=== PATIENT | female | born 1950 | race Caucasian/White ===

== ENCOUNTER 2017-10-19 04:32 | Inpatient (IN) | payer MEDICARE, BC, SELFPAY ==
[2017-10-19] VITALS (28 sets, daily range): BP systolic 83–177; BP diastolic 57–99; PULSE 58–709; RESP 11–24; TEMP 36.1–36.9; O2SAT 95–100; BMI 28.4; BMI 27.6; BMI 27.7
--- NOTE | 2017-10-19 04:47 | RAD_ITS ---
STUDY: X-RAY CHEST REASON FOR EXAM: Female, 67 years old. SOB TECHNIQUE: Single frontal view of the chest. COMPARISON: None. FINDINGS: The lungs are clear and expanded. There is no demonstrated pleural abnormality. Normal size heart. Normal mediastinum and dimitrios. Normal visualized pulmonary arteries. Normal visualized aortic arch and descending thoracic aorta. Normal visualized thoracic spine. Normal visualized ribs, clavicles, and shoulders. There is no demonstrated abnormality of the visualized soft tissue structures of the upper abdomen. RAD/Chest 1 View (Portable) IMPRESSION: Normal x-ray examination of the chest. Electronically Signed: Marecll Cordon MD at 5:18 EDT Tel , Service support ,
--- NOTE | 2017-10-19 04:47 | EKG12_ITS ---
Test Reason : CP Blood Pressure : / mmHG Vent. Rate : 129 BPM Atrial Rate : 312 BPM P-R Int : 000 ms QRS Dur : 098 ms QT Int : 286 ms P-R-T Axes : 000 067 -49 degrees QTc Int : 418 ms Atrial flutter with variable A-V block Nonspecific ST and T wave abnormality Abnormal ECG Confirmed by WANG KNIGHT, QUETA ([id number]), commercial production editor KIP GARCIA ([id number]) on 10/24/2017 3:16:19 PM Referred By: CARLOS Confirmed By:QUETA PIÑA MD
[2017-10-19] MEDS: dilTIAZem 25 MG/5 ML Vial 20 MG IV BOLUS ×3 (04:54→14:45)
[2017-10-19 05:08] LABS: Absolute Lymphocyte Count 2.34 X10^3/ul (0.83-4.51); Absolute Neutrophil Count 2.5 X10^3/uL (2.0-7.7); Basophil# 0.06 X10^3/uL; Basophil% 1.1 % (0-1); Eosinophil# 0.17 X10^3/uL; Hematocrit 43.1 % (37-47); Hemoglobin 14.5 g/dl (12.0-15.0); Lymphocyte # 2.34 X10^3/ul (4.0); Lymphocyte % 41.2 % (19-41); Mean Corp Hgb Conc 33.6 g/gl (32-36); Mean Corpuscular Hgb 31.9 pg (27.0-32.0); Mean Corpuscular Volume 94.7 fL (81-99); Mean Platelet Vol. 10.5 fl (6.2-12.0); Monocyte# 0.63 X10^3/uL; Monocyte% 11.1 % (0-10); Neutrophil # 2.47 X10^3/uL (2.7-7.7); Neutrophil % 43.4 % (47-70); POSITIVE COUNT NO; POSITIVE DIFFERENTIAL NO; POSITIVE MORPHOLOGY NO; Platelet Count 212 K/mm3 (150-450); RBC Distribution Width CV 13.4 % (11.6-14.6); RBC Distribution Width SD 44.5 fl (35.1-43.9); Red Blood Count 4.55 M/mm3 (4.2-5.4); White Blood Count 5.7 K/mm3 (4.4-11.0)
[2017-10-19] MEDS: Aspirin 81 MG TAB.CHEW 324 MG PO (05:11)
[2017-10-19 05:22] LABS: Anion Gap 9 (5-15); BUN 19 mg/dL (7-18); BUN/Creat Ratio 19.6 RATIO (10-20); Calcium,Total 9.1 mg/dL (8.5-10.1); Chloride 110 mmol/L (98-107); Creatinine, Serum 0.97 mg/dL (0.55-1.02); EST Glomerular Filtration Rate 61 mL/min (>60); Est Glom Filt Rate - Afr Amer 74 mL/min (>60); Estimated Creatinine Clearance 52.03 ml/min; Glucose 130 mg/dL (74-106); Potassium 3.9 mmol/L (3.5-5.1); Sodium Level 144 mmol/L (136-145)
--- NOTE | 2017-10-19 05:40 | ED.DCSUM_ITS ---
- ER Visit Summary Date of Service: 10/19/17 Chief Complaint: Chest pain History of Present Illness: The patient is a 67 F with a history of hypertension and palpitations who presents with chest pains and palpitations. She woke about an hour before presentation here with a sensation of palpitations and her heart racing. She did feel short of breath. She had a mild chest discomfort more of a tightness. She reports nausea without vomiting. No diaphoresis. He has had palpitations before for which she takes atenolol but no history of dysrhythmia atrial fibrillation atrial flutter. Physical Examination: Initial heart rate 140 Moist mucous membranes Heart irregularly irregular and tachycardic Lungs are clear without rales rhonchi or wheezes Abdomen soft 2+ radial pulses extremities nontender without edema Alert Test Results: EKG shows atrial flutter with variable conduction at a rate of 129. Repeat EKG shows atrial flutter with variable conduction at a rate of 106. Laboratory studies unremarkable with a negative troponin. Chest x-ray shows no acute process, normal. Emergency Department Course and Treatment: Patient was given aspirin. She was given IV Cardizem. On reevaluation her heart rate is 90-100. She was discussed with the hospitalist. She will be admitted for further workup and management. Treatment Plan: [] Disposition: Admit Impression: Atrial flutter with variable conduction and rapid ventricular rate This note was generated with [employer] dictation software. It may contain incorrect words, spelling, and punctuation that were not noted in review of the chart prior to signing ED Disposition - Plan for ED Patient: Chief Complaint: Chest Pain Referrals: Skye Caruso MD [Primary Care Provider] -
--- NOTE | 2017-10-19 05:51 | EKG12_ITS ---
Test Reason : REPEAT Blood Pressure : / mmHG Vent. Rate : 106 BPM Atrial Rate : 153 BPM P-R Int : 000 ms QRS Dur : 092 ms QT Int : 350 ms P-R-T Axes : 000 054 -15 degrees QTc Int : 464 ms Atrial fibrillation / flutter with premature ventricular or aberrantly conducted complexes Abnormal ECG Confirmed by WANG KNIGHT, QUETA ([id number]), editorial manager KIP GARCIA ([id number]) on 10/24/2017 3:23:33 PM Referred By: CARLOS Confirmed By:QUETA PIÑA MD
[2017-10-19] MEDS: Metoprolol Tartrate 5 MG/5 ML Vial IV ×3 (06:32→06:54)
[2017-10-19] MEDS: Rivaroxaban 20 MG Tablet PO (06:36)
--- NOTE | 2017-10-19 06:45 | PCM.HP.STD ---
Problem List (1) New-onset atrial fib with RVR Status: Acute History of Present Illness Date of Admission: 10/19/17 Chief Complaint: New-onset atrial fib with RVR The patient is a 67 year old F was seen in the emergency room at [facility] with a chief complaint of severe palpitations after waking at approximately 3 AM this morning. Patient said that she had a sharp discomfort in the middle of her chest, it did not radiate into her neck jaw or arm. Patient denied any shortness of breath. When the patient arrived in the emergency room, she was in atrial fibrillation with an uncontrolled ventricular response at 140, she was given 1 dose of Cardizem IV 20 mg with some slowing of her heart rate. EKG revealed atrial fibrillation without evidence of ischemic changes, chest x-ray showed no evidence of congestive heart failure. Labs were obtained, white blood cell count was normal, BUN was 19, glucose is 130, and troponin was 0.02. Cardiology was contacted, they advised administering IV Toprol 5 mg ?3 and placing the patient on a increased dose of atenolol when she is admitted to the floor. 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 Lives: Spouse/ Significant Other Smoking Status: Former smoker Tobacco Use: Non-smoker Alcohol: None Drugs: None - *Family History Maternal History Items: No pertinent history Paternal History Items: Cancer - prostate Review of Systems Constitutional: Denies: Anorexia, Chills, Fever, Night Sweats, Malaise, Weakness, Weight Change Eyes: Denies: Blurred vision, Cataracts, Conjunctivae Inflammation, Double vision, Drainage, Eyelid Inflammation, Redness HEENT: Denies: Difficulty Hearing, Difficulty Swallowing, Dysphasia, Ear Pain, Eye Pain, Hearing Changes, Nasal bleeding, Nasal Congestion, Post Nasal Drip Cardiovascular: Reports: Palpitations. Denies: Chest Pain, Claudication, Chest Pressure, Chest Tightness, Edema, Heaviness, Light Headedness, Orthopnea Respiratory: Denies: Cough, Hemoptysis, Pleuritic Pain, Shortness of Breath, Shortness of breath at rest, Shortness of breath upon exertion, Sputum production Gastrointestinal: Denies: Abdominal Pain, Constipation, Diarrhea, Hematemesis, Hematochezia, Nausea, Melena, Vomiting Genitourinary: Denies: Dysuria, Frequency, Hematuria, Hesitancy, Urgency Gynecological: Denies: Breast symptoms Musculoskeletal: Denies: Back Pain, Foot Pain, Hand Pain, Joint Pain, Joint stiffness, Joint swelling, Joint Tenderness, Leg Pain Skin: Denies: Dryness, Pruritis, Rash Neurological: Denies: Blurred vision, Double vision, Slurred speech, Difficulty swallowing, Focal weakness, Numbness, Tingling Psychiatric: Denies: Anxiety, Depression, Homicidal Ideations, Suicidal Ideations Endocrine: Denies: Change in Body Habitus, Heat/ Cold Intolerance, Polydipsia, Polyuria Hematologic/ Lymphatic: Denies: Adenopathy, Anemia, Easy Bruising, Easy Bleeding, Petechiae, Purpura VTE Information - Inpt Only VTE Present on Admission: No VTE Mechan Device Prophylaxis: None VTE Pharm Prophylaxis ordered?: No Reason prophylaxis not ordered:: Medical Contraindication - patient will be placed on Xarelto Patient Problems: Active and Suspected Problems New-onset atrial fib with RVR (Acute) - Physical Exam General: Alert, Oriented x3, Cooperative, No apparent distress, Well developed, Well nourished HEENT: Atraumatic, PERRLA, EOMI, Normocephalic Oral: Moist Mucosa Neck: Supple, No JVD, Negative Carotid Bruits, No Nuchal Rigidity, Trachea Midline, Thyroid Normal Size and Texture Lungs: Clear to auscultation, Normal air movement, No rhonchi, No wheeze, No rales Cardiovascular: No murmurs, PMI Normal, Irregular Rate, No rub noted Abdomen: Bowel Sounds Present, Soft, Non Tender, Non-Distended, No hernias noted Extremities: No clubbing, No cyanosis, No edema, Capillary Refill Less than 3 Seconds Skin: No rashes, No breakdown Musculoskeletal: No Tenderness to Palpation of Joints or Extremities, No Muscle Wasting Neurological: Cranial nerves II-XII grossly intact, Neuro grossly intact, Sensory exam intact to light touch and pain, Coordination normal Psych/Mental Status: Normal Affect, Appropriate, Alert and oriented to time, place, person, mood and affect Vital Signs Temp Pulse Resp BP Pulse Ox 98.5 F 128 H 12 159/98 H 99 10/19/17 06:11 10/19/17 06:11 10/19/17 06:11 10/19/17 06:11 10/19/17 06:11 Assessment/Plan Active and Suspected Problems New-onset atrial fib with RVR (Acute) #1 new onset atrial fibrillation with RVR-patient will be admitted to PCU, atenolol will be increased to 50 mg daily-patient took a dose of 37.5 mg of atenolol before she came in the ER early this morning-patient will be given IV metoprolol in the emergency room prior to admission to PCU, she will be placed on Xarelto 20 mg daily, she will be seen by cardiology, she will have an echocardiogram. #2 hypertension Code Visit Inpatient E&M: 17113 Init Hosp L3
--- NOTE | 2017-10-19 06:54 | HP.PCM_ITS ---
Problem List (1) New-onset atrial fib with RVR Status: Acute History of Present Illness Date of Admission: 10/19/17 Chief Complaint: New-onset atrial fib with RVR The patient is a 67 year old F was seen in the emergency room at [facility] with a chief complaint of severe palpitations after waking at approximately 3 AM this morning. Patient said that she had a sharp discomfort in the middle of her chest, it did not radiate into her neck jaw or arm. Patient denied any shortness of breath. When the patient arrived in the emergency room, she was in atrial fibrillation with an uncontrolled ventricular response at 140, she was given 1 dose of Cardizem IV 20 mg with some slowing of her heart rate. EKG revealed atrial fibrillation without evidence of ischemic changes, chest x-ray showed no evidence of congestive heart failure. Labs were obtained, white blood cell count was normal, BUN was 19, glucose is 130, and troponin was 0.02. Cardiology was contacted, they advised administering IV Toprol 5 mg ?3 and placing the patient on a increased dose of atenolol when she is admitted to the floor. 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 Lives: Spouse/ Significant Other Smoking Status: Former smoker Tobacco Use: Non-smoker Alcohol: None Drugs: None - *Family History Maternal History Items: No pertinent history Paternal History Items: Cancer - prostate Review of Systems Constitutional: Denies: Anorexia, Chills, Fever, Night Sweats, Malaise, Weakness , Weight Change Eyes: Denies: Blurred vision, Cataracts, Conjunctivae Inflammation, Double vision, Drainage, Eyelid Inflammation, Redness HEENT: Denies: Difficulty Hearing, Difficulty Swallowing, Dysphasia, Ear Pain, Eye Pain, Hearing Changes, Nasal bleeding, Nasal Congestion, Post Nasal Drip Cardiovascular: Reports: Palpitations. Denies: Chest Pain, Claudication, Chest Pressure, Chest Tightness, Edema, Heaviness, Light Headedness, Orthopnea Respiratory: Denies: Cough, Hemoptysis, Pleuritic Pain, Shortness of Breath, Shortness of breath at rest, Shortness of breath upon exertion, Sputum production Gastrointestinal: Denies: Abdominal Pain, Constipation, Diarrhea, Hematemesis, Hematochezia, Nausea, Melena, Vomiting Genitourinary: Denies: Dysuria, Frequency, Hematuria, Hesitancy, Urgency Gynecological: Denies: Breast symptoms Musculoskeletal: Denies: Back Pain, Foot Pain, Hand Pain, Joint Pain, Joint stiffness, Joint swelling, Joint Tenderness, Leg Pain Skin: Denies: Dryness, Pruritis, Rash Neurological: Denies: Blurred vision, Double vision, Slurred speech, Difficulty swallowing, Focal weakness, Numbness, Tingling Psychiatric: Denies: Anxiety, Depression, Homicidal Ideations, Suicidal Ideations Endocrine: Denies: Change in Body Habitus, Heat/ Cold Intolerance, Polydipsia, Polyuria Hematologic/ Lymphatic: Denies: Adenopathy, Anemia, Easy Bruising, Easy Bleeding , Petechiae, Purpura VTE Information - Inpt Only VTE Present on Admission: No VTE Mechan Device Prophylaxis: None VTE Pharm Prophylaxis ordered?: No Reason prophylaxis not ordered:: Medical Contraindication - patient will be placed on Xarelto Patient Problems: Active and Suspected Problems New-onset atrial fib with RVR (Acute) - Physical Exam General: Alert, Oriented x3, Cooperative, No apparent distress, Well developed, Well nourished HEENT: Atraumatic, PERRLA, EOMI, Normocephalic Oral: Moist Mucosa Neck: Supple, No JVD, Negative Carotid Bruits, No Nuchal Rigidity, Trachea Midline, Thyroid Normal Size and Texture Lungs: Clear to auscultation, Normal air movement, No rhonchi, No wheeze, No rales Cardiovascular: No murmurs, PMI Normal, Irregular Rate, No rub noted Abdomen: Bowel Sounds Present, Soft, Non Tender, Non-Distended, No hernias noted Extremities: No clubbing, No cyanosis, No edema, Capillary Refill Less than 3 Seconds Skin: No rashes, No breakdown Musculoskeletal: No Tenderness to Palpation of Joints or Extremities, No Muscle Wasting Neurological: Cranial nerves II-XII grossly intact, Neuro grossly intact, Sensory exam intact to light touch and pain, Coordination normal Psych/Mental Status: Normal Affect, Appropriate, Alert and oriented to time, place, person, mood and affect Vital Signs Temp Pulse Resp BP Pulse Ox 98.5 F 128 H 12 159/98 H 99 10/19/17 06:11 10/19/17 06:11 10/19/17 06:11 10/19/17 06:11 10/19/17 06:11 Assessment/Plan Active and Suspected Problems New-onset atrial fib with RVR (Acute) #1 new onset atrial fibrillation with RVR-patient will be admitted to PCU, atenolol will be increased to 50 mg daily-patient took a dose of 37.5 mg of atenolol before she came in the ER early this morning-patient will be given IV metoprolol in the emergency room prior to admission to PCU, she will be placed on Xarelto 20 mg daily, she will be seen by cardiology, she will have an echocardiogram. #2 hypertension Code Visit Inpatient E&M: 41588 Init Hosp L3
--- NOTE | 2017-10-19 07:28 | CON.PCM_ITS ---
Reason for Consult Date of Consultation: 10/19/17 Reason for Consultation: Rapid heart rate. History of Present Illness: The patient is a 67 year old F with no previous cardiac history other than possibly hypertension who presented to the emergency room today after she woke up with palpitations. She has been under tremendous amount of stress at home due to family issues. In the emergency room she was noted to be in atrial fibrillation with rapid ventricular response rate she was administered intravenous Cardizem and I was called for further input. She denied any chest heaviness suggestive of angina has not had any previous episodes of palpitations and no dizziness or diaphoresis. She recently saw her primary care physician who increased the dose of her atenolol. She has been otherwise doing well. She has had no neck arm or jaw discomfort suggest angina. At this time she does not really feel her palpitations as much. 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 Denies: Chest Discomfort, Shortness of Breath, Orthopnea, PND, Peripheral Edema, Lightheadedness, Dizziness, Near Syncope, Syncope Respiratory: Denies: Cough, Sputum Production, Hemoptysis Gastrointestinal: Denies: Hematemesis, Hematochezia, Melena Genitourinary: Denies: Dysuria, Hematuria Skin: Denies: Rash Subjectve: Pleasant lady in no apparent distress. Objective: Vital Signs Temp Pulse Resp BP Pulse Ox 98.5 F 127 H 14 149/90 H 99 10/19/17 06:11 10/19/17 06:54 10/19/17 06:54 10/19/17 06:54 10/19/17 06:54 Oxygen Flow Rate (L/min) 2 Oxygen Delivery Method Nasal Cannula General: Awake, Alert, Oriented x 3 HEENT: PERRL, EOMI, Sclera Non Icteric Neck: Supple, Good ROM, No Lymph Node Enlargement Lungs: Clear to auscultation Cardiovascular: Irregular Rhythm, Normal S1, Normal S2, No Murmurs, No Rubs, No Gallops Vascular: No Carotid Bruits, Normal Femoral Pulses, Normal Radial Pulses, Normal Dorsalis Pedal Pulse, Normal Posterior Tibial Pulses Abdomen: Bowel Sounds Present, Soft, Non Tender, No HSM, No Organomegaly Extremities: No Cyanosis, No Clubbing, No edema Neurological: No Focal Motor or Sensory Deficit Rhythm: EKG: Atrial fibrillation with rapid ventricular response rate. Assessment/Plan 1. Atrial fibrillation with rapid ventricular response rate-probably recent onset. She presents with palpitations and is noted to be in atrial for ablation with rapid ventricular response rate. My recommendation would be for us to slow her down with intravenous Cardizem or metoprolol and to resume her atenolol at a higher dose. An echocardiogram should be performed to assess her left ventricular function. Cardiac enzymes should also be obtained. Depending on her response to the above increase dose further recommendations will be made. She may be a candidate for early cardioversion via a MADELEINE guided approach. I have discussed the above with her and her and they understand and agreed to proceed. Thank you for allowing me to participate in the care of your patient. Please don't hesitate to call if any issues arise
[2017-10-19] MEDS: Atenolol 50 MG Tablet PO (08:44)
--- NOTE | 2017-10-19 09:23 | PN_ITS ---
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 She also complained of discomfort in the substernal area and there was no radiation of the pain and she denied any diaphoresis or shortness of breath. EKG in the emergency room showed atrial fibrillation with rapid ventricular response at 140 bpm. She was given a 20 mg bolus of Cardizem with some improvement in the rate. Vital signs at presentation to the emergency room were temperature 98.5, pulse rate 140, blood pressure 162/88, respiratory rate 14 and she was 98% saturated on room air. CBC was unremarkable. Potassium was 3.9 and the BUN was 19 with a creatinine of 0.97. Random blood sugar was 130. Troponin was less than 0.02. Chest x-ray showed pulmonary vascular congestion with cephalization but no pleural effusions and no infiltrates. She was admitted to a monitored bed and started and Atenolol was increased to 50 mg daily. She was started on Xarelto. Consult was ordered with Dr. Thapa. Dr. Thapa recommended we increase the atenolol as tolerated and use intravenous Cardizem and Lopressor to slow her down. Depending on her response she may be a candidate for early cardioversion if MADELEINE shows no clot in the left atrial appendage. Current heart rate is still in the 120s. Blood pressure is 138/89 and the respiratory rate is 11 with a pulse ox of 98% on room air. Has been taking Ambien at bedtime for 15-20 years. Admits to increased stress recently. Has never had AF in past but has irregular heart beat. Denies CP, SOB today. No lightheadedness. Has never been on an SSRI or other medication to treat anxiety or depression. Has never seen a SW, psychologist or psychiatrist. - Physical Exam General: Alert, Oriented x3, Cooperative, No apparent distress HEENT: Atraumatic, PERRLA, EOMI Oral: Moist Mucosa Neck: Supple, No JVD, Negative Carotid Bruits, No Nodes, Trachea Midline, - - Brisk carotid upstroke with good pulse volume Lungs: Clear to auscultation, Normal air movement Cardiovascular: Normal S1, Normal S2, No murmurs, Irregular Rate - Current heart rate is 130., No rub noted, No Gallop, Tachycardic Abdomen: Bowel Sounds Present, Soft, Non Tender, Non-Distended Extremities: No clubbing, No cyanosis, No edema, Capillary Refill Less than 3 Seconds, No Calf Tenderness, Peripheral Pulses Normal Skin: No rashes, No breakdown Neurological: Cranial nerves II-XII grossly intact, Neuro grossly intact Psych/Mental Status: Normal Affect, Appropriate Vital Signs Temp Pulse Resp BP Pulse Ox 96.9 F L 129 H 11 L 138/89 H 98 10/19/17 08:25 10/19/17 08:25 10/19/17 08:25 10/19/17 08:25 10/19/17 08:25 Oxygen Flow Rate (L/min) 2 Oxygen Delivery Method Room Air Weight: 166 lb 7.184 oz Body Mass Index (BMI) 27.6 Medical Necessity - Tobacco Use Smoking Status: Former smoker Tobacco Use: Non-smoker Assessment/Plan Active and Suspected Problems New-onset atrial fib with RVR (Acute) Impressions 1. new onset AF with RVR 2. HTN 3. anxiety 4. single kidney - donated to her HR remains uncontrolled Will give another 20 mg bolus of Cardizem and start Cardizem CD 120 mg daily. Check a mag and supplement the potassium to keep it at 4 or above. continue xarelto ECHO ordered. Code Visit Procedures: 59677 Prolonged InPt Service; first hour
[2017-10-19 10:19] LABS: AST(SGOT) 32 U/L (15-37); Alanine Aminotransfer ALT/SGPT 34 U/L (13-56); Albumin, Serum 3.8 g/dL (3.2-5.0); Alkaline Phosphatase 167 U/L (45-117); Bilirubin, Direct 0.13 mg/dL (0.00-0.30); Cholesterol 199 mg/dL (200); Globulin 3.6 g/dL (2.2-4.2); High Density Lipoprotein 61 mg/dL; Magnesium 1.9 mg/dL (1.6-2.6); Protein, Total 7.4 g/dL (6.4-8.2); Triglycerides 122 mg/dL; Very Low Density Lipoprotein 24 mg/dL (5-40)
[2017-10-19] MEDS: dilTIAZem CD 120 MG Capsule PO (10:55)
--- NOTE | 2017-10-19 10:55 | CASEMGMT ---
See DAE CM Assessment Link. DC Plan: Home. Pt is independent, is able to assist with driving if needed. -Has prescription coverage and uses [facility] pharmacy. Started on Xarelto- Pt has [facility] Part D prescription coverage . -Called to verify Xarelto coverage- spoke with ofelia [employer]ee rep. -Cost of medication is $417.77 but pt will have only $42.00 copay if uses preferred pharmacy ([facility] or [facility]) [facility] is not a [employer] preferred per rep. -Cost of Mail order 90 day supply is $116.00. -Xarelto savings card (first 30 days no cost) given to pt and explained along with above information. Pt states she has not used mail order service before, but will call [facility] on dc to begin process. No further questins. was in room and also has good understanding. Diane GARCIA RN ACM
[2017-10-19] MEDS: LORazepam 1 MG Tablet PO (11:53)
[2017-10-19] MEDS: 0.9% NaCl Peripheral Flush Adult/Peds IV (18:45)
[2017-10-19] MEDS: Zolpidem Tartrate 5 MG Tablet PO (22:41)
[2017-10-20] VITALS (12 sets, daily range): BP systolic 88–122; BP diastolic 43–71; PULSE 38–114; RESP 12–22; TEMP 36.7–37.1; O2SAT 95–99
[2017-10-20 05:18] LABS: Anion Gap 7 (5-15); BUN 22 mg/dL (7-18); BUN/Creat Ratio 22.3 RATIO (10-20); Chloride 110 mmol/L (98-107); Creatinine, Serum 0.99 mg/dL (0.55-1.02); EST Glomerular Filtration Rate 60 mL/min (>60); Est Glom Filt Rate - Afr Amer 72 mL/min (>60); Estimated Creatinine Clearance 50.98 ml/min; Glucose 99 mg/dL (74-106); Magnesium 2.2 mg/dL (1.6-2.6); Potassium 4.3 mmol/L (3.5-5.1); Sodium Level 142 mmol/L (136-145)
--- NOTE | 2017-10-20 05:55 | EKG12_ITS ---
Test Reason : PRE-OP Blood Pressure : / mmHG Vent. Rate : 051 BPM Atrial Rate : 051 BPM P-R Int : 152 ms QRS Dur : 086 ms QT Int : 426 ms P-R-T Axes : 055 051 034 degrees QTc Int : 392 ms Sinus bradycardia with sinus arrhythmia Otherwise normal ECG Confirmed by WANG KNIGHT, QUETA ([id number]), publishing editor KIP GARCIA ([id number] on 10/24/2017 3:48:33 PM Referred By: JOSE MIGUEL Confirmed By:QUETA PIÑA MD
--- NOTE | 2017-10-20 05:55 | ECHOD_ITS ---
Reason For Study: A. fib/flutter Procedure This was a 2D Doppler, Color Flow transthoracic echocardiogram. Exam performed portable in ICU/CCU. Left Ventricle Normal LV size. The estimated ejection fraction is 55 %. Normal diastology for age. No regional wall motion abnormalities noted. Right Ventricle Normal RV size. Normal systolic function. Atria The left atrium is mildly enlarged. Normal right atrium. Mitral Valve Mild diffuse mitral valve thickening. Mild (1+) eccentric mitral valve insufficiency. Tricuspid Valve Normal tricuspid valve. Mild (1+) tricuspid valve insufficiency. Aortic Valve Trisinus/trileaflet aortic valve. Pulmonic Valve Normal pulmonic valve. Great Vessels Normal aortic root. The pulmonary artery is normal size. Normal inferior vena cava. Pericardium/Pleural No pericardial effusion. MMode/2D Measurements & Calculations LVIDd: 4.5 cm IVSd: 0.85 cm Ao root diam: 2.5 cm LVIDs: 2.8 cm LVPWd: 0.88 cm LA dimension: 4.1 cm RVDd: 3.4 cm FS: 38.9 % LAV(MOD-bp): 65.0 ml EDV(MOD-sp4): 76.5 ml EDV(MOD-sp2): 67.9 ml LAV(MOD-bp) Indexed: 35.5 ml/m2 ESV(MOD-sp4): 27.6 ml EF(MOD-sp2): 54.4 % LAV(MOD-sp2): 54.1 ml EF(MOD-sp4): 64.0 % LAV(MOD-sp4): 71.8 ml SV(MOD-sp4): 48.9 ml SV(MOD-sp2): 37.0 ml LA A4 area: 23.2 cm2 RA A4 area: 19.0 cm2 Doppler Measurements & Calculations MV E max marcin: 57.3 cm/sec Lat Peak E' Marcin: 6.7 cm/sec Med Peak E' Maricn: 8.9 cm/sec MV A max marcin: 30.2 cm/sec E/E' lat: 8.6 E/E' med: 6.4 MV E/A: 1.9 Ao V2 max: 123.4 cm/sec LV V1 max: 94.3 cm/sec PA V2 max: 72.3 cm/sec Ao max P.1 mmHg LV V1 max P.6 mmHg TR max marcin: 251.0 cm/sec TR max P.5 mmHg Interpretation Summary Normal LV size. The estimated ejection fraction is 55 %. Normal diastology for age. Mild (1+) eccentric mitral valve insufficiency. Mild (1+) tricuspid valve insufficiency. Ordering Physician: Tanvir Rodriguez Referring Physician: Skye Caruso M.D. Performed By: Christina Sheth RDCS
--- NOTE | 2017-10-20 06:26 | PCM.PROGNOTE ---
Patient Problems: Active and Suspected Problems New-onset atrial fib with RVR (Acute) Subjective: Currently on atenolol 50 mg daily and a Cardizem infusion at 5 mg/h. Heart rate has been in the 40s the past few hours. It increases when she is awake. There is a high anxiety component here. She is on Xarelto for anticoagulation. The plan is for MADELEINE with cardioversion today. Blood pressure has ranged from 83/63 to 106/59 for the past 12 hours. Pulse ox is 95-97% on room air. Fluid balance is -242 since admission. All lab is personally reviewed. Electrolytes are within normal limits and the potassium is 4.3 today. BUN is 22 with a creatinine of 0.99. Serial troponins were negative. Lipid panel shows a total cholesterol of 199 with an LDL of 114 and HDL of 61. Triglycerides are 122. - Physical Exam Vital Signs Temp Pulse Resp BP Pulse Ox 98.2 F 47 L 14 106/59 L 95 10/20/17 04:13 10/20/17 06:00 10/20/17 06:00 10/20/17 06:00 10/20/17 06:00 Oxygen Flow Rate (L/min) 2 Oxygen Delivery Method Room Air Weight: 166 lb 7.184 oz Body Mass Index (BMI) 27.6 Intake and Output for Last 24 Hours 10/18/17 10/19/17 10/20/17 23:59 23:59 23:59 Intake Total 758.1 / 758.1 Output Total 1000 / 1000 Balance -241.9 / -241.9 Laboratory Tests Past 24 Hrs 10/19/17 10/19/17 10/19/17 09:50 09:50 13:40 Sodium Potassium Chloride Carbon Dioxide Anion Gap BUN Creatinine Estim Creat Clear Calc Est GFR (MDRD) Af Amer Est GFR (MDRD) Non-Af BUN/Creatinine Ratio Glucose Calcium Magnesium 1.9 Total Bilirubin 0.60 Direct Bilirubin 0.13 AST 32 ALT 34 Alkaline Phosphatase 167 H Troponin I < 0.02 < 0.02 Total Protein 7.4 Albumin 3.8 Globulin 3.6 Triglycerides 122 Cholesterol 199 LDL Cholesterol 114 VLDL Cholesterol 24 HDL Cholesterol 61 10/19/17 10/20/17 18:45 04:24 Sodium 142 Potassium 4.3 Chloride 110 H Carbon Dioxide 25.0 Anion Gap 7 BUN 22 H Creatinine 0.99 Estim Creat Clear Calc 50.98 Est GFR (MDRD) Af Amer 72 Est GFR (MDRD) Non-Af 60 BUN/Creatinine Ratio 22.3 H Glucose 99 Calcium 9.0 Magnesium 2.2 Total Bilirubin Direct Bilirubin AST ALT Alkaline Phosphatase Troponin I < 0.02 Total Protein Albumin Globulin Triglycerides Cholesterol LDL Cholesterol VLDL Cholesterol HDL Cholesterol Medical Necessity - Tobacco Use Smoking Status: Former smoker Tobacco Use: Non-smoker Assessment/Plan Active and Suspected Problems New-onset atrial fib with RVR (Acute)
--- NOTE | 2017-10-20 08:15 | NURSING ---
Echo in progress
--- NOTE | 2017-10-20 08:55 | PN.CARD_ITS ---
Subjectve: The patient was seen and evaluated. Appears to be doing well converted back to sinus rhythm with a postconversion pause. Objective: Vital Signs Temp Pulse Resp BP Pulse Ox 98.1 F 58 L 18 111/70 96 10/20/17 08:00 10/20/17 08:00 10/20/17 08:00 10/20/17 08:00 10/20/17 08:00 Oxygen Flow Rate (L/min) 2 Oxygen Delivery Method Room Air Weight: 166 lb 7.184 oz Body Mass Index (BMI) 27.6 Intake and Output for Last 24 Hours 10/18/17 10/19/17 10/20/17 23:59 23:59 23:59 Intake Total 758.1 / 758.1 Output Total 1000 / 1000 500 / 500 Balance -241.9 / -241.9 -500 / -500 General: Awake, Alert, Oriented x 3 HEENT: PERRL, EOMI, Sclera Non Icteric Neck: Supple, Good ROM, No Lymph Node Enlargement Lungs: Clear to auscultation Cardiovascular: Regular Rhythm, Normal S1, Normal S2, No Murmurs, No Rubs, No Gallops Vascular: No Carotid Bruits, Normal Femoral Pulses, Normal Radial Pulses, Normal Dorsalis Pedal Pulse, Normal Posterior Tibial Pulses Abdomen: Bowel Sounds Present, Soft, Non Tender, No HSM, No Organomegaly Extremities: No Cyanosis, No Clubbing, No edema Neurological: No Focal Motor or Sensory Deficit 10/19/17 09:50: Troponin I < 0.02 10/19/17 09:50: Magnesium 1.9, Total Bilirubin 0.60, Direct Bilirubin 0.13, Triglycerides 122, Cholesterol 199, LDL Cholesterol 114, VLDL Cholesterol 24, HDL Cholesterol 61 10/19/17 13:40: Troponin I < 0.02 10/19/17 18:45: Troponin I < 0.02 10/20/17 04:24: Sodium 142, Potassium 4.3, Chloride 110 H, Carbon Dioxide 25.0, Anion Gap 7, BUN 22 H, Creatinine 0.99, Est GFR (MDRD) Af Amer 72, Est GFR (MDRD ) Non-Af 60, BUN/Creatinine Ratio 22.3 H, Glucose 99, Calcium 9.0, Magnesium 2.2 Rhythm: EKG: ECHO: Stress Test: Cardiac Cath: PCI: CT Surgery: Holter monitor: EPS: PPM: CXR: Chest CT Scan: Medical Necessity - Tobacco Use Smoking Status: Former smoker Tobacco Use: Non-smoker Assessment/Plan 1. Atrial fibrillation with rapid ventricular response rate-probably recent onset. She did eventually convert to sinus rhythm last night. My recommendation at this time will be to continue anticoagulation for at least a month and also increase her atenolol to 50 mg a day. An echocardiogram should be performed to assess her left ventricular function. Depending on the findings further recommendations were made. An appointment will be scheduled for her to see me in the office in 2-4 weeks. Thank you for allowing me to participate in the care of your patient. Please don't hesitate to call if any issues arise
--- NOTE | 2017-10-20 09:15 | PCM.DC ---
- Discharge Diagnoses Current Active Problems: Current Active and Chronic Problems New-onset atrial fib with RVR (Acute) You will use the following diet at home:: No restrictions, Other - I would avoid caffeine.....it can increase the grequency of early beats and put you back into atrial fibrillation Your food should be the consistency of: Regular Your liquids should be the consistency of: Regular/Thin Discharge Activity: Return to Normal Activity Call your doctor if you observe: Fever of 101 or Higher, Shortness of breath, Dizziness, Fainting spells, Swelling in the ankles, Chest pain, - - nose bleeds, bleeding from the gums or anus, vomiting blood, large bruises Instructions: What Is Atrial Flutter/Atrial Fibrillation?, Your Body's Response to Anxiety, Treating Anxiety Disorders with Therapy, Understanding Anxiety Disorders Additional Instructions: All medications have side effects and the drug companies are required to list all side effects. Most people have minimal to no side effects with Sertraline or Xarelto. The number for the [facility] is [phone]. Simi Stanton is a good therapist and very empathetic.....I think you will like talking with her. Pending Tests on Discharge: none Allergies/Adverse Reactions: Allergies No Known Allergies Allergy (Verified 10/19/17 04:32) Medications to take at Discharge Zolpidem Tartrate [Ambien] 25 mg PO QHS PRN PRN 08/02/14 Acetaminophen [Tylenol] 500 - 1,000 mg PO Q6H PRN PRN 10/19/17 Bismuth Subsalicylate [Pepto-Bismol] 262 mg PO DAILY PRN 10/19/17 Fluticasone Propionate [Flonase Allergy Relief] 15.8 ml NS DAILY PRN 10/19/17 Atenolol [Tenormin (beta magnolia)] 50 mg PO DAILY #30 tab 10/20/17 Rivaroxaban [Xarelto] 20 mg PO DAILY #30 tab 10/20/17 Sertraline HCl [Zoloft] 50 mg PO DAILY #30 tab 10/20/17 The following prescriptions were given: Atenolol [Tenormin (beta magnolia)] 50 mg PO DAILY #30 tab Rivaroxaban [Xarelto] 20 mg PO DAILY #30 tab Sertraline HCl [Zoloft] 50 mg PO DAILY #30 tab Primary Care Physician: Skye Caruso MD [Primary Care Provider] - Please follow up with your Primary Care Physician in: 2-3 weeks Please Follow Up With: Sterling Thapa MD When: the office will call you to schedule and appt for 2-4 weeks Proposed Discharge Date: 10/20/17
[2017-10-20] MEDS: Rivaroxaban 20 MG Tablet PO (09:23)
[2017-10-20] MEDS: Atenolol 50 MG Tablet PO (09:25)
--- NOTE | 2017-10-20 09:27 | DCINST_ITS ---
- Discharge Diagnoses Current Active Problems: Current Active and Chronic Problems New-onset atrial fib with RVR (Acute) You will use the following diet at home:: No restrictions, Other - I would avoid caffeine.....it can increase the grequency of early beats and put you back into atrial fibrillation Your food should be the consistency of: Regular Your liquids should be the consistency of: Regular/Thin Discharge Activity: Return to Normal Activity Call your doctor if you observe: Fever of 101 or Higher, Shortness of breath, Dizziness, Fainting spells, Swelling in the ankles, Chest pain, - - nose bleeds , bleeding from the gums or anus, vomiting blood, large bruises Instructions: What Is Atrial Flutter/Atrial Fibrillation?, Your Body's Response to Anxiety, Treating Anxiety Disorders with Therapy, Understanding Anxiety Disorders Additional Instructions: All medications have side effects and the drug companies are required to list all side effects. Most people have minimal to no side effects with Sertraline or Xarelto. The number for the [facility] is [phone]. Simi Stanton is a good therapist and very empathetic.....I think you will like talking with her. Pending Tests on Discharge: none Allergies/Adverse Reactions: Allergies No Known Allergies Allergy (Verified 10/19/17 04:32) Medications to take at Discharge Zolpidem Tartrate [Ambien] 25 mg PO QHS PRN PRN 08/02/14 Acetaminophen [Tylenol] 500 - 1,000 mg PO Q6H PRN PRN 10/19/17 Bismuth Subsalicylate [Pepto-Bismol] 262 mg PO DAILY PRN 10/19/17 Fluticasone Propionate [Flonase Allergy Relief] 15.8 ml NS DAILY PRN 10/19/17 Atenolol [Tenormin (beta magnolia)] 50 mg PO DAILY #30 tab 10/20/17 Rivaroxaban [Xarelto] 20 mg PO DAILY #30 tab 10/20/17 Sertraline HCl [Zoloft] 50 mg PO DAILY #30 tab 10/20/17 The following prescriptions were given: Atenolol [Tenormin (beta magnolia)] 50 mg PO DAILY #30 tab Rivaroxaban [Xarelto] 20 mg PO DAILY #30 tab Sertraline HCl [Zoloft] 50 mg PO DAILY #30 tab Primary Care Physician: Skye Caruso MD [Primary Care Provider] - Please follow up with your Primary Care Physician in: 2-3 weeks Please Follow Up With: Sterling Thapa MD When: the office will call you to schedule and appt for 2-4 weeks Proposed Discharge Date: 10/20/17
--- NOTE | 2017-10-20 09:30 | PCM.DC.SUM ---
Discharge Date and Diagnosis Date of Admission: 10/19/17 Date of Discharge: 10/20/17 - Primary Discharge Diagnosis Active and Suspected Problems New-onset atrial fib with RVR (Acute) - Secondary Discharge Diagnosis Chronic Problems Single kidney (Chronic) Insomnia (Chronic) Anxiety (Chronic) Hospital Course and Treatment Imaging Results: 10/20/17 05:55 Echo Complete [ECHO] AM (NON MEDS) Clinical Impression(s) from Imaging Studies Chest X-Ray 10/19/17 04:47 IMPRESSION: Normal x-ray examination of the chest. Electronically Signed: Marcell Cordon MD at 5:18 EDT Tel , Service support , Laboratory Tests 10/19/17 10/19/17 10/19/17 04:40 04:40 09:50 WBC 5.7 RBC 4.55 Hgb 14.5 Hct 43.1 MCV 94.7 MCH 31.9 MCHC 33.6 RDW 13.4 RDW Differential 44.5 H Plt Count 212 MPV 10.5 Immature Gran % (Auto) 0.200 Neut % (Auto) 43.4 L Lymph % (Auto) 41.2 H Kidder % (Auto) 11.1 H Eos % (Auto) 3.0 Baso % (Auto) 1.1 H Absolute Neuts (auto) 2.5 Absolute Lymphs (auto) 2.34 Total Counted Not Reportable Sodium 144 Potassium 3.9 Chloride 110 H Carbon Dioxide 25.0 Anion Gap 9 BUN 19 H Creatinine 0.97 Estim Creat Clear Calc 52.03 Est GFR (MDRD) Af Amer 74 Est GFR (MDRD) Non-Af 61 BUN/Creatinine Ratio 19.6 Glucose 130 H Calcium 9.1 Magnesium Total Bilirubin Direct Bilirubin AST ALT Alkaline Phosphatase Troponin I < 0.02 < 0.02 Total Protein Albumin Globulin Triglycerides Cholesterol LDL Cholesterol VLDL Cholesterol HDL Cholesterol 10/19/17 10/19/17 10/19/17 09:50 13:40 18:45 WBC RBC Hgb Hct MCV MCH MCHC RDW RDW Differential Plt Count MPV Immature Gran % (Auto) Neut % (Auto) Lymph % (Auto) Kidder % (Auto) Eos % (Auto) Baso % (Auto) Absolute Neuts (auto) Absolute Lymphs (auto) Total Counted Sodium Potassium Chloride Carbon Dioxide Anion Gap BUN Creatinine Estim Creat Clear Calc Est GFR (MDRD) Af Amer Est GFR (MDRD) Non-Af BUN/Creatinine Ratio Glucose Calcium Magnesium 1.9 Total Bilirubin 0.60 Direct Bilirubin 0.13 AST 32 ALT 34 Alkaline Phosphatase 167 H Troponin I < 0.02 < 0.02 Total Protein 7.4 Albumin 3.8 Globulin 3.6 Triglycerides 122 Cholesterol 199 LDL Cholesterol 114 VLDL Cholesterol 24 HDL Cholesterol 61 10/20/17 04:24 WBC RBC Hgb Hct MCV MCH MCHC RDW RDW Differential Plt Count MPV Immature Gran % (Auto) Neut % (Auto) Lymph % (Auto) Kidder % (Auto) Eos % (Auto) Baso % (Auto) Absolute Neuts (auto) Absolute Lymphs (auto) Total Counted Sodium 142 Potassium 4.3 Chloride 110 H Carbon Dioxide 25.0 Anion Gap 7 BUN 22 H Creatinine 0.99 Estim Creat Clear Calc 50.98 Est GFR (MDRD) Af Amer 72 Est GFR (MDRD) Non-Af 60 BUN/Creatinine Ratio 22.3 H Glucose 99 Calcium 9.0 Magnesium 2.2 Total Bilirubin Direct Bilirubin AST ALT Alkaline Phosphatase Troponin I Total Protein Albumin Globulin Triglycerides Cholesterol LDL Cholesterol VLDL Cholesterol HDL Cholesterol Dr. 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 She also complained of discomfort in the substernal area and there was no radiation of the pain. She denied any diaphoresis or shortness of breath. EKG in the emergency room showed atrial fibrillation with rapid ventricular response at 140 bpm. She denied any hx of AF in the past. She was given a 20 mg bolus of Cardizem with some improvement in the rate. Vital signs at presentation to the emergency room were temperature 98.5, pulse rate 140, blood pressure 162/88, respiratory rate 14 and she was 98% saturated on room air. CBC was unremarkable. Potassium was 3.9 and the BUN was 19 with a creatinine of 0.97. Random blood sugar was 130. Troponin was less than 0.02. Chest x-ray showed pulmonary vascular congestion with cephalization but no pleural effusions and no infiltrates. She was admitted to a monitored bed and Atenolol was increased to 50 mg daily. She was started on Xarelto. Consult was ordered with Dr. Thapa. An continuous infusion of Cardizem was started. She also received Digoxin when the HR remained increased even on a 15 mg/hr infusion of Cardizem. Dr. Thapa planned on a MADELEINE the following day with cardioversion if indicated. She converted to NSR during the night and the MADELEINE was cancelled. She was discharged home on Atenolol 50 mg daily, Xarelto 20 mg daily and Sertraline 50 mg daily. She is very anxious and we discussed treating her anxiety with both medication and counselling. She was very open during her hospital stay. She was given the number of the [facility]. She will follow up with Dr. Thapa in 2-[address] Caruso in 2-3 weeks. She will need an ECHO as an OP and also some type of evaluation for CAD. Vital signs at the time of discharge were temperature 98.2, pulse 57, blood pressure 122/64, respiratory rate 16 and she was 99% saturated on room air. - Physical Exam General: Alert, Oriented x3, Cooperative, No apparent distress HEENT: Atraumatic, PERRLA, EOMI Oral: Moist Mucosa Neck: Supple, No JVD, Negative Carotid Bruits, No Nodes, Trachea Midline, - - Brisk carotid upstroke with good pulse volume Lungs: Clear to auscultation, Normal air movement Cardiovascular: Normal S1, Normal S2, No murmurs, NSR with a normal HR. No rub noted, No Gallop. Abdomen: Bowel Sounds Present, Soft, Non Tender, Non-Distended Extremities: No clubbing, No cyanosis, No edema, Capillary Refill Less than 3 Seconds, No Calf Tenderness, Peripheral Pulses Normal Skin: No rashes, No breakdown Neurological: Cranial nerves II-XII grossly intact, Neuro grossly intact Psych/Mental Status: Normal Affect, Appropriate This note was generated with [employer] software. It may contain incorrect words, spelling, and punctuation that were not noted in checking the note before signing. Discharge Activity: Return to Normal Activity Call your doctor if you observe: Fever of 101 or Higher, Shortness of breath, Dizziness, Fainting spells, Swelling in the ankles, Chest pain, - - nose bleeds, bleeding from the gums or anus, vomiting blood, large bruises Home Medications: Medications to take at Discharge Zolpidem Tartrate [Ambien] 25 mg PO QHS PRN PRN 08/02/14 Acetaminophen [Tylenol] 500 - 1,000 mg PO Q6H PRN PRN 10/19/17 Bismuth Subsalicylate [Pepto-Bismol] 262 mg PO DAILY PRN 10/19/17 Fluticasone Propionate [Flonase Allergy Relief] 15.8 ml NS DAILY PRN 10/19/17 Atenolol [Tenormin (beta magnolia)] 50 mg PO DAILY #30 tab 10/20/17 Rivaroxaban [Xarelto] 20 mg PO DAILY #30 tab 10/20/17 Sertraline HCl [Zoloft] 50 mg PO DAILY #30 tab 10/20/17 Following Prescrptions Were Given to Patient: Atenolol [Tenormin (beta magnolia)] 50 mg PO DAILY #30 tab Rivaroxaban [Xarelto] 20 mg PO DAILY #30 tab Sertraline HCl [Zoloft] 50 mg PO DAILY #30 tab Primary Care Physician: Skye Caruso MD [Primary Care Provider] - Please follow up with your Primary Care Physician in: 2-3 weeks Please Follow Up With: Sterling Thapa MD When: the office will call you to schedule and appt for 2-4 weeks Patient Instructions: What Is Atrial Flutter/Atrial Fibrillation?, Your Body's Response to Anxiety, Treating Anxiety Disorders with Therapy, Understanding Anxiety Disorders Disposition: Home Minutes spent on discharge:: 35 Patient Condition:: Good Medical Necessity - Tobacco Use Smoking Status: Former smoker Tobacco Use: Non-smoker Meaningful Use Info Meaningful Use Diagnoses (Choose all that apply): None applicable Code Visit Inpatient E&M: 87031 Disch Hosp
== END 2017-10-20 10:35 | disposition home or self-care (01) | DRG 310 ==
LOC: ED 06:34 → ICU 06:40
PROVIDERS: Admitting Provider Internal Medicine; Emergency Provider Emergency Medicine; Family Provider Internal Medicine; PCP Internal Medicine; Visit Provider Internal Medicine
DX: I48.91 Unspecified atrial fibrillation (principal); I10 Essential (primary) hypertension; Z79.899 Other long term (current) drug therapy; Z87.891 Personal history of nicotine dependence; F41.9 Anxiety disorder, unspecified; Z90.5 Acquired absence of kidney
CPT/HCPCS: 71045; 80048; 80061; 80076; 83735; 84484; 85025; 93005; 93306; 99285; J7030; A4216

== ENCOUNTER → 2020-01-27 | Outpatient (CLI) | payer MEDICARE, BC, SELFPAY ==
[2019-06-20 09:45] VITALS: BMI 27.9
--- NOTE | 2020-01-27 10:34 | STE_ITS ---
Stress Results Protocol: Jb Protocol Maximum Predicted HR: 153 bpm Target HR: 130 bpm % Maximum Predicted HR: 103 % DurationHeart Rate Stage (mm:ss) (bpm) BP Comment baseline 81 164/78no chest pain stage 1 3:00 151 160/78no chest pain, mild shortness of breath stage 2 1:00 157 / moderate shortness of breath, no chest pain recovery 88 160/80shortness of breath resolved, no chest pain Stress Duration: 4:00 mm:ss Maximum Stress HR: 157 bpm Baseline Echocardiogram Findings Stress Echo Wall motion Data Resting WM Intermediate WM Stress WM Interpretation Summary Exercise stress echo. 69-year-old lady with a history of trans-hypertension anxiety and cardiac arrhythmia. Stress protocol: Resting EKG demonstrates normal sinus rhythm with a rate of 83 bpm normal intervals are noted resting blood pressure is 164/78 mmHg. The patient exercised according to regular Jb protocol for a total duration of 4 minutes. The maximum heart rate attained was 162 bpm which was 105% of max impacted heart rate the maximum workload was 7 metabolic equivalents. At rest nonspecific ST-T wave changes were noted. At peak exercise upsloping ST changes were noted in the inferior leads in leads II, III and aVF. The above did not denote ischemia. T wave inversions were noted in lead V6 which did not meet the criteria for ischemia. The peak blood pressure was 170/80 mmHg. Stress echocardiogram. Resting and stress echocardiographic images demonstrated an ejection fraction of 60% with a peak of 65% with no wall motion abnormalities present. The left atrium was mildly dilated. Conclusion: Normal stress echocardiogram with no EKG changes for ischemia at a moderate workload. Normal resting and stress echocardiographic images. Mild functional aerobic impairment. Ordering Physician: Sterling Thapa Referring Physician: Sterling Thapa Performed By: Lillian Carr, RDCS, RVT
== END | disposition home or self-care (01) ==
LOC: CVS 10:34
PROVIDERS: PCP Internal Medicine; Referring Provider Internal Medicine Cardiovascular Disease; Visit Provider Internal Medicine Cardiovascular Disease
DX: R06.02 Shortness of breath (principal); I10 Essential (primary) hypertension; I48.91 Unspecified atrial fibrillation; I48.92 Unspecified atrial flutter
CPT/HCPCS: 93017; 93350

== ENCOUNTER 2020-09-11 11:07 | Outpatient (RCR) | payer MEDICARE, BC, SELFPAY ==
[2019-06-20 09:45] VITALS: BMI 27.9
[2020-09-11] MEDS: COVID-19 VACC, MRNA(PFIZER)/PF 30 MCG/0.3 ML SYRINGE IM (14:11)
[2020-10-02] MEDS: COVID-19 VACC, MRNA(PFIZER)/PF 30 MCG/0.3 ML SYRINGE IM (13:58)
== END 2020-12-08 23:59 ==
LOC: IMMUN 11:07
PROVIDERS: PCP Internal Medicine; Visit Provider Family Medicine
DX: Z23 Encounter for immunization (principal)
CPT/HCPCS: 0001A; 0002A; 91300

== ENCOUNTER 2020-11-11 10:25 | Day surgery (SDC) | payer MEDICARE, BC, SELFPAY ==
[2020-10-08 09:44] VITALS: BMI 28.8
--- NOTE | 2020-11-04 13:45 | RAD_ITS ---
STUDY: X-RAY CHEST REASON FOR EXAM: Female, 70 years old. dyspnea on exertion TECHNIQUE: PA and lateral views of the chest. COMPARISON: 10/19/2017 FINDINGS: The lungs are clear and expanded. There is no demonstrated pleural abnormality. Normal size heart. Normal mediastinum and dimitrios. Normal visualized pulmonary arteries. Normal visualized aortic arch and descending thoracic aorta. Normal visualized thoracic spine. Normal visualized ribs, clavicles, and shoulders. There is no demonstrated abnormality of the visualized soft tissue structures of the upper abdomen. RAD/Chest PA and Lateral IMPRESSION: Normal x-ray examination of the chest. Electronically Signed: Jake Brar MD at 8:14 EDT Tel , Service support ,
[2020-11-04 15:12] LABS: Anion Gap 4 (5-15); BUN 28 mg/dL (7-18); Calcium,Total 9.2 mg/dL (8.5-10.1); Chloride 108 mmol/L (98-107); Creatinine, Serum 1.12 mg/dL (0.55-1.02); EST Glomerular Filtration Rate 51 mL/min (>60); Est Glom Filt Rate - Afr Amer 62 mL/min (>60); Glucose 131 mg/dL (74-106); Potassium 4.8 mmol/L (3.5-5.1); Sodium Level 139 mmol/L (136-145)
[2020-11-10 08:21] VITALS: BMI 28.8
--- NOTE | 2020-11-11 07:00 | HP_ITS ---
HPI HPI History of Present Illness Details: WINSTON OHARA, is a 70 F who presents to the office today for a follow- up visit. She is a lady with a history of hypertension, paroxysmal atrial fibrillation, single kidney who returns for follow-up visit. In October 2017 she had presented to the hospital with palpitations were noted to be in atrial flutter and converted to sinus rhythm she was placed on oral anticoagulation as well as atenolol. She says that occasionally she does feel that she has some irregular heartbeat. She thinks that these irregular beats are more common now that she was on the hydrochlorothiazide. Her potassium has been borderline at 3.5. EKG today demonstrates sinus rhythm with a rate of 62 bpm and no acute changes. She has had no dizziness or diaphoresis no near syncope or syncope she has been compliant with her medications. Exam demonstrates clear lung mata regular rate and rhythm and no pedal edema. Intake Vital Signs 10/08/20 Height 5 ft 5 in 10/08/20 Weight: 173 lb 10/08/20 BMI 28.8 10/08/20 BP 157/77 H 10/08/20 Respiration 16 10/08/20 Pulse 62 10/08/20 Pulse Oximetry (%) 97 Intake Visit Reasons: 1 Y FU (we r/s from 06/23) Allergies No Known Allergies Allergy (Verified 06/19/18 16:02) Medications Zolpidem Tartrate [Ambien] 25 mg PO QHS PRN PRN 08/02/14 [History Confirmed 10/08/20] Fluticasone Propionate [Flonase Allergy Relief] 15.8 ml NS DAILY PRN 10/19/17 [History Confirmed 10/08/20] rivaroxaban 20 mg tablet 20 mg PO DAILY #90 tab 11/17/17 [Rx Confirmed 10/08/20] acetaminophen 500 mg tablet 500 - 1,000 mg PO BID tab 06/20/19 [History Confirmed 10/08/20] flecainide 100 mg tablet 100 mg PO Q12H #60 tablet 09/30/20 [Rx Confirmed 10/08/20] atenolol 100 mg tablet 100 mg PO DAILY tablet 10/08/20 [History Confirmed 10/08/20] bismuth subsalicylate 262 mg tablet 2 tablet PO Q30-60M PRN 10/08/20 [History Confirmed 10/08/20] lisinopril 10 mg tablet 10 mg PO DAILY #90 tablet 10/08/20 [Rx Confirmed 10/08/20] Ejection fraction %: 60 to 64 PFSH Medical History Paroxysmal atrial flutter (Chronic 10/2017) Paroxysmal atrial fibrillation (Chronic 10/2017) Essential (primary) hypertension (Chronic) Single kidney (Chronic) Anxiety (Chronic) Insomnia (Chronic) Atrial fibrillation with RVR (Inactive) Surgical History History of colon surgery (Resolved) History of nephrectomy (Resolved) Hx of appendectomy (Resolved) Family History Mother Hypertension Father Hypertension Prostate cancer Leukemia Sister vein problem DVT (deep venous thrombosis) Hypertension Social History (Updated 10/08/20 @ 10:[address] Sterling Thapa MD) Smoking Status: Former smoker alcohol intake: never substance use type: does not use caffeine: Yes Type: coffee Number of servings: 4 what type of physical activity do you participate in: walking frequency: daily ROS Const Const: Negative for fatigue, weakness, headache(s), frequent falls, difficulty sleeping or excessive sweating Eyes Eyes: Negative for loss of peripheral vision, transient loss of vision, blurry vision, double vision or tunnel vision ENT ENT: Negative for headache(s), dizziness, Nosebleed/epistaxis or balance problems Cardio Chest Pain: No Palpitations: Yes feels like its: fast, skipping, thumping Edema: None Muscle aches with walking: None Resp Respiratory: Negative for SOB with activity, SOB at rest, SOB orthopnea\SOB lying down, Cough or paroxysmal nocturnal dyspnea GI GI: Negative nausea, vomiting, heartburn or black,tarry stools : Negative for hematuria Musc Musc: Positive for joint pain (left knee); negative for muscle aches/ myalgia, muscle weakness or balance problems Skin Skin: Negative non-healing lesions, rash or unusual bruising Neuro Neuro: Negative for dizziness, lightheadedness, near syncope, syncope, orthostatic symptoms, frequent falls, headache(s), weakness, blurry vision, double vision or lack of coordination Jaycob Hematologic/Lymphatic: Negative for easy bleeding or easy bruising Endo Endo: Negative for fatigue, excessive sweating or increased thirst/drinking Psych Psych: Negative for anxiety or depression Allergy Allergy/Immunology: Negative for hives, Negative for rash Cardiology Exam Const Appearance: cooperative, healthy appearing, no acute distress, well developed and well groomed Nutritional Appearance: average body habitus and well nourished Orientation: alert, awake and oriented x3 Head Head: normal to inspection, normocephalic and atraumatic Ears: hearing grossly normal bilaterally and external ears normal Nose: external nose normal, nares normal, nasal mucous membranes and turbinates normal, septum normal, no nasal discharge Face and Sinus: face symmetric Mouth: oral mucosae normal, tongue normal, oropharynx normal and moist mucous membranes Teeth and gingiva: dentition normal Throat: posterior oropharynx normal, tonsils normal and uvula midline Eyes General: appearance normal, both eyes and all related structures Eyelids: eyelids normal Conjunctivae: conjunctivae normal Pupils: PERRL, normal by confrontation and accommodation normal EOM: EOM intact bilaterally Neck Neck: normal visual inspection, trachea midline and no JVD JVD: +5 Carotids: normal carotid upstroke and bounding pulses Chest Chest inspection: normal inspection of the chest, symmetric chest movement and normal respiratory effort Auscultation: Bilateral: Clear to Auscultation Cardio Palpation: normal PMI Rate: regular rate Rhythm: regular rhythm Heart sounds: S1 normal, S2 normal and normal, physiologic split S2; negative rub, gallop or murmur GI GI: normal to inspection, soft, no hepatosplenomegaly and bowel sounds present Neuro General: alert, awake, oriented x3, gait normal, moves all extremities and no focal sensory deficit Skin Skin: no rashes or lesions noted Extremities Pulses: Normal: Right Femoral Pulse, Left Femoral Pulse, Right Dorsalis Pedis Pulse, Left Dorsalis Pedis Pulse, Right Posterior Tibial Pulse, Left Posterior Tibial Pulse, Right Radial Pulse, Left Radial Pulse Lower Extremity Edema: None: Bilateral Musculoskel Musculoskeletal: No joint tenderness Psych Psychological: normal affect Assessment & Plan 1. Paroxysmal atrial fibrillation I48.0 Plan She does have paroxysmal atrial fibrillation. I suspect that what she is having is normal premature ventricular complexes. I would suggest that we continue her atenolol at the same dose, continue the flecainide, and continue the Xarelto. Her last echocardiogram had demonstrated preserved ejection fraction. Orders Orders: 12 Lead EKG performed by [facility] Today 2. Essential (primary) hypertension I10 Plan Her blood pressure is suboptimally controlled at this time I would recommend that we discontinue the hydrochlorothiazide and substitute lisinopril 10 mg a day together with the atenolol. She will continue to monitor her blood pressure carefully. Hopefully this would also prevent any tendency towards hypokalemia. Orders Orders: 12 Lead EKG performed by [facility] Today 3. Preop cardiovascular exam Z01.810 Plan She tells me that she may need left knee surgery. She did have a stress echocardiogram in January 2020 where she exercised to 7 metabolic equivalents without any evidence of angina. Her ejection fraction went from 60 to 65%. I do not see a contraindication to her undergoing surgery at this time. Thank you for allowing me to participate in the care of your patient. Please don't hesitate to call if any issues arise. Plan Detail Other Orders Orders: 12 Lead EKG performed by [facility] Today I48.92, Z90.5 Other Medications New: lisinopril 10 mg PO DAILY 90 tabs 3RF Discontinued: hydrochlorothiazide Discontinued Reason: Order Changed 12.5 mg PO DAILY Follow Up 6 Months (mmm) Coding Level of Care Code Off vis,est,level 4 Diagnoses Paroxysmal atrial fibrillation I48.0 Essential (primary) hypertension I10 Preop cardiovascular exam Z01.810 Coding Level of Care Code Off vis,est,level 4 Diagnoses Paroxysmal atrial fibrillation I48.0 Essential (primary) hypertension I10 Preop cardiovascular exam Z01.810 Supplemental Info Supplemental Information Labs LDL Cholesterol 114 mg/dL (0-130) 10/19/17 HDL Cholesterol 61 mg/dL (40-) 10/19/17 Triglycerides 122 mg/dL (-199) 10/19/17 VLDL Cholesterol 24 mg/dL (5-40) 10/19/17 Diagnostics Electrocardiogram 10/08/20 Echocardiogram 10/20/17 Stress Echocardiogram 01/27/20 Chest X-Ray 10/19/17
--- NOTE | 2020-11-11 12:26 | PCM.OP.BLANK ---
Problems Associated Problem List Diagnoses (1) Persistent atrial fibrillation: Operative Report Date of Procedure: 11/11/20 DC cardioversion. 70-year-old lady with a history of persistent atrial fibrillation. The patient was brought to the cardiac catheterization lab in the postabsorptive nonsedated state. Informed consent was obtained. The patient was seen by Dr. Beltre of the critical care division. Anterior-posterior pads were applied. The patient was then administered 40 mg of intravenous propofol. 200 J of DC cardioversion energy were applied with prompt reversal to sinus rhythm. Patient tolerated the procedure well. Conclusion: Successful DC cardioversion to sinus rhythm. Continue anticoagulation. Continue beta-magnolia.
--- NOTE | 2020-11-11 14:09 | PRO.PCM_ITS ---
Procedure Report Date of Procedure: 11/11/20 CONSCIOUS SEDATION REPORT BRIEF HISTORY OF PRESENT ILLNESS: The patient is a 70-year-old female who presented to [facility] for an elective outpatient cardioversion due to underlying atrial fibrillation. The patient reports no PO intake since midnight. The patient does not have a history of obstructive sleep apnea. The patient reports a history of smoking, but denies COPD. The patient denies any recent constitutional symptoms such as fevers, chills, nausea or vomiting. The patient denies previous anesthetic complications. Patient's last ejection fraction was 55%. Patient did take her Xarelto prior to the procedure. Patient has never had a cardio[facility]. PHYSICAL EXAMINATION: VITAL SIGNS: Reviewed and were acceptable. GENERAL: The patient is a female, in no apparent distress, speaking in full sentences. HEENT: Normocephalic, atraumatic. Mucous membranes are moist and pink. Good mouth opening noted. Trachea is midline. Good neck mobility. MP III CHEST: S1, S2 irregularly irregular. No murmurs, rubs or gallops were noted. LUNGS: Clear to auscultation bilaterally without appreciable wheezes, rales or rhonchi. ABDOMEN: Soft, nontender, nondistended. Positive bowel sounds. EXTREMITIES: There is no clubbing, cyanosis or edema. ASA Class: II DESCRIPTION OF PROCEDURE: After confirmation of informed consent, the patient's anesthesia plan was reviewed in detail. Propofol was chosen. Risks and benefits were reviewed and the patient agreed to proceed. At 12:13 PM, the patient was given 40 mg of propofol. The patient achieved an appropriate level of sedation and received attempt synchronized cardioversion, at [address] Thapa at the bedside. This was successful in achieving normal sinus rhythm. Patient did have significant bradycardia initially after cardioversion, but this improved with time. The patient was monitored until 12:30 PM, at which time the patient reached their baseline mental status and function. The patient tolerated the procedure well.1 COMPLICATIONS: None ESTIMATED BLOOD LOSS: None RECOMMENDATIONS: Okay to recover in usual fashion. Procedures Pulmonary 9xxxx: Other Procedure See Report ([id number] minutes of conscious sedation)
== END 2020-11-11 13:25 | disposition home or self-care (01) ==
LOC: CLSP 10:26
PROVIDERS: PCP Internal Medicine; Referring Provider Internal Medicine Cardiovascular Disease; Visit Provider Internal Medicine Cardiovascular Disease
DX: I48.0 Paroxysmal atrial fibrillation (principal); I10 Essential (primary) hypertension; Z79.02 Long term (current) use of antithrombotics/antiplatelets; Z79.899 Other long term (current) drug therapy; Z87.891 Personal history of nicotine dependence
CPT/HCPCS: 36415; 71046; 80048; 92960; 93005; J7040; A4216

== ENCOUNTER → 2020-11-18 11:59 | Outpatient (CLI) | payer MEDICARE, BC, SELFPAY ==
[2020-11-10 08:21] VITALS: BMI 28.8
[2020-11-18 13:13] LABS: Anion Gap 5 (5-15); BUN 17 mg/dL (7-18); Chloride 115 mmol/L (98-107); Creatinine, Serum 0.89 mg/dL (0.55-1.02); EST Glomerular Filtration Rate 67 mL/min (>60); Est Glom Filt Rate - Afr Amer 81 mL/min (>60); Glucose 93 mg/dL (74-106); Potassium 4.3 mmol/L (3.5-5.1); Sodium Level 144 mmol/L (136-145)
[2020-11-18 13:23] LABS: BNP,B-Type NATRIURETIC PEPTIDE 426.9 pg/mL (0-100)
== END ==
PROVIDERS: PCP Internal Medicine; Referring Provider Nurse Practitioner Family; Visit Provider Nurse Practitioner Family
DX: I48.92 Unspecified atrial flutter (principal); I10 Essential (primary) hypertension; R06.00 Dyspnea, unspecified; Z90.5 Acquired absence of kidney
CPT/HCPCS: 36415; 80048; 83880

== ENCOUNTER → 2020-11-24 13:19 | Outpatient (CLI) | payer MEDICARE, BC, SELFPAY ==
[2020-11-18 13:04] VITALS: BMI 28.8
[2020-11-24 14:00] LABS: Anion Gap 5 (5-15); BUN 13 mg/dL (7-18); BUN/Creat Ratio 14.2 RATIO (10-20); Chloride 108 mmol/L (98-107); Creatinine, Serum 0.91 mg/dL (0.55-1.02); EST Glomerular Filtration Rate 65 mL/min (>60); Est Glom Filt Rate - Afr Amer 79 mL/min (>60); Glucose 136 mg/dL (74-106); Sodium Level 140 mmol/L (136-145)
== END ==
PROVIDERS: PCP Internal Medicine; Referring Provider Nurse Practitioner Family; Visit Provider Nurse Practitioner Family
DX: I10 Essential (primary) hypertension (principal); Z90.5 Acquired absence of kidney
CPT/HCPCS: 36415; 80048

== ENCOUNTER → 2021-01-19 13:18 | Outpatient (CLI) | payer MEDICARE, BC, SELFPAY ==
[2020-11-18 13:04] VITALS: BMI 28.8
--- NOTE | 2021-01-19 13:20 | CT_ITS ---
STUDY: CT SCAN LOWER EXTREMITY LEFT.[facility] protocol REASON FOR EXAM: Female, 70 years old. VARUS DEFORMITY,NOTELSEWHERE CLASSIFIED,L KNEE RADIATION DOSAGE (If Supplied By Facility): CTDIvol = ( 18.76 ) mGy, DLP = ( 1240.86 ) mGycm. Individualized dose optimization techniques were used for this CT.? TECHNIQUE: Multiple axial tomographic images of the left lower extremity was obtained without intravenous contrast administration. Coronal and sagittal reconstruction was obtained as well. COMPARISON: None. FINDINGS: Imaging of the left hip was performed. No significant abnormality is seen. There is a marked degree of joint space narrowing with the degenerative spur formation along the distal right femoral condyle and medial tibial plateau. Small joint effusion. CT/Extremity Lower without Contra IMPRESSION: Marked degree of osteoarthritis involving the medial compartment of knee joint with a small left pleural effusion. Small subchondral cysts are seen in the distal femur and proximal tibia. Electronically Signed: Se Castellon MD at 22:08 EDT , Service support ,
== END ==
PROVIDERS: PCP Internal Medicine; Referring Provider Specialist; Visit Provider Specialist
DX: M21.162 Varus deformity, not elsewhere classified, left knee (principal)
CPT/HCPCS: 73700

== ENCOUNTER 2021-02-03 12:26 | Observation (INO) | payer MEDICARE, BC, SELFPAY ==
[2020-11-18 13:04] VITALS: BMI 28.8
--- NOTE | 2021-01-19 04:53 | HP.PCM_ITS ---
History and Physical History and Physical [facility] Patient Name: Sandra Aquino : 1950 From: DEANNA ORTA PA-C DATE OF SURGERY: 02/03/2021 SCHEDULED PROCEDURE: left total knee arthroplasty HISTORY OF PRESENT ILLNESS: Dictating on a 70-year-old female who has been having ongoing pain for over 5 years with her left knee. Patient's pain is been constant, dull, aching, sharp, stabbing, sore. Pain is increased with going up and down stairs and walking. Patient has difficulty with activities of daily living including shopping as well as leisure activities. She has tripped/stumbled due to the knee pain. Patient's pain is located over the medial aspect of the knee. Pain can reach as high as a 4/10. She does have start up pain. Patient has attempted previous Visco supplementation injection in April 2020 with no relief. She has had previous cortisone injections with minimal relief and adverse reaction. She has attempted bracing with no relief. She has been on oral medications including Tylenol. She is unable to take anti-inflammatories as she is currently on Rivaroxaban and only has 1 kidney. 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 Patient denies any recent chest pain, shortness of breath, fevers chills. She is followed by acoustical installer Dr. Thapa. Patient is able to stop the Rivaroxaban 5 days prior to surgery. Patient has had a cardioversion on November 11, 2020. After failing conservative measures and discussing treatment options with Dr. Francis Mercer, the patient does wish to proceed with a left total knee arthr oplasty. REVIEW OF SYSTEMS: ROS: Const: Denies change in appetite, fever,or weight change. CV: Reports irregular heartbeat, but denies chest pain and heart murmur. Resp: Denies cough, pneumonia, shortness of breath, tuberculosis and wheezing. GI: Denies constipation, diarrhea, heartburn, nausea, rectal itching, bloody stools and vomiting. : Denies incontinence. Musculo: Reports leg swelling, but denies pain, trouble walking and weakness. Skin: Denies Raynaud's, history of shingles and tattoo. Neuro: Denies ambulatory dysfunction, dizziness, numbness/tingling and tremor. Psych: Denies anxiety, insomnia and stress. Jaycob/Lymph: Reports past transfusion, but denies anemia and bleeding/bruising tendency. Reviewed, no changes. PAST MEDICAL HISTORY: Advance Care Plan: Other Directive, POA Effective Date: 03/08/2017 Other Directive, LIVING WILL Effective Date: 03/08/2017 PMH: Medical Problems: Only Has One Kidney, A-Fib, Insomnia Accidents: Fracture - ARM A CHILD Surgical Hx: Kidney Stones - (08/2008) Twisted Bowel Repair - (2000) Kidney Donor - (2012) RIGHT Tooth Pulled And Pin Inserted - (01/2020) cardioversion - 11-11-20 Anesthesia Complications: None Assistive Devices: Glasses Reviewed and updated. SOCIAL HISTORY: SH: Marital: .Occupation: Not Currently Working.Work Status: Not Working Currently.Hand Dominance: Right-handed. Personal Habits: Cigarette Use: Former.Smokeless Tobacco: Never Used Smokeless Tobacco.E-Cigarette Use: Never used.Alcohol: Denies use.Drug Use: Denies Use.Enjoy Exercising: Exercises 1-3 X/Week. Reviewed and updated. VITALS: Ht: 64 Wt: 170lb Wt k.112 BMI: 29.2 BP: 134/68 Pulse: 57 Resp: 16 T: 97.6 T: 36.4C Pain Level: 2 ALLERGIES: No Known Drug Allergy MEDICATIONS: Ambien 5 mg 1 by mouth every night at bedtime as needed sleep, Atenolol 50 mg 1 by mouth every day, Vitamin D 2000 Unit 1 cap PO daily, Xarelto 20 mg 1po qday, Lasix 40 mg 1po qday PRE-OP EXAM: General appearance:NORMAL Other: Eyes: Conjunctivae and lids: NORMAL Pupils: ERR Ears, Nose, Mouth, and Throat: NORMAL Other: Inspection of lips, teeth and gums: NORMAL Other: Neck: Examination of neck: no masses noted. Respiratory: Assessment of respiratory effort: NORMAL Other: Auscultation of lungs: clear to auscultation no wheezes, rhonchi or rales. Cardiovascular: Auscultation of heart: regular rate and rhythm, no murmurs, gallops or rubs. Exam of carotid arteries: NORMAL Other: Gastrointestinal: Exam of abdomen: soft, nontender, nondistended bowel sounds present. PHYSICAL EXAMINATION: Patient does walk with an antalgic gait. Left knee is cool to touch without erythema. She has moderate effusion. She has tenderness to palpation along the medial joint line. She has crepitus with range of motion. Range of motion 0 extension to 114 flexion. She has pitting edema in the left lower extremity. Stable to varus/valgus stress test. Partially correctable varus alignment. IMAGING STUDIES: Previous x-rays of the left knee reveal varus alignment with medial joint space narrowing, subchondral sclerosis, osteophyte formation consistent with stage IV severe osteoarthritis. IMPRESSION: 1. Severe left knee osteoarthritis with varus deformity 2. Atrial fibrillation currently on Rivaroxaban 3. Single kidney 4. Insomnia PLAN: Dr. Francis Mrecer did discuss and review with the patient all treatment options including surgical versus nonsurgical options. Patient does wish to proceed with the above-stated procedure. Potential risks, benefits, and complications of the procedure were discussed in detail including but not limited to , infection, nerve and blood vessel damage, persistent pain, numbness, tingling, paresthesias, blood clot, pulmonary embolism, and requirement for possible further surgery. The patient expressed full understanding and has no further questions for the doctor. Patient does agree to proceed with the above-stated procedure and has signed the surgery consent form. We discussed the current risks associated with COVID 19. This does include the risk of exposure while in the hospital. Patient was reassured local hospitals have low infection rates and are taking all necessary precautions to avoid exposure to patients. In addition, we discussed strategies that can be used to help limit exposure including those that limit the patient's time in the hospital. Also using strategies to limit the patient's need for continued inpatient services after being discharged from the hospital. Patient was notified that we will need to comply with any screening or testing the hospital wishes to perform or that surgery may be delayed for any positive results. This dictation was created using voice recognition software. Phonetic and/or grammatical errors may exist. ___ I have re-examined the patient. There are no clinical changes since date of exam. ___ See progress notes for changes. ___ Dictated on admission Date: Time: Signature:
[2021-01-19 14:48] LABS: Absolute Lymphocyte Count 1.22 X10^3/uL (0.83-4.51); Absolute Neutrophil Count 3.2 X10^3/uL (2.0-7.7); Basophil# 0.04 X10^3/uL; Basophil% 0.8 % (0-1); Eosinophil# 0.14 X10^3/uL; Eosinophils% 2.7 % (0-5); Hematocrit 39.1 % (37-47); Hemoglobin 12.6 g/dL (12.0-15.0); Lymphocyte # 1.22 X10^3/ul (0.83-4.51); Lymphocyte % 23.9 % (19-41); Mean Corp Hgb Conc 32.2 g/dL (32-36); Mean Corpuscular Hgb 30.5 pg (27.0-32.0); Mean Corpuscular Volume 94.7 fL (81-99); Mean Platelet Vol. 10.1 fl (6.2-12.0); Monocyte% 9.8 % (0-10); NRBC Flagged by Analyzer 0 % (0-5); Neutrophil # 3.18 X10^3/uL (2.7-7.7); Neutrophil % 62.4 % (47-70); Platelet Count 192 K/mm3 (150-450); RBC Distribution Width CV 12.4 % (11.6-14.6); RBC Distribution Width SD 43.1 fl (35.1-43.9); Red Blood Count 4.13 M/mm3 (4.2-5.4); White Blood Count 5.1 K/mm3 (4.4-11.0)
[2021-01-19 15:11] LABS: Anion Gap 4 (5-15); BUN 13 mg/dL (7-18); BUN/Creat Ratio 14.8 RATIO (10-20); Calcium,Total 9.1 mg/dL (8.5-10.1); Chloride 112 mmol/L (98-107); Creatinine, Serum 0.88 mg/dL (0.55-1.02); EST Glomerular Filtration Rate 68 mL/min (>60); Est Glom Filt Rate - Afr Amer 82 mL/min (>60); Glucose 106 mg/dL (74-106); Sodium Level 143 mmol/L (136-145)
[2021-01-20 11:26] LABS: Magnesium 2.2 mg/dL (1.6-2.6)
[2021-01-26 15:34] LABS: Albumin, Serum 3.7 g/dL (3.2-5.0)
[2021-02-03] VITALS (14 sets, daily range): BP systolic 110–151; BP diastolic 52–97; PULSE 50–82; RESP 16–18; TEMP 36.2–36.7; O2SAT 96–100; BMI 28.6
--- NOTE | 2021-02-03 07:11 | OP.PCM_ITS ---
Report of Operation Date of Procedure: 02/03/21 Pre-Operative Diagnosis: Left knee primary osteoarthritis Post-Operative Diagnosis: Left knee primary osteoarthritis Surgery/Procedure Performed:: Left knee minimally invasive robotic assisted total knee replacement Description of Surgical Findings:: Stable knee with good patella tracking Surgeon: Francis Mercer transplant nurse: Abdon Henriquez Type of Anesthesia: Spinal Special Medications: 2 g Ancef, 2 g TXA lavage, 10 mg Decadron, joint cocktail (5 mg Duramorph, 30 mL of 0.5% Ropivicaine, 1000 units of epinephrine, 30 mg of Toradol) Specimen's removed: Bony cuts Estimated Blood Loss (mL): 75 Fluids Replaced: 1600 mL Description of Procedure: Implants used: 1. [place] size 2 triathlon cruciate retaining distal femoral press-fit component 2. [place] size 2 press-fit tritanium tibial baseplate 3. [place] X3 11 mm CS polyethylene 4. [place] X3 29 mm asymmetric patella Brief history operative indications: 70-year-old F with history of left knee osteoarthritis with radiographic findings with loss of joint space, osteophyte formation and subchondral sclerosis. Failed conservative measures as mentioned in the H&P. Discussion of total knee arthroplasty as well as risk and benefits were discussed the patient including but not limited to blood loss, DVTs, PEs, neurovascular damage, general risk of anesthesia including loss of life, and stiffness or instability were discussed with patient. Patient demonstrated understanding and was able to sign informed consent. Procedure: On the date of procedure patient's left lower extremity was marked in the p reoperative area. The patient was then taken back to the operating room where the patient was placed on the table in the supine position. All bony prominences were identified a well-padded. Anesthesia assumed control of the C-spine and airway and remained controlled throughout the remainder of the procedure. A tourniquet was placed on the left upper thigh and the leg was prepped in a sterile fashion. The surgeon then scrubbed at this time .Upon reentering the room left lower extremity was draped in a standard orthopedic fashion. A timeout was then called and everyone agreed upon the side, the site, the procedure to be performed, patient's identity and antibiotics given. Esmarch bandage was used to exsanguinate the extremity and the tourniquet was placed up to 250 mmHg with the knee in flexion. A midline skin incision was made and sharp dissection was taken down through skin subcutaneous tissue and fat. The standard medial parapatellar incision was made and the patella was subluxed laterally. An Appropriate deep MCL release was done and the fat pad was resected. Our attention was then directed to the patella. The patella was everted and a flat resection was made. The knee was then flexed up in 2 femoral pins were placed inside the incision and 2 tibial pins were placed outside the incision in the medial tibia bicortically. Once this was completed the 2 checkpoints in the femur and tibia were placed. Knee was then flexed up and the bony landmarks were registered. Once this was completed knee was taken through range of motion and manually stressed allowing us to a plan for an appropriate tibial cut. The robotic arm was brought into the field sterilely and checkpoint and saw were registered. Based on the patient's deformity the tibial cut was made in 3 degrees varus. At this time the tensioner was then placed in the joint and ligament tension was checked at 90 degrees and full extension. Based on the patient's ligamentous tension appropriate adjustments were made to the operative plan and ligament releases were done. Once we were happy with our operative plan with balanced flexion and extension gaps our attention was directed to the femur. The robot was brought into the field sterilely and registered. Posterior condylar cuts, anterior chamfer cuts and anterior cuts were appropriately made for a size 2 femur. When these were completed the saws were switched out in the distal femoral and posterior chamfer cuts were made. Protecting the soft tissue throughout this time. A size 2 tibial base plate was selected. the knee was flexed to 90 degrees and the soft tissues and posterior osteophytes were removed from the joint. 40 cc of the periarticular injection was injected into the posterior medial corner of the joint. The appropriate trials were then placed on the femur and tibia. A trial polyethylene was trialed to ensure proper balancing and stability of the knee. The appropriate tibial internal rotation was then marked with a bovie. Our attention was then directed to the patella. The lug holes were drilled and the patella trial was placed. Patellar tracking was checked and deemed appropriate. Once we were happy lug holes were drilled for the femur and trial components were removed. the tibia was subluxed and pinned into place and the keel was punched and drilled appropriately. Final components were verified and opened, and cement was mixed in a vacuum. [facility] Simplex cement was used. The wound was copiously irrigated with normal saline. When the cement was ready the components were impacted into place starting with the tibia, femur and finally cementing the patella. The trial poly component was placed and the knee was placed in full extension. All excess cement was removed in the process. Once the cement had cured the tracking, alignment and balance were verified and a size 11 mm CS polyethylene component was placed. Once the final components were placed a 3-minute dilute Betadine lavage was performed followed by an Irrisept lavage was performed and the wound was copiously irrigated with normal saline solution and the periarticular injection was given. The wound was closed in a layer ford fashion using #1 vicryl interrupted sutures for the arthrotomy, 2-0 interrupted Vicryl suture for the subcuticular layer and jorje for final skin closure. A sterile compressive dressing was then placed. The patient was then awakened from anesthesia, transferred to the [place] and transferred to the PACU for recovery. Post op plan DVT ppx: Patient will resume her Xarelto 20 mg daily tomorrow due to atrial fibrillation, thigh high compression stockings Follow up: in office in 2 weeks for wound check PT: to start POD #0 at hospital, outpatient PT should be arranged. My physician religious assistant was a vital part of this case. He was important in appropriate retraction during the case, and protection of soft tissues during bony cuts. His intimate knowledge of the case and my steps aided in safe and expedient completion of the procedure as well as appropriate position of the leg during the case. He was also vital in assisting with closure under my direct supervision. Due to the complexity of this case robotic arm was used to assist in the surgery to improve accuracy and clinical outcomes. Complications No intraoperative complications Admit VTE Documentation VTE Present on Admission: No VTE Mechan Device Prophylaxis: SCD's and Thigh High ANDI Hose VTE Pharm Prophylaxis ordered?: Yes
[2021-02-03] MEDS: Lactated Ringers 1,000 ML 100 ML IV (08:30)
[2021-02-03] MEDS: Gabapentin 600 MG Tablet PO (09:00)
[2021-02-03] MEDS: Acetaminophen 500 MG Tablet 1000 MG PO ×3 (09:00→21:13)
[2021-02-03 09:22] LABS: Bedside Glucose 99 mg/dL (70-110)
[2021-02-03] MEDS: Cefazolin 2 GM in 0.9% Normal Saline 100 ML IV (10:10)
[2021-02-03] MEDS: Lactated Ringers 1,000 ML 999 ML IV (12:00)
--- NOTE | 2021-02-03 12:20 | RAD_ITS ---
STUDY: X-RAY - LEFT KNEE REASON FOR EXAM: Postoperative evaluation of left total knee arthroplasty. TECHNIQUE: 2 view(s) of the knee. COMPARISON: CT images 01/19/2021. FINDINGS: There is a left total knee arthroplasty without evidence of complication. There is postoperative gas in the soft tissues and overlying skin jorje. RAD/Knee 1 or 2 Views IMPRESSION: Uncomplicated left total knee arthroplasty. Electronically Signed: David Villagran MD at 12:59 EDT Tel , Service support ,
[2021-02-03] MEDS: Lactated Ringers 1,000 ML 125 ML IV (12:45)
--- NOTE | 2021-02-03 13:36 | PCM.PN.HOSP ---
Subjective Subjective 70-year-old female presents for an elective left total knee repair. No issues to her health prior to surgery and is doing well now. Objective Data Objective Data Vital Signs: Vital Signs Temp Pulse Resp BP Pulse Ox 98.1 F 75 16 129/68 H 100 02/03/21 13:30 02/03/21 13:30 02/03/21 13:30 02/03/21 13:30 02/03/21 13:30 Oxygen Flow Rate (L/min) 6 Oxygen Delivery Method Simple Mask Weight: 167 lb 1.766 oz Body Mass Index (BMI) 28.6 Intake & Output: Intake and Output for Last 24 Hours 02/02/21 02/03/21 02/04/21 03:59 03:59 03:59 Intake Total 2334.5 / 2334.5 Balance 2334.5 / 2334.5 Lab / Micro Data Result Diagrams: 01/19/21 14:03 01/19/21 14:03 Labs: Laboratory Results - last 24 hr 02/03/21 08:24: POC Glucose 99 Micro: Microbiology 01/19/21 14:03 Swab (Method) Nasal Screen MRSA/MSSA - Final Radiography Diagnostic Testing: Radiology Impression Knee X-Ray 02/03/21 12:20 IMPRESSION: Uncomplicated left total knee arthroplasty. Electronically Signed: David Villagran MD at 12:59 EDT Tel , Service support , Physical Exam Const alert, oriented x3 and no apparent distress General Appearance: cooperative HEENT normocephalic and moist oral mucous membranes Eyes PERRL, EOMs intact bilaterally and conjunctivae normal Neck supple and no JVD Resp normal respiratory effort, no retractions, no use of accessory muscles and clear to auscultation bilaterally Auscultation: Negative for crackles, rales, rhonchi or wheezes Cardio regular rate, regular rhythm, S1 normal heart sound, S2 normal heart sound and no murmurs GI soft to palpation, non-tender and non-distended; Negative for hepatosplenomegaly Extremity no clubbing, cyanosis or edema Skin no rashes or lesions noted Skin Narrative: Dressing is in place Neuro no focal motor deficits and no sensory deficits noted Psych affect normal Appearance: appropriate Assessment & Plan Assessment/Plan (1) Status post total left knee replacement: PLAN: 1. Status post left total knee 02/03/2021 -Pain management per primary -Continue with Xarelto both for knee prophylaxis as well as her A. fib a flutter -PT/OT 2. A. fib/HTN/HLD -Blood pressure stable, continue with her atenolol -Continue with lisinopril and Lasix, monitor kidney function in the morning, will continue with IV fluids the meantime -Continue with Xarelto DVT: Xarelto Charges/Coding Visit Charges OBSV E&M: 05142 Subsequent observation care L2
[2021-02-03] MEDS: Famotidine 20 MG Tablet PO (14:33)
[2021-02-03] MEDS: proMETHazine 25 MG/ML Syringe 12.5 MG IM (16:28)
[2021-02-03] MEDS: Cefazolin 1 GM/50 ML BAG IV (17:31)
[2021-02-03] MEDS: Senna/Docusate Sodium 1 Tablet 2 TABLET PO (21:13)
[2021-02-03] MEDS: Zolpidem Tartrate 5 MG Tablet PO (23:03)
[2021-02-04] MEDS: Cefazolin 1 GM/50 ML BAG IV (02:29)
[2021-02-04 02:38] VITALS: BP 113/54; PULSE 59; RESP 18; TEMP 36.4; O2SAT 100
[2021-02-04] MEDS: oxyCODONE 5 MG Tablet PO ×3 (04:02→12:38)
[2021-02-04] MEDS: Acetaminophen 500 MG Tablet 1000 MG PO (05:25)
[2021-02-04 06:33] LABS: Hematocrit 37.3 % (37-47); Hemoglobin 11.7 g/dL (12.0-15.0); Mean Corp Hgb Conc 31.4 g/dL (32-36); Mean Corpuscular Hgb 31.2 pg (27.0-32.0); Mean Corpuscular Volume 99.5 fL (81-99); Mean Platelet Vol. 10.6 fl (6.2-12.0); Platelet Count 160 K/mm3 (150-450); RBC Distribution Width CV 12.9 % (11.6-14.6); RBC Distribution Width SD 46.5 fl (35.1-43.9); Red Blood Count 3.75 M/mm3 (4.2-5.4); White Blood Count 7.8 K/mm3 (4.4-11.0)
[2021-02-04 07:06] LABS: Anion Gap 9 (5-15); BUN 13 mg/dL (7-18); BUN/Creat Ratio 19.6 RATIO (10-20); Calcium,Total 8.5 mg/dL (8.5-10.1); Chloride 107 mmol/L (98-107); Creatinine, Serum 0.66 mg/dL (0.55-1.02); EST Glomerular Filtration Rate 94 mL/min (>60); Est Glom Filt Rate - Afr Amer 114 mL/min (>60); Glucose 80 mg/dL (74-106); Potassium 4.8 mmol/L (3.5-5.1); Sodium Level 139 mmol/L (136-145)
[2021-02-04 07:20] VITALS: O2SAT 94
[2021-02-04 07:52] VITALS: BP 105/46; PULSE 52; RESP 16; TEMP 36.5; O2SAT 98
[2021-02-04] MEDS: Senna/Docusate Sodium 1 Tablet 2 TABLET PO (08:14)
[2021-02-04] MEDS: Rivaroxaban 20 MG Tablet PO (08:14)
[2021-02-04] MEDS: Famotidine 20 MG Tablet PO (08:14)
[2021-02-04] MEDS: Cholecalciferol (VIT D3) 25 MCG TABLET (1,000 UNITS) PO (08:14)
--- NOTE | 2021-02-04 10:46 | PN.ORTHO_ITS ---
Subjective Subjective The patient was sitting in bedside chair eating breakfast upon examination. Patient denies any chest pain, shortness of breath, dizziness, lightheadedness, nausea or vomiting, or calf pain. Pain is controlled on medications. No adverse overnight events. Patient has finished therapy. She did well. She does have soreness in the knee. Objective Data Objective Data Vital Signs: Vital Signs Temp Pulse Resp BP Pulse Ox 97.7 F L 52 L 16 105/46 L 98 02/04/21 07:52 02/04/21 07:52 02/04/21 07:52 02/04/21 07:52 02/04/21 07:52 Oxygen Flow Rate (L/min) 6 Oxygen Delivery Method Room Air Weight: 75.8 kg Body Mass Index (BMI) 28.6 Intake & Output: Intake and Output for Last 24 Hours 02/02/21 02/03/21 02/04/21 23:59 23:59 23:59 Intake Total 3300.34 / 3500.34 815.25 / 815.25 Output Total 100 / 100 Balance 3200.34 / 3400.34 815.25 / 815.25 Lab / Micro Data Result Diagrams: 02/04/21 05:44 02/04/21 05:44 Labs: Laboratory Results - last 24 hr 02/04/21 05:44: WBC 7.8, RBC 3.75 L, Hgb 11.7 L, Hct 37.3, MCV 99.5 H, MCH 31.2, MCHC 31.4 L, RDW Std Deviation 46.5 H, RDW Coeff of Priscilla 12.9, Plt Count 160, MPV 10.6 02/04/21 05:44: Sodium 139, Potassium 4.8, Chloride 107, Carbon Dioxide 23.0, Anion Gap 9, BUN 13, Creatinine 0.66, Estim Creat Clear Calc 46.50, Est GFR (MDRD) Af Amer 114, Est GFR (MDRD) Non-Af 94, BUN/Creatinine Ratio 19.6, Glucose 80, Calcium 8.5 Micro: Microbiology 01/19/21 14:03 Swab (Method) Nasal Screen MRSA/MSSA - Final Radiography Diagnostic Testing: Radiology Impression Knee X-Ray 02/03/21 12:20 IMPRESSION: Uncomplicated left total knee arthroplasty. Electronically Signed: David Villagran MD at 12:59 EDT Tel , Service support , Physical Exam Narrative Vital signs stable and afebrile. Patient is able to plantarflex and dorsiflex actively. Sensation is intact to light touch to saphenous, sural, superficial and deep peroneal, and tibial distribution. Minimal drainage with dressing is clean dry and intact. Negative Homans bilaterally, negative signs and symptoms of DVT. Const alert, oriented x3 and no apparent distress Assessment & Plan Assessment/Plan (1) Status post total left knee replacement: PLAN: 1. S/P left total knee arthroplasty POD #1 2. Continue Pain Medications: Tylenol and oxycodone 3. DVT Prophylaxis: Patient will resume her Xarelto as prescribed by outside provider. 4. PT/OT: Weightbearing as tolerated 5. H & H: 11.7/37.3, asymptomatic. Postoperative anemia secondary to acute blood loss from surgery without any intra operative complications. 6. Continue postoperative medical management per medicine 7. Encouraged Incentive Spirometry 8. Disposition: Plan will be for discharge home this afternoon as long as patient is medically stable, pain is well controlled, and tolerates therapy. Prescriptions will be E scribed to [facility] pharmacy. Patient will follow-up per postop instructions. She does have outpatient physical therapy established. I have reviewed the [place] Automated Rx Reporting System (OARRS) report for this patient for refill pattern and other prescriber involvement as part of the appropriate surveillance for the provision of acute and chronic controlled medications. The report was requested and reviewed on the date of this entry and was considered in the prescribing process.
--- NOTE | 2021-02-04 10:50 | DCINST_ITS ---
Discharge Instructions Diet Discharge Diet: No restrictions Activity Discharge Activity: May Not Drive (while taking narcotic pain medications.) May shower in (days): 1 (Please turn dressing away from water. Okay to get wet as long as dressing is intact to skin.) Ice area for (Minutes): 20 (Every 1-2 hours while awake. Please place barrier between the skin and ice pack.) Weight Bearing Status: Weight bearing as tolerated Keep extremity elevated above heart level: Operative Extremity Dressing / Incision Call your doctor if your incision/area has: Continuous Slow Oozing, Sudden Increased Bleeding, Increased Pain/ Swelling, Increased Redness and Foul Smelling Discharge Call your doctor if you observe: Fever of 101 or Higher, Coldness, Increased Pain, Numbness or Tingling, Change in Color, Shortness of breath, Chest pain, Calf discomfort and Uncontrolled pain Remove Dressing in: 4 days (Okay to remove dressing on February 08, 2021) Additional Dressing/Incision Instructions:: Follow [facility] Post-op Instructions. Once postoperative dressing has been removed only use gentle soap and water over the incision. Do not use any ointments, Neosporin, salves, alcohol pads over the incision for 6 weeks postoperatively. Do not submerge underwater for 6 weeks postoperatively. Continue with ANDI hose/elastic stockings for 2 weeks postoperatively. May remove at nighttime but needs to be placed back on the leg during the day. Do NOT use alcohol with narcotic pain medication. Do NOT make important decisions while taking narcotic medication. If you have problems with taking your medication (rash, itching, nausea, etc.) call the off ice at once. Follow Up Care Test Results: Test results from this visit will be discussed in further detail at your follow-up appointment, if applicable. Discharge Plan Admission Admit Date/Time: 02/03/21 12:26 Attending Provider: Francis Mercer Primary Care Provider: Skye Caruso Consulting Providers: Nathanael Izquierdo Discharge Orders/Prescriptions Prescriptions: New acetaminophen 500 mg Tablet 1,000 mg PO Q8 Qty: 0 RF: 0 oxycodone 5 mg Tablet 5 - 10 mg PO Q4H PRN PRN (Reason: Pain Score 4-10) 5 Days Qty: 60 RF: 0 sennosides-docusate sodium [Stool Softener-Stimulant Laxat] 8.6-50 mg Tablet 2 tab PO BID Qty: 14 RF: 0 Continued rivaroxaban 20 mg tablet 20 mg PO DAILY Qty: 90 RF: 3 Pepto-Bismol 262 mg tablet 2 tablet PO Q30-60M PRN (Reason: Diarrhea) RF: 0 zolpidem 5 MG tablet 5 mg PO QHS PRN PRN (Reason: Sleep) RF: 0 fluticasone propionate 9.9 ML spray,suspension 15.8 ml NS DAILY PRN (Reason: ALLERGIES) RF: 0 cholecalciferol (vitamin D3) [Vitamin D3] 25 mcg (1,000 unit) Tablet 25 mcg PO DAILY RF: 0 lisinopril 5 mg tablet 10 mg PO DAILY RF: 0 atenolol 100 mg tablet 50 mg PO DAILY RF: 0 furosemide [Lasix] 40 mg tablet 40 mg PO DAILY PRN (Reason: edema) Qty: 1 RF: 0 Discontinued acetaminophen 500 mg tablet 500 - 1,000 mg PO BID RF: 0 Referrals / Follow Up: Physical,Therapy [Other] - 02/08/21 1:30 pm Skye Caruso MD [Primary Care Provider] - Abdon Henriquez PA-C [PHYSICIAN POST TENSIONING IRONWORKER HELPER] - 02/18/21 2:45 pm Disposition Disposition (needs filled in before D/C Order can be placed): Home, Self Care
[2021-02-04 11:08] VITALS: BP 100/41; PULSE 59; RESP 16; TEMP 36.7; O2SAT 99
--- NOTE | 2021-02-04 11:40 | CASEMGMT ---
DAE ALICEA Face to Face with patient for initial transition planning/care coordination assessment. RN NIXON introduced self and role at [facility]. Patient sitting in chair, alert and oriented. Patient willing to participate in assessment and is able to answer all questions appropriately. Care providers, pharmacy, and demographics verified. Patient wishes to discharge home and is setup with [facility] for outpatient therapy. Patient states she has no further needs or concerns at this time. CM to follow for discharge planning needs that may arise. PCP: [facility] Special[facility]: frank Mercer; Alanis outdoor illuminating engineer Preferred Pharmacy: [facility] Insurance: Benita ANTON Prescription Benefit: yes Living Will/HPOA: yes, Georges Aquino LNOK: Living Arrangements: Patient lives with in a 2 story home with bed and bath on second floor. Patient states she normally is able to ambulate the stairs and has no concerns. Transportation: DME/C: Patient states she has shower chair, cane, and walker at home. Patient is scheduled for outpatient therapy at [facility] for Monday. Disposition Plan: Patient to discharge home with outpatient therapy, family support, and follow-up plans in place. Bri GARCIA, RN, CM
--- NOTE | 2021-02-04 12:45 | CASEMGMT ---
DAE CM in to complete ROBLES form with patient. DAE ALICEA explained ROBLES form, patient voiced understanding. Patient signed ROBLES form and filed in chart. Patient provided with copy of signed ROBLES form. Patient had no further questions or concerns at this time.
== END 2021-02-04 13:57 | disposition home or self-care (01) ==
LOC: SDC 12:27 → MS3 12:27
PROVIDERS: Anesthesiology; Admitting Provider Specialist; PCP Internal Medicine; Referring Provider Specialist; Visit Provider Specialist
PROC: 0SRD0JZ Replacement of Left Knee Joint with Synthetic Substitute, Open Approach (ICD-10-PCS; CPT 27447; principal; 2021-02-03 09:30)
DX: M17.12 Unilateral primary osteoarthritis, left knee (principal); I10 Essential (primary) hypertension; E78.5 Hyperlipidemia, unspecified; I48.92 Unspecified atrial flutter; I48.19 Other persistent atrial fibrillation; Z79.01 Long term (current) use of anticoagulants; Z52.4 Kidney donor; Z87.891 Personal history of nicotine dependence; Z90.5 Acquired absence of kidney; Z79.899 Other long term (current) drug therapy
CPT/HCPCS: 01402; 27447; 64447; S2900; 36415; 73560; 80048; 82040; 82962; 83735; 85025; 85027; 87081; 97110; 97116; 97162; 97166; 97535; 99251; C1776; J7120; G0463; J2405

== ENCOUNTER 2021-02-06 14:20 | Inpatient (IN) | payer MEDICARE, BC, SELFPAY ==
[2021-02-03 14:18] VITALS: BMI 28.6
[2021-02-06] VITALS (34 sets, daily range): BP systolic 89–162; BP diastolic 53–100; PULSE 86–152; RESP 13–31; TEMP 36.7–37.5; O2SAT 92–100; BMI 28.6; BMI 29.2
--- NOTE | 2021-02-06 14:54 | EDS_ITS ---
HPI History of Present Illness Chief Complaint: Palpitations Informant: patient and spouse/S.O. Onset/Context/Timing Onset: Today Activity at onset: sudden Timing: Continuous Worsened By: Nothing Relieved By: Nothing Narrative Prior Similar Symptoms: Yes Recent Illness/Hospitalization: Yes PE Risk Factors: Positive for Recent Immob[facility] Medical History Anxiety Arthritis Atrial fibrillation with RVR Cardiology follow-up encounter Essential (primary) hypertension Former smoker History of diverticulitis History of edema History of irregular heartbeat History of pain when walking Hx of thyroid cyst Hypertension Insomnia Normal stress echocardiogram Paroxysmal atrial fibrillation (10/2017) Paroxysmal atrial flutter (10/2017) Persistent atrial fibrillation (11/02/20) Post-menopausal Single kidney Wears glasses Home Medications zolpidem 5 mg PO QHS PRN PRN 08/02/14 [History Last Taken 02/02/21] fluticasone propionate 15.8 ml NS DAILY PRN 10/19/17 [History Last Taken 02/02/21] rivaroxaban 20 mg tablet 20 mg PO DAILY #90 tab 11/17/17 [Rx Last Taken 01/28/21] bismuth subsalicylate 262 mg tablet 2 tablet PO Q30-60M PRN 10/08/20 [History Last Taken 02/02/21] atenolol 100 mg tablet 50 mg PO DAILY tab 11/17/20 [History Last Taken 02/03/21 06:00] furosemide 40 mg tablet 40 mg PO DAILY PRN #1 tab 11/25/20 [Rx Last Taken 02/02/21] cholecalciferol (vitamin D3) [Vitamin D3] 50 mcg PO DAILY 01/20/21 [History Last Taken 02/02/21] lisinopril 10 mg PO DAILY 01/20/21 [History Last Taken 02/03/21 06:00] acetaminophen 1,000 mg PO Q8 #0 tab 02/04/21 [Rx Last Taken Unknown] oxycodone 5 - 10 mg PO Q4H PRN PRN 5 Days #60 tab 02/04/21 [Rx Last Taken Unknown] sennosides-docusate sodium [Stool Softener-Stimulant Laxat] 2 tab PO BID #14 tab 02/04/21 [Rx Last Taken Unknown] Allergy/AdvReac Type Severity Reaction Status Date / Time flecainide Allergy Left Verified 02/06/21 14:21 Bundle Branch Block/BUE tingling/leg weakness aspirin [ASA] AdvReac ONLY HAS Verified 02/06/21 14:21 ONE KIDNEY, TOLD TO AVOID cortisone AdvReac CHEST HOT Verified 02/06/21 14:21 & WEIRD NSAIDS (Non-Steroidal AdvReac ONLY HAS Verified 02/06/21 14:21 Anti-Inflamma ONE KIDNEY, TOLD TO AVOID Family History Mother Hypertension Father Hypertension Prostate cancer Leukemia Sister vein problem DVT (deep venous thrombosis) Hypertension Surgical History History of cardioversion (11/11/20) History of colon surgery History of nephrectomy Hx of appendectomy Hx of cystoscopy Social History Smoking Status: Former smoker alcohol intake: never substance use type: does not use caffeine: Yes Type: coffee Number of servings: 4 what type of physical activity do you participate in: walking frequency: daily ROS ROS ED ROS Narrative Denies recent denies recent illness. Review of Systems ROS Unobtainable: Denies due to encephalopathy Constitutional Constitutional ED: Denies chills or fever(s) Eyes Eyes: Denies none ENT ENT ED: Denies ear pain or sore throat Cardiovascular Cardiovascular: Reports palpitations and racing heartbeat; Denies as per HPI or chest pain Respiratory/Chest Respiratory/Chest: Denies cough or dyspnea Gastrointestinal Gastrointestinal: Denies abdominal pain, diarrhea, nausea or vomiting Genitourinary Genitourinary ED: Denies dysuria or hematuria Musculoskeletal Musculoskeletal: Denies myalgias Integumentary Denies rash Neurologic Neurologic: Denies headache(s) Psychiatric Psychiatric: Denies depression Endocrine Endocrinology: Denies polyuria Hematologic/Lymphatic Hematologic/Lymphatic: Denies easy bruising Allergic/Immunologic Allergic/Immunologic ED: Denies urticaria EXAM Physical Exam Narrative Exam Narrative: 12-year-old female vital signs stable she is in A. fib RVR with a rate of about 150. Lungs are clear. Abdomen soft nontender. Moving all 4 extremities. Status post left knee replacement surgery with swelling of her left lower extremity. Const Vital Signs: 02/06/21 14:21 02/06/21 14:32 02/06/21 15:12 Temperature 99.3 F H Temperature Source Temporal Pulse Rate 150 H 152 H Respiratory Rate 18 31 H Blood Pressure 117/75 162/100 H Blood Pressure Mean 89 120 Pulse Ox 98 97 97 Oxygen Delivery Method Room Air Room Air Room Air 02/06/21 15:19 02/06/21 15:21 02/06/21 15:22 Temperature Temperature Source Pulse Rate 139 H 123 H 101 H Respiratory Rate 16 Blood Pressure 127/69 H Blood Pressure Mean 88 Pulse Ox 98 Oxygen Delivery Method Room Air 02/06/21 15:23 02/06/21 15:24 02/06/21 15:47 Temperature Temperature Source Pulse Rate 86 111 H 136 H Respiratory Rate Blood Pressure Blood Pressure Mean Pulse Ox Oxygen Delivery Method 02/06/21 15:52 02/06/21 15:55 02/06/21 16:00 Temperature Temperature Source Pulse Rate 130 H 99 114 H Respiratory Rate 27 H Blood Pressure 110/68 Blood Pressure Mean 82 Pulse Ox 99 Oxygen Delivery Method Room Air 02/06/21 16:07 Temperature Temperature Source Pulse Rate 88 Respiratory Rate Blood Pressure Blood Pressure Mean Pulse Ox Oxygen Delivery Method Positive well nourished and well developed; Negative for unkempt General Appearance ED: well developed; Negative for unkempt HEENT Reports moist mucous membranes normocephalic and atraumatic; Negative for trauma or tenderness Eyes PERRL and EOMs intact bilaterally Neck no lymphadenopathy, supple and no JVD General: Negative for tenderness Chest Wall inspection of chest normal and palpation of chest normal Resp normal respiratory effort and clear to auscultation bilaterally Effort and Inspection: respiratory distress Cardio Rate: tachycardic Rhythm: abnormal rhythm GI normal to inspection, nondistended, normoactive bowel sounds, soft to palpation, non-tender, non-distended and no masses; Negative for hepatosplenomegaly Auscultation: Negative for hyperactive bowel sounds Extremity Extremity Narrative: Status post left knee surgery left lower extremities. Neuro oriented x3 and CN's II-XII intact bilaterally Sensorium / Orientation: awake, alert, oriented to person, oriented to place and oriented to time Motor Exam: strength 5/5 throughout Psych mental status grossly normal Appearance: Negative for unkempt Skin no rashes or lesions noted and no wounds MDM MDM MDM Narrative Medical decision making narrative: -year-old female history of A. fib cardioverted earlier this year. Had left knee replacement surgery done earlier this week. She held her Xarelto for 5 days preoperatively. Is been restarted. She denies any chest pain. No significant shortness of breath. Patient treated with Cardizem bolus her heart rate was still in the 130s and she remained in A. fib. She was given a second dose of 20 IV and we started on a Cardizem drip. I spoke to the hospitalist about admission. Otherwise on repeat exam the patient is doing well. Lab Data Attestation: I reviewed the patient's lab results. Lab results narrative: White count 8.9. Hemoglobin 11. INR 1.9. She is not on Coumadin. Anion gap 8. Creatinine 0.8. High-sensitivity troponin 63. Labs: Laboratory Results - last 24 hr 02/06/21 02/06/21 02/06/21 14:45 14:45 15:20 WBC 8.9 RBC 3.59 L Hgb 11.2 L Hct 34.2 L MCV 95.3 MCH 31.2 MCHC 32.7 RDW Std Deviation 44.5 H RDW Coeff of Priscilla 12.8 Plt Count 209 MPV 10.5 Immature Gran % (Auto) 0.300 Neut % (Auto) 78.7 H Lymph % (Auto) 12.0 L [place] % (Auto) 8.2 Eos % (Auto) 0.5 Baso % (Auto) 0.3 Absolute Neuts (auto) 7.0 Absolute Lymphs (auto) 1.07 Nucleated RBC % 0 PT 21.4 H INR 1.9 Sodium 140 Potassium 4.0 Chloride 106 Carbon Dioxide 26.0 Anion Gap 8 BUN 10 Creatinine 0.82 Estim Creat Clear Calc 56.70 Est GFR (MDRD) Af Amer 89 Est GFR (MDRD) Non-Af 74 BUN/Creatinine Ratio 12.2 Glucose 125 H Calcium 9.4 Troponin I High Sens 63.3 H* Radiography Chest X-Ray - ED: 1 View, Read by ED Physician, Heart, Lungs, Mediastinum, Bony Structures, No Acute Disease and Chronic Changes Diagnostic Testing: Radiology Impression Chest X-Ray 02/06/21 15:23 IMPRESSION: Nonacute portable x-ray examination of the chest. Electronically Signed: Cristopher Ahn MD ([place]oks) at 15:52 EDT , Service support , Single view portable chest x-ray interpreted by myself shows no acute abnormality. Normal cardiac silhouette mediastinum. No infiltrate. No pulmonary edema. Rhythm Strip Rhythm Strip: A-fib Rate: 155 Ectopy: None EKG Initial EKG: Attestation: I personally reviewed and interpreted this EKG as follows: Interpretation: Atrial Fibrillation Comments: Atrial fibrillation rate of 155. No acute signs of NC nor ischemia. Prior EKG tracings: not available for review Discharge Plan Triage Chief Complaint: Palpitations ED Provider: David Hartman Dx/Rx/DC Orders Clinical Impression: Paroxysmal atrial fibrillation Prescriptions: No Action rivaroxaban 20 mg tablet 20 mg PO DAILY Qty: 90 RF: 3 Pepto-Bismol 262 mg tablet 2 tablet PO Q30-60M PRN (Reason: Diarrhea) RF: 0 zolpidem 5 MG tablet 5 mg PO QHS PRN PRN (Reason: Sleep) RF: 0 fluticasone propionate 9.9 ML spray,suspension 15.8 ml NS DAILY PRN (Reason: ALLERGIES) RF: 0 cholecalciferol (vitamin D3) [Vitamin D3] 25 mcg (1,000 unit) Tablet 50 mcg PO DAILY RF: 0 lisinopril 5 mg tablet 10 mg PO DAILY RF: 0 acetaminophen 500 mg Tablet 1,000 mg PO Q8 Qty: 0 RF: 0 oxycodone 5 mg Tablet 5 - 10 mg PO Q4H PRN PRN (Reason: Pain Score 4-10) 5 Days Qty: 60 RF: 0 sennosides-docusate sodium [Stool Softener-Stimulant Laxat] 8.6-50 mg Tablet 2 tab PO BID Qty: 14 RF: 0 atenolol 100 mg tablet 50 mg PO DAILY RF: 0 furosemide [Lasix] 40 mg tablet 40 mg PO DAILY PRN (Reason: edema) Qty: 1 RF: 0 Primary Care Provider: Skye Caruso Referrals: Skye Caruso MD [Primary Care Provider] - Disposition Disposition: Acute Care Hospital [facility]
--- NOTE | 2021-02-06 14:58 | EKG12_ITS ---
Test Reason : PALPS Blood Pressure : / mmHG Vent. Rate : 155 BPM Atrial Rate : 159 BPM P-R Int : 000 ms QRS Dur : 076 ms QT Int : 278 ms P-R-T Axes : 000 060 -59 degrees QTc Int : 446 ms Atrial fibrillation Nonspecific ST and T wave abnormality Abnormal ECG Confirmed by WANG KNIGHT, QUETA ([id number]), magazine editor ARMEN VILLANUEVA ([id number]) on 02/10/2021 9:29:33 AM Referred By: NEHEMIAS/ROXANNE Confirmed By:QUETA PIÑA MD
[2021-02-06 15:12] LABS: Absolute Lymphocyte Count 1.07 X10^3/uL (0.83-4.51); Basophil# 0.03 X10^3/uL; Basophil% 0.3 % (0-1); Eosinophil# 0.04 X10^3/uL; Eosinophils% 0.5 % (0-5); Hematocrit 34.2 % (37-47); Hemoglobin 11.2 g/dL (12.0-15.0); Lymphocyte # 1.07 X10^3/ul (0.83-4.51); Mean Corp Hgb Conc 32.7 g/dL (32-36); Mean Corpuscular Hgb 31.2 pg (27.0-32.0); Mean Corpuscular Volume 95.3 fL (81-99); Mean Platelet Vol. 10.5 fl (6.2-12.0); Monocyte# 0.73 X10^3/uL; Monocyte% 8.2 % (0-10); NRBC Flagged by Analyzer 0 % (0-5); Neutrophil # 6.98 X10^3/uL (2.7-7.7); Neutrophil % 78.7 % (47-70); Platelet Count 209 K/mm3 (150-450); RBC Distribution Width CV 12.8 % (11.6-14.6); RBC Distribution Width SD 44.5 fl (35.1-43.9); Red Blood Count 3.59 M/mm3 (4.2-5.4); White Blood Count 8.9 K/mm3 (4.4-11.0)
[2021-02-06] MEDS: dilTIAZem 25 MG/5 ML Vial IV BOLUS (15:18)
--- NOTE | 2021-02-06 15:23 | RAD_ITS ---
STUDY: X-RAY CHEST REASON FOR EXAM: Female, 70 years old. chest pain TECHNIQUE: AP COMPARISON: 11/04/2020 FINDINGS: EKG leads project over the chest. The lungs are clear and expanded. There is no demonstrated pleural abnormality. Normal size heart. Normal mediastinum and dimitrios. Normal visualized pulmonary arteries. Normal visualized aortic arch and descending thoracic aorta. Normal visualized thoracic spine. Normal visualized ribs, clavicles, and shoulders. There is no demonstrated abnormality of the visualized soft tissue structures of the upper abdomen. RAD/Chest 1 View (Portable) IMPRESSION: Nonacute portable x-ray examination of the chest. Electronically Signed: Cristopher Ahn MD (Brooks) at 15:52 EDT , Service support ,
[2021-02-06 15:34] LABS: Anion Gap 8 (5-15); BUN 10 mg/dL (7-18); BUN/Creat Ratio 12.2 RATIO (10-20); Calcium,Total 9.4 mg/dL (8.5-10.1); Chloride 106 mmol/L (98-107); Creatinine, Serum 0.82 mg/dL (0.55-1.02); EST Glomerular Filtration Rate 74 mL/min (>60); Est Glom Filt Rate - Afr Amer 89 mL/min (>60); Glucose 125 mg/dL (74-106); Sodium Level 140 mmol/L (136-145); Troponin-I HS 63.3 pg/mL (3.0-53.7)
[2021-02-06 15:46] LABS: International Normalized Ratio 1.9; Prothrombin Time (Protime)PT. 21.4 SECONDS (11.7-14.9)
[2021-02-06] MEDS: dilTIAZem 25 MG/5 ML Vial 20 MG IV BOLUS (15:51)
--- NOTE | 2021-02-06 16:13 | NURSING ---
PCU OLEGHE AFIB RVR, ABNORMAL TROP
--- NOTE | 2021-02-06 17:16 | HP.PCM_ITS ---
[facility] - General General Date of Admission: 02/06/21 HPI Narrative WINSTON OHARA, is a 70 F with a history of paroxysmal atrial fibrillation who last week underwent left knee replacement. Presented to the emergency department with 1 day history of palpitations and found to be in atrial fibr illation with rapid ventricular response and with heart rates as high as 160 bpm. Patient did have some breathlessness but no chest pain, dizziness or syncope. Mildly elevated troponins noted on presentation. She denies any lower extremity swelling orthopnea or paroxysmal nocturnal dyspnea. [facility] Medical History Anxiety Arthritis Atrial fibrillation with RVR Cardiology follow-up encounter Essential (primary) hypertension Former smoker History of diverticulitis History of edema History of irregular heartbeat History of pain when walking Hx of thyroid cyst Hypertension Insomnia Normal stress echocardiogram Paroxysmal atrial fibrillation (10/2017) Paroxysmal atrial flutter (10/2017) Persistent atrial fibrillation (11/02/20) Post-menopausal Single kidney Wears glasses Home Medications zolpidem 5 mg PO QHS PRN PRN 08/02/14 [History Last Taken 02/02/21] fluticasone propionate 15.8 ml NS DAILY PRN 10/19/17 [History Last Taken 1] rivaroxaban 20 mg tablet 20 mg PO DAILY #90 tab 11/17/17 [Rx Last Taken 01/28/21] bismuth subsalicylate 262 mg tablet 2 tablet PO Q30-60M PRN 10/08/20 [History Last Taken 02/02/21] atenolol 100 mg tablet 50 mg PO DAILY tab 11/17/20 [History Last Taken 02/06/21 08:00] furosemide 40 mg tablet 40 mg PO DAILY PRN #1 tab 11/25/20 [Rx Last Taken 02/02/21] cholecalciferol (vitamin D3) [Vitamin D3] 50 mcg PO DAILY 01/20/21 [History Last Taken 02/05/21 17:00] lisinopril 10 mg PO DAILY 01/20/21 [History Last Taken 02/03/21 06:00] acetaminophen 1,000 mg PO Q8 #0 tab 02/04/21 [Rx Last Taken Unknown] oxycodone 5 - 10 mg PO Q4H PRN PRN 5 Days #60 tab 02/04/21 [Rx Last Taken Unknown] sennosides-docusate sodium [Stool Softener-Stimulant Laxat] 2 tab PO BID #14 tab 02/04/21 [Rx Last Taken Unknown] Allergy/AdvReac Type Severity Reaction Status Date / Time flecainide Allergy Left Verified 02/06/21 14:21 Bundle Branch Block/BUE tingling/leg weakness aspirin [ASA] AdvReac ONLY HAS Verified 02/06/21 14:21 ONE KIDNEY, TOLD TO AVOID cortisone AdvReac CHEST HOT Verified 02/06/21 14:21 & WEIRD NSAIDS (Non-Steroidal AdvReac ONLY HAS Verified 02/06/21 14:21 Anti-Inflamma ONE KIDNEY, TOLD TO AVOID Family History Mother Hypertension Father Hypertension Prostate cancer Leukemia Sister vein problem DVT (deep venous thrombosis) Hypertension Surgical History History of cardioversion (11/11/20) History of colon surgery History of nephrectomy Hx of appendectomy Hx of cystoscopy Social History Smoking Status: Former smoker alcohol intake: never substance use type: does not use caffeine: Yes Type: coffee Number of servings: 4 what type of physical activity do you participate in: walking frequency: daily ROS ROS Narrative She denies any abdominal pain nausea vomiting. All other systems reviewed and essentially negative. Vital Signs Vital Signs Vital Signs: 02/06/21 14:21 02/06/21 14:32 02/06/21 15:12 Temperature 37.4 C H Temperature Source Temporal Pulse Rate 150 H 152 H Respiratory Rate 18 31 H Blood Pressure 117/75 162/100 H Blood Pressure Mean 89 120 Pulse Ox 98 97 97 Oxygen Delivery Method Room Air Room Air Room Air 02/06/21 15:19 02/06/21 15:21 02/06/21 15:22 Temperature Temperature Source Pulse Rate 139 H 123 H 101 H Respiratory Rate 16 Blood Pressure 127/69 H Blood Pressure Mean 88 Pulse Ox 98 Oxygen Delivery Method Room Air 02/06/21 15:23 02/06/21 15:24 02/06/21 15:47 Temperature Temperature Source Pulse Rate 86 111 H 136 H Respiratory Rate Blood Pressure Blood Pressure Mean Pulse Ox Oxygen Delivery Method 02/06/21 15:52 02/06/21 15:55 02/06/21 16:00 Temperature Temperature Source Pulse Rate 130 H 99 114 H Respiratory Rate 27 H Blood Pressure 110/68 Blood Pressure Mean 82 Pulse Ox 99 Oxygen Delivery Method Room Air 02/06/21 16:07 02/06/21 16:21 02/06/21 16:26 Temperature 36.7 C Temperature Source Temporal Pulse Rate 88 106 H 114 H Respiratory Rate 20 H Blood Pressure 118/68 118/68 Blood Pressure Mean 84 84 Pulse Ox 96 Oxygen Delivery Method Room Air Weight Weight: 77.4 kg Body Mass Index (BMI) 29.2 Physical Exam Narrative General. Middle-aged woman, not in any obvious distress, not particularly ill looking and not dyspneic Skin. No bruising no ecchymosis. HEENT. Normocephalic, oral mucosa moist Neck. Neck is supple. No jugular venous distention. Heart. Heart sounds completely regular. Radial pulse irregularly irregular. Lungs. Clear to auscultation. Abdomen. Obese. Soft nontender no organomegaly and no palpable masses. Extremities. No lower extremity edema. [employer]. Conscious and alert oriented x3. Cranial 2-12 grossly intact. 5 out of 5 power in all extremities. Results Lab / Micro Data Result Diagrams: 02/06/21 14:45 02/06/21 14:45 Labs: Laboratory Results - last 24 hr 02/06/21 14:45: WBC 8.9, RBC 3.59 L, Hgb 11.2 L, Hct 34.2 L, MCV 95.3, MCH 31.2, MCHC 32.7, RDW Std Deviation 44.5 H, RDW Coeff of Priscilla 12.8, Plt Count 209, MPV 10.5, Immature Gran % (Auto) 0.300, Neut % (Auto) 78.7 H, Lymph % (Auto) 12.0 L, [place] % (Auto) 8.2, Eos % (Auto) 0.5, Baso % (Auto) 0.3, Absolute Neuts (auto) 7.0, Absolute Lymphs (auto) 1.07, Nucleated RBC % 0 02/06/21 14:45: Sodium 140, Potassium 4.0, Chloride 106, Carbon Dioxide 26.0, Anion Gap 8, BUN 10, Creatinine 0.82, Estim Creat Clear Calc 56.70, Est GFR (MDRD) Af Amer 89, Est GFR (MDRD) Non-Af 74, BUN/Creatinine Ratio 12.2, Glucose 125 H, Calcium 9.4, Troponin I High Sens 63.3 H* 02/06/21 14:45: Magnesium 2.0 02/06/21 15:20: PT 21.4 H, INR 1.9 Rhythm Strip Rhythm Strip: A-fib Rate: 155 Ectopy: None Radiology Impression Chest X-Ray 02/06/21 15:23 IMPRESSION: Nonacute portable x-ray examination of the chest. Electronically Signed: Cristopher Ahn MD ([place]) at 15:52 EDT , Service support , Assessment & Plan Assessment/Plan (1) Atrial fibrillation with rapid ventricular response: PLAN: Presented with heart rates in the 160s. Has been started on Cardizem drip after 2 boluses of IV Cardizem. Will consult cardiology. Maintain on telemetry. Titrate Cardizem drip to maintain heart rate between 90 and 100. Patient wondering about invasive EP procedures for definitive treatment of atrial fibrillation. Encouraged her to have that discussion with her heel seat fitter machine. (2) Hypertension: PLAN: Well-controlled. Continue antihypertensives. Charges/Coding Visit Charges Inpatient E&M: 38575 Init Hosp L3
[2021-02-06] MEDS: oxyCODONE 5 MG Tablet PO (18:39)
[2021-02-06] MEDS: Digoxin 250 MCG/ML Ampul IV ×2 (20:11→23:27)
[2021-02-06] MEDS: 0.9% Saline Lock 10 ML Syringe IV ×2 (20:13→23:26)
[2021-02-06] MEDS: Metoprolol Tartrate 25 MG Tablet PO (23:25)
[2021-02-06] MEDS: Acetaminophen 325 MG Tablet 650 MG PO (23:26)
[2021-02-07] VITALS (39 sets, daily range): BP systolic 85–122; BP diastolic 39–85; PULSE 64–130; RESP 11–22; TEMP 36.6–37.2; O2SAT 93–99
[2021-02-07] MEDS: Zolpidem Tartrate 5 MG Tablet PO ×2 (00:07→22:34)
[2021-02-07] MEDS: Amiodarone 360 MG in Dextrose 5% Viaflo Bag 192.8 ML 33.3 MG CONT INF (02:10)
[2021-02-07] MEDS: Metoprolol Tartrate 25 MG Tablet PO ×3 (05:03→21:15)
[2021-02-07] MEDS: Digoxin 250 MCG/ML Ampul IV (05:03)
[2021-02-07] MEDS: 0.9% Saline Lock 10 ML Syringe IV (05:03)
--- NOTE | 2021-02-07 05:40 | PCM.PN.BLA ---
Progress Note Participation with heart rate was persistently in the 140s. She was maxed out on Cardizem drip. She was prescribed metoprolol which was started in the morning. Started on metoprolol at this time. Heart rate persistently elevated despite Cardizem drip and metoprolol. Blood pressure 101 systolic. Amiodarone bolus and drip added We will continue to monitor. Consider cardiology consult in a.m. if her heart rate is still uncontrolled
[2021-02-07 05:46] LABS: Absolute Lymphocyte Count 1.42 X10^3/uL (0.83-4.51); Absolute Neutrophil Count 4.2 X10^3/uL (2.0-7.7); Basophil# 0.03 X10^3/uL; Basophil% 0.5 % (0-1); Eosinophil# 0.12 X10^3/uL; Eosinophils% 1.9 % (0-5); Hematocrit 31.5 % (37-47); Lymphocyte # 1.42 X10^3/ul (0.83-4.51); Lymphocyte % 22.1 % (19-41); Mean Corp Hgb Conc 31.7 g/dL (32-36); Mean Corpuscular Hgb 30.8 pg (27.0-32.0); Mean Corpuscular Volume 96.9 fL (81-99); Mean Platelet Vol. 9.9 fl (6.2-12.0); Monocyte# 0.65 X10^3/uL; Monocyte% 10.1 % (0-10); NRBC Flagged by Analyzer 0 % (0-5); Neutrophil # 4.17 X10^3/uL (2.7-7.7); Neutrophil % 64.9 % (47-70); Platelet Count 217 K/mm3 (150-450); RBC Distribution Width CV 12.7 % (11.6-14.6); RBC Distribution Width SD 45.5 fl (35.1-43.9); Red Blood Count 3.25 M/mm3 (4.2-5.4); White Blood Count 6.4 K/mm3 (4.4-11.0)
[2021-02-07 06:23] LABS: ALB/GLOB Ratio 0.7 RATIO (0.9-2.4); AST(SGOT) 40 U/L (15-37); Alanine Aminotransfer ALT/SGPT 30 U/L (13-56); Albumin, Serum 2.4 g/dL (3.2-5.0); Alkaline Phosphatase 141 U/L (45-117); Anion Gap 7 (5-15); BUN 12 mg/dL (7-18); BUN/Creat Ratio 18.7 RATIO (10-20); Calcium,Total 8.3 mg/dL (8.5-10.1); Chloride 107 mmol/L (98-107); Creatinine, Serum 0.64 mg/dL (0.55-1.02); EST Glomerular Filtration Rate 98 mL/min (>60); Est Glom Filt Rate - Afr Amer 118 mL/min (>60); Globulin 3.4 g/dL (2.2-4.2); Glucose 104 mg/dL (74-106); Potassium 3.6 mmol/L (3.5-5.1); Protein, Total 5.8 g/dL (6.4-8.2); Sodium Level 140 mmol/L (136-145); Troponin-I HS 67.2 pg/mL (3.0-53.7)
[2021-02-07] MEDS: Amiodarone 360 MG in Dextrose 5% Viaflo Bag 192.8 ML 16.7 MG CONT INF ×2 (08:33→20:49)
[2021-02-07] MEDS: Rivaroxaban 20 MG Tablet PO (09:00)
[2021-02-07] MEDS: Senna/Docusate Sodium 1 Tablet 2 TABLET PO (09:00)
--- NOTE | 2021-02-07 10:31 | PN.CARD_ITS ---
Subjective Subjective No symptoms noted today in particular no dizziness or lightheadedness no chest pain or palpitation Objective Data Vital Signs: Vital Signs Temp Pulse Resp BP Pulse Ox 98.5 F 88 16 98/48 L 98 02/07/21 09:00 02/07/21 09:00 02/07/21 09:00 02/07/21 09:00 02/07/21 09:00 Oxygen Delivery Method Room Air Weight: 170 lb 10.205 oz Body Mass Index (BMI) 29.2 Intake & Output: Intake and Output for Last 24 Hours 02/05/21 02/06/21 02/07/21 23:59 23:59 23:59 Intake Total 190.00 / 445.00 740.02 / 740.02 Balance 190.00 / 445.00 740.02 / 740.02 Lab / Micro Data Result Diagrams: 02/07/21 05:26 02/07/21 05:26 Labs: Laboratory Results - last 24 hr 02/06/21 14:45: WBC 8.9, RBC 3.59 L, Hgb 11.2 L, Hct 34.2 L, MCV 95.3, MCH 31.2, MCHC 32.7, RDW Std Deviation 44.5 H, RDW Coeff of Priscilla 12.8, Plt Count 209, MPV 10.5, Immature Gran % (Auto) 0.300, Neut % (Auto) 78.7 H, Lymph % (Auto) 12.0 L, [place] % (Auto) 8.2, Eos % (Auto) 0.5, Baso % (Auto) 0.3, Absolute Neuts (auto) 7.0, Absolute Lymphs (auto) 1.07, Nucleated RBC % 0 02/06/21 14:45: Sodium 140, Potassium 4.0, Chloride 106, Carbon Dioxide 26.0, Anion Gap 8, BUN 10, Creatinine 0.82, Estim Creat Clear Calc 56.70, Est GFR (MDRD) Af Amer 89, Est GFR (MDRD) Non-Af 74, BUN/Creatinine Ratio 12.2, Glucose 125 H, Calcium 9.4, Troponin I High Sens 63.3 H* 02/06/21 14:45: Magnesium 2.0 02/06/21 15:20: PT 21.4 H, INR 1.9 02/07/21 05:26: WBC 6.4, RBC 3.25 L, Hgb 10.0 L, Hct 31.5 L, MCV 96.9, MCH 30.8, MCHC 31.7 L, RDW Std Deviation 45.5 H, RDW Coeff of Priscilla 12.7, Plt Count 217, MPV 9.9, Immature Gran % (Auto) 0.500, Neut % (Auto) 64.9, Lymph % (Auto) 22.1, [place] % (Auto) 10.1 H, Eos % (Auto) 1.9, Baso % (Auto) 0.5, Absolute Neuts (auto) 4.2, Absolute Lymphs (auto) 1.42, Nucleated RBC % 0 02/07/21 05:26: Sodium 140, Potassium 3.6, Chloride 107, Carbon Dioxide 26.0, Anion Gap 7, BUN 12, Creatinine 0.64, Estim Creat Clear Calc 46.50, Est GFR (MDRD) Af Amer 118, Est GFR (MDRD) Non-Af 98, BUN/Creatinine Ratio 18.7, Glucose 104, Calcium 8.3 L, Total Bilirubin 1.10 H, AST 40 H, ALT 30, Alkaline Phosphatase 141 H, Troponin I High Sens 67.2 H*, Total Protein 5.8 L, Albumin 2.4 L, Globulin 3.4, Albumin/Globulin Ratio 0.7 L Rhythm Strip Rhythm Strip: A-fib Rate: 155 Ectopy: None Cardiology Labs/Tests 02/06/21 14:45: WBC 8.9, RBC 3.59 L, Hgb 11.2 L, Hct 34.2 L, MCV 95.3, MCH 31.2, MCHC 32.7, Plt Count 209, MPV 10.5, Immature Gran % (Auto) 0.300, Neut % (Auto) 78.7 H, Lymph % (Auto) 12.0 L, [place] % (Auto) 8.2, Eos % (Auto) 0.5, Baso % (Auto) 0.3, Absolute Neuts (auto) 7.0, Nucleated RBC % 0 02/06/21 14:45: Sodium 140, Potassium 4.0, Chloride 106, Carbon Dioxide 26.0, Anion Gap 8, BUN 10, Creatinine 0.82, Est GFR (MDRD) Af Amer 89, Est GFR (MDRD) Non-Af 74, BUN/Creatinine Ratio 12.2, Glucose 125 H, Calcium 9.4 02/06/21 14:45: Magnesium 2.0 02/06/21 15:20: PT 21.4 H, INR 1.9 02/07/21 05:26: WBC 6.4, RBC 3.25 L, Hgb 10.0 L, Hct 31.5 L, MCV 96.9, MCH 30.8, MCHC 31.7 L, Plt Count 217, MPV 9.9, Immature Gran % (Auto) 0.500, Neut % (Auto) 64.9, Lymph % (Auto) 22.1, [place] % (Auto) 10.1 H, Eos % (Auto) 1.9, Baso % (Auto) 0.5, Absolute Neuts (auto) 4.2, Nucleated RBC % 0 02/07/21 05:26: Sodium 140, Potassium 3.6, Chloride 107, Carbon Dioxide 26.0, Anion Gap 7, BUN 12, Creatinine 0.64, Est GFR (MDRD) Af Amer 118, Est GFR (MDRD) Non-Af 98, BUN/Creatinine Ratio 18.7, Glucose 104, Calcium 8.3 L, Total Bilirubin 1.10 H Rhythm: Atrial fibrillation with long pauses. EKG: Atrial fibrillation with rapid ventricular rate and nonspecific ST-T elida nges Radiography Diagnostic Testing: Radiology Impression Chest X-Ray 02/06/21 15:23 IMPRESSION: Nonacute portable x-ray examination of the chest. Electronically Signed: Cristopher Ahn MD ([place]) at 15:52 EDT , Service support , Physical Exam Narrative Seen and evaluated at bedside today along with the nursing staff Alert orientated x3 Review of the director cardiac showed underlying A. fib with slow ventricular rate and long pauses Cardiac exam S1-S2 is irregular there is no murmur no systolic or diastolic murmur Chest exam is clear to auscultation Examination abdomen soft Examination lower extremity no clubbing no cyanosis no lower extremity edema. Assessment & Plan Assessment/Plan (1) Atrial fibrillation with rapid ventricular response: PLAN: 70-year-old patient has recent left knee replacement Discharged home and readmitted with symptoms of palpitation racing heart and A. fib with rapid ventricular rate She is known to have history of persistent atrial fibrillation and had a prior cardioversion and was on anticoagulation and medical treatment for rate control. She could not tolerate flecainide in the past due to development of left bundle branch block. Today we discussed the cardiac care plan in detail with the patient and nursing staff Recommendation and plan 1. I reviewed the current medication will continue on anticoagulation Xarelto, amiodarone and beta-magnolia metoprolol as tolerated 2. Cardizem had been discontinued as well as the digoxin 3. I discussed plan of considering A. fib ablation versus placement of pacemaker and possible AV henny ablation which can be set up at the tertiary cardiac facility. 4. Patient primary supercalender operator is Dr. Thapa and to discuss further plan at an outpatient (2) Hypertension: (3) Status post total left knee replacement: (4) Persistent atrial fibrillation: (5) Single kidney:
--- NOTE | 2021-02-07 10:43 | PCM.PN.HOSP ---
Documented by User: Georges FLETCHER 02/07/21 10:54 Subjective Subjective Patient is a 62-year-old female comfortably resting in bed, alert and orient x3. Patient denies any change or progression of symptoms remission. Denies chest pain, shortness of breath, palpitations, hemoptysis, sputum production, fever, chills, N/V/D. Objective Data Objective Data Vital Signs: Vital Signs Temp Pulse Resp BP Pulse Ox 98.5 F 88 16 98/48 L 98 02/07/21 09:00 02/07/21 09:00 02/07/21 09:00 02/07/21 09:00 02/07/21 09:00 Oxygen Delivery Method Room Air Weight: 170 lb 10.205 oz Body Mass Index (BMI) 29.2 Intake & Output: Intake and Output for Last 24 Hours 02/05/21 02/06/21 02/07/21 23:59 23:59 23:59 Intake Total 190.00 / 445.00 740.02 / 740.02 Balance 190.00 / 445.00 740.02 / 740.02 Lab / Micro Data Result Diagrams: 02/07/21 05:26 02/07/21 05:26 Labs: Laboratory Results - last 24 hr 02/06/21 14:45: WBC 8.9, RBC 3.59 L, Hgb 11.2 L, Hct 34.2 L, MCV 95.3, MCH 31.2, MCHC 32.7, RDW Std Deviation 44.5 H, RDW Coeff of Priscilla 12.8, Plt Count 209, MPV 10.5, Immature Gran % (Auto) 0.300, Neut % (Auto) 78.7 H, Lymph % (Auto) 12.0 L, [place] % (Auto) 8.2, Eos % (Auto) 0.5, Baso % (Auto) 0.3, Absolute Neuts (auto) 7.0, Absolute Lymphs (auto) 1.07, Nucleated RBC % 0 02/06/21 14:45: Sodium 140, Potassium 4.0, Chloride 106, Carbon Dioxide 26.0, Anion Gap 8, BUN 10, Creatinine 0.82, Estim Creat Clear Calc 56.70, Est GFR (MDRD) Af Amer 89, Est GFR (MDRD) Non-Af 74, BUN/Creatinine Ratio 12.2, Glucose 125 H, Calcium 9.4, Troponin I High Sens 63.3 H* 02/06/21 14:45: Magnesium 2.0 02/06/21 15:20: PT 21.4 H, INR 1.9 02/07/21 05:26: WBC 6.4, RBC 3.25 L, Hgb 10.0 L, Hct 31.5 L, MCV 96.9, MCH 30.8, MCHC 31.7 L, RDW Std Deviation 45.5 H, RDW Coeff of Priscilla 12.7, Plt Count 217, MPV 9.9, Immature Gran % (Auto) 0.500, Neut % (Auto) 64.9, Lymph % (Auto) 22.1, [place] % (Auto) 10.1 H, Eos % (Auto) 1.9, Baso % (Auto) 0.5, Absolute Neuts (auto) 4.2, Absolute Lymphs (auto) 1.42, Nucleated RBC % 0 02/07/21 05:26: Sodium 140, Potassium 3.6, Chloride 107, Carbon Dioxide 26.0, Anion Gap 7, BUN 12, Creatinine 0.64, Estim Creat Clear Calc 46.50, Est GFR (MDRD) Af Amer 118, Est GFR (MDRD) Non-Af 98, BUN/Creatinine Ratio 18.7, Glucose 104, Calcium 8.3 L, Total Bilirubin 1.10 H, AST 40 H, ALT 30, Alkaline Phosphatase 141 H, Troponin I High Sens 67.2 H*, Total Protein 5.8 L, Albumin 2.4 L, Globulin 3.4, Albumin/Globulin Ratio 0.7 L Radiography Diagnostic Testing: Radiology Impression Chest X-Ray 02/06/21 15:23 IMPRESSION: Nonacute portable x-ray examination of the chest. Electronically Signed: Cristopher Ahn MD ([place]) at 15:52 EDT , Service support , Rhythm Strip Rhythm Strip: A-fib Rate: 155 Ectopy: None Physical Exam Const alert, oriented x3 and no apparent distress HEENT head/scalp atraumatic and moist oral mucous membranes Head and Scalp: normocephalic Eyes EOMs intact bilaterally and conjunctivae normal Neck no lymphadenopathy, supple and no JVD Resp normal respiratory effort, no retractions and no use of accessory muscles Cardio regular rate, regular rhythm, no murmurs and no JVD GI normal to inspection, nondistended, normoactive bowel sounds and soft to palpation Extremity normal to inspection, full ROM and no clubbing, cyanosis or edema Skin no rashes or lesions noted and no wounds Neuro CN's II-XII intact bilaterally Psych affect normal Assessment & Plan Assessment/Plan (1) Atrial fibrillation with rapid ventricular response: (2) Hypertension: PLAN: Day 2: See subjective. Discharge planning: Discharge home when medically ready, no additional therapy needs identified. 1) A. fib with RVR Rate is currently controlled. Patient is on atenolol 50 mg p.o. daily for rate control and Xarelto 20 mg p.o. daily for anticoagulation at home. Her rate controlling medications will likely need to be changed from atenolol to metoprolol, as well as the addition of amiodarone. Plan; remain admitted overnight, continue amiodarone infusion, initiate amiodarone 200 mg p.o. twice daily on the morning of 01/08, change rate control from atenolol to metoprolol as noted above, continue anticoagulation with Xarelto. 2) HTN Controlled, on the lower end of normal, currently 98/48. Plan; continue lisinopril and metoprolol, hold parameters in place. DVT prophylaxis - Xarelto Patient seen by Georges Ely PA-C, under the supervision of Dr. Nichole. Documented by User: Dr. George Nichole DO 02/07/21 14:18 Objective Data Lab / Micro Data Result Diagrams: 02/07/21 05:26 02/07/21 05:26 Charges/Coding Addendum Addendum: Patient seen and examined independently. Data and vitals reviewed. I agree with the above note by the physician wet process miller head assistant. Patient had A. fib with RVR but also had some pauses. Patient currently feels fine at this time. Cardiology discussed with the patient about possible being transferred to a tertiary facility. Patient at this time would wish to stay here and discuss with her primary merchandise presentation manager on the . Patient concerned about her knee as she is not really been all that mobile since her recent left knee replacement last week. States is not able to bend it much. No acute distress. Afebrile. Heart rate irregular. Lungs are clear to auscultation bilaterally. Extremities patient has left knee swelling. Assessment and plan 1. Atrial fibrillation with RVR: Currently improved. Cardiology following. Continue with amiodarone as well as metoprolol. Further discussion with cardiology on the determine additional therapy. 2. 2. Recent left knee replacements: Patient has been reticent to bend her knee because of pain. Patient encouraged to continue with range of motion activity even while in bed. Procedures Hospitalists Procedures: Other Procedure - See Report (Nonbillable rounding is patient was admitted after midnight.)
[2021-02-07] MEDS: Acetaminophen 325 MG Tablet 650 MG PO (12:53)
[2021-02-07] MEDS: oxyCODONE 5 MG Tablet PO (21:16)
[2021-02-08] VITALS (21 sets, daily range): BP systolic 97–130; BP diastolic 51–83; PULSE 98–128; RESP 12–18; TEMP 36.6–36.9; O2SAT 97–100
[2021-02-08 05:36] LABS: Absolute Lymphocyte Count 1.42 X10^3/uL (0.83-4.51); Absolute Neutrophil Count 3.6 X10^3/uL (2.0-7.7); Basophil# 0.04 X10^3/uL; Basophil% 0.7 % (0-1); Eosinophil# 0.15 X10^3/uL; Eosinophils% 2.6 % (0-5); Hematocrit 32.3 % (37-47); Hemoglobin 10.3 g/dL (12.0-15.0); Lymphocyte # 1.42 X10^3/ul (0.83-4.51); Lymphocyte % 24.8 % (19-41); Mean Corp Hgb Conc 31.9 g/dL (32-36); Mean Corpuscular Hgb 30.8 pg (27.0-32.0); Mean Corpuscular Volume 96.7 fL (81-99); Mean Platelet Vol. 9.6 fl (6.2-12.0); Monocyte# 0.51 X10^3/uL; Monocyte% 8.9 % (0-10); NRBC Flagged by Analyzer 0 % (0-5); Neutrophil # 3.58 X10^3/uL (2.7-7.7); Neutrophil % 62.7 % (47-70); Platelet Count 241 K/mm3 (150-450); RBC Distribution Width CV 12.7 % (11.6-14.6); RBC Distribution Width SD 44.9 fl (35.1-43.9); Red Blood Count 3.34 M/mm3 (4.2-5.4); White Blood Count 5.7 K/mm3 (4.4-11.0)
[2021-02-08 05:55] LABS: Anion Gap 7 (5-15); BUN 15 mg/dL (7-18); BUN/Creat Ratio 24.1 RATIO (10-20); Calcium,Total 8.6 mg/dL (8.5-10.1); Chloride 106 mmol/L (98-107); Creatinine, Serum 0.62 mg/dL (0.55-1.02); EST Glomerular Filtration Rate 101 mL/min (>60); Est Glom Filt Rate - Afr Amer 122 mL/min (>60); Glucose 94 mg/dL (74-106); Potassium 3.5 mmol/L (3.5-5.1); Sodium Level 139 mmol/L (136-145)
[2021-02-08] MEDS: Metoprolol Tartrate 25 MG Tablet PO (06:16)
[2021-02-08] MEDS: Amiodarone 360 MG in Dextrose 5% Viaflo Bag 192.8 ML 16.7 MG CONT INF (09:20)
--- NOTE | 2021-02-08 09:38 | ECHOD_ITS ---
Reason For Study: ATRIAL FIB-FLUTTER Procedure This was a 2D Doppler, Color Flow transthoracic echocardiogram. The exam was of adequate technical quality. Exam performed portable in patient room. Left Ventricle Normal LV size. Left ventricular systolic function is normal. The estimated ejection fraction is 60 %. Unable to assess diastolic dysfunction. No regional wall motion abnormalities noted. Right Ventricle Normal RV size. Normal systolic function. Atria The left atrium is severely enlarged. The right atrium is moderately enlarged. No doppler evidence for ASD. Mitral Valve There is no mitral annular calcification. Normal mitral valve. Mild (1+) mitral valve insufficiency. Tricuspid Valve Normal tricuspid valve. Mild tricuspid valve insufficiency. Right ventricular systolic pressure estimated to be 49 mmHg. Aortic Valve Trisinus/trileaflet aortic valve. Normal aortic valve. Pulmonic Valve The pulmonic valve is not well visualized. Mild (1+) pulmonic valve insufficiency. Great Vessels Normal sized aortic root. Pericardium/Pleural No pericardial effusion. MMode/2D Measurements & Calculations LVIDd: 4.4 cm IVSd: 0.83 cm Ao root diam: 2.8 cm LVIDs: 3.0 cm LVPWd: 0.83 cm RVDd: 3.1 cm FS: 31.4 % LAV(MOD-bp): 68.7 ml LVAd ap4: 22.6 cm2 SV(MOD-sp4): 42.1 ml LAV(MOD-bp) Indexed: 37.7 ml/m2 LVLd ap4: 6.5 cm LAV(MOD-sp2): 68.1 ml EDV(MOD-sp4): 66.8 ml LAV(MOD-sp4): 65.5 ml EDV(sp4-el): 66.8 ml LVAs ap4: 12.4 cm2 LVLs ap4: 5.5 cm ESV(MOD-sp4): 24.8 ml ESV(sp4-el): 23.8 ml EF(MOD-sp4): 62.9 % EF(sp4-el): 64.4 % SV(sp4-el): 43.0 ml LA A4 area: 22.3 cm2 LA dimension(2D): 4.1 cm RA A4 area: 20.5 cm2 Doppler Measurements & Calculations MV E max christiano: 83.8 cm/sec Ao V2 max: 137.8 cm/sec LV V1 max: 101.5 cm/sec Ao max P.7 mmHg LV V1 max P.2 mmHg PA V2 max: 106.1 cm/sec TR max christiano: 338.1 cm/sec TR max P.8 mmHg ECHO/Echo Complete Interpretation Summary Left ventricular systolic function is normal. The estimated ejection fraction is 60 %. The left atrium is severely enlarged. The right atrium is moderately enlarged. Mild (1+) mitral valve insufficiency. Mild tricuspid valve insufficiency. Mild (1+) pulmonic valve insufficiency. Right ventricular systolic pressure estimated to be 49 mmHg. Unable to assess diastolic dysfunction. Ordering Physician: Emanuel Alcala Referring Physician: LILIAM ALANIZ Performed By: Alexa Glass RDCS
--- NOTE | 2021-02-08 09:45 | PN.CARD_ITS ---
Subjective Subjective The patient is awake and alert. She has been undergoing evaluation care for her atrial fibrillation which she was able to sense and based upon her symptoms return to the hospital for further evaluation and care. Objective Data Vital Signs: Vital Signs Temp Pulse Resp BP Pulse Ox 98.4 F 123 H 16 125/61 H 98 02/08/21 03:00 02/08/21 09:17 02/08/21 09:17 02/08/21 09:17 02/08/21 09:17 Oxygen Delivery Method Room Air Weight: 170 lb 10.205 oz Body Mass Index (BMI) 29.2 Intake & Output: Intake and Output for Last 24 Hours 02/06/21 02/07/21 02/08/21 23:59 23:59 23:59 Intake Total 190.00 / 445.00 1901.46 / 1918.16 363.54 / 363.54 Balance 190.00 / 445.00 1901.46 / 1918.16 363.54 / 363.54 Lab / Micro Data Result Diagrams: 02/08/21 05:12 02/08/21 05:12 Labs: Laboratory Results - last 24 hr 02/08/21 05:12: WBC 5.7, RBC 3.34 L, Hgb 10.3 L, Hct 32.3 L, MCV 96.7, MCH 30.8, MCHC 31.9 L, RDW Std Deviation 44.9 H, RDW Coeff of Priscilla 12.7, Plt Count 241, MPV 9.6, Immature Gran % (Auto) 0.300, Neut % (Auto) 62.7, Lymph % (Auto) 24.8, [place] % (Auto) 8.9, Eos % (Auto) 2.6, Baso % (Auto) 0.7, Absolute Neuts (auto) 3.6, Absolute Lymphs (auto) 1.42, Nucleated RBC % 0 02/08/21 05:12: Sodium 139, Potassium 3.5, Chloride 106, Carbon Dioxide 26.0, Anion Gap 7, BUN 15, Creatinine 0.62, Estim Creat Clear Calc 46.50, Est GFR (MDRD) Af Amer 122, Est GFR (MDRD) Non-Af 101, BUN/Creatinine Ratio 24.1 H, Glucose 94, Calcium 8.6 Rhythm Strip Rhythm Strip: A-fib Rate: 155 Ectopy: None Cardiology Labs/Tests 02/08/21 05:12: WBC 5.7, RBC 3.34 L, Hgb 10.3 L, Hct 32.3 L, MCV 96.7, MCH 30.8, MCHC 31.9 L, Plt Count 241, MPV 9.6, Immature Gran % (Auto) 0.300, Neut % (Auto) 62.7, Lymph % (Auto) 24.8, [place] % (Auto) 8.9, Eos % (Auto) 2.6, Baso % (Auto) 0 .7, Absolute Neuts (auto) 3.6, Nucleated RBC % 0 02/08/21 05:12: Sodium 139, Potassium 3.5, Chloride 106, Carbon Dioxide 26.0, Anion Gap 7, BUN 15, Creatinine 0.62, Est GFR (MDRD) Af Amer 122, Est GFR (MDRD) Non-Af 101, BUN/Creatinine Ratio 24.1 H, Glucose 94, Calcium 8.6 Rhythm: Atrial fibrillation with variable ventricular response [id number]: Atrial fibrillation; nonspecific ST/T wave abnormality Physical Exam Const alert, oriented x3, no apparent distress and healthy appearing Orientation / Consciousness: awake HEENT normocephalic, head/scalp atraumatic and hearing grossly normal bilaterally Eyes PERRL and EOMs intact bilaterally Neck full ROM, supple and no JVD Resp clear to auscultation bilaterally Cardio Rhythm: abnormal rhythm irregularly irregular Heart Sounds: S1 normal and S2 normal GI normal to inspection, nondistended, normoactive bowel sounds Extremity Extremity Narrative: Status post left knee replacement surgery: Surgical bandage in place Psych mental status grossly normal Assessment & Plan Assessment/Plan (1) Atrial fibrillation with rapid ventricular response: PLAN: The patient is currently in atrial fibrillation with a variable jennifer tricular response. An attempt will be made to control this medically with rate control therapy and antiarrhythmic therapy. She was placed on IV amiodarone. Thus far she has remained in atrial fibri llation. She may need antiarrhythmic therapy. Apparently in the past she did not tolerate agents such as flecainide. She may be a candidate for other antiarrhythmics such as sotalol as she has had in the past overall preserved LV systolic function and as of approximately 1 year ago a negative exercise tolerance test/imaging study. Thus this may be a reasonable time, while she is hospitalized, to initiate therapy such as sotalol and follow her response. She will also need to continue her anticoagulant therapy. (2) Abnormal cardiac enzyme level: PLAN: She does have mildly elevated and nonchanging cardiac enzymes. This may be a type II supply demand mismatch event from her atrial dysrhythmia superimposed upon her recent noncardiac surgery. She will be asked to have an echocardiogram to reassess her left ventricular wall motion systolic function. She may also need reevaluation from a noninvasive standpoint such as a pharmacologic stress study to assess for any new changes concerning for underlying CAD or myocardial ischemia that would warrant further invasive evaluation or care. (3) Hypertension: PLAN: She will continue medical management as deemed appropriate (4) Status post total left knee replacement: PLAN: She does need to continue postoperative follow-up by internal medicine, orthopedic surgery, OT/PT, etc. as deemed appropriate. Addt'l Comments The patient denies symptoms considered classic for angina pectoris, CHF / pulmonary edema (with respect to orthopnea / PND), ongoing palpitations, or near syncope / syncope.
[2021-02-08] MEDS: Lisinopril 10 MG Tablet PO (11:08)
[2021-02-08] MEDS: Rivaroxaban 20 MG Tablet PO (11:08)
[2021-02-08] MEDS: Sotalol Hydrochloride 80 MG Tablet PO (11:08)
--- NOTE | 2021-02-08 11:30 | CASEMGMT ---
DAE ALICEA chart review: Patient here under observation following left total knee replacement. See DAE ALICEA assessment from 02/04/21. Patient discharged to home with outpatient therapy setup with [facility] that was to start 02/08/21. Patient returned 02/06/21 for palpitations and admitted for A fib with RVR. Patient has history of paroxysmal afib and on Xarelto at home. Patient follow with maintenance services dispatcher Dr. Thapa. Patient to have follow-up with Ortho on 02/18/21. Patient was to have outpatient therapy starting 02/08/21. Patient to discharge home with outpatient therapy and follow-up plans.
--- NOTE | 2021-02-08 12:35 | PN.HOSP_ITS ---
Documented by User: Georges FLETCHER 02/08/21 12:41 Subjective Subjective Patient is a 70-year-old female comfortably resting in bed, alert and orient x3. Patient reports feeling ongoing palpitations, however denies chest pain, shortness of breath, hemoptysis, sputum production, fever, chills, N/V/D. Objective Data Objective Data Vital Signs: Vital Signs Temp Pulse Resp BP Pulse Ox 97.9 F 115 H 15 125/70 H 97 02/08/21 11:28 02/08/21 11:28 02/08/21 11:28 02/08/21 11:28 02/08/21 11:28 Oxygen Delivery Method Room Air Weight: 170 lb 10.205 oz Body Mass Index (BMI) 29.2 Intake & Output: Intake and Output for Last 24 Hours 02/06/21 02/07/21 02/08/21 23:59 23:59 23:59 Intake Total 190.00 / 445.00 1901.46 / 1918.16 396.94 / 396.94 Balance 190.00 / 445.00 1901.46 / 1918.16 396.94 / 396.94 Medical Nutrition Assessment Dietitian: Nutrition Therapy Diagnosis Start: 02/07/21 12:53 Freq: Status: Active Protocol: Document 02/07/21 13:01 TOMMY (Rec: 02/07/21 13:01 TOMMY [id number]) Nutrition Malnutrition Evidence of Malnutrition Exists No Intake Problem Inadequate Oral Intake Etiology relate to recent surgery and food not tasting right to pt Signs/Symptoms as evidenced by poor po intake x 4 days Status Active Problem Recommendation Dietitian Recommendations/Changes Will continue diet and oral nutrition supplements as ordered Lab / Micro Data Result Diagrams: 02/08/21 05:12 02/08/21 05:12 Labs: Laboratory Results - last 24 hr 02/08/21 05:12: WBC 5.7, RBC 3.34 L, Hgb 10.3 L, Hct 32.3 L, MCV 96.7, MCH 30.8, MCHC 31.9 L, RDW Std Deviation 44.9 H, RDW Coeff of Priscilla 12.7, Plt Count 241, MPV 9.6, Immature Gran % (Auto) 0.300, Neut % (Auto) 62.7, Lymph % (Auto) 24.8, [place] % (Auto) 8.9, Eos % (Auto) 2.6, Baso % (Auto) 0.7, Absolute Neuts (auto) 3.6, Absolute Lymphs (auto) 1.42, Nucleated RBC % 0 02/08/21 05:12: Sodium 139, Potassium 3.5, Chloride 106, Carbon Dioxide 26.0, Anion Gap 7, BUN 15, Creatinine 0.62, Estim Creat Clear Calc 46.50, Est GFR (MDRD) Af Amer 122, Est GFR (MDRD) Non-Af 101, BUN/Creatinine Ratio 24.1 H, Glucose 94, Calcium 8.6 Rhythm Strip Rhythm Strip: A-fib Rate: 155 Ectopy: None Physical Exam Const alert, oriented x3 and no apparent distress HEENT head/scalp atraumatic and moist oral mucous membranes Head and Scalp: normocephalic Eyes EOMs intact bilaterally and conjunctivae normal Neck no lymphadenopathy, supple and no JVD Resp normal respiratory effort, no retractions, no use of accessory muscles and clear to auscultation bilaterally Cardio no murmurs and no JVD Rate: tachycardic Rhythm: abnormal rhythm GI normal to inspection, nondistended, normoactive bowel sounds, soft to palpation and non-tender Extremity normal to inspection, full ROM and no clubbing, cyanosis or edema Skin no rashes or lesions noted, no wounds and skin turgor normal Neuro CN's II-XII intact bilaterally Psych affect normal Assessment & Plan Assessment/Plan (1) Atrial fibrillation with rapid ventricular response: PLAN: Day 3: See subjective. Discharge planning: Discharge home when medically ready, no additional therapy needs identified. 1) A. fib with RVR Rate is NOT currently controlled, patient is still in A-Fib w/ RVR despite amiodarone. Cardiology recommends rate control with sotalol, amiodarone discontinued. Continue anticoagulation with Xarelto. Plan; remain admitted overnight for rate monitoring. 2) HTN Controlled, Plan; continue lisinopril, hold parameters in place. DVT prophylaxis - Xarelto Patient seen by Georegs Ely PA-C, under the supervision of Dr. France. Documented by User: Dr. Gokul France MD 02/08/21 13:21 Objective Data Lab / Micro Data Result Diagrams: 02/08/21 05:12 02/08/21 05:12 Assessment & Plan Addt'l Comments This patient was seen in conjunction with Georges Ely PA-C. I have independently interviewed and examined the patient and reviewed pertinent historical, laboratory, and other data. Please refer to Georges Ely PA-C's note for details of this patient's presentation, findings, and recommendations. I have reviewed Georges Ely PA-C's note and concur with documented findings. In brief, patient is a 70-year-old lady with history of paroxysmal A. fib who presented with A. fib with RVR Physical Examination: GENERAL: cooperative HEENT: Atraumatic; EYES; Anicteric, Normal Conjunctiva NECK; supple, normal thyroid, RESPIRATORY: Diminished to auscultation CARDIOVASCULAR: Irregularly irregular, tachycardic GI: soft, normoactive bowel sounds, : No Renal angle tenderness; EXTREMITIES: No edema, no clubbing, MUSCULOSKELETAL: no muscle waisting NEURO: Awake; no lateralizing signs. SKIN: No Rash PSYCH; Flat affect Assessment: 1. Paroxysmal A. fib with RVR 2. Recent left total knee arthroplasty 3. Essential hypertension 4. DVT prophylaxis Recommendations: 1. I have discussed the results of my overview and impressions with the patient 2. Options for management were reviewed Charges/Coding Visit Charges Inpatient E&M: 72279 [facility] Hosp L3
[2021-02-08] MEDS: Acetaminophen 325 MG Tablet 650 MG PO (12:53)
[2021-02-08] MEDS: Digoxin 250 MCG/ML Ampul 500 MCG IV (17:34)
[2021-02-08] MEDS: Loperamide 2 MG Capsule PO (21:42)
[2021-02-08] MEDS: Sotalol Hydrochloride 80 MG Tablet 120 MG PO (21:43)
[2021-02-08] MEDS: oxyCODONE 5 MG Tablet PO (21:47)
[2021-02-08] MEDS: Zolpidem Tartrate 5 MG Tablet PO (21:47)
[2021-02-09] VITALS (8 sets, daily range): BP systolic 105–138; BP diastolic 58–78; PULSE 84–118; RESP 16–18; TEMP 36.4–36.8; O2SAT 96–98
--- NOTE | 2021-02-09 05:55 | EKG12_ITS ---
Test Reason : AM EKG Blood Pressure : / mmHG Vent. Rate : 099 BPM Atrial Rate : 150 BPM P-R Int : 000 ms QRS Dur : 082 ms QT Int : 302 ms P-R-T Axes : 000 046 -49 degrees QTc Int : 387 ms Atrial fibrillation Nonspecific ST and T wave abnormality Abnormal ECG Confirmed by WANG KNIGHT, QUETA ([id number]), movie editor ARMEN VILLANUEVA ([id number]) on 02/10/2021 10:47:03 AM Referred By: Francis Mercer Confirmed By:QUETA PIÑA MD
[2021-02-09 06:11] LABS: Absolute Lymphocyte Count 1.44 X10^3/uL (0.83-4.51); Absolute Neutrophil Count 4.2 X10^3/uL (2.0-7.7); Basophil# 0.04 X10^3/uL; Basophil% 0.6 % (0-1); Eosinophil# 0.16 X10^3/uL; Eosinophils% 2.5 % (0-5); Hematocrit 33.5 % (37-47); Hemoglobin 10.8 g/dL (12.0-15.0); Lymphocyte # 1.44 X10^3/ul (0.83-4.51); Lymphocyte % 22.4 % (19-41); Mean Corp Hgb Conc 32.2 g/dL (32-36); Mean Corpuscular Hgb 30.9 pg (27.0-32.0); Mean Platelet Vol. 9.4 fl (6.2-12.0); Monocyte% 9.3 % (0-10); NRBC Flagged by Analyzer 0 % (0-5); Neutrophil # 4.16 X10^3/uL (2.7-7.7); Neutrophil % 64.7 % (47-70); Platelet Count 288 K/mm3 (150-450); RBC Distribution Width CV 12.8 % (11.6-14.6); RBC Distribution Width SD 44.6 fl (35.1-43.9); Red Blood Count 3.49 M/mm3 (4.2-5.4); White Blood Count 6.4 K/mm3 (4.4-11.0)
[2021-02-09 06:37] LABS: Anion Gap 7 (5-15); BUN 13 mg/dL (7-18); BUN/Creat Ratio 20.4 RATIO (10-20); Calcium,Total 8.8 mg/dL (8.5-10.1); Chloride 105 mmol/L (98-107); Creatinine, Serum 0.64 mg/dL (0.55-1.02); EST Glomerular Filtration Rate 98 mL/min (>60); Est Glom Filt Rate - Afr Amer 119 mL/min (>60); Glucose 93 mg/dL (74-106); Potassium 3.8 mmol/L (3.5-5.1); Sodium Level 138 mmol/L (136-145)
[2021-02-09] MEDS: Rivaroxaban 20 MG Tablet PO (09:29)
[2021-02-09] MEDS: Lisinopril 10 MG Tablet PO (09:30)
[2021-02-09] MEDS: Sotalol Hydrochloride 80 MG Tablet 120 MG PO ×2 (09:30→20:36)
[2021-02-09] MEDS: Ondansetron 4 MG/2 ML Vial IV (09:42)
[2021-02-09] MEDS: Acetaminophen 325 MG Tablet 650 MG PO ×2 (11:34→20:35)
--- NOTE | 2021-02-09 12:01 | PCM.PN.CARD ---
Subjective Subjective The patient is awake, alert. She denies any new acute chest discomfort or difficulty breathing. She denies any ongoing sensation of palpitations/rapid heart rate. Objective Data Vital Signs: Vital Signs Temp Pulse Resp BP Pulse Ox 97.5 F L 89 18 138/78 H 97 02/09/21 09:24 02/09/21 09:24 02/09/21 09:24 02/09/21 09:24 02/09/21 09:24 Oxygen Delivery Method Room Air Weight: 170 lb 10.205 oz Body Mass Index (BMI) 29.2 Intake & Output: Intake and Output for Last 24 Hours 02/07/21 02/08/21 02/09/21 23:59 23:59 23:59 Intake Total 1901.46 / 191.16 636.94 / 636.94 100 / 100 Balance 1901.46 / 1917.16 636.94 / 636.94 100 / 100 Lab / Micro Data Result Diagrams: 02/09/21 05:32 02/09/21 05:32 Labs: Laboratory Results - last 24 hr 02/09/21 05:32: WBC 6.4, RBC 3.49 L, Hgb 10.8 L, Hct 33.5 L, MCV 96.0, MCH 30.9, MCHC 32.2, RDW Std Deviation 44.6 H, RDW Coeff of Priscilla 12.8, Plt Count 288, MPV 9.4, Immature Gran % (Auto) 0.500, Neut % (Auto) 64.7, Lymph % (Auto) 22.4, [place] % (Auto) 9.3, Eos % (Auto) 2.5, Baso % (Auto) 0.6, Absolute Neuts (auto) 4.2, Absolute Lymphs (auto) 1.44, Nucleated RBC % 0 02/09/21 05:32: Sodium 138, Potassium 3.8, Chloride 105, Carbon Dioxide 26.0, Anion Gap 7, BUN 13, Creatinine 0.64, Estim Creat Clear Calc 46.50, Est GFR (MDRD) Af Amer 119, Est GFR (MDRD) Non-Af 98, BUN/Creatinine Ratio 20.4 H, Glucose 93, Calcium 8.8, Magnesium 2.0 Rhythm Strip Rhythm Strip: A-fib Rate: 155 Ectopy: None Cardiology Labs/Tests 02/09/21 05:32: WBC 6.4, RBC 3.49 L, Hgb 10.8 L, Hct 33.5 L, MCV 96.0, MCH 30.9, MCHC 32.2, Plt Count 288, MPV 9.4, Immature Gran % (Auto) 0.500, Neut % (Auto) 64.7, Lymph % (Auto) 22.4, [place] % (Auto) 9.3, Eos % (Auto) 2.5, Baso % (Auto) 0.6, Absolute Neuts (auto) 4.2, Nucleated RBC % 0 02/09/21 05:32: Sodium 138, Potassium 3.8, Chloride 105, Carbon Dioxide 26.0, Anion Gap 7, BUN 13, Creatinine 0.64, Est GFR (MDRD) Af Amer 119, Est GFR (MDRD) Non-Af 98, BUN/Creatinine Ratio 20.4 H, Glucose 93, Calcium 8.8, Magnesium 2.0 Rhythm: Atrial fibrillation EKG: Atrial fibrillation; nonspecific ST/T wave abnormality Radiography Diagnostic Testing: Radiology Impression Echocardiogram 02/08/21 09:38 Interpretation Summary Left ventricular systolic function is normal. The estimated ejection fraction is 60 %. The left atrium is severely enlarged. The right atrium is moderately enlarged. Mild (1+) mitral valve insufficiency. Mild tricuspid valve insufficiency. Mild (1+) pulmonic valve insufficiency. Right ventricular systolic pressure estimated to be 49 mmHg. Unable to assess diastolic dysfunction. Ordering Physician: Emanuel Alcala Referring Physician: LILIAM ALANIZ Performed By: Alexa Glass, RD Physical Exam Narrative Seen and evaluated at bedside today along with the nursing staff Alert orientated x3 Review of the groundwater monitoring technician showed underlying A. fib with slow ventricular rate and long pauses Cardiac exam S1-S2 is irregular there is no murmur no systolic or diastolic murmur Chest exam is clear to auscultation Examination abdomen soft Examination lower extremity no clubbing no cyanosis no lower extremity edema. Const alert, oriented x3, no apparent distress and healthy appearing Orientation / Consciousness: awake HEENT normocephalic, head/scalp atraumatic and hearing grossly normal bilaterally Eyes PERRL and EOMs intact bilaterally Neck full ROM, supple and no JVD Resp clear to auscultation bilaterally Cardio Rhythm: abnormal rhythm irregularly irregular Heart Sounds: S1 normal and S2 normal GI normal to inspection, nondistended, normoactive bowel sounds Extremity Extremity Narrative: Status post left knee replacement surgery: Surgical bandage in place Psych mental status grossly normal Assessment & Plan Assessment/Plan (1) Atrial fibrillation with rapid ventricular response: PLAN: The patient is currently in atrial fibrillation with a variable ventricular response. She will continue rate control therapy/antiarrhythmic therapy. She has been placed on medical management with sotalol/Betapace. She appears to be tolerating it thus far without any obvious adverse events. She will continue her anticoagulant therapy. (2) Abnormal cardiac enzyme level: PLAN: She does have mildly elevated and nonchanging cardiac enzymes. This may be a type II supply demand mismatch event from her atrial dysrhythmia superimposed upon her recent noncardiac surgery. Her echocardiogram was reviewed and is as noted. As noted before she did have a stress echocardiogram performed in January 2020 which was reported as negative. However, she may also need reevaluation from a noninvasive standpoint such as a pharmacologic stress study to assess for any new changes concerning for underlying CAD or myocardial ischemia that would warrant further invasive evaluation or care. She may or may not require further invasive evaluation and/or care. (3) Hypertension: QUALIFIERS: Hypertension type: unspecified Qualified Code(s): I10 - Essential (primary) hypertension PLAN: She will continue medical management as deemed appropriate (4) Status post total left knee replacement: PLAN: She does need to continue postoperative follow-up by internal medicine, orthopedic surgery, OT/PT, etc. as deemed appropriate. Addt'l Comments The patient's case has been previously discussed and reviewed with Dr. France. This note was generated using a voice recognition system and there may be incorrect words, spelling or punctuation that were not noted when reviewing the office note prior to saving.
--- NOTE | 2021-02-09 12:16 | PCM.PN.HOSP ---
Documented by User: Georges FLETCHER 02/09/21 12:28 Subjective Subjective Patient is a 70-year-old female comfortably resting in bed, alert and orient x3. Patient reports feeling ongoing palpitations, however denies chest pain, shortness of breath, hemoptysis, sputum production, fever, chills, N/V/D. Objective Data Objective Data Vital Signs: Vital Signs Temp Pulse Resp BP Pulse Ox 97.5 F L 89 18 138/78 H 97 02/09/21 09:24 02/09/21 09:24 02/09/21 09:24 02/09/21 09:24 02/09/21 09:24 Oxygen Delivery Method Room Air Weight: 170 lb 10.205 oz Body Mass Index (BMI) 29.2 Intake & Output: Intake and Output for Last 24 Hours 02/07/21 02/08/21 02/09/21 23:59 23:59 23:59 Intake Total 1901.46 / 1918.16 636.94 / 636.94 100 / 100 Balance 1900.46 / 1917.16 636.94 / 636.94 100 / 100 Medical Nutrition Assessment Dietitian: Nutrition Therapy Diagnosis Start: 02/07/21 12:53 Freq: Status: Active Protocol: Document 02/07/21 13:01 TOMMY (Rec: 02/07/21 13:01 TOMMY [id number]) Nutrition Malnutrition Evidence of Malnutrition Exists No Intake Problem Inadequate Oral Intake Etiology relate to recent surgery and food not tasting right to pt Signs/Symptoms as evidenced by poor po intake x 4 days Status Active Problem Recommendation Dietitian Recommendations/Changes Will continue diet and oral nutrition supplements as ordered Lab / Micro Data Result Diagrams: 02/09/21 05:32 02/09/21 05:32 Labs: Laboratory Results - last 24 hr 02/09/21 05:32: WBC 6.4, RBC 3.49 L, Hgb 10.8 L, Hct 33.5 L, MCV 96.0, MCH 30.9, MCHC 32.2, RDW Std Deviation 44.6 H, RDW Coeff of Priscilla 12.8, Plt Count 288, MPV 9.4, Immature Gran % (Auto) 0.500, Neut % (Auto) 64.7, Lymph % (Auto) 22.4, [place] % (Auto) 9.3, Eos % (Auto) 2.5, Baso % (Auto) 0.6, Absolute Neuts (auto) 4.2, Absolute Lymphs (auto) 1.44, Nucleated RBC % 0 02/09/21 05:32: Sodium 138, Potassium 3.8, Chloride 105, Carbon Dioxide 26.0, Anion Gap 7, BUN 13, Creatinine 0.64, Estim Creat Clear Calc 46.50, Est GFR (MDRD) Af Amer 119, Est GFR (MDRD) Non-Af 98, BUN/Creatinine Ratio 20.4 H, Glucose 93, Calcium 8.8, Magnesium 2.0 Radiography Diagnostic Testing: Radiology Impression Echocardiogram 02/08/21 09:38 Interpretation Summary Left ventricular systolic function is normal. The estimated ejection fraction is 60 %. The left atrium is severely enlarged. The right atrium is moderately enlarged. Mild (1+) mitral valve insufficiency. Mild tricuspid valve insufficiency. Mild (1+) pulmonic valve insufficiency. Right ventricular systolic pressure estimated to be 49 mmHg. Unable to assess diastolic dysfunction. Ordering Physician: Emanuel Alcala Referring Physician: LILIAM ALANIZ Performed By: Alexa Glass RDCS Rhythm Strip Rhythm Strip: A-fib Rate: 155 Ectopy: None Physical Exam Const alert, oriented x3 and no apparent distress HEENT head/scalp atraumatic and moist oral mucous membranes Head and Scalp: normocephalic Eyes EOMs intact bilaterally and conjunctivae normal Neck no lymphadenopathy, supple and no JVD Resp normal respiratory effort, no retractions, no use of accessory muscles and clear to auscultation bilaterally Cardio no murmurs and no JVD Rate: tachycardic Rhythm: abnormal rhythm GI normal to inspection, nondistended, normoactive bowel sounds, soft to palpation and non-tender Extremity normal to inspection, full ROM and no clubbing, cyanosis or edema Skin no rashes or lesions noted, no wounds, skin turgor normal and no jaundice Neuro CN's II-XII intact bilaterally Psych affect normal Assessment & Plan Assessment/Plan (1) Atrial fibrillation with rapid ventricular response: PLAN: Day 4: See subjective. Discharge planning: Discharge home when medically ready, no additional therapy needs identified. 1) A. fib with RVR Rate is NOT currently controlled, patient is still in A-Fib w/ RVR despite sotalol. Cardiology would like to continue efforts with sotalol and observe patient for improvement in heart rhythm. Continue anticoagulation with Xarelto. Plan; remain admitted overnight for rate monitoring. 2) Abrnormal cardiac enzymes Mildly elevated cardiac enzymes, possibly related to #1. Echocardiogram obtained 02/08 demonstrated normal LV systolic function, an estimated EF of 60% moderately enlarged right atrium, severely enlarged left atrium, RVSP of 49 mmHg and indeterminate diastolic dysfunction. Further evaluation/care pending cardiology. 3) HTN Controlled, Plan; continue lisinopril, hold parameters in place. DVT prophylaxis - Xarelto Patient seen by Georges Ely PA-C, under the supervision of Dr. France. Documented by User: Dr. Gokul France MD 02/09/21 12:54 Objective Data Lab / Micro Data Result Diagrams: 02/09/21 05:32 02/09/21 05:32 Charges/Coding Visit Charges Inpatient E&M: 84790 Subs Hosp L2
[2021-02-09] MEDS: oxyCODONE 5 MG Tablet PO (13:40)
[2021-02-09] MEDS: 0.9% Saline Lock 10 ML Syringe IV (20:42)
[2021-02-09] MEDS: Zolpidem Tartrate 5 MG Tablet PO (22:43)
[2021-02-10] VITALS (10 sets, daily range): BP systolic 102–124; BP diastolic 63–78; PULSE 60–109; RESP 16–18; TEMP 36.3–36.9; O2SAT 95–97
--- NOTE | 2021-02-10 05:55 | EKG12_ITS ---
Test Reason : AM EKG Blood Pressure : / mmHG Vent. Rate : 100 BPM Atrial Rate : 357 BPM P-R Int : 000 ms QRS Dur : 086 ms QT Int : 318 ms P-R-T Axes : 000 052 -11 degrees QTc Int : 410 ms Atrial fibrillation Nonspecific T wave abnormality Abnormal ECG Confirmed by WANG KNIGHT, QUETA ([id number]), editorial clerk ARMEN VILLANUEVA ([id number]) on 02/11/2021 10:44:42 AM Referred By: YANE Confirmed By:QUETA PIÑA MD
[2021-02-10 05:59] LABS: Absolute Lymphocyte Count 1.26 X10^3/uL (0.83-4.51); Absolute Neutrophil Count 3.6 X10^3/uL (2.0-7.7); Basophil# 0.04 X10^3/uL; Basophil% 0.7 % (0-1); Eosinophil# 0.18 X10^3/uL; Eosinophils% 3.1 % (0-5); Hemoglobin 10.6 g/dL (12.0-15.0); Lymphocyte # 1.26 X10^3/ul (0.83-4.51); Lymphocyte % 21.9 % (19-41); Mean Corp Hgb Conc 32.1 g/dL (32-36); Mean Corpuscular Hgb 30.7 pg (27.0-32.0); Mean Corpuscular Volume 95.7 fL (81-99); Mean Platelet Vol. 9.3 fl (6.2-12.0); Monocyte# 0.65 X10^3/uL; Monocyte% 11.3 % (0-10); NRBC Flagged by Analyzer 0 % (0-5); Neutrophil # 3.58 X10^3/uL (2.7-7.7); Neutrophil % 62.3 % (47-70); Platelet Count 288 K/mm3 (150-450); RBC Distribution Width CV 12.9 % (11.6-14.6); Red Blood Count 3.45 M/mm3 (4.2-5.4); White Blood Count 5.8 K/mm3 (4.4-11.0)
[2021-02-10] MEDS: Acetaminophen 325 MG Tablet 650 MG PO ×2 (06:01→16:52)
[2021-02-10] MEDS: Lisinopril 10 MG Tablet PO (06:02)
[2021-02-10 06:44] LABS: Anion Gap 7 (5-15); BUN 16 mg/dL (7-18); BUN/Creat Ratio 26.4 RATIO (10-20); Calcium,Total 8.8 mg/dL (8.5-10.1); Chloride 106 mmol/L (98-107); Creatinine, Serum 0.61 mg/dL (0.55-1.02); EST Glomerular Filtration Rate 104 mL/min (>60); Est Glom Filt Rate - Afr Amer 126 mL/min (>60); Glucose 90 mg/dL (74-106); Potassium 4.1 mmol/L (3.5-5.1); Sodium Level 140 mmol/L (136-145)
--- NOTE | 2021-02-10 10:08 | PN.CARD_ITS ---
Documented by User: CHANCE Guardado 02/10/21 11:24 Subjective Subjective The patient is awake, alert. She denies any new acute chest discomfort or difficulty breathing. She denies any ongoing sensation of palpitations/rapid heart rate. Objective Data Vital Signs: Vital Signs Temp Pulse Resp BP Pulse Ox 98 F 109 H 16 118/68 96 02/10/21 06:00 02/10/21 07:00 02/10/21 06:00 02/10/21 06:00 02/10/21 06:00 Oxygen Delivery Method Room Air Weight: 170 lb 10.205 oz Body Mass Index (BMI) 29.2 Intake & Output: Intake and Output for Last 24 Hours 02/08/21 02/09/21 02/10/21 23:59 23:59 23:59 Intake Total 636.94 / 636.94 580 / 580 Balance 636.94 / 636.94 580 / 580 Lab / Micro Data Result Diagrams: 02/10/21 05:29 02/10/21 05:29 Labs: Laboratory Results - last 24 hr 02/10/21 05:29: WBC 5.8, RBC 3.45 L, Hgb 10.6 L, Hct 33.0 L, MCV 95.7, MCH 30.7, MCHC 32.1, RDW Std Deviation 44.0 H, RDW Coeff of Priscilla 12.9, Plt Count 288, MPV 9.3, Immature Gran % (Auto) 0.700, Neut % (Auto) 62.3, Lymph % (Auto) 21.9, [place] % (Auto) 11.3 H, Eos % (Auto) 3.1, Baso % (Auto) 0.7, Absolute Neuts (auto) 3.6, Absolute Lymphs (auto) 1.26, Nucleated RBC % 0 02/10/21 05:29: Sodium 140, Potassium 4.1, Chloride 106, Carbon Dioxide 27.0, Anion Gap 7, BUN 16, Creatinine 0.61, Estim Creat Clear Calc 46.50, Est GFR (MDRD) Af Amer 126, Est GFR (MDRD) Non-Af 104, BUN/Creatinine Ratio 26.4 H, Glucose 90, Calcium 8.8 Rhythm Strip Rhythm Strip: A-fib Rate: 155 Ectopy: None Cardiology Labs/Tests 02/10/21 05:29: WBC 5.8, RBC 3.45 L, Hgb 10.6 L, Hct 33.0 L, MCV 95.7, MCH 30.7, MCHC 32.1, Plt Count 288, MPV 9.3, Immature Gran % (Auto) 0.700, Neut % (Auto) 62.3, Lymph % (Auto) 21.9, [place] % (Auto) 11.3 H, Eos % (Auto) 3.1, Baso % (Auto) 0.7, Absolute Neuts (auto) 3.6, Nucleated RBC % 0 02/10/21 05:29: Sodium 140, Potassium 4.1, Chloride 106, Carbon Dioxide 27.0, Anion Gap 7, BUN 16, Creatinine 0.61, Est GFR (MDRD) Af Amer 126, Est GFR (MDRD) Non-Af 104, BUN/Creatinine Ratio 26.4 H, Glucose 90, Calcium 8.8 Rhythm: EKG: ECHO: 01/2021: Left ventricular systolic function is normal. The estimated ejection fraction is 60 %. The left atrium is severely enlarged. The right atrium is moderately enlarged. Mild (1+) mitral valve insufficiency. Mild tricuspid valve insufficiency. Mild (1+) pulmonic valve insufficiency. Right ventricular systolic pressure estimated to be 49 mmHg. Unable to assess diastolic dysfunction. Stress Test: Cardiac Cath: PCI: CT Surgery: Holter monitor: EPS: PPM: CXR: Chest CT Scan: Physical Exam Const alert, oriented x3, no apparent distress and healthy appearing Orientation / Consciousness: awake HEENT normocephalic, head/scalp atraumatic and hearing grossly normal bilaterally Eyes PERRL and EOMs intact bilaterally Neck full ROM, supple and no JVD Resp clear to auscultation bilaterally Cardio Rhythm: abnormal rhythm irregularly irregular Heart Sounds: S1 normal and S2 normal GI normal to inspection, nondistended, normoactive bowel sounds Extremity Extremity Narrative: Status post left knee replacement surgery: Surgical bandage in place Psych mental status grossly normal Assessment & Plan Assessment/Plan (1) Atrial fibrillation with rapid ventricular response: PLAN: The patient is currently in atrial fibrillation with a variable ventricular response. She will continue rate control therapy/antiarrhythmic therapy. She has been placed on medical management with sotalol/Betapace. She appears to be tolerating without any obvious adverse events. She will continue her anticoagulant therapy. (2) Abnormal cardiac enzyme level: PLAN: She does have mildly elevated and nonchanging cardiac enzymes. This may be a type II supply demand mismatch event from her atrial dysrhythmia superimposed upon her recent noncardiac surgery. She is undergoing a pharmacologic stress test today. Her echocardiogram was reviewed and is as noted. As noted before she did have a stress echocardiogram performed in January 2020 which was reported as negative. (3) Hypertension: QUALIFIERS: Hypertension type: unspecified Qualified Code(s): I10 - Essential (primary) hypertension PLAN: She will continue medical management as deemed appropriate (4) Status post total left knee replacement: PLAN: She does need to continue postoperative follow-up by internal medicine, orthopedic surgery, OT/PT, etc. as deemed appropriate. Documented by User: Dr. Emaunel Alcala MD 02/10/21 18:23 Lab / Micro Data Result Diagrams: 02/10/21 05:29 02/10/21 05:29 Assessment & Plan Addt'l Comments Addendum: The patient was independently evaluated and examined: Please see separate cardiology progress note. The patient had no new acute cardiovascular complaints. The patient examination continues to demonstrate from a cardiovascular standpoint and irregular rhythm with a normal S1 and S2 and from a pulmonary standpoint the lungs to be clear to auscultation and percussion bilaterally. The patient underwent pharmacologic stress nuclear imaging study. This did not demonstrate any obvious ongoing myocardial ischemia. At the present time the patient does have atrial fibrillation which may be a trigger for a type II supply demand mismatch event contributing to her abnormal cardiac enzymes. It does not appear she requires additional evaluation with diagnostic cardiac catheterization. She will continue medical management with rate control and anticoagulant therapy and antiarrhythmic therapy as deemed appropriate for her atrial dysrhythmia. The patient's case was discussed and reviewed with CHANCE Celestin. This note was generated using a voice recognition system and there may be incorrect words, spelling or punctuation that were not noted when reviewing the office note prior to saving.
[2021-02-10] MEDS: Sotalol Hydrochloride 80 MG Tablet 120 MG PO ×2 (11:35→21:43)
[2021-02-10] MEDS: oxyCODONE 5 MG Tablet PO ×2 (11:38→18:34)
--- NOTE | 2021-02-10 12:42 | STRESSREP_ITS ---
Stress Test Report Date: 02-10-2021 Procedure: Pharmacologic stress nuclear imaging study Indications: Abnormal cardiac enzymes; atrial fibrillation Consent: Per the patient Procedure: The patient underwent pharmacologic (Regadenoson 0.4mg ) evaluation with a peak heart rate of 141 beats per minute (92%predicted maximal heart rate) and a peak blood pressure of 126/80 mmHg. The baseline ECG demonstrated atrial fibrillation; nonspecific ST/T wave abnormality. The peak pharmacologic ECG demonstrated no obvious ECG changes. There were no cardiac dysrhythmias pretest, during pharmacologic infusion, or recovery. There was no complaint of chest discomfort during pharmacologic infusion or recovery. The examination was discontinued secondary to completion of protocol. Impression: 1. Pharmacologic (Regadenoson) evaluation 2. Peak pharmacologic ECG with continued atrial fibrillation with nonspecific ST/T wave abnormality with no obvious ECG changes. 3. There were no cardiac dysrhythmias pretest, during pharmacologic infusion, or recovery. 4. Nuclear images pending Myocardial perfusion imaging study: Technique: The patient was injected with 12.0 millicuries of technetium 99m Cardiolite and subsequently rest SPECT Cardiolite nuclear imaging was obtained in the horizontal long, vertical long, and short axis views. The patient underwent pharmacologic (Regadenoson) evaluation with a peak heart rate of 141 beats per minute (92% percent predicted maximal heart rate) and a peak blood pressure of 126/80 mmHg. The patient was injected with 36.0 millicuries of technetium 99m Cardiolite and subsequently stress SPECT Cardiolite nuclear imaging was obtained in the horizontal long, vertical long, and short axis views. A gated Cardiolite study at peak stress was obtained. Interpretation: Rest and stress SPECT Cardiolite nuclear imaging status post realignment, normalization, and attenuation correction demonstrate relative uniform tracer uptake and myocardial perfusion appearing within normal limits. There is end systolic thickening and brightening. The gated Cardiolite study demonstrates myocardial thickening and inward wall motion. The reported LVEF is 81%. Impression: 1. Rest and stress SPECT Cardiolite nuclear imaging demonstrate relative uniform tracer uptake and myocardial perfusion appearing within normal limits. 2. The gated Cardiolite study reports an LVEF of 81%. This note was generated with [employer] software. It may contain incorrect words, spelling, and punctuation that were not noted in checking the note before signing.
[2021-02-10] MEDS: Rivaroxaban 20 MG Tablet PO (12:59)
--- NOTE | 2021-02-10 13:22 | PN.HOSP_ITS ---
Documented by User: Georges FLETCHER 02/10/21 13:30 Subjective Subjective Patient is a 70-year-old female comfortably resting in bed, alert and orient x3. Denies chest pain, shortness of breath, palpitations, hemoptysis, sputum production, fever, chills, N/V/D. Objective Data Objective Data Vital Signs: Vital Signs Temp Pulse Resp BP Pulse Ox 98.0 F 103 H 16 103/63 96 02/10/21 11:30 02/10/21 11:30 02/10/21 11:30 02/10/21 11:30 02/10/21 11:30 Oxygen Delivery Method Room Air Weight: 170 lb 10.205 oz Body Mass Index (BMI) 29.2 Intake & Output: Intake and Output for Last 24 Hours 02/08/21 02/09/21 02/10/21 23:59 23:59 23:59 Intake Total 636.94 / 636.94 580 / 580 240 / 240 Balance 636.94 / 636.94 580 / 580 240 / 240 Medical Nutrition Assessment Dietitian: Nutrition Therapy Diagnosis Start: 02/07/21 12:53 Freq: Status: Active Protocol: Document 02/07/21 13:01 TOMMY (Rec: 02/07/21 13:01 SLA [id number]) Nutrition Malnutrition Evidence of Malnutrition Exists No Intake Problem Inadequate Oral Intake Etiology relate to recent surgery and food not tasting right to pt Signs/Symptoms as evidenced by poor po intake x 4 days Status Active Problem Recommendation Dietitian Recommendations/Changes Will continue diet and oral nutrition supplements as ordered Lab / Micro Data Result Diagrams: 02/10/21 05:29 02/10/21 05:29 Labs: Laboratory Results - last 24 hr 02/10/21 05:29: WBC 5.8, RBC 3.45 L, Hgb 10.6 L, Hct 33.0 L, MCV 95.7, MCH 30.7, MCHC 32.1, RDW Std Deviation 44.0 H, RDW Coeff of Priscilla 12.9, Plt Count 288, MPV 9.3, Immature Gran % (Auto) 0.700, Neut % (Auto) 62.3, Lymph % (Auto) 21.9, [place] % (Auto) 11.3 H, Eos % (Auto) 3.1, Baso % (Auto) 0.7, Absolute Neuts (auto) 3.6, Absolute Lymphs (auto) 1.26, Nucleated RBC % 0 02/10/21 05:29: Sodium 140, Potassium 4.1, Chloride 106, Carbon Dioxide 27.0, Anion Gap 7, BUN 16, Creatinine 0.61, Estim Creat Clear Calc 46.50, Est GFR (MDRD) Af Amer 126, Est GFR (MDRD) Non-Af 104, BUN/Creatinine Ratio 26.4 H, Glucose 90, Calcium 8.8 Rhythm Strip Rhythm Strip: A-fib Rate: 155 Ectopy: None Physical Exam Const alert, oriented x3 and no apparent distress HEENT head/scalp atraumatic and moist oral mucous membranes Head and Scalp: normocephalic Eyes EOMs intact bilaterally and conjunctivae normal Neck no lymphadenopathy, supple and no JVD Resp normal respiratory effort, no retractions, no use of accessory muscles and clear to auscultation bilaterally Cardio regular rate, regular rhythm, no murmurs and no JVD GI normal to inspection, nondistended, normoactive bowel sounds, soft to palpation and non-tender Extremity normal to inspection, full ROM and no clubbing, cyanosis or edema Skin no rashes or lesions noted, no wounds, skin turgor normal and no jaundice Neuro CN's II-XII intact bilaterally Psych affect normal Assessment & Plan Assessment/Plan (1) Atrial fibrillation with rapid ventricular response: PLAN: Day 5: See subjective. Discharge planning: Anticipate discharge on 02/11 pending overnight HR control, no additional therapy needs identified. 1) A. fib with RVR Rate is NOT currently controlled, patient is still in A-Fib w/ RVR despite sotalol, although rate control has improved. Cardiology would like to continue efforts with sotalol and observe patient for improvement in heart rhythm. Continue anticoagulation with Xarelto. Plan; remain admitted overnight for rate monitoring. 2) Abrnormal cardiac enzymes Mildly elevated cardiac enzymes, possibly related to #1. Stress test on 02/10 demonstrated normal myocardial perfusion and an LVEF of 81%. Echocardiogram obtained 02/08 demonstrated normal LV systolic function, an estimated EF of 60% moderately enlarged right atrium, severely enlarged left atrium, RVSP of 49 mmHg and indeterminate diastolic dysfunction. 3) HTN Controlled, Plan; continue lisinopril, hold parameters in place. DVT prophylaxis - Xarelto Patient seen by Georges Ely PA-C, under the supervision of Dr. France. Documented by User: Dr. Gokul France MD 02/10/21 14:04 Objective Data Lab / Micro Data Result Diagrams: 02/10/21 05:29 02/10/21 05:29 Assessment & Plan Addt'l Comments This patient was seen in conjunction with Georges Ely PA-C. I have independently interviewed and examined the patient and reviewed pertinent historical, laboratory, and other data. Please refer to Georges Ely PA-C's note for details of this patient's presentation, findings, and recommendations. I have reviewed Georges Ely PA-C's note and concur with documented findings. In brief, patient is a 70-year-old lady with history of paroxysmal A. fib who presented with A. fib with RVR 02/09/2021; patient was started on sotalol 02/10/2021. Patient underwent a nuclear stress test as a result of elevated troponin. Stress test was negative for stress-induced ischemia Physical Examination: GENERAL: cooperative HEENT: Atraumatic; EYES; Anicteric, Normal Conjunctiva NECK; supple, normal thyroid, RESPIRATORY: Diminished to auscultation CARDIOVASCULAR: Irregularly irregular, tachycardic GI: soft, normoactive bowel sounds, : No Renal angle tenderness; EXTREMITIES: No edema, no clubbing, MUSCULOSKELETAL: no muscle waisting NEURO: Awake; no lateralizing signs. SKIN: No Rash PSYCH; Flat affect Assessment: 1. Paroxysmal A. fib with RVR 2. Recent left total knee arthroplasty 3. Essential hypertension 4. DVT prophylaxis 5. Elevated troponin Recommendations: 1. I have discussed the results of my overview and impressions with the patient 2. Options for management were reviewed Charges/Coding Visit Charges Inpatient E&M: 79684 Subs Hosp L2
--- NOTE | 2021-02-10 18:18 | PN.CARD_ITS ---
Subjective Subjective The patient is awake and alert. She denies any ongoing chest discomfort or difficulty breathing at this time. Objective Data Vital Signs: Vital Signs Temp Pulse Resp BP Pulse Ox 97.6 F L 94 18 124/69 H 97 02/10/21 16:50 02/10/21 16:50 02/10/21 16:50 02/10/21 16:50 02/10/21 16:50 Oxygen Delivery Method Room Air Weight: 170 lb 10.205 oz Body Mass Index (BMI) 29.2 Intake & Output: Intake and Output for Last 24 Hours 02/08/21 02/09/21 02/10/21 23:59 23:59 23:59 Intake Total 636.94 / 636.94 580 / 580 600 / 600 Balance 636.94 / 636.94 580 / 580 600 / 600 Lab / Micro Data Result Diagrams: 02/10/21 05:29 02/10/21 05:29 Labs: Laboratory Results - last 24 hr 02/10/21 05:29: WBC 5.8, RBC 3.45 L, Hgb 10.6 L, Hct 33.0 L, MCV 95.7, MCH 30.7, MCHC 32.1, RDW Std Deviation 44.0 H, RDW Coeff of Priscilla 12.9, Plt Count 288, MPV 9.3, Immature Gran % (Auto) 0.700, Neut % (Auto) 62.3, Lymph % (Auto) 21.9, [place] % (Auto) 11.3 H, Eos % (Auto) 3.1, Baso % (Auto) 0.7, Absolute Neuts (auto) 3.6, Absolute Lymphs (auto) 1.26, Nucleated RBC % 0 02/10/21 05:29: Sodium 140, Potassium 4.1, Chloride 106, Carbon Dioxide 27.0, Anion Gap 7, BUN 16, Creatinine 0.61, Estim Creat Clear Calc 46.50, Est GFR (MDRD) Af Amer 126, Est GFR (MDRD) Non-Af 104, BUN/Creatinine Ratio 26.4 H, Glucose 90, Calcium 8.8 Rhythm Strip Rhythm Strip: A-fib Rate: 155 Ectopy: None Cardiology Labs/Tests 02/10/21 05:29: WBC 5.8, RBC 3.45 L, Hgb 10.6 L, Hct 33.0 L, MCV 95.7, MCH 30.7, MCHC 32.1, Plt Count 288, MPV 9.3, Immature Gran % (Auto) 0.700, Neut % (Auto) 62.3, Lymph % (Auto) 21.9, [place] % (Auto) 11.3 H, Eos % (Auto) 3.1, Baso % (Auto) 0.7, Absolute Neuts (auto) 3.6, Nucleated RBC % 0 02/10/21 05:29: Sodium 140, Potassium 4.1, Chloride 106, Carbon Dioxide 27.0, Anion Gap 7, BUN 16, Creatinine 0.61, Est GFR (MDRD) Af Amer 126, Est GFR (MDRD) Non-Af 104, BUN/Creatinine Ratio 26.4 H, Glucose 90, Calcium 8.8 Rhythm: Atrial fibrillation EKG: Atrial fibrillation; nonspecific ST and T wave abnormality; no acute ECG changes Stress Test: Stress Test Report Date: 02-10-2021 Procedure: Pharmacologic stress nuclear imaging study Indications: Abnormal cardiac enzymes; atrial fibrillation Consent: Per the patient Procedure: The patient underwent pharmacologic (Regadenoson 0.4mg ) evaluation with a peak heart rate of 141 beats per minute (92%predicted maximal heart rate) and a peak blood pressure of 126/80 mmHg. The baseline ECG demonstrated atrial fibrillation; nonspecific ST/T wave abnormality. The peak pharmacologic ECG demonstrated no obvious ECG changes. There were no cardiac dysrhythmias pretest, during pharmacologic infusion, or recovery. There was no complaint of chest discomfort during pharmacologic infusion or recovery. The examination was discontinued secondary to completion of protocol. Impression: 1. Pharmacologic (Regadenoson) evaluation 2. Peak pharmacologic ECG with continued atrial fibrillation with nonspecific ST/T wave abnormality with no obvious ECG changes. 3. There were no cardiac dysrhythmias pretest, during pharmacologic infusion, or recovery. 4. Nuclear images pending Myocardial perfusion imaging study: Technique: The patient was injected with 12.0 millicuries of technetium 99m Cardiolite and subsequently rest SPECT Cardiolite nuclear imaging was obtained in the horizontal long, vertical long, and short axis views. The patient underwent ph armacologic (Regadenoson) evaluation with a peak heart rate of 141 beats per minute (92% percent predicted maximal heart rate) and a peak blood pressure of 126/80 mmHg. The patient was injected with 36.0 millicuries of technetium 99m Cardiolite and subsequently stress SPECT Cardiolite nuclear imaging was obtained in the horizontal long, vertical long, and short axis views. A gated Cardiolite study at peak stress was obtained. Interpretation: Rest and stress SPECT Cardiolite nuclear imaging status post realignment, normalization, and attenuation correction demonstrate relative uniform tracer uptake and myocardial perfusion appearing within normal limits. There is end systolic thickening and brightening. The gated Cardiolite study demonstrates myocardial thickening and inward wall motion. The reported LVEF is 81%. Impression: 1. Rest and stress SPECT Cardiolite nuclear imaging demonstrate relative uniform tracer uptake and myocardial perfusion appearing within normal limits. 2. The gated Cardiolite study reports an LVEF of 81%. Physical Exam Narrative Seen and evaluated at bedside today along with the nursing staff Alert orientated x3 Review of the cardiac rehabilitation program director showed underlying A. fib with slow ventricular rate and long pauses Cardiac exam S1-S2 is irregular there is no murmur no systolic or diastolic murmur Chest exam is clear to auscultation Examination abdomen soft Examination lower extremity no clubbing no cyanosis no lower extremity edema. Const alert, oriented x3, no apparent distress and healthy appearing Orientation / Consciousness: awake HEENT normocephalic, head/scalp atraumatic and hearing grossly normal bilaterally Eyes PERRL and EOMs intact bilaterally Neck full ROM, supple and no JVD Resp clear to auscultation bilaterally Cardio Rhythm: abnormal rhythm irregularly irregular Heart Sounds: S1 normal and S2 normal GI normal to inspection, nondistended, normoactive bowel sounds Extremity Extremity Narrative: Status post left knee replacement surgery: Surgical bandage in place Psych mental status grossly normal Assessment & Plan Assessment/Plan (1) Atrial fibrillation with rapid ventricular response: PLAN: The patient is currently in atrial fibrillation with a variable ventricular response. She will continue rate control therapy/antiarrhythmic therapy. She has been placed on medical management with sotalol/Betapace. She appears to be tolerating without any obvious adverse events. She will continue her anticoagulant therapy. (2) Abnormal cardiac enzyme level: PLAN: She does have mildly elevated and nonchanging cardiac enzymes. This may be a type II supply demand mismatch event from her atrial dysrhythmia superimposed upon her recent noncardiac surgery. Her echocardiogram was reviewed and is as noted. As noted before she did have a stress echocardiogram performed in January 2020 which was reported as negative. She underwent a pharmacologic stress nuclear imaging study today. It was considered negative for evidence of stress-induced myocardial ischemia. Thus her cardiac enzymes appear to be a type II event potentially brought out by her atrial fibrillation with RVR. (3) Hypertension: QUALIFIERS: Hypertension type: unspecified Qualified Code(s): I10 - Essential (primary) hypertension PLAN: She will continue medical management as deemed appropriate (4) Status post total left knee replacement: PLAN: She does need to continue postoperative follow-up by internal medicine, orthopedic surgery, OT/PT, etc. as deemed appropriate. Addt'l Comments This note was generated using a voice recognition system and there may be incorrect words, spelling or punctuation that were not noted when reviewing the office note prior to saving.
[2021-02-10] MEDS: Digoxin 250 MCG/ML Ampul 500 MCG IV (18:28)
[2021-02-10] MEDS: 0.9% Saline Lock 10 ML Syringe IV (18:34)
[2021-02-10] MEDS: Zolpidem Tartrate 5 MG Tablet PO (22:46)
[2021-02-11 02:20] VITALS: BP 126/88; PULSE 88; RESP 18; TEMP 36.6; O2SAT 97
[2021-02-11 03:00] VITALS: PULSE 72
[2021-02-11 05:33] LABS: Absolute Lymphocyte Count 1.26 X10^3/uL (0.83-4.51); Absolute Neutrophil Count 4.9 X10^3/uL (2.0-7.7); Basophil# 0.03 X10^3/uL; Basophil% 0.4 % (0-1); Eosinophil# 0.18 X10^3/uL; Eosinophils% 2.6 % (0-5); Hemoglobin 11.1 g/dL (12.0-15.0); Lymphocyte # 1.26 X10^3/ul (0.83-4.51); Lymphocyte % 18.1 % (19-41); Mean Corp Hgb Conc 31.7 g/dL (32-36); Mean Corpuscular Hgb 30.5 pg (27.0-32.0); Mean Corpuscular Volume 96.2 fL (81-99); Mean Platelet Vol. 9.2 fl (6.2-12.0); Monocyte# 0.61 X10^3/uL; Monocyte% 8.8 % (0-10); NRBC Flagged by Analyzer 0 % (0-5); Neutrophil # 4.85 X10^3/uL (2.7-7.7); Neutrophil % 69.5 % (47-70); Platelet Count 321 K/mm3 (150-450); RBC Distribution Width CV 12.9 % (11.6-14.6); RBC Distribution Width SD 44.3 fl (35.1-43.9); Red Blood Count 3.64 M/mm3 (4.2-5.4)
--- NOTE | 2021-02-11 06:00 | EKG12_ITS ---
Test Reason : AM EKG Blood Pressure : / mmHG Vent. Rate : 099 BPM Atrial Rate : 340 BPM P-R Int : 000 ms QRS Dur : 082 ms QT Int : 322 ms P-R-T Axes : 000 042 -26 degrees QTc Int : 413 ms Atrial fibrillation with premature ventricular or aberrantly conducted complexes Nonspecific ST and T wave abnormality Abnormal ECG When compared with ECG of 10-FEB-2021 05:20, MANUAL COMPARISON REQUIRED, DATA IS UNCONFIRMED Confirmed by KAREN KNIGHT, MAIA ([id number]), multimedia editor ARMEN VILLANUEVA ([id number]) on 02/12/2021 10:18:29 A M Referred By: JAMIA Confirmed By:MORGAN JONES MD
[2021-02-11 06:11] LABS: Anion Gap 7 (5-15); BUN 15 mg/dL (7-18); BUN/Creat Ratio 24.3 RATIO (10-20); Calcium,Total 8.8 mg/dL (8.5-10.1); Chloride 104 mmol/L (98-107); Creatinine, Serum 0.62 mg/dL (0.55-1.02); EST Glomerular Filtration Rate 102 mL/min (>60); Est Glom Filt Rate - Afr Amer 123 mL/min (>60); Glucose 93 mg/dL (74-106); Potassium 4.3 mmol/L (3.5-5.1); Sodium Level 138 mmol/L (136-145)
[2021-02-11 07:01] VITALS: PULSE 99
--- NOTE | 2021-02-11 07:45 | PCM.DC.SUM ---
Providers Date of Admission: 02/06/21 Primary Care Physician: Dr. Skye Caruso MD Consultations 02/06/21 16:41 Consult: Cardiology Routine Consulting Provider: Enrico Rendon Reason for Consult: afib with RVR EMERGENT Consult: No MD Notified: Yes Date Notified: 02/06/21 Time Notified: 16:55 Method of Notification: Text Reason For Visit: AFIB WITH RVR Diagnosis Discharge Diagnosis (1) Atrial fibrillation with rapid ventricular response: Status: Acute Code(s): I48.91 - Unspecified atrial fibrillation (2) Abnormal cardiac enzyme level: Status: Acute Code(s): R74.8 - Abnormal levels of other serum enzymes (3) Hypertension: Status: Chronic Code(s): I10 - Essential (primary) hypertension Qualifiers: Hypertension type: unspecified Qualified Code(s): I10 - Essential (primary) hypertension (4) Status post total left knee replacement: Status: Acute Code(s): Z96.652 - Presence of left artificial knee joint Medications at Discharge Home Medications zolpidem 5 mg PO QHS PRN PRN 08/02/14 fluticasone propionate 15.8 ml NS DAILY PRN 10/19/17 rivaroxaban 20 mg tablet 20 mg PO DAILY #90 tab 11/17/17 bismuth subsalicylate 262 mg tablet 2 tablet PO Q30-60M PRN 10/08/20 furosemide 40 mg tablet 40 mg PO DAILY PRN #1 tab 11/25/20 cholecalciferol (vitamin D3) [Vitamin D3] 50 mcg PO DAILY 01/20/21 lisinopril 10 mg PO DAILY 01/20/21 acetaminophen 1,000 mg PO Q8 #0 tab 02/04/21 oxycodone 5 - 10 mg PO Q4H PRN PRN 5 Days #60 tab 02/04/21 sennosides-docusate sodium [Stool Softener-Stimulant Laxat] 2 tab PO BID #14 tab 02/04/21 sotalol 120 mg PO BID #120 tab 02/11/21 Hospital Course Summary of Care Provided Minutes Spent on Discharge: 40 Hospital Course: patient is a 70-year-old lady with history of paroxysmal A. fib who presented with A. fib with RVR 02/09/2021; patient was started on sotalol 02/10/2021. Patient underwent a nuclear stress test as a result of elevated troponin. Stress test was negative for stress-induced ischemia Assessment: 1. Paroxysmal A. fib with RVR -Patient was admitted to a monitored bed. Had to be started on sotalol and monitor 3 days prior to achieving optimal rate control. Patient was on systemic anticoagulation with Xarelto continued 2. Elevated troponin secondary to non-STEMI type II ?Has a result of demand ischemia as a result of patient rapid heart rate. Was seen in consultation by cardiology underwent a nuclear stress test which was negative for stress-induced ischemia 3. Recent left total knee arthroplasty -Requested for PT OT eval and treatment 4. DVT prophylaxis ?On rivaroxaban Physical Exam Narrative GENERAL: cooperative HEENT: Atraumatic; EYES; Anicteric, Normal Conjunctiva NECK; supple, normal thyroid, RESPIRATORY: Diminished to auscultation CARDIOVASCULAR: Irregularly irregular, tachycardic GI: soft, normoactive bowel sounds, : No Renal angle tenderness; EXTREMITIES: No edema, no clubbing, MUSCULOSKELETAL: no muscle waisting NEURO: Awake; no lateralizing signs. SKIN: No Rash PSYCH; Flat affect Medical Records Data Medical Nutrition Assessment Dietitian: Nutrition Therapy Diagnosis Start: 02/07/21 12:53 Freq: Status: Active Protocol: Document 02/10/21 15:53 RMA (Rec: 02/10/21 15:53 RMA [id number]) Nutrition Malnutrition Evidence of Malnutrition Exists No Intake Problem Inadequate Oral Intake Etiology relate to recent surgery/ decreased appetite Signs/Symptoms as evidenced byPO~50% on average at meals Status Active Problem Recommendation Dietitian Recommendations/Changes Will d/c ensure enlive w/ medpass. Will change diet to Cardiac. ONS if PO at meals regresses. Weight / BMI Weight Weight: 77.4 kg Body Mass Index (BMI) 29.2 ABG / Lab / Microbiology Data Result Diagrams: 02/11/21 05:18 02/11/21 05:18 Laboratory: Laboratory Results - last 24 hr 02/11/21 05:18: WBC 7.0, RBC 3.64 L, Hgb 11.1 L, Hct 35.0 L, MCV 96.2, MCH 30.5, MCHC 31.7 L, RDW Std Deviation 44.3 H, RDW Coeff of Priscilla 12.9, Plt Count 321, MPV 9.2, Immature Gran % (Auto) 0.600, Neut % (Auto) 69.5, Lymph % (Auto) 18.1 L, [place] % (Auto) 8.8, Eos % (Auto) 2.6, Baso % (Auto) 0.4, Absolute Neuts (auto) 4.9, Absolute Lymphs (auto) 1.26, Nucleated RBC % 0 02/11/21 05:18: Sodium 138, Potassium 4.3, Chloride 104, Carbon Dioxide 27.0, Anion Gap 7, BUN 15, Creatinine 0.62, Estim Creat Clear Calc 46.50, Est GFR (MDRD) Af Amer 123, Est GFR (MDRD) Non-Af 102, BUN/Creatinine Ratio 24.3 H, Glucose 93, Calcium 8.8 D/C Instructions Discharge Diet: No restrictions Discharge Activity: Return to Normal Activity Call your doctor if you observe: Fever of 101 or Higher, Shortness of breath, Fainting spells and Chest pain Meaningful Use Info Meaningful Use Diagnoses (Choose all that apply): None applicable Discharge Plan Admission Admit Date/Time: 02/06/21 16:42 Primary Reason for Your Visit: Paroxysmal A. fib with RVR Attending Provider: Gokul France Primary Care Provider: Skye Caruso Consulting Providers: Enrico Rendon Discharge Orders/Prescriptions Prescriptions: New sotalol 80 mg Tablet 120 mg PO BID Qty: 120 RF: 0 Continued rivaroxaban 20 mg tablet 20 mg PO DAILY Qty: 90 RF: 3 Pepto-Bismol 262 mg tablet 2 tablet PO Q30-60M PRN (Reason: Diarrhea) RF: 0 zolpidem 5 MG tablet 5 mg PO QHS PRN PRN (Reason: Sleep) RF: 0 fluticasone propionate 9.9 ML spray,suspension 15.8 ml NS DAILY PRN (Reason: ALLERGIES) RF: 0 cholecalciferol (vitamin D3) [Vitamin D3] 25 mcg (1,000 unit) Tablet 50 mcg PO DAILY RF: 0 lisinopril 5 mg tablet 10 mg PO DAILY RF: 0 acetaminophen 500 mg Tablet 1,000 mg PO Q8 Qty: 0 RF: 0 oxycodone 5 mg Tablet 5 - 10 mg PO Q4H PRN PRN (Reason: Pain Score 4-10) 5 Days Qty: 60 RF: 0 sennosides-docusate sodium [Stool Softener-Stimulant Laxat] 8.6-50 mg Tablet 2 tab PO BID Qty: 14 RF: 0 furosemide [Lasix] 40 mg tablet 40 mg PO DAILY PRN (Reason: edema) Qty: 1 RF: 0 Discontinued atenolol 100 mg tablet 50 mg PO DAILY RF: 0 Referrals / Follow Up: Sterling Thapa MD [STAFF PHYSICIAN] - Within 1 Month Skye Caruso MD [Primary Care Provider] - Within 2 Weeks Disposition Disposition (needs filled in before D/C Order can be placed): Home, Self Care Charges/Coding Visit Charges Inpatient E&M: 83549 Disch Hosp
--- NOTE | 2021-02-11 07:52 | PN.CARD_ITS ---
Subjective Subjective The patient is a awake and alert. She denies any ongoing concerns of chest discomfort, difficulty breathing, or rapid heart rate sensations. She has been up in her room and participating with OT/PT without difficulty. Objective Data Vital Signs: Vital Signs Temp Pulse Resp BP Pulse Ox 97.9 F 72 18 126/88 H 97 02/11/21 02:20 02/11/21 03:00 02/11/21 02:20 02/11/21 02:20 02/11/21 02:20 Oxygen Delivery Method Room Air Weight: 170 lb 10.205 oz Body Mass Index (BMI) 29.2 Intake & Output: Intake and Output for Last 24 Hours 02/09/21 02/10/21 02/11/21 23:59 23:59 23:59 Intake Total 580 / 580 600 / 840 440 / 440 Balance 580 / 580 600 / 840 440 / 440 Lab / Micro Data Result Diagrams: 02/11/21 05:18 02/11/21 05:18 Labs: Laboratory Results - last 24 hr 02/11/21 05:18: WBC 7.0, RBC 3.64 L, Hgb 11.1 L, Hct 35.0 L, MCV 96.2, MCH 30.5, MCHC 31.7 L, RDW Std Deviation 44.3 H, RDW Coeff of Priscilla 12.9, Plt Count 321, MPV 9.2, Immature Gran % (Auto) 0.600, Neut % (Auto) 69.5, Lymph % (Auto) 18.1 L, [place] % (Auto) 8.8, Eos % (Auto) 2.6, Baso % (Auto) 0.4, Absolute Neuts (auto) 4.9, Absolute Lymphs (auto) 1.26, Nucleated RBC % 0 02/11/21 05:18: Sodium 138, Potassium 4.3, Chloride 104, Carbon Dioxide 27.0, Anion Gap 7, BUN 15, Creatinine 0.62, Estim Creat Clear Calc 46.50, Est GFR (MDRD) Af Amer 123, Est GFR (MDRD) Non-Af 102, BUN/Creatinine Ratio 24.3 H, Glucose 93, Calcium 8.8 Rhythm Strip Rhythm Strip: A-fib Rate: 155 Ectopy: None Cardiology Labs/Tests 02/11/21 05:18: WBC 7.0, RBC 3.64 L, Hgb 11.1 L, Hct 35.0 L, MCV 96.2, MCH 30.5, MCHC 31.7 L, Plt Count 321, MPV 9.2, Immature Gran % (Auto) 0.600, Neut % (Auto) 69.5, Lymph % (Auto) 18.1 L, [place] % (Auto) 8.8, Eos % (Auto) 2.6, Baso % (Auto) 0.4, Absolute Neuts (auto) 4.9, Nucleated RBC % 0 02/11/21 05:18: Sodium 138, Potassium 4.3, Chloride 104, Carbon Dioxide 27.0, Anion Gap 7, BUN 15, Creatinine 0.62, Est GFR (MDRD) Af Amer 123, Est GFR (MDRD) Non-Af 102, BUN/Creatinine Ratio 24.3 H, Glucose 93, Calcium 8.8 Rhythm: Atrial fibrillation EKG: Atrial fibrillation; nonspecific ST/T wave abnormality; no new acute changes Physical Exam Narrative Seen and evaluated at bedside today along with the nursing staff Alert orientated x3 Review of the alarm security or surveillance monitor showed underlying A. fib with slow ventricular rate and long pauses Cardiac exam S1-S2 is irregular there is no murmur no systolic or diastolic murmur Chest exam is clear to auscultation Examination abdomen soft Examination lower extremity no clubbing no cyanosis no lower extremity edema. Const alert, oriented x3, no apparent distress and healthy appearing Orientation / Consciousness: awake HEENT normocephalic, head/scalp atraumatic and hearing grossly normal bilaterally Eyes PERRL and EOMs intact bilaterally Neck full ROM, supple and no JVD Resp clear to auscultation bilaterally Cardio Rhythm: abnormal rhythm irregularly irregular Heart Sounds: S1 normal and S2 normal GI normal to inspection, nondistended, normoactive bowel sounds Extremity Extremity Narrative: Status post left knee replacement surgery: Surgical bandage in place Psych mental status grossly normal Assessment & Plan Assessment/Plan (1) Atrial fibrillation with rapid ventricular response: PLAN: The patient is currently in atrial fibrillation with a variable ventricular response. She will continue rate control therapy/antiarrhythmic therapy. She has been placed on medical management with sotalol/Betapace. She appears to be tolerating without any obvious adverse events. She will continue her anticoagulant therapy. She will be asked to have outpatient cardiovascular follow-up with ECGs. After an appropriate time being back on her anticoagulant therapy she will be considered for future repeat synchronized biphasic DC cardioversion to regain sinus rhythm-if it does not happen spontaneously in the interim. (2) Abnormal cardiac enzyme level: PLAN: She does have mildly elevated and nonchanging cardiac enzymes. This may be a type II supply demand mismatch event from her atrial dysrhythmia superimposed upon her recent noncardiac surgery. Her echocardiogram was reviewed and is as noted. As noted before she did have a stress echocardiogram performed in January 2020 which was reported as negative. She underwent a pharmacologic stress nuclear imaging study today. It was considered negative for evidence of stress-induced myocardial ischemia. Thus her cardiac enzymes appear to be a type II event potentially brought out by her atrial fibrillation with RVR. (3) Hypertension: QUALIFIERS: Hypertension type: unspecified Qualified Code(s): I10 - Essential (primary) hypertension PLAN: She will continue medical management as deemed appropriate (4) Status post total left knee replacement: PLAN: She does need to continue postoperative follow-up by internal medicine, orthopedic surgery, OT/PT, etc. as deemed appropriate. Addt'l Comments The above was discussed with the patient. The patient's case has also been discussed with Dr. France. This note was generated using a voice recognition system and there may be incorrect words, spelling or punctuation that were not noted when reviewing the office note prior to saving.
[2021-02-11 08:20] VITALS: BP 133/71; PULSE 80; RESP 18; TEMP 36.3; O2SAT 96
[2021-02-11] MEDS: Ondansetron 4 MG/2 ML Vial IV (08:46)
[2021-02-11] MEDS: Lisinopril 10 MG Tablet PO (08:48)
[2021-02-11] MEDS: Rivaroxaban 20 MG Tablet PO (08:48)
[2021-02-11] MEDS: Sotalol Hydrochloride 80 MG Tablet 120 MG PO (08:49)
[2021-02-11 11:03] VITALS: PULSE 91
--- NOTE | 2021-02-11 11:53 | CASEMGMT ---
This RN CM to room and pt is already set up with Cathy marie for OP therapy. Pt voices no further questions/concerns/needs. SStaten DAE CM
== END 2021-02-11 12:09 | disposition home or self-care (01) | DRG 981 ==
LOC: ED 16:10 → PCU 17:16
PROVIDERS: Physician Assistant; Admitting Provider Internal Medicine; Emergency Provider Emergency Medicine; PCP Internal Medicine; Visit Provider Internal Medicine
DX: I48.0 Paroxysmal atrial fibrillation (principal); I21.A1 Myocardial infarction type 2; Q60.0 Renal agenesis, unilateral; Z96.652 Presence of left artificial knee joint; Z87.891 Personal history of nicotine dependence; Z79.02 Long term (current) use of antithrombotics/antiplatelets; I10 Essential (primary) hypertension; M17.12 Unilateral primary osteoarthritis, left knee; E78.5 Hyperlipidemia, unspecified; I48.92 Unspecified atrial flutter; I48.19 Other persistent atrial fibrillation; Z79.01 Long term (current) use of anticoagulants; Z52.4 Kidney donor; Z90.5 Acquired absence of kidney; Z79.899 Other long term (current) drug therapy
CPT/HCPCS: 36415; 71045; 73560; 78452; 80048; 80053; 82962; 83735; 84484; 85025; 85027; 85610; 93005; 93017; 93306; 96365; 96366; 96372; 97110; 97116; 97162; 97166; 97530; 97535; 97802; 97803; 99218; 99251; 99285; A9500; C1776; J7120; A4216; G0378; G0463; J2405; J2785

== ENCOUNTER 2021-09-03 12:00 | Outpatient (CLI) | payer MEDICARE, BC, SELFPAY ==
--- NOTE | 2021-09-03 | BRBX_PTH ---
PATIENT: WINSTON OHARA LOC: [facility] U#:[id number] AGE/SX: 71/F ROOM: RE09/03/[address]: Dr. Jf Penn MD : 1950 BED: DIS: 09/03/2021 SPEC #: [id number] RECD: 09/03/21 14:06 STATUS: [place] REQ #: [id number] BRIAN: 09/03/21 00:[address]: Jf Penn DEPT: SURGICAL PATHOLOGY RECD BY: Rj Salas ENTERED: 09/03/21 14:06 SP TYPE: BREAST BX OTHR DR: Dr. 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 AM:abdelrahman 09/06/2021 MICROSCOPIC DESCRIPTION Slides are reviewed. GROSS DESCRIPTION Received in fixative is one container labeled with the patient's name and designated left breast. The specimen consists of multiple elongated fragments of diego-yellow fibroadipose tissue that in aggregate measure 7.5 x 3 x 0.6 cm. The entire specimen is submitted in six cassettes. / SJ:abdelrahman 09/03/2021 TC:5 CPT: 64533
--- NOTE | 2021-09-03 14:30 | PCM.HP.BLA ---
History and Physical Date of Admission: 09/03/21 HISTORY AND PHYSICAL ? Sandra Aquino 1950 ? REFERRING PHYSICIAN: Skye Caruso MD ? CHIEF COMPLAINT: Consult (abnormal mammogram) ? HPI: The patient is a 71 year old female referred for endoscopy. Sandra notes no history of colon complaints. ? The patient notes no history of upper GI complaints. ? Sandra has undergone prior endoscopy. SHe underwent colonoscopy on September 22, 2016. She was found to have a a polyp and 5 year follow up was recommended ? PAST MEDICAL HISTORY PAST MEDICAL HISTORY Diagnosis Date ? Benign neoplasm of colon 2005 ? Excised via colonoscopy ? Calculus of kidney ? ? Depressive disorder, not elsewhere classified ? ? Diarrhea ? ? Essential hypertension 01/17/2021 ? External hemorrhoids without mention of complication ? ? Ganglion Cyst, arch of left foot 01/20/2010 ? Generalized anxiety disorder ? ? Anxiety, Generalized ? 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 Insomnia, unspecified ? ? Internal hemorrhoids without mention of complication ? ? Irritable bowel syndrome ? ? Malignant neoplasm of breast (female), unspecified site ? ? family history breast cancer ? Nasal bone fracture ? ? 2014 ? Other acne 05/03/2005 ? Palpitations 10/05/2006 ? controlled with atenolol; does not have HTN ? Paroxysmal atrial fibrillation (HCC) 10/2017 ? Dr. Thapa ? Peptic ulcer, unspecified site, unspecified as acute or chronic, without mention of hemorrhage, perforation, or obstruction ? ? Personal history of colonic polyps ? ? Thyroid cyst 09/24/2014 ? ? PAST SURGICAL HISTORY PAST SURGICAL HISTORY Procedure Laterality Date ? APPENDECTOMY ? 12/2000 ? BIOPSY BREAST OPEN INCISIONAL ? ? ? Bx of breast, incisional ? COLONOSCOPY FLX DX W/COLLJ SPEC WHEN PFRMD ? 05/01/2006 ? Colonoscopy ? COLONOSCOPY FLX DX W/COLLJ SPEC WHEN PFRMD ? 09/22/2016 ? Colonoscopy ? COLONOSCOPY W/BIOPSY SINGLE/MULTIPLE ? 04/26/2010 ? ESWL ? 08/2009 ? FNA WITH IMAGING ? 09/24/2014 ? U/S FNA left thyroid cyst ? KNEE SURGERY HX Left 2020 ? PAST SURGICAL HISTORY OF ? 12/2000 ? right colectomy, right salpingoopherectomy ? PAST SURGICAL HISTORY OF ? 2012 ? right kidney donor ? ? ? CURRENT MEDICATIONS Current Outpatient Medications Medication Sig ? sotalol (BETAPACE) 80 mg tablet Take 80 mg by mouth twice daily. ? sertraline (ZOLOFT) 25 mg tablet Take 1 tablet by mouth once daily. (Patient taking differently: Take 12.5 mg by mouth once daily. ) ? zolpidem (AMBIEN) 5 mg tablet Take 1 tablet by mouth at bedtime as needed for sedation for up to 180 days. ? Cholecalciferol, Vitamin D3, 25 mcg (1,000 unit) cap Take 2 capsules by mouth once daily. ? lisinopril (ZESTRIL, PRINIVIL) 10 mg tablet Take 1 tablet by mouth once daily. ? XARELTO 20 mg tablet Take 1 tablet by mouth once daily. ? fluticasone (FLONASE) 50 mcg/actuation nasal spray Use 2 Sprays in each nostril once daily. (Patient taking differently: Use 2 Sprays in each nostril as needed. ) ? acetaminophen (TYLENOL) 500 mg tablet EVERY 6 HOURS NEEDED ? bismuth subsalicylate(PEPTO-BISMOL 262 MG TAB) Takes 2 pills daily as needed for IBS flare up ? polyethylene glycol 3350 (MIRALAX, GLYCOLAX) 17 gram/dose powder Use as directed for Miralax / Gatorade Bowel Prep Kit ? Gatorade Sports Drink Use as directed for Miralax / Gatorade Bowel Prep Kit ? Bisacodyl (DULCOLAX) 5 mg tab Use as directed for Miralax / Gatorade Bowel Prep Kit ? furosemide (LASIX) 40 mg tablet Take 1 tablet by mouth once daily as needed (For swelling). (Has not needed since cardioversion but has on hand) ? atenolol (TENORMIN) 50 mg tablet Take 1 tablet by mouth once daily. ? No current facility-administered medications for this visit. ? ? ALLERGIES: Flagyl [Metronidazole] and Flecainide ? PERSONAL HISTORY: SOCIAL HISTORY Social History ? Tobacco Use ? Smoking status: Former Smoker ? ? Packs/day: 1.00 ? ? Years: 15.00 ? ? Pack years: 15.00 ? ? Types: Cigarettes ? ? Quit date: 07/03/1986 ? ? Years since quittin.1 ? Smokeless tobacco: Never Used ? Tobacco comment: Quit 1986 Vaping Use ? Vaping Use: Never used Substance Use Topics ? Alcohol use: No ? Drug use: No ? FAMILY HISTORY: FAMILY HISTORY FAMILY HISTORY Problem Relation Age of Onset ? Prostate Cancer Father ? ? Hypertension Father ? ? Hypertension Mother ? ? other (IBS) Mother ? ? Hypertension Sister ? ? Breast Cancer Sister ? ? Thyroid Other ? ? Niece (sister's daughter) ? ? REVIEW OF SYMPTOMS: The review of systems data was entered by the nurse and reviewed by me ? Nursing Notes: Mariama AbernathyRICHMOND 08/19/2021 12:10 PM Signed REVIEW OF SYSTEMS: General: The patient denies fatigue, denies weight loss, denies weight gain, denies feeling hot, and denies feelings of cold. Eyes: The patient denies glaucoma, denies eye injury/surgery, wears glasses or contacts. Ear/Nose/Throat: The patient denies allergies, denies hayfever, denies ear infections, and denies bloody noses. Cardiovascular: The patient denies chest pain, denies heart disease, notes high blood pressure,denies cardiac stent, denies prior heart attack, notes irregular heart beat, denies high cholesterol, denies poor circulation, denies heart failure, other cardiac issues, denies claudication, denies cold feet, denies peripheral arterial stent. Respiratory: The patient denies tuberculosis, denies pneumonia, denies frequent cough, denies pulmonary embolism, denies shortness of breath, and denies coughing up blood. Gastrointestinal: The patient denies difficulty swallowing, denies acid reflux, denies ulcers, denies vomiting, denies jaundice/hepatitis, denies gallbladder problems, denies black or tarry stools, denies hemorrhoids, denies bleeding from rectum, notes diverticulitis, denies constipation, notes diarrhea, denies loss of stool control, and denies hernias. Kidney/Bladder: The patient notes kidney stones, denies urine infections, and denies bloody urine. Skin: The patient denies a history of skin cancer, denies bleeding/changing moles, and denies a history of skin rash. Neurologic: The patient denies a history of epilepsy/convulsions, denies headaches, denies head/spinal injuries, and denies stroke/TIA. Psychiatric: The patient notes psychiatric medications, notes depression, and denies voices, denies substance abuse. Endocrine: The patient denies thyroid disorders, denies diabetes, and denies hormonal problems. Hematologic: The patient denies a history of bruising, denies bleeding, and denies anemia, denies blood clots. Infections: The patient denies a history of measles and mumps, denies rheumatic fever, and denies sexually transmitted diseases. Musculoskeletal: The patient denies back pain/injury, denies back problems, denies sciatica, denies knee/foot trouble, denies arthritis, or denies gout. ? ? When was patient's last Mammogram screening? 2021 ? Last Colonoscopy: 2017 ? Mariama Abernathy LPN ? PHYSICAL EXAMINATION: ? General: The patient is 71 year old female, well nourished, well hydrated in no acute distress. The patient is oriented to time, place, and person. ? VITALS: Blood pressure 142/68, pulse 79, temperature 36.7 ?C (98.1 ?F), height 162.6 cm (5' 4), weight 69.4 kg (153 lb), last menstrual period 08/31/2009, SpO2 99 %. Body mass index is 26.26 kg/m?. ? HEENT: Normal cephalic, ataumatic, pupils are equally round, sclera are anicteric, mucous membranes are moist, oropharynx is clear. Neck has no masses, asymmetry or lymphadenopathy. Thyroid is unremarkable. ? Respiratory: Clear to auscultation and percussion. Normal respiratory excursion and pattern. ? Cardiac: Examination is regular rate and rhythm. ? Abdominal exam: Soft, nontender, with no palpable masses. No hepatosplenomegaly. No palpable hernias. ? Rectal exam: exam deferred ? Extremities: no clubbing, cyanosis or edema. No adenopathy. ? Other: ? LABORATORY VALUES: As Noted ? RADIOLOGIC STUDIES: As Noted ? Assessment IMPRESSION: personal history of colon polyps ? PLAN: I plan to perform lower endoscopy. We discussed the risks and benefits of the planned endoscopy. I have informed the patient that complications can occur including failure to complete the endoscopy and perforation. The patient had the opportunity to ask questions concerning the planned endoscopy. My staff has also explained the procedure to the patient in understandable terms and has given the patient printed material concerning the procedure. The patient freely consents to surgery. ? I plan to use Miralax bowel preperation for endoscopy ? ? Diagnoses: (Z86.010) Personal history of colonic polyps (primary encounter diagnosis) ? ? My findings have been communicated to Dr. Skye Caruso MD via shared medical record. This note will be forwarded to Dr. Skye Caruso MD. Return to Clinic: The patient is instructed to follow-up with me after the testing has been completed. ? Jake Boyle MD I have re-examined the patient. There are no clinical changes since date of exam.
--- NOTE | 2021-09-03 14:31 | PCM.OPRPT ---
Problems Associated Problem List Diagnoses (1) Mammographic microcalcification: Report of Operation Date of Procedure: 09/03/21 Pre-Operative Diagnosis: Mammographic microcalcifications left breast Post-Operative Diagnosis: Same Surgery/Procedure Performed:: Left stereotactic breast biopsy Surgeon: Jf Penn library assistant: None Type of Anesthesia: Local Description of Procedure: Patient was brought in the mammography unit. Placed in the supine position on the fissure table. Left breast was brought down through the opening. Medial to lateral view was obtained. Microcalcifications were identified. ?15 degree views were obtained. I targeted on the microcalcifications. Prepped the breast with Betadine. I injected 1% lidocaine plain. Skin ra was made. Needle was placed in the prefire position 2 more stereo views were obtained showing the microcalcifications to be adequately targeted. I fired the needle and took 360 degrees circumferential biopsies. I x-ray my specimen microcalcifications were present. I backed the needle off 7 mm placed a standard Gelfoam titanium clip. Standard mammogram was obtained showing the clip to be in good placement. Steri-Strips were applied sterile dressings were applied standard mammograms were obtained. Patient tolerated the procedure well. Admit VTE Documentation VTE Present on Admission: No VTE Mechan Device Prophylaxis: SCD's VTE Pharm Prophylaxis ordered?: No Reason prophylaxis not ordered:: Treatment Not Indicated
== END 2021-09-03 23:59 | disposition home or self-care (01) ==
LOC: BIRAD 12:02
PROVIDERS: PCP Internal Medicine; Visit Provider Surgery
DX: D24.2 Benign neoplasm of left breast (principal); I48.0 Paroxysmal atrial fibrillation; R92.8 Other abnormal and inconclusive findings on diagnostic imaging of breast; K58.9 Irritable bowel syndrome, unspecified; F41.1 Generalized anxiety disorder; I10 Essential (primary) hypertension; G47.00 Insomnia, unspecified; Z79.01 Long term (current) use of anticoagulants; Z79.899 Other long term (current) drug therapy; Z86.010 Personal history of colon polyps; Z87.891 Personal history of nicotine dependence
CPT/HCPCS: 19081; 88305; J7050; A4648

== ENCOUNTER 2022-01-26 22:26 | Emergency (ER) | payer MEDICARE, BC, SELFPAY ==
--- NOTE | 2022-01-26 21:21 | RAD_ITS ---
STUDY: X-RAY CHEST REASON FOR EXAM: Female, 71 years old. Redness of breath. Chest tightness beginning at 1830. Chest pain. History of A. fib. TECHNIQUE: PA and lateral views of the chest. COMPARISON: 02/06/2021 FINDINGS: The lungs are clear and expanded. There is no demonstrated pleural abnormality. Normal size heart. Normal mediastinum and dimitrios. Normal visualized pulmonary arteries. Normal visualized aortic arch and descending thoracic aorta. Mild degenerative changes of the thoracic spine. Normal visualized ribs, clavicles, and shoulders. There is no demonstrated abnormality of the visualized soft tissue structures of the upper abdomen. RAD/Chest PA and Lateral IMPRESSION: Degenerative changes, as described above. No demonstrated acute cardiopulmonary process. There is no major interval change. Electronically Signed: Lencho Yoo DO at 23:34 EDT ,
[2022-01-26 22:27] VITALS: BP 168/77; PULSE 59; RESP 18; TEMP 36.6; O2SAT 99; BMI 25.7
[2022-01-26 22:40] VITALS: O2SAT 100
--- NOTE | 2022-01-26 22:41 | EKG12_ITS ---
Test Reason : PALPITATIONS Blood Pressure : / mmHG Vent. Rate : 061 BPM Atrial Rate : 061 BPM P-R Int : 156 ms QRS Dur : 076 ms QT Int : 394 ms P-R-T Axes : 051 051 037 degrees QTc Int : 396 ms Normal sinus rhythm Nonspecific ST abnormality Abnormal ECG Confirmed by KAREN KNIGHT, MAIA ([id number]), editor news ARMEN VILLANUEVA ([id number]) on 01/31/2022 11:15:02 AM Referred By: MARIBEL BRODY Confirmed By:MORGAN JONES MD
[2022-01-26 23:32] LABS: Absolute Neutrophil Count 4.6 X10^3/uL (2.0-7.7); Basophil# 0.06 X10^3/uL; Basophil% 0.8 % (0-1); Eosinophil# 0.16 X10^3/uL; Eosinophils% 2.2 % (0-5); Hematocrit 43.2 % (37-47); Hemoglobin 14.3 g/dL (12.0-15.0); Lymphocyte % 23.7 % (19-41); Mean Corp Hgb Conc 33.1 g/dL (32-36); Mean Corpuscular Hgb 31.8 pg (27.0-32.0); Mean Corpuscular Volume 96.2 fL (81-99); Mean Platelet Vol. 10.3 fl (6.2-12.0); Monocyte# 0.63 X10^3/uL; Monocyte% 8.8 % (0-10); NRBC Flagged by Analyzer 0 % (0-5); Neutrophil # 4.56 X10^3/uL (2.7-7.7); Neutrophil % 63.8 % (47-70); Platelet Count 236 K/mm3 (150-450); RBC Distribution Width CV 13.1 % (11.6-14.6); RBC Distribution Width SD 46.5 fl (35.1-43.9); Red Blood Count 4.49 M/mm3 (4.2-5.4); White Blood Count 7.2 K/mm3 (4.4-11.0)
[2022-01-26 23:46] LABS: Anion Gap 5 (5-15); BUN 16 mg/dL (7-18); BUN/Creat Ratio 16.4 RATIO (10-20); Calcium,Total 9.4 mg/dL (8.5-10.1); Chloride 106 mmol/L (98-107); Creatinine, Serum 0.98 mg/dL (0.55-1.02); EST Glomerular Filtration Rate 60 mL/min (>60); Est Glom Filt Rate - Afr Amer 73 mL/min (>60); Estimated Creatinine Clearance 46.78 ml/min; Glucose 111 mg/dL (74-106); Magnesium 2.2 mg/dL (1.6-2.6); Potassium 4.6 mmol/L (3.5-5.1); Sodium Level 138 mmol/L (136-145); Thyroid Stim Hormone (TSH) 6.39 uIU/mL (0.358-3.74); Troponin-I HS 4 pg/mL (3.0-54.0)
--- NOTE | 2022-01-27 00:49 | EX.ED.DYSGE1 ---
HPI History of Present Illness Chief Complaint: Shortness of Breath Narrative Narrative: Patient is a 71-year-old female with past medical history of hypertension and paroxysmal atrial fibrillation. She states today around 6 PM she started getting intermittent bouts of hot flashes/flushing across her chest wall. She states that she would feel short of breath when this occurred. She states there is been no trauma and she denies any fevers or chills or cough. She also states that with her atrial fibrillation she can typically tell if she was in or out of this and has not felt palpitations. She does report she has been on Xarelto as previously directed and has not missed any doses. She states however as she does not have chest pain but this flushing sensation and mild shortness of breath she was concerned about a cardiac event and therefore comes in for evaluation [facility] Medical History Anxiety Arthritis Atrial fibrillation with RVR Cardiology follow-up encounter Essential (primary) hypertension Former smoker History of diverticulitis History of edema History of irregular heartbeat History of pain when walking Hx of thyroid cyst Hypertension Insomnia Normal stress echocardiogram Paroxysmal atrial fibrillation (10/2017) Paroxysmal atrial flutter (10/2017) Persistent atrial fibrillation (11/02/20) Post-menopausal Single kidney Wears glasses Home Medications fluticasone propionate 50 mcg/actuation nasal spray,suspension 15.8 ml NS DAILY PRN ALLERGIES 10/19/17 [History Last Taken 02/02/21] bismuth subsalicylate 262 mg tablet (Pepto-Bismol) 2 tablet PO Q30-60M PRN Diarrhea 10/08/20 [History Last Taken 02/02/21] cholecalciferol (vitamin D3) 25 mcg (1,000 unit) tablet (Vitamin D3) 50 mcg PO DAILY Supplement 01/20/21 [History Last Taken 02/05/21 17:00] lisinopril 5 mg tablet 10 mg PO DAILY BP 01/20/21 [History Last Taken 02/03/21 06:00] acetaminophen 500 mg tablet 1,000 mg PO Q8 #0 tabs 02/04/21 [Rx Last Taken Unknown] zolpidem 5 mg tablet 5 mg PO QHS PRN Sleep 03/09/21 [History Last Taken Unknown] sotalol 80 mg tablet 80 mg PO BID #180 tabs 02/08/22 [Rx Last Taken Unknown] rivaroxaban 20 mg tablet 20 mg PO DAILY #90 tabs 11/01/21 [Rx Last Taken Unknown] sertraline 25 mg tablet 0.5 tab PO DAILY 01/26/22 [History Last Taken Unknown] Allergy/AdvReac Type Severity Reaction Status Date / Time flecainide Allergy Left Verified 01/26/22 22:29 Bundle Branch Block/BUE tingling/leg weakness aspirin [ASA] AdvReac ONLY HAS Verified 01/26/22 22:29 ONE KIDNEY, TOLD TO AVOID cortisone AdvReac CHEST HOT Verified 01/26/22 22:29 & WEIRD NSAIDS (Non-Steroidal AdvReac ONLY HAS Verified 01/26/22 22:29 Anti-Inflamma ONE KIDNEY, TOLD TO AVOID Family History (Reviewed 06/08/21 @ 15:06 by Rea Campbell STEEL SHOT HEADER OPERATOR, STEEL SHOT HEADER OPERATOR-C) Mother Hypertension Father Hypertension Prostate cancer Leukemia Sister vein problem DVT (deep venous thrombosis) Hypertension Surgical History (Reviewed 06/08/21 @ 15:06 by Rea Campbell STEEL SHOT HEADER OPERATOR, STEEL SHOT HEADER OPERATOR-C) History of cardioversion (11/11/20) History of colon surgery History of nephrectomy Hx of appendectomy Hx of cystoscopy Social History (Reviewed 06/08/21 @ 15:06 by Rea Campbell STEEL SHOT HEADER OPERATOR, STEEL SHOT HEADER OPERATOR-C) Smoking Status: Former smoker alcohol intake: never substance use type: does not use caffeine: Yes Type: coffee Number of servings: 4 what type of physical activity do you participate in: walking frequency: daily ROS ROS ED Constitutional Constitutional ED: Denies chills or fever(s) ENT ENT ED: Denies sore throat Cardiovascular Cardiovascular: Denies chest pain, palpitations or racing heartbeat Respiratory/Chest Respiratory/Chest: Reports dyspnea; Denies cough Gastrointestinal Gastrointestinal: Denies abdominal pain, diarrhea, nausea or vomiting Genitourinary Genitourinary ED: Denies dysuria Musculoskeletal Musculoskeletal: Denies myalgias Integumentary Denies rash Neurologic Neurologic: Denies headache(s) Hematologic/Lymphatic Hematologic/Lymphatic: Denies easy bleeding or easy bruising EXAM Physical Exam Const Vital Signs: 01/26/22 22:27 01/26/22 22:40 01/27/22 00:59 Temperature 97.9 F Temperature Source Temporal Pulse Rate 59 L 82 Respiratory Rate 18 16 Respiratory Effort Normal Non-Labored Respiratory Depth Normal Respiratory Pattern Normal Blood Pressure 168/77 H 135/80 H Blood Pressure Mean 107 Pulse Ox 99 Oxygen Delivery Method Room Air Room Air Positive well nourished and well developed General Appearance ED: well developed HEENT Reports moist mucous membranes HEENT Narrative: No tongue or lip swelling. No oral lesions no airway edema or compromise Eyes PERRL and EOMs intact bilaterally Neck supple and no JVD Chest Wall palpation of chest normal Resp normal respiratory effort and clear to auscultation bilaterally Cardio regular rate and regular rhythm Rate: other Other Details: Radial pulses are +2-4 bilaterally are equal and symmetric GI normal to inspection, nondistended, normoactive bowel sounds, non-tender and non-distended GI Narrative: No voluntary guarding or rigidity no pulsatile mass Auscultation: normoactive bowel sounds Palpation: soft Extremity normal to inspection Extremity Narrative: No asymmetric edema no pitting edema negative Homans' sign bilaterally Neuro oriented x3 and CN's II-XII intact bilaterally Sensorium / Orientation: alert Psych mental status grossly normal Skin no rashes or lesions noted MDM MDM MDM Narrative Medical decision making narrative: Patient presented to the ER with stable vitals and a room air pulse ox of 99 to 100%. She reported a flushing sensation and not true chest pain but with her risk factors there is concern that she could be presenting atypically so cardiac work-up was ordered. The patient's heart rhythm is normal sinus and she is on Xarelto and has not missed doses therefore I do not feel there is concern for PE. The patient's work-up revealed no clinically significant findings and her vitals remained stable. Therefore at this time as her exam and work-up does not reveal obvious lung pathology or cardiac damage as the cause of her flushing and shortness of breath and her vitals are stable I do not feel there is need for further work-up and she can have this further evaluated on an outpatient basis Lab Data Attestation: I reviewed the patient's lab results. Labs: Laboratory Results - last 24 hr 01/26/22 01/26/22 22:39 22:39 WBC 7.2 RBC 4.49 Hgb 14.3 Hct 43.2 MCV 96.2 MCH 31.8 MCHC 33.1 RDW Std Deviation 46.5 H RDW Coeff of Priscilla 13.1 Plt Count 236 MPV 10.3 Immature Gran % (Auto) 0.700 Neut % (Auto) 63.8 Lymph % (Auto) 23.7 [place] % (Auto) 8.8 Eos % (Auto) 2.2 Baso % (Auto) 0.8 Absolute Neuts (auto) 4.6 Absolute Lymphs (auto) 1.70 Nucleated RBC % 0 Sodium 138 Potassium 4.6 Chloride 106 Carbon Dioxide 27.0 Anion Gap 5 BUN 16 Creatinine 0.98 Estim Creat Clear Calc 46.78 Est GFR (MDRD) Af Amer 73 Est GFR (MDRD) Non-Af 60 BUN/Creatinine Ratio 16.4 Glucose 111 H Calcium 9.4 Magnesium 2.2 Troponin I High Sens 4 TSH 6.39 H Radiography Diagnostic Testing: Clinical Impression(s) from Imaging Studies Chest X-Ray 01/26/22 21:21 IMPRESSION: Degenerative changes, as described above. No demonstrated acute cardiopulmonary process. There is no major interval change. Electronically Signed: Lencho Yoo DO at 23:34 EDT Reading Location ID and State: [address] [place] [address] Tel [phone], Service support , 2 view chest x-ray as interpreted by the emergency medicine physician reveals no acute infiltrate pneumothorax or pleural effusion Discharge Plan Triage Chief Complaint: Shortness of Breath ED Provider: Bryce Lewis Dx/Rx/DC Orders Clinical Impression: Dyspnea, Paroxysmal atrial fibrillation Instructions: ED Dyspnea Prescriptions: No Action Pepto-Bismol 262 mg tablet 2 tablet PO Q30-60M PRN (Reason: Diarrhea) Rx Instructions: do not exceed 16 tabs per 24 hrs zolpidem 5 mg tablet 5 mg PO QHS PRN (Reason: Sleep) fluticasone propionate 9.9 ML spray,suspension 15.8 ml NS DAILY PRN (Reason: ALLERGIES) cholecalciferol (vitamin D3) [Vitamin D3] 25 mcg (1,000 unit) Tablet 50 mcg PO DAILY lisinopril 5 mg tablet 10 mg PO DAILY acetaminophen 500 mg Tablet 1,000 mg PO Q8 Qty: 0 0RF Rx Instructions: Do not take more than 3000 mg Tylenol in a 24-hour period. sertraline 25 mg tablet 0.5 tab PO DAILY Label Comments: take 1 tablet by mouth once daily sotalol 80 mg tablet 80 mg PO BID Qty: 180 3RF rivaroxaban 20 mg tablet 20 mg PO DAILY Qty: 90 3RF Label Comments: LAST DOSE 01/28/21 Primary Care Provider: Skye Caruso Referrals: Skye Caruso MD [Primary Care Provider] - Disposition Disposition: Home, Self Care Discharge Date/Time: 01/27/22 01:00
[2022-01-27 00:59] VITALS: BP 135/80; PULSE 82; RESP 16
== END 2022-01-27 01:00 | disposition home or self-care (01) ==
PROVIDERS: Emergency Provider Emergency Medicine; PCP Internal Medicine; Visit Provider Emergency Medicine
DX: R06.02 Shortness of breath (principal); I48.0 Paroxysmal atrial fibrillation; I10 Essential (primary) hypertension; M19.90 Unspecified osteoarthritis, unspecified site; F41.9 Anxiety disorder, unspecified; Z87.891 Personal history of nicotine dependence; Z79.899 Other long term (current) drug therapy
CPT/HCPCS: 71046; 80048; 83735; 84443; 84484; 85025; 93005; 99283; A4216

== ENCOUNTER → 2023-03-07 | Outpatient (CLI) | payer MEDICARE, BC, SELFPAY | END | disposition home or self-care (01) | LOC: PSN 11:59 | PROVIDERS: PCP Internal Medicine; Referring Provider Nurse Practitioner Gerontology; Visit Provider Nurse Practitioner Gerontology | DX: R00.1 Bradycardia, unspecified (principal) | CPT/HCPCS: 93225; 93226 ==

== ENCOUNTER 2023-04-13 12:37 | Emergency (ER) | payer MEDICARE, BC, SELFPAY ==
[2023-04-13] VITALS (10 sets, daily range): BP systolic 113–178; BP diastolic 61–107; PULSE 56–122; RESP 13–20; TEMP 36.6; O2SAT 96–100; BMI 25.5
--- NOTE | 2023-04-13 13:06 | EKG12_ITS ---
Test Reason : PALP Blood Pressure : / mmHG Vent. Rate : 141 BPM Atrial Rate : 000 BPM P-R Int : 000 ms QRS Dur : 084 ms QT Int : 280 ms P-R-T Axes : 000 060 -58 degrees QTc Int : 428 ms Critical Test Result: High HR Atrial fibrillation with rapid ventricular response Nonspecific ST and T wave abnormality Abnormal ECG Confirmed by JOSE MIGUEL KNIGHT, MEDARDO ([id number]), acquisitions editor JOLENE FAJARDO ([id number]) on 04/17/2023 2:17:57 PM Referred By: KESHIA/SHAYY Confirmed By:MEDARDO GILLESPIE MD
--- NOTE | 2023-04-13 13:08 | EDS_ITS ---
HPI History of Present Illness Chief Complaint: Palpitations Informant: patient Narrative Narrative: 73-year-old female presenting to the emergency room with atrial fibrillation. Patient has a history of atrial fibrillation and is currently on sotalol 40 mg twice a day as well as Xarelto. She has not missed any doses of her medications. She states she last saw cardiology (Dr. Thapa) in January. She had a Holter monitor performed at that time that did not show any runs of A-fib. Patient states that she has had cardioversion in the past. She has been on flecainide in the past. In January she had her sotalol decreased from 80 mg twice a day to 40 mg twice a day due to bradycardia. She denies any chest pain. She had an echocardiogram that showed dilated left and right atrium. [facility] Medical History Anxiety Arthritis Atrial fibrillation with RVR Dyspnea Essential (primary) hypertension Former smoker History of diverticulitis History of edema History of pain when walking Hx of thyroid cyst Insomnia Normal stress echocardiogram Paroxysmal atrial fibrillation (10/2017) Paroxysmal atrial flutter (10/2017) Persistent atrial fibrillation (11/02/20) Post-menopausal Single kidney Wears glasses Home Medications fluticasone propionate 50 mcg/actuation nasal spray,suspension 15.8 ml NS DAILY PRN ALLERGIES 10/19/17 [History Last Taken 02/02/21] bismuth subsalicylate 262 mg tablet (Pepto-Bismol) 2 tablet PO Q30-60M PRN Diarrhea 10/08/20 [History Last Taken 02/02/21] cholecalciferol (vitamin D3) 25 mcg (1,000 unit) tablet (Vitamin D3) 50 mcg PO DAILY Supplement 01/20/21 [History Last Taken 02/05/21 17:00] acetaminophen 500 mg tablet 1,000 mg (2 x 500 mg) PO Q8 #0 tabs 02/04/21 [Rx Last Taken Unknown] zolpidem 5 mg tablet 5 mg PO QHS PRN Sleep 03/09/21 [History Last Taken Unknown] sertraline 25 mg tablet 25 mg PO DAILY 08/09/22 [History Last Taken Unknown] rivaroxaban 20 mg tablet 20 mg PO DAILY #90 tabs 10/31/22 [Rx Last Taken Unknown] lisinopril 30 mg tablet 30 mg PO DAILY #90 tabs 11/14/22 [Rx Last Taken Unknown] sotalol 80 mg tablet 40 mg (1/2 x 80 mg) PO BID #180 tabs 03/10/23 [Rx Last Taken Unknown] Allergy/AdvReac Type Severity Reaction Status Date / Time flecainide Allergy Left Verified 04/13/23 12:39 Bundle Branch Block/BUE tingling/leg weakness aspirin [ASA] AdvReac ONLY HAS Verified 04/13/23 12:39 ONE KIDNEY, TOLD TO AVOID cortisone AdvReac CHEST HOT Verified 04/13/23 12:39 & WEIRD NSAIDS (Non-Steroidal AdvReac ONLY HAS Verified 04/13/23 12:39 Anti-Inflamma ONE KIDNEY, TOLD TO AVOID Family History Mother Hypertension Father Hypertension Prostate cancer Leukemia Sister vein problem DVT (deep venous thrombosis) Hypertension Surgical History History of cardioversion (11/11/20) History of colon surgery History of left knee replacement History of nephrectomy Hx of appendectomy Hx of cystoscopy Social History Smoking Status: Former smoker alcohol intake: never substance use type: does not use caffeine: Yes Type: coffee Number of servings: 4 what type of physical activity do you participate in: walking frequency: daily ROS ROS ED Constitutional Constitutional ED: Denies chills or weight loss Eyes Eyes: Denies change in vision or diplopia ENT ENT ED: Denies ear pain, rhinorrhea or sore throat Cardiovascular Cardiovascular: Reports palpitations and racing heartbeat; Denies chest pain or orthopnea Respiratory/Chest Respiratory/Chest: Denies cough, dyspnea or orthopnea Gastrointestinal Gastrointestinal: Denies abdominal pain, diarrhea, nausea or vomiting Genitourinary Genitourinary ED: Denies dysuria, hematuria or urinary frequency Musculoskeletal Musculoskeletal: Denies arthralgias or myalgias Integumentary Denies abscess or rash Neurologic Neurologic: Denies headache(s) or weakness Psychiatric Psychiatric: Denies anxiety, depression, suicidal ideation or suicidal thoughts Endocrine Endocrinology: Denies polydipsia, polyphagia or polyuria Allergic/Immunologic Allergic/Immunologic ED: Denies mouth swelling, tongue swelling or urticaria EXAM Physical Exam Const Vital Signs: 04/13/23 12:38 04/13/23 14:11 04/13/23 14:43 Temperature 97.8 F Temperature Source Temporal Pulse Rate 95 118 H 122 H Pulse Rate [1 (Initial Baseline)] Pulse Rate [3] Pulse Rate [4] Respiratory Rate 18 13 Respiratory Rate [1 (Initial Baseline)] Respiratory Rate [3] Respiratory Rate [4] Blood Pressure 178/107 H 138/96 H Blood Pressure [1 (Initial Baseline)] Blood Pressure [4] Blood Pressure Mean 130 Pulse Ox 98 100 100 Oxygen Delivery Method Room Air Room Air Nasal Cannula Oxygen Delivery Method [1 (Initial Baseline)] Oxygen Delivery Method [3] Oxygen Delivery Method [4] Oxygen Flow Rate (L/min) 2 Oxygen Flow Rate (L/min) [1 (Initial Baseline)] Oxygen Flow Rate (L/min) [4] 04/13/23 14:54 04/13/23 15:03 04/13/23 15:08 Temperature Temperature Source Pulse Rate Pulse Rate [1 (Initial Baseline)] 121 H Pulse Rate [3] 119 H Pulse Rate [4] 61 Respiratory Rate Respiratory Rate [1 (Initial Baseline)] 16 Respiratory Rate [3] 20 H Respiratory Rate [4] 16 Blood Pressure Blood Pressure [1 (Initial Baseline)] 118/88 H Blood Pressure [4] 135/81 H Blood Pressure Mean Pulse Ox Oxygen Delivery Method Nasal Cannula Room Air Oxygen Delivery Method [1 (Initial Baseline)] Nasal Cannula Oxygen Delivery Method [3] Nasal Cannula Oxygen Delivery Method [4] Nasal Cannula Oxygen Flow Rate (L/min) 99 Oxygen Flow Rate (L/min) [1 (Initial Baseline)] 2 Oxygen Flow Rate (L/min) [4] 4 04/13/23 15:13 04/13/23 16:00 04/13/23 16:36 Temperature Temperature Source Pulse Rate 56 L 59 L Pulse Rate [1 (Initial Baseline)] Pulse Rate [3] Pulse Rate [4] Respiratory Rate 13 13 Respiratory Rate [1 (Initial Baseline)] Respiratory Rate [3] Respiratory Rate [4] Blood Pressure 134/71 H 150/78 H Blood Pressure [1 (Initial Baseline)] Blood Pressure [4] Blood Pressure Mean 92 102 Pulse Ox 97 97 Oxygen Delivery Method Room Air Room Air Room Air Oxygen Delivery Method [1 (Initial Baseline)] Oxygen Delivery Method [3] Oxygen Delivery Method [4] Oxygen Flow Rate (L/min) Oxygen Flow Rate (L/min) [1 (Initial Baseline)] Oxygen Flow Rate (L/min) [4] Positive well nourished and well developed General Appearance ED: well developed HEENT Reports normocephalic, head/scalp atraumatic and moist mucous membranes Eyes PERRL and EOMs intact bilaterally Neck no lymphadenopathy, supple and no JVD Resp normal respiratory effort and clear to auscultation bilaterally Cardio no murmurs Rate: tachycardic Rhythm: abnormal rhythm irregularly irregular GI normal to inspection, nondistended, normoactive bowel sounds and non-tender Palpation: soft Back/Spine no CVA tenderness and normal ROM Extremity normal to inspection General Extremety ED: Negative for edema General Extremity: Negative for edema Neuro oriented x3 and CN's II-XII intact bilaterally Sensorium / Orientation: alert Motor Exam: strength 5/5 throughout Psych mental status grossly normal Mood & Affect: Negative for depressed or tearful Skin no rashes or lesions noted and no wounds MDM MDM MDM Narrative Medical decision making narrative: EKG concerns atrial fibrillation with rapid ventricular response. White count 6.2 with a troponin of 7. Sodium potassium magnesium are within normal limits. My interpretation of the x-ray no acute status. I discussed the case with the patient's milk drier Dr. Thapa. We are both in agreement that it would be appropriate to cardiovert the patient and if successful be able to discharge her home. She has not missed any doses of her Xarelto has otherwise been a very compliant individual with successful cardioversion in the past. Patient provided written and oral informed consent for the use of fentanyl and propofol Versed procedural sedation for a cardioversion procedure. Patient received a total of 25 mcg of fentanyl followed by 0.5 mg bolus of propofol and then 0.25 mg/kg aliquots of propofol until adequate sedation was achieved. A total of 70 mg of propofol was needed to achieve sedation. A synchronized 200 J biphasic shock was delivered with return to sinus rhythm. Patient was allowed to recover. Total procedure time was 7 minutes. The patient will continue to be observed. She remains in normal sinus rhythm she will be discharged home with follow-up with cardiology. She did receive return instructions. History & Record Review Discussion w/independent historian: Patient and Significant other Additional record(s) reviewed:: Prior outpatient record, Prior ED visit and Prior labs Lab Data Attestation: I reviewed the patient's lab results. Labs: Laboratory Results - last 24 hr 04/13/23 12:45 WBC 6.2 RBC 5.05 Hgb 15.3 H Hct 47.6 H MCV 94.3 MCH 30.3 MCHC 32.1 RDW Std Deviation 43.5 RDW Coeff of Priscilla 12.5 Plt Count 230 MPV 10.1 Immature Gran % (Auto) 0.500 Neut % (Auto) 71.9 H Lymph % (Auto) 17.7 L [place] % (Auto) 6.8 Eos % (Auto) 2.3 Baso % (Auto) 0.8 Absolute Neuts (auto) 4.5 Absolute Lymphs (auto) 1.10 Nucleated RBC % 0 Sodium 137 Potassium 4.5 Chloride 107 Carbon Dioxide 24.0 Anion Gap 6 BUN 18 Creatinine 0.98 Estim Creat Clear Calc 45.47 Est GFR (MDRD) Af Amer 72 Est GFR (MDRD) Non-Af 60 BUN/Creatinine Ratio 18.4 Glucose 119 H Calcium 9.4 Magnesium 2.4 Troponin I High Sens 7 Radiography Diagnostic Testing: Clinical Impression(s) from Imaging Studies Chest X-Ray 04/13/23 13:14 IMPRESSION: Degenerative changes, as described above. No demonstrated acute cardiopulmonary process. Electronically Signed: Lyssa Coleman MD at 13:49 EDT Reading Location ID and State: [address] [place] [address] Tel , Service support , EKG Initial EKG: Attestation: I personally reviewed and interpreted this EKG as follows: Comments: Atrial fibrillation with rapid ventricular response of 141 bpm. Follow-up EKG: Attestation: I personally reviewed and interpreted this EKG as follows: Comments: Sinus bradycardia with ventricular rate of 56 bpm. No concerning features of ACS noted. Management Discussion w/another healthcare provider: Tender Coordinator (Cardiology (Dr. Thapa)) Procedures Procedural Sedation 1 (Initial Baseline): Consent Signed: Yes Any Problems With Anesthesia: No You/Your family experience fever (hyperthermia) w/anesthesia: No Sedation medication: Propofol Dose: 70 Route: IV Maliampati Score: Class II ASA Classification: II Discharge Plan Triage Chief Complaint: Palpitations ED Provider: Jf Gallegos Dx/Rx/DC Orders Clinical Impression: Anticoagulated, Paroxysmal atrial fibrillation Instructions: AFib Dc Prescriptions: No Action Pepto-Bismol 262 mg tablet 2 tablet PO Q30-60M PRN (Reason: Diarrhea) Rx Instructions: do not exceed 16 tabs per 24 hrs zolpidem 5 mg tablet 5 mg PO QHS PRN (Reason: Sleep) fluticasone propionate 9.9 ML spray,suspension 15.8 ml NS DAILY PRN (Reason: ALLERGIES) cholecalciferol (vitamin D3) [Vitamin D3] 25 mcg (1,000 unit) Tablet 50 mcg PO DAILY acetaminophen 500 mg Tablet 1,000 mg PO Q8 Qty: 0 0RF Rx Instructions: Do not take more than 3000 mg Tylenol in a 24-hour period. sertraline 25 mg tablet 25 mg PO DAILY Patient Comments: take 1 tablet by mouth once daily rivaroxaban 20 mg tablet 20 mg PO DAILY Qty: 90 3RF Patient Comments: LAST DOSE 01/28/21 lisinopril 30 mg tablet 30 mg PO DAILY Qty: 90 3RF sotalol 80 mg tablet 40 mg PO BID Qty: 180 3RF Primary Care Provider: Skye Caruso Referrals: Sterling Thapa MD [Med Staff - Active Staff] - As soon as possible (I would recommend calling to arrange early follow-up.) Skye Caruso MD [Primary Care Provider] - Disposition Disposition: Home, Self Care
--- NOTE | 2023-04-13 13:14 | RAD_ITS ---
STUDY: X-RAY CHEST REASON FOR EXAM: Female, 73 years old. Palpitations TECHNIQUE: Single AP portable view of the chest. COMPARISON: December 27, 2021 chest x-ray FINDINGS: The lungs are clear and expanded. There is no demonstrated pleural abnormality. Normal size heart. Normal mediastinum and dimitrios. Normal visualized pulmonary arteries. Normal visualized aortic arch and descending thoracic aorta. There are diffuse degenerative changes of the visualized thoracic spine. Normal visualized ribs, clavicles, and shoulders. There is no demonstrated abnormality of the visualized soft tissue structures of the upper abdomen. RAD/Chest 1 View (Portable) IMPRESSION: Degenerative changes, as described above. No demonstrated acute cardiopulmonary process. Electronically Signed: Lyssa Coleman MD at 13:49 EDT ,
[2023-04-13 13:30] LABS: Absolute Neutrophil Count 4.5 X10^3/uL (2.0-7.7); Basophil# 0.05 X10^3/uL; Basophil% 0.8 % (0-1); Eosinophil# 0.14 X10^3/uL; Eosinophils% 2.3 % (0-5); Hematocrit 47.6 % (37-47); Hemoglobin 15.3 g/dL (12.0-15.0); Lymphocyte % 17.7 % (19-41); Mean Corp Hgb Conc 32.1 g/dL (32-36); Mean Corpuscular Hgb 30.3 pg (27.0-32.0); Mean Corpuscular Volume 94.3 fL (81-99); Mean Platelet Vol. 10.1 fl (6.2-12.0); Monocyte# 0.42 X10^3/uL; Monocyte% 6.8 % (0-10); NRBC Flagged by Analyzer 0 % (0-5); Neutrophil # 4.46 X10^3/uL (2.7-7.7); Neutrophil % 71.9 % (47-70); Platelet Count 230 K/mm3 (150-450); RBC Distribution Width CV 12.5 % (11.6-14.6); RBC Distribution Width SD 43.5 fl (35.1-43.9); Red Blood Count 5.05 M/mm3 (4.2-5.4); White Blood Count 6.2 K/mm3 (4.4-11.0)
[2023-04-13 13:40] LABS: Anion Gap 6 (5-15); BUN 18 mg/dL (7-18); BUN/Creat Ratio 18.4 RATIO (10-20); Calcium,Total 9.4 mg/dL (8.5-10.1); Chloride 107 mmol/L (98-107); Creatinine, Serum 0.98 mg/dL (0.55-1.02); EST Glomerular Filtration Rate 60 mL/min (>60); Est Glom Filt Rate - Afr Amer 72 mL/min (>60); Estimated Creatinine Clearance 45.47 ml/min; Glucose 119 mg/dL (74-106); Magnesium 2.4 mg/dL (1.6-2.6); Potassium 4.5 mmol/L (3.5-5.1); Sodium Level 137 mmol/L (136-145); Troponin-I HS 7 pg/mL (3.0-54.0)
[2023-04-13] MEDS: Propofol 200 MG/20 ML Vial IV BOLUS (15:07)
[2023-04-13] MEDS: fentaNYL 100 MCG/2 ML Ampul 50 MCG IV (15:07)
--- NOTE | 2023-04-13 16:06 | EKG12_ITS ---
Test Reason : REPEAT Blood Pressure : / mmHG Vent. Rate : 056 BPM Atrial Rate : 056 BPM P-R Int : 146 ms QRS Dur : 076 ms QT Int : 410 ms P-R-T Axes : 067 045 019 degrees QTc Int : 395 ms Sinus bradycardia with sinus arrhythmia Otherwise normal ECG Confirmed by JOSE MIGUEL KNIGHT, MEDARDO ([id number]), film editor JOLENE FAJARDO ([id number]) on 04/17/2023 2:22:27 PM Referred By: Confirmed By:MEDARDO GILLESPIE MD
== END 2023-04-13 16:55 | disposition home or self-care (01) ==
PROVIDERS: Emergency Provider Emergency Medicine; PCP Internal Medicine; Visit Provider Emergency Medicine
DX: I48.0 Paroxysmal atrial fibrillation (principal); Z87.891 Personal history of nicotine dependence; I10 Essential (primary) hypertension; Z79.01 Long term (current) use of anticoagulants
CPT/HCPCS: 71045; 80048; 83735; 84484; 85025; 93005; 96374; 99283; J7030; A4216

== ENCOUNTER → 2023-10-19 | Outpatient (CLI) | payer MEDICARE, BC, SELFPAY ==
[2023-10-19 16:38] LABS: BNP,B-Type NATRIURETIC PEPTIDE 167.8 pg/mL (0-100)
== END | disposition home or self-care (01) ==
LOC: LAB 13:53
PROVIDERS: PCP Internal Medicine; Referring Provider Internal Medicine Cardiovascular Disease; Visit Provider Internal Medicine Cardiovascular Disease
DX: R06.02 Shortness of breath (principal); R60.9 Edema, unspecified
CPT/HCPCS: 36415; 83880

== ENCOUNTER → 2023-11-06 | Outpatient (CLI) | payer MEDICARE, BC, SELFPAY ==
[2023-11-06 14:33] LABS: Anion Gap 3 (5-15); BUN 20 mg/dL (7-18); BUN/Creat Ratio 21.3 RATIO (10-20); Calcium,Total 9.9 mg/dL (8.5-10.1); Chloride 105 mmol/L (98-107); Creatinine, Serum 0.94 mg/dL (0.55-1.02); EST Glomerular Filtration Rate 62 mL/min (>60); Est Glom Filt Rate - Afr Amer 76 mL/min (>60); Glucose 134 mg/dL (74-106); Potassium 4.7 mmol/L (3.5-5.1); Sodium Level 137 mmol/L (136-145)
== END | disposition home or self-care (01) ==
LOC: LAB 13:47
PROVIDERS: PCP Internal Medicine; Referring Provider Internal Medicine Cardiovascular Disease; Visit Provider Internal Medicine Cardiovascular Disease
DX: R06.02 Shortness of breath (principal); R60.9 Edema, unspecified
CPT/HCPCS: 36415; 80048

== ENCOUNTER → 2023-11-29 | Outpatient (CLI) | payer MEDICARE, BC, SELFPAY ==
--- NOTE | 2023-11-29 12:54 | ECHOD_ITS ---
Reason For Study: SHORTNESS OF BREATH Procedure This was a 2D Doppler, Color Flow transthoracic echocardiogram. Exam performed in department. Left Ventricle Normal left ventricle. Left ventricular systolic function is normal. The left ventricular ejection fraction is 60 %. No regional wall motion abnormalities noted. Right Ventricle Normal RV size. Normal systolic function. Atria Normal left atrium. Normal right atrium. Mitral Valve Normal mitral valve. Tricuspid Valve Normal tricuspid valve. Mild to moderate (1-2+) tricuspid valve insufficiency. Pulmonary artery systolic pressure is 50 mmHg. Mild pulmonary hypertension. Aortic Valve Trisinus/trileaflet aortic valve. Pulmonic Valve Normal pulmonic valve. Great Vessels Normal aortic root. The pulmonary artery is normal size. Normal inferior vena cava. Pericardium/Pleural No pericardial effusion. MMode/2D Measurements & Calculations LVIDd: 4.6 cm IVSd: 0.93 cm LVOT diam: 2.0 cm LVIDs: 2.5 cm LVPWd: 0.64 cm LVOT area: 3.0 cm2 RVDd: 3.3 cm FS: 45.1 % Ao root diam: 2.9 cm LAV(MOD-bp): 61.3 ml LVAd ap4: 19.9 cm2 LAV(MOD-bp) Indexed: 35.6 ml/m2 LVLd ap4: 6.1 cm LAV(MOD-sp2): 66.7 ml EDV(MOD-sp4): 52.5 ml LAV(MOD-sp4): 57.0 ml EDV(sp4-el): 55.2 ml LVAs ap4: 11.5 cm2 LVLs ap4: 5.3 cm ESV(MOD-sp4): 22.0 ml ESV(sp4-el): 21.2 ml EF(MOD-sp4): 58.1 % EF(sp4-el): 61.7 % LVAd ap2: 23.0 cm2 SV(MOD-sp4): 30.5 ml SV(MOD-sp2): 38.6 ml LVLd ap2: 6.9 cm EDV(MOD-sp2): 64.7 ml EDV(sp2-el): 65.5 ml LVAs ap2: 13.1 cm2 LVLs ap2: 5.6 cm ESV(MOD-sp2): 26.1 ml ESV(sp2-el): 25.9 ml EF(MOD-sp2): 59.6 % SV(sp4-el): 34.0 ml LA dimension(2D): 4.3 cm LA A4 area: 20.3 cm2 RA A4 area: 13.6 cm2 TAPSE: 2.4 cm Time Measurements MV dec time: 0.11 sec Doppler Measurements & Calculations MV E max marcin: 61.9 cm/sec Lat Peak E' Marcin: 11.2 cm/sec Med Peak E' Marcin: 9.6 cm/sec MV A max marcin: 36.4 cm/sec E/E' lat: 5.5 E/E' med: 6.4 MV E/A: 1.7 Ao V2 max: 126.8 cm/sec LV V1 max: 88.0 cm/sec MV dec slope: 558.0 cm/sec2 Ao max P.4 mmHg LV V1 max P.1 mmHg Ao V2 mean: 83.6 cm/sec LV V1 mean P.9 mmHg Ao mean P.2 mmHg LV V1 mean: 64.5 cm/sec Ao V2 VTI: 30.5 cm LV V1 VTI: 22.5 cm AV (velocity ratio): 0.74 BRUNO(I,D): 2.2 cm2 BRUNO(V,D): 2.1 cm2 SV(LVOT): 67.5 ml PA V2 max: 85.2 cm/sec TR max marcin: 340.9 cm/sec PA max PG (full): 0.18 mmHg TR max P.5 mmHg ECHO/Echo Complete Interpretation Summary Normal left ventricle. Left ventricular systolic function is normal. The left ventricular ejection fraction is 60 %. Mild to moderate (1-2+) tricuspid valve insufficiency. Pulmonary artery systolic pressure is 50 mmHg. Mild pulmonary hypertension. Ordering Physician: Sterling Thapa Referring Physician: Skye Caruso M.D. Performed By: Tova Encarnacion RDCS and Student
== END | disposition home or self-care (01) ==
LOC: CVS 12:53
PROVIDERS: PCP Internal Medicine; Referring Provider Internal Medicine Cardiovascular Disease; Visit Provider Internal Medicine Cardiovascular Disease
DX: R06.02 Shortness of breath (principal); R60.9 Edema, unspecified; R79.89 Other specified abnormal findings of blood chemistry
CPT/HCPCS: 93306

== ENCOUNTER 2024-09-16 13:50 | Emergency (ER) | payer MEDICARE, BC, SELFPAY ==
[2024-09-16] VITALS (9 sets, daily range): BP systolic 115–152; BP diastolic 69–102; PULSE 54–143; RESP 11–18; TEMP 36.3–37.1; O2SAT 95–99; BMI 25.7
--- NOTE | 2024-09-16 14:43 | EKG12_ITS ---
Test Reason : PALP Blood Pressure : */* mmHG Vent. Rate : 128 BPM Atrial Rate : 300 BPM P-R Int : * ms QRS Dur : 82 ms QT Int : 314 ms P-R-T Axes : * 64 -14 degrees QTcB Int : 458 ms Atrial flutter with variable A-V block ST & T wave abnormality, consider anterior ischemia Abnormal ECG Confirmed by JOSE MIGUEL KNIGHT, MEDARDO ([id number]), editorial clerk KAEL MENDEZ ([id number]) on 09/17/2024 8:17:10 AM Referred By: MANSOOR/GIAN Confirmed By: MEDARDO GILLESPIE MD
[2024-09-16 14:57] LABS: Absolute Lymphocyte Count 1.19 X10^3/uL (0.83-4.51); Absolute Neutrophil Count 7.2 X10^3/uL (2.0-7.7); Basophil# 0.06 X10^3/uL; Basophil% 0.6 % (0-1); Eosinophil# 0.15 X10^3/uL; Eosinophils% 1.6 % (0-5); Hematocrit 46.3 % (37-47); Hemoglobin 15.3 g/dL (12.0-15.0); Lymphocyte # 1.19 X10^3/ul (0.83-4.51); Lymphocyte % 12.8 % (19-41); Mean Corpuscular Hgb 30.2 pg (27.0-32.0); Mean Corpuscular Volume 91.3 fL (81-99); Mean Platelet Vol. 9.5 fl (6.2-12.0); Monocyte# 0.65 X10^3/uL; NRBC Flagged by Analyzer 0 % (0-5); Neutrophil % 77.6 % (47-70); Platelet Count 297 K/mm3 (150-450); RBC Distribution Width CV 12.9 % (11.6-14.6); RBC Distribution Width SD 42.9 fl (35.1-43.9); Red Blood Count 5.07 M/mm3 (4.2-5.4); White Blood Count 9.3 K/mm3 (4.4-11.0)
--- NOTE | 2024-09-16 15:10 | RAD_ITS ---
PROCEDURE: CHEST 1 VIEW (PORTABLE) 09/16/2024 REASON FOR EXAM: CHEST PAIN TECHNIQUE: Frontal view of the chest. COMPARISON: 06 February 2021 FINDINGS: The heart size is normal. The lungs are clear. Demineralization of the bones. Stable examination when compared to prior. RAD/Chest 1 View (Portable) IMPRESSION: No measurable change. Reading Location: [id number]
[2024-09-16 15:16] LABS: Anion Gap 12 (5-15); BUN 13 mg/dL (4-19); BUN/Creat Ratio 15.5 RATIO (10-20); Calcium,Total 10.5 mg/dL (7.6-11.0); Carbon Dioxide 26.3 mmol/L (21.0-32.0); Chloride 104 mmol/L (98-108); Creatinine, Serum 0.86 mg/dL (0.70-1.20); EST Glomerular Filtration Rate 72 (>60); Estimated Creatinine Clearance 56.04 ml/min (50-250); Glucose 106 mg/dL (70-99); Potassium 4.1 mmol/L (3.3-5.1); Sodium Level 142 mmol/L (133-145); Troponin T High Sensitivity 13 ng/L (<=14)
--- NOTE | 2024-09-16 15:16 | EDS_ITS ---
HPI History of Present Illness Chief Complaint: Palpitations Informant: patient and spouse/S.O. Narrative Narrative: Recurrent palpitations 11:30 PM. Lightheaded symptoms of dyspnea. No chest pains. History of atrial fibrillation since [address] Thapa. Ablation x 2 last time in 2022. Daily Xarelto and sotalol twice a day with no missed doses last dose this morning. Recovering from COVID symptoms 4 weeks ago currently mild productive cough left. No fevers. No vomiting or diarrhea. Since ablation she states she has a episode that she felt A-fib rhythm for 2 hours none since then. She was told to take a dose of Lasix this morning. She went to the office and was told to go to the ER for treatment. Last meal 11:30 AM nearly 4 hours ago. No allergies to sedation. No alcohol use history. Prior similar symptoms: Yes PFSH PFS Medical History Dyspnea Wears glasses Post-menopausal Arthritis History of diverticulitis Former smoker History of pain when walking History of edema Normal stress echocardiogram Hx of thyroid cyst Persistent atrial fibrillation (11/02/20) Paroxysmal atrial flutter (10/2017) Paroxysmal atrial fibrillation (10/2017) Essential (primary) hypertension Single kidney Insomnia Anxiety Atrial fibrillation with RVR Home Medications ?Medication ?Instructions ?Recorded ?Last Taken ?Type fluticasone propionate 50 15.8 ml NS DAILY PRN ALLERGI ES 10/19/17 02/02/21 History mcg/actuation nasal spray,suspension bismuth subsalicylate 262 mg 2 tablet PO Q30-60M PRN D iarrhea 10/08/20 02/02/21 History tablet (Pepto-Bismol) cholecalciferol (vitamin D3) 25 50 mcg PO DAILY Supple ment 01/20/21 02/05/21 17:00 History mcg (1,000 unit) tablet (Vitamin D3) sertraline 25 mg tablet 25 mg PO DAILY 08/09/22 Unkn own History acetaminophen 500 mg tablet 1,000 mg PO Q8 PRN 4 Unknown History biotin 1,000 mcg chewable tablet 1,000 mcg PO DAILY Unknown History losartan 100 mg tablet 100 mg PO DAILY #90 tabs Unknown Rx zolpidem 5 mg tablet 5 mg PO QHS Sleep 09/26/23 U nknown History rivaroxaban 20 mg tablet 20 mg PO DAILY #90 tabs 10/02 10/24 Unknown Rx furosemide 40 mg tablet 40 mg PO DAILY PRN edema #30 tabs 12/04/23 Unknown Rx sotalol 80 mg tablet 80 mg PO BID #180 tabs 07/15 Unknown Rx Allergy/AdvReac Type Severity Reaction Status Date / Time flecainide Allergy Left Verified 04/30/24 11:20 Bundle Branch Block/BUE tingling/leg weakness aspirin (ASA) AdvReac ONLY HAS Verified 04/30/24 11:20 ONE KIDNEY, TOLD TO AVOID cortisone AdvReac CHEST HOT Verified 04/30/24 11:20 & WEIRD NSAIDS (Non-Steroidal AdvReac ONLY HAS Verified 04/30/24 11:20 Anti-Inflamma ONE KIDNEY, TOLD TO AVOID Family History Mother Hypertension Father Hypertension Prostate cancer Leukemia Sister vein problem DVT (deep venous thrombosis) Hypertension Surgical History History of left knee replacement Hx of cystoscopy History of cardioversion (11/11/20) History of nephrectomy History of colon surgery Hx of appendectomy Social History Smoking Status: Former smoker alcohol intake: never substance use type: does not use caffeine: Yes Type: coffee Number of servings: 4 what type of physical activity do you participate in: walking frequency: daily ROS ROS ED Constitutional Constitutional ED: Denies chills, fever(s) or sweats ENT ENT ED: Denies sore throat Cardiovascular Cardiovascular: Reports palpitations; Denies chest pain, leg edema or racing heartbeat Respiratory/Chest Respiratory/Chest: Reports cough and dyspnea; Denies dyspnea on exertion Gastrointestinal Gastrointestinal: Denies abdominal pain, diarrhea, nausea or vomiting Genitourinary Genitourinary ED: Denies dysuria, hematuria or urinary frequency Musculoskeletal Musculoskeletal: Denies back pain, extremity pain or neck pain Integumentary Denies rash or wounds Neurologic Neurologic: Denies headache(s), paresthesias or weakness EXAM Physical Exam Const Vital Signs: 09/16/24 13:51 09/16/24 14:51 09/16/24 14:55 Temperature 97.4 F L Temperature Source Temporal Pulse Rate 136 H 131 H Pulse Rate [1 (Initial Baseline)] Pulse Rate [2] Respiratory Rate 16 13 Respiratory Rate [1 (Initial Baseline)] Respiratory Rate [2] Respiratory Effort Blood Pressure 152/100 H 147/102 H Blood Pressure [1 (Initial Baseline)] Blood Pressure [2] Blood Pressure Mean 117 117 Baseline BP Pulse Ox 99 98 Oxygen Delivery Method Room Air Room Air Room Air Oxygen Delivery Method [1 (Initial Baseline)] Oxygen Delivery Method [2] Oxygen Flow Rate (L/min) Oxygen Flow Rate (L/min) [2] EtCo2 (Normal 35-45 , high quality CPR 10-20 & ROSC>/=40mmHg EtCo2 (Normal 35-45 , high quality CPR 10-20 & ROSC>/=40mmHg [1 (Initial Baseline)] EtCo2 (Normal 35-45 , high quality CPR 10-20 & ROSC>/=40mmHg [2] 09/16/24 14:57 09/16/24 15:13 09/16/24 15:13 Temperature Temperature Source Pulse Rate 143 H Pulse Rate [1 (Initial Baseline)] Pulse Rate [2] Respiratory Rate 18 Respiratory Rate [1 (Initial Baseline)] Respiratory Rate [2] Respiratory Effort Normal Non-Labored Blood Pressure 144/90 H Blood Pressure [1 (Initial Baseline)] Blood Pressure [2] Blood Pressure Mean Baseline BP 144/90 Pulse Ox 98 Oxygen Delivery Method Room Air Oxygen Delivery Method [1 (Initial Baseline)] Oxygen Delivery Method [2] Oxygen Flow Rate (L/min) Oxygen Flow Rate (L/min) [2] EtCo2 (Normal 35-45 , high quality CPR 10-20 & ROSC>/=40mmHg 30 30 EtCo2 (Normal 35-45 , high quality CPR 10-20 & ROSC>/=40mmHg [1 (Initial Baseline)] EtCo2 (Normal 35-45 , high quality CPR 10-20 & ROSC>/=40mmHg [2] 09/16/24 15:13 09/16/24 15:36 09/16/24 15:55 Temperature Temperature Source Pulse Rate 141 H 65 Pulse Rate [1 (Initial Baseline)] 139 H Pulse Rate [2] 66 Respiratory Rate 11 L 16 Respiratory Rate [1 (Initial Baseline)] 16 Respiratory Rate [2] 16 Respiratory Effort Blood Pressure 148/98 H 117/91 H Blood Pressure [1 (Initial Baseline)] 144/90 H Blood Pressure [2] 117/91 H Blood Pressure Mean 114 Baseline BP Pulse Ox 98 98 Oxygen Delivery Method Nasal Cannula Oxygen Delivery Method [1 (Initial Baseline)] Room Air Oxygen Delivery Method [2] Nasal Cannula Oxygen Flow Rate (L/min) 2 Oxygen Flow Rate (L/min) [2] 2 EtCo2 (Normal 35-45 , high quality CPR 10-20 & ROSC>/=40mmHg 29 EtCo2 (Normal 35-45 , high quality CPR 10-20 & ROSC>/=40mmHg [1 (Initial Baseline)] 32 EtCo2 (Normal 35-45 , high quality CPR 10-20 & ROSC>/=40mmHg [2] 31 09/16/24 16:00 09/16/24 16:05 09/16/24 16:10 Temperature Temperature Source Pulse Rate 61 61 64 Pulse Rate [1 (Initial Baseline)] Pulse Rate [2] Respiratory Rate 18 16 16 Respiratory Rate [1 (Initial Baseline)] Respiratory Rate [2] Respiratory Effort Blood Pressure 115/69 116/86 H 135/73 H Blood Pressure [1 (Initial Baseline)] Blood Pressure [2] Blood Pressure Mean Baseline BP Pulse Ox 99 99 99 Oxygen Delivery Method Room Air Room Air Room Air Oxygen Delivery Method [1 (Initial Baseline)] Oxygen Delivery Method [2] Oxygen Flow Rate (L/min) Oxygen Flow Rate (L/min) [2] EtCo2 (Normal 35-45 , high quality CPR 10-20 & ROSC>/=40mmHg 27 30 28 EtCo2 (Normal 35-45 , high quality CPR 10-20 & ROSC>/=40mmHg [1 (Initial Baseline)] EtCo2 (Normal 35-45 , high quality CPR 10-20 & ROSC>/=40mmHg [2] 09/16/24 17:05 Temperature 98.7 F Temperature Source Pulse Rate 54 L Pulse Rate [1 (Initial Baseline)] Pulse Rate [2] Respiratory Rate 18 Respiratory Rate [1 (Initial Baseline)] Respiratory Rate [2] Respiratory Effort Blood Pressure 137/73 H Blood Pressure [1 (Initial Baseline)] Blood Pressure [2] Blood Pressure Mean 94 Baseline BP Pulse Ox 97 Oxygen Delivery Method Oxygen Delivery Method [1 (Initial Baseline)] Oxygen Delivery Method [2] Oxygen Flow Rate (L/min) Oxygen Flow Rate (L/min) [2] EtCo2 (Normal 35-45 , high quality CPR 10-20 & ROSC>/=40mmHg EtCo2 (Normal 35-45 , high quality CPR 10-20 & ROSC>/=40mmHg [1 (Initial Baseline)] EtCo2 (Normal 35-45 , high quality CPR 10-20 & ROSC>/=40mmHg [2] Positive well nourished and well developed General Appearance ED: well developed and NAD HEENT Reports moist mucous membranes normocephalic and atraumatic Eyes General Eye ED: Yes normal appearance of both eyes Neck full ROM Chest Wall Chest: Negative for tenderness Resp normal respiratory effort and normal air movement Effort and Inspection: symmetric chest movement; Negative for respiratory distress Cardio no murmurs Rate: tachycardic Rhythm: abnormal rhythm Peripheral Pulses: pulses 2+ throughout GI normal to inspection, nondistended, normoactive bowel sounds and non-tender Palpation: Negative for guarding or rebound tenderness present Extremity normal to inspection General Extremety ED: Negative for edema or tenderness General Extremity: Negative for edema Neuro oriented x3, CN's II-XII intact bilaterally and no sensory deficits noted Neuro Narrative: No focal deficits. Sensorium / Orientation: awake and alert Skin no rashes or lesions noted and no wounds MDM MDM MDM Narrative Medical decision making narrative: Interventions / MDM: Differential diagnosis: Recurrent atrial fibrillation, chronic anticoagulation, direct-current cardioversion, conscious sedation Diagnosis considered but do not suspect: Pneumonia however x-ray negative. My EKG interpretation: Atrial fibrillation rate of 128, no ST changes. EKG #2 at 1558: Sinus rhythm rate of 69, no ST changes. Imaging independently reviewed and interpreted by myself: 1 view chest x-ray: No acute process. External documents reviewed: N/A Test considered but not ordered:N/A ED course: Patient had A-fib with RVR heart rate 130s to 140s on the monitor blood pressure stable. Labs ordered per protocol from nursing. Chest x-ray ordered. She is on chronic anticoagulation last 40 was not near as I discussed the ER dose this morning. She sat down here from cardiology for potential cardioversion. I will speak with cardiology service to confirm. 1523: I spoke with her set and exhibit designer Dr. Thapa, gave okay to cardiovert in the ED. Her labs returned with normal electrolytes. Consent will be obtained from patient. 1 view chest x-ray by myself shows no acute process. 1552: Written consent obtained risk and benefits. Patient placed on a threat monitoring analyst, oxygenation, pulse ox, capnography, IV fluids KVO started. Timeout performed. Initial propofol of 40 mg was given with good sedation, first attempt with synchronize 125 J cardioversion with pads EP placed. There was no conversion. I added additional 20 mg of propofol, monitored good sedation obtained. Synchronized cardioversion at 150 J noted sinus rhythm rate in the 50s and 60s on the monitor. Patient tolerated well. Total sedation time 60 minutes. Post cardioversion EKG ordered. 1655: Reevaluated stable blood pressure stable. Should continue her home medications. Follow-up with cardiology. Return precautions. Re-evaluation: stable Disposition discussed with patient/family/significant other: Patient and spouse Case discussed with consulting clinician: N/A This note was generated with [employer] dictation software. It may contain incorrect words, spelling, and punctuation that were not noted in checking the note before signing. Lab Data Attestation: I reviewed the patient's lab results. Labs: Laboratory Results - last 24 hr 09/16/24 14:45 WBC 9.3 RBC 5.07 Hgb 15.3 H Hct 46.3 MCV 91.3 MCH 30.2 MCHC 33.0 RDW Std Deviation 42.9 RDW Coeff of Priscilla 12.9 Plt Count 297 MPV 9.5 Immature Gran % (Auto) 0.400 Neut % (Auto) 77.6 H Lymph % (Auto) 12.8 L Mckenzie % (Auto) 7.0 Eos % (Auto) 1.6 Baso % (Auto) 0.6 Absolute Neuts (auto) 7.2 Absolute Lymphs (auto) 1.19 Nucleated RBC % 0 PT 18.8 H INR 1.5 Sodium 142 Potassium 4.1 Chloride 104 Carbon Dioxide 26.3 Anion Gap 12 BUN 13 Creatinine 0.86 Estim Creat Clear Calc 56.04 Est GFR (MDRD) Non-Af 72 BUN/Creatinine Ratio 15.5 Glucose 106 H Calcium 10.5 Troponin T High Sens 13 Radiography Diagnostic Testing: Clinical Impression(s) from Imaging Studies Chest X-Ray 09/16/24 15:10 IMPRESSION: No measurable change. Reading Location: [facility] Discharge Plan Triage Chief Complaint: Palpitations ED Provider: Audie Loaiza Dx/Rx/DC Orders Clinical Impression: Atrial fibrillation, currently in sinus rhythm, Encounter for cardioversion procedure, History of conscious sedation, Chronic anticoagulation Instructions: Cardioversion Dc, ED AFIB, ED Procedural Sedation, (Adult) Prescriptions: No Action Pepto-Bismol 262 mg tablet 2 tablet PO Q30-60M PRN (Reason: Diarrhea) Rx Instructions: do not exceed 16 tabs per 24 hrs acetaminophen 500 mg tablet 1,000 mg PO Q8 PRN Rx Instructions: Do not take more than 3000 mg Tylenol in a 24-hour period. biotin 1,000 mcg tablet,chewable 1,000 mcg PO DAILY losartan 100 mg tablet 100 mg PO DAILY Qty: 90 3RF zolpidem 5 mg tablet 5 mg PO QHS fluticasone propionate 9.9 ML spray,suspension 15.8 ml NS DAILY PRN (Reason: ALLERGIES) cholecalciferol (vitamin D3) [Vitamin D3] 25 mcg (1,000 unit) Tablet 50 mcg PO DAILY sertraline 25 mg tablet 25 mg PO DAILY Patient Comments: take 1 tablet by mouth once daily rivaroxaban 20 mg tablet 20 mg PO DAILY Qty: 90 3RF Patient Comments: LAST DOSE 01/28/21 furosemide 40 mg tablet 40 mg PO DAILY PRN (Reason: edema) Qty: 30 11RF sotalol 80 mg tablet 80 mg PO BID Qty: 180 3RF Primary Care Provider: Skye Caruso Referrals: Sterling Thapa MD [Med Staff - Active Staff] - 1-2 Weeks Skye Caruso MD [Primary Care Provider] - Activity Restrictions/Additional Instructions: You cardioverted with synchronized 150 J. EKG back in sinus rhythm rate in the 50s. Continue home medications. Follow-up with Dr. Thapa. Print Language: Irish Disposition Disposition: Home, Self Care Discharge Date/Time: 09/16/24 17:17
[2024-09-16 15:34] LABS: International Normalized Ratio 1.5; Prothrombin Time (Protime)PT. 18.8 SECONDS (11.7-14.9)
--- NOTE | 2024-09-16 15:56 | EKG12_ITS ---
Test Reason : REPEAT Blood Pressure : */* mmHG Vent. Rate : 69 BPM Atrial Rate : 69 BPM P-R Int : 150 ms QRS Dur : 84 ms QT Int : 396 ms P-R-T Axes : 65 50 42 degrees QTcB Int : 424 ms Sinus rhythm with marked sinus arrhythmia Nonspecific ST abnormality Abnormal ECG Confirmed by MEDARDO GILLESPIE MD ([id number]), editor magazine KAEL MENDEZ ([id number]) on 09/17/2024 8:17:24 AM Referred By: Confirmed By: MEDARDO GILLESPIE MD
[2024-09-16] MEDS: Propofol 200 MG/20 ML Vial IV BOLUS (17:11)
== END 2024-09-16 17:17 | disposition home or self-care (01) ==
PROVIDERS: Emergency Provider Emergency Medicine; PCP Internal Medicine; Visit Provider Emergency Medicine
DX: I48.19 Other persistent atrial fibrillation (principal); I48.0 Paroxysmal atrial fibrillation; Z87.891 Personal history of nicotine dependence; I10 Essential (primary) hypertension; Z79.01 Long term (current) use of anticoagulants; R06.00 Dyspnea, unspecified
CPT/HCPCS: 71045; 80048; 84484; 85025; 85610; 92960; 93005; 99284; A4216

== ENCOUNTER 2025-01-13 10:24 | Day surgery (SDC) | payer MEDICARE, BC, SELFPAY ==
[2025-01-10 12:00] VITALS: BMI 26.4
[2025-01-13 11:09] LABS: Anion Gap 11 (5-15); BUN 29 mg/dL (4-19); BUN/Creat Ratio 26.9 RATIO (10-20); Calcium,Total 9.5 mg/dL (7.6-11.0); Carbon Dioxide 23.5 mmol/L (21.0-32.0); Chloride 104 mmol/L (98-108); Estimated Creatinine Clearance 44.75 ml/min (50-250); Glucose 120 mg/dL (70-99); Potassium 5.1 mmol/L (3.3-5.1)
--- NOTE | 2025-01-13 12:12 | PCM.OP.PRO2 ---
Problems Associated Problem List Diagnoses (1) Paroxysmal atrial flutter: Non-invasive Procedural Procedure Information Date of Procedure: 01/13/25 Pre-Procedure Diagnosis: Atrial flutter Post-Procedure Diagnosis: Same Procedure Performed:: DC cardioversion travel accommodation inspector: No Procedure Time Out: 12:01 Procedure Start Time: 12:04 Procedure Stop Time: 12:10 Special Medications: 40 mg of intravenous propofol Description of procedure: Patient was brought to cardiac catheterization lab in the postabsorptive nonsedated state. Informed consent was obtained. Patient was seen by Dr. Zuñiga of the critical care division. Anterior posterior pads were applied. The patient was administered 40 mg of intravenous propofol. 200 J of synchronized DC biphasic cardioversion energy were applied with prompt reversal to sinus rhythm. Patient was noted to have a period of bradycardia. She however maintained sinus rhythm. Procedure findings: Successful DC cardioversion from atrial flutter to sinus rhythm. Plan is to increase sotalol from 80 mg to 120 mg and obtain an EKG within 48 hours. Appointment made for the office.
--- NOTE | 2025-01-13 13:12 | PCM.OP.PRO2 ---
Procedures Pulmonary Pulmonary Procedures /Diagnostic Testin Con Sedation Non-invasive Procedural Procedure Information Date of Procedure: 01/13/25 Description of procedure: CONSCIOUS SEDATION REPORT DATE OF SERVICE: January 13, 2025 BRIEF HISTORY OF PRESENT ILLNESS: The patient is a 74-year-old female who presented to [facility] to undergo an elective outpatient cardioversion due to underlying atrial fibrillation. The patient did report that she had undergone prior cardioversions, but denied any prior anesthetic complications. The patient denied a history of obstructive sleep apnea. The patient is systemically anticoagulated on Xarelto with an ejection fraction last noted to be approximately 55%. PHYSICAL EXAMINATION: VITAL SIGNS: Reviewed and were acceptable. GENERAL: The patient is a female, in no apparent distress, speaking in full sentences. HEENT: Normocephalic, atraumatic. Mucous membranes are moist and pink. Good mouth opening noted. Trachea is midline. CHEST: S1, S2 irregularly irregular. No murmurs, rubs or gallops were noted. LUNGS: Clear to auscultation bilaterally without appreciable wheezes, rales or rhonchi. ABDOMEN: Soft, nontender, nondistended. Positive bowel sounds. EXTREMITIES: There is no clubbing, cyanosis or edema. ASA Class: II DESCRIPTION OF PROCEDURE: After confirmation of informed consent, the patient's anesthesia plan was reviewed in detail. Propofol was chosen. Risks and benefits were reviewed and the patient agreed to proceed. At 1203, the patient was given 40 mg of propofol. The patient achieved an appropriate level of sedation and was given a 200 joule synchronized cardioversion by Dr. Thapa at the bedside. This was successful in achieving normal sinus rhythm. The patient was monitored until 1219, at which time she reached her baseline mental status and function. The patient tolerated the procedure well. COMPLICATIONS: None ESTIMATED BLOOD LOSS: None RECOMMENDATIONS: Okay to recover in usual fashion.
== END 2025-01-13 13:15 | disposition home or self-care (01) ==
PROVIDERS: PCP Internal Medicine; Referring Provider Internal Medicine Cardiovascular Disease; Visit Provider Internal Medicine Cardiovascular Disease
DX: I48.92 Unspecified atrial flutter (principal); I48.0 Paroxysmal atrial fibrillation; I10 Essential (primary) hypertension; Z90.5 Acquired absence of kidney; Z96.652 Presence of left artificial knee joint; Z79.899 Other long term (current) drug therapy; Z87.891 Personal history of nicotine dependence
CPT/HCPCS: 36415; 80048; 92960; 93005

== ENCOUNTER 2025-02-07 14:13 | Inpatient (IN) | payer MEDICARE, BC, SELFPAY ==
[2025-02-07] VITALS (21 sets, daily range): BP systolic 95–140; BP diastolic 66–110; PULSE 93–140; RESP 10–21; TEMP 36.5–36.6; O2SAT 93–99; BMI 27.5; BMI 27.0
--- NOTE | 2025-02-07 14:38 | EKG12_ITS ---
Test Reason : post dccv Blood Pressure : */* mmHG Vent. Rate : 44 BPM Atrial Rate : 44 BPM P-R Int : 160 ms QRS Dur : 76 ms QT Int : 500 ms P-R-T Axes : 42 68 89 degrees QTcB Int : 427 ms Marked sinus bradycardia with marked sinus arrhythmia Nonspecific ST abnormality Abnormal ECG When compared with ECG of 07-Feb-2025 14:20, MANUAL COMPARISON REQUIRED DATA IS UNCONFIRMED Confirmed by JOSE MIGUEL KNIGHT, MEDARDO ([id number]), makeup editor KAEL MENDEZ ([id number]) on 02/11/2025 7:55:05 AM Referred By: Confirmed By: MEDARDO GILLESPIE MD
--- NOTE | 2025-02-07 14:38 | EKG12_ITS ---
Test Reason : post dccv Blood Pressure : */* mmHG Vent. Rate : 44 BPM Atrial Rate : 44 BPM P-R Int : 160 ms QRS Dur : 76 ms QT Int : 500 ms P-R-T Axes : 42 68 89 degrees QTcB Int : 427 ms Marked sinus bradycardia with marked sinus arrhythmia Nonspecific ST abnormality Abnormal ECG When compared with ECG of 07-Feb-2025 14:20, MANUAL COMPARISON REQUIRED DATA IS UNCONFIRMED Confirmed by JOSE MIGUEL KNIGHT, MEDARDO ([id number]), editor managing director KAEL MENDEZ ([id number]) on 02/11/2025 7:55:05 AM Referred By: Confirmed By: MEDARDO GILLESPIE MD
[2025-02-07 14:47] LABS: Hematocrit 39.4 % (37-47); Hemoglobin 13.1 g/dL (12.0-15.0); Immature Granulocytes Count 0.020 X10^3/uL (0.0-0.0); Mean Corp Hgb Conc 33.2 g/dL (32-36); Mean Corpuscular Volume 92.5 fL (81-99); Mean Platelet Vol. 10.8 fl (6.2-12.0); NRBC Flagged by Analyzer 0 % (0-5); Platelet Count 224 K/mm3 (150-450); RBC Distribution Width CV 14.0 % (11.6-14.6); RBC Distribution Width SD 46.4 fl (35.1-43.9); Red Blood Count 4.26 M/mm3 (4.2-5.4); White Blood Count 7.4 K/mm3 (4.4-11.0)
--- NOTE | 2025-02-07 14:50 | RAD_ITS ---
PROCEDURE: CHEST 1 VIEW (PORTABLE) 02/07/2025 REASON FOR EXAM: CHEST PAIN TECHNIQUE: Frontal view of the chest. COMPARISON: Prior study dated September 16, 2024. FINDINGS: Hardware: EKG electrodes are seen. Heart: Heart size upper limits of normal. Lungs: The lungs are clear. Bones: Degenerative changes are identified within the thoracic spine. Other: RAD/Chest 1 View (Portable) IMPRESSION: No Acute Findings. Reading Location: [id number]
--- NOTE | 2025-02-07 14:50 | RAD_ITS ---
PROCEDURE: CHEST 1 VIEW (PORTABLE) 02/07/2025 REASON FOR EXAM: CHEST PAIN TECHNIQUE: Frontal view of the chest. COMPARISON: Prior study dated September 16, 2024. FINDINGS: Hardware: EKG electrodes are seen. Heart: Heart size upper limits of normal. Lungs: The lungs are clear. Bones: Degenerative changes are identified within the thoracic spine. Other: RAD/Chest 1 View (Portable) IMPRESSION: No Acute Findings. Reading Location: [id number]
--- NOTE | 2025-02-07 14:52 | EX.ED.DYSGE1 ---
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 She had cardioversion in August 2024 that lasted 4 months then another cardioversion in December 2024 then only lasted 5 days. Cardiology has been adjusting her medications to try and treat it until she can see [facility] in March for an ablation. 1 week ago they stopped losartan, started metoprolol 50 mg once in the a.m., and she still on Xarelto and sotalol 80 mg twice a day and is compliant with all of these. She feels palpitations but denies chest pain. She has exertional dyspnea and over the last week has had bilateral ankle edema. She takes Lasix as needed and took it over last 3 days. [facility] <CHANCE English - Last Filed: 02/07/25 16:49> [facility] Medical History (Updated 02/07/25 @ 16:44 by CHANCE English) Dyspnea Wears glasses Post-menopausal Arthritis History of diverticulitis Former smoker History of pain when walking History of edema Normal stress echocardiogram Hx of thyroid cyst Persistent atrial fibrillation (11/02/20) Paroxysmal atrial flutter (10/2017) Paroxysmal atrial fibrillation (10/2017) Essential (primary) hypertension Single kidney Insomnia Anxiety Atrial fibrillation with RVR Home Medications ?Medication ?Instructions ?Recorded ?Last Taken ?Type fluticasone propionate 50 15.8 ml NS DAILY PRN ALLERGIES 10/19/17 02/02/21 History mcg/actuation nasal spray,suspension bismuth subsalicylate 262 mg 2 tablet PO Q30-60M PRN Diarrhea 10/08/20 02/02/21 History tablet (Pepto-Bismol) cholecalciferol (vitamin D3) 25 50 mcg PO DAILY Supplement 01/20/21 02/05/21 17:00 History mcg (1,000 unit) tablet (Vitamin D3) sertraline 25 mg tablet 25 mg PO DAILY 08/09/22 01/13/25 History acetaminophen 500 mg tablet 1,000 mg PO Q8 PRN pain 09/26/23 Unknown History zolpidem 5 mg tablet 5 mg PO QHS Sleep 09/26/23 Unknown History furosemide 40 mg tablet 40 mg PO DAILY PRN edema #30 tabs 12/04/23 Unknown Rx rivaroxaban 20 mg tablet 20 mg PO DAILY #90 tabs 10/04/24 01/13/25 Rx metoprolol succinate 50 mg 50 mg PO QDAY #90 tabs 01/31/25 Unknown Rx tablet,extended release 24 hr sotalol 80 mg tablet 80 mg PO BID #180 tabs 01/31/25 Unknown Rx Allergy/AdvReac Type Severity Reaction Status Date / Time flecainide Allergy Left Verified 01/10/25 09:27 Bundle Branch Block/BUE tingling/leg weakness aspirin (ASA) AdvReac ONLY HAS Verified 01/10/25 09:27 ONE KIDNEY, TOLD TO AVOID cortisone AdvReac CHEST HOT Verified 01/10/25 09:27 & WEIRD NSAIDS (Non-Steroidal AdvReac ONLY HAS Verified 01/10/25 09:27 Anti-Inflamma ONE KIDNEY, TOLD TO AVOID Family History Mother Hypertension Father Hypertension Prostate cancer Leukemia Sister vein problem DVT (deep venous thrombosis) Hypertension Surgical History History of left knee replacement Hx of cystoscopy History of cardioversion (11/11/20) History of nephrectomy History of colon surgery Hx of appendectomy Social History Smoking Status: Former smoker alcohol intake: never substance use type: does not use caffeine: Yes Type: coffee Number of servings: 4 what type of physical activity do you participate in: walking frequency: daily ROS <CHANCE English - Last Filed: 02/07/25 16:49> ROS ED ROS Narrative Constitutional: Negative for fever, chills, malaise. CVS: Positive for palpitations. No chest pain or syncope. Respiratory: Positive for exertional shortness of breath. GI: Negative for abdominal pain, nausea, vomiting. EXAM <CHANCE English - Last Filed: 02/07/25 16:49> Physical Exam Narrative Exam Narrative: CONST: Patient sitting in no acute distress. EYES: Normal inspection. NECK: Normal inspection. RESP: No respiratory distress, CTAB. CVS: Tachycardic irregularly irregular, no murmur, no gallop. ABD: Soft and nontender, no guarding or rebound, nondistended. SKIN: Color normal, no rash, warm, dry, intact. EXTREMITIES: Normal appearance, no pedal edema. NEURO: Alert and answering questions appropriately. PSYCH: Normal affect. Const Vital Signs: 02/07/25 14:13 02/07/25 14:14 02/07/25 14:17 Temperature 97.7 F L Temperature Source Oral Pulse Rate 133 H 140 H Respiratory Rate 15 Respiratory Effort Short of Breath Blood Pressure 140/103 H Blood Pressure Mean 115 Pulse Ox 99 Oxygen Delivery Method Room Air 02/07/25 14:38 02/07/25 15:13 02/07/25 16:00 Temperature Temperature Source Pulse Rate 138 H 93 Respiratory Rate 13 15 Respiratory Effort Blood Pressure 128/110 H 114/81 H Blood Pressure Mean 116 92 Pulse Ox 95 95 95 Oxygen Delivery Method Room Air Room Air Room Air 02/07/25 16:54 02/07/25 17:00 Temperature Temperature Source Pulse Rate 114 H 107 H Respiratory Rate 11 L 21 H Respiratory Effort Blood Pressure 95/68 95/68 Blood Pressure Mean 77 77 Pulse Ox 94 96 Oxygen Delivery Method Room Air <Dr. David Hartman MD - Last Filed: 02/07/25 17:02> Physical Exam Const Vital Signs: 02/07/25 14:13 02/07/25 14:14 02/07/25 14:17 Temperature 97.7 F L Temperature Source Oral Pulse Rate 133 H 140 H Respiratory Rate 15 Respiratory Effort Short of Breath Blood Pressure 140/103 H Blood Pressure Mean 115 Pulse Ox 99 Oxygen Delivery Method Room Air 02/07/25 14:38 02/07/25 15:13 02/07/25 16:00 Temperature Temperature Source Pulse Rate 138 H 93 Respiratory Rate 13 15 Respiratory Effort Blood Pressure 128/110 H 114/81 H Blood Pressure Mean 116 92 Pulse Ox 95 95 95 Oxygen Delivery Method Room Air Room Air Room Air 02/07/25 16:54 02/07/25 17:00 Temperature Temperature Source Pulse Rate 114 H 107 H Respiratory Rate 11 L 21 H Respiratory Effort Blood Pressure 95/68 95/68 Blood Pressure Mean 77 77 Pulse Ox 94 96 Oxygen Delivery Method Room Air [facility] <CHANCE English - Last Filed: 02/07/25 16:49> [facility] Narrative Medical decision making narrative: History gathered from: Patient and spouse Differential: A-fib, a flutter, electrolyte derangement 74-year-old female with history of A-fib/flutter currently managed on multiple medications including Xarelto, sotalol, and metoprolol was sent down from the cardiology office for atrial flutter with RVR. She has had 4 prior cardioversions, the last one and Shilpa only lasted a couple days. She is awake alert no distress. She is in atrial flutter about 130-140, BP 140/100, and otherwise stable vital signs. Lungs are clear to auscultation bilaterally. There is trace bilateral ankle edema. Overall labs look good including CBC, BMP, TSH and magnesium all unremarkable. Troponin is 12. CXR shows no acute process. She was given IV Cardizem 20 mg boluses x 2 and she still persistently in atrial flutter around 120 bpm so was ordered Cardizem drip. I will discuss the case with the hospitalist for admission. I have personally performed a face to face assessment of the patient and have reviewed the KANIAK Note. I performed a substantive portion of the visit including all aspects of the following. My deleon findings include: History is [74-year-old female known history of A-fib/flutter. Currently on the blood thinner Xarelto. Presents today with a flutter with rapid rate. Has had 4 prior cardioversions the last one only lasted several days. She is set up to have a cardioversion done at [facility] But that is not till at least March.] Exam is [72-year-old female sitting upright in bed she is in atrial flutter rate about 130 she is tolerating it well. at bedside. H EENT exam pupils are round react light. Moist mucous members. Neck nontender. Lungs clear to auscultation bilaterally. Heart A-fib flutter rate about 130. Chest wall nontender. Abdomen soft nontender. Moving all 4 extremities. Nontender no edema. Normal bell neck hammerer strength. Normal dorsi plantarflexion. Neurologically she is awake alert. Answering questions following commands.] Medical Decision Making [74-year-old known A-fib flutter and atrial flutter rate 130 will given IV Cardizem have a cardiac workup.] Other additions or changes: [None] Lab Data Attestation: I reviewed the patient's lab results. Labs: Laboratory Results - last 24 hr 02/07/25 02/07/25 14:13 16:15 WBC 7.4 RBC 4.26 Hgb 13.1 Hct 39.4 MCV 92.5 MCH 30.8 MCHC 33.2 RDW Std Deviation 46.4 H RDW Coeff of Priscilla 14.0 Plt Count 224 MPV 10.8 Immature Gran % (Auto) 0.300 Neut % (Auto) 73.7 H Lymph % (Auto) 15.7 L [place] % (Auto) 8.3 Eos % (Auto) 1.5 Baso % (Auto) 0.5 Absolute Neuts (auto) 5.4 Absolute Lymphs (auto) 1.16 Nucleated RBC % 0 Sodium 137 Potassium 3.9 Chloride 101 Carbon Dioxide 23.2 Anion Gap 13 BUN 28 H Creatinine 1.03 Estim Creat Clear Calc 48.28 L Est GFR (MDRD) Non-Af 58 L BUN/Creatinine Ratio 27.6 H Glucose 147 H Calcium 9.6 Magnesium 2.2 Troponin T High Sens 12 D Troponin T Hi Sens 2 Hr 8 TSH 2.870 Radiography Diagnostic Testing: Clinical Impression(s) from Imaging Studies Chest X-Ray 02/07/25 14:50 IMPRESSION: No Acute Findings. Reading Location: [facility] ED attending interpretation two-view chest x-ray shows normal heart size, no acute infiltrate or effusion, EKG Initial EKG: Attestation: I personally reviewed and interpreted this EKG as follows: Interpretation: Atrial Flutter Comments: Atrial flutter with RVR at 125 bpm <Dr. David Hartman MD - Last Filed: 02/07/25 17:02> [facility] Narrative Medical decision making narrative: I have personally performed a face to face assessment of the patient and have reviewed the KANIKA Note. I performed a substantive portion of the visit including all aspects of the following. My deleon findings include: History is [74-year-old female known history of A-fib/flutter. Currently on the blood thinner Xarelto. Presents today with a flutter with rapid rate. Has had 4 prior cardioversions the last one only lasted several days. She is set up to have a cardioversion done at [facility] But that is not till at least March.] Exam is [72-year-old female sitting upright in bed she is in atrial flutter rate about 130 she is tolerating it well. at bedside. H EENT exam pupils are round react light. Moist mucous members. Neck nontender. Lungs clear to auscultation bilaterally. Heart A-fib flutter rate about 130. Chest wall nontender. Abdomen soft nontender. Moving all 4 extremities. Nontender no edema. Normal bell neck hammerer strength. Normal dorsi plantarflexion. Neurologically she is awake alert. Answering questions following commands.] Medical Decision Making [74-year-old known A-fib flutter and atrial flutter rate 130 will given IV Cardizem have a cardiac workup.] Other additions or changes: [None] History & Record Review Discussion w/independent historian: Patient and Family Additional record(s) reviewed:: Prior inpatient record, Prior outpatient record, Prior ED visit and Prior labs Lab Data Lab results narrative: CBC shows a white count of 7. H&H 13-39. Platelets 224. Labs: Laboratory Results - last 24 hr 02/07/25 02/07/25 14:13 16:15 WBC 7.4 RBC 4.26 Hgb 13.1 Hct 39.4 MCV 92.5 MCH 30.8 MCHC 33.2 RDW Std Deviation 46.4 H RDW Coeff of Priscilla 14.0 Plt Count 224 MPV 10.8 Immature Gran % (Auto) 0.300 Neut % (Auto) 73.7 H Lymph % (Auto) 15.7 L [place] % (Auto) 8.3 Eos % (Auto) 1.5 Baso % (Auto) 0.5 Absolute Neuts (auto) 5.4 Absolute Lymphs (auto) 1.16 Nucleated RBC % 0 Sodium 137 Potassium 3.9 Chloride 101 Carbon Dioxide 23.2 Anion Gap 13 BUN 28 H Creatinine 1.03 Estim Creat Clear Calc 48.28 L Est GFR (MDRD) Non-Af 58 L BUN/Creatinine Ratio 27.6 H Glucose 147 H Calcium 9.6 Magnesium 2.2 Troponin T High Sens 12 D Troponin T Hi Sens 2 Hr 8 TSH 2.870 Radiography Diagnostic Testing: Clinical Impression(s) from Imaging Studies Chest X-Ray 02/07/25 14:50 IMPRESSION: No Acute Findings. Reading Location: [id number] <Dr. David Hartman MD - Last Filed: 02/07/25 17:02> Critical Care Time Critical Care Time: Yes Critical care time (excluding procedures): 30-74 minutes, Including time spent:, Discussing w/Patient &/or Family/Propeller Mechanic, Discussing w/Consultants, Arranging Admission or Transfer, Performing Direct Patient Care at Bedside and - (35 minutes.) Discharge Plan Triage Chief Complaint: Chest Other ED Midlevel Provider: Denisha Chapa ED Provider: David Hartman Dx/Rx/DC Orders Clinical Impression: Atrial flutter with rapid ventricular response Prescriptions: No Action Pepto-Bismol 262 mg tablet 2 tablet PO Q30-60M PRN (Reason: Diarrhea) Rx Instructions: do not exceed 16 tabs per 24 hrs acetaminophen 500 mg tablet 1,000 mg PO Q8 PRN (Reason: pain) Rx Instructions: Do not take more than 3000 mg Tylenol in a 24-hour period. rivaroxaban 20 mg tablet 20 mg PO DAILY Qty: 90 3RF Patient Comments: LAST DOSE 01/28/21 metoprolol succinate 50 mg tablet extended release 24 hr 50 mg PO QDAY Qty: 90 3RF sotalol 80 mg tablet 80 mg PO BID Qty: 180 3RF zolpidem 5 mg tablet 5 mg PO QHS fluticasone propionate 9.9 ML spray,suspension 15.8 ml NS DAILY PRN (Reason: ALLERGIES) cholecalciferol (vitamin D3) [Vitamin D3] 25 mcg (1,000 unit) Tablet 50 mcg PO DAILY sertraline 25 mg tablet 25 mg PO DAILY Patient Comments: take 1 tablet by mouth once daily furosemide 40 mg tablet 40 mg PO DAILY PRN (Reason: edema) Qty: 30 11RF Primary Care Provider: Skye Caruso Referrals: Skye Caruso MD [Primary Care Provider] - Print Language: Hungarian Disposition Disposition: Acute Care [facility]
--- NOTE | 2025-02-07 14:52 | EX.ED.DYSGE1 ---
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 She had cardioversion in August 2024 that lasted 4 months then another cardioversion in December 2024 then only lasted 5 days. Cardiology has been adjusting her medications to try and treat it until she can see [facility] in March for an ablation. 1 week ago they stopped losartan, started metoprolol 50 mg once in the a.m., and she still on Xarelto and sotalol 80 mg twice a day and is compliant with all of these. She feels palpitations but denies chest pain. She has exertional dyspnea and over the last week has had bilateral ankle edema. She takes Lasix as needed and took it over last 3 days. [facility] <CHANCE English - Last Filed: 02/07/25 16:49> [facility] Medical History (Updated 02/07/25 @ 16:44 by CHANCE English) Dyspnea Wears glasses Post-menopausal Arthritis History of diverticulitis Former smoker History of pain when walking History of edema Normal stress echocardiogram Hx of thyroid cyst Persistent atrial fibrillation (11/02/20) Paroxysmal atrial flutter (10/2017) Paroxysmal atrial fibrillation (10/2017) Essential (primary) hypertension Single kidney Insomnia Anxiety Atrial fibrillation with RVR Home Medications ?Medication ?Instructions ?Recorded ?Last Taken ?Type fluticasone propionate 50 15.8 ml NS DAILY PRN ALLERGIES 10/19/17 02/02/21 History mcg/actuation nasal spray,suspension bismuth subsalicylate 262 mg 2 tablet PO Q30-60M PRN Diarrhea 10/08/20 02/02/21 History tablet (Pepto-Bismol) cholecalciferol (vitamin D3) 25 50 mcg PO DAILY Supplement 01/20/21 02/05/21 17:00 History mcg (1,000 unit) tablet (Vitamin D3) sertraline 25 mg tablet 25 mg PO DAILY 08/09/22 01/13/25 History acetaminophen 500 mg tablet 1,000 mg PO Q8 PRN pain 09/26/23 Unknown History zolpidem 5 mg tablet 5 mg PO QHS Sleep 09/26/23 Unknown History furosemide 40 mg tablet 40 mg PO DAILY PRN edema #30 tabs 12/04/23 Unknown Rx rivaroxaban 20 mg tablet 20 mg PO DAILY #90 tabs 10/04/24 01/13/25 Rx metoprolol succinate 50 mg 50 mg PO QDAY #90 tabs 01/31/25 Unknown Rx tablet,extended release 24 hr sotalol 80 mg tablet 80 mg PO BID #180 tabs 01/31/25 Unknown Rx Allergy/AdvReac Type Severity Reaction Status Date / Time flecainide Allergy Left Verified 01/10/25 09:27 Bundle Branch Block/BUE tingling/leg weakness aspirin (ASA) AdvReac ONLY HAS Verified 01/10/25 09:27 ONE KIDNEY, TOLD TO AVOID cortisone AdvReac CHEST HOT Verified 01/10/25 09:27 & WEIRD NSAIDS (Non-Steroidal AdvReac ONLY HAS Verified 01/10/25 09:27 Anti-Inflamma ONE KIDNEY, TOLD TO AVOID Family History Mother Hypertension Father Hypertension Prostate cancer Leukemia Sister vein problem DVT (deep venous thrombosis) Hypertension Surgical History History of left knee replacement Hx of cystoscopy History of cardioversion (11/11/20) History of nephrectomy History of colon surgery Hx of appendectomy Social History Smoking Status: Former smoker alcohol intake: never substance use type: does not use caffeine: Yes Type: coffee Number of servings: 4 what type of physical activity do you participate in: walking frequency: daily ROS <CHANCE English - Last Filed: 02/07/25 16:49> ROS ED ROS Narrative Constitutional: Negative for fever, chills, malaise. CVS: Positive for palpitations. No chest pain or syncope. Respiratory: Positive for exertional shortness of breath. GI: Negative for abdominal pain, nausea, vomiting. EXAM <CHANCE English - Last Filed: 02/07/25 16:49> Physical Exam Narrative Exam Narrative: CONST: Patient sitting in no acute distress. EYES: Normal inspection. NECK: Normal inspection. RESP: No respiratory distress, CTAB. CVS: Tachycardic irregularly irregular, no murmur, no gallop. ABD: Soft and nontender, no guarding or rebound, nondistended. SKIN: Color normal, no rash, warm, dry, intact. EXTREMITIES: Normal appearance, no pedal edema. NEURO: Alert and answering questions appropriately. PSYCH: Normal affect. Const Vital Signs: 02/07/25 14:13 02/07/25 14:14 02/07/25 14:17 Temperature 97.7 F L Temperature Source Oral Pulse Rate 133 H 140 H Respiratory Rate 15 Respiratory Effort Short of Breath Blood Pressure 140/103 H Blood Pressure Mean 115 Pulse Ox 99 Oxygen Delivery Method Room Air 02/07/25 14:38 02/07/25 15:13 02/07/25 16:00 Temperature Temperature Source Pulse Rate 138 H 93 Respiratory Rate 13 15 Respiratory Effort Blood Pressure 128/110 H 114/81 H Blood Pressure Mean 116 92 Pulse Ox 95 95 95 Oxygen Delivery Method Room Air Room Air Room Air 02/07/25 16:54 02/07/25 17:00 Temperature Temperature Source Pulse Rate 114 H 107 H Respiratory Rate 11 L 21 H Respiratory Effort Blood Pressure 95/68 95/68 Blood Pressure Mean 77 77 Pulse Ox 94 96 Oxygen Delivery Method Room Air <Dr. David Hartman MD - Last Filed: 02/07/25 17:02> Physical Exam Const Vital Signs: 02/07/25 14:13 02/07/25 14:14 02/07/25 14:17 Temperature 97.7 F L Temperature Source Oral Pulse Rate 133 H 140 H Respiratory Rate 15 Respiratory Effort Short of Breath Blood Pressure 140/103 H Blood Pressure Mean 115 Pulse Ox 99 Oxygen Delivery Method Room Air 02/07/25 14:38 02/07/25 15:13 02/07/25 16:00 Temperature Temperature Source Pulse Rate 138 H 93 Respiratory Rate 13 15 Respiratory Effort Blood Pressure 128/110 H 114/81 H Blood Pressure Mean 116 92 Pulse Ox 95 95 95 Oxygen Delivery Method Room Air Room Air Room Air 02/07/25 16:54 02/07/25 17:00 Temperature Temperature Source Pulse Rate 114 H 107 H Respiratory Rate 11 L 21 H Respiratory Effort Blood Pressure 95/68 95/68 Blood Pressure Mean 77 77 Pulse Ox 94 96 Oxygen Delivery Method Room Air [facility] <CHANCE English - Last Filed: 02/07/25 16:49> [facility] Narrative Medical decision making narrative: History gathered from: Patient and spouse Differential: A-fib, a flutter, electrolyte derangement 74-year-old female with history of A-fib/flutter currently managed on multiple medications including Xarelto, sotalol, and metoprolol was sent down from the cardiology office for atrial flutter with RVR. She has had 4 prior cardioversions, the last one and Shilpa only lasted a couple days. She is awake alert no distress. She is in atrial flutter about 130-140, BP 140/100, and otherwise stable vital signs. Lungs are clear to auscultation bilaterally. There is trace bilateral ankle edema. Overall labs look good including CBC, BMP, TSH and magnesium all unremarkable. Troponin is 12. CXR shows no acute process. She was given IV Cardizem 20 mg boluses x 2 and she still persistently in atrial flutter around 120 bpm so was ordered Cardizem drip. I will discuss the case with the hospitalist for admission. I have personally performed a face to face assessment of the patient and have reviewed the KANIKA Note. I performed a substantive portion of the visit including all aspects of the following. My deleon findings include: History is [74-year-old female known history of A-fib/flutter. Currently on the blood thinner Xarelto. Presents today with a flutter with rapid rate. Has had 4 prior cardioversions the last one only lasted several days. She is set up to have a cardioversion done at [facility] But that is not till at least March.] Exam is [72-year-old female sitting upright in bed she is in atrial flutter rate about 130 she is tolerating it well. at bedside. H EENT exam pupils are round react light. Moist mucous members. Neck nontender. Lungs clear to auscultation bilaterally. Heart A-fib flutter rate about 130. Chest wall nontender. Abdomen soft nontender. Moving all 4 extremities. Nontender no edema. Normal interactive web developer strength. Normal dorsi plantarflexion. Neurologically she is awake alert. Answering questions following commands.] Medical Decision Making [74-year-old known A-fib flutter and atrial flutter rate 130 will given IV Cardizem have a cardiac workup.] Other additions or changes: [None] Lab Data Attestation: I reviewed the patient's lab results. Labs: Laboratory Results - last 24 hr 02/07/25 02/07/25 14:13 16:15 WBC 7.4 RBC 4.26 Hgb 13.1 Hct 39.4 MCV 92.5 MCH 30.8 MCHC 33.2 RDW Std Deviation 46.4 H RDW Coeff of Priscilla 14.0 Plt Count 224 MPV 10.8 Immature Gran % (Auto) 0.300 Neut % (Auto) 73.7 H Lymph % (Auto) 15.7 L Ida % (Auto) 8.3 Eos % (Auto) 1.5 Baso % (Auto) 0.5 Absolute Neuts (auto) 5.4 Absolute Lymphs (auto) 1.16 Nucleated RBC % 0 Sodium 137 Potassium 3.9 Chloride 101 Carbon Dioxide 23.2 Anion Gap 13 BUN 28 H Creatinine 1.03 Estim Creat Clear Calc 48.28 L Est GFR (MDRD) Non-Af 58 L BUN/Creatinine Ratio 27.6 H Glucose 147 H Calcium 9.6 Magnesium 2.2 Troponin T High Sens 12 D Troponin T Hi Sens 2 Hr 8 TSH 2.870 Radiography Diagnostic Testing: Clinical Impression(s) from Imaging Studies Chest X-Ray 02/07/25 14:50 IMPRESSION: No Acute Findings. Reading Location: [facility] ED attending interpretation two-view chest x-ray shows normal heart size, no acute infiltrate or effusion, EKG Initial EKG: Attestation: I personally reviewed and interpreted this EKG as follows: Interpretation: Atrial Flutter Comments: Atrial flutter with RVR at 125 bpm <Dr. David Hartman MD - Last Filed: 02/07/25 17:02> [facility] Narrative Medical decision making narrative: I have personally performed a face to face assessment of the patient and have reviewed the KANIKA Note. I performed a substantive portion of the visit including all aspects of the following. My deleon findings include: History is [74-year-old female known history of A-fib/flutter. Currently on the blood thinner Xarelto. Presents today with a flutter with rapid rate. Has had 4 prior cardioversions the last one only lasted several days. She is set up to have a cardioversion done at [facility] But that is not till at least March.] Exam is [72-year-old female sitting upright in bed she is in atrial flutter rate about 130 she is tolerating it well. at bedside. H EENT exam pupils are round react light. Moist mucous members. Neck nontender. Lungs clear to auscultation bilaterally. Heart A-fib flutter rate about 130. Chest wall nontender. Abdomen soft nontender. Moving all 4 extremities. Nontender no edema. Normal interactive web developer strength. Normal dorsi plantarflexion. Neurologically she is awake alert. Answering questions following commands.] Medical Decision Making [74-year-old known A-fib flutter and atrial flutter rate 130 will given IV Cardizem have a cardiac workup.] Other additions or changes: [None] History & Record Review Discussion w/independent historian: Patient and Family Additional record(s) reviewed:: Prior inpatient record, Prior outpatient record, Prior ED visit and Prior labs Lab Data Lab results narrative: CBC shows a white count of 7. H&H 13-39. Platelets 224. Labs: Laboratory Results - last 24 hr 02/07/25 02/07/25 14:13 16:15 WBC 7.4 RBC 4.26 Hgb 13.1 Hct 39.4 MCV 92.5 MCH 30.8 MCHC 33.2 RDW Std Deviation 46.4 H RDW Coeff of Priscilla 14.0 Plt Count 224 MPV 10.8 Immature Gran % (Auto) 0.300 Neut % (Auto) 73.7 H Lymph % (Auto) 15.7 L Ida % (Auto) 8.3 Eos % (Auto) 1.5 Baso % (Auto) 0.5 Absolute Neuts (auto) 5.4 Absolute Lymphs (auto) 1.16 Nucleated RBC % 0 Sodium 137 Potassium 3.9 Chloride 101 Carbon Dioxide 23.2 Anion Gap 13 BUN 28 H Creatinine 1.03 Estim Creat Clear Calc 48.28 L Est GFR (MDRD) Non-Af 58 L BUN/Creatinine Ratio 27.6 H Glucose 147 H Calcium 9.6 Magnesium 2.2 Troponin T High Sens 12 D Troponin T Hi Sens 2 Hr 8 TSH 2.870 Radiography Diagnostic Testing: Clinical Impression(s) from Imaging Studies Chest X-Ray 02/07/25 14:50 IMPRESSION: No Acute Findings. Reading Location: [id number] <Dr. David Hartman MD - Last Filed: 02/07/25 17:02> Critical Care Time Critical Care Time: Yes Critical care time (excluding procedures): 30-74 minutes, Including time spent:, Discussing w/Patient &/or Family/Tax Staff Accountant, Discussing w/Consultants, Arranging Admission or Transfer, Performing Direct Patient Care at Bedside and - (35 minutes.) Discharge Plan Triage Chief Complaint: Chest Other ED Midlevel Provider: Denisha Chapa ED Provider: David Hartman Dx/Rx/DC Orders Clinical Impression: Atrial flutter with rapid ventricular response Prescriptions: No Action Pepto-Bismol 262 mg tablet 2 tablet PO Q30-60M PRN (Reason: Diarrhea) Rx Instructions: do not exceed 16 tabs per 24 hrs acetaminophen 500 mg tablet 1,000 mg PO Q8 PRN (Reason: pain) Rx Instructions: Do not take more than 3000 mg Tylenol in a 24-hour period. rivaroxaban 20 mg tablet 20 mg PO DAILY Qty: 90 3RF Patient Comments: LAST DOSE 01/28/21 metoprolol succinate 50 mg tablet extended release 24 hr 50 mg PO QDAY Qty: 90 3RF sotalol 80 mg tablet 80 mg PO BID Qty: 180 3RF zolpidem 5 mg tablet 5 mg PO QHS fluticasone propionate 9.9 ML spray,suspension 15.8 ml NS DAILY PRN (Reason: ALLERGIES) cholecalciferol (vitamin D3) [Vitamin D3] 25 mcg (1,000 unit) Tablet 50 mcg PO DAILY sertraline 25 mg tablet 25 mg PO DAILY Patient Comments: take 1 tablet by mouth once daily furosemide 40 mg tablet 40 mg PO DAILY PRN (Reason: edema) Qty: 30 11RF Primary Care Provider: Skye Caruso Referrals: Skye Caruso MD [Primary Care Provider] - Print Language: Slovenian Disposition Disposition: Acute Care [facility]
[2025-02-07 15:33] LABS: Anion Gap 13 (5-15); BUN 28 mg/dL (4-19); BUN/Creat Ratio 27.6 RATIO (10-20); Calcium,Total 9.6 mg/dL (7.6-11.0); Carbon Dioxide 23.2 mmol/L (21.0-32.0); Chloride 101 mmol/L (98-108); Estimated Creatinine Clearance 48.28 ml/min (50-250); Glucose 147 mg/dL (70-99); Magnesium 2.2 mg/dL (1.5-2.2); Potassium 3.9 mmol/L (3.3-5.1); Troponin T High Sensitivity 12 ng/L (<=14)
[2025-02-07 16:54] LABS: Troponin T High Sens 2 HR 8 ng/L (<=14)
[2025-02-07] MEDS: Diltiazem 125 MG in Dextrose 5%-Water (100mL Bag) 100 ML IV (16:54)
--- NOTE | 2025-02-07 17:12 | HP.PCM.HOS_ITS ---
HPI - General General Date of Admission: 02/07/25 Date of Service: 02/07/25 Chief Complaint: Dizziness HPI Narrative WINSTON OHARA, is a 74 F who presents with dizziness. She was at her cardiology office today and was noted to have a heart rate of 133. Patient was started to go to the emergency room. In the emergency room, patient has a history of A-fib but was actually noted to be in atrial flutter. Patient received a total of 40 mg IV diltiazem bolus and then was placed on a diltiazem drip. Since initiation of the diltiazem drip it has not been infusing and her heart rate still been in the 120s to 130s. Patient's IV is currently small gauge IV in her lateral left wrist. Patient is experiencing some chest tightness and palpitations. This is consistent with her history of atrial fib with RVR. Patient was not tolerating sotalol 120 twice daily and so that was decreased to 80 twice daily and then was added on metoprolol succinate 50 daily. Patient underwent a cardioversion (her fourth) on January 13 and was in sinus rhythm but she stated that that lasted only for about 5 days before she was back into her A-fib. She states at home that her heart rate is typically in the 90s. [facility] Medical History Dyspnea Wears glasses Post-menopausal Arthritis History of diverticulitis Former smoker History of pain when walking History of edema Normal stress echocardiogram Hx of thyroid cyst Persistent atrial fibrillation (11/02/20) Paroxysmal atrial flutter (10/2017) Paroxysmal atrial fibrillation (10/2017) Essential (primary) hypertension Single kidney Insomnia Anxiety Atrial fibrillation with RVR Home Medications ?Medication ?Instructions ?Recorded ?Last Taken ?Type fluticasone propionate 50 15.8 ml NS DAILY PRN ALLERGI ES 10/19/17 02/02/21 History mcg/actuation nasal spray,suspension bismuth subsalicylate 262 mg 2 tablet PO Q30-60M PRN D iarrhea 10/08/20 02/02/21 History tablet (Pepto-Bismol) cholecalciferol (vitamin D3) 25 50 mcg PO DAILY Supple ment 01/20/21 02/05/21 17:00 History mcg (1,000 unit) tablet (Vitamin D3) sertraline 25 mg tablet 25 mg PO DAILY anxiety 08/0901/13/25 History acetaminophen 500 mg tablet 1,000 mg PO Q8 PRN pain Unknown History zolpidem 5 mg tablet 5 mg PO QHS Sleep 09/26/23 U nknown History furosemide 40 mg tablet 40 mg PO DAILY PRN edema #30 tabs 12/04/23 Unknown Rx rivaroxaban 20 mg tablet 20 mg PO DAILY afib #90 tabs 10/04/24 01/13/25 Rx metoprolol succinate 50 mg 50 mg PO QDAY afib #90 tabs 01/31/25 Unknown Rx tablet,extended release 24 hr sotalol 80 mg tablet 80 mg PO BID #180 tabs 01/31 Unknown Rx Allergy/AdvReac Type Severity Reaction Status Date / Time flecainide Allergy Left Verified 01/10/25 09:27 Bundle Branch Block/BUE tingling/leg weakness aspirin (ASA) AdvReac ONLY HAS Verified 01/10/25 09:27 ONE KIDNEY, TOLD TO AVOID cortisone AdvReac CHEST HOT Verified 01/10/25 09:27 & WEIRD NSAIDS (Non-Steroidal AdvReac ONLY HAS Verified 01/10/25 09:27 Anti-Inflamma ONE KIDNEY, TOLD TO AVOID Family History Mother Hypertension Father Hypertension Prostate cancer Leukemia Sister vein problem DVT (deep venous thrombosis) Hypertension Surgical History History of left knee replacement Hx of cystoscopy History of cardioversion (11/11/20) History of nephrectomy History of colon surgery Hx of appendectomy Social History Smoking Status: Former smoker alcohol intake: never substance use type: does not use caffeine: Yes Type: coffee Number of servings: 4 what type of physical activity do you participate in: walking frequency: daily ROS ROS Narrative All review of systems were negative except as mentioned above in the history of present illness and the other review of systems. Vital Signs Vital Signs Vital Signs: 02/07/25 14:13 02/07/25 14:14 02/07/25 14:17 Temperature 36.5 C L Temperature Source Oral Pulse Rate 133 H 140 H Respiratory Rate 15 Respiratory Effort Short of Breath Blood Pressure 140/103 H Blood Pressure Mean 115 Pulse Ox 99 Oxygen Delivery Method Room Air 02/07/25 14:38 02/07/25 15:13 02/07/25 16:00 Temperature Temperature Source Pulse Rate 138 H 93 Respiratory Rate 13 15 Respiratory Effort Blood Pressure 128/110 H 114/81 H Blood Pressure Mean 116 92 Pulse Ox 95 95 95 Oxygen Delivery Method Room Air Room Air Room Air 02/07/25 16:54 02/07/25 17:00 02/07/25 17:02 Temperature 36.5 C L Temperature Source Pulse Rate 114 H 107 H 107 H Respiratory Rate 11 L 21 H 21 H Respiratory Effort Blood Pressure 95/68 95/68 95/68 Blood Pressure Mean 77 77 77 Pulse Ox 94 96 96 Oxygen Delivery Method Room Air Weight Weight: 72.8 kg Body Mass Index (BMI) 27.5 Physical Exam Narrative - Physical Exam General: Alert, Oriented x3, Cooperative. Sitting up in bed. Nontoxic no respiratory distress. On room air. HEENT: Atraumatic, PERRLA, EOMI, Normocephalic Oral: Moist Mucosa, No Gingival or Mucosal Lesions/ Ulcerations Neck: Supple, No JVD, Negative Carotid Bruits Lungs: Clear to auscultation, Normal air movement Cardiovascular: Irregularly irregular. Abdomen: Bowel Sounds Present, Soft, Non Tender, Non-Distended, No Hepato- splenomegaly Extremities: No clubbing, No cyanosis, No edema, Capillary Refill Less than 3 Seconds Skin: No rashes, No breakdown Musculoskeletal: No Tenderness to Palpation of Joints or Extremities Neurological: Neuro grossly intact Psych/Mental Status: Normal Affect, Appropriate Results Lab / Micro Data Attestation: I reviewed the patient's lab results. 02/07/25 14:13 02/07/25 14:13 Labs: Laboratory Results - last 24 hr 02/07/25 14:13: WBC 7.4, RBC 4.26, Hgb 13.1, Hct 39.4, MCV 92.5, MCH 30.8, MCHC 33.2, RDW Std Deviation 46.4 H, RDW Coeff of Priscilla 14.0, Plt Count 224, MPV 10.8, Immature Gran % (Auto) 0.300, Neut % (Auto) 73.7 H, Lymph % (Auto) 15.7 L, Appling % (Auto) 8.3, Eos % (Auto) 1.5, Baso % (Auto) 0.5, Absolute Neuts (auto) 5.4, Absolute Lymphs (auto) 1.16, Nucleated RBC % 0, Sodium 137, Potassium 3.9, Chloride 101, Carbon Dioxide 23.2, Anion Gap 13, BUN 28 H, Creatinine 1.03, E stim Creat Clear Calc 48.28 L, Est GFR (MDRD) Non-Af 58 L, BUN/Creatinine Ratio 27.6 H, Glucose 147 H, Calcium 9.6, Magnesium 2.2, Troponin T High Sens 12 D, TSH 2.870 02/07/25 16:15: Troponin T Hi Sens 2 Hr 8 EKG Initial EKG: Attestation: I personally reviewed and interpreted this EKG as follows: Prior EKG tracings: available for review (Atrial flutter with RVR) Imaging Radiology Impression Chest X-Ray 02/07/25 14:50 IMPRESSION: No Acute Findings. Reading Location: [id number] Assessment & Plan Assessment/Plan (1) Atrial flutter with rapid ventricular response: PLAN: Breakthrough despite being on sotalol 80 mg twice daily and metoprolol succinate 50 daily. Received total of 40 mg IV of diltiazem and has been placed on diltiazem drip. Currently the diltiazem drip is actually not infusing as it is in a very small gauge IV in her left wrist. Nursing to evaluate. But if it is infusing and patient still having RVR then consideration would be to initiate amiodarone. I have called Dr. Rendon, cardiology but he is not been accessible after 2 attempts. Consult to cardiology will be placed. Continue with rivaroxaban Cannot rule out need for another cardioversion Check echocardiogram. Check troponin series PLAN: Plan Depression: Continue with sertraline VTE prophylaxis: Not indicated as patient is already anticoagulated CODE STATUS: Verified with the patient that she wishes to be full code. Charges/Coding Visit Charges Inpatient E&M: 21012 Init Hosp L3
--- OUTSIDE RECORDS SUMMARY | 2025-02-07 17:18 | XMS RPT_ITS | CCD ---
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 Liliam Alaniz Primary Care Provider Dr. Liliam Alaniz Referring Provider Adrian LEMA, LANIE Lucia Attending Provider Liliam Alaniz MD Primary Care Provider Liliam Alaniz MD Primary Care Provider Liliam Alaniz MD Primary Care Provider Dr. Liliam Alaniz Primary Care Provider Dr. Liliam Alaniz Referring Provider Adrian LEMA, LANIE Lucia Attending Provider Dr. Liliam Alaniz Primary Care Provider Dr. Liliam Alaniz Referring Provider Dr. Sterling Thapa Attending Provider Liliam Alaniz MD Primary Care Provider Stanton RELIEF SALESPERSON.RELIEF SALESPERSON, Katey Unavailable Jeremiah RELIEF SALESPERSON.PRECISION DEVICES INSPECTOR/TESTER, Barbra Unavailable Jeremiah RELIEF SALESPERSON.PRECISION DEVICES INSPECTOR/TESTER, Barbra Suzanne Unavailable Dr. Liliam Alaniz MD Primary Care Provider Dr. Liliam Alaniz MD Referring Provider Jozef Johnson Attending Provider Dr. Audie Nieves DO Emergency Provider Jeremiah RELIEF SALESPERSON.PRECISION DEVICES INSPECTOR/TESTER, Barbra Unavailable [place] RELIEF SALESPERSON.RELIEF SALESPERSON, Katey Unavailable [place] RELIEF SALESPERSON.RELIEF SALESPERSON, Katey Unavailable TALAMPAS, LILIAM D Referring Unavailable TALAMPAS, LILIAM D Attending Unavailable TALAMPAS, LILIAM D Primary Care Unavailable TALAMPAS, LILIAM D Referring Unavailable TALAMPAS, LILIAM D Primary Care Unavailable TALAMPAS, LILIAM D Referring Unavailable TALAMPAS, LILIAM D Primary Care Unavailable TALAMPAS, LILIAM D Primary Care Unavailable TALAMPAS, LILIAM D Attending Unavailable TALAMPAS, LILIAM D Primary Care Unavailable TALAMPAS, LILIAM D Referring Unavailable TALAMPAS, LILIAM D Primary Care Unavailable Dr. Audie Nieves DO Attending Provider Alanis KNIGHT, Dr. Katz Attending Provider [phone] Binta Mcdaniels Attending Provider Alanis KNIGHT, Dr. Katz Referring Provider Alanis KNIGHT, Dr. Katz Other Provider Dr. Gage Zuñiga DO Attending Provider Shady KNIGHT, Dr. Liliam Sevilla Primary Care Provider Shady KNIGHT, Dr. Liliam Sevilla Referring Provider Jozef Johnson Attending Provider Talampas, Liliam D Primary Care Unavailable Stelring Thapa Attending Unavailable Talampas, Liliam D Referring Unavailable Binta Mcdaniels Attending Unavail able Talampas, Liliam D Primary Care Unavailable Talampas, Liliam D Referring Unavailable Talampas, Liliam D Primary Care Unavailable Sterling Thapa Attending Unavailable Talampas, Liliam D Referring Unavailable Talampas, Liliam D Primary Care Unavailable Jozef Carr Attending Unavailable Talampas, Liliam D Referring Unavailable Binta Mcdaniels Attending Unavail able Talampas, Liliam D Primary Care Unavailable Talampas, Liliam D Referring Unavailable RoofJozef H Attending Unavailable Talampas, Liliam D Referring Unavailable Talampas, Liliam D Primary Care Unavailable Binta Mcdaniels Attending Unavail able Talampas, Liliam D Referring Unavailable Talampas, Liliam D Primary Care Unavailable Talampas, Liliam D Primary Care Unavailable Alanis, [place] Consulting Unavailable Yogesh Gage Attending Unavailable Alanis, Sterling Referring Unavailable Talampas, Liliam D Primary Care Unavailable Alanis, Sterling Attending Unavailable Alanis, Sterling Referring Unavailable Talampas, Liliam D Primary Care Unavailable Audie Nieves Attending Unavailable Talampas, Liliam D Primary Care Unavailable Alanis, Sterling Consulting Unavailable Alanis, [place] Attending Unavailable Alanis, Sterling Referring Unavailable Shady KNIGHT, Dr. Liliam Sevilla Primary Care Provider Dr. Liliam Alaniz MD Referring Provider Alanis KNIGHT, Dr. Katz Attending Provider [phone] Allergies Allergy Classification Reported Allergen(s) Allergy Type Date of Onset Reaction(s) Facility (13 sources) Aspirin Drug Allergy 1 ONLY HAS ONE KIDNEY, TOLD TO AVOID [facility] Comment on above: PT ONLY HAS 1 KIDNEY (13 sources) Cortisone Drug Allergy 1 CHEST HOT & WEIRD [facility] (20 sources) Flecainide; Translations: [FLECAINIDE] Drug Allergy 1 Other: See Comments [facility] (14 sources) NSAIDS (Non-Steroidal Anti-Inflamma; Translations: [NSAIDS (Non-Steroidal Anti-Inflamma] Propensity to adverse reactions 1 ONLY HAS ONE KIDNEY, TOLD TO AVOID [facility] Comment on above: PT ONLY HAS 1 KIDNEY (20 sources) metroNIDAZOLE; Translations: [METRONIDAZOLE] Drug Allergy 0 GI Upset [facility] Work Phone: (1 source) Aspirin Drug Allergy 5 [facility] Rep[facility] (1 source) Cortisone Drug Allergy 5 [facility] (1 source) Flecainide Drug Allergy 5 [facility] Rep[facility] Medications Current Medications Medication Drug Class(es) Dates Sig (Normalized) Sig (Original) acetaminophen 500 mg oral tablet (20 sources) Start: 02-04-2021 End: 09-26-2023 Acetaminophen 500 mg tablet Active 1000 mg PO EVERY 8 HOURS as needed for pain September 26, 2023 1:46pm Do not take more than 3000 mg Tylenol in a 24-hour period. Start: 02-04-2021 End: 09-26-2023 take 3000 mg by mouth every eight hours Acetaminophen Active 1000 MG PO EVERY 8 HOURS September 26, 2023 1:46pm Do not take more than 3000 mg Tylenol in a 24-hour period. Start: 06-20-2019 End: 02-04-2021 take 500-1000 mg by mouth twice daily Acetaminophen 500 mg tablet Discontinued 500 - 1000 mg PO TWICE A DAY June 20, 2019 10:46am February 04, 2021 10:51am knee pain Start: 10-19-2017 End: 06-20-2019 take 500-1000 mg by mouth every six hours as needed for pain Acetaminophen 500 MG tablet Discontinued 500 - 1000 mg PO EVERY 6 HOURS NEEDED as needed for knee pain October 19, 2017 12:00am June 20, 2019 10:48am Comment on above: EVERY 6 HOURS NEE DED atenolol 50 mg oral tablet (20 sources) beta-Adrenergic Alejandro Start: 12-15-2020 End: 02-07-2022 take 1 tablet by mouth once daily atenolol (TENORMIN) 50 mg tablet Take 1 tablet by mouth once daily. 90 tablet 3 12/15/2020 02/07/2022 Discontinued Start: 11-17-2020 End: 02-11-2021 Atenolol 100 mg tablet Disco ntinued 50 mg PO DAILY November 17, 2020 10:51am February 11, 2021 10:21am BP Start: 11-17-2020 End: 02-11-2021 take 50 mg by mouth once daily Atenolol Discontinued 5 0 MG PO DAILY November 17, 2020 10:51am February 11, 2021 10:21am Start: 11-11-2020 End: 11-17-2020 take 1 tablet by mouth once daily Atenolol 100 mg tablet Discontinued 100 mg PO DAILY November 11, 2020 1:25pm November 17, 2020 10:51am Start: 10-27-2020 End: 11-11-2020 take 1 tablet by mouth twice daily Atenolol 100 mg tablet Discontinued 100 mg PO TWICE A DAY October 27, 2020 12:52pm November 11, 2020 1:25pm Start: 10-08-2020 End: 10-27-2020 take 1 tablet by mouth once daily Atenolol 100 mg tablet Discontinued 100 mg PO DAILY October 08, 2020 12:00am October 27, 2020 12:52pm Start: 10-06-2020 End: 10-08-2020 take 2 tablets by mouth once daily Atenolol 50 mg tablet Discontinued 100 mg PO DAILY 90 October 06, 2020 1:46pm October 08, 2020 9:47am Start: 10-06-2020 End: 10-08-2020 take 100 mg by mouth once daily Atenolol Discontinued 100 MG PO DAILY October 06, 2020 1:46pm October 08, 2020 9:47am Start: 10-20-2017 End: 10-06-2020 take 1 tablet by mouth once daily Atenolol 50 mg tablet Discontinued 50 mg PO DAILY November 17, 2017 11:22am October 06, 2020 1:47pm Start: 08-02-2014 End: 10-20-2017 Atenolol 25 MG tablet Discon tinued 37.5 mg PO DAILY August 02, 2014 1:00am October 20, 2017 9:13am pain Start: 08-02-2014 End: 10-20-2017 take 37.5 mg by mouth once daily Atenolol Discontinued 37.5 MG PO DAILY August 02, 2014 1:00am October 20, 2017 9:13am Comment on above: Take 1 tablet by kamila once daily. bismuth subsalicylate 262 mg oral tablet (20 sources) Bismuth Start: 10-08-2020 Bismuth Subsalicylate (Pepto-Bismol) 262 mg tablet Active 2 {tbl} PO every 30 to 60 minutes as needed for Diarrhea October 08, 2020 12:00am do not exceed 16 tabs per 24 hrs Start: 10-08-2020 take 2 tablets by mo [facility] every twenty-four hours Bismuth Subsalicylate (Pepto-Bismol) 262 mg tablet Active 2 TABLET PO every 30 to 60 minutes October 08, 2020 12:00am do not exceed 16 tabs per 24 hrs Start: 10-19-2017 End: 10-08-2020 take 1 tablet by mouth once daily as needed for diarrhea Bismuth Subsalicylate 262 MG tablet,chewable Discontinued 262 mg PO DAILY as needed for Diarrhea October 19, 2017 12:00am October 08, 2020 9:48am Start: 07-25-2007 bismuth subsal icylate(PEPTO-BISMOL 262 MG TAB) Indications: Irritable bowel syndrome Takes 2 pills daily as needed for IBS flare up 0 07/25/2007 Active Comment on above: Takes 2 pills daily as needed for IBS flare up cholecalciferol 0.025 mg oral tablet (20 sources) Vitamin D Start: 01-21-20 take 1 tablet by mouth once daily Cholecalciferol (Vitamin D3) (Vitamin D3) 25 mcg (1,000 unit) Tablet Active 50 ug PO DAILY January 20, 2021 12:00am Supplement Start: 01-12-2021 End: 06-14-2024 take 2 capsules by mouth once daily Cholecalciferol, Vitamin D3, 25 mcg (1,000 unit) cap Take 2 capsules by mouth once daily. 01/12/2021 06/14/2024 Discontinued Comment on above: Take 2 capsules by m outh once daily. cholecalciferol, vitamin D3, 62.5 mcg (2,500 unit) chew (8 sources) Start: 06-14-20 take 2 capsules by mouth once daily after dinner cholecalciferol, vitamin D3, 62.5 mcg (2,500 unit) chew Indications: Vitamin D deficiency Take 2 capsules by mouth daily after dinner. (actually chewable tablets) 06/14/2024 Active fluticasone propionate 0.05 mg/actuat metered dose nasal spray (20 sources) Corticosteroid Start: 04-13-20 18 take 2 spray(s) nasal route once daily fluticasone (FLONASE) 50 mcg/actuation nasal spray Use 2 Sprays in each nostril once daily. 04/13/2018 Active Start: 10-19-2017 Fluticasone Pr opionate 9.9 ML spray,suspension Active 15.8 mL NS DAILY as needed for ALLERGIES October 19, 2017 12:00am Comment on above: Use 2 Sprays in each nostril once daily. 24 hr metoprolol succinate 50 mg extended release oral tablet (4 sources) beta-Adrenergic Alejandro Start: 01-31-2025 take 1 tablet by mouth once daily Metoprolol Succinate 50 mg tablet extended release 24 hr Active 50 mg PO daily 90 January 31, 2025 2:42pm Start: 01-31-2025 End: 01-31-2025 take 1 tablet by mouth once daily Metoprolol Succinate 25 mg tablet extended release 24 hr Discontinued 25 mg PO daily 90 January 31, 2025 12:00am January 31, 2025 2:44pm molnupiravir 200 mg capsule (2 sources) Start: 08-29-2024 End: 09-03-2024 take 4 capsules by mouth twice daily molnupiravir 200 mg capsule Indications: COVID Take 4 capsules by mouth two times a day for 5 days. 40 capsule 08/29/2024 09/03/2024 Active Start: 06-25-2022 End: 06-30-2022 take 4 capsules by mouth twice daily molnupiravir 200 mg capsule Take 4 capsules by mouth twice daily for 5 days. 40 capsule 0 06/25/2022 06/30/2022 Active Comment on above: Take 4 capsules by m outh twice daily for 5 days. sotalol hydrochloride 80 mg oral tablet (20 sources) Antiarrhythmic Start: take 1 tablet by mouth twice daily Sotalol 80 mg tablet Active 80 mg PO TWICE A DAY 180 January 31, 2025 2:43pm Start: 01-27-2025 End: 01-31-2025 take 1 tablet by mouth twice daily Sotalol 120 mg tablet Discontinued 120 mg PO TWICE A DAY 60 January 27, 2025 10:51am January 31, 2025 2:44pm Start: 03-10-2023 End: 04-14-2023 Sotalol 80 mg tablet Discont inued 40 mg PO TWICE A DAY 180 March 10, 2023 2:50pm April 14, 2023 1:51pm Start: 03-10-2023 End: 04-14-2023 take 40 mg by mouth twice daily Sotalol Discontinued 4 0 MG PO TWICE A DAY 180 March 10, 2023 2:50pm April 14, 2023 1:51pm Start: 03-15-2021 End: 01-27-2025 take 1 tablet by mouth twice daily Sotalol 80 mg tablet Discontinued 80 mg PO TWICE A DAY 180 3 July 15, 2024 11:14am January 27, 2025 10:52am Start: 02-11-2021 End: 03-15-2021 Sotalol 80 mg tablet Discont inued 120 mg PO TWICE A DAY 60 0 March 09, 2021 3:49pm March 15, 2021 8:46am Start: 02-11-2021 End: 03-15-2021 take 120 mg by mouth twice daily Sotalol Discontinued 120 MG PO TWICE A DAY 60 March 09, 2021 3:49pm March 15, 2021 8:46am Comment on above: Take 80 mg by mouth twice daily. Completed/Discontinued Medications Medication Drug Class(es) Dates Sig (Normalized) Sig (Original) amoxicillin 500 mg oral capsule (1 source) Penicillin-class Antibacterial Start: 11-02-2021 End: 11-02-2021 take 4 capsules by mouth once in the morning amoxicillin (POLYMOX, AMOXIL) 500 mg capsule Take 500 mg by mouth one time only. take 4 capsules in AM prior to colonoscopy 0 11/02/2021 11/02/2021 Comment on above: Take 500 mg by mouth one time only. take 4 capsules in AM prior to colonoscopy biotin 1 mg chewable tablet (12 sources) Start: 09-26-2023 End: 01-10-2025 take 1 tablet by mouth once daily Biotin 1,000 mcg tablet,chewable Discontinued 1000 ug PO DAILY September 26, 2023 12:00am January 10, 2025 9:28am bisacodyl 5 mg delayed release oral tablet (3 sources) Stimulant Laxative Start: 08-19-2021 End: 12-22-2021 Bisacodyl (DULCOLAX) 5 mg tab Use as directed for Miralax / Gatorade Bowel Prep Kit 4 tablet 0 08/19/2021 12/22/2021 Discontinued Comment on above: Use as directed for Miralax / Gatorade Bowel Prep Kit docusate sodium 50 mg / sennosides, longterm 8.6 mg oral tablet (13 sources) Start: 02-04-2021 End: 03-09-2021 Sennosides-Docusat e Sodium (Stool Softener-Stimulant Laxat) 8.6-50 mg Tablet Discontinued 2 {tbl} PO TWICE A DAY 14 0 February 04, 2021 12:00am March 09, 2021 3:10pm Take until first bowel movement, then as needed flecainide acetate 100 mg oral tablet (20 sources) Antiarrhythmic Start: 10-23-2020 End: 10-27-2020 Flecainide 100 mg tablet Discontinued 150 mg PO Q12H 60 3 October 23, 2020 12:26pm October 27, 2020 12:52pm Start: 10-23-2020 End: 10-27-2020 take 150 mg by mouth every twelve hours Flecainide Discontinued 150 MG PO Q12H 60 October 23, 2020 12:26pm October 27, 2020 12:52pm Start: 09-30-2020 End: 10-23-2020 take 1 tablet by mouth every twelve hours Flecainide 100 mg tablet Discontinued 100 mg PO Q12H 60 3 September 30, 2020 12:00am October 23, 2020 12:26pm furosemide 40 mg oral tablet (20 sources) Loop Diuretic Start: 11-16-2020 End: 12-26-2024 take 1 tablet by mouth once daily Furosemide 40 mg tablet Discontinued 40 mg PO DAILY 30 October 20, 2023 12:00am December 04, 2023 1:03pm Comment on above: Take 1 tablet by kamila th once daily as needed (For swelling). (Has not needed since cardioversion but has on hand) Gatorade Sports Drink (3 sources) Start: 08-19-2021 End: 12-22-2021 Gatorade Sports Drink Use as directed for Miralax / Gatorade Bowel Prep Kit 0 08/19/2021 12/22/2021 Discontinued Start: 08-19-2021 Gatorade Sport s Drink Use as directed for Miralax / Gatorade Bowel Prep Kit 0 08/19/2021 Active Comment on above: Use as directed for Miralax / Gatorade Bowel Prep Kit hydroCHLOROthiazide 12.5 mg oral tablet (13 sources) Thiazide Diuretic Start: 2020 End: 2020 take 1 tablet by mouth once daily Hydrochlorothiazide 12.5 mg tablet Discontinued 12.5 mg PO DAILY October 06, 2020 12:00am October 08, 2020 10:19am lisinopril 30 mg oral tablet (20 sources) Angiotensin Converting Enzyme Inhibitor Start: 2022 End: 2023 take 1 tablet by mouth once daily Lisinopril 30 mg tablet Discontinued 30 mg PO DAILY 90 3 September 13, 2023 10:43am September 26, 2023 2:08pm Start: 08-26-2022 End: 11-14-2022 take 3 tablets by mouth once daily Lisinopril 10 mg tablet Discontinued 30 mg PO DAILY August 26, 2022 1:54pm November 14, 2022 2:17pm Start: 08-26-2022 End: 11-14-2022 take 30 mg by mouth once daily Lisinopril Discontinued 30 MG PO DAILY August 26, 2022 1:54pm November 14, 2022 2:17pm Start: 08-09-2022 End: 08-26-2022 take 2 tablets by mouth once daily Lisinopril 10 mg tablet Discontinued 20 mg PO DAILY August 09, 2022 3:36pm August 26, 2022 1:54pm Start: 08-09-2022 End: 08-26-2022 take 20 mg by mouth once daily Lisinopril Discontinued 20 MG PO DAILY August 09, 2022 3:36pm August 26, 2022 1:54pm Start: 06-22-2022 End: 12-20-2023 take 1 tablet by mouth once daily lisinopril (ZESTRIL, PRINIVIL) 20 mg tablet Indications: Essential hypertension Take 1 tablet by mouth once daily. 90 tablet 3 06/22/2022 12/20/2023 Discontinued (Discontinued by another Health Care Provider) Start: 01-20-2021 End: 01-31-2022 take 2 tablets by mouth once daily Lisinopril 5 mg tablet Discontinued 10 mg PO DAILY January 20, 2021 10:52am January 31, 2022 2:02pm BP Start: 01-20-2021 End: 01-31-2022 take 10 mg by mouth once daily Lisinopril Discontinued 10 MG PO DAILY January 20, 2021 10:52am January 31, 2022 2:02pm Start: 12-15-2020 End: 08-09-2022 take 1 tablet by mouth once daily Lisinopril 10 mg tablet Discontinued 10 mg PO DAILY January 31, 2022 12:00am August 09, 2022 3:37pm Start: 11-10-2020 End: 01-20-2021 take 1 tablet by mouth once daily Lisinopril 5 mg tablet Discontinued 5 mg PO DAILY 1 November 10, 2020 1:40pm January 20, 2021 10:52am Start: 10-08-2020 End: 11-10-2020 take 1 tablet by mouth once daily Lisinopril 10 mg tablet Discontinued 10 mg PO DAILY 90 October 08, 2020 12:00am November 10, 2020 1:41pm Comment on above: Take 1 tablet by kamila th once daily. Take 1 tablet by kamila th every afternoon. losartan potassium 50 mg oral tablet (20 sources) Angiotensin 2 Receptor Alejandro Start: End: take 1 tablet by mouth once daily Losartan 50 mg tablet Discontinued 50 mg PO DAILY 90 January 27, 2025 10:55am January 31, 2025 2:38pm Start: 09-26-2023 End: 01-27-2025 take 1 tablet by mouth once daily Losartan 100 mg tablet Discontinued 100 mg PO DAILY 90 October 04, 2024 1:49pm January 27, 2025 10:55am mupirocin 0.02 mg/mg topical ointment (12 sources) RNA Synthetase Inhibitor Antibacterial Start: 12-23-2022 End: 12-26-2024 mupirocin (BACTROBAN) 2 % ointment Apply to affected area three times daily. Use for 5 to 10 days for skin infection 15 g 12/23/2022 12/26/2024 Discontinued Comment on above: Apply to affected ar ea three times daily. Use for 5 to 10 days for skin infection oxyCODONE hydrochloride 5 mg oral tablet (13 sources) Opioid Agonist Start: 02-04-2021 End: 06-08-2021 take 5-10 mg by mouth every four hours as needed for pain Oxycodone 5 mg Tablet Discontinued 5 - 10 mg PO EVERY 4 HOURS NEEDED as needed for Pain Score 4-10 60 5 0 February 04, 2021 June 08, 2021 3:55pm Status post total left knee replacement Presence of left artificial knee joint polyethylene glycol 3350 14143 mg powder for oral solution (3 sources) Osmotic Laxative Start: 08-19-2021 End: 12-22-2021 polyethylene glycol 3350 (MIRALAX, GLYCOLAX) 17 gram/dose powder Use as directed for Miralax / Gatorade Bowel Prep Kit 238 g 0 08/19/2021 12/22/2021 Discontinued Comment on above: Use as directed for Miralax / Gatorade Bowel Prep Kit rivaroxaban 20 mg oral tablet (20 sources) Factor Xa Inhibitor Start: 10-20-2017 End: 10-04-2024 take 1 tablet by mouth once daily Rivaroxaban 20 mg tablet Discontinued 20 mg PO DAILY 90 October 25, 2023 11:57am October 04, 2024 1:49pm Comment on above: Take 1 tablet by kamila th once daily. Take 1 tablet by kamila th once daily. (cardiology filling) sertraline 25 mg oral tablet (20 sources) Serotonin Reuptake Inhibitor Start: 01-26-2022 End: 08-09-2022 Sertraline 25 mg tablet Discontinued 0.5 {tbl} PO DAILY January 26, 2022 12:00am August 09, 2022 3:37pm Start: 06-21-2021 End: 12-26-2024 take 1 tablet by mouth once daily Sertraline 25 mg tablet Active 25 mg PO DAILY August 09, 2022 3:37pm Start: 10-20-2017 End: 06-20-2019 take 0.5 tablet by mouth once daily, then take 1 tablet by mouth once daily in the morning Sertraline 50 MG tablet Discontinued 50 mg PO DAILY 30 0 October 20, 2017 12:00am June 20, 2019 10:48am take 1/2 tab daily for 1 week and if you have no adverse side effects increase to 1 whole tab daily in the AM Comment on above: Take 1 tablet by kamila th once daily. zolpidem tartrate 5 mg oral tablet (20 sources) gamma-Aminobutyr ic Acid-ergic Agonist Start: End: take 1 tablet by mouth at bedtime as needed zolpidem (AMBIEN) 5 mg tablet Indications: Psychophysiological insomnia Take 1 tablet by mouth at bedtime as needed for sedation for up to 180 days. Patient should start on December 15, 2024. 90 tablet 1 12/15/2024 12/26/2024 Discontinued Start: 06-19-2024 End: 06-14-2024 take 1 tablet by mouth at bedtime as needed zolpidem (AMBIEN) 5 mg tablet Indications: Psychophysiological insomnia Take 1 tablet by mouth at bedtime as needed for sedation for up to 180 days. Patient should start on June 19, 2024. 30 tablet 5 06/19/2024 06/14/2024 Discontinued Start: 08-02-2014 End: 12-16-2024 take 1 tablet by mouth at bedtime as needed for sleep Zolpidem 5 mg tablet Discontinued 5 mg PO AT BEDTIME as needed for Sleep March 09, 2021 3:10pm September 26, 2023 1:47pm Start: 08-02-2014 End: 01-13-2023 take 1 tablet by mouth at bedtime as needed zolpidem (AMBIEN) 5 mg tablet Indications: Psychophysiological insomnia Take 1 tablet by mouth at bedtime as needed for sedation for up to 60 days. 30 tablet 1 11/14/2022 01/13/2023 Active Comment on above: Take 1 tablet by kamila th at bedtime as needed for sedation for up to 180 days. Take 1 tablet by kamila th at bedtime as needed for sedation for up to 60 days. Problems Active Problems Problem Classification Problem Date Documented Date Episodic/Chronic Anxiety disorders (20 sources) Generalized anxiety disorder; Translations: [Generalized anxiety disorder] 05-02-2005 Chronic Cardiac and circulatory congenital anomalies (20 sources) Patent foramen ovale; Translations: [Atrial septal defect] Onset: 3 11-28-2012 Chronic Cardiac dysrhythmias (20 sources) Paroxysmal atrial flutter; Translations: [Unspecified atrial flutter] Onset: 8 Chronic Cardiac dysrhythmias (20 sources) Palpitations; Translations: [Palpitations] Onset: 7 Resolved: 3 06-28-2021 Episodic Disorders of lipid metabolism (3 sources) Dyslipidemia; Translations: [Hyperlipidemia, unspecified] Onset: 5 12-13-2023 Chronic Essential hypertension (20 sources) Essential hypertension; Translations: [Essential (primary) hypertension] Onset: 1 Chronic Miscellaneous mental health disorders (9 sources) Psychophysiologic insomnia; Translations: [Psychophysiologic insomnia] Onset: 5 Chronic Nonmalignant breast conditions (15 sources) Mammographic microcalcification of breast; Translations: [Mammographic microcalcification found on diagnostic imaging of breast] Episodic Nonspecific chest pain (12 sources) Chest discomfort; Translations: [Other chest pain] Onset: 5 01-31-2022 Episodic Nutritional deficiencies (20 sources) Vitamin D deficiency; Translations: [Vitamin D deficiency, unspecified] Onset: 1 01-17-2021 Chronic Osteoarthritis (20 sources) Primary gonarthrosis, bilateral; Translations: [Bilateral primary osteoarthritis of knee] Onset: 9 10-08-2018 Chronic Other aftercare (6 sources) Patient encounter status; Translations: [Other detention (current) drug therapy] Episodic Other aftercare (10 sources) Drug therapy finding; Translations: [[facility] (current) use of anticoagulants] 04-13-2023 Episodic Other aftercare (7 sources) Long-term current use of anticoagulant; Translations: [watermaster (current) use of anticoagulants] 09-16-2024 Episodic Other circulatory disease (7 sources) H/O: atrial fibrillation; Translations: [Personal history of other diseases of the circulatory system] 09-16-2024 Episodic Other connective tissue disease (2 sources) History of total knee arthroplasty; Translations: [Presence of left artificial knee joint] Chronic Other gastrointestinal disorders (20 sources) Diarrhea; Translations: [Diarrhea, unspecified] Onset: 6 Resolved: 3 01-31-2022 Episodic Other liver diseases (13 sources) Cardiac enzymes abnormal; Translations: [Abnormal levels of other serum enzymes] 02-12-2021 Episodic Other lower respiratory disease (13 sources) Dyspnea on exertion; Translations: [Dyspnea, unspecified] 01-29-2022 Episodic Other lower respiratory disease (20 sources) Dyspnea; Translations: [Dyspnea, unspecified] 02-04-2022 Episodic Other lower respiratory disease (1 source) Shortness of breath; Translations: [Shortness of breath] Onset: 5 Episodic Other nervous system disorders (1 source) Other chronic pain; Translations: [Chronic pain of right knee] Onset: 5 Chronic Other non-traumatic joint disorders (1 source) Ankle edema; Translations: [Effusion, right ankle] 01-25-2024 Episodic Other non-traumatic joint disorders (2 sources) Pain in right knee; Translations: [Pain in joint, lower leg] Onset: 5 12-26-2024 Episodic Other screening for suspected conditions (not mental disorders or infectious disease) (19 sources) Raised TSH level; Translations: [Other specified abnormal findings of blood chemistry] Onset: Episodic Residual codes; unclassified (13 sources) Absent kidney; Translations: [Acquired absence of kidney] 06-19-2019 Episodic Residual codes; unclassified (20 sources) Family history of breast cancer; Translations: [Family history of malignant neoplasm of breast] 04-04-2017 Episodic Residual codes; unclassified (20 sources) Flushing; Translations: [Flushing] Episodic Residual codes; unclassified (9 sources) Edema; Translations: [Edema, unspecified] 10-19-2023 Episodic Residual codes; unclassified (7 sources) History of drug therapy; Translations: [Other specified postprocedural states] 09-16-2024 Episodic Thyroid disorders (20 sources) Cyst of thyroid; Translations: [Nontoxic single thyroid nodule] Onset: 5 09-24-2014 Chronic Unclassified (1 source) OPENED IN ERROR Unclassified (12 sources) I48.92 - Unspecified atrial flutter Varicose veins of lower extremity (2 sources) Venous varices; Translations: [Varicose veins of unspecified lower extremity with other complications] Episodic Viral infection (2 sources) Disease caused by 2019-nCoV; Translations: [COVID-19] Episodic Past or Other Problems Problem Classification Problem Date Documented Da te Episodic/Chronic Hemorrhoids (11 sources) External hemorrhoids; Translations: [Residual hemorrhoidal skin tags] Onset: 04-26-2010 Resolved: 08-08-2012 08-08-2012 Episodic Menopausal disorders (11 sources) Postmenopausal bleeding; Translations: [Postmenopausal bleeding] Onset: 09-30-2009 Resolved: 08-08-2012 08-08-2012 Chronic Mood disorders (11 sources) Depressive disorder; Translations: [Other specified depressive episodes] Resolved: 04-04-2017 04-04-2017 Chronic Other aftercare (1 source) Other detention (current) drug therapy; Translations: [Encounter for long-term current use of medication] Onset: 06-10-2024 Episodic Other and unspecified benign neoplasm (20 sources) History of polyp of colon; Translations: [Personal history of colonic polyps] Onset: 02-10-2010 Episodic Other and unspecified benign neoplasm (11 sources) Benign neoplasm of colon; Translations: [Benign neoplasm of colon, unspecified] Onset: 05-01-2006 Resolved: 08-08-2012 08-08-2012 Episodic Other connective tissue disease (11 sources) Ganglion cyst; Translations: [Ganglion, unspecified site] Onset: 01-20-2010 Resolved: 08-08-2012 08-08-2012 Episodic Other gastrointestinal disorders (11 sources) Irritable bowel syndrome; Translations: [Irritable bowel syndrome without diarrhea] Resolved: 08-08-2012 08-08-2012 Chronic Other inflammatory condition of skin (11 sources) Rosacea; Translations: [Rosacea, unspecified] Onset: 07-16-2008 Resolved: 08-08-2012 08-08-2012 Chronic Other skin disorders (20 sources) Eruption; Translations: [Rash and other nonspecific skin eruption] Onset: 04-13-2018 04-13-2018 Episodic Other skin disorders (11 sources) Acne; Translations: [Other acne] Onset: 05-03-2005 Resolved: 08-08-2012 08-08-2012 Episodic Residual codes; unclassified (20 sources) Kidney donor; Translations: [Kidney donors] Onset: 01-01-2013 01-01-2013 Episodic Residual codes; unclassified (11 sources) Insomnia; Translations: [Insomnia, unspecified] Resolved: 08-08-2012 08-08-2012 Episodic Residual codes; unclassified (3 sources) History of cardioversion; Translations: [Personal history of other medical treatment] Onset: 11-11-2020 01-20-2025 Episodic Screening and history of mental health and substance abuse codes (20 sources) Ex-smoker; Translations: [Personal history of nicotine dependence] Onset: 01-05-2015 06-28-2021 Episodic Results Test Name Value Interpretation Reference Range Facility Anion gap in Serum or Plasma Ordered By: Sterling Thapa on 01-13-2025 Anion gap [Moles/Vol] 11 mmol/L 5-15 [facility] BUN/creatinine ratioOrdered By: Sterling Thapa on 01-13-2025 Urea nitrogen/Creatinine [Mass ratio] 26.9 mg/mg High 10-20 [facility] Basic Metabolic Profile (BMP )on 01-13-2025 BUN/CRE 26.9 RATIO High -20 [facility] Comment on above: Performed By: #### L 500.2500 #### [facility] [address] [place], [address] Calcium [Mass/Vol] 9.5 mg/dL Normal 7.6-11.0 [facility] Comment on above: Performed By: #### L 500.2500 #### [facility] [address] [place], [address] Chloride [Moles/Vol] 104 mmol/L Normal 98-108 [facility] Comment on above: Performed By: #### L 500.2500 #### [facility] [address] [place], [address] CO2 [Moles/Vol] 23.5 mmol/L Normal 21.0-32.0 [facility] Comment on above: Performed By: #### L 500.2500 #### [facility] [address] [place], [address] Creatinine [Mass/Vol] 1.09 mg/dL Normal 0.70-1.20 [facility] Comment on above: Performed By: #### L 500.2500 #### [facility] [address] [place], [address] ECRCL 44.75 ml/min Low 50-250 [facility] Comment on above: Performed By: #### L 500.2500 #### [facility] [address] [place], [address] GAP 11 Normal 5-15 [facility] Comment on above: Performed By: #### L 500.2500 #### [facility] [address] [place], [address] GFR/1.73 sq M.predicted among non-blacks MDRD (S/P/Bld) [Vol rate/Area] 54 mL/min/{1.73_m2} Low >60 [facility] Comment on above: Result Comment: mL/m in/1.73m2 CKD-EPI Creatinine Equation (2020) Performed By: #### L 500.2500 #### [facility] [address] [place], [address] Glucose [Mass/Vol] 120 mg/dL High 70-99 [facility] Comment on above: Performed By: #### L 500.2500 #### [facility] [address] [place], [address] Potassium [Moles/Vol] 5.1 mmol/L Normal 3.3-5.1 [facility] Comment on above: Result Comment: Hemo lysis present, Results??could be affected. ?? Performed By: #### L 500.2500 #### [facility] [address] [place], [address] Sodium [Moles/Vol] 138 mmol/L Normal 133-145 [facility] Comment on above: Performed By: #### L 500.2500 #### [facility] [address] [place], [address] Urea nitrogen [Mass/Vol] 29 mg/dL High 4-19 [facility] Comment on above: Performed By: #### L 500.2500 #### [facility] [address] [place], [address] Carbon dioxide, total [Moles /volume] in Central venous bloodOrdered By: Sterling Alanis on 01-13-2025 CO2 [Moles/Vol] 23.5 mmol/L 21.0-32.0 [facility] Chloride assayOrdered By: Cy ril Alanis on 01-13-2025 Chloride [Moles/Vol] 104 mmol/L 98-108 [facility] Glomerular filtration rate ( GFR) estimation/1.73 sq m using serum, plasma, or whole bOrdered By: Sterling Thapa on 01-13-2025 GFR/1.73 sq M.predicted among non-blacks MDRD (S/P/Bld) [Vol rate/Area] 54 mL/min/{1.73_m2} Low >60 [facility] Comment on above: mL/min/1.73m2 CKD-EP I Creatinine Equation (2020) Potassium measurement (mass/ volume)Ordered By: Sterling Thapa on 01-13-2025 Potassium (Unsp spec) [Mass/Vol] 5.1 mmol/L 3.3-5.1 [facility] Comment on above: Hemolysis present, R esults could be affected. Procedure Reporton Procedure Report [facility] Medical Records Department [address] [place] [address] Procedure Report 01/13/25 1312 MR#: [id number] Acct: [id number] Name: WINSTON OHARA Rep #: [id number] : 1950 74 From: Gage Zuñiga DO PCP: Dr. Liliam Alaniz MD [place] [facility] [place] [facility] Procedures Pulmonary Pulmonary Procedures /Diagnostic Testin Con Sedation Non-invasive Procedural Procedure Information Date of Procedure: 01/13/25 Description of procedure: CONSCIOUS SEDATION REPORT DATE OF SERVICE: January 13, 2025 BRIEF HISTORY OF PRESENT ILLNESS: The patient is a 74-year-old female who presented to [facility] to undergo an elective outpatient cardioversion due to underlying atrial fibrillation. The patient did report that she had undergone prior cardioversions, but denied any prior anesthetic complications. The patient denied a history of obstructive sleep apnea. The patient is systemically anticoagulated on Xarelto with an ejection fraction last noted to be approximately 55%. PHYSICAL EXAMINATION: VITAL SIGNS: Reviewed and were acceptable. GENERAL: The patient is a female, in no apparent distress, speaking in full sentences. HEENT: Normocephalic, atraumatic. Mucous membranes are moist and pink. Good mouth opening noted. Trachea is midline. CHEST: S1, S2 irregularly irregular. No murmurs, rubs or gallops were noted. LUNGS: Clear to auscultation bilaterally without appreciable wheezes, rales or rhonchi. ABDOMEN: Soft, nontender, nondistended. Positive bowel sounds. EXTREMITIES: There is no clubbing, cyanosis or edema. ASA Class: II DESCRIPTION OF PROCEDURE: After confirmation of informed consent, the patient's anesthesia plan was reviewed in detail. Propofol was chosen. Risks and benefits were reviewed and the patient agreed to proceed. At 1203, the patient was given 40 mg of propofol. The patient achieved an appropriate level of sedation and was given a 200 joule synchronized cardioversion by Dr. Thapa at the bedside. This was successful in achieving normal sinus rhythm. The patient was monitored until 1219, at which time she reached her baseline mental status and function. The patient tolerated the procedure well. COMPLICATIONS: None ESTIMATED BLOOD LOSS: None RECOMMENDATIONS: Okay to recover in usual fashion. 01/13/25 1314 Cosigner Signature (if applicable): CC: Dr. Sterling Thapa MD; Dr. Gage Zuñiga DO; Dr. Liliam Alaniz MD Signed Normal [facility] Procedure Report [facility] Medical Records Department [address] [place] [address] Procedure Report 01/13/25 1212 MR#: [id number] Acct: [id number] Name: WINSTON OHARA Rep #: [id number] : 1950 74 From: Sterling Thapa MD PCP: Dr. Liliam Alaniz MD [place] [facility] [place] [facility] Problems Associated Problem List Diagnoses (1) Paroxysmal atrial flutter: Non-invasive Procedural Procedure Information Date of Procedure: 01/13/25 Pre-Procedure Diagnosis: Atrial flutter Post-Procedure Diagnosis: Same Procedure Performed:: DC cardioversion air press operator: No Procedure Time Out: 12:01 Procedure Start Time: 12:04 Procedure Stop Time: 12:10 Special Medications: 40 mg of intravenous propofol Description of procedure: Patient was brought to cardiac catheterization lab in the postabsorptive nonsedated state. Informed consent was obtained. Patient was seen by Dr. Zuñiga of the critical care division. Anterior posterior pads were applied. The patient was administered 40 mg of intravenous propofol. 200 J of synchronized DC biphasic cardioversion energy were applied with prompt reversal to sinus rhythm. Patient was noted to have a period of bradycardia. She however maintained sinus rhythm. Procedure findings: Successful DC cardioversion from atrial flutter to sinus rhythm. Plan is to increase sotalol from 80 mg to 120 mg and obtain an EKG within 48 hours. Appointment made for the office. 01/13/25 1214 Cosigner Signature (if applicable): CC: Dr. Sterling Thapa MD; Dr. Liliam Alaniz MD Signed Normal [facility] Serum creatinine measurement (mass/volume)Ordered By: Sterling Thapa on 01-13-2025 Creatinine [Mass/Vol] 1.09 mg/dL 0.70-1.20 [facility] Serum glucose measurement (m ass/volume)Ordered By: Sterling Thapa on 01-13-2025 Glucose [Mass/Vol] 120 mg/dL High 70-99 [facility] Serum or plasma calcium hay urement (mass/volume)Ordered By: Sterling Thapa on 01-13-2025 Calcium [Mass/Vol] 9.5 mg/dL 7.6-11.0 [facility] Serum or plasma urea nitroge n measurement (mass/volume)Ordered By: Sterling Thapa on 01-13-2025 Urea nitrogen [Mass/Vol] 29 mg/dL High 4-19 [facility] Sodium levelOrdered By: Delvin Thapa on 01-13-2025 Sodium [Moles/Vol] 138 mmol/L 133-145 [facility] Cardiology Visit Reporton Cardiology Visit Report [facility] [place] [address] OFFICE VISIT Date of Service: 01/10/25 MR#: [id number] Acct: [id number] Name: WINSTON OHARA Rep #: [id number] : 1950 Provider: CHANCE Peacock Age/Sex: 74/F [place] [facility] [place] Status: Signed HPI HPI History of Present Illness Details: WINSTON OHARA, is a 74 F who presents to the office today for a cardiovascular visit. She is a lady with a history of hypertension, paroxysmal atrial fibrillation, single kidney. Patient presented to the hospital for palpitations in February of 2024 for atrial fibrillation with RVR, following a left total knee replacement. She was started on sotalol. She underwent a nuclear stress test due to elevated troponin. Stress test was negative for stress-induced ischemia. She also had an echocardiogram in 11/2023 demonstrated Normal left ventricle. Left ventricular systolic function is normal. The left ventricular ejection fraction is 60 %. Mild to moderate (1-2+) tricuspid valve insufficiency. Pulmonary artery systolic pressure is 50 mmHg. Patient had a 24-hour Holter monitor in March 2023 which demonstrated periods of sinus arrhythmia. She did not have any atrial fibrillation. She was in the emergency room in August of 2024 with atrial fibrillation flutter for which she underwent DC cardioversion. Pt had returned to Atrial fib on 01/07/2025. Her HRs have been variable. Today her EKG demonstrates Atrial flutter with a HR of 133. She does feel her heart racing. She is not more SOB. She does not have any chest pain, lightheadedness/dizzine ss. Intake Vital Signs 10/04/24 13:41 01/10/25 09:26 Height 5 ft 4 in 5 ft 4 in Weight: 156 lb 153 lb BMI 26.7 26.2 BP 159/74 H 109/66 Blood Pressure Location Lt brachial Lt brachial Position Sitting Sitting Respiration 16 16 Pulse 54 L 123 H Pulse Source Monitor Monitor Intake Visit Reasons: a fib, see clinical notes Family Consumer Science Teacher Required: No Accompanied by: Self Is patient in pain?: No Allergies flecainide Allergy (Verified 01/10/25 09:27) Left Bundle Branch Block/BUE tingling/leg weakness aspirin (ASA) Adverse Reaction (Verified 01/10/25 09:27) ONLY HAS ONE KIDNEY, TOLD TO AVOID cortisone Adverse Reaction (Verified 01/10/25 09:27) CHEST HOT WEIRD NSAIDS (Non-Steroidal Anti-Inflamma Adverse Reaction (Verified 01/10/25 09:27) ONLY HAS ONE KIDNEY, TOLD TO AVOID Medications ???Medication ???Instructions ???Recorded ???Confirmed ???Type fluticasone propionate 50 15.8 ml NS DAILY PRN ALLERGIES 01/10/25 History mcg/actuation nasal spray,suspension bismuth subsalicylate 262 mg 2 tablet PO Q30-60M PRN Diarrhea 0 10/08/20 01/10/25 History tablet (Pepto-Bismol) cholecalciferol (vitamin D3) 25 50 mcg PO DAILY Supplement 1 01/10/25 History mcg (1,000 unit) tablet (Vitamin D3) sertraline 25 mg tablet 25 mg PO DAILY 08/09/22 01/10/25 H istory acetaminophen 500 mg tablet 1,000 mg PO Q8 PRN 09/26/23 History zolpidem 5 mg tablet 5 mg PO QHS Sleep 09/26/23 5 History furosemide 40 mg tablet 40 mg PO DAILY PRN edema #30 tabs 12/04/23 01/10/25 Rx sotalol 80 mg tablet 80 mg PO BID #180 tabs 07/15/24 Rx losartan 100 mg tablet 100 mg PO DAILY #90 tabs 10/04/24 01/10/25 Rx rivaroxaban 20 mg tablet 20 mg PO DAILY #90 tabs 10/04/24 0 01/10/25 Rx Have you fallen in the past year?: Yes (dog tripped her) PFSH Medical History Dyspnea Wears glasses Post-menopausal Arthritis History of diverticulitis Former smoker History of pain when walking History of edema Normal stress echocardiogram Hx of thyroid cyst Persistent atrial fibrillation (11/02/20) Paroxysmal atrial flutter (10/2017) Paroxysmal atrial fibrillation (10/2017) Essential (primary) hypertension Single kidney Insomnia Anxiety Atrial fibrillation with RVR Surgical History History of left knee replacement Hx of cystoscopy History of cardioversion (11/11/20) History of nephrectomy History of colon surgery Hx of appendectomy Family History Mother Hypertension Father Hypertension Prostate cancer Leukemia Sister vein problem DVT (deep venous thrombosis) Hypertension Social History Smoking Status: Former smoker alcohol intake: never substance use type: does not use caffeine: Yes Type: coffee Number of servings: 4 what type of physical activity do you participate in: walking frequency: daily ROS Const Const: Negative for fatigue or weakness Eyes Eyes: Negative for c (more content not included)... Normal [facility] CNOVon 12-26-2024 CNOV Office Visit (INTMWS ) WINSTON OHARA ([id number]) 1950 F NFR Date Time Provider Department 12/26/24 10:20 AM LILIAM ALANIZ INTMWS During your visit today, we recorded the following information about you: Pulse Respiration Blood pressure Weight 88/minute 14/minute 136/62 70.1 kg Liliam Alaniz MD 12/26/2024 11:24 AM Signed This note was created using [employer]. Subjective Winston Ohara is a 74 year old female. SUBJECTIVE: Winston Ohara is a 74-year-old female with a history of right knee osteoarthritis and atrial fibrillation, presenting for a 6-month follow-up. Winston reports worsening right knee pain, which she describes as bone on bone with associated clicking. She believes this is affecting her gait, leading to secondary back and hip pain. She has not had recent imaging for the right knee but mentions a previous x-ray that showed significant arthritis. She is considering knee replacement surgery and inquires about the impact of her knee condition on her overall alignment and pain. Winston also reports recurrent episodes of atrial fibrillation, with the most recent episode occurring in August, requiring cardioversion. She is currently on sotalol, taken once in the morning and once at night, and inquires about the possibility of adjusting the dosage during episodes of atrial fibrillation. She expresses uncertainty about undergoing an ablation procedure recommended by her upsetter helper, Dr. Ling, and seeks advice on whether to prioritize the ablation or knee surgery. She also mentions a history of COVID-19, which she believes may have triggered her atrial fibrillation episodes. She is currently taking sertraline for anxiety and depression, which she reports helps manage her emotions. She also takes losartan for blood pressure control and inquires about ways to further lower her blood pressure. She denies current swelling issues and has not been taking Lasix. She has a prescription for Ambien and requests a refill. 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 Thapa Peptic ulcer, unspecified site, unspecified as acute or chronic, without mention of hemorrhage, perforation, or obstruction Personal history of colonic polyps Thyroid cyst 09/24/2014 Current Outpatient Medications Medication Sig cholecalciferol, vitamin D3, 62.5 mcg (2,500 unit) chew Take 2 capsules by mouth daily after dinner. (actually chewable tablets) losartan (COZAAR) 100 mg tablet Take 100 mg by mouth once daily. XARELTO 20 mg tablet Take 1 tablet by mouth once daily. (cardiology filling) sotalol (BETAPACE) 80 mg tablet Take 80 mg by mouth twice daily. fluticasone (FLONASE) 50 mcg/actuation nasal spray Use 2 Sprays in each nostril once daily. acetaminophen (TYLENOL) 500 mg tablet EVERY 6 HOURS NEEDED bismuth subsalicylate(PEPTO-BIS MOL 262 MG TAB) Takes 2 pills daily as needed for IBS flare up sertraline (ZOLOFT) 25 mg tablet Take 1 tablet by mouth once daily. [START ON 01/11/2025] zolpidem (AMBIEN) 5 mg tablet Take 1 tablet by mouth at bedtime as needed for sedation for up to 180 days. Patient should start on January 11, 2025. No current facility-administered medications for this visit. Review of Systems Objective BP 136/62 (BP Site: Left Arm, BP Position: Sitting, BP Cuff Size: Large Adult) Pulse 88 Resp 14 Wt 70.1 kg (154 lb 8.7 oz) LMP 08/31/2009 SpO2 98% BMI 26.53 kg/m? Last 5 Encounter Wt Readings: Date: Wt: 12/26/2024 70.1 kg (154 lb 8.7 oz) 06/14/2024 69 kg (152 lb 1.9 oz) 12/20/2023 69.9 kg (154 lb) 06/05/2023 68 kg (150 lb) 12/23/2022 67.6 kg (149 lb) No waist measurement recorded Estimated body mass index is 26.53 kg/m? as calculated from the following: Height as of 06/14/24: 162.6 cm (5' 4). Weight as of this encounter: 70.1 kg (154 lb 8.7 oz). Last 5 Encounter BP Readings: Date: BP: 12/26/2024 136/62 08/29/2024 141/71 06/14/2024 134/68 12/20/2023 114/64 06/05/2023 138/74 Physical Exam Constitutional: Appearance: Normal appearance. HENT: Head: Normocephalic. Eyes: Conjunctiva/sclera: Conjunctivae normal. Cardiovascular: Rate and (more content not included)... Normal [facility] 25(OH)D3 [facility] 2024 25-hydroxyvitamin D3 [Mass/Vol] 36.6 ng/mL Normal 31.0-80.0 [facility] Comment on above: Order Comment: Reanna kaplan Type: BLOOD SPECIMEN Ordering Facility: [facility] Address: [address] [place] [address] Result Comment: Clas sification of 25 [place] Vitamin D status: Deficiency/Insufficiency: < or = 30 ng/ml. Sufficiency/Optimal Levels: 31-80 ng/mL Toxicity: > 100 ng/mL. Test performed by chemiluminescent immunoassay. Performed By: #### 1 [id number] #### [facility] CLIA [id number] [address] [place] [address] [place] [address] [place] CBC panel Auto (Bld)on 12-23 Erythrocyte distribution width (RBC) [Ratio] 13.0 % Normal 11.5-15.0 [facility] Comment on above: Order Comment: Reanna kaplan Type: BLOOD SPECIMEN Ordering Facility: [facility] Address: [address] [place] [address] Performed By: #### 5 [id number] #### [facility] CLIA [id number] [address] [place] [address] [place] Hematocrit (Bld) [Volume fraction] 40.6 % Normal 36.0-46.0 [facility] Comment on above: Order Comment: Speci men Type: BLOOD SPECIMEN Ordering Facility: [facility] Address: [address] [place] [address] Performed By: #### 5 8410-2 #### [facility] CLIA [id number] [address] [place] [address] [place] Hemoglobin (Bld) [Mass/Vol] 13.2 g/dL Normal 11.5-15.5 [facility] Comment on above: Order Comment: Speci men Type: BLOOD SPECIMEN Ordering Facility: [facility] Address: [address] [place] [address] Performed By: #### 5 8410-2 #### [facility] CLIA [id number] [address] [place] [address] [place] MCH (RBC) [Entitic mass] 30.5 pg Normal 26.0-34.0 [facility] Comment on above: Order Comment: Speci men Type: BLOOD SPECIMEN Ordering Facility: [facility] Address: [address] [place] [address] Performed By: #### 5 8410-2 #### [facility] CLIA [id number] [address] [place] [address] [place] MCHC (RBC) [Mass/Vol] 32.5 g/dL Normal 30.5-36.0 [facility] Comment on above: Order Comment: Speci men Type: BLOOD SPECIMEN Ordering Facility: [facility] Address: [address] [place] [address] Performed By: #### 5 8410-2 #### [facility] CLIA [id number] [address] [place] [address] [place] MCV (RBC) [Entitic vol] 93.8 fL Normal 80.0-100.[address] [facility] Comment on above: Order Comment: Speci men Type: BLOOD SPECIMEN Ordering Facility: [facility] Address: [address] [place] [address] Performed By: #### 5 8410-2 #### [facility] CLIA [id number] [address] [place] [address] [place] Nucleated RBC (Bld) [#/Vol] 10*3/uL Normal <0.01 [facility] Comment on above: Order Comment: Speci men Type: BLOOD SPECIMEN Ordering Facility: [facility] Address: [address] [place] [address] Performed By: #### 5 8410-2 #### [facility] CLIA [id number] [address] [place] [address] [place] Platelet mean volume (Bld) [Entitic vol] 10.2 fL Normal 9.0-12.7 [facility] Comment on above: Order Comment: Speci men Type: BLOOD SPECIMEN Ordering Facility: [facility] Address: [address] [place] [address] Performed By: #### 5 8410-2 #### [facility] CLIA [id number] [address] [place] [address] [place] Platelets (Bld) [#/Vol] 194 10*3/uL Normal 150-400 [facility] Comment on above: Order Comment: Speci men Type: BLOOD SPECIMEN Ordering Facility: [facility] Address: [address] [place] [address] Performed By: #### 5 8410-2 #### [facility] CLIA [id number] [address] [place] [address] [place] RBC (Bld) [#/Vol] 4.33 10*6/uL Normal 3.90-5.20 [facility] Comment on above: Order Comment: Speci men Type: BLOOD SPECIMEN Ordering Facility: [facility] Address: [address] [place] [address] Performed By: #### 5 8410-2 #### [facility] CLIA [id number] [address] [place] [address] [place] WBC (Bld) [#/Vol] 5.45 10*3/uL Normal 3.70-11.00 [facility] Comment on above: Order Comment: Speci men Type: BLOOD SPECIMEN Ordering Facility: [facility] Address: [address] [place] [address] Performed By: #### 5 8410-2 #### [facility] CLIA [id number] [address] [place] [address] [place] Comprehensive metabolic 2000 panelon 12-23-2024 Albumin [Mass/Vol] 4.2 g/dL Normal 3.9-4.9 [facility] Comment on above: Order Comment: Speci men Type: BLOOD SPECIMEN Ordering Facility: [facility] Address: [address] [place] [address] Performed By: #### 2 4331-1, 78007-0 #### [facility] CLIA [id number] [address] [place] [address] [place] ALP [Catalytic activity/Vol] 136 U/L High 34-123 [facility] Comment on above: Order Comment: Speci men Type: BLOOD SPECIMEN Ordering Facility: [facility] Address: [address] [place] [address] Performed By: #### 2 4331-1, 76425-2 #### [facility] CLIA [id number] [address] [place] [address] [place] ALT [Catalytic activity/Vol] 12 U/L Normal 7-38 [facility] Comment on above: Order Comment: Speci men Type: BLOOD SPECIMEN Ordering Facility: [facility] Address: [address] [place] [address] Performed By: #### 2 4331-1, 32693-8 #### [facility] CLIA [id number] [address] [place] [address] [place] Anion gap [Moles/Vol] 9 mmol/L Normal 8-15 [facility] Comment on above: Order Comment: Speci men Type: BLOOD SPECIMEN Ordering Facility: [facility] Address: [address] [place] [address] Performed By: #### 2 4331-1, 62424-4 #### [facility] CLIA [id number] [address] [place] [address] [place] AST [Catalytic activity/Vol] 24 U/L Normal 13-35 [facility] Comment on above: Order Comment: Speci men Type: BLOOD SPECIMEN Ordering Facility: [facility] Address: [address] [place] [address] Performed By: #### 2 4331-, 40283-2 #### [facility] CLIA [id number] [address] [place] [address] [place] Bilirubin [Mass/Vol] 0.7 mg/dL Normal 0.2-1.3 [facility] Comment on above: Order Comment: Speci men Type: BLOOD SPECIMEN Ordering Facility: [facility] Address: [address] [place] [address] Performed By: #### 2 4331-1, 48181-3 #### [facility] CLIA [id number] [address] [place] [address] [place] Calcium [Mass/Vol] 9.8 mg/dL Normal 8.5-10.2 [facility] Comment on above: Order Comment: Speci men Type: BLOOD SPECIMEN Ordering Facility: [facility] Address: [address] [place], [place] [address] Performed By: #### 2 4331-1, #### [facility] CLIA [id number] [address] [place], [place] [address] [place] Chloride [Moles/Vol] 107 mmol/L Normal 98-107 [facility] Comment on above: Order Comment: Speci men Type: BLOOD SPECIMEN Ordering Facility: [facility] Address: [address] [place] [address] Performed By: #### 2 4331-1, #### [facility] CLIA [id number] [address] [place] [address] [place] CO2 [Moles/Vol] 25 mmol/L Normal 22-30 [facility] Comment on above: Order Comment: Speci men Type: BLOOD SPECIMEN Ordering Facility: [facility] Address: [address] [place] [address] Performed By: #### 2 4331-, #### [facility] CLIA [id number] [address] [place] [address] [place] Creatinine [Mass/Vol] 0.83 mg/dL Normal 0.58-0.96 [facility] Comment on above: Order Comment: Speci men Type: BLOOD SPECIMEN Ordering Facility: [facility] Address: [address] [place] [address] Performed By: #### 2 4331-1, #### [facility] CLIA [id number] [address] [place] [address] [place] Creatinine and Glomerular filtration rate.predicted panel (S/P/Bld) 75 mL/min/1.73m??? Normal >=60 [facility] Comment on above: Order Comment: Speci men Type: BLOOD SPECIMEN Ordering Facility: [facility] Address: [address] [place] [address] Result Comment: Melissa mated Glomerular Filtration Rate (eGFR) is calculated using the 2020 CKD-EPI creatinine equation. This equation utilizes serum creatinine, sex, and age as parameters. The creatinine assay has traceable calibration to isotope dilution-mass spectrometry. Refer to KDIGO guidelines for clinical interpretation. In patients with unstable renal function, e.g. those with acute kidney injury, the eGFR may not accurately reflect actual GFR. Performed By: #### 2 433-, #### [facility] CLIA [id number] [address] [place] [address] [place] Glucose [Mass/Vol] 92 mg/dL Normal 74-99 [facility] Comment on above: Order Comment: Reanna kaplan Type: BLOOD SPECIMEN Ordering Facility: [facility] Address: [address] [place], [place] [id number] Result Comment: The [place] Diabetes Association (ADA) provides guidance for cutoff values for fasting glucose and random glucose. The ADA defines fasting as no caloric intake for at least 8 hours. Fasting plasma glucose results between 100 to 125 mg/dL indicate increased risk for diabetes (prediabetes). Fasting plasma glucose results greater than or equal to 126 mg/dL meet the criteria for diagnosis of diabetes. In the absence of unequivocal hyperglycemia, results should be confirmed by repeat testing. In a patient with classic symptoms of hyperglycemia or hyperglycemic crisis, random plasma glucose results greater than or equal to 200 mg/dL meet the criteria for diagnosis of diabetes. Reference: Standards of Medical Care in Diabetes 2016, [place] [employer] Association. Diabetes Care. 2016.39(Suppl 1). Performed By: #### 2 4331-, #### [facility] CLIA [id number] [address] [place] [address] [place] Potassium [Moles/Vol] 4.8 mmol/L Normal 3.7-5.1 [facility] Comment on above: Order Comment: Reanna kaplan Type: BLOOD SPECIMEN Ordering Facility: [facility] Address: [address] [place] [address] Performed By: #### 2 433-, #### [facility] CLIA [id number] [address] [place] [address] [place] Protein [Mass/Vol] 6.9 g/dL Normal 6.3-8.0 [facility] Comment on above: Order Comment: Speci men Type: BLOOD SPECIMEN Ordering Facility: [facility] Address: [address] [place], [place] [address] Performed By: #### 2 4331-1, 55949-7 #### [facility] CLIA [id number] [address] [place], [place] [address] [place] Sodium [Moles/Vol] 141 mmol/L Normal 136-144 [facility] Comment on above: Order Comment: Speci men Type: BLOOD SPECIMEN Ordering Facility: [facility] Address: [address] [place], [place] [address] Performed By: #### 2 4331-1, 73812-1 #### [facility] CLIA [id number] [address] [place], [place] [address] [place] Urea nitrogen [Mass/Vol] 18 mg/dL Normal 7-21 [facility] Comment on above: Order Comment: Speci men Type: BLOOD SPECIMEN Ordering Facility: [facility] Address: [address] [place], [place] [address] Performed By: #### 2 4331-1, 11197-0 #### [facility] CLIA [id number] [address] [place] [address] [place] Lipid 1996 panelon 5 Cholesterol [Mass/Vol] 210 mg/dL High <200 [facility] Comment on above: Order Comment: Speci men Type: BLOOD SPECIMEN Ordering Facility: [facility] Address: [address] [place] [address] Result Comment: <200 mg/dL, Desirable 200-239 mg/dL, Borderline high >239 mg/dL, High Performed By: #### 2 4331-1, 32533-9 #### [facility] CLIA [id number] [address] [place] [address] [place] Cholesterol in HDL [Mass/Vol] 58 mg/dL Normal >39 [facility] Comment on above: Order Comment: Speci men Type: BLOOD SPECIMEN Ordering Facility: [facility] Address: [address] [place] [address] Result Comment: 40-5 9 mg/dL, Acceptable >59 mg/dL, High: Negative risk factor for coronary heart disease <40 mg/dL, Low: Positive risk factor for coronary heart disease Performed By: #### 2 4331-1, 91717-3 #### [facility] CLIA [id number] [address] [place] [address] [place] Cholesterol in LDL [Mass/Vol] 129 mg/dL High <100 [facility] Comment on above: Order Comment: Germaniakecia kaplan Type: BLOOD SPECIMEN Ordering Facility: [facility] Address: [address] [place] [address] Result Comment: <100 mg/dL, Optimal 100-129 mg/dL, Near optimal/above optimal 130-159 mg/dL, Borderline high 160-189 mg/dL, High >189 mg/dL, Very high Secondary prevention optimal LDL Cholesterol levels are recommended to be <70 mg/dL LDL cholesterol is calculated using the Simpson-NIH equation. Performed By: #### 2 4331-1, 82344-1 #### [facility] CLIA [id number] [address] [place] [address] [place] Cholesterol in LDL/Cholesterol in HDL [Mass ratio] 2.22 {ratio} Normal <2.54 [facility] Comment on above: Order Comment: Reanna kaplan Type: BLOOD SPECIMEN Ordering Facility: [facility] Address: [address] [place] [address] Result Comment: Refe rence: 1. National Cholesterol Education Program ATP III Guideline At-A-Glance Quick Desk Reference: National Heart, Lung, and Blood [place]. National Institutes of Health. 2001: NIH Publication No. 01-3305. 2. An International Atherosclerosis Society position paper: global recommendations for the management of dyslipidemia: executive summary, Atherosclerosis. 2014: 232(2):410-413. Performed By: #### 2 4331-1, 57094-8 #### [facility] CLIA [id number] [address] [place] [address] [place] Cholesterol in VLDL [Mass/Vol] 23 mg/dL Normal <30 [facility] Comment on above: Order Comment: Speci men Type: BLOOD SPECIMEN Ordering Facility: [facility] Address: [address] [place], [place] [address] Performed By: #### 2 4331-1, 63941-8 #### [facility] CLIA [id number] [address] [place], [place] [address] [place] Cholesterol non HDL [Mass/Vol] 152 mg/dL High <130 [facility] Comment on above: Order Comment: Speci men Type: BLOOD SPECIMEN Ordering Facility: [facility] Address: [address] [place] [address] Result Comment: <130 mg/dL, Optimal 130-159 mg/dL, Near optimal/above optimal 160-189 mg/dL, Borderline high 190-219 mg/dL, High >219 mg/dL, Very high Secondary prevention optimal non HDL Cholesterol levels are recommended to be <100 mg/dL Performed By: #### 2 4331-1, #### [facility] CLIA [id number] [address] [place] [address] [place] Cholesterol.total/Galina sterol in HDL [Mass ratio] 3.62 {ratio} Normal <5.10 [facility] Comment on above: Order Comment: Speci men Type: BLOOD SPECIMEN Ordering Facility: [facility] Address: [address] [place] [address] Performed By: #### 2 4331-1, 51699-1 #### [facility] CLIA [id number] [address] [place], [place] [address] [place] FASTING TIME 12 hrs Normal [facility] Comment on above: Order Comment: Speci men Type: BLOOD SPECIMEN Ordering Facility: [facility] Address: [address] [place], [place] [address] Performed By: #### 2 4331-1, 83969-6 #### [facility] CLIA [id number] [address] [place] [address] [place] Triglyceride [Mass/Vol] 132 mg/dL Normal <[address] [facility] Comment on above: Order Comment: Speci men Type: BLOOD SPECIMEN Ordering Facility: [facility] Address: [address] [place] [address] Result Comment: <150 mg/dL, Normal 150-199 mg/dL, Borderline high 200-499 mg/dL, High >499 mg/dL, Very high Performed By: #### 2 4331-1, 48758-7 #### [facility] CLIA [id number] [address] [place] [address] [place] Cardiology Visit Reporton Cardiology Visit Report [facility] [address] [place] [address]. [address] [place] [address] OFFICE VISIT Date of Service: 10/04/24 MR#: [id number] Acct: [id number] Name: WINSTON OHARA Rep #: [id number] : 1950 Provider: Dr. Sterling Thapa MD Age/Sex: 74/F [place] [facility] [place] Status: Signed HPI HPI History of Present Illness Details: WINSTON OHARA, is a 74 F who presents to the office today for a cardiovascular visit. She is a lady with a history of hypertension, paroxysmal atrial fibrillation, single kidney. Patient presented to the hospital for palpitations in February of 2024 for atrial fibrillation with RVR, following a left total knee replacement. She was started on sotalol. She underwent a nuclear stress test due to elevated troponin. Stress test was negative for stress-induced ischemia. She also had an echocardiogram in 11/2023 demonstrated Normal left ventricle. Left ventricular systolic function is normal. The left ventricular ejection fraction is 60 %. Mild to moderate (1-2+) tricuspid valve insufficiency. Pulmonary artery systolic pressure is 50 mmHg. Patient had a 24-hour Holter monitor in March 2023 which demonstrated periods of sinus arrhythmia. She did not have any atrial fibrillation. She was in the emergency room a few days ago with atrial fibrillation flutter for which she underwent DC cardioversion. She has done well since the cardioversion. She denies any symptomatology. She is concerned about whether she will go back into atrial fibrillation again or not. 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 Accompanied by: Self Is patient in pain?: No Allergies flecainide Allergy (Verified 10/04/24 13:43) Left Bundle Branch Block/BUE tingling/leg weakness aspirin (ASA) Adverse Reaction (Verified 10/04/24 13:43) ONLY HAS ONE KIDNEY, TOLD TO AVOID cortisone Adverse Reaction (Verified 10/04/24 13:43) CHEST HOT WEIRD NSAIDS (Non-Steroidal Anti-Inflamma Adverse Reaction (Verified 10/04/24 13:43) ONLY HAS ONE KIDNEY, TOLD TO AVOID Medications ???Medication ???Instructions ???Recorded ???Confirmed ???Type fluticasone propionate 50 15.8 ml NS DAILY PRN ALLERGIES 10/04/24 History mcg/actuation nasal spray,suspension bismuth subsalicylate 262 mg 2 tablet PO Q30-60M PRN Diarrhea 0 10/08/20 10/04/24 History tablet (Pepto-Bismol) cholecalciferol (vitamin D3) 25 50 mcg PO DAILY Supplement 1 10/04/24 History mcg (1,000 unit) tablet (Vitamin D3) sertraline 25 mg tablet 25 mg PO DAILY 08/09/22 10/04/24 H istory acetaminophen 500 mg tablet 1,000 mg PO Q8 PRN 09/26/23 History biotin 1,000 mcg chewable tablet 1,000 mcg PO DAILY 09/26/23 History zolpidem 5 mg tablet 5 mg PO QHS Sleep 09/26/23 5 History furosemide 40 mg tablet 40 mg PO DAILY PRN edema #30 tabs 12/04/23 10/04/24 Rx sotalol 80 mg tablet 80 mg PO BID #180 tabs 07/15/24 Rx losartan 100 mg tablet 100 mg PO DAILY #90 tabs 10/04/24 10/04/24 Rx rivaroxaban 20 mg tablet 20 mg PO DAILY #90 tabs 10/04/24 0 10/04/24 Rx Have you fallen in the past year?: No PFSH Medical History Dyspnea Wears glasses Post-menopausal Arthritis History of diverticulitis Former smoker History of pain when walking History of edema Normal stress echocardiogram Hx of thyroid cyst Persistent atrial fibrillation (11/02/20) Paroxysmal atrial flutter (10/2017) Paroxysmal atrial fibrillation (10/2017) Essential (primary) hypertension Single kidney Insomnia Anxiety Atrial fibrillation with RVR Surgical History History of left knee replacement Hx of cystoscopy History of cardioversion (11/11/20) History of nephrectomy History of colon surgery Hx of appendectomy Family History Mother Hypertension Father Hypertension Prostate cancer Leukemia Sister vein problem DVT (deep venous thrombosis) Hypertension Social History Smoking Status: Former smoker alcohol intake: never substance use type: does not use caffeine: Yes Type: coffee Number of servings: 4 what type of physical activity do you participate in: walking frequency: daily ROS Const Const: Negative for fatigue, weakness, headache(s), daytime sleepiness or difficulty sleeping ENT ENT: Negative for headache(s), dizziness or Nos (more content not included)... Normal [facility] * * *Final Report* * * DATE OF EXAM: Sep 23 2024 1:31PM SHANNANW [id number] - [place] SCREENING W BRITTANEY / PROCEDURE REASON: Encounter for screening mammogram for breast cancer * * * * Physician Interpretation * * * * RESULT: [facility] [address] [place] [address] #[id number] - [place] SCRE[place]ING W BRITT[place]Y HISTORY: 74 year-old patient seen for screening. Patient is asymptomatic in both breasts. Patient states no personal history of breast cancer. The patient has a family history of breast cancer. COMPARISON STUDIES: The present examination has been compared to prior imaging studies dated 07/06/2021 (mammogram), 08/17/2021 (mammogram), 03/15/2022 (mammogram), 07/28/2022 (mammogram) and 08/28/2023 (mammogram). MAMMOGRAM TECHNIQUE: The study was acquired using full field digital technology and interpreted from soft copy. Digital Breast Tomosynthesis (DBT) images were obtained and used to assist in the interpretation of this examination. MAMMOGRAM FINDINGS: There are scattered areas of fibroglandular density. No suspicious masses, calcifications or other abnormalities are seen in either breast. There are no significant interval changes. IMPRESSION: There is no mammographic evidence of malignancy in either breast. Routine screening mammogram is recommended. Annual mammogram will be due in 1 year. BI-RADS Category 1: Negative RISK: Based on the Tyrer-Cuzick (TC) risk assessment model, this patient has a 8.3% lifetime risk of developing breast cancer, meaning they are at average risk for developing breast cancer. However, this is only an estimate based on available history provided on the patient's questionnaire. We encourage all patients to talk with their providers about these results, further recommendations for managing breast health, and appropriate supplemental screening options if the patient has dense breast tissue. Interpreting Radiologist: Aura Gu M.D. Electronically signed on: 09/24/2024 Road Cleaner: MARIA TERESA Transcribe Date/Time: Sep 23 2024 1:18P Dictated by: AURA GU MD This examination was interpreted and the report reviewed and electronically signed by: AURA GU MD on Sep 24 2024 8:52AM EST [id number] Normal [facility] 12 Lead EKGon 09-16-2024 12 Lead EKG [facility] [address] [place] [address] 12 Lead EKG 09/16/24 1558 MR#: [id number] Acct: [id number] Name: WINSTON OHARA Rep #: [id number] : 1950 74 From: Sterling Thapa MD Attending Dr: Status: DEP ER Ordering Dr: Audie Nieves DO Date: 09/16/24 Location: ED Sex: F C Admitted: Test Reason : REPEAT Blood Pressure : */* mmHG Vent. Rate : 69 BPM Atrial Rate : 69 BPM P-R Int : 150 ms QRS Dur : 84 ms QT Int : 396 ms P-R-T Axes : 65 50 42 degrees QTcB Int : 424 ms Sinus rhythm with marked sinus arrhythmia Nonspecific ST abnormality Abnormal ECG Confirmed by STERLING THAPA MD ([id number]), mapping editor KAEL MENDEZ ([id number]) on 09/17/2024 8:17:24 AM Referred By: Confirmed By: STERLING THAPA MD 09/17/24816 Date Sterling Thapa MD CC: Dr. Liliam Alaniz MD; Dr. Audie Nieves DO Signed Normal [facility] 12 Lead EKG [facility] [address] [place] [id number] 12 Lead EKG 09/16/24 1357 MR#: [id number] Acct: [id number] Name: WINSTON OHARAE Rep #: [id number] : 1950 74 From: Sterling Thapa MD Attending Dr: Status: DEP ER Ordering Dr: Audie Nieves DO Date: 09/16/24 Location: ED Sex: F C Admitted: Test Reason : PALP Blood Pressure : */* mmHG Vent. Rate : 128 BPM Atrial Rate : 300 BPM P-R Int : * ms QRS Dur : 82 ms QT Int : 314 ms P-R-T Axes : * 64 -14 degrees QTcB Int : 458 ms Atrial flutter with variable A-V block ST T wave abnormality, consider anterior ischemia Abnormal ECG Confirmed by STERLING THAPA MD ([id number]), mapping editor KAEL MENDEZ ([id number]) on 09/17/2024 8:17:10 AM Referred By: MANSOOR/CG Confirmed By: STERLING THAPA MD 09/17/24 0817 Date Sterling Thapa MD CC: Dr. Liliam Alaniz MD; Dr. Audie Nieves DO Signed Normal [facility] 12 Lead [place] [facility]-16-2024 12 Lead EKG performed by [facility] [address] [place] [address] 12 Lead EKG [place] [facility] 09/16/24 1315 MR#: [id number] Acct: [id number] Name: WINSTON OHARA Rep #: [id number] : 1950 74 From: Jozef Carr NP [employer]ACHINE WORKER-C Attending Dr: Jozef Carr [employer]ACHINE WORKER-C Status: DEP AMB Ordering Dr: Jozef Carr [employer] MACHINE WORKER [employer] MACHINE WORKER-C Date: 09/16/24 [place] [facility] [place]: F C Admitted: BMS/12 Lead EKG [place] [facility] ECG Report Interpretation ---Atrial flutter-fibrillation -ST depression + Nonspecific T-abnormality -Nondiagnostic -possible digitalis effect, -consider subendocardial injury/ischemia. ABNORMAL Electronically signed on 09/19/2024 at 07:35 by Sterling Thapa [employer] Version [id number] 09/19/24 0740 Date Jozef Carr NP [employer]ACH[employer] WORKER-C CC: Dr. Liliam Alaniz MD Date Dictated: 09/16/241314 Date Transcribed: 09/16/241314 Road Cleaner: CBR Signed Normal [facility] Absolute lymphocyte countOrd ered By: ED PROVIDER on 09-16-2024 Lymphocytes Auto (Unsp spec) [#/Vol] 1.19 10*3/uL 0.83-4.51 [facility] Absolute neutrophil countOrd ered By: ED PROVIDER on 09-16-2024 Neutrophils (Bld) [#/Vol] 7.2 10*3/uL 2.0-7.7 [facility] Anion gap in Serum or Plasma Ordered By: Audie Nieves on 09-16-2024 Anion gap [Moles/Vol] 12 mmol/L 5-15 [facility] Automated lymphocyte count a s percentage of total leukocytesOrdered By: ED PROVIDER on 09-16-2024 Lymphocytes/100 WBC Auto (Unsp spec) 12.8 % Low 19-41 [facility] BUN/creatinine ratioOrdered By: Audie Nieves on 09-16-2024 Urea nitrogen/Creatinine [Mass ratio] 15.5 mg/mg 10- [facility] Basic Metabolic Profile (BMP )on 09-16-2024 BUN/CRE 15.5 RATIO Normal - [facility] Comment on above: Performed By: #### L 100.0100, L500.2500, L501.4021, L300.3900 #### [facility] [address] [place], [address] Calcium [Mass/Vol] 10.5 mg/dL Normal 7.6-11.0 [facility] Comment on above: Performed By: #### L 100.0100, L500.2500, L501.4021, L300.3900 #### [facility] [address] [place], [address] Chloride [Moles/Vol] 104 mmol/L Normal 98-108 [facility] Comment on above: Performed By: #### L 100.0100, L500.2500, L501.4021, L300.3900 #### [facility] [address] [place], [address] CO2 [Moles/Vol] 26.3 mmol/L Normal 21.0-32.0 [facility] Comment on above: Performed By: #### L 100.0100, L500.2500, L501.4021, L300.3900 #### [facility] [address] [place], [address] Creatinine [Mass/Vol] 0.86 mg/dL Normal 0.70-1.20 [facility] Comment on above: Performed By: #### L 100.0100, L500.2500, L501.4021, L300.3900 #### [facility] [address] [place], [address] ECRCL 56.04 ml/min Normal 50-250 [facility] Comment on above: Performed By: #### L 100.0100, L500.2500, L501.4021, L300.3900 #### [facility] [address] [place], [address] GAP 12 Normal 5-15 [facility] Comment on above: Performed By: #### L 100.0100, L500.2500, L501.4021, L300.3900 #### [facility] [address] [place], [address] GFR/1.73 sq M.predicted among non-blacks MDRD (S/P/Bld) [Vol rate/Area] 72 mL/min/{1.73_m2} Normal >60 [facility] Comment on above: Result Comment: mL/m in/1.73m2 CKD-EPI Creatinine Equation (2020) Performed By: #### L 100.0100, L500.2500, L501.4021, L300.3900 #### [facility] [address] [place], [address] Glucose [Mass/Vol] 106 mg/dL High 70-99 [facility] Comment on above: Performed By: #### L 100.0100, L500.2500, L501.4021, L300.3900 #### [facility] [address] [place], [address] Potassium [Moles/Vol] 4.1 mmol/L Normal 3.3-5.1 [facility] Comment on above: Performed By: #### L 100.0100, L500.2500, L501.4021, L300.3900 #### [facility] [address] [place], [address] Sodium [Moles/Vol] 142 mmol/L Normal 133-145 [facility] Comment on above: Performed By: #### L 100.0100, L500.2500, L501.4021, L300.3900 #### [facility] [address] [place], [address] Urea nitrogen [Mass/Vol] 13 mg/dL Normal 4-19 [facility] Comment on above: Performed By: #### L 100.0100, L500.2500, L501.4021, L300.3900 #### [facility] [address] [place], [address] Basophil percentageOrdered B y: ED PROVIDER on 09-16-2024 Basophils/100 WBC (Bld) 0.6 % 0-1 [facility] CBC W/Diff, Automatedon 08-31 Absolute Lymph 1.19 X10 3/uL Normal 0.83-4.51 [facility] Comment on above: Performed By: #### L 100.0100, L500.2500, L501.4021, L300.3900 #### [facility] [address] [place], [address] Absolute Neut 7.2 X10 3/uL Normal 2.0-7.7 [facility] Comment on above: Performed By: #### L 100.0100, L500.2500, L501.4021, L300.3900 #### [facility] [address] [place], [address] Basophils/100 WBC (Bld) 0.6 % Normal 0-1 [facility] Comment on above: Performed By: #### L 100.0100, L500.2500, L501.4021, L300.3900 #### [facility] [address] [place], [address] Eosinophils/100 WBC (Bld) 1.6 % Normal 0-5 [facility] Comment on above: Performed By: #### L 100.0100, L500.2500, L501.4021, L300.3900 #### [facility] [address] [place], [address] Erythrocyte distribution width (RBC) [Ratio] 12.9 % Normal 11.6-14.6 [facility] Comment on above: Performed By: #### L 100.0100, L500.2500, L501.4021, L300.3900 #### [facility] [address] [place], [address] Hematocrit (Bld) [Volume fraction] 46.3 % Normal 37-47 [facility] Comment on above: Performed By: #### L 100.0100, L500.2500, L501.4021, L300.3900 #### [facility] [address] [place], [address] Hemoglobin (Bld) [Mass/Vol] 15.3 g/dL High 12.0-15.0 [facility] Comment on above: Performed By: #### L 100.0100, L500.2500, L501.4021, L300.3900 #### [facility] [address] [place], [address] IG% 0.400 Normal 0.0-0.9 [facility] Comment on above: Result Comment: IG% - Immature Granulocytes (promyelocytes, myelocytes and metamyelocytes) > 1% indicates that a LEFT SHIFT is Present. Performed By: #### L 100.0100, L500.2500, L501.4021, L300.3900 #### [facility] [address] [place], [address] Lymphocytes/100 WBC (Bld) 12.8 % Low 19-41 [facility] Comment on above: Performed By: #### L 100.0100, L500.2500, L501.4021, L300.3900 #### [facility] [address] [place], [address] MCH (RBC) [Entitic mass] 30.2 pg Normal 27.0-32.0 [facility] Comment on above: Performed By: #### L 100.0100, L500.2500, L501.4021, L300.3900 #### [facility] [address] [place], [address] MCHC (RBC) [Mass/Vol] 33.0 g/dL Normal 32-36 [facility] Comment on above: Performed By: #### L 100.0100, L500.2500, L501.4021, L300.3900 #### [facility] [address] [place], [address] MCV (RBC) [Entitic vol] 91.3 fL Normal 81-[address] [facility] Comment on above: Performed By: #### L 100.0100, L500.2500, L501.4021, L300.3900 #### [facility] [address] [place], [address] Monocytes/100 WBC (Bld) 7.0 % Normal 0-10 [facility] Comment on above: Performed By: #### L 100.0100, L500.2500, L501.4021, L300.3900 #### [facility] [address] [place], [address] Neutrophils/100 WBC (Bld) 77.6 % High 47-70 [facility] Comment on above: Performed By: #### L 100.0100, L500.2500, L501.4021, L300.3900 #### [facility] [address] [place], [address] Nucleated RBC (Bld) [#/Vol] 0 10*3/uL Normal 0-5 [facility] Comment on above: Performed By: #### L 100.0100, L500.2500, L501.4021, L300.3900 #### [facility] [address] [place], [address] Platelet mean volume (Bld) [Entitic vol] 9.5 fL Normal 6.2-12.0 [facility] Comment on above: Performed By: #### L 100.0100, L500.2500, L501.4021, L300.3900 #### [facility] [address] [place], [address] Platelets (Bld) [#/Vol] 297 10*3/uL Normal 150-450 [facility] Comment on above: Performed By: #### L 100.0100, L500.2500, L501.4021, L300.3900 #### [facility] [address] [place], [address] RBC (Bld) [#/Vol] 5.07 10*6/uL Normal 4.2-5.4 [facility] Comment on above: Performed By: #### L 100.0100, L500.2500, L501.4021, L300.3900 #### [facility] [address] [place], [address] RDW SD 42.9 fl Normal 35.1-43.9 [facility] Comment on above: Performed By: #### L 100.0100, L500.2500, L501.4021, L300.3900 #### [facility] [address] [place], [address] WBC (Bld) [#/Vol] 9.3 10*3/uL Normal 4.4-11.0 [facility] Comment on above: Performed By: #### L 100.0100, L500.2500, L501.4021, L300.3900 #### [facility] [address] [place], [address] Carbon dioxide, total [Moles /volume] in Central venous bloodOrdered By: Audie Nieves on 09-16-2024 CO2 [Moles/Vol] 26.3 mmol/L 21.0-32.0 [facility] Chest 1 View (Portable)on Chest 1 View (Portable) [facility] Imaging Services [address] [place] [address] Chest 1 View (Portable) MR#: [id number] Acct: [id number] Name: WINSTON OHARA Rep #: [id number] : 1950 F 74 From: Jozef Sevilla PCP: Dr. Liliam Alaniz MD Status: REG ER Study: Chest 1 View (Portable) Date of Exam: 09/16/24 Exam# [id number] Ordering Dr: Audie Nieves DO PROCEDURE: CHEST 1 VIEW (PORTABLE) 09/16/2024 REASON FOR EXAM: CHEST PAIN TECHNIQUE: Frontal view of the chest. COMPARISON: 06 February 2021 FINDINGS: The heart size is normal. The lungs are clear. Demineralization of the bones. Stable examination when compared to prior. RAD/Chest 1 View (Portable) IMPRESSION: No measurable change. Reading Location: [id number] CC: Dr. Liliam Alaniz MD; Dr. 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 Emergency Department Summary on 09-16-2024 Emergency Department Summary [facility] Medical Records Department [address] [place] [address] Emergency Department Summary 09/16/24 MR#: [id number] Acct: [id number] Name: WINSTON OHARA Rep #: [id number] : 1950 74 From: Audie Hoskins PCP: Dr. Liliam Alaniz MD Status:DEP ER Location: ED [facility] History of Present Illness Chief Complaint: Palpitations Informant: patient and spouse/S.O. Narrative Narrative: Recurrent palpitations 11:30 PM. Lightheaded symptoms of dyspnea. No chest pains. History of atrial fibrillation since [address] Thapa. Ablation x 2 last time in 2022. Daily Xarelto and sotalol twice a day with no missed doses last dose this morning. Recovering from COVID symptoms 4 weeks ago currently mild productive cough left. No fevers. No vomiting or diarrhea. Since ablation she states she has a episode that she felt A-fib rhythm for 2 hours none since then. She was told to take a dose of Lasix this morning. She went to the office and was told to go to the ER for treatment. Last meal 11:30 AM nearly 4 hours ago. No allergies to sedation. No alcohol use history. Prior similar symptoms: Yes PFSH PFSH Medical History Dyspnea Wears glasses Post-menopausal Arthritis History of diverticulitis Former smoker History of pain when walking History of edema Normal stress echocardiogram Hx of thyroid cyst Persistent atrial fibrillation (11/02/20) Paroxysmal atrial flutter (10/2017) Paroxysmal atrial fibrillation (10/2017) Essential (primary) hypertension Single kidney Insomnia Anxiety Atrial fibrillation with RVR Home Medications ???Medication ???Instructions ???Recorded ???Last Taken ???Type fluticasone propionate 50 15.8 ml NS DAILY PRN ALLERGIES 02/02/21 History mcg/actuation nasal spray,suspension bismuth subsalicylate 262 mg 2 tablet PO Q30-60M PRN Diarrhea 0 10/08/20 02/02/21 History tablet (Pepto-Bismol) cholecalciferol (vitamin D3) 25 50 mcg PO DAILY Supplement 1 02/05/21 17:00 History mcg (1,000 unit) tablet (Vitamin D3) sertraline 25 mg tablet 25 mg PO DAILY 08/09/22 Unknown Hi story acetaminophen 500 mg tablet 1,000 mg PO Q8 PRN 09/26/23 Unknow n History biotin 1,000 mcg chewable tablet 1,000 mcg PO DAILY 09/26/23 Unknow n History losartan 100 mg tablet 100 mg PO DAILY #90 tabs 09/26/23 Unknown Rx zolpidem 5 mg tablet 5 mg PO QHS Sleep 09/26/23 Unknown History rivaroxaban 20 mg tablet 20 mg PO DAILY #90 tabs 10/25/23 U nknown Rx furosemide 40 mg tablet 40 mg PO DAILY PRN edema #30 tabs 12/04/23 Unknown Rx sotalol 80 mg tablet 80 mg PO BID #180 tabs 07/15/24 Un known Rx Allergy/AdvReac Type Severity Reaction Status Date / Time flecainide Allergy Left Verified 04/30/24 11:20 Bundle Branch Block/BUE tingling/leg weakness aspirin (ASA) AdvReac ONLY HAS Verified 04/30/24 11:20 ONE KIDNEY, TOLD TO AVOID cortisone AdvReac CHEST HOT Verified 04/30/24 11:20 WEIRD NSAIDS (Non-Steroidal AdvReac ONLY HAS Verified 04/30/24 11:20 Anti-Inflamma ONE KIDNEY, TOLD TO AVOID Family History Mother Hypertension Father Hypertension Prostate cancer Leukemia Sister vein problem DVT (deep venous thrombosis) Hypertension Surgical History History of left knee replacement Hx of cystoscopy History of cardioversion (11/11/20) History of nephrectomy History of colon surgery Hx of appendectomy Social History Smoking Status: Former smoker alcohol intake: never substance use type: does not use caffeine: Yes Type: coffee Number of servings: 4 what type of physical activity do you participate in: walking frequency: daily ROS ROS ED Constitutional Constitutional ED: Denies chills, fever(s) or sweats ENT ENT ED: Denies sore throat Cardiovascular Cardiovascular: Reports palpitations; Denies chest pain, leg edema or racing heartbeat Respiratory/Chest Respiratory/Chest: Reports cough and dyspnea; Denies dyspnea on exertion Gastrointestinal Gastrointestinal: Denies abdominal pain, diarrhea, nausea or vomiting Genitourinary Genitourinary ED: Denies dysuria, hematuria or urinary frequency Musculoskeletal Musculoskeletal: Denies back pain, extremity pain or neck pain Integumentary Denies rash or wounds Neurologic Neurologic: Denies headache(s), paresthesias or weakness EXAM Physical Exam Const Vital Signs: 09/16/24 13:51 09/16/24 14:51 09/16/24 14:55 Temperature 97.4 F L Temperature Source Temporal Pulse Rate 136 H 131 H Pulse Rate [1 (Initial Baseline)] Pulse Rate [2] Res (more content not included)... Normal [facility] Eosinophil percentageOrdered By: ED PROVIDER on 09-16-2024 Eosinophils/100 WBC (Bld) 1.6 % 0-5 [facility] Erythrocyte distribution wid th ratioOrdered By: ED PROVIDER on 09-16-2024 Erythrocyte distribution width (RBC) [Ratio] 12.9 % 11.6-14.6 [facility] Erythrocyte distribution wid th standard deviationOrdered By: ED PROVIDER on 09-16-2024 Erythrocyte distribution width (RBC) [Entitic vol] 42.9 fL 35.1-43.9 [facility] Erythrocyte distribution width (RBC) [Ratio] 42.9 fl 35.1-43.9 [facility] Estimation of creatinine carter aranceOrdered By: Audie Nieves on 09-16-2024 Estimated Creatinine Clearance Calc 56.04 ml/min 50-250 [facility] GFR/1.73 sq M.predicted ahsan g non-blacks MDRD (S/P/Bld) [Vol rate/Area]Ordered By: Audie Nieves on 09-16-2024 Estimated GFR (MDRD) Non-Af Amer 72 >60 [facility] Comment on above: mL/min/1.73m2 CKD-EP I Creatinine Equation (2020) Glomerular filtration rate ( GFR) estimation/1.73 sq m using serum, plasma, or whole bOrdered By: Audie Nieves on 09-16-2024 GFR/1.73 sq M.predicted among non-blacks MDRD (S/P/Bld) [Vol rate/Area] 72 mL/min/{1.73_m2} >60 [facility] Comment on above: mL/min/1.73m2 CKD-EP I Creatinine Equation (2020) Hematocrit Auto (Bld) [Volum e fraction]Ordered By: ED PROVIDER on 09-16-2024 Hematocrit (Bld) [Volume fraction] 46.3 % 37-47 [facility] Hemoglobin measurementOrdere d By: ED PROVIDER on 09-16-2024 Hemoglobin (Bld) [Mass/Vol] 15.3 g/dL High 12.0-15.0 [facility] Immature granulocytes/100 WB C Auto (Bld)Ordered By: ED PROVIDER on 09-16-2024 Immature granulocytes/100 WBC (Bld) 0.400 % 0.0-0.9 [facility] Comment on above: IG% - Immature Granu locytes (promyelocytes, myelocytes and metamyelocytes) > 1% indicates that a LEFT SHIFT is Present. International normalized rat io (INR) calculationOrdered By: Audie Nieves on 09-16-2024 INR Coag (Bld) [Relative time] 1.5 {INR} [facility] L499.0042on 09-16-2024 Trop T High Sen Normal <=14 [facility] Comment on above: Result Comment: PT D EP FROM ED Performed By: #### L 499.0042 #### [facility] [address] [place], [address] L499.0043on 09-16-2024 Trop T High Sen Normal <=14 [facility] Comment on above: Result Comment: Canc elled via OM: Order cancelled - Patient discharged Performed By: #### L 499.0043 #### [facility] [address] [place], [address] L501.4021on 09-16-2024 Trop T High Sen 13 ng/L Normal <=14 [facility] Comment on above: Performed By: #### L 100.0100, L500.2500, L501.4021, L300.3900 #### [facility] [address] [place], [address] Lymphocytes Auto (Unsp spec) [#/Vol]Ordered By: ED PROVIDER on 09-16-2024 Lymphocytes (Bld) [#/Vol] 1.19 10*3/uL 0.83-4.51 [facility] Lymphocytes/100 WBC Auto (Un sp spec)Ordered By: ED PROVIDER on 09-16-2024 Lymphocytes/100 WBC (Bld) 12.8 % Low 19-41 [facility] MCV (mean corpuscular volume ) determinationOrdered By: ED PROVIDER on 09-16-2024 MCV (RBC) [Entitic vol] 91.3 fL 81-99 [facility] Mean corpuscular hemoglobin (MCH) determinationOrdered By: ED PROVIDER on 09-16-2024 MCH (RBC) [Entitic mass] 30.2 pg 27.0-32.0 [facility] Mean corpuscular hemoglobin concentration (MCHC) determinationOrdered By: ED PROVIDER on 09-16-2024 MCHC (RBC) [Mass/Vol] 33.0 g/dL 32-36 [facility] Mean platelet volume determi nationOrdered By: ED PROVIDER on 09-16-2024 Platelet mean volume (Bld) [Entitic vol] 9.5 fL 6.2-12.0 [facility] Monocyte percentageOrdered B y: ED PROVIDER on 09-16-2024 Monocytes/100 WBC (Bld) 7.0 % 0-10 [facility] Neutrophil percentageOrdered By: ED PROVIDER on 09-16-2024 Neutrophils/100 WBC (Bld) 77.6 % High 47-70 [facility] No Panel InformationOrdered By: Audie Nieves on 09-16-2024 Troponin T High Sensitivity 13 ng/L <14 [facility] Nucleated red blood cell per centageOrdered By: ED PROVIDER on 09-16-2024 Nucleated RBC/100 WBC (Bld) [Ratio] 0 % 0-5 [facility] Platelet countOrdered By: ED PROVIDER on 09-16-2024 Platelets (Bld) [#/Vol] 297 10*3/uL 150-450 [facility] Potassium (Unsp spec) [Mass/ Vol]Ordered By: Audie Nieves on 09-16-2024 Potassium [Moles/Vol] 4.1 mmol/L 3.3-5.1 [facility] Potassium measurement (mass/ volume)Ordered By: Audie Nieves on 09-16-2024 Potassium (Unsp spec) [Mass/Vol] 4.1 mmol/L 3.3-5.1 [facility] Prothrombin Time w/INRon INR Coag (PPP) [Relative time] 1.5 {INR} Normal [facility] Comment on above: Performed By: #### L 100.0100, L500.2500, L501.4021, L300.3900 #### [facility] [address] [place], [address] PT Coag (PPP) [Time] 18.8 s High 11.7-14.9 [facility] Comment on above: Performed By: #### L 100.0100, L500.2500, L501.4021, L300.3900 #### [facility] [address] [place], [address] Prothrombin timeOrdered By: Audie Nieves on 09-16-2024 PT Coag (PPP) [Time] 18.8 s High 11.7-14.9 [facility] RBC Auto (Bld) [#/Vol]Ordere d By: ED PROVIDER on 09-16-2024 RBC (Bld) [#/Vol] 5.07 10*6/uL 4.2-5.4 [facility] Serum creatinine measurement (mass/volume)Ordered By: Audie Nieves on 09-16-2024 Creatinine [Mass/Vol] 0.86 mg/dL 0.70-1.20 [facility] Serum glucose measurement (m ass/volume)Ordered By: Audie Nieves on 09-16-2024 Glucose [Mass/Vol] 106 mg/dL High 70-99 [facility] Serum or plasma calcium hay urement (mass/volume)Ordered By: Audie Nieves on 09-16-2024 Calcium [Mass/Vol] 10.5 mg/dL 7.6-11.0 [facility] Serum or plasma urea nitroge n measurement (mass/volume)Ordered By: Audie Nieves on 09-16-2024 Urea nitrogen [Mass/Vol] 13 mg/dL 4-19 [facility] Sodium levelOrdered By: Audie Nieves on 09-16-2024 Sodium [Moles/Vol] 142 mmol/L 133-145 [facility] White blood cell (WBC) count Ordered By: ED PROVIDER on 09-16-2024 WBC (Bld) [#/Vol] 9.3 10*3/uL 4.4-11.0 [facility] CNOVon 08-29-2024 CNOV Office Visit (UCWSTR ) WINSTON OHARA ([id number]) 1950 F NFR Date Time Provider Department 08/29/24 7:30 PM REJI THOMASON [facility] During your visit today, we recorded the following information about you: Temperature Pulse Respiration Blood pressure 101.6 degrees 63/minute 20/minute 141/71 Reji Thomason APRN.PRECISION DEVICES INSPECTOR/TESTER 08/29/2024 8:09 PM Signed Molnupiravir Eligibility and Patient Discussion [facility] Formulary Restriction Criteria: Adult outpatients 18 years and older with ALL of the following: [x] Patient has symptoms for 5 days or less [x] Not requiring hospitalization at any time for management of COVID-19 [x] Not requiring supplemental oxygen or a change in baseline supplemental oxygen [x] Not utilized for pre-exposure or post-exposure prophylaxis for prevention of COVID-19 [x] Patient is not or lactating [x] Meeting at least one of the criteria for high risk of progression to severe COVID-19: [x] Age over 65 years [] Cancer [] Chronic kidney disease [] Chronic liver disease [] Chronic lung diseases, including cystic fibrosis [] Dementia or other neurological conditions [] Diabetes (type 1 or type 2) [] Disabilities, including Down syndrome and neurodevelopmental disorders [] Heart conditions [] HIV infection [] Immunocompromised state [] Mental health conditions [] Medical related technological dependence (tracheostomy, gastrostomy, or positive pressure ventilation (not related to COVID) [] Overweight and obesity (BMI greater or equal to 25 for adults) [] Physical inactivity [] Sickle cell disease or thalassemia [] Smoking, current or former [] Solid organ or blood stem cell transplant [] Stroke or cerebrovascular disease [] Substance use disorders [] Tuberculosis [] People from racial and ethnic minority groups Criteria above are met: Yes Date of Symptom Onset: 08/28/24 / status reviewed: Females: [x] Patient is not currently and there is no possibility the patient could be (select one of the following): [] test does not need to be confirmed in patients who have undergone permanent sterilization, are currently using an intrauterine system or contraceptive implant, or in whom is not possible. [] Patients not meeting conditions above: assess whether the patient is based on the first day of the last menstrual period in individuals who have regular menstrual cycles, is using reliable method of contraception correctly and consistently or have had a negative test [] A test is recommended if the individual has irregular menstrual cycles, is unsure of the first day of the last menstrual period or is not using effective contraception correctly and consistently [x] Patient is not currently . is not recommended during treatment and for four days after final dose of molnupiravir. [x] Females have been advised to use a reliable method of contraception correctly and consistently for the duration of treatment and for four days after the last dose of molnupiravir Males: [] Sexually active male with partner(s) of childbearing potential has been advised to use a reliable method of contraception correctly and consistently for intercourse for the duration of treatment and for three months after the last dose of molnupiravir I have discussed the use of the investigational therapeutic, molnupiravir, for the treatment of mild to moderate COVID-19 and its use under Emergency Use Authorization with the patient. The patient was informed that molnupiravir is not an FDA approved drug and that it is authorized for use under this Emergency Use Authorization. The patient was also informed of the significant known benefits and potential risks of molnupiravir, and the extent to which such potential risks and benefits are unknown. The patient was informed that there is mandatory reporting of all medication errors and serious adverse events potentially related to molnupiravir treatment within 7 calendar days from the onset of the event and that events up to 28 days after completion of therapy need to be reported. The discussion included alternatives to receiving molnupiravir, including clinical trials, and potential the risks and benefits of those alternatives. The patient was provided electronically with the Fact Sheet for Patients, Parents and Caregivers. The patient was also instructed that in addition to the treatment with molnupiravir, he/she should continue to self-isolate and use infection control measures (e.g., wear mask, isolate, social distance, avoid sharing personal items, clean and disinfect high touch surfaces, and frequent handwashing) according to CDC guidelines. The patient stated understanding and gave verbal consent to proceeding (more content not included)... Normal [facility] CNPNon 08-29-2024 CNPN Telephone (INTMWS) WINSTON OHARA ([id number]) 1950 F NFR Date Time Provider Department 08/29/24 LILIAM ALANIZ INTMWS During your visit today, we recorded the following information about you: Juliano Jenkins, DAE 08/29/2024 11:55 AM Signed Pt reports she and her both tested positive on a home covid test yesterday. Pt's s/s started on : fever 100.2, cough, runny nose, diarrhea, stomach ache. Pt reports her is having the same symptoms, and his started on Monday. Reports they would like to speak with a provider to ask if they should take the antiviral- not the paxlovid, because they both only have 1 kidney, and had a kidney transplant. Reports in 2019 they both had covid and took the antiviral pill that was not paxlovid. Pt unable to do a VV appt with pcp office. Aware would need to start antiviral within 5 days of symptoms starting. Pt states they will go to for evaluation. States they are both able to wear masks and will wear them. Chica Sapp, DAE 08/29/2024 6:45 PM Signed Pt calling in as she states she was called regarding an appt with Dr. Miranda. Pt had been scheduled for a VV with Dr. Miranda at 620 pm. Pt states she was unaware of the appt as [facility] Also she states she cannot do VV. She and her will come in to be seen in [facility] this evening. Allergies As of Date: 08/29/2024 Noted Allergy Reaction FLAGYL (METRONIDAZOLE) 10/28/2019 8 - GI Upset FLECAINIDE 12/15/2020 14 - Other: See Comments Comments: Caused irregular EKG SOB Date Reviewed: 06/14/2024 Reviewed by: Soila Hill LPN - Fully Assessed Reason for Visit: Covid Positive [4049] Prescriptions as of 08/29/2024 - zolpidem (AMBIEN) 5 mg tablet Take 1 tablet by mouth at bedtime as needed for sedation for up to 180 days. Patient should start on June 19, 2024. - cholecalciferol, vitamin D3, 62.5 mcg (2,500 unit) chew Take 2 capsules by mouth daily after dinner. (actually chewable tablets) - sertraline (ZOLOFT) 25 mg tablet Take 1 tablet by mouth once daily. - losartan (COZAAR) 100 mg tablet Take 100 mg by mouth once daily. - furosemide (LASIX) 40 mg tablet Take 40 mg by mouth once daily as needed. Take prn FOR EDEMA - mupirocin (BACTROBAN) 2 % ointment Apply to affected area three times daily. Use for 5 to 10 days for skin infection - XARELTO 20 mg tablet Take 1 tablet by mouth once daily. (cardiology filling) - sotalol (BETAPACE) 80 mg tablet Take 80 mg by mouth twice daily. - fluticasone (FLONASE) 50 mcg/actuation nasal spray Use 2 Sprays in each nostril once daily. - acetaminophen (TYLENOL) 500 mg tablet EVERY 6 HOURS NEEDED - bismuth subsalicylate(PEPTO-BIS MOL 262 MG TAB) Takes 2 pills daily as needed for IBS flare up Meds Comments as of 08/01/2007: All medications have been reviewed today/August 01, 2007 Jessica Velásquez Lpn Problem List As Of Date 08/29/2024 Noted Resolved Family history of malignant neoplasm of breast * GENERALIZED ANXIETY DIS [F41.1] Irritable bowel syndrome [K58.9] 08/08/2012 Depressive disorder, not elsewhere classified [* 04/04/2017 Insomnia, unspecified [G47.00] 08/08/2012 Other acne [L70.8] 05/03/2005 08/08/2012 Diarrhea [R19.7] 05/01/2006 08/08/2012 Benign neoplasm of colon [D12.6] 05/01/2006 08/08/2012 Palpitations [R00.2] 10/05/2006 08/08/2012 Rosacea [L71.9] 07/16/2008 08/08/2012 Post-menopausal bleeding [N95.0] 09/30/2009 08/08/2012 Ganglion Cyst, arch of left foot [M67.40] 01/20/2010 08/08/2012 History of colonic polyps [Z86.0100] 02/10/2010 External hemorrhoids without mention of complic*04/26/2010 08/08/2012 PFO (patent foramen ovale) [Q21.12] 11/28/2012 Kidney donor [Z52.4] 01/01/2013 Thyroid cyst [E04.1] 09/24/2014 Ex-smoker [Z87.891] 01/05/2015 Palpitations [R00.2] 10/05/2006 History of kidney donation [Z90.5] 02/12/2016 Paroxysmal atrial fibrillation (HCC) [I48.0] Rash and nonspecific skin eruption [R21] 04/13/2018 Primary osteoarthritis of both knees [M17.0] 10/08/2018 Essential hypertension [I10] 01/17/2021 Vitamin D deficiency [E55.9] 01/17/2021 Encounter Status:Closed by CHICA SAPP on 08/29/24 [facility] 06-14-2024 CNOV Office Visit (INTMWS ) WINSTON OHARA ([id number]) 1950 F NFR Date Time Provider Department 06/14/24 2:20 PM LILIAM ALANIZ INTMWS During your visit today, we recorded the following information about you: Pulse Respiration Blood pressure Weight 64/minute 12/minute 134/68 69 kg Height 1.626 m Liliam Alaniz MD 06/14/2024 4:09 PM Signed This note was created using [employer]. Subjective Winston Ohara is a 74 year old female. HISTORY Winston Ohara is a 74 year old lady here for Medicare Annual Wellness Visit and yearly exam and follow up appointment. Winston Ohara is a 74-year-old female with a history of HTN and A-fib, presenting for a Medicare wellness visit and fall risk assessment. Winston reports concerns about her blood pressure readings at home, which have been consistently in the 140s. She brought her blood pressure monitor to the visit for comparison. In the office, her blood pressure was recorded at 130/70, while her monitor showed 146/79. She notes a discrepancy of about 10-15 points between her home readings and office readings, which have ranged from 110s to 130s. She reports no symptoms when her blood pressure is in the 140s but does mention feeling her heart beating and a jittery sensation in the evenings, which she is unsure if it is related to her blood pressure. She also reports an episode of A-fib about 3 weeks ago that woke her up at 0430. She describes her heart as beating weird but denies other symptoms. She took her sotalol early at 0630, and by 0830, she had reverted to normal rhythm. She is currently on 100 mg of losartan daily and sotalol. She also has Lasix prescribed as needed for swelling but reports she does not take it. She notes occasional leg swelling but not as severe as previously. She expresses concern that losartan may not be effectively managing her blood pressure. She reports a history of loose stools occurring approximately 40 minutes after taking sotalol, describing it as diarrhea but not watery. She manages this with Pepto or Imodium if she needs to go out in the morning. She denies constipation. She is also on sertraline 25 mg, which she reports is effective, and zolpidem, which she takes to help with sleep. She recently increased her vitamin D intake from 2,000 units to 5,000 units daily. She has discontinued biotin as she did not find it effective for hair thinning and does not take any general vitamins. She reports engaging in regular exercise, including using a rower for about 15 minutes a day and going up and down stairs multiple times a day in her two-story house. She denies alcohol consumption and follows safety precautions at home to prevent falls. She has advanced directives on file and follows up with cardiology, with her next appointment scheduled for August. She also follows up with an eye doctor, with her last visit in April. 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 Thapa Peptic ulcer, unspecified site, unspecified as acute or chronic, without mention of hemorrhage, perforation, or obstruction Personal history of colonic polyps Thyroid cyst 09/24/2014 Current Outpatient Medications Medication Sig [START ON 06/19/2024] zolpidem (AMBIEN) 5 mg tablet Take 1 tablet by mouth at bedtime as needed for sedation for up to 180 days. Patient should start on June 19, 2024. cholecalciferol, vitamin D3, 62.5 mcg (2,500 unit) chew Take 2 capsules by mouth daily after dinner. (actually chewable tablets) sertraline (ZOLOFT) 25 mg tablet Take 1 tablet by mouth once daily. losartan (COZAAR) 100 mg tablet Take 100 mg by mouth once daily. furosemide (LASIX) 40 mg tablet Take 40 mg by mouth once daily as needed. Take prn FOR EDEMA mupirocin (BACTROBAN) 2 % ointment Apply to affected area three times daily. Use for 5 to 10 days for skin infection XARELTO 20 mg tablet Take 1 tablet by mouth once daily. (cardiology filling) sotalol (BETAPACE) 80 mg tablet Take 80 mg by mouth twice daily. fluticasone (FLONASE) 50 mcg/actuation nasal spray Use 2 Sprays in each nostril once daily. (Patient taking differently: Use 2 Spra (more content not included)... Normal [facility] 25(OH)D3 [facility] 25-hydroxyvitamin D3 [Mass/Vol] 27.4 ng/mL Low 31.0-80.0 [facility] Comment on above: Order Comment: Speci eusebio Type: BLOOD SPECIMEN Ordering Facility: [facility] Address: [address] [place] [address] Result Comment: Clas sification of 25 [place] Vitamin D status: Deficiency/Insufficiency: < or = 30 ng/ml. Sufficiency/Optimal Levels: 31-80 ng/mL Toxicity: > 100 ng/mL. Test performed by chemiluminescent immunoassay. Performed By: #### 1 989-3 #### [facility] CLIA [id number] [address] [place] [address] [place] CBC panel Auto (Bld)on 06-10 Erythrocyte distribution width (RBC) [Ratio] 13.2 % Normal 11.5-15.0 [facility] Comment on above: Order Comment: Reanna kaplan Type: BLOOD SPECIMEN Ordering Facility: [facility] Address: [address] [place] [address] Performed By: #### 2 4331-1, 57884-2 #### [facility] CLIA [id number] [address] [place] [address] [place] Hematocrit (Bld) [Volume fraction] 42.8 % Normal 36.0-46.0 [facility] Comment on above: Order Comment: Reanna kaplan Type: BLOOD SPECIMEN Ordering Facility: [facility] Address: [address] [place] [address] Performed By: #### 2 4331-1, 21997-2 #### [facility] CLIA [id number] [address] [place], [place] [id number] [place] Hemoglobin (Bld) [Mass/Vol] 13.5 g/dL Normal 11.5-15.5 [facility] Comment on above: Order Comment: Speci men Type: BLOOD SPECIMEN Ordering Facility: [facility] Address: [address] [place] [address] Performed By: #### 2 4331-1, 24969-1 #### [facility] CLIA [id number] [address] [place] [address] [place] MCH (RBC) [Entitic mass] 30.3 pg Normal 26.0-34.0 [facility] Comment on above: Order Comment: Speci men Type: BLOOD SPECIMEN Ordering Facility: [facility] Address: [address] [place] [address] Performed By: #### 2 4331-1, 84690-0 #### [facility] CLIA [id number] [address] [place] [address] [place] MCHC (RBC) [Mass/Vol] 31.5 g/dL Normal 30.5-36.0 [facility] Comment on above: Order Comment: Speci men Type: BLOOD SPECIMEN Ordering Facility: [facility] Address: [address] [place] [address] Performed By: #### 2 4331-1, 64358-4 #### [facility] CLIA [id number] [address] [place] [address] [place] MCV (RBC) [Entitic vol] 96.0 fL Normal 80.0-100.[address] [facility] Comment on above: Order Comment: Speci men Type: BLOOD SPECIMEN Ordering Facility: [facility] Address: [address] [place] [address] Performed By: #### 2 4331-1, 11778-3 #### [facility] CLIA [id number] [address] [place] [address] [place] Nucleated RBC (Bld) [#/Vol] 10*3/uL Normal <0.01 [facility] Comment on above: Order Comment: Speci men Type: BLOOD SPECIMEN Ordering Facility: [facility] Address: [address] [place] [address] Performed By: #### 2 4331-1, 16149-1 #### [facility] CLIA [id number] [address] [place] [address] [place] Platelet mean volume (Bld) [Entitic vol] 10.2 fL Normal 9.0-12.7 [facility] Comment on above: Order Comment: Speci men Type: BLOOD SPECIMEN Ordering Facility: [facility] Address: [address] [place] [address] Performed By: #### 2 4331-1, 46799-1 #### [facility] CLIA [id number] [address] [place] [address] [place] Platelets (Bld) [#/Vol] 203 10*3/uL Normal 150-400 [facility] Comment on above: Order Comment: Speci men Type: BLOOD SPECIMEN Ordering Facility: [facility] Address: [address] [place] [address] Performed By: #### 2 4331-1, 24910-5 #### [facility] CLIA [id number] [address] [place] [address] [place] RBC (Bld) [#/Vol] 4.46 10*6/uL Normal 3.90-5.20 [facility] Comment on above: Order Comment: Speci men Type: BLOOD SPECIMEN Ordering Facility: [facility] Address: [address] [place] [address] Performed By: #### 2 4331-1, 12181-1 #### [facility] CLIA [id number] [address] [place] [address] [place] WBC (Bld) [#/Vol] 5.73 10*3/uL Normal 3.70-11.00 [facility] Comment on above: Order Comment: Speci men Type: BLOOD SPECIMEN Ordering Facility: [facility] Address: [address] [place] [address] Performed By: #### 2 4331-1, #### [facility] CLIA [id number] [address] [place] [address] [place] Comprehensive metabolic 2000 panelon 06-10-2024 Albumin [Mass/Vol] 4.3 g/dL Normal 3.9-4.9 [facility] Comment on above: Order Comment: Speci men Type: BLOOD SPECIMEN Ordering Facility: [facility] Address: [address] [place] [address] Performed By: #### 2 4331-1, #### [facility] CLIA [id number] [address] [place] [address] [place] ALP [Catalytic activity/Vol] 131 U/L High 34-123 [facility] Comment on above: Order Comment: Speci men Type: BLOOD SPECIMEN Ordering Facility: [facility] Address: [address] [place] [address] Performed By: #### 2 4331-1, #### [facility] CLIA [id number] [address] [place] [address] [place] ALT [Catalytic activity/Vol] 18 U/L Normal 7-38 [facility] Comment on above: Order Comment: Speci men Type: BLOOD SPECIMEN Ordering Facility: [facility] Address: [address] [place] [address] Performed By: #### 2 4331-1, #### [facility] CLIA [id number] [address] [place] [address] [place] Anion gap [Moles/Vol] 12 mmol/L Normal 8-15 [facility] Comment on above: Order Comment: Speci men Type: BLOOD SPECIMEN Ordering Facility: [facility] Address: [address] [place], [place] [id number] Performed By: #### 2 4331-1, 54823-0 #### [facility] CLIA [id number] [address] [place], [place] [id number] [place] AST [Catalytic activity/Vol] 29 U/L Normal 13-35 [facility] Comment on above: Order Comment: Speci men Type: BLOOD SPECIMEN Ordering Facility: [facility] Address: [address] [place] [address] Performed By: #### 2 4331-1, 45119-3 #### [facility] CLIA [id number] [address] [place] [address] [place] Bilirubin [Mass/Vol] 0.7 mg/dL Normal 0.2-1.3 [facility] Comment on above: Order Comment: Speci men Type: BLOOD SPECIMEN Ordering Facility: [facility] Address: [address] [place] [address] Performed By: #### 2 4331-1, 78918-8 #### [facility] CLIA [id number] [address] [place] [address] [place] Calcium [Mass/Vol] 9.8 mg/dL Normal 8.5-10.2 [facility] Comment on above: Order Comment: Speci men Type: BLOOD SPECIMEN Ordering Facility: [facility] Address: [address] [place], [place] [id number] Performed By: #### 2 4331-1, 54336-2 #### [facility] CLIA [id number] [address] [place], [place] [id number] [place] Chloride [Moles/Vol] 104 mmol/L Normal 98-107 [facility] Comment on above: Order Comment: Speci men Type: BLOOD SPECIMEN Ordering Facility: [facility] Address: [address] [place], [place] [id number] Performed By: #### 2 4331-1, 33005-2 #### [facility] CLIA [id number] [address] [place] [address] [place] CO2 [Moles/Vol] 24 mmol/L Normal 22-30 [facility] Comment on above: Order Comment: Speci men Type: BLOOD SPECIMEN Ordering Facility: [facility] Address: [address] [place] [address] Performed By: #### 2 4331-, 30516-7 #### [facility] CLIA [id number] [address] [place] [address] [place] Creatinine [Mass/Vol] 0.76 mg/dL Normal 0.58-0.96 [facility] Comment on above: Order Comment: Speci men Type: BLOOD SPECIMEN Ordering Facility: [facility] Address: [address] [place] [address] Performed By: #### 2 4331-, 99965-8 #### [facility] CLIA [id number] [address] [place] [address] [place] Creatinine and Glomerular filtration rate.predicted panel (S/P/Bld) 83 mL/min/1.73m??? Normal >=60 [facility] Comment on above: Order Comment: Speci men Type: BLOOD SPECIMEN Ordering Facility: [facility] Address: [address] [place] [address] Result Comment: Melissa mated Glomerular Filtration Rate (eGFR) is calculated using the 2020 CKD-EPI creatinine equation. This equation utilizes serum creatinine, sex, and age as parameters. The creatinine assay has traceable calibration to isotope dilution-mass spectrometry. Refer to KDIGO guidelines for clinical interpretation. In patients with unstable renal function, e.g. those with acute kidney injury, the eGFR may not accurately reflect actual GFR. Performed By: #### 2 4331-1, 45899-9 #### [facility] CLIA [id number] [address] [place], [place] [id number] [place] Glucose [Mass/Vol] 89 mg/dL Normal 74-99 [facility] Comment on above: Order Comment: Reanna kaplan Type: BLOOD SPECIMEN Ordering Facility: [facility] Address: [address] [place] [address] Result Comment: The [place] Diabetes Association (ADA) provides guidance for cutoff values for fasting glucose and random glucose. The ADA defines fasting as no caloric intake for at least 8 hours. Fasting plasma glucose results between 100 to 125 mg/dL indicate increased risk for diabetes (prediabetes). Fasting plasma glucose results greater than or equal to 126 mg/dL meet the criteria for diagnosis of diabetes. In the absence of unequivocal hyperglycemia, results should be confirmed by repeat testing. In a patient with classic symptoms of hyperglycemia or hyperglycemic crisis, random plasma glucose results greater than or equal to 200 mg/dL meet the criteria for diagnosis of diabetes. Reference: Standards of Medical Care in Diabetes 2016, [place] Diabetes Association. Diabetes Care. 2016.39(Suppl 1). Performed By: #### 2 4331-1, 80695-8 #### [facility] CLIA [id number] [address] [place] [address] [place] Potassium [Moles/Vol] 4.4 mmol/L Normal 3.7-5.1 [facility] Comment on above: Order Comment: Reanna kaplan Type: BLOOD SPECIMEN Ordering Facility: [facility] Address: [address] [place] [address] Performed By: #### 2 4331-1, 54780-0 #### [facility] CLIA [id number] [address] [place] [address] [place] Protein [Mass/Vol] 6.9 g/dL Normal 6.3-8.0 [facility] Comment on above: Order Comment: Reanna kaplan Type: BLOOD SPECIMEN Ordering Facility: [facility] Address: [address] [place] [address] Performed By: #### 2 4331-1, 16748-0 #### [facility] CLIA [id number] [address] [place] [address] [place] Sodium [Moles/Vol] 140 mmol/L Normal 136-144 [facility] Comment on above: Order Comment: Speci men Type: BLOOD SPECIMEN Ordering Facility: [facility] Address: [address] [place], [place] [id number] Performed By: #### 2 4331-1, 78065-8 #### [facility] CLIA [id number] [address] [place] [address] [place] Urea nitrogen [Mass/Vol] 17 mg/dL Normal 7-21 [facility] Comment on above: Order Comment: Speci men Type: BLOOD SPECIMEN Ordering Facility: [facility] Address: [address] [place] [address] Performed By: #### 2 4331-1, #### [facility] CLIA [id number] [address] [place], [place] [phone] [place] LIPID PANEL, NONFASTINGon Cholesterol [Mass/Vol] 221 mg/dL High <200 [facility] Comment on above: Order Comment: Speci men Type: BLOOD SPECIMEN Ordering Facility: [facility] Address: [address] [place], [place] [id number] Result Comment: <200 mg/dL, Desirable 200-239 mg/dL, Borderline high >239 mg/dL, High Performed By: #### 2 4331-1, #### [facility] CLIA [id number] [address] [place], [place] [address] [place] HDL CHOLESTEROL, NF 60 mg/dL Normal >39 [facility] Comment on above: Order Comment: Speci men Type: BLOOD SPECIMEN Ordering Facility: [facility] Address: [address] [place], [place] [id number] Result Comment: 40-5 9 mg/dL, Acceptable >59 mg/dL, High: Negative risk factor for coronary heart disease <40 mg/dL, Low: Positive risk factor for coronary heart disease Performed By: #### 2 4331-1, 54956-2 #### [facility] CLIA [id number] [address] [place] [address] [place] LDL CHOLESTEROL, NF 137 mg/dL High <100 [facility] Comment on above: Order Comment: Reanna kaplan Type: BLOOD SPECIMEN Ordering Facility: [facility] Address: [address] [place] [address] Result Comment: <100 mg/dL, Optimal 100-129 mg/dL, Near optimal/above optimal 130-159 mg/dL, Borderline high 160-189 mg/dL, High >189 mg/dL, Very high Secondary prevention optimal LDL Cholesterol levels are recommended to be < 70 mg/dL Performed By: #### 2 4331-1, 82989-1 #### [facility] CLIA [id number] [address] [place] [address] OF [facility] LDL/HDL RATIO, NF 2.28 mg/dL Normal <2.54 [facility] Comment on above: Order Comment: Reanna kaplan Type: BLOOD SPECIMEN Ordering Facility: [facility] Address: [address] [place] [address] Result Comment: Refe rence: 1. National Cholesterol Education Program ATP III Guideline At-A-Glance Quick Desk Reference: National Heart, Lung, and Blood [place]. National Institutes of Health. 2001: NIH Publication No. 01-3305. 2. An International Atherosclerosis Society position paper: global recommendations for the management of dyslipidemia: executive summary, Atherosclerosis. 2014: 232(2):410-413. Performed By: #### 2 4331-1, 24998-5 #### [facility] CLIA [id number] [address] [place] [address] [place] NON HDL CHOL, NF 161 mg/dL High <130 [facility] Comment on above: Order Comment: Reanna kaplan Type: BLOOD SPECIMEN Ordering Facility: [facility] Address: [address] [place] [address] Result Comment: <130 mg/dL, Optimal 130-159 mg/dL, Near optimal/above optimal 160-189 mg/dL, Borderline high 190-219 mg/dL, High >219 mg/dL, Very high Secondary prevention optimal non HDL Cholesterol levels are recommended to be <100 mg/dL Performed By: #### 2 4331-1, 81329-1 #### [facility] CLIA [id number] [address] [place] [address] [place] T CHOL/HDL RATIO NF 3.68 mg/dL Normal <5.10 [facility] Comment on above: Order Comment: Speci men Type: BLOOD SPECIMEN Ordering Facility: [facility] Address: [address] [place] [address] Performed By: #### 2 4331-1, 27426-1 #### [facility] CLIA [id number] [address] [place] [address] [place] TRIGLYCERIDES, NF 122 mg/dL Normal <150 [facility] Comment on above: Order Comment: Speci men Type: BLOOD SPECIMEN Ordering Facility: [facility] Address: [address] [place] [address] Result Comment: <150 mg/dL, Normal 150-199 mg/dL, Borderline high 200-499 mg/dL, High >499 mg/dL, Very high Performed By: #### 2 4331-1, 12760-6 #### [facility] CLIA [id number] [address] [place] [address] [place] VLDL CHOLESTEROL, NF 24 mg/dL Normal <30 [facility] Comment on above: Order Comment: Speci men Type: BLOOD SPECIMEN Ordering Facility: [facility] Address: [address] [place] [address] Performed By: #### 2 4331-1, 88339-8 #### [facility] CLIA [id number] [address] [place] [address] [place] 12 Lead EKG performed by [facility] [place] 04-30-2024 12 Lead EKG performed by [facility] [address] [address] 12 Lead EKG performed by [facility] 04/30/24 0746 MR#: [id number] Acct: [id number] Name: WINSTON OHARA Rep #: [id number] : 1950 74 From: Binta Martinez Attending Dr: CHANCE Anand Status: DEP AMB Ordering Dr: Binta Dobson Date: 04/03 03/26 [place] [facility] Sex: F C Admitted: [facility] Lead EKG performed by [facility] ECG Report Interpretation ---Sinus Rhythm WITHIN NORMAL LIMITSElectronically signed on 04/30/2024 at 14:32 by Sterling Thapa Software Version [id number] 04/30/24 1435 Date Binta FLETCHER CC: Dr. Liliam Alaniz MD Date Dictated: 04/30/24745 Date Transcribed: 04/30/24745 Road Cleaner: LOUISA Signed Normal [facility] Cardiology Visit Reporton Cardiology Visit Report [facility] [address] [place] [address] OFFICE VISIT Date of Service: 04/30/24 MR#: [id number] Acct: [id number] Name: WINSTON OHARA Rep #: [id number] : 1950 Provider: CHANCE Peacock Age/Sex: 74/F [place] [facility] Status: Signed HPI [facility] History of Present Illness Details: WINSTON OHARA, is a 74 F who presents to the office today for a cardiovascular visit. She is a lady with a history of hypertension, paroxysmal atrial fibrillation, single kidney. Patient presented to the hospital for palpitations in January of this year for atrial fibrillation with RVR, following a left total knee replacement. She was started on sotalol. She underwent a nuclear stress test due to elevated troponin. Stress test was negative for stress-induced ischemia. She also had an echocardiogram in 11/2023 demonstrated Normal left ventricle. Left ventricular systolic function is normal. The left ventricular ejection fraction is 60 %. Mild to moderate (1-2+) tricuspid valve insufficiency. Pulmonary artery systolic pressure is 50 mmHg. Patient had a 24-hour Holter monitor in March 2023 which demonstrated periods of sinus arrhythmia. She did not have any atrial fibrillation. Pt notes that she is having palpitations frequently more so at night. It is not constant and not any different. She does not have any lightheadedness/dizzine ss. She does not have any worsening SOB or CP. She does have some edema at night and this does go away in the AM. EKG today demonstrates SR with a HR of 66. 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 Is patient in pain?: No Allergies flecainide Allergy (Verified 04/30/24 11:20) Left Bundle Branch Block/BUE tingling/leg weakness aspirin (ASA) Adverse Reaction (Verified 04/30/24 11:20) ONLY HAS ONE KIDNEY, TOLD TO AVOID cortisone Adverse Reaction (Verified 04/30/24 11:20) CHEST HOT WEIRD NSAIDS (Non-Steroidal Anti-Inflamma Adverse Reaction (Verified 04/30/24 11:20) ONLY HAS ONE KIDNEY, TOLD TO AVOID Medications ???Medication ???Instructions ???Recorded ???Confirmed ???Type fluticasone propionate 50 15.8 ml NS DAILY PRN ALLERGIES 10/19/17 04/30/24 History mcg/actuation nasal spray,suspension bismuth subsalicylate 262 mg 2 tablet PO Q30-60M PRN Diarrhea 10/08/20 04/30/24 History tablet (Pepto-Bismol) cholecalciferol (vitamin D3) 25 50 mcg PO DAILY Supplement 01/20/21 04/30/24 History mcg (1,000 unit) tablet (Vitamin D3) sertraline 25 mg tablet 25 mg PO DAILY 08/09/22 04/30/24 History sotalol 80 mg tablet 80 mg PO BID #180 tabs 07/26/23 04/30/24 Rx acetaminophen 500 mg tablet 1,000 mg PO Q8 PRN 09/26/23 04/30/24 History biotin 1,000 mcg chewable tablet 1,000 mcg PO DAILY 09/26/23 04/30/24 History losartan 100 mg tablet 100 mg PO DAILY #90 tabs 09/26/23 04/30/24 Rx zolpidem 5 mg tablet 5 mg PO QHS Sleep 09/26/23 04/30/24 History rivaroxaban 20 mg tablet 20 mg PO DAILY #90 tabs 10/25/23 04/30/24 Rx furosemide 40 mg tablet 40 mg PO DAILY PRN edema #30 tabs 12/04/23 04/30/24 Rx Have you fallen in the past year?: No PFSH Medical History Dyspnea Wears glasses Post-menopausal Arthritis History of diverticulitis Former smoker History of pain when walking History of edema Normal stress echocardiogram Hx of thyroid cyst Persistent atrial fibrillation (11/02/20) Paroxysmal atrial flutter (10/2017) Paroxysmal atrial fibrillation (10/2017) Essential (primary) hypertension Single kidney Insomnia Anxiety Atrial fibrillation with RVR Surgical History History of left knee replacement Hx of cystoscopy History of cardioversion (11/11/20) History of nephrectomy History of colon surgery Hx of appendectomy Family History Mother Hypertension Father Hypertension Prostate cancer Leukemia Sister vein problem DVT (deep venous thrombosis) Hypertension Social History Smoking Status: Former smoker alcohol intake: never substance use type: does not use caffeine: Yes Type: coffee Number of servings: 4 what type of physical activity do you participate in: walking frequency: daily ROS Const Const: Negative for fatigue, weakness, headache(s), daytime sleepiness or difficulty sleeping ENT ENT: Negative for headache(s (more content not included)... Normal [facility] Basophil percentageOrdered B y: Sterling Alanis on 11-06-2023 Chloride [Moles/Vol] 105 mmol/L 98-107 [facility] Glucose [Mass/Vol] 134 mg/dL 74-106 [facility] Comment on above: Fasting Glucose resu lt greater than or equal to 126 mg/dL suggests DIABETES MELLITUS per A.D.A. criteria. Potassium [Moles/Vol] 4.7 mmol/L 3.5-5.1 [facility] Comment on above: Slight Hemolysis, Re sult may be falsely increased. Sodium [Moles/Vol] 137 mmol/L 136-145 [facility] - Chemistry and C hemistry - challengeOrdered By: Sterling Thapa on 11-06-2023 CO2 [Moles/Vol] 29.0 mmol/L 21.0-32.0 [facility] Urea nitrogen/Creatinine [Mass ratio] 21.3 mg/mg 10-20 [facility] No Panel InformationOrdered By: Sterling Thapa on 11-06-2023 Estimated GFR (MDRD) Amer 76 mL/min >60 [facility] Comment on above: GFR Calc Estimated GFR (MDRD) Non-Af Amer 62 mL/min >60 [facility] Comment on above: Non- GFR Calc Serum or plasma calcium hay urement (mass/volume)Ordered By: Sterling Thapa on 11-06-2023 Calcium [Mass/Vol] 9.9 mg/dL 8.5-10.1 [facility] Serum or plasma creatinine m easurement (mass/volume)Ordered By: Sterling Thapa on 11-06-2023 Creatinine [Mass/Vol] 0.94 mg/dL 0.55-1.02 [facility] Comment on above: The validity of the calculated GFR & GFRAA in patients over 70 years has not been determined. Clinical correlation is essential. Serum or plasma urea nitroge n measurement (mass/volume)Ordered By: Sterling Thapa on 11-06-2023 Urea nitrogen [Mass/Vol] 20 mg/dL 7-18 [facility] Thin prep Papanicolaou smear with manual screeningOrdered By: Sterling Thapa on 11-06-2023 Thin prep Papanicolaou smear with manual screening 3 5-15 [facility] Laboratory - Chemistry and C hemistry - challengeOrdered By: Sterling Thapa on 10-19-2023 Natriuretic peptide B (Bld) [Mass/Vol] 167.8 pg/mL 0-100 [facility] Absolute lymphocyte countOrd ered By: Jf Gallegos on 04-13-2023 Lymphocytes Auto (Unsp spec) [#/Vol] 1.10 10*3/uL 0.83-4.51 [facility] Basophil percentageOrdered B y: Jf Gallegos on 04-13-2023 Basophils/100 WBC (Bld) 0.8 % 0-1 [facility] Chloride [Moles/Vol] 107 mmol/L 98-107 [facility] Eosinophils/100 WBC (Bld) 2.3 % 0-5 [facility] Glucose [Mass/Vol] 119 mg/dL 74-106 [facility] Comment on above: Fasting Glucose resu lt from 100 to 125 mg/dL suggests IMPAIRED HOMEOSTASIS per A.D.A. criteria. Neutrophils (Bld) [#/Vol] 4.5 10*3/uL 2.0-7.7 [facility] Neutrophils/100 WBC (Bld) 71.9 % 47-70 [facility] Potassium [Moles/Vol] 4.5 mmol/L 3.5-5.1 [facility] Sodium [Moles/Vol] 137 mmol/L 136-145 [facility] WBC (Bld) [#/Vol] 6.2 10*3/uL 4.4-11.0 [facility] Blood erythrocytes count (nu mber/volume)Ordered By: Jf Gallegos on 04-13-2023 RBC (Bld) [#/Vol] 5.05 10*6/uL 4.2-5.4 [facility] Blood hemoglobin measurement (mass/volume)Ordered By: Jf Gallegos on 04-13-2023 Hemoglobin (Bld) [Mass/Vol] 15.3 g/dL 12.0-15.0 [facility] Blood lymphocytes/100 leukoc ytesOrdered By: Jf Gallegos on 04-13-2023 Lymphocytes/100 WBC (Bld) 17.7 % 19-41 [facility] Blood monocytes/100 leukocyt esOrdered By: Jf Gallegos on 04-13-2023 Monocytes/100 WBC (Bld) 6.8 % 0-10 [facility] Blood platelet mean volumeOr dered By: Jf Gallegos on 04-13-2023 Platelet mean volume (Bld) [Entitic vol] 10.1 fL 6.2-12.0 [facility] Determination of erythrocyte mean corpuscular volume (MCV)Ordered By: Jf Gallegos on 04-13-2023 MCV (RBC) [Entitic vol] 94.3 fL 81-99 [facility] Hematocrit Auto (Bld) [Volum e fraction]Ordered By: Jf Gallegos on 04-13-2023 Hematocrit (Bld) [Volume fraction] 47.6 % 37-47 [facility] - Chemistry and C hemistry - challengeOrdered By: Jf Gallegos on 04-13-2023 CO2 [Moles/Vol] 24.0 mmol/L 21.0-32.0 [facility] Magnesium [Mass/Vol] 2.4 mg/dL 1.6-2.6 [facility] Urea nitrogen/Creatinine [Mass ratio] 18.4 mg/mg 10-20 [facility] Laboratory - Hematology and Cell countsOrdered By: Jf Gallegos on 04-13-2023 Erythrocyte distribution width (RBC) [Entitic vol] 43.5 fL 35.1-43.9 [facility] Erythrocyte distribution width (RBC) [Ratio] 12.5 % 11.6-14.6 [facility] Immature granulocytes/100 WBC (Bld) 0.500 % 0.0-0.9 [facility] Comment on above: IG% - Immature Granu locytes (promyelocytes, myelocytes and metamyelocytes) > 1% indicates that a LEFT SHIFT is Present. MCH (RBC) [Entitic mass] 30.3 pg 27.0-32.0 [facility] Nucleated RBC/100 WBC (Bld) [Ratio] 0 % 0-5 [facility] MCHC Auto (RBC) [Mass/Vol]Or dered By: Jf Gallegos on 04-13-2023 MCHC (RBC) [Mass/Vol] 32.1 g/dL 32-36 [facility] No Panel InformationOrdered By: Jf Gallegos on 04-13-2023 Estimated Creatinine Clearance Calc 45.47 ml/min [facility] Estimated GFR (MDRD) Amer 72 mL/min >60 [facility] Comment on above: GFR Calc Estimated GFR (MDRD) Non-Af Amer 60 mL/min >60 [facility] Comment on above: Non- GFR Calc Troponin I High Sensitivity 7 pg/mL 3.0-54.0 [facility] Comment on above: Please Note: [place] t Units and Gender Specific Reference Ranges. For more information see Policy Stat Procedure [place] High Sensitivity Troponin (TNIH) and attachments. Platelets bldOrdered By: Ho Gallegos on 04-13-2023 Platelets (Bld) [#/Vol] 230 10*3/uL 150-450 [facility] Serum or plasma calcium hay urement (mass/volume)Ordered By: Jf Gallegos on 04-13-2023 Calcium [Mass/Vol] 9.4 mg/dL 8.5-10.1 [facility] Serum or plasma creatinine m easurement (mass/volume)Ordered By: Jf Gallegos on 04-13-2023 Creatinine [Mass/Vol] 0.98 mg/dL 0.55-1.02 [facility] Comment on above: The validity of the calculated GFR & GFRAA in patients over 70 years has not been determined. Clinical correlation is essential. Serum or plasma urea nitroge n measurement (mass/volume)Ordered By: Jf Gallegos on 04-13-2023 Urea nitrogen [Mass/Vol] 18 mg/dL 7-18 [facility] Thin prep Papanicolaou smear with manual screeningOrdered By: Jf Gallegos on 04-13-2023 Thin prep Papanicolaou smear with manual screening 6 5-15 [facility] LOUIS SCREENINGon 07-28-2022 [facility] L[place]IS DIAGNOSTIC LTon 03-15-20 [facility] Absolute lymphocyte counton 01-26-2022 Lymphocytes Auto (Unsp spec) [#/Vol] 1.70 10*3/uL 0.83-4.51 [facility] Work Phone: Basophil percentageon 2021 Basophils/100 WBC (Bld) 0.8 % 0-1 [facility] Work Phone: Chloride [Moles/Vol] 106 mmol/L 98-107 [facility] Work Phone: Eosinophils/100 WBC (Bld) 2.2 % 0-5 [facility] Work Phone: Glucose [Mass/Vol] 111 mg/dL 74-106 [facility] Work Phone: Comment on above: Fasting Glucose resu lt from 100 to 125 mg/dL suggests IMPAIRED HOMEOSTASIS per A.D.A. criteria. Neutrophils (Bld) [#/Vol] 4.6 10*3/uL 2.0-7.7 [facility] Work Phone: Neutrophils/100 WBC (Bld) 63.8 % 47-70 [facility] Work Phone: Potassium [Moles/Vol] 4.6 mmol/L 3.5-5.1 [facility] Work Phone: Sodium [Moles/Vol] 138 mmol/L 136-145 [facility] Work Phone: WBC (Bld) [#/Vol] 7.2 10*3/uL 4.4-11.0 [facility] Work Phone: Blood erythrocytes count (nu mber/volume)on 01-26-2022 RBC (Bld) [#/Vol] 4.49 10*6/uL 4.2-5.4 [facility] Work Phone: Blood hemoglobin measurement (mass/volume)on 01-26-2022 Hemoglobin (Bld) [Mass/Vol] 14.3 g/dL 12.0-15.0 [facility] Work Phone: Blood lymphocytes/100 leukoc yteson 01-26-2022 Lymphocytes/100 WBC (Bld) 23.7 % 19-41 [facility] Work Phone: Blood monocytes/100 leukocyt eson 01-26-2022 Monocytes/100 WBC (Bld) 8.8 % 0-10 [facility] Work Phone: [phone] Blood platelet mean volumeon 01-26-2022 Platelet mean volume (Bld) [Entitic vol] 10.3 fL 6.2-12.0 [facility] Work Phone: [phone] Determination of erythrocyte mean corpuscular volume (MCV)on 01-26-2022 MCV (RBC) [Entitic vol] 96.2 fL 81-99 [facility] Work Phone: [phone] Hematocrit Auto (Bld) [Volum e fraction]on 01-26-2022 Hematocrit (Bld) [Volume fraction] 43.2 % 37-47 [facility] Work Phone: [phone] Laboratory - Chemistry and C hemistry - challengeon 01-26-2022 CO2 [Moles/Vol] 27.0 mmol/L 21.0-32.0 [facility] Work Phone: [phone] Magnesium [Mass/Vol] 2.2 mg/dL 1.6-2.6 [facility] Work Phone: [phone] Urea nitrogen/Creatinine [Mass ratio] 16.4 mg/mg 10-20 [facility] Work Phone: [phone] Laboratory - Hematology and Cell countson 01-26-2022 Erythrocyte distribution width (RBC) [Entitic vol] 46.5 fL 35.1-43.9 [facility] Work Phone: [phone] Erythrocyte distribution width (RBC) [Ratio] 13.1 % 11.6-14.6 [facility] Work Phone: [phone] Immature granulocytes/100 WBC (Bld) 0.700 % 0.0-0.9 [facility] Work Phone: [phone] Comment on above: IG% - Immature Granu locytes (promyelocytes, myelocytes and metamyelocytes) > 1% indicates that a LEFT SHIFT is Present. MCH (RBC) [Entitic mass] 31.8 pg 27.0-32.0 [facility] Work Phone: Nucleated RBC/100 WBC (Bld) [Ratio] 0 % 0-5 [facility] Work Phone: MCHC Auto (RBC) [Mass/Vol]on 01-26-2022 MCHC (RBC) [Mass/Vol] 33.1 g/dL 32-36 [facility] Work Phone: [phone] No Panel Informationon 01-26 Estimated Creatinine Clearance Calc 46.78 ml/min [facility] Work Phone: [phone] Estimated GFR (MDRD) Amer 73 mL/min >60 [facility] Work Phone: [phone] Comment on above: GFR Calc Estimated GFR (MDRD) Non-Af Amer 60 mL/min >60 [facility] Work Phone: Comment on above: Non- GFR Calc Thyroid Stimulating Hormone (TSH) 6.39 uIU/mL 0.358-3.74 [facility] Work Phone: [phone] Troponin I High Sensitivity 4 pg/mL 3.0-54.0 [facility] Work Phone: Comment on above: Please Note: [place] t Units and Gender Specific Reference Ranges. For more information see Policy Stat Procedure [place] High Sensitivity Troponin (TNIH) and attachments. Platelets bldon 01-26-2022 Platelets (Bld) [#/Vol] 236 10*3/uL 150-450 [facility] Work Phone: [phone] Serum or plasma calcium hay urement (mass/volume)on 01-26-2022 Calcium [Mass/Vol] 9.4 mg/dL 8.5-10.1 [facility] Work Phone: [phone] Serum or plasma creatinine m easurement (mass/volume)on 01-26-2022 Creatinine [Mass/Vol] 0.98 mg/dL 0.55-1.02 [facility] Work Phone: Comment on above: The validity of the calculated GFR & GFRAA in patients over 70 years has not been determined. Clinical correlation is essential. Serum or plasma urea nitroge n measurement (mass/volume)on 01-26-2022 Urea nitrogen [Mass/Vol] 16 mg/dL 7-18 [facility] Work Phone: Thin prep Papanicolaou smear with manual screeningon 01-26-2022 Thin prep Papanicolaou smear with manual screening 5 5-15 [facility] Work Phone: COLONOSCOPY SCREENINGon 05-0 [facility] Vital Signs Date Time Vital Sign Value Performing Clinician Facility 01-31-2025 13:49-0400 Diastolic blood pressure 68 mm[Hg] Dr. Liliam Alaniz MD Work Phone: 9(763)250-783331 [place] [address] 01-31-2025 13:49-0400 Heart rate 130 /min Dr. Liliam Alaniz MD Work Phone: 4(395)840-875631 [place] [address] 01-31-2025 13:49-0400 Respiratory rate 18 /min Dr. Liliam Alaniz MD Work Phone: 3(677)565-586831 [place] [address] 01-31-2025 13:49-0400 Systolic blood pressure 98 mm[Hg] Dr. Liliam Alaniz MD Work Phone: 7(319)062-625131 [place] [address] 01-13-2025 11:13-0400 Body height 162.[address] Liliam Alaniz MD Work Phone: 3(942)736-407231 [place] [address] 01-13-2025 11:13-0400 Body weight 69.[address] Liliam Alaniz MD Work Phone: 3(996)130-020331 [place] [address] 01-10-2025 12:00-0400 Body mass index (BMI) [Ratio] 26.4 kg/m2 Dr. Liliam Alaniz MD Work Phone: 2(860)692-1301[address] [place] [address] 01-10-2025 09:26-0400 Body height 162.[address] Liliam Alaniz MD Work Phone: 1(182)062-399031 [place] [address] 01-10-2025 09:26-0400 Body mass index (BMI) [Ratio] 26.2 kg/m2 Dr. Liliam Alaniz MD Work Phone: 7(720)163-867631 [place] [address] 01-10-2025 09:26-0400 Body weight 69.[address] Liliam Alaniz MD Work Phone: [facility] 01-10-2025 09:26-0400 Diastolic blood pressure 66 mm[Hg] Dr. Liliam Alaniz MD Work Phone: [facility] 01-10-2025 09:26-0400 Heart rate 123 /min Dr. Liliam Alaniz MD Work Phone: [facility] 01-10-2025 09:26-0400 Respiratory rate 16 /min Dr. Liliam Alaniz MD Work Phone: [facility] 01-10-2025 09:26-0400 Systolic blood pressure 109 mm[Hg] Dr. Liliam Alaniz MD Work Phone: [facility] 12-26-2024 10:35-0400 Body mass index (BMI) [Ratio] 26.53 kg/m2 Liliam Alaniz MD Work Phone: [facility] 12-26-2024 10:35-0400 Body weight 70.1 kg Liliam Alaniz MD Work Phone: [facility] 12-26-2024 10:35-0400 Diastolic blood pressure 62 mm[Hg] Liliam Alaniz MD Work Phone: [facility] 12-26-2024 10:35-0400 Heart rate 88 /min Liliam Alaniz MD Work Phone: [facility] 12-26-2024 10:35-0400 Respiratory rate 14 /min Liliam Alaniz MD Work Phone: [facility] 12-26-2024 10:35-0400 SaO2% (BldA) [Mass fraction] 98 % Liliam Alaniz MD Work Phone: [facility] 12-26-2024 10:35-0400 Systolic blood pressure 136 mm[Hg] Liliam Alaniz MD Work Phone: [facility] 10-04-2024 13:41-0400 Body mass index (BMI) [Ratio] 26.7 kg/m2 Dr. Liliam Alaniz MD Work Phone: 5(551)349-033[address] [place] [address] 10-04-2024 13:41-0400 Body weight 70.[address] Liliam Alaniz MD Work Phone: 0(456)939-946031 [place] [address] 10-04-2024 13:41-0400 Diastolic blood pressure 74 mm[Hg] Dr. Liliam Alaniz MD Work Phone: 9(451)711-668531 [place] [address] 10-04-2024 13:41-0400 Heart rate 54 /min Dr. Liliam Alaniz MD Work Phone: 5(632)399-068531 [place] [address] 10-04-2024 13:41-0400 Respiratory rate 16 /min Dr. Liliam Alaniz MD Work Phone: 3(453)000-820831 [place] [address] 10-04-2024 13:41-0400 Systolic blood pressure 159 mm[Hg] Dr. Liliam Alaniz MD Work Phone: 0(261)962-207831 [place] [address] 09-16-2024 17:05-0400 Body temperature 98.7 [degF] Dr. Liliam Alanzi MD Work Phone: 1(804)623-146331 [place] [address] 09-16-2024 17:05-0400 Diastolic blood pressure 73 mm[Hg] Dr. Liliam Alaniz MD Work Phone: 4(639)676-846431 [place] [address] 09-16-2024 17:05-0400 Heart rate 54 /min Dr. Liliam Alaniz MD Work Phone: 0(164)939-047531 [place] [address] 09-16-2024 17:05-0400 Respiratory rate 18 /min Dr. Liliam Alaniz MD Work Phone: 3(951)132-796931 [place] [address] 09-16-2024 17:05-0400 SaO2% (BldA) [Mass fraction] 97 % Dr. Liliam Alaniz MD Work Phone: 3(689)999-083131 [place] [address] 09-16-2024 17:05-0400 Systolic blood pressure 137 mm[Hg] Dr. Liliam Alaniz MD Work Phone: 8(308)950-535431 [place] [address] 09-16-2024 15:55-0400 Inhaled oxygen flow rate 2 L/min Dr. Liliam Alaniz MD Work Phone: [facility] 09-16-2024 13:51-0400 Body height 162.[address] Liliam Alaniz MD Work Phone: [facility] 09-16-2024 13:51-0400 Body mass index (BMI) [Ratio] 25.7 kg/m2 Dr. Liliam Alaniz MD Work Phone: [facility] 09-16-2024 13:51-0400 Body weight 68.[address] Liliam Alaniz MD Work Phone: [facility] 08-29-2024 19:48-0500 Body temperature 101.61 [degF] Reji Thomason APRN.PRECISION DEVICES INSPECTOR/TESTER Work Phone: [facility] 08-29-2024 19:48-0500 Diastolic blood pressure 71 mm[Hg] Reji Thomason APRN.PRECISION DEVICES INSPECTOR/TESTER Work Phone: [facility] 08-29-2024 19:48-0500 Heart rate 63 /min Reji Thomason APRN.PRECISION DEVICES INSPECTOR/TESTER Work Phone: [facility] 08-29-2024 19:48-0500 Respiratory rate 20 /min Reji Thomason APRN.PRECISION DEVICES INSPECTOR/TESTER Work Phone: [facility] 08-29-2024 19:48-0500 SaO2% (BldA) [Mass fraction] 98 % Reji Thomason APRN.PRECISION DEVICES INSPECTOR/TESTER Work Phone: [facility] 08-29-2024 19:48-0500 Systolic blood pressure 141 mm[Hg] Reji Thomason APRN.PRECISION DEVICES INSPECTOR/TESTER Work Phone: [facility] 06-14-2024 16:02-0500 Diastolic blood pressure 68 mm[Hg] Liliam Alaniz MD Work Phone: [facility] 06-14-2024 16:02-0500 Systolic blood pressure 134 mm[Hg] Liliam Alaniz MD Work Phone: [facility] 06-14-2024 14:11-0500 Body height 162.6 cm Liliam Alaniz MD Work Phone: [facility] 06-14-2024 14:11-0500 Body mass index (BMI) [Ratio] 26.11 kg/m2 Liliam Alaniz MD Work Phone: [facility] 06-14-2024 14:11-0500 Body weight 69 kg Liliam Alaniz MD Work Phone: [facility] 06-14-2024 14:11-0500 Heart rate 64 /min Liliam Alaniz MD Work Phone: [facility] 06-14-2024 14:11-0500 Respiratory rate 12 /min Liliam Alaniz MD Work Phone: [facility] 06-14-2024 14:11-0500 SaO2% (BldA) [Mass fraction] 100 % Liliam Alaniz MD Work Phone: [facility] 12-20-2023 09:11-0400 Body mass index (BMI) [Ratio] 26.43 kg/m2 Liliam Alaniz MD Work Phone: [facility] 12-20-2023 09:11-0400 Body temperature 97.7 [degF] Liliam Alaniz MD Work Phone: [facility] 12-20-2023 09:11-0400 Body weight 69.85 kg Liliam Alaniz MD Work Phone: [facility] 12-20-2023 09:11-0400 Diastolic blood pressure 64 mm[Hg] Liliam Alaniz MD Work Phone: [facility] 12-20-2023 09:11-0400 Heart rate 61 /min Liliam Alaniz MD Work Phone: [facility] 12-20-2023 09:11-0400 Respiratory rate 18 /min Liliam Alaniz MD Work Phone: [facility] 12-20-2023 09:11-0400 SaO2% (BldA) [Mass fraction] 97 % Liliam Alaniz MD Work Phone: [facility] 12-20-2023 09:11-0400 Systolic blood pressure 114 mm[Hg] Liliam Alaniz MD Work Phone: [facility] 09-26-2023 13:43-0400 Body height 162.[address] Liliam Alaniz Work Phone: [facility] 09-26-2023 13:43-0400 Body mass index (BMI) [Ratio] 26.1 kg/m2 Dr. Liliam Alaniz Work Phone: [facility] 09-26-2023 13:43-0400 Body weight 68.[address] Liliam Alaniz Work Phone: [facility] 09-26-2023 13:43-0400 Diastolic blood pressure 66 mm[Hg] Dr. Liliam Alaniz Work Phone: 4(469)794-497470 [place] [address] 09-26-2023 13:43-0400 Heart rate 52 /min Dr. Liliam Alaniz Work Phone: 7(446)098-839370 [place] [address] 09-26-2023 13:43-0400 Respiratory rate 16 /min Dr. Liliam Alaniz Work Phone: [facility] 09-26-2023 13:43-0400 Systolic blood pressure 133 mm[Hg] Dr. Liliam Alaniz Work Phone: [facility] 04-13-2023 16:54-0400 Diastolic blood pressure 71 mm[Hg] Dr. Liliam Alaniz Work Phone: [facility] 04-13-2023 16:54-0400 Heart rate 56 /min Dr. Liilam Alaniz Work Phone: 0(877)246-212970 [place] [address] 04-13-2023 16:54-0400 Respiratory rate 14 /min Dr. Liliam Alaniz Work Phone: [facility] 04-13-2023 16:54-0400 SaO2% (BldA) [Mass fraction] 98 % Dr. Liliam Alaniz Work Phone: 1(106)137-035047 [address] 04-13-2023 16:54-0400 Systolic blood pressure 136 mm[Hg] Dr. Liliam Alaniz Work Phone: 2(086)768-936431 [place] [address] 04-13-2023 15:08-0400 Inhaled oxygen flow rate 99 L/min Dr. Liliam Alaniz Work Phone: 4(677)911-494431 [place] [address] 04-13-2023 12:38-0400 Body height 162.[address] Liliam Alaniz Work Phone: 7(393)853-171731 [place] [address] 04-13-2023 12:38-0400 Body mass index (BMI) [Ratio] 25.5 kg/m2 Dr. Liliam Alaniz Work Phone: 0(161)617-958931 [place] [address] 04-13-2023 12:38-0400 Body temperature 97.8 [degF] Dr. Liliam Alaniz Work Phone: 9(404)674-137831 [place] [address] 04-13-2023 12:38-0400 Body weight 67.[address] Liliam Alaniz Work Phone: 8(313)527-602131 [place] [address] 02-22-2023 11:37-0400 Body height 162.[address] Liliam Alaniz Work Phone: 6(685)233-613631 [place] [address] 02-22-2023 11:32-0400 Body mass index (BMI) [Ratio] 25.2 kg/m2 Dr. Liliam Alaniz Work Phone: 4(776)016-663331 [place] [address] 02-22-2023 11:32-0400 Body weight 66.[address] Liliam Alaniz Work Phone: 8(975)338-694831 [place] [address] 02-22-2023 11:32-0400 Diastolic blood pressure 80 mm[Hg] Dr. Liliam Alaniz Work Phone: 1(087)665-275331 [place] [address] 02-22-2023 11:32-0400 Heart rate 51 /min Dr. Liliam Alaniz Work Phone: 9(989)042-985731 [place] [address] 02-22-2023 11:32-0400 Respiratory rate 18 /min Dr. Liliam Alaniz Work Phone: [facility] 02-22-2023 11:32-0400 SaO2% (BldA) [Mass fraction] 98 % Dr. Liliam Alaniz Work Phone: [facility] 02-22-2023 11:32-0400 Systolic blood pressure 138 mm[Hg] Dr. Liliam Alaniz Work Phone: [facility] 12-14-2022 13:10-0400 Diastolic blood pressure 64 mm[Hg] Tuyet Golden DO Work Phone: [facility] 12-14-2022 13:10-0400 Heart rate 58 /min Tuyet Golden DO Work Phone: [facility] 12-14-2022 13:10-0400 SaO2% (BldA) [Mass fraction] 99 % Tuyet Golden DO Work Phone: [facility] 12-14-2022 13:10-0400 Systolic blood pressure 122 mm[Hg] Tuyet Golden DO Work Phone: [facility] 11-11-2022 11:01-0400 Diastolic blood pressure 68 mm[Hg] Tuyet Golden DO Work Phone: [facility] 11-11-2022 11:01-0400 Heart rate 62 /min Tuyet Golden DO Work Phone: [facility] 11-11-2022 11:01-0400 SaO2% (BldA) [Mass fraction] 99 % Tuyet Golden DO Work Phone: [facility] 11-11-2022 11:01-0400 Systolic blood pressure 132 mm[Hg] Tuyet Golden DO Work Phone: [facility] 09-06-2022 10:36-0500 Body temperature 97.39 [degF] Liliam Alaniz MD Work Phone: [facility] 09-06-2022 10:36-0500 Body weight 68.04 kg Liliam Alaniz MD Work Phone: [facility] 09-06-2022 10:36-0500 Diastolic blood pressure 72 mm[Hg] Liliam Alaniz MD Work Phone: [facility] 09-06-2022 10:36-0500 Heart rate 59 /min Liliam Alaniz MD Work Phone: [facility] 09-06-2022 10:36-0500 Respiratory rate 18 /min Liliam Alaniz MD Work Phone: [facility] 09-06-2022 10:36-0500 SaO2% (BldA) [Mass fraction] 99 % Liliam Alaniz MD Work Phone: [facility] 09-06-2022 10:36-0500 Systolic blood pressure 124 mm[Hg] Liliam Alaniz MD Work Phone: [facility] 06-22-2022 13:02-0500 Body height 162.6 cm Liliam Alaniz MD Work Phone: [facility] 06-22-2022 13:02-0500 Body weight 70.31 kg Liliam Alaniz MD Work Phone: [facility] 06-22-2022 13:02-0500 Diastolic blood pressure 84 mm[Hg] Liliam Alaniz MD Work Phone: [facility] 06-22-2022 13:02-0500 Heart rate 59 /min Liliam Alaniz MD Work Phone: [facility] 06-22-2022 13:02-0500 SaO2% (BldA) [Mass fraction] 100 % Liliam Alaniz MD Work Phone: [facility] 06-22-2022 13:02-0500 Systolic blood pressure 136 mm[Hg] Liliam Alaniz MD Work Phone: [facility] 02-22-2022 11:07-0400 Body weight 69.4 kg Liliam Alaniz MD Work Phone: [facility] 02-22-2022 11:07-0400 Diastolic blood pressure 84 mm[Hg] Liliam Alaniz MD Work Phone: [facility] 02-22-2022 11:07-0400 Heart rate 54 /min Liliam Alaniz MD Work Phone: [facility] 02-22-2022 11:07-0400 SaO2% (BldA) [Mass fraction] 98 % Liliam Alaniz MD Work Phone: [facility] 02-22-2022 11:07-0400 Systolic blood pressure 136 mm[Hg] Liliam Alaniz MD Work Phone: [facility] 02-07-2022 08:21-0400 Body weight 68.49 kg Katey Stanton RELIEF SALESPERSON.RELIEF SALESPERSON Work Phone: [facility] 02-07-2022 08:21-0400 Diastolic blood pressure 70 mm[Hg] Katey Stanton RELIEF SALESPERSON.RELIEF SALESPERSON Work Phone: [facility] 02-07-2022 08:21-0400 Heart rate 54 /min Katey Stanton RELIEF SALESPERSON.RELIEF SALESPERSON Work Phone: [facility] 02-07-2022 08:21-0400 Respiratory rate 14 /min Katey Stanton RELIEF SALESPERSON.RELIEF SALESPERSON Work Phone: [facility] 02-07-2022 08:21-0400 SaO2% (BldA) [Mass fraction] 97 % Katey Stanton RELIEF SALESPERSON.RELIEF SALESPERSON Work Phone: [facility] 02-07-2022 08:21-0400 Systolic blood pressure 124 mm[Hg] Katey Stanton RELIEF SALESPERSON.RELIEF SALESPERSON Work Phone: [facility] 01-27-2022 00:59-0400 Diastolic blood pressure 80 mm[Hg] [facility] Work Phone: 01-27-2022 00:59-0400 Heart rate 82 /min [facility] Work Phone: 01-27-2022 00:59-0400 Respiratory rate 16 /min [facility] Work Phone: 01-27-2022 00:59-0400 Systolic blood pressure 135 mm[Hg] [facility] Work Phone: 01-26-2022 22:27-0400 Body height 162.56 cm [facility] Work Phone: 01-26-2022 22:27-0400 Body mass index (BMI) [Ratio] 25.7 kg/m2 [facility] Work Phone: 01-26-2022 22:27-0400 Body temperature 97.9 [degF] [facility] Work Phone: 01-26-2022 22:27-0400 Body weight 68.03 kg [facility] Work Phone: 01-26-2022 22:27-0400 SaO2% (BldA) [Mass fraction] 99 % [facility] Work Phone: 11-02-2021 09:45-0400 Diastolic blood pressure 59 mm[Hg] Jake Boyle MD Work Phone: [facility] 11-02-2021 09:45-0400 Heart rate 52 /min Jake Boyle MD Work Phone: [facility] 11-02-2021 09:45-0400 SaO2% (BldA) [Mass fraction] 97 % Jake Boyle MD Work Phone: [facility] 11-02-2021 09:45-0400 Systolic blood pressure 128 mm[Hg] Jake Boyle MD Work Phone: [facility] 11-02-2021 09:25-0400 Respiratory rate 16 /min Jake Boyle MD Work Phone: [facility] 11-02-2021 08:08-0400 Body temperature 97 [degF] Jake Boyle MD Work Phone: [facility] 11-02-2021 08:08-0400 Body weight 68.6 kg Jake Boyle MD Work Phone: [facility] 06-08-2021 14:21-0500 Diastolic blood pressure 84 mm[Hg] Dr. Liliam Alaniz Work Phone: [facility] Work Phone: 06-08-2021 14:21-0500 Systolic blood pressure 137 mm[Hg] Dr. Liliam Alaniz Work Phone: [facility] Work Phone: 06-08-2021 13:51-0500 Body height 162.[address] Liliam Alaniz Work Phone: [facility] Work Phone: 06-08-2021 13:51-0500 Body mass index (BMI) [Ratio] 26.2 kg/m2 Dr. Liliam Alaniz Work Phone: [facility] Work Phone: 06-08-2021 13:51-0500 Body weight 69.[address] Liliam Alaniz Work Phone: [facility] Work Phone: 06-08-2021 13:51-0500 Heart rate 54 /min Dr. Liliam Alaniz Work Phone: [facility] Work Phone: 06-08-2021 13:51-0500 Respiratory rate 18 /min Dr. Liliam Alaniz Work Phone: [facility] Work Phone: 06-08-2021 13:51-0500 SaO2% (BldA) [Mass fraction] 98 % Dr. Liliam Alaniz Work Phone: [facility] Work Phone: Encounters Encounter Date Encounter Type Care Provider Facility Start: 02-07-2025 End: 02-07-[address] Liliam Alaniz MD Work Phone: -[facility] Start: 02-07-2025 End: 02-07-[address] 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 Liliam Alaniz MD Work Phone: -[facility] Start: 01-20-2025 End: 01-20-2025 Patient encounter procedure Binta Dobson PA -[facility] Work Phone: Start: 01-20-2025 End: 01-20-[address] Liliam Alaniz MD Work Phone: -[facility] Start: 01-15-2025 End: 01-15-[address] Liliam Alaniz MD Work Phone: -[facility] Start: 01-15-2025 End: 01-15-[address] Sterling Thapa MD -[facility] Work Phone: Start: 01-13-2025 ambulatory Liliam Pappas y:[facility] Start: 01-13-2025 Non-patient / Non-visit Dr. Gage kidd DO -[facility] Start: 01-13-2025 End: 01-13-2025 Admission to same day surgery center Dr. Sterling Thapa MD -[facility] Work Phone: Start: 01-13-2025 End: 01-13-[address] Liliam Alaniz MD Work Phone: -[facility] Start: 01-10-2025 End: 01-10-2025 Patient encounter procedure Binta Dobson PA -[facility] Work Phone: Start: 01-10-2025 End: 01-10-[address] Liliam Alaniz MD Work Phone: -[facility] Start: 12-26-2024 End: 12-26-2024 Office outpatient visit 25 minutes Liliam Alaniz MD Work Phone: [facility] [place] Comment on above: Psychophysiological insomnia (Primary Dx); Paroxysmal atrial fibrillation (HCC); Hypercholesterolemia; Chronic pain of right knee; Primary osteoarthritis of right knee; Essential hypertension; Vitamin D deficiency Start: 12-26-2024 End: 12-26-2024 [facility] Start: 12-23-2024 End: 12-23-2024 ambulatory [facility] Facility:[facility] Start: 12-09-2024 End: 12-10-2024 Refill Liliam Alaniz MD Work Phone: [facility] [place] Comment on above: Refill Request Start: 10-04-2024 End: 12-04-2024 Follow-up encounter Katey Stanton APRN.CNS Work Phone: Internal [facility] Start: 10-04-2024 End: 10-04-[address] Sterling Thapa MD [facility] Work Phone: Start: 10-04-2024 End: 10-04-2024 [facility] [place] [place] Start: 09-23-2024 End: 09-23-2024 [facility] Start: 09-23-2024 End: 09-23-2024 Subsequent hospital visit by physician Screen Mammo [facility] Comment on above: Encounter for screen ing mammogram for breast cancer [Z12.31] Start: 09-16-2024 Follow-up status Dr. Liliam pandey MD Work Phone: [facility] Start: 09-16-2024 End: 09-16-2024 Emergency department patient visit Dr. Liliam Alaniz MD Work Phone: -Emergency Department Work Phone: Start: 09-16-2024 End: 09-16-2024 Patient encounter procedure Jozef DELA CRUZ [facility] Work Phone: Start: 09-16-2024 End: 09-16-2024 ambulatory Liliam Albrechthenry [place] [place] Start: 08-29-2024 End: 08-29-2024 Patient encounter procedure Reji Thomason YESICA Work Phone: [facility] Comment on above: COVID (Primary Dx) Start: 08-29-2024 End: 08-29-2024 ambulatory Liliam Alaniz MD Work Phone: [facility] Comment on above: COVID Start: 08-29-2024 End: 08-29-2024 Telephone encounter Liliam Alaniz MD Work Phone: [facility] Comment on above: Covid Positive Start: 06-14-2024 End: 06-14-2024 ambulatory LILIAM ALANIZ Facility:[facility] Start: 06-14-2024 End: 06-14-2024 Patient encounter procedure Liliam Alaniz MD Work Phone: [facility] Comment on above: Medicare annual well ness visit, subsequent (Primary Dx); Essential hypertension; Vitamin D deficiency; Generalized anxiety disorder; Paroxysmal atrial fibrillation (HCC); Psychophysiological insomnia; Encounter for immunization; Screening for depression; Encounter for screening mammogram for breast cancer Start: 06-10-2024 End: 06-10-2024 ambulatory LILIAM ALANIZ Facility:[facility] Start: 05-28-2024 End: 05-29-2024 Refill Liliam Alaniz MD Work Phone: [facility] [place] Comment on above: Refill Request Start: 04-30-2024 End: 04-30-2024 ambulatory Binta FLETCHER [place] [place] Start: 12-20-2023 End: 12-20-2023 Office outpatient visit 25 minutes Liliam Alaniz MD Work Phone: [facility] [place] Comment on above: Essential hypertensi on (Primary Dx); Ankle edema, bilateral; Psychophysiological insomnia; Vitamin D deficiency; Encounter for immunization; Encounter for long-term current use of medication Start: 12-08-2023 ambulatory Liliam ingram MD Work Phone: [facility] [place] Comment on above: labs Start: 11-06-2023 End: 11-06-[address] Liliam Alaniz Work Phone: [facility] Work Phone: Start: 11-06-2023 End: 11-06-[address] [facility] Start: 10-19-2023 End: 10-19-[address] Liliam Alaniz Work Phone: [facility] Work Phone: Start: 10-19-2023 End: 10-19-[address] [facility] Start: 09-26-2023 End: 09-26-[address] Liliam Alaniz Work Phone: [facility] Work Phone: Start: 08-29-2023 Documentation procedure Mammog jessica Coordinator [facility] Start: 08-29-2023 Letter encounter Mammography Coordinator [facility] Department Start: 04-13-2023 End: 04-13-2023 Emergency department patient visit Dr. Liliam Alaniz Work Phone: [facility]-Emergency Department Work Phone: Start: 03-07-2023 End: 03-07-[address] Liliam Alaniz Work Phone: [facility] Work Phone: Start: 03-07-2023 End: 03-07-[address] Liliam Alaniz Work Phone: [facility]-Pulmonary Services/Neurology Work Phone: Start: 02-22-2023 End: 02-22-[address] Liliam Alaniz Work Phone: [facility] Work Phone: Start: 12-16-2022 ambulatory Liliam ingram MD Work Phone: [facility] Comment on above: BLOODWORK Start: 12-14-2022 End: 12-14-2022 Patient encounter procedure Tuyet Golden DO Work Phone: Vascular Surgery Comment on above: Symptomatic spider v aricose vein (Primary Dx) Start: 12-12-2022 Refill Liliam ingram MD Work Phone: [facility] [place] Comment on above: Refill Request Start: 11-14-2022 Refill Liliam ingram MD Work Phone: [facility] [place] Comment on above: Refill Request Start: 11-11-2022 End: 11-11-2022 Patient encounter procedure Tuyet Golden DO Work Phone: Vascular Surgery Comment on above: Symptomatic spider v aricose vein (Primary Dx) Start: 09-21-2022 ambulatory Tuyet nieves DO Work Phone: Vascular Surgery Comment on above: RECENT APPT. Start: 09-16-2022 Telephone encounter Tuyet Golden DO Work Phone: Vascular Surgery Comment on above: Patient Question Start: 09-06-2022 End: 09-06-2022 Office outpatient visit 15 minutes Liliam Alaniz MD Work Phone: [facility] Comment on above: Elevated TSH (Primar y Dx); Essential hypertension; Paroxysmal atrial fibrillation (HCC) Start: 08-22-2022 ambulatory Liliam ingram MD Work Phone: [facility] Comment on above: thyroid test results Start: 08-18-2022 ambulatory Liliam ingram MD Work Phone: [facility] [place] Comment on above: results from thyroid blood work Start: 07-28-2022 End: 07-28-2022 Subsequent hospital visit by physician Screen Mammo [facility] Comment on above: Encounter for screen ing mammogram for breast cancer [Z12.31] Start: 07-08-2022 Telephone encounter Liliam shelton MD Work Phone: [facility] [place] Comment on above: Patient Update Start: 06-25-2022 End: 06-25-2022 ambulatory Liliam Alaniz MD Work Phone: [facility] [place] Comment on above: COVID-19 virus infec tion (Primary Dx) Start: 06-25-2022 End: 06-25-2022 Telephone encounter Liliam Alaniz MD Work Phone: [facility] Start: 06-22-2022 End: 06-22-2022 Office outpatient visit 40 minutes Liliam Alaniz MD Work Phone: [facility] [place] Comment on above: Psychophysiological insomnia (Primary Dx); Essential hypertension; Elevated TSH; Paroxysmal atrial fibrillation (HCC); Vitamin D deficiency; Generalized anxiety disorder; Encounter for long-term current use of medication; Encounter for screening mammogram for breast cancer Start: 05-18-2022 Refill Liliam ingram MD Work Phone: [facility] Comment on above: Refill Request Start: 03-15-2022 End: 03-15-2022 Subsequent hospital visit by physician Diagnostic Mammo [facility] Comment on above: Mammographic microca lcification [R92.0] Start: 02-22-2022 End: 02-22-2022 Office outpatient visit 25 minutes Liliam Alaniz MD Work Phone: [facility] Comment on above: Elevated TSH (Primar y Dx); Paroxysmal atrial fibrillation (HCC); Hot flashes; Vitamin D deficiency; Essential hypertension; Encounter for long-term current use of medication Start: 02-07-2022 End: 02-07-2022 Patient encounter procedure Katey Stanton APRN.RELIEF SALESPERSON Work Phone: [facility] [place] Comment on above: Paroxysmal atrial fi brillation (HCC) (Primary Dx); Palpitations; Elevated TSH Start: 01-31-2022 Telephone encounter Liliam shelton MD Work Phone: [facility] [place] Comment on above: question regarding ronak hymarisol (ER follow up scheduled); Appointment Start: 01-26-2022 End: 01-27-2022 Emergency department patient visit [facility]-Emergency Department Start: 11-08-2021 Telephone encounter Jake Boyle MD Work Phone: General Surgery Comment on above: Results Results (colonoscopy ); Opened In Error Start: 11-02-2021 End: 11-02-2021 Subsequent hospital visit by physician Jake Boyle MD Work Phone: Ambulatory Surgery Comment on above: Personal history of colonic polyps [Z86.010] Start: 09-03-2021 End: 09-03-[address] Liliam Alaniz Work Phone: [facility]-Breast Imaging - Biopsy/Stero Start: 08-19-2021 Telephone encounter Jake Boyle MD Work Phone: General Surgery Comment on above: 11/02/2021 Colonosco py Start: 06-08-2021 End: 06-08-[address] Liliam Alaniz Work Phone: [facility] Procedures Date Procedure Procedure Detail Performing Clinician Start: 01-13-[address] Liliam Alaniz MD Work Phone: Start: 12-23-2024 Lipid 1996 panel - Serum or Plasma Liliam Alaniz MD Work Phone: Start: 09-16-2024 Plain chest X-ray Dr. Johann Alaniz MD Work Phone: Start: 09-16-[address] Liliam Alaniz MD Work Phone: Start: 09-16-2024 Evaluation of diagnostic study results Dr. Liliam Alaniz MD Work Phone: Start: 06-14-2024 Adult depression screening assessment Liliam Alaniz MD Work Phone: Start: 06-10-2024 Lipid 1996 panel - Serum or Plasma Liliam Alaniz MD Work Phone: Start: 12-18-2023 Lipid 1996 panel - Serum or Plasma Liliam Alaniz MD Work Phone: Start: 06-05-2023 Lipid 1996 panel - Serum or Plasma Mammography Coordinator Start: 04-13-2023 Plain chest X-ray Dr. Johann Alaniz Work Phone: Start: 07-28-2022 End: 07-28-2022 Mammography Liliam Alaniz MD Work Phone: Start: 06-10-2022 Lipid 1996 panel - Serum or Plasma Screen Wstr Start: 03-15-2022 Diagnostic mammograp hy computer-aided detcj uni Jf Penn MD Work Phone: Start: 01-26-2022 Plain chest X-ray Start: 12-22-2021 Adult depression screening assessment Jake Boyle MD Work Phone: Start: 11-02-2021 Colon ca scrn not hi rsk ind Jake oByle MD Work Phone: Start: 11-02-2021 Colonoscopy Jake martel MD Work Phone: Start: 09-03-[address] Becca Alaniz Work Phone: Start: 07-06-2021 Mammography Jake martel MD Work Phone: Start: 12-13-2020 Adult depression screening assessment Jake Boyle MD Work Phone: Start: 02-12-2016 H/O: kidney donation History o f kidney donation Jake Boyle MD Work Phone: History of operative procedure on knee History of left knee replacement Dr. Liliam Alaniz Work Phone: Comment on above: 02/03/2021 Plan of Treatment Date Care Activity Detail Author Start: 11-03-2031 Colonoscopy COLONOSCOPY [facility] Start: 11-03-2031 COLORECTAL CANCER SCREENING COLORECTAL CANCER SCREENING [facility] Start: 11-03-2031 Screening for malign ant neoplasm of colon [facility] Start: 12-23-2029 Lipid panel Lipid Screening [facility] Start: 06-10-2029 Lipid panel Lipid Screening [facility] Start: 12-17-2028 Lipid panel [facility] Start: 06-05-2028 Lipid panel Lipid Screening [facility] Start: 12-24-2027 Diabetes Screening Diabetes Screenin g [facility] Start: 06-10-2027 Diabetes Screening Diabetes Screenin g [facility] Start: 06-10-2027 Lipid 1996 panel - S jim or Plasma Lipid Screening [facility] Start: 06-10-2027 LIPID SCREEN LIPID SCREEN [facility] Start: 2027 RSV Vaccine (1 - 1-d ose 75+ series) RSV Vaccine (1 - 1-dose 75+ series) [facility] Start: 12-21-2026 LIPID SCREEN LIPID SCREEN [facility] Start: 12-17-2026 Diabetes Screening Diabetes Screenin g [facility] Start: 11-02-2026 Colonoscopy COLONOSCOPY [facility] Start: 11-02-2026 COLORECTAL CANCER SCREENING COLORECTAL CANCER SCREENING [facility] Start: 06-05-2026 Diabetes Screening Diabetes Screenin g [facility] Start: 06-01-2026 LIPID SCREEN LIPID SCREEN [facility] Start: 12-29-2025 End: 12-29-2025 Patient encounter procedure 12/29/2025 11:00 AM EDT Office Visit [facility] [place] [address] [place], [place] [id number] Liliam Alaniz MD [address] [place], [place] [id number] 6 niki f/up [facility] [place] Comment on above: 6 niki f/up Start: 12-26-2025 Annual PCP Team Design Tech richy Disease Visit Annual PCP Team Chronic Disease Visit [facility] Start: 12-26-2025 Shingrix Vaccine (1 of 2) Gay grix Vaccine (1 of 2) [facility] Comment on above: Postponed from 04/07 (Declined at this time) Start: 12-26-2025 Urine microalbumin profile DTa P,Tdap,Td Vaccine (3 - Td or Tdap) [facility] Comment on above: Postponed from 11/20 (Declined at this time) Start: 09-23-2025 Screening for malign ant neoplasm of breast Mammogram Screening [facility] Start: 06-18-2025 End: 06-18-2025 Patient encounter procedure 06/18/2025 10:40 AM EST Office Visit [facility] [address] [place] [address] Liliam Alaniz MD [address] [place] [address] medicare wellness [facility] [place] Comment on above: medicare wellness Start: 06-14-2025 Annual PCP Team Design Tech richy Disease Visit Annual PCP Team Chronic Disease Visit [facility] Start: 06-14-2025 Depression Screening Depression Scre ening [facility] Start: 06-14-2025 Medicare Annual Well ness Visit Medicare Annual Wellness Visit [facility] Start: 06-10-2025 DIABETES SCREEN DIABETES SCREEN [facility] Start: 06-10-2025 Diabetes Screening Diabetes Screenin g [facility] Start: 03-03-2025 Influenza vaccination Influenz a Vaccine (Season Ended) [facility] Start: 02-07-2025 Evaluation of diagno stic study results [facility] Start: 01-31-2025 Evaluation of diagno stic study results [facility] Start: 01-20-2025 Evaluation of diagno [facility] study results [facility] Start: 01-15-2025 Evaluation of diagno [facility] study results [facility] Start: 01-13-2025 Patient discharge [facility] Start: 01-10-2025 Evaluation of diagno stic study results [facility] Start: 12-30-2024 Influenza vaccination Influenza Vacc ine (#1) [facility] Comment on above: Postponed from 03/03 (Declined at this time) Start: 12-27-2024 End: 12-27-2024 Patient encounter procedure 12/27/2024 1:40 PM EDT Office Visit [facility] [address] [place] [address] Liliam Alaniz MD [address] [facility] [place] [address] 6 month follow up [facility] Comment on above: 6 month follow up Start: 12-21-2024 DIABETES SCREEN DIABETES SCREEN [facility] Start: 12-19-2024 Annual PCP Team Baylee richy Disease Visit Annual PCP Team Chronic Disease Visit [facility] Start: 12-19-2024 BP Controlled (<130/80) BP Controlle d (<130/80) [facility] Start: 09-18-2024 End: 09-18-2024 Patient encounter procedure 09/18/2024 12:50 PM EDT Appointment Mammogram [address] [place] [address] Mammogram Start: 09-16-2024 End: 09-16-2024 [facility] Start: 09-16-2024 End: 09-16-2024 [facility] Start: 09-16-2024 Evaluation of diagno stic study results 12 Lead EKG performed by [facility] Start: 09-02-2024 End: 09-02-2024 Patient encounter procedure 09/02/2024 1:30 PM EST Appointment Mammogram [address] [place] [address] Encounter for screening mammogram for breast cancer [Z12.31] Mammogram Comment on above: Encounter for screen ing mammogram for breast cancer [Z12.31] Start: 08-28-2024 Screening for malign ant neoplasm of breast Mammogram Screening [facility] Start: 07-03-2024 Advance Directive Discussion Advance Directive Discussion [facility] Start: 06-14-2024 End: 06-14-2024 Patient encounter procedure [facility] Comment on above: 6 month follow up Medicare Wellness Start: 06-05-2024 Annual PCP Team Baylee richy Disease Visit Annual PCP Team Chronic Disease Visit [facility] Start: 06-05-2024 RSV Vaccine (1 - 1-d ose 60+ series) RSV Vaccine (1 - 1-dose 60+ series) [facility] Comment on above: Postponed from 04/07 (Declined at this time) Start: 06-01-2024 DIABETES SCREEN DIABETES SCREEN [facility] Start: 03-03-2024 Influenza vaccination [facility] Start: 12-31-2023 Influenza vaccination Influenza Vacc ine (#1) [facility] Comment on above: Postponed from 03/03 (Declined at this time) Start: 12-24-2023 Annual PCP Team Design Tech richy Disease Visit Annual PCP Team Chronic Disease Visit [facility] Start: 12-24-2023 BP Controlled (<130/80) BP Controlle d (<130/80) [facility] Start: 12-24-2023 Urine microalbumin profile DTa P,Tdap,Td Vaccine (3 - Td or Tdap) [facility] Comment on above: Postponed from 11/20 (Declined at this time) Start: 12-20-2023 End: 12-20-2023 Patient encounter procedure 12/20/2023 9:00 AM EDT Office Visit [facility] [address] [place] [address] Liliam Alaniz MD [address] [place] [address] 6 month follow up [facility] Comment on above: 6 month follow up Start: 12-15-2023 BP CONTROLLED (<130/80) BP CONTROLLE D (<130/80) [facility] Start: 12-15-2023 End: 12-15-2023 ambulatory 12/15/2023 1:15 PM EDT Results Only [facility] [address] [place] [address] [facility] Start: 12-14-2023 End: 03-14-2024 25-hydroxyvitamin D3 [Mass/volume] in Serum or Plasma VITAMIN D 25 HYDROXY Lab Routine Vitamin D deficiency Expected: 12/14/2023, Expires: 03/14/2024 [facility] Comment on above: Expected: 12/14/2023 , Expires: 03/14/2024 Start: 12-14-2023 End: 03-14-2024 CBC W Auto Differential panel - Blood COMPLETE BLOOD COUNT AND DIFFERENTIAL Lab Routine Encounter for therapeutic drug monitoring Expected: 12/14/2023, Expires: 03/14/2024 [facility] Work Phone: Comment on above: Expected: 12/14/2023 , Expires: 03/14/2024 Start: 12-14-2023 End: 03-14-2024 Comprehensive metabolic 2000 panel - Serum or Plasma COMPREHENSIVE METABOLIC PANEL Lab Routine Encounter for therapeutic drug monitoring Expected: 12/14/2023, Expires: 03/14/2024 [facility] Comment on above: Expected: 12/14/2023 , Expires: 03/14/2024 Start: 12-14-2023 End: 03-14-2024 LIPID PANEL, NONFASTING LIPID PANEL, NONFASTING Lab Routine Dyslipidemia Expected: 12/14/2023, Expires: 03/14/2024 [facility] Comment on above: Expected: 12/14/2023 , Expires: 03/14/2024 Start: 09-14-2023 BP CONTROLLED (<130/80) BP CONTROLLE D (<130/80) [facility] Start: 09-07-2023 ANNUAL PCP TEAM TAXI DRIVER RICHY DISEASE VISIT ANNUAL PCP TEAM CHRONIC DISEASE VISIT [facility] Start: 09-07-2023 BP CONTROLLED (<130/80) BP CONTROLLE D (<130/80) [facility] Start: 07-28-2023 Mammography [facility] Start: 07-03-2023 Advance Directive Discussion Advance Directive Discussion [facility] Start: 07-03-2023 Behavioral Health Screening Behavioral Health Screening [facility] Start: 07-03-2023 Depression Assessment Depression Ass essment [facility] Start: 06-25-2023 ANNUAL PCP TEAM TAXI DRIVER RICHY DISEASE VISIT ANNUAL PCP TEAM CHRONIC DISEASE VISIT [facility] Start: 06-22-2023 SHINGRIX VACCINE (1 of 2) GAY GRIX VACCINE (1 of 2) [facility] Comment on above: Postponed from 04/07 (Declined at this time) Start: 04-13-[address] [facility] Start: 03-03-2023 Covid-19 Vaccine () Covid-19 Vaccine () [facility] Start: 03-03-2023 Influenza vaccination C [facility] Start: 02-22-2023 ANNUAL PCP TEAM TAXI DRIVER RICHY DISEASE VISIT ANNUAL PCP TEAM CHRONIC DISEASE VISIT [facility] Start: 02-07-2023 BP CONTROLLED (<130/80) BP CONTROLLE D (<130/80) [facility] Start: 12-30-2022 Influenza vaccination INFLUENZA (#1) [facility] Comment on above: Postponed from 03/03 (Declined at this time) Start: 12-22-2022 Adult depression scr eening assessment DEPRESSION SCREENING [facility] Start: 12-22-2022 ANNUAL PCP TEAM TAXI DRIVER RICHY DISEASE VISIT ANNUAL PCP TEAM CHRONIC DISEASE VISIT [facility] Start: 12-22-2022 BP CONTROLLED (<130/80) BP CONTROLLE D (<130/80) [facility] Start: 12-22-2022 COVID-19 VACCINE (3 - Booster for Pfizer series) COVID-19 VACCINE (3 - Booster for Pfizer series) [facility] Comment on above: Postponed from 03/04 (Declined at this time) Postponed from 11/27 (Declined at this time) Start: 12-22-2022 PNEUMOCOCCAL: 65+ (1 - PCV) PNEUMOCOCCAL: 65+ (1 - PCV) [facility] Comment on above: Postponed from 04/07 (Declined at this time) Start: 12-22-2022 Urine microalbumin profile DTA P,TDAP,TD (3 - Td or Tdap) [facility] Comment on above: Postponed from 11/20 (Declined at this time) Start: 07-06-2022 Mammography MAMMOGRAM [facility] Start: 07-03-2022 ADVANCE DIRECTIVE DISCUSSION ADVANCE DIRECTIVE DISCUSSION [facility] Start: 07-03-2022 DEPRESSION ASSESSMENT DEPRESSION ASS ESSMENT [facility] Start: 06-21-2022 ANNUAL PCP TEAM TAXI DRIVER RICHY DISEASE VISIT ANNUAL PCP TEAM CHRONIC DISEASE VISIT [facility] Start: 06-21-2022 SHINGRIX VACCINE (1 of 2) GAY GRIX VACCINE (1 of 2) [facility] Comment on above: Postponed from 04/07 (Declined at this time) Start: 05-25-2022 End: 07-25-2022 25-hydroxyvitamin D3 [Mass/volume] in Serum or Plasma VITAMIN D 25 HYDROXY Lab Routine Vitamin D deficiency Expected: 05/25/2022 (Approximate), Expires: 07/25/2022 [facility] Work Phone: Comment on above: Expected: 05/25/2022 (Approximate), Expires: 07/25/2022 Start: 05-25-2022 End: 07-25-2022 CBC panel - Blood by Automated count CBC Lab Routine Essential hypertension Encounter for long-term current use of medication Expected: 05/25/2022 (Approximate), Expires: 07/25/2022 [facility] Work Phone: Comment on above: Expected: 05/25/2022 (Approximate), Expires: 07/25/2022 Start: 05-25-2022 End: 07-25-2022 Comprehensive metabolic 2000 panel - Serum or Plasma COMP METABOLIC PANEL Lab Routine Essential hypertension Encounter for long-term current use of medication Expected: 05/25/2022 (Approximate), Expires: 07/25/2022 [facility] Work Phone: Comment on above: Expected: 05/25/2022 (Approximate), Expires: 07/25/2022 Start: 05-25-2022 End: 07-25-2022 Hemoglobin A1c in Blood HGB A1C Lab Routine Encounter for long-term current use of medication Expected: 05/25/2022 (Approximate), Expires: 07/25/2022 [facility] Work Phone: Comment on above: Expected: 05/25/2022 (Approximate), Expires: 07/25/2022 Start: 05-25-2022 End: 07-25-2022 Lipid 1996 panel - Serum or Plasma LIPID PANEL BASIC Lab Routine Essential hypertension Expected: 05/25/2022 (Approximate), Expires: 07/25/2022 [facility] Work Phone: Comment on above: Expected: 05/25/2022 (Approximate), Expires: 07/25/2022 Start: 05-25-2022 End: 07-25-2022 Thyrotropin [Units/volume] in Serum or Plasma TSH BLD Lab Routine Elevated TSH Paroxysmal atrial fibrillation (HCC) Expected: 05/25/2022 (Approximate), Expires: 07/25/2022 [facility] Work Phone: Comment on above: Expected: 05/25/2022 (Approximate), Expires: 07/25/2022 Start: 05-25-2022 End: 07-25-2022 Thyroxine (T4) free [Mass/volume] in Serum or Plasma T4 FREE/FREE THYROX Lab Routine Elevated TSH Paroxysmal atrial fibrillation (HCC) Expected: 05/25/2022 (Approximate), Expires: 07/25/2022 [facility] Work Phone: Comment on above: Expected: 05/25/2022 (Approximate), Expires: 07/25/2022 Start: 05-25-2022 End: 07-25-2022 Triiodothyronine (T3) Free [Mass/volume] in Serum or Plasma T3 FREE BLD Lab Routine Elevated TSH Paroxysmal atrial fibrillation (HCC) Expected: 05/25/2022 (Approximate), Expires: 07/25/2022 [facility] Work Phone: Comment on above: Expected: 05/25/2022 (Approximate), Expires: 07/25/2022 Start: 05-10-2022 End: 07-10-2022 Thyrotropin [Units/volume] in Serum or Plasma TSH BLD Lab Routine Palpitations Expected: 05/10/2022 (Approximate), Expires: 07/10/2022 [facility] Work Phone: Comment on above: Expected: 05/10/2022 (Approximate), Expires: 07/10/2022 Start: 03-03-2022 Influenza vaccination [facility] Start: 02-07-2022 End: 04-09-2022 THYROID PEROXIDASE ANTIBODY BLOOD THYROID PEROXIDASE ANTIBODY BLOOD Lab Routine Paroxysmal atrial fibrillation (HCC) Palpitations Elevated TSH Expected: 02/07/2022, Expires: 04/09/2022 [facility] Work Phone: Comment on above: Expected: 02/07/2022 , Expires: 04/09/2022 Start: 01-31-2022 End: 04-02-2022 Thyrotropin [Units/volume] in Serum or Plasma TSH BLD Lab Routine Thyroid cyst Expected: 01/31/2022, Expires: 04/02/2022 [facility] Work Phone: Comment on above: Expected: 01/31/2022 , Expires: 04/02/2022 Start: 01-31-2022 End: 04-02-2022 Thyroxine (T4) free [Mass/volume] in Serum or Plasma T4 FREE/FREE THYROX Lab Routine Thyroid cyst Expected: 01/31/2022, Expires: 04/02/2022 [facility] Work Phone: Comment on above: Expected: 01/31/2022 , Expires: 04/02/2022 Start: 12-13-2021 Adult depression scr eening assessment DEPRESSION SCREENING [facility] Start: 11-20-2021 Urine microalbumin profile [facility] Start: 09-03-2021 Bx breast w/device 1 st lesion stereotactic guid BX BREAST 1ST LESION STRTCTC [facility] Work Phone: Start: 07-03-2021 ADVANCE DIRECTIVE DISCUSSION ADVANCE DIRECTIVE DISCUSSION [facility] Start: 07-03-2021 DEPRESSION ASSESSMENT DEPRESSION ASS ESSMENT [facility] Start: 03-04-2021 COVID-19 VACCINE (3 - Booster for Pfizer series) COVID-19 VACCINE (3 - Booster for Pfizer series) [facility] Start: 2012 RSV Vaccine (1 - 1-d ose 60+ series) RSV Vaccine (1 - 1-dose 60+ series) [facility] Start: 2002 Shingrix Vaccine (1 of 2) Gay grix Vaccine (1 of 2) [facility] Start: 1997 COLOGUARD (FIT-DNA) COLOGUARD (FIT-D NA) [facility] Start: [address] COLONOGRAPHY [facility] Start: 1997 FECAL OCCULT BLOOD FECAL OCCULT BLOO D [facility] Start: 1997 Screening for malign ant neoplasm of colon [facility] Start: 1997 SIGMOIDOSCOPY SIGMOIDOSCOPY [facility] Start: 1970 BP CONTROLLED (<130/80) BP CONTROLLE D (<130/80) [facility] Start: 1970 Depression Screening Depression Scre ening [facility] End: 12-19-2024 25-hydroxyvitamin D3 [Mass/volume] in Serum or Plasma VITAMIN D 25 HYDROXY Lab Routine Vitamin D deficiency Every 6 months for 90 Occurrences starting 12/20/2023 until 12/19/2024 [facility] Comment on above: Every 6 months for 9 0 Occurrences starting 12/20/2023 until 12/19/2024 End: 12-19-2024 Basic metabolic 2000 panel - Serum or Plasma BASIC METABOLIC PANEL Lab Routine Essential hypertension Encounter for long-term current use of medication 60 Occurrences starting 12/20/2023 until 12/19/2024 [facility] Comment on above: 60 Occurrences start ing 12/20/2023 until 12/19/2024 End: 12-19-2024 CBC panel - Blood by Automated count COMPLETE BLOOD COUNT Lab Routine Essential hypertension Every 6 months for 90 Occurrences starting 12/20/2023 until 12/19/2024 [facility] Comment on above: Every 6 months for 9 0 Occurrences starting 12/20/2023 until 12/19/2024 End: 12-19-2024 Comprehensive metabolic 2000 panel - Serum or Plasma COMPREHENSIVE METABOLIC PANEL Lab Routine Essential hypertension Every 6 months for 90 Occurrences starting 12/20/2023 until 12/19/2024 [facility] Work Phone: Comment on above: Every 6 months for 9 0 Occurrences starting 12/20/2023 until 12/19/2024 End: 07-14-2025 DBT Breast - bilateral screening [facility] Routine Encounter for screening mammogram for breast cancer 1 Occurrences starting 06/14/2024 until 07/14/2025 [facility] Work Phone: Comment on above: 1 Occurrences starti ng 06/14/2024 until 07/14/2025 DBT Breast - bilater al screening [facility] Radiology Routine Encounter for screening mammogram for breast cancer 09/23/2024 1:32 PM EDT [facility] Work Phone: End: 12-19-2024 Lipid 1996 panel - Serum or Plasma LIPID PANEL BASIC Lab Routine Essential hypertension Every 6 months for 90 Occurrences starting 12/20/2023 until 12/19/2024 [facility] Comment on above: Every 6 months for 9 0 Occurrences starting 12/20/2023 until 12/19/2024 End: 12-19-2024 LIPID PANEL, NONFASTING LIPID PANEL, NONFASTING Lab Routine Essential hypertension Every 6 months for 90 Occurrences starting 12/20/2023 until 12/19/2024 [facility] Comment on above: Every 6 months for 9 0 Occurrences starting 12/20/2023 until 12/19/2024 End: 07-22-2023 [facility] Routine Encounter for screening mammogram for breast cancer 1 Occurrences starting 06/22/2022 until 07/22/2023 [facility] Work Phone: Comment on above: 1 Occurrences starti ng 06/22/2022 until 07/22/2023 Patient Education [facility] Work Phone: Patient referral [facility] Work Phone: SURGICAL PATHOLOGY [facility] Work Phone: Comment on above: Release Upon Orderin g for 1 Occurrences starting 11/02/2021, 1 completed Thyrotropin [Units/v olume] in Serum or Plasma TSH BLD Lab Routine Thyroid cyst 02/02/2022 12:57 PM EDT [facility] Work Phone: End: 06-22-2023 Thyrotropin [Units/volume] in Serum or Plasma TSH BLD Lab Routine Elevated TSH Paroxysmal atrial fibrillation (HCC) Essential hypertension Encounter for long-term current use of medication Generalized anxiety disorder Every 2 months for 6 Occurrences starting 06/22/2022 until 06/22/2023 [facility] Work Phone: Comment on above: Every 2 months for 6 Occurrences starting 06/22/2022 until 06/22/2023 Thyroxine (T4) free [Mass/volume] in Serum or Plasma T4 FREE/FREE THYROX Lab Routine Thyroid cyst 02/02/2022 12:57 PM EDT [facility] Work Phone: End: 06-22-2023 Thyroxine (T4) free [Mass/volume] in Serum or Plasma T4 FREE/FREE THYROX Lab Routine Elevated TSH Paroxysmal atrial fibrillation (HCC) Essential hypertension Encounter for long-term current use of medication Generalized anxiety disorder Every 2 months for 6 Occurrences starting 06/22/2022 until 06/22/2023 [facility] Work Phone: Comment on above: Every 2 months for 6 Occurrences starting 06/22/2022 until 06/22/2023 End: 06-22-2023 Triiodothyronine (T3) Free [Mass/volume] in Serum or Plasma T3 FREE BLD Lab Routine Elevated TSH Paroxysmal atrial fibrillation (HCC) Essential hypertension Encounter for long-term current use of medication Generalized anxiety disorder Every 2 months for 6 Occurrences starting 06/22/2022 until 06/22/2023 [facility] Work Phone: Comment on above: Every 2 months for 6 Occurrences starting 06/22/2022 until 06/22/2023 Troponin T.cardiac [Mass/volume] in Serum or Plasma by High sensitivity method [facility] End: 03-02-2023 Us soft tissue head & neck real time imge docm US THYROID/PARATHYROID Radiology Routine Thyroid cyst Elevated TSH 1 Occurrences starting 01/31/2022 until 03/02/2023 [facility] Work Phone: Comment on above: 1 Occurrences starti ng 01/31/2022 until 03/02/2023 [facility] Immunizations Immunization Date Immunization Notes Care Provider Fa cili 10-02-2020 Covid (Pfizer) Dr. Liliam pandey Work Phone: [facility] 09-11-2020 Covid (Pfizer) Dr. Liliam pandey Work Phone: [facility] 06-16-2020 influenza, high-dose , quadrivalent vaccine (FLUZONE HIGH DOSE QUADRIVALENT) Jake Boyle MD Work Phone: [facility] 06-16-2020 influenza virus vaccine, unspecified formulation Screen Wstr [facility] 11-21-2011 tetanus toxoid, redu krystina diphtheria toxoid, and acellular pertussis vaccine, adsorbed Jake Boyle MD Work Phone: [facility] Work Phone: 04-08-2009 influenza virus vaccine, unspecified formulation Jake Boyle MD Work Phone: [facility] Work Phone: 08-31-1996 diphtheria and tetan us toxoids, adsorbed for pediatric use Jake Boyle MD Work Phone: [facility] Work Phone: Payers Date Payer Category Payer Self-pay [id number] 2017 [facility] ANTHEM ME DICARE SUPPLEMENT [id number] 2017 Medicare MEDICARE MEDICAR E A AND B [id number] 2017-Present [phone] [address] [address] [place] [address] Medicare [id number] 2017 Medicare [id number] 2017 Unknown ANTHEM ANTHEM ME DICARE SUPPLEMENT [id number] 2017-Present [phone] [address] [place] [address] Indemnity [id number] 2017 Unknown ANTHEM ANTHEM ME DICARE SUPPLEMENT [id number] 2017-Present [phone] [address] [place] [address] Indemnity [id number] 2017 Medicare [id number] 2017 Unknown [id number] 2009 Unknown [id number] Unknown [id number] Unknown [id number] Unknown [id number] Unknown [id number] Unknown [id number] Unknown [id number] Unknown [id number] Unknown [id number] Unknown [id number] Unknown [id number] Unknown [id number] Social History Date Type Detail Facility Start: 06-08-2021 End: 09-26-2023 Tobacco smoking status KSIS Unknown if ever smoked [facility] Start: 10-19-2017 None [facility] Start: 10-19-2017 Spouse/ Significant Other [facility] Start: 11-11-2020 Non-smoker [facility] Start: 1950 Sex Assigned At Female [facility] Start: 02-07-2022 End: 01-13-2025 Tobacco smoking status NHIS Ex-smoker [facility] Start: 07-03-1971 End: 07-03-1986 History of tobacco use Current smoker [facility] Work Phone: Start: 07-03-1971 End: 07-03-1986 History of tobacco use Cigarette Smoker [facility] Work Phone: Start: 11-02-2021 End: 08-29-2024 Alcohol intake Current non-drinker of alcohol (finding) [facility] Start: 06-15-2021 History SDOH Alcohol Frequency 1 [facility] Start: 06-15-2021 History SDOH Alcohol Std Drinks 98 [facility] Start: 06-15-2021 History SDOH Social Connections Phone 4 [facility] Start: 06-15-2021 End: 06-18-2022 History SDOH Social Connections Membership 2 [facility] Start: 06-15-2021 End: 06-18-2022 History SDOH Social Connections Living 3 [facility] Start: 06-15-2021 History SDOH Physical Activity DPW 7 [facility] Start: 06-15-2021 History SDOH Financial 5 [facility] Start: 10-06-2019 Education 21 [facility] Start: 11-28-2012 End: 02-07-2022 Tobacco Comment Quit 1986 [facility] Start: 10-23-2021 End: 03-15-2022 Exposure to SARS-CoV-2 (event) Not sure [facility] Work Phone: Start: 02-07-2022 End: 11-11-2022 Cigarettes smoked current (pack per day) - Reported 1 [facility] Start: 02-07-2022 End: 06-14-2024 Tobacco use and exposure Smokeless tobacco non-user [facility] Work Phone: Start: 06-17-2022 End: 11-11-2022 Social connection and isolation panel [facility] In a typical week, h ow many times do you talk on the telephone with family, friends, or neighbors? Patient refused [facility] Are you now , , , , never or living with a partner? Refused [facility] Do you feel stress - tense, restless, nervous, or anxious, or unable to sleep at night because your mind is troubled all the time - these days [OSQ] Only a little [facility] (I/We) worried richelle er (my/our) food would run out before (I/we) got money to buy more. DK or Refused [facility] Start: 10-07-2019 Gender identity Identifies as female gender (finding) [facility] Start: 10-07-2019 Sexual orientation Heterosexual (finding) [facility] How often to you hav e a drink containing alcohol? Never [facility] Start: 09-16-2024 Sex Female (finding) [facility] Do you belong to any clubs or organizations such as confucianism groups, unions, [employer]Time [employer] or athletic groups, or school groups? No [facility] Are you now , , , , never or living with a partner? [facility] Do you feel stress - tense, restless, nervous, or anxious, or unable to sleep at night because your mind is troubled all the time - these days [OSQ] Not at all [facility] Medical Equipment Procedure Code Equipment Code Equipment Origin al Text Equipment Identifier Dates CEMENT,BONE SHLOMO H 1/2 BATCH FDA Start: 02-03-2021 TRIATH CRUC MERY INING FEMORAL FDA Start: 02-03-2021 ([id number]) Coated knee tibi a prosthesis [id number] FDA Start: 02-03-2021 ([id number]) Polyethylene pat juan m prosthesis [id number] FDA Start: 02-03-2021 ([id number]) Tibial insert [id number] FDA Start: 02-03-2021 CEMENT,BONE SHLOMO H 1/2 BATCH FDA Start: 02-03-2021 TRIATH CRUC MERY INING FEMORAL FDA Start: 02-03-2021 CEMENT,BONE SHLOMO H 1/2 BATCH FDA Start: 02-03-2021 TRIATH CRUC MERY INING FEMORAL FDA Start: 02-03-2021 CEMENT,BONE SHLOMO H 1/2 BATCH FDA Start: 02-03-2021 TRIATH CRUC MERY INING FEMORAL FDA Start: 02-03-2021 CEMENT,BONE SHLOMO H 1/2 BATCH FDA Start: 02-03-2021 TRIATH CRUC MERY INING FEMORAL FDA Start: 02-03-2021 CEMENT,BONE SHLOMO H 1/2 BATCH FDA Start: 02-03-2021 TRIATH CRUC MERY INING FEMORAL FDA Start: 02-03-2021 CEMENT,BONE SHLOMO H 1/2 BATCH FDA Start: 02-03-2021 TRIATH CRUC MERY INING FEMORAL FDA Start: 02-03-2021 CEMENT,BONE SHLOMO H 1/2 BATCH FDA Start: 02-03-2021 TRIATH CRUC MERY INING FEMORAL FDA Start: 02-03-2021 CEMENT,BONE SHLOMO H 1/2 BATCH FDA Start: 02-03-2021 TRIATH CRUC MERY INING FEMORAL FDA Start: 02-03-2021 CEMENT,BONE SHLOMO H 1/2 BATCH FDA Start: 02-03-2021 TRIATH CRUC MERY INING FEMORAL FDA Start: 02-03-2021 CEMENT,BONE SHLOMO H 1/2 BATCH FDA Start: 02-03-2021 TRIATH CRUC MERY INING FEMORAL FDA Start: 02-03-2021 CEMENT,BONE SHLOMO H 1/2 BATCH FDA Start: 02-03-2021 TRIATH CRUC MERY INING FEMORAL FDA Start: 02-03-2021 CEMENT,BONE SHLOMO H 1/2 BATCH FDA Start: 02-03-2021 TRIATH CRUC MERY INING FEMORAL FDA Start: 02-03-2021 Functional Status Date Assessment Result Facility 01-05-2015 Are you deaf, or do you have serious difficulty hearing No 01/05/2015 1:28 PM Jessica Waggoner LPN No [facility] 01-05-2015 Are you blind, or do you have serious difficulty seeing, even when wearing glasses No 01/05/2015 1:28 PM Jessiac Waggoner LPN No [facility] 01-05-2015 Do you have serious difficulty walking or climbing stairs No 01/05/2015 1:28 PM Jessica Waggoner LPN No [facility] 01-05-2015 Do you have difficul ty dressing or bathing No 01/05/2015 1:28 PM Jessica Waggoner LPN No [facility] 01-05-2015 Because of a physica l, mental, or emotional condition, do you have difficulty doing errands alone such as visiting a physician's office or shopping No 01/05/2015 1:28 PM EDT Jessica Benoit LPN No [facility] Mental Status Date Assessment Result Facility 09-16-2024 Cognitive function Awake;Alert;A ppropriate; Follows Commands [facility] Work Phone: 09-16-2024 Cognitive function Arousable To Voice/Nam e [facility] Work Phone: 04-13-2023 Cognitive function Awake;Alert;A ppropriate; Follows Commands [facility] Work Phone: 01-05-2015 Because of a physica l, mental, or emotional condition, do you have serious difficulty concentrating, remembering, or making decisions No 01/05/2015 1:28 PM EDT Jessica Benoit LPN No [facility] Clinical Notes 04-26-2010 to 01-13-2025 Patient InstructionsLiliam Alaniz MD - 12/26/2024 10:20 AM EDTTelephone Encounter - Liliam Alaniz MD - 12/09/2024 6:33 PM EDTTelephone Encounter - Liliam Alaniz MD - 12/09/2024 6:33 PM EDT Note Date & Type Note Facility 01-13-2025 Procedure note [facility] 01-13-2025 Procedure note [facility] 12-26-2024 Instructions Liliam Alaniz MD - 12/26/2024 11:24 AM EDT - Continue taking sertraline at your current dose; refill has been sent to [facility] and will auto-refill in May. - Fill your new zolpidem (Ambien) prescription--90 tablets with refills--at [facility]; you may medicinal plant picker a 30-day supply once your previous fill is 30 days old. - Stop taking Lasix; it has been removed from your active medications. - Discontinue Bactroban (mupirocin) cream; you no longer need this. - Continue sotalol twice daily as prescribed; do not adjust your dose without approval from your upsetter helper. - Keep taking your vitamin D supplement to maintain your improved levels. - Aim for a blood pressure of 110-120 mmHg by: Following a balanced diet, staying well hydrated, and getting adequate sleep Managing stress with deep-breathing exercises (inhale for 4 seconds, exhale for 8-12 seconds) - Exercise at least 20 minutes a day, six days a week. You can do chair exercises, gentle low-impact movements, walking as tolerated, or even floss dance moves while you watch TV. - Eat more [id number] foods--such as fatty fish, flaxseed, edamame, and walnuts--to support your good cholesterol levels. - Schedule a consultation with an door liner (EP) to discuss AFib ablation. Once you ve chosen a provider, let us know so we can send the referral and your records. - At your EP visit, ask about timing of ablation versus knee surgery and obtain formal cardiology clearance for your knee replacement. - Your six-month wellness check is scheduled for December 06. Standing lab orders will be in place--be sure to have your blood work done before that appointment. Your alkaline phosphatase will be rechecked as part of those labs. - When you re ready for right knee evaluation or replacement, schedule that with your orthopedic surgeon and confirm cardiology clearance before surgery. documented in this encounter [facility] 12-26-2024 History of Present illness Narrative This note was created using [employer]. Subjective Winston Ohara is a 74 year old female. SUBJECTIVE: Winston Ohara is a 74-year-old female with a history of right knee osteoarthritis and atrial fibrillation, presenting for a 6-month follow-up. Winston reports worsening right knee pain, which she describes as bone on bone with associated clicking. She believes this is affecting her gait, leading to secondary back and hip pain. She has not had recent imaging for the right knee but mentions a previous x-ray that showed significant arthritis. She is considering knee replacement surgery and inquires about the impact of her knee condition on her overall alignment and pain. Winston also reports recurrent episodes of atrial fibrillation, with the most recent episode occurring in August, requiring cardioversion. She is currently on sotalol, taken once in the morning and once at night, and inquires about the possibility of adjusting the dosage during episodes of atrial fibrillation. She expresses uncertainty about undergoing an ablation procedure recommended by her upsetter helper, Dr. Ling, and seeks advice on whether to prioritize the ablation or knee surgery. She also mentions a history of COVID-19, which she believes may have triggered her atrial fibrillation episodes. She is currently taking sertraline for anxiety and depression, which she reports helps manage her emotions. She also takes losartan for blood pressure control and inquires about ways to further lower her blood pressure. She denies current swelling issues and has not been taking Lasix. She has a prescription for Ambien and requests a refill. 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 Thapa Peptic ulcer, unspecified site, unspecified as acute or chronic, without mention of hemorrhage, perforation, or obstruction Personal history of colonic polyps Thyroid cyst 09/24/2014 Current Outpatient Medications Medication Sig cholecalciferol, vitamin D3, 62.5 mcg (2,500 unit) chew Take 2 capsules by mouth daily after dinner. (actually chewable tablets) losartan (COZAAR) 100 mg tablet Take 100 mg by mouth once daily. XARELTO 20 mg tablet Take 1 tablet by mouth once daily. (cardiology filling) sotalol (BETAPACE) 80 mg tablet Take 80 mg by mouth twice daily. fluticasone (FLONASE) 50 mcg/actuation nasal spray Use 2 Sprays in each nostril once daily. acetaminophen (TYLENOL) 500 mg tablet EVERY 6 HOURS NEEDED bismuth subsalicylate(PEPTO-BISMOL 262 MG TAB) Takes 2 pills daily as needed for IBS flare up sertraline (ZOLOFT) 25 mg tablet Take 1 tablet by mouth once daily. [START ON 01/11/2025] zolpidem (AMBIEN) 5 mg tablet Take 1 tablet by mouth at bedtime as needed for sedation for up to 180 days. Patient should start on January 11, 2025. No current facility-administered medications for this visit. Review of Systems Objective BP 136/62 (BP Site: Left Arm, BP Position: Sitting, BP Cuff Size: Large Adult) Pulse 88 Resp 14 Wt 70.1 kg (154 lb 8.7 oz) LMP 08/31/2009 SpO2 98% BMI 26.53 kg/m Last 5 Encounter Wt Readings: Date: Wt: 12/26/2024 70.1 kg (154 lb 8.7 oz) 06/14/2024 69 kg (152 lb 1.9 oz) 12/20/2023 69.9 kg (154 lb) 06/05/2023 68 kg (150 lb) 12/23/2022 67.6 kg (149 lb) No waist measurement recorded Estimated body mass index is 26.53 kg/m as calculated from the following: Height as of 06/14/24: 162.6 cm (5' 4). Weight as of this encounter: 70.1 kg (154 lb 8.7 oz). Last 5 Encounter BP Readings: Date: BP: 12/26/2024 136/62 08/29/2024 141/71 06/14/2024 134/68 12/20/2023 114/64 06/05/2023 138/74 Physical Exam Constitutional: Appearance: Normal appearance. HENT: Head: Normocephalic. Eyes: Conjunctiva/sclera: Conjunctivae normal. Cardiovascular: Rate and Rhythm: Normal rate and regular rhythm. Occasional Extrasystoles are present. Heart sounds: Normal heart sounds. Pulmonary: Effort: Pulmonary effort is normal. Breath sounds: Normal breath sounds. Musculoskeletal: Right lower leg: No edema. Left lower leg: No edema. Skin: General: Skin is warm and dry. Neurological: General: No focal deficit present. Mental Status: She is alert and oriented to person, place, and time. Psychiatric: Attention and Perception: Attention and perception normal. Mood and Affect: Mood and affect normal. Speech: Speech normal. Behavior: Behavior normal. Thought Content: Thought content normal. Judgment: Judgment normal. Latest Ref Rng 06/05/2023 12/18/2023 06/10/2024 12/23/2024 WBC 3.70 - 11.00 k/uL 6.97 5.13 5.73 5.45 RBC 3.90 - 5.20 m/uL 4.59 4.10 4.46 4.33 Hemoglobin 11.5 - 15.5 g/dL 14.2 12.5 13.5 13.2 Hematocrit 36.0 - 46.0 % 43.1 38.8 42.8 40.6 MCV 80.0 - 100.0 fL 93.9 94.6 96.0 93.8 MCH 26.0 - 34.0 pg 30.9 30.5 30.3 30.5 MCHC 30.5 - 36.0 g/dL 32.9 32.2 31.5 32.5 RDW-CV 11.5 - 15.0 % 13.0 13.0 13.2 13.0 Platelet Count 150 - 400 k/uL 222 192 203 194 MPV 9.0 - 12.7 fL 10.3 10.4 10.2 10.2 Neut% % 67.8 Abs Neut (ANC) 1.45 - 7.50 k/uL 3.48 Lymph% % 19.5 Abs Lymph 1.00 - 4.00 k/uL 1.00 Blanco% % 7.8 Abs Blanco <0.87 k/uL 0.40 Eosin% % 3.3 Abs Eosin <0.46 k/uL 0.17 Baso% % 1.2 Abs Baso <0.11 k/uL 0.06 Immature Gran % % 0.4 IMMATURE GRANS (ABS) <0.10 k/uL <0.03 NRBC /100 WBC 0.0 Absolute nRBC <0.01 k/uL <0.01 <0.01 <0.01 <0.01 DTYPE Auto Protein, Total 6.3 - 8.0 g/dL 7.1 6.6 6.9 6.9 Albumin 3.9 - 4.9 g/dL 4.2 4.0 4.3 4.2 Calcium 8.5 - 10.2 mg/dL 10.7 (H) 9.8 9.8 9.8 Bilirubin, Total 0.2 - 1.3 mg/dL 0.6 0.7 0.7 0.7 Alkaline Phosphatase 34 - 123 U/L 122 151 (H) 131 (H) 136 (H) AST 13 - 35 U/L 31 44 (H) 29 24 ALT 7 - 38 U/L 12 35 18 12 Glucose 74 - 99 mg/dL 84 93 89 92 BUN 7 - 21 mg/dL 18 15 17 18 Creatinine 0.58 - 0.96 mg/dL 0.81 0.89 0.76 0.83 Sodium 136 - 144 mmol/L 140 140 140 141 Potassium 3.7 - 5.1 mmol/L 5.5 (H) 4.1 4.4 4.8 Chloride 98 - 107 mmol/L 105 107 104 107 CO2 22 - 30 mmol/L 22 23 24 25 Anion Gap 8 - 15 mmol/L 13 10 12 9 eGFR >=60 mL/min/1.73m 78 69 83 75 Cholesterol, Total <200 mg/dL 210 (H) Triglyceride <150 mg/dL 132 HDL Cholesterol >39 mg/dL 58 LDL Cholesterol, Calculated <100 mg/dL 129 (H) Non HDL Cholesterol <130 mg/dL 152 (H) VLDL Cholesterol <30 mg/dL 23 TC:HDL Ratio <5.10 3.62 LDL:HDL Ratio <2.54 2.22 Fasting Time hrs 12 Total Cholesterol, Nonfasting <200 mg/dL 241 (H) 200 (H) 221 (H) Triglycerides, Nonfasting <150 mg/dL 161 (H) 120 122 HDL Cholesterol, Nonfasting >39 mg/dL 60 52 60 LDL Cholesterol Calculated, Nonfasting <100 mg/dL 149 (H) 124 (H) 137 (H) Non HDL Cholesterol, Nonfasting <130 mg/dL 181 (H) 148 (H) 161 (H) VLDL Cholesterol, Nonfasting <30 mg/dL 32 (H) 24 24 Total Chol/HDL Ratio, Nonfasting <5.10 mg/dL 4.02 3.85 3.68 LDL/HDL Ratio, Nonfasting <2.54 mg/dL 2.48 2.38 2.28 Vitamin D 25 Hydroxy 31.0 - 80.0 ng/mL 43.9 37.7 27.4 (L) 36.6 TSH 0.270 - 4.200 mIU/L 2.110 Free T4 0.9 - 1.7 ng/dL 1.4 Free T3 2.3 - 4.1 pg/mL 2.5 Legend: (H) High (L) Low Assessment and Plan ASSESSMENT AND PLAN # Psychophysiological insomnia (F51.04) - Managed with Zolpidem; reordered 90-day supply with refill to [facility]. - Continue current regimen. # Paroxysmal atrial fibrillation (HCC) (I48.0) - Recent episode post-COVID; currently in normal sinus rhythm with occasional ectopic beats. - Managed with Sotalol; advised against altering dosage without cardiology consultation. - Discussed potential benefits of ablation to maintain sinus rhythm and reduce medication dependency. - Consider referral to Dr. Gil, scientific specialist at [facility], or other [facility] provider, for evaluation and second opinion. - Advised to schedule an appointment with scientific specialist to discuss ablation and obtain surgical clearance for knee procedure. - Educated on stress management techniques, including breathing exercises, to prevent AFib episodes. # Hypercholesterolemia (E78.00) - LDL improved to 129 mg/dL; HDL remains >50 mg/dL; triglycerides <150 mg/dL. - Discussed dietary modifications to increase omega-3 intake, including marine fish, flaxseed, edamame, and walnuts. - Advised regular exercise to improve lipid profile and reduce ASCVD risk. - Continue monitoring lipid levels; no pharmacological intervention initiated at this time. # Chronic pain of right knee (M25.561) # Primary osteoarthritis of right knee (M17.11) - Confirmed diagnosis of osteoarthritis with bone on bone changes and crepitus. - Discussed impact of knee malalignment on gait and secondary pain in hip and back. - Advised to consult with orthopedist for evaluation and potential surgical intervention. - Recommended concurrent management of AFib and knee issues; obtain cardiology clearance for surgery. # Essential hypertension (I10) - Blood pressure readings improved; current medication regimen includes Losartan. - Discussed lifestyle modifications to maintain BP in the 110-120 mmHg range, including diet, exercise, hydration, and stress management. - Continue current antihypertensive therapy. # Vitamin D deficiency (E55.9) - Recent labs show improved vitamin D levels. - Continue current supplementation. Liliam Alaniz MD Recording using [employer] software for draft documentation of the visit was discussed with the patient/authorized indirect sales representative; all questions welcomed and answered. Patient/authorized indirect sales representative agreed to proceed documented in this encounter [facility] 12-26-2024 Note HNO ID: [id number] Author: LILIAM ALANIZ MD Service: ? Author Type: Physician Type: Progress Notes Filed: 12/26/2024 11:24 Note Text: This note was created using [employer]. Subjective Winston Ohara is a 74 year old female. SUBJECTIVE: Winston Ohara is a 74-year-old female with a history of right knee osteoarthritis and atrial fibrillation, presenting for a 6-month follow-up. Winston reports worsening right knee pain, which she describes as bone on bone with associated clicking. She believes this is affecting her gait, leading to secondary back and hip pain. She has not had recent imaging for the right knee but mentions a previous x-ray that showed significant arthritis. She is considering knee replacement surgery and inquires about the impact of her knee condition on her overall alignment and pain. Winston also reports recurrent episodes of atrial fibrillation, with the most recent episode occurring in August, requiring cardioversion. She is currently on sotalol, taken once in the morning and once at night, and inquires about the possibility of adjusting the dosage during episodes of atrial fibrillation. She expresses uncertainty about undergoing an ablation procedure recommended by her upsetter helper, Dr. Ling, and seeks advice on whether to prioritize the ablation or knee surgery. She also mentions a history of COVID-19, which she believes may have triggered her atrial fibrillation episodes. She is currently taking sertraline for anxiety and depression, which she reports helps manage her emotions. She also takes losartan for blood pressure control and inquires about ways to further lower her blood pressure. She denies current swelling issues and has not been taking Lasix. She has a prescription for Ambien and requests a refill. 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 Thapa Peptic ulcer, unspecified site, unspecified as acute or chronic, without mention of hemorrhage, perforation, or obstruction Personal history of colonic polyps Thyroid cyst 09/24/2014 Current Outpatient Medications Medication Sig cholecalciferol, vitamin D3, 62.5 mcg (2,500 unit) chew Take 2 capsules by mouth daily after dinner. (actually chewable tablets) losartan (COZAAR) 100 mg tablet Take 100 mg by mouth once daily. XARELTO 20 mg tablet Take 1 tablet by mouth once daily. (cardiology filling) sotalol (BETAPACE) 80 mg tablet Take 80 mg by mouth twice daily. fluticasone (FLONASE) 50 mcg/actuation nasal spray Use 2 Sprays in each nostril once daily. acetaminophen (TYLENOL) 500 mg tablet EVERY 6 HOURS NEEDED bismuth subsalicylate(PEPTO-BISMOL 262 MG TAB) Takes 2 pills daily as needed for IBS flare up sertraline (ZOLOFT) 25 mg tablet Take 1 tablet by mouth once daily. [START ON 01/11/2025] zolpidem (AMBIEN) 5 mg tablet Take 1 tablet by mouth at bedtime as needed for sedation for up to 180 days. Patient should start on January 11, 2025. No current facility-administered medications for this visit. Review of Systems Objective BP 136/62 (BP Site: Left Arm, BP Position: Sitting, BP Cuff Size: Large Adult) Pulse 88 Resp 14 Wt 70.1 kg (154 lb 8.7 oz) LMP 08/31/2009 SpO2 98% BMI 26.53 kg/m? Last 5 Encounter Wt Readings: Date: Wt: 12/26/2024 70.1 kg (154 lb 8.7 oz) 06/14/2024 69 kg (152 lb 1.9 oz) 12/20/2023 69.9 kg (154 lb) 06/05/2023 68 kg (150 lb) 12/23/2022 67.6 kg (149 lb) No waist measurement recorded Estimated body mass index is 26.53 kg/m? as calculated from the following: Height as of 06/14/24: 162.6 cm (5' 4). Weight as of this encounter: 70.1 kg (154 lb 8.7 oz). Last 5 Encounter BP Readings: Date: BP: 12/26/2024 136/62 08/29/2024 141/71 06/14/2024 134/68 12/20/2023 114/64 06/05/2023 138/74 Physical Exam Constitutional: Appearance: Normal appearance. HENT: Head: Normocephalic. Eyes: Conjunctiva/sclera: Conjunctivae normal. Cardiovascular: Rate and Rhythm: Normal rate and regular rhythm. Occasional Extrasystoles are present. Heart sounds: Normal heart sounds. Pulmonary: Effort: Pulmonary effort is normal. Breath sounds: Normal breath sounds. Musculoskeletal: Right lower leg: No edema. Left lower leg: No edema (more content not included)... [facility] 12-09-2024 Telephone encounter Note The following approved medication requests have been transmitted electronically. Requested Prescriptions Signed Prescriptions Disp Refills zolpidem (AMBIEN) 5 mg tablet 90 tablet 1 Sig: Take 1 tablet by mouth at bedtime as needed for sedation for up to 180 days. Patient should start on December 15, 2024. Authorizing Provider: LILIAM ALANIZ MD [facility] 12-09-2024 Miscellaneous Notes The following approved medication requests have been transmitted electronically. Requested Prescriptions Signed Prescriptions Disp Refills zolpidem (AMBIEN) 5 mg tablet 90 tablet 1 Sig: Take 1 tablet by mouth at bedtime as needed for sedation for up to 180 days. Patient should start on December 15, 2024. Authorizing Provider: LILIAM ALANIZ MD Prescription Refill Information The patient has been identified by name and date of : Yes Caregiver verified no other encounters exist for this prescription request: Yes Caregiver confirmed with patient/requestor that no other refills are due, in the near future, with this provider at this time: Yes The last office visit in the department: 06/14/24 Does the patient have a future office visit with this provider/department: Yes 12/27/24 Requested Prescriptions Pending Prescriptions Disp Refills zolpidem (AMBIEN) 5 mg tablet 90 tablet 1 Sig: Take 1 tablet by mouth at bedtime as needed for sedation for up to 180 days. Jessica Benoit LPN December 09, 2024 1:51 PM documented in this encounter [facility] 12-09-2024 Telephone encounter Note Prescription Refill Information The patient has been identified by name and date of : Yes Caregiver verified no other encounters exist for this prescription request: Yes Caregiver confirmed with patient/requestor that no other refills are due, in the near future, with this provider at this time: Yes The last office visit in the department: 06/14/24 Does the patient have a future office visit with this provider/department: Yes 12/27/24 Requested Prescriptions Pending Prescriptions Disp Refills zolpidem (AMBIEN) 5 mg tablet 90 tablet 1 Sig: Take 1 tablet by mouth at bedtime as needed for sedation for up to 180 days. Jessica eBnoit LPN December 09, 2024 1:51 PM [facility] 10-04-2024 Progress note Formatting of t his note might be different from the original. Benign findings, 1 year screening mammogram advised. [facility] 10-04-2024 Miscellaneous Notes Benign findings, 1 year screening mammogram advised. documented in this encounter [facility] 10-04-2024 Evaluation note Diagnosis Onset Date Resolution Essential (primary) hypertension chronic October 04, 2024 1:39pm Paroxysmal atrial fibrillation October, chronic October 04, 2024 1:39pm Paroxysmal atrial flutter October, chronic January 10, 2025 9:23am [facility] Work Phone: 1(927) 546-880504-04-2025 Evaluation note* Diagnosis Onset Date Resolution Status Admit Date Essential (primary) hypertension chronic October 04, 2024 1:39pm Paroxysmal atrial fibrillation October, 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 October 04, 2024 1:39pm Paroxysmal atrial flutter October, chronic January 10, 2025 9:23am Paroxysmal atrial flutter October, chronic January 13, 2025 10:24am [facility] Work Phone: [phone] History of Present illness Narrative* Dena Bravo Mammo Tech - 09/23/2024 1:30 PM EDT Radiology Service Progress Note PATIENT NAME: Winston Ohara DATE OF SERVICE: September 23, 2024 TIME: 1:44 PM PATIENT IDENTITY VERIFICATION COMPLETED USING TWO (2) IDENTIFIERS: Name and Date of confirmedby patient verbally. FALL SCREENING: Has the patient had 2 falls in the last year or 1 fall with injury or currently using an Ambulatory Assistive Device (Walker, Cane, Wheelchair, Crutches, etc.)? No PATIENT GENDER DATA: Assigned female at . status: : No status:NO. PATIENT RELEVANT IMPLANT DATA REVIEWED: Not Applicable PATIENT PRESENTS WITH AN IMPLANTABLE OR ATTACHED MAKING DEPARTMENT PREPARER: No RADIOLOGY DEPARTMENT: Mammography PERIPHERAL IV DATA: Not applicable SIGNED BY: Sean Gutierrez September 23, 2024 1:44 PM [facility] NoteHNO ID: [id number] Author: DENA BRAVO Mammo Tech Service: ? Author Type: Automotive Sales Associate Type: Progress Notes Filed: 09/23/2024 13:44 Note Text: Radiology Service Progress Note PATIENT NAME: iWnston Ohara DATE OF SERVICE: September 23, 2024 TIME: 1:44 PM PATIENT IDENTITY VERIFICATION COMPLETED USING TWO (2) IDENTIFIERS: Name and Date of confirmed by patient verbally. FALL SCREENING: Has the patient had 2 falls in the last year or 1 fall with injury or currently using an Ambulatory Assistive Device (Walker, Cane, Wheelchair, Crutches, etc.)? No PATIENT GENDER DATA: Assigned female at . status: : No status: NO. PATIENT RELEVANT IMPLANT DATA REVIEWED: Not Applicable PATIENT PRESENTS WITH AN IMPLANTABLE OR ATTACHED MAKING DEPARTMENT PREPARER: No RADIOLOGY DEPARTMENT: Mammography PERIPHERAL IV DATA: Not applicable SIGNED BY: Dena Bravo HAULo [employer] September 23, 2024 1:44 [facility]03-17-2025 Radiology Diagnostic study note [facility] [address] [place], [place] [address] Chest 1 View (Portable) MR#: [id number] Acct: [id number] Name: WINSTON OHARA Rep #: [id number] : 1950 F 74 From: Gerard Vaca MD PCP: Dr. Liliam Alaniz MD Status: RE G ER Study:Chest 1 View (Portable) Date of Exam: 09/16/24 Exam# [id number] Ordering Dr: Audie Nieves DO PROCEDURE: CHEST 1 VIEW (PORTABLE) 09/16/2024 REASON FOR EXAM: CHEST PAIN TECHNIQUE: Frontal view of the chest. COMPARISON: 06 February 2021 FINDINGS: The heart size is normal. The lungs are clear. Demineralization of the bones. Stable examination when compared to prior. RAD/Chest 1 View (Portable) IMPRESSION: No measurable change. Reading Location: [id number] CC: Dr. Lilima Alaniz MD; Dr. Audie Nieves DO ~ Road Cleaner: Signed [facility]02-27-2025 Instructions* Patient Instructions* Reji Thomason APRN.PRECISION DEVICES INSPECTOR/TESTER - 08/29/2024 7:56 PM EST Fact Sheet for Patients And Caregivers Emergency Use Authorization (EUA) Of LAGEVRIO (molnupiravir) capsules For Coronavirus Disease 2019 (COVID-19) What is the most important information I should know about LAGEVRIO? LAGEVRIO may cause serious side effects, including: LAGEVRIO may cause harm to your unborn baby. It is not known if LAGEVRIO will harm your baby if youtake LAGEVRIO during . LAGEVRIO is not recommended for use in . LAGEVRIO has not been studied in . LAGEVRIO was studied in animals only. When LAGEVRIO was given to animals, LAGEVRIO caused harm to their unborn babies. You and your healthcare provider may decide that you should take LAGEVRIO during if thereare no other COVID-19 treatment options approved or authorized by the FDA that are accessible or clinically appropriate for you. If you and your healthcare provider decide that you should take LAGEVRIO during , you and your healthcare provider should discuss the known and potential benefits and the potential risks of taking LAGEVRIO during . For individuals who are able to become : You should use a reliable method of control (contraception) consistently and correctly duringtreatment with LAGEVRIO and for 4 days after the last dose of LAGEVRIO. Talk to your healthcare provider about reliable control methods. Before starting treatment with LAGEVRIO your healthcare provider may do a test to see if you are before starting treatment with LAGEVRIO. Tell your healthcare provider right away if you become or think you may be duringtreatment with LAGEVRIO. Registry: There is a registry for individuals who take LAGEVRIO during . The purpose of this program is to collect information about the health of you and your baby. If you are or become during treatment with LAGEVRIO, you are encouraged to reportyour use of LAGEVRIO during to this registry at https://covid-pr.DSTLD.[employer] or . For individuals who are sexually active with partners who are able to become : It is not known if LAGEVRIO can affect sperm. While the risk is regarded as low, animal studies to fully assess the potential for LAGEVRIO to affect the babies of males treated with LAGEVRIO have notbeen completed. A reliable method of control (contraception) should be used consistently and correctly during treatment with LAGEVRIO and for at least 3 months after the last dose. The risk to sperm beyond 3 months is not known. Studies to understand the risk to sperm beyond 3 months are ongoing. Talk to your healthcare provider about reliable control methods. Talk to your healthcare provider if you have questions or concerns about how LAGEVRIO may affect sperm. You are being given this fact sheet because your healthcare provider believes it is necessary to provide you with LAGEVRIO for the treatment of adults with a current diagnosis of mild-tomoderate coronavirus disease 2019 (COVID-19) who are at high risk for progression to severe COVID-19, including hospitalization or , and for whom other COVID-19 treatment options approved or authorized by theFDA are not accessible or clinically appropriate. The U.S. Food and Drug Administration (FDA) has issued an Emergency Use Authorization (EUA) to makeLAGEVRIO available during the COVID-19 pandemic (for more details about an EUA please see What is an Emergency Use Authorization? at the end of this document). LAGEVRIO is not an FDA-approved medicine in the [place]. Read this Fact Sheet for information about LAGEVRIO. Talk to your healthcareprovider about your options if you have any questions. It is your choice to take LAGEVRIO. What is COVID-19? COVID-19 is caused by a virus called a coronavirus. You can get COVID-19 through close contact withanother person who has the virus. COVID-19 illnesses have ranged from very [id number]-byphem, including illness resulting in . While information so far suggests that most COVID-19 illness is mild, serious illness can happen and maycause some of your other medical conditions to become worse. Older people and people of all ages with severe, long lasting (chronic) medical conditions like heart disease, lung disease and diabetes, for example seem to be at higher risk of being hospitalized for COVID-19. What is LAGEVRIO? LAGEVRIO is an investigational medicine used to treat adults with a current diagnosis of mild to moderate COVID-19: who are at high risk for progression to severe COVID-19 including hospitalization or , and for whom other COVID-19 treatment options approved or authorized by the FDA are not accessible or clinically appropriate. The FDA has authorized the emergency use of LAGEVRIO for the treatment of mild- tomoderate COVID-19 in adults under an EUA. For more information on EUA, see the What is an Emergency Use Authorization (EUA)? section at the end of this Fact Sheet. LAGEVRIO is not authorized: for use in people less than 18 years of age. for prevention of COVID-19. for people needing hospitalization for COVID-19. for use for longer than 5 consecutive days. What should I tell my healthcare provider before I take LAGEVRIO? Tell your healthcare provider if you: have any allergies are or plan to breastfeed have any serious illnesses Take any medicines including prescription, zjtt-cru-dldrcyc medicines, vitamins, and herbal products. How do I take LAGEVRIO? Take LAGEVRIO exactly as your healthcare provider tells you to take it. Take 4 capsules of LAGEVRIO every 12 hours (for example, at 8 am and at 8 pm) Take LAGEVRIO for 5 days. It is important that you complete the full 5 days of treatment with LAGEVRIO. Do not stop taking LAGEVRIO before you complete the full 5 days of treatment, even if you feel better. Take LAGEVRIO with or without food. You should stay in isolation for as long as your healthcare provider tells you to. Talk to your healthcare provider if you are not sure about how to properly isolate while you have COVID-19. Swallow LAGEVRIO capsules whole. Do not open, break, or crush the capsules. If you cannot swallow capsules whole, tell your healthcare provider. If your healthcare provider prescribes LAGEVRIO and tells you to take or give a dose through a nasogastric (NG) or orogastric (OG) tube, follow the instructions below: How to take or give a dose of LAGEVRIO through a nasogastric (NG) or orogastric (OG) feeding tube. You must have an NG or OG that is size 12 Tongan (FR) or larger. If you miss a dose of LAGEVRIO: If it has been less than 10 hours since the missed dose, take it as soon as you remember. If it has been more than 10 hours since the missed dose, skip the missed dose and take your dose atthe next scheduled time. Do not double the dose of LAGEVRIO to make up for a missed dose. How to take or give a dose of LAGEVRIO through a nasogastric (NG) or orogastric (OG) feeding tube: Wash your hands well with soap and water. Gather the supplies you will need to take or give the prescribed dose of LAGEVRIO. 4 LAGEVRIO capsules 1 liquid measuring cup with mL markings to measure 40 mL of room temperature water 1 clean container with a lid 1 catheter tip syringe. Your healthcare provider should tell you what size catheter tip syringe youwill need to take or give a dose of LAGEVRIO. Place the needed supplies on a clean work surface. Follow your healthcare provider s instructions on how to flush the NG or OG feeding tube. Flush theNG or OG feeding tube with 5 mL of water before taking or giving a dose of LAGEVRIO. Carefully open 4 LAGEVRIO capsules, one at a time, and empty the contents into a clean container. Use the liquid measuring cup to measure 40 mL of room temperature water and add to the container containing the capsule contents. Place the lid on the container. Shake to mix the capsule contents and water well for 3 minutes. Thecapsule contents may not dissolve completely. Remove the lid from the container and draw up all the LAGEVRIO and water mixture into a catheter tip syringe. Give all of the mixture right away through the NG or OG feeding tube. Do not keep the mixture for future use. If any capsule contents are left in the container: Add 10 mL of water to the container, and mix to loosen any capsule contents that are left in the container. Use the catheter tip syringe to draw up all of the mixture in the container. Give the mixture through the NG or OG feeding tube. Repeat this process as needed until you no longer see any capsule contents left in the container orcatheter tip syringe. Use the same catheter tip syringe to flush the NG or OG feeding tube 2 times with 5 mL of water (10mL total). Rinse the container, lid and catheter tip syringe well with clean water after use. Place on a cleanpaper towel until next use. What are the important possible side effects of LAGEVRIO? See, What is the most important information I should know about LAGEVRIO? Allergic Reactions. Allergic reactions can happen in people taking LAGEVRIO, even after only 1 dose. Stop taking LAGEVRIO and call your healthcare provider right away if you get any of the following symptoms of an allergic reaction: hives rapid heartbeat trouble swallowing or breathing swelling of the mouth, lips, or face throat tightness hoarseness skin rash The most common side effects of LAGEVRIO are: diarrhea nausea dizziness These are not all the possible side effects of LAGEVRIO. Not many people have taken LAGEVRIO. Serious and unexpected side effects may happen. This medicine is still being studied, so it is possible that all of the risks are not known at this time. What other treatment choices are there? Veklury (remdesivir) is FDA-approved as an intravenous (IV) infusion for the treatment of mildto-moderate COVID-19 in certain adults and children. Talk with your doctor to see if Veklury is appropriate for you. Like LAGEVRIO, FDA may also allow for the emergency use of other medicines to treat people with COVID-19. Go to https://www.fda.gov/qosmxusfb-dsyyissalecq-fen-response/hfo-ujzpxbkiippshnr-esn- policy-framework/hcyvipesf-tbg-mnpfwiiuihxeh for more information. It is your choice to be treated or not to be treated with LAGEVRIO. Should you decide not to take it, it will not change your standard medical care. What if I am ? is not recommended during treatment with LAGEVRIO and for 4 days after the last dose of LAGEVRIO. If you are or plan to breastfeed, talk to your healthcare provider about your options and specific situation before taking LAGEVRIO. How do I report side effects with LAGEVRIO? Contact your healthcare provider if you have any side effects that bother you or do not go away. Report side effects to FDA MedWatch at www.fda.gov/medwatch or call 1-800-fda-1088 (1254.823.9857). How should I store LAGEVRIO? Store LAGEVRIO capsules at room temperature between 68 F to 77 F (20 C to 25 C). Keep LAGEVRIO and all medicines out of the reach of children. How can I learn more about COVID-19? Ask your healthcare provider. Visit www.cdc.gov/COVID19 Contact your local or state public health department. Call [employer] at (toll free in the [place] Visit www.[employer] What Is an Emergency Use Authorization (EUA)? The [place] FDA has made LAGEVRIO available under an emergency access mechanism called an Emergency Use Authorization (EUA) The EUA is supported by a Independent Consultant of Health and Human Service (HHS)declaration that circumstances exist to justify emergency use of drugs and biological products during the COVID-19 pandemic. LAGEVRIO for the treatment of adults with a current diagnosis of dvyh-xs-aiugfdxz COVID-19 who are at high risk for progression to severe COVID- 19, including hospitalization or , and for whom alternative COVID-19 treatment options approved or authorized by FDA are not accessible or clinically appropriate, has not undergone the same type of review as an FDAapproved product. In issuing an EUA under the COVID-19 public health emergency, the FDA has determined, among other things, that based on the total amount of scientific evidence available including data from adequate and well-controlledclinical trials, if available, it is reasonable to believe that the product may be effective for diagnosing, treating, or preventing COVID-19, or a serious or life-threatening disease or condition caused by COVID-19; that the known and potential benefits of the product, when used to diagnose, treat, or prevent such disease or condition, outweigh the known and potential risks of such product; and that there are no adequate, approved, and available alternatives. All of these criteria must be met to allow for the product to be used in the treatment of patients during the COVID-19 pandemic. The EUA for LAGEVRIO is in effect for the duration of the COVID-19 declaration justifying emergency use of LAGEVRIO, unless terminated or revoked (after which LAGEVRIO may no longer be used under the EUA). Mario. for: [employer] [address] For patent information: www.[employer]/research/patent Copyright [employer]., [facility] and its affiliates. All rights reserved. [id number] Revised: August 2022 documented in this encounterLouis [facility] NoteHNO ID: [id number] Author: REJI THOMASON APRN.MECHE Service: ? Author Type: Nurse Practitioner Type: Progress Notes Filed: 08/29/2024 20:09 Note Text: Molnupiravir Eligibility and Patient Discussion [facility] Formulary Restriction Criteria: Adult outpatients 18 years and older with ALL of the following: [x] Patient has symptoms for 5 days or less [x] Not requiring hospitalization at any time for management of COVID-19 [x] Not requiring supplemental oxygen or a change in baseline supplemental oxygen [x] Not utilized for pre-exposure or post-exposure prophylaxis for prevention of COVID-19 [x] Patient is not or lactating [x] Meeting at least one of the criteria for high risk of progression to severe COVID-19: [x] Age over 65 years [] Cancer [] Chronic kidney disease [] Chronic liver disease [] Chronic lung diseases, including cystic fibrosis [] Dementia or other neurological conditions [] Diabetes (type 1 or type 2) [] Disabilities, including Down syndrome and neurodevelopmental disorders [] Heart conditions [] HIV infection [] Immunocompromised state [] Mental health conditions [] Medical related technological dependence (tracheostomy, gastrostomy, or positive pressure ventilation (not related to COVID) [] Overweight and obesity (BMI greater or equal to 25 for adults) [] Physical inactivity [] Sickle cell disease or thalassemia [] Smoking, current or former [] Solid organ or blood stem cell transplant [] Stroke or cerebrovascular disease [] Substance use disorders [] Tuberculosis [] People from racial and ethnic minority groups Criteria above are met: Yes Date of Symptom Onset: 08/28/24 / status reviewed: Females: [x] Patient is not currently and there is no possibility the patient could be (select one of the following): [] test does not need to be confirmed in patients who have undergone permanent sterilization, are currently using an intrauterine system or contraceptive implant, or in whom is not possible. [] Patients not meeting conditions above: assess whether the patient is based on the first day of the last menstrual period in individuals who have regular menstrual cycles, is using reliable method of contraception correctly and consistently or have had a negative test [] A test is recommended if the individual has irregular menstrual cycles, is unsure of the first day of the last menstrual period or is not using effective contraception correctly and consistently [x] Patient is not currently . is not recommended during treatment and for four days after final dose of molnupiravir. [x] Females have been advised to use a reliable method of contraception correctly and consistently for the duration of treatment and for four days after the last dose of molnupiravir Males: [] Sexually active male with partner(s) of childbearing potential has been advised to use a reliable method of contraception correctly and consistently for intercourse for the duration of treatment and for three months after the last dose of molnupiravir I have discussed the use of the investigational therapeutic, molnupiravir, for the treatment of mild to moderate COVID-19 and its use under Emergency Use Authorization with the patient. The patient was informed that molnupiravir is not an FDA approved drug and that it is authorized for use under this Emergency Use Authorization. The patient was also informed of the significant known benefits and potential risks of molnupiravir, and the extent to which such potential risks and benefits are unknown. The patient was informed that there is mandatory reporting of all medication errors and serious adverse events potentially related to molnupiravir treatment within 7 calendar days from the onset of the event and that events up to 28 days after completion of therapy need to be reported. The discussion included alternatives to receiving molnupiravir, including clinical trials, and potential the risks and benefits of those alternatives. The patient was provided electronically with the Fact Sheet for Patients, Parents and Caregivers. The patient was also instructed that in addition to the treatment with molnupiravir, he/she should continue to self-isolate and use infection control measures (e.g., wear mask, isolate, social distance, avoid sharing personal items, clean and disinfect high touch surfaces, and frequent handwashing) according to CDC guidelines. The patient stated understanding and gave verbal consent to proceeding with molnupiravir treatment. Reji Thomason APRN.PRECISION DEVICES INSPECTOR/TESTER August 29, 2024 7:57 PM CC: Patient presents with: Covid Positive: Tested today + for Covid, after exposure on Sat, fever, achy, eyes watery, runny nose, slight cough, stomach ache, diarrhea, ear pain x yesterda (more content not included)...[facility]02-27-2025 History of Present illness Narrative* Reji Thomason APRN.PRECISION DEVICES INSPECTOR/TESTER - 08/29/2024 7:49 PM EST Molnupiravir Eligibility and Patient Discussion [facility] Formulary Restriction Criteria: Adult outpatients 18 years and older with ALL of the following: [x] Patient has symptoms for 5 days or less [x] Not requiring hospitalization at any time for management of COVID-19 [x] Not requiring supplemental oxygen or a change in baseline supplemental oxygen [x] Not utilized for pre-exposure or post-exposure prophylaxis for prevention of COVID-19 [x] Patient is not or lactating [x] Meeting at least one of the criteria for high risk of progression to severe COVID-19: [x] Age over 65 years [] Cancer [] Chronic kidney disease [] Chronic liver disease [] Chronic lung diseases, including cystic fibrosis [] Dementia or other neurological conditions [] Diabetes (type 1 or type 2) [] Disabilities, including Down syndrome and neurodevelopmental disorders [] Heart conditions [] HIV infection [] Immunocompromised state [] Mental health conditions [] Medical related technological dependence (tracheostomy, gastrostomy, or positive pressure ventilation (not related to COVID) [] Overweight and obesity (BMI greater or equal to 25 for adults) [] Physical inactivity [] Sickle cell disease or thalassemia [] Smoking, current or former [] Solid organ or blood stem cell transplant [] Stroke or cerebrovascular disease [] Substance use disorders [] Tuberculosis [] People from racial and ethnic minority groups Criteria above are met: Yes Date of Symptom Onset: 08/28/24 / status reviewed: Females: [x] Patient is not currently and there is no possibility the patient could be (select one of the following): [] test does not need to be confirmed in patients who have undergone permanent sterilization, are currently using an intrauterine system or contraceptive implant, or in whom is not possible. [] Patients not meeting conditions above: assess whether the patient is based on the firstday of the last menstrual period in individuals who have regular menstrual cycles, is using reliable method of contraception correctly and consistently or have had a negative test [] A test is recommended if the individual has irregular menstrual cycles, is unsure of the first day of the last menstrual period or is not using effective contraception correctly and consistently [x] Patient is not currently . is not recommended during treatment and for four days after final dose of molnupiravir. [x] Females have been advised to use a reliable method of contraception correctly and consistently for the duration of treatment and for four days after the last dose of molnupiravir Males: [] Sexually active male with partner(s) of childbearing potential has been advised to use a reliable method of contraception correctly and consistently for intercourse for the duration of treatment and for three months after the last dose of molnupiravir I have discussed the use of the investigational therapeutic, molnupiravir, for the treatment of mild to moderate COVID-19 and its use under Emergency Use Authorization with the patient. The patient was informed that molnupiravir is not an FDA approved drug and that it is authorized for use under this Emergency Use Authorization. The patient was also informed of the significant knownbenefits and potential risks of molnupiravir, and the extent to which such potential risks and benefits are unknown. The patient was informed that there is mandatory reporting of all medication errors and serious adverse events potentially related to molnupiravir treatment within 7 calendar days from the onset of the event and that events up to 28 days after completion of therapy need to be reported. The discussion included alternatives to receiving molnupiravir, including clinical trials, and potential the risks and benefits of those alternatives. The patient was provided electronically withthe Fact Sheet for Patients, Parents and Caregivers. The patient was also instructed that in addition to the treatment with molnupiravir, he/she should continue to self-isolate and use infection control measures (e.g., wear mask, isolate, social distance, avoid sharing personal items, clean and disinfect high touch surfaces, and frequent handwashing) according to CDC guidelines. The patient stated understanding and gave verbal consent to proceeding with molnupiravir treatment. Reji Thomason APRN.[facility] August 29, 2024 7:57 PM CC: Patient presents with: Covid Positive: Tested today + for Covid, after exposure on Sat, fever, achy, eyes watery, runny nose, slight cough, stomach ache, diarrhea, ear pain x yesterday HPI: Winston Ohara is a 74 year old female who presents to the office with complaint of head congestion and cough, nonproductive for the past day. Symptoms are improving Associated symptoms includes cough. Denies wheezing, dyspnea, nausea, vomiting , and diarrhea. Treatments tried include nothing so far. with no relief of symptoms. Sick contacts: unknown. History of asthma, frequent episodes of bronchitis, chronic bronchitis, bronchiectasis or COPD: No Smoker: No Seasonal/environmental allergies: No The ROS is otherwise negative. The patient's pmh, medications, allergies, and past visits are reviewed. PHYSICAL EXAM: BP 141/71 Pulse 63 Temp (!) 38.7 C (101.6 F) Resp 20 LMP 08/31/2009 SpO2 98% General appearance: alert, cooperative, pleasant, in no acute distress Head: Normocephalic Eyes: EOM's intact, conjunctiva pink and moist, no icterus, sclera white, non-injected Ears: Right ear: External ear/canal- Normal, TM - clear with good landmarks. Left ear: External ear/canal- Normal, TM - clear with good landmarks Oropharynx:moist without lesions, No erythema, exudates or tonsillar hypertrophy. Heart: Negative. RRR without obvious murmur, gallop, or rubs. No ectopy. Lungs: clear to auscultation, without rales or wheeze, good air exchange PAST MEDICAL HISTORY Diagnosis Date Arthritis Benign neoplasm of colon 2005 Excised via colonoscopy Calculus of kidney Depressive disorder, not elsewhere classified Diarrhea Essential hypertension 01/17/2021 External hemorrhoids without mention of complication Ganglion Cyst, arch of left foot 01/20/2010 Generalized anxiety disorder Anxiety, Generalized History of kidney donation 02/12/2016 Insomnia, unspecified Internal hemorrhoids without mention of complication Irritable bowel syndrome Malignant neoplasm of breast (female), unspecified site family history breast cancer Nasal bone fracture 2013 Other acne 05/03/2005 Palpitations 10/05/2006 controlled with atenolol; does not have HTN Paroxysmal atrial fibrillation (HCC) 10/2017 Dr. Thapa Peptic ulcer, unspecified site, unspecified as acute or chronic, without mention of hemorrhage, perforation, or obstruction Personal history of colonic polyps Thyroid cyst 09/24/2014 PAST SURGICAL HISTORY Procedure Laterality Date ABDOMINAL SURGERY HX APPENDECTOMY 12/2000 APPENDECTOMY HX BIOPSY BREAST OPEN INCISIONAL Bx of breast, incisional BX BREAST W/DEVICE 1ST LESION STEREOTACTIC GUID Left 09/03/2021 COLON SURGERY HX COLONOSCOPY 11/02/2021 repeat in 10 years COLONOSCOPY FLX DX W/COLLJ SPEC WHEN PFRMD 05/01/2006 Colonoscopy COLONOSCOPY FLX DX W/COLLJ SPEC WHEN PFRMD 09/22/2016 Colonoscopy COLONOSCOPY W/BIOPSY SINGLE/MULTIPLE 04/26/2010 ESWL 08/2009 FNA WITH IMAGING 09/24/2014 U/S FNA left thyroid cyst JOINT REPLACEMENT HX KNEE SURGERY HX Left 2020 PAST SURGICAL HISTORY OF 12/2000 right colectomy, right salpingoopherectomy PAST SURGICAL HISTORY OF 2012 right kidney donor ALLERGIES Flagyl [Metronidazole] and Flecainide MEDICATIONS zolpidem (AMBIEN) 5 mg tablet Take 1 tablet by mouth at bedtime as needed for sedation for up to 180 days. Patient should start on June 19, 2024. cholecalciferol, vitamin D3, 62.5 mcg (2,500 unit) chew Take 2 capsules by mouth daily after dinner. (actually chewable tablets) sertraline (ZOLOFT) 25 mg tablet Take 1 tablet by mouth once daily. losartan (COZAAR) 100 mg tablet Take 100 mg by mouth once daily. XARELTO 20 mg tablet Take 1 tablet by mouth once daily. (cardiology filling) sotalol (BETAPACE) 80 mg tablet Take 80 mg by mouth twice daily. fluticasone (FLONASE) 50 mcg/actuation nasal spray Use 2 Sprays in each nostril once daily. acetaminophen (TYLENOL) 500 mg tablet EVERY 6 HOURS NEEDED bismuth subsalicylate(PEPTO-BISMOL 262 MG TAB) Takes 2 pills daily as needed for IBS flare up molnupiravir 200 mg capsule Take 4 capsules by mouth two times a day for 5 days. furosemide (LASIX) 40 mg tablet Take 40 mg by mouth once daily as needed. Take prn FOR EDEMA (Patient not taking: Reported on 08/29/2024) mupirocin (BACTROBAN) 2 % ointment Apply to affected area three times daily. Use for 5 to 10 days for skin infection (Patient not taking: Reported on 08/29/2024) FAMILY HISTORY Problem Relation Age of Onset Hypertension Mother other (IBS) Mother Prostate Cancer Father Hypertension Father Hypertension Sister Breast Cancer Sister other (Thyroid Cancer) Other 30 Niece (sister's daughter) Social History Tobacco Use Smoking status: Former Current packs/day: 0.00 Average packs/day: 1 pack/day for 15.0 years (15.0 ttl pk-yrs) Types: Cigarettes Start date: 07/03/1971 Quit date: 07/03/1986 Years since quittin.1 Smokeless tobacco: Never Tobacco comments: Quit 1986 Vaping Use Vaping status: Never Used Substance Use Topics Alcohol use: No Drug use: No ASSESSMENT/PLAN: 1. COVID - ICD9: 079.89, ICD10: U07.1 - MOLNUPIRAVIR 200 MG CAPSULE (EUA) Has one kidney. Prescription instructions reviewed with patient as applicable. Potential red flag symptoms discussed with the patient. Reviewed appropriate action plan to take if red flag symptoms occur. Patient agreeable to treatment plan. Reji Thomason APRN.PRECISION DEVICES INSPECTOR/TESTER documented in this encounterLouis [facility] Telephone encounter Note * Telephone Encounter - Chica Sapp RN - 08/29/2024 6:46 PM EST Please see phone encounter from today. Pt did not read MyChart msg and states she is unable to do VV. Pt and her [facility]. [facility] Miscellaneous Notes* Telephone Encounter - Chica Sapp RN - 08/29/2024 6:46 PM EST Please see phone encounter from today. Pt did not read MyChart msg and states she is unable to do VV. Pt and her are going to [facility] evening. documented in this encounterLouis [facility] Telephone encounter Note * Telephone Encounter - Chica Sapp RN - 08/29/2024 6:44 PM EST Pt calling in as she states she was called regarding an appt with Dr. Miranda. Pt had been scheduled for a VV with Dr. Miranda at 620 pm. Pt states she was unaware of the appt as she did not see the MyChart msg. Also she states she cannot do VV. She and her will come in to be seen [facility] evening. [facility]02-[facility] Miscellaneous Notes* Telephone Encounter - Chica Sapp RN - 08/29/2024 6:44 PM EST Pt calling in as she states she was called regarding an appt with Dr. Miranda. Pt had been scheduled for a VV with Dr. Miranda at 620 pm. Pt states she was unaware of the appt as she did not see the MyChart msg. Also she states she cannot do VV. She and her will come in to be seen in [facility] this evening. * Telephone Encounter - Juliano Jenkins RN - 08/29/2024 11:46 AM EST Pt reports she and her both tested positive on a home covid test yesterday. Pt's s/s started on : fever 100.2, cough, runny nose, diarrhea, stomach ache. Pt reports her is having the same symptoms, and his started on Monday. Reports they would like to speak with a provider to ask if they should take the antiviral- not the paxlovid, because they both only have 1 kidney, and had a kidney transplant. Reports in 2019 they both had covid and took the antiviral pill that was not paxlovid. Pt unable to do a VV appt with pcp office. Aware would need to start antiviral within 5 days of symptoms starting. Pt states they will go to for evaluation. States they are both able to wear masksand will wear them. documented in this encounterLouis [facility] Telephone encounter Note * Telephone Encounter - Juliano Jenkins RN - 08/29/2024 11:46 AM EST Pt reports she and her both tested positive on a home covid test yesterday. Pt's s/s started on : fever 100.2, cough, runny nose, diarrhea, stomach ache. Pt reports her is having the same symptoms, and his started on Monday. Reports they would like to speak with a provider to ask if they should take the antiviral- not the paxlovid, because they both only have 1 kidney, and had a kidney transplant. Reports in 2019 they both had covid and took the antiviral pill that was not paxlovid. Pt unable to do a VV appt with pcp office. Aware would need to start antiviral within 5 days of symptoms starting. Pt states they will go to for evaluation. States they are both able to wear masksand will wear them. [facility]12-13-[facility] Instructions* Patient Instructions* Liliam Alaniz MD - 06/14/2024 3:11 PM EST - Continue taking Losartan 100 mg daily as prescribed. - Take Sotalol as prescribed; monitor for any episodes of atrial fibrillation (AFib) and report them to your upsetter helper. - Use Lasix as needed for swelling. - Take Zoloft 25 mg daily as prescribed. - Take Zolpidem as prescribed for sleep; a 90-day supply has been requested. - Use Flonase as needed for allergy symptoms. - Take Vitamin D 5,000 IU daily. - Practice breathing exercises: inhale for a count of 4, hold for 4, and exhale for a count of 8 tohelp manage blood pressure and anxiety. - Monitor your blood pressure regularly and record the readings. - Follow up with your upsetter helper in August. - Get a tetanus shot at your local pharmacy; it is covered by Medicare Part D. - Schedule a 3D mammogram in August next year. - Maintain a healthy diet and regular exercise routine; aim for at least 120 minutes of exercise per week. - Follow up with your eye doctor as needed. Screening schedule The following prevention plan is recommended: Depression Screening Never done BP Controlled (<130/80) Never done Shingrix Vaccine(1 of 2) Never done DTaP,Tdap,Td Vaccine(3 - Td or Tdap) due on 11/20/2021 Mammogram Screening due on 08/28/2024 WHAT YOU CAN DO TO PREVENT FALLS Many falls can be prevented. By making some changes, you can lower your chances of falling. Four things YOU can do to prevent falls for you* and your caregiver 1. Begin a regular exercise program Exercise is one of the most important ways to lower your chances of falling. It makes you stronger and helps you feel better. Exercises that improve balance and coordination (like Charles Chi) are the most helpful. Lack of exercise leads to weakness and increases your chances of falling. Ask your doctor or health care provider about the best type of exercise program for you. 2. Have your health care provider review your medicines Have your doctor or pharmacist review all the medicines you take, even [id number] medicines. As you get older, the way medicines work in your body can change. Some medicines, or combinations of medicines, can make you sleepy or dizzy andcan cause you to fall. 3. Have your vision checked Have your eyes checked by an eye doctor at least once a year. You may be wearing the wrong glasses or have a condition like glaucoma or cataracts that limits your vision. Poor vision can increase your chances of falling. 4. Make your home safer About half of all falls happen at home. To make your home safer: Remove things you can trip over (like papers, books, clothes, and shoes) from stairs and places where you walk. Remove small throw rugs or use double-sided tape to keep the rugs from slipping. Keep items you use often in cabinets you can reach easily without using a step stool. Have grab bars put in next to your toilet and in the tub or shower. Use non-slip mats in the bathtub and on shower floors. Improve the lighting in your home. As you get older, you need brighter lights to see well. Hang light-weight curtains or shades to reduce glare. Have handrails and lights put in on all staircases. Wear shoes both inside and outside the house. Avoid going barefoot or wearing slippers. For more information, contact: Centers for Disease Control and Prevention www.cdc.gov/injury * This information may not apply if you have certain medical conditions. documented in this encounterLouis [facility]12-13-[facility]24 NoteHNO ID: [id number] Author: LILIAM ALANIZ MD Service: ? Author Type: Physician Type: Progress Notes Filed: 06/14/2024 16:09 Note Text: This note was created using [employer]. Subjective Winston Ohara is a 74 year old female. HISTORY Winston Ohara is a 74 year old lady here for Medicare Annual Wellness Visit and yearly exam and follow up appointment. Winston Ohara is a 74-year-old female with a history of HTN and A-fib, presenting for a Medicare wellness visit and fall risk assessment. Winston reports concerns about her blood pressure readings at home, which have been consistently in the 140s. She brought her blood pressure monitor to the visit for comparison. In the office, her blood pressure was recorded at 130/70, while her monitor showed 146/79. She notes a discrepancy of about 10-15 points between her home readings and office readings, which have ranged from 110s to 130s. She reports no symptoms when her blood pressure is in the 140s but does mention feeling her heart beating and a jittery sensation in the evenings, which she is unsure if it is related to her blood pressure. She also reports an episode of A-fib about 3 weeks ago that woke her up at 0430. She describes her heart as beating weird but denies other symptoms. She took her sotalol early at 0630, and by 0830, she had reverted to normal rhythm. She is currently on 100 mg of losartan daily and sotalol. She also has Lasix prescribed as needed for swelling but reports she does not take it. She notes occasional leg swelling but not as severe as previously. She expresses concern that losartan may not be effectively managing her blood pressure. She reports a history of loose stools occurring approximately 40 minutes after taking sotalol, describing it as diarrhea but not watery. She manages this with Pepto or Imodium if she needs to go out in the morning. She denies constipation. She is also on sertraline 25 mg, which she reports is effective, and zolpidem, which she takes to help with sleep. She recently increased her vitamin D intake from 2,000 units to 5,000 units daily. She has discontinued biotin as she did not find it effective for hair thinning and does not take any general vitamins. She reports engaging in regular exercise, including using a rower for about 15 minutes a day and going up and down stairs multiple times a day in her two-story house. She denies alcohol consumption and follows safety precautions at home to prevent falls. She has advanced directives on file and follows up with cardiology, with her next appointment scheduled for August. She also follows up with an eye doctor, with her last visit in April. 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 Thapa Peptic ulcer, unspecified site, unspecified as acute or chronic, without mention of hemorrhage, perforation, or obstruction Personal history of colonic polyps Thyroid cyst 09/24/2014 Current Outpatient Medications Medication Sig [START ON 06/19/2024] zolpidem (AMBIEN) 5 mg tablet Take 1 tablet by mouth at bedtime as needed for sedation for up to 180 days. Patient should start on June 19, 2024. cholecalciferol, vitamin D3, 62.5 mcg (2,500 unit) chew Take 2 capsules by mouth daily after dinner. (actually chewable tablets) sertraline (ZOLOFT) 25 mg tablet Take 1 tablet by mouth once daily. losartan (COZAAR) 100 mg tablet Take 100 mg by mouth once daily. furosemide (LASIX) 40 mg tablet Take 40 mg by mouth once daily as needed. Take prn FOR EDEMA mupirocin (BACTROBAN) 2 % ointment Apply to affected area three times daily. Use for 5 to 10 days for skin infection XARELTO 20 mg tablet Take 1 tablet by mouth once daily. (cardiology filling) sotalol (BETAPACE) 80 mg tablet Take 80 mg by mouth twice daily. fluticasone (FLONASE) 50 mcg/actuation nasal spray Use 2 Sprays in each nostril once daily. (Patient taking differently: Use 2 Sprays in each nostril as needed.) acetaminophen (TYLENOL) 500 mg tablet EVERY 6 HOURS NEEDED bismuth subsalicylate(PEPTO-BISMOL 262 MG TAB) Takes 2 pills daily as needed for IBS flare up No current facility-administered medications for this visit. ALLERGIES Allergen Reactions Flagy (more content not included)...[facility]12-13-2024 History of Present illness Narrative* Liliam Alaniz MD - 06/14/2024 3:10 PM EST Images from the original note were not included. This note was created using [employer]. Subjective Winston Ohara is a 74 year old female. HISTORY Winston Ohara is a 74 year old lady here for Medicare Annual Wellness Visit and yearly exam and follow up appointment. Winston Ohara is a 74-year-old female with a history of HTN and A-fib, presenting for a Medicare wellness visit and fall risk assessment. Winston reports concerns about her blood pressure readings at home, which have been consistently in the 140s. She brought her blood pressure monitor to the visit for comparison. In the office, her blood pressure was recorded at 130/70, while her monitor showed 146/79. She notes a discrepancy of about 10-15 points between her home readings and office readings, which have ranged from 110s to 130s. She reports no symptoms when her blood pressure is in the 140s but does mention feeling her heart beating and a jittery sensation in the evenings, which she is unsure if it is related to her blood pressure. She also reports an episode of A-fib about 3 weeks ago that woke her up at 0430. She describes her heart as beating weird but denies other symptoms. She took her sotalol early at 0630, and by 0830,she had reverted to normal rhythm. She is currently on 100 mg of losartan daily and sotalol. She also has Lasix prescribed as needed for swelling but reports she does not take it. She notes occasional leg swelling but not as severe as previously. She expresses concern that losartan may not be effectively managing her blood pressure. She reports a history of loose stools occurring approximately 40 minutes after taking sotalol, describing it as diarrhea but not watery. She manages this with Pepto or Imodium if she needs to go out in the morning. She denies constipation. She is also on sertraline 25 mg, which she reports is effective, and zolpidem, which she takes to help with sleep. She recently increased her vitamin D intake from 2,000 units to 5,000 units daily. She has discontinued biotin as she did not find it effective for hair thinning and does not take any general vitamins. She reports engaging in regular exercise, including using a rower for about 15 minutes a day and going up and down stairs multiple times a day in her two-story house. She denies alcohol consumption and follows safety precautions at home to prevent falls. She has advanced directives on file and follows up with cardiology, with her next appointment scheduled for August. She also follows up with an eye doctor, with her last visit in April. 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 Thapa Peptic ulcer, unspecified site, unspecified as acute or chronic, without mention of hemorrhage, perforation, or obstruction Personal history of colonic polyps Thyroid cyst 09/24/2014 Current Outpatient Medications Medication Sig [START ON 06/19/2024] zolpidem (AMBIEN) 5 mg tablet Take 1 tablet by mouth at bedtime as needed forsedation for up to 180 days. Patient should start on June 19, 2024. cholecalciferol, vitamin D3, 62.5 mcg (2,500 unit) chew Take 2 capsules by mouth daily after dinner. (actually chewable tablets) sertraline (ZOLOFT) 25 mg tablet Take 1 tablet by mouth once daily. losartan (COZAAR) 100 mg tablet Take 100 mg by mouth once daily. furosemide (LASIX) 40 mg tablet Take 40 mg by mouth once daily as needed. Take prn FOR EDEMA mupirocin (BACTROBAN) 2 % ointment Apply to affected area three times daily. Use for 5 to 10 days for skin infection XARELTO 20 mg tablet Take 1 tablet by mouth once daily. (cardiology filling) sotalol (BETAPACE) 80 mg tablet Take 80 mg by mouth twice daily. fluticasone (FLONASE) 50 mcg/actuation nasal spray Use 2 Sprays in each nostril once daily. (Patient taking differently: Use 2 Sprays in each nostril as needed.) acetaminophen (TYLENOL) 500 mg tablet EVERY 6 HOURS NEEDED bismuth subsalicylate(PEPTO-BISMOL 262 MG TAB) Takes 2 pills daily as needed for IBS flare up No current facility-administered medications for this visit. ALLERGIES Allergen Reactions Flagyl [Metronidazo* GI Upset Flecainide Other: See Comments Caused irregular EKG SOB FAMILY HISTORY Problem Relation Age of Onset Hypertension Mother other (IBS) Mother Prostate Cancer Father Hypertension Father Hypertension Sister Breast Cancer Sister other (Thyroid Cancer) Other 30 Niece (sister's daughter) Social History Tobacco Use Smoking status: Former Current packs/day: 0.00 Average packs/day: 1 pack/day for 15.0 years (15.0 ttl pk-yrs) Types: Cigarettes Start date: 07/03/1971 Quit date: 07/03/1986 Years since quittin.9 Smokeless tobacco: Never Tobacco comments: Quit 1986 Vaping Use Vaping status: Never Used Substance Use Topics Alcohol use: No Drug use: No Review of Systems Objective BP 130/70 (BP Site: Left Arm, BP Position: Sitting, BP Cuff Size: Large Adult) Pulse 64 Resp 12 Ht 162.6 cm (5' 4) Wt 69 kg (152 lb 1.9 oz) LMP 08/31/2009 SpO2 100% BMI 26.11 kg/m Last 5 Encounter Wt Readings: Date: Wt: 06/14/2024 69 kg (152 lb 1.9 oz) 12/20/2023 69.9 kg (154 lb) 06/05/2023 68 kg (150 lb) 12/23/2022 67.6 kg (149 lb) 09/13/2022 67.1 kg (148 lb) No waist measurement recorded Estimated body mass index is 26.11 kg/m as calculated from the following: Height as of this encounter: 162.6 cm (5' 4). Weight as of this encounter: 69 kg (152 lb 1.9 oz). Last 5 Encounter BP Readings: Date: BP: 06/14/2024 130/70 12/20/2023 114/64 06/05/2023 138/74 12/23/2022 118/64 12/14/2022 122/64 06/14/24 1411 06/14/24 1602 BP: 130/70 134/68 BP Site: Left Arm BP Position: Sitting BP Cuff Size: Large Adult Pulse: 64 Resp: 12 SpO2: 100% Weight: 69 kg (152 lb 1.9 oz) Height: 162.6 cm (5' 4) Physical Exam Vitals reviewed. Constitutional: Appearance: Normal appearance. She is well-developed. HENT: Head: Normocephalic and atraumatic. Right Ear: Tympanic membrane, ear canal and external ear normal. Left Ear: Tympanic membrane, ear canal and external ear normal. Nose: Nose normal. Mouth/Throat: Mouth: Mucous membranes are moist. Eyes: Conjunctiva/sclera: Conjunctivae normal. Pupils: Pupils are equal, round, and reactive to light. Neck: Thyroid: No thyromegaly. Vascular: No carotid bruit. Cardiovascular: Rate and Rhythm: Normal rate and regular rhythm. Pulses: Normal pulses. Heart sounds: Normal heart sounds. No murmur heard. No friction rub. No gallop. Pulmonary: Effort: Pulmonary effort is normal. Breath sounds: Normal breath sounds. Abdominal: General: Bowel sounds are normal. There is no distension. Palpations: Abdomen is soft. There is no mass. Tenderness: There is no abdominal tenderness. Musculoskeletal: General: No deformity. Normal range of motion. Right lower leg: No edema. Left lower leg: No edema. Lymphadenopathy: Cervical: No cervical adenopathy. Skin: General: Skin is warm and dry. Coloration: Skin is not jaundiced or pale. Findings: No rash. Neurological: General: No focal deficit present. Mental Status: She is alert and oriented to person, place, and time. Cranial Nerves: No cranial nerve deficit. Sensory: No sensory deficit. Motor: No abnormal muscle tone. Coordination: Coordination normal. Deep Tendon Reflexes: Reflexes normal. Psychiatric: Attention and Perception: Attention and perception normal. Mood and Affect: Mood and affect normal. Speech: Speech normal. Behavior: Behavior normal. Thought Content: Thought content normal. Cognition and Memory: Cognition and memory normal. Judgment: Judgment normal. Latest Ref Rng 06/05/2023 12/18/2023 06/10/2024 WBC 3.70 - 11.00 k/uL 6.97 5.13 5.73 RBC 3.90 - 5.20 m/uL 4.59 4.10 4.46 Hemoglobin 11.5 - 15.5 g/dL 14.2 12.5 13.5 Hematocrit 36.0 - 46.0 % 43.1 38.8 42.8 MCV 80.0 - 100.0 fL 93.9 94.6 96.0 MCH 26.0 - 34.0 pg 30.9 30.5 30.3 MCHC 30.5 - 36.0 g/dL 32.9 32.2 31.5 RDW-CV 11.5 - 15.0 % 13.0 13.0 13.2 Platelet Count 150 - 400 k/uL 222 192 203 MPV 9.0 - 12.7 fL 10.3 10.4 10.2 Neut% % 67.8 Abs Neut (ANC) 1.45 - 7.50 k/uL 3.48 Lymph% % 19.5 Abs Lymph 1.00 - 4.00 k/uL 1.00 Blanco% % 7.8 Abs Blanco <0.87 k/uL 0.40 Eosin% % 3.3 Abs Eosin <0.46 k/uL 0.17 Baso% % 1.2 Abs Baso <0.11 k/uL 0.06 Immature Gran % % 0.4 IMMATURE GRANS (ABS) <0.10 k/uL <0.03 NRBC /100 WBC 0.0 Absolute nRBC <0.01 k/uL <0.01 <0.01 <0.01 DTYPE Auto Protein, Total 6.3 - 8.0 g/dL 7.1 6.6 6.9 Albumin 3.9 - 4.9 g/dL 4.2 4.0 4.3 Calcium 8.5 - 10.2 mg/dL 10.7 (H) 9.8 9.8 Bilirubin, Total 0.2 - 1.3 mg/dL 0.6 0.7 0.7 Alkaline Phosphatase 34 - 123 U/L 122 151 (H) 131 (H) AST 13 - 35 U/L 31 44 (H) 29 ALT 7 - 38 U/L 12 35 18 Glucose 74 - 99 mg/dL 84 93 89 BUN 7 - 21 mg/dL 18 15 17 Creatinine 0.58 - 0.96 mg/dL 0.81 0.89 0.76 Sodium 136 - 144 mmol/L 140 140 140 Potassium 3.7 - 5.1 mmol/L 5.5 (H) 4.1 4.4 Chloride 98 - 107 mmol/L 105 107 104 CO2 22 - 30 mmol/L 22 23 24 Anion Gap 8 - 15 mmol/L 13 10 12 eGFR >=60 mL/min/1.73m 78 69 83 Total Cholesterol, Nonfasting <200 mg/dL 241 (H) 200 (H) 221 (H) Triglycerides, Nonfasting <150 mg/dL 161 (H) 120 122 HDL Cholesterol, Nonfasting >39 mg/dL 60 52 60 LDL Cholesterol, Nonfasting <100 mg/dL 149 (H) 124 (H) 137 (H) Non HDL Cholesterol, Nonfasting <130 mg/dL 181 (H) 148 (H) 161 (H) VLDL Cholesterol, Nonfasting <30 mg/dL 32 (H) 24 24 Total Chol/HDL Ratio, Nonfasting <5.10 mg/dL 4.02 3.85 3.68 LDL/HDL Ratio, Nonfasting <2.54 mg/dL 2.48 2.38 2.28 Vitamin D 25 Hydroxy 31.0 - 80.0 ng/mL 43.9 37.7 27.4 (L) TSH 0.270 - 4.200 mIU/L 2.110 Free T4 0.9 - 1.7 ng/dL 1.4 Free T3 2.3 - 4.1 pg/mL 2.5 Legend: (H) High (L) Low The 10-year ASCVD risk score (Dinorah LUCAS, et al., 2019) is: 16.1% Values used to calculate the score: Age: 74 years Sex: Female Is Non- : No Diabetic: No Tobacco smoker: No Systolic Blood Pressure: 130 mmHg Is BP treated: Yes HDL Cholesterol: 60 mg/dL Total Cholesterol: 221 mg/dL Assessment and Plan Winston Ohara is a 74 year old female here for a Medicare wellness visit. Medicare Health Risk Assessment General Health Very good Exercise: Minutes/Day 20 min Exercise: Days/Week 5 days Alcohol: Daily Use Never Alcohol: Drinks/Day Patient does not drink Alcohol: 6 or more drinks Never Feel off balance No Concerns: Teeth/Dentures No Concerns: Sexual function No Troubled by feelings None of the above Frequency: Eating healthy diet Nearly every day ADLs requiring help None of the above Safety precautions in home/vehicle Yes Smoke, vape, chews tobacco No Difficulty hearing No Difficulty seeing No Current Providers Specialists: I have reviewed specialist-related care of the patient in the medical record. Outside specialists seen: Dr. Thapa ([facility]); Dr. Pond (fisher diving) Medical/Family history review Reviewed and updated problem list, medical/surgical/family/social history, medications, and allergies. Opioid use review Opioid Medications (last 90 days) No data to display Anxiety/Depression screening PHQ-9 Score: 0. BETH-7 Score: 0. Recommendation: continuing current treatment plan and medication management Cognitive screening Mini Cog Score: 5 Cognitive screening reviewed and No further action needed (score 3-5). Functional Observation Was the patient's Timed Up & Go test unsteady or >= 12 seconds? No Advance Care Planning Surrogate decision maker and/or advance care plan documented Measurements BP 130/70 (BP Site: Left Arm, BP Position: Sitting, BP Cuff Size: Large Adult) Pulse 64 Resp 12 Ht 162.6 cm (5' 4) Wt 69 kg (152 lb 1.9 oz) LMP 08/31/2009 SpO2 100% BMI 26.11 kg/m Vision Screening: Follows with optometry/ophthalmology Assessment/Plan Medicare annual wellness visit, subsequent () - Counseled on healthy diet and regular exercise - Fall avoidance information provided - Personalized prevention plan provided # Medicare annual wellness visit, subsequent (Z.) - Completed comprehensive Medicare annual wellness visit. - Reviewed and updated health maintenance records, including immunizations and screenings. - Discussed exercise and dietary habits; patient engages in moderate exercise, including rowing andstair climbing. - Reviewed advanced directives; confirmed on file. - Follow-up in one year for next annual wellness visit. # Essential hypertension (I10) - Blood pressure readings in office: 130/70 mmHg; home readings range from 110s to 140s mmHg. - Current medication: Losartan 100 mg daily. - Discussed potential variability in home BP readings; advised patient to ensure proper technique and consistent timing when measuring BP. - Educated on breathing exercises (in for 4 seconds, out for 8 seconds) to help manage occasional elevated BP readings. - Continue current medication regimen; monitor BP at home. # Vitamin D deficiency (E55.9) - Recent labs show vitamin D levels low. - Patient increased vitamin D supplementation to 5000 IU daily. - Continue current supplementation; recheck levels at next follow-up. # Generalized anxiety disorder (F41.1) - Managed with sertraline 25 mg daily; patient reports stability on current dose. - Discussed use of breathing exercises to manage anxiety symptoms. - Continue current medication regimen. # Paroxysmal atrial fibrillation (HCC) (I48.0) - Recent episode managed with early administration of sotalol; resolved without further intervention. - Follow-up with cardiology scheduled for August. - Continue sotalol as prescribed. # Psychophysiological insomnia (F51.04) - Managed with zolpidem; patient reports dependence on medication for sleep. - Discussed potential benefits of breathing exercises to aid in sleep. - Prescription for zolpidem adjusted to 90-day supply, pending insurance approval. # Encounter for immunization (Z23) - Tetanus vaccination due; recommended patient receive vaccination at pharmacy, covered by MedicarePart D. - Discussed benefits of flu vaccination; patient declined, stating no history of flu. # Screening for depression (Z13.31) - Depression screening completed; no new concerns identified. - Continue current management with sertraline. # Encounter for screening mammogram for breast cancer (Z12.31) - Ordered 3D mammogram to be completed in August. Liliam Alaniz MD documented in this encounterLouis [facility] Telephone encounter Note * Telephone Encounter - Liliam Alaniz MD - 05/28/2024 9:09 PM EST The following approved medication requests have been transmitted electronically. Requested Prescriptions Signed Prescriptions Disp Refills sertraline (ZOLOFT) 25 mg tablet 90 tablet 3 Sig: Take 1 tablet by mouth once daily. Authorizing Provider: LILIAM ALANIZ zolpidem (AMBIEN) 5 mg tablet 30 tablet 5 Sig: Take 1 tablet by mouth at bedtime as needed for sedation for up to 180 days. Patient should start on June 19, 2024. Authorizing Provider: LILIAM ALANIZ MD [facility]11-26-2024 Miscellaneous Notes* Telephone Encounter - Liliam Alaniz MD - 05/28/2024 9:09 PM EST The following approved medication requests have been transmitted electronically. Requested Prescriptions Signed Prescriptions Disp Refills sertraline (ZOLOFT) 25 mg tablet 90 tablet 3 Sig: Take 1 tablet by mouth once daily. Authorizing Provider: LILIAM ALANIZ zolpidem (AMBIEN) 5 mg tablet 30 tablet 5 Sig: Take 1 tablet by mouth at bedtime as needed for sedation for up to 180 days. Patient should start on June 19, 2024. Authorizing Provider: LILIAM ALANIZ MD * Telephone Encounter - Lidia Marinelli LPN - 05/28/2024 2:58 PM EST Patient has been identified by name and date of : Yes Patient phones for refill(s): Requested Prescriptions Pending Prescriptions Disp Refills sertraline (ZOLOFT) 25 mg tablet 90 tablet 3 Sig: Take 1 tablet by mouth once daily. zolpidem (AMBIEN) 5 mg tablet 30 tablet 5 Sig: Take 1 tablet by mouth at bedtime as needed for sedation for up to 180 days. Patient should start on June 20, 2024. Date of last office visit in primary care: 12/20/2023 Date of next office visit in primary care: 06/14/2024 Please advise. Thank you. Lidia Marinelli LPN. documented in this [facility] Telephone encounter Note * Telephone Encounter - Lidia Marinelli LPN - 05/28/2024 2:58 PM EST Patient has been identified by name and date of : Yes Patient phones for refill(s): Requested Prescriptions Pending Prescriptions Disp Refills sertraline (ZOLOFT) 25 mg tablet 90 tablet 3 Sig: Take 1 tablet by mouth once daily. zolpidem (AMBIEN) 5 mg tablet 30 tablet 5 Sig: Take 1 tablet by mouth at bedtime as needed for sedation for up to 180 days. Patient should start on June 20, 2024. Date of last office visit in primary care: 12/20/2023 Date of next office visit in primary care: 06/14/2024 Please advise. Thank you. Lidia Marinelli LPN. [facility]06-19-2024 Instructions* Patient Instructions* Liliam Alaniz MD - 12/20/2023 9:41 AM EDT Okay to take half pill losartan and see if swelling improves and if BP stays controlled. If swelling better but not resolving, options include taking half pill Lasix daily to help with BP control and control of swelling. If swelling is better but BP goes up, can add Lasix or another water pill or changing meds The other option is replacing the losartan. Consider valsartan (Diovan). documented in this encounterLouis [facility] History of Present illness Narrative* Liliam Alaniz MD - 12/20/2023 9:29 AM EDT This note was created using [employer]. Subjective Winston Ohara is a 73 year old female. Patient presents with: F/U 6 months: Labs prior SUBJECTIVE: Winston Ohara is a 73 year old year old lady here today for 6 month follow up appointment for review of medical conditions. 09/25--Saw Dr. Thapa. Lisinopril stopped due to dry cough. Losartan started. Developed ankle swelling. Labs done. BNP slightly elevated 167.8. Was started om Lasix. Echo was done. (Possible pulmonary hypertension) Wonders about switching off losartan since swelling started after this med was started. Would prefer not to have to be on Lasix--cannot go anywhere till afternoon. Swelling goes down by AM and gets worse by afternoon. Sometimes calves feel tighter Sotalol causes diarrhea. Does control a fib rate okay. 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 Thapa Peptic ulcer, unspecified site, unspecified as acute or chronic, without mention of hemorrhage, perforation, or obstruction Personal history of colonic polyps Thyroid cyst 09/24/2014 Current Outpatient Medications Medication Sig losartan (COZAAR) 100 mg tablet Take 100 mg by mouth once daily. furosemide (LASIX) 40 mg tablet Take 40 mg by mouth once daily as needed. Take prn FOR EDEMA zolpidem (AMBIEN) 5 mg tablet Take 1 tablet by mouth at bedtime as needed for sedation for up to 180 days. sertraline (ZOLOFT) 25 mg tablet Take 1 tablet by mouth once daily. mupirocin (BACTROBAN) 2 % ointment Apply to affected area three times daily. Use for 5 to 10 days for skin infection XARELTO 20 mg tablet Take 1 tablet by mouth once daily. (cardiology filling) sotalol (BETAPACE) 80 mg tablet Take 80 mg by mouth twice daily. Cholecalciferol, Vitamin D3, 25 mcg (1,000 unit) cap Take 2 capsules by mouth once daily. fluticasone (FLONASE) 50 mcg/actuation nasal spray Use 2 Sprays in each nostril once daily. (Patient taking differently: Use 2 Sprays in each nostril as needed.) acetaminophen (TYLENOL) 500 mg tablet EVERY 6 HOURS NEEDED bismuth subsalicylate(PEPTO-BISMOL 262 MG TAB) Takes 2 pills daily as needed for IBS flare up No current facility-administered medications for this visit. Review of Systems Objective BP 114/64 Pulse 61 Temp 36.5 C (97.7 F) Resp 18 Wt 69.9 kg (154 lb) LMP 08/31/2009 EkL400% BMI 26.43 kg/m Last 5 Encounter Wt Readings: Date: Wt: 12/20/2023 69.9 kg (154 lb) 06/05/2023 68 kg (150 lb) 12/23/2022 67.6 kg (149 lb) 09/13/2022 67.1 kg (148 lb) 09/06/2022 68 kg (150 lb) No waist measurement recorded Estimated body mass index is 26.43 kg/m as calculated from the following: Height as of 09/13/22: 162.6 cm (5' 4). Weight as of this encounter: 69.9 kg (154 lb). Last 5 Encounter BP Readings: Date: BP: 12/20/2023 114/64 06/05/2023 138/74 12/23/2022 118/64 12/14/2022 122/64 11/11/2022 132/68 Physical Exam Constitutional: Appearance: Normal appearance. HENT: Head: Normocephalic. Eyes: Conjunctiva/sclera: Conjunctivae normal. Cardiovascular: Rate and Rhythm: Normal rate and regular rhythm. Heart sounds: Normal heart sounds. Comments: Mild puffiness noted but not pitting in lower legs. Pulmonary: Effort: Pulmonary effort is normal. Breath sounds: Normal breath sounds. Musculoskeletal: Right lower leg: Edema present. Left lower leg: Edema present. Skin: General: Skin is warm and dry. Neurological: General: No focal deficit present. Mental Status: She is alert and oriented to person, place, and time. Psychiatric: Mood and Affect: Mood normal. Behavior: Behavior normal. Thought Content: Thought content normal. Judgment: Judgment normal. Latest Ref Rng 12/22/2022 06/05/2023 12/18/2023 WBC 3.70 - 11.00 k/uL 6.97 5.13 RBC 3.90 - 5.20 m/uL 4.59 4.10 Hemoglobin 11.5 - 15.5 g/dL 14.2 12.5 Hematocrit 36.0 - 46.0 % 43.1 38.8 MCV 80.0 - 100.0 fL 93.9 94.6 MCH 26.0 - 34.0 pg 30.9 30.5 MCHC 30.5 - 36.0 g/dL 32.9 32.2 RDW-CV 11.5 - 15.0 % 13.0 13.0 Platelet Count 150 - 400 k/uL 222 192 MPV 9.0 - 12.7 fL 10.3 10.4 Neut% % 67.8 Abs Neut (ANC) 1.45 - 7.50 k/uL 3.48 Lymph% % 19.5 Abs Lymph 1.00 - 4.00 k/uL 1.00 Blanco% % 7.8 Abs Blanco <0.87 k/uL 0.40 Eosin% % 3.3 Abs Eosin <0.46 k/uL 0.17 Baso% % 1.2 Abs Baso <0.11 k/uL 0.06 Immature Gran % % 0.4 IMMATURE GRANS (ABS) <0.10 k/uL <0.03 NRBC /100 WBC 0.0 Absolute nRBC <0.01 k/uL <0.01 <0.01 DTYPE Auto Protein, Total 6.3 - 8.0 g/dL 7.1 6.6 Albumin 3.9 - 4.9 g/dL 4.2 4.0 Calcium 8.5 - 10.2 mg/dL 10.7 (H) 9.8 Bilirubin, Total 0.2 - 1.3 mg/dL 0.6 0.7 Alkaline Phosphatase 34 - 123 U/L 122 151 (H) AST 13 - 35 U/L 31 44 (H) ALT 7 - 38 U/L 12 35 Glucose 74 - 99 mg/dL 84 93 BUN 7 - 21 mg/dL 18 15 Creatinine 0.58 - 0.96 mg/dL 0.81 0.89 Sodium 136 - 144 mmol/L 140 140 Potassium 3.7 - 5.1 mmol/L 5.5 (H) 4.1 Chloride 98 - 107 mmol/L 105 107 CO2 22 - 30 mmol/L 22 23 Anion Gap 8 - 15 mmol/L 13 10 eGFR >=60 mL/min/1.73m 78 69 Total Cholesterol, Nonfasting <200 mg/dL 241 (H) 200 (H) Triglycerides, Nonfasting <150 mg/dL 161 (H) 120 HDL Cholesterol, Nonfasting >39 mg/dL 60 52 LDL Cholesterol, Nonfasting <100 mg/dL 149 (H) 124 (H) Non HDL Cholesterol, Nonfasting <130 mg/dL 181 (H) 148 (H) VLDL Cholesterol, Nonfasting <30 mg/dL 32 (H) 24 Total Chol/HDL Ratio, Nonfasting <5.10 mg/dL 4.02 3.85 LDL/HDL Ratio, Nonfasting <2.54 mg/dL 2.48 2.38 TSH 0.270 - 4.200 mIU/L 2.070 2.110 Free T4 0.9 - 1.7 ng/dL 1.3 1.4 Free T3 2.3 - 4.1 pg/mL 2.8 2.5 Vitamin D 25 Hydroxy 31.0 - 80.0 ng/mL 43.9 37.7 Legend: (H) High Assessment and Plan Encounter Diagnosis ICD-10-CM 1. Essential hypertension I10 COMPREHENSIVE METABOLIC PANEL COMPLETE BLOOD COUNT LIPID PANEL BASIC LIPID PANEL, NONFASTING BASIC METABOLIC PANEL Adjusting meds as noted in Patient Instruction 2. Ankle edema, bilateral M25.471 M25.472 MIld. Conservative management as discussed. Further evaluation and treatment as needed 3. Psychophysiological insomnia F51.04 zolpidem (AMBIEN) 5 mg tablet Stable on Ambien; effective and needs to stay on to keep sleep regular to prevent exacerbation of anxiety from sleep deprivation 4. Vitamin D deficiency E55.9 VITAMIN D 25 HYDROXY Level has been fine. 5. Encounter for immunization Z23 [employer] INSTRUCTIONS 6. Encounter for long-term current use of medication Z79.899 BASIC METABOLIC PANEL Above issues addressed with patient. Patient involved in shared decision making for management of medical issues. History and medications reviewed. Epic updated as needed Refills and/or prescriptions taken care of and meds adjusted as indicated after reviewed history, exam and labs. Health Maintenance reviewed. Updated record and/or ordered tests as recorded. Encouraged on efforts at healthy diet and regular exercise and adequate sleep. Liliam Alaniz MD documented in this encounterLouis [facility] Miscellaneous Notes* Letter - Coordinator, Mammography - 08/29/2023 10:31 AM EST August 29, 2023 PID: [id number] Winston Ohara [address] [place] [address] Dear Ms. Ohara, We are pleased to inform you that the results of your recent breast imaging exam on 08/28/2023 are normal. Early detection of cancer is very important. We also understand recommendations regarding breast cancer screening are controversial. Please discuss with your primary care provider which strategy is best for you and whether a mammogram is right for you. Your imaging studies and report will be kept on file at [facility] as part of your permanent medical record and are available for your continuing care. Thank you for allowing us to help in meeting your health care needs. Sincerely, Dr. Mendenhall Interpreting Radiologist [facility] (Normal over 40) documented in this encounterLouis Stokes [facility]10-12-2023 Discharge summary Author Jf Gallegos [facility] April 13, 2023 4:44pm Note Date/Time April 13, 2023 1 :10pm [facility] Medical Records Department [address] [place] [address] Emergency Department Summary 04/13/23 MR#: [id number] Acct: [id number] Name: WINSTON OHARA Rep #:[id number] : 1950 73 From: Jf Sinclair PCP: Dr. Liliam Alaniz MD Status:RE G ER Location: ED HPI History of Present Illness Chief Complaint: Palpitations Informant: patient Narrative Narrative: 73-year-old female presenting to the emergency room with atrial fibrillation. Patient has a history of atrial fibrillation and is currently on sotalol 40 mg twice a day as well as Xarelto. She has not missed any doses of her medications. She states she last saw cardiology (Dr. Thapa) in January. She hada Holter monitor performed at that time that did not show any runs of A-fib. Patient states that she has had cardioversion in the past. She has been on flecainide in the past. In January she had her sotalol decreased from 80 mg twice a day to 40 mg twice a day due to bradycardia. She denies any chest pain. She had an echocardiogram that showed dilated left and right atrium. [facility] Medical History Anxiety Arthritis Atrial fibrillation with RVR Dyspnea Essential (primary) hypertension Former smoker History of diverticulitis History of edema History of pain when walking Hx of thyroid cyst Insomnia Normal stress echocardiogram Paroxysmal atrial fibrillation (10/2017) Paroxysmal atrial flutter (10/2017) Persistent atrial fibrillation (11/02/20) Post-menopausal Single kidney Wears glasses Home Medications fluticasone propionate 50 mcg/actuation nasal spray,suspension 15.8 ml NS DAILY PRN ALLERGIES 10/19/17 [History Last Taken 02/02/21] bismuth subsalicylate 262 mg tablet (Pepto-Bismol) 2 tablet PO Q30-60M PRN Diarrhea 10/08/20 [History Last Taken 02/02/21] cholecalciferol (vitamin D3) 25 mcg (1,000 unit) tablet (Vitamin D3) 50 mcg PO DAILY Supplement 01/20/21 [History Last Taken 02/05/21 17:00] acetaminophen 500 mg tablet 1,000 mg (2 x 500 mg) PO Q8 #0 tabs 02/04/21 [Rx Last Taken Unknown] zolpidem 5 mg tablet 5 mg PO QHS PRN Sleep 03/09/21 [History Last Taken Unknown] sertraline 25 mg tablet 25 mg PO DAILY 08/09/22 [History Last Taken Unknown] rivaroxaban 20 mg tablet 20 mg PO DAILY #90 tabs 10/31/22 [Rx Last Taken Unknown] lisinopril 30 mg tablet 30 mg PO DAILY #90 tabs 11/14/22 [Rx Last Taken Unknown] sotalol 80 mg tablet 40 mg (1/2 x 80 mg) PO BID #180 tabs 03/10/23 [Rx Last Taken Unknown] Allergy/AdvReac Type Severity Reaction Status Date / Time flecainide Allergy Left Verified 04/13/23 12:39 Bundle Branch Block/BUE tingling/leg weakness aspirin [ASA] AdvReac ONLY HAS Verified 04/13/23 12:39 ONE KIDNEY, TOLD TO AVOID cortisone AdvReac CHEST HOT Verified 04/13/23 12:39 & WEIRD NSAIDS (Non-Steroidal AdvReac ONLY HAS Verified 04/13/23 12:39 Anti-Inflamma ONE KIDNEY, TOLD TO AVOID Family History Mother Hypertension Father Hypertension Prostate cancer Leukemia Sister vein problem DVT (deep venous thrombosis) Hypertension Surgical History History of cardioversion (11/11/20) History of colon surgery History of left knee replacement History of nephrectomy Hx of appendectomy Hx of cystoscopy Social History Smoking Status: Former smoker alcohol intake: never substance use type: does not use caffeine: Yes Type: coffee Number of servings: 4 what type of physical activity do you participate in: walking frequency: daily ROS ROS ED Constitutional Constitutional ED: Denies chills or weight loss Eyes Eyes: Denies change in vision or diplopia ENT ENT ED: Denies ear pain, rhinorrhea or sore throat Cardiovascular Cardiovascular: Reports palpitations and racing heartbeat; Denies chest pain or orthopnea Respiratory/Chest Respiratory/Chest: Denies cough, dyspnea or orthopnea Gastrointestinal Gastrointestinal: Denies abdominal pain, diarrhea, nausea or vomiting Genitourinary Genitourinary ED: Denies dysuria, hematuria or urinary frequency Musculoskeletal Musculoskeletal: Denies arthralgias or myalgias Integumentary Denies abscess or rash Neurologic Neurologic: Denies headache(s) or weakness Psychiatric Psychiatric: Denies anxiety, depression, suicidal ideation or suicidal thoughts Endocrine Endocrinology: Denies polydipsia, polyphagia or polyuria Allergic/Immunologic Allergic/Immunologic ED: Denies mouth swelling, tongue swelling or urticaria EXAM Physical Exam Const Vital Signs: 04/13/23 12:38 04/13/23 14:11 04/13/23 14:43 Temperature 97.8 F Temperature Source Temporal Pulse Rate 95 118 H 122 H Pulse Rate [1 (Initial Baseline)] Pulse Rate [3] Pulse Rate [4] Respiratory Rate 18 13 Respiratory Rate [1 (Initial Baseline)] Respiratory Rate [3] Respiratory Rate [4] Blood Pressure 178/107 H 138/96 H Blood Pressure [1 (Initial Baseline)] Blood Pressure [4] Blood Pressure Mean 130 Pulse Ox 98 100 100 Oxygen Delivery Method Room Air Room Air Nasal Cannula Oxygen Delivery Method [1 (Initial Baseline)] Oxygen Delivery Method [3] Oxygen Delivery Method [4] Oxygen Flow Rate (L/min) 2 Oxygen Flow Rate (L/min) [1 (Initial Baseline)] Oxygen Flow Rate (L/min) [4] 10/12/23 14:54 04/13/23 15:03 04/13/23 15:08 Temperature Temperature Source Pulse Rate Pulse Rate [1 (Initial Baseline)] 121 H Pulse Rate [3] 119 H Pulse Rate [4] 61 Respiratory Rate Respiratory Rate [1 (Initial Baseline)] 16 Respiratory Rate [3] 20 H Respiratory Rate [4] 16 Blood Pressure Blood Pressure [1 (Initial Baseline)] 118/88 H Blood Pressure [4] 135/81 H Blood Pressure Mean Pulse Ox Oxygen Delivery Method Nasal Cannula Room Air Oxygen Delivery Method [1 (Initial Baseline)] Nasal Cannula Oxygen Delivery Method [3] Nasal Cannula Oxygen Delivery Method [4] Nasal Cannula Oxygen Flow Rate (L/min) 99 Oxygen Flow Rate (L/min) [1 (Initial Baseline)] 2 Oxygen Flow Rate (L/min) [4] 4 04/13/23 15:13 04/13/23 16:00 04/13/23 16:36 Temperature Temperature Source Pulse Rate 56 L 59 L Pulse Rate [1 (Initial Baseline)] Pulse Rate [3] Pulse Rate [4] Respiratory Rate 13 13 Respiratory Rate [1 (Initial Baseline)] Respiratory Rate [3] Respiratory Rate [4] Blood Pressure 134/71 H 150/78 H Blood Pressure [1 (Initial Baseline)] Blood Pressure [4] Blood Pressure Mean 92 102 Pulse Ox 97 97 Oxygen Delivery Method Room Air Room Air Room Air Oxygen Delivery Method [1 (Initial Baseline)] Oxygen Delivery Method [3] Oxygen Delivery Method [4] Oxygen Flow Rate (L/min) Oxygen Flow Rate (L/min) [1 (Initial Baseline)] Oxygen Flow Rate (L/min) [4] Positive well nourished and well developed General Appearance ED: well developed HEENT Reports normocephalic, head/scalp atraumatic and moist mucous membranes Eyes PERRL and EOMs intact bilaterally Neck no lymphadenopathy, supple and no JVD Resp normal respiratory effort and clear to auscultation bilaterally Cardio no murmurs Rate: tachycardic Rhythm: abnormal rhythm irregularly irregular GI normal to inspection, nondistended, normoactive bowel sounds and non-tender Palpation: soft Back/Spine no CVA tenderness and normal ROM Extremity normal to inspection General Extremety ED: Negative for edema General Extremity: Negative for edema Neuro oriented x3 and CN's II-XII intact bilaterally Sensorium / Orientation: alert Motor Exam: strength 5/5 throughout Psych mental status grossly normal Mood & Affect: Negative for depressed or tearful Skin no rashes or lesions noted and no wounds MDM MDM MDM Narrative Medical decision making narrative: EKG concerns atrial fibrillation with rapid ventricular response. White count 6.2 with a troponin of 7. Sodium potassium magnesium are within normal limits. My interpretation of the x-ray no acute status. I discussed the case with the patient's upsetter helper Dr. Thapa. We are both in agreement that it would be appropriate to cardiovert the patient and if successful be able to discharge her home. She has not missed any doses of her Xarelto has otherwise been a very compliant individual with successful cardioversion in the past. Patient provided written and oral informed consent for the use of fentanyl and propofol Versed procedural sedation for a cardioversion procedure. Patient received a total of 25 mcg of fentanyl followed by 0.5 mg bolus of propofol and then 0.25 mg/kg aliquots of propofol until adequate sedation was achieved. A total of 70 mg of propofol was needed to achieve sedation. A synchronized 200 J biphasic shock was delivered with return to sinus rhythm. Patient was allowed to recover. Total procedure time was 7 minutes. The patient will continue to be observed. She remains in normal sinus rhythm she will be discharged home with follow-up with cardiology. She did receive return instructions. History & Record Review Discussion w/independent historian: Patient and Significant other Additional record(s) reviewed:: Prior outpatient record, Prior ED visit and Prior labs Lab Data Attestation: I reviewed the patient's lab results. Labs: Laboratory Results - last 24 hr 04/13/23 12:45 WBC 6.2 RBC 5.05 Hgb 15.3 H Hct 47.6 H MCV 94.3 MCH 30.3 MCHC 32.1 RDW Std Deviation 43.5 RDW Coeff of Priscilla 12.5 Plt Count 230 MPV 10.1 Immature Gran % (Auto) 0.500 Neut % (Auto) 71.9 H Lymph % (Auto) 17.7 L Blanco % (Auto) 6.8 Eos % (Auto) 2.3 Baso % (Auto) 0.8 Absolute Neuts (auto) 4.5 Absolute Lymphs (auto) 1.10 Nucleated RBC % 0 Sodium 137 Potassium 4.5 Chloride 107 Carbon Dioxide 24.0 Anion Gap 6 BUN 18 Creatinine 0.98 Estim Creat Clear Calc 45.47 Est GFR (MDRD) Af Amer 72 Est GFR (MDRD) Non-Af 60 BUN/Creatinine Ratio 18.4 Glucose 119 H Calcium 9.4 Magnesium 2.4 Troponin I High Sens 7 Radiography Diagnostic Testing: Clinical Impression(s) from Imaging Studies Chest X-Ray 04/13/23 13:14 IMPRESSION: Degenerative changes, as described above. No demonstrated acute cardiopulmonary process. Electronically Signed: Lyssa Coleman MD at 13:49 EDT , EKG Initial EKG: Attestation: I personally reviewed and interpreted this EKG as follows: Comments: Atrial fibrillation with rapid ventricular response of 141 bpm. Follow-up EKG: Attestation: I personally reviewed and interpreted this EKG as follows: Comments: Sinus bradycardia with ventricular rate of 56 bpm. No concerning features of ACS noted. Management Discussion w/another healthcare provider: Internet Marketing Coordinator (Cardiology (Dr. Thapa)) Procedures Procedural Sedation 1 (Initial Baseline): Consent Signed: Yes Any Problems With Anesthesia: No You/Your family experience fever (hyperthermia) w/anesthesia: No Sedation medication: Propofol Dose: 70 Route: IV Maliampati Score: Class II ASA Classification: II Discharge Plan Triage Chief Complaint: Palpitations ED Provider: Jf Gallegos Dx/Rx/DC Orders Clinical Impression: Anticoagulated, Paroxysmal atrial fibrillation Instructions: AFib Dc Prescriptions: No Action Pepto-Bismol 262 mg tablet 2 tablet PO Q30-60M PRN (Reason: Diarrhea) Rx Instructions: do not exceed 16 tabs per 24 hrs zolpidem 5 mg tablet 5 mg PO QHS PRN (Reason: Sleep) fluticasone propionate 9.9 ML spray,suspension 15.8 ml NS DAILY PRN (Reason: ALLERGIES) cholecalciferol (vitamin D3) [Vitamin D3] 25 mcg (1,000 unit) Tablet 50 mcg PO DAILY acetaminophen 500 mg Tablet 1,000 mg PO Q8 Qty: 0 0RF Rx Instructions: Do not take more than 3000 mg Tylenol in a 24-hour period. sertraline 25 mg tablet 25 mg PO DAILY Patient Comments: take 1 tablet by mouth once daily rivaroxaban 20 mg tablet 20 mg PO DAILY Qty: 90 3RF Patient Comments: LAST DOSE 01/28/21 lisinopril 30 mg tablet 30 mg PO DAILY Qty: 90 3RF sotalol 80 mg tablet 40 mg PO BID Qty: 180 3RF Primary Care Provider: Liliam Alaniz Referrals: Sterling Thapa MD [Med Staff - Active Staff] - As soon as possible (I would recommend calling to arrange early follow-up.) Liliam Alaniz MD [Primary Care Provider] - Disposition Disposition: Home, Self Care What to do if you have Problems For any increased pain, shortness of breath, bleeding, nausea or vomiting, chestpain, or any unexpected problems, contact your Primary Care Provider. Call [facility] ([phone]) or report to the closest Emergency Room. Call 911 if necessary. 04/13/23 1644 <Electronically signed by Jf Gallegos DO> Cosigner Signature (if applicable): CC: Dr. Liliam Alaniz MD ~ Signed [facility] Work Phone: [phone] Instructions* Patient Instructions* Swetha Gupta - 12/14/2022 1:52 PM EDT Post Sclerotherapy Instructions If you have a bandage on your leg, leave it on for 24 hours or as instructed, then replace with compression stockings as ordered. You may take a shower when the bandage is removed or you are instructed to remove the compression stockings. Apply rubbing alcohol to the vein puncture site(s) after the shower. No baths, swimming pools or hot tubs for 72 hours After the first shower, you may wear your compression stockings, if ordered, during the day for 2 weeks. The more you wear your stockings, the better the results will be. Activity of normal daily living may be resumed when you return home. Elevate your leg above your heart whenever you are sitting or resting. Take it easy for 2 days. You are encouraged to walk at least 20 minutes every several hours during the day. Walking will help the leg's recovery process. Please also refrain from vigorous gym exercises or running for 7 days following your procedure. Reviewed signs and symptoms of infection, call office or go to ER if these occur. Avoid exposure to excessive sun during the 2 weeks following the procedure. If you notice discoloration over the vein treated, avoid excessive sun for one year. The staining may go away over time andmay take up to 1-2 years to completely disappear You should not require any pain medications. If you experience mild pain, take over the counter medications of your choice: Tylenol, Advil, etc. Icing the sites for 5 minutes twice a day for the first 2 days can help with the inflammation and discomfort Your treatment was performed with Polidocanol solution. This should damage the vessel wall and thuscause eliminations of the vein. Mild bruising may occur. You may notice hardening of the vein in the areas treated. You will gradually notice the veins fading. This can take 1-6 months or longer for you to notice the full effect. If any skin blistering is noticed, please call the office. documented in this encounterLouis [facility]06-14-2023 History of Present illness Narrative* Tuyet Golden DO - 12/14/2022 1:30 PM EDT S: Winston is here to follow up on symptomatic varicose veins. O: 12/14/22 1310 BP: 122/64 BP Site: Left Arm BP Position: Sitting BP Cuff Size: Regular Adult Pulse: (!) 58 SpO2: 99% The patient was placed in the supine position and the bilateral lower extremities were cleansed with isopropyl alcohol. Syringes containing 2 mL of 0.5% Asclera were prepared and veins in the anterior, medial, and lateral legs were injected using an angled 30-gauge needle. A total of 3 mL of solution injection. Cotton balls were used to apply pressure secured down with paper tape. Once all injections were completed the legs were cleansed with isopropyl alcohol and the patient put on compression. There were no complications and the patient tolerated the procedure well. A/P: Symptomatic varicose veins documented in this [facility]06-12-2023 Miscellaneous Notes* Telephone Encounter - Jessica Benoit LPN - 12/12/2022 4:40 PM EDT Last office visit: 09/06/22 Next appointment scheduled: 12/23/22 Patient phones requesting refills as follows: Requested Prescriptions Pending Prescriptions Disp Refills sertraline (ZOLOFT) 25 mg tablet 90 tablet 1 Sig: Take 1 tablet by mouth once daily. Jessica Benoit LPN documented in this encounterLouis Stokes [facility]05-15-2023 Miscellaneous Notes* Telephone Encounter - Liliam Alaniz MD - 11/14/2022 1:08 PM EDT RX written so may give 6 month RX at [facility] follow up appointment to last till the next 6 month follow up The following approved medication requests have been transmitted electronically. Requested Prescriptions Signed Prescriptions Disp Refills zolpidem (AMBIEN) 5 mg tablet 30 tablet 1 Sig: Take 1 tablet by mouth at bedtime as needed for sedation for up to 60 days. Authorizing Provider: LILIAM ALANIZ MD * Telephone Encounter - Lyssa Ortiz LPN - 11/14/2022 11:27 AM EDT Patient has been identified by name and date of : Yes, Provider Shady Date 11/14/22 Time 11:28am Patient phones for refill(s): Requested Prescriptions Pending Prescriptions Disp Refills zolpidem (AMBIEN) 5 mg tablet 30 tablet 5 Sig: Take 1 tablet by mouth at bedtime as needed for sedation for up to 180 days. Date of last office visit in primary care: 09/06/22 Last 2 Encounter Wt Readings: Date: Wt: 09/13/2022 67.1 kg (148 lb) 09/06/2022 68 kg (150 lb) Please advise. Thank you. Lyssa Ortiz LPN documented in this encounterLouis Stokes [facility]05-12-2023 History of Present illness Narrative* Tuyet Golden, DO - 11/11/2022 12:06 PM EDT Images from the original note were not included. [facility] [place] DEPARTMENT OF VASCULAR SURGERY OUTPATIENT VISIT DATE November 11, 2022 OUTPATIENT VISIT TYPE ESTABLISHED SERVICE DATE: 11/11/2022 SERVICE TIME: 2:31 PM PRIMARY CARE PHYSICIAN: Liliam Alaniz MD HISTORY OF PRESENT ILLNESS: Ms. Ohara is a 72 year old female who presents today for a vascular surgery follow-up visit on symptomatic spider varicose veins. Reviewed procedure and consent obtained. 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 Thapa Peptic ulcer, unspecified site, unspecified as acute or chronic, without mention of hemorrhage, perforation, or obstruction Personal history of colonic polyps Thyroid cyst 09/24/2014 PAST SURGICAL HISTORY Procedure Laterality Date ABDOMINAL SURGERY HX APPENDECTOMY 12/2000 APPENDECTOMY HX BIOPSY BREAST OPEN INCISIONAL Bx of breast, incisional BX BREAST W/DEVICE 1ST LESION STEREOTACTIC GUID Left 09/03/2021 COLON SURGERY HX COLONOSCOPY 11/02/2021 repeat in 10 years COLONOSCOPY FLX DX W/COLLJ SPEC WHEN PFRMD 05/01/2006 Colonoscopy COLONOSCOPY FLX DX W/COLLJ SPEC WHEN PFRMD 09/22/2016 Colonoscopy COLONOSCOPY W/BIOPSY SINGLE/MULTIPLE 04/26/2010 ESWL 08/2009 FNA WITH IMAGING 09/24/2014 U/S FNA left thyroid cyst JOINT REPLACEMENT HX KNEE SURGERY HX Left 2020 PAST SURGICAL HISTORY OF 12/2000 right colectomy, right salpingoopherectomy PAST SURGICAL HISTORY OF 2012 right kidney donor SOCIAL HISTORY Social History Tobacco Use Smoking status: Former Packs/day: 1.00 Years: 15.00 Pack years: 15.00 Types: Cigarettes Quit date: 07/03/1986 Years since quittin.3 Smokeless tobacco: Never Tobacco comments: Quit 1986 Vaping Use Vaping Use: Never used Substance Use Topics Alcohol use: No Drug use: No MEDICATIONS: lisinopril (ZESTRIL, PRINIVIL) 20 mg tablet Take 1 tablet by mouth once daily. (Patient taking differently: Take 30 mg by mouth once daily.) sertraline (ZOLOFT) 25 mg tablet Take 1 tablet by mouth once daily. (Patient taking differently: Take 25 mg by mouth once daily. 1 tablet PO daily) zolpidem (AMBIEN) 5 mg tablet Take 1 tablet by mouth at bedtime as needed for sedation for up to 180 days. XARELTO 20 mg tablet Take 1 tablet by mouth once daily. (cardiology filling) sotalol (BETAPACE) 80 mg tablet Take 80 mg by mouth twice daily. Cholecalciferol, Vitamin D3, 25 mcg (1,000 unit) cap Take 2 capsules by mouth once daily. fluticasone (FLONASE) 50 mcg/actuation nasal spray Use 2 Sprays in each nostril once daily. (Patient taking differently: Use 2 Sprays in each nostril as needed.) acetaminophen (TYLENOL) 500 mg tablet EVERY 6 HOURS NEEDED bismuth subsalicylate(PEPTO-BISMOL 262 MG TAB) Takes 2 pills daily as needed for IBS flare up ALLERGIES: ALLERGIES Allergen Reactions Flagyl [Metronidazo* GI Upset Flecainide Other: See Comments Caused irregular EKG SOB PHYSICAL EXAM: BP 132/68 (BP Site: Left Arm, BP Position: Sitting, BP Cuff Size: Regular Adult) Pulse 62 LMP 08/31/2009 SpO2 99% The patient was placed in the supine position and the bilateral lower extremities were cleansed with isopropyl alcohol. Syringes containing 2 mL of 0.5% Asclera were prepared and veins in the anterior, medial, posterior, and lateral legs were injected using an angled 30-gauge needle. A total of 7 mL of solution injection. Cotton balls were used to apply pressure secured down with paper tape. Onceall injections were completed the legs were cleansed with isopropyl alcohol and the patient put on coban compression wrap. There were no complications and the patient tolerated the procedure well. IMPRESSION: Ms. Ohara is a 72 year old female symptomatic varicose spider veins . PLAN and RECOMMENDATIONS: Reviewed home going instructions Follow up in one month SIGNATURE: Tuyet Golden DO PATIENT NAME: Wintson Ohraa DATE: November 11, 2022 TIME: 2:31 PM documented in this encounterLouis [facility]05-12-2023 Instructions* Patient Instructions* Swetha Gupta - 11/11/2022 11:30 AM EDT Post Sclerotherapy Instructions If you have a bandage on your leg, leave it on for 24 hours or as instructed, then replace with compression stockings as ordered. You may take a shower when the bandage is removed or you are instructed to remove the compression stockings. Apply rubbing alcohol to the vein puncture site(s) after the shower. No baths, swimming pools or hot tubs for 72 hours After the first shower, you may wear your compression stockings, if ordered, during the day for 2 weeks. The more you wear your stockings, the better the results will be. Activity of normal daily living may be resumed when you return home. Elevate your leg above your heart whenever you are sitting or resting. Take it easy for 2 days. You are encouraged to walk at least 20 minutes every several hours during the day. Walking will help the leg's recovery process. Please also refrain from vigorous gym exercises or running for 7 days following your procedure. Reviewed signs and symptoms of infection, call office or go to ER if these occur. Avoid exposure to excessive sun during the 2 weeks following the procedure. If you notice discoloration over the vein treated, avoid excessive sun for one year. The staining may go away over time andmay take up to 1-2 years to completely disappear You should not require any pain medications. If you experience mild pain, take over the counter medications of your choice: Tylenol, Advil, etc. Icing the sites for 5 minutes twice a day for the first 2 days can help with the inflammation and discomfort Your treatment was performed with Polidocanol solution. This should damage the vessel wall and thuscause eliminations of the vein. Mild bruising may occur. You may notice hardening of the vein in the areas treated. You will gradually notice the veins fading. This can take 1-6 months or longer for you to notice the full effect. If any skin blistering is noticed, please call the office. documented in this [facility]03-23-2023 Miscellaneous Notes* Telephone Encounter - Janessa Ashby - 09/22/2022 11:02 AM EDT Spoke to patient to schedule sclero with dr. Golden, encounter closed. * Telephone Encounter - Komal Mccall - 09/16/2022 1:56 PM EDT Patient calling in stating she was supposed to be called to get scheduled for a treatment for my spider veins and is asking for a call back. Please advise documented in this [place] [id number] Miscellaneous Notes* Telephone Encounter - Swetha Gupta - 09/22/2022 10:12 AM EDT [employer] message sent to the patient documented in this [facility]03-07-2023 Instructions* Patient Instructions* Liliam Alaniz MD - 09/06/2022 11:33 AM EST r Surgeon--Dr. Tuyet Golden documented in this [facility]03-07-2023 History of Present illness Narrative* Liliam Alaniz MD - 09/06/2022 11:08 AM EST This note was created using [employer]. Subjective Winston Ohara is a 72 year old female. Patient presents with: Discuss rcent labs SUBJECTIVE: Winston Ohara is a 72 year old year old lady here today for follow up appointment for review of medical conditions. Working with 's office for issues with BP. Dose lisinopril increased another 10 mg. BP at home all over the place. BP cuff was validated at their office. Was up to 130s to 140s prior to dose increased. Still same this past week. Might not be waiting 15 minutes each time before checking. Takes med in AM and usually waits at least an hour after taking her med. Depression Screening 12/13/2020 12/22/2021 06/22/2022 09/06/2022 PHQ-2 Score 0 0 0 0 Depression screening tool completed and reviewed. Based on score and interview, patient is not at risk for depression. Screening tool discussed with patient, and I recommended no further interventionat this time. 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 Thapa Peptic ulcer, unspecified site, unspecified as acute or chronic, without mention of hemorrhage, perforation, or obstruction Personal history of colonic polyps Thyroid cyst 09/24/2014 Current Outpatient Medications Medication Sig lisinopril (ZESTRIL, PRINIVIL) 20 mg tablet Take 1 tablet by mouth once daily. (Patient taking differently: Take 30 mg by mouth once daily.) sertraline (ZOLOFT) 25 mg tablet Take 1 tablet by mouth once daily. (Patient taking differently: Take 25 mg by mouth once daily. 1/2 tablet PO daily) zolpidem (AMBIEN) 5 mg tablet Take 1 tablet by mouth at bedtime as needed for sedation for up to 180 days. XARELTO 20 mg tablet Take 1 tablet by mouth once daily. (cardiology filling) sotalol (BETAPACE) 80 mg tablet Take 80 mg by mouth twice daily. Cholecalciferol, Vitamin D3, 25 mcg (1,000 unit) cap Take 2 capsules by mouth once daily. fluticasone (FLONASE) 50 mcg/actuation nasal spray Use 2 Sprays in each nostril once daily. (Patient taking differently: Use 2 Sprays in each nostril as needed.) acetaminophen (TYLENOL) 500 mg tablet EVERY 6 HOURS NEEDED bismuth subsalicylate(PEPTO-BISMOL 262 MG TAB) Takes 2 pills daily as needed for IBS flare up No current facility-administered medications for this visit. FAMILY HISTORY Problem Relation Age of Onset Hypertension Mother other (IBS) Mother Prostate Cancer Father Hypertension Father Hypertension Sister Breast Cancer Sister other (Thyroid Cancer) Other 30 Niece (sister's daughter) Review of Systems Objective BP 124/72 Pulse (!) 59 Temp 36.3 C (97.4 F) Resp 18 Wt 68 kg (150 lb) LMP 08/31/2009 SpO2 99% BMI 25.75 kg/m Last 5 Encounter Wt Readings: Date: Wt: 09/06/2022 68 kg (150 lb) 06/22/2022 70.3 kg (155 lb) 02/22/2022 69.4 kg (153 lb) 02/07/2022 68.5 kg (151 lb) 12/22/2021 67.6 kg (149 lb) No waist measurement recorded Estimated body mass index is 25.75 kg/m as calculated from the following: Height as of 06/22/22: 162.6 cm (5' 4). Weight as of this encounter: 68 kg (150 lb). Last 5 Encounter BP Readings: Date: BP: 09/06/2022 124/72 06/22/2022 136/84 02/22/2022 136/84 02/07/2022 124/70 12/22/2021 124/60 Physical Exam Constitutional: Appearance: Normal appearance. HENT: Head: Normocephalic. Eyes: Conjunctiva/sclera: Conjunctivae normal. Cardiovascular: Rate and Rhythm: Normal rate and regular rhythm. Heart sounds: Normal heart sounds. Pulmonary: Effort: Pulmonary effort is normal. Breath sounds: Normal breath sounds. Musculoskeletal: Right lower leg: No edema. Left lower leg: No edema. Skin: General: Skin is warm and dry. Neurological: General: No focal deficit present. Mental Status: She is alert and oriented to person, place, and time. Psychiatric: Mood and Affect: Mood normal. Behavior: Behavior normal. Thought Content: Thought content normal. Judgment: Judgment normal. Component Latest Ref Rng & Units 11/21/2012 08/27/2014 02/12/2016 03/23/2017 04/03/2018 04/12/2019 02/02/2022 02/22/2022 06/10/2022 08/17/2022 T4 5.0 - 11.0 ug/dL 8.0 T4 Uptake 0.70 - 1.20 0.98 FTI 6.0 - 11.0 ug/dL 8.2 TSH 0.270 - 4.200 mIU/L 4.790 2.480 4.380 4.340 4.780 2.250 2.870 4.260 (H) 2.790 Free T4 0.9 - 1.7 ng/dL 1.3 1.3 1.5 1.3 1.4 1.3 Microsomal Antibody <5.6 IU/mL 2.6 Free T3 2.3 - 4.1 pg/mL 3.1 2.6 Assessment and Plan Encounter Diagnosis ICD-10-CM 1. Elevated TSH R79.89 Resolved again with normal T3 and T4 2. Essential hypertension I10 3. Paroxysmal atrial fibrillation (HCC) I48.0 Above issues addressed with patient. Patient involved in shared decision making for management of medical issues. History and medications reviewed. Epic updated as needed Refills and/or prescriptions taken care of and meds adjusted as indicated after reviewed history, exam and labs. Health Maintenance reviewed. Updated record and/or ordered tests as recorded. Encouraged on efforts at healthy diet and regular exercise and adequate sleep. Reassurance that thyroid labs are fine--no signs of hyper pr hypothyroidism, no signs of cancer based on labs or history, .etc Monitor labs as needed. BP controlled. Continue present management. Stable from cardiac standpoint. Further evaluation and treatment as indicated. I spent a total of 25 minutes on the date of the service which included [id number] patient care, completing clinical documentation, obtaining and/or reviewing separately obtained history, performing a medically appropriate examination, and ordering medications, tests, or procedures. Liliam Alaniz MD documented in this encounterLouis [facility]03-02-2023 Miscellaneous Notes* Telephone Encounter - Kelin Maradiaga RN - 09/01/2022 2:32 PM EST Patient called to schedule appointment. She says she needs BP check also. Scheduled 09/06/22 with PCP. Kelin Maradiaga RN * Telephone Encounter - Gladys Juan LPN - 08/29/2022 1:41 PM EST Component Latest Ref Rng & Units 08/17/2022 TSH 0.270 - 4.200 mIU/L 2.790 Free T4 0.9 - 1.7 ng/dL 1.3 Free T3 2.3 - 4.1 pg/mL 2.6 Patient calling asking if she should be taking thyroid medication? Patient phone number is [phone]. Please advise documented in this encounterLouis Stokes [facility]02-20-2023 Miscellaneous Notes* Telephone Encounter - Jessica Benoit LPN - 08/22/2022 3:07 PM EST Being addressed in another My Chart encounter dated 08/18/22. documented in this encounterLouis Stokes [facility] Center01-26-2023 History of Present illness Narrative* Bita Gagnon, RT(R) - 07/28/2022 1:30 PM EST Radiology Service Progress Note PATIENT NAME: Winston Ohara DATE OF SERVICE: July 28, 2022 TIME: 1:31 PM PATIENT IDENTITY VERIFICATION COMPLETED USING TWO (2) IDENTIFIERS: Name and Date of confirmedby patient verbally. FALL SCREENING: Has the patient had 2 falls in the last year or 1 fall with injury or currently using an Ambulatory Assistive Device (Walker, Cane, Wheelchair, Crutches, etc.)? No PATIENT GENDER DATA: Female. status: : No status: NO. PATIENT RELEVANT IMPLANT DATA REVIEWED: Not Applicable RADIOLOGY DEPARTMENT: Mammography PERIPHERAL IV DATA: Not applicable SIGNED BY: RT Cheko(R) July 28, 2022 1:31 PM documented in this encounterLouis Stokes [facility] Center01-06-2023 Miscellaneous Notes* Telephone Encounter - Barbra Daniels APRN.CNP - 07/08/2022 3:59 PM EST See my chart message * Telephone Encounter - Terri Henley RN - 07/08/2022 10:19 AM EST Patient calls and states that she continues to have sinus congestion and drainage. Patient states that drainage that drainage is mostly clear with some yellow. Patient just calling to make sure that she does not have a sinus infection. Patient states that provider can send response through [employer]. Please review and advise, Terri Henley RN documented in this encounterLouis Stokes Cleveland [facility] Center12-24-2022 History of Present illness Narrative* Liliam Alaniz MD - 06/25/2022 12:30 PM EST Telemedicine Evaluation for COVID-19 Infection Audio only was used for evaluation of this patient. Location of patient: [facility] Winston Ohara is a 72 year old female who presents with 1 day of symptoms that are stable with fevers responding to tylenol. Symptoms include: Fever (?100.4F): Yes but measured 99.4 or Chills: Yes Cough: No more than usual but some chest congestion noted Shortness of breath: No or Difficulty breathing: No Fatigue: Yes Muscle aches: Yes Headache: Yes (mild) New loss of smell or taste: No Sore throat: Yes Nasal congestion: Yes or Rhinorrhea: Yes Nausea: Yes or Vomiting: No Diarrhea: No new diarrhea issues (has from sotalol) Noted that has COVID too. OTC meds/remedies that patient has tried: acetaminophen and Flonase. High risk category assessment Age > 60 years old Hypertension Exposures: Sick contacts? Yes Family or close contacts with confirmed/probable COVID-19 in last 14 days? Yes She reports that she quit smoking about 36 years ago. Her smoking use included cigarettes. She has a 15.00 pack-year smoking history. She has never used smokeless tobacco. OBJECTIVE VIDEO EXAM (if available) N/A Has not checked but has BP cuff. Does not have pulse ox ASSESSMENT/PLAN (U07.1) COVID-19 virus infection (primary encounter diagnosis) - Discussed symptom monitoring and supportive care - Red flag symptoms requiring follow up discussed Noted mild symptoms. Will decide if wants to start molnupiravir. Aware that cannot be on Paxlovid due to interaction with her med (Xarelto) and that molnupiravir is available at [facility] retail pharmacy ( needed to get from there due to his renal function). Closed today--not sure if will be open t omorrow or Monday, but has until Monday to start med wit be within 5 days of onset of illness. This patient encounter involved the screening or treatment of novel coronavirus infection (COVID-19). Molnupiravir Eligibility and Patient Discussion [facility] Formulary Restriction Criteria: Adult outpatients 18 years and older with ALL of the following: [x] Patient has positive SARS-COV-2 viral test (PCR or antigen test) during current illness [x] Patient has symptoms for 5 days or less [x] Not requiring hospitalization at any time for management of COVID-19 [x] Not requiring supplemental oxygen or a change in baseline supplemental oxygen [x] Not utilized for pre-exposure or post-exposure prophylaxis for prevention of COVID-19 [x] Patient is not or lactating [x] Meeting at least one of the criteria for high risk of progression to severe COVID-19: [x] Age over 65 years [] Cancer [] Chronic kidney disease [] Chronic liver disease [] Chronic lung diseases, including cystic fibrosis [] Dementia or other neurological conditions [] Diabetes (type 1 or type 2) [] Disabilities, including Down syndrome and neurodevelopmental disorders [] Heart conditions [] HIV infection [] Immunocompromised state [] Mental health conditions [] Medical related technological dependence (tracheostomy, gastrostomy, or positive pressure ventilation (not related to COVID) [] Overweight and obesity (BMI greater or equal to 25 for adults) [] Physical inactivity [] Sickle cell disease or thalassemia [] Smoking, current or former [] Solid organ or blood stem cell transplant [] Stroke or cerebrovascular disease [] Substance use disorders [] Tuberculosis [] People from racial and ethnic minority groups Criteria above are met: Yes Date of Positive Test:06/25/22 Date of Symptom Onset: 06/24/22 Patient received COVID vaccine: Yes / status reviewed: Females: [x] Patient is not currently and there is no possibility the patient could be (select one of the following): [] test does not need to be confirmed in patients who have undergone permanent sterilization, are currently using an intrauterine system or contraceptive implant, or in whom is not possible. [] Patients not meeting conditions above: assess whether the patient is based on the firstday of the last menstrual period in individuals who have regular menstrual cycles, is using reliable method of contraception correctly and consistently or have had a negative test [] A test is recommended if the individual has irregular menstrual cycles, is unsure of the first day of the last menstrual period or is not using effective contraception correctly and consistently [x] Patient is not currently . is not recommended during treatment and for four days after final dose of molnupiravir. [] Females have been advised to use a reliable method of contraception correctly and consistently for the duration of treatment and for four days after the last dose of molnupiravir N/A Males: [] Sexually active male with partner(s) of childbearing potential has been advised to use a reliable method of contraception correctly and consistently for intercourse for the duration of treatment and for three months after the last dose of molnupiravir I have discussed the use of the investigational therapeutic, molnupiravir, for the treatment of mild to moderate COVID-19 and its use under Emergency Use Authorization with the patient. The patient was informed that molnupiravir is not an FDA approved drug and that it is authorized for use under this Emergency Use Authorization. The patient was also informed of the significant knownbenefits and potential risks of molnupiravir, and the extent to which such potential risks and benefits are unknown. The patient was informed that there is mandatory reporting of all medication errors and serious adverse events potentially related to molnupiravir treatment within 7 calendar days from the onset of the event and that events up to 28 days after completion of therapy need to be reported. The discussion included alternatives to receiving molnupiravir, including clinical trials, and potential the risks and benefits of those alternatives. The patient was provided electronically withthe Fact Sheet for Patients, Parents and Caregivers. The patient was also instructed that in addition to the treatment with molnupiravir, he/she should continue to self-isolate and use infection control measures (e.g., wear mask, isolate, social distance, avoid sharing personal items, clean and disinfect high touch surfaces, and frequent handwashing) according to CDC guidelines. The patient stated understanding and gave verbal consent to proceeding with molnupiravir treatment. Liliam Alaniz MD June 25, 2022 1:13 PM I spent a total of at least 25 minutes on the date of the service which included preparing to see the patient, completing clinical documentation, counseling and educating the patient/family/caregiver, and ordering medications, tests, or procedures. [facility] Inst[facility]* Patient Instructions* Liliam Alaniz MD - 06/25/2022 12:30 PM EST Resources for Managing Anxiety During COVID Crisis https://www.virusanxiety.com https://www.cdc.gov/coronavirus/2019-ncov/prepare/muplyqmi-aoesvh-dxxbdca.html https://coronavirus.[place].gov/wps/portal/gov/covid-19/home/resources/resources-fo r-lxuzdw-dciuiq-pzdw-hnl-eoctm-19-pandemic www.[employer]/us/blog/mhr-xcfsr-ghrblneangrm//nrf-ascsrw-qligsbs irus-anxiety https://www.[employer]/us/blog/ovh-jlfvb-hbmtdoe//36-hoox-yohnqwl yi-bhdw-nspglxrqrw-now https://www.[employer]/us/blog/experimentations//0-fscuddmxvhh-ny evigqjjya-dsluweucge-kfneyszzv How to Protect Yourself & Others from COVID-19 Wash your hands often Wash your hands often with soap and water for at least 20 seconds especially after you have been lea public place, or after blowing your nose, coughing, or sneezing. If soap and water are not readily available, use a hand seed technician that contains at least 60% alcohol. Cover all surfaces of your hands and rub them together until they feel dry. Avoid touching your eyes, nose, and mouth with unwashed hands. Avoid close contact Inside your home: Avoid close contact with people who are sick. If possible, maintain 6 feet between the person who is sick and other household members. Outside your home: Put 6 feet of distance between yourself and people who don't live in your household. Cover your mouth and nose with a mask when around others Masks help prevent you from getting or spreading the virus. You could spread COVID-19 to others even if you do not feel sick. Everyone should wear a mask in public settings and when around people who don't live in your household, especially when other social distancing measures are difficult to maintain. Masks should not be placed on young children under age 2, anyone who has trouble breathing, or is unconscious, incapacitated or otherwise unable to remove the mask without assistance. Cover coughs and sneezes Always cover your mouth and nose with a tissue when you cough or sneeze or use the inside of your elbow and do not spit. Throw used tissues in the trash. Immediately wash your hands with soap and water for at least 20 seconds. Clean and disinfect Clean AND disinfect frequently touched surfaces daily. This includes tables, doorknobs, light switches, countertops, handles, desks, phones, keyboards, toilets, faucets, and sinks. Monitor Your Health Daily Be alert for symptoms. Watch for fever, cough, shortness of breath, or other symptoms of COVID-19. Especially important if you are running essential errands, going into the office or workplace, and in settings where it may be difficult to keep a physical distance of 6 feet. Take your temperature if symptoms develop. Don't take your temperature within 30 minutes of exercising or after taking medications that could lower your temperature, like acetaminophen. Travel Skip events that put you in contact with large groups of people (sporting events, concerts, theme marrufo, etc). Avoid unnecessary domestic and international travel, including travel through large international airports. If traveling, wipe down your airplane seat (and tray) with a disinfecting wipe. Office Visits If you have a fever, cough or shortness of breath, or are otherwise concerned you have COVID-19, weask that you do not come to any [facility] facility without calling your primary care physician or speaking to a provider using a virtual visit using [facility] Social[employer]im[employer]. You will be evaluated to determine if you require being seen in person or if you meet CDC guidelines for testing for COVID-19 based on symptoms, travel and exposures. If you meet criteria for testing, your [employer] provider or primary care physician will advise how to proceed with testing Immunosuppression There is no need to stop your immunosuppressive medications preemptively. If you become sick, please let your doctor know, and discuss with them prior to stopping any medications. At this point, we have no knowledge that patients on immunosuppressive medications are at higher risk of COVID-19 infection. People with weakened immune systems are at higher risk of getting severely sick from SARS-CoV-2, the virus that causes COVID-19. They may also remain infectious for a longer period of time than others with COVID-19, but we cannot confirm this until we learn more about this new virus. Steps You Can Take to Protect Your Health Continue your regular treatment plan. Don't stop any medications or treatments without talking to your doctor. Discuss any concerns about your treatment with your doctor. Keep your regularly scheduled medical appointments. Talk to your doctor about steps they are taking to reduce risk of exposure to COVID-19 in the office. Use telehealth services whenever possible if recommended by your doctor. Ensure that you are getting necessary tests prescribed by your doctor. Seek urgent medical care if you are feeling unwell. Talk to your doctor, insurer, and pharmacist about getting an emergency supply of prescription medications. Make sure you have at least 30 days of prescription medications, schz-vej-bbbteiq medicines, and supplies on hand in case you need or want to stay home for several weeks. Talk to your doctor or pharmacist about ways to receive your medications by mail. Take steps to care for your emotional health. Fear and anxiety about COVID-19 can be overwhelming and cause strong emotions. It is natural to feel concerned or stressed about COVID-19. - Learn more about stress and coping with anxiety here. Call your healthcare provider if stress gets in the way ofyour daily activities for several days in a row. If you are feeling overwhelmed with emotions like sadness, depression, or anxiety, or feel like youwant to harm yourself or others: Call 648 if you feel like you want to harm yourself or others Visit the Disaster Distress Helpline call , [place] [address] Visit the [employer] Domestic Violence Hotline or call and TTY Visit the National Suicide Prevention Lifeline or call and TTY or text Most importantly, don't panic. By following basic prevention measures such as hand hygiene and cover your cough, you are helping to keep yourself and others healthy. Additional information can be found on the CDC and [facility] web sites: https://www.cdc.gov/coronavirus/2019-nCoV/index.html https://[facility].org/coronavirus Beginning Home Isolation Isolation is used to separate people infected with SARS-CoV-2, the virus that causes COVID-19, frompeople who are not infected. People who are in isolation should stay home until it s safe for them to be around others. In the home, anyone sick or infected should separate themselves from others by staying in a specific sick room or area and using a separate bathroom (if available). Isolation or Quarantine: What's the difference? Quarantine keeps someone who might have been exposed to the virus away from others. Isolation keeps someone who is infected with the virus away from others, even in their home. Who needs to isolate People who have COVID-19 People who have symptoms of COVID-19 and are able to recover at home People who have no symptoms (are asymptomatic) but have tested positive for infection with SARS-CoV-2 Steps to take Stay home except to get medical care Monitor your symptoms. Stay in a separate room from other household members, if possible Use a separate bathroom, if possible Avoid contact with other members of the household and pets Don t share personal household items, like cups, towels, and utensils Wear a mask when around other people, if you are able to When to seek emergency medical attention Look for emergency warning signs* for COVID-19. If someone is showing any of these signs, seek emergency medical care immediately: Trouble breathing Persistent pain or pressure in the chest New confusion Inability to wake or stay awake Bluish lips or face *This list is not all possible symptoms. Please call your medical provider for any other symptoms that are severe or concerning to you. Call 911 or call ahead to your local emergency facility: Notify the starting sheet tank operator that you are seeking care for someone who has or may have COVID-19. Ending Home Isolation - When you can be around others after you had or likely had COVID-19 When you can be around others after you had or likely had COVID-19 If You Test Positive for COVID-19 (Isolation) Everyone, regardless of vaccination status: Stay home for 5 days. Note: Day 0 is your first day of symptoms or the date of collection of a positive viral test if no symptoms. Day 1 is the first full day after symptoms developed or test specimen was collected. If you have no symptoms or your symptoms are resolving after 5 days, you can leave your house. Continue to wear a mask around others for 5 additional days. If you have a fever, continue to stay home until your fever resolves, even if it is longer than 5 days. If You Were Exposed to Someone with COVID-19 (Quarantine) If you: 1. Have been boosted OR 2. Completed the primary series of Pfizer or Moderna vaccine within the last 6 months OR 3. Completed the primary series of J&J vaccine within the last 2 months THEN: 1. Wear a mask around others for 10 days. 2. Test on day 5, if possible. If you develop symptoms get a test and stay home. If You Were Exposed to Someone with COVID-19 (Quarantine) If you: 1. Completed the primary series of Pfizer or Moderna vaccine over 6 months ago and are not boosted OR 2. Completed the primary series of J&J over 2 months ago and are not boosted OR 3. Are unvaccinated THEN: 1. Stay home for 5 days. After that continue to wear a mask around others for 5 additional days. 2. If you can't quarantine you must wear a mask for 10 days. 3. Test on day 5 if possible. If you develop symptoms get a test and stay home. I had COVID-19 or I tested positive for COVID-19 and I have a weakened immune system If you have a weakened immune system (immunocompromised) due to a health condition or medication, you might need to stay home and isolate longer than 10 days. Talk to your healthcare provider for more information. Your doctor may work with an infectious disease expert at your local health department to determinewhen you can be around others. How to Manage Common Symptoms Associated with COVID for Adults Fever- Fever is a temperature over 100.4 F and can occur when the body is fighting an infection. Tohelp treat a fever: Drink plenty of fluids and stay well hydrated. Eat small amounts of easy to digest food. Rest. Your body needs rest to recover, but getting up and moving around the house frequently is a good idea. You should try to continue doing your normal daily activities (bathing, toileting, grooming, cooking), though you will probably feel tired, and need to rest often. Avoid any heavy activity or exercise, as this will increase your body temperature. Dress in light clothing and stay covered in a light sheet. Keep the room temperature cool. Take a slightly warm (not cold or cool) bath, or apply damp washcloths to the forehead and wrists. Cough- Cough is a common symptom associated with COVID and can be bothersome. To help treat a cough: Stay well hydrated. Try warm water or tea with lemon and/or honey to help soothe the cough. Use a humidifier to add moisture to the air. Try a product with menthol, like a cough drop or a rub for your chest such as Vicks, which can helpreduce cough. Try cough drops. Avoid smoking and other strong odors or perfumes. Try breathing exercises to keep your lungs open and clear. Take a big deep breath through your noseand hold for 5 seconds before slowly releasing. Repeat frequently, while you are awake. Congestion- Runny nose or nasal congestion can occur with COVID. Treatment can help relieve symptoms: Try OTC nasal saline spray, or nasal saline rinse to relieve mucus congestion. Nasal strips can help keep nasal passages open, to increase airflow. Elevating your head with an extra pillow in bed can help reduce congestion. Using a humidifier can increase moisture in the air, and make breathing easier. Sore Throat- Another common symptom with COVID, can be managed at home by: Stay well hydrated. Gargle with salt water - mix teaspoon salt with 1 cup of warm water and gargle. This helps to loosen mucus in the back of the throat and may reduce discomfort. Try ice chips, popsicles or lozenges to soothe the throat. Nausea/Vomiting/Diarrhea- These are common symptoms, and staying hydrated is most important. If you are nauseous or vomiting, start with small sips of water every 10-15 minutes and increase astolerated. You can try sucking an ice cube too. If tolerating, you can try pedialyte or Gatorade, or flat sprite or herson-alfredo. Start slowly and increase as you are able to. Instead of meals, try smaller, more frequent snacks. Try eating bland foods like crackers, toast, rice, and applesauce. Avoid spicy, greasy or fried foods and dairy containing foods. Even if you aren't feeling hungry due to lack of smell or taste, it is important to try to take in some food when you are able. After drinking and eating, rest in an upright position for up to two hours as needed to help decrease nauseous feelings. Try closing your eyes, avoid moving and watching TV. Avoid strong odors that can make you feel more nauseated. When to seek emergency medical attention Look for emergency warning signs for COVID-19. If having any of these symptoms, seek emergency medical care immediately: Trouble breathing Persistent pain or pressure in the chest New confusion Inability to wake or stay awake Bluish lips or face *This list is not all possible symptoms. Please call your medical provider for any other symptoms that are severe or concerning to you. Fact Sheet for Patients And Caregivers Emergency Use Authorization (EUA) Of Molnupiravir For Coronavirus Disease 2019 (COVID-19) What is the most important information I should know about molnupiravir? Molnupiravir may cause serious side effects, including: Molnupiravir may cause harm to your unborn baby. It is not known if molnupiravir will harm your baby if you take molnupiravir during . Molnupiravir is not recommended for use in . Molnupiravir has not been studied in . Molnupiravir was studied in animals only. When molnupiravir was given to animals, molnupiravir caused harm to their unborn babies. You and your healthcare provider may decide that you should take molnupiravir during if there are no other COVID-19 treatment options authorized by the FDA that are accessible or clinicallyappropriate for you. If you and your healthcare provider decide that you should take molnupiravir during , you and your healthcare provider should discuss the known and potential benefits and the potential risksof taking molnupiravir during . For individuals who are able to become : You should use a reliable method of control (contraception) consistently and correctly duringtreatment with molnupiravir and for 4 days after the last dose of molnupiravir. Talk to your healthcare provider about reliable control methods. Before starting treatment with molnupiravir your healthcare provider may do a test to seeif you are before starting treatment with molnupiravir. Tell your healthcare provider right away if you become or think you may be duringtreatment with molnupiravir. Surveillance Program: There is a surveillance program for individuals who take molnupiravir during . The purpose of this program is to collect information about the health of you and your baby. Talk to your healthcare provider about how to take part in this program. If you take molnupiravir during and you agree to participate in the surveillance program and allow your healthcare provider to share your information with [employer],then your healthcare provider will report your use of molnupiravir during to [employer] Juan. by calling or Pregnancyreporting.[employer]. For individuals who are sexually active with partners who are able to become : It is not known if molnupiravir can affect sperm. While the risk is regarded as low, animal studies to fully assess the potential for molnupiravir to affect the babies of males treated with molnupiravir have not been completed. A reliable method of control (contraception) should be used consistently and correctly during treatment with molnupiravir and for at least 3 months after thelast dose. The risk to sperm beyond 3 months is not known. Studies to understand the risk to sperm beyond 3 months are ongoing. Talk to your healthcare provider about reliable control methods. Talk to your healthcare provider if you have questions or concerns about how molnupiravir may affectsperm. You are being given this fact sheet because your healthcare provider believes it is necessary to provide you with molnupiravir for the treatment of adults with chzm-dq-mdojlfyz coronavirus disease 2019 (COVID-19) with positive results of direct SARS-CoV-2 viral testing, and who are at high risk forprogressing to severe COVID-19 including hospitalization or , and for whom other COVID-19 treatment options authorized by the FDA are not accessible or clinically appropriate. The [place]. Food and Drug Administration (FDA) has issued an Emergency Use Authorization (EUA) to makemolnupiravir available during the COVID-19 pandemic (for more details about an EUA please see What is an Emergency Use Authorization? at the end of this document). Molnupiravir is not an FDA-approved medicine in the [place]. Read this Fact Sheet for information about molnupiravir. Talk to your healthcare provider about your options if you have any questions. It is your choice to take molnupiravir. What is COVID-19? COVID-19 is caused by a virus called a coronavirus. You can get COVID-19 through close contact withanother person who has the virus. COVID-19 illnesses have ranged from very adzk-hb-egmofu, including illness resulting in . While information so far suggests that most COVID-19 illness is mild, serious illness can happen and maycause some of your other medical conditions to become worse. Older people and people of all ages with severe, long lasting (chronic) medical conditions like heart disease, lung disease and diabetes, for example seem to be at higher risk of being hospitalized for COVID-19. What is molnupiravir? Molnupiravir is an investigational medicine used to treat tera-do-dkctupiv COVID-19 in adults: with positive results of direct SARS-CoV-2 viral testing, and who are at high risk for progressing to severe COVID-19 including hospitalization or , and for whom other COVID-19 treatment optionsauthorized by the FDA are not accessible or clinically appropriate. The FDA has authorized the emergency use of molnupiravir for the treatment of mild-tomoderate COVID-19 in adults under an EUA. For more information on EUA, see the What is an Emergency Use Authorization (EUA)? section at the end of this Fact Sheet. Molnupiravir is not authorized: for use in people less than 18 years of age. for prevention of COVID-19. for people needing hospitalization for COVID-19. for use for longer than 5 consecutive days. What should I tell my healthcare provider before I take molnupiravir? Tell your healthcare provider if you: Have any allergies Are or plan to breastfeed Have any serious illnesses Are taking any medicines (prescription, itsn-kcw-rxdikfl, vitamins, or herbal products). How do I take molnupiravir? Take molnupiravir exactly as your healthcare provider tells you to take it. Take 4 capsules of molnupiravir every 12 hours (for example, at 8 am and at 8 pm) Take molnupiravir for 5 days. It is important that you complete the full 5 days of treatment with molnupiravir. Do not stop taking molnupiravir before you complete the full 5 days of treatment, even if you feel better. Take molnupiravir with or without food. You should stay in isolation for as long as your healthcare provider tells you to. Talk to your healthcare provider if you are not sure about how to properly isolate while you have COVID-19. Swallow molnupiravir capsules whole. Do not open, break, or crush the capsules. If you cannot swallow capsules whole, tell your healthcare provider. What to do if you miss a dose: If it has been less than 10 hours since the missed dose, take it as soon as you remember If it has been more than 10 hours since the missed dose, skip the missed dose and take your dose atthe next scheduled time. Do not double the dose of molnupiravir to make up for a missed dose. What are the important possible side effects of molnupiravir? Possible side effects of molnupiravir are: See, What is the most important information I should know about molnupiravir? diarrhea nausea dizziness These are not all the possible side effects of molnupiravir. Not many people have taken molnupiravir. Serious and unexpected side effects may happen. This medicine is still being studied,so it is possible that all of the risks are not known at this time. What other treatment choices are there? Like molnupiravir, FDA may allow for the emergency use of other medicines to treat people with COVID-19. Go to https://www.fda.gov/dzxtudzwr-bntriyssonhh-fyu-response/lrk-nrwvlpyrqnzhcab-tkg- policy-framework/azqwtnwvm-mte-wmvflsxoiwdzh for more information. It is your choice to be treated or not to be treated with molnupiravir. Should you decide not to take it, it will not change your standard medical care. What if I am ? is not recommended during treatment with molnupiravir and for 4 days after the last dose of molnupiravir. If you are or plan to breastfeed, talk to your healthcare provider about your options and specific situation before taking molnupiravir. How do I report side effects with molnupiravir? Contact your healthcare provider if you have any side effects that bother you or do not go away. Report side effects to FDA MedWatch at www.fda.gov/medwatch or call 3-092-PUA-9982 ( ). How should I store molnupiravir? Store molnupiravir capsules at room temperature between 68 F to 77 F (20 C to 25 C). Keep molnupiravir and all medicines out of the reach of children and pets. How can I learn more about COVID-19? Ask your healthcare provider. Visit www.cdc.gov/COVID19 Contact your local or state public health department. Call [employer] at (toll free in the [place] Visit www.adaffix What Is an Emergency Use Authorization (EUA)? The [place] FDA has made molnupiravir available under an emergency access mechanism called an Emergency Use Authorization (EUA) The EUA is supported by a Independent Consultant of Health and Human Service (HHS) declaration that circumstances exist to justify emergency use of drugs and biological products during the COVID-19 pandemic. Molnupiravir for the treatment of vucg-lj-zwubvudh COVID-19 in adults with positive results of direct SARS-CoV-2 viral testing, who are at high risk for progression to severe COVID-19, including hospitalization or , and for whom alternative COVID-19 treatment options authorized by FDA are not accessible or clinically appropriate, has not undergone the same type of review as an FDA- approved product. In issuing an EUA under the COVID-19 public health emergency, the FDA has determined, among other things, that based on the total amount of scientific evidence available including data from adequate and well-controlled clinical trials, if available, it is reasonable to believe that the product may be effective for diagnosing, treating, or preventing COVID-19, or a serious or life-threatening disease or condition caused by COVID19; that the known and potential benefits of the product, when used to diagnose, treat, or prevent such disease or condition, outweigh the known and potential risks of such product; and that there are no adequate, approved, and available alternatives. All of these criteria must be met to allow for the product to be used in the treatment of patients during the COVID-19 pandemic. The EUA for molnupiravir is in effect for the duration of the COVID-19declaration justifying emergency use of molnupiravir, unless terminated or revoked (after which molnupiravir may no longer be used under the EUA). For patent information: www.[employer]/research/patent Copyright 2020 [employer] [place], [facility] and its affiliates. All rights reserved. [id number] Issued: 06/24/2021 documented in this encounterLouis Stokes [facility]12-21-2022 History of Present illness Narrative* Liliam Alaniz MD - 06/22/2022 1:11 PM EST This note was created using NoteWriter. Subjective Winston Ohara is a 72 year old female. HISTORY Winston Ohara is a 72 year old lady here for yearly exam and follow up appointment. Does have some increased anxiety symptoms this time of the year. Really doing well overall. Ambien still helps for sleep. No adverse effects. Clinically euthyroid. Sotalol causes diarrhea within an hour taking. Imodium works. Was waiting to see how bad would be. 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 Thapa Peptic ulcer, unspecified site, unspecified as acute or chronic, without mention of hemorrhage, perforation, or obstruction Personal history of colonic polyps Thyroid cyst 09/24/2014 Current Outpatient Medications Medication Sig sertraline (ZOLOFT) 25 mg tablet Take 1 tablet by mouth once daily. (Patient taking differently: Take 25 mg by mouth once daily. 1/2 tablet PO daily) zolpidem (AMBIEN) 5 mg tablet Take 1 tablet by mouth at bedtime as needed for sedation for up to 180 days. lisinopril (ZESTRIL, PRINIVIL) 10 mg tablet Take 1 tablet by mouth once daily. XARELTO 20 mg tablet Take 1 tablet by mouth once daily. (cardiology filling) sotalol (BETAPACE) 80 mg tablet Take 80 mg by mouth twice daily. Cholecalciferol, Vitamin D3, 25 mcg (1,000 unit) cap Take 2 capsules by mouth once daily. fluticasone (FLONASE) 50 mcg/actuation nasal spray Use 2 Sprays in each nostril once daily. (Patient taking differently: Use 2 Sprays in each nostril as needed.) acetaminophen (TYLENOL) 500 mg tablet EVERY 6 HOURS NEEDED bismuth subsalicylate(PEPTO-BISMOL 262 MG TAB) Takes 2 pills daily as needed for IBS flare up No current facility-administered medications for this visit. ALLERGIES Allergen Reactions Flagyl [Metronidazo* GI Upset Flecainide Other: See Comments Caused irregular EKG SOB FAMILY HISTORY Problem Relation Age of Onset Prostate Cancer Father Hypertension Father Hypertension Mother other (IBS) Mother Hypertension Sister Breast Cancer Sister Thyroid Other Niece (sister's daughter) Social History Tobacco Use Smoking status: Former Packs/day: 1.00 Years: 15.00 Pack years: 15.00 Types: Cigarettes Quit date: 07/03/1986 Years since quittin.9 Smokeless tobacco: Never Tobacco comments: Quit 1986 Vaping Use Vaping Use: Never used Substance Use Topics Alcohol use: No Drug use: No Review of Systems Objective BP 136/84 Pulse (!) 59 Ht 162.6 cm (5' 4) Wt 70.3 kg (155 lb) LMP 08/31/2009 SpO2 100% BMI 26.61 kg/m BP 140/72 on recheck Last 5 Encounter Wt Readings: Date: Wt: 06/22/2022 70.3 kg (155 lb) 02/22/2022 69.4 kg (153 lb) 02/07/2022 68.5 kg (151 lb) 12/22/2021 67.6 kg (149 lb) 11/02/2021 68.6 kg (151 lb 3.8 oz) No waist measurement recorded Estimated body mass index is 26.61 kg/m as calculated from the following: Height as of this encounter: 162.6 cm (5' 4). Weight as of this encounter: 70.3 kg (155 lb). Last 5 Encounter BP Readings: Date: BP: 06/22/2022 136/84 02/22/2022 136/84 02/07/2022 124/70 12/22/2021 124/60 11/02/2021 128/59 Physical Exam Vitals reviewed. Constitutional: Appearance: Normal appearance. She is well-developed. HENT: Head: Normocephalic and atraumatic. Right Ear: External ear normal. Left Ear: External ear normal. Nose: Nose normal. Eyes: Conjunctiva/sclera: Conjunctivae normal. Neck: Thyroid: No thyromegaly. Vascular: No carotid bruit. Cardiovascular: Rate and Rhythm: Normal rate and regular rhythm. Pulses: Normal pulses. Heart sounds: Normal heart sounds. No murmur heard. No friction rub. No gallop. Pulmonary: Effort: Pulmonary effort is normal. Breath sounds: Normal breath sounds. Abdominal: General: Bowel sounds are normal. There is no distension. Palpations: Abdomen is soft. There is no mass. Tenderness: There is no abdominal tenderness. Musculoskeletal: General: No deformity. Normal range of motion. Lymphadenopathy: Cervical: No cervical adenopathy. Skin: General: Skin is warm and dry. Coloration: Skin is not jaundiced or pale. Findings: No rash. Neurological: General: No focal deficit present. Mental Status: She is alert and oriented to person, place, and time. Cranial Nerves: No cranial nerve deficit. Sensory: No sensory deficit. Motor: No abnormal muscle tone. Coordination: Coordination normal. Deep Tendon Reflexes: Reflexes normal. Psychiatric: Attention and Perception: Attention and perception normal. Mood and Affect: Mood and affect normal. Speech: Speech normal. Behavior: Behavior normal. Thought Content: Thought content normal. Cognition and Memory: Cognition and memory normal. Judgment: Judgment normal. Component Latest Ref Rng & Units 08/27/2014 02/12/2016 03/23/2017 04/03/2018 04/12/2019 06/01/2021 12/21/2021 02/02/2022 02/22/2022 06/10/2022 Protein, Total 6.3 - 8.0 g/dL 6.6 7.0 7.0 Albumin 3.9 - 4.9 g/dL 4.2 4.3 4.2 Calcium 8.5 - 10.2 mg/dL 9.7 9.9 9.6 Bilirubin, Total 0.2 - 1.3 mg/dL 0.5 0.5 0.6 Alkaline Phosphatase 34 - 123 U/L 110 133 (H) 118 AST 13 - 35 U/L 22 31 26 Glucose 74 - 99 mg/dL 91 90 94 BUN 7 - 21 mg/dL 18 12 16 Creatinine 0.58 - 0.96 mg/dL 0.82 0.80 0.88 Sodium 136 - 144 mmol/L 139 139 141 Potassium 3.7 - 5.1 mmol/L 4.1 5.0 4.5 Chloride 97 - 105 mmol/L 104 104 105 CO2 22 - 30 mmol/L 26 24 26 Anion Gap 9 - 18 mmol/L 9 11 10 ALT 7 - 38 U/L 9 19 13 eGFR- >60 eGFR-All Other Races . >60 eGFR >=60 mL/min/1.73m 80 71 WBC 3.70 - 11.00 k/uL 5.68 5.39 RBC 3.90 - 5.20 m/uL 4.45 4.42 Hemoglobin 11.5 - 15.5 g/dL 13.7 13.6 Hematocrit 36.0 - 46.0 % 42.3 42.1 MCV 80.0 - 100.0 fL 95.1 95.2 MCH 26.0 - 34.0 pg 30.8 30.8 MCHC 30.5 - 36.0 g/dL 32.4 32.3 RDW-CV 11.5 - 15.0 % 12.9 12.8 Platelet Count 150 - 400 k/uL 204 200 MPV 9.0 - 12.7 fL 10.4 10.5 Absolute nRBC <0.01 k/uL <0.01 <0.01 Cholesterol, Total <200 mg/dL 238 (H) 227 (H) 220 (H) Triglyceride <150 mg/dL 129 158 (H) 118 HDL Cholesterol >39 mg/dL 50 53 57 LDL Cholesterol <100 mg/dL 162 (H) 142 (H) 139 (H) Non HDL Cholesterol <130 mg/dL 188 (H) 174 (H) 163 (H) Fasting Time hrs 12 12 12 VLDL Cholesterol <30 mg/dL 26 32 (H) 24 TC:HDL Ratio <5.10 4.76 4.28 3.86 LDL:HDL Ratio <2.54 3.24 (H) 2.68 (H) 2.44 T4 5.0 - 11.0 ug/dL 8.0 T4 Uptake 0.70 - 1.20 0.98 FTI 6.0 - 11.0 ug/dL 8.2 Hemoglobin A1C 4.3 - 5.6 % 5.3 Estimated Average Glucose mg/dL 105 TSH 0.270 - 4.200 mIU/L 2.480 4.380 4.340 4.780 2.250 2.870 4.260 (H) T3 94 - 170 ng/dL 91 (L) Free T4 0.9 - 1.7 ng/dL 1.3 1.3 1.5 1.3 1.4 Vitamin D 25 Hydroxy 31.0 - 80.0 ng/mL 31.1 39.8 Microsomal Antibody <5.6 IU/mL 2.6 Free T3 2.3 - 4.1 pg/mL 3.1 The 10-year ASCVD risk score (Dinorah DK, et al., 2019) is: 14.4% Values used to calculate the score: Age: 72 years Sex: Female Is Non- : No Diabetic: No Tobacco smoker: No Systolic Blood Pressure: 136 mmHg Is BP treated: Yes HDL Cholesterol: 57 mg/dL Total Cholesterol: 220 mg/dL Assessment and Plan Encounter Diagnosis ICD-10-CM 1. Psychophysiological insomnia F51.04 Needs Ambien to sleep. Effective so able to function. No adverse effects. 2. Essential hypertension I10 TSH BLD T4 FREE/FREE THYROX T3 FREE BLD lisinopril (ZESTRIL, PRINIVIL) 20 mg tablet 3. Elevated TSH R79.89 TSH BLD T4 FREE/FREE THYROX T3 FREE BLD 4. Paroxysmal atrial fibrillation (HCC) I48.0 TSH BLD T4 FREE/FREE THYROX T3 FREE BLD 5. Vitamin D deficiency E55.9 6. Generalized anxiety disorder F41.1 TSH BLD T4 FREE/FREE THYROX T3 FREE BLD 7. Encounter for long-term current use of medication Z79.899 TSH BLD T4 FREE/FREE THYROX T3 FREE BLD 8. Encounter for screening mammogram for breast cancer Z12.31 [facility] SCREEN[facility] Patient here for yearly exam and follow up. Above issues addressed with patient. Patient involved in shared decision making for management of medical issues. History and medications reviewed. Epic updated as needed Refills taken care of and meds adjusted as indicated after reviewed history, exam and labs. Health Maintenance reviewed. Updated record and/or ordered tests as recorded. Encouraged on efforts at healthy diet and regular exercise and adequate sleep. Stable with control of insomnia. At this time benefits outweigh risks. Continue to monitor for adverse effects and indications for decreasing dose or tapering off. No signs of diversion or abuse of medication(s); no adverse effects. Continue present management. Liliam Alaniz MD documented in this encounterLouis [facility]11-17-2022 Miscellaneous Notes* Telephone Encounter - Liliam Alaniz MD - 05/19/2022 11:24 AM EST The following approved medication requests have been transmitted electronically. Requested Prescriptions Signed Prescriptions Disp Refills sertraline (ZOLOFT) 25 mg tablet 90 tablet 1 Sig: Take 1 tablet by mouth once daily. Authorizing Provider: LILIAM ALANIZ zolpidem (AMBIEN) 5 mg tablet 30 tablet 5 Sig: Take 1 tablet by mouth at bedtime as needed for sedation for up to 180 days. Authorizing Provider: LILIAM ALANIZ MD * Telephone Encounter - Sylvia Keith LPN - 05/19/2022 8:29 AM EST Patient has been identified by name and date of : Yes Patient phones for refill(s): Requested Prescriptions Pending Prescriptions Disp Refills sertraline (ZOLOFT) 25 mg tablet 90 tablet 1 Sig: Take 1 tablet by mouth once daily. zolpidem (AMBIEN) 5 mg tablet 30 tablet 5 Sig: Take 1 tablet by mouth at bedtime as needed for sedation for up to 180 days. Date of last office visit in primary care: 02/22/22 next apt 06/22/22 Last 2 Encounter Wt Readings: Date: Wt: 02/22/2022 69.4 kg (153 lb) 02/07/2022 68.5 kg (151 lb) Previous labs/tests for medication: Not applicable Thank you. Sylvia Keith LPN documented in this encounterLouis Stokes [facility]09-13-2022 History of Present illness Narrative* RT Ayah(R) - 03/15/2022 11:00 AM EDT Radiology Service Progress Note PATIENT NAME: Winston Ohara DATE OF SERVICE: March 15, 2022 TIME: 10:58 AM PATIENT IDENTITY VERIFICATION COMPLETED USING TWO (2) IDENTIFIERS: Name and Date of confirmedby patient verbally. FALL SCREENING: Has the patient had 2 falls in the last year or 1 fall with injury or currently using an Ambulatory Assistive Device (Walker, Cane, Wheelchair, Crutches, etc.)? No PATIENT GENDER DATA: Female. status: : No status: NO. PATIENT RELEVANT IMPLANT DATA REVIEWED: Not Applicable RADIOLOGY DEPARTMENT: Mammography PERIPHERAL IV DATA: Not applicable SIGNED BY: RT Ayah(R) March 15, 2022 10:58 AM documented in this encounterLouis Stokes [facility]08-23-2022 History of Present illness Narrative* Liliam Alaniz MD - 02/22/2022 11:33 AM EDT This note was created using [employer]ave Club[employer]. Subjective Winston Ohara is a 71 year old female. Patient presents with: Follow Up: Thyroid SUBJECTIVE:lady Winston Ohara is a 71 year old year old lady here today for follow up appointment for review of medical conditions. Back in December had hot feeling and shortness of breath. [place] unusually hot. [place] flushing sensation over upper chest to shoulders and some sweating after. Past two months has been really sweaty like bad hot flashes all day off and on. Recently not as severe as back in December. No SOB. More episodes of feeling anxious. Not severe but there. Can get palpitations but not racing. Knows when is in a fib. REeiewed that Dr. Thapa recommended against getting the COVID vaccine since had issue soon after the injection. 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 Thapa Peptic ulcer, unspecified site, unspecified as acute or chronic, without mention of hemorrhage, perforation, or obstruction Personal history of colonic polyps Thyroid cyst 09/24/2014 Current Outpatient Medications Medication Sig lisinopril (ZESTRIL, PRINIVIL) 10 mg tablet Take 1 tablet by mouth once daily. XARELTO 20 mg tablet Take 1 tablet by mouth once daily. (cardiology filling) zolpidem (AMBIEN) 5 mg tablet Take 1 tablet by mouth at bedtime as needed for sedation for up to 180 days. sotalol (BETAPACE) 80 mg tablet Take 80 mg by mouth twice daily. sertraline (ZOLOFT) 25 mg tablet Take 1 tablet by mouth once daily. (Patient taking differently: Take 12.5 mg by mouth once daily.) Cholecalciferol, Vitamin D3, 25 mcg (1,000 unit) cap Take 2 capsules by mouth once daily. fluticasone (FLONASE) 50 mcg/actuation nasal spray Use 2 Sprays in each nostril once daily. (Patient taking differently: Use 2 Sprays in each nostril as needed.) acetaminophen (TYLENOL) 500 mg tablet EVERY 6 HOURS NEEDED bismuth subsalicylate(PEPTO-BISMOL 262 MG TAB) Takes 2 pills daily as needed for IBS flare up No current facility-administered medications for this visit. Review of Systems Objective BP 136/84 Pulse (!) 54 Wt 69.4 kg (153 lb) LMP 08/31/2009 SpO2 98% BMI 26.26 kg/m Physical Exam Component Latest Ref Rng & Units 06/01/2021 12/21/2021 02/02/2022 Protein, Total 6.3 - 8.0 g/dL 6.6 7.0 Albumin 3.9 - 4.9 g/dL 4.2 4.3 Calcium 8.5 - 10.2 mg/dL 9.7 9.9 Bilirubin, Total 0.2 - 1.3 mg/dL 0.5 0.5 Alkaline Phosphatase 34 - 123 U/L 110 133 (H) AST 13 - 35 U/L 22 31 Glucose 74 - 99 mg/dL 91 90 BUN 7 - 21 mg/dL 18 12 Creatinine 0.58 - 0.96 mg/dL 0.82 0.80 Sodium 136 - 144 mmol/L 139 139 Potassium 3.7 - 5.1 mmol/L 4.1 5.0 Chloride 97 - 105 mmol/L 104 104 CO2 22 - 30 mmol/L 26 24 Anion Gap 9 - 18 mmol/L 9 11 ALT 7 - 38 U/L 9 19 eGFR- >60 eGFR-All Other Races . >60 eGFR >=60 mL/min/1.73m 80 WBC 3.70 - 11.00 k/uL 5.68 RBC 3.90 - 5.20 m/uL 4.45 Hemoglobin 11.5 - 15.5 g/dL 13.7 Hematocrit 36.0 - 46.0 % 42.3 MCV 80.0 - 100.0 fL 95.1 MCH 26.0 - 34.0 pg 30.8 MCHC 30.5 - 36.0 g/dL 32.4 RDW-CV 11.5 - 15.0 % 12.9 Platelet Count 150 - 400 k/uL 204 MPV 9.0 - 12.7 fL 10.4 Absolute nRBC <0.01 k/uL <0.01 Cholesterol, Total <200 mg/dL 238 (H) 227 (H) Triglyceride <150 mg/dL 129 158 (H) HDL Cholesterol >39 mg/dL 50 53 LDL Cholesterol <100 mg/dL 162 (H) 142 (H) Non HDL Cholesterol <130 mg/dL 188 (H) 174 (H) Fasting Time hrs 12 12 VLDL Cholesterol <30 mg/dL 26 32 (H) TC:HDL Ratio <5.10 4.76 4.28 LDL:HDL Ratio <2.54 3.24 (H) 2.68 (H) Vitamin D 25 Hydroxy 31.0 - 80.0 ng/mL 31.1 TSH 0.270 - 4.200 mIU/L 2.870 Free T4 0.9 - 1.7 ng/dL 1.3 Assessment and Plan ASSESSMENT/PLAN: 1. Elevated TSH - ICD9: 794.5, ICD10: R79.89 (primary diagnosis) Normal TSH this check; monitor for symptoms of thyroid dysfunction and follow up on labs. Further evaluation and treatment as indicated. - T4 FREE/FREE THYROX - T3 FREE BLD 2. Paroxysmal atrial fibrillation (HCC) - ICD9: 427.31, ICD10: I48.0 Monitor for increased symptoms. Continue present management. Further evaluation and treatment as indicated. - TSH BLD - T4 FREE/FREE THYROX - T3 FREE BLD 3. Hot flashes - ICD9: 782.62, ICD10: R23.2 Improved lately with no more associated SOB. Monitor for change in symptoms, especially for progressive SOB, LEMUS or development of CP with exertion. Further evaluation and treatment as indicated. 4. Vitamin D deficiency - ICD9: 268.9, ICD10: E55.9 Level just in normal range. Monitor. Would supplement to keep level up. - VITAMIN D 25 HYDROXY 5. Essential hypertension - ICD9: 401.9, ICD10: I10 - fair control - Continue current medication(s) - Recommended regular aerobic exercise. - Goal of BP <130/80 - LIPID PANEL BASIC - CBC - COMP METABOLIC PANEL 6. Encounter for long-term current use of medication - ICD9: V58.69, ICD10: Z79.899 - CBC - HGB A1C - COMP METABOLIC PANEL Liliam Alaniz MD documented in this encounterLouis Stokes [facility]08-08-2022 Instructions* Patient Instructions* Katey Stanton APRN.CNS - 02/07/2022 8:42 AM EDT Let us know if any problems be fore your next visit. Check thyroid labs in June before your visit documented in this encounterLouis Stokes [facility]08-08-2022 History of Present illness Narrative* Katey Stanton APRN.CNS - 02/07/2022 8:20 AM EDT SUBJECTIVE: There are no preventive care reminders to display for this patient. LEATHA Ohara is a 71 year old female. PMH significant for ACTIVE PROBLEM LIST Family history of malignant neoplasm of breast Generalized Anxiety Disorder History of Colonic Polyps Pfo (Patent Foramen Ovale) Kidney Donor Thyroid Cyst Ex-Smoker Palpitations History of Kidney Donation Paroxysmal Atrial Fibrillation (Hcc) Rash and Nonspecific Skin Eruption Primary Osteoarthritis of Both Knees Essential Hypertension Vitamin D Deficiency Presents today for ER follow up visit. OSH records reviewed. She was seen at [facility] emergency department on January 27, 2022 for shortness of breath, intermittent hot flashes and flushing. She went to the emergency department to check for cardiac source of symptoms. Her heart rhythm was noted to be normal sinus rhythm. Impression was low concern for pulmonary embolus. Chest x-ray with no concerning findings. Labs show elevated TSH otherwise in acceptable range. Subsequently seen at [facility] 01/31/2022. Noted to have atrial fibrillation with rapid ventricular response following knee replacement surgery. She has had a stress test which did not show ischemia and echocardiogram which showed preserved EF, enlarged LA, RA. She was started on sotalol, noted diarrhea with this. Seen in ER, noted to have elevated TSH. Today without report of recurrence. Notes no changes made to her treatment or additional testing recommended by cardiology. Notes she is under significant amount of social stress, wonders if anxiety may be contributing. Notes some periodic flushing. TSH Date Value 02/02/2022 2.870 mIU/L 04/12/2019 2.250 uU/mL 04/03/2018 4.780 uU/mL ) Review of Systems Constitutional: Negative. Psychiatric/Behavioral: The patient is nervous/anxious. Objective BP 124/70 Pulse (!) 54 Resp 14 Wt 68.5 kg (151 lb) LMP 08/31/2009 SpO2 97% BMI 25.92 kg/m Physical Exam Vitals and nursing note reviewed. Constitutional: Appearance: Normal appearance. HENT: Head: Normocephalic and atraumatic. Eyes: Conjunctiva/sclera: Conjunctivae normal. Neck: Thyroid: No thyromegaly. Vascular: Normal carotid pulses. No JVD. Cardiovascular: Rate and Rhythm: Normal rate and regular rhythm. Pulses: Carotid pulses are 2+ on the right side and 2+ on the left side. Radial pulses are 2+ on the right side and 2+ on the left side. Heart sounds: Normal heart sounds. Pulmonary: Effort: Pulmonary effort is normal. Breath sounds: Normal breath sounds. Musculoskeletal: Right lower leg: No edema. Left lower leg: No edema. Skin: General: Skin is warm and dry. Neurological: Mental Status: She is alert. ALLERGIES Allergen Reactions Flagyl [Metronidazo* GI Upset Flecainide Other: See Comments Caused irregular EKG SOB Medications lisinopril (ZESTRIL, PRINIVIL) 10 mg tablet Take 1 tablet by mouth once daily. XARELTO 20 mg tablet Take 1 tablet by mouth once daily. (cardiology filling) zolpidem (AMBIEN) 5 mg tablet Take 1 tablet by mouth at bedtime as needed for sedation for up to 180 days. sotalol (BETAPACE) 80 mg tablet Take 80 mg by mouth twice daily. sertraline (ZOLOFT) 25 mg tablet Take 1 tablet by mouth once daily. (Patient taking differently: Take 12.5 mg by mouth once daily. ) Cholecalciferol, Vitamin D3, 25 mcg (1,000 unit) cap Take 2 capsules by mouth once daily. atenolol (TENORMIN) 50 mg tablet Take 1 tablet by mouth once daily. fluticasone (FLONASE) 50 mcg/actuation nasal spray Use 2 Sprays in each nostril once daily. (Patient taking differently: Use 2 Sprays in each nostril as needed. ) acetaminophen (TYLENOL) 500 mg tablet EVERY 6 HOURS NEEDED bismuth subsalicylate(PEPTO-BISMOL 262 MG TAB) Takes 2 pills daily as needed for IBS flare up PAST MEDICAL HISTORY Diagnosis Date Arthritis Benign neoplasm of colon 2005 Excised via colonoscopy Calculus of kidney Depressive disorder, not elsewhere classified Diarrhea Essential hypertension 01/17/2021 External hemorrhoids without mention of complication Ganglion Cyst, arch of left foot 01/20/2010 Generalized anxiety disorder Anxiety, Generalized History of kidney donation 02/12/2016 Insomnia, unspecified Internal hemorrhoids without mention of complication Irritable bowel syndrome Malignant neoplasm of breast (female), unspecified site family history breast cancer Nasal bone fracture 2013 Other acne 05/03/2005 Palpitations 10/05/2006 controlled with atenolol; does not have HTN Paroxysmal atrial fibrillation (HCC) 10/2017 Dr. Thapa Peptic ulcer, unspecified site, unspecified as acute or chronic, without mention of hemorrhage, perforation, or obstruction Personal history of colonic polyps Thyroid cyst 09/24/2014 Social History Tobacco Use Smoking status: Former Packs/day: 1.00 Years: 15.00 Pack years: 15.00 Types: Cigarettes Quit date: 07/03/1986 Years since quittin.6 Smokeless tobacco: Never Tobacco comments: Quit 1986 Vaping Use Vaping Use: Never used Substance Use Topics Alcohol use: No Drug use: No Component Latest Ref Rng & Units 02/02/2022 TSH 0.270 - 4.200 mIU/L 2.870 Free T4 0.9 - 1.7 ng/dL 1.3 ASSESSMENT/PLAN: 1. Paroxysmal atrial fibrillation (HCC) - ICD9: 427.31, ICD10: I48.0 (primary diagnosis) - THYROID PEROXIDASE ANTIBODY BLOOD 2. Palpitations - ICD9: 785.1, ICD10: R00.2 - TSH BLD - THYROID PEROXIDASE ANTIBODY BLOOD 3. Elevated TSH - ICD9: 794.5, ICD10: R79.89 - THYROID PEROXIDASE ANTIBODY BLOOD Recommend continue current treatments unchanged for now. Let us know if any recurrence of flushing sensation, shortness of breath or palpitations. Echo and stress test completed, no recent heart monitor such as Zio patch has been completed. Notes severely enlarged LA on recent echocardiogram. Continue to monitor for heat intolerance, flushing sensation, palpitations and let us know if these occur. Check thyroid lab work before her next visit. Differential for symptoms to include thyroid abnormality, atrial fibrillation, anxiety. Katey Stanton APRN.CNS Medical Decision Making: Problems: Moderate: New problem with uncertain prognosis Data: Unique test(s) ordered: 2 Independent interpretation of test from other physician/QHCP Medical Decision Making Level: 4 - Moderate documented in this encounterLouis Stokes [facility]08-01-2022 Miscellaneous Notes* Telephone Encounter - Kelin Maradiaga RN - 01/31/2022 5:18 PM EDT Spoke with patient. Given message from provider's office. Patient verbalizes understanding. Kelin Maradiaga RN * Telephone Encounter - Bambi Knight RN - 01/31/2022 4:36 PM EDT Called and left a voicemail for the Patient to call back and ask for a nurse to receive the providers message. Bambi Knight RN * Telephone Encounter - Katey Stanton APRN.CNS - 01/31/2022 4:25 PM EDT Can complete additional thyroid labs, schedule US thyroid. Orders filed. * Telephone Encounter - Elda Gusman Ma - 01/31/2022 3:57 PM EDT Report printed from [employer] and at nurse desk for review * Telephone Encounter - Katey Stanton APRN.JONAH - 01/31/2022 3:41 PM EDT Obtain ER records please so can address the question posed * Telephone Encounter - Sylvia Keith LPN - 01/31/2022 3:11 PM EDT Pt called and states she was to [facility] ER on 01-26-22 with flushing in the chest and short of breath. Pt states she just saw her upsetter helper and he told her the lab work showed elevated thyroid at 6.39.Pt states she feel warm and tired also. Pt asking if there is something she should be doing regarding her thyroid. Pt scheduled for a ER follow up visit 02/07/22. Please advise pt. Sylvia Keith LPN documented in this encounterLouis Stokes [facility]05-09-2022 Miscellaneous Notes* Telephone Encounter - Jake Boyle MD - 11/08/2021 5:06 PM EDT Call patient results of polypectomy. It was a hyperplastic polyp. Her last 2 colonoscopies were hyperplastic polyps. She is noted on colonoscopy for 10 years as we discussed. I discussed the fact that since she will be 81 standard recommendations not from colonoscopy but my opinion is if you are [facility] and physiologically given at 72 colonoscopy for screening purposes is reasonable. documented in this encounterLouis Stokes Cleveland [facility] Center05-09-2022 Miscellaneous Notes* Telephone Encounter - Mariama Abernathy LPN - 11/08/2021 4:50 PM EDT This encounter was opened in error. @[email or web address]@ documented in this encounterLouis Stokes [facility]05-03-2022 Nurse Note* Aurea Gonzalez RN - 11/02/2021 9:47 AM EDT VITALS:Blood pressure 142/68 & pulse 79, from last office visit to compare for preanesthesia values before today. * Aurea Gonzalez RN - 11/02/2021 9:25 AM EDT Abdomen soft non-distended. Will continue to monitor. documented in this encounterLouis Stokes [facility] Center05-03-2022 History and physical note * Jake Boyle MD - 11/02/2021 8:52 AM EDT UPDATED PROCEDURAL SEDATION HISTORY AND PHYSICAL EXAMINATION SERVICE DATE: 11/02/2021 SERVICE TIME: 8:52 AM PHYSICAL EXAM MUST BE COMPLETED ON ADMISSION PROCEDURE: Procedure Indications: The History and Physical (completed in the past 30 days) has been reviewed and the patient has beenexamined. The contents accurately reflect the patient's condition with the following additions or revisions since the H&P was completed. ASA Class: ASA Class:: Patient with mild systemic disease Examination indicates no changes. AIRWAY: Airway Visualization of Uvula: Yes Mouth opening greater than 2 fingerbreadths: Yes Neck Full Range of Motion: Yes LUNGS: Lungs clear to auscultation CARDIAC: Regular rhythm,Regular rate Provisional Diagnosis/Treatment Plan: personal history of colon polyps SEDATION GOAL: Moderate This H&P can be found in the attached. SIGNATURE: Jake Boyle MD PATIENT NAME: Winston Ohara DATE: November 02, 2021 TIME: 8:52 AM * Jake Boyle MD - 11/02/2021 8:15 AM EDT Images from the original note were not included. HISTORY AND PHYSICAL Winston Ohara 1950 REFERRING PHYSICIAN: Liliam Alaniz MD CHIEF COMPLAINT: Consult (abnormal mammogram) HPI: The patient is a 71 year old female referred for endoscopy. Winston notes no history of colon complaints. The patient notes no history of upper GI complaints. Winston has undergone prior endoscopy. SHe underwent colonoscopy on September 22, 2016. She was found tohave a a polyp and 5 year follow up was recommended PAST MEDICAL HISTORY PAST MEDICAL HISTORY Diagnosis Date Benign neoplasm of colon 2005 Excised via colonoscopy Calculus of kidney Depressive disorder, not elsewhere classified Diarrhea Essential hypertension 01/17/2021 External hemorrhoids without mention of complication Ganglion Cyst, arch of left foot 01/20/2010 Generalized anxiety disorder Anxiety, Generalized History of kidney donation 02/12/2016 Insomnia, unspecified Internal hemorrhoids without mention of complication Irritable bowel syndrome Malignant neoplasm of breast (female), unspecified site family history breast cancer Nasal bone fracture 2013 Other acne 05/03/2005 Palpitations 10/05/2006 controlled with atenolol; does not have HTN Paroxysmal atrial fibrillation (HCC) 10/2017 Dr. Thapa Peptic ulcer, unspecified site, unspecified as acute or chronic, without mention of hemorrhage, perforation, or obstruction Personal history of colonic polyps Thyroid cyst 09/24/2014 PAST SURGICAL HISTORY PAST SURGICAL HISTORY Procedure Laterality Date APPENDECTOMY 12/2000 BIOPSY BREAST OPEN INCISIONAL Bx of breast, incisional COLONOSCOPY FLX DX W/COLLJ SPEC WHEN PFRMD 05/01/2006 Colonoscopy COLONOSCOPY FLX DX W/COLLJ SPEC WHEN PFRMD 09/22/2016 Colonoscopy COLONOSCOPY W/BIOPSY SINGLE/MULTIPLE 04/26/2010 ESWL 08/2009 FNA WITH IMAGING 09/24/2014 U/S FNA left thyroid cyst KNEE SURGERY HX Left 2020 PAST SURGICAL HISTORY OF 12/2000 right colectomy, right salpingoopherectomy PAST SURGICAL HISTORY OF 2012 right kidney donor CURRENT MEDICATIONS Current Outpatient Medications Medication Sig sotalol (BETAPACE) 80 mg tablet Take 80 mg by mouth twice daily. sertraline (ZOLOFT) 25 mg tablet Take 1 tablet by mouth once daily. (Patient taking differently: Take 12.5 mg by mouth once daily. ) zolpidem (AMBIEN) 5 mg tablet Take 1 tablet by mouth at bedtime as needed for sedation for up to 180 days. Cholecalciferol, Vitamin D3, 25 mcg (1,000 unit) cap Take 2 capsules by mouth once daily. lisinopril (ZESTRIL, PRINIVIL) 10 mg tablet Take 1 tablet by mouth once daily. XARELTO 20 mg tablet Take 1 tablet by mouth once daily. fluticasone (FLONASE) 50 mcg/actuation nasal spray Use 2 Sprays in each nostril once daily. (Patient taking differently: Use 2 Sprays in each nostril as needed. ) acetaminophen (TYLENOL) 500 mg tablet EVERY 6 HOURS NEEDED bismuth subsalicylate(PEPTO-BISMOL 262 MG TAB) Takes 2 pills daily as needed for IBS flare up polyethylene glycol 3350 (MIRALAX, GLYCOLAX) 17 gram/dose powder Use as directed for Miralax / Gatorade Bowel Prep Kit Gatorade Sports Drink Use as directed for Miralax / Gatorade Bowel Prep Kit Bisacodyl (DULCOLAX) 5 mg tab Use as directed for Miralax / Gatorade Bowel Prep Kit furosemide (LASIX) 40 mg tablet Take 1 tablet by mouth once daily as needed (For swelling). (Has not needed since cardioversion but has on hand) atenolol (TENORMIN) 50 mg tablet Take 1 tablet by mouth once daily. No current facility-administered medications for this visit. ALLERGIES: Flagyl [Metronidazole] and Flecainide PERSONAL HISTORY: SOCIAL HISTORY Social History Tobacco Use Smoking status: Former Smoker Packs/day: 1.00 Years: 15.00 Pack years: 15.00 Types: Cigarettes Quit date: 07/03/1986 Years since quittin.1 Smokeless tobacco: Never Used Tobacco comment: Quit 1986 Vaping Use Vaping Use: Never used Substance Use Topics Alcohol use: No Drug use: No FAMILY HISTORY: FAMILY HISTORY FAMILY HISTORY Problem Relation Age of Onset Prostate Cancer Father Hypertension Father Hypertension Mother other (IBS) Mother Hypertension Sister Breast Cancer Sister Thyroid Other Niece (sister's daughter) REVIEW OF SYMPTOMS: The review of systems data was entered by the nurse and reviewed by pa Nursing Notes: Mariama Abernathy LPN 08/19/2021 12:10 PM Signed REVIEW OF SYSTEMS: General: The patient denies fatigue, denies weight loss, denies weight gain, denies feeling hot, and denies feelings of cold. Eyes: The patient denies glaucoma, denies eye injury/surgery, wears glasses or contacts. Ear/Nose/Throat: The patient denies allergies, denies hayfever, denies ear infections, and denies bloody noses. Cardiovascular: The patient denies chest pain, denies heart disease, notes high blood pressure,denies cardiac stent, denies prior heart attack, notes irregular heart beat, denies high cholesterol, denies poor circulation, denies heart failure, other cardiac issues, denies claudication, denies cold feet, denies peripheral arterial stent. Respiratory: The patient denies tuberculosis, denies pneumonia, denies frequent cough, denies pulmonary embolism, denies shortness of breath, and denies coughing up blood. Gastrointestinal: The patient denies difficulty swallowing, denies acid reflux, denies ulcers, denies vomiting, denies jaundice/hepatitis, denies gallbladder problems, denies black or tarry stools, denies hemorrhoids, denies bleeding from rectum, notes diverticulitis, denies constipation, notes diarrhea, denies loss of stool control, and denies hernias. Kidney/Bladder: The patient notes kidney stones, denies urine infections, and denies bloody urine. Skin: The patient denies a history of skin cancer, denies bleeding/changing moles, and denies a history of skin rash. Neurologic: The patient denies a history of epilepsy/convulsions, denies headaches, denies head/spinal injuries, and denies stroke/TIA. Psychiatric: The patient notes psychiatric medications, notes depression, and denies voices, deniessubstance abuse. Endocrine: The patient denies thyroid disorders, denies diabetes, and denies hormonal problems. Hematologic: The patient denies a history of bruising, denies bleeding, and denies anemia, denies blood clots. Infections: The patient denies a history of measles and mumps, denies rheumatic fever, and denies sexually transmitted diseases. Musculoskeletal: The patient denies back pain/injury, denies back problems, denies sciatica, deniesknee/foot trouble, denies arthritis, or denies gout. When was patient's last Mammogram screening? 2021 Last Colonoscopy: 2016 Mariama Abernathy LPN PHYSICAL EXAMINATION: General: The patient is 71 year old female, well nourished, well hydrated in no acute distress. Thepatient is oriented to time, place, and person. VITALS: Blood pressure 142/68, pulse 79, temperature 36.7 C (98.1 F), height 162.6 cm (5' 4), weight 69.4 kg (153 lb), last menstrual period 08/31/2009, SpO2 99 %. Body mass index is 26.26 kg/m . HEENT: Normal cephalic, ataumatic, pupils are equally round, sclera are anicteric, mucous membranesare moist, oropharynx is clear. Neck has no masses, asymmetry or lymphadenopathy. Thyroid is unremarkable. Respiratory: Clear to auscultation and percussion. Normal respiratory excursion and pattern. Cardiac: Examination is regular rate and rhythm. Abdominal exam: Soft, nontender, with no palpable masses. No hepatosplenomegaly. No palpable hernias. Rectal exam: exam deferred Extremities: no clubbing, cyanosis or edema. No adenopathy. Other: LABORATORY VALUES: As Noted RADIOLOGIC STUDIES: As Noted Assessment IMPRESSION: personal history of colon polyps PLAN: I plan to perform lower endoscopy. We discussed the risks and benefits of the planned endoscopy. I have informed the patient that complications can occur including failure to complete the endoscopy and perforation. The patient had the opportunity to ask questions concerning the planned endoscopy. My staff has also explained the procedure to the patient in understandable terms and has given the patient printed material concerning the procedure. The patient freely consents to surgery. I plan to use Miralax bowel preperation for endoscopy Diagnoses: (Z86.010) Personal history of colonic polyps (primary encounter diagnosis) My findings have been communicated to Dr. Liliam Alaniz MD via shared medical record. This note will be forwarded to Dr. Liliam Alaniz MD. Return to Clinic: The patient is instructed to follow-up with me after the testing has been completed. Jake Boyle MD documented in this encounterLouis Stokes [facility]02-17-2022 Miscellaneous Notes* Telephone Encounter - Jaqui Mccray - 08/19/2021 1:54 PM EST 11/02/[address] Boyle with Miralax/dulcolax prep at [facility] Left side Stereotatic breast bx with Dr Penn 09-03-2021 arrival time 1230 documented in this encounterLouis Stokes [facility]04-01-2018 Evaluation note* Diagnosis Onset Date Resolution Status Essential (primary) hypertension chronic Paroxysmal atrial fibrillation October, chronic Mammographic microcalcification acute [facility] Work Phone: 1(641) 140-766404-01-2018 Evaluation note* Diagnosis Onset Date Resolution Status Sinus bradycardia acute Essential (primary) hypertension chronic Paroxysmal atrial fibrillation October, [facility] Work Phone: 1(868) 448-539104-01-2018 Evaluation note* Diagnosis Onset Date Resolution Status Admit Date Paroxysmal atrial flutter October, chronic January 10, 2025 9:23am Paroxysmal atrial flutter October, chronic January 13, 2025 10:24am Paroxysmal atrial fibrillation 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, 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 January 31, 2025 1:33pm Paroxysmal atrial flutter October, chronic January 31, 2025 1:33pm [facility] [employer] Work Phone: 1(389) 778-720910-25-2010 History of Past illness Narrative* Problem Noted Date Resolved Date External hemorrhoids without mention of complica tion 04/26/2010 08/08/2012 Ganglion Cyst, arch of left foot 01/20/2010 08/08/2012 Post-menopausal bleeding 09/30/2009 013 Rosacea 07/16/2008 08/08/2012 Palpitations 10/05/2006 08/08/2012 Diarrhea 05/01/2006 08/08/2012 Benign neoplasm of colon 05/01/2006 013 Other acne 05/03/2005 08/08/2012 Irritable bowel syndrome 013 Depressive disorder, not elsewhere classified 04/04/2017 Insomnia, unspecified 08/08/2012 documented as of this encounter (statuses as of 11/03/2021) [facility] of Past illness Narrative* Problem Noted Date Resolved Date External hemorrhoids without mention of complica tion 04/26/2010 08/08/2012 Ganglion Cyst, arch of left foot 01/20/2010 08/08/2012 Post-menopausal bleeding 09/30/2009 013 Rosacea 07/16/2008 08/08/2012 Palpitations 10/05/2006 08/08/2012 Diarrhea 05/01/2006 08/08/2012 Benign neoplasm of colon 05/01/2006 013 Other acne 05/03/2005 08/08/2012 Irritable bowel syndrome 013 Depressive disorder, not elsewhere classified 04/04/2017 Insomnia, unspecified 08/08/2012 documented as of this encounter (statuses as of 11/08/2021) [facility] of Past illness Narrative* Problem Noted Date Resolved Date External hemorrhoids without mention of complica tion 04/26/2010 08/08/2012 Ganglion Cyst, arch of left foot 01/20/2010 08/08/2012 Post-menopausal bleeding 09/30/2009 013 Rosacea 07/16/2008 08/08/2012 Palpitations 10/05/2006 08/08/2012 Diarrhea 05/01/2006 08/08/2012 Benign neoplasm of colon 05/01/2006 013 Other acne 05/03/2005 08/08/2012 Irritable bowel syndrome 013 Depressive disorder, not elsewhere classified 04/04/2017 Insomnia, unspecified 08/08/2012 documented as of this encounter (statuses as of 12/28/2021) [facility] of Past illness Narrative* Problem Noted Date Resolved Date External hemorrhoids without mention of complica tion 04/26/2010 08/08/2012 Ganglion Cyst, arch of left foot 01/20/2010 08/08/2012 Post-menopausal bleeding 09/30/2009 013 Rosacea 07/16/2008 08/08/2012 Palpitations 10/05/2006 08/08/2012 Diarrhea 05/01/2006 08/08/2012 Benign neoplasm of colon 05/01/2006 013 Other acne 05/03/2005 08/08/2012 Irritable bowel syndrome 013 Depressive disorder, not elsewhere classified 04/04/2017 Insomnia, unspecified 08/08/2012 documented as of this encounter (statuses as of 12/29/2021) [facility] of Past illness Narrative* Problem Noted Date Resolved Date External hemorrhoids without mention of complica tion 04/26/2010 08/08/2012 Ganglion Cyst, arch of left foot 01/20/2010 08/08/2012 Post-menopausal bleeding 09/30/2009 013 Rosacea 07/16/2008 08/08/2012 Palpitations 10/05/2006 08/08/2012 Diarrhea 05/01/2006 08/08/2012 Benign neoplasm of colon 05/01/2006 013 Other acne 05/03/2005 08/08/2012 Irritable bowel syndrome 013 Depressive disorder, not elsewhere classified 04/04/2017 Insomnia, unspecified 08/08/2012 documented as of this encounter (statuses as of 02/02/2022) [facility] of [facility] illness Narrative* Problem Noted Date Resolved Date External hemorrhoids without mention of complica tion 04/26/2010 08/08/2012 Ganglion Cyst, arch of left foot 01/20/2010 08/08/2012 Post-menopausal bleeding 09/30/2009 013 Rosacea 07/16/2008 08/08/2012 Palpitations 10/05/2006 08/08/2012 Diarrhea 05/01/2006 08/08/2012 Benign neoplasm of colon 05/01/2006 013 Other acne 05/03/2005 08/08/2012 Irritable bowel syndrome 013 Depressive disorder, not elsewhere classified 04/04/2017 Insomnia, unspecified 08/08/2012 documented as of this encounter (statuses as of 02/07/2022) [facility] of [facility] illness Narrative* Problem Noted Date Resolved Date External hemorrhoids without mention of complica tion 04/26/2010 08/08/2012 Ganglion Cyst, arch of left foot 01/20/2010 08/08/2012 Post-menopausal bleeding 09/30/2009 013 Rosacea 07/16/2008 08/08/2012 Palpitations 10/05/2006 08/08/2012 Diarrhea 05/01/2006 08/08/2012 Benign neoplasm of colon 05/01/2006 013 Other acne 05/03/2005 08/08/2012 Irritable bowel syndrome 013 Depressive disorder, not elsewhere classified 04/04/2017 Insomnia, unspecified 08/08/2012 documented as of this encounter (statuses as of 03/16/2022) [facility] of [facility] illness Narrative* Problem Noted Date Resolved Date External hemorrhoids without mention of complica tion 04/26/2010 08/08/2012 Ganglion Cyst, arch of left foot 01/20/2010 08/08/2012 Post-menopausal bleeding 09/30/2009 013 Rosacea 07/16/2008 08/08/2012 Palpitations 10/05/2006 08/08/2012 Diarrhea 05/01/2006 08/08/2012 Benign neoplasm of colon 05/01/2006 013 Other acne 05/03/2005 08/08/2012 Irritable bowel syndrome 013 Depressive disorder, not elsewhere classified 04/04/2017 Insomnia, unspecified 08/08/2012 documented as of this encounter (statuses as of 04/24/2022) [facility] of [facility] illness Narrative* Problem Noted Date Resolved Date External hemorrhoids without mention of complica tion 04/26/2010 08/08/2012 Ganglion Cyst, arch of left foot 01/20/2010 08/08/2012 Post-menopausal bleeding 09/30/2009 013 Rosacea 07/16/2008 08/08/2012 Palpitations 10/05/2006 08/08/2012 Diarrhea 05/01/2006 08/08/2012 Benign neoplasm of colon 05/01/2006 013 Other acne 05/03/2005 08/08/2012 Irritable bowel syndrome 013 Depressive disorder, not elsewhere classified 04/04/2017 Insomnia, unspecified 08/08/2012 documented as of this encounter (statuses as of 05/19/2022) [facility] of [facility] illness Narrative* Problem Noted Date Resolved Date External hemorrhoids without mention of complica tion 04/26/2010 08/08/2012 Ganglion Cyst, arch of left foot 01/20/2010 08/08/2012 Post-menopausal bleeding 09/30/2009 013 Rosacea 07/16/2008 08/08/2012 Palpitations 10/05/2006 08/08/2012 Diarrhea 05/01/2006 08/08/2012 Benign neoplasm of colon 05/01/2006 013 Other acne 05/03/2005 08/08/2012 Irritable bowel syndrome 013 Depressive disorder, not elsewhere classified 04/04/2017 Insomnia, unspecified 08/08/2012 documented as of this encounter (statuses as of 06/27/2022) [facility] of [facility] illness Narrative* Problem Noted Date Resolved Date External hemorrhoids without mention of complica tion 04/26/2010 08/08/2012 Ganglion Cyst, arch of left foot 01/20/2010 08/08/2012 Post-menopausal bleeding 09/30/2009 013 Rosacea 07/16/2008 08/08/2012 Palpitations 10/05/2006 08/08/2012 Diarrhea 05/01/2006 08/08/2012 Benign neoplasm of colon 05/01/2006 013 Other acne 05/03/2005 08/08/2012 Irritable bowel syndrome 013 Depressive disorder, not elsewhere classified 04/04/2017 Insomnia, unspecified 08/08/2012 documented as of this encounter (statuses as of 07/09/2022) [facility] of [facility] illness Narrative* Problem Noted Date Resolved Date External hemorrhoids without mention of complica tion 04/26/2010 08/08/2012 Ganglion Cyst, arch of left foot 01/20/2010 08/08/2012 Post-menopausal bleeding 09/30/2009 013 Rosacea 07/16/2008 08/08/2012 Palpitations 10/05/2006 08/08/2012 Diarrhea 05/01/2006 08/08/2012 Benign neoplasm of colon 05/01/2006 013 Other acne 05/03/2005 08/08/2012 Irritable bowel syndrome 013 Depressive disorder, not elsewhere classified 04/04/2017 Insomnia, unspecified 08/08/2012 documented as of this encounter (statuses as of 07/25/2022) [facility] of [facility] illness Narrative* Problem Noted Date Resolved Date External hemorrhoids without mention of complica tion 04/26/2010 08/08/2012 Ganglion Cyst, arch of left foot 01/20/2010 08/08/2012 Post-menopausal bleeding 09/30/2009 013 Rosacea 07/16/2008 08/08/2012 Palpitations 10/05/2006 08/08/2012 Diarrhea 05/01/2006 08/08/2012 Benign neoplasm of colon 05/01/2006 013 Other acne 05/03/2005 08/08/2012 Irritable bowel syndrome 013 Depressive disorder, not elsewhere classified 04/04/2017 Insomnia, unspecified 08/08/2012 documented as of this encounter (statuses as of 08/22/2022) [facility]10[facility] History of Past illness Narrative* Problem Noted Date Resolved Date External hemorrhoids without mention of complica tion 04/26/2010 08/08/2012 Ganglion Cyst, arch of left foot 01/20/2010 08/08/2012 Post-menopausal bleeding 09/30/2009 013 Rosacea 07/16/2008 08/08/2012 Palpitations 10/05/2006 08/08/2012 Diarrhea 05/01/2006 08/08/2012 Benign neoplasm of colon 05/01/2006 013 Other acne 05/03/2005 08/08/2012 Irritable bowel syndrome 013 Depressive disorder, not elsewhere classified 04/04/2017 Insomnia, unspecified 08/08/2012 documented as of this encounter (statuses as of 09/01/2022) [facility] History of Past illness Narrative* Problem Noted Date Resolved Date External hemorrhoids without mention of complica tion 04/26/2010 08/08/2012 Ganglion Cyst, arch of left foot 01/20/2010 08/08/2012 Post-menopausal bleeding 09/30/2009 013 Rosacea 07/16/2008 08/08/2012 Palpitations 10/05/2006 08/08/2012 Diarrhea 05/01/2006 08/08/2012 Benign neoplasm of colon 05/01/2006 013 Other acne 05/03/2005 08/08/2012 Irritable bowel syndrome 013 Depressive disorder, not elsewhere classified 04/04/2017 Insomnia, unspecified 08/08/2012 documented as of this encounter (statuses as of 09/07/2022) [facility] History of Past illness Narrative* Problem Noted Date Resolved Date External hemorrhoids without mention of complica tion 04/26/2010 08/08/2012 Ganglion Cyst, arch of left foot 01/20/2010 08/08/2012 Post-menopausal bleeding 09/30/2009 013 Rosacea 07/16/2008 08/08/2012 Palpitations 10/05/2006 08/08/2012 Diarrhea 05/01/2006 08/08/2012 Benign neoplasm of colon 05/01/2006 013 Other acne 05/03/2005 08/08/2012 Irritable bowel syndrome 013 Depressive disorder, not elsewhere classified 04/04/2017 Insomnia, unspecified 08/08/2012 documented as of this encounter (statuses as of 09/22/2022) [facility] History of Past illness Narrative* Problem Noted Date Resolved Date External hemorrhoids without mention of complica tion 04/26/2010 08/08/2012 Ganglion Cyst, arch of left foot 01/20/2010 08/08/2012 Post-menopausal bleeding 09/30/2009 013 Rosacea 07/16/2008 08/08/2012 Palpitations 10/05/2006 08/08/2012 Diarrhea 05/01/2006 08/08/2012 Benign neoplasm of colon 05/01/2006 013 Other acne 05/03/2005 08/08/2012 Irritable bowel syndrome 013 Depressive disorder, not elsewhere classified 04/04/2017 Insomnia, unspecified 08/08/2012 documented as of this encounter (statuses as of 09/22/2022) [facility] History of Past illness Narrative* Problem Noted Date Resolved Date External hemorrhoids without mention of complica tion 04/26/2010 08/08/2012 Ganglion Cyst, arch of left foot 01/20/2010 08/08/2012 Post-menopausal bleeding 09/30/2009 013 Rosacea 07/16/2008 08/08/2012 Palpitations 10/05/2006 08/08/2012 Diarrhea 05/01/2006 08/08/2012 Benign neoplasm of colon 05/01/2006 013 Other acne 05/03/2005 08/08/2012 Irritable bowel syndrome 013 Depressive disorder, not elsewhere classified 04/04/2017 Insomnia, unspecified 08/08/2012 documented as of this encounter (statuses as of 11/11/2022) [facility] History of Past illness Narrative* Problem Noted Date Resolved Date External hemorrhoids without mention of complica tion 04/26/2010 08/08/2012 Ganglion Cyst, arch of left foot 01/20/2010 08/08/2012 Post-menopausal bleeding 09/30/2009 013 Rosacea 07/16/2008 08/08/2012 Palpitations 10/05/2006 08/08/2012 Diarrhea 05/01/2006 08/08/2012 Benign neoplasm of colon 05/01/2006 013 Other acne 05/03/2005 08/08/2012 Irritable bowel syndrome 013 Depressive disorder, not elsewhere classified 04/04/2017 Insomnia, unspecified 08/08/2012 documented as of this encounter (statuses as of 11/15/2022) [facility] History of Past illness Narrative* Problem Noted Date Resolved Date External hemorrhoids without mention of complica tion 04/26/2010 08/08/2012 Ganglion Cyst, arch of left foot 01/20/2010 08/08/2012 Post-menopausal bleeding 09/30/2009 013 Rosacea 07/16/2008 08/08/2012 Palpitations 10/05/2006 08/08/2012 Diarrhea 05/01/2006 08/08/2012 Benign neoplasm of colon 05/01/2006 013 Other acne 05/03/2005 08/08/2012 Irritable bowel syndrome 013 Depressive disorder, not elsewhere classified 04/04/2017 Insomnia, unspecified 08/08/2012 documented as of this encounter (statuses as of 12/13/2022) [facility] History of Past illness Narrative* Problem Noted Date Resolved Date External hemorrhoids without mention of complica tion 04/26/2010 08/08/2012 Ganglion Cyst, arch of left foot 01/20/2010 08/08/2012 Post-menopausal bleeding 09/30/2009 013 Rosacea 07/16/2008 08/08/2012 Palpitations 10/05/2006 08/08/2012 Diarrhea 05/01/2006 08/08/2012 Benign neoplasm of colon 05/01/2006 013 Other acne 05/03/2005 08/08/2012 Irritable bowel syndrome 013 Depressive disorder, not elsewhere classified 04/04/2017 Insomnia, unspecified 08/08/2012 documented as of this encounter (statuses as of 12/21/2022) [facility] History of Past illness Narrative* Problem Noted Date Resolved Date External hemorrhoids without mention of complica tion 04/26/2010 08/08/2012 Ganglion Cyst, arch of left foot 01/20/2010 08/08/2012 Post-menopausal bleeding 09/30/2009 013 Rosacea 07/16/2008 08/08/2012 Palpitations 10/05/2006 08/08/2012 Diarrhea 05/01/2006 08/08/2012 Benign neoplasm of colon 05/01/2006 013 Other acne 05/03/2005 08/08/2012 Irritable bowel syndrome 013 Depressive disorder, not elsewhere classified 04/04/2017 Insomnia, unspecified 08/08/2012 documented as of this encounter (statuses as of 12/22/2022) [facility] History of Past illness Narrative* Problem Noted Date Diagnosed Date Resolved Date External hemorrhoids without mention of complication 04/26/2010 08/08/2012 Ganglion Cyst, arch of left foot 01/20/2010 08/08/2012 Post-menopausal bleeding 09/30/200912/2012 Rosacea 07/16/2008 08/08/2012 Palpitations 10/05/2006 08/08/2012 Diarrhea 05/01/2006 08/08/2012 Benign neoplasm of colon 05/01/200612/2012 Other acne 05/03/2005 08/08/2012 Irritable bowel syndrome 12/2012 Depressive disorder, not elsewhere classified 04/04/2017 Insomnia, unspecified 2012 documented as of this encounter (statuses as of 05/07/2023) [facility] History of Past illness Narrative* Problem Noted Date Diagnosed Date Resolved Date External hemorrhoids without mention of complication 04/26/2010 08/08/2012 Ganglion Cyst, arch of left foot 01/20/2010 08/08/2012 Post-menopausal bleeding 09/30/200912/2012 Rosacea 07/16/2008 08/08/2012 Palpitations 10/05/2006 08/08/2012 Diarrhea 05/01/2006 08/08/2012 Benign neoplasm of colon 05/01/200612/2012 Other acne 05/03/2005 08/08/2012 Irritable bowel syndrome 12/2012 Depressive disorder, not elsewhere classified 04/04/2017 Insomnia, unspecified 2012 documented as of this encounter (statuses as of 08/31/2023) [facility] note* Diagnosis Personal history of colonic polyps [facility]* Diagnosis OPENED IN ERROR- Primary To allow closing an encounter opened in error (used in SmartSet) documented in this [facility] noteNo assessment information availableWCommunity [facility] Work Phone: Evaluation note* Diagnosis Thyroid cyst- Primary Cyst of thyroid Elevated TSH Nonspecific abnormal results of thyroid function study documented [facility]* Diagnosis Paroxysmal atrial fibrillation (HCC)- Primary Atrial fibrillation Palpitations Elevated TSH Nonspecific abnormal results of thyroid function study documented [facility]* Diagnosis Mammographic microcalcification [facility] Diagnosis Elevated TSH- Primary Nonspecific abnormal results of thyroid function study Paroxysmal atrial fibrillation (HCC) Atrial fibrillation Hot flashes Symptomatic menopausal or female climacteric states Vitamin D deficiency Unspecified vitamin D deficiency Essential hypertension Unspecified essential hypertension Encounter for long-term current use of medication [facility] Diagnosis Psychophysiological insomnia Persistent disorder of initiating or maintaining sleep documented [facility]* Diagnosis COVID-19 virus infection- Primary [facility] Diagnosis Psychophysiological insomnia- Primary Persistent disorder of initiating or maintaining sleep Essential hypertension Unspecified essential hypertension Elevated TSH Nonspecific abnormal results of thyroid function study Paroxysmal atrial fibrillation (HCC) Atrial fibrillation Vitamin D deficiency Unspecified vitamin D deficiency Generalized anxiety disorder Encounter for long-term current use of medication Encounter for screening mammogram for breast cancer documented [facility]* Diagnosis Elevated TSH- Primary Nonspecific abnormal results of thyroid function study Essential hypertension Unspecified essential hypertension Paroxysmal atrial fibrillation (HCC) Atrial fibrillation [facility]* Diagnosis 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 note* Diagnosis Psychophysiological insomnia Persistent disorder of initiating or maintaining sleep documented in this encounter 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 note* Diagnosis Encounter for screening mammogram for breast cancer documented in this encounter [facility] note* Diagnosis Encounter for therapeutic drug monitoring- Primary Vitamin D deficiency Unspecified vitamin D deficiency Dyslipidemia Other and unspecified hyperlipidemia documented in this encounter [facility] note* Diagnosis Essential hypertension- Primary Unspecified essential hypertension Ankle edema, bilateral Psychophysiological insomnia Persistent disorder of initiating or maintaining sleep Vitamin D deficiency Unspecified vitamin D deficiency Encounter for immunization Need for other specified prophylactic vaccination against single bacterial disease Encounter for long-term current use of medication documented in this encounter [facility] note* Diagnosis Psychophysiological insomnia Persistent disorder of initiating or maintaining sleep documented in this encounter [facility] note* Diagnosis Medicare annual wellness visit, subsequent- Primary Routine general medical examination at a health care facility Essential hypertension Unspecified essential hypertension Vitamin D deficiency Unspecified vitamin D deficiency Generalized anxiety disorder Paroxysmal atrial fibrillation (HCC) Atrial fibrillation Psychophysiological insomnia Persistent disorder of initiating or maintaining sleep Encounter for immunization Need for other specified prophylactic vaccination against single bacterial disease Screening for depression Encounter for screening mammogram for breast cancer documented in this encounter [facility] note* Diagnosis COVID- Primary documented in this encounter [facility] note* Diagnosis Encounter for screening mammogram for breast cancer documented in this encounter [facility] note* Diagnosis Psychophysiological insomnia Persistent disorder of initiating or maintaining sleep documented in this encounter [facility] note* Diagnosis Psychophysiological insomnia- Primary Persistent disorder of initiating or maintaining sleep Paroxysmal atrial fibrillation (HCC) Atrial fibrillation Hypercholesterolemia Pure hypercholesterolemia Chronic pain of right knee Primary osteoarthritis of right knee Primary localized osteoarthrosis, lower leg Essential hypertension Unspecified essential hypertension Vitamin D deficiency Unspecified vitamin D deficiency documented in this encounter [facility] Discharge instructions Additional Instructions You cardioverted with synchronized 150 J. EKG back in sinus rhythm rate in the 50s. Continue home medications. Follow-up with Dr. Thapa.[facility] Work Phone: Hospital Discharge instructionsAmbulatory Orders* Electrophysiology Location: None Selected [facility] Work Phone: Reason for referral (narrative)* Outpatient Procedure (Routine) - Closed Specialty Diagnoses / Procedures Referred By Tino t Referred To Contact [facility] Diagnoses Personal history of colonic polyps Procedures COLONOSCOPY SCREENING COLONOSCOPY FLX DX W/COLLJ SPEC WHEN PFRMD Jake Boyle MD [address] [place] [address] [facility] [address] [place] [address] Referral ID Status Reason Start Date Expiration Date V isits Requested Visits Authorized [id number] Closed Auto-Generate d Referral 08/19/2021 08/19/2022 1 1 [facility] for referral (narrative)* Diagnostic Procedure Only (Routine) - Pending Review Specialty Diagnoses / Procedures Referred By Tino simons Referred To Contact [facility] Diagnoses Thyroid cyst Elevated TSH Procedures US THYROID/PARATHYROID US SOFT TISSUE HEAD & NECK REAL TIME IMGE Katey Ruiz APRN.CNS [address] [place] [address] [facility] Referral ID Status Reason Start Date Expiration Date Visits Requested Visits Authorized [id number] Pending Review Auto-Generat ed Referral 01/31/2022 03/02/2023 1 1 [facility] for referral (narrative)* Diagnostic Procedure Only (Routine) - Closed Specialty Diagnoses / Procedures Referred By Tino t Referred To Contact [facility] Diagnoses Mammographic microcalcification Procedures [facility] DIAGNOSTIC LT DIAGNOSTIC MAMMOGRAPHY COMPUTER-AIDED DETCJ Jf Sierra MD [address] [place] [address] [facility] [address] [place] [address] Referral ID Status Reason Start Date Expiration Date V isits Requested Visits Authorized [id number] Closed Auto-Generate d Referral 10/08/2021 10/27/2022 1 1 [facility] for referral (narrative)* Diagnostic Procedure Only (Routine) - Authorized Specialty Diagnoses / Procedures Referred By Tino simons Referred To Contact [facility] Diagnoses Encounter for screening mammogram for breast cancer Procedures [facility] SCREENING SCREENING MAMMOGRAPHY BI 2-VIEW BREAST INC Liliam Villavicencio MD [address] [place] [address] [facility] [address] [place] [address] Referral ID Status Reason Start Date Expiration Date Visits Requested Visits Authorized [id number] Authorized Auto-Generat ed Referral 07/22/2023 1 1 [facility] for referral (narrative)* Diagnostic Procedure Only (Routine) - Closed Specialty Diagnoses / Procedures Referred By Tino simons Referred To Contact [facility] Diagnoses Encounter for screening mammogram for breast cancer Procedures [facility] SCREENING SCREENING MAMMOGRAPHY BI 2-VIEW BREAST INC Liliam Villavicencio MD [facility] [place] [address] [facility] [address] [place] [address] Referral ID Status Reason Start Date Expiration Date V isits Requested Visits Authorized [id number] Closed Auto-Generate d Referral 06/22/2022 07/22/2023 1 1 [facility] for referral (narrative)* Diagnostic Procedure Only (Routine) - Authorized Specialty Diagnoses / Procedures Referred By Tino simons Referred To Contact [facility] Diagnoses Encounter for screening mammogram for breast cancer Procedures [facility] SCREENING W BRITTANEY SCREENING DIGITAL BREAST TOMOSYNTHESIS BI SCREENING MAMMOGRAPHY BI 2-VIEW BREAST INC Liliam Villavicencio MD [address] [place] [address] [facility] [address] [place] [address] Referral ID Status Reason Start Date Expiration Date Visits Requested Visits Authorized [id number] Authorized Auto-Generat ed Referral 07/14/2025 1 1 [facility] for referral (narrative)No reason for referral information availableWCommunity [facility] Medical Center Work Phone: Reason for visit Narrative* Outpatient Procedure (Routine) - Closed Specialty Diagnoses / Procedures Referred By Tino t Referred To Contact [facility] Diagnoses Personal history of colonic polyps Procedures COLONOSCOPY SCREENING COLONOSCOPY FLX DX W/COLLJ SPEC WHEN Jake Correa MD [address] [place] [address] [facility] [address] [place] [address] Referral ID Status Reason Start Date Expiration Date V isits Requested Visits Authorized [id number] Closed Auto-Generate d Referral 08/19/2021 08/19/2022 1 1 [facility] for visit Narrative* Diagnostic Procedure Only (Routine) - Closed Specialty Diagnoses / Procedures Referred By Tino t Referred To Contact [facility] Diagnoses Mammographic microcalcification Procedures [facility] DIAGNOSTIC LT DIAGNOSTIC MAMMOGRAPHY COMPUTER-AIDED DETCJ Jf Sierra MD [address] [place] [address] [facility] [address] [place] [id number] Referral ID Status Reason Start Date Expiration Date V isits Requested Visits Authorized [id number] Closed Auto-Generate d Referral 10/08/2021 10/27/2022 1 1 [facility] for visit Narrative* Diagnostic Procedure Only (Routine) - Closed Specialty Diagnoses / Procedures Referred By Tino t Referred To Contact [facility] Diagnoses Encounter for screening mammogram for breast cancer Procedures LOUIS SCREENING SCREENING MAMMOGRAPHY BI 2-VIEW BREAST INC CAD Liliam Alaniz MD [address] [place] [address] [facility] [address] [place] [address] Referral ID Status Reason Start Date Expiration Date V isits Requested Visits Authorized [id number] Closed Auto-Generate d Referral 06/22/2022 07/22/2023 1 1 [facility] Diagnostic Procedure Only (Routine) - Closed Specialty Diagnoses / Procedures Referred By Tino t Referred To Contact [facility] Diagnoses Encounter for screening mammogram for breast cancer Procedures LOUIS SCREENING W BRITTANEY SCREENING DIGITAL BREAST TOMOSYNTHESIS BI SCREENING MAMMOGRAPHY BI 2-VIEW BREAST INC Liliam Villavicencio MD [address] [place] [address] Phone: tel: fax: [facility] [address] [place] [address] Referral ID Status Reason Start Date Expiration Date V isits Requested Visits Authorized [id number] Closed Auto-Generate d Referral 06/14/2024 07/14/2025 1 1 [facility] Chief Complaint and Reason for Visit Chief Complaint 3 M FU ABD MAMM Reason for Visit Essential (primary) hypertension Paroxysmal atrial fibrillation Mammographic microcalcification Chief Complaint FLUTTERING IN CHEST Chief Complaint 6 M FU SINUS BRADYCARDIA Reason for Visit Sinus bradycardia Essential (primary) hypertension Paroxysmal atrial fibrillation Chief Complaint 6 M FU SINUS BRADYCARDIA AFIB Reason for Visit Sinus bradycardia Essential (primary) hypertension Paroxysmal atrial fibrillation Chief Complaint 1 Y FU E ORDER Reason for Visit Sinus bradycardia Essential (primary) hypertension Paroxysmal atrial fibrillation Chief Complaint 1 Y FU E ORDER E ORDER Reason for Visit Sinus bradycardia Essential (primary) hypertension Paroxysmal atrial fibrillation Chief Complaint Admit Date Atrial fibrillation September 16, 2024 1:0 9pm AFIB September 16, 2024 1:5 0pm Chief Complaint Admit Date Atrial fibrillation September 16, 2024 1:0 9pm AFIB September 16, 2024 1:5 0pm 6 M FU October 04, 2024 1:39 pm a fib, see clinical notes January 10 9:23am Reason for Visit Admit Date Essential (primary) hypertension October 042024 1:39pm Paroxysmal atrial fibrillation October 1:39pm Paroxysmal atrial flutter January 10 9:23am Chief Complaint Admit Date Atrial fibrillation September 16, 2024 1:0 9pm AFIB September 16, 2024 1:5 0pm 6 M FU October 04, 2024 1:39 pm a fib, see clinical notes January 10 9:23am AFIB January 13, 2025 10:2 4am Atrial fibrillation January 13, 2025 12:1 2pm Atrial fibrillation January 13, 2025 1:12 pm Reason for Visit Admit Date Essential (primary) hypertension October 042024 1:39pm Paroxysmal atrial fibrillation October 1:39pm Paroxysmal atrial flutter January 10 9:23am Paroxysmal atrial flutter January 13 10:24am Chief Complaint Admit Date 6 M FU October 04, 2024 1:39 pm a fib, see clinical notes January 10 9:23am AFIB January 13, 2025 10:2 4am Atrial fibrillation January 13, 2025 12:1 2pm Atrial fibrillation January 13, 2025 1:12 pm MOLD FINISHER TO SEE/PER SP January 15, 2025 10:0 9am Chief Complaint Admit Date 6 M FU October 04, 2024 1:39 pm a fib, see clinical notes January 10 9:23am AFIB January 13, 2025 10:2 4am Atrial fibrillation January 13, 2025 12:1 2pm Atrial fibrillation January 13, 2025 1:12 pm MOLD FINISHER TO SEE/PER SP January 15, 2025 10:0 9am 1 WK DCCV January 20, 2025 1:06 pm Chief Complaint Admit Date 6 M FU October 04, 2024 1:39 pm a fib, see clinical notes January 10 9:23am AFIB January 13, 2025 10:2 4am Atrial fibrillation January 13, 2025 12:1 2pm Atrial fibrillation January 13, 2025 1:12 pm MOLD FINISHER TO SEE/PER SP January 15, 2025 10:0 9am 1 WK DCCV January 20, 2025 1:06 pm Blood pressure check January 31, 2025 1: 33pm Chief Complaint Admit Date a fib, see clinical notes January 10 9:23am AFIB January 13, 2025 10:2 4am Atrial fibrillation January 13, 2025 12:1 2pm Atrial fibrillation January 13, 2025 1:12 pm MOLD FINISHER TO SEE/PER SP January 15, 2025 10:0 9am 1 WK DCCV January 20, 2025 1:06 pm Blood pressure check January 31, 2025 1: 33pm EKG February 07, 2025 1:3 9pm Reason for Visit Admit Date Paroxysmal atrial flutter January 10 9:23am Paroxysmal atrial flutter January 13 10:24am Paroxysmal atrial fibrillation January 1:33pm Paroxysmal atrial flutter January 31 1:33pm Family History Relationship Condition Age at Onset Recorded Date/T jade mother Hypertension Unknown father Hypertension Unknown Malignant neoplasm of prostate Unknown Leukemia Unknown sister Unknown Deep vein thrombosis (DVT) Unknown Hypertension Unknown Advance Directives Advance Directive Response Recorded Date/ Time Advance Directives Yes November 11 10:42am Living Will Yes February 06, 2021 5:12pm Power of Single Stroke Preformer Yes February 06 5:12pm Documents on File Type Date Recorded Patient 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 [employer]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 Expl 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 Advance Directive(s) 11/02/2021 7:31 AM Advance Directive(s) 09/22/2016 10:45 AM Advance Directive(s) 09/14/2016 3:12 PM Advance Directive(s) 04/10/2013 2:33 PM Advance Directive(s) 04/10/2013 2:34 PM Advance Directive(s) 05/10/2010 9:21 PM Documents on File Type Date Recorded Patient 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 [employer]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 Expl anation Advance Directive(s) 11/02/2021 7:31 AM Advance Directive(s) 09/22/2016 10:45 AM Advance Directive(s) 09/14/2016 3:12 PM Advance Directive(s) 04/10/2013 2:33 PM Advance Directive(s) 04/10/2013 2:34 PM Advance Directive(s) 05/10/2010 9:21 PM Advance Directive Response Recorded Date/ Time Advance Directives Yes November 11 10:42am Living Will Yes January 26, 2022 10:40pm Power of Single Stroke Preformer Yes January 26 10:40pm Name of Medical Power of Single Stroke Preformer January 26, 2022 10:40pm Documents on File Type Date Recorded Patient Certified Adapt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 Expl anation Advance Directive(s) 04/10/2013 2:33 PM Advance Directive(s) 04/10/2013 2:34 PM Advance Directive(s) 05/10/2010 9:21 PM Documents on File Type Date Recorded Patient Certified Adapt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 Expl anation Advance Directive(s) 04/10/2013 2:33 PM Advance Directive(s) 04/10/2013 2:34 PM Advance Directive(s) 05/10/2010 9:21 PM Advance Directive Response Recorded Date/ Time Advance Directives Yes November 11 10:42am Living Will Yes January 26, 2022 10:40pm Power of Single Stroke Preformer Yes January 26 10:40pm Advance Directive Response Recorded Date/ Time Name of Medical Power of Single Stroke Preformer JOZEF OHARA April 13, 2023 12:53pm Advance Directives Yes November 11 10:42am Living Will Yes April 13 12:53pm Power of Single Stroke Preformer Yes April 13, 2023 12:53pm Documents on File Type Date Recorded Patient Certified Adapt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 Expl anation Advance Directive(s) 04/10/2013 2:34 PM Advance Directive(s) 04/10/2013 2:33 PM Advance Directive(s) 05/10/2010 9:21 PM Documents on File Type Date Recorded Patient Certified Adapt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 Expl anation Advance Directive(s) 04/10/2013 2:34 PM Advance Directive(s) 04/10/2013 2:33 PM Advance Directive(s) 05/10/2010 9:21 PM Advance Directive Response Recorded Date/ Time Advance Directives Yes November 11 10:42am Living Will Yes April 13 12:53pm Power of Single Stroke Preformer Yes April 13, 2023 12:53pm Advance Directive Response Recorded Date/ Time Living Will Yes September 16, 2024 2:56pm Power of Single Stroke Preformer Yes September 16 2:56pm Name of Medical Power of Single Stroke Preformer Jozef chadwick September 16, 2024 2:56pm Advance Directives Yes November 11 10:42am Advance Directive Response Recorded Date/ Time Living Will Yes April 13 12:53pm Do you have a Healthcare Pow er of Single Stroke Preformer? Yes April 13, 2023 12:53pm Living Will Yes September 16, 2024 2:56pm Do you have a Healthcare Pow er of Single Stroke Preformer? Yes September 16, 2024 2:56pm Name of Medical Power of Single Stroke Preformer Jozef chadwick September 16, 2024 2:56pm Advance Directives Yes November 11 10:42am Advance Directive Response Recorded Date/ Time Living Will Yes April 13 12:53pm Do you have a Healthcare Pow er of Single Stroke Preformer? Yes April 13, 2023 12:53pm Living Will Yes September 16, 2024 2:56pm Do you have a Healthcare Pow er of Single Stroke Preformer? Yes September 16, 2024 2:56pm Name of Medical Power of Single Stroke Preformer Jozef chadwick September 16, 2024 2:56pm Advance Directives on File Yes January 13, 2025 11:13am Living Will Yes January 13, 2025 11:13am Do you have a Healthcare Pow er of Single Stroke Preformer? Yes January 13, 2025 11:13am Name of Medical Power of Single Stroke Preformer osvaldo anaya n January 13, 2025 11:13am Advance Directives Yes January 13 11:13am Advance Directive Response Recorded Date/ Time Living Will Yes April 13 12:53pm Do you have a Healthcare Pow er of Single Stroke Preformer? Yes April 13, 2023 12:53pm Advance Directives on File Yes January 13, 2025 11:13am Living Will Yes January 13, 2025 11:13am Do you have a Healthcare Pow er of Single Stroke Preformer? Yes January 13, 2025 11:13am Name of Medical Power of Single Stroke Preformer osvaldo anaya n January 13, 2025 11:13am Advance Directives Yes January 13 11:13am Advance Directive Response Recorded Date/ Time Advance Directives on File Yes January 13, 2025 11:13am Living Will Yes January 13, 2025 11:13am Do you have a Healthcare Power of Single Stroke Preformer? Yes January 13, 2025 11:13am Name of Medical Power of Single Stroke Preformer osvaldo anaya n January 13, 2025 11:13am Advance Directives Yes January 13 11:13am Medications Administered Section Inactive Administered Medications - up to 3 most recent administrations Medication Order MAR Action Action Date Dose Rate Site fentaNYL 50 mcg/mL 25-100 mcg injection (SUBLIMAZE) 25-100 mcg, INTRAVENOUS, DIRECTED, Starting on Mon11/02/21 at 0930, Until Mon11/02/21 at 1329, DOSING DIRECTED BY PHYSICIAN FOR PROCEDURAL SEDATION ONLY, Intraprocedure Given 11/02/2021 9:00 AM EDT 25 mcg Given 11/02/2021 8:58 AM EDT 50 mcg lactated ringers iv infusion 30 mL/hr, INTRAVENOUS, CONTINUOUS, Starting on Mon11/02/21 at 0800, Until Mon11/02/21 at 0927, Preprocedure New Bag/Syringe/Raquel le 11/02/2021 8:00 AM EDT 30 mL/hr 30 mL/hr Wrist, Right midazolam (PF) 1-5 mg injection (VERSED) 1-5 mg, INTRAVENOUS, DIRECTED, Starting on Mon11/02/21 at 0930, Until Mon11/02/21 at 1329, DOSING DIRECTED BY PHYSICIAN FOR PROCEDURAL SEDATION ONLY, Intraprocedure Given 11/02/2021 9:00 AM EDT 1 mg Given 11/02/2021 8:58 AM EDT 3 mg Summary Purpose Additional Source Comments Goals (unrecognized section and content) Goals may be documented in a n alternate sectionGoals may be documented in an alternate sectionGoals may be documented in an alternate sectionGoals may be documented in an alternate sectionGoals may be documented in an alternate sectionGoals may be documented in an alternate sectionGoals may be documented in an alternate sectionGoals may be documented in an alternate sectionGoals may be documented in an alternate sectionGoals may be documented in an alternate sectionGoals may be documented in an alternate sectionGoals may be documented in an alternate sectionGoals may be documented in an alternate section Source Comments (unrecognize d section and content) In the event this informatio n is protected by the Federal Confidentiality of Alcohol and Drug Abuse Patient Records regulations: The Federal rules restrict any use of the information to criminally investigate or prosecute any alcohol or drug abuse patient.[facility] Center[facility] the event this information is protected by the Federal Confidentiality of Alcohol and Drug Abuse Patient Records regulations: The Federal rules restrict any use of the information to criminally investigate or prosecute any alcohol or drug abuse patient.[facility] CenterIn the event this information is protected by the Federal Confidentiality of Alcohol and Drug Abuse Patient Records regulations: The Federal rules restrict any use of the information to criminally investigate or prosecute any alcohol or drug abuse patient.[facility] CenterIn the event this information is protected by the Federal Confidentiality of Alcohol and Drug Abuse Patient Records regulations: The Federal rules restrict any use of the information to criminally investigate or prosecute any alcohol or drug abuse patient.[facility] CenterIn the event this information is protected by the Federal Confidentiality of Alcohol and Drug Abuse Patient Records regulations: The Federal rules restrict any use of the information to criminally investigate or prosecute any alcohol or drug abuse patient.[facility] CenterIn the event this information is protected by the Federal Confidentiality of Alcohol and Drug Abuse Patient Records regulations: The Federal rules restrict any use of the information to criminally investigate or prosecute any alcohol or drug abuse patient.[facility] CenterIn the event this information is protected by the Federal Confidentiality of Alcohol and Drug Abuse Patient Records regulations: The Federal rules restrict any use of the information to criminally investigate or prosecute any alcohol or drug abuse patient.[facility] CenterIn the event this information is protected by the Federal Confidentiality of Alcohol and Drug Abuse Patient Records regulations: The Federal rules restrict any use of the information to criminally investigate or prosecute any alcohol or drug abuse patient.[facility] CenterIn the event this information is protected by the Federal Confidentiality of Alcohol and Drug Abuse Patient Records regulations: The Federal rules restrict any use of the information to criminally investigate or prosecute any alcohol or drug abuse patient.[facility] CenterIn the event this information is protected by the Federal Confidentiality of Alcohol and Drug Abuse Patient Records regulations: The Federal rules restrict any use of the information to criminally investigate or prosecute any alcohol or drug abuse patient.[facility] CenterIn the event this information is protected by the Federal Confidentiality of Alcohol and Drug Abuse Patient Records regulations: The Federal rules restrict any use of the information to criminally investigate or prosecute any alcohol or drug abuse patient.[facility] CenterIn the event this information is protected by the Federal Confidentiality of Alcohol and Drug Abuse Patient Records regulations: The Federal rules restrict any use of the information to criminally investigate or prosecute any alcohol or drug abuse patient.[facility] CenterIn the event this information is protected by the Federal Confidentiality of Alcohol and Drug Abuse Patient Records regulations: The Federal rules restrict any use of the information to criminally investigate or prosecute any alcohol or drug abuse patient.[facility] CenterIn the event this information is protected by the Federal Confidentiality of Alcohol and Drug Abuse Patient Records regulations: The Federal rules restrict any use of the information to criminally investigate or prosecute any alcohol or drug abuse patient.[facility] CenterIn the event this information is protected by the Federal Confidentiality of Alcohol and Drug Abuse Patient Records regulations: The Federal rules restrict any use of the information to criminally investigate or prosecute any alcohol or drug abuse patient.[facility] CenterIn the event this information is protected by the Federal Confidentiality of Alcohol and Drug Abuse Patient Records regulations: The Federal rules restrict any use of the information to criminally investigate or prosecute any alcohol or drug abuse patient.[facility] CenterIn the event this information is protected by the Federal Confidentiality of Alcohol and Drug Abuse Patient Records regulations: The Federal rules restrict any use of the information to criminally investigate or prosecute any alcohol or drug abuse patient.[facility] CenterIn the event this information is protected by the Federal Confidentiality of Alcohol and Drug Abuse Patient Records regulations: The Federal rules restrict any use of the information to criminally investigate or prosecute any alcohol or drug abuse patient.[facility] CenterIn the event this information is protected by the Federal Confidentiality of Alcohol and Drug Abuse Patient Records regulations: The Federal rules restrict any use of the information to criminally investigate or prosecute any alcohol or drug abuse patient.[facility] CenterIn the event this information is protected by the Federal Confidentiality of Alcohol and Drug Abuse Patient Records regulations: The Federal rules restrict any use of the information to criminally investigate or prosecute any alcohol or drug abuse patient.[facility] CenterIn the event this information is protected by the Federal Confidentiality of Alcohol and Drug Abuse Patient Records regulations: The Federal rules restrict any use of the information to criminally investigate or prosecute any alcohol or drug abuse patient.[facility] CenterIn the event this information is protected by the Federal Confidentiality of Alcohol and Drug Abuse Patient Records regulations: The Federal rules restrict any use of the information to criminally investigate or prosecute any alcohol or drug abuse patient.[facility] CenterIn the event this information is protected by the Federal Confidentiality of Alcohol and Drug Abuse Patient Records regulations: The Federal rules restrict any use of the information to criminally investigate or prosecute any alcohol or drug abuse patient.[facility] CenterIn the event this information is protected by the Federal Confidentiality of Alcohol and Drug Abuse Patient Records regulations: The Federal rules restrict any use of the information to criminally investigate or prosecute any alcohol or drug abuse patient.[facility] CenterIn the event this information is protected by the Federal Confidentiality of Alcohol and Drug Abuse Patient Records regulations: The Federal rules restrict any use of the information to criminally investigate or prosecute any alcohol or drug abuse patient.[facility] CenterIn the event this information is protected by the Federal Confidentiality of Alcohol and Drug Abuse Patient Records regulations: The Federal rules restrict any use of the information to criminally investigate or prosecute any alcohol or drug abuse patient.[facility] CenterIn the event this information is protected by the Federal Confidentiality of Alcohol and Drug Abuse Patient Records regulations: The Federal rules restrict any use of the information to criminally investigate or prosecute any alcohol or drug abuse patient.[facility] CenterIn the event this information is protected by the Federal Confidentiality of Alcohol and Drug Abuse Patient Records regulations: The Federal rules restrict any use of the information to criminally investigate or prosecute any alcohol or drug abuse patient.[facility] CenterIn the event this information is protected by the Federal Confidentiality of Alcohol and Drug Abuse Patient Records regulations: The Federal rules restrict any use of the information to criminally investigate or prosecute any alcohol or drug abuse patient.[facility] CenterIn the event this information is protected by the Federal Confidentiality of Alcohol and Drug Abuse Patient Records regulations: The Federal rules restrict any use of the information to criminally investigate or prosecute any alcohol or drug abuse patient.[facility] CenterIn the event this information is protected by the Federal Confidentiality of Alcohol and Drug Abuse Patient Records regulations: The Federal rules restrict any use of the information to criminally investigate or prosecute any alcohol or drug abuse patient.[facility] CenterIn the event this information is protected by the Federal Confidentiality of Alcohol and Drug Abuse Patient Records regulations: The Federal rules restrict any use of the information to criminally investigate or prosecute any alcohol or drug abuse patient.[facility] CenterIn the event this information is protected by the Federal Confidentiality of Alcohol and Drug Abuse Patient Records regulations: The Federal rules restrict any use of the information to criminally investigate or prosecute any alcohol or drug abuse patient.[facility] CenterIn the event this information is protected by the Federal Confidentiality of Alcohol and Drug Abuse Patient Records regulations: The Federal rules restrict any use of the information to criminally investigate or prosecute any alcohol or drug abuse patient.[facility] CenterIn the event this information is protected by the Federal Confidentiality of Alcohol and Drug Abuse Patient Records regulations: The Federal rules restrict any use of the information to criminally investigate or prosecute any alcohol or drug abuse patient.[facility] Care Teams (unrecognized sec tion and content) Cocoa Bean Roaster Helper Relationship Specialty Start Date End Date Liliam Alaniz MD [address] [place] [address] PCP - General 11/08/02 Cocoa Bean Roaster Helper Relationship Specialty Start Date End Date Liliam Alaniz MD [address] [place] [address] PCP - General 11/08/02 Cocoa Bean Roaster Helper Relationship Specialty Start Date End Date Liliam Alaniz MD [facility] [place] [address] PCP - General 11/08/02 Cocoa Bean Roaster Helper Relationship Specialty Start Date End Date Liliam Alaniz MD [address] [place] [address], [place] [address] PCP - General 11/08/02 Cocoa Bean Roaster Helper Relationship Specialty Start Date End Date iLliam Alaniz MD [address] [place] [address], [place] [address] PCP - General 11/08/02 Cocoa Bean Roaster Helper Relationship Specialty Start Date End Date Liliam Alaniz MD [address] [place] [address], [place] [address] PCP - General 11/08/02 Cocoa Bean Roaster Helper Relationship Specialty Start Date End Date Liliam Alaniz MD [address] [place] [address], [place] [address] PCP - General 11/08/02 Cocoa Bean Roaster Helper Relationship Specialty Start Date End Date Liliam Alaniz MD [address] [place] [address], [place] [address] PCP - General 11/08/02 Cocoa Bean Roaster Helper Relationship Specialty Start Date End Date Liliam Alaniz MD [address] [place] [address], [place] [address] PCP - General 11/08/02 Cocoa Bean Roaster Helper Relationship Specialty Start Date End Date Liliam Alaniz MD [address] [place] [address], [place] [address] PCP - General 11/08/02 Cocoa Bean Roaster Helper Relationship Specialty Start Date End Date Liliam Alaniz MD [address] [place] [address], [place] [address] PCP - General 11/08/02 Cocoa Bean Roaster Helper Relationship Specialty Start Date End Date Liliam Alaniz MD [address] [place] [address] PCP - General 11/08/02 Team Status: Active Member Role Status Dates Dr. Liliam Alaniz MD Family Provider Active Dr. Liliam Alaniz MD Primary Care Provider Active Team Status: Inactive Member Role Status Dates Dr. Liliam Alaniz MD Primary Care Provider, Referr ing Provider Active Rea Campbell MARSHMALLOW MACHINE WORKER, MARSHMALLOW MACHINE WORKER-C Attending Provider Active Team Status: Inactive Member Role Status Dates Dr. Liliam Alaniz MD Primary Care Provider Active Rea Campbell MARSHMALLOW MACHINE WORKER, MARSHMALLOW MACHINE WORKER-C Attending Provider, Referring P geovanna Active Team Status: Inactive Member Role Status Dates Dr. Liliam Alaniz MD Primary Care Provider Active Dr. Jf Gallegos DO Emergency Provider Active Cocoa Bean Roaster Helper Relationship Specialty Start Date End Date Liliam Alaniz MD [address] [place] [address] PCP - General 11/08/02 Cocoa Bean Roaster Helper Relationship Specialty Start Date End Date Liliam Alaniz MD [address] [place] [address] PCP - General 11/08/02 Team Status: Inactive Member Role Status Dates Dr. Liliam Alaniz MD Primary Care Provider, Referr ing Provider Active Dr. Sterling Thapa MD Attending Provider Active Team Status: Inactive Member Role Status Dates Dr. Liliam Alaniz MD Primary Care Provider Active Dr. Sterling Thapa MD Attending Provider, Referring Pro vider Active Cocoa Bean Roaster Helper Relationship Specialty Start Date End Date Liliam Alaniz MD [address] [place] [address] PCP - General 11/08/02 Cocoa Bean Roaster Helper Relationship Specialty Start Date End Date Liliam Alaniz MD [address] [place] [address] PCP - General 11/08/02 Cocoa Bean Roaster Helper Relationship Specialty Start Date End Date Liliam Alaniz MD [address] [place] [address] PCP - General 11/08/02 Cocoa Bean Roaster Helper Relationship Specialty Start Date End Date Liliam Alaniz MD [address] [place] [address] PCP - General 11/08/02 Katey Stanton, RELIEF SALESPERSON.RELIEF SALESPERSON [address] [place] [address] Vocational Education Teacher Internal Medicine 06/10/24 Barbra Daniels RELIEF SALESPERSON.PRECISION DEVICES INSPECTOR/TESTER [address] [place] [address] Vocational Education Teacher Internal Medicine 06/10/24 Cocoa Bean Roaster Helper Relationship Specialty Start Date End Date Liliam Alaniz MD [address] [place] [address] PCP - General 11/08/02 Katey Stanton, RELIEF SALESPERSON.RELIEF SALESPERSON [address] [place] [address] Vocational Education Teacher Internal Medicine 06/10/24 Barbra Daniels RELIEF SALESPERSON.PRECISION DEVICES INSPECTOR/TESTER [address] [place] [address] Vocational Education Teacher Internal Medicine 06/10/24 Cocoa Bean Roaster Helper Relationship Specialty Start Date End Date Liliam Alaniz MD [address] [facility] [place] [address] PCP - General 11/08/02 Katey Stanton, RELIEF SALESPERSON.RELIEF SALESPERSON [address] [facility] [place] [address] Vocational Education Teacher Internal Medicine 06/10/24 Barbra Daniels RELIEF SALESPERSON.PRECISION DEVICES INSPECTOR/TESTER [address] [facility] [place] [address] Vocational Education Teacher Internal Medicine 06/10/24 Cocoa Bean Roaster Helper Relationship Specialty Start Date End Date Liliam Alaniz MD [address] [facility] [place] [address] PCP - General 11/08/02 Katey Stanton, RELIEF SALESPERSON.RELIEF SALESPERSON [address] [facility] [place] [address] Vocational Education Teacher Internal Medicine 06/10/24 Barbra Daniels RELIEF SALESPERSON.PRECISION DEVICES INSPECTOR/TESTER [address] [facility] [place] [address] Vocational Education Teacher Internal Medicine 06/10/24 Cocoa Bean Roaster Helper Relationship Specialty Start Date End Date Liliam Alaniz MD [address] [place] [address] PCP - General 11/08/02 Katey Stanton, RELIEF SALESPERSON.RELIEF SALESPERSON [address] [facility] [place] [address] Vocational Education Teacher Internal Medicine 06/10/24 Team Status: Active Member Role Status Dates Dr. Liliam Alaniz MD Primary Care Provider Active Team Status: Inactive Member Role Status Dates Dr. Liliam Alaniz MD Primary Care Provider Active Start: September 16, 2024 End: September 16, 2024 Dr. Liliam Alaniz MD Referring Provider Active Start: September 16, 2024 End: September 16, 2024 Jozef Carr MARSHMALLOW MACHINE WORKER, MARSHMALLOW MACHINE WORKER-C Attending Provider Active S tart: September 16, 2024 End: September 16, 2024 Team Status: Inactive Member Role Status Dates Dr. Liliam Alaniz MD Primary Care Provider Active Start: September 16, 2024 End: September 16, 2024 Dr. Audie Nieves DO Emergency Provider Active Start : September 16, 2024 End: September 16, 2024 Cocoa Bean Roaster Helper Relationship Specialty Start Date End Date Liliam Alaniz MD [address] [facility] [place] [address] PCP - General 11/08/02 Barbra Daniels RELIEF SALESPERSON.PRECISION DEVICES INSPECTOR/TESTER [address] [facility] [place] [address] Vocational Education Teacher Internal Medicine 09/24/24 Katey Stanton, RELIEF SALESPERSON.RELIEF SALESPERSON [address] [facility] [place] [address] Vocational Education Teacher Internal Medicine 11/20/24 Cocoa Bean Roaster Helper Relationship Specialty Start Date End Date Liliam Alaniz MD [address] [facility] [place] [address] PCP - General 11/08/02 Katey Stanton, RELIEF SALESPERSON.RELIEF SALESPERSON [address] [facility] [place] [address] Vocational Education Teacher Internal Medicine 06/10/24 11/19/24 Barbra Daniels RELIEF SALESPERSON.PRECISION DEVICES INSPECTOR/TESTER [address] [facility] [place] [address] [facility] Internal Medicine 09/24/24 Katey Stanton, RELIEF SALESPERSON.RELIEF SALESPERSON [address] [place], [place] [id number] [facility] Internal Medicine 11/20/24 Cocoa Bean Roaster Helper Relationship Specialty Start Date End Date Liliam Alaniz MD [address] [place], [place] [address] PCP - General 11/08/02 Barbra Daniels, RELIEF SALESPERSON.PRECISION DEVICES INSPECTOR/TESTER [address] [place], [place] [address] [facility] Internal Medicine 09/24/24 Katey Stanton, RELIEF SALESPERSON.RELIEF SALESPERSON [address] [place], [place] [id number] [facility] Internal Medicine 11/20/24 Team Status: Active Member Role/Relationship Status Dates Dr. Liliam Alaniz MD Primary Care Provider Active Team Status: Inactive Member Role/Relationship Status Dates Dr. Liliam Alaniz MD Primary Care Provider Active Start: September 16, 2024 End: September 16, 2024 Dr. Liliam Alaniz MD Referring Provider Active Start: September 16, 2024 End: September 16, 2024 Jozef Carr [employer], [employer] WORKER-C Attending Provider Active S tart: September 16, 2024 End: September 16, 2024 Team Status: Inactive Member Role/Relationship Status Dates Dr. Liliam Alaniz MD Primary Care Provider Active Start: September 16, 2024 End: September 16, 2024 Dr. Audie Nieves DO Attending Provider Active Start : September 16, 2024 End: September 16, 2024 Dr. Audie Nieves DO Emergency Provider Active Start : September 16, 2024 End: September 16, 2024 Team Status: Inactive Member Role/Relationship Status Dates Dr. Liliam Alaniz MD Primary Care Provider Active Start: October 04, 2024 End: October 04, 2024 Dr. Liliam Alaniz MD Referring Provider Active Start: October 04, 2024 End: October 04, 2024 Dr. Sterling Thapa MD Attending Provider Active S tart: October 04, 2024 End: October 04, 2024 Team Status: Inactive Member Role/Relationship Status Dates Dr. Liliam Alaniz MD Primary Care Provider Active Start: January 10, 2025 End: January 10, 2025 Dr. Liliam Alaniz MD Referring Provider Active Start: January 10, 2025 End: January 10, 2025 Binta Dobson PA, PA Attending Provider Active Start: January 10, 2025 End: January 10, 2025 Team Status: Inactive Member Role/Relationship Status Dates Dr. Liliam Alaniz MD Primary Care Provider Active Start: January 13, 2025 End: January 13, 2025 Dr. Sterling Thapa MD Attending Provider Active S tart: January 13, 2025 End: January 13, 2025 Dr. Sterling Thapa MD Referring Provider Active S tart: January 13, 2025 End: January 13, 2025 Team Status: Active Member Role/Relationship Status Dates Dr. Liliam Alaniz MD Primary Care Provider Active Start: January 13, 2025 Dr. Sterling Thapa MD Attending Provider Active S tart: January 13, 2025 Dr. Sterling Thapa MD Referring Provider Active S tart: January 13, 2025 Dr. Sterling Thapa MD Other Provider Active Start : January 13, 2025 Team Status: Active Member Role/Relationship Status Dates Dr. Liliam Alaniz MD Primary Care Provider Active Start: January 13, 2025 Dr. Sterling Thapa MD Referring Provider Active S tart: January 13, 2025 Dr. Sterling Thapa MD Other Provider Active Start : January 13, 2025 Dr. Gage Zuñiga DO Attending Provider Active S tart: January 13, 2025 Team Status: Inactive Member Role/Relationship Status Dates Dr. Liliam Alaniz MD Primary Care Provider Active Start: October 04, 2024 End: October 04, 2024 Dr. Liliam Alaniz MD Referring Provider Active Start: October 04, 2024 End: October 04, 2024 Dr. Sterling Thapa MD Attending Provider Active S tart: October 04, 2024 End: October 04, 2024 Team Status: Inactive Member Role/Relationship Status Dates Dr. Liliam Alaniz MD Primary Care Provider Active Start: January 10, 2025 End: January 10, 2025 Dr. Liliam Alaniz MD Referring Provider Active Start: January 10, 2025 End: January 10, 2025 Binta Dobson PA, PA Attending Provider Active Start: January 10, 2025 End: January 10, 2025 Team Status: Inactive Member Role/Relationship Status Dates Dr. Liliam Alaniz MD Primary Care Provider Active Start: January 13, 2025 End: January 13, 2025 Dr. Sterling Thapa MD Attending Provider Active S tart: January 13, 2025 End: January 13, 2025 Dr. Sterling Thapa MD Referring Provider Active S tart: January 13, 2025 End: January 13, 2025 Team Status: Active Member Role/Relationship Status Dates Dr. Liliam Alaniz MD Primary Care Provider Active Start: January 13, 2025 Dr. Sterling Thapa MD Attending Provider Active S tart: January 13, 2025 Dr. Sterling Thapa MD Referring Provider Active S tart: January 13, 2025 Dr. Sterling Thapa MD Other Provider Active Start : January 13, 2025 Team Status: Active Member Role/Relationship Status Dates Dr. Liliam Alaniz MD Primary Care Provider Active Start: January 13, 2025 Dr. Sterling Thapa MD Referring Provider Active S tart: January 13, 2025 Dr. Sterling Thapa MD Other Provider Active Start : January 13, 2025 Dr. Gage Zuñiga DO Attending Provider Active S tart: January 13, 2025 Team Status: Inactive Member Role/Relationship Status Dates Dr. Liliam Alaniz MD Primary Care Provider Active Start: January 15, 2025 End: January 15, 2025 Dr. Liliam Alaniz MD Referring Provider Active Start: January 15, 2025 End: January 15, 2025 Dr. Sterling Thapa MD Attending Provider Active S tart: January 15, 2025 End: January 15, 2025 Team Status: Inactive Member Role/Relationship Status Dates Dr. Liliam Alaniz MD Primary Care Provider Active Start: January 20, 2025 End: January 20, 2025 Dr. Liliam Alaniz MD Referring Provider Active Start: January 20, 2025 End: January 20, 2025 Binta FLETCHER PA Attending Provider Active Start: January 20, 2025 End: January 20, 2025 Team Status: Inactive Member Role/Relationship Status Dates Dr. Liliam Alaniz MD Primary Care Provider Active Start: January 31, 2025 End: January 31, 2025 Dr. Liliam Alaniz MD Referring Provider Active Start: January 31, 2025 End: January 31, 2025 Jozef Carr [employer] WORKER, [employer] WORKER-C Attending Provider Active S tart: January 31, 2025 End: January 31, 2025 Team Status: Inactive Member Role/Relationship Status Dates Dr. Liliam Alaniz MD Primary Care Provider Active Start: January 10, 2025 End: January 10, 2025 Dr. Liliam Alaniz MD Referring Provider Active Start: January 10, 2025 End: January 10, 2025 Binta FLETCHER PA Attending Provider Active Start: January 10, 2025 End: January 10, 2025 Team Status: Inactive Member Role/Relationship Status Dates Dr. Liliam Alaniz MD Primary Care Provider Active Start: January 13, 2025 End: January 13, 2025 Dr. Sterling Thapa MD Attending Provider Active S tart: January 13, 2025 End: January 13, 2025 Dr. Sterling Thapa MD Referring Provider Active S tart: January 13, 2025 End: January 13, 2025 Team Status: Active Member Role/Relationship Status Dates Dr. Liliam Alaniz MD Primary Care Provider Active Start: January 13, 2025 Dr. Sterling Thapa MD Attending Provider Active S tart: January 13, 2025 Dr. Sterling Thapa MD Referring Provider Active S tart: January 13, 2025 Dr. Sterling Thapa MD Other Provider Active Start : January 13, 2025 Team Status: Active Member Role/Relationship Status Dates Dr. Liliam Alaniz MD Primary Care Provider Active Start: January 13, 2025 Dr. Sterling Thapa MD Referring Provider Active S tart: January 13, 2025 Dr. Sterling Thapa MD Other Provider Active Start : January 13, 2025 Dr. Gage Zuñiga DO Attending Provider Active S tart: January 13, 2025 Team Status: Inactive Member Role/Relationship Status Dates Dr. Liliam Alaniz MD Primary Care Provider Active Start: January 15, 2025 End: January 15, 2025 Dr. Liliam Alaniz MD Referring Provider Active Start: January 15, 2025 End: January 15, 2025 Dr. Sterling Thapa MD Attending Provider Active S tart: January 15, 2025 End: January 15, 2025 Team Status: Inactive Member Role/Relationship Status Dates Dr. Liliam Alaniz MD Primary Care Provider Active Start: January 20, 2025 End: January 20, 2025 Dr. Liliam Alaniz MD Referring Provider Active Start: January 20, 2025 End: January 20, 2025 Binta Dobson PA, PA Attending Provider Active Start: January 20, 2025 End: January 20, 2025 Team Status: Inactive Member Role/Relationship Status Dates Dr. Liliam Alaniz MD Primary Care Provider Active Start: January 31, 2025 End: January 31, 2025 Dr. Liliam Alaniz MD Referring Provider Active Start: January 31, 2025 End: January 31, 2025 Jozef Carr [employer] WORKER, [employer] M[employer]INE WORKER-C Attending Provider Active S tart: January 31, 2025 End: January 31, 2025 Team Status: Inactive Member Role/Relationship Status Dates Dr. Liliam Alaniz MD Primary Care Provider Active Start: February 07, 2025 End: February 07, 2025 Dr. Liliam Alaniz MD Referring Provider Active Start: February 07, 2025 End: February 07, 2025 Dr. Sterling Thapa MD Attending Provider Active S tart: February 07, 2025 End: February 07, 2025 Reason for Visit (unrecogniz ed section and content) Reason Comments Results Reason Onset Date Comments Results colonoscopy Opened In Error 11/08/2021 Reason Comments 11/02/2021 Colonoscopy Reason Comments question regarding thyroid ER follow up scheduled Appointment Reason Comments Hospital F/U Reason Comments Follow Up Thyroid Reason Onset Date Comments Refill Request 05/18/2022 Reason Comments COVID infection Reason Comments Patient Update Reason Comments Yearly Exam Reason Comments Discuss rcent labs Reason Comments Patient Question Reason Comments Sclerotherapy Tx Specialty Diagnoses / Procedures Referred By Contac t Referred To Contact Peripheral Vascular / VASCULAR SURGERY Diagnoses Varicose veins of bilateral lower extremities with pain SCLERO Procedures INJECTION SCLEROSANT MULTIPLE INCMPTNT VEINS SCLEROTHERAPY Tuyet Golden, DO [address] [facility] [address] [place] [address] Tuyet Golden, DO [address] [place] [address] Referral ID Status Reason Start Date Expiration Date Visits Re quested Visits Authorized [id number] Closed 11/11/2022 02/09/2023 1 1 Reason Onset Date Comments Refill Request 11/14/2022 Reason Onset Date Comments Refill Request 12/12/2022 Reason Comments F/U 6 months Labs prior Reason Onset Date Comments Refill Request 05/28/2024 Reason Comments Medicare Wellness Exam Reason Comments Covid Positive Reason Comments Covid Positive Tested today + for C ovid, after exposure on Sat, fever, achy, eyes watery, runny nose, slight cough, stomach ache, diarrhea, ear pain x yesterday Reason Onset Date Comments Refill Request 12/09/2024 Reason Comments 6 month f/up INFORMATION SOURCE (unrecogn ized section and content) DATE CREATED AUTHOR 12/27/2024 [facility] DATE CREATED AUTHOR AUTHOR'S ORGANIZ ATION 02/05/2025 [facility] FOR RECORDS PERTAINING TO PATIENTS WHO ARE OR HAVE BEEN ENROLLED IN A CHEMICAL DEPENDENCY/SUBSTANCEABUSE PROGRAM, SOME INFORMATION MAY BE OMITTED. This clinical summary was aggregated from multiple sources. Caution should be exercised in using it in the provision of clinical care. This summary normalizes information from multiple sources, and as a consequence, information in this document may materially change the coding, format and clinical context of patient data. In addition, data may be omitted in some cases. CLINICAL DECISIONS SHOULD BE BASED ON THE PRIMARY CLINICAL RECORDS. [employer] provides no warranty or guarantee of the accuracy or completeness of information in this document.
--- OUTSIDE RECORDS SUMMARY | 2025-02-07 17:18 | XMS RPT_ITS | CCD ---
Author Organization [facility] Care Team Providers Care Engine Installer Name Role Phone Dr. Liliam Alaniz Primary [...] Liliam Alaniz MD Primary Care Provider Stanton READING EFFICIENCY COURSE DIRECTOR.SUPERVISOR BURLING AND JOINING, Katey Unavailable Jeremiah READING EFFICIENCY COURSE DIRECTOR.LINE MANAGER, Barbra Unavailable Jeremiah READING EFFICIENCY COURSE DIRECTOR.LINE MANAGER, Barbra Suzanne Unavailable Dr. Liliam Alaniz MD Primary Care Provider Dr. Liliam Alaniz MD Referring Provider Jozef Johnson Attending Provider Dr. Audie Nieves DO Emergency Provider Jeremiah READING EFFICIENCY COURSE DIRECTOR.LINE MANAGER, Barbra Unavailable Hunt READING EFFICIENCY COURSE DIRECTOR.SUPERVISOR BURLING AND JOINING, Katey Unavailable Hunt READING EFFICIENCY COURSE DIRECTOR.SUPERVISOR BURLING AND JOINING, Katey Unavailable TALAMPAS, LILIAM D Referring Unavailable [...] Provider Dr. Gage Zuñiga DO Attending Provider [phone] Shady KNIGHT, Dr. Liliam Sevilla Primary Care Provider [phone] Shady KNIGHT, Dr. Liliam Sevilla Referring Provider Jozef Johnson Attending Provider Talampas, Liliam D Primary Care Unavailable Sterling [...] Talampas, Liliam D Primary Care Unavailable Alanis, Livingston Consulting Unavailable Yogesh Gage Attending Unavailable Alanis, Sterling Referring Unavailable Talampas, Liliam D Primary Care Unavailable Alanis, Sterling Attending Unavailable Alanis, Sterling Referring Unavailable Talampas, Liliam D Primary Care Unavailable Audie Nieves Attending Unavailable Talampas, Liliam D Primary Care Unavailable Alanis, Sterling Consulting Unavailable Alanis, Livingston Attending Unavailable Alanis, Sterling Referring Unavailable Shady KNIGHT, Dr. Liliam Sevilla Primary Care Provider Dr. Liliam Alaniz MD Referring Provider [phone] Alanis KNIGHT, Dr. Katz Attending Provider [phone] Allergies Allergy Classification Reported Allergen(s) Allergy Type Date of Onset Reaction(s) Facility (13 sources) Aspirin Drug Allergy 1 ONLY HAS ONE KIDNEY, TOLD TO AVOID [facility] Comment on above: PT ONLY HAS 1 KIDNEY (13 sources) Cortisone Drug Allergy 1 CHEST HOT & WEIRD [facility] (20 sources) Flecainide; Translations: [FLECAINIDE] Drug Allergy 1 Other: See Comments [facility] (14 sources) NSAIDS (Non-Steroidal Anti-Inflamma; Translations: [NSAIDS (Non-Steroidal Anti-Inflamma] Propensity to adverse reactions 1 ONLY HAS ONE KIDNEY, TOLD TO AVOID [facility] Comment on above: PT ONLY HAS 1 KIDNEY (20 sources) metroNIDAZOLE; Translations: [METRONIDAZOLE] Drug Allergy 0 GI Upset [facility] Work Phone: (1 source) Aspirin Drug Allergy 5 [facility] Repository (1 source) Cortisone Drug Allergy 5 [facility] (1 source) Flecainide Drug Allergy 5 [facility] Medications Current Medications Medication Drug [...] Start: 10-08-2020 take 2 tablets by mo [facility] every twenty-four hours Bismuth Subsalicylate (Pepto-Bismol) [...] Kit docusate sodium 50 mg / sennosides, prison 8.6 mg oral tablet (13 sources) Start: [...] left artificial knee joint polyethylene glycol 3350 44459 mg powder for oral solution (3 sources) [...] (6 sources) Patient encounter status; Translations: [Other alf (current) drug therapy] Episodic Other aftercare (10 sources) Drug therapy finding; Translations: [nursing home (current) use of anticoagulants] 04-13-2023 Episodic Other aftercare (7 sources) Long-term current use of anticoagulant; Translations: [motor vehicle or caravan salesperson (current) use of anticoagulants] 09-16-2024 Episodic Other [...] 04-04-2017 Chronic Other aftercare (1 source) Other alf (current) drug therapy; Translations: [Encounter for long-term [...] 01-13-2025 Anion gap [Moles/Vol] 11 mmol/L 5-15 [facility] BUN/creatinine ratioOrdered By: Sterling Thapa on 01-13-2025 Urea nitrogen/Creatinine [Mass ratio] 26.9 mg/mg High 10-20 [facility] Basic Metabolic Profile (BMP )on 01-13-2025 BUN/CRE 26.9 RATIO High -20 [facility] Comment on above: Performed By: #### L 500.2500 #### [facility] [address] [place], [address] Calcium [Mass/Vol] 9.5 mg/dL Normal 7.6-11.0 [facility] Comment on above: Performed By: #### L 500.2500 #### [facility] [address] [place], [address] Chloride [Moles/Vol] 104 mmol/L Normal 98-108 [facility] Comment on above: Performed By: #### L 500.2500 #### [facility] [address] [place], [address] CO2 [Moles/Vol] 23.5 mmol/L Normal 21.0-32.0 [facility] Comment on above: Performed By: #### L 500.2500 #### [facility] [address] [place], [address] Creatinine [Mass/Vol] 1.09 mg/dL Normal 0.70-1.20 [facility] Comment on above: Performed By: #### L 500.2500 #### [facility] [address] [place], [address] ECRCL 44.75 ml/min Low 50-250 [facility] Comment on above: Performed By: #### L 500.2500 #### [facility] [address] [place], [address] GAP 11 Normal 5-15 [facility] Comment on above: Performed By: #### L 500.2500 #### [facility] [address] [place], [address] GFR/1.73 sq M.predicted among non-blacks MDRD (S/P/Bld) [Vol rate/Area] 54 mL/min/{1.73_m2} Low >60 [facility] Comment on above: Result Comment: mL/m in/1.73m2 CKD-EPI Creatinine Equation (2020) Performed By: #### L 500.2500 #### [facility] [address] [place], [address] Glucose [Mass/Vol] 120 mg/dL High 70-99 [facility] Comment on above: Performed By: #### L 500.2500 #### [facility] [address] [place], [address] Potassium [Moles/Vol] 5.1 mmol/L Normal 3.3-5.1 [facility] Comment on above: Result Comment: Hemo lysis present, Results??could be affected. ?? Performed By: #### L 500.2500 #### [facility] [address] [place], [address] Sodium [Moles/Vol] 138 mmol/L Normal 133-145 [facility] Comment on above: Performed By: #### L 500.2500 #### [facility] [address] [place], [address] Urea nitrogen [Mass/Vol] 29 mg/dL High 4-19 [facility] Comment on above: Performed By: #### L 500.2500 #### [facility] [address] [place], [address] Carbon dioxide, total [Moles /volume] in Central venous bloodOrdered By: Sterling Alanis on 01-13-2025 CO2 [Moles/Vol] 23.5 mmol/L 21.0-32.0 [facility] Chloride assayOrdered By: Cy ril Alanis on 01-13-2025 Chloride [Moles/Vol] 104 mmol/L 98-108 [facility] Glomerular filtration rate ( GFR) estimation/1.73 sq m using serum, plasma, or whole bOrdered By: Sterling Thapa on 01-13-2025 GFR/1.73 sq M.predicted among non-blacks MDRD (S/P/Bld) [Vol rate/Area] 54 mL/min/{1.73_m2} Low >60 [facility] Comment on above: mL/min/1.73m2 CKD-EP I Creatinine Equation (2020) Potassium measurement (mass/ volume)Ordered By: Sterling Thapa on 01-13-2025 Potassium (Unsp spec) [Mass/Vol] 5.1 mmol/L 3.3-5.1 [facility] Comment on above: Hemolysis present, R esults could be affected. Procedure Reporton Procedure Report [facility] Medical Records Department [address] [place] [address] Procedure Report 01/13/25 1312 MR#: [id number] Acct: [id number] Name: WINSTON OHARA Rep #: [id number] : 1950 74 From: Gage Zuñiga DO PCP: Dr. Liliam Alaniz MD Status:REG [facility] Location: [facility] Procedures Pulmonary Pulmonary Procedures /Diagnostic Testin Con Sedation Non-invasive Procedural Procedure Information Date of Procedure: 01/13/25 Description of procedure: CONSCIOUS SEDATION REPORT DATE OF SERVICE: January 13, 2025 BRIEF HISTORY OF PRESENT ILLNESS: The patient is a 74-year-old female who presented to [facility] to undergo an elective outpatient cardioversion [...] DO; Dr. Liliam Alaniz MD Signed Normal [facility] Procedure Report [facility] Medical Records Department [address] [place] [address] Procedure Report 01/13/25 1212 MR#: [id number] Acct: [id number] Name: WINSTON OHARA Rep #: [id number] : 1950 74 From: Sterling Thapa MD PCP: Dr. Liliam Alaniz MD Status:REG [facility] [place] Location: [facility] Problems Associated Problem List Diagnoses (1) Paroxysmal atrial flutter: Non-invasive Procedural Procedure Information Date of Procedure: 01/13/25 Pre-Procedure Diagnosis: Atrial flutter Post-Procedure Diagnosis: Same Procedure Performed:: DC cardioversion rater associate: No Procedure Time Out: 12:01 Procedure Start [...] MD; Dr. Liliam Alaniz MD Signed Normal [facility] Serum creatinine measurement (mass/volume)Ordered By: Sterling Thapa on 01-13-2025 Creatinine [Mass/Vol] 1.09 mg/dL 0.70-1.20 [facility] Serum glucose measurement (m ass/volume)Ordered By: Sterling Thapa on 01-13-2025 Glucose [Mass/Vol] 120 mg/dL High 70-99 [facility] Serum or plasma calcium hay urement (mass/volume)Ordered By: Sterling Thapa on 01-13-2025 Calcium [Mass/Vol] 9.5 mg/dL 7.6-11.0 [facility] Serum or plasma urea nitroge n measurement (mass/volume)Ordered By: Sterling Thapa on 01-13-2025 Urea nitrogen [Mass/Vol] 29 mg/dL High 4-19 [facility] Sodium levelOrdered By: Delvin Thapa on 01-13-2025 Sodium [Moles/Vol] 138 mmol/L 133-145 [facility] Cardiology Visit Reporton Cardiology Visit Report [facility] [place] [address] OFFICE VISIT Date of Service: 01/10/25 MR#: [id number] Acct: [id number] Name: WINSTON OHARA Rep #: [id number] : 1950 Provider: CHANCE Peacock Age/Sex: 74/F Location: [facility] Status: Signed HPI HPI History of Present [...] Visit Reasons: a fib, see clinical notes Heading Matcher And Assembler Required: No Accompanied by: Self Is patient [...] for c (more content not included)... Normal [facility] CNOVon 12-26-2024 CNOV Office Visit (INTMWS ) WINSTON OHARA ([id number]) 1950 F NFR Date Time Provider Department 12/26/24 10:20 AM LILIAM ALANIZ INTMWS During your visit today, we recorded the following information about you: Pulse Respiration Blood pressure Weight 88/minute 14/minute 136/62 70.1 kg Liliam Alaniz MD 12/26/2024 11:24 AM Signed This note was created using BuzzTableriter. Subjective Winston Ohara is a 74 year [...] undergoing an ablation procedure recommended by her grant manager, Dr. Ling, and seeks advice on whether [...] Rate and (more content not included)... Normal [facility] 25(OH)D3 [facility] 2024 25-hydroxyvitamin D3 [Mass/Vol] 36.6 ng/mL Normal 31.0-80.0 [facility] Comment on above: Order Comment: Reanna kaplan Type: BLOOD SPECIMEN Ordering Facility: [facility] Address: [address] [place] [address] Result Comment: Clas sification of 25 [place] Vitamin D status: Deficiency/Insufficiency: < or = 30 ng/ml. Sufficiency/Optimal Levels: 31-80 ng/mL Toxicity: > 100 ng/mL. Test performed by chemiluminescent immunoassay. Performed By: #### 1 989-3 #### [facility] CLIA [id number] [address] [place] [address] [place] [address] [place] CBC panel Auto (Bld)on 12-23 Erythrocyte distribution width (RBC) [Ratio] 13.0 % Normal 11.5-15.0 [facility] Comment on above: Order Comment: Reanna kaplan Type: BLOOD SPECIMEN Ordering Facility: [facility] Address: [address] [place] [address] Performed By: #### 5 8410-2 #### [facility] CLIA [id number] [address] [place] [address] [place] Hematocrit (Bld) [Volume fraction] 40.6 % Normal 36.0-46.0 [facility] Comment on above: Order Comment: Speci men Type: BLOOD SPECIMEN Ordering Facility: [facility] Address: [address] [place] [address] Performed By: #### 5 8410-2 #### [facility] CLIA [id number] [address] [place] [address] [place] Hemoglobin (Bld) [Mass/Vol] 13.2 g/dL Normal 11.5-15.5 [facility] Comment on above: Order Comment: Speci men Type: BLOOD SPECIMEN Ordering Facility: [facility] Address: [address] [place] [address] Performed By: #### 5 8410-2 #### [facility] CLIA [id number] [address] [place] [address] [place] MCH (RBC) [Entitic mass] 30.5 pg Normal 26.0-34.0 [facility] Comment on above: Order Comment: Speci men Type: BLOOD SPECIMEN Ordering Facility: [facility] Address: [address] [place] [address] Performed By: #### 5 8410-2 #### [facility] CLIA [id number] [address] [place] [address] [place] MCHC (RBC) [Mass/Vol] 32.5 g/dL Normal 30.5-36.0 [facility] Comment on above: Order Comment: Speci men Type: BLOOD SPECIMEN Ordering Facility: [facility] Address: [address] [place] [address] Performed By: #### 5 8410-2 #### [facility] CLIA [id number] [address] [place] [address] [place] MCV (RBC) [Entitic vol] 93.8 fL Normal 80.0-100.0 [facility] Comment on above: Order Comment: Speci men Type: BLOOD SPECIMEN Ordering Facility: [facility] Address: [address] [place] [address] Performed By: #### 5 8410-2 #### [facility] CLIA [id number] [address] [place] [address] [place] Nucleated RBC (Bld) [#/Vol] 10*3/uL Normal <0.01 [facility] Comment on above: Order Comment: Speci men Type: BLOOD SPECIMEN Ordering Facility: [facility] Address: [address] [place] [address] Performed By: #### 5 8410-2 #### [facility] CLIA [id number] [address] [place] [address] [place] Platelet mean volume (Bld) [Entitic vol] 10.2 fL Normal 9.0-12.7 [facility] Comment on above: Order Comment: Speci men Type: BLOOD SPECIMEN Ordering Facility: [facility] Address: [address] [place] [address] Performed By: #### 5 8410-2 #### [facility] CLIA [id number] [address] [place] [address] [place] Platelets (Bld) [#/Vol] 194 10*3/uL Normal 150-400 [facility] Comment on above: Order Comment: Speci men Type: BLOOD SPECIMEN Ordering Facility: [facility] Address: [address] [place] [address] Performed By: #### 5 8410-2 #### [facility] CLIA [id number] [address] [place] [address] [place] RBC (Bld) [#/Vol] 4.33 10*6/uL Normal 3.90-5.20 [facility] Comment on above: Order Comment: Speci men Type: BLOOD SPECIMEN Ordering Facility: [facility] Address: [address] [place] [address] Performed By: #### 5 8410-2 #### [facility] CLIA [id number] [address] [place] [address] [place] WBC (Bld) [#/Vol] 5.45 10*3/uL Normal 3.70-11.00 [facility] Comment on above: Order Comment: Speci men Type: BLOOD SPECIMEN Ordering Facility: [facility] Address: [address] [place] [address] Performed By: #### 5 8410-2 #### [facility] CLIA [id number] [address] [place] [address] [place] Comprehensive metabolic 2000 panelon 12-23-2024 Albumin [Mass/Vol] 4.2 g/dL Normal 3.9-4.9 [facility] Comment on above: Order Comment: Speci men Type: BLOOD SPECIMEN Ordering Facility: [facility] Address: [address] [place] [address] Performed By: #### 2 4331-1, 63372-4 #### [facility] CLIA [id number] [address] [place] [address] [place] ALP [Catalytic activity/Vol] 136 U/L High 34-123 [facility] Comment on above: Order Comment: Speci men Type: BLOOD SPECIMEN Ordering Facility: [facility] Address: [address] [place] [address] Performed By: #### 2 4331-1, 56509-7 #### [facility] CLIA [id number] [address] [place] [address] [place] ALT [Catalytic activity/Vol] 12 U/L Normal 7-38 [facility] Comment on above: Order Comment: Speci men Type: BLOOD SPECIMEN Ordering Facility: [facility] Address: [address] [place] [address] Performed By: #### 2 4331-1, 20984-3 #### [facility] CLIA [id number] [address] [place] [address] [place] Anion gap [Moles/Vol] 9 mmol/L Normal 8-15 [facility] Comment on above: Order Comment: Speci men Type: BLOOD SPECIMEN Ordering Facility: [facility] Address: [address] [place] [address] Performed By: #### 2 4331-1, 74354-8 #### [facility] CLIA [id number] [address] [place] [address] [place] AST [Catalytic activity/Vol] 24 U/L Normal 13-35 [facility] Comment on above: Order Comment: Speci men Type: BLOOD SPECIMEN Ordering Facility: [facility] Address: [address] [place] [address] Performed By: #### 2 4331-, 40397-2 #### [facility] CLIA [id number] [address] [place] [address] [place] Bilirubin [Mass/Vol] 0.7 mg/dL Normal 0.2-1.3 [facility] Comment on above: Order Comment: Speci men Type: BLOOD SPECIMEN Ordering Facility: [facility] Address: [address] [place] [address] Performed By: #### 2 4331-1, 68207-6 #### [facility] CLIA [id number] [address] [place] [address] [place] Calcium [Mass/Vol] 9.8 mg/dL Normal 8.5-10.2 [facility] Comment on above: Order Comment: Speci men Type: BLOOD SPECIMEN Ordering Facility: [facility] Address: [address] [place], [place] [address] Performed By: #### 2 4331-1, #### [facility] CLIA [id number] [address] [place], [place] [address] [place] Chloride [Moles/Vol] 107 mmol/L Normal 98-107 [facility] Comment on above: Order Comment: Speci men Type: BLOOD SPECIMEN Ordering Facility: [facility] Address: [address] [place] [address] Performed By: #### 2 4331-1, #### [facility] CLIA [id number] [address] [place] [address] [place] CO2 [Moles/Vol] 25 mmol/L Normal 22-30 [facility] Comment on above: Order Comment: Speci men Type: BLOOD SPECIMEN Ordering Facility: [facility] Address: [address] [place] [address] Performed By: #### 2 4331-, #### [facility] CLIA [id number] [address] [place] [address] [place] Creatinine [Mass/Vol] 0.83 mg/dL Normal 0.58-0.96 [facility] Comment on above: Order Comment: Speci men Type: BLOOD SPECIMEN Ordering Facility: [facility] Address: [address] [place] [address] Performed By: #### 2 4331-1, #### [facility] CLIA [id number] [address] [place] [address] [place] Creatinine and Glomerular filtration rate.predicted panel (S/P/Bld) 75 mL/min/1.73m??? Normal >=60 [facility] Comment on above: Order Comment: Speci men Type: BLOOD SPECIMEN Ordering Facility: [facility] Address: [address] [place] [address] Result Comment: Melissa mated Glomerular Filtration Rate [...] GFR. Performed By: #### 2 433-, #### [facility] CLIA [id number] [address] [place] [address] [place] Glucose [Mass/Vol] 92 mg/dL Normal 74-99 [facility] Comment on above: Order Comment: Reanna kaplan Type: BLOOD SPECIMEN Ordering Facility: [facility] Address: [address] [place], [place] [address] Result Comment: The [place] [employer] Association (ADA) provides guidance for cutoff [...] Standards of Medical Care in Diabetes 2016, [place] [employer]. Diabetes Care. 2016.39(Suppl 1). Performed By: #### 2 4331-, #### [facility] CLIA [id number] [address] [place] [address] [place] Potassium [Moles/Vol] 4.8 mmol/L Normal 3.7-5.1 [facility] Comment on above: Order Comment: Reanna kaplan Type: BLOOD SPECIMEN Ordering Facility: [facility] Address: [address] [place] [address] Performed By: #### 2 433-, #### [facility] CLIA [id number] [address] [place] [address] [place] Protein [Mass/Vol] 6.9 g/dL Normal 6.3-8.0 [facility] Comment on above: Order Comment: Speci men Type: BLOOD SPECIMEN Ordering Facility: [facility] Address: [address] [place], [place] [address] Performed By: #### 2 4331-1, 30714-3 #### [facility] CLIA [id number] [address] [place], [place] [address] [place] Sodium [Moles/Vol] 141 mmol/L Normal 136-144 [facility] Comment on above: Order Comment: Speci men Type: BLOOD SPECIMEN Ordering Facility: [facility] Address: [address] [place], [place] [address] Performed By: #### 2 4331-1, 36672-3 #### [facility] CLIA [id number] [address] [place], [place] [address] [place] Urea nitrogen [Mass/Vol] 18 mg/dL Normal 7-21 [facility] Comment on above: Order Comment: Speci men Type: BLOOD SPECIMEN Ordering Facility: [facility] Address: [address] [place], [place] [address] Performed By: #### 2 4331-1, 90916-8 #### [facility] CLIA [id number] [address] [place] [address] [place] Lipid 1996 panelon 5 Cholesterol [Mass/Vol] 210 mg/dL High <200 [facility] Comment on above: Order Comment: Speci men Type: BLOOD SPECIMEN Ordering Facility: [facility] Address: [address] [place] [address] Result Comment: <200 mg/dL, Desirable 200-239 mg/dL, Borderline high >239 mg/dL, High Performed By: #### 2 4331-1, 93348-4 #### [facility] CLIA [id number] [address] [place] [address] [place] Cholesterol in HDL [Mass/Vol] 58 mg/dL Normal >39 [facility] Comment on above: Order Comment: Speci men Type: BLOOD SPECIMEN Ordering Facility: [facility] Address: [address] [place] [address] Result Comment: 40-5 9 mg/dL, Acceptable >59 mg/dL, High: Negative risk factor for coronary heart disease <40 mg/dL, Low: Positive risk factor for coronary heart disease Performed By: #### 2 4331-1, 79036-1 #### [facility] CLIA [id number] [address] [place] [address] [place] Cholesterol in LDL [Mass/Vol] 129 mg/dL High <100 [facility] Comment on above: Order Comment: Germaniakecia kaplan Type: BLOOD SPECIMEN Ordering Facility: [facility] Address: [address] [place] [address] Result Comment: <100 mg/dL, Optimal 100-129 mg/dL, Near optimal/above optimal 130-159 mg/dL, Borderline high 160-189 mg/dL, High >189 mg/dL, Very high Secondary prevention optimal LDL Cholesterol levels are recommended to be <70 mg/dL LDL cholesterol is calculated using the Simpson-NIH equation. Performed By: #### 2 4331-1, 85135-3 #### [facility] CLIA [id number] [address] [place] [address] [place] Cholesterol in LDL/Cholesterol in HDL [Mass ratio] 2.22 {ratio} Normal <2.54 [facility] Comment on above: Order Comment: Reanna kaplan Type: BLOOD SPECIMEN Ordering Facility: [facility] Address: [address] [place] [address] Result Comment: Refe rence: 1. National Cholesterol Education Program ATP III Guideline At-A-Glance Quick Desk Reference: National Heart, Lung, and Blood [place]. National Institutes of Health. 2001: NIH Publication No. 01-3305. 2. An International Atherosclerosis Society position paper: global recommendations for the management of dyslipidemia: executive summary, Atherosclerosis. 2014: 232(2):410-413. Performed By: #### 2 4331-1, 13987-4 #### [facility] CLIA [id number] [address] [place] [address] [place] Cholesterol in VLDL [Mass/Vol] 23 mg/dL Normal <30 [facility] Comment on above: Order Comment: Speci men Type: BLOOD SPECIMEN Ordering Facility: [facility] Address: [address] [place], [place] [address] Performed By: #### 2 4331-1, 75359-0 #### [facility] CLIA [id number] [address] [place], [place] [id number] [place] Cholesterol non HDL [Mass/Vol] 152 mg/dL High <130 [facility] Comment on above: Order Comment: Speci men Type: BLOOD SPECIMEN Ordering Facility: [facility] Address: [address] [place] [address] Result Comment: <130 mg/dL, Optimal 130-159 mg/dL, Near optimal/above optimal 160-189 mg/dL, Borderline high 190-219 mg/dL, High >219 mg/dL, Very high Secondary prevention optimal non HDL Cholesterol levels are recommended to be <100 mg/dL Performed By: #### 2 4331-1, #### [facility] CLIA [id number] [address] [place] [address] [place] Cholesterol.total/Galina sterol in HDL [Mass ratio] 3.62 {ratio} Normal <5.10 [facility] Comment on above: Order Comment: Speci men Type: BLOOD SPECIMEN Ordering Facility: [facility] Address: [address] [place] [address] Performed By: #### 2 4331-1, 81258-2 #### [facility] CLIA [id number] [address] [place], [place] [address] [place] FASTING TIME 12 hrs Normal [facility] Comment on above: Order Comment: Speci men Type: BLOOD SPECIMEN Ordering Facility: [facility] Address: [address] [place], [place] [address] Performed By: #### 2 4331-1, 35637-4 #### [facility] CLIA [id number] [address] [place] [address] [place] Triglyceride [Mass/Vol] 132 mg/dL Normal <150 [facility] Comment on above: Order Comment: Speci men Type: BLOOD SPECIMEN Ordering Facility: [facility] Address: [address] [place] [address] Result Comment: <150 mg/dL, Normal 150-199 mg/dL, Borderline high 200-499 mg/dL, High >499 mg/dL, Very high Performed By: #### 2 4331-1, 74635-0 #### [facility] CLIA [id number] [address] [place] [address] [place] Cardiology Visit Reporton Cardiology Visit Report [facility] [address] [place] [address]. [address] [place] [address] OFFICE VISIT Date of Service: 10/04/24 MR#: [id number] Acct: [id number] Name: WINSTON OHARA Rep #: [id number] : 1950 Provider: Dr. Sterling Thapa MD Age/Sex: 74/F Location: [facility] Status: Signed HPI HPI History of Present [...] Monitor Intake Visit Reasons: 6 M FU Heading Matcher And Assembler Required: No Accompanied by: Self Is patient [...] or Nos (more content not included)... Normal [facility] [place] [place] * * *Final Report* * * DATE OF EXAM: Sep 23 2024 1:31PM SHANNANW 0582 - [place] SCREENING W BRITTANEY / PROCEDURE REASON: Encounter for screening mammogram for breast cancer * * * * Physician Interpretation * * * * RESULT: [facility] [address] [place] [address] #[id number] - [place] SCREENING W BRITTANEY HISTORY: 74 [...] Aura Gu M.D. Electronically signed on: 09/24/2024 Kennel Aide: MARIA TERESA Transcribe Date/Time: Sep 23 2024 1:18P Dictated by: AURA GU MD This examination was interpreted and the report reviewed and electronically signed by: AURA UG MD on Sep 24 2024 8:52AM EST [id number] Normal [facility] 12 Lead EKGon 09-16-2024 12 Lead EKG [facility] Cardi[facility] Services [address] [place] [address] 12 Lead EKG 09/16/24 1558 MR#: [id number] Acct: [id number] Name: WINSTON OHARA Rep #: [id number] : 1950 74 From: Sterling Thapa MD [...] Abnormal ECG Confirmed by STERLING THAPA MD ([id number]), copy editor KAEL MENDEZ ([id number]) on 09/17/2024 8:17:24 AM Referred By: Confirmed By: STERLING THAPA MD 09/17/24816 Date Sterling Thapa MD CC: Dr. Liliam Alaniz MD; Dr. Audie Nieves DO Signed Normal [facility] 12 Lead EKG [facility] Cardi[facility] Services [address] [place] [address] 12 Lead EKG 09/16/24 1357 MR#: [id number] Acct: [id number] Name: WINSTON OHARAE Rep #: [id number] : 1950 74 From: Sterling Thapa MD [...] Abnormal ECG Confirmed by STERLING THAPA MD ([id number]), copy editor KAEL MENDEZ ([id number]) on 09/17/2024 8:17:10 AM Referred By: MANSOOR/CG Confirmed By: STERLING THAPA MD 09/17/24 0817 Date Sterling Thapa MD CC: Dr. Liliam Alaniz MD; Dr. Audie Nieves DO Signed Normal [facility] 12 Lead EKG performed by [facility] on 09-16-2024 12 Lead EKG performed by [facility] [address] [place] [address] 12 Lead EKG performed by [facility] 09/16/24 1315 MR#: [id number] Acct: [id number] Name: WINSTON OHARA Rep #: [id number] : 1950 74 From: Jozef Carr NP CARRIER OPERATOR-C Attending Dr: Jozef Carr CARRIER OPERATOR-C Status: DEP AMB Ordering Dr: Jozef Carr CARRIER OPERATOR CARRIER OPERATOR-C Date: 09/16/24 Location: [facility] Sex: F C Admitted: BMS/12 Lead EKG performed by [facility] ECG Report Interpretation ---Atrial flutter-fibrillation -ST depression + Nonspecific T-abnormality -Nondiagnostic -possible digitalis effect, -consider subendocardial injury/ischemia. ABNORMAL Electronically signed on 09/19/2024 at 07:35 by Sterling Thapa [employer] Version [id number] 09/19/24 0740 Date Jozef Carr NP CARRIER OPERATOR-C CC: Dr. Liliam Alaniz MD Date Dictated: 09/16/241314 Date Transcribed: 09/16/241314 Kennel Aide: CBR Signed Normal [facility] Absolute lymphocyte countOrd ered By: ED PROVIDER on 09-16-2024 Lymphocytes Auto (Unsp spec) [#/Vol] 1.19 10*3/uL 0.83-4.51 [facility] Absolute neutrophil countOrd ered By: ED PROVIDER on 09-16-2024 Neutrophils (Bld) [#/Vol] 7.2 10*3/uL 2.0-7.7 [facility] Anion gap in Serum or Plasma Ordered By: Audie Nieves on 09-16-2024 Anion gap [Moles/Vol] 12 mmol/L 5-15 [facility] Automated lymphocyte count a s percentage of total leukocytesOrdered By: ED PROVIDER on 09-16-2024 Lymphocytes/100 WBC Auto (Unsp spec) 12.8 % Low 19-41 [facility] BUN/creatinine ratioOrdered By: Audie Nieves on 09-16-2024 Urea nitrogen/Creatinine [Mass ratio] 15.5 mg/mg 10- [facility] Basic Metabolic Profile (BMP )on 09-16-2024 BUN/CRE 15.5 RATIO Normal - [facility] Comment on above: Performed By: #### L 100.0100, L500.2500, L501.4021, L300.3900 #### [facility] [address] [place], [address] Calcium [Mass/Vol] 10.5 mg/dL Normal 7.6-11.0 [facility] Comment on above: Performed By: #### L 100.0100, L500.2500, L501.4021, L300.3900 #### [facility] [address] [place], [address] Chloride [Moles/Vol] 104 mmol/L Normal 98-108 [facility] Comment on above: Performed By: #### L 100.0100, L500.2500, L501.4021, L300.3900 #### [facility] [address] [place], [address] CO2 [Moles/Vol] 26.3 mmol/L Normal 21.0-32.0 [facility] Comment on above: Performed By: #### L 100.0100, L500.2500, L501.4021, L300.3900 #### [facility] [address] [place], [address] Creatinine [Mass/Vol] 0.86 mg/dL Normal 0.70-1.20 [facility] Comment on above: Performed By: #### L 100.0100, L500.2500, L501.4021, L300.3900 #### [facility] [address] [place], [address] ECRCL 56.04 ml/min Normal 50-250 [facility] Comment on above: Performed By: #### L 100.0100, L500.2500, L501.4021, L300.3900 #### [facility] [address] [place], [address] GAP 12 Normal 5-15 [facility] Comment on above: Performed By: #### L 100.0100, L500.2500, L501.4021, L300.3900 #### [facility] [address] [place], [address] GFR/1.73 sq M.predicted among non-blacks MDRD (S/P/Bld) [Vol rate/Area] 72 mL/min/{1.73_m2} Normal >60 [facility] Comment on above: Result Comment: mL/m in/1.73m2 CKD-EPI Creatinine Equation (2020) Performed By: #### L 100.0100, L500.2500, L501.4021, L300.3900 #### [facility] [address] [place], [address] Glucose [Mass/Vol] 106 mg/dL High 70-99 [facility] Comment on above: Performed By: #### L 100.0100, L500.2500, L501.4021, L300.3900 #### [facility] [address] [place], [address] Potassium [Moles/Vol] 4.1 mmol/L Normal 3.3-5.1 [facility] Comment on above: Performed By: #### L 100.0100, L500.2500, L501.4021, L300.3900 #### [facility] [address] [place], [address] Sodium [Moles/Vol] 142 mmol/L Normal 133-145 [facility] Comment on above: Performed By: #### L 100.0100, L500.2500, L501.4021, L300.3900 #### [facility] [address] [place], [address] Urea nitrogen [Mass/Vol] 13 mg/dL Normal 4-19 [facility] Comment on above: Performed By: #### L 100.0100, L500.2500, L501.4021, L300.3900 #### [facility] [address] [place], [address] Basophil percentageOrdered B y: ED PROVIDER on 09-16-2024 Basophils/100 WBC (Bld) 0.6 % 0-1 [facility] CBC W/Diff, Automatedon 08-31 Absolute Lymph 1.19 X10 3/uL Normal 0.83-4.51 [facility] Comment on above: Performed By: #### L 100.0100, L500.2500, L501.4021, L300.3900 #### [facility] [address] [place], [address] Absolute Neut 7.2 X10 3/uL Normal 2.0-7.7 [facility] Comment on above: Performed By: #### L 100.0100, L500.2500, L501.4021, L300.3900 #### [facility] [address] [place], [address] Basophils/100 WBC (Bld) 0.6 % Normal 0-1 [facility] Comment on above: Performed By: #### L 100.0100, L500.2500, L501.4021, L300.3900 #### [facility] [address] [place], [address] Eosinophils/100 WBC (Bld) 1.6 % Normal 0-5 [facility] Comment on above: Performed By: #### L 100.0100, L500.2500, L501.4021, L300.3900 #### [facility] [address] [place], [address] Erythrocyte distribution width (RBC) [Ratio] 12.9 % Normal 11.6-14.6 [facility] Comment on above: Performed By: #### L 100.0100, L500.2500, L501.4021, L300.3900 #### [facility] [address] [place], [address] Hematocrit (Bld) [Volume fraction] 46.3 % Normal 37-47 [facility] Comment on above: Performed By: #### L 100.0100, L500.2500, L501.4021, L300.3900 #### [facility] [address] [place], [address] Hemoglobin (Bld) [Mass/Vol] 15.3 g/dL High 12.0-15.0 [facility] Comment on above: Performed By: #### L 100.0100, L500.2500, L501.4021, L300.3900 #### [facility] [address] [place], [address] IG% 0.400 Normal 0.0-0.9 [facility] Comment on above: Result Comment: IG% - Immature Granulocytes (promyelocytes, myelocytes and metamyelocytes) > 1% indicates that a LEFT SHIFT is Present. Performed By: #### L 100.0100, L500.2500, L501.4021, L300.3900 #### [facility] [address] [place], [address] Lymphocytes/100 WBC (Bld) 12.8 % Low 19-41 [facility] Comment on above: Performed By: #### L 100.0100, L500.2500, L501.4021, L300.3900 #### [facility] [address] [place], [address] MCH (RBC) [Entitic mass] 30.2 pg Normal 27.0-32.0 [facility] Comment on above: Performed By: #### L 100.0100, L500.2500, L501.4021, L300.3900 #### [facility] [address] [place], [address] MCHC (RBC) [Mass/Vol] 33.0 g/dL Normal 32-36 [facility] Comment on above: Performed By: #### L 100.0100, L500.2500, L501.4021, L300.3900 #### [facility] [address] [place], [address] MCV (RBC) [Entitic vol] 91.3 fL Normal 81-99 [facility] Comment on above: Performed By: #### L 100.0100, L500.2500, L501.4021, L300.3900 #### [facility] [address] [place], [address] Monocytes/100 WBC (Bld) 7.0 % Normal 0-10 [facility] Comment on above: Performed By: #### L 100.0100, L500.2500, L501.4021, L300.3900 #### [facility] [address] [place], [address] Neutrophils/100 WBC (Bld) 77.6 % High 47-70 [facility] Comment on above: Performed By: #### L 100.0100, L500.2500, L501.4021, L300.3900 #### [facility] [address] [place], [address] Nucleated RBC (Bld) [#/Vol] 0 10*3/uL Normal 0-5 [facility] Comment on above: Performed By: #### L 100.0100, L500.2500, L501.4021, L300.3900 #### [facility] [address] [place], [address] Platelet mean volume (Bld) [Entitic vol] 9.5 fL Normal 6.2-12.0 [facility] Comment on above: Performed By: #### L 100.0100, L500.2500, L501.4021, L300.3900 #### [facility] [address] [place], [address] Platelets (Bld) [#/Vol] 297 10*3/uL Normal 150-450 [facility] Comment on above: Performed By: #### L 100.0100, L500.2500, L501.4021, L300.3900 #### [facility] [address] [place], [address] RBC (Bld) [#/Vol] 5.07 10*6/uL Normal 4.2-5.4 [facility] Comment on above: Performed By: #### L 100.0100, L500.2500, L501.4021, L300.3900 #### [facility] [address] [place], [address] RDW SD 42.9 fl Normal 35.1-43.9 [facility] Comment on above: Performed By: #### L 100.0100, L500.2500, L501.4021, L300.3900 #### [facility] [address] [place], [address] WBC (Bld) [#/Vol] 9.3 10*3/uL Normal 4.4-11.0 [facility] Comment on above: Performed By: #### L 100.0100, L500.2500, L501.4021, L300.3900 #### [facility] [address] [place], [address] Carbon dioxide, total [Moles /volume] in Central venous bloodOrdered By: Audie Nieves on 09-16-2024 CO2 [Moles/Vol] 26.3 mmol/L 21.0-32.0 [facility] Chest 1 View (Portable)on Chest 1 View (Portable) [facility] Imaging Services [address] [place] [address] Chest 1 View (Portable) MR#: [id number] Acct: [id number] Name: WINSTON OHARA Rep #: [id number] : 1950 F 74 From: Jozef Sevilla PCP: Dr. Liliam Alaniz MD Status: REG ER Study: Chest 1 View (Portable) Date of Exam: 09/16/24 Exam# [id number] Ordering Dr: Audie Nieves DO PROCEDURE: CHEST 1 VIEW (PORTABLE) 09/16/2024 REASON FOR EXAM: CHEST PAIN TECHNIQUE: Frontal view of the chest. COMPARISON: 06 February 2021 FINDINGS: The heart size is normal. The lungs are clear. Demineralization of the bones. Stable examination when compared to prior. RAD/Chest 1 View (Portable) IMPRESSION: No measurable change. Reading Location: [id number] CC: Dr. Liliam Alaniz MD; Dr. Audie Nieves DO Kennel Aide: Signed Normal [facility] Chloride assayOrdered By: Nick Nieves on 09-16-2024 Chloride [Moles/Vol] 104 mmol/L 98-108 [facility] Emergency Department Summary on 09-16-2024 Emergency Department Summary [facility] Medical Records Department [address] [place] [address] Emergency Department Summary 09/16/24 MR#: [id number] Acct: [id number] Name: WINSTON OHARA Rep #: [id number] : 1950 74 From: Audie Hoskins PCP: Dr. Liliam Alaniz MD Status:DEP ER Location: ED [facility] History of Present Illness Chief Complaint: Palpitations [...] [2] Res (more content not included)... Normal [facility] Eosinophil percentageOrdered By: ED PROVIDER on 09-16-2024 Eosinophils/100 WBC (Bld) 1.6 % 0-5 [facility] Erythrocyte distribution wid th ratioOrdered By: ED PROVIDER on 09-16-2024 Erythrocyte distribution width (RBC) [Ratio] 12.9 % 11.6-14.6 [facility] Erythrocyte distribution wid th standard deviationOrdered By: ED PROVIDER on 09-16-2024 Erythrocyte distribution width (RBC) [Entitic vol] 42.9 fL 35.1-43.9 [facility] Erythrocyte distribution width (RBC) [Ratio] 42.9 fl 35.1-43.9 [facility] Estimation of creatinine carter aranceOrdered By: Audie Nieves on 09-16-2024 Estimated Creatinine Clearance Calc 56.04 ml/min 50-250 [facility] GFR/1.73 sq M.predicted ahsan g non-blacks MDRD (S/P/Bld) [Vol rate/Area]Ordered By: Audie Nieves on 09-16-2024 Estimated GFR (MDRD) Non-Af Amer 72 >60 [facility] Comment on above: mL/min/1.73m2 CKD-EP I Creatinine Equation (2020) Glomerular filtration rate ( GFR) estimation/1.73 sq m using serum, plasma, or whole bOrdered By: Audie Nieves on 09-16-2024 GFR/1.73 sq M.predicted among non-blacks MDRD (S/P/Bld) [Vol rate/Area] 72 mL/min/{1.73_m2} >60 [facility] Comment on above: mL/min/1.73m2 CKD-EP I Creatinine Equation (2020) Hematocrit Auto (Bld) [Volum e fraction]Ordered By: ED PROVIDER on 09-16-2024 Hematocrit (Bld) [Volume fraction] 46.3 % 37-47 [facility] Hemoglobin measurementOrdere d By: ED PROVIDER on 09-16-2024 Hemoglobin (Bld) [Mass/Vol] 15.3 g/dL High 12.0-15.0 [facility] Immature granulocytes/100 WB C Auto (Bld)Ordered By: ED PROVIDER on 09-16-2024 Immature granulocytes/100 WBC (Bld) 0.400 % 0.0-0.9 [facility] Comment on above: IG% - Immature Granu locytes (promyelocytes, myelocytes and metamyelocytes) > 1% indicates that a LEFT SHIFT is Present. International normalized rat io (INR) calculationOrdered By: Audie Nieves on 09-16-2024 INR Coag (Bld) [Relative time] 1.5 {INR} [facility] L499.0042on 09-16-2024 Trop T High Sen Normal <=14 [facility] Comment on above: Result Comment: PT D EP FROM ED Performed By: #### L 499.0042 #### [facility] [address] [place], [address] L499.0043on 09-16-2024 Trop T High Sen Normal <=14 [facility] Comment on above: Result Comment: Canc elled via OM: Order cancelled - Patient discharged Performed By: #### L 499.0043 #### [facility] [address] [place], [address] L501.4021on 09-16-2024 Trop T High Sen 13 ng/L Normal <=14 [facility] Comment on above: Performed By: #### L 100.0100, L500.2500, L501.4021, L300.3900 #### [facility] [address] [place], [address] Lymphocytes Auto (Unsp spec) [#/Vol]Ordered By: ED PROVIDER on 09-16-2024 Lymphocytes (Bld) [#/Vol] 1.19 10*3/uL 0.83-4.51 [facility] Lymphocytes/100 WBC Auto (Un sp spec)Ordered By: ED PROVIDER on 09-16-2024 Lymphocytes/100 WBC (Bld) 12.8 % Low 19-41 [facility] MCV (mean corpuscular volume ) determinationOrdered By: ED PROVIDER on 09-16-2024 MCV (RBC) [Entitic vol] 91.3 fL 81-99 [facility] Mean corpuscular hemoglobin (MCH) determinationOrdered By: ED PROVIDER on 09-16-2024 MCH (RBC) [Entitic mass] 30.2 pg 27.0-32.0 [facility] Mean corpuscular hemoglobin concentration (MCHC) determinationOrdered By: ED PROVIDER on 09-16-2024 MCHC (RBC) [Mass/Vol] 33.0 g/dL 32-36 [facility] Mean platelet volume determi nationOrdered By: ED PROVIDER on 09-16-2024 Platelet mean volume (Bld) [Entitic vol] 9.5 fL 6.2-12.0 [facility] Monocyte percentageOrdered B y: ED PROVIDER on 09-16-2024 Monocytes/100 WBC (Bld) 7.0 % 0-10 [facility] Neutrophil percentageOrdered By: ED PROVIDER on 09-16-2024 Neutrophils/100 WBC (Bld) 77.6 % High 47-70 [facility] No Panel InformationOrdered By: Audie Nieves on 09-16-2024 Troponin T High Sensitivity 13 ng/L <14 [facility] Nucleated red blood cell per centageOrdered By: ED PROVIDER on 09-16-2024 Nucleated RBC/100 WBC (Bld) [Ratio] 0 % 0-5 [facility] Platelet countOrdered By: ED PROVIDER on 09-16-2024 Platelets (Bld) [#/Vol] 297 10*3/uL 150-450 [facility] Potassium (Unsp spec) [Mass/ Vol]Ordered By: Audie Nieves on 09-16-2024 Potassium [Moles/Vol] 4.1 mmol/L 3.3-5.1 [facility] Potassium measurement (mass/ volume)Ordered By: Audie Nieves on 09-16-2024 Potassium (Unsp spec) [Mass/Vol] 4.1 mmol/L 3.3-5.1 [facility] Prothrombin Time w/INRon INR Coag (PPP) [Relative time] 1.5 {INR} Normal [facility] Comment on above: Performed By: #### L 100.0100, L500.2500, L501.4021, L300.3900 #### [facility] [address] [place], [address] PT Coag (PPP) [Time] 18.8 s High 11.7-14.9 [facility] Comment on above: Performed By: #### L 100.0100, L500.2500, L501.4021, L300.3900 #### [facility] [address] [place], [address] Prothrombin timeOrdered By: Audie Nieves on 09-16-2024 PT Coag (PPP) [Time] 18.8 s High 11.7-14.9 [facility] RBC Auto (Bld) [#/Vol]Ordere d By: ED PROVIDER on 09-16-2024 RBC (Bld) [#/Vol] 5.07 10*6/uL 4.2-5.4 [facility] Serum creatinine measurement (mass/volume)Ordered By: Audie Nieves on 09-16-2024 Creatinine [Mass/Vol] 0.86 mg/dL 0.70-1.20 [facility] Serum glucose measurement (m ass/volume)Ordered By: Audie Nieves on 09-16-2024 Glucose [Mass/Vol] 106 mg/dL High 70-99 [facility] Serum or plasma calcium hay urement (mass/volume)Ordered By: Audie Nieves on 09-16-2024 Calcium [Mass/Vol] 10.5 mg/dL 7.6-11.0 [facility] Serum or plasma urea nitroge n measurement (mass/volume)Ordered By: Audie Nieves on 09-16-2024 Urea nitrogen [Mass/Vol] 13 mg/dL 4-19 [facility] Sodium levelOrdered By: Audie Nieves on 09-16-2024 Sodium [Moles/Vol] 142 mmol/L 133-145 [facility] White blood cell (WBC) count Ordered By: ED PROVIDER on 09-16-2024 WBC (Bld) [#/Vol] 9.3 10*3/uL 4.4-11.0 [facility] CNOVon 08-29-2024 CNOV Office Visit (UCWSTR ) WINSTON OHARA ([id number]) 1950 F NFR Date Time Provider Department 08/29/24 7:30 PM REJI THOMASON [facility] During your visit today, we recorded the following information about you: Temperature Pulse Respiration Blood pressure 101.6 degrees 63/minute 20/minute 141/71 Reji Thomason APRN.LINE MANAGER 08/29/2024 8:09 PM Signed Molnupiravir Eligibility and Patient Discussion [facility] Formulary Restriction Criteria: Adult outpatients 18 years [...] to proceeding (more content not included)... Normal [facility] CNPNon 08-29-2024 CNPN Telephone (INTMWS) WINSTON OHARA ([id number]) 1950 F NFR Date Time Provider Department [...] appt as she did not see the [facility]. Also she states she cannot do VV. She and her will come in to be seen in [facility] this evening. Allergies As [...] Encounter Status:Closed by CHICA SAPP on 08/29/24 [facility] 06-14-2024 CNOV Office Visit (INTMWS ) WINSTON OHARA ([id number]) 1950 F NFR Date Time Provider Department 06/14/24 2:20 PM LILIAM ALANIZ INTMWS During your visit today, we recorded the following information about you: Pulse Respiration Blood pressure Weight 64/minute 12/minute 134/68 69 kg Height 1.626 m Liliam Alaniz MD 06/14/2024 4:09 PM Signed This note was created using BuzzTableriter. Subjective Winston Ohara is a 74 year [...] 2 Spra (more content not included)... Normal [facility] 25(OH)D3 [facility] 25-hydroxyvitamin D3 [Mass/Vol] 27.4 ng/mL Low 31.0-80.0 [facility] Comment on above: Order Comment: Speci eusebio Type: BLOOD SPECIMEN Ordering Facility: [facility] Address: [address] [place] [address] Result Comment: Clas sification of 25 [place] Vitamin D status: Deficiency/Insufficiency: < or = 30 ng/ml. Sufficiency/Optimal Levels: 31-80 ng/mL Toxicity: > 100 ng/mL. Test performed by chemiluminescent immunoassay. Performed By: #### 1 989-3 #### [facility] CLIA [id number] [address] [place] [address] [place] CBC panel Auto (Bld)on 06-10 Erythrocyte distribution width (RBC) [Ratio] 13.2 % Normal 11.5-15.0 [facility] Comment on above: Order Comment: Reanna kaplan Type: BLOOD SPECIMEN Ordering Facility: [facility] Address: [address] [place] [address] Performed By: #### 2 4331-1, 12386-9 #### [facility] CLIA [id number] [address] [place] [address] [place] Hematocrit (Bld) [Volume fraction] 42.8 % Normal 36.0-46.0 [facility] Comment on above: Order Comment: Reanna kaplan Type: BLOOD SPECIMEN Ordering Facility: [facility] Address: [address] [place] [address] Performed By: #### 2 4331-1, 94334-6 #### [facility] CLIA [id number] [address] [place], [place] [address] [place] Hemoglobin (Bld) [Mass/Vol] 13.5 g/dL Normal 11.5-15.5 [facility] Comment on above: Order Comment: Speci men Type: BLOOD SPECIMEN Ordering Facility: [facility] Address: [address] [place] [address] Performed By: #### 2 4331-1, 12205-7 #### [facility] CLIA [id number] [address] [place] [address] [place] MCH (RBC) [Entitic mass] 30.3 pg Normal 26.0-34.0 [facility] Comment on above: Order Comment: Speci men Type: BLOOD SPECIMEN Ordering Facility: [facility] Address: [address] [place] [address] Performed By: #### 2 4331-1, 74833-1 #### [facility] CLIA [id number] [address] [place] [address] [place] MCHC (RBC) [Mass/Vol] 31.5 g/dL Normal 30.5-36.0 [facility] Comment on above: Order Comment: Speci men Type: BLOOD SPECIMEN Ordering Facility: [facility] Address: [address] [place] [address] Performed By: #### 2 4331-1, 86162-2 #### [facility] CLIA [id number] [address] [place] [address] [place] MCV (RBC) [Entitic vol] 96.0 fL Normal 80.0-100.0 [facility] Comment on above: Order Comment: Speci men Type: BLOOD SPECIMEN Ordering Facility: [facility] Address: [address] [place] [address] Performed By: #### 2 4331-1, 62455-9 #### [facility] CLIA [id number] [address] [place] [address] [place] Nucleated RBC (Bld) [#/Vol] 10*3/uL Normal <0.01 [facility] Comment on above: Order Comment: Speci men Type: BLOOD SPECIMEN Ordering Facility: [facility] Address: [address] [place] [address] Performed By: #### 2 4331-1, 97985-3 #### [facility] CLIA [id number] [address] [place] [address] [place] Platelet mean volume (Bld) [Entitic vol] 10.2 fL Normal 9.0-12.7 [facility] Comment on above: Order Comment: Speci men Type: BLOOD SPECIMEN Ordering Facility: [facility] Address: [address] [place] [address] Performed By: #### 2 4331-1, 88358-4 #### [facility] CLIA [id number] [address] [place] [address] [place] Platelets (Bld) [#/Vol] 203 10*3/uL Normal 150-400 [facility] Comment on above: Order Comment: Speci men Type: BLOOD SPECIMEN Ordering Facility: [facility] Address: [address] [place] [address] Performed By: #### 2 4331-1, 66508-2 #### [facility] CLIA [id number] [address] [place] [address] [place] RBC (Bld) [#/Vol] 4.46 10*6/uL Normal 3.90-5.20 [facility] Comment on above: Order Comment: Speci men Type: BLOOD SPECIMEN Ordering Facility: [facility] Address: [address] [place] [address] Performed By: #### 2 4331-1, 29844-2 #### [facility] CLIA [id number] [address] [place] [address] [place] WBC (Bld) [#/Vol] 5.73 10*3/uL Normal 3.70-11.00 [facility] Comment on above: Order Comment: Speci men Type: BLOOD SPECIMEN Ordering Facility: [facility] Address: [address] [place] [address] Performed By: #### 2 4331-1, #### [facility] CLIA [id number] [address] [place] [address] [place] Comprehensive metabolic 2000 panelon 06-10-2024 Albumin [Mass/Vol] 4.3 g/dL Normal 3.9-4.9 [facility] Comment on above: Order Comment: Speci men Type: BLOOD SPECIMEN Ordering Facility: [facility] Address: [address] [place] [address] Performed By: #### 2 4331-1, #### [facility] CLIA [id number] [address] [place] [address] [place] ALP [Catalytic activity/Vol] 131 U/L High 34-123 [facility] Comment on above: Order Comment: Speci men Type: BLOOD SPECIMEN Ordering Facility: [facility] Address: [address] [place] [address] Performed By: #### 2 4331-1, #### [facility] CLIA [id number] [address] [place] [address] [place] ALT [Catalytic activity/Vol] 18 U/L Normal 7-38 [facility] Comment on above: Order Comment: Speci men Type: BLOOD SPECIMEN Ordering Facility: [facility] Address: [address] [place] [address] Performed By: #### 2 4331-1, #### [facility] CLIA [id number] [address] [place] [address] [place] Anion gap [Moles/Vol] 12 mmol/L Normal 8-15 [facility] Comment on above: Order Comment: Speci men Type: BLOOD SPECIMEN Ordering Facility: [facility] Address: [address] [place], [place] [address] Performed By: #### 2 4331-1, 74516-6 #### [facility] CLIA [id number] [address] [place], [place] [address] [place] AST [Catalytic activity/Vol] 29 U/L Normal 13-35 [facility] Comment on above: Order Comment: Speci men Type: BLOOD SPECIMEN Ordering Facility: [facility] Address: [address] [place] [address] Performed By: #### 2 4331-1, 08085-4 #### [facility] CLIA [id number] [address] [place] [address] [place] Bilirubin [Mass/Vol] 0.7 mg/dL Normal 0.2-1.3 [facility] Comment on above: Order Comment: Speci men Type: BLOOD SPECIMEN Ordering Facility: [facility] Address: [address] [place] [address] Performed By: #### 2 4331-1, 48161-9 #### [facility] CLIA [id number] [address] [place] [address] [place] Calcium [Mass/Vol] 9.8 mg/dL Normal 8.5-10.2 [facility] Comment on above: Order Comment: Speci men Type: BLOOD SPECIMEN Ordering Facility: [facility] Address: [address] [place], [place] [address] Performed By: #### 2 4331-1, 73357-7 #### [facility] CLIA [id number] [address] [place], [place] [address] [place] Chloride [Moles/Vol] 104 mmol/L Normal 98-107 [facility] Comment on above: Order Comment: Speci men Type: BLOOD SPECIMEN Ordering Facility: [facility] Address: [address] [place], [place] [address] Performed By: #### 2 4331-1, 95132-1 #### [facility] CLIA [id number] [address] [place] [address] [place] CO2 [Moles/Vol] 24 mmol/L Normal 22-30 [facility] Comment on above: Order Comment: Speci men Type: BLOOD SPECIMEN Ordering Facility: [facility] Address: [address] [place] [address] Performed By: #### 2 4331-, 15293-6 #### [facility] CLIA [id number] [address] [place] [address] [place] Creatinine [Mass/Vol] 0.76 mg/dL Normal 0.58-0.96 [facility] Comment on above: Order Comment: Speci men Type: BLOOD SPECIMEN Ordering Facility: [facility] Address: [address] [place] [address] Performed By: #### 2 4331-, 21224-3 #### [facility] CLIA [id number] [address] [place] [address] [place] Creatinine and Glomerular filtration rate.predicted panel (S/P/Bld) 83 mL/min/1.73m??? Normal >=60 [facility] Comment on above: Order Comment: Speci men Type: BLOOD SPECIMEN Ordering Facility: [facility] Address: [address] [place] [address] Result Comment: Melissa mated Glomerular Filtration Rate [...] actual GFR. Performed By: #### 2 4331-1, 95347-1 #### [facility] CLIA [id number] [address] [place], [place] [address] [place] Glucose [Mass/Vol] 89 mg/dL Normal 74-99 [facility] Comment on above: Order Comment: Reanna kaplan Type: BLOOD SPECIMEN Ordering Facility: [facility] Address: [address] [place] [address] Result Comment: The [place] Diabetes Association (ADA) provides guidance for cutoff [...] Standards of Medical Care in Diabetes 2016, [place] Diabetes Association. Diabetes Care. 2016.39(Suppl 1). Performed By: #### 2 4331-1, 74494-7 #### [facility] CLIA [id number] [address] [place] [address] [place] Potassium [Moles/Vol] 4.4 mmol/L Normal 3.7-5.1 [facility] Comment on above: Order Comment: Reanna kaplan Type: BLOOD SPECIMEN Ordering Facility: [facility] Address: [address] [place] [address] Performed By: #### 2 4331-1, 84705-4 #### [facility] CLIA [id number] [address] [place] [address] [place] Protein [Mass/Vol] 6.9 g/dL Normal 6.3-8.0 [facility] Comment on above: Order Comment: Reanna kaplan Type: BLOOD SPECIMEN Ordering Facility: [facility] Address: [address] [place] [address] Performed By: #### 2 4331-1, 10228-5 #### [facility] CLIA [id number] [address] [place] [address] [place] Sodium [Moles/Vol] 140 mmol/L Normal 136-144 [facility] Comment on above: Order Comment: Speci men Type: BLOOD SPECIMEN Ordering Facility: [facility] Address: [address] [place], [place] [address] Performed By: #### 2 4331-1, 88131-1 #### [facility] CLIA [id number] [address] [place] [address] [place] Urea nitrogen [Mass/Vol] 17 mg/dL Normal 7-21 [facility] Comment on above: Order Comment: Speci men Type: BLOOD SPECIMEN Ordering Facility: [facility] Address: [address] [place] [address] Performed By: #### 2 4331-1, #### [facility] CLIA [id number] [address] [place], [place] [address] [place] LIPID PANEL, NONFASTINGon Cholesterol [Mass/Vol] 221 mg/dL High <200 [facility] Comment on above: Order Comment: Speci men Type: BLOOD SPECIMEN Ordering Facility: [facility] Address: [address] [place], [place] [address] Result Comment: <200 mg/dL, Desirable 200-239 mg/dL, Borderline high >239 mg/dL, High Performed By: #### 2 4331-1, #### [facility] CLIA [id number] [address] [place], [place] [address] [place] HDL CHOLESTEROL, NF 60 mg/dL Normal >39 [facility] Comment on above: Order Comment: Speci men Type: BLOOD SPECIMEN Ordering Facility: [facility] Address: [address] [place], [place] [address] Result Comment: 40-5 9 mg/dL, Acceptable >59 mg/dL, High: Negative risk factor for coronary heart disease <40 mg/dL, Low: Positive risk factor for coronary heart disease Performed By: #### 2 4331-1, 39233-2 #### [facility] CLIA [id number] [address] [place] [address] [place] LDL CHOLESTEROL, NF 137 mg/dL High <100 [facility] Comment on above: Order Comment: Reanna kaplan Type: BLOOD SPECIMEN Ordering Facility: [facility] Address: [address] [place] [address] Result Comment: <100 mg/dL, Optimal 100-129 mg/dL, Near optimal/above optimal 130-159 mg/dL, Borderline high 160-189 mg/dL, High >189 mg/dL, Very high Secondary prevention optimal LDL Cholesterol levels are recommended to be < 70 mg/dL Performed By: #### 2 4331-1, 64903-2 #### [facility] CLIA [id number] [address] [place] [address] OF [facility] LDL/HDL RATIO, NF 2.28 mg/dL Normal <2.54 [facility] Comment on above: Order Comment: Reanna kaplan Type: BLOOD SPECIMEN Ordering Facility: [facility] Address: [address] [place] [address] Result Comment: Refe rence: 1. National Cholesterol Education Program ATP III Guideline At-A-Glance Quick Desk Reference: National Heart, Lung, and Blood [place]. National Institutes of Health. 2001: NIH Publication No. 01-3305. 2. An International Atherosclerosis Society position paper: global recommendations for the management of dyslipidemia: executive summary, Atherosclerosis. 2014: 232(2):410-413. Performed By: #### 2 4331-1, 79313-8 #### [facility] CLIA [id number] [address] [place] [address] [place] NON HDL CHOL, NF 161 mg/dL High <130 [facility] Comment on above: Order Comment: Reanna kaplan Type: BLOOD SPECIMEN Ordering Facility: [facility] Address: [address] [place] [address] Result Comment: <130 mg/dL, Optimal 130-159 mg/dL, Near optimal/above optimal 160-189 mg/dL, Borderline high 190-219 mg/dL, High >219 mg/dL, Very high Secondary prevention optimal non HDL Cholesterol levels are recommended to be <100 mg/dL Performed By: #### 2 4331-1, 98510-2 #### [facility] CLIA [id number] [address] [place] [address] [place] T CHOL/HDL RATIO NF 3.68 mg/dL Normal <5.10 [facility] Comment on above: Order Comment: Speci men Type: BLOOD SPECIMEN Ordering Facility: [facility] Address: [address] [place] [address] Performed By: #### 2 4331-1, 11497-2 #### [facility] CLIA [id number] [address] [place] [address] [place] TRIGLYCERIDES, NF 122 mg/dL Normal <150 [facility] Comment on above: Order Comment: Speci men Type: BLOOD SPECIMEN Ordering Facility: [facility] Address: [address] [place] [address] Result Comment: <150 mg/dL, Normal 150-199 mg/dL, Borderline high 200-499 mg/dL, High >499 mg/dL, Very high Performed By: #### 2 4331-1, 33702-3 #### [facility] CLIA [id number] [address] [place] [address] [place] VLDL CHOLESTEROL, NF 24 mg/dL Normal <30 [facility] Comment on above: Order Comment: Speci men Type: BLOOD SPECIMEN Ordering Facility: [facility] Address: [address] [place] [address] Performed By: #### 2 4331-1, 20622-9 #### [facility] CLIA [id number] [address] [place] [address] [place] 12 Lead EKG performed by [facility] on 04-30-2024 12 Lead EKG performed by [facility] [address] [place] [address] 12 Lead EKG performed by [facility] 04/30/24 0746 MR#: [id number] Acct: [id number] Name: WINSTON OHARA Rep #: [id number] : 1950 74 From: Binta Martinez Attending Dr: CHANCE Anand Status: DEP AMB Ordering Dr: Binta Dobson Date: 04/03 03/26 Location: [facility] Sex: F C Admitted: [facility]/12 Lead EKG performed by [facility] ECG Report Interpretation ---Sinus Rhythm WITHIN NORMAL LIMITSElectronically signed on 04/30/2024 at 14:32 by Sterling Thapa Software Version [id number] 04/30/24 1435 Date Binta FLETCHER CC: Dr. Liliam Alaniz MD Date Dictated: 04/30/24745 Date Transcribed: 04/30/24745 Kennel Aide: LOUISA Signed Normal [facility] Cardiology Visit Reporton Cardiology Visit Report [facility] 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 criteria. Potassium [Moles/Vol] 4.7 mmol/L 3.5-5.1 [facility] Comment on above: Slight Hemolysis, Re sult may be falsely increased. Sodium [Moles/Vol] 137 mmol/L 136-145 [facility] - Chemistry and C hemistry - challengeOrdered By: Sterling Thapa on 11-06-2023 CO2 [Moles/Vol] 29.0 mmol/L 21.0-32.0 [facility] Urea nitrogen/Creatinine [Mass ratio] 21.3 mg/mg 10-20 [facility] No Panel InformationOrdered By: Sterling Thapa on 11-06-2023 Estimated GFR (MDRD) Amer 76 mL/min >60 [facility] Comment on above: GFR Calc Estimated GFR (MDRD) Non-Af Amer 62 mL/min >60 [facility] Comment on above: Non- GFR Calc Serum or plasma calcium hay urement (mass/volume)Ordered By: Sterling Thapa on 11-06-2023 Calcium [Mass/Vol] 9.9 mg/dL 8.5-10.1 [facility] Serum or plasma creatinine m easurement (mass/volume)Ordered By: Sterling Thapa on 11-06-2023 Creatinine [Mass/Vol] 0.94 mg/dL 0.55-1.02 [facility] Comment on above: The validity of the calculated GFR & GFRAA in patients over 70 years has not been determined. Clinical correlation is essential. Serum or plasma urea nitroge n measurement (mass/volume)Ordered By: Sterling Thapa on 11-06-2023 Urea nitrogen [Mass/Vol] 20 mg/dL 7-18 [facility] Thin prep Papanicolaou smear with manual screeningOrdered By: Sterling Thapa on 11-06-2023 Thin prep Papanicolaou smear with manual screening 3 5-15 [facility] - Chemistry and C hemistry - challengeOrdered By: Sterling Thapa on 10-19-2023 Natriuretic peptide B (Bld) [Mass/Vol] 167.8 pg/mL 0-100 [facility] Absolute lymphocyte countOrd ered By: Jf Gallegos on 04-13-2023 Lymphocytes Auto (Unsp spec) [#/Vol] 1.10 10*3/uL 0.83-4.51 [facility] Basophil percentageOrdered B y: Jf Gallegos on 04-13-2023 Basophils/100 WBC (Bld) 0.8 % 0-1 [facility] Chloride [Moles/Vol] 107 mmol/L 98-107 [facility] Eosin[facility]/100 WBC (Bld) 2.3 % 0-5 [facility] Glucose [Mass/Vol] 119 mg/dL 74-106 [facility] Comment on above: Fasting Glucose resu lt from 100 to 125 mg/dL suggests IMPAIRED HOMEOSTASIS per A.D.A. criteria. Neutrophils (Bld) [#/Vol] 4.5 10*3/uL 2.0-7.7 [facility] Neutrophils/100 WBC (Bld) 71.9 % 47-70 [facility] Potassium [Moles/Vol] 4.5 mmol/L 3.5-5.1 [facility] Sodium [Moles/Vol] 137 mmol/L 136-145 [facility] WBC (Bld) [#/Vol] 6.2 10*3/uL 4.4-11.0 [facility] Blood erythrocytes count (nu mber/volume)Ordered By: Jf Gallegos on 04-13-2023 RBC (Bld) [#/Vol] 5.05 10*6/uL 4.2-5.4 [facility] Blood hemoglobin measurement (mass/volume)Ordered By: Jf Gallegos on 04-13-2023 Hemoglobin (Bld) [Mass/Vol] 15.3 g/dL 12.0-15.0 [facility] Blood lymphocytes/100 leukoc ytesOrdered By: Jf Gallegos on 04-13-2023 Lymphocytes/100 WBC (Bld) 17.7 % 19-41 [facility] Blood monocytes/100 leukocyt esOrdered By: Jf Gallegos on 04-13-2023 Monocytes/100 WBC (Bld) 6.8 % 0-10 [facility] Blood platelet mean volumeOr dered By: Jf Gallegos on 04-13-2023 Platelet mean volume (Bld) [Entitic vol] 10.1 fL 6.2-12.0 [facility] Determination of erythrocyte mean corpuscular volume (MCV)Ordered By: Jf Gallegos on 04-13-2023 MCV (RBC) [Entitic vol] 94.3 fL 81-99 [facility] Hematocrit Auto (Bld) [Volum e fraction]Ordered By: Jf Gallegos on 04-13-2023 Hematocrit (Bld) [Volume fraction] 47.6 % 37-47 [facility] - Chemistry and C hemistry - challengeOrdered By: Jf Gallegos on 04-13-2023 CO2 [Moles/Vol] 24.0 mmol/L 21.0-32.0 [facility] Magnesium [Mass/Vol] 2.4 mg/dL 1.6-2.6 [facility] Urea nitrogen/Creatinine [Mass ratio] 18.4 mg/mg 10-20 [facility] - Hematology and Cell countsOrdered By: Jf Gallegos on 04-13-2023 Erythrocyte distribution width (RBC) [Entitic vol] 43.5 fL 35.1-43.9 [facility] Erythrocyte distribution width (RBC) [Ratio] 12.5 % 11.6-14.6 [facility] Immature granulocytes/100 WBC (Bld) 0.500 % 0.0-0.9 [facility] Comment on above: IG% - Immature Granu locytes (promyelocytes, myelocytes and metamyelocytes) > 1% indicates that a LEFT SHIFT is Present. MCH (RBC) [Entitic mass] 30.3 pg 27.0-32.0 [facility] Nucleated RBC/100 WBC (Bld) [Ratio] 0 % 0-5 [facility] MCHC Auto (RBC) [Mass/Vol]Or dered By: Jf Gallegos on 04-13-2023 MCHC (RBC) [Mass/Vol] 32.1 g/dL 32-36 [facility] No Panel InformationOrdered By: Jf Gallegos on 04-13-2023 Estimated Creatinine Clearance Calc 45.47 ml/min [facility] Estimated GFR (MDRD) Amer 72 mL/min >60 [facility] Comment on above: GFR Calc Estimated GFR (MDRD) Non-Af Amer 60 mL/min >60 [facility] Comment on above: Non- GFR Calc Troponin I High Sensitivity 7 pg/mL 3.0-54.0 [facility] Comment on above: Please Note: [place] t Units and Gender Specific Reference Ranges. For more information see Policy Stat Procedure [place] High Sensitivity Troponin (TNIH) and attachments. Platelets bldOrdered By: Ho Gallegos on 04-13-2023 Platelets (Bld) [#/Vol] 230 10*3/uL 150-450 [facility] Serum or plasma calcium hay urement (mass/volume)Ordered By: Jf Gallegos on 04-13-2023 Calcium [Mass/Vol] 9.4 mg/dL 8.5-10.1 [facility] Serum or plasma creatinine m easurement (mass/volume)Ordered By: Jf Gallegos on 04-13-2023 Creatinine [Mass/Vol] 0.98 mg/dL 0.55-1.02 [facility] Comment on above: The validity of the calculated GFR & GFRAA in patients over 70 years has not been determined. Clinical correlation is essential. Serum or plasma urea nitroge n measurement (mass/volume)Ordered By: Jf Gallegos on 04-13-2023 Urea nitrogen [Mass/Vol] 18 mg/dL 7-18 [facility] Thin prep Papanicolaou smear with manual screeningOrdered By: Jf Gallegos on 04-13-2023 Thin prep Papanicolaou smear with manual screening 6 5-15 [facility] [place] SCREENINGon 07-28-[address] [facility] [place] DIAGNOSTIC LTon 03-15-[address] [facility] Absolute lymphocyte counton 01-26-2022 Lymphocytes Auto (Unsp spec) [#/Vol] 1.70 10*3/uL 0.83-4.51 [facility] Work Phone: Basophil percentageon 2021 Basophils/100 WBC (Bld) 0.8 % 0-1 [facility] Work Phone: Chloride [Moles/Vol] 106 mmol/L 98-107 [facility] Work Phone: Eosinophils/100 WBC (Bld) 2.2 % 0-5 [facility] Work Phone: Glucose [Mass/Vol] 111 mg/dL 74-106 [facility] Work Phone: Comment on above: Fasting Glucose resu lt from 100 to 125 mg/dL suggests IMPAIRED HOMEOSTASIS per A.D.A. criteria. Neutrophils (Bld) [#/Vol] 4.6 10*3/uL 2.0-7.7 [facility] Work Phone: Neutrophils/100 WBC (Bld) 63.8 % 47-70 [facility] Work Phone: Potassium [Moles/Vol] 4.6 mmol/L 3.5-5.1 [facility] Work Phone: Sodium [Moles/Vol] 138 mmol/L 136-145 [facility] Work Phone: WBC (Bld) [#/Vol] 7.2 10*3/uL 4.4-11.0 [facility] Work Phone: Blood erythrocytes count (nu mber/volume)on 01-26-2022 RBC (Bld) [#/Vol] 4.49 10*6/uL 4.2-5.4 [facility] Work Phone: Blood hemoglobin measurement (mass/volume)on 01-26-2022 Hemoglobin (Bld) [Mass/Vol] 14.3 g/dL 12.0-15.0 [facility] Work Phone: Blood lymphocytes/100 leukoc yteson 01-26-2022 Lymphocytes/100 WBC (Bld) 23.7 % 19-41 [facility] Work Phone: Blood monocytes/100 leukocyt eson 01-26-2022 Monocytes/100 WBC (Bld) 8.8 % 0-10 [facility] Work Phone: [phone] Blood platelet mean volumeon 01-26-2022 Platelet mean volume (Bld) [Entitic vol] 10.3 fL 6.2-12.0 [facility] Work Phone: [phone] Determination of erythrocyte mean corpuscular volume (MCV)on 01-26-2022 MCV (RBC) [Entitic vol] 96.2 fL 81-99 [facility] Work Phone: [phone] Hematocrit Auto (Bld) [Volum e fraction]on 01-26-2022 Hematocrit (Bld) [Volume fraction] 43.2 % 37-47 [facility] Work Phone: [phone] Laboratory - Chemistry and C hemistry - challengeon 01-26-2022 CO2 [Moles/Vol] 27.0 mmol/L 21.0-32.0 [facility] Work Phone: [phone] Magnesium [Mass/Vol] 2.2 mg/dL 1.6-2.6 [facility] Work Phone: [phone] Urea nitrogen/Creatinine [Mass ratio] 16.4 mg/mg 10-20 [facility] Work Phone: [phone] Laboratory - Hematology and Cell countson 01-26-2022 Erythrocyte distribution width (RBC) [Entitic vol] 46.5 fL 35.1-43.9 [facility] Work Phone: [phone] Erythrocyte distribution width (RBC) [Ratio] 13.1 % 11.6-14.6 [facility] Work Phone: [phone] Immature granulocytes/100 WBC (Bld) 0.700 % 0.0-0.9 [facility] Work Phone: [phone] Comment on above: IG% - Immature Granu locytes (promyelocytes, myelocytes and metamyelocytes) > 1% indicates that a LEFT SHIFT is Present. MCH (RBC) [Entitic mass] 31.8 pg 27.0-32.0 [facility] Work Phone: Nucleated RBC/100 WBC (Bld) [Ratio] 0 % 0-5 [facility] Work Phone: MCHC Auto (RBC) [Mass/Vol]on 01-26-2022 MCHC (RBC) [Mass/Vol] 33.1 g/dL 32-36 [facility] Work Phone: [phone] No Panel Informationon 01-26 Estimated Creatinine Clearance Calc 46.78 ml/min [facility] Work Phone: [phone] Estimated GFR (MDRD) Amer 73 mL/min >60 [facility] Work Phone: [phone] Comment on above: GFR Calc Estimated GFR (MDRD) Non-Af Amer 60 mL/min >60 [facility] Work Phone: Comment on above: Non- GFR Calc Thyroid Stimulating Hormone (TSH) 6.39 uIU/mL 0.358-3.74 [facility] Work Phone: [phone] Troponin I High Sensitivity 4 pg/mL 3.0-54.0 [facility] Work Phone: Comment on above: Please Note: [place] t Units and Gender Specific Reference Ranges. For more information see Policy Stat Procedure [place] High Sensitivity Troponin (TNIH) and attachments. Platelets bldon 01-26-2022 Platelets (Bld) [#/Vol] 236 10*3/uL 150-450 [facility] Work Phone: [phone] Serum or plasma calcium hay urement (mass/volume)on 01-26-2022 Calcium [Mass/Vol] 9.4 mg/dL 8.5-10.1 [facility] Work Phone: [phone] Serum or plasma creatinine m easurement (mass/volume)on 01-26-2022 Creatinine [Mass/Vol] 0.98 mg/dL 0.55-1.02 [facility] Work Phone: Comment on above: The validity of the calculated GFR & GFRAA in patients over 70 years has not been determined. Clinical correlation is essential. Serum or plasma urea nitroge n measurement (mass/volume)on 01-26-2022 Urea nitrogen [Mass/Vol] 16 mg/dL 7-18 [facility] Work Phone: Thin prep Papanicolaou smear with manual screeningon 01-26-2022 Thin prep Papanicolaou smear with manual screening 5 5-15 [facility] Work Phone: COLONOSCOPY SCREENINGon 05-[address] [facility] Vital Signs Date Time Vital Sign Value Performing Clinician Facility 01-31-2025 13:49-0400 Diastolic blood pressure 68 mm[Hg] Dr. Liliam Alaniz MD Work Phone: 5(699)624-094776 [place] [address] 01-31-2025 13:49-0400 Heart rate 130 /min Dr. Liliam Alaniz MD Work Phone: 4(754)308-074076 [place] [address] 01-31-2025 13:49-0400 Respiratory rate 18 /min Dr. Liliam Alaniz MD Work Phone: 2(211)239-374976 [place] [address] 01-31-2025 13:49-0400 Systolic blood pressure 98 mm[Hg] Dr. Liliam Alaniz MD Work Phone: 2(050)066-040576 [place] [address] 01-13-2025 11:13-0400 Body height 162.[address] Liliam Alaniz MD Work Phone: 6(260)348-026876 [place] [address] 01-13-2025 11:13-0400 Body weight 69.[address] Liliam Alaniz MD Work Phone: 8(682)671-019576 [place] [address] 01-10-2025 12:00-0400 Body mass index (BMI) [Ratio] 26.4 kg/m2 Dr. Liliam Alaniz MD Work Phone: 1(451)211-709169 [place] [address] 01-10-2025 09:26-0400 Body height 162.[address] Liliam Alaniz MD Work Phone: 1(978)438-514076 [place] [address] 01-10-2025 09:26-0400 Body mass index (BMI) [Ratio] 26.2 kg/m2 Dr. Liliam Alaniz MD Work Phone: 0(009)773-675876 [place] [address] 01-10-2025 09:26-0400 Body weight 69.[address] Liliam Alaniz MD Work Phone: [facility] 01-10-2025 09:26-0400 Diastolic blood pressure 66 mm[Hg] Dr. Liliam Alaniz MD Work Phone: [facility] 01-10-2025 09:26-0400 Heart rate 123 /min Dr. Liliam Alaniz MD Work Phone: [facility] 01-10-2025 09:26-0400 Respiratory rate 16 /min Dr. Liliam Alaniz MD Work Phone: [facility] 01-10-2025 09:26-0400 Systolic blood pressure 109 mm[Hg] Dr. Liliam Alaniz MD Work Phone: [facility] 12-26-2024 10:35-0400 Body mass index (BMI) [Ratio] 26.53 kg/m2 Liliam Alaniz MD Work Phone: [facility] 12-26-2024 10:35-0400 Body weight 70.1 kg Liliam Alaniz MD Work Phone: [facility] 12-26-2024 10:35-0400 Diastolic blood pressure 62 mm[Hg] Liliam Alaniz MD Work Phone: [facility] 12-26-2024 10:35-0400 Heart rate 88 /min Liliam Alaniz MD Work Phone: [facility] 12-26-2024 10:35-0400 Respiratory rate 14 /min Liliam Alaniz MD Work Phone: [facility] 12-26-2024 10:35-0400 SaO2% (BldA) [Mass fraction] 98 % Liliam Alaniz MD Work Phone: [facility] 12-26-2024 10:35-0400 Systolic blood pressure 136 mm[Hg] Liliam Alaniz MD Work Phone: [facility] 10-04-2024 13:41-0400 Body mass index (BMI) [Ratio] 26.7 kg/m2 Dr. Liliam Alaniz MD Work Phone: 8(382)815-833669 [place] [address] 10-04-2024 13:41-0400 Body weight 70.[address] Liliam Alaniz MD Work Phone: 1(570)307-087076 [place] [address] 10-04-2024 13:41-0400 Diastolic blood pressure 74 mm[Hg] Dr. Liliam Alaniz MD Work Phone: 0(778)413-209976 [place] [address] 10-04-2024 13:41-0400 Heart rate 54 /min Dr. Liliam Alaniz MD Work Phone: 2(485)352-001376 [place] [address] 10-04-2024 13:41-0400 Respiratory rate 16 /min Dr. Liliam Alaniz MD Work Phone: 1(138)370-634876 [place] [address] 10-04-2024 13:41-0400 Systolic blood pressure 159 mm[Hg] Dr. Liliam Alaniz MD Work Phone: 9(759)086-439676 [place] [address] 09-16-2024 17:05-0400 Body temperature 98.7 [degF] Dr. Liliam Alaniz MD Work Phone: 1(900)452-342176 [place] [address] 09-16-2024 17:05-0400 Diastolic blood pressure 73 mm[Hg] Dr. Liliam Alaniz MD Work Phone: 1(953)421-444076 [place] [address] 09-16-2024 17:05-0400 Heart rate 54 /min Dr. Liliam Alaniz MD Work Phone: 1(312)807-573676 [place] [address] 09-16-2024 17:05-0400 Respiratory rate 18 /min Dr. Liliam Alaniz MD Work Phone: 7(214)739-055676 [place] [address] 09-16-2024 17:05-0400 SaO2% (BldA) [Mass fraction] 97 % Dr. Liliam Alaniz MD Work Phone: 7(205)196-583376 [place] [address] 09-16-2024 17:05-0400 Systolic blood pressure 137 mm[Hg] Dr. Liliam Alaniz MD Work Phone: 3(410)712-287676 [place] [address] 09-16-2024 15:55-0400 Inhaled oxygen flow rate 2 L/min Dr. Liliam Alaniz MD Work Phone: [facility] 09-16-2024 13:51-0400 Body height 162.[address] Liliam Alaniz MD Work Phone: [facility] 09-16-2024 13:51-0400 Body mass index (BMI) [Ratio] 25.7 kg/m2 Dr. Liliam Alaniz MD Work Phone: [facility] 09-16-2024 13:51-0400 Body weight 68.[address] Liliam Alaniz MD Work Phone: [facility] 08-29-2024 19:48-0500 Body temperature 101.61 [degF] Reji Thomason APRN.LINE MANAGER Work Phone: [facility] 08-29-2024 19:48-0500 Diastolic blood pressure 71 mm[Hg] Reji Thomason APRN.LINE MANAGER Work Phone: [facility] 08-29-2024 19:48-0500 Heart rate 63 /min Reji Thomason APRN.LINE MANAGER Work Phone: [facility] 08-29-2024 19:48-0500 Respiratory rate 20 /min Reji Thomason APRN.LINE MANAGER Work Phone: [facility] 08-29-2024 19:48-0500 SaO2% (BldA) [Mass fraction] 98 % Reji Thomason APRN.LINE MANAGER Work Phone: [facility] 08-29-2024 19:48-0500 Systolic blood pressure 141 mm[Hg] Reji Thomason APRN.LINE MANAGER Work Phone: [facility] 06-14-2024 16:02-0500 Diastolic blood pressure 68 mm[Hg] Liliam Alaniz MD Work Phone: [facility] 06-14-2024 16:02-0500 Systolic blood pressure 134 mm[Hg] Liliam Alaniz MD Work Phone: [facility] 06-14-2024 14:11-0500 Body height 162.6 cm Liliam Alaniz MD Work Phone: [facility] 06-14-2024 14:11-0500 Body mass index (BMI) [Ratio] 26.11 kg/m2 Liliam Alaniz MD Work Phone: [facility] 06-14-2024 14:11-0500 Body weight 69 kg Liliam Alaniz MD Work Phone: [facility] 06-14-2024 14:11-0500 Heart rate 64 /min Liliam Alaniz MD Work Phone: [facility] 06-14-2024 14:11-0500 Respiratory rate 12 /min Liliam Alaniz MD Work Phone: [facility] 06-14-2024 14:11-0500 SaO2% (BldA) [Mass fraction] 100 % Liliam Alaniz MD Work Phone: [facility] 12-20-2023 09:11-0400 Body mass index (BMI) [Ratio] 26.43 kg/m2 Lliiam Alaniz MD Work Phone: [facility] 12-20-2023 09:11-0400 Body temperature 97.7 [degF] Liliam Alaniz MD Work Phone: [facility] 12-20-2023 09:11-0400 Body weight 69.85 kg Liliam Alaniz MD Work Phone: [facility] 12-20-2023 09:11-0400 Diastolic blood pressure 64 mm[Hg] Liliam Alaniz MD Work Phone: [facility] 12-20-2023 09:11-0400 Heart rate 61 /min Liliam Alaniz MD Work Phone: [facility] 12-20-2023 09:11-0400 Respiratory rate 18 /min Liliam Alaniz MD Work Phone: [facility] 12-20-2023 09:11-0400 SaO2% (BldA) [Mass fraction] 97 % Liliam Alaniz MD Work Phone: [facility] 12-20-2023 09:11-0400 Systolic blood pressure 114 mm[Hg] Liliam Alaniz MD Work Phone: [facility] 09-26-2023 13:43-0400 Body height 162.[address] Liliam Alaniz Work Phone: [facility] 09-26-2023 13:43-0400 Body mass index (BMI) [Ratio] 26.1 kg/m2 Dr. Liliam Alaniz Work Phone: [facility] 09-26-2023 13:43-0400 Body weight 68.[address] Liliam Alaniz Work Phone: [facility] 09-26-2023 13:43-0400 Diastolic blood pressure 66 mm[Hg] Dr. Liliam Alaniz Work Phone: 4(358)500-248969 [place] [address] 09-26-2023 13:43-0400 Heart rate 52 /min Dr. Liliam Alaniz Work Phone: 2(870)763-984969 [place] [address] 09-26-2023 13:43-0400 Respiratory rate 16 /min Dr. Liliam Alaniz Work Phone: [facility] 09-26-2023 13:43-0400 Systolic blood pressure 133 mm[Hg] Dr. Liliam Alaniz Work Phone: [facility] 04-13-2023 16:54-0400 Diastolic blood pressure 71 mm[Hg] Dr. Liliam Alaniz Work Phone: [facility] 04-13-2023 16:54-0400 Heart rate 56 /min Dr. Liliam Alaniz Work Phone: 7(307)796-410269 [place] [address] 04-13-2023 16:54-0400 Respiratory rate 14 /min Dr. Liliam Alaniz Work Phone: [facility] 04-13-2023 16:54-0400 SaO2% (BldA) [Mass fraction] 98 % Dr. Liliam Alaniz Work Phone: 8(648)422-436808 [address] 04-13-2023 16:54-0400 Systolic blood pressure 136 mm[Hg] Dr. Liliam Alaniz Work Phone: 4(014)025-285176 [place] [address] 04-13-2023 15:08-0400 Inhaled oxygen flow rate 99 L/min Dr. Liliam Alaniz Work Phone: 7(513)808-295276 [place] [address] 04-13-2023 12:38-0400 Body height 162.[address] Liliam Alaniz Work Phone: 1(515)999-753876 [place] [address] 04-13-2023 12:38-0400 Body mass index (BMI) [Ratio] 25.5 kg/m2 Dr. Liliam Alaniz Work Phone: 4(275)129-401476 [place] [address] 04-13-2023 12:38-0400 Body temperature 97.8 [degF] Dr. Liliam Alaniz Work Phone: 3(903)487-762076 [place] [address] 04-13-2023 12:38-0400 Body weight 67.[address] Liliam Alaniz Work Phone: 7(535)010-618576 [place] [address] 02-22-2023 11:37-0400 Body height 162.[address] Liliam Alaniz Work Phone: 5(862)572-372776 [place] [address] 02-22-2023 11:32-0400 Body mass index (BMI) [Ratio] 25.2 kg/m2 Dr. Liliam Alaniz Work Phone: 8(891)123-885576 [place] [address] 02-22-2023 11:32-0400 Body weight 66.[address] Liliam Alaniz Work Phone: 6(303)048-825376 [place] [address] 02-22-2023 11:32-0400 Diastolic blood pressure 80 mm[Hg] Dr. Liliam Alaniz Work Phone: 0(927)596-949376 [place] [address] 02-22-2023 11:32-0400 Heart rate 51 /min Dr. Liliam Alaniz Work Phone: 3(929)561-563776 [place] [address] 02-22-2023 11:32-0400 Respiratory rate 18 /min Dr. Liliam Alaniz Work Phone: [facility] 02-22-2023 11:32-0400 SaO2% (BldA) [Mass fraction] 98 % Dr. Liliam Alaniz Work Phone: [facility] 02-22-2023 11:32-0400 Systolic blood pressure 138 mm[Hg] Dr. Liliam Alaniz Work Phone: [facility] 12-14-2022 13:10-0400 Diastolic blood pressure 64 mm[Hg] Tuyet Golden DO Work Phone: [facility] 12-14-2022 13:10-0400 Heart rate 58 /min Tuyet Golden DO Work Phone: [facility] 12-14-2022 13:10-0400 SaO2% (BldA) [Mass fraction] 99 % Tuyet Golden DO Work Phone: [facility] 12-14-2022 13:10-0400 Systolic blood pressure 122 mm[Hg] Tuyet Golden DO Work Phone: [facility] 11-11-2022 11:01-0400 Diastolic blood pressure 68 mm[Hg] Tuyet Golden DO Work Phone: [facility] 11-11-2022 11:01-0400 Heart rate 62 /min Tuyet Golden DO Work Phone: [facility] 11-11-2022 11:01-0400 SaO2% (BldA) [Mass fraction] 99 % Tuyet Golden DO Work Phone: [facility] 11-11-2022 11:01-0400 Systolic blood pressure 132 mm[Hg] Tuyet Golden DO Work Phone: [facility] 09-06-2022 10:36-0500 Body temperature 97.39 [degF] Liliam Alaniz MD Work Phone: [facility] 09-06-2022 10:36-0500 Body weight 68.04 kg Liliam Alaniz MD Work Phone: [facility] 09-06-2022 10:36-0500 Diastolic blood pressure 72 mm[Hg] Liliam Alaniz MD Work Phone: [facility] 09-06-2022 10:36-0500 Heart rate 59 /min Liliam Alaniz MD Work Phone: [facility] 09-06-2022 10:36-0500 Respiratory rate 18 /min Liliam Alaniz MD Work Phone: [facility] 09-06-2022 10:36-0500 SaO2% (BldA) [Mass fraction] 99 % Liliam Alaniz MD Work Phone: [facility] 09-06-2022 10:36-0500 Systolic blood pressure 124 mm[Hg] Liliam Alaniz MD Work Phone: [facility] 06-22-2022 13:02-0500 Body height 162.6 cm Liliam Alaniz MD Work Phone: [facility] 06-22-2022 13:02-0500 Body weight 70.31 kg Liliam Alaniz MD Work Phone: [facility] 06-22-2022 13:02-0500 Diastolic blood pressure 84 mm[Hg] Liliam Alaniz MD Work Phone: [facility] 06-22-2022 13:02-0500 Heart rate 59 /min Liliam Alaniz MD Work Phone: [facility] 06-22-2022 13:02-0500 SaO2% (BldA) [Mass fraction] 100 % Liliam Alaniz MD Work Phone: [facility] 06-22-2022 13:02-0500 Systolic blood pressure 136 mm[Hg] Liliam Alaniz MD Work Phone: [facility] 02-22-2022 11:07-0400 Body weight 69.4 kg Liliam Alaniz MD Work Phone: [facility] 02-22-2022 11:07-0400 Diastolic blood pressure 84 mm[Hg] Liliam Alaniz MD Work Phone: [facility] 02-22-2022 11:07-0400 Heart rate 54 /min Liliam Alaniz MD Work Phone: [facility] 02-22-2022 11:07-0400 SaO2% (BldA) [Mass fraction] 98 % Liliam Alaniz MD Work Phone: [facility] 02-22-2022 11:07-0400 Systolic blood pressure 136 mm[Hg] Liliam Alaniz MD Work Phone: [facility] 02-07-2022 08:21-0400 Body weight 68.49 kg Katey Stanton READING EFFICIENCY COURSE DIRECTOR.SUPER[employer]OR [employer] Work Phone: [facility] 02-07-2022 08:21-0400 Diastolic blood pressure 70 mm[Hg] Katey Stanton READING EFFICIENCY COURSE DIRECTOR.SUPERVISOR [employer] Work Phone: [facility] 02-07-2022 08:21-0400 Heart rate 54 /min Katey Stanton READING EFFICIENCY COURSE DIRECTOR.SUPERVISOR [employer] Work Phone: [facility] 02-07-2022 08:21-0400 Respiratory rate 14 /min Katey Stanton READING EFFICIENCY COURSE DIRECTOR.SUPERVISOR [employer] Work Phone: [facility] 02-07-2022 08:21-0400 SaO2% (BldA) [Mass fraction] 97 % Katey Stanton READING EFFICIENCY COURSE DIRECTOR.SUPERVISOR [employer] Work Phone: [facility] 02-07-2022 08:21-0400 Systolic blood pressure 124 mm[Hg] Katey Stanton READING EFFICIENCY COURSE DIRECTOR.SUPERVISOR [employer] Work Phone: [facility] 01-27-2022 00:59-0400 Diastolic blood pressure 80 mm[Hg] [facility] Work Phone: 01-27-2022 00:59-0400 Heart rate 82 /min [facility] Work Phone: 01-27-2022 00:59-0400 Respiratory rate 16 /min [facility] Work Phone: 01-27-2022 00:59-0400 Systolic blood pressure 135 mm[Hg] [facility] Work Phone: 01-26-2022 22:27-0400 Body height 162.56 cm [facility] Work Phone: 01-26-2022 22:27-0400 Body mass index (BMI) [Ratio] 25.7 kg/m2 [facility] Work Phone: 01-26-2022 22:27-0400 Body temperature 97.9 [degF] [facility] Work Phone: 01-26-2022 22:27-0400 Body weight 68.03 kg [facility] Work Phone: 01-26-2022 22:27-0400 SaO2% (BldA) [Mass fraction] 99 % [facility] Work Phone: 11-02-2021 09:45-0400 Diastolic blood pressure 59 mm[Hg] Jake Boyle MD Work Phone: [facility] 11-02-2021 09:45-0400 Heart rate 52 /min Jake Boyle MD Work Phone: [facility] 11-02-2021 09:45-0400 SaO2% (BldA) [Mass fraction] 97 % Jake Boyle MD Work Phone: [facility] 11-02-2021 09:45-0400 Systolic blood pressure 128 mm[Hg] Jake Boyle MD Work Phone: [facility] 11-02-2021 09:25-0400 Respiratory rate 16 /min Jake Boyle MD Work Phone: [facility] 11-02-2021 08:08-0400 Body temperature 97 [degF] Jake Boyle MD Work Phone: [facility] 11-02-2021 08:08-0400 Body weight 68.6 kg Jake Boyle MD Work Phone: [facility] 06-08-2021 14:21-0500 Diastolic blood pressure 84 mm[Hg] Dr. Liliam Alaniz Work Phone: [facility] Work Phone: 06-08-2021 14:21-0500 Systolic blood pressure 137 mm[Hg] Dr. Liliam Alaniz Work Phone: [facility] Work Phone: 06-08-2021 13:51-0500 Body height 162.[address] Liliam Alaniz Work Phone: [facility] Work Phone: 06-08-2021 13:51-0500 Body mass index (BMI) [Ratio] 26.2 kg/m2 Dr. Liliam Alaniz Work Phone: [facility] Work Phone: 06-08-2021 13:51-0500 Body weight 69.[address] Liliam Alaniz Work Phone: [facility] Work Phone: 06-08-2021 13:51-0500 Heart rate 54 /min Dr. Liliam Alaniz Work Phone: [facility] Work Phone: 06-08-2021 13:51-0500 Respiratory rate 18 /min Dr. Liliam Alaniz Work Phone: [facility] Work Phone: 06-08-2021 13:51-0500 SaO2% (BldA) [Mass fraction] 98 % Dr. Liliam Alaniz Work Phone: [facility] Work Phone: Encounters Encounter Date Encounter Type Care Provider Facility Start: 02-07-2025 End: 02-07-[address] Liliam Alaniz MD Work Phone: -[facility] Start: 02-07-2025 End: 02-07-[address] Sterling Thapa MD -[facility] Work Phone: Start: 01-31-2025 End: 01-31-2025 Patient encounter procedure Jozef Gonzales Lilly CARRIER OPERATOR-C -[facility] Work Phone: Start: 01-31-2025 End: 01-31-[address] Liliam Alaniz MD Work Phone: -[facility] Start: 01-20-2025 End: 01-20-2025 Patient encounter procedure Binta Dobson PA -[facility] Work Phone: Start: 01-20-2025 End: 01-20-[address] Liliam Alaniz MD Work Phone: -[facility] Start: 01-15-2025 End: 01-15-[address] Liliam Alaniz MD Work Phone: -[facility] Start: 01-15-2025 End: 01-15-[address] Sterling Thapa MD -[facility] Work Phone: Start: 01-13-2025 ambulatory Liliam Pappas y:[facility] Start: 01-13-2025 Non-patient / Non-visit Dr. Gage kidd DO -[facility] Start: 01-13-2025 End: 01-13-2025 Admission to same day surgery center Dr. Sterling Thapa MD -Gynaecological Oncologist/Special Procedures Work Phone: Start: 01-13-2025 End: 01-13-[address] Liliam Alaniz MD Work Phone: -Gynaecological Oncologist/Special Procedures Start: 01-10-2025 End: 01-10-2025 Patient encounter procedure Binta Dobson PA -[facility] Work Phone: Start: 01-10-2025 End: 01-10-[address] Liliam Alaniz MD Work Phone: -[facility] Start: 12-26-2024 End: 12-26-2024 Office outpatient visit 25 minutes Liliam Alaniz MD Work Phone: [facility] [place] Comment on above: Psychophysiological insomnia (Primary Dx); Paroxysmal atrial fibrillation (HCC); Hypercholesterolemia; Chronic pain of right knee; Primary osteoarthritis of right knee; Essential hypertension; Vitamin D deficiency Start: 12-26-2024 End: 12-26-2024 ambulatory LILIAM Di MENJIVARTHOMAS JEFFERSON [facility] Start: 12-23-2024 End: 12-23-2024 ambulatory [facility] Facility:[facility] Start: 12-09-2024 End: 12-10-2024 Refill Liliam Alaniz MD Work Phone: Internal Medicine [place] Comment on above: Refill Request Start: 10-04-2024 End: 12-04-2024 Follow-up encounter Katey Stanton APRN.CNS Work Phone: Internal [facility] Start: 10-04-2024 End: 10-04-[address] Sterling Thapa MD -[facility] Work Phone: Start: 10-04-2024 End: 10-04-2024 [facility] Facility[facility] Start: 09-23-2024 End: 09-23-2024 [facility] Start: 09-23-2024 End: 09-23-2024 Subsequent hospital visit by physician Screen Mammo [facility] Mammogram Comment on above: Encounter for screen ing mammogram for breast cancer [Z12.31] Start: 09-16-2024 Follow-up status Dr. Liliam pandey MD Work Phone: [facility] Start: 09-16-2024 End: 09-16-2024 Emergency department patient visit Dr. Liliam Alaniz MD Work Phone: -Emergency Department Work Phone: Start: 09-16-2024 End: 09-16-2024 Patient encounter procedure Jozef DELA CRUZ -[facility] Work Phone: Start: 09-16-2024 End: 09-16-2024 ambulatory Liliam Albrechthenry Facility:[facility] Start: 08-29-2024 End: 08-29-2024 Patient encounter procedure [...] Start: 06-14-2024 End: 06-14-2024 ambulatory LILIAM ALANIZ Facility:[facility] Start: 06-14-2024 End: 06-14-2024 Patient encounter procedure Liliam Alaniz MD Work Phone: [facility] [place] Comment on above: Medicare annual well ness visit, subsequent (Primary Dx); Essential hypertension; Vitamin D deficiency; Generalized anxiety disorder; Paroxysmal atrial fibrillation (HCC); Psychophysiological insomnia; Encounter for immunization; Screening for depression; Encounter for screening mammogram for breast cancer Start: 06-10-2024 End: 06-10-2024 ambulatory LILIAM ALANIZ Facility:[facility] Start: 05-28-2024 End: 05-29-2024 Refill Liliam Alaniz MD Work Phone: Internal Medicine [place] Comment on above: Refill Request Start: 04-30-2024 End: 04-30-2024 ambulatory Binta FLETCHER Facility:[facility] Start: 12-20-2023 End: 12-20-2023 Office outpatient visit 25 minutes Liliam Alaniz MD Work Phone: Internal Medicine [place] Comment on above: Essential hypertensi on (Primary Dx); Ankle edema, bilateral; Psychophysiological insomnia; Vitamin D deficiency; Encounter for immunization; Encounter for long-term current use of medication Start: 12-08-2023 ambulatory Liliam ingram MD Work Phone: Internal Medicine [place] Comment on above: labs Start: 11-06-2023 End: 11-06-[address] Liliam Alaniz Work Phone: [facility] Work Phone: Start: 11-06-2023 End: 11-06-[address] Liliam Alaniz Work Phone: [facility] Work Phone: Start: 10-19-2023 End: 10-19-[address] Liliam Alaniz Work Phone: [facility] Work Phone: Start: 10-19-2023 End: 10-19-[address] Liliam Alaniz Work Phone: [facility] Work Phone: Start: 09-26-2023 End: 09-26-[address] Liliam Alaniz Work Phone: [facility] [facility] Work Phone: Start: 08-29-2023 Documentation procedure Mammog jessica Coordinator [facility] Start: 08-29-2023 Letter encounter Mammography Coordinator [facility] Department Start: 04-13-2023 End: 04-13-2023 Emergency department patient visit Dr. Liliam Alaniz Work Phone: [facility]-Emergency Department Work Phone: Start: 03-07-2023 End: 03-07-[address] Liliam Alaniz Work Phone: [facility] Work Phone: Start: 03-07-2023 End: 03-07-[address] Liliam Alaniz Work Phone: [facility]-Pulmonary Services/Neurology Work Phone: Start: 02-22-2023 End: 02-22-[address] Liliam Alaniz Work Phone: [facility] Work Phone: Start: 12-16-2022 ambulatory Lliiam ingram MD Work Phone: [facility] [place] Comment on above: BLOODWORK Start: 12-14-2022 End: 12-14-2022 Patient encounter procedure Tuyet Golden DO Work Phone: Vascular Surgery Comment on above: Symptomatic spider v aricose vein (Primary Dx) Start: 12-12-2022 Refill Liliam ingram MD Work Phone: Internal Medicine [place] Comment on above: Refill Request Start: 11-14-2022 Refill Liliam ingram MD Work Phone: Internal Medicine [place] Comment on above: Refill Request Start: 11-11-2022 [...] Liliam ingram MD Work Phone: Internal Medicine [place] Comment on above: results from thyroid blood work Start: 07-28-2022 End: 07-28-2022 Subsequent hospital visit by physician Screen Mammo [facility] Mamm[facility] Comment on above: Encounter for screen ing mammogram for breast cancer [Z12.31] Start: 07-08-2022 Telephone encounter Liliam shelton MD Work Phone: Internal Medicine [place] Comment on above: Patient Update Start: 06-25-2022 End: 06-25-2022 ambulatory Liliam Alaniz MD Work Phone: Internal Medicine [place] Comment on above: COVID-19 virus infec tion (Primary Dx) Start: 06-25-2022 End: 06-25-2022 Telephone encounter Liliam Alaniz MD Work Phone: [facility] [place] Start: 06-22-2022 End: 06-22-2022 Office outpatient visit 40 minutes Liliam Alaniz MD Work Phone: Internal Medicine [place] Comment on above: Psychophysiological insomnia (Primary Dx); Essential hypertension; Elevated TSH; Paroxysmal atrial fibrillation (HCC); Vitamin D deficiency; Generalized anxiety disorder; Encounter for long-term current use of medication; Encounter for screening mammogram for breast cancer Start: 05-18-2022 Refill Liliam ingram MD Work Phone: [facility] [place] Comment on above: Refill Request Start: 03-15-2022 End: 03-15-2022 Subsequent hospital visit by physician Diagnostic Mammo [facility] Mamm[facility] Comment on above: Mammographic microca lcification [R92.0] Start: 02-22-2022 End: 02-22-2022 Office outpatient visit 25 minutes Liliam Alaniz MD Work Phone: [facility] [place] Comment on above: Elevated TSH (Primar y Dx); Paroxysmal atrial fibrillation (HCC); Hot flashes; Vitamin D deficiency; Essential hypertension; Encounter for long-term current use of medication Start: 02-07-2022 End: 02-07-2022 Patient encounter procedure Katey Stanton APRN.[employer] Work Phone: Internal Medicine [place] Comment on above: Paroxysmal atrial fi brillation (HCC) (Primary Dx); Palpitations; Elevated TSH Start: 01-31-2022 Telephone encounter Liliam shelton MD Work Phone: Internal Medicine [place] Comment on above: question regarding ronak hymarisol (ER follow up scheduled); Appointment Start: 01-26-2022 End: 01-27-2022 Emergency department patient visit [facility]Emergency Department Start: 11-08-2021 Telephone encounter Jake Boyle MD Work Phone: General Surgery Comment on above: Results Results (colonoscopy ); Opened In Error Start: 11-02-2021 End: 11-02-2021 Subsequent hospital visit by physician Jake Boyle MD Work Phone: Ambulatory Surgery Comment on above: Personal history of colonic polyps [Z86.010] Start: 09-03-2021 End: 09-03-[address] Liliam Alaniz Work Phone: [facility]-Breast Imaging - Biopsy/[facility]ter[facility] Start: 08-19-2021 Telephone encounter Jake Boyle MD Work Phone: General Surgery Comment on above: 11/02/2021 Colonosco py Start: 06-08-2021 End: 06-08-[address] Liliam Alaniz Work Phone: [facility] Procedures Date Procedure Procedure Detail [...] Start: 06-14-2024 Adult depression screening assessment Liliam Alainz MD Work Phone: Start: 06-10-2024 Lipid 1996 [...] ca scrn not hi rsk ind Jake Boyle MD Work Phone: Start: 11-02-2021 Colonoscopy Jake [...] Activity Detail Author Start: 11-03-2031 Colonoscopy [address] [facility] Start: 11-03-2031 COLORECTAL CANCER SCREENING COLORECTAL CANCER SCREENING [facility] Start: 11-03-2031 Screening for malign ant neoplasm of colon [facility] Start: 12-23-2029 Lipid panel Lipid Screening [facility] Start: 06-10-2029 Lipid panel Lipid Screening [facility] Start: 12-17-2028 [facility] Start: 06-05-2028 Lipid panel Lipid Screening [facility] Start: 12-24-2027 Diabetes Screening Diabetes Screenin g [facility] Start: 06-10-2027 Diabetes Screening Diabetes Screenin g [facility] Start: 06-10-2027 Lipid 1996 panel - S jim or Plasma Lipid Screening [facility] Start: 06-10-2027 LIPID SCREEN LIPID SCREEN [facility] Start: 2027 RSV Vaccine (1 - 1-d ose 75+ series) RSV Vaccine (1 - 1-dose 75+ series) [facility] Start: 12-21-2026 LIPID SCREEN LIPID SCREEN [facility] Start: 12-17-2026 Diabetes Screening Diabetes Screenin g [facility] Start: 11-02-2026 Colonoscopy COLONOSCOPY [facility] Start: 11-02-2026 COLORECTAL CANCER SCREENING COLORECTAL CANCER SCREENING [facility] Start: 06-05-2026 Diabetes Screening Diabetes Screenin g [facility] Start: 06-01-2026 LIPID SCREEN LIPID SCREEN [facility] Start: 12-29-2025 End: 12-29-2025 Patient encounter procedure 12/29/2025 11:00 AM EDT Office Visit [facility] [place] [address] [place], [place] [id number] Liliam Alaniz MD [address] [place], [place] [id number] 6 niki f/up [facility] [place] Comment on above: 6 niki f/up Start: 12-26-2025 Annual PCP Team Enrober Tender richy Disease Visit Annual PCP Team Chronic Disease Visit [facility] Start: 12-26-2025 Shingrix Vaccine (1 of 2) Gay grix Vaccine (1 of 2) [facility] Comment on above: Postponed from 04/07 (Declined at this time) Start: 12-26-2025 Urine microalbumin profile DTa P,Tdap,Td Vaccine (3 - Td or Tdap) [facility] Comment on above: Postponed from 11/20 (Declined at this time) Start: 09-23-2025 Screening for malign ant neoplasm of breast Mammogram Screening [facility] Start: 06-18-2025 End: 06-18-2025 Patient encounter procedure 06/18/2025 10:40 AM EST Office Visit [facility] [place] [address] [place] [address] Liliam Alaniz MD [address] [place] [address] medicare wellness [facility] [place] Comment on above: medicare wellness Start: 06-14-2025 Annual PCP Team Enrober Tender richy Disease Visit Annual PCP Team Chronic Disease Visit [facility] Start: 06-14-2025 Depression Screening Depression Scre ening [facility] Start: 06-14-2025 Medicare Annual Well ness Visit Medicare Annual Wellness Visit [facility] Start: 06-10-2025 DIABETES SCREEN DIABETES SCREEN [facility] Start: 06-10-2025 Diabetes Screening Diabetes Screenin g [facility] Start: 03-03-2025 Influenza vaccination Influenz a Vaccine (Season Ended) [facility] Start: 02-07-2025 Evaluation of diagno stic study results [facility] Start: 01-31-2025 Evaluation of diagno stic study results [facility] Start: 01-20-2025 Evaluation of diagno [facility] study results [facility] Start: 01-15-2025 Evaluation of diagno [facility] study results [facility] Start: 01-13-2025 Patient discharge [facility] Start: 01-10-2025 Evaluation of diagno stic study results [facility] Start: 12-30-2024 Influenza vaccination Influenza Vacc ine (#1) [facility] Comment on above: Postponed from 03/03 (Declined at this time) Start: 12-27-2024 End: 12-27-2024 Patient encounter procedure 12/27/2024 1:40 PM EDT Office Visit [facility] [place] [address] [place] [address] Liliam Alaniz MD [address] [facility] [place] [address] 6 month follow up [facility] [place] Comment on above: 6 month follow up Start: 12-21-2024 DIABETES SCREEN DIABETES SCREEN [facility] Start: 12-19-2024 Annual PCP Team Baylee richy Disease Visit Annual PCP Team Chronic Disease Visit [facility] Start: 12-19-2024 BP Controlled (<130/80) BP Controlle d (<130/80) [facility] Start: 09-18-2024 End: 09-18-2024 Patient encounter procedure 09/18/2024 12:50 PM EDT Appointment Mammogram [address] [place] [address] Mammogram Start: 09-16-2024 End: 09-16-2024 [facility] Start: 09-16-2024 End: 09-16-2024 [facility] Start: 09-16-2024 Evaluation of diagno stic study results 12 Lead EKG performed by [facility] Start: 09-02-2024 End: 09-02-2024 Patient encounter procedure 09/02/2024 1:30 PM EST Appointment Mammogram [address] [place] [address] Encounter for screening mammogram for breast cancer [Z12.31] Mammogram Comment on above: Encounter for screen ing mammogram for breast cancer [Z12.31] Start: 08-28-2024 Screening for malign ant neoplasm of breast Mammogram Screening [facility] Start: 07-03-2024 Advance Directive Discussion Advance Directive Discussion [facility] Start: 06-14-2024 End: 06-14-2024 Patient encounter procedure [facility] Comment on above: 6 month follow up Medicare Wellness Start: 06-05-2024 Annual PCP Team Baylee richy Disease Visit Annual PCP Team Chronic Disease Visit [facility] Start: 06-05-2024 RSV Vaccine (1 - 1-d ose 60+ series) RSV Vaccine (1 - 1-dose 60+ series) [facility] Comment on above: Postponed from 04/07 (Declined at this time) Start: 06-01-2024 DIABETES SCREEN DIABETES SCREEN [facility] Start: 03-03-2024 Influenza vaccination [facility] Start: 12-31-2023 Influenza vaccination Influenza Vacc ine (#1) [facility] Comment on above: Postponed from 03/03 (Declined at this time) Start: 12-24-2023 Annual PCP Team Enrober Tender richy Disease Visit Annual PCP Team Chronic Disease Visit [facility] Start: 12-24-2023 BP Controlled (<130/80) BP Controlle d (<130/80) [facility] Start: 12-24-2023 Urine microalbumin profile DTa P,Tdap,Td Vaccine (3 - Td or Tdap) [facility] Comment on above: Postponed from 11/20 (Declined at this time) Start: 12-20-2023 End: 12-20-2023 Patient encounter procedure 12/20/2023 9:00 AM EDT Office Visit [facility] [place] [address] [place] [address] Liliam Alaniz MD [address] [place] [address] 6 month follow up [facility] [place] Comment on above: 6 month follow up Start: 12-15-2023 BP CONTROLLED (<130/80) BP CONTROLLE D (<130/80) [facility] Start: 12-15-2023 End: 12-15-2023 ambulatory 12/15/2023 1:15 PM EDT Results Only [facility] [address] [place] [address] [facility] Start: 12-14-2023 End: 03-14-2024 25-hydroxyvitamin D3 [Mass/volume] in Serum or Plasma VITAMIN D 25 HYDROXY Lab Routine Vitamin D deficiency Expected: 12/14/2023, Expires: 03/14/[address] [facility] Comment on above: Expected: 12/14/2023 , Expires: 03/14/2024 Start: 12-14-2023 End: 03-14-2024 CBC W Auto Differential panel - Blood COMPLETE BLOOD COUNT AND DIFFERENTIAL Lab Routine Encounter for therapeutic drug monitoring Expected: 12/14/2023, Expires: 03/14/2024 [facility] Work Phone: Comment on above: Expected: 12/14/2023 , Expires: 03/14/2024 Start: 12-14-2023 End: 03-14-2024 Comprehensive metabolic 2000 panel - Serum or Plasma COMPREHENSIVE METABOLIC PANEL Lab Routine Encounter for therapeutic drug monitoring Expected: 12/14/2023, Expires: 03/14/[address] [facility] Comment on above: Expected: 12/14/2023 , Expires: 03/14/2024 Start: 12-14-2023 End: 03-14-2024 LIPID PANEL, NONFASTING LIPID PANEL, NONFASTING Lab Routine Dyslipidemia Expected: 12/14/2023, Expires: 03/14/[address] [facility] Comment on above: Expected: 12/14/2023 , Expires: 03/14/2024 Start: 09-14-2023 BP CONTROLLED (<130/80) BP CONTROLLE D (<130/80) [facility] Start: 09-07-2023 ANNUAL PCP TEAM ADMINISTRATIVE OFFICE CLERK RICHY DISEASE VISIT ANNUAL PCP TEAM CHRONIC DISEASE VISIT [facility] Start: 09-07-2023 BP CONTROLLED (<130/80) BP CONTROLLE D (<130/80) [facility] Start: 07-28-[address] [facility] Start: 07-03-2023 Advance Directive Discussion Advance Directive Discussion [facility] Start: 07-03-2023 Behavioral Health Screening Behavioral Health Screening [facility] Start: 07-03-2023 Depression Assessment Depression Ass essment [facility] Start: 06-25-2023 ANNUAL PCP TEAM ADMINISTRATIVE OFFICE CLERK RICHY DISEASE VISIT ANNUAL PCP TEAM CHRONIC DISEASE VISIT [facility] Start: 06-22-2023 SHINGRIX VACCINE (1 of 2) GAY GRIX VACCINE (1 of 2) [facility] Comment on above: Postponed from 04/07 (Declined at this time) Start: 04-13-2023 [facility] Start: 03-03-2023 Covid-19 Vaccine () Covid-19 Vaccine () [facility] Start: 03-03-2023 Influenza vaccination C [facility] Start: 02-22-2023 ANNUAL PCP TEAM ADMINISTRATIVE OFFICE CLERK RICHY DISEASE VISIT ANNUAL PCP TEAM CHRONIC DISEASE VISIT [facility] Start: 02-07-2023 BP CONTROLLED (<130/80) BP CONTROLLE D (<130/80) [facility] Start: 12-30-2022 Influenza vaccination INFLUENZA (#1) [facility] Comment on above: Postponed from 03/03 (Declined at this time) Start: 12-22-2022 Adult depression scr eening assessment DEPRESSION SCREENING [facility] Start: 12-22-2022 ANNUAL PCP TEAM ADMINISTRATIVE OFFICE CLERK RICHY DISEASE VISIT ANNUAL PCP TEAM CHRONIC DISEASE VISIT [facility] Start: 12-22-2022 BP CONTROLLED (<130/80) BP CONTROLLE D (<130/80) [facility] Start: 12-22-2022 COVID-19 VACCINE (3 - Booster for Pfizer series) COVID-19 VACCINE (3 - Booster for Pfizer series) [facility] Comment on above: Postponed from 03/04 (Declined at this time) Postponed from 11/27 (Declined at this time) Start: 12-22-2022 PNEUMOCOCCAL: 65+ (1 - PCV) PNEUMOCOCCAL: 65+ (1 - PCV) [facility] Comment on above: Postponed from 04/07 (Declined at this time) Start: 12-22-2022 Urine microalbumin profile DTA P,TDAP,TD (3 - Td or Tdap) [facility] Comment on above: Postponed from 11/20 (Declined at this time) Start: 07-06-2022 Mammography MAMMOGRAM [facility] Start: 07-03-2022 ADVANCE DIRECTIVE DISCUSSION ADVANCE DIRECTIVE DISCUSSION [facility] Start: 07-03-2022 DEPRESSION ASSESSMENT DEPRESSION ASS ESSMENT [facility] Start: 06-21-2022 ANNUAL PCP TEAM ADMINISTRATIVE OFFICE CLERK RICHY DISEASE VISIT ANNUAL PCP TEAM CHRONIC DISEASE VISIT [facility] Start: 06-21-2022 SHINGRIX VACCINE (1 of 2) GAY GRIX VACCINE (1 of 2) [facility] Comment on above: Postponed from 04/07 (Declined at this time) Start: 05-25-2022 End: 07-25-2022 25-hydroxyvitamin D3 [Mass/volume] in Serum or Plasma VITAMIN D 25 HYDROXY Lab Routine Vitamin D deficiency Expected: 05/25/2022 (Approximate), Expires: 07/25/2022 [facility] Work Phone: Comment on above: Expected: 05/25/2022 (Approximate), Expires: 07/25/2022 Start: 05-25-2022 End: 07-25-2022 CBC panel - Blood by Automated count CBC Lab Routine Essential hypertension Encounter for long-term current use of medication Expected: 05/25/2022 (Approximate), Expires: 07/25/2022 [facility] Work Phone: Comment on above: Expected: 05/25/2022 (Approximate), Expires: 07/25/2022 Start: 05-25-2022 End: 07-25-2022 Comprehensive metabolic 2000 panel - Serum or Plasma COMP METABOLIC PANEL Lab Routine Essential hypertension Encounter for long-term current use of medication Expected: 05/25/2022 (Approximate), Expires: 07/25/2022 [facility] Work Phone: Comment on above: Expected: 05/25/2022 (Approximate), Expires: 07/25/2022 Start: 05-25-2022 End: 07-25-2022 Hemoglobin A1c in Blood HGB A1C Lab Routine Encounter for long-term current use of medication Expected: 05/25/2022 (Approximate), Expires: 07/25/2022 [facility] Work Phone: Comment on above: Expected: 05/25/2022 (Approximate), Expires: 07/25/2022 Start: 05-25-2022 End: 07-25-2022 Lipid 1996 panel - Serum or Plasma LIPID PANEL BASIC Lab Routine Essential hypertension Expected: 05/25/2022 (Approximate), Expires: 07/25/2022 [facility] Work Phone: Comment on above: Expected: 05/25/2022 (Approximate), Expires: 07/25/2022 Start: 05-25-2022 End: 07-25-2022 Thyrotropin [Units/volume] in Serum or Plasma TSH BLD Lab Routine Elevated TSH Paroxysmal atrial fibrillation (HCC) Expected: 05/25/2022 (Approximate), Expires: 07/25/2022 [facility] Work Phone: Comment on above: Expected: 05/25/2022 (Approximate), Expires: 07/25/2022 Start: 05-25-2022 End: 07-25-2022 Thyroxine (T4) free [Mass/volume] in Serum or Plasma T4 FREE/FREE THYROX Lab Routine Elevated TSH Paroxysmal atrial fibrillation (HCC) Expected: 05/25/2022 (Approximate), Expires: 07/25/2022 [facility] Work Phone: Comment on above: Expected: 05/25/2022 (Approximate), Expires: 07/25/2022 Start: 05-25-2022 End: 07-25-2022 Triiodothyronine (T3) Free [Mass/volume] in Serum or Plasma T3 FREE BLD Lab Routine Elevated TSH Paroxysmal atrial fibrillation (HCC) Expected: 05/25/2022 (Approximate), Expires: 07/25/2022 [facility] Work Phone: Comment on above: Expected: 05/25/2022 (Approximate), Expires: 07/25/2022 Start: 05-10-2022 End: 07-10-2022 Thyrotropin [Units/volume] in Serum or Plasma TSH BLD Lab Routine Palpitations Expected: 05/10/2022 (Approximate), Expires: 07/10/2022 [facility] Work Phone: Comment on above: Expected: 05/10/2022 (Approximate), Expires: 07/10/2022 Start: 03-03-2022 Influenza vaccination [facility] Start: 02-07-2022 End: 04-09-2022 THYROID PEROXIDASE ANTIBODY BLOOD THYROID PEROXIDASE ANTIBODY BLOOD Lab Routine Paroxysmal atrial fibrillation (HCC) Palpitations Elevated TSH Expected: 02/07/2022, Expires: 04/09/2022 [facility] Work Phone: Comment on above: Expected: 02/07/2022 , Expires: 04/09/2022 Start: 01-31-2022 End: 04-02-2022 Thyrotropin [Units/volume] in Serum or Plasma TSH BLD Lab Routine Thyroid cyst Expected: 01/31/2022, Expires: 04/02/2022 [facility] Work Phone: Comment on above: Expected: 01/31/2022 , Expires: 04/02/2022 Start: 01-31-2022 End: 04-02-2022 Thyroxine (T4) free [Mass/volume] in Serum or Plasma T4 FREE/FREE THYROX Lab Routine Thyroid cyst Expected: 01/31/2022, Expires: 04/02/2022 [facility] Work Phone: Comment on above: Expected: 01/31/2022 , Expires: 04/02/2022 Start: 12-13-2021 Adult depression scr eening assessment DEPRESSION SCREENING [facility] Start: 11-20-2021 Urine microalbumin profile [facility] Start: 09-03-2021 Bx breast w/device 1 st lesion stereotactic guid BX BREAST 1ST LESION STRTCTC [facility] Work Phone: Start: 07-03-2021 ADVANCE DIRECTIVE DISCUSSION ADVANCE DIRECTIVE DISCUSSION [facility] Start: 07-03-2021 DEPRESSION ASSESSMENT DEPRESSION ASS ESSMENT [facility] [facility] Start: 03-04-2021 COVID-19 VACCINE (3 - Booster for Pfizer series) COVID-19 VACCINE (3 - Booster for Pfizer series) [facility] Start: 2012 RSV Vaccine (1 - 1-d ose 60+ series) RSV Vaccine (1 - 1-dose 60+ series) [facility] Start: 2002 Shingrix Vaccine (1 of 2) Agy grix Vaccine (1 of 2) [facility] Start: 1997 COLOGUARD (FIT-DNA) COLOGUARD (FIT-D NA) [facility] Start: [address] COLONOGRAPHY [facility] Start: 1997 FECAL OCCULT BLOOD FECAL OCCULT BLOO D [facility] Start: 1997 Screening for malign ant neoplasm of colon [facility] Start: 1997 SIGMOIDOSCOPY SIGMOIDOSCOPY [facility] [place] Start: 1970 BP CONTROLLED (<130/80) BP CONTROLLE D (<130/80) [facility] Start: 1970 Depression Screening Depression Scre ening [facility] End: 12-19-2024 25-hydroxyvitamin D3 [Mass/volume] in Serum or Plasma VITAMIN D 25 HYDROXY Lab Routine Vitamin D deficiency Every 6 months for 90 Occurrences starting 12/20/2023 until 12/19/[address] [facility] Comment on above: Every 6 months for 9 0 Occurrences starting 12/20/2023 until 12/19/2024 End: 12-19-2024 Basic metabolic 2000 panel - Serum or Plasma BASIC METABOLIC PANEL Lab Routine Essential hypertension Encounter for long-term current use of medication 60 Occurrences starting 12/20/2023 until 12/19/[address] [facility] Comment on above: 60 Occurrences start ing 12/20/2023 until 12/19/2024 End: 12-19-2024 CBC panel - Blood by Automated count COMPLETE BLOOD COUNT Lab Routine Essential hypertension Every 6 months for 90 Occurrences starting 12/20/2023 until 12/19/[address] [facility] Comment on above: Every 6 months for 9 0 Occurrences starting 12/20/2023 until 12/19/2024 End: 12-19-2024 Comprehensive metabolic 2000 panel - Serum or Plasma COMPREHENSIVE METABOLIC PANEL Lab Routine Essential hypertension Every 6 months for 90 Occurrences starting 12/20/2023 until 12/19/2024 [facility] Work Phone: Comment on above: Every 6 months for 9 0 Occurrences starting 12/20/2023 until 12/19/2024 End: 07-14-2025 DBT Breast - bilateral screening [facility] Radiology Routine Encounter for screening mammogram for breast cancer 1 Occurrences starting 06/14/2024 until 07/14/2025 [facility] Work Phone: Comment on above: 1 Occurrences starti ng 06/14/2024 until 07/14/2025 DBT Breast - bilater al screening [facility] Radiology Routine Encounter for screening mammogram for breast cancer 09/23/2024 1:32 PM EDT [facility] Work Phone: End: 12-19-2024 Lipid 1996 panel - Serum or Plasma LIPID PANEL BASIC Lab Routine Essential hypertension Every 6 months for 90 Occurrences starting 12/20/2023 until 12/19/[address] [facility] Comment on above: Every 6 months for 9 0 Occurrences starting 12/20/2023 until 12/19/2024 End: 12-19-2024 LIPID PANEL, NONFASTING LIPID PANEL, NONFASTING Lab Routine Essential hypertension Every 6 months for 90 Occurrences starting 12/20/2023 until 12/19/[address] [facility] Comment on above: Every 6 months for 9 0 Occurrences starting 12/20/2023 until 12/19/2024 End: 07-22-2023 [facility]CRE[facility] Radiology Routine Encounter for screening mammogram for breast cancer 1 Occurrences starting 06/22/2022 until 07/22/2023 [facility] Work Phone: Comment on above: 1 Occurrences starti ng 06/22/2022 until 07/22/2023 Patient Education [facility] Work Phone: Patient referral [facility] Work Phone: SURGICAL PATHOLOGY [facility] Work Phone: Comment on above: Release Upon Orderin g for 1 Occurrences starting 11/02/2021, 1 completed Thyrotropin [Units/v olume] in Serum or Plasma TSH BLD Lab Routine Thyroid cyst 02/02/2022 12:57 PM EDT [facility] Work Phone: End: 06-22-2023 Thyrotropin [Units/volume] in Serum or Plasma TSH BLD Lab Routine Elevated TSH Paroxysmal atrial fibrillation (HCC) Essential hypertension Encounter for long-term current use of medication Generalized anxiety disorder Every 2 months for 6 Occurrences starting 06/22/2022 until 06/22/2023 [facility] Work Phone: Comment on above: Every 2 months for 6 Occurrences starting 06/22/2022 until 06/22/2023 Thyroxine (T4) free [Mass/volume] in Serum or Plasma T4 FREE/FREE THYROX Lab Routine Thyroid cyst 02/02/2022 12:57 PM EDT [facility] Work Phone: End: 06-22-2023 Thyroxine (T4) free [Mass/volume] in Serum or Plasma T4 FREE/FREE THYROX Lab Routine Elevated TSH Paroxysmal atrial fibrillation (HCC) Essential hypertension Encounter for long-term current use of medication Generalized anxiety disorder Every 2 months for 6 Occurrences starting 06/22/2022 until 06/22/2023 [facility] Work Phone: Comment on above: Every 2 months for 6 Occurrences starting 06/22/2022 until 06/22/2023 End: 06-22-2023 Triiodothyronine (T3) Free [Mass/volume] in Serum or Plasma T3 FREE BLD Lab Routine Elevated TSH Paroxysmal atrial fibrillation (HCC) Essential hypertension Encounter for long-term current use of medication Generalized anxiety disorder Every 2 months for 6 Occurrences starting 06/22/2022 until 06/22/2023 [facility] Work Phone: Comment on above: Every 2 months for 6 Occurrences starting 06/22/2022 until 06/22/2023 Troponin T.cardiac [Mass/volume] in Serum or Plasma by High sensitivity method [facility] End: 03-02-2023 Us soft tissue head & neck real time imge docm US THYROID/PARATHYROID Radiology Routine Thyroid cyst Elevated TSH 1 Occurrences starting 01/31/2022 until 03/02/2023 [facility] Work Phone: Comment on above: 1 Occurrences starti ng 01/31/2022 until 03/02/2023 [facility] Immunizations Immunization Date Immunization Notes Care Provider Fa cili 10-02-2020 Covid (Pfizer) Dr. Liliam pandey Work Phone: [facility] 09-11-2020 Covid (Pfizer) Dr. Liliam pandey Work Phone: [facility] 06-16-2020 influenza, high-dose , quadrivalent vaccine (FLUZONE HIGH DOSE QUADRIVALENT) Jake Boyle MD Work Phone: [facility] 06-16-2020 influenza virus vaccine, unspecified formulation Screen Wstr [facility] 11-21-2011 tetanus toxoid, redu krystina diphtheria toxoid, and acellular pertussis vaccine, adsorbed Jake Boyle MD Work Phone: [facility] Work Phone: 04-08-2009 influenza virus vaccine, unspecified formulation Jake Boyle MD Work Phone: [facility] Work Phone: 08-31-1996 diphtheria and tetan us toxoids, adsorbed for pediatric use Jake Boyle MD Work Phone: [facility] Work Phone: Payers Date Payer Category Payer Self-pay [id number] 2017 [facility] ANTHEM ME DICARE SUPPLEMENT [id number] 2017 Medicare MEDICARE MEDICAR E A AND B [id number] 2017-Present [phone] [address] [address] [place] [address] Medicare [id number] 2017 Medicare [id number] 2017 Unknown ANTHEM ANTHEM ME DICARE SUPPLEMENT [id number] 2017-Present [phone] [address] [place] [address] Indemnity [id number] 2017 Unknown ANTHEM ANTHEM ME DICARE SUPPLEMENT [id number] 2017-Present [phone] [address] [place] [address] Indemnity [id number] 2017 Medicare [id number] 2017 Unknown [id number] 2009 Unknown [id number] Unknown [id number] Unknown [id number] Unknown [id number] Unknown [id number] Unknown [id number] Unknown [id number] Unknown [id number] [id number] Unknown [id number] [id number] Unknown [id number] [id number] Unknown [id number] Unknown [id number] Social History Date Type Detail Facility Start: 06-08-2021 End: 09-26-2023 Tobacco smoking status NCIS Unknown if ever smoked [facility] Start: 10-19-2017 None [facility] Start: 10-19-2017 Spouse/ Significant Other [facility] Start: 11-11-2020 Non-smoker [facility] Start: 1950 Sex Assigned At Female [facility] Start: 02-07-2022 End: 01-13-2025 Tobacco smoking status NHIS Ex-smoker [facility] Start: 07-03-1971 End: 07-03-1986 History of tobacco use Current smoker [facility] Work Phone: Start: 07-03-1971 End: 07-03-1986 History of tobacco use Cigarette Smoker [facility] Work Phone: Start: 11-02-2021 End: 08-29-2024 Alcohol intake Current non-drinker of alcohol (finding) [facility] Start: 06-15-2021 History SDOH Alcohol Frequency [address] [facility] Start: 06-15-2021 History SDOH Alcohol Std Drinks [address] [facility] Start: 06-15-2021 History SDOH Social Connections Phone [address] [facility] Start: 06-15-2021 End: 06-18-2022 History SDOH Social Connections Membership [address] [facility] Start: 06-15-2021 End: 06-18-2022 History SDOH Social Connections Living [address] [facility] Start: 06-15-2021 History SDOH Physical Activity DPW [address] [facility] Start: 06-15-2021 History SDOH Financial [address] [facility] Start: 10-06-2019 Education [address] [facility] Start: 11-28-2012 End: 02-07-2022 Tobacco Comment Quit [address] [facility] Start: 10-23-2021 End: 03-15-2022 Exposure to SARS-CoV-2 (event) Not sure [facility] Work Phone: Start: 02-07-2022 End: 11-11-2022 Cigarettes smoked current (pack per day) - Reported [address] [facility] Start: 02-07-2022 End: 06-14-2024 Tobacco use and exposure Smokeless tobacco non-user [facility] Work Phone: Start: 06-17-2022 End: 11-11-2022 Social connection and isolation panel [facility] In a typical week, h ow many times do you talk on the telephone with family, friends, or neighbors? Patient refused [facility] Are you now , , , , never or living with a partner? Refused [facility] Do you feel stress - tense, restless, nervous, or anxious, or unable to sleep at night because your mind is troubled all the time - these days [OSQ] Only a little [facility] (I/We) worried richelle er (my/our) food would run out before (I/we) got money to buy more. DK or Refused [facility] Start: 10-07-2019 Gender identity Identifies as female gender (finding) [facility] Start: 10-07-2019 Sexual orientation Heterosexual (finding) [facility] How often to you hav e a drink containing alcohol? Never [facility] Start: 09-16-2024 Sex Female (finding) [facility] Do you belong to any clubs or organizations such as christian groups, unions, [employer] or athletic groups, or school groups? No [facility] Are you now , , , , never or living with a partner? [facility] Do you feel stress - tense, restless, nervous, or anxious, or unable to sleep at night because your mind is troubled all the time - these days [OSQ] Not at all [facility] Medical Equipment Procedure Code Equipment Code Equipment Origin al Text Equipment Identifier Dates CEMENT,BONE SHLOMO H 1/2 BATCH FDA Start: 02-03-2021 TRIATH CRUC MERY INING FEMORAL FDA Start: 02-03-2021 ([id number]) Coated knee tibi a prosthesis [id number] FDA Start: 02-03-2021 ([id number]) Polyethylene pat juan m prosthesis [id number] FDA Start: 02-03-2021 ([id number]) Tibial insert [id number] FDA Start: 02-03-2021 CEMENT,BONE SHLOMO H 1/2 [...] MERY INING FEMORAL FDA Start: 02-03-2021 CEMENT,BONE HSLOMO H 1/2 BATCH FDA Start: 02-03-2021 TRIATH CRUC MERY INING FEMORAL FDA Start: 02-03-2021 Functional Status Date Assessment Result Facility 01-05-2015 Are you deaf, or do you have serious difficulty hearing No 01/05/2015 1:28 PM Jessica Waggoner LPN No [facility] 01-05-2015 Are you blind, or do you have serious difficulty seeing, even when wearing glasses No 01/05/2015 1:28 PM Jessica Waggoner LPN No [facility] 01-05-2015 Do you have serious difficulty walking or climbing stairs No 01/05/2015 1:28 PM Jessica Waggoner LPN No [facility] 01-05-2015 Do you have difficul ty dressing or bathing No 01/05/2015 1:28 PM Jessica Waggoner LPN No [facility] 01-05-2015 Because of a physica l, mental, or emotional condition, do you have difficulty doing errands alone such as visiting a physician's office or shopping No 01/05/2015 1:28 PM EDT Jessica Benoit LPN No [facility] Mental Status Date Assessment Result Facility 09-16-2024 Cognitive function Awake;Alert;A ppropriate; Follows Commands [facility] Work Phone: 09-16-2024 Cognitive function Arousable To Voice/Nam e [facility] Work Phone: 04-13-2023 Cognitive function Awake;Alert;A ppropriate; Follows Commands [facility] Work Phone: 01-05-2015 Because of a physica l, mental, or emotional condition, do you have serious difficulty concentrating, remembering, or making decisions No 01/05/2015 1:28 PM EDT Jessica Benoit LPN No [facility] Clinical Notes 04-26-2010 to 01-13-2025 Patient InstructionsLiliam Alaniz MD - 12/26/2024 10:20 AM EDTTelephone Encounter - Liliam Alaniz MD - 12/09/2024 6:33 PM EDTTelephone Encounter - Liliam Alaniz MD - 12/09/2024 6:33 PM EDT Note Date & Type Note Facility 01-13-2025 Procedure note [facility] 01-13-2025 Procedure note [facility] 12-26-2024 Instructions Liliam Alaniz MD - 12/26/2024 11:24 AM EDT - Continue taking sertraline at your current dose; refill has been sent to [facility] and will auto-refill in May. 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 - Stop taking Lasix; it has been removed from your active medications. - Discontinue Bactroban (mupirocin) cream; you no longer need this. - Continue sotalol twice daily as prescribed; do not adjust your dose without approval from your grant manager. - Keep taking your vitamin D supplement [...] while you watch TV. - Eat more moxtl-8-aiyt foods--such as fatty fish, flaxseed, edamame, and walnuts--to support your good cholesterol levels. - Schedule a consultation with an scales inspector (EP) to discuss AFib ablation. Once you [...] clearance before surgery. documented in this encounter [facility] 12-26-2024 History of Present illness Narrative This note was created using [employer] Mediater. Subjective Winston Ohara is a 74 year [...] undergoing an ablation procedure recommended by her grant manager, Dr. Ling, and seeks advice on whether [...] Abs Lymph 1.00 - 4.00 k/uL 1.00 Stewart% % 7.8 Abs Stewart <0.87 k/uL 0.40 Eosin% % 3.3 Abs [...] Zolpidem; reordered 90-day supply with refill to [facility]. - Continue current regimen. # Paroxysmal atrial fibrillation (HCC) (I48.0) - Recent episode post-COVID; currently in normal sinus rhythm with occasional ectopic beats. - Managed with Sotalol; advised against altering dosage without cardiology consultation. - Discussed potential benefits of ablation to maintain sinus rhythm and reduce medication dependency. - Consider referral to Dr. Gil, electronic publishing specialist at [facility], or other [facility] provider, for evaluation and second opinion. - Advised to schedule an appointment with electronic publishing specialist to discuss ablation and obtain surgical [...] current supplementation. Liliam Alaniz MD Recording using [employer] software for draft documentation of the visit was discussed with the patient/authorized transportation services representative; all questions welcomed and answered. Patient/authorized transportation services representative agreed to proceed documented in this encounter [facility] 12-26-2024 Note HNO ID: [id number] Author: LILIAM ALANIZ MD Service: ? Author Type: Physician Type: Progress Notes Filed: 12/26/2024 11:24 Note Text: This note was created using BuzzTabl[employer]. Subjective Winston Ohara is a 74 year [...] undergoing an ablation procedure recommended by her grant manager, Dr. Ling, and seeks advice on whether [...] leg: No edema (more content not included)... [facility] 12-09-2024 Telephone encounter Note The following approved medication requests have been transmitted electronically. Requested Prescriptions Signed Prescriptions Disp Refills zolpidem (AMBIEN) 5 mg tablet 90 tablet 1 Sig: Take 1 tablet by mouth at bedtime as needed for sedation for up to 180 days. Patient should start on December 15, 2024. Authorizing Provider: LILIAM ALANIZ MD [facility] 12-09-2024 Miscellaneous Notes The following approved medication [...] 2024 1:51 PM documented in this encounter [facility] 12-09-2024 Telephone encounter Note Prescription Refill Information [...] Benoit LPN December 09, 2024 1:[address] [facility] 10-04-2024 Progress note Formatting of t his note might be different from the original. Benign findings, 1 year screening mammogram advised. [facility] 10-04-2024 Miscellaneous Notes Benign findings, 1 year screening mammogram advised. documented in this encounter [facility] 10-04-2024 Evaluation note Diagnosis Onset Date Resolution Essential (primary) hypertension chronic October 04, 2024 1:39pm Paroxysmal atrial fibrillation October, chronic October 04, 2024 1:39pm Paroxysmal atrial flutter October, chronic January 10, 2025 9:23am [facility] Work Phone: 1(671) 299-626504-04-2025 Evaluation note* Diagnosis Onset Date Resolution Status Admit Date Essential (primary) hypertension chronic October 04, 2024 1:39pm Paroxysmal atrial fibrillation October, legal department manager richy October 04, 2024 1:39pm Paroxysmal atrial flutter October, chronic January 10, 2025 9:23am Paroxysmal atrial flutter October, chronic January 13, 2025 10:24am [facility] Work Phone: [phone] History of Present illness Narrative* Dena Bravo [...] PATIENT PRESENTS WITH AN IMPLANTABLE OR ATTACHED STENCIL PRINTER: No RADIOLOGY DEPARTMENT: Mammography PERIPHERAL IV DATA: Not applicable SIGNED BY: Sean Gutierrez September 23, 2024 1:44 PM documented in [facility]25 NoteHNO ID: [id number] Author: DENA BRAVO Mammo Tech Service: ? Author Type: Product Safety Officer Type: Progress Notes Filed: 09/23/2024 13:44 Note Text: Radiology Service Progress Note PATIENT NAME: Winston [...] PATIENT PRESENTS WITH AN IMPLANTABLE OR ATTACHED STENCIL PRINTER: No RADIOLOGY DEPARTMENT: Mammography PERIPHERAL IV DATA: Not applicable SIGNED BY: Dena Bravo [employer] Complete September 23, 2024 1:44 [facility]03-17-2025 Radiology Diagnostic study note [facility] Imaging Services [address] [place], [place] [address] Chest 1 View (Portable) MR#: [id number] Acct: [id number] Name: WINSTON OHARA Rep #: [id number] : 1950 F 74 From: Gerard Vaca MD PCP: Dr. Liliam Alaniz MD Status: RE G ER Study:Chest 1 View (Portable) Date of Exam: 09/16/24 Exam# [id number] Ordering Dr: Audie Nieves DO PROCEDURE: CHEST 1 VIEW (PORTABLE) 09/16/2024 REASON FOR EXAM: CHEST PAIN TECHNIQUE: Frontal view of the chest. COMPARISON: 06 February 2021 FINDINGS: The heart size is normal. The lungs are clear. Demineralization of the bones. Stable examination when compared to prior. RAD/Chest 1 View (Portable) IMPRESSION: No measurable change. Reading Location: [id number] CC: Dr. Liliam Alaniz MD; Dr. Audie Nieves DO ~ Kennel Aide: Signed [facility]02-27-2025 Instructions* Patient Instructions* Reji Thomason APRN.LINE MANAGER - 08/29/2024 7:56 PM EST Fact Sheet [...] of LAGEVRIO during to this registry at [email or web address]://covid-pr.[email or web address] [place] [facility] or . For individuals who are sexually [...] virus. COVID-19 illnesses have ranged from very otqd-dg-yqujhm, including illness resulting in . While information [...] serious illnesses Take any medicines including prescription, ovad-iwl-nfhpaim medicines, vitamins, and herbal products. How do [...] NG or OG that is size 12 Prydeinig (FR) or larger. If you miss a [...] to treat people with COVID-19. Go to https://www.fda.gov/culbvfblc-jhdylflxlirq-oaw-response/fbo-woqcygegcnwgbxi-bon- policy-framework/acmhlyakv-ikk-trsjzxpqatkyo for more information. It is your choice [...] FDA MedWatch at www.fda.gov/medwatch or call 1-800-fda-1088 (1651.971.1890). How should I store LAGEVRIO? Store LAGEVRIO capsules at room temperature between 68 F to 77 F (20 C to 25 C). Keep LAGEVRIO and all medicines out of the reach of children. How can I learn more about COVID-19? Ask your healthcare provider. Visit www.cdc.gov/COVID19 Contact your local or state public health department. Call [employer] at (toll free in the [place] Visit www.[employer].[facility] [facility] What Is an Emergency Use Authorization (EUA)? The [place] FDA has made LAGEVRIO available under an emergency access mechanism called an Emergency Use Authorization (EUA) The EUA is supported by a Opener of Health and Human Service (HHS)declaration that circumstances exist to justify emergency use of drugs and biological products during the COVID-19 pandemic. LAGEVRIO for the treatment of adults with a current diagnosis of mxtl-gx-imauoyir COVID-19 who are at high risk for [...] be used under the EUA). Mario. for: [employer] [address] For patent information: www.[employer]me[employer]/research/patent Copyright Mer[employer] & [employer] Inc., [employer] and its affiliates. All rights reserved. [id number] Revised: August 2022 documented [facility] [address] [facility] NoteHNO ID: [id number] Author: REJI THOMASON APRN.MECHE Service: ? Author Type: Nurse Practitioner Type: Progress Notes Filed: 08/29/2024 20:09 Note Text: Molnupiravir Eligibility and Patient Discussion [facility] Formulary Restriction Criteria: Adult outpatients 18 years [...] to proceeding with molnupiravir treatment. Reji Thomason APRN.LINE MANAGER August 29, 2024 7:57 PM CC: Patient presents with: Covid Positive: Tested today + for Covid, after exposure on Sat, fever, achy, eyes watery, runny nose, slight cough, stomach ache, diarrhea, ear pain x yesterda (more content not included)...[facility]02-27-2025 History of Present illness Narrative* Reji Thomason APRN.LINE MANAGER - 08/29/2024 7:49 PM EST Molnupiravir Eligibility and Patient Discussion [facility] Formulary Restriction Criteria: Adult outpatients 18 years [...] to proceeding with molnupiravir treatment. Reji Thomason APRN.[facility] August 29, 2024 7:57 PM CC: Patient [...] Patient agreeable to treatment plan. Reji Thomason APRN.LINE MANAGER documented in this [facility] Telephone encounter Note * Telephone Encounter - Chica Sapp RN - 08/29/2024 6:46 PM EST Please see phone encounter from today. Pt did not read MyChart msg and states she is unable to do VV. Pt and her [facility]. [facility]02-27-2025 Miscellaneous Notes* Telephone Encounter - Chica Sapp RN - 08/29/2024 6:46 PM EST Please see phone encounter from today. Pt did not read MyChart msg and states she is unable to do VV. Pt and her are going [facility]. documented [facility] Telephone encounter Note * Telephone Encounter - Chica aSpp RN - 08/29/2024 6:44 PM EST Pt [...] be seen in [facility]. [facility]02-27-2025 Miscellaneous Notes* Telephone Encounter - Chica Sapp [...] will come in to be seen in [facility] this evening. * Telephone [...] masksand will wear them. documented in this encounterMer[facility]02[facility]27[facility]25 Telephone encounter Note * Telephone Encounter - [...] able to wear masksand will wear them. [facility]12-13-2024 Instructions* Patient Instructions* Liliam Alaniz MD - 06/14/2024 3:11 PM EST - Continue taking Losartan 100 mg daily as prescribed. - Take Sotalol as prescribed; monitor for any episodes of atrial fibrillation (AFib) and report them to your grant manager. - Use Lasix as needed for swelling. [...] the readings. - Follow up with your grant manager in August. - Get a tetanus shot [...] review all the medicines you take, even uaex-sdh-yvyehct medicines. As you get older, the way [...] have certain medical conditions. documented in this encounterMer[facility]12[facility]2024 NoteHNO ID: [id number] Author: LILIAM ALANIZ MD Service: ? Author Type: Physician Type: Progress Notes Filed: 06/14/2024 16:09 Note Text: This note was created using BuzzTableriter. Subjective Winston Ohara is a 74 year [...] ALLERGIES Allergen Reactions Flagy (more content not included)...[facility]12-13-2024 History of Present illness Narrative* Liliam Alaniz MD - 06/14/2024 3:10 PM EST Images from the original note were not included. This note was created using DDx Mediater. Subjective Winston Ohara is a 74 year [...] Abs Lymph 1.00 - 4.00 k/uL 1.00 Stewart% % 7.8 Abs Stewart <0.87 k/uL 0.40 Eosin% % 3.3 Abs [...] medical record. Outside specialists seen: Dr. Thapa ([facility]); Dr. Pond (seismograph recorder) Medical/Family history review Reviewed and updated problem [...] August. Liliam Alaniz MD documented in this [facility]11[facility]24 Telephone encounter Note * Telephone Encounter - [...] 19, 2024. Authorizing Provider: LILIAM ALANIZ MD [facility]11-26-2024 Miscellaneous Notes* Telephone Encounter - Liliam Alaniz [...] you. Lidia Marinelli LPN. documented in this encounterMer[facility]11-26-2024 Telephone encounter Note * Telephone Encounter - [...] Please advise. Thank you. Lidia Marinelli LPN. [facility]06-19-2024 Instructions* Patient Instructions* Liliam Alaniz MD - [...] losartan. Consider valsartan (Diovan). documented in this encounterMer[facility]06-19-2024 History of Present illness Narrative* Liliam Alaniz MD - 12/20/2023 9:29 AM EDT This note was created using BuzzTableriter. Subjective Winston Ohara is a 73 year [...] Wt 69.9 kg (154 lb) LMP 08/31/2009 WnU838% BMI 26.43 kg/m Last 5 Encounter Wt [...] Abs Lymph 1.00 - 4.00 k/uL 1.00 Stewart% % 7.8 Abs Stewart <0.87 k/uL 0.40 Eosin% % 3.3 Abs [...] sleep. Liliam Alaniz MD documented in this encounterMer[facility]02-27-2024 Miscellaneous Notes* Letter - Coordinator, Mammography - 08/29/2023 10:31 AM EST August 29, 2023 PID: [id number] Winston Ohara [address] [place] [address] Dear Ms. Ohara, We are pleased to [...] report will be kept on file at [facility] as part of your permanent medical record and are available for your continuing care. Thank you for allowing us to help in meeting your health care needs. Sincerely, Dr. Mendenhall Interpreting Radiologist [facility] (Normal over 40) documented in this encounterMer[facility]. [facility]10-12-2023 Discharge summary Author Jf Gallegos [facility] April 13, 2023 4:44pm Note Date/Time April 13, 2023 1 :10pm [facility] Medical Records Department [address] [place] [address] Emergency Department Summary 04/13/23 MR#: [id number] Acct: [id number] Name: WINSTON OHARA Rep #:[id number] : 1950 73 From: Jf Sinclair PCP: [...] that showed dilated left and right atrium. [facility] Medical History Anxiety Arthritis Atrial fibrillation with [...] I discussed the case with the patient's grant manager Dr. Thapa. We are both in agreement [...] 71.9 H Lymph % (Auto) 17.7 L Stewart % (Auto) 6.8 Eos % (Auto) 2.3 [...] ACS noted. Management Discussion w/another healthcare provider: Dry Molder (Cardiology (Dr. Thapa)) Procedures Procedural Sedation 1 [...] your Primary Care Provider. Call [facility] ([phone]) or report to the closest Emergency Room. Call 911 if necessary. 04/13/23 1644 <Electronically signed by Jf Gallegos DO> Cosigner Signature (if applicable): CC: Dr. Liliam Alaniz MD ~ Signed [facility] Work Phone: 1(966) 582-556506-14-2023 Instructions* Patient Instructions* Swetha Gupta - 12/14/2022 [...] please call the office. documented in this encounterMer[facility]06-14-2023 History of Present illness Narrative* Tuyet Golden [...] A/P: Symptomatic varicose veins documented in this [facility]06-12-2023 Miscellaneous Notes* Telephone Encounter - Jessica Benoit LPN - 12/12/2022 4:40 PM EDT Last office visit: 09/06/22 Next appointment scheduled: 12/23/22 Patient phones requesting refills as follows: Requested Prescriptions Pending Prescriptions Disp Refills sertraline (ZOLOFT) 25 mg tablet 90 tablet 1 Sig: Take 1 tablet by mouth once daily. Jessica Benoit LPN documented in this encounterMer[facility]05-15-2023 Miscellaneous Notes* Telephone Encounter - Liliam Alaniz [...] you. Lyssa Ortiz LPN documented in this encounterMer[facility]05-12-2023 History of Present illness Narrative* Tuyet Golden, DO - 11/11/2022 12:06 PM EDT Images from the original note were not included. [facility] [place] DEPARTMENT OF VASCULAR SURGERY OUTPATIENT VISIT DATE [...] month SIGNATURE: Tuyet Golden DO PATIENT NAME: Winston Ohara DATE: November 11, 2022 TIME: 2:31 PM documented in this encounterMer[facility]05-12-2023 Instructions* Patient Instructions* Swetha Gupta - 11/11/2022 [...] please call the office. documented in this [facility]03-23-2023 Miscellaneous Notes* Telephone Encounter - Janessa Ashby [...] call back. Please advise documented in this [place] [address]-23-2023 Miscellaneous Notes* Telephone Encounter - Swetha Gupta - 09/22/2022 10:12 AM EDT [employer] message sent to the patient documented in this [facility]03-07-2023 Instructions* Patient Instructions* Liilam Alaniz MD - 09/06/2022 11:33 AM EST r Surgeon--Dr. Tuyet Golden documented in this [facility]03-07-2023 History of Present illness Narrative* Liliam Alaniz MD - 09/06/2022 11:08 AM EST This note was created using BuzzTableriter. Subjective Winston Ohara is a 72 year [...] the date of the service which included ysnt-rx-iavv patient care, completing clinical documentation, obtaining and/or reviewing separately obtained history, performing a medically appropriate examination, and ordering medications, tests, or procedures. Liliam Alaniz MD documented in this encounterMer[facility]03-02-2023 Miscellaneous Notes* Telephone Encounter - Kelin Maradiaga [...] taking thyroid medication? Patient phone number is [phone]. Please advise documented in this encounterMer[facility]02-20-2023 Miscellaneous Notes* Telephone Encounter - Jessica Benoit LPN - 08/22/2022 3:07 PM EST Being addressed in another My Chart encounter dated 08/18/22. documented in this encounterMer[facility]01-26-2023 History of Present illness Narrative* Bita Gagnon, [...] 28, 2022 1:31 PM documented in this encounterMer[facility]. [facility]01-06-2023 Miscellaneous Notes* Telephone Encounter - Barbra Daniels [...] states that provider can send response through [employer]. Please review and advise, Terri Henley RN documented in this encounterMer[facility]. [facility]12-24-2022 History of Present illness Narrative* Liliam Alaniz MD - 06/25/2022 12:30 PM EST Telemedicine Evaluation for COVID-19 Infection Audio only was used for evaluation of this patient. Location of patient: [facility] Winston Ohara is a 72 year [...] (Xarelto) and that molnupiravir is available at [facility] retail pharmacy ( needed to get from there due to his renal function). Closed today--not sure if will be open t omorrow or Monday, but has until Monday to start med wit be within 5 days of onset of illness. This patient encounter involved the screening or treatment of novel coronavirus infection (COVID-19). Molnupiravir Eligibility and Patient Discussion [facility] Formulary Restriction Criteria: Adult outpatients 18 years [...] medications, tests, or procedures. documented in this encounterMercy Health St. [facility]12-24-2022 Instructions* Patient Instructions* Liliam Alaniz MD - 06/25/2022 12:30 PM EST Resources for Managing Anxiety During COVID Crisis https://www.virusanxiety.com https://www.cdc.gov/coronavirus/2019-ncov/prepare/pmbunlsu-fujtny-yixxagg.html https://coronavirus.[place].gov/wps/portal/gov/covid-19/home/resources/resources-fo y-rkasgd-axymax-odbs-uwh-ywqql-19-pandemic www.HeyLets.[place] [facility]/us/blog/tjg-aixup-ieyadrdkrusw//nmd-hqxydb-neevqon irus-anxiety https://www.HeyLets.[place] [facility]/us/blog/gop-soncf-nkzlxbg//51-otlx-ucaogog oo-ksbk-bwmwzxuneg-now https://www.HeyLets.[place] [facility]/us/blog/experimentations//4-wqrjozfjaxk-vl wabhodedm-neniqahuaz-pufuyhjdz How to Protect Yourself & Others from COVID-19 Wash your hands often Wash your hands often with soap and water for at least 20 seconds especially after you have been lea public place, or after blowing your nose, coughing, or sneezing. If soap and water are not readily available, use a hand commercial attorney that contains at least 60% alcohol. Cover [...] that you do not come to any [facility] facility without calling your primary care physician or speaking to a provider using a virtual visit using [facility] [employer]. You will be evaluated to determine if you require being seen in person or if you meet CDC guidelines for testing for COVID-19 based on symptoms, travel and exposures. If you meet criteria for testing, your [employer] provider or primary care physician will [...] at least 30 days of prescription medications, kxvj-nxv-caidiko medicines, and supplies on hand in case [...] youwant to harm yourself or others: Call 542 if you feel like you want to harm yourself or others Visit the Disaster Distress Helpline [place] , [place] [address] Visit the [employer] Domestic Violence Hotline or call and TTY Visit the National Suicide Prevention Lifeline or call and TTY or text Most importantly, don't panic. By following basic prevention measures such as hand hygiene and cover your cough, you are helping to keep yourself and others healthy. Additional information can be found on the CDC and [facility] web sites: https://www.cdc.gov/coronavirus/2019-nCoV/index.html https://[facility].org/coronavirus Beginning Home Isolation Isolation is used to [...] to your local emergency facility: Notify the weaving machine operator that you are seeking care for [...] healthcare provider to share your information with [employer],then your healthcare provider will report your use of molnupiravir during to [employer] Juan. by calling or Pregnancyreporting.[employer]. For individuals who are sexually active with [...] molnupiravir for the treatment of adults with kahc-aj-zboyapsc coronavirus disease 2019 (COVID-19) with positive results [...] virus. COVID-19 illnesses have ranged from very gxru-rq-qdmdic, including illness resulting in . While information [...] is an investigational medicine used to treat ttpe-pr-pmqdwhsv COVID-19 in adults: with positive results of [...] serious illnesses Are taking any medicines (prescription, qnat-vfv-twzoowb, vitamins, or herbal products). How do I [...] to treat people with COVID-19. Go to https://www.fda.gov/zpkusjjzg-wbgpasktanvg-lze-response/hfu-ykbmfirwnutwdyl-vch- policy-framework/oedoqayxi-hug-qmbqvoxvpjnbf for more information. It is your choice [...] to FDA MedWatch at www.fda.gov/medwatch or call 9-096-NEF-9759 ( ). How should I store molnupiravir? Store molnupiravir capsules at room temperature between 68 F to 77 F (20 C to 25 C). Keep molnupiravir and all medicines out of the reach of children and pets. How can I learn more about COVID-19? Ask your healthcare provider. Visit www.cdc.gov/COVID19 Contact your local or state public health department. Call [employer] at (toll free in the [place] Visit www.[employer] What Is an Emergency Use Authorization (EUA)? The [place] FDA has made molnupiravir available under an emergency access mechanism called an Emergency Use Authorization (EUA) The EUA is supported by a Opener of Health and Human Service (HHS) declaration that circumstances exist to justify emergency use of drugs and biological products during the COVID-19 pandemic. Molnupiravir for the treatment of rayn-ty-nqlcbykk COVID-19 in adults with positive results of [...] used under the EUA). For patent information: www.[employer]/research/patent Copyright 2020 [employer] [place], [facility] and its affiliates. All rights reserved. [id number] Issued: 06/24/2021 documented in [address] encounterMer[facility]12-21-2022 History of Present illness Narrative* Liliam Alaniz [...] for screening mammogram for breast cancer Z12.31 [facility] SCREENING Patient here for yearly exam and [...] management. Liliam Alaniz MD documented in this encounterMer[facility]11-17-2022 Miscellaneous Notes* Telephone Encounter - Liliam Alaniz [...] you. Sylvia Keith LPN documented in this encounterMer[facility]. [facility]09-13-2022 History of Present illness Narrative* RT Ayah(R) [...] 15, 2022 10:58 AM documented in this encounterMer[facility]. [facility]08-23-2022 History of Present illness Narrative* Liliam Alaniz MD - 02/22/2022 11:33 AM EDT This note was created using BuzzTableriter. Subjective Winston Ohara is a 71 year old female. Patient presents with: Follow Up: Thyroid SUBJECTIVE:lady Winston Ohara is a 71 year old year old lady here today for follow up appointment for review of medical conditions. Back in December had hot feeling and shortness of breath. Patton unusually hot. [place]ton flushing sensation over upper chest to shoulders [...] PANEL Liliam Alaniz MD documented in this encounterMer[facility]08-08-2022 Instructions* Patient Instructions* Katey Stanton APRN.CNS - 02/07/2022 8:42 AM EDT Let us know if any problems be fore your next visit. Check thyroid labs in June before your visit documented in this encounterMer[facility]. [facility]08-08-2022 History of Present illness Narrative* Katey Stanton [...] OSH records reviewed. She was seen at [facility] emergency department on January 27, 2022 for shortness of breath, intermittent hot flashes and flushing. She went to the emergency department to check for cardiac source of symptoms. Her heart rhythm was noted to be normal sinus rhythm. Impression was low concern for pulmonary embolus. Chest x-ray with no concerning findings. Labs show elevated TSH otherwise in acceptable range. Subsequently seen at [facility] 01/31/2022. Noted to have atrial [...] Level: 4 - Moderate documented in this encounterMer[facility]08-01-2022 Miscellaneous Notes* Telephone Encounter - Kelin Maradiaga [...] 01/31/2022 3:57 PM EDT Report printed from [employer] and at nurse desk for review * Telephone Encounter - Katey Stanton APRN.JONAH - 01/31/2022 3:41 PM EDT Obtain ER records please so can address the question posed * Telephone Encounter - Sylvia Keith LPN - 01/31/2022 3:11 PM EDT Pt called and states she was to [facility] ER on 01-26-22 with flushing in the chest and short of breath. Pt states she just saw her grant manager and he told her the lab work showed elevated thyroid at 6.39.Pt states she feel warm and tired also. Pt asking if there is something she should be doing regarding her thyroid. Pt scheduled for a ER follow up visit 02/07/22. Please advise pt. Sylvia Keith LPN documented in this encounterMer[facility]05-09-2022 Miscellaneous Notes* Telephone Encounter - Jake Boyle MD - 11/08/2021 5:06 PM EDT Call patient results of polypectomy. It was a hyperplastic polyp. Her last 2 colonoscopies were hyperplastic polyps. She is noted on colonoscopy for 10 years as we discussed. I discussed the fact that since she will be 81 standard recommendations not from colonoscopy but my opinion is if you are [facility] and physiologically given at 72 colonoscopy for screening purposes is reasonable. documented in this encounterMer[facility]05-09-2022 Miscellaneous Notes* Telephone Encounter - Mariama Abernathy LPN - 11/08/2021 4:50 PM EDT This encounter was opened in error. @CCFPPLOCNSCANCEL@ documented in this encounterMercy Health St. [facility]05-03-2022 Nurse Note* Aurea Gonzalez RN - 11/02/2021 9:47 AM EDT VITALS:Blood pressure 142/68 & pulse 79, from last office visit to compare for preanesthesia values before today. * Aurea Gonzalez RN - 11/02/2021 9:25 AM EDT Abdomen soft non-distended. Will continue to monitor. documented in this encounterMer[facility]05-03-2022 History and physical note * Jake Boyle [...] entered by the nurse and reviewed by al Nursing Notes: Mariama Abernathy LPN 08/19/2021 12:10 [...] completed. Jake Boyle MD documented in this encounterMer[facility]02-17-2022 Miscellaneous Notes* Telephone Encounter - Jaqui Mccray - 08/19/2021 1:54 PM EST 11/02/[address] Boyle with Miralax/dulcolax prep at the [facility] Left side Stereotatic breast bx with Dr Penn 09-03-2021 arrival time 1230 documented in this encounterMer[facility]. [facility]04-01-2018 Evaluation note* Diagnosis Onset Date Resolution Status Essential (primary) hypertension chronic Paroxysmal atrial fibrillation October, chronic Mammographic microcalcification acute [facility] Work Phone: 1(114) 731-600304-01-2018 Evaluation note* Diagnosis Onset Date Resolution Status Sinus bradycardia acute Essential (primary) hypertension chronic Paroxysmal atrial fibrillation October, [facility] Work Phone: 1(735) 824-922204-01-2018 Evaluation note* Diagnosis Onset Date Resolution Status Admit Date Paroxysmal atrial flutter October, chronic January 10, 2025 9:23am Paroxysmal atrial flutter October, chronic January 13, 2025 10:24am Paroxysmal atrial fibrillation October, legal department manager richy January 31, 2025 1:33pm Paroxysmal atrial flutter October, chronic January 31, 2025 1:33pm [facility] [employer] Work Phone: 1(451) 582-829910-25-2010 History of Past illness Narrative* Problem Noted [...] of this encounter (statuses as of 11/03/2021) [facility] History of Past illness Narrative* Problem Noted [...] of this encounter (statuses as of 11/08/2021) [facility] History of Past illness Narrative* Problem Noted [...] of this encounter (statuses as of 12/28/2021) [facility] History of Past illness Narrative* Problem Noted [...] of this encounter (statuses as of 12/29/2021) [facility] History of Past illness Narrative* Problem Noted [...] of this encounter (statuses as of 02/02/2022) [facility] of Past illness Narrative* Problem Noted [...] of this encounter (statuses as of 02/07/2022) [facility] of Past illness Narrative* Problem Noted [...] of this encounter (statuses as of 03/16/2022) [facility] of Past illness Narrative* Problem Noted [...] of this encounter (statuses as of 04/24/2022) [facility] of Past illness Narrative* Problem Noted [...] of this encounter (statuses as of 05/19/2022) [facility] of Past illness Narrative* Problem Noted [...] of this encounter (statuses as of 06/27/2022) [facility] of Past illness Narrative* Problem Noted [...] of this encounter (statuses as of 07/09/2022) [facility] of Past illness Narrative* Problem Noted [...] of this encounter (statuses as of 07/25/2022) [facility] of Past illness Narrative* Problem Noted [...] of this encounter (statuses as of 08/22/2022) [facility] of [facility] Narrative* Problem Noted [...] of this encounter (statuses as of 09/01/2022) [facility] of [facility] illness Narrative* Problem Noted [...] of this encounter (statuses as of 09/07/2022) [facility] of Past illness Narrative* Problem Noted [...] of this encounter (statuses as of 09/22/2022) [facility] of [facility] illness Narrative* Problem Noted [...] of this encounter (statuses as of 09/22/2022) [facility] of Past illness Narrative* Problem Noted [...] of this encounter (statuses as of 11/11/2022) [facility] illness Narrative* Problem Noted [...] of this encounter (statuses as of 11/15/2022) [facility] illness Narrative* Problem Noted [...] of this encounter (statuses as of 12/13/2022) [facility] Narrative* Problem Noted [...] of this encounter (statuses as of 12/21/2022) [facility] illness Narrative* Problem Noted [...] of this encounter (statuses as of 12/22/2022) [facility] Narrative* Problem Noted [...] of this encounter (statuses as of 05/07/2023) [facility] of Past illness Narrative* Problem Noted [...] of this encounter (statuses as of 08/31/2023) [facility] note* Diagnosis Personal history of colonic polyps [facility]* Diagnosis OPENED IN ERROR- Primary To allow closing an encounter opened in error (used in SmartSet) documented in this [facility] noteNo assessment information availableWAvita Health [facility] Work Phone: Evaluation note* Diagnosis Thyroid cyst- Primary Cyst of thyroid Elevated TSH Nonspecific abnormal results of thyroid function study documented [facility]* Diagnosis Paroxysmal atrial fibrillation (HCC)- Primary Atrial fibrillation Palpitations Elevated TSH Nonspecific abnormal results of thyroid function study documented [facility]* Diagnosis Mammographic microcalcification documented in this encounter [facility]* Diagnosis Elevated TSH- Primary Nonspecific abnormal results of thyroid function study Paroxysmal atrial fibrillation (HCC) Atrial fibrillation Hot flashes Symptomatic menopausal or female climacteric states Vitamin D deficiency Unspecified vitamin D deficiency Essential hypertension Unspecified essential hypertension Encounter for long-term current use of medication [facility] Diagnosis Psychophysiological insomnia Persistent disorder of initiating or maintaining sleep [facility] Diagnosis COVID-19 virus infection- Primary [facility] Diagnosis Psychophysiological insomnia- Primary Persistent disorder of initiating or maintaining sleep Essential hypertension Unspecified essential hypertension Elevated TSH Nonspecific abnormal results of thyroid function study Paroxysmal atrial fibrillation (HCC) Atrial fibrillation Vitamin D deficiency Unspecified vitamin D deficiency Generalized anxiety disorder Encounter for long-term current use of medication Encounter for screening mammogram for breast cancer [facility] Diagnosis Elevated TSH- Primary Nonspecific abnormal results of thyroid function study Essential hypertension Unspecified essential hypertension Paroxysmal atrial fibrillation (HCC) Atrial fibrillation [facility] Diagnosis 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 documented in this encounter [facility] note* Diagnosis Psychophysiological insomnia Persistent disorder of initiating or maintaining sleep documented in this encounter [facility] note* Diagnosis 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 documented in this encounter [facility] note* Diagnosis Encounter for screening mammogram for breast cancer documented in this encounter [facility] note* Diagnosis Encounter for therapeutic drug monitoring- Primary Vitamin D deficiency Unspecified vitamin D deficiency Dyslipidemia Other and unspecified hyperlipidemia documented in this encounter [facility] note* Diagnosis Essential hypertension- Primary Unspecified essential hypertension Ankle edema, bilateral Psychophysiological insomnia Persistent disorder of initiating or maintaining sleep Vitamin D deficiency Unspecified vitamin D deficiency Encounter for immunization Need for other specified prophylactic vaccination against single bacterial disease Encounter for long-term current use of medication documented in this encounter [facility] note* Diagnosis Psychophysiological insomnia Persistent disorder of initiating or maintaining sleep documented in this encounter [facility] note* Diagnosis Medicare annual wellness visit, [...] for breast cancer documented in this encounter [facility] note* Diagnosis COVID- Primary documented in this encounter [facility] note* Diagnosis Encounter for screening mammogram for breast cancer documented in this encounter [facility] note* Diagnosis Psychophysiological insomnia Persistent disorder of initiating or maintaining sleep documented in this encounter [facility] note* Diagnosis Psychophysiological insomnia- Primary Persistent disorder of initiating or maintaining sleep Paroxysmal atrial fibrillation (HCC) Atrial fibrillation Hypercholesterolemia Pure hypercholesterolemia Chronic pain of right knee Primary osteoarthritis of right knee Primary localized osteoarthrosis, lower leg Essential hypertension Unspecified essential hypertension Vitamin D deficiency Unspecified vitamin D deficiency documented in this encounter [facility] Discharge instructions Additional Instructions You cardioverted with synchronized 150 J. EKG back in sinus rhythm rate in the 50s. Continue home medications. Follow-up with Dr. Thapa.[facility] Work Phone: Hospital Discharge instructionsAmbulatory Orders* Electrophysiology Location: None Selected [facility] Work Phone: Reason for referral (narrative)* Outpatient Procedure (Routine) - Closed Specialty Diagnoses / Procedures Referred By Tino t Referred To Contact [facility] Diagnoses Personal history of colonic polyps Procedures COLONOSCOPY SCREENING COLONOSCOPY FLX DX W/COLLJ SPEC WHEN PFRMD Jake Boyle MD [address] [place] [address] [facility] [address] [place] [address] Referral ID Status Reason Start Date Expiration Date V isits Requested Visits Authorized [id number] Closed Auto-Generate d Referral 08/19/2021 08/19/2022 1 1 [facility] for referral (narrative)* Diagnostic Procedure Only (Routine) - Pending Review Specialty Diagnoses / Procedures Referred By Tino simons Referred To Contact [facility] Diagnoses Thyroid cyst Elevated TSH Procedures US THYROID/PARATHYROID US SOFT TISSUE HEAD & NECK REAL TIME IMGE Katey Ruiz APRN.CNS [address] [place] [address] [facility] Referral ID Status Reason Start Date Expiration Date Visits Requested Visits Authorized [id number] Pending Review Auto-Generat ed Referral 01/31/2022 03/02/2023 1 1 [facility] for referral (narrative)* Diagnostic Procedure Only (Routine) - Closed Specialty Diagnoses / Procedures Referred By Tino t Referred To Contact [facility] Diagnoses Mammographic microcalcification Procedures [facility] DIAGNOSTIC LT DIAGNOSTIC MAMMOGRAPHY COMPUTER-AIDED DETCJ Jf Sierra MD [address] [place] [address] [facility] [address] [place] [address] Referral ID Status Reason Start Date Expiration Date V isits Requested Visits Authorized [id number] Closed Auto-Generate d Referral 10/08/2021 10/27/2022 1 1 [facility] for referral (narrative)* Diagnostic Procedure Only (Routine) - Authorized Specialty Diagnoses / Procedures Referred By Tino simons Referred To Contact [facility] Diagnoses Encounter for screening mammogram for breast cancer Procedures LOUIS SCREENING SCREENING MAMMOGRAPHY BI 2-VIEW BREAST INC Liliam Villavicencio MD [address] [place] [address] [facility] [address] [place] [address] Referral ID Status Reason Start Date Expiration Date Visits Requested Visits Authorized [id number] Authorized Auto-Generat ed Referral 07/22/2023 1 1 [facility] for referral (narrative)* Diagnostic Procedure Only (Routine) - Closed Specialty Diagnoses / Procedures Referred By Tino simons Referred To Contact [facility] Diagnoses Encounter for screening mammogram for breast cancer Procedures [facility]OUIS SCREENING SCREENING MAMMOGRAPHY BI 2-VIEW BREAST INC Liliam Villavicencio MD [facility] [place] [address] [facility] [address] [place] [address] Referral ID Status Reason Start Date Expiration Date V isits Requested Visits Authorized [id number] Closed Auto-Generate d Referral 06/22/2022 07/22/2023 1 1 [facility] for referral (narrative)* Diagnostic Procedure Only (Routine) - Authorized Specialty Diagnoses / Procedures Referred By Tino simons Referred To Contact [facility] Diagnoses Encounter for screening mammogram for breast cancer Procedures LOUIS SCREENING W BRITTANEY SCREENING DIGITAL BREAST TOMOSYNTHESIS BI SCREENING MAMMOGRAPHY BI 2-VIEW BREAST INC Liliam Villavicencio MD [address] [place] [address] [facility] [address] [place] [address] Referral ID Status Reason Start Date Expiration Date Visits Requested Visits Authorized [id number] Authorized Auto-Generat ed Referral 07/14/2025 1 1 [facility] for referral (narrative)No reason for referral information [facility]WA[facility] Work Phone: Reason for visit Narrative* Outpatient Procedure (Routine) - Closed Specialty Diagnoses / Procedures Referred By Tino t Referred To Contact [facility] Diagnoses Personal history of colonic polyps Procedures COLONOSCOPY SCREENING COLONOSCOPY FLX DX W/COLLJ SPEC WHEN Jake Correa MD [address] [place] [address] [facility] [address] [place] [id number] Referral ID Status Reason Start Date Expiration Date V isits Requested Visits Authorized [id number] Closed Auto-Generate d Referral 08/19/2021 08/19/2022 1 1 [facility] for visit Narrative* Diagnostic Procedure Only (Routine) - Closed Specialty Diagnoses / Procedures Referred By Tino t Referred To Contact [facility] Diagnoses Mammographic microcalcification Procedures [facility] DIAGNOSTIC LT DIAGNOSTIC MAMMOGRAPHY COMPUTER-AIDED DETCJ Jf Sierra MD [address] [place] [address] [facility] [address] [place] [id number] Referral ID Status Reason Start Date Expiration Date V isits Requested Visits Authorized [id number] Closed Auto-Generate d Referral 10/08/2021 10/27/2022 1 1 [facility] for visit Narrative* Diagnostic Procedure Only (Routine) - Closed Specialty Diagnoses / Procedures Referred By Tino t Referred To Contact [facility] Diagnoses Encounter for screening mammogram for breast cancer Procedures LOUIS SCREENING SCREENING MAMMOGRAPHY BI 2-VIEW BREAST INC CAD Liliam Alaniz MD [address] [place] [address] [facility] [address] [place] [address] Referral ID Status Reason Start Date Expiration Date V isits Requested Visits Authorized [id number] Closed Auto-Generate d Referral 06/22/2022 07/22/2023 [address] [facility] Diagnostic Procedure Only (Routine) - Closed Specialty Diagnoses / Procedures Referred By Tino t Referred To Contact [facility] Diagnoses Encounter for screening mammogram for breast cancer Procedures LOUIS SCREENING W BRITTANEY SCREENING DIGITAL BREAST TOMOSYNTHESIS BI SCREENING MAMMOGRAPHY BI 2-VIEW BREAST INC Liliam Villavicencio MD [address] [place] [address] Phone: tel: fax: [facility] [address] [place] [address] Referral ID Status Reason Start Date Expiration Date V isits Requested Visits Authorized [id number] Closed Auto-Generate d Referral 06/14/2024 07/14/2025 [address] [facility] Chief Complaint and Reason for Visit Chief [...] Atrial fibrillation January 13, 2025 1:12 pm RFID SPECIALIST TO SEE/PER SP January 15, 2025 10:0 9am Chief Complaint Admit Date 6 M FU October 04, 2024 1:39 pm a fib, see clinical notes January 10 9:23am AFIB January 13, 2025 10:2 4am Atrial fibrillation January 13, 2025 12:1 2pm Atrial fibrillation January 13, 2025 1:12 pm RFID SPECIALIST TO SEE/PER SP January 15, 2025 10:0 9am 1 WK DCCV January 20, 2025 1:06 pm Chief Complaint Admit Date 6 M FU October 04, 2024 1:39 pm a fib, see clinical notes January 10 9:23am AFIB January 13, 2025 10:2 4am Atrial fibrillation January 13, 2025 12:1 2pm Atrial fibrillation January 13, 2025 1:12 pm RFID SPECIALIST TO SEE/PER SP January 15, 2025 10:0 9am 1 WK DCCV January 20, 2025 1:06 pm Blood pressure check January 31, 2025 1: 33pm Chief Complaint Admit Date a fib, see clinical notes January 10 9:23am AFIB January 13, 2025 10:2 4am Atrial fibrillation January 13, 2025 12:1 2pm Atrial fibrillation January 13, 2025 1:12 pm RFID SPECIALIST TO SEE/PER SP January 15, 2025 10:0 [...] Yes February 06, 2021 5:12pm Power of Beck Tender Yes February 06 5:12pm Documents on File Type Date Recorded Patient Contract Clerk Expl 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 Advance Directive(s) 11/02/2021 7:31 AM Advance Directive(s) 09/22/2016 10:45 AM Advance Directive(s) 09/14/2016 3:12 PM Advance Directive(s) 04/10/2013 2:33 PM Advance Directive(s) 04/10/2013 2:34 PM Advance Directive(s) 05/10/2010 9:21 PM Documents on File Type Date Recorded Patient Contract Clerk Expl anation Advance Directive(s) 11/02/2021 7:31 AM Advance Directive(s) 09/22/2016 10:45 AM Advance Directive(s) 09/14/2016 3:12 PM Advance Directive(s) 04/10/2013 2:33 PM Advance Directive(s) 04/10/2013 2:34 PM Advance Directive(s) 05/10/2010 9:21 PM Advance Directive Response Recorded Date/ Time Advance Directives Yes November 11 10:42am Living Will Yes January 26, 2022 10:40pm Power of Beck Tender Yes January 26 10:40pm Name of Medical Power of Beck Tender January 26, 2022 10:40pm Documents on File Type Date Recorded Patient Contract Clerk Expl anation Advance Directive(s) 04/10/2013 2:33 PM Advance Directive(s) 04/10/2013 2:34 PM Advance Directive(s) 05/10/2010 9:21 PM Documents on File Type Date Recorded Patient Contract Clerk Expl anation Advance Directive(s) 04/10/2013 2:33 PM Advance Directive(s) 04/10/2013 2:34 PM Advance Directive(s) 05/10/2010 9:21 PM Advance Directive Response Recorded Date/ Time Advance Directives Yes November 11 10:42am Living Will Yes January 26, 2022 10:40pm Power of Beck Tender Yes January 26 10:40pm Advance Directive Response Recorded Date/ Time Name of Medical Power of Beck Tender JOZEF OHARA April 13, 2023 12:53pm Advance Directives Yes November 11 10:42am Living Will Yes April 13 12:53pm Power of Beck Tender Yes April 13, 2023 12:53pm Documents on File Type Date Recorded Patient Contract Clerk Expl anation Advance Directive(s) 04/10/2013 2:34 PM Advance Directive(s) 04/10/2013 2:33 PM Advance Directive(s) 05/10/2010 9:21 PM Documents on File Type Date Recorded Patient Contract Clerk Expl anation Advance Directive(s) 04/10/2013 2:34 PM Advance Directive(s) 04/10/2013 2:33 PM Advance Directive(s) 05/10/2010 9:21 PM Advance Directive Response Recorded Date/ Time Advance Directives Yes November 11 10:42am Living Will Yes April 13 12:53pm Power of Beck Tender Yes April 13, 2023 12:53pm Advance Directive Response Recorded Date/ Time Living Will Yes September 16, 2024 2:56pm Power of Beck Tender Yes September 16 2:56pm Name of Medical Power of Beck Tender Jozef chadwick September 16, 2024 2:56pm Advance Directives Yes November 11 10:42am Advance Directive Response Recorded Date/ Time Living Will Yes April 13 12:53pm Do you have a Healthcare Pow er of Beck Tender? Yes April 13, 2023 12:53pm Living Will Yes September 16, 2024 2:56pm Do you have a Healthcare Pow er of Beck Tender? Yes September 16, 2024 2:56pm Name of Medical Power of Beck Tender Jozef chadwick September 16, 2024 2:56pm Advance Directives Yes November 11 10:42am Advance Directive Response Recorded Date/ Time Living Will Yes April 13 12:53pm Do you have a Healthcare Pow er of Beck Tender? Yes April 13, 2023 12:53pm Living Will Yes September 16, 2024 2:56pm Do you have a Healthcare Pow er of Beck Tender? Yes September 16, 2024 2:56pm Name of Medical Power of Beck Tender Jozef chadwick September 16, 2024 2:56pm Advance Directives on File Yes January 13, 2025 11:13am Living Will Yes January 13, 2025 11:13am Do you have a Healthcare Pow er of Beck Tender? Yes January 13, 2025 11:13am Name of Medical Power of Beck Tender osvaldo anaya n January 13, 2025 11:13am Advance Directives Yes January 13 11:13am Advance Directive Response Recorded Date/ Time Living Will Yes April 13 12:53pm Do you have a Healthcare Pow er of Beck Tender? Yes April 13, 2023 12:53pm Advance Directives on File Yes January 13, 2025 11:13am Living Will Yes January 13, 2025 11:13am Do you have a Healthcare Pow er of Beck Tender? Yes January 13, 2025 11:13am Name of Medical Power of Beck Tender osvaldo anaya n January 13, 2025 11:13am Advance Directives Yes January 13 11:13am Advance Directive Response Recorded Date/ Time Advance Directives on File Yes January 13, 2025 11:13am Living Will Yes January 13, 2025 11:13am Do you have a Healthcare Power of Beck Tender? Yes January 13, 2025 11:13am Name of Medical Power of Beck Tender osvaldo anaya n January 13, 2025 11:13am [...] or prosecute any alcohol or drug abuse patient.[facility] the event this information is protected by the Federal Confidentiality of Alcohol and Drug Abuse Patient Records regulations: The Federal rules restrict any use of the information to criminally investigate or prosecute any alcohol or drug abuse patient.[facility] the event this information is protected by the Federal Confidentiality of Alcohol and Drug Abuse Patient Records regulations: The Federal rules restrict any use of the information to criminally investigate or prosecute any alcohol or drug abuse patient.[facility] the event this information is protected by the Federal Confidentiality of Alcohol and Drug Abuse Patient Records regulations: The Federal rules restrict any use of the information to criminally investigate or prosecute any alcohol or drug abuse patient.[facility] the event this information is protected by the Federal Confidentiality of Alcohol and Drug Abuse Patient Records regulations: The Federal rules restrict any use of the information to criminally investigate or prosecute any alcohol or drug abuse patient.[facility] the event this information is protected by the Federal Confidentiality of Alcohol and Drug Abuse Patient Records regulations: The Federal rules restrict any use of the information to criminally investigate or prosecute any alcohol or drug abuse patient.[facility] the event this information is protected by the Federal Confidentiality of Alcohol and Drug Abuse Patient Records regulations: The Federal rules restrict any use of the information to criminally investigate or prosecute any alcohol or drug abuse patient.[facility] the event this information is protected by the Federal Confidentiality of Alcohol and Drug Abuse Patient Records regulations: The Federal rules restrict any use of the information to criminally investigate or prosecute any alcohol or drug abuse patient.[facility] the event this information is protected by the Federal Confidentiality of Alcohol and Drug Abuse Patient Records regulations: The Federal rules restrict any use of the information to criminally investigate or prosecute any alcohol or drug abuse patient.[facility] the event this information is protected by the Federal Confidentiality of Alcohol and Drug Abuse Patient Records regulations: The Federal rules restrict any use of the information to criminally investigate or prosecute any alcohol or drug abuse patient.[facility] the event this information is protected by the Federal Confidentiality of Alcohol and Drug Abuse Patient Records regulations: The Federal rules restrict any use of the information to criminally investigate or prosecute any alcohol or drug abuse patient.[facility] the event this information is protected by the Federal Confidentiality of Alcohol and Drug Abuse Patient Records regulations: The Federal rules restrict any use of the information to criminally investigate or prosecute any alcohol or drug abuse patient.[facility] the event this information is protected by the Federal Confidentiality of Alcohol and Drug Abuse Patient Records regulations: The Federal rules restrict any use of the information to criminally investigate or prosecute any alcohol or drug abuse patient.[facility] the event this information is protected by the Federal Confidentiality of Alcohol and Drug Abuse Patient Records regulations: The Federal rules restrict any use of the information to criminally investigate or prosecute any alcohol or drug abuse patient.[facility] the event this information is protected by the Federal Confidentiality of Alcohol and Drug Abuse Patient Records regulations: The Federal rules restrict any use of the information to criminally investigate or prosecute any alcohol or drug abuse patient.[facility] the event this information is protected by the Federal Confidentiality of Alcohol and Drug Abuse Patient Records regulations: The Federal rules restrict any use of the information to criminally investigate or prosecute any alcohol or drug abuse patient.[facility] the event this information is protected by the Federal Confidentiality of Alcohol and Drug Abuse Patient Records regulations: The Federal rules restrict any use of the information to criminally investigate or prosecute any alcohol or drug abuse patient.[facility] the event this information is protected by the Federal Confidentiality of Alcohol and Drug Abuse Patient Records regulations: The Federal rules restrict any use of the information to criminally investigate or prosecute any alcohol or drug abuse patient.[facility] the event this information is protected by the Federal Confidentiality of Alcohol and Drug Abuse Patient Records regulations: The Federal rules restrict any use of the information to criminally investigate or prosecute any alcohol or drug abuse patient.[facility] the event this information is protected by the Federal Confidentiality of Alcohol and Drug Abuse Patient Records regulations: The Federal rules restrict any use of the information to criminally investigate or prosecute any alcohol or drug abuse patient.[facility] the event this information is protected by the Federal Confidentiality of Alcohol and Drug Abuse Patient Records regulations: The Federal rules restrict any use of the information to criminally investigate or prosecute any alcohol or drug abuse patient.[facility] the event this information is protected by the Federal Confidentiality of Alcohol and Drug Abuse Patient Records regulations: The Federal rules restrict any use of the information to criminally investigate or prosecute any alcohol or drug abuse patient.[facility] the event this information is protected by the Federal Confidentiality of Alcohol and Drug Abuse Patient Records regulations: The Federal rules restrict any use of the information to criminally investigate or prosecute any alcohol or drug abuse patient.[facility] the event this information is protected by the Federal Confidentiality of Alcohol and Drug Abuse Patient Records regulations: The Federal rules restrict any use of the information to criminally investigate or prosecute any alcohol or drug abuse patient.[facility] the event this information is protected by the Federal Confidentiality of Alcohol and Drug Abuse Patient Records regulations: The Federal rules restrict any use of the information to criminally investigate or prosecute any alcohol or drug abuse patient.[facility] the event this information is protected by the Federal Confidentiality of Alcohol and Drug Abuse Patient Records regulations: The Federal rules restrict any use of the information to criminally investigate or prosecute any alcohol or drug abuse patient.[facility] the event this information is protected by the Federal Confidentiality of Alcohol and Drug Abuse Patient Records regulations: The Federal rules restrict any use of the information to criminally investigate or prosecute any alcohol or drug abuse patient.[facility] the event this information is protected by the Federal Confidentiality of Alcohol and Drug Abuse Patient Records regulations: The Federal rules restrict any use of the information to criminally investigate or prosecute any alcohol or drug abuse patient.[facility] the event this information is protected by the Federal Confidentiality of Alcohol and Drug Abuse Patient Records regulations: The Federal rules restrict any use of the information to criminally investigate or prosecute any alcohol or drug abuse patient.[facility]In the event this information is protected by the Federal Confidentiality of Alcohol and Drug Abuse Patient Records regulations: The Federal rules restrict any use of the information to criminally investigate or prosecute any alcohol or drug abuse patient.[facility] HospitalIn the event this information is protected by the Federal Confidentiality of Alcohol and Drug Abuse Patient Records regulations: The Federal rules restrict any use of the information to criminally investigate or prosecute any alcohol or drug abuse patient.[facility] HospitalIn the event this information is protected by the Federal Confidentiality of Alcohol and Drug Abuse Patient Records regulations: The Federal rules restrict any use of the information to criminally investigate or prosecute any alcohol or drug abuse patient.[facility] HospitalIn the event this information is protected by the Federal Confidentiality of Alcohol and Drug Abuse Patient Records regulations: The Federal rules restrict any use of the information to criminally investigate or prosecute any alcohol or drug abuse patient.[facility] HospitalIn the event this information is protected by the Federal Confidentiality of Alcohol and Drug Abuse Patient Records regulations: The Federal rules restrict any use of the information to criminally investigate or prosecute any alcohol or drug abuse patient.[facility] HospitalIn the event this information is protected by the Federal Confidentiality of Alcohol and Drug Abuse Patient Records regulations: The Federal rules restrict any use of the information to criminally investigate or prosecute any alcohol or drug abuse patient.[facility] Care Teams (unrecognized sec tion and content) Engine Installer Relationship Specialty Start Date End Date Liliam Alaniz MD [address] [place] [address] PCP - General 11/08/02 Engine Installer Relationship Specialty Start Date End Date Liliam Alaniz MD [address] [place] [address] PCP - General 11/08/02 Engine Installer Relationship Specialty Start Date End Date Liliam Alaniz MD [facility] [place] [address] PCP - General 11/08/02 Engine Installer Relationship Specialty Start Date End Date Liliam Alaniz MD [address] [place] [address], [place] [address] PCP - General 11/08/02 Engine Installer Relationship Specialty Start Date End Date Liliam Alaniz MD [address] [place] [address], [place] [address] PCP - General 11/08/02 Engine Installer Relationship Specialty Start Date End Date Liliam Alaniz MD [address] [place] [address], [place] [address] PCP - General 11/08/02 Engine Installer Relationship Specialty Start Date End Date Liliam Alaniz MD [address] [place] [address], [place] [address] PCP - General 11/08/02 Engine Installer Relationship Specialty Start Date End Date Liliam Alaniz MD [address] [place] [address], [place] [address] PCP - General 11/08/02 Engine Installer Relationship Specialty Start Date End Date Liliam Alaniz MD [address] [place] [address], [place] [address] PCP - General 11/08/02 Engine Installer Relationship Specialty Start Date End Date Liliam Alaniz MD [address] [place] [address], [place] [address] PCP - General 11/08/02 Engine Installer Relationship Specialty Start Date End Date Liliam Alaniz MD [address] [place] [address], [place] [address] PCP - General 11/08/02 Engine Installer Relationship Specialty Start Date End Date Liliam Alaniz MD [address] [place] [address] PCP - General 11/08/02 Team Status: Active Member Role Status Dates Dr. Liliam Alaniz MD Family Provider Active Dr. Liliam Alaniz MD Primary Care Provider Active Team Status: Inactive Member Role Status Dates Dr. Liliam Alaniz MD Primary Care Provider, Referr ing Provider Active Rea Campbell CARRIER OPERATOR, CARRIER OPERATOR-C Attending Provider Active Team Status: Inactive Member Role Status Dates Dr. Liliam Alaniz MD Primary Care Provider Active Rea Campbell CARRIER OPERATOR, CARRIER OPERATOR-C Attending Provider, Referring P geovanna Active Team Status: Inactive Member Role Status Dates Dr. Liliam Alaniz MD Primary Care Provider Active Dr. Jf Gallegos DO Emergency Provider Active Engine Installer Relationship Specialty Start Date End Date Liliam Alaniz MD [address] [place] [address] PCP - General 11/08/02 Engine Installer Relationship Specialty Start Date End Date Liliam Alaniz MD [address] [place] [address] PCP - General 11/08/02 Team Status: Inactive Member Role Status Dates Dr. Liliam Alaniz MD Primary Care Provider, Referr ing Provider Active Dr. Sterling Thapa MD Attending Provider Active Team Status: Inactive Member Role Status Dates Dr. Liliam Alaniz MD Primary Care Provider Active Dr. Sterling Thapa MD Attending Provider, Referring Pro vider Active Engine Installer Relationship Specialty Start Date End Date Liliam Alaniz MD [address] [place] [address] PCP - General 11/08/02 Engine Installer Relationship Specialty Start Date End Date Liliam Alaniz MD [address] [place] [address] PCP - General 11/08/02 Engine Installer Relationship Specialty Start Date End Date Liliam Alaniz MD [address] [place] [address] PCP - General 11/08/02 Engine Installer Relationship Specialty Start Date End Date Liliam Alaniz MD [address] [place] [address] PCP - General 11/08/02 Katey Stanton, READING EFFICIENCY COURSE DIRECTOR.SUPERVISOR [employer]URLING [employer] JOINING [address] [place] [address] Area Director Internal Medicine 06/10/24 Barbra Daniels READING EFFICIENCY COURSE DIRECTOR.LINE MANAGER [address] [place] [address] Area Director Internal Medicine 06/10/24 Engine Installer Relationship Specialty Start Date End Date Liliam Alaniz MD [address] [place] [address] PCP - General 11/08/02 Katey Stanton, READING EFFICIENCY COURSE DIRECTOR.SUPERVISOR [employer]ING [address] [place] [address] Area Director Internal Medicine 06/10/24 Barbra Daniels READING EFFICIENCY COURSE DIRECTOR.LINE MANAGER [address] [place] [address] Area Director Internal Medicine 06/10/24 Engine Installer Relationship Specialty Start Date End Date Liliam Alaniz MD [address] [facility] [place] [address] PCP - General 11/08/02 Katey Stanton, READING EFFICIENCY COURSE DIRECTOR.SUPERVISOR [employer]ING [employer] JOINING [address] [facility] [place] [address] Area Director Internal Medicine 06/10/24 Barbra Daniels READING EFFICIENCY COURSE DIRECTOR.LINE MANAGER [address] [facility] [place] [address] Area Director Internal Medicine 06/10/24 Engine Installer Relationship Specialty Start Date End Date Liliam Alaniz MD [address] [place] [address] PCP - General 11/08/02 Katey Stanton, READING EFFICIENCY COURSE DIRECTOR.SUPERVISOR [employer]ING [employer] JOINING [address] [facility] [place] [address] Area Director Internal Medicine 06/10/24 Barbra Daniels READING EFFICIENCY COURSE DIRECTOR.LINE MANAGER [address] [facility] [place] [address] Area Director Internal Medicine 06/10/24 Engine Installer Relationship Specialty Start Date End Date Liliam Alaniz MD [address] [facility] [place] [address] PCP - General 11/08/02 Katey Stanton, READING EFFICIENCY COURSE DIRECTOR.SUPERVISOR [employer]ING [employer] JOINING [address] [facility] [place] [address] Area Director Internal Medicine 06/10/24 Team Status: Active Member Role Status Dates Dr. Liliam Alaniz MD Primary Care Provider Active Team Status: Inactive Member Role Status Dates Dr. Liliam Alaniz MD Primary Care Provider Active Start: September 16, 2024 End: September 16, 2024 Dr. Liliam Alaniz MD Referring Provider Active Start: September 16, 2024 End: September 16, 2024 Jozef Carr CARRIER OPERATOR, CARRIER OPERATOR-C Attending Provider Active S tart: September 16, 2024 End: September 16, 2024 Team Status: Inactive Member Role Status Dates Dr. Liliam Alaniz MD Primary Care Provider Active Start: September 16, 2024 End: September 16, 2024 Dr. Audie Nieves DO Emergency Provider Active Start : September 16, 2024 End: September 16, 2024 Engine Installer Relationship Specialty Start Date End Date Liliam Alaniz MD [address] [place] [address] PCP - General 11/08/02 Barbra Daniels READING EFFICIENCY COURSE DIRECTOR.LINE MANAGER [address] [place] [address] Area Director Internal Medicine 09/24/24 Katey Stanton, READING EFFICIENCY COURSE DIRECTOR.SUPERVISOR [employer]URLING [employer] JOINING [address] [place] [address] Area Director Internal Medicine 11/20/24 Engine Installer Relationship Specialty Start Date End Date Liliam Alaniz MD [address] [place] [address] PCP - General 11/08/02 Katey Stanton, READING EFFICIENCY COURSE DIRECTOR.SUPERVISOR [employer]URLING [employer] JOINING [address] [place] [address] Area Director Internal Medicine 06/10/24 11/19/24 Barbra Daniels READING EFFICIENCY COURSE DIRECTOR.LINE MANAGER [address] [place] [address] [facility] Internal Medicine 09/24/24 Katey Stanton, READING EFFICIENCY COURSE DIRECTOR.SUPERVISOR [employer]URLING [employer] JOINING [address] [place], [place] [address] [facility] Internal Medicine 11/20/24 Engine Installer Relationship Specialty Start Date End Date Liliam Alaniz MD [address] [place], [place] [address] PCP - General 11/08/02 Barbra Daniels, READING EFFICIENCY COURSE DIRECTOR.LINE MANAGER [address] [place], [place] [address] [facility] Internal Medicine 09/24/24 Katye Stanton, READING EFFICIENCY COURSE DIRECTOR.SUPERVISOR [employer]URLING [employer] JOINING [address] [place], [place] [address] [facility] Internal Medicine 11/20/24 Team Status: Active Member Role/Relationship Status Dates Dr. Liliam Alaniz MD Primary Care Provider Active Team Status: Inactive Member Role/Relationship Status Dates Dr. Liliam Alaniz MD Primary Care Provider Active Start: September 16, 2024 End: September 16, 2024 Dr. Liliam Alaniz MD Referring Provider Active Start: September 16, 2024 End: September 16, 2024 Jozef Carr CARRIER OPERATOR, CARRIER OPERATOR-C Attending Provider Active S tart: September 16, [...] 13, 2025 End: January 13, 2025 Dr. Streling Thapa MD Attending Provider Active S tart: [...] 2025 End: January 31, 2025 Jozef Carr CARRIER OPERATOR, CARRIER OPERATOR-C Attending Provider Active S tart: January 31, [...] 2025 End: January 31, 2025 Jozef Carr CARRIER OPERATOR, CARRIER OPERATOR-C Attending Provider Active S tart: January 31, [...] [facility] Tuyet Golden, DO [address] [facility] [address] [place] [address] Tuyet Golden, DO [address] [place] [address] Referral ID Status Reason Start Date Expiration Date Visits Re quested Visits Authorized [id number] Closed 11/11/2022 02/09/2023 1 1 Reason Onset [...] section and content) DATE CREATED AUTHOR 12/27/2024 [facility] DATE CREATED AUTHOR AUTHOR'S ORGANIZ ATION 02/05/2025 [facility] FOR RECORDS PERTAINING TO PATIENTS WHO ARE [...]
--- NOTE | 2025-02-07 18:08 | CM.ED ---
Care Management Face to Face with patient for initial transition planning/care coordination assessment in the ED.? This curriculum writer introduced self and role at [facility]. Patient alert and oriented. Patient willing to participate in assessment and is able to answer all questions appropriately.? Care providers, pharmacy, and demographics verified. Admitting Diagnosis: atrial flutter Other diagnosis history: ?arthritis, hypertension, afib PCP: ?[facility] Specialists: ?deborah Preferred Pharmacy: [facility] in [place] Insurance: ?Medicare Prescription Benefit: ?yes Living Will/HPOA: ?both completed LNOK: Living Arrangements: ?patient lives with in a two story home, independent with ADLs and IADLs Transportation: ?patient drives DME: ?blood pressure cuff, wheelchair, cane HHC: ?has used outpatient in the past SNF/Rehab: ?none Community Resources: ?none Behavioral Health History: anxiety Patient goals: Patient wishes to discharge home, denies need for home health care at this time. Patient denies any further needs or concerns at this time. Disposition Plan: admission to acute; RN CM/SW to follow for discharge planning needs that may arise. Sally Velazquez, EVENT SALES MANAGER, MANAGER AREA
--- NOTE | 2025-02-07 18:08 | CM.ED ---
Care Management Face to Face with patient for initial transition planning/care coordination assessment in the ED.? This typewriter ribbon winder introduced self and role at [facility]. Patient alert and oriented. Patient willing to participate in assessment and is able to answer all questions appropriately.? Care providers, pharmacy, and demographics verified. Admitting Diagnosis: atrial flutter Other diagnosis history: ?arthritis, hypertension, afib PCP: ?[facility] Specialists: ?deborah Preferred Pharmacy: [facility] in [place] Insurance: ?Medicare Prescription Benefit: ?yes Living Will/HPOA: ?both completed LNOK: Living Arrangements: ?patient lives with in a two story home, independent with ADLs and IADLs Transportation: ?patient drives DME: ?blood pressure cuff, wheelchair, cane HHC: ?has used outpatient in the past SNF/Rehab: ?none Community Resources: ?none Behavioral Health History: anxiety Patient goals: Patient wishes to discharge home, denies need for home health care at this time. Patient denies any further needs or concerns at this time. Disposition Plan: admission to acute; RN CM/SW to follow for discharge planning needs that may arise. Sally Velazquez, STATION REPAIRER, PATIENT SCHEDULER
--- NOTE | 2025-02-07 18:27 | ECHOD_ITS ---
Reason For Study Reason For Study: AFLUTTER Procedure This was a 2D Doppler, Color Flow transthoracic echocardiogram. Exam performed portable in patient room. Left Ventricle Mildly dilated left ventricle. The 3D full volume ejection fraction is 35-40 %. Right Ventricle Normal right ventricle. Normal systolic function. Atria The left atrium is moderately enlarged. The right atrium is moderately enlarged. Mitral Valve The mitral valve is structurally normal. No prolapse or stenosis seen. Mild (1+) mitral valve insufficiency. Tricuspid Valve Normal tricuspid valve. Moderate (2+) tricuspid valve insufficiency. Aortic Valve Trisinus/trileaflet aortic valve. Pulmonic Valve The pulmonic valve is not well visualized. Great Vessels The aortic root is not well visualized. Pericardium/Pleural No pericardial effusion. MMode/2D Measurements & Calculations LVIDd: 4.4 cm IVSd: 0.86 cm LVOT diam: 2.0 cm LVIDs: 3.3 cm LVPWd: 0.88 cm LVOT area: 3.1 cm2 FS: 24.7 % LAV(MOD-bp): 93.2 ml LVAd ap4: 21.6 cm2 SV(MOD-sp4): 19.9 ml LAV(MOD-bp) Indexed: 52.8 ml/m2 LVLd ap4: 6.3 cm SI(MOD-sp4): 11.3 ml/m2 LAV(MOD-sp2): 89.5 ml EDV(MOD-sp4): 62.2 ml LAV(MOD-sp4): 84.2 ml EDV(sp4-el): 62.3 ml LVAs ap4: 16.7 cm2 LVLs ap4: 5.8 cm ESV(MOD-sp4): 42.3 ml ESV(sp4-el): 40.8 ml EF(MOD-sp4): 32.0 % EF(sp4-el): 34.4 % SV(sp4-el): 21.5 ml LA A4 area: 27.1 cm2 LA dimension(2D): 4.0 cm RA A4 area: 20.6 cm2 Doppler Measurements & Calculations MV E max christiano: 70.6 cm/sec Ao V2 max: 74.8 cm/sec LV V1 max: 66.5 cm/sec Ao max P.2 mmHg LV V1 max P.8 mmHg Ao V2 mean: 59.7 cm/sec LV V1 mean P.2 mmHg Ao mean P.5 mmHg LV V1 mean: 53.7 cm/sec Ao V2 VTI: 10.8 cm LV V1 VTI: 9.7 cm AV (velocity ratio): 0.89 BRUNO(I,D): 2.8 cm2 BRUNO(V,D): 2.7 cm2 SV(LVOT): 29.8 ml PA V2 max: 94.4 cm/sec TR max christiano: 327.9 cm/sec PA V2 mean: 66.4 cm/sec TR max P.0 mmHg ECHO/Echo Complete Interpretation Summary The 3D full volume ejection fraction is 35-40 %. Ordering Physician: George Nichole Referring Physician: SHOAIB PIZANO Performed By: Cindy Simon RCS
--- NOTE | 2025-02-07 18:54 | PCM.CONS.C ---
Assessment & Plan Assessment/Plan (1) Paroxysmal atrial fibrillation: (2) Essential (primary) hypertension: (3) Shortness of breath: (4) History of cardioversion: (5) Atrial flutter with rapid ventricular response: PLAN: 74-year-old patient who was seen and evaluated at the cardiology clinic today and was sent over to the ED at [facility] with atrial flutter with variable ventricular rate She had symptoms of dizziness. And noted her rate was 130s 3. And she was started in the ED on treatment with Cardizem. IV iron was sent over to the progressive care unit where patient continued to have atrial flutter with variable ventricular rate. Patient has multiple previous synchronized cardioversions for atrial flutter/A-fib Currently she been on treatment with sotalol/metoprolol in addition to anticoagulation with Xarelto. Other medical problem include history of hypertension History of depression. Cardiac care plan; Discussed the cardiac care plan with the medical team will start on amiodarone and will continue on anticoagulation. On review of the history patient is scheduled to see instructor wastewater treatment plant at [facility] In March to discuss plan of ablation. Will review her echocardiogram and we will follow-up clinically. HPI Consult Data Date of Consult: 02/07/25 HPI Narrative Reason for Consultation: Atrial flutter with variable ventricular rate HPI Narrative: WINSTON OHARA, is a [address] [facility] Medical History Dyspnea Wears glasses Post-menopausal Arthritis History of diverticulitis Former smoker History of pain when walking History of edema Normal stress echocardiogram Hx of thyroid cyst Persistent atrial fibrillation (11/02/20) Paroxysmal atrial flutter (10/2017) Paroxysmal atrial fibrillation (10/2017) Essential (primary) hypertension Single kidney Insomnia Anxiety Atrial fibrillation with RVR Home Medications ?Medication ?Instructions ?Recorded ?Last Taken ?Type fluticasone propionate 50 15.8 ml NS DAILY PRN ALLERGIES 10/19/17 02/02/21 History mcg/actuation nasal spray,suspension bismuth subsalicylate 262 mg 2 tablet PO Q30-60M PRN Diarrhea 10/08/20 02/02/21 History tablet (Pepto-Bismol) cholecalciferol (vitamin D3) 25 50 mcg PO DAILY Supplement 01/20/21 02/05/21 17:00 History mcg (1,000 unit) tablet (Vitamin D3) sertraline 25 mg tablet 25 mg PO DAILY anxiety 08/09/22 01/13/25 History acetaminophen 500 mg tablet 1,000 mg PO Q8 PRN pain 09/26/23 Unknown History zolpidem 5 mg tablet 5 mg PO QHS Sleep 09/26/23 Unknown History furosemide 40 mg tablet 40 mg PO DAILY PRN edema #30 tabs 12/04/23 Unknown Rx rivaroxaban 20 mg tablet 20 mg PO DAILY afib #90 tabs 10/04/24 01/13/25 Rx metoprolol succinate 50 mg 50 mg PO QDAY afib #90 tabs 01/31/25 Unknown Rx tablet,extended release 24 hr sotalol 80 mg tablet 80 mg PO BID heart #180 tabs 01/31/25 Unknown Rx Allergy/AdvReac Type Severity Reaction Status Date / Time flecainide Allergy Left Verified 01/10/25 09:27 Bundle Branch Block/BUE tingling/leg weakness aspirin (ASA) AdvReac ONLY HAS Verified 01/10/25 09:27 ONE KIDNEY, TOLD TO AVOID cortisone AdvReac CHEST HOT Verified 01/10/25 09:27 & WEIRD NSAIDS (Non-Steroidal AdvReac ONLY HAS Verified 01/10/25 09:27 Anti-Inflamma ONE KIDNEY, TOLD TO AVOID Family History Mother Hypertension Father Hypertension Prostate cancer Leukemia Sister vein problem DVT (deep venous thrombosis) Hypertension Surgical History History of left knee replacement Hx of cystoscopy History of cardioversion (11/11/20) History of nephrectomy History of colon surgery Hx of appendectomy Social History Smoking Status: Former smoker alcohol intake: never substance use type: does not use caffeine: Yes Type: coffee Number of servings: 4 what type of physical activity do you participate in: walking frequency: daily Physical Exam Cardio Cardio Narrative: Patient seen evaluated at bedside Still complaining of shortness of breath with palpitation satellite project site monitor showed atrial flutter with variable ventricular rate Cardiac exam S1-S2 is irregular Chest exam clear to auscultation bilaterally Examination lower extremity no lower extremity edema. Risk Stratification Risk Stratification Applicable: No Objective Data Vital Signs: Vital Signs Temp Pulse Resp BP Pulse Ox O2 Del Method 97.7 F L 105 H 14 111/66 97 Room Air 02/07/25 17:02 02/07/25 18:00 02/07/25 18:00 02/07/25 18:00 02/07/25 18:00 02/07/25 18:00 Oxygen Delivery Method Room Air Weight: 157 lb 6.561 oz Body Mass Index (BMI) 27.0 Intake & Output: Intake and Output for Last 24 Hours 02/05/25 02/06/25 02/07/25 23:59 23:59 23:59 Intake Total 4.25 / 4.25 Balance 4.25 / 4.25 Lab / Micro Data 02/07/25 14:13 02/07/25 14:13 Labs: Laboratory Results - last 24 hr 02/07/25 14:13: WBC 7.4, RBC 4.26, Hgb 13.1, Hct 39.4, MCV 92.5, MCH 30.8, MCHC 33.2, RDW Std Deviation 46.4 H, RDW Coeff of Priscilla 14.0, Plt Count 224, MPV 10.8, Immature Gran % (Auto) 0.300, Neut % (Auto) 73.7 H, Lymph % (Auto) 15.7 L, [place] % (Auto) 8.3, Eos % (Auto) 1.5, Baso % (Auto) 0.5, Absolute Neuts (auto) 5.4, Absolute Lymphs (auto) 1.16, Nucleated RBC % 0, Sodium 137, Potassium 3.9, Chloride 101, Carbon Dioxide 23.2, Anion Gap 13, BUN 28 H, Creatinine 1.03, Estim Creat Clear Calc 48.28 L, Est GFR (MDRD) Non-Af 58 L, BUN/Creatinine Ratio 27.6 H, Glucose 147 H, Calcium 9.6, Magnesium 2.2, Troponin T High Sens 12 D, TSH 2.870 02/07/25 16:15: Troponin T Hi Sens 2 Hr 8 Cardiology Labs/Tests 02/07/25 14:13: WBC 7.4, RBC 4.26, Hgb 13.1, Hct 39.4, MCV 92.5, MCH 30.8, MCHC 33.2, Plt Count 224, MPV 10.8, Immature Gran % (Auto) 0.300, Neut % (Auto) 73.7 H, Lymph % (Auto) 15.7 L, [place] % (Auto) 8.3, Eos % (Auto) 1.5, Baso % (Auto) 0.5, Absolute Neuts (auto) 5.4, Nucleated RBC % 0, Sodium 137, Potassium 3.9, Chloride 101, Carbon Dioxide 23.2, Anion Gap 13, BUN 28 H, Creatinine 1.03, Est GFR (MDRD) Non-Af 58 L, BUN/Creatinine Ratio 27.6 H, Glucose 147 H, Calcium 9.6, Magnesium 2.2 Rhythm: EKG: ECHO: Stress Test: Cardiac Cath: PCI: CT Surgery: Holter monitor: EPS: PPM: CXR: Chest CT Scan: Radiography Diagnostic Testing: Radiology Impression Chest X-Ray 02/07/25 14:50 IMPRESSION: No Acute Findings. Reading Location: [id number]
[2025-02-07] MEDS: Amiodarone 150 MG in Dextrose 5%-Water (100mL Bag) 100 ML 600 MG IV BOLUS (19:35)
[2025-02-07] MEDS: Amiodarone 360 MG in Dextrose 5% Viaflo Bag 192.8 ML 33.3 MG CONT INF (19:51)
[2025-02-07 21:20] LABS: Troponin T High Sens 4 HR 7 ng/L (<=14)
[2025-02-08] VITALS (25 sets, daily range): BP systolic 106–133; BP diastolic 69–107; PULSE 104–125; RESP 13–20; TEMP 36.8; O2SAT 89–98
[2025-02-08] MEDS: Amiodarone 360 MG in Dextrose 5% Viaflo Bag 192.8 ML 16.7 MG CONT INF ×2 (01:52→13:14)
[2025-02-08 06:35] LABS: Hematocrit 35.8 % (37-47); Hemoglobin 11.7 g/dL (12.0-15.0); Immature Granulocytes Count 0.020 X10^3/uL (0.0-0.0); Mean Corp Hgb Conc 32.7 g/dL (32-36); Mean Corpuscular Volume 93.0 fL (81-99); Mean Platelet Vol. 10.1 fl (6.2-12.0); NRBC Flagged by Analyzer 0 % (0-5); Platelet Count 183 K/mm3 (150-450); RBC Distribution Width CV 14.1 % (11.6-14.6); RBC Distribution Width SD 47.1 fl (35.1-43.9); Red Blood Count 3.85 M/mm3 (4.2-5.4); White Blood Count 7.5 K/mm3 (4.4-11.0)
[2025-02-08 07:12] LABS: Anion Gap 11 (5-15); BUN 22 mg/dL (4-19); BUN/Creat Ratio 23.8 RATIO (10-20); Calcium,Total 9.2 mg/dL (7.6-11.0); Carbon Dioxide 24.8 mmol/L (21.0-32.0); Chloride 102 mmol/L (98-108); Estimated Creatinine Clearance 52.42 ml/min (50-250); Glucose 116 mg/dL (70-99); Potassium 3.9 mmol/L (3.3-5.1)
[2025-02-08] MEDS: 0.9% Saline Lock 10 ML Syringe IV ×2 (08:18→22:57)
--- NOTE | 2025-02-08 12:19 | PCM.PROGNOTE ---
Subjective Subjective Patient seen and examined. She was admitted with a complaint of A-fib with RVR. 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 I saw her with her meds by her bedside. She still remains tachycardic. She is on amiodarone drip. She denies any chest pain, shortness of breath, dizziness or lightheadedness. Review of systems is otherwise negative. She still remains tachycardic. Objective Data Objective Data Vital Signs: Vital Signs Temp Pulse Resp BP Pulse Ox O2 Del Method 97.8 F 118 H 18 213/78 H 98 Room Air 02/07/25 20:30 02/08/25 11:33 02/08/25 11:33 02/08/25 11:33 02/08/25 11:33 02/08/25 11:33 Oxygen Delivery Method Room Air Weight: 157 lb 6.561 oz Body Mass Index (BMI) 27.0 Intake & Output: Intake and Output for Last 24 Hours 02/06/25 02/07/25 02/08/25 23:59 23:59 23:59 Intake Total 230.49 / 383.79 476.81 / 476.81 Balance 230.49 / 383.79 476.81 / 476.81 Lab / Micro Data 02/08/25 05:20 02/08/25 05:20 Labs: Laboratory Results - last 24 hr 02/07/25 14:13: WBC 7.4, RBC 4.26, Hgb 13.1, Hct 39.4, MCV 92.5, MCH 30.8, MCHC 33.2, RDW Std Deviation 46.4 H, RDW Coeff of Priscilla 14.0, Plt Count 224, MPV 10.8, Immature Gran % (Auto) 0.300, Neut % (Auto) 73.7 H, Lymph % (Auto) 15.7 L, [place] % (Auto) 8.3, Eos % (Auto) 1.5, Baso % (Auto) 0.5, Absolute Neuts (auto) 5.4, Absolute Lymphs (auto) 1.16, Nucleated RBC % 0, Sodium 137, Potassium 3.9, Chloride 101, Carbon Dioxide 23.2, Anion Gap 13, BUN 28 H, Creatinine 1.03, Estim Creat Clear Calc 48.28 L, Est GFR (MDRD) Non-Af 58 L, BUN/Creatinine Ratio 27.6 H, Glucose 147 H, Calcium 9.6, Magnesium 2.2, Troponin T High Sens 12 D, TSH 2.870 02/07/25 16:15: Troponin T Hi Sens 2 Hr 8 02/07/25 20:36: Troponin T Hi Sens 4Hr 7 02/08/25 05:20: WBC 7.5, RBC 3.85 L, Hgb 11.7 L, Hct 35.8 L, MCV 93.0, MCH 30.4, MCHC 32.7, RDW Std Deviation 47.1 H, RDW Coeff of Priscilla 14.1, Plt Count 183, MPV 10.1, Immature Gran % (Auto) 0.300, Neut % (Auto) 79.5 H, Lymph % (Auto) 12.5 L, [place] % (Auto) 6.2, Eos % (Auto) 1.2, Baso % (Auto) 0.3, Absolute Neuts (auto) 6.0, Absolute Lymphs (auto) 0.94, Nucleated RBC % 0, Sodium 138, Potassium 3.9, Chloride 102, Carbon Dioxide 24.8, Anion Gap 11, BUN 22 H, Creatinine 0.94, Estim Creat Clear Calc 52.42, Est GFR (MDRD) Non-Af 64, BUN/Creatinine Ratio 23.8 H, Glucose 116 H, Calcium 9.2 Radiography Diagnostic Testing: Radiology Impression Chest X-Ray 02/07/25 14:50 IMPRESSION: No Acute Findings. Reading Location: [facility] Physical Exam Const alert, oriented x3 and no apparent distress General Appearance: cooperative HEENT head/scalp atraumatic, moist oral mucous membranes and oropharynx normal Neck no lymphadenopathy and supple Lymph Lymphatic: no lymphadenopathy noted Resp normal respiratory effort, normal air movement and clear to auscultation bilaterally Cardio S1 normal heart sound, S2 normal heart sound and no murmurs Cardio Narrative: afib with RVR. HR is up at 110. GI normal to inspection, nondistended, normoactive bowel sounds, soft to palpation and non-tender Extremity normal capillary refill, no clubbing, cyanosis or edema and no calf tenderness General Extremity: no tenderness to palpation of joints or extremities Skin General Skin Exam: no breakdown Neuro CN's II-XII intact bilaterally and no focal motor deficits Motor Exam: general weakness Psych thought process normal and cooperative Appearance: appropriate Assessment & Plan Assessment/Plan (1) Atrial flutter with rapid ventricular response: PLAN: Plan #Atrial flutter with RVR still tachyardic, with HR in the 110s-120s on amiodarone drip. Cardiology on board management as per cardiology. on xarelto has had multiple cardioversions which have all failed. Metoprolol and sotalol on hold DVT prophylaxis: not indicated as is already on xarelto. COde status: full code # Charges/Coding Visit Charges Inpatient E&M: 91900 Subs Hosp L2
--- NOTE | 2025-02-08 15:15 | PCM.PN.CARD ---
Subjective Subjective No symptoms reported patient still in A-fib with RVR Objective Data Vital Signs: Vital Signs Temp Pulse Resp BP Pulse Ox O2 Del Method 97.8 F 116 H 18 118/87 H 94 Room Air 02/07/25 20:30 02/08/25 13:00 02/08/25 13:00 02/08/25 13:00 02/08/25 13:00 02/08/25 13:00 Oxygen Delivery Method Room Air Weight: 157 lb 6.561 oz Body Mass Index (BMI) 27.0 Intake & Output: Intake and Output for Last 24 Hours 02/06/25 02/07/25 02/08/25 23:59 23:59 23:59 Intake Total 230.49 / 383.79 504.92 / 504.92 Balance 230.49 / 383.79 504.92 / 504.92 Lab / Micro Data 02/08/25 05:20 02/08/25 05:20 Labs: Laboratory Results - last 24 hr 02/07/25 14:13: Sodium 137, Potassium 3.9, Chloride 101, Carbon Dioxide 23.2, Anion Gap 13, BUN 28 H, Creatinine 1.03, Estim Creat Clear Calc 48.28 L, Est GFR (MDRD) Non-Af 58 L, BUN/Creatinine Ratio 27.6 H, Glucose 147 H, Calcium 9.6, Magnesium 2.2, Troponin T High Sens 12 D, TSH 2.870 02/07/25 16:15: Troponin T Hi Sens 2 Hr 8 02/07/25 20:36: Troponin T Hi Sens 4Hr 7 02/08/25 05:20: WBC 7.5, RBC 3.85 L, Hgb 11.7 L, Hct 35.8 L, MCV 93.0, MCH 30.4, MCHC 32.7, RDW Std Deviation 47.1 H, RDW Coeff of Priscilla 14.1, Plt Count 183, MPV 10.1, Immature Gran % (Auto) 0.300, Neut % (Auto) 79.5 H, Lymph % (Auto) 12.5 L, [place] % (Auto) 6.2, Eos % (Auto) 1.2, Baso % (Auto) 0.3, Absolute Neuts (auto) 6.0, Absolute Lymphs (auto) 0.94, Nucleated RBC % 0, Sodium 138, Potassium 3.9, Chloride 102, Carbon Dioxide 24.8, Anion Gap 11, BUN 22 H, Creatinine 0.94, Estim Creat Clear Calc 52.42, Est GFR (MDRD) Non-Af 64, BUN/Creatinine Ratio 23.8 H, Glucose 116 H, Calcium 9.2 Cardiology Labs/Tests 02/07/25 14:13: Sodium 137, Potassium 3.9, Chloride 101, Carbon Dioxide 23.2, Anion Gap 13, BUN 28 H, Creatinine 1.03, Est GFR (MDRD) Non-Af 58 L, BUN/Creatinine Ratio 27.6 H, Glucose 147 H, Calcium 9.6, Magnesium 2.2 02/08/25 05:20: WBC 7.5, RBC 3.85 L, Hgb 11.7 L, Hct 35.8 L, MCV 93.0, MCH 30.4, MCHC 32.7, Plt Count 183, MPV 10.1, Immature Gran % (Auto) 0.300, Neut % (Auto) 79.5 H, Lymph % (Auto) 12.5 L, [place] % (Auto) 6.2, Eos % (Auto) 1.2, Baso % (Auto) 0.3, Absolute Neuts (auto) 6.0, Nucleated RBC % 0, Sodium 138, Potassium 3.9, Chloride 102, Carbon Dioxide 24.8, Anion Gap 11, BUN 22 H, Creatinine 0.94, Est GFR (MDRD) Non-Af 64, BUN/Creatinine Ratio 23.8 H, Glucose 116 H, Calcium 9.2 Rhythm: EKG: ECHO: Stress Test: Cardiac Cath: PCI: CT Surgery: Holter monitor: EPS: PPM: CXR: Chest CT Scan: Radiography Diagnostic Testing: Radiology Impression Echocardiogram 02/07/25 18:27 Interpretation Summary The 3D full volume ejection fraction is 35-40 %. Ordering Physician: George Nichole Referring Physician: SHOAIB PIZANO Performed By: Cindy Simon RCS Physical Exam Cardio Cardio Narrative: Cardiac exam S1-S2 with regular Cardiac rhythm showed A-fib with RVR Chest exam mildly diminished air entry bilateral. Assessment & Plan Assessment/Plan (1) Elevated brain natriuretic peptide (BNP) level: (2) History of cardioversion: (3) Atrial flutter with rapid ventricular response: (4) Single kidney: PLAN: Cardiac care plan recommendations; 74-year-old patient admitted with symptoms of palpitation Has atrial flutter with RVR while visiting the cardiology as an outpatient Admitted through the ED and started on amiodarone and continued on beta-magnolia He still had A-fib with RVR Echocardiographic evaluation showed moderate LV systolic dysfunction Ejection fraction in the range of 35-40% significant change from previous echocardiogram where the EF was normal She had a history of mild pulmonary hypertension with mild to moderate TR on previous echo. I discussed cardiac care plan with the nursing staff Will continue amiodarone increase the dose of beta-blockers to metoprolol 25 mg twice daily. Patient already on anticoagulation with Xarelto. To discuss guideline-directed medical therapy Added Aldactone 25 g to the current treatment To monitor electrolytes and renal function patient had a single kidney. And to discuss long-term treatment which can be set up as an outpatient including Entresto/Jardiance or Farxiga. And she is scheduled to see her EP physician at [facility] in March To discuss plan of atrial flutter/A-fib ablation Enrico Rendon MD,[facility] triage registered nurse
[2025-02-09] VITALS (29 sets, daily range): BP systolic 104–134; BP diastolic 79–99; PULSE 105–131; RESP 15–26; TEMP 36.1–36.8; O2SAT 90–97
[2025-02-09] MEDS: Amiodarone 360 MG in Dextrose 5% Viaflo Bag 192.8 ML 16.7 MG CONT INF ×2 (01:13→14:07)
[2025-02-09 06:47] LABS: Hematocrit 39.1 % (37-47); Hemoglobin 12.8 g/dL (12.0-15.0); Immature Granulocytes Count 0.040 X10^3/uL (0.0-0.0); Mean Corp Hgb Conc 32.7 g/dL (32-36); Mean Corpuscular Volume 93.5 fL (81-99); Mean Platelet Vol. 10.6 fl (6.2-12.0); NRBC Flagged by Analyzer 0 % (0-5); Platelet Count 202 K/mm3 (150-450); RBC Distribution Width CV 14.1 % (11.6-14.6); RBC Distribution Width SD 47.4 fl (35.1-43.9); Red Blood Count 4.18 M/mm3 (4.2-5.4); White Blood Count 9.3 K/mm3 (4.4-11.0)
[2025-02-09 07:03] LABS: Anion Gap 13 (5-15); BUN 20 mg/dL (4-19); BUN/Creat Ratio 21.6 RATIO (10-20); Calcium,Total 9.4 mg/dL (7.6-11.0); Carbon Dioxide 21.9 mmol/L (21.0-32.0); Chloride 102 mmol/L (98-108); Estimated Creatinine Clearance 53.56 ml/min (50-250); Glucose 120 mg/dL (70-99); Potassium 3.9 mmol/L (3.3-5.1)
--- NOTE | 2025-02-09 10:42 | PN_ITS ---
Subjective Subjective Patient seen and examined. She complained of not feeling well. Her heart rate still remains poorly controlled and is in the 120s systolic today. Review of systems is otherwise negative. Objective Data Objective Data Vital Signs: Vital Signs Temp Pulse Resp BP Pulse Ox O2 Del Method O2 Flow Rate 98.2 F 127 H 19 H 104/83 H 95 Nasal Cannula 2 02/09/25 04:00 02/09/25 10:00 02/09/25 10:00 02/09/25 10:00 02/09/25 10:00 02/09/25 10:00 02/09/25 10:00 Oxygen Flow Rate (L/min) 2 Oxygen Delivery Method Nasal Cannula Weight: 157 lb 6.561 oz Body Mass Index (BMI) 27.0 Intake & Output: Intake and Output for Last 24 Hours 02/07/25 02/08/25 02/09/25 23:59 23:59 23:59 Intake Total 230.49 / 383.79 668.02 / 884.72 383.58 / 383.58 Balance 230.49 / 383.79 668.02 / 884.72 383.58 / 383.58 Lab / Micro Data 02/09/25 05:05 02/09/25 05:05 Labs: Laboratory Results - last 24 hr 02/09/25 05:05: WBC 9.3, RBC 4.18 L, Hgb 12.8, Hct 39.1, MCV 93.5, MCH 30.6, MCHC 32.7, RDW Std Deviation 47.4 H, RDW Coeff of Priscilla 14.1, Plt Count 202, MPV 10.6, Immature Gran % (Auto) 0.400, Neut % (Auto) 82.9 H, Lymph % (Auto) 9.6 L, [place] % (Auto) 6.5, Eos % (Auto) 0.4, Baso % (Auto) 0.2, Absolute Neuts (auto) 7.7, Absolute Lymphs (auto) 0.89, Nucleated RBC % 0, Sodium 138, Potassium 3.9, Chloride 102, Carbon Dioxide 21.9, Anion Gap 13, BUN 20 H, Creatinine 0.92, Estim Creat Clear Calc 53.56, Est GFR (MDRD) Non-Af 67, BUN/Creatinine Ratio 21.6 H, Glucose 120 H, Calcium 9.4 Radiography Diagnostic Testing: Radiology Impression Echocardiogram 02/07/25 18:27 Interpretation Summary The 3D full volume ejection fraction is 35-40 %. Ordering Physician: George Nichole Referring Physician: SHOAIB PIZANO Performed By: Cindy Simon RCS Physical Exam Const alert, oriented x3 and no apparent distress General Appearance: cooperative HEENT head/scalp atraumatic, moist oral mucous membranes and oropharynx normal Eyes PERRL Neck no lymphadenopathy and supple Lymph Lymphatic: no lymphadenopathy noted Resp normal respiratory effort, normal air movement and clear to auscultation bilaterally Cardio S1 normal heart sound, S2 normal heart sound and no murmurs Cardio Narrative: afib with RVR. HR still poorly controlled. GI normal to inspection, nondistended, normoactive bowel sounds, soft to palpation and non-tender Extremity normal capillary refill, no clubbing, cyanosis or edema and no calf tenderness General Extremity: no tenderness to palpation of joints or extremities Skin General Skin Exam: no breakdown Neuro CN's II-XII intact bilaterally and no focal motor deficits Motor Exam: general weakness Psych thought process normal and cooperative Appearance: appropriate Assessment & Plan Assessment/Plan (1) Atrial flutter with rapid ventricular response: PLAN: Plan #Atrial flutter with RVR * still tachyardic, with HR in the 110s-120s * on amiodarone drip. Cardiology on board * management as per cardiology. Discussed with cardiology this morning and her line palletizer gave her 0.25mg of digoxin IV x 1 today. Cardiology will review her and determine what further adjustments to make. * on xarelto * has had multiple cardioversions which have all failed. Metoprolol and sotalol on hold * DVT prophylaxis: not indicated as is already on xarelto. COde status: full code # Charges/Coding Visit Charges Inpatient E&M: 24368 Subs Hosp L2
[2025-02-09] MEDS: Digoxin 250 MCG/ML Ampul IV (11:26)
[2025-02-09] MEDS: 0.9% Saline Lock 10 ML Syringe IV (11:27)
--- NOTE | 2025-02-09 12:30 | PN.CARD_ITS ---
Subjective Subjective Patient seen and evaluated today at bedside Comfortable no symptoms of chest pain Mild symptoms of shortness of breath. Objective Data Vital Signs: Vital Signs Temp Pulse Resp BP Pulse Ox O2 Del Method O2 Flow Rate 98.2 F 131 H 19 H 104/83 H 95 Nasal Cannula 2 02/09/25 04:00 02/09/25 11:26 02/09/25 10:00 02/09/25 10:00 02/09/25 10:00 02/09/25 10:00 02/09/25 10:00 Oxygen Flow Rate (L/min) 2 Oxygen Delivery Method Nasal Cannula Weight: 157 lb 6.561 oz Body Mass Index (BMI) 27.0 Intake & Output: Intake and Output for Last 24 Hours 02/07/25 02/08/25 02/09/25 23:59 23:59 23:59 Intake Total 230.49 / 383.79 668.02 / 884.72 383.58 / 383.58 Balance 230.49 / 383.79 668.02 / 884.72 383.58 / 383.58 Lab / Micro Data 02/09/25 05:05 02/09/25 05:05 Labs: Laboratory Results - last 24 hr 02/09/25 05:05: WBC 9.3, RBC 4.18 L, Hgb 12.8, Hct 39.1, MCV 93.5, MCH 30.6, MCHC 32.7, RDW Std Deviation 47.4 H, RDW Coeff of Priscilla 14.1, Plt Count 202, MPV 10.6, Immature Gran % (Auto) 0.400, Neut % (Auto) 82.9 H, Lymph % (Auto) 9.6 L, [place] % (Auto) 6.5, Eos % (Auto) 0.4, Baso % (Auto) 0.2, Absolute Neuts (auto) 7.7, Absolute Lymphs (auto) 0.89, Nucleated RBC % 0, Sodium 138, Potassium 3.9, Chloride 102, Carbon Dioxide 21.9, Anion Gap 13, BUN 20 H, Creatinine 0.92, Estim Creat Clear Calc 53.56, Est GFR (MDRD) Non-Af 67, BUN/Creatinine Ratio 21.6 H, Glucose 120 H, Calcium 9.4 Cardiology Labs/Tests 02/09/25 05:05: WBC 9.3, RBC 4.18 L, Hgb 12.8, Hct 39.1, MCV 93.5, MCH 30.6, MCHC 32.7, Plt Count 202, MPV 10.6, Immature Gran % (Auto) 0.400, Neut % (Auto) 82.9 H, Lymph % (Auto) 9.6 L, [place] % (Auto) 6.5, Eos % (Auto) 0.4, Baso % (Auto) 0.2, Absolute Neuts (auto) 7.7, Nucleated RBC % 0, Sodium 138, Potassium 3.9, Chloride 102, Carbon Dioxide 21.9, Anion Gap 13, BUN 20 H, Creatinine 0.92, Est GFR (MDRD) Non-Af 67, BUN/Creatinine Ratio 21.6 H, Glucose 120 H, Calcium 9.4 Rhythm: EKG: ECHO: Stress Test: Cardiac Cath: PCI: CT Surgery: Holter monitor: EPS: PPM: CXR: Chest CT Scan: Radiography Diagnostic Testing: Radiology Impression Echocardiogram 02/07/25 18:27 Interpretation Summary The 3D full volume ejection fraction is 35-40 %. Ordering Physician: George Nichole Referring Physician: SHOAIB PIZANO Performed By: Cindy Simon RCS Physical Exam Cardio Cardio Narrative: Patient seen and evaluated today at bedside Comfortable in bed Still had A-fib with better ventricular rate control Cardiac exam S1-S2 is regular Chest exam clear to auscultation bilateral Examination lower extremity no lower extremity edema. Assessment & Plan Assessment/Plan (1) Atrial flutter with rapid ventricular response: (2) History of cardioversion: (3) Elevated brain natriuretic peptide (BNP) level: (4) Shortness of breath: (5) Essential (primary) hypertension: (6) Single kidney: PLAN: Cardiac care plan recommendation; 75-year-old patient, with history of atrial flutter/A-fib for the last 7 years. Has multiple previous synchronized cardioversions x 4 And she been seen and followed by the cardiology team here at [facility] She is scheduled to see palliative care nurse to discuss possible atrial flutter ablation an appointment was given for March 29. On this admission she came with the palpitation shortness of breath evidently she was in the office and was evaluated by EKG in the office and was sent over to the ED where she was admitted for rate control. She will need to be on anticoagulation with Xarelto. And she could not respond very well to beta-magnolia sotalol/metoprolol Will start the patient on amiodarone. And will continue on the low-dose beta-magnolia metoprolol tartrate 25 twice daily and we added digoxin IV today. For better rate control Repeat echocardiogram showed reduced LV systolic function ejection fraction in the range of 35-40% With moderate LV systolic dysfunction. From cardiac standpoint we will continue rate control with the current medication and consider to DC the amiodarone IV tomorrow and start on amiodarone p.o. With the plan of follow-up with the EP for atrial flutter/A-fib ablation Enrico Rendon MD,FACC,[facility]. third rail installer
[2025-02-10] VITALS (18 sets, daily range): BP systolic 99–127; BP diastolic 59–96; PULSE 49–136; RESP 14–22; TEMP 35.6–36.8; O2SAT 90–100
[2025-02-10] MEDS: Amiodarone 360 MG in Dextrose 5% Viaflo Bag 192.8 ML 16.7 MG CONT INF (02:04)
[2025-02-10 06:05] LABS: Hematocrit 37.4 % (37-47); Hemoglobin 12.2 g/dL (12.0-15.0); Immature Granulocytes Count 0.040 X10^3/uL (0.0-0.0); Mean Corp Hgb Conc 32.6 g/dL (32-36); Mean Corpuscular Volume 93.5 fL (81-99); Mean Platelet Vol. 10.0 fl (6.2-12.0); NRBC Flagged by Analyzer 0 % (0-5); Platelet Count 181 K/mm3 (150-450); RBC Distribution Width CV 14.4 % (11.6-14.6); RBC Distribution Width SD 48.6 fl (35.1-43.9); Red Blood Count 4.00 M/mm3 (4.2-5.4); White Blood Count 8.9 K/mm3 (4.4-11.0)
[2025-02-10 06:36] LABS: Anion Gap 11 (5-15); BUN 17 mg/dL (4-19); BUN/Creat Ratio 18.1 RATIO (10-20); Calcium,Total 9.2 mg/dL (7.6-11.0); Carbon Dioxide 24.9 mmol/L (21.0-32.0); Chloride 103 mmol/L (98-108); Estimated Creatinine Clearance 52.42 ml/min (50-250); Glucose 96 mg/dL (70-99); Potassium 3.8 mmol/L (3.3-5.1)
[2025-02-10] MEDS: 0.9% Saline Lock 10 ML Syringe IV (07:36)
--- NOTE | 2025-02-10 10:30 | PCM.OP.PRO2 ---
Non-invasive Procedural Procedure Information Date of Procedure: 02/10/25 Pre-Procedure Diagnosis: Atrial fibrillation Post-Procedure Diagnosis: Same Procedure Performed:: DC cardioversion film sound coordinator: No Procedure Time Out: :14 Procedure Start Time: :16 Procedure Stop Time: :30 Special Medications: Intravenous etomidate 6 mg Description of procedure: Patient was brought to the cardiac catheterization lab in the postabsorptive nonsedated state. Patient was seen by Dr. Zuñiga of the critical care division. Anterior-posterior pads were applied. Patient was administered 6 mg of intravenous etomidate. 200 J of synchronized DC cardioversion biphasic energy were applied with prompt reversal to sinus rhythm. Premature atrial complexes were noted. Procedure findings: Successful DC cardioversion from atrial fibrillation to sinus rhythm. Plan to be to continue intravenous amiodarone temporarily Consider switching over to oral amiodarone and metoprolol.
--- NOTE | 2025-02-10 10:30 | PCM.OP.PRO2 ---
Non-invasive Procedural Procedure Information Date of Procedure: 02/10/25 Pre-Procedure Diagnosis: Atrial fibrillation Post-Procedure Diagnosis: Same Procedure Performed:: DC cardioversion end user support specialist: No Procedure Time Out: :14 Procedure Start Time: :16 Procedure Stop Time: :30 Special Medications: Intravenous etomidate 6 mg Description of procedure: Patient was brought to the cardiac catheterization lab in the postabsorptive nonsedated state. Patient was seen by Dr. Zuñiga of the critical care division. Anterior-posterior pads were applied. Patient was administered 6 mg of intravenous etomidate. 200 J of synchronized DC cardioversion biphasic energy were applied with prompt reversal to sinus rhythm. Premature atrial complexes were noted. Procedure findings: Successful DC cardioversion from atrial fibrillation to sinus rhythm. Plan to be to continue intravenous amiodarone temporarily Consider switching over to oral amiodarone and metoprolol.
--- NOTE | 2025-02-10 10:37 | PN.CARD_ITS ---
Subjective Subjective Patient seen and evaluated Objective Data Vital Signs: Vital Signs Temp Pulse Resp BP Pulse Ox O2 Del Method O2 Flow Rate 96.1 F L 113 H 14 99/79 94 Room Air 2 02/10/25 09:00 02/10/25 09:00 02/10/25 09:00 02/10/25 09:00 02/10/25 09:00 02/10/25 09:00 02/10/25 07:00 Oxygen Flow Rate (L/min) 2 Oxygen Delivery Method Room Air Weight: 157 lb 6.561 oz Body Mass Index (BMI) 27.0 Intake & Output: Intake and Output for Last 24 Hours 02/08/25 02/09/25 02/10/25 23:59 23:59 23:59 Intake Total 668.02 / 884.72 1405.25 / 1421.95 167.00 / 167.00 Output Total 3 / 3 Balance 668.02 / 884.72 1402.25 / 1418.95 167.00 / 167.00 Lab / Micro Data 02/10/25 05:17 02/10/25 05:17 Labs: Laboratory Results - last 24 hr 02/10/25 05:17: WBC 8.9, RBC 4.00 L, Hgb 12.2, Hct 37.4, MCV 93.5, MCH 30.5, MCHC 32.6, RDW Std Deviation 48.6 H, RDW Coeff of Priscilla 14.4, Plt Count 181, MPV 10.0, Immature Gran % (Auto) 0.400, Neut % (Auto) 73.4 H, Lymph % (Auto) 15.7 L, [place] % (Auto) 9.0, Eos % (Auto) 0.9, Baso % (Auto) 0.6, Absolute Neuts (auto) 6.5, Absolute Lymphs (auto) 1.40, Nucleated RBC % 0, Sodium 139, Potassium 3.8, Chloride 103, Carbon Dioxide 24.9, Anion Gap 11, BUN 17, Creatinine 0.94, Estim Creat Clear Calc 52.42, Est GFR (MDRD) Non-Af 64, BUN/Creatinine Ratio 18.1, Glucose 96, Calcium 9.2 Cardiology Labs/Tests 02/10/25 05:17: WBC 8.9, RBC 4.00 L, Hgb 12.2, Hct 37.4, MCV 93.5, MCH 30.5, MCHC 32.6, Plt Count 181, MPV 10.0, Immature Gran % (Auto) 0.400, Neut % (Auto) 73.4 H, Lymph % (Auto) 15.7 L, [place] % (Auto) 9.0, Eos % (Auto) 0.9, Baso % (Auto) 0.6, Absolute Neuts (auto) 6.5, Nucleated RBC % 0, Sodium 139, Potassium 3.8, Chloride 103, Carbon Dioxide 24.9, Anion Gap 11, BUN 17, Creatinine 0.94, Est GFR (MDRD) Non-Af 64, BUN/Creatinine Ratio 18.1, Glucose 96, Calcium 9.2 Rhythm: EKG: ECHO: Stress Test: Cardiac Cath: PCI: CT Surgery: Holter monitor: EPS: PPM: CXR: Chest CT Scan: Physical Exam Const alert, oriented x3 and no apparent distress General Appearance: cooperative HEENT hearing grossly normal bilaterally Head and Scalp: atraumatic Eyes EOMs intact bilaterally Neck General: normal visual inspection Chest inspection of chest normal and palpation of chest normal Resp normal respiratory effort Auscultation: clear to auscultation bilaterally Cardio S1 normal heart sound and S2 normal heart sound Jugular Venous Distention: JVD Rhythm: abnormal rhythm irregularly irregular GI normal to inspection, nondistended, normoactive bowel sounds Extremity normal capillary refill and no pedal edema Peripheral Pulses: Yes pulses 2+ throughout and femoral pulses present Skin no rashes or lesions noted Neuro oriented x3 and CN's II-XII intact bilaterally Psych Appearance: grossly normal and appropriate Assessment & Plan Assessment/Plan (1) Atrial flutter with rapid ventricular response: PLAN: Atrial flutter with a rapid ventricular response rate. The patient was started on intravenous amiodarone and we did attempt to DC cardioversion today and patient converted to sinus rhythm. The plan will be to try and see whether she would continue on IV amiodarone, switch over to p.o. amiodarone together with metoprolol. Eventually she will need to see supervisory training specialist was scheduled for March 25. * She will continue anticoagulation. (2) Essential (primary) hypertension: PLAN: Blood pressure appears to be under good control at this time will switch over to p.o. metoprolol 50 mg twice a day.
--- NOTE | 2025-02-10 11:03 | PCM.OP.PRO2 ---
Procedures Pulmonary Pulmonary Procedures /Diagnostic Testin Con Sedation Non-invasive Procedural Procedure Information Date of Procedure: 02/10/25 Description of procedure: CONSCIOUS SEDATION REPORT DATE OF SERVICE: February 10, 2025 BRIEF HISTORY OF PRESENT ILLNESS: The patient is a 74-year-old female currently admitted to the hospital with atrial fibrillation with RVR. The patient did undergo a prior cardioversion in December 2024, during which time, propofol was utilized to achieve an appropriate level of sedation. The patient denied any prior anesthetic complications. She is systemically anticoagulated on Xarelto. Her last surface echocardiogram demonstrated an ejection fraction of 35%. PHYSICAL EXAMINATION: VITAL SIGNS: Reviewed and were acceptable. GENERAL: The patient is a female, in no apparent distress, speaking in full sentences. HEENT: Normocephalic, atraumatic. Mucous membranes are moist and pink. Good mouth opening noted. Trachea is midline. Good neck mobility. CHEST: S1, S2 irregularly irregular. No murmurs, rubs or gallops were noted. LUNGS: Clear to auscultation bilaterally without appreciable wheezes, rales or rhonchi. ABDOMEN: Soft, nontender, nondistended. Positive bowel sounds. EXTREMITIES: There is no clubbing, cyanosis or edema. ASA Class: II DESCRIPTION OF PROCEDURE: After confirmation of informed consent, the patient's anesthesia plan was reviewed in detail. Etomidate was chosen. Risks and benefits were reviewed and the patient agreed to proceed. At 1025, the patient was given 6 mg of etomidate. The patient achieved an appropriate level of sedation and was given a 200 joule synchronized cardioversion by Dr. Thapa at the bedside. This was successful in achieving normal sinus rhythm. The patient was monitored until 1038, at which time she reached her baseline mental status and function. The patient tolerated the procedure well. COMPLICATIONS: None ESTIMATED BLOOD LOSS: None RECOMMENDATIONS: Okay to recover in usual fashion.
--- NOTE | 2025-02-10 14:35 | PCM.PROGNOTE ---
Subjective Subjective Patient seen and examined. She is due for cardioversion today. I saw her with her nurse by her bedside. She had no active complaints and review of systems otherwise negative. Heart rate was still not well-controlled. Objective Data Objective Data Vital Signs: Vital Signs Temp Pulse Resp BP Pulse Ox O2 Del Method O2 Flow Rate 96.9 F L 49 L 22 H 118/64 93 Room Air 2 02/10/25 11:59 02/10/25 14:00 02/10/25 14:00 02/10/25 14:00 02/10/25 14:00 02/10/25 14:00 02/10/25 07:00 Oxygen Flow Rate (L/min) 2 Oxygen Delivery Method Room Air Weight: 157 lb 6.561 oz Body Mass Index (BMI) 27.0 Intake & Output: Intake and Output for Last 24 Hours 02/08/25 02/09/25 02/10/25 23:59 23:59 23:59 Intake Total 668.02 / 884.72 1405.25 / 1421.95 212.93 / 212.93 Output Total 3 / 3 Balance 668.02 / 884.72 1402.25 / 1418.95 212.93 / 212.93 Lab / Micro Data 02/10/25 05:17 02/10/25 05:17 Labs: Laboratory Results - last 24 hr 02/10/25 05:17: WBC 8.9, RBC 4.00 L, Hgb 12.2, Hct 37.4, MCV 93.5, MCH 30.5, MCHC 32.6, RDW Std Deviation 48.6 H, RDW Coeff of Priscilla 14.4, Plt Count 181, MPV 10.0, Immature Gran % (Auto) 0.400, Neut % (Auto) 73.4 H, Lymph % (Auto) 15.7 L, [place] % (Auto) 9.0, Eos % (Auto) 0.9, Baso % (Auto) 0.6, Absolute Neuts (auto) 6.5, Absolute Lymphs (auto) 1.40, Nucleated RBC % 0, Sodium 139, Potassium 3.8, Chloride 103, Carbon Dioxide 24.9, Anion Gap 11, BUN 17, Creatinine 0.94, Estim Creat Clear Calc 52.42, Est GFR (MDRD) Non-Af 64, BUN/Creatinine Ratio 18.1, Glucose 96, Calcium 9.2 Physical Exam Const alert, oriented x3 and no apparent distress General Appearance: cooperative HEENT head/scalp atraumatic, moist oral mucous membranes and oropharynx normal Eyes PERRL Neck no lymphadenopathy and supple Lymph Lymphatic: no lymphadenopathy noted Resp normal respiratory effort, normal air movement and clear to auscultation bilaterally Cardio S1 normal heart sound, S2 normal heart sound and no murmurs Cardio Narrative: afib with RVR. HR still poorly controlled. GI normal to inspection, nondistended, normoactive bowel sounds, soft to palpation and non-tender Extremity normal capillary refill, no clubbing, cyanosis or edema and no calf tenderness General Extremity: no tenderness to palpation of joints or extremities Skin General Skin Exam: no breakdown Neuro CN's II-XII intact bilaterally and no focal motor deficits Motor Exam: general weakness Psych thought process normal and cooperative Appearance: appropriate Assessment & Plan Assessment/Plan (1) Atrial flutter with rapid ventricular response: PLAN: Plan #Atrial flutter with RVR still tachyardic, with HR in the 110s-120s on amiodarone drip. Cardiology on board Received digoxin yesterday. For cardioversion today by cardiology. Metoprolol increased to 100 mg per cardiology. Continue Xarelto. has had multiple cardioversions in the past DVT prophylaxis: not indicated as is already on xarelto. Code status: full code # Charges/Coding Visit Charges Inpatient E&M: 65818 Subs Hosp L2
--- NOTE | 2025-02-10 15:00 | PCM.DC.SUM ---
Providers Date of Admission: 02/07/25 Date of Discharge: 02/10/25 Primary Care Physician: Dr. Skye Caruso MD Consultations 02/07/25 18:27 Consult: Cardiology Routine Consulting Provider: Enrico Rendon Reason for Consult: aflutter w RVR EMERGENT Consult: No MD Notified: Yes Date Notified: 02/07/25 Time Notified: 16:57 Method of Notification: Verbal Reason For Visit: AFIB Diagnosis Discharge Diagnosis (1) Atrial flutter with rapid ventricular response: Status: Acute Code(s): I48.92 - Unspecified atrial flutter Plan #Atrial flutter with RVR still tachyardic, with HR in the 110s-120s on amiodarone drip. Cardiology on board Received digoxin yesterday. For cardioversion today by cardiology. Metoprolol increased to 100 mg per cardiology. Continue Xarelto. has had multiple cardioversions in the past DVT prophylaxis: not indicated as is already on xarelto. Code status: full code # Medications at Discharge Home Medications fluticasone propionate 50 mcg/actuation nasal spray,suspension 15.8 ml NS DAILY PRN ALLERGIES 10/19/17 bismuth subsalicylate 262 mg tablet (Pepto-Bismol) 2 tablet PO Q30-60M PRN Diarrhea 10/08/20 cholecalciferol (vitamin D3) 25 mcg (1,000 unit) tablet (Vitamin D3) 50 mcg PO DAILY Supplement 01/20/21 sertraline 25 mg tablet 25 mg PO DAILY anxiety 08/09/22 acetaminophen 500 mg tablet 1,000 mg PO Q8 PRN pain 09/26/23 zolpidem 5 mg tablet 5 mg PO QHS Sleep 09/26/23 furosemide 40 mg tablet 40 mg PO DAILY PRN edema #30 tabs 12/04/23 rivaroxaban 20 mg tablet 20 mg PO DAILY afib #90 tabs 10/04/24 amiodarone 200 mg tablet 200 mg PO DAILY #30 tabs 02/10/25 metoprolol tartrate 50 mg tablet 50 mg PO BID #60 tabs 02/10/25 Hospital Course Operations None Procedures 2-D Echocardiogram and Cardioversion Summary of Care Provided Minutes Spent on Discharge: 48 Hospital Course: Patient is a 74 y/o F with a PMH as outlined who was admitted via the ED On 02/10/2025 with a complaitn of dizziness. 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 She was told to go to the emergency room. She did have a history of A-fib has been poorly controlled and she had had multiple cardioversions in the past. In the ED she was noted to be in atrial flutter with RVR. She was given a bolus of Cardizem and started on Cardizem drip. She had not been tolerating sotalol 120 mg twice daily on outpatient basis so this had been decreased to 80 mg twice daily and metoprolol succinate 50 mg daily added on. She had cardioversion on January 14, 2024 but lasted only about 5 days before she went back into A-fib. On admission EKG showed atrial flutter with RVR and chest x-ray showed no acute cardiopulmonary pathology. She was admitted to be managed for atrial flutter and A-fib with RVR. She was placed on amiodarone drip and cardiology was consulted. Her heart rate still remained poorly controlled. She therefore had DC cardioversion done on 02/10/2025 by cardiology. During the admission she did receive a dose of digoxin also due to the poorly controlled blood pressure. Her metoprolol was initially increased to 100 mg daily but at time of discharge it was decreased to metoprolol tartrate 50 mg twice daily. She also was discharged on p.o. amiodarone 200 mg daily and her sotalol was discontinued. Per cardiology she is to follow-up with the EP as scheduled for evaluation for ablation. Patient seen and examined prior to discharge. She had no active complaints. Review of systems otherwise negative. Labs and vitals reviewed. Home medication reviewed and reconciled. Physical Exam Const alert, oriented x3 and no apparent distress General Appearance: cooperative and comfortable HEENT normocephalic, head/scalp atraumatic, hearing grossly normal bilaterally, moist oral mucous membranes and oropharynx normal Mouth: oral and palatal mucosa normal Eyes PERRL Neck no lymphadenopathy and supple Lymph Lymphatic: no lymphadenopathy noted Resp normal respiratory effort, normal air movement and clear to auscultation bilaterally Cardio regular rhythm, S1 normal heart sound, S2 normal heart sound and no murmurs Cardio Narrative: mild bradycardia GI normal to inspection, nondistended, normoactive bowel sounds, soft to palpation, non-tender and non-distended Extremity normal to inspection, full ROM, normal capillary refill, no clubbing, cyanosis or edema and no calf tenderness General Extremity: no tenderness to palpation of joints or extremities Skin no rashes or lesions noted General Skin Exam: no breakdown Neuro oriented x3, CN's II-XII intact bilaterally, moves all extremities and no focal motor deficits Sensorium / Orientation: awake and alert Motor Exam: strength 5/5 throughout and general weakness Psych thought process normal and cooperative Appearance: appropriate Weight / BMI Weight Weight: 157 lb 6.561 oz Body Mass Index (BMI) 27.0 ABG / Lab / Microbiology Data 02/10/25 05:17 02/10/25 05:17 Laboratory: Laboratory Results - last 24 hr 02/10/25 05:17: WBC 8.9, RBC 4.00 L, Hgb 12.2, Hct 37.4, MCV 93.5, MCH 30.5, MCHC 32.6, RDW Std Deviation 48.6 H, RDW Coeff of Priscilla 14.4, Plt Count 181, MPV 10.0, Immature Gran % (Auto) 0.400, Neut % (Auto) 73.4 H, Lymph % (Auto) 15.7 L, [place] % (Auto) 9.0, Eos % (Auto) 0.9, Baso % (Auto) 0.6, Absolute Neuts (auto) 6.5, Absolute Lymphs (auto) 1.40, Nucleated RBC % 0, Sodium 139, Potassium 3.8, Chloride 103, Carbon Dioxide 24.9, Anion Gap 11, BUN 17, Creatinine 0.94, Estim Creat Clear Calc 52.42, Est GFR (MDRD) Non-Af 64, BUN/Creatinine Ratio 18.1, Glucose 96, Calcium 9.2 D/C Instructions Discharge Activity: Return to Normal Activity Weight Bearing Status: Weight bearing as tolerated Call your doctor if you observe: Fever of 101 or Higher, Shortness of breath, Dizziness, Swelling in the ankles and Chest pain DC O2, CPAP, BIPAP Needs Home O2 Discharge instructions: No DC home with Oxygen: No Meaningful Use Info Meaningful Use Meaningful Use Diagnoses (Choose all that apply): None applicable Discharge Plan Admission Admit Date/Time: 02/07/25 16:47 Primary Reason for Your Visit: afib with RVR Attending Provider: Roxana Valerio Primary Care Provider: Skye Caruso Consulting Providers: Enrico Rendon; George Nichole Instructions Patient Instructions: AFib Dc, Cardioversion Dc Discharge Orders/Prescriptions Prescriptions: New metoprolol tartrate 50 mg tablet 50 mg PO BID Qty: 60 2RF amiodarone 200 mg tablet 200 mg PO DAILY Qty: 30 2RF Continued Pepto-Bismol 262 mg tablet 2 tablet PO Q30-60M PRN (Reason: Diarrhea) Rx Instructions: do not exceed 16 tabs per 24 hrs acetaminophen 500 mg tablet 1,000 mg PO Q8 PRN (Reason: pain) Rx Instructions: Do not take more than 3000 mg Tylenol in a 24-hour period. rivaroxaban 20 mg tablet 20 mg PO DAILY Qty: 90 3RF Patient Comments: LAST DOSE 01/28/21 zolpidem 5 mg tablet 5 mg PO QHS fluticasone propionate 9.9 ML spray,suspension 15.8 ml NS DAILY PRN (Reason: ALLERGIES) cholecalciferol (vitamin D3) [Vitamin D3] 25 mcg (1,000 unit) Tablet 50 mcg PO DAILY sertraline 25 mg tablet 25 mg PO DAILY Patient Comments: take 1 tablet by mouth once daily furosemide 40 mg tablet 40 mg PO DAILY PRN (Reason: edema) Qty: 30 11RF Discontinued metoprolol succinate 50 mg tablet extended release 24 hr 50 mg PO QDAY Qty: 90 3RF sotalol 80 mg tablet 80 mg PO BID Qty: 180 3RF Referrals / Follow Up: Sterling Thapa MD [Med Staff - Active Staff] - Within 2 Weeks Skye Caruso MD [Primary Care Provider] - Within 1 Week Disposition Disposition (needs filled in before D/C Order can be placed): Home, Self Care Charges/Coding Visit Charges Inpatient E&M: 67633 Disch Hosp >30min
--- NOTE | 2025-02-10 15:11 | CASEMGMT ---
Patient has order for discharge. RN CM in to discuss needs at discharge. Patient denies needs or help at discharge. Patient had no further questions or concerns.
--- NOTE | 2025-02-10 16:58 | PHA.DC_ITS ---
Pharmacy [facility] Counseling Pharmacy Service has performed discharge medication reconciliation and counseling for this patient. 1. AMIODARONE 200MG PO DAILY 2. METOPROLOL SUCCINATE 50MG DAILY CHANGED TO METOPROLOL TARTRATE 50MG PO BID 3. STOP SOTALOL The patient's discharge medication list was reviewed for discrepancies and discrepancies were resolved. The patient was counseled on the following discharge medications and changes in medications for homegoing were reviewed. The Reason for Use, instructions for use, and potential side effects were review ed for all new medications. The patient's questions regarding all of their medications were answered. The patient was able to verbally demonstrate an understanding of their discharge medications. Medications at Discharge Home Medications fluticasone propionate 50 mcg/actuation nasal spray,suspension 15.8 ml NS DAILY PRN ALLERGIES 10/19/17 bismuth subsalicylate 262 mg tablet (Pepto-Bismol) 2 tablet PO Q30-60M PRN Diarrhea 10/08/20 cholecalciferol (vitamin D3) 25 mcg (1,000 unit) tablet (Vitamin D3) 50 mcg PO DAILY Supplement 01/20/21 sertraline 25 mg tablet 25 mg PO DAILY anxiety 08/09/22 acetaminophen 500 mg tablet 1,000 mg PO Q8 PRN pain 09/26/23 zolpidem 5 mg tablet 5 mg PO QHS Sleep 09/26/23 furosemide 40 mg tablet 40 mg PO DAILY PRN edema #30 tabs 12/04/23 rivaroxaban 20 mg tablet 20 mg PO DAILY afib #90 tabs 10/04/24 amiodarone 200 mg tablet 200 mg PO DAILY #30 tabs 02/10/25 metoprolol tartrate 50 mg tablet 50 mg PO BID #60 tabs 02/10/25
== END 2025-02-10 16:08 | disposition home or self-care (01) | DRG 310 ==
LOC: ED 17:02 → PCU 17:02
PROVIDERS: Physician Assistant; Emergency Provider Emergency Medicine; PCP Internal Medicine; Visit Provider Student in an Organized Health Care Education/Training Program
DX: I48.92 Unspecified atrial flutter (principal); F41.9 Anxiety disorder, unspecified; I10 Essential (primary) hypertension; I48.0 Paroxysmal atrial fibrillation; G47.10 Hypersomnia, unspecified; Z90.5 Acquired absence of kidney; Z79.01 Long term (current) use of anticoagulants; Z87.19 Personal history of other diseases of the digestive system; Z87.891 Personal history of nicotine dependence; Z79.899 Other long term (current) drug therapy
CPT/HCPCS: 36415; 71045; 80048; 83735; 84443; 84484; 85025; 92960; 93005; 93306; 99285; Q9957; A4216

== ENCOUNTER → 2025-03-11 | Outpatient (CLI) | payer MEDICARE, BC, SELFPAY ==
[2025-03-11 13:56] LABS: Anion Gap 12 (5-15); BUN 15 mg/dL (4-19); BUN/Creat Ratio 14.4 RATIO (10-20); Calcium,Total 9.4 mg/dL (7.6-11.0); Carbon Dioxide 22.9 mmol/L (21.0-32.0); Chloride 106 mmol/L (98-108); Glucose 132 mg/dL (70-99); Potassium 4.9 mmol/L (3.3-5.1)
== END | disposition home or self-care (01) ==
LOC: LAB 12:47
PROVIDERS: PCP Internal Medicine; Referring Provider Physician Assistant Medical; Visit Provider Physician Assistant Medical
DX: I51.9 Heart disease, unspecified (principal)
CPT/HCPCS: 36415; 80048

== ENCOUNTER → 2025-03-31 | Outpatient (CLI) | payer MEDICARE, BC, SELFPAY ==
--- OUTSIDE RECORDS SUMMARY | 2025-03-24 13:19 | XMS RPT_ITS ---
Author Name Auto Generated Organization [facility] Care Team Providers Care Grinder Tender Name Role Phone TALAMPAS, LILIAM D Primary Care Unavailable TALAMPAS, LILIAM D Attending Unavailable TALAMPAS, LILIAM D Referring Unavailable TALAMPAS, [...] Unavailable TALAMPAS, LILIAM D Primary Care Unavailable HATTIE GARCIA Attending Unavailable TALAMPAS, LILIAM D Primary Care Unavailable MIKAELA HUYNH Attending Unavailable TEOFILO ROSALES Referring Unavai lable PROBLEMS DATE TYPE CONDITION / CODE ATTENDING STATUS [facility] 03/23/2025 Active Atrial flutter, unspecified type (HCC) / I48.92(ICD-10) MIKAELA HUYNH Active [facility] 03/23/2025 Active Anticoagulant lo ng-term use / Z79.01(ICD-10) MIKAELA HUYNH Active [facility] 03/23/2025 Active At risk for stro ke / Z91.89(ICD-10) MIKAELA HUYNH Active [facility] 03/23/2025 Active custodial curren t use of amiodarone / Z79.899(ICD-10) MIKAELA HUYNH Active [facility] 03/23/2025 Active 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 / Z79.899(ICD-10) MIKAELA HUYNH Active [facility] 03/23/2025 Active Persistent atria l fibrillation (HCC) / I48.19(ICD-10) MIKAELA HUYNH Active [facility] 01/17/2021 Active Essential hypert ension / I10(ICD-10) LILIAM CARUSO Active [facility] 04/13/2018 Active Paroxysmal atria l fibrillation (HCC) / I48.0(ICD-10) LILIAM CARUSO Active [facility] 02/17/2025 Active Swelling of both ankles / M25.471(ICD-10) LILIAM CARUSO Active [facility] 02/17/2025 Active Swelling of both ankles / M25.472(ICD-10) LILIAM CARUSO Active [facility] 02/17/2025 Active IV site infectio n, sequela / T82.7XXS(ICD-10) LILIAM CARUSO Active [facility] 02/11/2025 Active Cellulitis of ot her specified site / L03.818(ICD-10) HATTIE GARCIA Active [facility] 12/26/2024 Active Psychophysiologi lobo insomnia / F51.04(ICD-10) LILIAM CARUSO Active [facility] 12/26/2024 Active Hypercholesterol emia / E78.00(ICD-10) LILIAM CARUSO Active [facility] 12/26/2024 Active Chronic pain of right knee / M25.561(ICD-10) LILIAM CARUSO Active [facility] 12/26/2024 Active Chronic pain of right knee / G89.29(ICD-10) LILIAM CARUSO Active [facility] 12/26/2024 Active Primary osteoart hritis of right knee / M17.11(ICD-10) LILIAM CARUSO Active [facility] 09/23/2024 Active Encounter for nv reening mammogram for breast cancer / Z12.31(ICD-10) NA Active [facility] 01/17/2021 Active Vitamin D defici ency / E55.9(ICD-10) NA Active [facility] 06/10/2024 Active Encounter for lo ng-term current use of medication / Z79.899(ICD-10) NA Active [facility] PROCEDURES No Procedure Records Found RESULTS PROGRESS Observed: 03/24/2025 2:20 PM Status: COMPLETED Source: [facility] HNO ID: [id number] Author: MIKAELA HUYNH MD Service: ? Author Type: Physician Type: Progress Notes Filed: 03/24/2025 18:36 Note Text: PRIMARY CARE PHYSICIAN: Liliam Caruso [address] [place] [address] REFERRING PHYSICIAN: Teofilo Rosales ([facility]) [address] [facility] [address] Patient Care Team: Liliam Caruso MD as PCP - Katey Kahn APRN.CNS as Chorus Master (Internal Medicine) Teofilo Rosales PA-C as Physician Kiln Furniture Saw Tender (Cardiology) Sterling Thapa MD as Specialty Big Data Engineer (Cardiology) Recording using [employer] software for draft documentation of the visit was discussed with the patient/authorized merchandiser retail representative; all questions welcomed and answered. Patient/authorized merchandiser retail representative agreed to proceed CHIEF COMPLAINT: Evaluation of arrhythmia HISTORY OF PRESENT ILLNESS: Mrs. Ohara is a 74 year old female who presents today for evaluation of atrial arrhythmia, referred by [facility]. Ms. Ohara was first diagnosed with atrial fibrillation or atrial flutter in 2018. This has generally been persistent form, she has undergone 5 cardioversions, with the first occurring on 11/11/2020. She was previously on sotalol 80 mg BID, which was discontinued in January 2023 due to bradycardia. She reports experiencing diarrhea while on sotalol. The sotalol was discontinued and she was started on amiodarone 200 mg daily in January 2025 when she was hospitalized for atrial fibrillation/flutter with rapid ventricular response rates. In February 2024, she experienced palpitations and was found to be in atrial fibrillation following a left knee replacement. She was treated with sotalol at that time. In early October 2024, she had atrial flutter and underwent a cardioversion. She had another cardioversion on 01/13/2025, which only maintained normal rhythm for about a week. In January 2025, she was hospitalized for atrial flutter with a heart rate in the 130s and was treated with IV diltiazem. She underwent another cardioversion on 02/10/2025 and was at that time was started on amiodarone. She reports that her heart rates have been in the 80s, occasionally reaching the low 100s. She denies prolonged periods of heart rates above 120 bpm. She notes that she feels the arrhythmia more when sitting or lying down. She reports feeling better when in normal rhythm, with improved energy levels and less shortness of breath. She denies dizziness but reports occasional dyspnea when the arrhythmia is severe. She has a history of hypertension, with home blood pressure readings typically in the low 100s. She denies any bleeding issues while on Xarelto 20 mg daily. She reports snoring but denies a diagnosis of sleep apnea. 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 She denies any issues with her remaining kidney. Family history is significant for hypertension in both parents. Her father had prostate cancer and smoked when he was younger. Her paternal grandfather reportedly had a myocardial infarction at age 50. She has three sisters and two brothers, both of whom are ; one committed suicide at age 17, and the other in a motor vehicle accident at age 27. She is currently taking Xarelto 20 mg daily, metoprolol tartrate 50 mg BID, and amiodarone 200 mg daily. Labs: Tests: (Today) EKG: Atrial fibrillation with heart rate of 90 (02/26/2025) EKG: Sinus rhythm Imaging: (January 2025) Echocardiogram: Ejection fraction 35-40% (11/29/2023) Echocardiogram: Ejection fraction 60%, normal left atrium I have confirmed and edited as necessary, the PFSH and ROS obtained by others. 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 Thapa Peptic ulcer, unspecified site, unspecified as acute or chronic, without mention of hemorrhage, perforation, or obstruction Persistent atrial fibrillation (HCC) 03/23/2025 Personal history of colonic polyps SOB (shortness of breath) Thyroid cyst 09/24/2014 Unspecified atrial flutter (HCC) PAST SURGICAL HISTORY Procedure Laterality Date ABDOMINAL [...] OF 2012 right kidney donor SOCIAL HISTORY SOCIAL HISTORY[1] FAMILY HISTORY Problem Relation Age of Onset Hypertension Mother other (IBS) Mother Prostate Cancer Father Hypertension Father Hypertension Sister Breast Cancer Sister Suicide / Suicidal Behaviors Brother 17 Accidental Brother 27 MVA Heart disease Paternal Grandfather Heart Attack Paternal Grandfather 50 other (Thyroid Cancer) Other 30 Niece (sister's daughter) ALLERGIES: ALLERGIES Allergen Reactions Cortisone Other: See Comments Flagyl [Metronidazo* GI Upset Flecainide Other: See Comments Caused irregular EKG SOB MEDICATIONS: lisinopril (ZESTRIL) 5 mg tablet Take 1 tablet by mouth once daily. metoprolol tartrate, short acting, (LOPRESSOR) 50 mg tablet two times a day. amiodarone (PACERONE) 200 mg tablet Take 1 tablet by mouth once daily. furosemide (LASIX) 40 mg tablet Take 40 mg by mouth as needed. sertraline (ZOLOFT) 25 mg tablet Take 1 tablet by mouth once daily. zolpidem (AMBIEN) 5 mg tablet Take 1 tablet by mouth at bedtime as needed for sedation for up to 180 days. Patient should start on January 11, 2025. cholecalciferol, vitamin D3, 62.5 mcg (2,500 unit) chew Take 2 capsules by mouth daily after dinner. (actually chewable tablets) XARELTO 20 mg tablet Take 1 tablet by mouth once daily. (cardiology filling) fluticasone (FLONASE) 50 mcg/actuation nasal spray Use 2 Sprays in each nostril once daily. acetaminophen (TYLENOL) 500 mg tablet EVERY 6 HOURS NEEDED bismuth subsalicylate(PEPTO-BISMOL 262 MG TAB) Takes 2 pills daily as needed for IBS flare up REVIEW OF SYSTEMS: Review of Systems Constitutional: Positive for malaise/fatigue. Negative for chills and fever. Respiratory: Negative for cough, hemoptysis, sputum production and shortness of breath. Cardiovascular: Positive for palpitations. Negative for chest pain, orthopnea, claudication, leg swelling and PND. Gastrointestinal: Negative for abdominal pain, blood in stool, melena, nausea and vomiting. Genitourinary: Negative for hematuria. Musculoskeletal: Negative for falls. Skin: Negative for rash. Neurological: Negative for focal weakness, seizures and loss of consciousness. PHYSICAL EXAMINATION: BP 141/86 Pulse 91 Ht 5' 5" (1.65m) Wt 148 lb (67.1kg) SpO2 98% LMP 08/31/2009 BMI 24.63 kg/(m2). Physical Exam Vitals reviewed. Constitutional: General: She is not in acute distress. Appearance: Normal appearance. HENT: Head: Normocephalic and atraumatic. Cardiovascular: Rate and Rhythm: Normal rate. Rhythm irregularly irregular. Heart sounds: Normal heart sounds, S1 normal and S2 normal. No murmur heard. No friction rub. Pulmonary: Effort: Pulmonary effort is normal. No respiratory distress. Breath sounds: Normal breath sounds. No wheezing, rhonchi or rales. Musculoskeletal: Cervical back: Neck supple. Skin: General: Skin is warm and dry. Neurological: General: No focal deficit present. Mental Status: She is alert and oriented to person, place, and time. Psychiatric: Mood and Affect: Mood normal. Behavior: Behavior normal. Thought Content: Thought content normal. CARDIOVASCULAR MEDICINE TESTING: Electrocardiogram: Atrial fibrillation more likely that atypical atrial flutter in spite of appearance in V1 and V2; controlled ventricular response rate, average 90 bpm; normal QRS duration 90 ms; QTc 403 ms; nonspecific T wave abnormality; conduction intervals and QTc appropriate on amiodarone I have personally reviewed the Electrocardiogram. 1. Persistent atrial fibrillation (HCC) - ICD9: 427.31, ICD10: I48.19 (primary diagnosis) 2. Atrial flutter, unspecified type (HCC) - ICD9: 427.32, ICD10: I48.92 3. custodial current use of antiarrhythmic drug - ICD9: V58.69, ICD10: Z79.899 4. 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 At risk for stroke - ICD9: V15.89, ICD10: Z91.89 6. Anticoagulant long-term use - ICD9: V58.61, ICD10: Z79.01 7. Heart failure with mildly reduced ejection fraction (HCC) - ICD9: 428.22, ICD10: I50.22 CHADS2-Vasc Score Breakdown 3 Total Score 1 Female 1 Age 65-74 years old 1 History of hypertension IMPRESSION: 1. Persistent atrial fibrillation (HCC) (I48.19) 2. Atrial flutter, unspecified type (HCC) (I48.92) 3. 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 custodial current use of amiodarone (Z79.899) Chronic atrial fibrillation and atrial flutter with recurrent episodes since 2018; multiple prior cardioversions and antiarrhythmic therapy trials. Currently on amiodarone 200 mg daily and metoprolol tartrate 50 mg BID; sotalol discontinued due to bradycardia and diarrhea. Heart rate is well-controlled (generally <100 bpm), but patient remains in persistent AFib with ongoing palpitations and reduced energy. Patient has been on amiodarone for at least one month; maximum effect expected at 2-3 months. So there is rationale to perform repeat electrical cardioversion in the next month or two, as sinus rhythm might now be maintained. This could be short term strategy while awaiting the ablation procedure (which patient prefers at this point) or a prison strategy instead of catheter ablation (patient unlikely to want that approach terminal gauger) - Continue current amiodarone regimen. Discussed that amiodarone may take several months to reach peak effect; explained that antiarrhythmic drugs are more effective at maintaining sinus rhythm after cardioversion. - Discussed risks and benefits of amiodarone, including potential liver, thyroid, and rare ocular toxicity; advised regular monitoring of liver enzymes and TSH every 6-12 months. - Discussed that rhythm control strategies (antiarrhythmic drugs, ablation) are primarily for symptom improvement and do not reduce stroke risk or improve survival; anticoagulation remains necessary regardless of rhythm status. - Discussed option of repeat cardioversion in the next 1-2 months to restore sinus rhythm, with amiodarone to maintain rhythm. - Discussed potential for long-term amiodarone use if effective, with need for thyroid and liver function testing every 6-12 months. - Discussed that ablation procedure, if effective, may allow discontinuation of amiodarone. Discussed catheter ablation as a low-risk option with 70-80% efficacy; explained procedure, risks (stroke, ), and rationale for continued anticoagulation. - Discussed that pursuing normal rhythm is aimed at improving quality of life and symptom control, not reducing stroke risk or improving survival. 5. At risk for stroke (Z91.89) 6. Anticoagulant long-term use (Z79.01) Patient is on Xarelto for stroke prevention. - Continue Xarelto for stroke prevention. - Discussed importance of ongoing anticoagulation based on risk profile, even if normal rhythm is achieved. 7. Heart failure with mildly reduced ejection fraction (HCC) (I50.22) Recent echocardiogram showed mild reduction in systolic function with ejection fraction 35-40%, possibly related to rapid rates in January. - Obtain copy of echocardiogram from January hospitalization at [facility] to review left atrial dimensions and assess potential challenges in maintaining normal rhythm. - Undergo pharmacological stress test on Monday to evaluate for other causes of reduced ejection fraction. - Educated patient that the stress test is safe, does not stop the heart, and driving is permitted afterward. 8. Nonrheumatic mitral valve regurgitation (I34.0) Chronic, stable nonrheumatic mitral regurgitation. - Continue current management. PLAN AND RECOMMENDATIONS: Ms. Ohara would like to pursue atrial fibrillation/flutter catheter ablation as the long-term treatment strategy. In the meantime she is willing to consider repeat electrical cardioversion now that she has been on amiodarone for a couple of months. She would like to do this at [facility] with Dr. Thapa, which is very reasonable. This might provide her with a "bridge" therapy while she awaits scheduling of the catheter ablation procedure. We would like to expedite the catheter ablation procedure given that she had some degree of cardiomyopathy that might be related to the atrial fibrillation, potentially to the rapid ventricular response rates perhaps. We will ask the [facility] to repeat an echocardiogram in the next month or two, particularly after electrical cardioversion has restored sinus rhythm. We can see what LV systolic function looks like with the nuclear stress test that Ms. Ohara told me she is scheduled to undergo early next week. I had a detailed discussion with Ms. Ohara and her regarding my evaluation and recommendations. After our discussion, Ms. Ohara and her expressed understanding and I answered all questions to their apparent satisfaction. INFORMED CONSENT The risks, benefits and anticipated outcomes of the procedure, the risks and benefits of the alternatives to the procedure and the roles and tasks of the personnel to be involved were discussed with the patient. Consent for the procedure and agreement to proceed has been obtained. I verify that I personally obtained the consent. Return for office will call to schedule procedure. Mikaela Huynh MD 03/24/2025 Medical Decision Making: Problems: Moderate: New problem with uncertain prognosis Data: Unique source(s) for external note(s) reviewed: 3+ Unique test result(s) reviewed: 3+ Unique test(s) ordered: 1 Risk: Moderate: Moderate risk from testing/treatment, Drug management and Decision on minor surgery w/ risk factors Medical Decision Making Level: 4 - Moderate [1] Social History Tobacco Use Smoking status: Former Current packs/day: 0.00 Average packs/day: 1 pack/day for 15.0 years (15.0 ttl pk-yrs) Types: Cigarettes Start date: 07/03/1971 Quit date: 07/03/1986 Years since quittin.7 Smokeless tobacco: Never Tobacco comments: Quit 1986 Vaping Use Vaping status: Never Used Substance Use Topics Alcohol use: No Drug use: No CNOV Observed: 03/24/2025 2:20 PM Status: COMPLETED Source: [facility] Office Visit (AGCARDPOB) WINSTON OHARA ([id number]) 1950 F NFR Date Time Provider Department 03/24/25 2:20 PM MIKAELA HUYNH AGCARDPOLivan During your visit today, we recorded the following information about you: Pulse Blood pressure Weight Height 91/minute 141/86 67.1 kg 1.651 m Mikaela Huynh MD 03/24/2025 6:36 PM Signed PRIMARY CARE PHYSICIAN: Liliam Caruso [address] [place] [address] REFERRING PHYSICIAN: Teofilo Rosales ([facility]) [address] [facility] [address] Patient Care Team: Liliam Caruso MD as PCP - Katey Khan APRN.CNS as Chorus Master (Internal Medicine) Teofilo Rosales PA-C as Physician Kiln Furniture Saw Tender (Cardiology) Sterling Thapa MD as Specialty Big Data Engineer (Cardiology) Recording using [employer] software for draft documentation of the visit was discussed with the patient/authorized merchandiser retail representative; all questions welcomed and answered. Patient/authorized merchandiser retail representative agreed to proceed CHIEF COMPLAINT: Evaluation of arrhythmia HISTORY OF PRESENT ILLNESS: Mrs. Ohara is a 74 year old female who presents today for evaluation of atrial arrhythmia, referred by [facility]. Ms. Ohara was first diagnosed with atrial fibrillation or atrial flutter in 2018. This has generally been persistent form, she has undergone 5 cardioversions, with the first occurring on 11/11/2020. She was previously on sotalol 80 mg BID, which was discontinued in January 2023 due to bradycardia. She reports experiencing diarrhea while on sotalol. The sotalol was discontinued and she was started on amiodarone 200 mg daily in January 2025 when she was hospitalized for atrial fibrillation/flutter with rapid ventricular response rates. In February 2024, she experienced palpitations and was found to be in atrial fibrillation following a left knee replacement. She was treated with sotalol at that time. In early October 2024, she had atrial flutter and underwent a cardioversion. She had another cardioversion on 01/13/2025, which only maintained normal rhythm for about a week. In January 2025, she was hospitalized for atrial flutter with a heart rate in the 130s and was treated with IV diltiazem. She underwent another cardioversion on 02/10/2025 and was at that time was started on amiodarone. She reports that her heart rates have been in the 80s, occasionally reaching the low 100s. She denies prolonged periods of heart rates above 120 bpm. She notes that she feels the arrhythmia more when sitting or lying down. She reports feeling better when in normal rhythm, with improved energy levels and less shortness of breath. She denies dizziness but reports occasional dyspnea when the arrhythmia is severe. She has a history of hypertension, with home blood pressure readings typically in the low 100s. She denies any bleeding issues while on Xarelto 20 mg daily. She reports snoring but denies a diagnosis of sleep apnea. 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 She denies any issues with her remaining kidney. Family history is significant for hypertension in both parents. Her father had prostate cancer and smoked when he was younger. Her paternal grandfather reportedly had a myocardial infarction at age 50. She has three sisters and two brothers, both of whom are ; one committed suicide at age 17, and the other in a motor vehicle accident at age 27. She is currently taking Xarelto 20 mg daily, metoprolol tartrate 50 mg BID, and amiodarone 200 mg daily. Labs: Tests: (Today) EKG: Atrial fibrillation with heart rate of 90 (02/26/2025) EKG: Sinus rhythm Imaging: (January 2025) Echocardiogram: Ejection fraction 35-40% (11/29/2023) Echocardiogram: Ejection fraction 60%, normal left atrium I have confirmed and edited as necessary, the PFSH and ROS obtained by others. 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 Thapa Peptic ulcer, unspecified site, unspecified as acute or chronic, without mention of hemorrhage, perforation, or obstruction Persistent atrial fibrillation (HCC) 03/23/2025 Personal history of colonic polyps SOB (shortness of breath) Thyroid cyst 09/24/2014 Unspecified atrial flutter (HCC) PAST SURGICAL HISTORY Procedure Laterality Date ABDOMINAL [...] colectomy, right salpingoopherectomy PAST SURGICAL HISTORY OF 2013 right kidney donor SOCIAL HISTORY SOCIAL HISTORY[1] FAMILY HISTORY Problem Relation Age of Onset Hypertension Mother other (IBS) Mother Prostate Cancer Father Hypertension Father Hypertension Sister Breast Cancer Sister Suicide / Suicidal Behaviors Brother 17 Accidental Brother 27 MVA Heart disease Paternal Grandfather Heart Attack Paternal Grandfather 50 other (Thyroid Cancer) Other 30 Niece (sister's daughter) ALLERGIES: ALLERGIES Allergen Reactions Cortisone Other: See Comments Flagyl [Metronidazo* GI Upset Flecainide Other: See Comments Caused irregular EKG SOB MEDICATIONS: lisinopril (ZESTRIL) 5 mg tablet Take 1 tablet by mouth once daily. metoprolol tartrate, short acting, (LOPRESSOR) 50 mg tablet two times a day. amiodarone (PACERONE) 200 mg tablet Take 1 tablet by mouth once daily. furosemide (LASIX) 40 mg tablet Take 40 mg by mouth as needed. sertraline (ZOLOFT) 25 mg tablet Take 1 tablet by mouth once daily. zolpidem (AMBIEN) 5 mg tablet Take 1 tablet by mouth at bedtime as needed for sedation for up to 180 days. Patient should start on January 11, 2025. cholecalciferol, vitamin D3, 62.5 mcg (2,500 unit) chew Take 2 capsules by mouth daily after dinner. (actually chewable tablets) XARELTO 20 mg tablet Take 1 tablet by mouth once daily. (cardiology filling) fluticasone (FLONASE) 50 mcg/actuation nasal spray Use 2 Sprays in each nostril once daily. acetaminophen (TYLENOL) 500 mg tablet EVERY 6 HOURS NEEDED bismuth subsalicylate(PEPTO-BISMOL 262 MG TAB) Takes 2 pills daily as needed for IBS flare up REVIEW OF SYSTEMS: Review of Systems Constitutional: Positive for malaise/fatigue. Negative for chills and fever. Respiratory: Negative for cough, hemoptysis, sputum production and shortness of breath. Cardiovascular: Positive for palpitations. Negative for chest pain, orthopnea, claudication, leg swelling and PND. Gastrointestinal: Negative for abdominal pain, blood in stool, melena, nausea and vomiting. Genitourinary: Negative for hematuria. Musculoskeletal: Negative for falls. Skin: Negative for rash. Neurological: Negative for focal weakness, seizures and loss of consciousness. PHYSICAL EXAMINATION: BP 141/86 Pulse 91 Ht 5' 5" (1.65m) Wt 148 lb (67.1kg) SpO2 98% LMP 08/31/2009 BMI 24.63 kg/(m2). Physical Exam Vitals reviewed. Constitutional: General: She is not in acute distress. Appearance: Normal appearance. HENT: Head: Normocephalic and atraumatic. Cardiovascular: Rate and Rhythm: Normal rate. Rhythm irregularly irregular. Heart sounds: Normal heart sounds, S1 normal and S2 normal. No murmur heard. No friction rub. Pulmonary: Effort: Pulmonary effort is normal. No respiratory distress. Breath sounds: Normal breath sounds. No wheezing, rhonchi or rales. Musculoskeletal: Cervical back: Neck supple. Skin: General: Skin is warm and dry. Neurological: General: No focal deficit present. Mental Status: She is alert and oriented to person, place, and time. Psychiatric: Mood and Affect: Mood normal. Behavior: Behavior normal. Thought Content: Thought content normal. CARDIOVASCULAR MEDICINE TESTING: Electrocardiogram: Atrial fibrillation more likely that atypical atrial flutter in spite of appearance in V1 and V2; controlled ventricular response rate, average 90 bpm; normal QRS duration 90 ms; QTc 403 ms; nonspecific T wave abnormality; conduction intervals and QTc appropriate on amiodarone I have personally reviewed the Electrocardiogram. 1. Persistent atrial fibrillation (HCC) - ICD9: 427.31, ICD10: I48.19 (primary diagnosis) 2. Atrial flutter, unspecified type (HCC) - ICD9: 427.32, ICD10: I48.92 3. custodial current use of antiarrhythmic drug - ICD9: V58.69, ICD10: Z79.899 4. custodial current use of amiodarone - ICD9: V58.69, ICD10: Z79.899 5. At risk for stroke - ICD9: V15.89, ICD10: Z91.89 6. Anticoagulant long-term use - ICD9: V58.61, ICD10: Z79.01 7. Heart failure with mildly reduced ejection fraction (HCC) - ICD9: 428.22, ICD10: I50.22 CHADS2-Vasc Score Breakdown 3 Total Score 1 Female 1 Age 65-74 years old 1 History of hypertension IMPRESSION: 1. Persistent atrial fibrillation (HCC) (I48.19) 2. Atrial flutter, unspecified type (HCC) (I48.92) 3. 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 Currently on amiodarone 200 mg daily and metoprolol tartrate 50 mg BID; sotalol discontinued due to bradycardia and diarrhea. Heart rate is well-controlled (generally <100 bpm), but patient remains in persistent AFib with ongoing palpitations and reduced energy. Patient has been on amiodarone for at least one month; maximum effect expected at 2-3 months. So there is rationale to perform repeat electrical cardioversion in the next month or two, as sinus rhythm might now be maintained. This could be short term strategy while awaiting the ablation procedure (which patient prefers at this point) or a prison strategy instead of catheter ablation (patient unlikely to want that approach terminal gauger) - Continue current amiodarone regimen. Discussed that amiodarone may take several months to reach peak effect; explained that antiarrhythmic drugs are more effective at maintaining sinus rhythm after cardioversion. - Discussed risks and benefits of amiodarone, including potential liver, thyroid, and rare ocular toxicity; advised regular monitoring of liver enzymes and TSH every 6-12 months. - Discussed that rhythm control strategies (antiarrhythmic drugs, ablation) are primarily for symptom improvement and do not reduce stroke risk or improve survival; anticoagulation remains necessary regardless of rhythm status. - Discussed option of repeat cardioversion in the next 1-2 months to restore sinus rhythm, with amiodarone to maintain rhythm. - Discussed potential for long-term amiodarone use if effective, with need for thyroid and liver function testing every 6-12 months. - Discussed that ablation procedure, if effective, may allow discontinuation of amiodarone. Discussed catheter ablation as a low-risk option with 70-80% efficacy; explained procedure, risks (stroke, ), and rationale for continued anticoagulation. - Discussed that pursuing normal rhythm is aimed at improving quality of life and symptom control, not reducing stroke risk or improving survival. 5. At risk for stroke (Z91.89) 6. Anticoagulant long-term use (Z79.01) Patient is on Xarelto for stroke prevention. - Continue Xarelto for stroke prevention. - Discussed importance of ongoing anticoagulation based on risk profile, even if normal rhythm is achieved. 7. Heart failure with mildly reduced ejection fraction (HCC) (I50.22) Recent echocardiogram showed mild reduction in systolic function with ejection fraction 35-40%, possibly related to rapid rates in January. - Obtain copy of echocardiogram from January hospitalization at [facility] to review left atrial dimensions and assess potential challenges in maintaining normal rhythm. - Undergo pharmacological stress test on Monday to evaluate for other causes of reduced ejection fraction. - Educated patient that the stress test is safe, does not stop the heart, and driving is permitted afterward. 8. Nonrheumatic mitral valve regurgitation (I34.0) Chronic, stable nonrheumatic mitral regurgitation. - Continue current management. PLAN AND RECOMMENDATIONS: Ms. Ohara would like to pursue atrial fibrillation/flutter catheter ablation as the long-term treatment strategy. In the meantime she is willing to consider repeat electrical cardioversion now that she has been on amiodarone for a couple of months. She would like to do this at [facility] with Dr. Thapa, which is very reasonable. This might provide her with a "bridge" therapy while she awaits scheduling of the catheter ablation procedure. We would like to expedite the catheter ablation procedure given that she had some degree of cardiomyopathy that might be related to the atrial fibrillation, potentially to the rapid ventricular response rates perhaps. We will ask the [facility] to repeat an echocardiogram in the next month or two, particularly after electrical cardioversion has restored sinus rhythm. We can see what LV systolic function looks like with the nuclear stress test that Ms. Ohara told me she is scheduled to undergo early next week. I had a detailed discussion with Ms. Ohara and her regarding my evaluation and recommendations. After our discussion, Ms. Ohara and her expressed understanding and I answered all questions to their apparent satisfaction. INFORMED CONSENT The risks, benefits and anticipated outcomes of the procedure, the risks and benefits of the alternatives to the procedure and the roles and tasks of the personnel to be involved were discussed with the patient. Consent for the procedure and agreement to proceed has been obtained. I verify that I personally obtained the consent. Return for office will call to schedule procedure. Mikaela Huynh MD 03/24/2025 Medical Decision Making: Problems: Moderate: New problem with uncertain prognosis Data: Unique source(s) for external note(s) reviewed: 3+ Unique test result(s) reviewed: 3+ Unique test(s) ordered: 1 Risk: Moderate: Moderate risk from testing/treatment, Drug management and Decision on minor surgery w/ risk factors Medical Decision Making Level: 4 - Moderate [1] Social History Tobacco Use Smoking status: Former Current packs/day: 0.00 Average packs/day: 1 pack/day for 15.0 years (15.0 ttl pk-yrs) Types: Cigarettes Start date: 07/03/1971 Quit date: 07/03/1986 Years since quittin.7 Smokeless tobacco: Never Tobacco comments: Quit 1986 Vaping Use Vaping status: Never Used Substance Use Topics Alcohol use: No Drug use: No Mikaela Huynh MD 03/24/2025 3:42 PM Signed We discussed your atrial fibrillation (AFib) and atrial flutter: - You are currently on amiodarone 200 mg daily and Xarelto 20 mg daily. Continue taking these medications as prescribed. - Your heart rate is under control, with recent readings in the 80s to 90s, which is acceptable. - You are scheduled for a chemical stress test on Monday to evaluate your heart function and rule out any underlying heart disease. Please attend this appointment as planned. - I will request the echocardiogram report from your January 2025 hospitalization to assess your heart's structure and function, particularly the size of your left atrium. - We discussed the option of scheduling another cardioversion in the next 1-2 months. This would allow the amiodarone to reach its peak effect and potentially help maintain normal rhythm. - Catheter ablation is another option to consider for long-term rhythm control. This procedure has a 70-80% success rate and is a low-risk option for you. If you decide to proceed, it may take a few months to schedule. - You expressed interest in pursuing ablation to improve your quality of life and allow for travel and other activities. I will proceed with the necessary steps to plan for this procedure. We discussed lifestyle and risk factor management for AFib: - Weight loss and treatment of sleep apnea can help reduce AFib episodes. You mentioned that you snore, which may indicate sleep apnea. If this becomes a concern, we can explore further evaluation. - Avoid known triggers such as excessive caffeine, alcohol, or stress, though stress does not appear to be a significant factor for you. Next steps: - Attend your chemical stress test on Monday. - I will follow up with the echocardiogram report from January 2025 and review the findings. - We will plan for a cardioversion in the next 1-2 months to assess how well amiodarone helps maintain normal rhythm. - If you decide to proceed with catheter ablation, we will begin the scheduling process. Please continue monitoring your heart rate and symptoms. If you experience dizziness, chest pain, or prolonged rapid heart rates above 120 beats per minute, seek medical attention immediately. Referring Provider: TEOFILO ROSALES [[id number]] Allergies As of Date: 03/24/2025 Noted Allergy Reaction CORTISONE 02/06/2021 14 - Other: See Comments FLAGYL (METRONIDAZOLE) 10/28/2019 8 - GI Upset FLECAINIDE 12/15/2020 14 - Other: See Comments Comments: Caused irregular EKG SOB Date Reviewed: 03/24/2025 Reviewed by: Mikaela Huynh MD - Fully Assessed Reason for Visit: CARD New Patient Consult [1228] Cmt: Referral per [facility] for a-flutter, discuss catheter ablation Primary Visit Diagnosis:Persistent atrial fibrillation (HCC) [I48.19] Other Visit Diagnoses:Atrial flutter, unspecified type (HCC) [I48.92] custodial current use of antiarrhythmic drug [Z79.899] 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 - metoprolol tartrate, short acting, (LOPRESSOR) 50 mg tablet two times a day. - amiodarone (PACERONE) 200 mg tablet Take 1 tablet by mouth once daily. - furosemide (LASIX) 40 mg tablet Take 40 mg by mouth as needed. - sertraline (ZOLOFT) 25 mg tablet Take 1 tablet by mouth once daily. - zolpidem (AMBIEN) 5 mg tablet Take 1 tablet by mouth at bedtime as needed for sedation for up to 180 days. Patient should start on January 11, 2025. - cholecalciferol, vitamin D3, 62.5 mcg (2,500 unit) chew Take 2 capsules by mouth daily after dinner. (actually chewable tablets) - XARELTO 20 mg tablet Take 1 tablet by mouth once daily. (cardiology filling) - fluticasone (FLONASE) 50 mcg/actuation nasal spray Use 2 Sprays in each nostril once daily. - acetaminophen (TYLENOL) 500 mg tablet EVERY 6 HOURS NEEDED - bismuth subsalicylate(PEPTO-BISMOL 262 MG TAB) Takes 2 pills daily as needed for IBS flare up Meds Comments as of 08/01/2007: All medications have been reviewed today/August 01, 2007 Jessica Velásquez [employer]acker Problem List As Of Date 03/24/2025 Noted Resolved Family history of malignant neoplasm [...] [Z90.5] 02/12/2016 Paroxysmal atrial fibrillation (HCC) [I48.0] 03/23/2025 Rash and nonspecific skin eruption [R21] 04/13/2018 Primary osteoarthritis of both knees [M17.0] 10/08/2018 Essential hypertension [I10] 01/17/2021 Vitamin D deficiency [E55.9] 01/17/2021 Persistent atrial fibrillation (HCC) [I48.19] 03/23/2025 custodial current use of antiarrhythmic drug [Z*03/23/2025 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] 03/23/2025 At risk for stroke [Z91.89] 03/23/2025 Anticoagulant long-term use [Z79.01] 03/23/2025 Atrial flutter (HCC) [I48.92] 03/23/2025 Absence of kidney [Z90.5] 03/23/2025 Anxiety [F41.9] 03/23/2025 Dyspnea on exertion [R06.09] 03/23/2025 Shortness of breath [R06.02] 03/23/2025 Sinus bradycardia [R00.1] 04/21/2023 History of total knee replacement [Z96.659] 03/23/2025 Status post total left knee replacement [Z96.65*03/23/2025 History of cardioversion [Z92.89] 11/11/2020 Other instructions from your clinician: We discussed your atrial fibrillation (AFib) and atrial flutter: - You are currently on amiodarone 200 mg daily and Xarelto 20 mg daily. Continue taking these medications as prescribed. - Your heart rate is under control, with recent readings in the 80s to 90s, which is acceptable. - You are scheduled for a chemical stress test on Monday to evaluate your heart function and rule out any underlying heart disease. Please attend this appointment as planned. - I will request the echocardiogram report from your January 2025 hospitalization to assess your heart's structure and function, particularly the size of your left atrium. - We discussed the option of scheduling another cardioversion in the next 1-2 months. This would allow the amiodarone to reach its peak effect and potentially help maintain normal rhythm. - Catheter ablation is another option to consider for long-term rhythm control. This procedure has a 70-80% success rate and is a low-risk option for you. If you decide to proceed, it may take a few months to schedule. - You expressed interest in pursuing ablation to improve your quality of life and allow for travel and other activities. I will proceed with the necessary steps to plan for this procedure. We discussed lifestyle and risk factor management for AFib: - Weight loss and treatment of sleep apnea can help reduce AFib episodes. You mentioned that you snore, which may indicate sleep apnea. If this becomes a concern, we can explore further evaluation. - Avoid known triggers such as excessive caffeine, alcohol, or stress, though stress does not appear to be a significant factor for you. Next steps: - Attend your chemical stress test on Monday. - I will follow up with the echocardiogram report from January 2025 and review the findings. - We will plan for a cardioversion in the next 1-2 months to assess how well amiodarone helps maintain normal rhythm. - If you decide to proceed with catheter ablation, we will begin the scheduling process. Please continue monitoring your heart rate and symptoms. If you experience dizziness, chest pain, or prolonged rapid heart rates above 120 beats per minute, seek medical attention immediately. Level of Service: OFFICE/OUTPATIENT NEW MODERATE MDM 45 MINUTES [24092] Additional E/M codes: VISIT CPLX INHERENT EANDM ASSOC WITH MED * Disposition: Return for office will call to schedule procedure. Follow-up and Disposition History for Encounter Date Provider Department Center 03/24/2025 6105-MIKAELA HUYNH [facility] Text Encounter Status:Closed by MIKAELA HUYNH on 03/24/25 PROGRESS Observed: 02/17/2025 2:39 PM Status: COMPLETED Source: [facility] HNO ID: [id number] Author: LILIAM CARUSO MD Service: ? Author Type: Physician Type: Progress Notes Filed: 02/17/2025 15:10 Note Text: Subjective Winston Ohara is a 74 year old female. HPI SUBJECTIVE: Winston Ohara is a 74-year-old female with a history of atrial fibrillation, presenting for follow-up after recent hospitalization and cardioversion. Winston was recently hospitalized and underwent her sixth cardioversion on the due to recurrent atrial fibrillation. She reports that her current medication regimen, which includes rivaroxaban, amiodarone, and metoprolol tartrate 50 mg BID, has been more effective in controlling her symptoms compared to previous medications. She notes that her heart rate has been stable in the 50s, and she feels "normal for once," without episodes of tachycardia. However, she expresses anxiety about the potential recurrence of atrial fibrillation. Yesterday morning, she experienced a brief episode of anxiety and recorded a blood pressure reading in the 150s/80s, which improved after taking her scheduled metoprolol dose. She notes that her blood pressure is not consistently elevated and was in the 130s this morning. She is taking her metoprolol approximately 12 hours apart. Winston has an upcoming appointment with Dr. Huynh on March 24 to discuss the possibility of an ablation. She inquires about the feasibility of advancing this appointment. She reports peripheral edema, particularly around her ankles and occasionally her knees, for which she is taking furosemide as needed. The edema is more pronounced in the evenings after prolonged sitting or standing. She also reports a recent episode of cellulitis at an IV site on her left forearm, for which she was treated with Augmentin 500 mg TID. 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 PAST MEDICAL HISTORY Diagnosis Date Arthritis Atrial fibrillation with RVR (HCC) Benign neoplasm of colon 2005 Excised via colonoscopy Calculus of kidney Depressive disorder, not elsewhere classified Diarrhea Essential hypertension 01/17/2021 External hemorrhoids without mention of complication Ganglion Cyst, arch of left foot 01/20/2010 Generalized anxiety disorder Anxiety, Generalized Generalized anxiety disorder History of kidney donation 02/12/2016 Insomnia, unspecified [...] or obstruction Personal history of colonic polyps SOB (shortness of breath) Thyroid cyst 09/24/2014 Unspecified atrial flutter (HCC) Current Outpatient Medications Medication Sig metoprolol tartrate, short acting, (LOPRESSOR) 50 mg tablet two times a day. amiodarone (PACERONE) 200 mg tablet Take 1 tablet by mouth once daily. amoxicillin-clavulanate potassium (AUGMENTIN) 875-125 mg per tablet Take 1 tablet by mouth two times a day for 7 days. furosemide (LASIX) 40 mg tablet Take 40 mg by mouth as needed. sertraline (ZOLOFT) 25 mg tablet Take 1 tablet by mouth once daily. zolpidem (AMBIEN) 5 mg tablet Take 1 tablet by mouth at bedtime as needed for sedation for up to 180 days. Patient should start on January 11, 2025. (Patient taking differently: Take 1 tablet by mouth at bedtime as needed for sedation for up to 180 days. Patient should start on January 11, 2025.) cholecalciferol, vitamin D3, 62.5 mcg (2,500 unit) chew Take 2 capsules by mouth daily after dinner. (actually chewable tablets) XARELTO 20 mg tablet Take 1 tablet by mouth once daily. (cardiology filling) fluticasone (FLONASE) 50 mcg/actuation nasal spray Use 2 Sprays in each nostril once daily. acetaminophen (TYLENOL) 500 mg tablet EVERY 6 HOURS NEEDED bismuth subsalicylate(PEPTO-BISMOL 262 MG TAB) Takes 2 pills daily as needed for IBS flare up No current facility-administered medications for this visit. Review of Systems Objective BP 128/72 Pulse (!) 52 Resp 16 Wt 68.8 kg (151 lb 10.8 oz) LMP 08/31/2009 SpO2 98% BMI 26.04 kg/m? Last 5 Encounter Wt Readings: Date: Wt: 02/17/2025 68.8 kg (151 lb 10.8 oz) 02/11/2025 71.1 kg (156 lb 12 oz) 12/26/2024 70.1 kg (154 lb 8.7 oz) 06/14/2024 69 kg (152 lb 1.9 oz) 12/20/2023 69.9 kg (154 lb) No waist measurement recorded Estimated body mass index is 26.04 kg/m? as calculated from the following: Height as of 06/14/24: 162.6 cm (5' 4"). Weight as of this encounter: 68.8 kg (151 lb 10.8 oz). Last 5 Encounter BP Readings: Date: BP: 02/17/2025 128/72 02/11/2025 130/70 12/26/2024 136/62 08/29/2024 141/71 06/14/2024 134/68 Physical Exam Constitutional: Appearance: Normal appearance. HENT: Head: Normocephalic. Eyes: Conjunctiva/sclera: Conjunctivae normal. Cardiovascular: Rate and Rhythm: Normal rate and regular rhythm. Heart sounds: Normal heart sounds. Comments: No pitting edema but feel like jimenez some fluid retention in legs/ankels Pulmonary: Effort: Pulmonary effort is normal. Breath sounds: Normal breath sounds. Skin: General: Skin is warm and dry. Neurological: General: No focal deficit present. Mental Status: She is alert and oriented to person, place, and time. Psychiatric: Mood and Affect: Mood normal. Behavior: Behavior normal. Thought Content: Thought content normal. Judgment: Judgment normal. # Paroxysmal atrial fibrillation (HCC) (I48.0) - Recent hospitalization for atrial fibrillation with cardioversion on the ; currently in normal sinus rhythm with heart rate in the 50s and regular rhythm on exam. - Reviewed discharge summary from the ; sotalol discontinued, started on amiodarone, metoprolol tartrate 50 mg BID, and rivaroxaban. - Discussed role of amiodarone and metoprolol in rhythm and rate control; explained that occasional skipped beats are common and that beta magnolia helps prevent recurrence. - Referred to Dr. Huynh (EP) for ablation evaluation; appointment scheduled for March 24; sent note to EP to request earlier appointment if possible. - Continue current medications as prescribed. - Follow-up with EP as scheduled. # Essential hypertension (I10) - Blood pressure variable, with occasional morning elevations to 150s systolic; currently 120s/70s. - Previously on losartan, discontinued due to low BP; currently on metoprolol tartrate 50 mg BID. - Advised patient to notify cardiology about morning BP elevations; discussed possibility of adjusting metoprolol or reintroducing losartan at a lower dose. - Continue home BP monitoring; follow-up with cardiology for medication adjustments as needed. # Swelling of both ankles (M25.471) - Mild, non-pitting edema of bilateral ankles, worse on some days; currently managed with furosemide PRN. - Lungs clear on exam; no significant pitting edema noted. - Continue furosemide as needed; monitor for changes in swelling. # IV site infection, sequela (T82.7XXS) - Recent IV site infection on left forearm, treated with Augmentin 500 mg TID; area still mildly tender but improving. - Continue to monitor for signs of infection; no further intervention needed at this time. Liliam Caruso MD Recording using [employer] software for draft documentation of the visit was discussed with the patient/authorized merchandiser retail representative; all questions welcomed and answered. Patient/authorized merchandiser retail representative agreed to proceed CNOV Observed: 02/17/2025 2:00 PM Status: COMPLETED Source: [facility] Office Visit (INTMWS) WINSTON OHARA ([id number]) 1950 F NFR Date Time Provider Department 02/17/25 2:00 PM LILIAM CARUSO INTMWS During your visit today, we recorded the following information about you: Pulse Respiration Blood pressure Weight 52/minute 16/minute 128/72 68.8 kg Liliam Caruso MD 02/17/2025 3:10 PM Signed Subjective Winston Ohara is a 74 year old female. HPI SUBJECTIVE: Winston Ohara is a 74-year-old female with a history of atrial fibrillation, presenting for follow-up after recent hospitalization and cardioversion. Winston was recently hospitalized and underwent her sixth cardioversion on the due to recurrent atrial fibrillation. She reports that her current medication regimen, which includes rivaroxaban, amiodarone, and metoprolol tartrate 50 mg BID, has been more effective in controlling her symptoms compared to previous medications. She notes that her heart rate has been stable in the 50s, and she feels "normal for once," without episodes of tachycardia. However, she expresses anxiety about the potential recurrence of atrial fibrillation. Yesterday morning, she experienced a brief episode of anxiety and recorded a blood pressure reading in the 150s/80s, which improved after taking her scheduled metoprolol dose. She notes that her blood pressure is not consistently elevated and was in the 130s this morning. She is taking her metoprolol approximately 12 hours apart. Winston has an upcoming appointment with Dr. Huynh on March 24 to discuss the possibility of an ablation. She inquires about the feasibility of advancing this appointment. She reports peripheral edema, particularly around her ankles and occasionally her knees, for which she is taking furosemide as needed. The edema is more pronounced in the evenings after prolonged sitting or standing. She also reports a recent episode of cellulitis at an IV site on her left forearm, for which she was treated with Augmentin 500 mg TID. 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 PAST MEDICAL HISTORY Diagnosis Date Arthritis Atrial fibrillation with RVR (HCC) Benign neoplasm of colon 2005 Excised via colonoscopy Calculus of kidney Depressive disorder, not elsewhere classified Diarrhea Essential hypertension 01/17/2021 External hemorrhoids without mention of complication Ganglion Cyst, arch of left foot 01/20/2010 Generalized anxiety disorder Anxiety, Generalized Generalized anxiety disorder History of kidney donation 02/12/2016 Insomnia, unspecified [...] or obstruction Personal history of colonic polyps SOB (shortness of breath) Thyroid cyst 09/24/2014 Unspecified atrial flutter (HCC) Current Outpatient Medications Medication Sig metoprolol tartrate, short acting, (LOPRESSOR) 50 mg tablet two times a day. amiodarone (PACERONE) 200 mg tablet Take 1 tablet by mouth once daily. amoxicillin-clavulanate potassium (AUGMENTIN) 875-125 mg per tablet Take 1 tablet by mouth two times a day for 7 days. furosemide (LASIX) 40 mg tablet Take 40 mg by mouth as needed. sertraline (ZOLOFT) 25 mg tablet Take 1 tablet by mouth once daily. zolpidem (AMBIEN) 5 mg tablet Take 1 tablet by mouth at bedtime as needed for sedation for up to 180 days. Patient should start on January 11, 2025. (Patient taking differently: Take 1 tablet by mouth at bedtime as needed for sedation for up to 180 days. Patient should start on January 11, 2025.) cholecalciferol, vitamin D3, 62.5 mcg (2,500 unit) chew Take 2 capsules by mouth daily after dinner. (actually chewable tablets) XARELTO 20 mg tablet Take 1 tablet by mouth once daily. (cardiology filling) fluticasone (FLONASE) 50 mcg/actuation nasal spray Use 2 Sprays in each nostril once daily. acetaminophen (TYLENOL) 500 mg tablet EVERY 6 HOURS NEEDED bismuth subsalicylate(PEPTO-BISMOL 262 MG TAB) Takes 2 pills daily as needed for IBS flare up No current facility-administered medications for this visit. Review of Systems Objective BP 128/72 Pulse (!) 52 Resp 16 Wt 68.8 kg (151 lb 10.8 oz) LMP 08/31/2009 SpO2 98% BMI 26.04 kg/m? Last 5 Encounter Wt Readings: Date: Wt: 02/17/2025 68.8 kg (151 lb 10.8 oz) 02/11/2025 71.1 kg (156 lb 12 oz) 12/26/2024 70.1 kg (154 lb 8.7 oz) 06/14/2024 69 kg (152 lb 1.9 oz) 12/20/2023 69.9 kg (154 lb) No waist measurement recorded Estimated body mass index is 26.04 kg/m? as calculated from the following: Height as of 06/14/24: 162.6 cm (5' 4"). Weight as of this encounter: 68.8 kg (151 lb 10.8 oz). Last 5 Encounter BP Readings: Date: BP: 02/17/2025 128/72 02/11/2025 130/70 12/26/2024 136/62 08/29/2024 141/71 06/14/2024 134/68 Physical Exam Constitutional: Appearance: Normal appearance. HENT: Head: Normocephalic. Eyes: Conjunctiva/sclera: Conjunctivae normal. Cardiovascular: Rate and Rhythm: Normal rate and regular rhythm. Heart sounds: Normal heart sounds. Comments: No pitting edema but feel like jimenez some fluid retention in legs/ankels Pulmonary: Effort: Pulmonary effort is normal. Breath sounds: Normal breath sounds. Skin: General: Skin is warm and dry. Neurological: General: No focal deficit present. Mental Status: She is alert and oriented to person, place, and time. Psychiatric: Mood and Affect: Mood normal. Behavior: Behavior normal. Thought Content: Thought content normal. Judgment: Judgment normal. # Paroxysmal atrial fibrillation (HCC) (I48.0) - Recent hospitalization for atrial fibrillation with cardioversion on the ; currently in normal sinus rhythm with heart rate in the 50s and regular rhythm on exam. - Reviewed discharge summary from the ; sotalol discontinued, started on amiodarone, metoprolol tartrate 50 mg BID, and rivaroxaban. - Discussed role of amiodarone and metoprolol in rhythm and rate control; explained that occasional skipped beats are common and that beta magnolia helps prevent recurrence. - Referred to Dr. Huynh (EP) for ablation evaluation; appointment scheduled for March 24; sent note to EP to request earlier appointment if possible. - Continue current medications as prescribed. - Follow-up with EP as scheduled. # Essential hypertension (I10) - Blood pressure variable, with occasional morning elevations to 150s systolic; currently 120s/70s. - Previously on losartan, discontinued due to low BP; currently on metoprolol tartrate 50 mg BID. - Advised patient to notify cardiology about morning BP elevations; discussed possibility of adjusting metoprolol or reintroducing losartan at a lower dose. - Continue home BP monitoring; follow-up with cardiology for medication adjustments as needed. # Swelling of both ankles (M25.471) - Mild, non-pitting edema of bilateral ankles, worse on some days; currently managed with furosemide PRN. - Lungs clear on exam; no significant pitting edema noted. - Continue furosemide as needed; monitor for changes in swelling. # IV site infection, sequela (T82.7XXS) - Recent IV site infection on left forearm, treated with Augmentin 500 mg TID; area still mildly tender but improving. - Continue to monitor for signs of infection; no further intervention needed at this time. Liliam Caruso MD Recording using [employer] software for draft documentation of the visit was discussed with the patient/authorized merchandiser retail representative; all questions welcomed and answered. Patient/authorized merchandiser retail representative agreed to proceed Allergies As of Date: 02/17/2025 Noted Allergy Reaction FLAGYL (METRONIDAZOLE) 10/28/2019 8 - GI Upset FLECAINIDE 12/15/2020 14 - Other: See Comments Comments: Caused irregular EKG SOB Date Reviewed: 02/17/2025 Reviewed by: Lyssa Roche LPN - Fully Assessed Reason for Visit: Hospital Follow Up [177] Primary Visit Diagnosis:Paroxysmal atrial fibrillation (HCC) [I48.0] Other Visit Diagnoses:Essential hypertension [I10] Swelling of both ankles [M25.471, M25.472] IV site infection, sequela [T82.7XXS] Prescriptions as of 02/17/2025 - metoprolol tartrate, short acting, (LOPRESSOR) 50 mg tablet two times a day. - amiodarone (PACERONE) 200 mg tablet Take 1 tablet by mouth once daily. - amoxicillin-clavulanate potassium (AUGMENTIN) 875-125 mg per tablet Take 1 tablet by mouth two times a day for 7 days. - furosemide (LASIX) 40 mg tablet Take 40 mg by mouth as needed. - sertraline (ZOLOFT) 25 mg tablet Take 1 tablet by mouth once daily. - zolpidem (AMBIEN) 5 mg tablet Take 1 tablet by mouth at bedtime as needed for sedation for up to 180 days. Patient should start on January 11, 2025. - cholecalciferol, vitamin D3, 62.5 mcg (2,500 unit) chew Take 2 capsules by mouth daily after dinner. (actually chewable tablets) - XARELTO 20 mg tablet Take 1 tablet by mouth once daily. (cardiology filling) - fluticasone (FLONASE) 50 mcg/actuation nasal spray Use 2 Sprays in each nostril once daily. - acetaminophen (TYLENOL) 500 mg tablet EVERY 6 HOURS NEEDED - bismuth subsalicylate(PEPTO-BISMOL 262 MG TAB) Takes 2 pills daily as needed for IBS flare up Meds Comments as of 08/01/2007: All medications have been reviewed todayAugust 01, 2007 Jessica Velásquez [employer] Problem List As Of Date 02/17/2025 Noted Resolved Family history of malignant neoplasm [...] [I10] 01/17/2021 Vitamin D deficiency [E55.9] 01/17/2021 Medications Discontinued During This Encounter Prescriptions - sotalol (BETAPACE) 80 mg tablet (Discontinued) Take 80 mg by mouth twice daily. - losartan (COZAAR) 100 mg tablet (Discontinued) Take 100 mg by mouth once daily. - metoprolol succinate ER (TOPROL XL) 50 mg 24 hr tablet (Discontinued) Reported on 02/17/2025 Level of Service: OFFICE/OUTPATIENT ESTABLISHED MOD [facility] 30 MIN [53231] Additional E/M codes: VISIT CPLX INHERENT EANDM ASSOC WITH MED * Encounter Status:Closed by LILIAM CARUSO on 02/17/25 PROGRESS Observed: 02/11/2025 5:15 PM Status: COMPLETED Source: [facility] HNO ID: [id number] Author: HATTIE GARCIA APRN.MECHE Service: ? Author Type: Nurse Practitioner Type: Progress Notes Filed: 02/11/2025 17:21 Note Text: [facility] Keven Ohara is a 74 year old female. Patient presents with: IV site pain: Left forearm x 2 days with fever HPI Right Arm Pain and Swelling: - Severe pain and swelling in the right arm, particularly around the prior IV site, following recent hospitalization. - Difficulty bending fingers due to pain. - Noticed slight improvement compared to last night. - Reports multiple IV site changes during hospitalization. Fever: - Experienced fever this morning and believes she had one last night as well. Atrial Fibrillation: - Hospitalized over the weekend for atrial fibrillation; discharged yesterday around 1500. - Currently taking metoprolol and Xarelto. - Has an appointment for ablation on March 22. - Denies current chest pain or dyspnea. - No nausea today; experienced nausea last week. Review of Systems Constitutional: Positive for fever. Negative for chills and fatigue. Respiratory: Negative for cough, shortness of breath and wheezing. Cardiovascular: Positive for palpitations (intermittent with known Atrial Fibrillation). Negative for chest pain and leg swelling. Gastrointestinal: Negative for diarrhea, nausea and vomiting. Musculoskeletal: Negative for myalgias. Skin: Wound: Left arm swelling, redness and warmth post IV site and removal yesterday. Hematological: Negative for adenopathy. Constitutional: (+) fever, (+) chills Cardiovascular: (-) chest pain, (-) palpitations Respiratory: (-) shortness of breath Gastrointestinal: (-) nausea Musculoskeletal: (+) arm tenderness, (+) finger stiffness, (+) arm pain Skin: (+) arm redness, (+) hand swelling Objective BP 130/70 Pulse 60 Temp 37.8 ?C (100 ?F) (Tympanic) Resp 18 Wt 71.1 kg (156 lb 12 oz) LMP 08/31/2009 SpO2 97% BMI 26.91 kg/m? Physical Exam Vitals reviewed. Constitutional: General: She is not in acute distress. Appearance: Normal appearance. She is not ill-appearing or toxic-appearing. Cardiovascular: Rate and Rhythm: Normal rate and regular rhythm. Pulses: Normal pulses. Heart sounds: Normal heart sounds. Pulmonary: Effort: Pulmonary effort is normal. Breath sounds: Normal breath sounds. Abdominal: General: Bowel sounds are normal. Palpations: Abdomen is soft. Skin: General: Skin is warm and dry. Capillary Refill: Capillary refill takes less than 2 seconds. Comments: Left forearm post IV sites x 2 with swelling, ecchymosis, tenderness and warmth from left wrist, up toward antecubital space approximately 11cm in length and extends approximately 7.5 cm wide Neurological: Mental Status: She is alert and oriented to person, place, and time. General: No acute distress. CV: Irregular rhythm. MSK/Ext: Right hand and arm swelling, erythema and tenderness at IV site, limited finger flexion. ASSESSMENT/PLAN: 1. Cellulitis of other specified site - ICD9: 682.8, ICD10: L03.818 - Begin treatment with Augmentin 500 mg Q8hrs - AMOXICILLIN 875 MG-POTASSIUM CLAVULANATE 125 MG TABLET Cleansed skin, applied bacitracin and soft sleeve then wrapped with IVON lightly to compress. Education given with marking of wound, if any extension beyond the border marked occurs, she is to call PCP or GO TO ED. Winston Verbalized understanding and agreement with plan of care. Will seek further treatment if any worsening of symptoms occurs. Recording using [employer] software for draft documentation of the visit was discussed with the patient/authorized merchandiser retail representative; all questions welcomed and answered. Patient/authorized merchandiser retail representative agreed to proceed Patient given educational materials - see patient instructions. Discussed use, benefit, and side effects of prescribed medications. All patient questions answered. Pt voiced understanding and agrees with treatment plan. Patient advised to follow up with PCP within one week, or sooner if symptoms worsen or persist. If symptoms become severe- GO TO ED. Patient agreeable with treatment plan. Hattie Garcia APRN.[employer] UP OPERATOR [employer]OL History and Record Review Clinical information obtained from an independent historian. History obtained from or confirmed by: family member. External record(s) reviewed: prior inpatient record. Findings from review of inpatient records: Recent admission for A Fib Differential Diagnoses - Cellulitis/Phlebitis is more likely for the following reason(s): Recent IV sites and hospitalization, suggested by HANDP Disposition The patient was discharged. CNOV Observed: 02/11/2025 4:30 PM Status: COMPLETED Source: [facility] Office Visit (WOUCA) WINSTON OHARA ([id number]) 1950 F NFR Date Time Provider Department 02/11/25 4:30 PM HATTIE GARCIA During your visit today, we recorded the following information about you: Temperature Pulse Respiration Blood pressure 100 degrees 60/minute 18/minute 130/70 Weight 71.1 kg Hattie Garcia, NATALIE.[employer] UP OPERATOR TOOL 02/11/2025 5:05 PM Signed R.I.C.E. The general care of your injury includes the following: Resting, Icing, Compressing and Elevating the injured area. Remember this as "RICE." REST: Limit the use of the injured body part. ICE: By applying ice to the affected area, swelling and pain can be reduced. Place some ice cubes in a re-sealable (Ziploc) bag and add some water. Put a thin washcloth between the bag and your skin. Apply the ice bag to the area for at least 20 minutes. Do this at least 4 times per day. Using the ice for longer times and more frequently is OK. NEVER APPLY ICE DIRECTLY TO THE SKIN. COMPRESS: Compression means to apply pressure around the injured area such as with a splint, cast or an ivon bandage. Compression decreases swelling and improves comfort. Compression should be tight enough to relieve swelling but not so tight as to decrease circulation. Increasing pain, numbness, tingling, or change in skin color, are all signs of decreased circulation. ELEVATE: Elevate the injured part. For example, elevate your foot by placing it on a chair while sitting, or propping it up on pillows when lying down. Hattie Garcia APRN.MECHE 02/11/2025 5:21 PM Signed [facility] Subjective Winston Ohara is a 74 year old female. Patient presents with: IV site pain: Left forearm x 2 days with fever HPI Right Arm Pain and Swelling: - Severe pain and swelling in the right arm, particularly around the prior IV site, following recent hospitalization. - Difficulty bending fingers due to pain. - Noticed slight improvement compared to last night. - Reports multiple IV site changes during hospitalization. Fever: - Experienced fever this morning and believes she had one last night as well. Atrial Fibrillation: - Hospitalized over the weekend for atrial fibrillation; discharged yesterday around 1500. - Currently taking metoprolol and Xarelto. - Has an appointment for ablation on March 22. - Denies current chest pain or dyspnea. - No nausea today; experienced nausea last week. Review of Systems Constitutional: Positive for fever. Negative for chills and fatigue. Respiratory: Negative for cough, shortness of breath and wheezing. Cardiovascular: Positive for palpitations (intermittent with known Atrial Fibrillation). Negative for chest pain and leg swelling. Gastrointestinal: Negative for diarrhea, nausea and vomiting. Musculoskeletal: Negative for myalgias. Skin: Wound: Left arm swelling, redness and warmth post IV site and removal yesterday. Hematological: Negative for adenopathy. Constitutional: (+) fever, (+) chills Cardiovascular: (-) chest pain, (-) palpitations Respiratory: (-) shortness of breath Gastrointestinal: (-) nausea Musculoskeletal: (+) arm tenderness, (+) finger stiffness, (+) arm pain Skin: (+) arm redness, (+) hand swelling Objective BP 130/70 Pulse 60 Temp 37.8 ?C (100 ?F) (Tympanic) Resp 18 Wt 71.1 kg (156 lb 12 oz) LMP 08/31/2009 SpO2 97% BMI 26.91 kg/m? Physical Exam Vitals reviewed. Constitutional: General: She is not in acute distress. Appearance: Normal appearance. She is not ill-appearing or toxic-appearing. Cardiovascular: Rate and Rhythm: Normal rate and regular rhythm. Pulses: Normal pulses. Heart sounds: Normal heart sounds. Pulmonary: Effort: Pulmonary effort is normal. Breath sounds: Normal breath sounds. Abdominal: General: Bowel sounds are normal. Palpations: Abdomen is soft. Skin: General: Skin is warm and dry. Capillary Refill: Capillary refill takes less than 2 seconds. Comments: Left forearm post IV sites x 2 with swelling, ecchymosis, tenderness and warmth from left wrist, up toward antecubital space approximately 11cm in length and extends approximately 7.5 cm wide Neurological: Mental Status: She is alert and oriented to person, place, and time. General: No acute distress. CV: Irregular rhythm. MSK/Ext: Right hand and arm swelling, erythema and tenderness at IV site, limited finger flexion. ASSESSMENT/PLAN: 1. Cellulitis of other specified site - ICD9: 682.8, ICD10: L03.818 - Begin treatment with Augmentin 500 mg Q8hrs - AMOXICILLIN 875 MG-POTASSIUM CLAVULANATE 125 MG TABLET Cleansed skin, applied bacitracin and soft sleeve then wrapped with IVON lightly to compress. Education given with marking of wound, if any extension beyond the border marked occurs, she is to call PCP or GO TO ED. Winston Verbalized understanding and agreement with plan of care. Will seek further treatment if any worsening of symptoms occurs. Recording using [employer] software for draft documentation of the visit was discussed with the patient/authorized merchandiser retail representative; all questions welcomed and answered. Patient/authorized merchandiser retail representative agreed to proceed Patient given educational materials - see patient instructions. Discussed use, benefit, and side effects of prescribed medications. All patient questions answered. Pt voiced understanding and agrees with treatment plan. Patient advised to follow up with PCP within one week, or sooner if symptoms worsen or persist. If symptoms become severe- GO TO ED. Patient agreeable with treatment plan. Hattie Garcia APRN.[employer] History and Record Review Clinical information obtained from an independent historian. History obtained from or confirmed by: family member. External record(s) reviewed: prior inpatient record. Findings from review of inpatient records: Recent admission for A Fib Differential Diagnoses - Cellulitis/Phlebitis is more likely for the following reason(s): Recent IV sites and hospitalization, suggested by HANDP Disposition The patient was discharged. Allergies As of Date: 02/11/2025 Noted Allergy Reaction FLAGYL (METRONIDAZOLE) 10/28/2019 8 - GI Upset FLECAINIDE 12/15/2020 14 - Other: See Comments Comments: Caused irregular EKG SOB Date Reviewed: 02/11/2025 Reviewed by: Hattie Garcia APRN.[employer] SET UP OPERATOR TOOL - Fully Assessed Reason for Visit: IV site pain [Other] Cmt: Left forearm x 2 days with fever Primary Visit Diagnosis:Cellulitis of other specified site [L03.818] Order(s):amoxicillin-clavulanate potassium (AUGMENTIN) 875-125 mg per tabletTake 1 tablet by mouth two times a day for 7 days.Disp: 14 tabletRfl: 0 Prescriptions as of 02/11/2025 - amiodarone (PACERONE) 200 mg tablet Take 1 tablet by mouth once daily. - metoprolol succinate ER (TOPROL XL) 50 mg 24 hr tablet once daily. - amoxicillin-clavulanate potassium (AUGMENTIN) 875-125 mg per tablet Take 1 tablet by mouth two times a day for 7 days. - furosemide (LASIX) 40 mg tablet Take 40 mg by mouth as needed. - sertraline (ZOLOFT) 25 mg tablet Take 1 tablet by mouth once daily. - zolpidem (AMBIEN) 5 mg tablet Take 1 tablet by mouth at bedtime as needed for sedation for up to 180 days. Patient should start on January 11, 2025. - cholecalciferol, vitamin D3, 62.5 mcg (2,500 unit) chew Take 2 capsules by mouth daily after dinner. (actually chewable tablets) - losartan (COZAAR) 100 mg tablet Take 100 mg by mouth once daily. - XARELTO 20 mg tablet Take 1 tablet by mouth once daily. (cardiology filling) - sotalol (BETAPACE) 80 mg tablet Take 80 mg by mouth twice daily. - fluticasone (FLONASE) 50 mcg/actuation nasal spray Use 2 Sprays in each nostril once daily. - acetaminophen (TYLENOL) 500 mg tablet EVERY 6 HOURS NEEDED - bismuth subsalicylate(PEPTO-BISMOL 262 MG TAB) Takes 2 pills daily as needed for IBS flare up Meds Comments as of 08/01/2007: All medications have been reviewed today/August 01, 2007 Jessica Velásquez [employer] Problem List As Of Date 02/11/2025 Noted Resolved Family history of malignant neoplasm [...] [I10] 01/17/2021 Vitamin D deficiency [E55.9] 01/17/2021 Other instructions from your clinician: R.I.C.E. The general care of your injury includes the following: Resting, Icing, Compressing and Elevating the injured area. Remember this as "RICE." REST: Limit the use of the injured body part. ICE: By applying ice to the affected area, swelling and pain can be reduced. Place some ice cubes in a re-sealable (Ziploc) bag and add some water. Put a thin washcloth between the bag and your skin. Apply the ice bag to the area for at least 20 minutes. Do this at least 4 times per day. Using the ice for longer times and more frequently is OK. NEVER APPLY ICE DIRECTLY TO THE SKIN. COMPRESS: Compression means to apply pressure around the injured area such as with a splint, cast or an ivon bandage. Compression decreases swelling and improves comfort. Compression should be tight enough to relieve swelling but not so tight as to decrease circulation. Increasing pain, numbness, tingling, or change in skin color, are all signs of decreased circulation. ELEVATE: Elevate the injured part. For example, elevate your foot by placing it on a chair while sitting, or propping it up on pillows when lying down. Prescriptions ordered this encounter Disp Refills Start End AMOXICILLIN 875 MG-POTASSIUM CLAVULA* 14 t* 0 02/11/2025 02/18/2025 Route: PO Sig: Take 1 tablet by mouth two times a day for 7 days. Level of Service: OFFICE/OUTPATIENT ESTABLISHED LOW [facility] 20 MIN [[id number]] Encounter Status:Closed by HATTIE GARCIA on 02/11/25 PROGRESS Observed: 12/26/2024 10:20 AM Status: COMPLETED Source: [facility] ID: [id number] Author: LILIAM CARUSO MD Service: ? Author Type: Physician Type: Progress Notes Filed: 12/26/2024 11:24 Note Text: This note was created using [employer]ikly[employer]. Subjective Winston Ohara is a 74 year old female. SUBJECTIVE: Winston Ohara is a 74-year-old female with a history of right knee osteoarthritis and atrial fibrillation, presenting for a 6-month follow-up. Winston reports worsening right knee pain, which she describes as "bone on bone" with associated clicking. She believes this is [...] undergoing an ablation procedure recommended by her mutual fund manager, Dr. Ling, and seeks advice on [...] Height as of 06/14/24: 162.6 cm (5' 4"). Weight as of this encounter: 70.1 kg [...] Abs Lymph 1.00 - 4.00 k/uL 1.00 Villalba% % 7.8 Abs Villalba <0.87 k/uL 0.40 Eosin% % 3.3 Abs [...] mmol/L 13 10 12 9 eGFR >=60 mL/min/1.73m? 78 69 83 75 Cholesterol, Total <200 [...] Zolpidem; reordered 90-day supply with refill to [facility]. - Continue current regimen. # Paroxysmal atrial fibrillation (HCC) (I48.0) - Recent episode post-COVID; currently in normal sinus rhythm with occasional ectopic beats. - Managed with Sotalol; advised against altering dosage without cardiology consultation. - Discussed potential benefits of ablation to maintain sinus rhythm and reduce medication dependency. - Consider referral to Dr. Gil, network desktop support specialist at [facility], or other [facility] provider, for evaluation and second opinion. - Advised to schedule an appointment with network desktop support specialist to discuss ablation and obtain surgical [...] (M17.11) - Confirmed diagnosis of osteoarthritis with "bone on bone" changes and crepitus. - Discussed impact of [...] D levels. - Continue current supplementation. Liliam Caruso MD Recording using [employer] software for draft documentation of the visit was discussed with the patient/authorized merchandiser retail representative; all questions welcomed and answered. Patient/authorized merchandiser retail representative agreed to proceed CNOV Observed: 12/26/2024 10:20 AM Status: COMPLETED Source: [facility] Office Visit (INTMWS) WINSTON OHARA ([id number]) 1950 F NFR Date Time Provider Department 12/26/24 10:20 AM LILIAM CARUSO INTMWS During your visit today, we recorded the following information about you: Pulse Respiration Blood pressure Weight 88/minute 14/minute 136/62 70.1 kg Liliam Caruso MD 12/26/2024 11:24 AM Signed This note was created using [employer]. Subjective Winston Ohara is a 74 year old female. SUBJECTIVE: Wniston Ohara is a 74-year-old female with a history of right knee osteoarthritis and atrial fibrillation, presenting for a 6-month follow-up. Winston reports worsening right knee pain, which she describes as "bone on bone" with associated clicking. She believes this is [...] undergoing an ablation procedure recommended by her mutual fund manager, Dr. Ling, and seeks advice on [...] Height as of 06/14/24: 162.6 cm (5' 4"). Weight as of this encounter: 70.1 kg [...] Abs Lymph 1.00 - 4.00 k/uL 1.00 Villalba% % 7.8 Abs Villalba <0.87 k/uL 0.40 Eosin% % 3.3 Abs [...] mmol/L 13 10 12 9 eGFR >=60 mL/min/1.73m? 78 69 83 75 Cholesterol, Total <200 [...] Zolpidem; reordered 90-day supply with refill to [facility]. - Continue current regimen. # Paroxysmal atrial fibrillation (HCC) (I48.0) - Recent episode post-COVID; currently in normal sinus rhythm with occasional ectopic beats. - Managed with Sotalol; advised against altering dosage without cardiology consultation. - Discussed potential benefits of ablation to maintain sinus rhythm and reduce medication dependency. - Consider referral to Dr. Gil, network desktop support specialist at [facility], or other [facility] provider, for evaluation and second opinion. - Advised to schedule an appointment with network desktop support specialist to discuss ablation and obtain surgical [...] (M17.11) - Confirmed diagnosis of osteoarthritis with "bone on bone" changes and crepitus. - Discussed impact of [...] D levels. - Continue current supplementation. Liliam Caruso MD Recording using [employer] software for draft documentation of the visit was discussed with the patient/authorized merchandiser retail representative; all questions welcomed and answered. Patient/authorized merchandiser retail representative agreed to proceed Liliam Caruso MD 12/26/2024 11:24 AM Signed - Continue taking sertraline at your current dose; refill has been sent to [facility] and will auto-refill in May. - Fill your new zolpidem (Ambien) prescription--90 tablets with refills--at [facility]; you may parts picker a 30-day supply once your previous fill is 30 days old. - Stop taking Lasix; it has been removed from your active medications. - Discontinue Bactroban (mupirocin) cream; you no longer need this. - Continue sotalol twice daily as prescribed; do not adjust your dose without approval from your mutual fund manager. - Keep taking your vitamin D [...] low-impact movements, walking as tolerated, or even ?floss dance? moves while you watch TV. - Eat more daxux-5-uilv foods--such as fatty fish, flaxseed, edamame, and walnuts--to support your good cholesterol levels. - Schedule a consultation with an inspector handbag frames (EP) to discuss AFib ablation. Once you?ve chosen a provider, let us know so [...] as part of those labs. - When you?re ready for right knee evaluation or replacement, schedule that with your orthopedic surgeon and confirm cardiology clearance before surgery. Referring Provider: LILIAM CARUSO [[id number]] Allergies As of Date: 12/26/2024 Noted Allergy Reaction FLAGYL (METRONIDAZOLE) 10/28/2019 8 - GI Upset FLECAINIDE 12/15/2020 14 - Other: See Comments Comments: Caused irregular EKG SOB Date Reviewed: 12/26/2024 Reviewed by: Janessa Petty LPN - Fully Assessed Reason for Visit: 6 month f/up [Other] Primary Visit Diagnosis:Psychophysiological insomnia [F51.04] Comment:Stable on Ambien; effective and needs to stay on to keep sleep regular to prevent exacerbation of anxiety from sleep deprivation Other Visit Diagnoses:Paroxysmal atrial fibrillation (HCC) [I48.0] Hypercholesterolemia [E78.00] Chronic pain of right knee [M25.561, G89.29] Primary osteoarthritis of right knee [M17.11] Essential hypertension [I10] Vitamin D deficiency [E55.9] Order(s):sertraline (ZOLOFT) 25 mg tabletTake 1 tablet by mouth once daily.Disp: 90 tabletRfl: 3 [START ON 01/11/2025] zolpidem (AMBIEN) 5 mg tabletTake 1 tablet by mouth at bedtime as needed for sedation for up to 180 days. Patient should start on January 11, 2025.Disp: 90 tabletRfl: 1 Prescriptions as of 12/26/2024 - sertraline (ZOLOFT) 25 mg tablet Take 1 tablet by mouth once daily. - zolpidem (AMBIEN) 5 mg tablet Take 1 tablet by mouth at bedtime as needed for sedation for up to 180 days. Patient should start on January 11, 2025. - cholecalciferol, vitamin D3, 62.5 mcg (2,500 unit) chew Take 2 capsules by mouth daily after dinner. (actually chewable tablets) - losartan (COZAAR) 100 mg tablet Take 100 mg by mouth once daily. - XARELTO 20 mg tablet Take 1 tablet by mouth once daily. (cardiology filling) - sotalol (BETAPACE) 80 mg tablet Take 80 mg by mouth twice daily. - fluticasone (FLONASE) 50 mcg/actuation nasal spray Use 2 Sprays in each nostril once daily. - acetaminophen (TYLENOL) 500 mg tablet EVERY 6 HOURS NEEDED - bismuth subsalicylate(PEPTO-BISMOL 262 MG TAB) Takes 2 pills daily as needed for IBS flare up Meds Comments as of 08/01/2007: All medications have been reviewed today/August 01, 2007 Jessica Velásquez Bread Racker Problem List As Of Date 12/26/2024 Noted Resolved Family history of malignant neoplasm [...] [I10] 01/17/2021 Vitamin D deficiency [E55.9] 01/17/2021 Other instructions from your clinician: - Continue taking sertraline at your current dose; refill has been sent to [facility] and will auto-refill in May. - Fill your new zolpidem (Ambien) prescription--90 tablets with refills--at [facility]; you may parts picker a 30-day supply once your previous fill is 30 days old. - Stop taking Lasix; it has been removed from your active medications. - Discontinue Bactroban (mupirocin) cream; you no longer need this. - Continue sotalol twice daily as prescribed; do not adjust your dose without approval from your mutual fund manager. - Keep taking your vitamin D [...] low-impact movements, walking as tolerated, or even ?floss dance? moves while you watch TV. - Eat more jgzrl-9-ifby foods--such as fatty fish, flaxseed, edamame, and walnuts--to support your good cholesterol levels. - Schedule a consultation with an inspector handbag frames (EP) to discuss AFib ablation. Once you?ve chosen a provider, let us know so [...] as part of those labs. - When you?re ready for right knee evaluation or replacement, schedule that with your orthopedic surgeon and confirm cardiology clearance before surgery. Prescriptions ordered this encounter Disp Refills Start End SERTRALINE 25 MG TABLET 90 t* 3 12/26/2024 Cmt: Fill this RX when due; cancel refills on prior RX Route: PO Sig: Take 1 tablet by mouth once daily. ZOLPIDEM 5 MG TABLET 90 t* 1 01/11/2025 07/10/2025 Route: PO Sig: Take 1 tablet by mouth at bedtime as needed for sedation for up to 180 days. Patient should start on January 11, 2025. Medications Discontinued During This Encounter Prescriptions - furosemide (LASIX) 40 mg tablet (Discontinued) Reported on 08/29/2024 - mupirocin (BACTROBAN) 2 % ointment (Discontinued) Reported on 08/29/2024 - sertraline (ZOLOFT) 25 mg tablet (Discontinued) Take 1 tablet by mouth once daily. - zolpidem (AMBIEN) 5 mg tablet (Discontinued) Take 1 tablet by mouth at bedtime as needed for sedation for up to 180 days. Patient should start on December 15, 2024. Level of Service: OFFICE/OUTPATIENT ESTABLISHED MOD MDM 30 MIN [99690] Additional E/M codes: VISIT CPLX INHERENT EANDM ASSOC WITH MED * Disposition: Return in about 6 months (around 06/27/2025) for 6 months follow up, add next 1 in 2025. Follow-up and Disposition History for Encounter Date Provider Department Center 12/26/2024 [id number] CARUSO [facility] Encounter Status:Closed by LILIAM CARUSO on 12/26/24 25(OH)D3 SERPL-MCNC Collected: 12/24/19 25 10:23 AM Status: F Source: [facility] Order Comment: Specimen Type : BLOOD SPECIMEN Ordering Facility: [facility] Address: [address] [place] [address] TYPE CODE TESTS RESULT OUT OF RANGE REFERENCE UNITS LAB 1988-([facility]) 25(OH)D3 SerPl-mCnc 36.6 31.0-80.0 ng/mL Result Comment: Classificati on of 25 OH Vitamin D status: Deficiency/Insufficiency: < or = 30 ng/ml. Sufficiency/Optimal Levels: 31-80 ng/mL Toxicity: > 100 ng/mL. Test performed by chemiluminescent immunoassay. Performed By: #### 1988-08 ## ## [facility] CLIA [id number] [address] [place] [address] [place] CBC PNL BLD AUTO Collected: 10:23 AM Status: F Source: [facility] Order Comment: Specimen Type : BLOOD SPECIMEN Ordering Facility: [facility] Address: [address] [place] [address] TYPE CODE TESTS RESULT OUT OF RANGE REFERENCE UNITS LAB 6690-2(LOINC) WBC # Bld Auto 5.45 3.70-11.00 k/uL LAB 789-8(LOINC) RBC # Bld Auto 4.33 3.90-5.20 m/uL LAB 718-7(LOINC) Hgb Bld-mCnc 13.2 11.5-15.5 g/dL LAB 4544-3(LOINC) Hct VFr Bld Auto 40.6 36.0-46.0 % LAB 787-2(LOINC) MCV RBC Auto 93.8 80.0-100.0 fL LAB 785-6(LOINC) MCH RBC Qn Auto 30.5 26.0-34.0 pg LAB 786-4(LOINC) MCHC RBC Auto-mCnc 32.5 30.5-36.0 g/dL LAB 27608-3(LOINC) RDW RBC-Rto 13.0 11.5-15.0 % LAB 777-3(LOINC) Platelet # Bld Auto 194 150-400 k/uL LAB 01781-9(LOINC) PMV Bld Auto 10.2 9.0-12.7 fL LAB 771-6(LOINC) nRBC # Bld Auto <0.01 <0.01 k/uL Performed By: #### 63977-5 # ### [facility] CLIA [id number] [address] [place] [address] [place] [address] [place] COMP METAB 2000 PNL SERPL Collected: 10:23 AM Status: F Source: [facility] Order Comment: Specimen Type : BLOOD SPECIMEN Ordering Facility: [facility] Address: [address] [place] [address] TYPE CODE TESTS RESULT OUT OF RANGE REFERENCE UNITS LAB 2885-2(LOINC) Prot SerPl-mCnc 6.9 6.3-8.0 g/dL LAB 1751-7(LOINC) Albumin SerPl-mCnc 4.2 3.9-4.9 g/dL LAB 91650-9(LOINC) Calcium SerPl-mCnc 9.8 8.5-10.2 mg/dL LAB 1975-2(LOINC) Bilirub SerPl-mCnc 0.7 0.2-1.3 mg/dL LAB 6768-6(LOINC) ALP SerPl-cCnc 136 High 34-123 U/L LAB 1920-8(LOINC) AST SerPl-cCnc 24 13-35 U/L LAB 1742-6(LOINC) ALT SerPl-cCnc 12 7-38 U/L LAB 2345-7(LOINC) Glucose SerPl-mCnc 92 74-99 mg/dL Result Comment: The [place] Diabetes Association (ADA) provides guidance for cutoff [...] Standards of Medical Care in Diabetes 2016, [place] Diabetes Association. Diabetes Care. 2016.39(Suppl 1). LAB 3094-0(LOINC) BUN SerPl-mCnc 18 7-21 mg/ dL LAB 2160-0(LOINC) Creat SerPl-mCnc 0.83 0.58-0.96 mg/dL LAB 2951-2(LOINC) Sodium SerPl-sCnc 141 136-144 mmol/L LAB 2823-3(LOINC) Potassium SerPl-sCnc 4.8 3.7-5.1 mmol/L LAB 2075-0(LOINC) Chloride SerPl-sCnc 107 98-107 mmol/L LAB 2028-9(LOINC) CO2 SerPl-sCnc 25 22-30 mmo l/L LAB 61042-1(LOINC) Anion Gap SerPl-sCnc 9 8-15 mmol/L LAB 70541-2(LOINC) Creatinine + eGFR Pnl SerPlBld 75 >=60 mL/min/1 .73m??? Result Comment: Estimated Gl omerular Filtration Rate (eGFR) is calculated using the 2020 CKD-EPI creatinine equation. This equation utilizes serum creatinine, sex, and age as parameters. The creatinine assay has traceable calibration to isotope dilution-mass spectrometry. Refer to KDIGO guidelines for clinical interpretation. In patients with unstable renal function, e.g. those with acute kidney injury, the eGFR may not accurately reflect actual GFR. Performed By: #### 16534-1, 47591-9 #### [facility] CLIA [id number] [address] [place] [address] [place] LIPID 1996 PNL SERPL Collected: 025 10:23 AM Status: F Source: [facility] Order Comment: Specimen Type : BLOOD SPECIMEN Ordering Facility: [facility] Address: [address] [place] [address] TYPE CODE TESTS RESULT OUT OF RANGE REFERENCE UNITS LAB 2093-3(LOINC) Cholest SerPl-mCnc 210 High <200 mg/dL Result Comment: <200 mg/dL, Desirable 200-239 mg/dL, Borderline high >239 mg/dL, High LAB 2571-8(LOINC) Trigl SerPl-mCnc 132 <150 mg/dL Result Comment: <150 mg/dL, Normal 150-199 mg/dL, Borderline high 200-499 mg/dL, High >499 mg/dL, Very high LAB 2084-9(LOINC) HDLc SerPl-mCnc 58 >39 mg/dL Result Comment: 40-59 mg/dL, Acceptable >59 mg/dL, High: Negative risk factor for coronary heart disease <40 mg/dL, Low: Positive risk factor for coronary heart disease LAB 9-1(LOINC) LDLc SerPl-mCnc 129 High <100 mg/dL Result Comment: <100 mg/dL, Optimal 100-129 mg/dL, Near optimal/above optimal 130-159 mg/dL, Borderline high 160-189 mg/dL, High >189 mg/dL, Very high Secondary prevention optimal LDL Cholesterol levels are recommended to be <70 mg/dL LDL cholesterol is calculated using the Simpson-NIH equation. LAB 03487-5(LOINC) NonHDLc SerPl-mCnc 152 High <130 mg/dL Result Comment: <130 mg/dL, Optimal 130-159 mg/dL, Near optimal/above optimal 160-189 mg/dL, Borderline high 190-219 mg/dL, High >219 mg/dL, Very high Secondary prevention optimal non HDL Cholesterol levels are recommended to be <100 mg/dL LAB 62824-0(LOINC) VLDLc SerPl Calc-mCnc 23 <30 mg/dL LAB 9830-1(LOINC) Cholest/HDLc SerPl 3.62 <5.10 LAB 91755-9(LOINC) LDLc/HDLc SerPl 2.22 <2.54 Result Comment: Reference: 1. National Cholesterol Education Program ATP III Guideline At-A-Glance Quick Desk Reference: National Heart, Lung, and Blood [place]. National Institutes of Health. 2001: NIH Publication No. 01-3305. 2. An International Atherosclerosis Society position paper: global recommendations for the management of dyslipidemia: executive summary, Atherosclerosis. 2014: 232(2):410-413. LAB FT FASTING TIME 12 hrs Performed By: #### 43636-4, 79806-4 #### [facility] CLIA [id number] [address] [place] [address] [place] SCREENING W BRITTANEY Observed: 5 1:31 PM Status: F Source: [facility] * * *Final Report* * * DATE OF EXAM: Sep 23 2024 1:31PM [facility] 0582 - [facility] SCREENING W BRITTANEY / PROCEDURE REASON: Encounter for screening mammogram for breast cancer * * * * Physician Interpretation * * * * RESULT: [facility] [address] [id number] #[id number] - [facility] SCREENING W BRITTANEY HISTORY: 74 year-old patient [...] Aura Gu M.D. Electronically signed on: 09/24/2024 Senior Sous Chef: MARIA TERESA Transcribe Date/Time: Sep 23 2024 1:18P Dictated by: AURA GU MD This examination was interpreted and the report reviewed and electronically signed by: AURA GU MD on Sep 24 2024 8:52AM EST [id number] PROGRESS Observed: 09/23/2024 1:30 PM Status: COMPLETED Source: [facility] HNO ID: [id number] Author: DENA BRAVO Mammo Tech Service: ? Author Type: Associate Application Developer Type: Progress Notes Filed: 09/23/2024 13:44 Note [...] PATIENT PRESENTS WITH AN IMPLANTABLE OR ATTACHED OUTSOLE LEVELER: No RADIOLOGY DEPARTMENT: Mammography PERIPHERAL IV DATA: Not applicable SIGNED BY: Sean Gutierrez September 23, 2024 1:44 PM PROGRESS Observed: 08/29/2024 7:49 PM Status: COMPLETED Source: [facility] HNO ID: [id number] Author: ANU THOMASON APRN.ENGINE LATHE SET UP OPERATOR TOOL Service: ? Author Type: Nurse Practitioner Type: Progress Notes Filed: 08/29/2024 20:09 Note Text: Molnupiravir Eligibility and Patient Discussion [facility] Formulary Restriction Criteria: Adult outpatients [...] The patient was provided electronically with the "Fact Sheet for Patients, Parents and Caregivers". The patient was also instructed that in addition to the treatment with molnupiravir, he/she should continue to self-isolate and use infection control measures (e.g., wear mask, isolate, social distance, avoid sharing personal items, clean and disinfect "high touch" surfaces, and frequent handwashing) according to CDC guidelines. The patient stated understanding and gave verbal consent to proceeding with molnupiravir treatment. Anu Thomason APRN.[facility] 2024 7:57 PM CC: Patient presents with: [...] BP 141/71 Pulse 63 Temp (!) 38.7 ?C (101.6 ?F) Resp 20 LMP 08/31/2009 SpO2 98% General [...] symptoms occur. Patient agreeable to treatment plan. Anu Thomason APRN.ENGINE LATHE SET UP OPERATOR TOOL CNOV Observed: 08/29/2024 7:30 PM Status: COMPLETED Source: [facility] Office Visit (WSTR) WINSTON OHARA ([id number]) 1950 F NFR Date Time Provider Department 08/29/24 7:30 PM [facility] During your visit today, we recorded the following information about you: Temperature Pulse Respiration Blood pressure 101.6 degrees 63/minute 20/minute 141/71 Anu Thomason APRN.ENGINE LATHE SET UP OPERATOR TOOL 08/29/2024 8:09 PM Signed Molnupiravir Eligibility and Patient Discussion [facility] Formulary Restriction Criteria: Adult outpatients [...] The patient was provided electronically with the "Fact Sheet for Patients, Parents and Caregivers". The patient was also instructed that in addition to the treatment with molnupiravir, he/she should continue to self-isolate and use infection control measures (e.g., wear mask, isolate, social distance, avoid sharing personal items, clean and disinfect "high touch" surfaces, and frequent handwashing) according to CDC guidelines. The patient stated understanding and gave verbal consent to proceeding with molnupiravir treatment. Anu Thomason APRN.ENGINE LATHE SET UP OPERATOR TOOL August 29, 2024 7:57 PM CC: Patient [...] BP 141/71 Pulse 63 Temp (!) 38.7 ?C (101.6 ?F) Resp 20 LMP 08/31/2009 SpO2 98% General [...] symptoms occur. Patient agreeable to treatment plan. Anu Thomason APRN.Anu Cheatham APRN.CNP 08/29/2024 7:56 PM Signed Fact Sheet for Patients And Caregivers Emergency Use Authorization (EUA) Of LAGEVRIO? (molnupiravir) capsules For Coronavirus Disease 2019 (COVID-19) What is the most important information I should know about LAGEVRIO? LAGEVRIO may cause serious side effects, including: LAGEVRIO may cause harm to your unborn baby. It is not known if LAGEVRIO will harm your baby if you take LAGEVRIO during . LAGEVRIO is not recommended for use in . LAGEVRIO has not been studied in . LAGEVRIO was studied in animals only. When LAGEVRIO was given to animals, LAGEVRIO caused harm to their unborn babies. You and your healthcare provider may decide that you should take LAGEVRIO during if there are no other COVID-19 treatment options approved or [...] method of control (contraception) consistently and correctly during treatment with LAGEVRIO and for 4 days after the last dose of LAGEVRIO. Talk to your healthcare provider about reliable control methods. Before starting treatment with LAGEVRIO your healthcare provider may do a test to see if you are before starting treatment with LAGEVRIO. Tell your healthcare provider right away if you become or think you may be during treatment with LAGEVRIO. Registry: There is a registry for individuals who take LAGEVRIO during . The purpose of this program is to collect information about the health of you and your baby. If you are or become during treatment with LAGEVRIO, you are encouraged to report your use of LAGEVRIO during to this registry at https://covid-pr.[employer] or . For individuals who are sexually active with partners who are able to become : It is not known if LAGEVRIO can affect sperm. While the risk is regarded as low, animal studies to fully assess the potential for LAGEVRIO to affect the babies of males treated with LAGEVRIO have not been completed. A reliable method [...] issued an Emergency Use Authorization (EUA) to make LAGEVRIO available during the COVID-19 pandemic (for more details about an EUA please see ?What is an Emergency Use Authorization?? at the end of this document). LAGEVRIO is not an FDA-approved medicine in the [place]. Read this Fact Sheet for information about LAGEVRIO. Talk to your healthcare provider about your options if you have any questions. It is your choice to take LAGEVRIO. What is COVID-19? COVID-19 is caused by a virus called a coronavirus. You can get COVID-19 through close contact with another person who has the virus. COVID-19 illnesses have ranged from very dhpx-fm-oxlriq, including illness resulting in . While information so far suggests that most COVID-19 illness is mild, serious illness can happen and may cause some of your other medical conditions to [...] use of LAGEVRIO for the treatment of mild-tomoderate COVID-19 in adults under an EUA. For more information on EUA, see the ?What is an Emergency Use Authorization (EUA)?? section at the end of this Fact [...] serious illnesses Take any medicines including prescription, xdxt-fbs-ineqidu medicines, vitamins, and herbal products. How do [...] orogastric (OG) tube, follow the instructions below: ?How to take or give a dose of LAGEVRIO through a nasogastric (NG) or orogastric (OG) feeding tube.? You must have an NG or OG that is size 12 [place] (FR) or larger. If you miss a dose of LAGEVRIO: If it has been less than 10 hours since the missed dose, take it as soon as you remember. If it has been more than 10 hours since the missed dose, skip the missed dose and take your dose at the next scheduled time. Do not double the [...] tell you what size catheter tip syringe you will need to take or give a dose of LAGEVRIO. Place the needed supplies on a clean work surface. Follow your healthcare provider?s instructions on how to flush the NG or OG feeding tube. Flush the NG or OG feeding tube with 5 mL [...] contents and water well for 3 minutes. The capsule contents may not dissolve completely. Remove the [...] any capsule contents left in the container or catheter tip syringe. Use the same catheter tip syringe to flush the NG or OG feeding tube 2 times with 5 mL of water (10mL total). Rinse the container, lid and catheter tip syringe well with clean water after use. Place on a clean paper towel until next use. What are the important possible side effects of LAGEVRIO? See, ?What is the most important information I should know about LAGEVRIO?? Allergic Reactions. Allergic reactions can happen in [...] to treat people with COVID-19. Go to https://www.fda.gov/oifcuqjbt-wkjpsliigixb-ewn-response/ufj-lvoppimmzrppcpx-cro- -policy-framework/mrvpfuqto-oof-rwcxfpbzsimca for more information. It is your choice [...] to FDA MedWatch at www.fda.gov/medwatch or call 2-365-XQK-1668 (1575.882.6435). How should I store LAGEVRIO? Store LAGEVRIO capsules at room temperature between 68?F to 77?F (20?C to 25?C). Keep LAGEVRIO and all medicines out of the reach of children. How can I learn more about COVID-19? Ask your healthcare provider. Visit www.cdc.gov/COVID19 Contact your local or state public health department. Call Vahna Sharp AND [employer] at (toll free in the [place] Visit www.[employer] What Is an Emergency Use Authorization (EUA)? The [place] FDA has made LAGEVRIO available under an emergency access mechanism called an Emergency Use Authorization (EUA) The EUA is supported by a [place] of Health and Human Service (HHS) declaration that circumstances exist to justify emergency use of drugs and biological products during the COVID-19 pandemic. LAGEVRIO for the treatment of adults with a current diagnosis of cmxi-cx-lqhjaqam COVID-19 who are at high risk for [...] be used under the EUA). Mario. for: [employer] AND [employer] [address] For patent information: www.MedArkive/research/patent Copyright ? 5044-5137 Vahna AND [employer] [place], [place], [place] and its affiliates. All rights reserved. [id number] Revised: August 2022 Allergies As of Date: 08/29/2024 Noted Allergy Reaction FLAGYL (METRONIDAZOLE) 10/28/2019 8 - GI Upset FLECAINIDE 12/15/2020 14 - Other: See Comments Comments: Caused irregular EKG SOB Date Reviewed: 08/29/2024 Reviewed by: Kamila Arredondo LPN - Fully Assessed Reason for Visit: Covid Positive [4049] Cmt: Tested today + for Covid, after exposure on Sat, fever, achy, eyes watery, runny nose, slight cough, stomach ache, diarrhea, ear pain x yesterday Primary Visit Diagnosis:COVID [U07.1] Order(s):molnupiravir 200 mg capsuleTake 4 capsules by mouth two times a day for 5 days.Disp: 40 capsuleRfl: 0 Prescriptions as of 08/29/2024 - molnupiravir 200 mg capsule Take 4 capsules by mouth two times a day for 5 days. 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 (molnupiravir) capsules For Coronavirus Disease 2019 (COVID-19) What is the most important information I should know about LAGEVRIO? LAGEVRIO may cause serious side effects, including: LAGEVRIO may cause harm to your unborn baby. It is not known if LAGEVRIO will harm your baby if you take LAGEVRIO during . LAGEVRIO is not recommended for use in . LAGEVRIO has not been studied in . LAGEVRIO was studied in animals only. When LAGEVRIO was given to animals, LAGEVRIO caused harm to their unborn babies. You and your healthcare provider may decide that you should take LAGEVRIO during if there are no other COVID-19 treatment options approved or [...] method of control (contraception) consistently and correctly during treatment with LAGEVRIO and for 4 days after the last dose of LAGEVRIO. Talk to your healthcare provider about reliable control methods. Before starting treatment with LAGEVRIO your healthcare provider may do a test to see if you are before starting treatment with LAGEVRIO. Tell your healthcare provider right away if you become or think you may be during treatment with LAGEVRIO. Registry: There is a registry for individuals who take LAGEVRIO during . The purpose of this program is to collect information about the health of you and your baby. If you are or become during treatment with LAGEVRIO, you are encouraged to report your use of LAGEVRIO during to this registry at https://covid-pr.[employer].iDreamBooks or . For individuals who are sexually active with partners who are able to become : It is not known if LAGEVRIO can affect sperm. While the risk is regarded as low, animal studies to fully assess the potential for LAGEVRIO to affect the babies of males treated with LAGEVRIO have not been completed. A reliable method [...] issued an Emergency Use Authorization (EUA) to make LAGEVRIO available during the COVID-19 pandemic (for more details about an EUA please see ?What is an Emergency Use Authorization?? at the end of this document). LAGEVRIO is not an FDA-approved medicine in the [place]. Read this Fact Sheet for information about LAGEVRIO. Talk to your healthcare provider about your options if you have any questions. It is your choice to take LAGEVRIO. What is COVID-19? COVID-19 is caused by a virus called a coronavirus. You can get COVID-19 through close contact with another person who has the virus. COVID-19 illnesses have ranged from very avxc-nd-gngezm, including illness resulting in . While information so far suggests that most COVID-19 illness is mild, serious illness can happen and may cause some of your other medical conditions to [...] use of LAGEVRIO for the treatment of mild-tomoderate COVID-19 in adults under an EUA. For more information on EUA, see the ?What is an Emergency Use Authorization (EUA)?? section at the end of this Fact [...] serious illnesses Take any medicines including prescription, kycc-cyq-imgtmms medicines, vitamins, and herbal products. How do [...] orogastric (OG) tube, follow the instructions below: ?How to take or give a dose of LAGEVRIO through a nasogastric (NG) or orogastric (OG) feeding tube.? You must have an NG or OG that is size 12 Zambian (FR) or larger. If you miss a dose of LAGEVRIO: If it has been less than 10 hours since the missed dose, take it as soon as you remember. If it has been more than 10 hours since the missed dose, skip the missed dose and take your dose at the next scheduled time. Do not double the [...] tell you what size catheter tip syringe you will need to take or give a dose of LAGEVRIO. Place the needed supplies on a clean work surface. Follow your healthcare provider?s instructions on how to flush the NG or OG feeding tube. Flush the NG or OG feeding tube with 5 mL [...] contents and water well for 3 minutes. The capsule contents may not dissolve completely. Remove the [...] any capsule contents left in the container or catheter tip syringe. Use the same catheter tip syringe to flush the NG or OG feeding tube 2 times with 5 mL of water (10mL total). Rinse the container, lid and catheter tip syringe well with clean water after use. Place on a clean paper towel until next use. What are the important possible side effects of LAGEVRIO? See, ?What is the most important information I should know about LAGEVRIO?? Allergic Reactions. Allergic reactions can happen in [...] to treat people with COVID-19. Go to https://www.fda.gov/cjvlfshrl-eudoypiazsdh-usg-response/mcm-legalregulatory -tvb-mjlmyy-rnxhvfmfd/cqqynfdus-wtd-tdsbbnlmxfbyb for more information. It is your choice [...] go away. Report side effects to FDA MedAfrimarkettch at www.fda.gov/medwatch or call 1-154-GJS-6754 ([phone]). How should I store LAGEVRIO? Store LAGEVRIO capsules at room temperature between 68?F to 77?F (20?C to 25?C). Keep LAGEVRIO and all medicines out of the reach of children. How can I learn more about COVID-19? Ask your healthcare provider. Visit www.cdc.gov/COVID19 Contact your local or state public health department. Call Vahna Sharp AND [employer] at (toll free in the [place] Visit www.[employer] What Is an Emergency Use Authorization (EUA)? The [place] FDA has made LAGEVRIO available under an emergency access mechanism called an Emergency Use Authorization (EUA) The EUA is supported by a Book Sewing Machine Operator of Health and Human Service ([facility]) declaration that circumstances exist to justify emergency use of drugs and biological products during the COVID-19 pandemic. LAGEVRIO for the treatment of adults with a current diagnosis of fohi-go-czrwoiht COVID-19 who are at high risk for [...] may no longer be used under the EUA)Yari Martin. for: Vahna Sharp AND [employer] [address] For patent information: www.Loginza.iDreamBooks/research/patent Copyright ? [employer] [place], [place], [place] and its affiliates. All rights reserved. [id number] Revised: August 2022 Prescriptions ordered this encounter Disp Refills Start End MOLNUPIRAVIR 200 MG CAPSULE (EUA) 40 c* 0 08/29/2024 09/03/2024 Route: ORAL Sig: Take 4 capsules by mouth two times a day for 5 days. Encounter Status:Closed by ANU THOMASON on 08/29/24 RUSTAM Observed: 08/29/2024 12:00 AM Status: COMPLETED Source: [facility] Telephone (INTMWS) WINSTON OHARA ([id number]) 1950 F NFR Date Time Provider Department 08/29/24 LILIAM CARUSO INTMWS During your visit today, we recorded the following information about you: Juliano Jenkins RN 08/29/2024 11:55 AM Signed Pt reports she [...] wear masks and will wear them. Chica Meyer, RN 08/29/2024 6:45 PM Signed Pt calling in [...] will come in to be seen in [facility] this evening. 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 ID: [id number] Author: LILIAM CARUSO MD Service: ? Author Type: Physician Type: Progress Notes Filed: 06/14/2024 16:09 Note Text: This note was created using NoteWriter. Subjective Winston Ohara is a 74 year [...] mention feeling her heart beating and a "jittery" sensation in the evenings, which she is unsure if it is related to her blood pressure. She also reports an episode of A-fib about 3 weeks ago that woke her up at 0430. She describes her heart as "beating weird" but denies other symptoms. She took her [...] 64 Resp 12 Ht 162.6 cm (5' 4") Wt 69 kg (152 lb 1.9 oz) LMP 08/31/2009 SpO2 100% BMI 26.11 kg/m? Last 5 Encounter Wt Readings: Date: Wt: 06/14/2024 69 kg (152 lb 1.9 oz) 12/20/2023 69.9 kg (154 lb) 06/05/2023 68 kg (150 lb) 12/23/2022 67.6 kg (149 lb) 09/13/2022 67.1 kg (148 lb) No waist measurement recorded Estimated body mass index is 26.11 kg/m? as calculated from the following: Height as of this encounter: 162.6 cm (5' 4"). Weight as of this encounter: 69 kg [...] lb 1.9 oz) Height: 162.6 cm (5' 4") Physical Exam Vitals reviewed. Constitutional: Appearance: Normal [...] Abs Lymph 1.00 - 4.00 k/uL 1.00 Villalba% % 7.8 Abs Villalba <0.87 k/uL 0.40 Eosin% % 3.3 Abs [...] 15 mmol/L 13 10 12 eGFR >=60 mL/min/1.73m? 78 69 83 Total Cholesterol, Nonfasting <200 [...] medical record. Outside specialists seen: Dr. Thapa ([facility]); Dr. Pond ([facility]) Medical/Family history review Reviewed and updated problem [...] Functional Observation Was the patient's Timed Up AND Go test unsteady or >= 12 seconds? No Advance Care Planning Surrogate decision maker and/or advance care plan documented Measurements BP 130/70 (BP Site: Left Arm, BP Position: Sitting, BP Cuff Size: Large Adult) Pulse 64 Resp 12 Ht 162.6 cm (5' 4") Wt 69 kg (152 lb 1.9 oz) LMP 08/31/2009 SpO2 100% BMI 26.11 kg/m? Vision Screening: Follows with optometry/ophthalmology Assessment/Plan Medicare annual wellness visit, subsequent (Z) - Counseled on healthy diet and regular exercise - Fall avoidance information provided - Personalized prevention plan provided # Medicare annual wellness visit, subsequent (Z) - Completed comprehensive Medicare annual wellness visit. - Reviewed and updated health maintenance records, including immunizations and screenings. - Discussed exercise and dietary habits; patient engages in moderate exercise, including rowing and stair climbing. - Reviewed advanced directives; confirmed on [...] patient receive vaccination at pharmacy, covered by Medicare Part D. - Discussed benefits of flu vaccination; patient declined, stating no history of flu. # Screening for depression (Z13.31) - Depression screening completed; no new concerns identified. - Continue current management with sertraline. # Encounter for screening mammogram for breast cancer (Z12.31) - Ordered 3D mammogram to be completed in August. Liliam Caruso MD CNOV Observed: 06/14/2024 2:20 PM Status: COMPLETED Source: [facility] Office Visit (INTMWS) WINSTON OHARA ([id number]) 1950 F NFR Date Time Provider Department 06/14/24 2:20 PM LILIAM CARUSO INTMWS During your visit today, we recorded the following information about you: Pulse Respiration Blood pressure Weight 64/minute 12/minute 134/68 69 kg Height 1.626 m Liliam Caruso MD 06/14/2024 4:09 PM Signed This note was created using SQLstreamriter. Subjective Winston Ohara is a 74 year [...] mention feeling her heart beating and a "jittery" sensation in the evenings, which she is unsure if it is related to her blood pressure. She also reports an episode of A-fib about 3 weeks ago that woke her up at 0430. She describes her heart as "beating weird" but denies other symptoms. She took her [...] 64 Resp 12 Ht 162.6 cm (5' 4") Wt 69 kg (152 lb 1.9 oz) LMP 08/31/2009 SpO2 100% BMI 26.11 kg/m? Last 5 Encounter Wt Readings: Date: Wt: 06/14/2024 69 kg (152 lb 1.9 oz) 12/20/2023 69.9 kg (154 lb) 06/05/2023 68 kg (150 lb) 12/23/2022 67.6 kg (149 lb) 09/13/2022 67.1 kg (148 lb) No waist measurement recorded Estimated body mass index is 26.11 kg/m? as calculated from the following: Height as of this encounter: 162.6 cm (5' 4"). Weight as of this encounter: 69 kg [...] lb 1.9 oz) Height: 162.6 cm (5' 4") Physical Exam Vitals reviewed. Constitutional: Appearance: Normal [...] Abs Lymph 1.00 - 4.00 k/uL 1.00 Villalba% % 7.8 Abs Villalba <0.87 k/uL 0.40 Eosin% % 3.3 Abs [...] 15 mmol/L 13 10 12 eGFR >=60 mL/min/1.73m? 78 69 83 Total Cholesterol, Nonfasting <200 [...] medical record. Outside specialists seen: Dr. Thapa ([facility]); Dr. Pond ([facility]) Medical/Family history review Reviewed and updated problem [...] Functional Observation Was the patient's Timed Up AND Go test unsteady or >= 12 seconds? No Advance Care Planning Surrogate decision maker and/or advance care plan documented Measurements BP 130/70 (BP Site: Left Arm, BP Position: Sitting, BP Cuff Size: Large Adult) Pulse 64 Resp 12 Ht 162.6 cm (5' 4") Wt 69 kg (152 lb 1.9 oz) LMP 08/31/2009 SpO2 100% BMI 26.11 kg/m? Vision Screening: Follows with optometry/ophthalmology Assessment/Plan Medicare annual wellness visit, subsequent () - Counseled on healthy diet and regular exercise - Fall avoidance information provided - Personalized prevention plan provided # Medicare annual wellness visit, subsequent () - Completed comprehensive Medicare annual wellness visit. - Reviewed and updated health maintenance records, including immunizations and screenings. - Discussed exercise and dietary habits; patient engages in moderate exercise, including rowing and stair climbing. - Reviewed advanced directives; confirmed on [...] patient receive vaccination at pharmacy, covered by Medicare Part D. - Discussed benefits of flu vaccination; patient declined, stating no history of flu. # Screening for depression (Z13.31) - Depression screening completed; no new concerns identified. - Continue current management with sertraline. # Encounter for screening mammogram for breast cancer (Z12.31) - Ordered 3D mammogram to be completed in August. MD Shady Duarte Liza D, MD 06/14/2024 3:55 PM Addendum - Continue taking Losartan 100 mg daily as prescribed. - Take Sotalol as prescribed; monitor for any episodes of atrial fibrillation (AFib) and report them to your mutual fund manager. - Use Lasix as needed for [...] and exhale for a count of 8 to help manage blood pressure and anxiety. - Monitor your blood pressure regularly and record the readings. - Follow up with your mutual fund manager in August. - Get a tetanus [...] review all the medicines you take, even uknj-aec-ikpcemu medicines. As you get older, the way medicines work in your body can change. Some medicines, or combinations of medicines, can make you sleepy or dizzy and can cause you to fall. 3. Have your [...] apply if you have certain medical conditions. Allergies As of Date: 06/14/2024 Noted Allergy Reaction FLAGYL (METRONIDAZOLE) 10/28/2019 8 - GI Upset FLECAINIDE 12/15/2020 14 - Other: See Comments Comments: Caused irregular EKG SOB Date Reviewed: 06/14/2024 Reviewed by: Soila Hill LPN - Fully Assessed Reason for Visit: Medicare Wellness Exam [4060] Primary Visit Diagnosis:Medicare annual wellness visit, subsequent [Z00.00] Other Visit Diagnoses:Essential hypertension [I10] Vitamin D deficiency [E55.9] Generalized anxiety disorder [F41.1] Paroxysmal atrial fibrillation (HCC) [I48.0] Psychophysiological insomnia [F51.04] Comment:Stable on Ambien; effective and needs to stay on to keep sleep regular to prevent exacerbation of anxiety from sleep deprivation Encounter for immunization [Z23] Screening for depression [Z13.31] Encounter for screening mammogram for breast cancer [Z12.31] Order(s):[START ON 06/19/2024] zolpidem (AMBIEN) 5 mg tabletTake 1 tablet by mouth at bedtime as needed for sedation for up to 180 days. Patient should start on June 19, 2024.Disp: 90 tabletRfl: 1 cholecalciferol, vitamin D3, 62.5 mcg (2,500 unit) chewTake 2 capsules by mouth daily after dinner. 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 - Take Sotalol as prescribed; monitor for any episodes of atrial fibrillation (AFib) and report them to your mutual fund manager. - Use Lasix as needed for [...] and exhale for a count of 8 to help manage blood pressure and anxiety. - Monitor your blood pressure regularly and record the readings. - Follow up with your mutual fund manager in August. - Get a tetanus [...] review all the medicines you take, even kkmc-cif-vuhnfpz medicines. As you get older, the way medicines work in your body can change. Some medicines, or combinations of medicines, can make you sleepy or dizzy and can cause you to fall. 3. Have your [...] apply if you have certain medical conditions. Prescriptions ordered this encounter Disp Refills Start End ZOLPIDEM 5 MG TABLET 90 t* 1 06/19/2024 12/16/2024 Cmt: Fill for 90 day supply if insurance will cover; switch back to 30 day supply if not Route: ORAL Sig: Take 1 tablet by mouth at bedtime as needed for sedation for up to 180 days. Patient should start on June 19, 2024. CHOLECALCIFEROL (VITAMIN D3) 62.5 MC* 06/14/2024 Class: OTC Route: ORAL Sig: Take 2 capsules by mouth daily after dinner. (actually chewable tablets) Medications Discontinued During This Encounter Prescriptions - zolpidem (AMBIEN) 5 mg tablet (Discontinued) Take 1 tablet by mouth at bedtime as needed for sedation for up to 180 days. Patient should start on June 19, 2024. - biotin 1,000 mcg chew (Discontinued) Take 1 tablet by mouth once daily. - Cholecalciferol, Vitamin D3, 25 mcg (1,000 unit) cap (Discontinued) Take 2 capsules by mouth once daily. Level of Service: PPPS, SUBSEQ VISIT [G0439] Additional E/M codes: OFFICE/OUTPATIENT ESTABLISHED LOW MDM 2* Follow-up and Disposition History for Encounter Date Provider Department Center 06/14/2024 [id number] CARUSO INTMWS [facility] Encounter Status:Closed by LILIAM CARUSO on 06/14/24 25(OH)D3 SERPL-MCNC Collected: 06/10/20 1:00 PM Status: F Source: [facility] Order Comment: Specimen Type : BLOOD SPECIMEN Ordering Facility: [facility] Address: [address] [place] [address] TYPE CODE TESTS RESULT OUT OF RANGE REFERENCE UNITS LAB 1988-(INC) 25(OH)D3 SerPl-mCnc 27.4 Low 31.0-80.0 ng/mL Result Comment: Classificati on of 25 OH Vitamin D status: Deficiency/Insufficiency: < or = 30 ng/ml. Sufficiency/Optimal Levels: 31-80 ng/mL Toxicity: > 100 ng/mL. Test performed by chemiluminescent immunoassay. Performed By: #### 1988-08 ## ## [facility] CLIA [id number] [address] [place] [address] [place] COMP METAB 2000 PNL SERPL Collected: 1:00 PM Status: F Source: [facility] Order Comment: Specimen Type : BLOOD SPECIMEN Ordering Facility: [facility] Address: [address] [place] [address] TYPE CODE TESTS RESULT OUT OF RANGE REFERENCE UNITS LAB 2885-2(LOINC) Prot SerPl-mCnc 6.9 6.3-8.0 g/dL LAB 1751-7(LOINC) Albumin SerPl-mCnc 4.3 3.9-4.9 g/dL LAB 51236-4(LOINC) Calcium SerPl-mCnc 9.8 8.5-10.2 mg/dL LAB 1975-2(LOINC) Bilirub SerPl-mCnc 0.7 0.2-1.3 mg/dL LAB 6768-6(LOINC) ALP SerPl-cCnc 131 High 34-123 U/L LAB 1920-8(LOINC) AST SerPl-cCnc 29 13-35 U/L LAB 1742-6(LOINC) ALT SerPl-cCnc 18 7-38 U/L LAB 2345-7(LOINC) Glucose SerPl-mCnc 89 74-99 mg/dL Result Comment: The [place] Diabetes Association (ADA) provides guidance for cutoff [...] Standards of Medical Care in Diabetes 2016, [place] Diabetes Association. Diabetes Care. 2016.39(Suppl 1). LAB 3094-0(LOINC) BUN SerPl-mCnc 17 7-21 mg/ dL LAB 2160-0(LOINC) Creat SerPl-mCnc 0.76 0.58-0.96 mg/dL LAB 2951-2(LOINC) Sodium SerPl-sCnc 140 136-144 mmol/L LAB 2823-3(LOINC) Potassium SerPl-sCnc 4.4 3.7-5.1 mmol/L LAB 2075-0(LOINC) Chloride SerPl-sCnc 104 98-107 mmol/L LAB 2028-9(LOINC) CO2 SerPl-sCnc 24 22-30 mmo l/L LAB 16975-8(LOINC) Anion Gap SerPl-sCnc 12 8-15 mmol/L LAB 73281-8(LOINC) Creatinine + eGFR Pnl SerPlBld 83 >=60 mL/min/1 .73m??? Result Comment: Estimated Gl omerular Filtration Rate (eGFR) is calculated using the 202 CKD-EPI creatinine equation. This equation utilizes serum creatinine, sex, and age as parameters. The creatinine assay has traceable calibration to isotope dilution-mass spectrometry. Refer to KDIGO guidelines for clinical interpretation. In patients with unstable renal function, e.g. those with acute kidney injury, the eGFR may not accurately reflect actual GFR. Performed By: #### LIPNF, 24 323-8 #### [facility] [facility] CLIA [id number] [address] [place], [place] [address] [address] [place] LIPID PANEL, NONFASTING Collected: 06/10/2024 1:00 PM Status: F Source: [facility] Order Comment: Specimen Type : BLOOD SPECIMEN Ordering Facility: [facility] Address: [address] [place] [address] TYPE CODE TESTS RESULT OUT OF RANGE REFERENCE UNITS LAB CHOLNF TOTAL CHOLESTEROL NF 221 High <200 mg/dL Result Comment: <200 mg/dL, Desirable 200-239 mg/dL, Borderline high >239 mg/dL, High LAB TRIGNF TRIGLYCERIDES, NF 122 <150 mg/dL Result Comment: <150 mg/dL, Normal 150-199 mg/dL, Borderline high 200-499 mg/dL, High >499 mg/dL, Very high LAB HDLNF HDL CHOLESTEROL, NF 60 >39 mg/dL Result Comment: 40-59 mg/dL, Acceptable >59 mg/dL, High: Negative risk factor for coronary heart disease <40 mg/dL, Low: Positive risk factor for coronary heart disease LAB LDLNF LDL CHOLESTEROL, NF 137 High <100 mg/dL Result Comment: <100 mg/dL, Optimal 100-129 mg/dL, Near optimal/above optimal 130-159 mg/dL, Borderline high 160-189 mg/dL, High >189 mg/dL, Very high Secondary prevention optimal LDL Cholesterol levels are recommended to be < 70 mg/dL LAB NOHDLN NON HDL CHOL, NF 161 High <130 mg/dL Result Comment: <130 mg/dL, Optimal 130-159 mg/dL, Near optimal/above optimal 160-189 mg/dL, Borderline high 190-219 mg/dL, High >219 mg/dL, Very high Secondary prevention optimal non HDL Cholesterol levels are recommended to be <100 mg/dL LAB VLDLNF VLDL CHOLESTEROL, NF 24 <30 mg/dL LAB TCHDLN T CHOL/HDL RATIO NF 3.68 <5.10 mg/dL LAB LDLHDN LDL/HDL RATIO, NF 2.28 <2.54 mg/dL Result Comment: Reference: 1. National Cholesterol Education Program ATP III Guideline At-A-Glance Quick Desk Reference: National Heart, Lung, and Blood [place]. National Institutes of Health. 2001: NIH Publication No. 01-3305. 2. An International Atherosclerosis Society position paper: global recommendations for the management of dyslipidemia: executive summary, Atherosclerosis. 2014: 232(2):410-413. Performed By: #### LIPNF, 24 323-8 #### [facility] CLIA [id number] [address] [place] [address] [place] CBC PNL BLD AUTO Collected: 4 1:00 PM Status: F Source: [facility] Order Comment: Specimen Type : BLOOD SPECIMEN Ordering Facility: [facility] Address: [address] [place] [address] TYPE CODE TESTS RESULT OUT OF RANGE REFERENCE UNITS LAB 6690-2(LOINC) WBC # Bld Auto 5.73 3.70-11.00 k/uL LAB 789-8(LOINC) RBC # Bld Auto 4.46 3.90-5.20 m/uL LAB 718-7(LOINC) Hgb Bld-mCnc 13.5 11.5-15.5 g/dL LAB 4544-3(LOINC) Hct VFr Bld Auto 42.8 36.0-46.0 % LAB 787-2(LOINC) MCV RBC Auto 96.0 80.0-100.0 fL LAB 785-6(LOINC) MCH RBC Qn Auto 30.3 26.0-34.0 pg LAB 786-4(LOINC) MCHC RBC Auto-mCnc 31.5 30.5-36.0 g/dL LAB 93939-2(LOINC) RDW RBC-Rto 13.2 11.5-15.0 % LAB 777-3(LOINC) Platelet # Bld Auto 203 150-400 k/uL LAB 10184-6(LOINC) PMV Bld Auto 10.2 9.0-12.7 fL LAB 771-6(LOINC) nRBC # Bld Auto <0.01 <0.01 k/uL Performed By: #### 79896-6 # ### [facility] CLIA [id number] [address] [place] [address] [place] ALLERGIES DATE TYPE / CODE NAME / CODE REACTION SEVERITY SOURCE 02/06/2021 DRUG INGREDI/595511809 (SNOMED CT) CORTISONE OTHER: SEE C [facility] 12/15/2020 DRUG INGREDI/[id number] (SNOMED CT) FLECAINIDE OTHER: SEE C [facility] 10/28/2019 DRUG INGREDI/809114933 (SNOMED CT) METRONIDAZOLE GI UPSET [facility] ENCOUNTERS ADMIT/DISCHARGE ACCOUNT NUMBER ADMITTING ENCOUNTER CLASS LOC ATION SOURCE 03/24/2025/ [id number] [facility] 02/17/2025/ 5 [id number] Amb[address] [facility] Hospital[facility]:WORG [facility] 02/11/2025/ 5 [id number] [address] [facility] HospitalBuild ing:WOUCA [facility] 12/26/2024/ 5 [id number] [address] [facility] HospitalBuild ing:WORG [facility] 12/23/2024/ 5 [id number] [address] [facility] HospitalBuild ing:WOLLivan [facility] 09/23/2024/ 5 [id number] [address] [facility] HospitalBuild ing:WODM [facility] 08/29/2024/ 5 [id number] [address] [facility] HospitalBuild ing:WOUC [facility] 06/14/2024/ 4 [id number] [address] [facility] HospitalBuild ing:WOIA [facility] 06/10/2024/ 4 [id number] [facility] HospitalBuild ing:LISA [facility] PAYERS ENCOUNTER GUARANTOR PAYER SUBSCRIBER SOURCE 03/24/2025 Primary Insuranc e:MEDICARE A AND BPolicy Number: [id number] Date:7026-41-93Yxrd Name:Sara JAMES: [id number] [place] [address] [facility] 03/24/2025 Secondary Insura nce:ANTHEM MEDICARE SUPPLEMENTPolicy Number: [id number] Date:0673-12-01Nlwm Name:Britney WINSTON Sourav SAUCEDAB: [id number] [place] [address] [facility] 02/17/2025 Primary Insuranc e:MEDICARE A AND BPolicy Number: [id number] Date:8105-96-75Bexg Name:Sara WINSTON JAMES: [id number] [place] [address] [facility] 02/17/2025 Secondary Insura nce:[place] MEDICARE SUPPLEMENTPolicy Number: [id number] Date:1485-94-81Gbjl Name:Britney JAMES: [id number] [place] [address] [facility] 02/11/2025 Primary Insuranc e:MEDICARE A AND BPolicy Number: [id number] Date:4652-74-78Ldco Name:Sara WINSTON Sourav JAMES: [id number] [place] [address] [facility] 02/11/2025 Secondary Insura nce:[place] MEDICARE SUPPLEMENTPolicy Number: [id number] Date:0789-83-35Cszx Name:Britney JAMES: [id number] [place] [address] [facility] 12/26/2024 Primary Insuranc e:MEDICARE A AND BPolicy Number: [id number] Date:5118-82-20Hhdn Name:Sara JAMES: [id number] [place] [address] [facility] 12/26/2024 Secondary Insura nce:ANTHEM MEDICARE SUPPLEMENTPolicy Number: [id number] Date:8945-71-16Fzag Name:Britney Hernandez JACOB: [id number] [place] [address] [facility] 12/23/2024 Primary Insuranc e:MEDICARE A AND BPolicy Number: [id number] Date:6641-45-34Qshf Name:Sara Hernandez JACOB: [id number] [place] [address] [facility] 12/23/2024 Secondary Insura nce:[place] MEDICARE SUPPLEMENTPolicy Number: [id number] Date:1411-05-95Gosp Name:Britney Hernandez JACOB: [id number] [place] [address] [facility] 09/23/2024 Primary Insuranc e:MEDICARE A AND BPolicy Number: [id number] Date:4249-10-29Hjkr Name:Sara MONTERO Sourav JAMES: [id number] [place] [address] [facility] 09/23/2024 Secondary Insura nce:[place] MEDICARE SUPPLEMENTPolicy Number: [id number] Date:6727-56-16Sapp Name:Britney MONTERO Sourav JAMES: [id number] [place] [address] [facility] 08/29/2024 Primary Insuranc e:MEDICARE A AND BPolicy Number: [id number] Date:3491-81-08Tshk Name:Sara Hernandez JACOB: [id number] [place] [address] [facility] 08/29/2024 Secondary Insura nce:ANTHEM MEDICARE SUPPLEMENTPolicy Number: [id number] Date:0675-53-57Idtz Name:Britney WINSTON Sourav JAMES: [id number] [place] [address] [facility] 06/14/2024 Primary Insuranc e:MEDICARE A AND BPolicy Number: [id number] Date:6816-86-27Jolf Name:Sara Hernandez JACOB: [id number] [place] [address] [facility] 06/14/2024 Secondary Insura nce:ANTHEM MEDICARE SUPPLEMENTPolicy Number: [id number] Date:4660-71-00Ltch Name:Britney WINSTON JAMES: [id number] [place] [address] [facility] 06/10/2024 Primary Insuranc e:MEDICARE A AND BPolicy Number: [id number] Date:0407-74-73Zwxk Name:Sara WINSTON E JACOB: [id number] [place] [address] [facility] 06/10/2024 Secondary Insura nce:ANTHEM MEDICARE SUPPLEMENTPolicy Number: [id number] Date:1837-19-63Ycya Name:Britney JAMES: [id number] [place] [address] [facility]
--- NOTE | 2025-03-31 15:10 | STRESSREP ---
Stress Test Report Pharmacologic myocardial perfusion stress test. 74-year-old lady with a history of atrial fibrillation. Resting EKG demonstrates atrial fibrillation with a rate of 120 bpm. Resting blood pressure is 148/82 mmHg. 0.4 mg of regadenoson was infused per usual protocol followed by rapid intravenous saline flush injection. Continuous EKG monitoring was performed. The maximum heart rate was 133 bpm which was 89% of max impacted heart rate the maximum workload was 1 metabolic equivalent. At rest there were no ST or T wave changes noted to suggest ischemia and at peak infusion nonspecific ST changes were noted which did not meet the criteria for ischemia. No clinical angina is noted. The final blood pressure was 142/84mmHg. Myocardial perfusion protocol. 12 mCi of technetium 99m sestamibi was injected at rest. 0.4 mg of regadenoson was infused per usual protocol. At peak infusion 35 mCi of technetium 99m sestamibi was injected stress images were obtained stress and rest images were reconstructed and compared in the short axis vertical long and horizontal long axis. Gated images were also obtained. Perfusion SPECT analysis: Review of the stress images demonstrate normal uptake of tracer noted in all areas of the myocardium except for the basal to mid anterior wall. The resting images similar demonstrated normal uptake of tracer noted in all areas of the myocardium. Anterior reversibility is noted suggesting basal to mid anterior ischemia present. Gated SPECT analysis: The gated ejection fraction is 54%. Conclusion: Abnormal pharmacologic myocardial perfusion stress test. Preserved ejection fraction. Basal to mid anterior ischemia present.
== END | disposition home or self-care (01) ==
LOC: CVS 07:00
PROVIDERS: PCP Internal Medicine; Referring Provider Physician Assistant Medical; Visit Provider Physician Assistant Medical
DX: R94.31 Abnormal electrocardiogram [ECG] [EKG] (principal); I48.92 Unspecified atrial flutter; R00.1 Bradycardia, unspecified
CPT/HCPCS: 78452; 93017; A9500; A4216; J2785

== ENCOUNTER 2025-04-17 06:59 | Day surgery (SDC) | payer MEDICARE, BC, SELFPAY ==
[2025-04-08 15:27] LABS: Hematocrit 45.2 % (37-47); Hemoglobin 14.3 g/dL (12.0-15.0); Immature Granulocytes Count 0.040 X10^3/uL (0.0-0.0); Mean Corp Hgb Conc 31.6 g/dL (32-36); Mean Corpuscular Volume 95.0 fL (81-99); Mean Platelet Vol. 10.4 fl (6.2-12.0); NRBC Flagged by Analyzer 0 % (0-5); Platelet Count 215 K/mm3 (150-450); RBC Distribution Width CV 13.6 % (11.6-14.6); RBC Distribution Width SD 47.4 fl (35.1-43.9); Red Blood Count 4.76 M/mm3 (4.2-5.4); White Blood Count 7.0 K/mm3 (4.4-11.0)
[2025-04-08 15:41] LABS: Prothrombin Time (Protime)PT. 22.8 SECONDS (11.7-14.9)
[2025-04-08 15:42] LABS: Partial Thromboplast Time 36.2 Seconds (24.1-36.2)
[2025-04-08 16:04] LABS: Anion Gap 11 (5-15); BUN 17 mg/dL (4-19); BUN/Creat Ratio 18.5 RATIO (10-20); Calcium,Total 10.0 mg/dL (7.6-11.0); Carbon Dioxide 25.2 mmol/L (21.0-32.0); Chloride 105 mmol/L (98-108); Glucose 112 mg/dL (70-99); Potassium 4.6 mmol/L (3.3-5.1)
[2025-04-16 09:22] VITALS: BMI 26.1
--- OUTSIDE RECORDS SUMMARY | 2025-04-17 07:04 | XMS RPT_ITS | CCD ---
Author Organization [facility] Care Team Providers Care Nursing Home Assistant Administrator Name Role Phone Dr. Liliam Alaniz Primary Care Provider Dr. Liliam Alaniz Referring Provider Adrian LEMA, METAL CONTAINER MAKER-C Rea Attending Provider Liliam Alaniz MD Primary Care Provider Liliam Alaniz MD Primary Care Provider Liliam Alaniz MD Primary Care Provider Dr. Liliam Alaniz Primary Care Provider Dr. Liliam Alaniz Referring Provider Adrian LEMA, METAL CONTAINER MAKER-C Rea Attending Provider Dr. Liliam Alaniz Primary Care Provider Dr. Liliam Alaniz Referring Provider Dr. Sterling Thapa Attending Provider Liliam Alaniz MD Primary Care Provider Stanton POSSUM TRAPPER.LAWN MOWER OPERATOR, Katey Unavailable Jeremiah POSSUM TRAPPER.SOLE INKER Barbra Unavailable Jeremiah POSSUM TRAPPER.SOLE INKER Barbra Suzanne Unavailable Dr. Liliam Alaniz MD Primary Care Provider Dr. Liliam Alaniz MD Referring Provider Lilly LEMA-Jozef Romano Attending Provider Dr. Audie Nieves DO Emergency Provider Jeremiah POSSUM TRAPPER.SOLE INKER, Barbra Unavailable Stanton POSSUM TRAPPER.LAWN MOWER OPERATOR, Katey Unavailable Stanton POSSUM TRAPPER.LAWN MOWER OPERATOR, Katey Unavailable Dr. Audie Nieves DO Attending Provider Alanis KNIGHT, Dr. Katz Attending Provider Olya FLETCHER, Teofilo Henao Attending Provider Alanis KNIGHT, Dr. Katz Referring Provider Alanis KNIGHT, Dr. Katz Other Provider Dr. Gage Zuñiga DO Attending Provider Shady KNIGHT, Dr. Liliam Sevilla Primary Care Provider Shady KNIGHT, Dr. Liliam Sevilla Referring Provider [facility] METAL CONTAINER MAKER-Jozef Romano Attending Provider Shady KNIGHT, Dr. Liliam Sevilla Primary Care Provider [phone] Shady KNIGHT, Dr. Liliam Sevilla Referring Provider Alanis KNIGHT, Dr. Katz Attending Provider Dr. David Hartman MD Emergency Provider Dionisio JOHNSON, Dr. Vazquez Admit Provider Dr. George Nichole DO Attending Provider Dr. George Nichole DO Other Provider Dr. George Nichole DO Other Provider Dr. Enrico Rendon MD Other Provider Iman KNIGHT, Dr. Roxana Aleman Attending Provider Dr. George Nichole DO Attending Provider Julieta KNIGHT, Dr. Weston Attending Provider Iman KNIGHT, Dr. Roxana Aleman Other Provider LILIAM ALANIZ Referring Unavailable TALAMPAS, LILIAM D Primary Care Unavailable TALAMPAS, LILIAM D Primary Care Unavailable TALAMPAS, LILIAM D Attending Unavailable TALAMPAS, LILIAM D Primary Care Unavailable TALAMPAS, LILIAM D Primary Care Unavailable TALAMPAS, LILIAM D Referring Unavailable TALAMPAS, LILIAM D Attending Unavailable TALAMPAS, LILIAM D Primary Care Unavailable JOSECHALOHATTIE Attending Unavailable TALAMPAS, LILIAM D Primary Care Unavailable TALAMPAS, LILIAM D Primary Care Unavailable TALAMPAS, LILIAM D Referring Unavailable TALAMPAS, LILIAM D Attending Unavailable TALAMPAS, LILIAM D Primary Care Unavailable TALAMPAS, LILIAM D Referring Unavailable Talampas , Dr. Liliam Sevilla Primary Care Physician Teofilo Mcdaniels Attending Physician Alanis KNIGHT, Dr. Katz Attending Physician Dr. Sterling Thapa MD Nurse Practitioner Dr. Gage Zuñiga DO Attending Physician Lilly LEMA-Jozef Romano Attending Physician Dr. David Hartman MD Emergency Department Physici an Dr. George Nichole DO Admitting Physician Dr. George Nichole DO Nurse Practitioner Dr. Enrico Rendon MD Nurse Practitioner Dr. Roxana Valerio MD Attending Physician Dr. George Nichole DO Attending Physician Dr. Enrico Rendon MD Attending Physician Iman KNIGHT, Dr. Roxana Aleman Nurse Practitioner Tefoilo Mcdaniels Referring Provider Teofilo Mcdaniels Nurse Practitioner Talampas, Liliam D Referring Unavailable Talampas, Liliam D Primary Care Unavailable Jozef Carr Attending Unavailable Talampas, Liliam D Primary Care Unavailable Teofilo Mcdaniels Attending Unavail able Talampas, Liliam D Referring Unavailable Teofilo Mcdaniels Attending Unavail able Talampas, Liliam D Primary Care Unavailable Talampas, Liliam D Referring Unavailable Teofilo Mcdaniels Attending Unavail able Talampas, Liliam D Primary Care Unavailable Talampas, Liliam D Referring Unavailable Belal, Farouk Consulting Unavailable Koram, Roxana Love Attending Unavailable Jopperi, George Admitting Unavailable Talampas, Liliam D Primary Care Unavailable Jopperi, George Consulting Unavailable Alanis, Sterling Referring Unavailable Alanis, Sterling Attending Unavailable Talampas, Liliam D Primary Care Unavailable Talampas, Liliam D Primary Care Unavailable Alanis, Sterling Consulting Unavailable Alanis, [place] Referring Unavailable Alanis, Sterling Attending Unavailable Belal, Farouk Consulting Unavailable Koram, Roxana Love Attending Unavailable Jopperi, George Admitting Unavailable Talampas, Liliam D Primary Care Unavailable Jopperi, George Consulting Unavailable Koram, Roxana Love Consulting Unavailable Alanis, [place] Attending Unavailable Talampas, Liliam D Primary Care Unavailable Talampas, Liliam D Referring Unavailable Teofilo Mcdaniels Attending Unavail able Talampas, Liliam D Referring Unavailable Talampas, Liliam D Primary Care Unavailable Talampas, Liliam D Primary Care Unavailable Alanis, [place] Attending Unavailable Talampas, Liliam D Referring Unavailable Alanis, Sterling Attending Unavailable Talampas, Liliam D Primary Care Unavailable Talampas, Liliam D Referring Unavailable Belal, Farouk Attending Unavailable Jopperi, George Attending Unavailable Alanis, [place] Attending Unavailable Belal, Farouk Attending Unavailable Talampas, Liliam D Primary Care Unavailable Teofilo Mcdaniels Referring Unavail able Teofilo Mcdaniels Attending Unavail able Talampas, Liliam D Primary Care Unavailable Teofilo Mcdaniels Attending Unavail able Teofilo Mcdaniels Referring Unavail able Talampas, Liliam D Primary Care Unavailable Alanis, [place] Referring Unavailable Alanis, Sterling Attending Unavailable Talampas, Liliam D Primary Care Unavailable Audie Nieves Attending Unavailable Talampas, Liliam D Primary Care Unavailable Gage Zuñiga Attending Unavailable Alanis, Sterling Referring Unavailable Jozef Carr Attending Unavailable Talampas, Liliam D Primary Care Unavailable Talampas, Liliam D Referring Unavailable Teofilo Mcdaniels Attending Unavail able Talampas, Liliam D Primary Care Unavailable Talampas, Liliam D Referring Unavailable Teofilo Mcdaniels Referring Unavail able Teofilo Mcdaniels Consulting Unavail able Alanis, Sterling Attending Unavailable Talampas, Liliam D Primary Care Unavailable Talampas, Liliam D Primary Care Unavailable Alanis, Sterling Consulting Unavailable Alanis, Sterling Referring Unavailable Gage Zuñiga Attending Unavailable MIKAELA MCDONALD Attending Unavailable TEOFILO DOBSON Referring Cody labezequiel TALAMPAS, LILIAM D Primary Care Unavailable Allergies Allergy Classification Reported Allergen(s) Allergy Type Date of Onset Reaction(s) Facility (19 sources) Aspirin Drug Allergy 1 ONLY HAS ONE KIDNEY, TOLD TO AVOID [facility] Comment on above: PT ONLY HAS 1 KIDNEY (20 sources) Cortisone; Translations: [CORTISONE] Drug Allergy 1 CHEST HOT & WEIRD [facility] (20 sources) Flecainide; Translations: [FLECAINIDE] Drug Allergy 1 Other: See Comments [facility] (20 sources) NSAIDS (Non-Steroidal Anti-Inflamma; Translations: [NSAIDS (Non-Steroidal Anti-Inflamma] Propensity to adverse reactions 1 ONLY HAS ONE KIDNEY, TOLD TO AVOID [facility] Comment on above: PT ONLY HAS 1 KIDNEY (20 sources) metroNIDAZOLE; Translations: [METRONIDAZOLE] Drug Allergy 0 GI Upset [facility] Work Phone: (1 source) Aspirin Drug Allergy 5 [facility] Repository (1 source) Cortisone Drug Allergy 5 [facility] Repository (1 source) Flecainide Drug Allergy 5 [facility] Repository Medications Current Medications Medication Drug Class(es) Dates Sig (Normalized) Sig (Original) acetaminophen 500 mg oral tablet (20 sources) Start: 02-04-2021 End: 09-26-2023 Acetaminophen 500 mg tablet Active 1000 mg PO EVERY 8 HOURS as needed for pain September 26, 2023 1:46pm Do not take more than 3000 mg Tylenol in a 24-hour period. Complies with drug therapy Start: 02-04-2021 End: 09-26-2023 take 3000 mg [...] on above: EVERY 6 HOURS NEE DED amiodarone hydrochloride 200 mg oral tablet (11 sources) Antiarrhythmic Start: 02-11-20 End: 02-27-20 take 1 tablet by mouth once daily Amiodarone 200 mg tablet Active 200 mg PO DAILY 90 3 February 26, 2025 1:46pm Complies with drug therapy amoxicillin 875 mg / clavulanate 125 mg oral tablet (2 sources) Penicillin-class Antibacterial Start: 02-12-20 End: 02-19-20 take 1 tablet by mouth twice daily amoxicillin-clavulan ate potassium (AUGMENTIN) 875-125 mg per tablet Indications: Cellulitis of other specified site Take 1 tablet by mouth two times a day for 7 days. 14 tablet 02/11/2025 02/18/2025 Active atenolol 50 mg oral tablet (20 sources) beta-Adrenergic Magnolia Start: 12-16-19 End: 02-08-20 take 1 tablet by mouth once daily [...] tablet Discontinued 100 mg PO DAILY October 06, 2020 1:46pm October [...] not exceed 16 tabs per 24 hrs Complies with drug therapy Start: 10-08-2020 take 2 tablets by mo uth every twenty-four hours Bismuth Subsalicylate (Pepto-Bismol) 262 [...] PO DAILY January 20, 2021 12:00am Supplement Complies with drug therapy Start: 01-12-2021 End: 06-14-2024 take 2 capsules by mouth once daily Cholecalciferol, Vitamin D3, 25 mcg (1,000 unit) cap Take 2 capsules by mouth once daily. 01/12/2021 06/14/2024 Discontinued Comment on above: Take 2 capsules by m outh once daily. cholecalciferol, vitamin D3, 62.5 mcg (2,500 unit) chew (10 sources) Start: 06-14-20 take 2 capsules by mouth once daily after dinner cholecalciferol, vitamin D3, 62.5 mcg (2,500 unit) chew Indications: Vitamin D deficiency Take 2 capsules by mouth daily after dinner. (actually chewable tablets) 06/14/2024 Active fluticasone propionate 0.05 mg/actuat metered dose nasal spray (20 sources) Corticosteroid Start: 04-13-20 take 2 spray(s) nasal route once daily fluticasone (FLONASE) 50 mcg/actuation nasal spray Use 2 Sprays in each nostril once daily. 04/13/2018 Active Start: 10-19-2017 Fluticasone Pr opionate 9.9 ML spray,suspension Active 15.8 mL NS DAILY as needed for ALLERGIES October 19, 2017 12:00am Complies with drug therapy Comment on above: Use 2 Sprays in each nostril once daily. lisinopril 5 mg oral tablet (20 sources) Angiotensin Converting Enzyme Inhibitor Start: 02-26-2025 take 1 tablet by mouth once daily Lisinopril 5 mg tablet Active 5 mg PO daily 30 February 26, 2025 12:00am Complies with drug therapy Start: 11-14-2022 End: 12-20-2023 take 1 tablet by mouth once daily Lisinopril 30 mg tablet Discontinued 30 mg PO DAILY September 13, 2023 10:43am September 26, 2023 [...] 1 tablet by kamila th every afternoon. metoprolol tartrate 50 mg oral tablet (20 sources) beta-Adrenergic Magnolia Start: 02-10-2025 End: 02-26-2025 take 1 tablet by mouth twice daily Metoprolol Tartrate 50 mg tablet Active 50 mg PO TWICE A DAY 180 February 26, 2025 1:46pm Complies with drug therapy Start: 01-31-2025 End: 02-17-2025 take 1 tablet by mouth once daily Metoprolol Succinate 50 mg tablet extended release 24 hr Discontinued 50 mg PO daily 90 January 31, 2025 2:42pm February 10, 2025 2:54pm afib Start: 01-31-2025 End: 01-31-2025 take 1 tablet by mouth once daily Metoprolol Succinate 25 mg tablet extended release 24 hr Discontinued 25 mg PO daily 90 3 January 31, 2025 12:00am January 31, 2025 [...] m outh twice daily for 5 days. zolpidem tartrate 5 mg oral tablet (20 sources) gamma-Aminobutyri c Acid-ergic Agonist Start: End: take 1 tablet by mouth at bedtime as needed zolpidem (AMBIEN) 5 mg tablet Indications: Psychophysiological insomnia Take 1 tablet by mouth at bedtime as needed for sedation for up to 180 days. Patient should start on January 11, 2025. 90 tablet 1 01/11/2025 07/10/2025 Active Start: 06-19-2024 End: 06-14-2024 take 1 tablet [...] for sedation for up to 60 days. Completed/Discontinued Medications Medication Drug Class(es) Dates Sig [...] to colonoscopy biotin 1 mg chewable tablet (18 sources) Start: 09-26-2023 End: 01-10-2025 take 1 [...] Kit docusate sodium 50 mg / sennosides, nursing home 8.6 mg oral tablet (19 sources) Start: 02-04-2021 End: 03-09-2021 Sennosides-Docusat e [...] tablet Discontinued 100 mg PO Q12H 60 September 30, 2020 12:00am October 23, 2020 [...] Prep Kit hydroCHLOROthiazide 12.5 mg oral tablet (19 sources) Thiazide Diuretic Start: 2020 End: 2020 take 1 tablet by mouth once daily Hydrochlorothiazide 12.5 mg tablet Discontinued 12.5 mg PO DAILY October 06, 2020 12:00am October 08, 2020 10:19am losartan potassium 50 mg oral tablet (20 sources) Angiotensin 2 Receptor Magnolia Start: 2024 End: 2024 take 1 tablet by mouth once daily Losartan 50 mg tablet Discontinued 50 mg PO DAILY 90 January 27, 2025 10:55am January 31, 2025 2:38pm Start: 09-26-2023 End: 02-17-2025 take 1 tablet by mouth once daily Losartan 100 mg tablet Discontinued 100 mg PO DAILY 90 3 October 04, 2024 1:49pm January 27, 2025 [...] infection oxyCODONE hydrochloride 5 mg oral tablet (19 sources) Opioid Agonist Start: 02-04-2021 End: 06-08-2021 [...] left artificial knee joint polyethylene glycol 3350 [id number] mg powder for oral solution (3 sources) [...] mg PO DAILY August 09, 2022 3:37pm anxiety Complies with drug therapy Start: 10-20-2017 End: 06-20-2019 take 0.5 tablet [...] 1 tablet by kamila th once daily. sotalol hydrochloride 80 mg oral tablet (20 sources) Antiarrhythmic Start: 01-28-20 End: 02-01-20 take 1 tablet by mouth twice daily [...] April 14, 2023 1:51pm Start: 03-15-2021 End: 02-17-2025 take 1 tablet by mouth twice daily Sotalol 80 mg tablet Discontinued 80 mg PO TWICE A DAY 180 July 15, 2024 11:14am January 27, 2025 [...] Take 80 mg by mouth twice daily. Problems Active Problems Problem Classification Problem Date [...] [Palpitations] Onset: 7 Resolved: 3 06-28-2021 Episodic Complication of device; implant or graft (2 sources) Infection of intravenous catheter; Translations: [Infection and inflammatory reaction due to other cardiac and vascular devices, implants and grafts, sequela] Onset: 5 02-17-2025 Episodic Disorders of lipid metabolism (3 sources) Dyslipidemia; Translations: [Hyperlipidemia, unspecified] Onset: 5 12-13-2023 Chronic Essential hypertension (20 sources) Essential hypertension; Translations: [Essential (primary) hypertension] Onset: 1 Chronic Miscellaneous mental health disorders (9 sources) Psychophysiologic insomnia; Translations: [Psychophysiologic insomnia] Onset: 5 Chronic Nonmalignant breast conditions (20 sources) Mammographic microcalcification of breast; Translations: [Mammographic microcalcification found on diagnostic imaging of breast] Episodic Nonspecific chest pain (18 sources) Chest discomfort; Translations: [Other chest pain] Onset: 5 01-31-2022 Episodic Nutritional deficiencies (20 sources) Vitamin D deficiency; Translations: [Vitamin D deficiency, unspecified] Onset: 1 01-17-2021 Chronic Osteoarthritis (20 sources) Primary gonarthrosis, bilateral; Translations: [Bilateral primary osteoarthritis of knee] Onset: 9 10-08-2018 Chronic Other aftercare (6 sources) Patient encounter status; Translations: [Other skilled nursing (current) drug therapy] Episodic Other aftercare (16 sources) Drug therapy finding; Translations: [[facility] (current) use of anticoagulants] 04-13-2023 Episodic Other aftercare (13 sources) Long-term current use of anticoagulant; Translations: [terminal makeup operator (current) use of anticoagulants] 09-16-2024 Episodic Other aftercare (3 sources) Other computer terminal operator (current) drug therapy; Translations: [Encounter for long-term current use of medication] Onset: 4 Episodic Other aftercare (2 sources) [facility] (current) use of anticoagulants; Translations: [terminal makeup operator (current) use of anticoagulants] Onset: 5 Episodic Other and ill-defined heart disease (9 sources) Depression of left ventricular systolic function; Translations: [Heart disease, unspecified] 02-26-2025 Chronic Other and ill-defined heart disease (2 sources) Heart disease, unspecified; Translations: [Heart disease, unspecified] Onset: 5 Chronic Other circulatory disease (13 sources) H/O: atrial fibrillation; Translations: [Personal history of other diseases of the circulatory system] 09-16-2024 Episodic Other connective tissue disease (2 sources) History of total knee arthroplasty; Translations: [Presence of left artificial knee joint] Chronic Other gastrointestinal disorders (20 sources) Diarrhea; Translations: [Diarrhea, unspecified] Onset: 6 Resolved: 3 01-31-2022 Episodic Other liver diseases (19 sources) Cardiac enzymes abnormal; Translations: [Abnormal levels of other serum enzymes] 02-12-2021 Episodic Other lower respiratory disease (19 sources) Dyspnea on exertion; Translations: [Dyspnea, unspecified] 01-29-2022 Episodic Other lower respiratory disease (20 sources) Dyspnea; Translations: [Dyspnea, unspecified] 02-04-2022 Episodic Other lower respiratory disease (2 sources) Shortness of breath; Translations: [Shortness of breath] Onset: 5 Episodic Other nervous system disorders (1 source) Other chronic pain; Translations: [Chronic pain of right knee] Onset: 5 Chronic Other non-traumatic joint disorders (1 source) Ankle edema; Translations: [Effusion, right ankle] 01-25-2024 Episodic Other non-traumatic joint disorders (2 sources) Pain in right knee; Translations: [Pain in joint, lower leg] Onset: 5 12-26-2024 Episodic Other non-traumatic joint disorders (1 source) Swollen ankle region; Translations: [Effusion, right ankle] 02-17-2025 Episodic Other non-traumatic joint disorders (1 source) Effusion, right ankle; Translations: [Swelling of both ankles] Onset: 5 Episodic Other non-traumatic joint disorders (1 source) Effusion, left ankle; Translations: [Swelling of both ankles] Onset: 5 Episodic Other screening for suspected conditions (not mental disorders or infectious disease) (20 sources) Raised TSH level; Translations: [Other specified abnormal findings of blood chemistry] Onset: 5 Episodic Residual codes; unclassified (20 sources) Absent kidney; Translations: [Acquired absence of kidney] 06-19-2019 Episodic Residual codes; unclassified (20 sources) Family history of breast cancer; Translations: [Family history of malignant neoplasm of breast] 04-04-2017 Episodic Residual codes; unclassified (20 sources) Flushing; Translations: [Flushing] Episodic Residual codes; unclassified (15 sources) Edema; Translations: [Edema, unspecified] 10-19-2023 Episodic Residual codes; unclassified (13 sources) History of drug therapy; Translations: [Other specified postprocedural states] 09-16-2024 Episodic Residual codes; unclassified (1 source) Other specified postprocedural states; Translations: [Other specified postprocedural states] Onset: 5 Episodic Residual codes; unclassified (1 source) Acquired absence of kidney; Translations: [Acquired absence of kidney] Onset: 5 Episodic Residual codes; unclassified (1 source) Other specified personal risk factors, not elsewhere classified; Translations: [At risk for stroke] Onset: 5 Episodic Skin and subcutaneous tissue infections (2 sources) Cellulitis; Translations: [Cellulitis of other sites] Onset: 5 02-11-2025 Episodic Thyroid disorders (20 sources) Cyst of thyroid; Translations: [Nontoxic single thyroid nodule] Onset: 5 09-24-2014 Chronic Unclassified (1 source) OPENED IN ERROR Unclassified (20 sources) I48.92 - Unspecified atrial flutter Unclassified (1 source) Other persistent atrial fibrillation; Translations: [Persistent atrial fibrillation (HCC)] Onset: 5 Varicose veins of lower extremity (2 sources) Venous varices; Translations: [Varicose veins of unspecified lower extremity with other complications] Episodic Viral infection (2 sources) Disease caused by 2019-nCoV; Translations: [COVID-19] Episodic Past or Other Problems Problem Classification Problem Date Documented Da te Episodic/Chronic Hemorrhoids (13 sources) External hemorrhoids; Translations: [Residual hemorrhoidal skin tags] Onset: 04-26-2010 Resolved: 08-08-2012 08-08-2012 Episodic Menopausal disorders (13 sources) Postmenopausal bleeding; Translations: [Postmenopausal bleeding] Onset: 09-30-2009 Resolved: 08-08-2012 08-08-2012 Chronic Mood disorders (13 sources) Depressive disorder; Translations: [Other specified depressive episodes] Resolved: 04-04-2017 04-04-2017 Chronic Other and unspecified benign neoplasm (20 sources) History of polyp of colon; Translations: [Personal history of colonic polyps] Onset: 02-10-2010 Episodic Other and unspecified benign neoplasm (13 sources) Benign neoplasm of colon; Translations: [Benign neoplasm of colon, unspecified] Onset: 05-01-2006 Resolved: 08-08-2012 08-08-2012 Episodic Other connective tissue disease (13 sources) Ganglion cyst; Translations: [Ganglion, unspecified site] Onset: 01-20-2010 Resolved: 08-08-2012 08-08-2012 Episodic Other gastrointestinal disorders (13 sources) Irritable bowel syndrome; Translations: [Irritable bowel syndrome without diarrhea] Resolved: 08-08-2012 08-08-2012 Chronic Other inflammatory condition of skin (13 sources) Rosacea; Translations: [Rosacea, unspecified] Onset: 07-16-2008 Resolved: 08-08-2012 08-08-2012 Chronic Other skin disorders (20 sources) Eruption; Translations: [Rash and other nonspecific skin eruption] Onset: 04-13-2018 04-13-2018 Episodic Other skin disorders (13 sources) Acne; Translations: [Other acne] Onset: 05-03-2005 Resolved: 08-08-2012 08-08-2012 Episodic Residual codes; unclassified (20 sources) Kidney donor; Translations: [Kidney donors] Onset: 01-01-2013 01-01-2013 Episodic Residual codes; unclassified (13 sources) Insomnia; Translations: [Insomnia, unspecified] Resolved: 08-08-2012 08-08-2012 Episodic Residual codes; unclassified (14 sources) History of cardioversion; Translations: [Personal history of other medical treatment] Onset: 11-11-2020 01-20-2025 Episodic Screening and history of mental health and substance abuse codes (20 sources) Ex-smoker; Translations: [Personal history of nicotine dependence] Onset: 01-05-2015 06-28-2021 Episodic Results Test Name Value Interpretation Reference Range Facility Basic Metabolic Profile (BMP )on 04-08-2025 BUN/CRE 18.5 RATIO Normal - [facility] Comment on above: Performed By: #### L 500.2500, L300.4310, L300.3900, L100.0100 ####[facility] [id number] [place], [address] Calcium [Mass/Vol] 10.0 mg/dL Normal 7.6-11.0 [facility] Comment on above: Performed By: #### L 500.2500, L300.4310, L300.3900, L100.0100 ####[facility] [id number] [place], [address] Chloride [Moles/Vol] 105 mmol/L Normal 98-108 [facility] Comment on above: Performed By: #### L 500.2500, L300.4310, L300.3900, L100.0100 ####[facility] [id number] [place], [address] CO2 [Moles/Vol] 25.2 mmol/L Normal 21.0-32.0 [facility] Comment on above: Performed By: #### L 500.2500, [id number], L300.3900, L100.0100 ####[facility] [id number] [place], [address] Creatinine [Mass/Vol] 0.94 mg/dL Normal 0.70-1.20 [facility] Comment on above: Performed By: #### L 500.2500, [id number], L300.3900, L100.0100 ####[facility] [id number] [place], [address] GAP 11 Normal 5-15 [facility] Comment on above: Performed By: #### L 500.2500, [id number], L300.3900, L100.0100 ####[facility] [id number] [place], [address] GFR/1.73 sq M.predicted among non-blacks MDRD (S/P/Bld) [Vol rate/Area] 64 mL/min/{1.73_m2} Normal >60 [facility] Comment on above: Result Comment: mL/m in/1.73m2 CKD-EPI Creatinine Equation (2020) Performed By: #### L 500.2500, L300.4310, L300.3900, L100.0100 ####[facility] [address] [place], [address] Glucose [Mass/Vol] 112 mg/dL High 70-99 [facility] Comment on above: Performed By: #### L 500.2500, L300.4310, L300.3900, L100.0100 ####[facility] [address] [place], [address] Potassium [Moles/Vol] 4.6 mmol/L Normal 3.3-5.1 [facility] Comment on above: Performed By: #### L 500.2500, L300.4310, L300.3900, L100.0100 ####[facility] [address] [place], [address] Sodium [Moles/Vol] 141 mmol/L Normal 133-145 [facility] Comment on above: Performed By: #### L 500.2500, L300.4310, L300.3900, L100.0100 ####[facility] [address] [place], [address] Urea nitrogen [Mass/Vol] 17 mg/dL Normal 4-19 [facility] Comment on above: Performed By: #### L 500.2500, L300.4310, L300.3900, L100.0100 ####[facility] [address] [place], [address] CBC W/Diff, Automatedon 10-0 7-2024 Absolute Lymph 1.15 X10 3/uL Normal 0.83-4.51 [facility] Comment on above: Performed By: #### L 500.2500, L300.4310, L300.3900, L100.0100 ####[facility] [address] [place], [address] Absolute Neut 5.2 X10 3/uL Normal 2.0-7.7 [facility] Comment on above: Performed By: #### L 500.2500, L300.4310, L300.3900, L100.0100 ####[facility] [address] [place], [address] Basophils/100 WBC (Bld) 0.7 % Normal 0-1 [facility] Comment on above: Performed By: #### L 500.2500, L300.4310, L300.3900, L100.0100 ####[facility] [address] [place], [address] Eosinophils/100 WBC (Bld) 2.3 % Normal 0-5 [facility] Comment on above: Performed By: #### L 500.2500, L300.4310, L300.3900, L100.0100 ####[facility] [address] [place], [address] Erythrocyte distribution width (RBC) [Ratio] 13.6 % Normal 11.6-14.6 [facility] Comment on above: Performed By: #### L 500.2500, L300.4310, L300.3900, L100.0100 ####[facility] [address] [place], [address] Hematocrit (Bld) [Volume fraction] 45.2 % Normal 37-47 [facility] Comment on above: Performed By: #### L 500.2500, L300.4310, L300.3900, L100.0100 ####[facility] [address] [place], [address] Hemoglobin (Bld) [Mass/Vol] 14.3 g/dL Normal 12.0-15.0 [facility] Comment on above: Performed By: #### L 500.2500, L300.4310, L300.3900, L100.0100 ####[facility] [address] [place], [address] IG% 0.600 Normal 0.0-0.9 [facility] Comment on above: Result Comment: IG% - Immature Granulocytes (promyelocytes, myelocytes and metamyelocytes) > 1% indicates that a LEFT SHIFT is Present. Performed By: #### L 500.2500, L300.4310, L300.3900, L100.0100 ####[facility] [address] [place], [address] Lymphocytes/100 WBC (Bld) 16.3 % Low 19-41 [facility] Comment on above: Performed By: #### L 500.2500, L300.4310, L300.3900, L100.0100 ####[facility] [address] [place], [address] MCH (RBC) [Entitic mass] 30.0 pg Normal 27.0-32.0 [facility] Comment on above: Performed By: #### L 500.2500, L300.4310, L300.3900, L100.0100 ####[facility] [address] [place], [address] MCHC (RBC) [Mass/Vol] 31.6 g/dL Low 32-36 [facility] Comment on above: Performed By: #### L 500.2500, L300.4310, L300.3900, L100.0100 ####[facility] [address] [place], [address] MCV (RBC) [Entitic vol] 95.0 fL Normal 81-99 [facility] Comment on above: Performed By: #### L 500.2500, L300.4310, L300.3900, L100.0100 ####[facility] [address] [place], [address] Monocytes/100 WBC (Bld) 6.7 % Normal 0-10 [facility] Comment on above: Performed By: #### L 500.2500, L300.4310, L300.3900, L100.0100 ####[facility] [address] [place], [address] Neutrophils/100 WBC (Bld) 73.4 % High 47-70 [facility] Comment on above: Performed By: #### L 500.2500, L300.4310, L300.3900, L100.0100 ####[facility] [address] [place], [address] Nucleated RBC (Bld) [#/Vol] 0 10*3/uL Normal 0-5 [facility] Comment on above: Performed By: #### L 500.2500, L300.4310, L300.3900, L100.0100 ####[facility] [address] [place], [address] Platelet mean volume (Bld) [Entitic vol] 10.4 fL Normal 6.2-12.0 [facility] Comment on above: Performed By: #### L 500.2500, L300.4310, L300.3900, L100.0100 ####[facility] [address] [place], [address] Platelets (Bld) [#/Vol] 215 10*3/uL Normal 150-450 [facility] Comment on above: Performed By: #### L 500.2500, L300.4310, L300.3900, L100.0100 ####[facility] [address] [place], [address] RBC (Bld) [#/Vol] 4.76 10*6/uL Normal 4.2-5.4 [facility] Comment on above: Performed By: #### L 500.2500, L300.4310, L300.3900, L100.0100 ####[facility] [address] [place], [address] RDW SD 47.4 fl High 35.1-43.9 [facility] Comment on above: Performed By: #### L 500.2500, L300.4310, L300.3900, L100.0100 ####[facility] [address] [place], [address] WBC (Bld) [#/Vol] 7.0 10*3/uL Normal 4.4-11.0 [facility] Comment on above: Performed By: #### L 500.2500, L300.4310, L300.3900, L100.0100 ####[facility] [address] [place], [address] Cardiology Visit Reporton Cardiology Visit Report [facility] [address] [place] [address] OFFICE VISIT Date of Service: 04/08/25 MR#: [id number] Acct: [id number] Name: WINSTON OHARA Rep #: [id number] : 1950 Provider: CHANCE Peacock Age/Sex: 75/F Location: [facility] Status: Signed HPI HPI History of Present Illness Details: The patient is a 75-year-old female with HTN, persistent atrial fibrillation, and a single kidney following transplant donor, presenting for evaluation of abnormal stress test results and ongoing arrhythmia management. Her atrial fibrillation began in 2017. In 02/2024, she presented with Afib with RVR following a knee replacement. At that time, a stress test was negative for ischemia, and echocardiogram showed EF 60% with mild to moderate tricuspid insufficiency and RVSP 50 mmHg. She was started on sotalol. In 08/2024, she presented to the ED with atrial fibrillation with RVR and underwent cardioversion. She reverted to atrial fibrillation in 12/2024, with symptoms of palpitations and rapid heart rate. In 01/2025, she was again admitted for atrial fibrillation with RVR, started on an amiodarone drip, and underwent another cardioversion due to poor rate control. She was discharged on amiodarone 200 mg daily and metoprolol 50 mg BID; sotalol was discontinued. Repeat echocardiogram at that time showed a decrease in EF to 30???40%. At follow-up, she was noted to be bradycardic. A subsequent stress test was abnormal (03/2025), showing anterior reversibility suggestive of basal to mid-anterior ischemia. She was referred to electrophysiology for consideration of ablation, but did not maintain sinus rhythm after cardioversion on amiodarone. She is currently taking Xarelto for anticoagulation. She denies any tobacco use and reports maintaining a healthy diet. 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 Accompanied by: Is patient in pain?: No Allergies flecainide Allergy (Verified 04/08/25 13:07) Left Bundle Branch Block/BUE tingling/leg weakness aspirin (ASA) Adverse Reaction (Verified 04/08/25 13:07) ONLY HAS ONE KIDNEY, TOLD TO AVOID cortisone Adverse Reaction (Verified 04/08/25 13:07) CHEST HOT WEIRD NSAIDS (Non-Steroidal Anti-Inflamma Adverse Reaction (Verified 04/08/25 13:07) ONLY HAS ONE KIDNEY, TOLD TO AVOID Medications ???Medication ???Instructions ???Recorded ???Confirmed ???Type fluticasone propionate 50 15.8 ml NS DAILY PRN ALLERGIES 04/08/25 History mcg/actuation nasal spray,suspension bismuth subsalicylate 262 mg 2 tablet PO Q30-60M PRN Diarrhea 0 10/08/20 04/08/25 History tablet (Pepto-Bismol) cholecalciferol (vitamin D3) 25 50 mcg PO DAILY Supplement 1 04/08/25 History mcg (1,000 unit) tablet (Vitamin D3) sertraline 25 mg tablet 25 mg PO DAILY anxiety 08/09/22 History acetaminophen 500 mg tablet 1,000 mg PO Q8 PRN pain 09/26/23 1 History zolpidem 5 mg tablet 5 mg PO QHS Sleep 09/26/23 5 History furosemide 40 mg tablet 40 mg PO DAILY PRN edema #30 tabs 12/04/23 04/08/25 Rx rivaroxaban 20 mg tablet 20 mg PO DAILY afib #90 tabs 10/0404/08/25 Rx amiodarone 200 mg tablet 200 mg PO DAILY #90 tabs 02/26/25 04/08/25 Rx lisinopril 5 mg tablet 5 mg PO QDAY #30 tabs 02/26/2501/24 Rx metoprolol tartrate 50 mg tablet 50 mg PO BID #180 tabs 02/26/25 Rx Ejection fraction %: 35 Have you fallen in the past year?: No PFSH Medical History (Updated 04/08/25 @ 13:36 by Teofilo FLETCHER, PA) Atrial flutter with rapid ventricular response Decreased left ventricular systolic function Elevated brain natriuretic peptide (BNP) level Shortness of breath Dyspnea Wears glasses Post-menopausal Arthritis History of [...] appendectomy Family History Mother Hypertension Father Hypertension (more content not included)... Normal [facility] Partial Thromboplast Timeon 04-08-2025 aPTT Coag (Bld) [Time] 36.2 s Normal 24.1-36.[address] [facility] Comment on above: Performed By: #### L 500.2500, L300.4310, L300.3900, L100.0100 ####[facility] [address], [address] Prothrombin Time w/INRon INR Coag (PPP) [Relative time] 2.0 {INR} Normal [facility] Comment on above: Performed By: #### L 500.2500, L300.4310, L300.3900, L100.0100 ####[facility] [address] [place], [address] PT Coag (PPP) [Time] 22.8 s High 11.7-14.9 [facility] Comment on above: Performed By: #### L 500.2500, L300.4310, L300.3900, L100.0100 ####[facility] [address] [place], [address] Cardiovascular stress test r eportOrdered By: Sterling Thapa on 03-31-2025 Study report [facility] [address] [place] [address] MR#: [id number] Acct: [id number] Name: LEVWINSTONBRIANNE GALLAGHER Rep #: [id number] : 1950 74 From: Sterling Thapa MD Primary Care: Dr. Liliam Alaniz MD Sta tus: REG CLI Referring Dr: Teofilo Dobson Sex : F C Stress Test Report Pharmacologic myocardial perfusion stress test. 74-year-old lady with a history of atrial fibrillation. Resting EKG demonstrates atrial fibrillation with a rate of 120 bpm. Resting blood pressure is 148/82 mmHg. 0.4 mg of regadenoson was infused per usual protocol followed by rapid intravenous saline flush injection. Continuous EKG monitoring was performed. The maximum heart rate was 133 bpm which was 89% of max impacted heart rate the maximum workload was 1 metabolic equivalent. At restthere were no ST or T wave changes noted to suggest ischemia and at peak infusion nonspecific ST changes were noted which did not meet the criteria for ischemia. No clinical angina is noted. The final blood pressure was 142/84mmHg. Myocardial perfusion protocol. 12 mCi of technetium 99m sestamibi was injected at rest. 0.4 mg of regadenoson was infused per usual protocol. At peak infusion 35 mCi of technetium 99m sestamibi was injected stress images were obtained stress and rest images were reconstructed and compared in the short axis vertical long and horizontal long axis. Gated images were also obtained. Perfusion SPECT analysis: Review of the stress images demonstrate normal uptake of tracer noted in all areas of the myocardium except for the basal to mid anterior wall. The resting images similar demonstrated normal uptake of tracer noted in all areas of the myocardium. Anterior reversibility is noted suggesting basal to mid anterior ischemia present. Gated SPECT analysis: The gated ejection fraction is 54%. Conclusion: Abnormal pharmacologic myocardial perfusion stress test. Preserved ejection fraction. Basal to mid anterior ischemia present. 03/31/25 1526 Date _ Sterling Thapa MD CC: Dr. Liliam Alaniz MD; CHANCE Anand ~ Date Dictated: 03/31/251509 Date Transcribed: 03/31/251509 Manager Multimedia: CO Signed [facility] Work Phone: Stress Reporton 03-31-2025 Stress Report [facility] [address] [id number] MR#: [id number] Acct: [id number] Name: WINSTON OHARA Rep #: [id number] : 1950 74 From: Stelring Thapa MD Primary Care: Dr. Liliam Alaniz MD Status: REG CLI Referring Dr: Teofilo Dobson Sex: F C Stress Test Report Pharmacologic myocardial perfusion stress test. 74-year-old lady with a history of atrial fibrillation. Resting EKG demonstrates atrial fibrillation with a rate of 120 bpm. Resting blood pressure is 148/82 mmHg. 0.4 mg of regadenoson was infused per usual protocol followed by rapid intravenous saline flush injection. Continuous EKG monitoring was performed. The maximum heart rate was 133 bpm which was 89% of max impacted heart rate the maximum workload was 1 metabolic equivalent. At rest there were no ST or T wave changes noted to suggest ischemia and at peak infusion nonspecific ST changes were noted which did not meet the criteria for ischemia. No clinical angina is noted. The final blood pressure was 142/84mmHg. Myocardial perfusion protocol. 12 mCi of technetium 99m sestamibi was injected at rest. 0.4 mg of regadenoson was infused per usual protocol. At peak infusion 35 mCi of technetium 99m sestamibi was injected stress images were obtained stress and rest images were reconstructed and compared in the short axis vertical long and horizontal long axis. Gated images were also obtained. Perfusion SPECT analysis: Review of the stress images demonstrate normal uptake of tracer noted in all areas of the myocardium except for the basal to mid anterior wall. The resting images similar demonstrated normal uptake of tracer noted in all areas of the myocardium. Anterior reversibility is noted suggesting basal to mid anterior ischemia present. Gated SPECT analysis: The gated ejection fraction is 54%. Conclusion: Abnormal pharmacologic myocardial perfusion stress test. Preserved ejection fraction. Basal to mid anterior ischemia present. 03/31/25 1526 Date Sterling Thapa MD CC: Dr. Liliam Alaniz MD; CHANCE Anand Date Dictated: 03/31/251509 Date Transcribed: 03/31/251509 Manager Multimedia: CO Signed Normal [facility] Danyell 03-25-2025 RUSTAM Telephone (AGCARDPOB ) LEVWINSTON David ([id number]) 1950 F NFR Date Time Provider Department 03/25/25 MKIAELA MCODNALD AGCNINO During your visit today, we recorded the following information about you: Princess Pizano LPN 03/25/2025 4:29 PM Signed Received records from [facility]. Scanned under [facility] clinical documents for review. RICHMOND Dugan Jennifer, LPN 04/08/2025 2:54 PM Signed Received office visit note from [facility]. Scanned in for review. 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 [3602] Prescriptions as of 04/08/2025 - lisinopril (ZESTRIL) 5 mg tablet Take [...] been reviewed today/August 01, 2007 Jessica Velásquez Manager Of Health Problem List As Of Date 03/25/2025 Noted Resolved Family history of malignant neoplasm [...] 01/17/2021 Persistent atrial fibrillation (HCC) [I48.19] 03/23/2025 [facility] current use of antiarrhythmic drug [Z*03/23/2025 [facility] current use of amiodarone [Z79.899] 03/23/2025 At risk for stroke [Z91.89] 03/23/2025 Anticoagulant long-term use [Z79.01] 03/23/2025 Atrial flutter (HCC) [I48.92] 03/23/2025 Absence of kidney [Z90.5] 03/23/2025 Anxiety [F41.9] 03/23/2025 Dyspnea on exertion [R06.09] 03/23/2025 Shortness of breath [R06.02] 03/23/2025 Sinus bradycardia [R00.1] 04/21/2023 History of total knee replacement [Z96.659] 03/23/2025 Status post total left knee replacement [Z96.65*03/23/2025 History of cardioversion [Z92.89] 11/11/2020 Encounter Status:Closed by PRINCESS PIZANO on 04/02/25 [facility] Solange 03-24-2025 CNOV Office Visit (AGCARDPOB) WINSTON OHARA ([id number]) 1950 F NFR Date Time Provider Department 03/24/25 2:20 PM MIKAELA MCDONALD During your visit today, we recorded the following information about you: Pulse Blood pressure Weight Height 91/minute 141/86 67.1 kg 1.651 m Mikaela Mcdonald MD 03/24/2025 6:36 PM Signed PRIMARY CARE PHYSICIAN: Liliam Alaniz [address] [place] [address] REFERRING PHYSICIAN: eTofilo Dobson ([facility]) [address] [facility] [address] Patient Care Team: Liliam Alaniz MD as PCP - General Katey Stanton APRN.LAWN MOWER OPERATOR as Server Systems Administrator (Internal Medicine) Teofilo Dobson PA-C as Physician Archivist Military History (Cardiology) Sterling Thapa MD as Specialty Hand Trimmer (Cardiology) Recording using Quotefish software for draft documentation of the visit was discussed with the patient/authorized car sales representative; all questions welcomed and answered. Patient/authorized car sales representative agreed to proceed CHIEF COMPLAINT: Evaluation of arrhythmia HISTORY OF PRESENT ILLNESS: Mrs. Ohara is a 74 year old female who presents today for evaluation of atrial arrhythmia, referred by [facility]. Ms. Ohara was first diagnosed with atrial fibrillation or atrial flutter in 2017. 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 Normal [facility] Anion gap in Serum or Plasma Ordered By: Teofilo Dobson on 03-11-2025 Anion gap [Moles/Vol] 12 mmol/L 11-14 [facility] BUN/creatinine ratioOrdered By: Teofilo Dobson on 03-11-2025 Urea nitrogen/Creatinine [Mass ratio] 14.4 mg/mg 04-21 [facility] Basic Metabolic Profile (BMP )on 03-11-2025 BUN/CRE 14.4 RATIO Normal 04-21 [facility] Comment on above: Performed By: #### L 500.2500 #### [facility] [address] [place], [address] Calcium [Mass/Vol] 9.4 mg/dL Normal 7.6-11.0 [facility] Comment on above: Performed By: #### L 500.2500 #### [facility] [address] [place], [address] Chloride [Moles/Vol] 106 mmol/L Normal 98-108 [facility] Comment on above: Performed By: #### L 500.2500 #### [facility] [address] [place], [address] CO2 [Moles/Vol] 22.9 mmol/L Normal 21.0-32.0 [facility] Comment on above: Performed By: #### L 500.2500 #### [facility] [address] [place], [address] Creatinine [Mass/Vol] 1.05 mg/dL Normal 0.70-1.20 [facility] Comment on above: Performed By: #### L 500.2500 #### [facility] [address] [place], [address] GAP 12 Normal 11-14 [facility] Comment on above: Performed By: #### L 500.2500 #### [facility] [address] [place], [address] GFR/1.73 sq M.predicted among non-blacks MDRD (S/P/Bld) [Vol rate/Area] 56 mL/min/{1.73_m2} Low >60 [facility] Comment on above: Result Comment: mL/m in/1.73m2 CKD-EPI Creatinine Equation (2020) Performed By: #### L 500.2500 #### [facility] [address] [place], [address] Glucose [Mass/Vol] 132 mg/dL High 70-99 [facility] Comment on above: Performed By: #### L 500.2500 #### [facility] [address] [place], [address] Potassium [Moles/Vol] 4.9 mmol/L Normal 3.3-5.1 [facility] Comment on above: Performed By: #### L 500.2500 #### [facility] [address] [place], [address] Sodium [Moles/Vol] 140 mmol/L Normal 133-145 [facility] Comment on above: Performed By: #### L 500.2500 #### [facility] [address] [place], [address] Urea nitrogen [Mass/Vol] 15 mg/dL Normal 4-19 [facility] Comment on above: Performed By: #### L 500.2500 #### [facility] [address] [place], [address] Carbon dioxide, total [Moles /volume] in Central venous bloodOrdered By: Teofilo Dobson on 03-11-2025 CO2 [Moles/Vol] 22.9 mmol/L 21.0-32.0 [facility] Chloride assayOrdered By: Xiao Dobson on 03-11-2025 Chloride [Moles/Vol] 106 mmol/L 98-108 [facility] Glomerular filtration rate ( GFR) estimation/1.73 sq m using serum, plasma, or whole bOrdered By: Teofilo Dobson on 03-11-2025 GFR/1.73 sq M.predicted among non-blacks MDRD (S/P/Bld) [Vol rate/Area] 56 mL/min/{1.73_m2} Low >60 [facility] Comment on above: mL/min/1.73m2 CKD-EP I Creatinine Equation (2020) Potassium measurement (mass/ volume)Ordered By: Teofilo Dobson on 03-11-2025 Potassium (Unsp spec) [Mass/Vol] 4.9 mmol/L 3.3-5.1 [facility] Serum creatinine measurement (mass/volume)Ordered By: Teofilo Dobson on 03-11-2025 Creatinine [Mass/Vol] 1.05 mg/dL 0.70-1.20 [facility] Serum glucose measurement (m ass/volume)Ordered By: Teofilo Dobson on 03-11-2025 Glucose [Mass/Vol] 132 mg/dL High 70-99 [facility] Serum or plasma calcium hay urement (mass/volume)Ordered By: Teofilo Dobson on 03-11-2025 Calcium [Mass/Vol] 9.4 mg/dL 7.6-11.0 [facility] Serum or plasma urea nitroge n measurement (mass/volume)Ordered By: Teofilo Dobson on 03-11-2025 Urea nitrogen [Mass/Vol] 15 mg/dL 4-19 [facility] Sodium levelOrdered By: Michael Dobson on 03-11-2025 Sodium [Moles/Vol] 140 mmol/L 133-145 [facility] Cardiology Visit Reporton Cardiology Visit Report [facility] [address] [place] [address]. [address] [place] [address] OFFICE VISIT Date of Service: 02/26/25 MR#: [id number] Acct: [id number] Name: WINSTON OHARA Rep #: [id number] : 1950 Provider: CHANCE Peacock Age/Sex: 74/F Location: [facility] Status: Signed HPI HPI History of Present [...] not have any chest pain, lightheadedness/dizzine ss. Patient was admitted to [facility] on April 12, 2025 with complaints of dizziness. She was noted to be in atrial fibrillation with RVR. She was started on an amiodarone drip. Cardiology was consulted. Her heart rate remained poorly consulted. She did undergo a cardioversion on February 10, 2025. She also did receive a dose of digoxin. She was discharged home on amiodarone 200 mg daily, metoprolol 50 mg twice a day and her sotalol was discontinued. Unfortunately her echocardiogram did demonstrate a decreased ejection fraction of 35 to 40%. Pt notes that she is feeling much better with these medication changes. She does not have any SOB or CP. She has not had any palpitations. Her weight is back down. EKG today demonstrates Marked sinus bradycardia with a HR of 43. Intake Vital Signs 02/10/25 13:51 02/26/25 12:56 Height 5 ft 4 in 5 ft 4 in Weight: 157 lb 6.561 oz 151 lb BMI 25.9 BP 135/73 H Blood Pressure Location Lt brachial Position Sitting Respiration 16 Pulse 42 L Pulse Source Monitor Intake Visit Reasons: S/P [facility] 02/10 [employer] Required: No Accompanied by: Self Is patient in pain?: No Allergies flecainide Allergy (Verified 02/26/25 13:10) Left Bundle Branch Block/BUE tingling/leg weakness aspirin (ASA) Adverse Reaction (Verified 02/26/25 13:10) ONLY HAS ONE KIDNEY, TOLD TO AVOID cortisone Adverse Reaction (Verified 02/26/25 13:10) CHEST HOT WEIRD NSAIDS (Non-Steroidal Anti-Inflamma Adverse Reaction (Verified 02/26/25 13:10) ONLY HAS ONE KIDNEY, TOLD TO AVOID Medications ???Medication ???Instructions ???Recorded ???Confirmed ???Type fluticasone propionate 50 15.8 ml NS DAILY PRN ALLERGIES 02/26/25 History mcg/actuation nasal spray,suspension bismuth subsalicylate 262 mg 2 tablet PO Q30-60M PRN Diarrhea 0 10/08/20 02/26/25 History tablet (Pepto-Bismol) cholecalciferol (vitamin D3) 25 50 mcg PO DAILY Supplement 1 02/26/25 History mcg (1,000 unit) tablet (Vitamin D3) sertraline 25 mg tablet 25 mg PO DAILY anxiety 08/09/22 History acetaminophen 500 mg tablet 1,000 mg PO Q8 PRN pain 09/26/23 0 02/26/25 History zolpidem 5 mg tablet 5 mg PO QHS Sleep 09/26/23 5 History furosemide 40 mg tablet 40 mg PO DAILY PRN edema #30 tabs 12/04/23 02/26/25 Rx rivaroxaban 20 mg tablet 20 mg PO DAILY afib #90 tabs 10/0402/26/25 Rx amiodarone 200 mg tablet 200 mg PO DAILY #90 tabs 02/26/25 02/26/25 Rx lisinopril 5 mg tablet 5 mg PO QDAY #30 tabs 02/26/25 Rx metoprolol tartrate 50 mg tablet 50 mg PO BID #180 tabs 02/26/25 Rx Ejection fraction %: 35 Have you fallen in the past year?: No PFSH Medical History (Updated 02/27/25 @ 13:35 by Sharon Orozco) Decreased left ventricular systolic function Atrial flutter with rapid ventricular response Elevated brain natriuretic peptide (BNP) level Shortness of breath Dyspnea Wears glasses Post-menopausal Arthritis History of diverticulitis Former smoker History of pain when walking History of edema Normal stress echocardiogram Hx of thyroid cyst Persistent atrial fibrillation ( (more content not included)... Normal [facility] CNOVon 02-17-2025 CNOV Office Visit (INTMWS ) WINSTON OHARA ([id number]) 1950 F NFR Date Time Provider Department 02/17/25 2:00 PM LILIAM ALANIZ INTMWS During your visit today, we recorded the following information about you: Pulse Respiration Blood pressure Weight 52/minute 16/minute 128/72 68.8 kg Liliam Alaniz MD 02/17/2025 3:10 PM Signed Subjective Winston [...] stable in the 50s, and she feels normal for once, without episodes of tachycardia. However, she expresses [...] Winston has an upcoming appointment with Dr. Mcdonald on March 24 to discuss the possibility [...] TID. She notes that the area is coke still cleaner but is improving. PAST MEDICAL HISTORY Diagnosis [...] lb) No waist measurement recorded Estimated body (more content not included)... Normal [facility] Basic Metabolic Profile (BMP )on 02-16-2025 BUN Normal -19 [facility] Comment on above: Result Comment: Canc elled via OM: Order cancelled - Patient discharged Performed By: #### L 500.2500, L100.0100 #### [facility] [address] [place], [address] BUN/CRE Normal 10-20 [facility] Comment on above: Result Comment: Canc elled via OM: Order cancelled - Patient discharged Performed By: #### L 500.2500, L100.0100 #### [facility] [address] [place], [address] Calcium Normal 7.6-11.0 [facility] Comment on above: Result Comment: Canc elled via OM: Order cancelled - Patient discharged Performed By: #### L 500.2500, L100.0100 #### [facility] [address] [place], [address] CL Normal 98-108 [facility] Comment on above: Result Comment: Canc elled via OM: Order cancelled - Patient discharged Performed By: #### L 500.2500, L100.0100 #### [facility] [address] [place], [address] CO2 Normal 21.0-32.0 [facility] Comment on above: Result Comment: Canc elled via OM: Order cancelled - Patient discharged Performed By: #### L 500.2500, L100.0100 #### [facility] [address] [place], [address] CREAT,SERUM Normal 0.70-1.20 [facility] Comment on above: Result Comment: Canc elled via OM: Order cancelled - Patient discharged Performed By: #### L 500.2500, L100.0100 #### [facility] [address] [place], [address] eGFR Normal >60 [facility] Comment on above: Result Comment: Canc elled via OM: Order cancelled - Patient discharged Performed By: #### L 500.2500, L100.0100 #### [facility] [address] [place], [address] GAP Normal 5-15 [facility] Comment on above: Result Comment: Canc elled via OM: Order cancelled - Patient discharged Performed By: #### L 500.2500, L100.0100 #### [facility] [address] [place], [address] GLU Normal 70-99 [facility] Comment on above: Result Comment: Canc elled via OM: Order cancelled - Patient discharged Performed By: #### L 500.2500, L100.0100 #### [facility] [address] [place], [address] Potassium Normal 3.3-5.1 [facility] Comment on above: Result Comment: Canc elled via OM: Order cancelled - Patient discharged Performed By: #### L 500.2500, L100.0100 #### [facility] [address] [place], [address] Basic Metabolic Profile (BMP) Normal 133-145 [facility] Comment on above: Result Comment: Canc elled via OM: Order cancelled - Patient discharged Performed By: #### L 500.2500, L100.0100 #### [facility] [address] [place], [address] CBC W/Diff, Automatedon 08- Absolute Neut Normal 2.0-7.7 [facility] Comment on above: Result Comment: Canc elled via OM: Order cancelled - Patient discharged Performed By: #### L 500.2500, L100.0100 #### [facility] [address] [place], [address] HCT Normal 37-47 [facility] Comment on above: Result Comment: Canc elled via OM: Order cancelled - Patient discharged Performed By: #### L 500.2500, L100.0100 #### [facility] [address] [place], [address] HGB Normal 12.0-15.0 [facility] Comment on above: Result Comment: Canc elled via OM: Order cancelled - Patient discharged Performed By: #### L 500.2500, L100.0100 #### [facility] [address] [place], [address] MCH Normal 27.0-32.0 [facility] Comment on above: Result Comment: Canc elled via OM: Order cancelled - Patient discharged Performed By: #### L 500.2500, L100.0100 #### [facility] [address] [place], [address] MCHC Normal 32-36 [facility] Comment on above: Result Comment: Canc elled via OM: Order cancelled - Patient discharged Performed By: #### L 500.2500, L100.0100 #### [facility] [address] [place], [address] MCV Normal 81-99 [facility] Comment on above: Result Comment: Canc elled via OM: Order cancelled - Patient discharged Performed By: #### L 500.2500, L100.0100 #### [facility] [address] [place], [address] NEUT% Normal 47-70 [facility] Comment on above: Result Comment: Canc elled via OM: Order cancelled - Patient discharged Performed By: #### L 500.2500, L100.0100 #### [facility] [address] [place], [address] PLT Normal 150-450 [facility] Comment on above: Result Comment: Canc elled via OM: Order cancelled - Patient discharged Performed By: #### L 500.2500, L100.0100 #### [facility] [address] [place], [address] RBC Normal 4.2-5.4 [facility] Comment on above: Result Comment: Canc elled via OM: Order cancelled - Patient discharged Performed By: #### L 500.2500, L100.0100 #### [facility] [address] [place], [address] RDW CV Normal 11.6-14.6 [facility] Comment on above: Result Comment: Canc elled via OM: Order cancelled - Patient discharged Performed By: #### L 500.2500, L100.0100 #### [facility] [address] [place], [address] RDW SD Normal 35.1-43.9 [facility] Comment on above: Result Comment: Canc elled via OM: Order cancelled - Patient discharged Performed By: #### L 500.2500, L100.0100 #### [facility] [address] [place], [address] WBC Normal 4.4-11.0 [facility] Comment on above: Result Comment: Canc elled via OM: Order cancelled - Patient discharged Performed By: #### L 500.2500, L100.0100 #### [facility] [address] [place], [address] Basic Metabolic Profile (BMP )on 02-15-2025 BUN Normal 4-19 [facility] Comment on above: Result Comment: Canc elled via OM: Order cancelled - Patient discharged Performed By: #### L 500.2500, L100.0100 ####[facility] [address] [place], [address] BUN/CRE Normal 10-20 [facility] Comment on above: Result Comment: Canc elled via OM: Order cancelled - Patient discharged Performed By: #### L 500.2500, L100.0100 ####[facility] [address] [place], [address] Calcium Normal 7.6-11.0 [facility] Comment on above: Result Comment: Canc elled via OM: Order cancelled - Patient discharged Performed By: #### L 500.2500, L100.0100 ####[facility] [address] [place], [address] CL Normal 98-108 [facility] Comment on above: Result Comment: Canc elled via OM: Order cancelled - Patient discharged Performed By: #### L 500.2500, L100.0100 ####[facility] [address] [place], [address] CO2 Normal 21.0-32.0 [facility] Comment on above: Result Comment: Canc elled via OM: Order cancelled - Patient discharged Performed By: #### L 500.2500, L100.0100 ####[facility] [address] [place], [address] CREAT,SERUM Normal 0.70-1.20 [facility] Comment on above: Result Comment: Canc elled via OM: Order cancelled - Patient discharged Performed By: #### L 500.2500, L100.0100 ####[facility] [address] [place], [address] eGFR Normal >60 [facility] Comment on above: Result Comment: Canc elled via OM: Order cancelled - Patient discharged Performed By: #### L 500.2500, L100.0100 ####[facility] [address] [place], [address] GAP Normal 5-15 [facility] Comment on above: Result Comment: Canc elled via OM: Order cancelled - Patient discharged Performed By: #### L 500.2500, L100.0100 ####[facility] [address] [place], [address] GLU Normal 70-99 [facility] Comment on above: Result Comment: Canc elled via OM: Order cancelled - Patient discharged Performed By: #### L 500.2500, L100.0100 ####[facility] [address] [place], [address] Potassium Normal 3.3-5.1 [facility] Comment on above: Result Comment: Canc elled via OM: Order cancelled - Patient discharged Performed By: #### L 500.2500, L100.0100 ####[facility] [address] [place], [address] Basic Metabolic Profile (BMP) Normal 133-145 [facility] Comment on above: Result Comment: Canc elled via OM: Order cancelled - Patient discharged Performed By: #### L 500.2500, L100.0100 ####[facility] [address] [place], [address] CBC W/Diff, Automatedon 08- Absolute Neut Normal 2.0-7.7 [facility] Comment on above: Result Comment: Canc elled via OM: Order cancelled - Patient discharged Performed By: #### L 500.2500, L100.0100 ####[facility] [address] [place], [address] HCT Normal 37-47 [facility] Comment on above: Result Comment: Canc elled via OM: Order cancelled - Patient discharged Performed By: #### L 500.2500, L100.0100 ####[facility] [address] [place], [address] HGB Normal 12.0-15.0 [facility] Comment on above: Result Comment: Canc elled via OM: Order cancelled - Patient discharged Performed By: #### L 500.2500, L100.0100 ####[facility] [address] [place], [address] MCH Normal 27.0-32.0 [facility] Comment on above: Result Comment: Canc elled via OM: Order cancelled - Patient discharged Performed By: #### L 500.2500, L100.0100 ####[facility] [address] [place], [address] MCHC Normal 32-36 [facility] Comment on above: Result Comment: Canc elled via OM: Order cancelled - Patient discharged Performed By: #### L 500.2500, L100.0100 ####[facility] [address] [place], [address] MCV Normal 81-99 [facility] Comment on above: Result Comment: Canc elled via OM: Order cancelled - Patient discharged Performed By: #### L 500.2500, L100.0100 ####[facility] [address] [place], [address] NEUT% Normal 47-70 [facility] Comment on above: Result Comment: Canc elled via OM: Order cancelled - Patient discharged Performed By: #### L 500.2500, L100.0100 ####[facility] [address] [place], [address] PLT Normal 150-450 [facility] Comment on above: Result Comment: Canc elled via OM: Order cancelled - Patient discharged Performed By: #### L 500.2500, L100.0100 ####[facility] [address] [place], [address] RBC Normal 4.2-5.4 [facility] Comment on above: Result Comment: Canc elled via OM: Order cancelled - Patient discharged Performed By: #### L 500.2500, L100.0100 ####[facility] [address] [place], [address] RDW CV Normal 11.6-14.6 [facility] Comment on above: Result Comment: Canc elled via OM: Order cancelled - Patient discharged Performed By: #### L 500.2500, L100.0100 ####[facility] [address] [place], [address] RDW SD Normal 35.1-43.9 [facility] Comment on above: Result Comment: Canc elled via OM: Order cancelled - Patient discharged Performed By: #### L 500.2500, L100.0100 ####[facility] [address] [place], [address] WBC Normal 4.4-11.0 [facility] Comment on above: Result Comment: Canc elled via OM: Order cancelled - Patient discharged Performed By: #### L 500.2500, L100.0100 ####[facility] [address] [place], [address] Basic Metabolic Profile (BMP )on 02-14-2025 BUN Normal 4-19 [facility] Comment on above: Result Comment: Canc elled via OM: Order cancelled - Patient discharged Performed By: #### L 500.2500, L100.0100 #### [facility] [address] [place], [address] BUN/CRE Normal 10-20 [facility] Comment on above: Result Comment: Canc elled via OM: Order cancelled - Patient discharged Performed By: #### L 500.2500, L100.0100 #### [facility] [address] [place], [address] Calcium Normal 7.6-11.0 [facility] Comment on above: Result Comment: Canc elled via OM: Order cancelled - Patient discharged Performed By: #### L 500.2500, L100.0100 #### [facility] [address] [place], [address] CL Normal 98-108 [facility] Comment on above: Result Comment: Canc elled via OM: Order cancelled - Patient discharged Performed By: #### L 500.2500, L100.0100 #### [facility] [address] [place], [address] CO2 Normal 21.0-32.0 [facility] Comment on above: Result Comment: Canc elled via OM: Order cancelled - Patient discharged Performed By: #### L 500.2500, L100.0100 #### [facility] [address] [place], [address] CREAT,SERUM Normal 0.70-1.20 [facility] Comment on above: Result Comment: Canc elled via OM: Order cancelled - Patient discharged Performed By: #### L 500.2500, L100.0100 #### [facility] [address] [place], [address] eGFR Normal >60 [facility] Comment on above: Result Comment: Canc elled via OM: Order cancelled - Patient discharged Performed By: #### L 500.2500, L100.0100 #### [facility] [address] [place], [address] GAP Normal 5-15 [facility] Comment on above: Result Comment: Canc elled via OM: Order cancelled - Patient discharged Performed By: #### L 500.2500, L100.0100 #### [facility] [address] [place], [address] GLU Normal 70-99 [facility] Comment on above: Result Comment: Canc elled via OM: Order cancelled - Patient discharged Performed By: #### L 500.2500, L100.0100 #### [facility] [address] [place], [address] Potassium Normal 3.3-5.1 [facility] Comment on above: Result Comment: Canc elled via OM: Order cancelled - Patient discharged Performed By: #### L 500.2500, L100.0100 #### [facility] [address] [place], [address] Basic Metabolic Profile (BMP) Normal 133-145 [facility] Comment on above: Result Comment: Canc elled via OM: Order cancelled - Patient discharged Performed By: #### L 500.2500, L100.0100 #### [facility] [address] [place], [address] CBC W/Diff, Automatedon 08-1 Absolute Neut Normal 2.0-7.7 [facility] Comment on above: Result Comment: Canc elled via OM: Order cancelled - Patient discharged Performed By: #### L 500.2500, L100.0100 #### [facility] [address] [place], [address] HCT Normal 37-47 [facility] Comment on above: Result Comment: Canc elled via OM: Order cancelled - Patient discharged Performed By: #### L 500.2500, L100.0100 #### [facility] [address] [place], [address] HGB Normal 12.0-15.0 [facility] Comment on above: Result Comment: Canc elled via OM: Order cancelled - Patient discharged Performed By: #### L 500.2500, L100.0100 #### [facility] [address] [place], [address] MCH Normal 27.0-32.0 [facility] Comment on above: Result Comment: Canc elled via OM: Order cancelled - Patient discharged Performed By: #### L 500.2500, L100.0100 #### [facility] [address] [place], [address] MCHC Normal 32-36 [facility] Comment on above: Result Comment: Canc elled via OM: Order cancelled - Patient discharged Performed By: #### L 500.2500, L100.0100 #### [facility] [address] [place], [address] MCV Normal 81-99 [facility] Comment on above: Result Comment: Canc elled via OM: Order cancelled - Patient discharged Performed By: #### L 500.2500, L100.0100 #### [facility] [address] [place], [address] NEUT% Normal 47-70 [facility] Comment on above: Result Comment: Canc elled via OM: Order cancelled - Patient discharged Performed By: #### L 500.2500, L100.0100 #### [facility] [address] [place], [address] PLT Normal 150-450 [facility] Comment on above: Result Comment: Canc elled via OM: Order cancelled - Patient discharged Performed By: #### L 500.2500, L100.0100 #### [facility] [address] [place], [address] RBC Normal 4.2-5.4 [facility] Comment on above: Result Comment: Canc elled via OM: Order cancelled - Patient discharged Performed By: #### L 500.2500, L100.0100 #### [facility] [address] [place], [address] RDW CV Normal 11.6-14.6 [facility] Comment on above: Result Comment: Canc elled via OM: Order cancelled - Patient discharged Performed By: #### L 500.2500, L100.0100 #### [facility] [address] [place], [address] RDW SD Normal 35.1-43.9 [facility] Comment on above: Result Comment: Canc elled via OM: Order cancelled - Patient discharged Performed By: #### L 500.2500, L100.0100 #### [facility] [address] [place], [address] WBC Normal 4.4-11.0 [facility] Comment on above: Result Comment: Canc elled via OM: Order cancelled - Patient discharged Performed By: #### L 500.2500, L100.0100 #### [facility] [address] [place], [address] Basic Metabolic Profile (BMP )on 02-13-2025 BUN Normal 4-19 [facility] Comment on above: Result Comment: Canc elled via OM: Order cancelled - Patient discharged Performed By: #### L 500.2500 #### [facility] [address] [place], [address] BUN/CRE Normal 10-20 [facility] Comment on above: Result Comment: Canc elled via OM: Order cancelled - Patient discharged Performed By: #### L 500.2500 #### [facility] [address] [place], [address] Calcium Normal 7.6-11.0 [facility] Comment on above: Result Comment: Canc elled via OM: Order cancelled - Patient discharged Performed By: #### L 500.2500 #### [facility] [address] [place], [address] CL Normal 98-108 [facility] Comment on above: Result Comment: Canc elled via OM: Order cancelled - Patient discharged Performed By: #### L 500.2500 #### [facility] [address] [place], [address] CO2 Normal 21.0-32.0 [facility] Comment on above: Result Comment: Canc elled via OM: Order cancelled - Patient discharged Performed By: #### L 500.2500 #### [facility] [address] [place], [address] CREAT,SERUM Normal 0.70-1.20 [facility] Comment on above: Result Comment: Canc elled via OM: Order cancelled - Patient discharged Performed By: #### L 500.2500 #### [facility] [address] [place], [address] eGFR Normal >60 [facility] Comment on above: Result Comment: Canc elled via OM: Order cancelled - Patient discharged Performed By: #### L 500.2500 #### [facility] [address] [place], [address] GAP Normal 5-15 [facility] Comment on above: Result Comment: Canc elled via OM: Order cancelled - Patient discharged Performed By: #### L 500.2500 #### [facility] [address] [place], [address] GLU Normal 70-99 [facility] Comment on above: Result Comment: Canc elled via OM: Order cancelled - Patient discharged Performed By: #### L 500.2500 #### [facility] [address] [place], [address] Potassium Normal 3.3-5.1 [facility] Comment on above: Result Comment: Canc elled via OM: Order cancelled - Patient discharged Performed By: #### L 500.2500 #### [facility] [address] [place], [address] Basic Metabolic Profile (BMP) Normal 133-145 [facility] Comment on above: Result Comment: Canc elled via OM: Order cancelled - Patient discharged Performed By: #### L 500.2500 #### [facility] [address] [place], [address] CBC W/Diff, Automatedon 08-1 Absolute Neut Normal 2.0-7.7 [facility] Comment on above: Result Comment: Canc elled via OM: Order cancelled - Patient discharged Performed By: #### L 500.2500 #### [facility] [address] [place], [address] HCT Normal 37-47 [facility] Comment on above: Result Comment: Canc elled via OM: Order cancelled - Patient discharged Performed By: #### L 500.2500 #### [facility] [address] [place], [address] HGB Normal 12.0-15.0 [facility] Comment on above: Result Comment: Canc elled via OM: Order cancelled - Patient discharged Performed By: #### L 500.2500 #### [facility] [address] [place], [address] MCH Normal 27.0-32.0 [facility] Comment on above: Result Comment: Canc elled via OM: Order cancelled - Patient discharged Performed By: #### L 500.2500 #### [facility] [address] [place], [address] MCHC Normal 32-36 [facility] Comment on above: Result Comment: Canc elled via OM: Order cancelled - Patient discharged Performed By: #### L 500.2500 #### [facility] [address] [place], [address] MCV Normal 81-99 [facility] Comment on above: Result Comment: Canc elled via OM: Order cancelled - Patient discharged Performed By: #### L 500.2500 #### [facility] [address] [place], [address] NEUT% Normal 47-70 [facility] Comment on above: Result Comment: Canc elled via OM: Order cancelled - Patient discharged Performed By: #### L 500.2500 #### [facility] [address] [place], [address] PLT Normal 150-450 [facility] Comment on above: Result Comment: Canc elled via OM: Order cancelled - Patient discharged Performed By: #### L 500.2500 #### [facility] [address] [place], [address] RBC Normal 4.2-5.4 [facility] Comment on above: Result Comment: Canc elled via OM: Order cancelled - Patient discharged Performed By: #### L 500.2500 #### [facility] [address] [place], [address] RDW CV Normal 11.6-14.6 [facility] Comment on above: Result Comment: Canc elled via OM: Order cancelled - Patient discharged Performed By: #### L 500.2500 #### [facility] [address] [place], [address] RDW SD Normal 35.1-43.9 [facility] Comment on above: Result Comment: Canc elled via OM: Order cancelled - Patient discharged Performed By: #### L 500.2500 #### [facility] [address] [place], [address] WBC Normal 4.4-11.0 [facility] Comment on above: Result Comment: Canc elled via OM: Order cancelled - Patient discharged Performed By: #### L 500.2500 #### [facility] [address] [place], [address] Basic Metabolic Profile (BMP )on 02-12-2025 BUN Normal 4-19 [facility] Comment on above: Result Comment: Canc elled via OM: Order cancelled - Patient discharged Performed By: #### L 500.2500, L100.0100 #### [facility] [address] [place], [address] BUN/CRE Normal 10-20 [facility] Comment on above: Result Comment: Canc elled via OM: Order cancelled - Patient discharged Performed By: #### L 500.2500, L100.0100 #### [facility] [address] [place], [address] Calcium Normal 7.6-11.0 [facility] Comment on above: Result Comment: Canc elled via OM: Order cancelled - Patient discharged Performed By: #### L 500.2500, L100.0100 #### [facility] [address] [place], [address] CL Normal 98-108 [facility] Comment on above: Result Comment: Canc elled via OM: Order cancelled - Patient discharged Performed By: #### L 500.2500, L100.0100 #### [facility] [address] [place], [address] CO2 Normal 21.0-32.0 [facility] Comment on above: Result Comment: Canc elled via OM: Order cancelled - Patient discharged Performed By: #### L 500.2500, L100.0100 #### [facility] [address] [place], [address] CREAT,SERUM Normal 0.70-1.20 [facility] Comment on above: Result Comment: Canc elled via OM: Order cancelled - Patient discharged Performed By: #### L 500.2500, L100.0100 #### [facility] [address] [place], [address] eGFR Normal >60 [facility] Comment on above: Result Comment: Canc elled via OM: Order cancelled - Patient discharged Performed By: #### L 500.2500, L100.0100 #### [facility] [address] [place], [address] GAP Normal 5-15 [facility] Comment on above: Result Comment: Canc elled via OM: Order cancelled - Patient discharged Performed By: #### L 500.2500, L100.0100 #### [facility] [address] [place], [address] GLU Normal 70-99 [facility] Comment on above: Result Comment: Canc elled via OM: Order cancelled - Patient discharged Performed By: #### L 500.2500, L100.0100 #### [facility] [address] [place], [address] Potassium Normal 3.3-5.1 [facility] Comment on above: Result Comment: Canc elled via OM: Order cancelled - Patient discharged Performed By: #### L 500.2500, L100.0100 #### [facility] [address] [place], [address] Basic Metabolic Profile (BMP) Normal 133-145 [facility] Comment on above: Result Comment: Canc elled via OM: Order cancelled - Patient discharged Performed By: #### L 500.2500, L100.0100 #### [facility] [address] [place], [address] CBC W/Diff, Automatedon 08 Absolute Neut Normal 2.0-7.7 [facility] Comment on above: Result Comment: Canc elled via OM: Order cancelled - Patient discharged Performed By: #### L 500.2500, L100.0100 #### [facility] [address] [place], [address] HCT Normal 37-47 [facility] Comment on above: Result Comment: Canc elled via OM: Order cancelled - Patient discharged Performed By: #### L 500.2500, L100.0100 #### [facility] [address] [place], [address] HGB Normal 12.0-15.0 [facility] Comment on above: Result Comment: Canc elled via OM: Order cancelled - Patient discharged Performed By: #### L 500.2500, L100.0100 #### [facility] [address] [place], [address] MCH Normal 27.0-32.0 [facility] Comment on above: Result Comment: Canc elled via OM: Order cancelled - Patient discharged Performed By: #### L 500.2500, L100.0100 #### [facility] [address] [place], [address] MCHC Normal 32-36 [facility] Comment on above: Result Comment: Canc elled via OM: Order cancelled - Patient discharged Performed By: #### L 500.2500, L100.0100 #### [facility] [address] [place], [address] MCV Normal 81-99 [facility] Comment on above: Result Comment: Canc elled via OM: Order cancelled - Patient discharged Performed By: #### L 500.2500, L100.0100 #### [facility] [address] [place], [address] NEUT% Normal 47-70 [facility] Comment on above: Result Comment: Canc elled via OM: Order cancelled - Patient discharged Performed By: #### L 500.2500, L100.0100 #### [facility] [address] [place], [address] PLT Normal 150-450 [facility] Comment on above: Result Comment: Canc elled via OM: Order cancelled - Patient discharged Performed By: #### L 500.2500, L100.0100 #### [facility] [address] [place], [address] RBC Normal 4.2-5.4 [facility] Comment on above: Result Comment: Canc elled via OM: Order cancelled - Patient discharged Performed By: #### L 500.2500, L100.0100 #### [facility] [address] [place], [address] RDW CV Normal 11.6-14.6 [facility] Comment on above: Result Comment: Canc elled via OM: Order cancelled - Patient discharged Performed By: #### L 500.2500, L100.0100 #### [facility] [address] [place], [address] RDW SD Normal 35.1-43.9 [facility] Comment on above: Result Comment: Canc elled via OM: Order cancelled - Patient discharged Performed By: #### L 500.2500, L100.0100 #### [facility] [address] [place], [address] WBC Normal 4.4-11.0 [facility] Comment on above: Result Comment: Canc elled via OM: Order cancelled - Patient discharged Performed By: #### L 500.2500, L100.0100 #### [facility] [address] [place], [address] Basic Metabolic Profile (BMP )on 02-11-2025 BUN Normal 4-19 [facility] Comment on above: Result Comment: Canc elled via OM: Order cancelled - Patient discharged Performed By: #### L 500.2500, L100.0100 #### [facility] [address] [place], [address] BUN/CRE Normal 10-20 [facility] Comment on above: Result Comment: Canc elled via OM: Order cancelled - Patient discharged Performed By: #### L 500.2500, L100.0100 #### [facility] [address] [place], [address] Calcium Normal 7.6-11.0 [facility] Comment on above: Result Comment: Canc elled via OM: Order cancelled - Patient discharged Performed By: #### L 500.2500, L100.0100 #### [facility] [address] [place], [address] CL Normal 98-108 [facility] Comment on above: Result Comment: Canc elled via OM: Order cancelled - Patient discharged Performed By: #### L 500.2500, L100.0100 #### [facility] [address] [place], [address] CO2 Normal 21.0-32.0 [facility] Comment on above: Result Comment: Canc elled via OM: Order cancelled - Patient discharged Performed By: #### L 500.2500, L100.0100 #### [facility] [address] [place], [address] CREAT,SERUM Normal 0.70-1.20 [facility] Comment on above: Result Comment: Canc elled via OM: Order cancelled - Patient discharged Performed By: #### L 500.2500, L100.0100 #### [facility] [address] [place], [address] eGFR Normal >60 [facility] Comment on above: Result Comment: Canc elled via OM: Order cancelled - Patient discharged Performed By: #### L 500.2500, L100.0100 #### [facility] [address] [place], [address] GAP Normal 5-15 [facility] Comment on above: Result Comment: Canc elled via OM: Order cancelled - Patient discharged Performed By: #### L 500.2500, L100.0100 #### [facility] [address] [place], [address] GLU Normal 70-99 [facility] Comment on above: Result Comment: Canc elled via OM: Order cancelled - Patient discharged Performed By: #### L 500.2500, L100.0100 #### [facility] [address] [place], [address] Potassium Normal 3.3-5.1 [facility] Comment on above: Result Comment: Canc elled via OM: Order cancelled - Patient discharged Performed By: #### L 500.2500, L100.0100 #### [facility] [address] [place], [address] Basic Metabolic Profile (BMP) Normal 133-145 [facility] Comment on above: Result Comment: Canc elled via OM: Order cancelled - Patient discharged Performed By: #### L 500.2500, L100.0100 #### [facility] [address] [place], [address] CBC W/Diff, Automatedon 08- Absolute Neut Normal 2.0-7.7 [facility] Comment on above: Result Comment: Canc elled via OM: Order cancelled - Patient discharged Performed By: #### L 500.2500, L100.0100 #### [facility] [address] [place], [address] HCT Normal 37-47 [facility] Comment on above: Result Comment: Canc elled via OM: Order cancelled - Patient discharged Performed By: #### L 500.2500, L100.0100 #### [facility] [address] [place], [address] HGB Normal 12.0-15.0 [facility] Comment on above: Result Comment: Canc elled via OM: Order cancelled - Patient discharged Performed By: #### L 500.2500, L100.0100 #### [facility] [address] [place], [address] MCH Normal 27.0-32.0 [facility] Comment on above: Result Comment: Canc elled via OM: Order cancelled - Patient discharged Performed By: #### L 500.2500, L100.0100 #### [facility] [address] [place], [address] MCHC Normal 32-36 [facility] Comment on above: Result Comment: Canc elled via OM: Order cancelled - Patient discharged Performed By: #### L 500.2500, L100.0100 #### [facility] [address] [place], [address] MCV Normal 81-99 [facility] Comment on above: Result Comment: Canc elled via OM: Order cancelled - Patient discharged Performed By: #### L 500.2500, L100.0100 #### [facility] [address] [place], [address] NEUT% Normal 47-70 [facility] Comment on above: Result Comment: Canc elled via OM: Order cancelled - Patient discharged Performed By: #### L 500.2500, L100.0100 #### [facility] [address] [place], [address] PLT Normal 150-450 [facility] Comment on above: Result Comment: Canc elled via OM: Order cancelled - Patient discharged Performed By: #### L 500.2500, L100.0100 #### [facility] [address] [place], [address] RBC Normal 4.2-5.4 [facility] Comment on above: Result Comment: Canc elled via OM: Order cancelled - Patient discharged Performed By: #### L 500.2500, L100.0100 #### [facility] [address] [place], [address] RDW CV Normal 11.6-14.6 [facility] Comment on above: Result Comment: Canc elled via OM: Order cancelled - Patient discharged Performed By: #### L 500.2500, L100.0100 #### [facility] [address] [place], [address] RDW SD Normal 35.1-43.9 [facility] Comment on above: Result Comment: Canc elled via OM: Order cancelled - Patient discharged Performed By: #### L 500.2500, L100.0100 #### [facility] [address] [place], [address] WBC Normal 4.4-11.0 [facility] Comment on above: Result Comment: Canc elled via OM: Order cancelled - Patient discharged Performed By: #### L 500.2500, L100.0100 #### [facility] [address] [place], [address] CNOVon 02-11-2025 CNOV Office Visit (WOTIMMY) WINSTON OHARA ([id number]) 1950 F NFR Date Time Provider Department 02/11/25 4:30 PM HATTIE GARCIA During your visit today, we recorded the following information about you: Temperature Pulse Respiration Blood pressure 100 degrees 60/minute 18/minute 130/70 Weight 71.1 kg Hattie Garcia APRN.[employer] 02/11/2025 5:05 PM Signed R.I.C.E. The general care of your injury includes the following: Resting, Icing, Compressing and Elevating the injured area. Remember this as RICE. REST: Limit the use of the injured [...] as with a splint, cast or an kim bandage. Compression decreases swelling and improves comfort. [...] on pillows when lying down. Hattie Garcia APRN.CNP 02/11/2025 5:21 PM Signed [facility] [...] bacitracin and soft sleeve then wrapped with KIM lightly to compress. Education given with marking of wound, if any extension beyond the border marked occurs, she is to call PCP or GO TO ED. Winston Verbalized understanding and agreement with plan of care (more content not included)... Normal [facility] Absolute lymphocyte countOrd ered By: Roxana Valerio on 02-10-2025 Lymphocytes Auto (Unsp spec) [#/Vol] 1.40 10*3/uL 0.83-4.51 [facility] Absolute neutrophil countOrd ered By: Roxana Moremary on 02-10-2025 Neutrophils (Bld) [#/Vol] 6.5 10*3/uL 2.0-7.7 [facility] Anion gap in Serum or Plasma Ordered By: Roxanaingrid Valerio on 02-10-2025 Anion gap [Moles/Vol] 11 mmol/L 5-15 [facility] Automated lymphocyte count a s percentage of total leukocytesOrdered By: Roxana Moremary on 02-10-2025 Lymphocytes/100 WBC Auto (Unsp spec) 15.7 % Low 19-41 [facility] BUN/creatinine ratioOrdered By: Roxanaingrid Valerio on 02-10-2025 Urea nitrogen/Creatinine [Mass ratio] 18.1 mg/mg 10- [facility] Basic Metabolic Profile (BMP )on 02-10-2025 BUN/CRE 18.1 RATIO Normal 10- [facility] Comment on above: Performed By: #### L 500.2500 #### [facility] [address] [facility] [address] Calcium [Mass/Vol] 9.2 mg/dL Normal 7.6-11.0 [facility] Comment on above: Performed By: #### L 500.2500 #### [facility] [address] [place], [address] Chloride [Moles/Vol] 103 mmol/L Normal 98-108 [facility] Comment on above: Performed By: #### L 500.2500 #### [facility] [address] [facility] [address] CO2 [Moles/Vol] 24.9 mmol/L Normal 21.0-32.0 [facility] Comment on above: Performed By: #### L 500.2500 #### [facility] [address] [place], [address] Creatinine [Mass/Vol] 0.94 mg/dL Normal 0.70-1.20 [facility] Comment on above: Performed By: #### L 500.2500 #### [facility] [address] [place], [address] ECRCL 52.42 ml/min Normal 50-250 [facility] Comment on above: Performed By: #### L 500.2500 #### [facility] [address] [place], [address] GAP 11 Normal 5-15 [facility] Comment on above: Performed By: #### L 500.2500 #### [facility] [address] [place], [address] GFR/1.73 sq M.predicted among non-blacks MDRD (S/P/Bld) [Vol rate/Area] 64 mL/min/{1.73_m2} Normal >60 [facility] Comment on above: Result Comment: mL/m in/1.73m2 CKD-EPI Creatinine Equation (2020) Performed By: #### L 500.2500 #### [facility] [address] [place], [address] Glucose [Mass/Vol] 96 mg/dL Normal 70-99 [facility] Comment on above: Performed By: #### L 500.2500 #### [facility] [address] [place], [address] Potassium [Moles/Vol] 3.8 mmol/L Normal 3.3-5.1 [facility] Comment on above: Performed By: #### L 500.2500 #### [facility] [address] [place], [address] Sodium [Moles/Vol] 139 mmol/L Normal 133-145 [facility] Comment on above: Performed By: #### L 500.2500 #### [facility] [address] [place], [address] Urea nitrogen [Mass/Vol] 17 mg/dL Normal 4-19 [facility] Comment on above: Performed By: #### L 500.2500 #### [facility] [address] [place], [address] Basophil percentageOrdered B y: Roxana Valerio on 02-10-2025 Basophils/100 WBC (Bld) 0.6 % 0-1 [facility] CBC W/Diff, Automatedon 01-31 Absolute Lymph 1.40 X10 3/uL Normal 0.83-4.51 [facility] Comment on above: Performed By: #### L 500.2500 #### [facility] [address] [place], [address] Absolute Neut 6.5 X10 3/uL Normal 2.0-7.7 [facility] Comment on above: Performed By: #### L 500.2500 #### [facility] [address] [place], [address] Basophils/100 WBC (Bld) 0.6 % Normal 0-1 [facility] Comment on above: Performed By: #### L 500.2500 #### [facility] [address] [place], [address] Eosinophils/100 WBC (Bld) 0.9 % Normal 0-5 [facility] Comment on above: Performed By: #### L 500.2500 #### [facility] [address] [place], [address] Erythrocyte distribution width (RBC) [Ratio] 14.4 % Normal 11.6-14.6 [facility] Comment on above: Performed By: #### L 500.2500 #### [facility] [address] [place], [address] Hematocrit (Bld) [Volume fraction] 37.4 % Normal 37-47 [facility] Comment on above: Performed By: #### L 500.2500 #### [facility] [address] [place], [address] Hemoglobin (Bld) [Mass/Vol] 12.2 g/dL Normal 12.0-15.0 [facility] Comment on above: Performed By: #### L 500.2500 #### [facility] [address] [place], [address] IG% 0.400 Normal 0.0-0.9 [facility] Comment on above: Result Comment: IG% - Immature Granulocytes (promyelocytes, myelocytes and metamyelocytes) > 1% indicates that a LEFT SHIFT is Present. Performed By: #### L 500.2500 #### [facility] [address] [place], [address] Lymphocytes/100 WBC (Bld) 15.7 % Low 19-41 [facility] Comment on above: Performed By: #### L 500.2500 #### [facility] [address] [place], [address] MCH (RBC) [Entitic mass] 30.5 pg Normal 27.0-32.0 [facility] Comment on above: Performed By: #### L 500.2500 #### [facility] [address] [place], [address] MCHC (RBC) [Mass/Vol] 32.6 g/dL Normal 32-36 [facility] Comment on above: Performed By: #### L 500.2500 #### [facility] [address] [place], [address] MCV (RBC) [Entitic vol] 93.5 fL Normal 81-99 [facility] Comment on above: Performed By: #### L 500.2500 #### [facility] [address] [place], [address] Monocytes/100 WBC (Bld) 9.0 % Normal 0-10 [facility] Comment on above: Performed By: #### L 500.2500 #### [facility] [facility] [address] [place], [address] Neutrophils/100 WBC (Bld) 73.4 % High 47-70 [facility] Comment on above: Performed By: #### L 500.2500 #### [facility] [address] [place], [address] Nucleated RBC (Bld) [#/Vol] 0 10*3/uL Normal 0-5 [facility] Comment on above: Performed By: #### L 500.2500 #### [facility] [address] [place], [address] Platelet mean volume (Bld) [Entitic vol] 10.0 fL Normal 6.2-12.0 [facility] Comment on above: Performed By: #### L 500.2500 #### [facility] [address] [place], [address] Platelets (Bld) [#/Vol] 181 10*3/uL Normal 150-450 [facility] Comment on above: Performed By: #### L 500.2500 #### [facility] [address] [place], [address] RBC (Bld) [#/Vol] 4.00 10*6/uL Low 4.2-5.4 [facility] Comment on above: Performed By: #### L 500.2500 #### [facility] [address] [place], [address] RDW SD 48.6 fl High 35.1-43.9 [facility] Comment on above: Performed By: #### L 500.2500 #### [facility] [address] [place], [address] WBC (Bld) [#/Vol] 8.9 10*3/uL Normal 4.4-11.0 [facility] Comment on above: Performed By: #### L 500.2500 #### [facility] [address] [place], [address] Carbon dioxide, total [Moles /volume] in Central venous bloodOrdered By: Roxana Valerio on 02-10-2025 CO2 [Moles/Vol] 24.9 mmol/L 21.0-32.0 [facility] Chloride assayOrdered By: Paola Valerio on 02-10-2025 Chloride [Moles/Vol] 103 mmol/L 98-108 [facility] Discharge Instructionon 01-31 Discharge Instruction [facility] Medical Records Department [address] [place] [address] Instructions for Home/Discharge Instructions 02/10/25 1500 MR#: [id number] Acct: [id number] Name: WINSTON OHARA Rep #: [id number] : 1950 74 From: Roxana Valerio MD PCP: Dr. Liliam Alaniz MD Status:ADM IN Discharge Instructions DC O2, CPAP, BIPAP needs Home O2 Discharge instructions: No Dressing / Incision Discharge Activity: Return to Normal Activity Weight Bearing Status: Weight bearing as tolerated Dressing / Incision Call your doctor if you observe: Fever of 101 or Higher, Shortness of breath, Dizziness, Swelling in the ankles and Chest pain Follow Up Care Test Results: Test results from this visit will be discussed in further detail at your follow-up appointment, if applicable. Discharge Plan Admission Admit Date/Time: 02/07/25 16:47 Primary Reason for Your Visit: afib with RVR Attending Provider: Roxana Valerio Primary Care Provider: Liliam Alaniz Consulting Providers: Enrico Rendon; George Nichole Instructions Patient Instructions: AFib Dc, Cardioversion Dc Discharge Orders/Prescriptions Prescriptions: New metoprolol tartrate 50 mg tablet 50 mg PO BID Qty: 60 2RF amiodarone 200 mg tablet 200 mg PO DAILY Qty: 30 2RF Continued Pepto-Bismol 262 mg tablet 2 tablet PO Q30-60M PRN (Reason: Diarrhea) Rx Instructions: do not exceed 16 tabs per 24 hrs acetaminophen 500 mg tablet 1,000 mg PO Q8 PRN (Reason: pain) Rx Instructions: Do not take more than 3000 mg Tylenol in a 24-hour period. rivaroxaban 20 mg tablet 20 mg PO DAILY Qty: 90 3RF Patient Comments: LAST DOSE 01/28/21 zolpidem 5 mg tablet 5 mg PO QHS fluticasone propionate 9.9 ML spray,suspension 15.8 ml NS DAILY PRN (Reason: ALLERGIES) cholecalciferol (vitamin D3) [Vitamin D3] 25 mcg (1,000 unit) Tablet 50 mcg PO DAILY sertraline 25 mg tablet 25 mg PO DAILY Patient Comments: take 1 tablet by mouth once daily furosemide 40 mg tablet 40 mg PO DAILY PRN (Reason: edema) Qty: 30 11RF Discontinued metoprolol succinate 50 mg tablet extended release 24 hr 50 mg PO QDAY Qty: 90 3RF sotalol 80 mg tablet 80 mg PO BID Qty: 180 3RF Referrals / Follow Up: Sterling Thapa MD [Med Staff - Active Staff] - Within 2 Weeks Liliam Alaniz MD [Primary Care Provider] - Within 1 Week Disposition Disposition (needs filled in before D/C Order can be placed): Home, Self Care 02/10/25 1500 Roxana Valerio MD CC: Dr. George Nichole DO; Dr. Enrico Rendon MD; Dr. Liliam Alaniz MD Signed Normal [facility] Eosinophil percentageOrdered By: Roxana Valerio on 02-10-2025 Eosinophils/100 WBC (Bld) 0.9 % 0-5 [facility] Erythrocyte distribution wid th ratioOrdered By: Roxana Valerio on 02-10-2025 Erythrocyte distribution width (RBC) [Ratio] 14.4 % 11.6-14.6 [facility] Erythrocyte distribution wid th standard deviationOrdered By: Roxana Valerio on 02-10-2025 Erythrocyte distribution width (RBC) [Ratio] 48.6 fl High 35.1-43.9 [facility] Glomerular filtration rate ( GFR) estimation/1.73 sq m using serum, plasma, or whole bOrdered By: Roxana Valerio on 02-10-2025 GFR/1.73 sq M.predicted among non-blacks MDRD (S/P/Bld) [Vol rate/Area] 64 mL/min/{1.73_m2} >60 [facility] Comment on above: mL/min/1.73m2 CKD-EP I Creatinine Equation (2020) Hematocrit Auto (Bld) [Volum e fraction]Ordered By: Roxana Valerio on 02-10-2025 Hematocrit (Bld) [Volume fraction] 37.4 % 37-47 [facility] Hemoglobin measurementOrdere d By: Roxana Valerio on 02-10-2025 Hemoglobin (Bld) [Mass/Vol] 12.2 g/dL 12.0-15.0 [facility] Immature granulocytes/100 WB C Auto (Bld)Ordered By: Roxana Valerio on 02-10-2025 Immature granulocytes/100 WBC (Bld) 0.400 % 0.0-0.9 [facility] Comment on above: IG% - Immature Granu locytes (promyelocytes, myelocytes and metamyelocytes) > 1% indicates that a LEFT SHIFT is Present. MCV (mean corpuscular volume ) determinationOrdered By: Roxana Valerio on 02-10-2025 MCV (RBC) [Entitic vol] 93.5 fL 81-99 [facility] Mean corpuscular hemoglobin (MCH) determinationOrdered By: Roxana Valerio on 02-10-2025 MCH (RBC) [Entitic mass] 30.5 pg 27.0-32.0 [facility] Mean corpuscular hemoglobin concentration (MCHC) determinationOrdered By: Roxana Valerio 02-10-2025 MCHC (RBC) [Mass/Vol] 32.6 g/dL 32-36 [facility] Mean platelet volume determi nationOrdered By: Roxana Valerio on 02-10-2025 Platelet mean volume (Bld) [Entitic vol] 10.0 fL 6.2-12.0 [facility] Monocyte percentageOrdered B y: Roxana Valerio on 02-10-2025 Monocytes/100 WBC (Bld) 9.0 % 0-10 [facility] Neutrophil percentageOrdered By: Roxana Valerio on 02-10-2025 Neutrophils/100 WBC (Bld) 73.4 % High 47-70 [facility] [facility] Nucleated red blood cell per centageOrdered By: Roxana Valerio on 02-10-2025 Nucleated RBC/100 WBC (Bld) [Ratio] 0 % 0-5 [facility] Platelet countOrdered By: Paola Valerio on 02-10-2025 Platelets (Bld) [#/Vol] 181 10*3/uL 150-450 [facility] Potassium measurement (mass/ volume)Ordered By: Roxana Valerio on 02-10-2025 Potassium (Unsp spec) [Mass/Vol] 3.8 mmol/L 3.3-5.1 [facility] Procedure Reporton 5 Procedure Report [facility] Medical Records Department [address] [place] [address] Procedure Report 02/10/25 1103 MR#: [id number] Acct: [id number] Name: WINSTON OHARA Rep #: [id number] : 1950 74 From: Gage Zuñiga DO PCP: Dr. Liliam Alaniz MD Status:ADM IN Location: [facility] [id number] Procedures Pulmonary Pulmonary Procedures /Diagnostic Testin Con Sedation Non-invasive Procedural Procedure Information Date of Procedure: 02/10/25 Description of procedure: CONSCIOUS SEDATION REPORT DATE OF SERVICE: February 10, 2025 BRIEF HISTORY OF PRESENT ILLNESS: The patient is a 74-year-old female currently admitted to the hospital with atrial fibrillation with RVR. The patient did undergo a prior cardioversion in December 2024, during which time, propofol was utilized to achieve an appropriate level of sedation. The patient denied any prior anesthetic complications. She is systemically anticoagulated on Xarelto. Her last surface echocardiogram demonstrated an ejection fraction of 35%. PHYSICAL EXAMINATION: VITAL SIGNS: Reviewed and were acceptable. GENERAL: The patient is a female, in no apparent distress, speaking in full sentences. HEENT: Normocephalic, atraumatic. Mucous membranes are moist and pink. Good mouth opening noted. Trachea is midline. Good neck mobility. CHEST: S1, S2 irregularly irregular. No murmurs, rubs or gallops were noted. LUNGS: Clear to auscultation bilaterally without appreciable wheezes, rales or rhonchi. ABDOMEN: Soft, nontender, nondistended. Positive bowel sounds. EXTREMITIES: There is no clubbing, cyanosis or edema. ASA Class: II DESCRIPTION OF PROCEDURE: After confirmation of informed consent, the patient's anesthesia plan was reviewed in detail. Etomidate was chosen. Risks and benefits were reviewed and the patient agreed to proceed. At 1025, the patient was given 6 mg of etomidate. The patient achieved an appropriate level of sedation and was given a 200 joule synchronized cardioversion by Dr. Thapa at the bedside. This was successful in achieving normal sinus rhythm. The patient was monitored until 1038, at which time she reached her baseline mental status and function. The patient tolerated the procedure well. COMPLICATIONS: None ESTIMATED BLOOD LOSS: None RECOMMENDATIONS: Okay to recover in usual fashion. 02/10/25 1105 Cosigner Signature (if applicable): CC: Dr. Gage Zuñiga DO; Dr. Liliam Alaniz MD Signed Normal [facility] Procedure Report [facility] Medical Records Department [address] [place] [address] Procedure Report 02/10/25 1030 MR#: [id number] Acct: [id number] Name: WINSTON OHARA Rep #: [id number] : 1950 74 From: Sterling Thapa MD PCP: Dr. Liliam Alaniz MD Status:ADM IN Location: [place] [id number] Non-invasive Procedural Procedure Information Date of Procedure: 02/10/25 Pre-Procedure Diagnosis: Atrial fibrillation Post-Procedure Diagnosis: Same Procedure Performed:: DC cardioversion inseam leveler: No Procedure Time Out: 10:14 Procedure Start Time: 10:16 Procedure Stop Time: 10:30 Special Medications: Intravenous etomidate 6 mg Description of procedure: Patient was brought to the cardiac catheterization lab in the postabsorptive nonsedated state. Patient was seen by Dr. Zuñiga of the critical care division. Anterior-posterior pads were applied. Patient was administered 6 mg of intravenous etomidate. 200 J of synchronized DC cardioversion biphasic energy were applied with prompt reversal to sinus rhythm. Premature atrial complexes were noted. Procedure findings: Successful DC cardioversion from atrial fibrillation to sinus rhythm. Plan to be to continue intravenous amiodarone temporarily Consider switching over to oral amiodarone and metoprolol. 02/10/25 1036 Cosigner Signature (if applicable): CC: Dr. Sterling Thapa MD; Dr. Liliam Alaniz MD Signed Normal [facility] RBC Auto (Bld) [#/Vol]Ordere d By: Roxana Iman on 02-10-2025 RBC (Bld) [#/Vol] 4.00 10*6/uL Low 4.2-5.4 [facility] Serum creatinine measurement (mass/volume)Ordered By: Roxana Valerio on 02-10-2025 Creatinine [Mass/Vol] 0.94 mg/dL 0.70-1.20 [facility] Serum glucose measurement (m ass/volume)Ordered By: Roxana Valerio on 02-10-2025 Glucose [Mass/Vol] 96 mg/dL 70-99 [facility] Serum or plasma calcium hay urement (mass/volume)Ordered By: Roxana Valerio on 02-10-2025 Calcium [Mass/Vol] 9.2 mg/dL 7.6-11.0 [facility] Serum or plasma urea nitroge n measurement (mass/volume)Ordered By: Roxana Valerio on 02-10-2025 Urea nitrogen [Mass/Vol] 17 mg/dL 4-19 [facility] Sodium levelOrdered By: Roxana Valerio on 02-10-2025 Sodium [Moles/Vol] 139 mmol/L 133-145 [facility] White blood cell (WBC) count Ordered By: Roxana Valerio on 02-10-2025 WBC (Bld) [#/Vol] 8.9 10*3/uL 4.4-11.0 [facility] Basic Metabolic Profile (BMP )on 02-09-2025 BUN/CRE 21.6 RATIO High 10-20 [facility] Comment on above: Performed By: #### L 500.2500 #### [facility] [address] [place], [address] Calcium [Mass/Vol] 9.4 mg/dL Normal 7.6-11.0 [facility] Comment on above: Performed By: #### L 500.2500 #### [facility] [address] [place], [address] Chloride [Moles/Vol] 102 mmol/L Normal 98-108 [facility] Comment on above: Performed By: #### L 500.2500 #### [facility] [address] [place], [address] CO2 [Moles/Vol] 21.9 mmol/L Normal 21.0-32.0 [facility] Comment on above: Performed By: #### L 500.2500 #### [facility] [address] [place], [address] Creatinine [Mass/Vol] 0.92 mg/dL Normal 0.70-1.20 [facility] Comment on above: Performed By: #### L 500.2500 #### [facility] [address] [place], [address] ECRCL 53.56 ml/min Normal 50-250 [facility] Comment on above: Performed By: #### L 500.2500 #### [facility] [address] [place], [address] GAP 13 Normal 5-15 [facility] Comment on above: Performed By: #### L 500.2500 #### [facility] [address] [place], [address] GFR/1.73 sq M.predicted among non-blacks MDRD (S/P/Bld) [Vol rate/Area] 67 mL/min/{1.73_m2} Normal >60 [facility] Comment on above: Result Comment: mL/m in/1.73m2 CKD-EPI Creatinine Equation (2020) Performed By: #### L 500.2500 #### [facility] [address] [place], [address] Glucose [Mass/Vol] 120 mg/dL High 70-99 [facility] Comment on above: Performed By: #### L 500.2500 #### [facility] [address] [place], [address] Potassium [Moles/Vol] 3.9 mmol/L Normal 3.3-5.1 [facility] Comment on above: Performed By: #### L 500.2500 #### [facility] [address] [place], [address] Sodium [Moles/Vol] 138 mmol/L Normal 133-145 [facility] Comment on above: Performed By: #### L 500.2500 #### [facility] [address] [place], [address] Urea nitrogen [Mass/Vol] 20 mg/dL High 4-19 [facility] Comment on above: Performed By: #### L 500.2500 #### [facility] [address] [place], [address] CBC W/Diff, Automatedon 08- 0-2024 Absolute Lymph 0.89 X10 3/uL Normal 0.83-4.51 [facility] Comment on above: Performed By: #### L 500.2500 #### [facility] [address] [place], [address] Absolute Neut 7.7 X10 3/uL Normal 2.0-7.7 [facility] Comment on above: Performed By: #### L 500.2500 #### [facility] [address] [place], [address] Basophils/100 WBC (Bld) 0.2 % Normal 0-1 [facility] Comment on above: Performed By: #### L 500.2500 #### [facility] [address] [place], [address] Eosinophils/100 WBC (Bld) 0.4 % Normal 0-5 [facility] Comment on above: Performed By: #### L 500.2500 #### [facility] [address] [place], [address] Erythrocyte distribution width (RBC) [Ratio] 14.1 % Normal 11.6-14.6 [facility] Comment on above: Performed By: #### L 500.2500 #### [facility] [address] [place], [address] Hematocrit (Bld) [Volume fraction] 39.1 % Normal 37-47 [facility] Comment on above: Performed By: #### L 500.2500 #### [facility] [address] [place], [address] Hemoglobin (Bld) [Mass/Vol] 12.8 g/dL Normal 12.0-15.0 [facility] Comment on above: Performed By: #### L 500.2500 #### [facility] [address] [place], [address] IG% 0.400 Normal 0.0-0.9 [facility] Comment on above: Result Comment: IG% - Immature Granulocytes (promyelocytes, myelocytes and metamyelocytes) > 1% indicates that a LEFT SHIFT is Present. Performed By: #### L 500.2500 #### [facility] [address] [place], [address] Lymphocytes/100 WBC (Bld) 9.6 % Low 19-41 [facility] Comment on above: Performed By: #### L 500.2500 #### [facility] [address] [place], [address] MCH (RBC) [Entitic mass] 30.6 pg Normal 27.0-32.0 [facility] Comment on above: Performed By: #### L 500.2500 #### [facility] [address] [place], [address] MCHC (RBC) [Mass/Vol] 32.7 g/dL Normal 32-36 [facility] Comment on above: Performed By: #### L 500.2500 #### [facility] [address] [place], [address] MCV (RBC) [Entitic vol] 93.5 fL Normal 81-99 [facility] Comment on above: Performed By: #### L 500.2500 #### [facility] [address] [place], [address] Monocytes/100 WBC (Bld) 6.5 % Normal 0-10 [facility] Comment on above: Performed By: #### L 500.2500 #### [facility] [address] [place], [address] Neutrophils/100 WBC (Bld) 82.9 % High 47-70 [facility] Comment on above: Performed By: #### L 500.2500 #### [facility] [address] [place], [address] Nucleated RBC (Bld) [#/Vol] 0 10*3/uL Normal 0-5 [facility] Comment on above: Performed By: #### L 500.2500 #### [facility] [address] [place], [address] Platelet mean volume (Bld) [Entitic vol] 10.6 fL Normal 6.2-12.0 [facility] Comment on above: Performed By: #### L 500.2500 #### [facility] [address] [place], [address] Platelets (Bld) [#/Vol] 202 10*3/uL Normal 150-450 [facility] Comment on above: Performed By: #### L 500.2500 #### [facility] [address] [place], [address] RBC (Bld) [#/Vol] 4.18 10*6/uL Low 4.2-5.4 [facility] Comment on above: Performed By: #### L 500.2500 #### [facility] [address] [place], [address] RDW SD 47.4 fl High 35.1-43.9 [facility] Comment on above: Performed By: #### L 500.2500 #### [facility] [address] [place], [address] WBC (Bld) [#/Vol] 9.3 10*3/uL Normal 4.4-11.0 [facility] Comment on above: Performed By: #### L 500.2500 #### [facility] [address] [place], [address] Basic Metabolic Profile (BMP )on 02-08-2025 BUN/CRE 23.8 RATIO High 10-20 [facility] Comment on above: Performed By: #### L 100.0100, L500.2500 ####[facility] [address] [place], [address] Calcium [Mass/Vol] 9.2 mg/dL Normal 7.6-11.0 [facility] Comment on above: Performed By: #### L 100.0100, L500.2500 ####[facility] [address] [place], [address] Chloride [Moles/Vol] 102 mmol/L Normal 98-108 [facility] Comment on above: Performed By: #### L 100.0100, L500.2500 ####[facility] [address] [place], [address] CO2 [Moles/Vol] 24.8 mmol/L Normal 21.0-32.0 [facility] Comment on above: Performed By: #### L 100.0100, L500.2500 ####[facility] [address] [place], [address] Creatinine [Mass/Vol] 0.94 mg/dL Normal 0.70-1.20 [facility] Comment on above: Performed By: #### L 100.0100, L500.2500 ####[facility] [address] [place], [address] ECRCL 52.42 ml/min Normal 50-250 [facility] Comment on above: Performed By: #### L 100.0100, L500.2500 ####[facility] [address] [place], [address] GAP 11 Normal 5-15 [facility] Comment on above: Performed By: #### L 100.0100, L500.2500 ####[facility] [address] [place], [address] GFR/1.73 sq M.predicted among non-blacks MDRD (S/P/Bld) [Vol rate/Area] 64 mL/min/{1.73_m2} Normal >60 [facility] Comment on above: Result Comment: mL/m in/1.73m2 CKD-EPI Creatinine Equation (2020) Performed By: #### L 100.0100, L500.2500 ####[facility] [address] [place], [address] Glucose [Mass/Vol] 116 mg/dL High 70-99 [facility] Comment on above: Performed By: #### L 100.0100, L500.2500 ####[facility] [address] [place], [address] Potassium [Moles/Vol] 3.9 mmol/L Normal 3.3-5.1 [facility] Comment on above: Performed By: #### L 100.0100, L500.2500 ####[facility] [address] [place], [address] Sodium [Moles/Vol] 138 mmol/L Normal 133-145 [facility] Comment on above: Performed By: #### L 100.0100, L500.2500 ####[facility] [address] [place], [address] Urea nitrogen [Mass/Vol] 22 mg/dL High 4-19 [facility] Comment on above: Performed By: #### L 100.0100, L500.2500 ####[facility] [address] [place], [address] CBC W/Diff, Automatedon 08-0 9-2025 Absolute Lymph 0.94 X10 3/uL Normal 0.83-4.51 [facility] Comment on above: Performed By: #### L 100.0100, L500.2500 #### [facility] [address] [place], [address] Absolute Neut 6.0 X10 3/uL Normal 2.0-7.7 [facility] Comment on above: Performed By: #### L 100.0100, L500.2500 #### [facility] [address] [place], [address] Basophils/100 WBC (Bld) 0.3 % Normal 0-1 [facility] Comment on above: Performed By: #### L 100.0100, L500.2500 #### [facility] [address] [place], [address] Eosinophils/100 WBC (Bld) 1.2 % Normal 0-5 [facility] Comment on above: Performed By: #### L 100.0100, L500.2500 #### [facility] [address] [place], [address] Erythrocyte distribution width (RBC) [Ratio] 14.1 % Normal 11.6-14.6 [facility] Comment on above: Performed By: #### L 100.0100, L500.2500 #### [facility] [address] [place], [address] Hematocrit (Bld) [Volume fraction] 35.8 % Low 37-47 [facility] Comment on above: Performed By: #### L 100.0100, L500.2500 #### [facility] [address] [place], [address] Hemoglobin (Bld) [Mass/Vol] 11.7 g/dL Low 12.0-15.0 [facility] Comment on above: Performed By: #### L 100.0100, L500.2500 #### [facility] [address] [place], [address] IG% 0.300 Normal 0.0-0.9 [facility] Comment on above: Result Comment: IG% - Immature Granulocytes (promyelocytes, myelocytes and metamyelocytes) > 1% indicates that a LEFT SHIFT is Present. Performed By: #### L 100.0100, L500.2500 #### [facility] [address] [place], [address] Lymphocytes/100 WBC (Bld) 12.5 % Low 19-41 [facility] Comment on above: Performed By: #### L 100.0100, L500.2500 #### [facility] [address] [place], [address] MCH (RBC) [Entitic mass] 30.4 pg Normal 27.0-32.0 [facility] Comment on above: Performed By: #### L 100.0100, L500.2500 #### [facility] [facility] [address] [place], [address] MCHC (RBC) [Mass/Vol] 32.7 g/dL Normal 32-36 [facility] Comment on above: Performed By: #### L 100.0100, L500.2500 #### [facility] [address] [place], [address] MCV (RBC) [Entitic vol] 93.0 fL Normal 81-99 [facility] Comment on above: Performed By: #### L 100.0100, L500.2500 #### [facility] [address] [place], [address] Monocytes/100 WBC (Bld) 6.2 % Normal 0-10 [facility] Comment on above: Performed By: #### L 100.0100, L500.2500 #### [facility] [address] [place], [address] Neutrophils/100 WBC (Bld) 79.5 % High 47-70 [facility] Comment on above: Performed By: #### L 100.0100, L500.2500 #### [facility] [address] [place], [address] Nucleated RBC (Bld) [#/Vol] 0 10*3/uL Normal 0-5 [facility] Comment on above: Performed By: #### L 100.0100, L500.2500 #### [facility] [address] [place], [address] Platelet mean volume (Bld) [Entitic vol] 10.1 fL Normal 6.2-12.0 [facility] Comment on above: Performed By: #### L 100.0100, L500.2500 #### [facility] [address] [place], [address] Platelets (Bld) [#/Vol] 183 10*3/uL Normal 150-450 [facility] Comment on above: Performed By: #### L 100.0100, L500.2500 #### [facility] [address] [place], [address] RBC (Bld) [#/Vol] 3.85 10*6/uL Low 4.2-5.4 [facility] Comment on above: Performed By: #### L 100.0100, L500.2500 #### [facility] [address] [place], [address] RDW SD 47.1 fl High 35.1-43.9 [facility] Comment on above: Performed By: #### L 100.0100, L500.2500 #### [facility] [address] [place], [address] WBC (Bld) [#/Vol] 7.5 10*3/uL Normal 4.4-11.0 [facility] Comment on above: Performed By: #### L 100.0100, L500.2500 #### [facility] [address] [place], [address] Echocardiogram study reportO rdered By: Enrico Rendon on 02-08-2025 Study report [facility] [address] [place] [address] Echo Complete 02/08/25 0944 MR#: [id number] Acct: [id number] Name: WINSTON OHARA Rep #:[id number] : 1950 74 From: Enrico Rendon MD Attending Dr: Dr. Roxana Valerio MD Status: ADM IN Ordering Dr: George Nichole DO Date: Location: [facility] Sex: F C Admitted: 02/07/25 Reason For Study Reason For Study: AFLUTTER Procedure This was a 2D Doppler, Color Flow transthoracic echocardiogram. Exam performed portable in patient room. Left Ventricle Mildly dilated left ventricle. The 3D full volume ejection fraction is 35-40 %. Right Ventricle Normal right ventricle. Normal systolic function. Atria The left atrium is moderately enlarged. The right atrium is moderately enlarged. Mitral Valve The mitral valve is structurally normal. No prolapse or stenosis seen. Mild (1+)mitral valve insufficiency. Tricuspid Valve Normal tricuspid valve. Moderate (2+) tricuspid valve insufficiency. Aortic Valve Trisinus/trileaflet aortic valve. Pulmonic Valve The pulmonic valve is not well visualized. Great Vessels The aortic root is not well visualized. Pericardium/Pleural No pericardial effusion. MMode/2D Measurements & Calculations LVIDd: 4.4 cm IVSd: 0.86 cm LVOT diam: 2.0 cm LVIDs: 3.3 cm LVPWd: 0.88 cm LVOT area: 3.1 cm2 FS: 24.7 % LAV(MOD-bp): 93.2 ml LVAd ap4: 21.6 cm2 SV(MOD-sp4): 19.9 ml LAV(MOD-bp) Indexed: 52.8 ml/m2 LVLd ap4: 6.3 cm SI(MOD-sp4): 11.3 ml/m2 LAV(MOD-sp2): 89.5 ml EDV(MOD-sp4): 62.2 ml LAV(MOD-sp4): 84.2 ml EDV(sp4-el): 62.3 ml LVAs ap4: 16.7 cm2 LVLs ap4: 5.8 cm ESV(MOD-sp4): 42.3 ml ESV(sp4-el): 40.8 ml EF(MOD-sp4): 32.0 % EF(sp4-el): 34.4 % SV(sp4-el): 21.5 ml LA A4 area: 27.1 cm2 LA dimension(2D): 4.0 cm RA A4 area: 20.6 cm2 Doppler Measurements & Calculations MV E max christiano: 70.6 cm/sec Ao V2 max: 74.8 cm/sec LV V1 max: 66.5 cm/sec Ao max P.2 mmHg LV V1 max P.8 mmHg Ao V2 mean: 59.7 cm/sec LV V1 mean P.2 mmHg Ao mean P.5 mmHg LV V1 mean: 53.7 cm/sec Ao V2 VTI: 10.8 cm LV V1 VTI: 9.7 cm AV (velocity ratio): 0.89 BRUNO(I,D): 2.8 cm2 BRUNO(V,D): 2.7 cm2 SV(LVOT): 29.8 ml PA V2 max: 94.4 cm/sec TR max christiano: 327.9 cm/sec PA V2 mean: 66.4 cm/sec TR max P.0 mmHg ECHO/Echo Complete Interpretation Summary The 3D full volume ejection fraction is 35-40 %. Ordering Physician: George Nichole Referring Physician: SHOAIB PIZANO Performed By: Cindy Simon RCS 02/08/25 5339 Date _ Enrico Rendon MD CC: Dr. George Nichole DO; Dr. Liliam Alaniz MD; Dr. Roxana Valerio MD ~ Date Dictated: 02/08/25 0944 Date Transcribed: 02/08/25 1349 Manager Multimedia: Signed [facility] Work Phone: 12 Lead EKGon 02-07-2025 12 Lead EKG [facility] Cardiovascular Services [address] [place] [address] 12 Lead EKG 02/10/25 1043 MR#: [id number] Acct: [id number] Name: WINSTON OHARA Rep #: [id number] : 1950 74 From: Sterling Thapa MD Attending Dr: Dr. Roxana Valerio MD Status: DI S IN Ordering Dr: Denisha Chapa Date: 02/07/25 Location: U Sex: F C Admitted: 02/07/25 Test Reason : post dccv Blood Pressure : */* mmHG Vent. Rate : 44 BPM Atrial Rate : 44 BPM P-R Int : 160 ms QRS Dur : 76 ms QT Int : 500 ms P-R-T Axes : 42 68 89 degrees QTcB Int : 427 ms Marked sinus bradycardia with marked sinus arrhythmia Nonspecific ST abnormality Abnormal ECG When compared with ECG of 07-Feb-2025 14:20, MANUAL COMPARISON REQUIRED DATA IS UNCONFIRMED Confirmed by ALANIS KNIGHT, STERLING ([id number]), newspaper or periodical editor KAEL MENDEZ ([id number]) on 02/11/2025 7:55:05 AM Referred By: Confirmed By: STERLING THAPA MD 02/11/25 0755 Date Sterling Thapa MD CC: Dr. Liliam Alaniz MD; Dr. Roxana Valerio MD; CHANCE English Signed Normal [facility] Absolute lymphocyte countOrd ered By: Denisha Chapa on 02-07-2025 Lymphocytes Auto (Unsp spec) [#/Vol] 1.16 10*3/uL 0.83-4.51 [facility] Absolute neutrophil countOrd ered By: Denisha Chapa on 02-07-2025 Neutrophils (Bld) [#/Vol] 5.4 10*3/uL 2.0-7.7 [facility] Anion gap in Serum or Plasma Ordered By: Denisha hCapa on 02-07-2025 Anion gap [Moles/Vol] 13 mmol/L 5-15 [facility] Automated lymphocyte count a s percentage of total leukocytesOrdered By: Denisha Chapa on 02-07-2025 Lymphocytes/100 WBC Auto (Unsp spec) 15.7 % Low 19-41 [facility] BUN/creatinine ratioOrdered By: Denisha Chapa on 02-07-2025 Urea nitrogen/Creatinine [Mass ratio] 27.6 mg/mg High 10-20 [facility] Basic Metabolic Profile (BMP )on 02-07-2025 BUN/CRE 27.6 RATIO High 10-20 [facility] Comment on above: Performed By: #### L 100.0100, L501.5200, L501.4021, L501.9520, L500.2500 ####[facility] [address] [place], [address] Calcium [Mass/Vol] 9.6 mg/dL Normal 7.6-11.0 [facility] Comment on above: Performed By: #### L 100.0100, L501.5200, L501.4021, L501.9520, L500.2500 ####[facility] [address] [place], [address] Chloride [Moles/Vol] 101 mmol/L Normal 98-108 [facility] Comment on above: Performed By: #### L 100.0100, L501.5200, L501.4021, L501.9520, L500.2500 ####[facility] [address] [place], [address] CO2 [Moles/Vol] 23.2 mmol/L Normal 21.0-32.0 [facility] Comment on above: Performed By: #### L 100.0100, L501.5200, L501.4021, L501.9520, L500.2500 ####[facility] [address] [place], [address] Creatinine [Mass/Vol] 1.03 mg/dL Normal 0.70-1.20 [facility] Comment on above: Performed By: #### L 100.0100, L501.5200, L501.4021, L501.9520, L500.2500 ####[facility] [address] [place], [address] ECRCL 48.28 ml/min Low 50-250 [facility] Comment on above: Performed By: #### L 100.0100, L501.5200, L501.4021, L501.9520, L500.2500 ####[facility] [address] [place], [address] GAP 13 Normal 5-15 [facility] Comment on above: Performed By: #### L 100.0100, L501.5200, L501.4021, L501.9520, L500.2500 ####[facility] [address] [place], [address] GFR/1.73 sq M.predicted among non-blacks MDRD (S/P/Bld) [Vol rate/Area] 58 mL/min/{1.73_m2} Low >60 [facility] Comment on above: Result Comment: mL/m in/1.73m2 CKD-EPI Creatinine Equation (2020) Performed By: #### L 100.0100, L501.5200, L501.4021, L501.9520, L500.2500 ####[facility] [address] [place], [address] Glucose [Mass/Vol] 147 mg/dL High 70-99 [facility] Comment on above: Performed By: #### L 100.0100, L501.5200, L501.4021, L501.9520, L500.2500 ####[facility] [address] [place], [address] Potassium [Moles/Vol] 3.9 mmol/L Normal 3.3-5.1 [facility] Comment on above: Performed By: #### L 100.0100, L501.5200, L501.4021, L501.9520, L500.2500 ####[facility] [address] [place], [address] Sodium [Moles/Vol] 137 mmol/L Normal 133-145 [facility] Comment on above: Performed By: #### L 100.0100, L501.5200, L501.4021, L501.9520, L500.2500 ####[facility] [address] [place], [address] Urea nitrogen [Mass/Vol] 28 mg/dL High 4-19 [facility] Comment on above: Performed By: #### L 100.0100, L501.5200, L501.4021, L501.9520, L500.2500 ####[facility] [address] [place], [address] Basophil percentageOrdered B y: Denisha Chapa on 02-07-2025 Basophils/100 WBC (Bld) 0.5 % 0-1 [facility] CBC W/Diff, Automatedon Absolute Lymph 1.16 X10 3/uL Normal 0.83-4.51 [facility] Comment on above: Performed By: #### L 100.0100, L501.5200, L501.4021, L501.9520, L500.2500 ####[facility] [address] [place], [address] Absolute Neut 5.4 X10 3/uL Normal 2.0-7.7 [facility] Comment on above: Performed By: #### L 100.0100, L501.5200, L501.4021, L501.9520, L500.2500 ####[facility] [address] [place], [address] Basophils/100 WBC (Bld) 0.5 % Normal 0-1 [facility] Comment on above: Performed By: #### L 100.0100, L501.5200, L501.4021, L501.9520, L500.2500 ####[facility] [address] [place], [address] Eosinophils/100 WBC (Bld) 1.5 % Normal 0-5 [facility] Comment on above: Performed By: #### L 100.0100, L501.5200, L501.4021, L501.9520, L500.2500 ####[facility] [address] [place], [address] Erythrocyte distribution width (RBC) [Ratio] 14.0 % Normal 11.6-14.6 [facility] Comment on above: Performed By: #### L 100.0100, L501.5200, L501.4021, L501.9520, L500.2500 ####[facility] [address] [place], [address] Hematocrit (Bld) [Volume fraction] 39.4 % Normal 37-47 [facility] Comment on above: Performed By: #### L 100.0100, L501.5200, L501.4021, L501.9520, L500.2500 ####[facility] [address] [place], [address] Hemoglobin (Bld) [Mass/Vol] 13.1 g/dL Normal 12.0-15.0 [facility] Comment on above: Performed By: #### L 100.0100, L501.5200, L501.4021, L501.9520, L500.2500 ####[facility] [address] [place], [address] IG% 0.300 Normal 0.0-0.9 [facility] Comment on above: Result Comment: IG% - Immature Granulocytes (promyelocytes, myelocytes and metamyelocytes) > 1% indicates that a LEFT SHIFT is Present. Performed By: #### L 100.0100, L501.5200, L501.4021, L501.9520, L500.2500 ####[facility] [address] [place], [address] Lymphocytes/100 WBC (Bld) 15.7 % Low 19-41 [facility] Comment on above: Performed By: #### L 100.0100, L501.5200, L501.4021, L501.9520, L500.2500 ####[facility] [address] [place], [address] MCH (RBC) [Entitic mass] 30.8 pg Normal 27.0-32.0 [facility] Comment on above: Performed By: #### L 100.0100, L501.5200, L501.4021, L501.9520, L500.2500 ####[facility] [address] [place], [address] MCHC (RBC) [Mass/Vol] 33.2 g/dL Normal 32-36 [facility] Comment on above: Performed By: #### L 100.0100, L501.5200, L501.4021, L501.9520, L500.2500 ####[facility] [address] [place], [address] MCV (RBC) [Entitic vol] 92.5 fL Normal 81-99 [facility] Comment on above: Performed By: #### L 100.0100, L501.5200, L501.4021, L501.9520, L500.2500 ####[facility] [address] [place], [address] Monocytes/100 WBC (Bld) 8.3 % Normal 0-10 [facility] Comment on above: Performed By: #### L 100.0100, L501.5200, L501.4021, L501.9520, L500.2500 ####[facility] [address] [place], [address] Neutrophils/100 WBC (Bld) 73.7 % High 47-70 [facility] Comment on above: Performed By: #### L 100.0100, L501.5200, L501.4021, L501.9520, L500.2500 ####[facility] [address] [place], [address] Nucleated RBC (Bld) [#/Vol] 0 10*3/uL Normal 0-5 [facility] Comment on above: Performed By: #### L 100.0100, L501.5200, L501.4021, L501.9520, L500.2500 ####[facility] [address] [place], [address] Platelet mean volume (Bld) [Entitic vol] 10.8 fL Normal 6.2-12.0 [facility] Comment on above: Performed By: #### L 100.0100, L501.5200, L501.4021, L501.9520, L500.2500 ####[facility] [address] [place], [address] Platelets (Bld) [#/Vol] 224 10*3/uL Normal 150-450 [facility] Comment on above: Performed By: #### L 100.0100, L501.5200, L501.4021, L501.9520, L500.2500 ####[facility] [address] [place], [address] RBC (Bld) [#/Vol] 4.26 10*6/uL Normal 4.2-5.4 [facility] Comment on above: Performed By: #### L 100.0100, L501.5200, L501.4021, L501.9520, L500.2500 ####[facility] [address] [place], [address] RDW SD 46.4 fl High 35.1-43.9 [facility] Comment on above: Performed By: #### L 100.0100, L501.5200, L501.4021, L501.9520, L500.2500 ####[facility] [address] [place], [address] WBC (Bld) [#/Vol] 7.4 10*3/uL Normal 4.4-11.0 [facility] Comment on above: Performed By: #### L 100.0100, L501.5200, L501.4021, L501.9520, L500.2500 ####[facility] [address] [place], [address] Carbon dioxide, total [Moles /volume] in Central venous bloodOrdered By: Denisha Chapa on 02-07-2025 CO2 [Moles/Vol] 23.2 mmol/L 21.0-32.0 [facility] Chest 1 View (Portable)on Chest 1 View (Portable) [facility] Imaging Services [address] [place] [address] Chest 1 View (Portable) MR#: [id number] Acct: [id number] Name: WINSTON OHARA Rep #: [id number] : 1950 F 74 From: Se vidal MD PCP: Dr. Liliam Alaniz MD Status: [facility] ER Study: Chest 1 View (Portable) Date of Exam: 02/07/25 Exam# [id number] Ordering Dr: Glauthier,Denisha PA PROCEDURE: CHEST 1 VIEW (PORTABLE) 02/07/2025 REASON FOR EXAM: CHEST PAIN TECHNIQUE: Frontal view of the chest. COMPARISON: Prior study dated September 16, 2024. FINDINGS: Hardware: EKG electrodes are seen. Heart: Heart size upper limits of normal. Lungs: The lungs are clear. Bones: Degenerative changes are identified within the thoracic spine. Other: RAD/Chest 1 View (Portable) IMPRESSION: No Acute Findings. Reading Location: [facility]-JUDUOBRMU-L CC: Dr. Liliam Alaniz MD; CHANCE English Manager Multimedia: Signed Normal [facility] Chloride assayOrdered By: Becca Chapa on 02-07-2025 Chloride [Moles/Vol] 101 mmol/L 98-108 [facility] Consultation - Cardiologyon 02-07-2025 Consultation - Cardiology [facility] Medical Records Department [address] [place] [address] Consultation - Cardiology 02/07/25 1854 MR#: [id number] Acct: [id number] Name: WINSTON OHARA Rep #: [id number] : 1950 74 From: Enrico Rendon MD PCP: Dr. Liliam Alaniz MD Status:ADM IN [facility] Assessment Plan Assessment/Plan (1) Paroxysmal atrial fibrillation: (2) Essential (primary) hypertension: (3) Shortness of breath: (4) History of cardioversion: (5) Atrial flutter with rapid ventricular response: PLAN: 74-year-old patient who was seen and evaluated at the cardiology clinic today and was sent over to the ED at [facility] with atrial flutter with variable ventricular rate She had symptoms of dizziness. And noted her rate was 130s 3. And she was started in the ED on treatment with Cardizem. IV iron was sent over to the progressive care unit where patient continued to have atrial flutter with variable ventricular rate. Patient has multiple previous synchronized cardioversions for atrial flutter/A-fib Currently she been on treatment with sotalol/metoprolol in addition to anticoagulation with Xarelto. Other medical problem include history of hypertension History of depression. Cardiac care plan; Discussed the cardiac care plan with the medical team will start on amiodarone and will continue on anticoagulation. 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 Will review her echocardiogram and we will follow-up clinically. HPI Consult Data Date of Consult: 02/07/25 HPI Narrative Reason for Consultation: Atrial flutter with variable ventricular rate HPI Narrative: WINSTON OHARA, is a 74 F who presents [facility] Medical History Dyspnea Wears glasses Post-menopausal Arthritis [...] 25 mg tablet 25 mg PO DAILY anxiety 08/09/22 History acetaminophen 500 mg tablet 1,000 mg PO Q8 PRN pain 09/26/23 U nknown History zolpidem 5 mg tablet 5 mg PO QHS Sleep 09/26/23 Unknown History furosemide 40 mg tablet 40 mg PO DAILY PRN edema #30 tabs 12/04/23 Unknown Rx rivaroxaban 20 mg tablet 20 mg PO DAILY afib #90 tabs 10/0401/13/25 Rx metoprolol succinate 50 mg 50 mg PO QDAY afib #90 tabs Unknown Rx tablet,extended release 24 hr sotalol 80 mg tablet 80 mg PO BID heart #180 tabs 01/31 Unknown Rx Allergy/AdvReac Type Severity Reaction Status Date / Time flecainide Allergy Left Verified 01/10/25 09:27 Bundle Branch Block/BUE tingling/leg weakness aspirin (ASA) AdvReac ONLY HAS Verified 01/10/25 09:27 ONE KIDNEY, TOLD TO AVOID cortisone AdvReac CHEST HOT Verified 01/10/25 09:27 WEIRD NSAIDS (Non-Steroidal AdvReac ONLY HAS Verified 01/10/25 09:27 Anti-Inflamma ONE KIDNEY, TOLD TO AVOID Family [...] do you participate in: walking frequency: daily Physical Exam Cardio Cardio Narrative: Patient seen evaluated at bedside Still complaining of shortness of breath with palpitation child monitor showed atrial flutter with variable ventricular rate Cardiac exam S1-S2 is irregular Chest exam clear to auscultation bilaterally E (more content not included)... Normal [facility] Echo Completeon 02-07-2025 Echo Complete [facility] Cardiovascular Services [address] [place] [address] Echo Complete 02/08/25 0944 MR#: [id number] Acct: [id number] Name: WINSTON OHARA Rep #: [id number] : 1950 74 From: Enrico Rendon MD Attending Dr: Dr. Roxana Valerio MD Status: AD M IN Ordering Dr: George Nichole DO Date: 02/07/25 Location: [facility] Sex: F C Admitted: 02/07/25 Reason For Study Reason For Study: AFLUTTER Procedure This was a 2D Doppler, Color Flow transthoracic echocardiogram. Exam performed portable in patient room. Left Ventricle Mildly dilated left ventricle. The 3D full volume ejection fraction is 35-40 %. Right Ventricle Normal right ventricle. Normal systolic function. Atria The left atrium is moderately enlarged. The right atrium is moderately enlarged. Mitral Valve The mitral valve is structurally normal. No prolapse or stenosis seen. Mild (1+) mitral valve insufficiency. Tricuspid Valve Normal tricuspid valve. Moderate (2+) tricuspid valve insufficiency. Aortic Valve Trisinus/trileaflet aortic valve. Pulmonic Valve The pulmonic valve is not well visualized. Great Vessels The aortic root is not well visualized. Pericardium/Pleural No pericardial effusion. MMode/2D Measurements Calculations LVIDd: 4.4 cm IVSd: 0.86 cm LVOT diam: 2.0 cm LVIDs: 3.3 cm LVPWd: 0.88 cm LVOT area: 3.1 cm2 FS: 24.7 % LAV(MOD-bp): 93.2 ml LVAd ap4: 21.6 cm2 SV(MOD-sp4): 19.9 ml LAV(MOD-bp) Indexed: 52.8 ml/m2 LVLd ap4: 6.3 cm SI(MOD-sp4): 11.3 ml/m2 LAV(MOD-sp2): 89.5 ml EDV(MOD-sp4): 62.2 ml LAV(MOD-sp4): 84.2 ml EDV(sp4-el): 62.3 ml LVAs ap4: 16.7 cm2 LVLs ap4: 5.8 cm ESV(MOD-sp4): 42.3 ml ESV(sp4-el): 40.8 ml EF(MOD-sp4): 32.0 % EF(sp4-el): 34.4 % SV(sp4-el): 21.5 ml LA A4 area: 27.1 cm2 LA dimension(2D): 4.0 cm RA A4 area: 20.6 cm2 Doppler Measurements Calculations MV E max christiano: 70.6 cm/sec Ao V2 max: 74.8 cm/sec LV V1 max: 66.5 cm/sec Ao max P.2 mmHg LV V1 max P.8 mmHg Ao V2 mean: 59.7 cm/sec LV V1 mean P.2 mmHg Ao mean P.5 mmHg LV V1 mean: 53.7 cm/sec Ao V2 VTI: 10.8 cm LV V1 VTI: 9.7 cm AV (velocity ratio): 0.89 BRUNO(I,D): 2.8 cm2 BRUNO(V,D): 2.7 cm2 SV(LVOT): 29.8 ml PA V2 max: 94.4 cm/sec TR max christiano: 327.9 cm/sec PA V2 mean: 66.4 cm/sec TR max P.0 mmHg ECHO/Echo Complete Interpretation Summary The 3D full volume ejection fraction is 35-40 %. Ordering Physician: George Nichole Referring Physician: SHOAIB PIZANO Performed By: Cindy Simon RCS 02/08/25 1349 Date Enrico Rendon MD CC: Dr. George Nichole DO; Dr. Liliam Alaniz MD; Dr. Roxana Valerio MD Date Dictated: 02/08/2544 Date Transcribed: 02/08/25 134 Manager Multimedia: Signed Normal [facility] Emergency Department Summary on 02-07-2025 Emergency Department Summary [facility] Medical Records Department [address] [place] [address] Emergency Department Summary 02/07/25 MR#: [id number] Acct: [id number] Name: WINSTON OHARA Rep #: [id number] : 1950 74 From: Denisha FLETCHER PCP: Dr. 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 She had cardioversion in August 2024 that lasted 4 months then another cardioversion in December 2024 then only lasted 5 days. Cardiology has been adjusting her medications to try and treat it until she can see [facility] in March for an ablation. 1 week ago they stopped losartan, started metoprolol 50 mg once in the a.m., and she still on Xarelto and sotalol 80 mg twice a day and is compliant with all of these. She feels palpitations but denies chest pain. She has exertional dyspnea and over the last week has had bilateral ankle edema. She takes Lasix as needed and took it over last 3 days. [facility] Medical History (Updated 02/07/25 @ 16:44 by CHANCE English) Dyspnea Wears glasses Post-menopausal Arthritis History of [...] mg tablet 25 mg PO DAILY 08/09/22 01/13/25 H istory acetaminophen 500 mg tablet 1,000 mg PO Q8 PRN pain 09/26/23 U nknown History zolpidem 5 mg tablet 5 mg PO QHS Sleep 09/26/23 Unknown History furosemide 40 mg tablet 40 mg PO DAILY PRN edema #30 tabs 12/04/23 Unknown Rx rivaroxaban 20 mg tablet 20 mg PO DAILY #90 tabs 10/04/24 0 01/13/25 Rx metoprolol succinate 50 mg 50 mg PO QDAY #90 tabs 01/31/25 Un known Rx tablet,extended release 24 hr sotalol 80 mg tablet 80 mg PO BID #180 tabs 01/31/25 Un known Rx Allergy/AdvReac Type Severity Reaction Status Date / Time flecainide Allergy Left Verified 01/10/25 09:27 Bundle Branch Block/BUE tingling/leg weakness aspirin (ASA) AdvReac ONLY HAS Verified 01/10/25 09:27 ONE KIDNEY, TOLD TO AVOID cortisone AdvReac CHEST HOT Verified 01/10/25 09:27 WEIRD NSAIDS (Non-Steroidal AdvReac ONLY HAS Verified 01/10/25 09:27 Anti-Inflamma ONE KIDNEY, TOLD TO AVOID Family [...] in: walking frequency: daily ROS ROS ED ROS Narrative Constitutional: Negative for fever, chills, malaise. CVS: Positive for palpitations. No chest pain or syncope. Respiratory: Positive for exertional shortness of breath. GI: Negative for abdominal pain, nausea, vomiting. EXAM Physical Exam Narrative Exam Narrative: CONST: Patient sitting in no acute distress. EYES: Normal inspection. NECK: Normal inspection. RESP: No respiratory distress, CTAB. CVS: Tachycardic irregularly irregular, no murmur, no gallop. ABD: Soft and nontender, no guarding or rebound, nondistended. SKIN: Color normal, no rash, warm, dry, intact. EXTREMITIES: Normal appearance, no pedal edema. NEURO: Alert and answering questions appropriately. PSYCH: Normal affect. Const Vital Signs: 02/07/25 14:13 02/07/25 14:14 02/07/25 14:17 Temperature 97.7 F L Tem (more content not included)... Normal [facility] Eosinophil percentageOrdered By: Denisha Chapa on 02-07-2025 Eosinophils/100 WBC (Bld) 1.5 % 0-5 [facility] Erythrocyte distribution wid th ratioOrdered By: Denisha Chapa on 02-07-2025 Erythrocyte distribution width (RBC) [Ratio] 14.0 % 11.6-14.6 [facility] Erythrocyte distribution wid th standard deviationOrdered By: Denisha Chapa on 02-07-2025 Erythrocyte distribution width (RBC) [Ratio] 46.4 fl High 35.1-43.9 [facility] Glomerular filtration rate ( GFR) estimation/1.73 sq m using serum, plasma, or whole bOrdered By: Denisha Chapa on 02-07-2025 GFR/1.73 sq M.predicted among non-blacks MDRD (S/P/Bld) [Vol rate/Area] 58 mL/min/{1.73_m2} Low >60 [facility] Comment on above: mL/min/1.73m2 CKD-EP I Creatinine Equation (2020) H AND P Exam - [facility] 02-07-2025 H&P Exam - Hospitalist [facility] Medical Records Department [address] [place] [address] H P Exam - Hospitalist 02/07/25 1712 MR#: [id number] Acct: [id number] Name: WINSTON OHARA Rep #: [id number] : 1950 74 From: George Nichole DO PCP: Dr. Liliam Alaniz MD Status:ADM IN Location: [facility] [id number] HPI - General General Date of Admission: 02/07/25 Date of Service: 02/07/25 Chief Complaint: Dizziness HPI Narrative WINSTON OHARA, is a 74 F who presents with dizziness. She was at her cardiology office today and was noted to have a heart rate of 133. Patient was started to go to the emergency room. In the emergency room, patient has a history of A-fib but was actually noted to be in atrial flutter. Patient received a total of 40 mg IV diltiazem bolus and then was placed on a diltiazem drip. Since initiation of the diltiazem drip it has not been infusing and her heart rate still been in the 120s to 130s. Patient's IV is currently small gauge IV in her lateral left wrist. Patient is experiencing some chest tightness and palpitations. This is consistent with her history of atrial fib with RVR. Patient was not tolerating sotalol 120 twice daily and so that was decreased to 80 twice daily and then was added on metoprolol succinate 50 daily. Patient underwent a cardioversion (her fourth) on January 13 and was in sinus rhythm but she stated that that lasted only for about 5 days before she was back into her A-fib. She states at home that her heart rate is typically in the 90s. [facility] Medical History Dyspnea Wears glasses Post-menopausal Arthritis [...] 25 mg tablet 25 mg PO DAILY anxiety 08/09/22 History acetaminophen 500 mg tablet 1,000 mg PO Q8 PRN pain 09/26/23 U nknown History zolpidem 5 mg tablet 5 mg PO QHS Sleep 09/26/23 Unknown History furosemide 40 mg tablet 40 mg PO DAILY PRN edema #30 tabs 12/04/23 Unknown Rx rivaroxaban 20 mg tablet 20 mg PO DAILY afib #90 tabs 10/0401/13/25 Rx metoprolol succinate 50 mg 50 mg PO QDAY afib #90 tabs Unknown Rx tablet,extended release 24 hr sotalol 80 mg tablet 80 mg PO BID #180 tabs 01/31/25 Un known Rx Allergy/AdvReac Type Severity Reaction Status Date / Time flecainide Allergy Left Verified 01/10/25 09:27 Bundle Branch Block/BUE tingling/leg weakness aspirin (ASA) AdvReac ONLY HAS Verified 01/10/25 09:27 ONE KIDNEY, TOLD TO AVOID cortisone AdvReac CHEST HOT Verified 01/10/25 09:27 WEIRD NSAIDS (Non-Steroidal AdvReac ONLY HAS Verified 01/10/25 09:27 Anti-Inflamma ONE KIDNEY, TOLD TO AVOID Family [...] participate in: walking frequency: daily ROS ROS Narrative All review of systems were negative except as mentioned above in the history of present illness and the other review of systems. Vital Signs Vital Signs Vital Signs: 02/07/25 14:13 02/07/25 14:14 02/07/25 14:17 Temperature 36.5 C L Temperature Source Oral Pulse Rate 133 H 140 H Respiratory Rate 15 Respiratory Effort Short of Breath Blood Pressure 140/103 H Blood Pressure Mean 115 Pulse Ox 99 Oxygen Delivery Method Room Air 02/07/25 14:38 02/07/25 15:13 02/07/25 16:00 (more content not included)... Normal [facility] Hematocrit Auto (Bld) [Volum e fraction]Ordered By: Denisha Chapa on 02-07-2025 Hematocrit (Bld) [Volume fraction] 39.4 % 37-47 [facility] Hemoglobin measurementOrdere d By: Denisha Chapa on 02-07-2025 Hemoglobin (Bld) [Mass/Vol] 13.1 g/dL 12.0-15.0 [facility] Immature granulocytes/100 WB C Auto (Bld)Ordered By: Denisha Chapa on 02-07-2025 Immature granulocytes/100 WBC (Bld) 0.300 % 0.0-0.9 [facility] Comment on above: IG% - Immature Granu locytes (promyelocytes, myelocytes and metamyelocytes) > 1% indicates that a LEFT SHIFT is Present. L501.4021on 02-07-2025 Trop T High Sen 12 ng/L Normal <=14 [facility] Comment on above: Performed By: #### L 100.0100, L501.5200, L501.4021, L501.9520, L500.2500 ####[facility] [address] [place], [place], [id number] MCV (mean corpuscular volume ) determinationOrdered By: Denisha Chapa on 02-07-2025 MCV (RBC) [Entitic vol] 92.5 fL 81-99 [facility] Magnesiumon 02-07-2025 Magnesium [Mass/Vol] 2.2 mg/dL Normal 1.5-2.2 [facility] Comment on above: Performed By: #### L 100.0100, L501.5200, L501.4021, L501.9520, L500.2500 ####[facility] [address] [place], [place], [id number] Magnesium measurement (mass/ volume)Ordered By: Denisha Chapa on 02-07-2025 Magnesium (Unsp spec) [Mass/Vol] 2.2 mg/dL 1.5-2.2 [facility] Mean corpuscular hemoglobin (MCH) determinationOrdered By: Denisha Chapa on 02-07-2025 MCH (RBC) [Entitic mass] 30.8 pg 27.0-32.0 [facility] Mean corpuscular hemoglobin concentration (MCHC) determinationOrdered By: Denisha Chapa on 02-07-2025 MCHC (RBC) [Mass/Vol] 33.2 g/dL 32-36 [facility] Mean platelet volume determi nationOrdered By: Denisha Eduard on 02-07-2025 Platelet mean volume (Bld) [Entitic vol] 10.8 fL 6.2-12.0 [facility] Monocyte percentageOrdered B y: Denisha Eduard on 02-07-2025 Monocytes/100 WBC (Bld) 8.3 % 0-10 [facility] Neutrophil percentageOrdered By: Denisha Hamlinkamron on 02-07-2025 Neutrophils/100 WBC (Bld) 73.7 % High 47-70 [facility] Nucleated red blood cell per centageOrdered By: Denisha Eduard on 02-07-2025 Nucleated RBC/100 WBC (Bld) [Ratio] 0 % 0-5 [facility] Office Visit Reporton 2024 Office Visit Report [facility] [address] [place] [address] OFFICE VISIT Date of Service: 02/07/25 MR#: [id number] Acct: [id number] Patient: WINSTON OHARA Rep #: [id number] : 1950 Provider: Dr. Sterling Thapa MD Age/Sex: 74/F Location: [facility] Status: Signed Intake Vital Signs 01/13/25 11:13 Height 5 ft 4 in Intake Visit Reasons: EKG Chief Complaint: A-Fib Allergies flecainide Allergy (Verified 01/10/25 09:27) Left Bundle Branch Block/BUE tingling/leg weakness aspirin (ASA) Adverse Reaction (Verified 01/10/25 09:27) ONLY HAS ONE KIDNEY, TOLD TO AVOID cortisone Adverse Reaction (Verified 01/10/25 09:27) CHEST HOT WEIRD NSAIDS (Non-Steroidal Anti-Inflamma Adverse Reaction (Verified 01/10/25 09:27) ONLY HAS ONE KIDNEY, TOLD TO AVOID Have you fallen in the past year?: No Nursing Note EKG performed with patient c/o dizziness. Stated that cardioversion failed and that she started on metoprolol 1 week ago. States that was why this EKG was being performed, to see if medication working. HR noted at 133. Results of EKG reviewed per CHANCE Brown and Rea Campbell NP. Instructed would recommend patient go to ER due to HR being elevated. Patient left stating they were going to go to ER. Assessment and Plan Assessment and Plan Orders: Orders 12 Lead EKG performed by RUBEN 02/07/25 R00.1 - Bradycardia, unspecified, R07.89 - Other chest pain Patient Instructions: Go to ER Clinical Quality Measures Falls Risk Screening/Assistive Devices Have you fallen in the past year?: No 02/10/25 191 Date Sterling Weathers Signature: Date (if applicable) CC: Normal [facility] Platelet countOrdered By: Becca Chapa on 02-07-2025 Platelets (Bld) [#/Vol] 224 10*3/uL 150-450 [facility] Potassium measurement (mass/ volume)Ordered By: Denisha Chapa on 02-07-2025 Potassium (Unsp spec) [Mass/Vol] 3.9 mmol/L 3.3-5.1 [facility] RBC Auto (Bld) [#/Vol]Ordere d By: Denisha Chapa on 02-07-2025 RBC (Bld) [#/Vol] 4.26 10*6/uL 4.2-5.4 [facility] Serum creatinine measurement (mass/volume)Ordered By: Denisha Chapa on 02-07-2025 Creatinine [Mass/Vol] 1.03 mg/dL 0.70-1.20 [facility] Serum glucose measurement (m ass/volume)Ordered By: Denisha Chapa on 02-07-2025 Glucose [Mass/Vol] 147 mg/dL High 70-99 [facility] Serum or plasma calcium hay urement (mass/volume)Ordered By: Denisha Chapa on 02-07-2025 Calcium [Mass/Vol] 9.6 mg/dL 7.6-11.0 [facility] Serum or plasma urea nitroge n measurement (mass/volume)Ordered By: Denisha Chapa on 02-07-2025 Urea nitrogen [Mass/Vol] 28 mg/dL High 4-19 [facility] Sodium levelOrdered By: Denisha Chapa on 02-07-2025 Sodium [Moles/Vol] 137 mmol/L 133-145 [facility] TSH DL <= 0.005 mIU/L QnOrde red By: Denisha Chapa on 02-07-2025 TSH Qn 2.870 uIU/mL 0.300-4.200 [facility] Thyroid Stim Hormone (TSH)on 02-07-2025 TSH 2.870 uIU/mL Normal 0.300-4.200 [facility] Comment on above: Performed By: #### L 100.0100, L501.5200, L501.4021, L501.9520, L500.2500 ####[facility] [address] [place], [address] Troponin T HS 2 HRon 025 Trop T High Sen 8 ng/L Normal <=14 [facility] Comment on above: Performed By: #### L 500.2500 #### [facility] [address] [place], [address] Troponin T HS 4 HRon 025 Trop T High Sen 7 ng/L Normal <=14 [facility] Comment on above: Performed By: #### L 499.0043 ####[facility] [address] [place], [address] Troponin T.cardiac [Mass/vol ume] in Serum or Plasma by High sensitivity methodOrdered By: George Nichole on 02-07-2025 Troponin T.cardiac High sensitivity method [Mass/Vol] 7 ng/L <14 [facility] Troponin T.cardiac [Mass/vol ume] in Serum or Plasma by High sensitivity methodOrdered By: Denisha Chapa on 02-07-2025 Troponin T.cardiac High sensitivity method [Mass/Vol] 8 ng/L <14 [facility] Troponin T.cardiac High sensitivity method [Mass/Vol] 12 ng/L Invalid Interpretation Code <14 [facility] Comment on above: Delta: 13 on 5-1445 White blood cell (WBC) count Ordered By: Denisha Hamlinkamron on 02-07-2025 WBC (Bld) [#/Vol] 7.4 10*3/uL 4.4-11.0 [facility] Office Visit Reporton 2024 Office Visit Report [facility] [address] [place] [address] OFFICE VISIT Date of Service: 01/31/25 MR#: [id number] Acct: [id number] Patient: WINSTON OHARA Rep #: [id number] : 1950 Provider: LANIE lyons Age/Sex: 74/F Location: [facility] Status: Signed Intake Vital Signs 01/13/25 11:13 01/31/25 13:49 Height 5 ft 4 in Weight: 154 lb BP 98/68 Blood Pressure Location Lt brachial Position Sitting Respiration 18 Pulse 130 H Pulse Source Monitor Intake Visit Reasons: Blood pressure check Allergies flecainide Allergy (Verified 01/10/25 09:27) Left Bundle Branch Block/BUE tingling/leg weakness aspirin (ASA) Adverse Reaction (Verified 01/10/25 09:27) ONLY HAS ONE KIDNEY, TOLD TO AVOID cortisone Adverse Reaction (Verified 01/10/25 09:27) CHEST HOT WEIRD NSAIDS (Non-Steroidal Anti-Inflamma Adverse Reaction (Verified 01/10/25 09:27) ONLY HAS ONE KIDNEY, TOLD TO AVOID Have you fallen in the past year?: No Nursing Note Patient in office for BP check and EKG. States she has not been feeling well since increasing sotalol to 120mg twice daily. She states she is having diarrhea and feels breathless. BP 98/68, P 130, R 18, O2 96%. Home BP machine: BP 96/72, P 153. EKG and vitals reviewed with MMM. She will speak with patient regarding results and current symptoms. Assessment and Plan Assessment and Plan (1) Paroxysmal atrial flutter: Status: Chronic (2) Paroxysmal atrial fibrillation: Status: Chronic Orders: Orders 12 Lead EKG performed by RUBEN 01/31/25 Jozef Carr NP, METAL CONTAINER [employer]KER-C I48.0 - Paroxysmal atrial fibrillation, I48.92 - Unspecified atrial flutter Medications: New metoprolol succinate ER 25 mg PO QDAY 90 tabs 3RF Teofilo FLETCHER PA metoprolol succinate ER 50 mg PO QDAY 90 tabs 3RF Teofilo FLETCHER PA Changed From sotalol 120 mg PO BID 60 tabs 11RF To sotalol 80 mg PO BID 180 tabs 3RF CHANCE Guardado Discontinued losartan Discontinued Reason: Order Completed 50 mg PO DAILY 90 tabs 3RF Plan Keep your appt with EP is march. Stop your losartan Start metoprolol XL 25 mg daily Continue your sotalol at 120 mg twice day Come back next week for an EKG. This was reviewed with Dr. Thapa Clinical Quality Measures Falls Risk Screening/Assistive Devices Have you fallen in the past year?: No 02/06/25 1707 A> Date Teofilo Matosignguillermo Signature: Date (if applicable) CC: Normal [facility] Anion gap in Serum or Plasma Ordered By: Sterling Thapa on 01-13-2025 Anion gap [Moles/Vol] 11 mmol/L 11-14 [facility] BUN/creatinine ratioOrdered By: Sterling Thapa on 01-13-2025 Urea nitrogen/Creatinine [Mass ratio] 26.9 mg/mg High 04-21 [facility] Basic Metabolic Profile (BMP )on 01-13-2025 BUN/CRE 26.9 RATIO High 04-21 [facility] Comment on above: Performed By: #### L 500.2500 #### [facility] [address] [place], [address] Calcium [Mass/Vol] 9.5 mg/dL Normal 7.6-11.0 [facility] Comment on above: Performed By: #### L 500.2500 #### [facility] [address] [place], [address] Chloride [Moles/Vol] 104 mmol/L Normal 98-108 [facility] Comment on above: Performed By: #### L 500.2500 #### [facility] [address] [place], [address] CO2 [Moles/Vol] 23.5 mmol/L Normal 21.0-32.0 [facility] Comment on above: Performed By: #### L 500.2500 #### [facility] [address] [place], [address] Creatinine [Mass/Vol] 1.09 mg/dL Normal 0.70-1.20 [facility] Comment on above: Performed By: #### L 500.2500 #### [facility] [address] [place], [address] ECRCL 44.75 ml/min Low 50-250 [facility] Comment on above: Performed By: #### L 500.2500 #### [facility] [address] [place], [address] GAP 11 Normal 5-15 [facility] Comment on above: Performed By: #### L 500.2500 #### [facility] [address] [place], [address] GFR/1.73 sq M.predicted among non-blacks MDRD (S/P/Bld) [Vol rate/Area] 54 mL/min/{1.73_m2} Low >60 [facility] Comment on above: Result Comment: mL/m in/1.73m2 CKD-EPI Creatinine Equation (2020) Performed By: #### L 500.2500 #### [facility] [address] [place], [address] Glucose [Mass/Vol] 120 mg/dL High 70-99 [facility] Comment on above: Performed By: #### L 500.2500 #### [facility] [address] [place], [address] Potassium [Moles/Vol] 5.1 mmol/L Normal 3.3-5.1 [facility] Comment on above: Result Comment: Hemo lysis present, Results??could be affected. ?? Performed By: #### L 500.2500 #### [facility] [address] [place], [address] Sodium [Moles/Vol] 138 mmol/L Normal 133-145 [facility] Comment on above: Performed By: #### L 500.2500 #### [facility] [address] [place], [address] Urea nitrogen [Mass/Vol] 29 mg/dL High 4-19 [facility] Comment on above: Performed By: #### L 500.2500 #### [facility] [address] [place], [address] Carbon dioxide, total [Moles /volume] in Central venous bloodOrdered By: [place] Alanis on 01-13-2025 CO2 [Moles/Vol] 23.5 mmol/L 21.0-32.0 [facility] Chloride assayOrdered By: Cy ril Alanis on 01-13-2025 Chloride [Moles/Vol] 104 mmol/L 98-108 [facility] Glomerular filtration rate ( GFR) estimation/1.73 sq m using serum, plasma, or whole bOrdered By: Sterling Alanis on 01-13-2025 GFR/1.73 sq M.predicted among non-blacks MDRD (S/P/Bld) [Vol rate/Area] 54 mL/min/{1.73_m2} Low >60 [facility] Comment on above: mL/min/1.73m2 CKD-EP I Creatinine Equation (2020) Potassium measurement (mass/ volume)Ordered By: Sterling Thapa on 01-13-2025 Potassium (Unsp spec) [Mass/Vol] 5.1 mmol/L 3.3-5.1 [facility] Comment on above: Hemolysis present, R esults could be affected. Procedure Reporton Procedure Report [facility] Medical Records Department [address] [place] [address] Procedure Report 01/13/25 1312 MR#: [id number] Acct: [id number] Name: WINSTON OHARA Rep #: [id number] : 1950 74 From: Gage Zuñiga DO PCP: Dr. Liliam Alaniz MD Status:REG [facility] Location: [facility] Procedures Pulmonary Pulmonary Procedures /Diagnostic Testin Con Sedation Non-invasive Procedural Procedure Information Date of Procedure: 01/13/25 Description of procedure: CONSCIOUS SEDATION REPORT DATE OF SERVICE: January 13, 2025 BRIEF HISTORY OF PRESENT ILLNESS: The patient is a 74-year-old female who presented to [facility] to undergo an elective outpatient cardioversion due [...] DO; Dr. Liliam Alaniz MD Signed Normal [facility] Procedure Report [facility] Medical Records Department [address] [place] [address] Procedure Report 01/13/25 1212 MR#: [id number] Acct: [id number] Name: WINSTON OHARA Rep #: [id number] : 1950 74 From: Sterling Thapa MD PCP: Dr. Liliam Alaniz MD Status:REG [facility] Location: [facility] Problems Associated Problem List Diagnoses (1) Paroxysmal atrial flutter: Non-invasive Procedural Procedure Information Date of Procedure: 01/13/25 Pre-Procedure Diagnosis: Atrial flutter Post-Procedure Diagnosis: Same Procedure Performed:: DC cardioversion inseam leveler: No Procedure Time Out: 12:01 Procedure Start [...] MD; Dr. Liliam Alaniz MD Signed Normal [facility] Serum creatinine measurement (mass/volume)Ordered By: Sterling Thapa on 01-13-2025 Creatinine [Mass/Vol] 1.09 mg/dL 0.70-1.20 [facility] Serum glucose measurement (m ass/volume)Ordered By: Sterling Thapa on 01-13-2025 Glucose [Mass/Vol] 120 mg/dL High 70-99 [facility] Serum or plasma calcium hay urement (mass/volume)Ordered By: Sterling Tamezori on 01-13-2025 Calcium [Mass/Vol] 9.5 mg/dL 7.6-11.0 [facility] Serum or plasma urea nitroge n measurement (mass/volume)Ordered By: Sterling Thapa on 01-13-2025 Urea nitrogen [Mass/Vol] 29 mg/dL High 4-19 [facility] Sodium levelOrdered By: Delvin Thapa on 01-13-2025 Sodium [Moles/Vol] 138 mmol/L 133-145 [facility] Cardiology Visit Reporton Cardiology Visit Report [facility] [address] [place] [address] OFFICE VISIT Date of Service: 01/10/25 MR#: [id number] Acct: [id number] Name: WINSTON OHARA Rep #: [id number] : 1950 Provider: CHANCE Peacock Age/Sex: 74/F Location: [facility] Status: Signed HPI HPI History of Present [...] Visit Reasons: a fib, see clinical notes [employer] Recruiter Required: No Accompanied by: Self Is patient [...] the past year?: Yes (dog tripped her) [facility] Medical History Dyspnea Wears glasses Post-menopausal Arthritis [...] Negative for c (more content not included)... [facility] (INTMWS ) WINSTON OHARA ([id number]) 1950 F NFR Date Time Provider Department 12/26/24 10:20 AM LILIAM ALANIZ INTMWS During your visit today, we recorded the following information about you: Pulse Respiration Blood pressure Weight 88/minute 14/minute 136/62 70.1 kg Liliam Alaniz MD 12/26/2024 11:24 AM Signed This note was created using [employer]. Subjective Winston Ohara is a 74 year [...] undergoing an ablation procedure recommended by her flower grader, Dr. Ling, and seeks advice on whether [...] Rate and (more content not included)... Normal [facility] 25(OH)D3 [facility] 25-hydroxyvitamin D3 [Mass/Vol] 36.6 ng/mL Normal 31.0-80.0 [facility] Comment on above: Order Comment: Speckecia kaplan Type: BLOOD SPECIMENOrdering Facility: [facility] Address: [address] [place] [address] Result Comment: Clas sification of 25 [place] Vitamin D status: Deficiency/Insufficiency: < or = 30 ng/ml. Sufficiency/Optimal Levels: 31-80 ng/mL Toxicity: > 100 ng/mL. Test performed by chemiluminescent immunoassay. Performed By: #### 1 989-3 ####[facility] [id number] [place] [address] [place] CBC panel Auto (Bld)on 12-23 Erythrocyte distribution width (RBC) [Ratio] 13.0 % Normal 11.5-15.0 [facility] Comment on above: Order Comment: Reanna kaplan Type: BLOOD SPECIMENOrdering Facility: [facility] Address: [address] [place] [address] Performed By: #### 5 8410-2 ####[facility] [id number] [place] [address] [place] Hematocrit (Bld) [Volume fraction] 40.6 % Normal 36.0-46.0 [facility] Comment on above: Order Comment: Speci men Type: BLOOD SPECIMENOrdering Facility: [facility] Address: [address] [place] [address] Performed By: #### 5 8410-2 ####[facility] LABIA [id number] [place] [address] [place] Hemoglobin (Bld) [Mass/Vol] 13.2 g/dL Normal 11.5-15.5 [facility] Comment on above: Order Comment: Speci men Type: BLOOD SPECIMENOrdering Facility: [facility] Address: [address] [place] [address] Performed By: #### 5 8410-2 ####[facility] LABIA [id number] [place] [address] [place] MCH (RBC) [Entitic mass] 30.5 pg Normal 26.0-34.0 [facility] Comment on above: Order Comment: Speci men Type: BLOOD SPECIMENOrdering Facility: [facility] Address: [address] [place] [address] Performed By: #### 5 8410-2 ####[facility] LABIA [id number] [place] [address] [place] MCHC (RBC) [Mass/Vol] 32.5 g/dL Normal 30.5-36.0 [facility] Comment on above: Order Comment: Speci men Type: BLOOD SPECIMENOrdering Facility: [facility] Address: [address] [place] [address] Performed By: #### 5 8410-2 ####[facility] LABIA [id number] [place] [address] [place] MCV (RBC) [Entitic vol] 93.8 fL Normal 80.0-100.0 C [facility] Comment on above: Order Comment: Speci men Type: BLOOD SPECIMENOrdering Facility: [facility] Address: [address] [place] [address] Performed By: #### 5 8410-2 ####[facility] LABCLIA [id number] [place] [address] [place] Nucleated RBC (Bld) [#/Vol] 10*3/uL Normal <0.01 [facility] Comment on above: Order Comment: Speci men Type: BLOOD SPECIMENOrdering Facility: [facility] Address: [address] [place] [address] Performed By: #### 5 8410-2 ####[facility] LABCLIA [id number] [place] [address] [place] Platelet mean volume (Bld) [Entitic vol] 10.2 fL Normal 9.0-12.7 [facility] Comment on above: Order Comment: Speci men Type: BLOOD SPECIMENOrdering Facility: [facility] Address: [address] [place] [address] Performed By: #### 5 8410-2 ####[facility] LABCLIA [id number] [place] [address] [place] Platelets (Bld) [#/Vol] 194 10*3/uL Normal 150-400 [facility] Comment on above: Order Comment: Speci men Type: BLOOD SPECIMENOrdering Facility: [facility] Address: [address] [place] [address] Performed By: #### 5 8410-2 ####[facility] LABCLIA [id number] [place] [id number] [place] RBC (Bld) [#/Vol] 4.33 10*6/uL Normal 3.90-5.20 [facility] Comment on above: Order Comment: Speci men Type: BLOOD SPECIMENOrdering Facility: [facility] Address: [address] [place] [address] Performed By: #### 5 8410-2 ####[facility] LABCLIA [id number] [address] [place] [address] [place] WBC (Bld) [#/Vol] 5.45 10*3/uL Normal 3.70-11.00 [facility] Comment on above: Order Comment: Speci men Type: BLOOD SPECIMENOrdering Facility: [facility] Address: [address] [place] [address] Performed By: #### 5 8410-2 ####[facility] LABCLIA [id number] [address] [place] [address] [place] [facility] Comprehensive metabolic 2000 panelon 12-23-2024 Albumin [Mass/Vol] 4.2 g/dL Normal 3.9-4.9 [facility] Comment on above: Order Comment: Speci men Type: BLOOD SPECIMENOrdering Facility: [facility] Address: [address] [place] [address] Performed By: #### 2 4331-1, 81453-1 ####[facility] LABCLIA [id number] [address] [place] [address] [place] ALP [Catalytic activity/Vol] 136 U/L High 34-123 [facility] Comment on above: Order Comment: Speci men Type: BLOOD SPECIMENOrdering Facility: [facility] Address: [address] [place] [address] Performed By: #### 2 4331-1, 15005-2 ####[facility] LABCLIA [id number] [address] [place] [address] [place] ALT [Catalytic activity/Vol] 12 U/L Normal 7-38 [facility] Comment on above: Order Comment: Speci men Type: BLOOD SPECIMENOrdering Facility: [facility] Address: [address] [place] [address] Performed By: #### 2 4331-1, 67142-0 ####[facility] LABCLIA [id number] [address] [place] [address] [place] Anion gap [Moles/Vol] 9 mmol/L Normal 8-15 [facility] Comment on above: Order Comment: Speci men Type: BLOOD SPECIMENOrdering Facility: [facility] Address: [address] [place] [address] Performed By: #### 2 4331-1, ####[facility] LABCLIA [id number] [place] [id number] [place] AST [Catalytic activity/Vol] 24 U/L Normal 13-35 [facility] Comment on above: Order Comment: Speci men Type: BLOOD SPECIMENOrdering Facility: [facility] Address: [address] [place] [address] Performed By: #### 2 4331-1, ####[facility] LABCLIA [id number] [place] [address] [place] Bilirubin [Mass/Vol] 0.7 mg/dL Normal 0.2-1.3 [facility] Comment on above: Order Comment: Speci men Type: BLOOD SPECIMENOrdering Facility: [facility] Address: [address] [place] [address] Performed By: #### 2 4331-1, ####[facility] LABCLIA [id number] [place] [id number] [place] Calcium [Mass/Vol] 9.8 mg/dL Normal 8.5-10.2 [facility] Comment on above: Order Comment: Speci men Type: BLOOD SPECIMENOrdering Facility: [facility] Address: [address] [place] [address] Performed By: #### 2 4331-1, ####[facility] LABCLIA [id number] [place] [id number] [place] Chloride [Moles/Vol] 107 mmol/L Normal 98-107 [facility] Comment on above: Order Comment: Speci men Type: BLOOD SPECIMENOrdering Facility: [facility] Address: [address] [place] [address] Performed By: #### 2 4331-1, 68429-3 ####[facility] LABCLIA [id number] [place] [id number] [place] CO2 [Moles/Vol] 25 mmol/L Normal 22-30 [facility] Comment on above: Order Comment: Speci men Type: BLOOD SPECIMENOrdering Facility: [facility] Address: [address] [place] [address] Performed By: #### 2 4331-1, 42421-8 ####[facility] LABIA [id number] [place] [address] [place] Creatinine [Mass/Vol] 0.83 mg/dL Normal 0.58-0.96 [facility] Comment on above: Order Comment: Speci men Type: BLOOD SPECIMENOrdering Facility: [facility] Address: [address] [place] [address] Performed By: #### 2 4331-1, 63582-3 ####[facility] LABCLIA [id number] [address] OF [facility] Creatinine and Glomerular filtration rate.predicted panel (S/P/Bld) 75 mL/min/1.73m??? Normal >=60 [facility] Comment on above: Order Comment: Speci men Type: BLOOD SPECIMENOrdering Facility: [facility] Address: [address] [place] [address] Result Comment: Melissa mated Glomerular Filtration Rate [...] actual GFR. Performed By: #### 2 4331-1, 62225-9 ####[facility] LABCLIA [id number] [address] [address] [place] Glucose [Mass/Vol] 92 mg/dL Normal 74-99 [facility] Comment on above: Order Comment: Speci men Type: BLOOD SPECIMENOrdering Facility: [facility] Address: [address] [place] [address] Result Comment: The English Diabetes Association (ADA) provides guidance for cutoff [...] Standards of Medical Care in Diabetes 2016, English Diabetes Association. Diabetes Care. 2016.39(Suppl 1). Performed By: #### 2 4331-1, 19432-5 ####[facility] LABCLIA [id number] [place] [address] [place] Potassium [Moles/Vol] 4.8 mmol/L Normal 3.7-5.1 [facility] Comment on above: Order Comment: Speci men Type: BLOOD SPECIMENOrdering Facility: [facility] Address: [address] [place] [address] Performed By: #### 2 4331-1, 30221-6 ####[facility] LABCLIA [id number] [place] [id number] [place] Protein [Mass/Vol] 6.9 g/dL Normal 6.3-8.0 [facility] Comment on above: Order Comment: Speci men Type: BLOOD SPECIMENOrdering Facility: [facility] Address: [address] [place] [address] Performed By: #### 2 4331-, 84666-5 ####[facility] LABCLIA [id number] [address] [address] [place] Sodium [Moles/Vol] 141 mmol/L Normal 136-144 [facility] Comment on above: Order Comment: Speci men Type: BLOOD SPECIMENOrdering Facility: [facility] Address: [address] [place] [address] Performed By: #### 2 4331-1, 07552-8 ####[facility] LABCLIA [id number] [place] [address] [place] Urea nitrogen [Mass/Vol] 18 mg/dL Normal 7-21 [facility] Comment on above: Order Comment: Speci men Type: BLOOD SPECIMENOrdering Facility: [facility] Address: [address] [place] [address] Performed By: #### 2 4331-1, 45836-6 ####[facility] LABIA [id number] [place] [address] [place] Lipid 1996 panelon 5 Cholesterol [Mass/Vol] 210 mg/dL High <200 [facility] Comment on above: Order Comment: Speci men Type: BLOOD SPECIMENOrdering Facility: [facility] Address: [address] [place] [address] Result Comment: <200 mg/dL, Desirable 200-239 mg/dL, Borderline high >239 mg/dL, High Performed By: #### 2 4331-1, 26363-6 ####[facility] LABIA [id number] [place] [id number] [place] Cholesterol in HDL [Mass/Vol] 58 mg/dL Normal >39 [facility] Comment on above: Order Comment: Speci men Type: BLOOD SPECIMENOrdering Facility: [facility] Address: [address] [place] [address] Result Comment: 40-5 9 mg/dL, Acceptable >59 mg/dL, High: Negative risk factor for coronary heart disease <40 mg/dL, Low: Positive risk factor for coronary heart disease Performed By: #### 2 4331-1, ####[facility] LABCLIA [id number] [address] [address] [place] Cholesterol in LDL [Mass/Vol] 129 mg/dL High <100 [facility] Comment on above: Order Comment: Speci men Type: BLOOD SPECIMENOrdering Facility: [facility] Address: [address] [place] [address] Result Comment: <100 mg/dL, Optimal 100-129 mg/dL, Near optimal/above optimal 130-159 mg/dL, Borderline high 160-189 mg/dL, High >189 mg/dL, Very high Secondary prevention optimal LDL Cholesterol levels are recommended to be <70 mg/dL LDL cholesterol is calculated using the Simpson-NIH equation. Performed By: #### 2 4331-1, ####[facility] LABIA [id number] [address] [place] Cholesterol in LDL/Cholesterol in HDL [Mass ratio] 2.22 {ratio} Normal <2.54 [facility] Comment on above: Order Comment: Speci men Type: BLOOD SPECIMENOrdering Facility: [facility] Address: [address] [place] [address] Result Comment: Cruz rodriguez: 1. National Cholesterol Education Program ATP III Guideline At-A-Glance Quick Desk Reference: National Heart, Lung, and Blood [employer]. National Institutes of Health. 2001: NIH Publication No. 01-3305. 2. An International Atherosclerosis Society position paper: global recommendations for the management of dyslipidemia: executive summary, Atherosclerosis. 2014: 232(2):410-413. Performed By: #### 2 4331-1, ####[facility] LABIA [id number] [address] [address] [place] Cholesterol in VLDL [Mass/Vol] 23 mg/dL Normal <30 [facility] Comment on above: Order Comment: Speci men Type: BLOOD SPECIMENOrdering Facility: [facility] Address: [address] [place] [address] Performed By: #### 2 4331-1, ####[facility] LABCLIA [id number] [address] [address] [place] Cholesterol non HDL [Mass/Vol] 152 mg/dL High <130 [facility] Comment on above: Order Comment: Speci men Type: BLOOD SPECIMENOrdering Facility: [facility] Address: [address] [place] [address] Result Comment: <130 mg/dL, Optimal 130-159 mg/dL, Near optimal/above optimal 160-189 mg/dL, Borderline high 190-219 mg/dL, High >219 mg/dL, Very high Secondary prevention optimal non HDL Cholesterol levels are recommended to be <100 mg/dL Performed By: #### 2 4331-1, ####[facility] LABCLIA [id number] [place] [address] [place] Cholesterol.total/Galina sterol in HDL [Mass ratio] 3.62 {ratio} Normal <5.10 [facility] Comment on above: Order Comment: Speci men Type: BLOOD SPECIMENOrdering Facility: [facility] Address: [address] [place] [address] Performed By: #### 2 4331-, ####[facility] LABCLIA [id number] [address] [address] [place] FASTING TIME 12 hrs Normal [facility] Comment on above: Order Comment: Speci men Type: BLOOD SPECIMENOrdering Facility: [facility] Address: [address] [place] [id number] Performed By: #### 2 4331-1, ####[facility] LABCLIA [id number] [place] [id number] [place] Triglyceride [Mass/Vol] 132 mg/dL Normal <150 [facility] Comment on above: Order Comment: Speci men Type: BLOOD SPECIMENOrdering Facility: [facility] Address: [address] [place] [address] Result Comment: <150 mg/dL, Normal 150-199 mg/dL, Borderline high 200-499 mg/dL, High >499 mg/dL, Very high Performed By: #### 2 4331-1, 28727-8 ####[facility] LABCLIA [id number] [facility] TH[facility] [id number] [place] [address] [place] Cardiology Visit Reporton Cardiology Visit Report [facility] [address] [place] [address] OFFICE VISIT Date of Service: 10/04/24 MR#: [id number] Acct: [id number] Name: WINSTON OHARA Rep #: [id number] : 1950 Provider: Dr. Sterling Thapa MD Age/Sex: 74/F Location: [facility] Status: Signed HPI HPI History of Present [...] Monitor Intake Visit Reasons: 6 M FU [employer] Recruiter Required: No Accompanied by: Self Is patient [...] or Nos (more content not included)... Normal [facility] S[facility] 09-23 [place] S[facility] W BR[place] * * *Final Report* * * DATE OF EXAM: Sep 23 2024 1:31PM [facility] 0582 - [facility] SCREENING W BRITTANEY / PROCEDURE REASON: Encounter for screening mammogram for breast cancer * * * * Physician Interpretation * * * * RESULT: [facility] [address] [place] [address] #[id number] - [facility] SCREENING W BRITTANEY HISTORY: 74 year-old patient [...] Aura Gu M.D. Electronically signed on: 09/24/2024 Manager Multimedia: MARIA TERESA Transcripan Date/Time: Sep 23 2024 1:18P Dictated by: AURA GU MD This examination was interpreted and the report reviewed and electronically signed by: AURA GU MD on Sep 24 2024 8:52AM EST [id number] Normal [facility] 12 Lead EKGon 09-16-2024 12 Lead EKG [facility] [address] [place] [address] 12 Lead EKG 09/16/24 1558 MR#: [id number] Acct: [id number] Name: WINSTON OHARA Rep #: [id number] : 1950 74 From: Sterling Thapa MD [...] Abnormal ECG Confirmed by STERLING THAPA MD ([id number]), newspaper or periodical editor KAEL MENDEZ ([id number]) on 09/17/2024 8:17:24 AM Referred By: Confirmed By: STERLING THAPA MD 09/17/24816 Date Sterling Thapa MD CC: Dr. Liliam Alaniz MD; Dr. Audie Nieves DO Signed Normal [facility] 12 Lead EKG [facility] [address] [place] [address] 12 Lead EKG 09/16/24 1357 MR#: [id number] Acct: [id number] Name: WINSTON OHARA Rep #: [id number] : 1950 74 From: Sterling Thapa MD [...] Abnormal ECG Confirmed by STERLING THAPA MD ([id number]), newspaper or periodical editor KAEL MENDEZ ([id number]) on 09/17/2024 8:17:10 AM Referred By: TA/GIAN Confirmed By: STERLING THAPA MD 09/17/24816 Date Sterling Thapa MD CC: Dr. Liliam Alaniz MD; Dr. Audie Nieves DO Signed Normal [facility] 12 Lead EKG performed by [facility] on 09-16-2024 12 Lead EKG performed by [facility] [address] [place] [address] 12 Lead EKG performed by [facility] 09/16/24 1315 MR#: [id number] Acct: [id number] Name: WINSTON OHARA Rep #: [id number] : 1950 74 From: Jozef Carr METAL CONTAINER MAKER METAL CONTAINER MAKER-C Attending Dr: Jozef Carr, METAL CONTAINER MAKER-C Status: DEP AMB Ordering Dr: Jozef Carr METAL CONTAINER MAKER METAL CONTAINER MAKER-C Date: 09/16/24 Location: [facility] Sex: F C Admitted: BMS/12 Lead EKG performed by BMS ECG Report Interpretation ---Atrial flutter-fibrillation -ST depression + Nonspecific T-abnormality -Nondiagnostic -possible digitalis effect, -consider subendocardial injury/ischemia. ABNORMAL Electronically signed on 09/19/2024 at 07:35 by Sterling Thapa Software Version [id number] 09/19/24 0740 Date Jozef Carr METAL CONTAINER MAKER METAL CONTAINER MAKER-C CC: Dr. Liliam Alaniz MD Date Dictated: 09/16/241314 Date Transcribed: 09/16/241314 Manager Multimedia: BELL Signed Normal [facility] Absolute lymphocyte countOrd ered By: ED PROVIDER on 09-16-2024 Lymphocytes Auto (Unsp spec) [#/Vol] 1.19 10*3/uL 0.83-4.51 [facility] Absolute neutrophil countOrd ered By: ED PROVIDER on 09-16-2024 Neutrophils (Bld) [#/Vol] 7.2 10*3/uL 2.0-7.7 [facility] Anion gap in Serum or Plasma Ordered By: Audie Nieves on 09-16-2024 Anion gap [Moles/Vol] 12 mmol/L 5-15 [facility] Automated lymphocyte count a s percentage of total leukocytesOrdered By: ED PROVIDER on 09-16-2024 Lymphocytes/100 WBC Auto (Unsp spec) 12.8 % Low 19-41 [facility] BUN/creatinine ratioOrdered By: Audie Nieves on 09-16-2024 Urea nitrogen/Creatinine [Mass ratio] 15.5 mg/mg 10- [facility] Basic Metabolic Profile (BMP )on 09-16-2024 BUN/CRE 15.5 RATIO Normal - [facility] Comment on above: Performed By: #### L 500.2500, L100.0100 #### [facility] [address] [place], [address] Calcium [Mass/Vol] 10.5 mg/dL Normal 7.6-11.0 [facility] Comment on above: Performed By: #### L 500.2500, L100.0100 #### [facility] [address] [place], [address] Chloride [Moles/Vol] 104 mmol/L Normal 98-108 [facility] Comment on above: Performed By: #### L 500.2500, L100.0100 #### [facility] [address] [place], [address] CO2 [Moles/Vol] 26.3 mmol/L Normal 21.0-32.0 [facility] Comment on above: Performed By: #### L 500.2500, L100.0100 #### [facility] [address] [place], [address] Creatinine [Mass/Vol] 0.86 mg/dL Normal 0.70-1.20 [facility] Comment on above: Performed By: #### L 500.2500, L100.0100 #### [facility] [address] [place], [address] ECRCL 56.04 ml/min Normal 50-250 [facility] Comment on above: Performed By: #### L 500.2500, L100.0100 #### [facility] [address] [place], [address] GAP 12 Normal 5-15 [facility] Comment on above: Performed By: #### L 500.2500, L100.0100 #### [facility] [address] [place], [address] GFR/1.73 sq M.predicted among non-blacks MDRD (S/P/Bld) [Vol rate/Area] 72 mL/min/{1.73_m2} Normal >60 [facility] Comment on above: Result Comment: mL/m in/1.73m2 CKD-EPI Creatinine Equation (2020) Performed By: #### L 500.2500, L100.0100 #### [facility] [address] [place], [address] Glucose [Mass/Vol] 106 mg/dL High 70-99 [facility] Comment on above: Performed By: #### L 500.2500, L100.0100 #### [facility] [address] [place], [address] Potassium [Moles/Vol] 4.1 mmol/L Normal 3.3-5.1 [facility] Comment on above: Performed By: #### L 500.2500, L100.0100 #### [facility] [address] [place], [address] Sodium [Moles/Vol] 142 mmol/L Normal 133-145 [facility] Comment on above: Performed By: #### L 500.2500, L100.0100 #### [facility] [address] [place], [address] Urea nitrogen [Mass/Vol] 13 mg/dL Normal 4-19 [facility] Comment on above: Performed By: #### L 500.2500, L100.0100 #### [facility] [address] [place], [address] Basophil percentageOrdered B y: ED PROVIDER on 09-16-2024 Basophils/100 WBC (Bld) 0.6 % 0-1 [facility] CBC W/Diff, Automatedon 08-31 Absolute Lymph 1.19 X10 3/uL Normal 0.83-4.51 [facility] Comment on above: Performed By: #### L 500.2500, L100.0100 #### [facility] [address] [place], [address] Absolute Neut 7.2 X10 3/uL Normal 2.0-7.7 [facility] Comment on above: Performed By: #### L 500.2500, L100.0100 #### [facility] [address] [place], [address] Basophils/100 WBC (Bld) 0.6 % Normal 0-1 [facility] Comment on above: Performed By: #### L 500.2500, L100.0100 #### [facility] [address] [place], [address] Eosinophils/100 WBC (Bld) 1.6 % Normal 0-5 [facility] Comment on above: Performed By: #### L 500.2500, L100.0100 #### [facility] [address] [place], [address] Erythrocyte distribution width (RBC) [Ratio] 12.9 % Normal 11.6-14.6 [facility] Comment on above: Performed By: #### L 500.2500, L100.0100 #### [facility] [address] [place], [address] Hematocrit (Bld) [Volume fraction] 46.3 % Normal 37-47 [facility] Comment on above: Performed By: #### L 500.2500, L100.0100 #### [facility] [address] [place], [address] Hemoglobin (Bld) [Mass/Vol] 15.3 g/dL High 12.0-15.0 [facility] Comment on above: Performed By: #### L 500.2500, L100.0100 #### [facility] [address] [place], [address] IG% 0.400 Normal 0.0-0.9 [facility] Comment on above: Result Comment: IG% - Immature Granulocytes (promyelocytes, myelocytes and metamyelocytes) > 1% indicates that a LEFT SHIFT is Present. Performed By: #### L 500.2500, L100.0100 #### [facility] [address] [place], [address] Lymphocytes/100 WBC (Bld) 12.8 % Low 19-41 [facility] Comment on above: Performed By: #### L 500.2500, L100.0100 #### [facility] [address] [place], [address] MCH (RBC) [Entitic mass] 30.2 pg Normal 27.0-32.0 [facility] Comment on above: Performed By: #### L 500.2500, L100.0100 #### [facility] [address] [place], [address] MCHC (RBC) [Mass/Vol] 33.0 g/dL Normal 32-36 [facility] Comment on above: Performed By: #### L 500.2500, L100.0100 #### [facility] [address] [place], [address] MCV (RBC) [Entitic vol] 91.3 fL Normal 81-99 [facility] Comment on above: Performed By: #### L 500.2500, L100.0100 #### [facility] [address] [place], [address] Monocytes/100 WBC (Bld) 7.0 % Normal 0-10 [facility] Comment on above: Performed By: #### L 500.2500, L100.0100 #### [facility] [address] [place], [address] Neutrophils/100 WBC (Bld) 77.6 % High 47-70 [facility] Comment on above: Performed By: #### L 500.2500, L100.0100 #### [facility] [address] [place], [address] Nucleated RBC (Bld) [#/Vol] 0 10*3/uL Normal 0-5 [facility] Comment on above: Performed By: #### L 500.2500, L100.0100 #### [facility] [address] [place], [address] Platelet mean volume (Bld) [Entitic vol] 9.5 fL Normal 6.2-12.0 [facility] Comment on above: Performed By: #### L 500.2500, L100.0100 #### [facility] [address] [place], [address] Platelets (Bld) [#/Vol] 297 10*3/uL Normal 150-450 [facility] Comment on above: Performed By: #### L 500.2500, L100.0100 #### [facility] [address] [place], [address] RBC (Bld) [#/Vol] 5.07 10*6/uL Normal 4.2-5.4 [facility] Comment on above: Performed By: #### L 500.2500, L100.0100 #### [facility] [address] [place], [address] RDW SD 42.9 fl Normal 35.1-43.9 [facility] Comment on above: Performed By: #### L 500.2500, L100.0100 #### [facility] [address] [place], [address] WBC (Bld) [#/Vol] 9.3 10*3/uL Normal 4.4-11.0 [facility] Comment on above: Performed By: #### L 500.2500, L100.0100 #### [facility] [address] [facility] [place], [address] Carbon dioxide, total [Moles /volume] in Central venous bloodOrdered By: Audie Nieves on 09-16-2024 CO2 [Moles/Vol] 26.3 mmol/L 21.0-32.0 [facility] Chest 1 View (Portable)on Chest 1 View (Portable) [facility] Imaging Services [address] [place] [address] Chest 1 View (Portable) MR#: [id number] Acct: [id number] Name: WINSTON OHARA Rep #: [id number] : 1950 F 74 From: Jozef Sevilla PCP: Dr. Liliam Alaniz MD Status: REG ER Study: Chest 1 View (Portable) Date of Exam: 09/16/24 Exam# [id number] Ordering Dr: Audie Nieves DO PROCEDURE: CHEST 1 VIEW (PORTABLE) 09/16/2024 REASON FOR EXAM: CHEST PAIN TECHNIQUE: Frontal view of the chest. COMPARISON: 06 February 2021 FINDINGS: The heart size is normal. The lungs are clear. Demineralization of the bones. Stable examination when compared to prior. RAD/Chest 1 View (Portable) IMPRESSION: No measurable change. Reading Location: [id number] CC: Dr. Liliam Alaniz MD; Dr. Audie Nieves DO Manager Multimedia: Signed Normal [facility] Chloride assayOrdered By: Nick Nieves on 09-16-2024 Chloride [Moles/Vol] 104 mmol/L 98-108 [facility] Emergency Department Summary on 09-16-2024 Emergency Department Summary [facility] Medical Records Department [address] [place] [address] Emergency Department Summary 09/16/24 MR#: [id number] Acct: [id number] Name: WINSTON OHARA Rep #: [id number] : 1950 74 From: Audie Hoskins PCP: Dr. Liliam Alaniz MD Status:DEP ER Location: ED HPI History of Present [...] [2] Res (more content not included)... Normal [facility] Eosinophil percentageOrdered By: ED PROVIDER on 09-16-2024 Eosinophils/100 WBC (Bld) 1.6 % 0-5 [facility] Erythrocyte distribution wid th ratioOrdered By: ED PROVIDER on 09-16-2024 Erythrocyte distribution width (RBC) [Ratio] 12.9 % 11.6-14.6 [facility] Erythrocyte distribution wid th standard deviationOrdered By: ED PROVIDER on 09-16-2024 Erythrocyte distribution width (RBC) [Entitic vol] 42.9 fL 35.1-43.9 [facility] Erythrocyte distribution width (RBC) [Ratio] 42.9 fl 35.1-43.9 [facility] Estimation of creatinine carter aranceOrdered By: Audie Nieves on 09-16-2024 Estimated Creatinine Clearance Calc 56.04 ml/min 50-250 [facility] GFR/1.73 sq M.predicted ahsan g non-blacks MDRD (S/P/Bld) [Vol rate/Area]Ordered By: Audie Nieves on 09-16-2024 Estimated GFR (MDRD) Non-Af Amer 72 >60 [facility] Comment on above: mL/min/1.73m2 CKD-EP I Creatinine Equation (2020) Glomerular filtration rate ( GFR) estimation/1.73 sq m using serum, plasma, or whole bOrdered By: Audie Nieves on 09-16-2024 GFR/1.73 sq M.predicted among non-blacks MDRD (S/P/Bld) [Vol rate/Area] 72 mL/min/{1.73_m2} >60 [facility] Comment on above: mL/min/1.73m2 CKD-EP I Creatinine Equation (2020) Hematocrit Auto (Bld) [Volum e fraction]Ordered By: ED PROVIDER on 09-16-2024 Hematocrit (Bld) [Volume fraction] 46.3 % 37-47 [facility] Hemoglobin measurementOrdere d By: ED PROVIDER on 09-16-2024 Hemoglobin (Bld) [Mass/Vol] 15.3 g/dL High 12.0-15.0 [facility] Immature granulocytes/100 WB C Auto (Bld)Ordered By: ED PROVIDER on 09-16-2024 Immature granulocytes/100 WBC (Bld) 0.400 % 0.0-0.9 [facility] Comment on above: IG% - Immature Granu locytes (promyelocytes, myelocytes and metamyelocytes) > 1% indicates that a LEFT SHIFT is Present. International normalized rat io (INR) calculationOrdered By: Audie Nieves on 09-16-2024 INR Coag (Bld) [Relative time] 1.5 {INR} [facility] L499.0042on 09-16-2024 Trop T High Sen Normal <=14 [facility] Comment on above: Result Comment: PT D EP FROM ED Performed By: #### L 500.2500, L100.0100 #### [facility] [address] [place], [address] L499.0043on 09-16-2024 Trop T High Sen Normal <=14 [facility] Comment on above: Result Comment: Canc elled via OM: Order cancelled - Patient discharged Performed By: #### L 499.0043 #### [facility] [address] [place], [address] L501.4021on 09-16-2024 Trop T High Sen 13 ng/L Normal <=14 [facility] Comment on above: Performed By: #### L 500.2500, L100.0100 #### [facility] [address] [place], [address] Lymphocytes Auto (Unsp spec) [#/Vol]Ordered By: ED PROVIDER on 09-16-2024 Lymphocytes (Bld) [#/Vol] 1.19 10*3/uL 0.83-4.51 [facility] Lymphocytes/100 WBC Auto (Un sp spec)Ordered By: ED PROVIDER on 09-16-2024 Lymphocytes/100 WBC (Bld) 12.8 % Low 19-41 [facility] MCV (mean corpuscular volume ) determinationOrdered By: ED PROVIDER on 09-16-2024 MCV (RBC) [Entitic vol] 91.3 fL 81-99 [facility] Mean corpuscular hemoglobin (MCH) determinationOrdered By: ED PROVIDER on 09-16-2024 MCH (RBC) [Entitic mass] 30.2 pg 27.0-32.0 [facility] Mean corpuscular hemoglobin concentration (MCHC) determinationOrdered By: ED PROVIDER on 09-16-2024 MCHC (RBC) [Mass/Vol] 33.0 g/dL 32-36 [facility] Mean platelet volume determi nationOrdered By: ED PROVIDER on 09-16-2024 Platelet mean volume (Bld) [Entitic vol] 9.5 fL 6.2-12.0 [facility] Monocyte percentageOrdered B y: ED PROVIDER on 09-16-2024 Monocytes/100 WBC (Bld) 7.0 % 0-10 [facility] Neutrophil percentageOrdered By: ED PROVIDER on 09-16-2024 Neutrophils/100 WBC (Bld) 77.6 % High 47-70 [facility] No Panel InformationOrdered By: Audie Nieves on 09-16-2024 Troponin T High Sensitivity 13 ng/L <14 [facility] Nucleated red blood cell per centageOrdered By: ED PROVIDER on 09-16-2024 Nucleated RBC/100 WBC (Bld) [Ratio] 0 % 0-5 [facility] Platelet countOrdered By: ED PROVIDER on 09-16-2024 Platelets (Bld) [#/Vol] 297 10*3/uL 150-450 [facility] Potassium (Unsp spec) [Mass/ Vol]Ordered By: Audie Nieves on 09-16-2024 Potassium [Moles/Vol] 4.1 mmol/L 3.3-5.1 [facility] Potassium measurement (mass/ volume)Ordered By: Audie Nieves on 09-16-2024 Potassium (Unsp spec) [Mass/Vol] 4.1 mmol/L 3.3-5.1 [facility] Prothrombin Time w/INRon INR Coag (PPP) [Relative time] 1.5 {INR} Normal [facility] Comment on above: Performed By: #### L 500.2500, L100.0100 #### [facility] [address] [place], [address] PT Coag (PPP) [Time] 18.8 s High 11.7-14.9 [facility] Comment on above: Performed By: #### L 500.2500, L100.0100 #### [facility] [address] [place], [address] Prothrombin timeOrdered By: Audie Nieves on 09-16-2024 PT Coag (PPP) [Time] 18.8 s High 11.7-14.9 [facility] RBC Auto (Bld) [#/Vol]Ordere d By: ED PROVIDER on 09-16-2024 RBC (Bld) [#/Vol] 5.07 10*6/uL 4.2-5.4 [facility] Serum creatinine measurement (mass/volume)Ordered By: Audie Nieves on 09-16-2024 Creatinine [Mass/Vol] 0.86 mg/dL 0.70-1.20 [facility] Serum glucose measurement (m ass/volume)Ordered By: Audie Nieves on 09-16-2024 Glucose [Mass/Vol] 106 mg/dL High 70-99 [facility] Serum or plasma calcium hay urement (mass/volume)Ordered By: Audie Nieves on 09-16-2024 Calcium [Mass/Vol] 10.5 mg/dL 7.6-11.0 [facility] Serum or plasma urea nitroge n measurement (mass/volume)Ordered By: Audie Nieves on 09-16-2024 Urea nitrogen [Mass/Vol] 13 mg/dL 4-19 [facility] Sodium levelOrdered By: Audie Nieves on 09-16-2024 Sodium [Moles/Vol] 142 mmol/L 133-145 [facility] White blood cell (WBC) count Ordered By: ED PROVIDER on 09-16-2024 WBC (Bld) [#/Vol] 9.3 10*3/uL 4.4-11.0 [facility] CNOVon 08-29-2024 CNOV Office Visit (UCWSTR ) WINSTON OHARA ([id number]) 1950 F NFR Date Time Provider Department 08/29/24 7:30 PM REJI [facility]OM[facility] During your visit today, we recorded the following information about you: Temperature Pulse Respiration Blood pressure 101.6 degrees 63/minute 20/minute 141/71 Reji Thomason APRN.[employer]ER 08/29/2024 8:09 PM Signed Molnupiravir Eligibility and Patient Discussion [facility] Formulary Restriction Criteria: Adult outpatients 18 [...] to proceeding (more content not included)... Normal [facility] CNPNon 08-29-2024 CNPN Telephone (INTMWS) WINSTON OHARA ([id number]) 1950 F NFR Date Time Provider Department [...] [facility]. Also she states she cannot do VV. She and her will come in to be seen in [facility] this evening. Allergies As of [...] Encounter Status:Closed by CHICA SAPP on 08/29/24 [facility] 06-14-2024 CNOV Office Visit (INTMWS ) WINSTON OHARA ([id number]) 1950 F NFR Date Time Provider Department 06/14/24 2:20 PM LILIAM ALANIZ INTMWS During your visit today, we recorded the following information about you: Pulse Respiration Blood pressure Weight 64/minute 12/minute 134/68 69 kg Height 1.626 m Liliam Alaniz MD 06/14/2024 4:09 PM Signed This note was created using [facility]. Subjective Winston Ohara is a 74 year [...] 2 Spra (more content not included)... Normal [facility] 25(OH)D[facility] 25-hydroxyvitamin D3 [Mass/Vol] 27.4 ng/mL Low 31.0-80.0 [facility] Comment on above: Order Comment: Speci eusebio Type: BLOOD SPECIMENOrdering Facility: [facility] Address: [address] [place] [address] Result Comment: Clas sification of 25 [place] Vitamin D status: Deficiency/Insufficiency: < or = 30 ng/ml. Sufficiency/Optimal Levels: 31-80 ng/mL Toxicity: > 100 ng/mL. Test performed by chemiluminescent immunoassay. Performed By: #### 1 989-3 ####[facility] LABCL[facility] [id number] [place] [address] [place] CBC panel Auto (Bld)on 06-10 Erythrocyte distribution width (RBC) [Ratio] 13.2 % Normal 11.5-15.0 [facility] Comment on above: Order Comment: Reanna kaplan Type: BLOOD SPECIMENOrdering Facility: [facility] Address: [address] [place] [address] Performed By: #### 5 8410-2 ####[facility]CL[facility] [id number] [place] [address] [place] Hematocrit (Bld) [Volume fraction] 42.8 % Normal 36.0-46.0 [facility] Comment on above: Order Comment: Reanna kaplan Type: BLOOD SPECIMENOrdering Facility: [facility] Address: [address] [place] [address] Performed By: #### 5 8410-2 ####[facility] LABCLIA [id number] [place] [address] [place] Hemoglobin (Bld) [Mass/Vol] 13.5 g/dL Normal 11.5-15.5 [facility] Comment on above: Order Comment: Speci men Type: BLOOD SPECIMENOrdering Facility: [facility] Address: [address] [place] [address] Performed By: #### 5 8410-2 ####[facility] LABIA [id number] [place] [address] [place] MCH (RBC) [Entitic mass] 30.3 pg Normal 26.0-34.0 [facility] Comment on above: Order Comment: Speci men Type: BLOOD SPECIMENOrdering Facility: [facility] Address: [address] [place] [address] Performed By: #### 5 8410-2 ####[facility] [id number] [place] [address] [place] MCHC (RBC) [Mass/Vol] 31.5 g/dL Normal 30.5-36.0 [facility] Comment on above: Order Comment: Speci men Type: BLOOD SPECIMENOrdering Facility: [facility] Address: [address] [place] [address] Performed By: #### 5 8410-2 ####[facility] [id number] [place] [address] [place] MCV (RBC) [Entitic vol] 96.0 fL Normal 80.0-100.0 C [facility] Comment on above: Order Comment: Speci men Type: BLOOD SPECIMENOrdering Facility: [facility] Address: [address] [place] [address] Performed By: #### 5 8410-2 ####[facility] [id number] [place] [address] [place] Nucleated RBC (Bld) [#/Vol] 10*3/uL Normal <0.01 [facility] Comment on above: Order Comment: Speci men Type: BLOOD SPECIMENOrdering Facility: [facility] Address: [address] [place] [address] Performed By: #### 5 8410-2 ####[facility] LABCLIA [id number] [place] [address] [place] Platelet mean volume (Bld) [Entitic vol] 10.2 fL Normal 9.0-12.7 [facility] Comment on above: Order Comment: Speci men Type: BLOOD SPECIMENOrdering Facility: [facility] Address: [address] [place] [address] Performed By: #### 5 8410-2 ####[facility] LABCLIA [id number] [place] [address] [place] Platelets (Bld) [#/Vol] 203 10*3/uL Normal 150-400 [facility] Comment on above: Order Comment: Speci men Type: BLOOD SPECIMENOrdering Facility: [facility] Address: [address] [place] [address] Performed By: #### 5 8410-2 ####[facility] LABCLIA [id number] [place] [address] [place] RBC (Bld) [#/Vol] 4.46 10*6/uL Normal 3.90-5.20 [facility] Comment on above: Order Comment: Speci men Type: BLOOD SPECIMENOrdering Facility: [facility] Address: [address] [place] [address] Performed By: #### 5 8410-2 ####[facility] LABCLIA [id number] [place] [address] [place] WBC (Bld) [#/Vol] 5.73 10*3/uL Normal 3.70-11.00 [facility] Comment on above: Order Comment: Speci men Type: BLOOD SPECIMENOrdering Facility: [facility] Address: [address] [place] [address] Performed By: #### 5 8410-2 ####[facility] LABCLIA [id number] [place] [address] [place] Comprehensive metabolic 2000 panelon 06-10-2024 Albumin [Mass/Vol] 4.3 g/dL Normal 3.9-4.9 [facility] Comment on above: Order Comment: Speci men Type: BLOOD SPECIMENOrdering Facility: [facility] Address: [address] [place] [address] Performed By: #### L IPNF, 52089-1 ####[facility] LABCLIA [id number] [place] [address] [place] ALP [Catalytic activity/Vol] 131 U/L High 34-123 [facility] Comment on above: Order Comment: Speci men Type: BLOOD SPECIMENOrdering Facility: [facility] Address: [address] [place] [address] Performed By: #### L IPNF, 47209-1 ####[facility] LABCLIA [id number] [place] [address] [place] ALT [Catalytic activity/Vol] 18 U/L Normal 7-38 [facility] Comment on above: Order Comment: Speci men Type: BLOOD SPECIMENOrdering Facility: [facility] Address: [address] [place] [address] Performed By: #### L IPNF, 66830-8 ####[facility] LABCLIA [id number] [place] [address] [place] Anion gap [Moles/Vol] 12 mmol/L Normal 8-15 [facility] Comment on above: Order Comment: Speci men Type: BLOOD SPECIMENOrdering Facility: [facility] Address: [address] [place] [address] Performed By: #### L IPNF, 87950-0 ####[facility] LABCLIA [id number] [place] [address] [place] AST [Catalytic activity/Vol] 29 U/L Normal 13-35 [facility] Comment on above: Order Comment: Speci men Type: BLOOD SPECIMENOrdering Facility: [facility] Address: [address] [place] [address] Performed By: #### L IPNF, 66839-8 ####[facility] LABCLIA [id number] [place] [address] [place] Bilirubin [Mass/Vol] 0.7 mg/dL Normal 0.2-1.3 [facility] Comment on above: Order Comment: Speci men Type: BLOOD SPECIMENOrdering Facility: [facility] Address: [address] [place] [address] Performed By: #### L IPNF, 19851-0 ####[facility] LABCLIA [id number] [place] [address] [place] Calcium [Mass/Vol] 9.8 mg/dL Normal 8.5-10.2 [facility] Comment on above: Order Comment: Speci men Type: BLOOD SPECIMENOrdering Facility: [facility] Address: [address] [place] [address] Performed By: #### L IPNF, 48149-1 ####[facility] LABCLIA [id number] [place] [address] [place] Chloride [Moles/Vol] 104 mmol/L Normal 98-107 [facility] Comment on above: Order Comment: Speci men Type: BLOOD SPECIMENOrdering Facility: [facility] Address: [address] [place] [address] Performed By: #### L IPNF, 40272-9 ####[facility] LABCLIA [id number] [place] [id number] [place] CO2 [Moles/Vol] 24 mmol/L Normal 22-30 [facility] Comment on above: Order Comment: Speci men Type: BLOOD SPECIMENOrdering Facility: [facility] Address: [address] [place] [address] Performed By: #### L IPNF, 30106-4 ####[facility] LABCLIA [id number] [place] [address] [place] Creatinine [Mass/Vol] 0.76 mg/dL Normal 0.58-0.96 [facility] Comment on above: Order Comment: Speci men Type: BLOOD SPECIMENOrdering Facility: [facility] Address: [address] [place] [address] Performed By: #### L IPNF, 55965-4 ####[facility] LABIA [id number] [place] [address] [place] Creatinine and Glomerular filtration rate.predicted panel (S/P/Bld) 83 mL/min/1.73m??? Normal >=60 [facility] Comment on above: Order Comment: Speci men Type: BLOOD SPECIMENOrdering Facility: [facility] Address: [address] [place] [address] Result Comment: Melissa mated Glomerular Filtration Rate [...] accurately reflect actual GFR. Performed By: #### L IPNF, 62424-4 ####[facility] LABIA [id number] [place] [address] [place] Glucose [Mass/Vol] 89 mg/dL Normal 74-99 [facility] Comment on above: Order Comment: Speci men Type: BLOOD SPECIMENOrdering Facility: [facility] Address: [address] [place] [address] Result Comment: The [place] Diabetes Association (ADA) provides guidance for cutoff [...] Standards of Medical Care in Diabetes 2016, [employer]. Diabetes Care. 2016.39(Suppl 1). Performed By: #### L IPNF, 99567-4 ####[facility] LABCLIA [id number] [place] [address] [place] Potassium [Moles/Vol] 4.4 mmol/L Normal 3.7-5.1 [facility] Comment on above: Order Comment: Speci men Type: BLOOD SPECIMENOrdering Facility: [facility] Address: [address] [place] [address] Performed By: #### L IPNF, 28272-9 ####[facility] LABCLIA [id number] [place] [address] [place] Protein [Mass/Vol] 6.9 g/dL Normal 6.3-8.0 [facility] Comment on above: Order Comment: Speci men Type: BLOOD SPECIMENOrdering Facility: [facility] Address: [address] [place] [address] Performed By: #### L IPNF, 05097-5 ####[facility] LABCLIA [id number] [place] [address] [place] Sodium [Moles/Vol] 140 mmol/L Normal 136-144 [facility] Comment on above: Order Comment: Speci men Type: BLOOD SPECIMENOrdering Facility: [facility] Address: [address] [place] [address] Performed By: #### L IPNF, 39904-5 ####[facility] LABCLIA [id number] [place] [address] [place] Urea nitrogen [Mass/Vol] 17 mg/dL Normal 7-21 [facility] [facility] Comment on above: Order Comment: Speci men Type: BLOOD SPECIMENOrdering Facility: [facility] Address: [address] [place] [address] Performed By: #### L IPNF, 58868-2 ####[facility] LABCLIA [id number] [place] [address] [place] LIPID PANEL, NONFASTINGon Cholesterol [Mass/Vol] 221 mg/dL High <200 [facility] Comment on above: Order Comment: Speci men Type: BLOOD SPECIMENOrdering Facility: [facility] Address: [address] [place] [address] Result Comment: <200 mg/dL, Desirable 200-239 mg/dL, Borderline high >239 mg/dL, High Performed By: #### L IPNF, 61407-6 ####[facility] LABCLIA [id number] [place] [address] [place] HDL CHOLESTEROL, NF 60 mg/dL Normal >39 [facility] Comment on above: Order Comment: Speci men Type: BLOOD SPECIMENOrdering Facility: [facility] Address: [address] [place] [address] Result Comment: 40-5 9 mg/dL, Acceptable >59 mg/dL, High: Negative risk factor for coronary heart disease <40 mg/dL, Low: Positive risk factor for coronary heart disease Performed By: #### L IPNF, 95664-3 ####[facility] LABCLIA [id number] [place] [address] [place] LDL CHOLESTEROL, NF 137 mg/dL High <100 [facility] Comment on above: Order Comment: Speci men Type: BLOOD SPECIMENOrdering Facility: [facility] Address: [address] [place] [address] Result Comment: <100 mg/dL, Optimal 100-129 mg/dL, Near optimal/above optimal 130-159 mg/dL, Borderline high 160-189 mg/dL, High >189 mg/dL, Very high Secondary prevention optimal LDL Cholesterol levels are recommended to be < 70 mg/dL Performed By: #### L FIGUEROA, ####[facility] LABCLIA [id number] [place] [address] [place] LDL/HDL RATIO, NF 2.28 mg/dL Normal <2.54 [facility] Comment on above: Order Comment: Reanna kaplan Type: BLOOD SPECIMENOrdering Facility: [facility] Address: [address] [place] [address] Result Comment: Refdavid novace: 1. National Cholesterol Education Program ATP III Guideline At-A-Glance Quick Desk Reference: National Heart, Lung, and Blood [employer]. National Institutes of Health. 2001: NIH Publication No. 01-3305. 2. An International Atherosclerosis Society position paper: global recommendations for the management of dyslipidemia: executive summary, Atherosclerosis. 2014: 232(2):410-413. Performed By: #### L FIGUEROA, ####[facility] LABIA [id number] [place] [address] [place] NON HDL CHOL, NF 161 mg/dL High <130 [facility] Comment on above: Order Comment: Reanna kaplan Type: BLOOD SPECIMENOrdering Facility: [facility] Address: [address] [place] [address] Result Comment: <130 mg/dL, Optimal 130-159 mg/dL, Near optimal/above optimal 160-189 mg/dL, Borderline high 190-219 mg/dL, High >219 mg/dL, Very high Secondary prevention optimal non HDL Cholesterol levels are recommended to be <100 mg/dL Performed By: #### L FIGUEROA, ####[facility] LABCLIA [id number] [place] [address] [place] T CHOL/HDL RATIO NF 3.68 mg/dL Normal <5.10 [facility] Comment on above: Order Comment: Speci men Type: BLOOD SPECIMENOrdering Facility: [facility] Address: [address] [place] [address] Performed By: #### L IPNF, 74090-2 ####[facility] LABCLIA [id number] [place] [address] [place] TRIGLYCERIDES, NF 122 mg/dL Normal <150 [facility] Comment on above: Order Comment: Speci men Type: BLOOD SPECIMENOrdering Facility: [facility] Address: [address] [place] [address] Result Comment: <150 mg/dL, Normal 150-199 mg/dL, Borderline high 200-499 mg/dL, High >499 mg/dL, Very high Performed By: #### L IPNF, 14035-7 ####[facility] LABCLIA [id number] [place] [address] [place] VLDL CHOLESTEROL, NF 24 mg/dL Normal <30 [facility] Comment on above: Order Comment: Speci men Type: BLOOD SPECIMENOrdering Facility: [facility] Address: [address] [place] [address] Performed By: #### L IPNF, 30577-2 ####[facility] LABCLIA [id number] [place] [address] [place] 12 Lead EKG performed by [facility] on 04-30-2024 12 Lead EKG performed by [facility] [address] [place] [address] 12 Lead EKG performed by [facility] 04/30/24 0746 MR#: [id number] Acct: [id number] Name: W[place]ON OHARA Rep #: [id number] : 1950 74 From: Teofilo Martinez Attending Dr: CHANCE Anand Status: DEP AMB Ordering Dr: Teofilo Dobson Date: 04/03 03/26 Location: [facility] Sex: F C Admitted: [facility]/12 Lead EKG performed by [facility] ECG Report Interpretation ---Sinus Rhythm WITHIN NORMAL LIMITSElectronically signed on 04/30/2024 at 14:32 by Sterling [employer] Software Version [id number] 04/30/24 1435 Date Teofilo FLETCHER CC: Dr. Liliam Alaniz MD Date Dictated: 04/30/24745 Date Transcribed: 04/30/24745 Manager Multimedia: LOUISA Signed Normal [facility] Cardiology Visit Reporton Cardiology Visit Report [facility] [address] [place] [address] OFFICE VISIT Date of Service: 04/30/24 MR#: [id number] Acct: [id number] Name: WINSTON OHARA Rep #: [id number] : 1950 Provider: CHANCE Peacock Age/Sex: 74/F Location: [facility] Status: Signed HPI [facility] History of Present Illness Details: W[place]ON [...] (%) 98 Intake Visit Reasons: 7 m fu [employer] Recruiter Required: No Is patient in pain?: No [...] for headache(s (more content not included)... Normal [facility] Basophil percentageOrdered B y: [place] Alanis on 11-06-2023 Chloride [Moles/Vol] 105 mmol/L 98-107 [facility] Glucose [Mass/Vol] 134 mg/dL 74-106 [facility] Comment on above: Fasting Glucose resu lt greater than or equal to 126 mg/dL suggests DIABETES MELLITUS per A.D.A. criteria. Potassium [Moles/Vol] 4.7 mmol/L 3.5-5.1 [facility] Comment on above: Slight Hemolysis, Re sult may be falsely increased. Sodium [Moles/Vol] 137 mmol/L 136-145 [facility] Laboratory - Chemistry and C hemistry - challengeOrdered By: Sterling Thapa on 11-06-2023 CO2 [Moles/Vol] 29.0 mmol/L 21.0-32.0 [facility] Urea nitrogen/Creatinine [Mass ratio] 21.3 mg/mg 10-20 [facility] No Panel InformationOrdered By: Sterling Thapa on 11-06-2023 Estimated GFR (MDRD) Amer 76 mL/min >60 [facility] Comment on above: GFR Calc Estimated GFR (MDRD) Non-Af Amer 62 mL/min >60 [facility] Comment on above: Non- GFR Calc Serum or plasma calcium hay urement (mass/volume)Ordered By: Sterling Thapa on 11-06-2023 Calcium [Mass/Vol] 9.9 mg/dL 8.5-10.1 [facility] Serum or plasma creatinine m easurement (mass/volume)Ordered By: Sterling Thapa on 11-06-2023 Creatinine [Mass/Vol] 0.94 mg/dL 0.55-1.02 [facility] Comment on above: The validity of the calculated GFR & GFRAA in patients over 70 years has not been determined. Clinical correlation is essential. Serum or plasma urea nitroge n measurement (mass/volume)Ordered By: Sterling Thapa on 11-06-2023 Urea nitrogen [Mass/Vol] 20 mg/dL 01-17 [facility] Thin prep Papanicolaou smear with manual screeningOrdered By: Sterling Thapa on 11-06-2023 Thin prep Papanicolaou smear with manual screening 3 5-15 [facility] Laboratory - Chemistry and C hemistry - challengeOrdered By: Sterling Thapa on 10-19-2023 Natriuretic peptide B (Bld) [Mass/Vol] 167.8 pg/mL 0-100 [facility] Absolute lymphocyte countOrd ered By: Jf Gallegos on 04-13-2023 Lymphocytes Auto (Unsp spec) [#/Vol] 1.10 10*3/uL 0.83-4.51 [facility] Basophil percentageOrdered B y: Jf Gallegos on 04-13-2023 Basophils/100 WBC (Bld) 0.8 % 0-1 [facility] Chloride [Moles/Vol] 107 mmol/L 98-107 [facility] Eosinophils/100 WBC (Bld) 2.3 % 0-5 [facility] Glucose [Mass/Vol] 119 mg/dL 74-106 [facility] Comment on above: Fasting Glucose resu lt from 100 to 125 mg/dL suggests IMPAIRED HOMEOSTASIS per A.D.A. criteria. Neutrophils (Bld) [#/Vol] 4.5 10*3/uL 2.0-7.7 [facility] Neutrophils/100 WBC (Bld) 71.9 % 47-70 [facility] Potassium [Moles/Vol] 4.5 mmol/L 3.5-5.1 [facility] Sodium [Moles/Vol] 137 mmol/L 136-145 [facility] WBC (Bld) [#/Vol] 6.2 10*3/uL 4.4-11.0 [facility] Blood erythrocytes count (nu mber/volume)Ordered By: Jf Gallegos on 04-13-2023 RBC (Bld) [#/Vol] 5.05 10*6/uL 4.2-5.4 [facility] Blood hemoglobin measurement (mass/volume)Ordered By: Jf Gallegos on 04-13-2023 Hemoglobin (Bld) [Mass/Vol] 15.3 g/dL 12.0-15.0 [facility] Blood lymphocytes/100 leukoc ytesOrdered By: Jf Gallegos on 04-13-2023 Lymphocytes/100 WBC (Bld) 17.7 % 19-41 [facility] Blood monocytes/100 leukocyt esOrdered By: Jf Gallegos on 04-13-2023 Monocytes/100 WBC (Bld) 6.8 % 0-10 [facility] Blood platelet mean volumeOr dered By: Jf Gallegos on 04-13-2023 Platelet mean volume (Bld) [Entitic vol] 10.1 fL 6.2-12.0 [facility] Determination of erythrocyte mean corpuscular volume (MCV)Ordered By: Jf Gallegos on 04-13-2023 MCV (RBC) [Entitic vol] 94.3 fL 81-99 [facility] Hematocrit Auto (Bld) [Volum e fraction]Ordered By: Jf Gallegos on 04-13-2023 Hematocrit (Bld) [Volume fraction] 47.6 % 37-47 [facility] Laboratory - Chemistry and C hemistry - challengeOrdered By: Jf Gallegos on 04-13-2023 CO2 [Moles/Vol] 24.0 mmol/L 21.0-32.0 [facility] Magnesium [Mass/Vol] 2.4 mg/dL 1.6-2.6 [facility] Urea nitrogen/Creatinine [Mass ratio] 18.4 mg/mg 10-20 [facility] Laboratory - Hematology and Cell countsOrdered By: Jf Gallegos on 04-13-2023 Erythrocyte distribution width (RBC) [Entitic vol] 43.5 fL 35.1-43.9 [facility] Erythrocyte distribution width (RBC) [Ratio] 12.5 % 11.6-14.6 [facility] Immature granulocytes/100 WBC (Bld) 0.500 % 0.0-0.9 [facility] Comment on above: IG% - Immature Granu locytes (promyelocytes, myelocytes and metamyelocytes) > 1% indicates that a LEFT SHIFT is Present. MCH (RBC) [Entitic mass] 30.3 pg 27.0-32.0 [facility] Nucleated RBC/100 WBC (Bld) [Ratio] 0 % 0-5 [facility] MCHC Auto (RBC) [Mass/Vol]Or dered By: Jf Gallegos on 04-13-2023 MCHC (RBC) [Mass/Vol] 32.1 g/dL 32-36 [facility] No Panel InformationOrdered By: Jf Gallegos on 04-13-2023 Estimated Creatinine Clearance Calc 45.47 ml/min [facility] Estimated GFR (MDRD) Amer 72 mL/min >60 [facility] Comment on above: GFR Calc Estimated GFR (MDRD) Non-Af Amer 60 mL/min >60 [facility] Comment on above: Non- GFR Calc Troponin I High Sensitivity 7 pg/mL 3.0-54.0 [facility] Comment on above: Please Note: [place] t Units and Gender Specific Reference Ranges. For more information see Policy Stat Procedure [place] High Sensitivity Troponin (TNIH) and attachments. Platelets bldOrdered By: Ho Gallegos on 04-13-2023 Platelets (Bld) [#/Vol] 230 10*3/uL 150-450 [facility] Serum or plasma calcium hay urement (mass/volume)Ordered By: Jf Gallegos on 04-13-2023 Calcium [Mass/Vol] 9.4 mg/dL 8.5-10.1 [facility] Serum or plasma creatinine m easurement (mass/volume)Ordered By: Jf Gallegos on 04-13-2023 Creatinine [Mass/Vol] 0.98 mg/dL 0.55-1.02 [facility] Comment on above: The validity of the calculated GFR & GFRAA in patients over 70 years has not been determined. Clinical correlation is essential. Serum or plasma urea nitroge n measurement (mass/volume)Ordered By: Jf Gallegos on 04-13-2023 Urea nitrogen [Mass/Vol] 18 mg/dL 7-18 [facility] Thin prep Papanicolaou smear with manual screeningOrdered By: Jf Gallegos on 04-13-2023 Thin prep Papanicolaou smear with manual screening 6 5-15 [facility] LOUIS SCREENINGon 07-28-2022 [facility] LOUIS DIAGNOSTIC LTon 03-15-20 [facility] Absolute lymphocyte counton 01-26-2022 Lymphocytes Auto (Unsp spec) [#/Vol] 1.70 10*3/uL 0.83-4.51 [facility] Work Phone: Basophil percentageon 2021 Basophils/100 WBC (Bld) 0.8 % 0-1 [facility] Work Phone: Chloride [Moles/Vol] 106 mmol/L 98-107 [facility] Work Phone: Eosinophils/100 WBC (Bld) 2.2 % 0-5 [facility] Work Phone: Glucose [Mass/Vol] 111 mg/dL 74-106 [facility] Work Phone: Comment on above: Fasting Glucose resu lt from 100 to 125 mg/dL suggests IMPAIRED HOMEOSTASIS per A.D.A. criteria. Neutrophils (Bld) [#/Vol] 4.6 10*3/uL 2.0-7.7 [facility] Work Phone: [phone] Neutrophils/100 WBC (Bld) 63.8 % 47-70 [facility] Work Phone: [phone] Potassium [Moles/Vol] 4.6 mmol/L 3.5-5.1 [facility] Work Phone: Sodium [Moles/Vol] 138 mmol/L 136-145 [facility] Work Phone: WBC (Bld) [#/Vol] 7.2 10*3/uL 4.4-11.0 [facility] Work Phone: Blood erythrocytes count (nu mber/volume)on 01-26-2022 RBC (Bld) [#/Vol] 4.49 10*6/uL 4.2-5.4 [facility] Work Phone: Blood hemoglobin measurement (mass/volume)on 01-26-2022 Hemoglobin (Bld) [Mass/Vol] 14.3 g/dL 12.0-15.0 [facility] Work Phone: Blood lymphocytes/100 leukoc yteson 01-26-2022 Lymphocytes/100 WBC (Bld) 23.7 % 19-41 [facility] Work Phone: [phone] Blood monocytes/100 leukocyt eson 01-26-2022 Monocytes/100 WBC (Bld) 8.8 % 0-10 [facility] Work Phone: Blood platelet mean volumeon 01-26-2022 Platelet mean volume (Bld) [Entitic vol] 10.3 fL 6.2-12.0 [facility] Work Phone: Determination of erythrocyte mean corpuscular volume (MCV)on 01-26-2022 MCV (RBC) [Entitic vol] 96.2 fL 81-99 [facility] Work Phone: Hematocrit Auto (Bld) [Volum e fraction]on 01-26-2022 Hematocrit (Bld) [Volume fraction] 43.2 % 37-47 [facility] Work Phone: Laboratory - Chemistry and C hemistry - challengeon 01-26-2022 CO2 [Moles/Vol] 27.0 mmol/L 21.0-32.0 [facility] Work Phone: Magnesium [Mass/Vol] 2.2 mg/dL 1.6-2.6 [facility] Work Phone: Urea nitrogen/Creatinine [Mass ratio] 16.4 mg/mg 10-20 [facility] Work Phone: Laboratory - Hematology and Cell countson 01-26-2022 Erythrocyte distribution width (RBC) [Entitic vol] 46.5 fL 35.1-43.9 [facility] Work Phone: Erythrocyte distribution width (RBC) [Ratio] 13.1 % 11.6-14.6 [facility] Work Phone: Immature granulocytes/100 WBC (Bld) 0.700 % 0.0-0.9 [facility] Work Phone: Comment on above: IG% - Immature Granu locytes (promyelocytes, myelocytes and metamyelocytes) > 1% indicates that a LEFT SHIFT is Present. MCH (RBC) [Entitic mass] 31.8 pg 27.0-32.0 [facility] Work Phone: Nucleated RBC/100 WBC (Bld) [Ratio] 0 % 0-5 [facility] Work Phone: MCHC Auto (RBC) [Mass/Vol]on 01-26-2022 MCHC (RBC) [Mass/Vol] 33.1 g/dL 32-36 [facility] Work Phone: No Panel Informationon 01-26 Estimated Creatinine Clearance Calc 46.78 ml/min [facility] Work Phone: Estimated GFR (MDRD) Amer 73 mL/min >60 [facility] Work Phone: Comment on above: GFR Calc Estimated GFR (MDRD) Non-Af Amer 60 mL/min >60 [facility] Work Phone: Comment on above: Non- GFR Calc Thyroid Stimulating Hormone (TSH) 6.39 uIU/mL 0.358-3.74 [facility] Work Phone: Troponin I High Sensitivity 4 pg/mL 3.0-54.0 [facility] Work Phone: Comment on above: Please Note: [place] t Units and Gender Specific Reference Ranges. For more information see Policy Stat Procedure [place] High Sensitivity Troponin (TNIH) and attachments. Platelets bldon 01-26-2022 Platelets (Bld) [#/Vol] 236 10*3/uL 150-450 [facility] Work Phone: Serum or plasma calcium hay urement (mass/volume)on 01-26-2022 Calcium [Mass/Vol] 9.4 mg/dL 8.5-10.1 [facility] Work Phone: Serum or plasma creatinine m easurement (mass/volume)on 01-26-2022 Creatinine [Mass/Vol] 0.98 mg/dL 0.55-1.02 [facility] Work Phone: Comment on above: The validity of the calculated GFR & GFRAA in patients over 70 years has not been determined. Clinical correlation is essential. Serum or plasma urea nitroge n measurement (mass/volume)on 01-26-2022 Urea nitrogen [Mass/Vol] 16 mg/dL 7-18 [facility] Work Phone: Thin prep Papanicolaou smear with manual screeningon 01-26-2022 Thin prep Papanicolaou smear with manual screening 5 5-15 [facility] Work Phone: COLONOSCOPY SCREENINGon 05-0 [facility] Vital Signs Date Time Vital Sign Value Performing Clinician Facility 04-08-2025 13:03-0400 Body height 162.[address] Liliam Alaniz MD Work Phone: [phone])335-288214 [place] [address] 04-08-2025 13:03-0400 Body mass index (BMI) [Ratio] 26.1 kg/m2 Dr. Liliam Alaniz MD Work Phone: 4(657)458-110314 [place] [address] 04-08-2025 13:03-0400 Body weight 68.[address] Liliam Alaniz MD Work Phone: 1(930)010-825314 [place] [address] 04-08-2025 13:03-0400 Diastolic blood pressure 76 mm[Hg] Dr. Liliam Alaniz MD Work Phone: 9(219)218-713514 [place] [address] 04-08-2025 13:03-0400 Heart rate 92 /min Dr. Liliam Alaniz MD Work Phone: 2(667)446-032914 [place] [address] 04-08-2025 13:03-0400 Respiratory rate 16 /min Dr. Liliam Alaniz MD Work Phone: 5(567)661-151614 [place] [address] 04-08-2025 13:03-0400 Systolic blood pressure 126 mm[Hg] Dr. Liliam Alaniz MD Work Phone: 3(951)818-275314 [place] [address] 02-26-2025 12:56-0400 Body height 162.[address] Liliam Alaniz MD Work Phone: 6(628)393-947914 [place] [address] 02-26-2025 12:56-0400 Body mass index (BMI) [Ratio] 25.9 kg/m2 Dr. Liliam Alaniz MD Work Phone: 2(723)247-828414 [place] [address] 02-26-2025 12:56-0400 Body weight 68.[address] Liliam Alaniz MD Work Phone: 6(228)997-261614 [place] [address] 02-26-2025 12:56-0400 Diastolic blood pressure 73 mm[Hg] Dr. Liliam Alaniz MD Work Phone: 2(887)992-529714 [place] [address] 02-26-2025 12:56-0400 Heart rate 42 /min Dr. Liliam Alaniz MD Work Phone: [phone])181-012314 [place] [address] 02-26-2025 12:56-0400 Respiratory rate 16 /min Dr. Liliam Alaniz MD Work Phone: [facility] 02-26-2025 12:56-0400 Systolic blood pressure 135 mm[Hg] Dr. Liliam Alaniz MD Work Phone: [facility] 02-17-2025 14:17-0400 Body mass index (BMI) [Ratio] 26.04 kg/m2 Liliam Alaniz MD Work Phone: [facility] 02-17-2025 14:17-0400 Body weight 68.8 kg Liliam Alaniz MD Work Phone: [facility] 02-17-2025 14:17-0400 Diastolic blood pressure 72 mm[Hg] Liliam Alaniz MD Work Phone: [facility] 02-17-2025 14:17-0400 Heart rate 52 /min Liliam Alaniz MD Work Phone: [facility] 02-17-2025 14:17-0400 Respiratory rate 16 /min Liliam Alaniz MD Work Phone: [facility] 02-17-2025 14:17-0400 SaO2% (BldA) [Mass fraction] 98 % Liliam Alaniz MD Work Phone: [facility] 02-17-2025 14:17-0400 Systolic blood pressure 128 mm[Hg] Liliam Alaniz MD Work Phone: [facility] 02-11-2025 16:42-0400 Body mass index (BMI) [Ratio] 26.91 kg/m2 Hattie Garcia APRN.SOLE INKER Work Phone: [facility] 02-11-2025 16:42-0400 Body temperature 100 [degF] Hattie Garcia APRN.SOLE INKER Work Phone: [facility] 02-11-2025 16:42-0400 Body weight 71.1 kg Hattie Garcia APRN.[employer]LE [employer]KER Work Phone: [facility] 02-11-2025 16:42-0400 Diastolic blood pressure 70 mm[Hg] Hattie Garcia POSSUM TRAPPER.[employer]KER Work Phone: [facility] 02-11-2025 16:42-0400 Heart rate 60 /min Hattie Garcia POSSUM TRAPPER.SOLE INKER Work Phone: [facility] 02-11-2025 16:42-0400 Respiratory rate 18 /min Hattie Garcia POSSUM TRAPPER.[employer]KER Work Phone: [facility] 02-11-2025 16:42-0400 SaO2% (BldA) [Mass fraction] 97 % Hattie Garcia POSSUM TRAPPER.SOLE INKER Work Phone: [facility] 02-11-2025 16:42-0400 Systolic blood pressure 130 mm[Hg] Hattie Garcia POSSUM TRAPPER.SOLE INKER Work Phone: [facility] 02-10-2025 14:00-0400 Diastolic blood pressure 64 mm[Hg] Dr. Liliam Alaniz MD Work Phone: [facility] 02-10-2025 14:00-0400 Heart rate 49 /min Dr. Liliam Alaniz MD Work Phone: [facility] 02-10-2025 14:00-0400 Respiratory rate 22 /min Dr. Liliam Alaniz MD Work Phone: [facility] 02-10-2025 14:00-0400 SaO2% (BldA) [Mass fraction] 93 % Dr. Liliam Alaniz MD Work Phone: [facility] 02-10-2025 14:00-0400 Systolic blood pressure 118 mm[Hg] Dr. Liliam Alaniz MD Work Phone: [facility] 02-10-2025 13:51-0400 Body height 162.[address] Liliam Alaniz MD Work Phone: [facility] 02-10-2025 13:51-0400 Body weight 71.[address] Liliam Alaniz MD Work Phone: [facility] 02-10-2025 11:59-0400 Body temperature 96.9 [degF] Dr. Liliam Alaniz MD Work Phone: 2([phone])070-832014 [place] [address] 02-10-2025 07:00-0400 Inhaled oxygen flow rate 2 L/min Dr. Liliam Alaniz MD Work Phone: 5(765)290-916414 [place] [address] 02-07-2025 18:30-0400 Body mass index (BMI) [Ratio] 27 kg/m2 Dr. Liliam Alaniz MD Work Phone: 6(385)512-550414 [place] [address] 02-07-2025 18:00-0400 Diastolic blood pressure 66 mm[Hg] Dr. Liliam Alaniz MD Work Phone: 1(271)001-064914 [place] [address] 02-07-2025 18:00-0400 Heart rate 105 /min Dr. Liliam Alaniz MD Work Phone: 9(654)230-020214 [place] [address] 02-07-2025 18:00-0400 Respiratory rate 14 /min Dr. Liliam Alaniz MD Work Phone: 4(618)159-871714 [place] [address] 02-07-2025 18:00-0400 SaO2% (BldA) [Mass fraction] 97 % Dr. Liliam Alaniz MD Work Phone: 8(646)209-179614 [place] [address] 02-07-2025 18:00-0400 Systolic blood pressure 111 mm[Hg] Dr. Liliam Alaniz MD Work Phone: 1(780)096-802314 [place] [address] 02-07-2025 17:02-0400 Body temperature 97.7 [degF] Dr. Liliam Alaniz MD Work Phone: 9(783)525-347914 [place] [address] 02-07-2025 14:14-0400 Body height 162.[address] Liliam Alaniz MD Work Phone: 1(108)422-949314 [place] [address] 02-07-2025 14:14-0400 Body mass index (BMI) [Ratio] 27.5 kg/m2 Dr. Liliam Alaniz MD Work Phone: 7(894)801-618214 [place] [address] 02-07-2025 14:14-0400 Body weight 72.[address] Liliam Alaniz MD Work Phone: 7(536)894-996914 [place] [address] 01-31-2025 13:49-0400 Diastolic blood pressure 68 mm[Hg] Dr. Liliam Alaniz MD Work Phone: 5(256)561-191914 [place] [address] 01-31-2025 13:49-0400 Heart rate 130 /min Dr. Liliam Alaniz MD Work Phone: 1(856)753-702514 [place] [address] 01-31-2025 13:49-0400 Respiratory rate 18 /min Dr. Liliam Alaniz MD Work Phone: 9(244)066-218514 [place] [address] 01-31-2025 13:49-0400 Systolic blood pressure 98 mm[Hg] Dr. Liliam Alaniz MD Work Phone: 2(626)770-330214 [place] [address] 01-13-2025 11:13-0400 Body height 162.[address] Liliam Alaniz MD Work Phone: 2(665)784-001314 [place] [address] 01-13-2025 11:13-0400 Body weight 69.[address] Liliam Alaniz MD Work Phone: 2(722)705-698314 [place] [address] 01-10-2025 12:00-0400 Body mass index (BMI) [Ratio] 26.4 kg/m2 Dr. Liliam Alaniz MD Work Phone: 9(720)989-692014 [place] [address] 01-10-2025 09:26-0400 Body height 162.[address] Liliam Alaniz MD Work Phone: 9(591)435-354514 [place] [address] 01-10-2025 09:26-0400 Body mass index (BMI) [Ratio] 26.2 kg/m2 Dr. Liliam Alaniz MD Work Phone: 9(120)771-132814 [place] [address] 01-10-2025 09:26-0400 Body weight 69.[address] Liliam Alaniz MD Work Phone: 4(253)106-081614 [place] [address] 01-10-2025 09:26-0400 Diastolic blood pressure 66 mm[Hg] Dr. Liliam Alaniz MD Work Phone: 6(036)167-074914 [place] [address] 01-10-2025 09:26-0400 Heart rate 123 /min Dr. Liliam Alaniz MD Work Phone: [facility] 01-10-2025 09:26-0400 Respiratory rate 16 /min Dr. Liliam Alaniz MD Work Phone: [facility] 01-10-2025 09:26-0400 Systolic blood pressure 109 mm[Hg] Dr. Liliam Alaniz MD Work Phone: [facility] 12-26-2024 10:35-0400 Body mass index (BMI) [Ratio] 26.53 kg/m2 Liliam Alaniz MD Work Phone: [facility] 12-26-2024 10:35-0400 Body weight 70.1 kg Liliam Alaniz MD Work Phone: [facility] 12-26-2024 10:35-0400 Diastolic blood pressure 62 mm[Hg] Liliam Alaniz MD Work Phone: [facility] 12-26-2024 10:35-0400 Heart rate 88 /min Liliam Alaniz MD Work Phone: [facility] 12-26-2024 10:35-0400 Respiratory rate 14 /min Liliam Alaniz MD Work Phone: [facility] 12-26-2024 10:35-0400 SaO2% (BldA) [Mass fraction] 98 % Liliam Alaniz MD Work Phone: [facility] 12-26-2024 10:35-0400 Systolic blood pressure 136 mm[Hg] Liliam Alaniz MD Work Phone: [facility] 10-04-2024 13:41-0400 Body mass index (BMI) [Ratio] 26.7 kg/m2 Dr. Liliam Alaniz MD Work Phone: [facility] 10-04-2024 13:41-0400 Body weight 70.[address] Liliam Alaniz MD Work Phone: [facility] 10-04-2024 13:41-0400 Diastolic blood pressure 74 mm[Hg] Dr. Liliam Alaniz MD Work Phone: 8(263)725-082414 [place] [address] 10-04-2024 13:41-0400 Heart rate 54 /min Dr. Liliam Alaniz MD Work Phone: 1(958)706-948614 [place] [address] 10-04-2024 13:41-0400 Respiratory rate 16 /min Dr. Liliam Alaniz MD Work Phone: 6(775)653-015214 [place] [address] 10-04-2024 13:41-0400 Systolic blood pressure 159 mm[Hg] Dr. Liliam Alaniz MD Work Phone: 5(595)816-071314 [place] [address] 09-16-2024 17:05-0400 Body temperature 98.7 [degF] Dr. Liliam Alaniz MD Work Phone: 4(282)826-428314 [place] [address] 09-16-2024 17:05-0400 Diastolic blood pressure 73 mm[Hg] Dr. Liliam Alaniz MD Work Phone: 5(159)020-745414 [place] [address] 09-16-2024 17:05-0400 Heart rate 54 /min Dr. Liliam Alaniz MD Work Phone: 7(040)898-497514 [place] [address] 09-16-2024 17:05-0400 Respiratory rate 18 /min Dr. Liliam Alaniz MD Work Phone: 5(273)247-129014 [place] [address] 09-16-2024 17:05-0400 SaO2% (BldA) [Mass fraction] 97 % Dr. Liliam Alaniz MD Work Phone: 1(841)751-667714 [place] [address] 09-16-2024 17:05-0400 Systolic blood pressure 137 mm[Hg] Dr. Liliam Alaniz MD Work Phone: 8(444)289-607914 [place] [address] 09-16-2024 15:55-0400 Inhaled oxygen flow rate 2 L/min Dr. Liliam Alaniz MD Work Phone: 3(333)646-144314 [place] [address] 09-16-2024 13:51-0400 Body height 162.[address] Liliam Alaniz MD Work Phone: 8(553)546-334114 [place] [address] 09-16-2024 13:51-0400 Body mass index (BMI) [Ratio] 25.7 kg/m2 Dr. Liliam Alaniz MD Work Phone: [facility] 09-16-2024 13:51-0400 Body weight 68.[address] Liliam Alaniz MD Work Phone: [facility] 08-29-2024 19:48-0500 Body temperature 101.61 [degF] Reji Thomason APRN.SOLE INKER Work Phone: [facility] 08-29-2024 19:48-0500 Diastolic blood pressure 71 mm[Hg] Reji Thomason APRN.SOLE INKER Work Phone: [facility] 08-29-2024 19:48-0500 Heart rate 63 /min Reji Thomason APRN.SOLE INKER Work Phone: [facility] 08-29-2024 19:48-0500 Respiratory rate 20 /min Reji Thomason APRN.SOLE INKER Work Phone: [facility] 08-29-2024 19:48-0500 SaO2% (BldA) [Mass fraction] 98 % Reji Thomason APRN.SOLE INKER Work Phone: [facility] 08-29-2024 19:48-0500 Systolic blood pressure 141 mm[Hg] Reji Thomason APRN.SOLE INKER Work Phone: [facility] 06-14-2024 16:02-0500 Diastolic blood pressure 68 mm[Hg] Liliam Alaniz MD Work Phone: [facility] 06-14-2024 16:02-0500 Systolic blood pressure 134 mm[Hg] Liliam Alaniz MD Work Phone: [facility] 06-14-2024 14:11-0500 Body height 162.6 cm Liliam Alaniz MD Work Phone: [facility] 06-14-2024 14:11-0500 Body mass index (BMI) [Ratio] 26.11 kg/m2 Liliam Alaniz MD Work Phone: [facility] 06-14-2024 14:11-0500 Body weight 69 kg Liliam Alaniz MD Work Phone: [facility] 06-14-2024 14:11-0500 Heart rate 64 /min Liliam Alaniz MD Work Phone: [facility] 06-14-2024 14:11-0500 Respiratory rate 12 /min Liliam Alaniz MD Work Phone: [facility] 06-14-2024 14:11-0500 SaO2% (BldA) [Mass fraction] 100 % Liliam Alaniz MD Work Phone: [facility] 12-20-2023 09:11-0400 Body mass index (BMI) [Ratio] 26.43 kg/m2 Liliam Alaniz MD Work Phone: [facility] 12-20-2023 09:11-0400 Body temperature 97.7 [degF] Liliam Alaniz MD Work Phone: [facility] 12-20-2023 09:11-0400 Body weight 69.85 kg Liliam Alaniz MD Work Phone: [facility] 12-20-2023 09:11-0400 Diastolic blood pressure 64 mm[Hg] Liliam Alaniz MD Work Phone: [facility] 12-20-2023 09:11-0400 Heart rate 61 /min Liliam Alaniz MD Work Phone: [facility] 12-20-2023 09:11-0400 Respiratory rate 18 /min Liliam Alaniz MD Work Phone: [facility] 12-20-2023 09:11-0400 SaO2% (BldA) [Mass fraction] 97 % Liliam Alaniz MD Work Phone: [facility] 12-20-2023 09:11-0400 Systolic blood pressure 114 mm[Hg] Liliam Alaniz MD Work Phone: [facility] 09-26-2023 13:43-0400 Body height 162.[address] Liliam Alaniz Work Phone: 0(523)259-744514 [place] [address] 09-26-2023 13:43-0400 Body mass index (BMI) [Ratio] 26.1 kg/m2 Dr. Liliam Alaniz Work Phone: 3(313)945-240114 [place] [address] 09-26-2023 13:43-0400 Body weight 68.[address] Liliam Alaniz Work Phone: 6(111)512-855014 [place] [address] 09-26-2023 13:43-0400 Diastolic blood pressure 66 mm[Hg] Dr. Liliam Alaniz Work Phone: 8(311)224-056114 [place] [address] 09-26-2023 13:43-0400 Heart rate 52 /min Dr. Liliam Alaniz Work Phone: 1(948)629-498614 [place] [address] 09-26-2023 13:43-0400 Respiratory rate 16 /min Dr. Liliam Alaniz Work Phone: 3(352)155-806114 [place] [address] 09-26-2023 13:43-0400 Systolic blood pressure 133 mm[Hg] Dr. Liliam Alaniz Work Phone: 2(890)249-122714 [place] [address] 04-13-2023 16:54-0400 Diastolic blood pressure 71 mm[Hg] Dr. Liliam Alaniz Work Phone: 3(490)509-777814 [place] [address] 04-13-2023 16:54-0400 Heart rate 56 /min Dr. Liliam Alaniz Work Phone: 3(057)556-647914 [place] [address] 04-13-2023 16:54-0400 Respiratory rate 14 /min Dr. Liliam Alaniz Work Phone: 5(350)400-000914 [place] [address] 04-13-2023 16:54-0400 SaO2% (BldA) [Mass fraction] 98 % Dr. Liliam Alaniz Work Phone: 9(965)771-591714 [place] [address] 04-13-2023 16:54-0400 Systolic blood pressure 136 mm[Hg] Dr. Liliam Alaniz Work Phone: 1(770)038-075114 [place] [address] 10-12-2023 15:08-0400 Inhaled oxygen flow rate 99 L/min Dr. Liliam Alaniz Work Phone: 0(673)263-549314 [place] [address] 04-13-2023 12:38-0400 Body height 162.[address] Liliam Alaniz Work Phone: 1(920)094-492514 [place] [address] 04-13-2023 12:38-0400 Body mass index (BMI) [Ratio] 25.5 kg/m2 Dr. Liliam Alaniz Work Phone: 5(132)599-086314 [place] [address] 04-13-2023 12:38-0400 Body temperature 97.8 [degF] Dr. Liliam Alaniz Work Phone: 3(730)991-442614 [place] [address] 04-13-2023 12:38-0400 Body weight 67.[address] Liliam Alaniz Work Phone: 3(296)946-253314 [place] [address] 02-22-2023 11:37-0400 Body height 162.[address] Liliam Alaniz Work Phone: 0(205)277-730414 [place] [address] 02-22-2023 11:32-0400 Body mass index (BMI) [Ratio] 25.2 kg/m2 Dr. Liliam Alaniz Work Phone: 6(194)460-887014 [place] [address] 02-22-2023 11:32-0400 Body weight 66.[address] Liliam Alaniz Work Phone: 6(215)673-181814 [place] [address] 02-22-2023 11:32-0400 Diastolic blood pressure 80 mm[Hg] Dr. Liliam Alaniz Work Phone: 0(098)842-079614 [place] [address] 02-22-2023 11:32-0400 Heart rate 51 /min Dr. Liliam Alaniz Work Phone: 7(604)956-981714 [place] [address] 02-22-2023 11:32-0400 Respiratory rate 18 /min Dr. Liliam Alaniz Work Phone: 5(385)656-286514 [place] [address] 02-22-2023 11:32-0400 SaO2% (BldA) [Mass fraction] 98 % Dr. Liliam Alaniz Work Phone: 0(914)509-754314 [place] [address] 02-22-2023 11:32-0400 Systolic blood pressure 138 mm[Hg] Dr. Liliam Alaniz Work Phone: [facility] 12-14-2022 13:10-0400 Diastolic blood pressure 64 mm[Hg] Tuyet Golden DO Work Phone: [facility] 12-14-2022 13:10-0400 Heart rate 58 /min Tuyet Golden DO Work Phone: [facility] 12-14-2022 13:10-0400 SaO2% (BldA) [Mass fraction] 99 % Tuyet Golden DO Work Phone: [facility] 12-14-2022 13:10-0400 Systolic blood pressure 122 mm[Hg] Tuyet Golden DO Work Phone: [facility] 11-11-2022 11:01-0400 Diastolic blood pressure 68 mm[Hg] Tuyet Golden DO Work Phone: [facility] 11-11-2022 11:01-0400 Heart rate 62 /min Tuyet Golden DO Work Phone: [facility] 11-11-2022 11:01-0400 SaO2% (BldA) [Mass fraction] 99 % Tuyet Golden DO Work Phone: [facility] 11-11-2022 11:01-0400 Systolic blood pressure 132 mm[Hg] Tuyet Golden DO Work Phone: [facility] 09-06-2022 10:36-0500 Body temperature 97.39 [degF] Liliam Alaniz MD Work Phone: [facility] 09-06-2022 10:36-0500 Body weight 68.04 kg Liliam Alaniz MD Work Phone: [facility] 09-06-2022 10:36-0500 Diastolic blood pressure 72 mm[Hg] Liliam Alaniz MD Work Phone: [facility] 09-06-2022 10:36-0500 Heart rate 59 /min Liliam Alaniz MD Work Phone: [facility] 09-06-2022 10:36-0500 Respiratory rate 18 /min Liliam Alaniz MD Work Phone: [facility] 09-06-2022 10:36-0500 SaO2% (BldA) [Mass fraction] 99 % Liliam Alaniz MD Work Phone: [facility] 09-06-2022 10:36-0500 Systolic blood pressure 124 mm[Hg] Liliam Alaniz MD Work Phone: [facility] 06-22-2022 13:02-0500 Body height 162.6 cm Liliam Alaniz MD Work Phone: [facility] 06-22-2022 13:02-0500 Body weight 70.31 kg Liliam Alaniz MD Work Phone: [facility] 06-22-2022 13:02-0500 Diastolic blood pressure 84 mm[Hg] Liliam Alaniz MD Work Phone: [facility] 06-22-2022 13:02-0500 Heart rate 59 /min Liliam Alaniz MD Work Phone: [facility] 06-22-2022 13:02-0500 SaO2% (BldA) [Mass fraction] 100 % Liliam Alaniz MD Work Phone: [facility] 06-22-2022 13:02-0500 Systolic blood pressure 136 mm[Hg] Liliam Alaniz MD Work Phone: [facility] 02-22-2022 11:07-0400 Body weight 69.4 kg Liliam Alaniz MD Work Phone: [facility] 02-22-2022 11:07-0400 Diastolic blood pressure 84 mm[Hg] Liliam Alaniz MD Work Phone: [facility] 02-22-2022 11:07-0400 Heart rate 54 /min Liliam Alaniz MD Work Phone: [facility] 02-22-2022 11:07-0400 SaO2% (BldA) [Mass fraction] 98 % Liliam Alaniz MD Work Phone: [facility] 02-22-2022 11:07-0400 Systolic blood pressure 136 mm[Hg] Liliam Alaniz MD Work Phone: [facility] 02-07-2022 08:21-0400 Body weight 68.49 kg Katey Stanton POSSUM TRAPPER.LAWN MOWER OPERATOR Work Phone: [facility] 02-07-2022 08:21-0400 Diastolic blood pressure 70 mm[Hg] Katey Stanton POSSUM TRAPPER.LAWN MOWER OPERATOR Work Phone: [facility] 02-07-2022 08:21-0400 Heart rate 54 /min Katey Stanton POSSUM TRAPPER.LAWN MOWER OPERATOR Work Phone: [facility] 02-07-2022 08:21-0400 Respiratory rate 14 /min Katey Stanton POSSUM TRAPPER.LAWN MOWER OPERATOR Work Phone: [facility] 02-07-2022 08:21-0400 SaO2% (BldA) [Mass fraction] 97 % Katey Stanton POSSUM TRAPPER.LAWN MOWER OPERATOR Work Phone: [facility] 02-07-2022 08:21-0400 Systolic blood pressure 124 mm[Hg] Katey Stanton POSSUM TRAPPER.LAWN MOWER OPERATOR Work Phone: [facility] 01-27-2022 00:59-0400 Diastolic blood pressure 80 mm[Hg] [facility] Work Phone: 01-27-2022 00:59-0400 Heart rate 82 /min [facility] Work Phone: 01-27-2022 00:59-0400 Respiratory rate 16 /min [facility] Work Phone: 01-27-2022 00:59-0400 Systolic blood pressure 135 mm[Hg] [facility] Work Phone: 01-26-2022 22:27-0400 Body height 162.56 cm [facility] Work Phone: 01-26-2022 22:27-0400 Body mass index (BMI) [Ratio] 25.7 kg/m2 [facility] Work Phone: 01-26-2022 22:27-0400 Body temperature 97.9 [degF] [facility] Work Phone: 01-26-2022 22:27-0400 Body weight 68.03 kg [facility] Work Phone: 01-26-2022 22:27-0400 SaO2% (BldA) [Mass fraction] 99 % [facility] Work Phone: 11-02-2021 09:45-0400 Diastolic blood pressure 59 mm[Hg] Jake Boyle MD Work Phone: [facility] 11-02-2021 09:45-0400 Heart rate 52 /min Jake Boyle MD Work Phone: [facility] 11-02-2021 09:45-0400 SaO2% (BldA) [Mass fraction] 97 % Jake Boyle MD Work Phone: [facility] 11-02-2021 09:45-0400 Systolic blood pressure 128 mm[Hg] Jake Boyle MD Work Phone: [facility] 11-02-2021 09:25-0400 Respiratory rate 16 /min Jake Boyle MD Work Phone: [facility] 11-02-2021 08:08-0400 Body temperature 97 [degF] Jake Boyle MD Work Phone: [facility] 11-02-2021 08:08-0400 Body weight 68.6 kg Jake Boyle MD Work Phone: [facility] 06-08-2021 14:21-0500 Diastolic blood pressure 84 mm[Hg] Dr. Liliam Alaniz Work Phone: [facility] Work Phone: 06-08-2021 14:21-0500 Systolic blood pressure 137 mm[Hg] Dr. Liliam Alaniz Work Phone: [facility] Work Phone: 06-08-2021 13:51-0500 Body height 162.[address] Liliam Alaniz Work Phone: [facility] Work Phone: 06-08-2021 13:51-0500 Body mass index (BMI) [Ratio] 26.2 kg/m2 Dr. Liliam Alaniz Work Phone: [facility] Work Phone: 06-08-2021 13:51-0500 Body weight 69.[address] Liliam Alaniz Work Phone: [facility] Work Phone: 06-08-2021 13:51-0500 Heart rate 54 /min Dr. Liliam Alaniz Work Phone: [facility] Work Phone: 06-08-2021 13:51-0500 Respiratory rate 18 /min Dr. Liliam Alaniz Work Phone: [facility] Work Phone: 06-08-2021 13:51-0500 SaO2% (BldA) [Mass fraction] 98 % Dr. Liliam Alaniz Work Phone: [facility] Work Phone: Encounters Encounter Date Encounter Type Care Provider Facility Start: 04-08-2025 End: 04-08-2025 Patient encounter procedure Teofilo Dobson PA -[facility] Work Phone: Start: 04-08-2025 End: 04-08-2025 ambulatory Teofilo FLETCHER Facility:[facility] Start: 03-31-2025 ambulatory Teofilo FLETCHER Facility:[facility] Start: 03-31-2025 Non-patient / Non-visit [facility] Start: 03-31-2025 End: 03-31-[address] Liliam Alaniz MD Work Phone: -Cardiovascular Services Start: 03-31-2025 End: 03-31-2025 Patient encounter procedure Teofilo FLETCHER -[facility] Work Phone: Start: 03-31-2025 End: 03-31-2025 ambulatory Teofilo FLETCHER Facility:[facility] Start: 03-24-2025 End: 03-24-2025 ambulatory MIKAELA MCDONALD Facility:[facility] Start: 03-11-2025 End: 03-11-[address] Liliam Alaniz MD Work Phone: -Laboratory Start: 03-11-2025 End: 03-11-2025 Patient encounter procedure Teofilo FLETCHER -Laboratory Work Phone: Start: 03-11-2025 End: 03-11-2025 ambulatory Teofilo FLETCHER Facility:[facility] Start: 02-26-2025 End: 02-26-2025 Patient encounter procedure Teofilo FLETCHER -[facility] Work Phone: Start: 02-26-2025 End: 02-26-[address] Liliam Alaniz MD Work Phone: -[facility] Start: 02-17-2025 End: 02-17-2025 Office outpatient visit 25 minutes Liliam Alaniz MD Work Phone: [facility] Comment on above: Paroxysmal atrial fi brillation (HCC) (Primary Dx); Essential hypertension; Swelling of both ankles; IV site infection, sequela Start: 02-17-2025 End: 02-17-2025 ambulatory LILIAM ALANIZ Facility:[facility] Start: 02-11-2025 End: 02-11-2025 Office outpatient visit 15 minutes Hattie Garcia APRN.CNP Work Phone: [facility] Comment on above: Cellulitis of other specified site (Primary Dx) Start: 02-11-2025 End: 02-11-2025 ambulatory HATTIE GARCIA Facility:[facility] Start: 02-10-2025 Non-patient / Non-visit Dr. Gage kidd DO [facility] Start: 02-09-2025 Non-patient / Non-visit Dr. Enrico polo MD [facility] Start: 02-09-2025 Non-patient / Non-visit Dr. Paola Valreio MD [facility] Work Phone: Start: 02-08-2025 Non-patient / Non-visit Dr. Paola Valerio MD [facility] Work Phone: Start: 02-08-2025 ambulatory [facility] Start: 02-08-2025 Non-patient / Non-visit Dr. Enrico polo MD [facility] Start: 02-07-2025 Non-patient / Non-visit Dr. Enrico polo MD [facility] Start: 02-07-2025 Non-patient / Non-visit Dr. George gandara [facility] Work Phone: Start: 02-07-2025 ambulatory [facility] Facility:[facility] Start: 02-07-2025 End: 02-10-2025 Evaluation and management of inpatient Dr. George Nichole [facility] Work Phone: Start: 02-07-2025 End: 02-07-[address] Sterling Thapa MD -[facility][Note 3] [facility] Work Phone: Start: 02-07-2025 End: 02-07-[address] Liliam Alaniz MD Work Phone: -[facility] Start: 01-31-2025 End: 01-31-2025 Patient encounter procedure Jozef DELA CRUZ [facility] Work Phone: Start: 01-31-2025 End: 01-31-[address] Liliam Alaniz MD Work Phone: -[facility] Start: 01-20-2025 End: 01-20-2025 Patient encounter procedure Teofilo Dobson [place] -[facility] Work Phone: Start: 01-20-2025 End: 01-20-[address] Liliam Alaniz MD Work Phone: -[facility] Start: 01-15-2025 End: 01-15-[address] Liliam Alaniz MD Work Phone: -[facility] Start: 01-15-2025 End: 01-15-[address] Sterling [facility] Work Phone: Start: 01-13-2025 ambulatory Liliam Alaniz Facilit y:[facility] Start: 01-13-2025 Non-patient / Non-visit Dr. Gage kidd DO -[facility] Start: 01-13-2025 End: 01-13-2025 Admission to same day surgery center Dr. Sterling Thapa MD -[facility]/Special Procedures Work Phone: Start: 01-13-2025 End: 01-13-[address] Liliam Alaniz MD Work Phone: -[facility]/Special Procedures Start: 01-10-2025 End: 01-10-2025 Patient encounter procedure Teofilo Dobson [place] [facility] Work Phone: Start: 01-10-2025 End: 01-10-[address] Liliam Alaniz MD Work Phone: -[facility] Start: 12-26-2024 End: 12-26-2024 Office outpatient visit 25 minutes Liliam Alaniz MD Work Phone: [facility] Comment on above: Psychophysiological insomnia (Primary Dx); Paroxysmal atrial fibrillation (HCC); Hypercholesterolemia; Chronic pain of right knee; Primary osteoarthritis of right knee; Essential hypertension; Vitamin D deficiency Start: 12-26-2024 End: 12-26-2024 ambulatory LILIAM ALANIZ Facility:[facility] Start: 12-23-2024 End: 12-23-2024 ambulatory LILIAM ALANIZ Facility:[facility] Start: 12-09-2024 End: 12-10-2024 Refill Liliam Alaniz MD Work Phone: [facility] Comment on above: Refill Request Start: 10-04-2024 End: 12-04-2024 Follow-up encounter Katey Stanton APRN.LAWN MOWER OPERATOR Work Phone: [facility] Start: 10-04-2024 End: 10-04-[address] Sterling Thapa MD [facility] Work Phone: Start: 10-04-2024 End: 10-04-2024 ambulatory Sterling Tahpa Facility:[facility] Start: 09-23-2024 End: 09-23-2024 ambulatory LILIAM ALANIZ Facility:[facility] Start: 09-23-2024 End: 09-23-2024 Subsequent hospital visit by physician Screen Mammo [facility] Comment on above: Encounter for screen ing mammogram for breast cancer [Z12.31] Start: 09-16-2024 Follow-up status Dr. Liliam pandey MD Work Phone: [facility] Start: 09-16-2024 End: 09-16-2024 Emergency department patient visit Dr. Liliam Alaniz MD Work Phone: -Emergency Department Work Phone: Start: 09-16-2024 End: 09-16-2024 Patient encounter procedure Jozef Carr METAL CONTAINER MAKER-C [facility] Work Phone: Start: 09-16-2024 End: 09-16-2024 ambulatory Jozef Carr Facility:[facility] Start: 08-29-2024 End: 08-29-2024 Patient encounter procedure Reji Thomason APRN.SOLE INKER Work Phone: [facility] Comment on above: COVID (Primary Dx) Start: 08-29-2024 End: 08-29-2024 ambulatory Liliam Alaniz MD Work Phone: [facility] Comment on above: COVID Start: 08-29-2024 End: 08-29-2024 Telephone encounter Liliam Alaniz MD Work Phone: [facility] Comment on above: Covid Positive Start: 06-14-2024 End: 06-14-2024 ambulatory LILIAM ALANIZ Facility:[facility] Start: 06-14-2024 End: 06-14-2024 Patient encounter procedure Liliam Alaniz MD Work Phone: [facility] Comment on above: Medicare annual well ness visit, subsequent (Primary Dx); Essential hypertension; Vitamin D deficiency; Generalized anxiety disorder; Paroxysmal atrial fibrillation (HCC); Psychophysiological insomnia; Encounter for immunization; Screening for depression; Encounter for screening mammogram for breast cancer Start: 06-10-2024 End: 06-10-2024 ambulatory LILIAM ALANIZ Facility:[facility] Start: 05-28-2024 End: 05-29-2024 Refill Liliam Alaniz MD Work Phone: Internal Medicine [place] Comment on above: Refill Request Start: 04-30-2024 End: 04-30-2024 ambulatory Teofilo FLETCHER Facility:[facility] Start: 12-20-2023 End: 12-20-2023 Office outpatient visit 25 minutes Liliam Alaniz MD Work Phone: [facility] [place] Comment on above: Essential hypertensi on (Primary Dx); Ankle edema, bilateral; Psychophysiological insomnia; Vitamin D deficiency; Encounter for immunization; Encounter for long-term current use of medication Start: 12-08-2023 ambulatory Liliam ingram MD Work Phone: Internal Medicine [place] Comment on above: labs Start: 11-06-2023 End: 11-06-[address] Liliam Alaniz Work Phone: [facility] Work Phone: Start: 11-06-2023 End: 11-06-[address] [facility]: Start: 10-19-2023 End: 10-19-[address] Liliam Alaniz Work Phone: [facility] Work Phone: Start: 10-19-2023 End: 10-19-[address] [facility]: Start: 09-26-2023 End: 09-26-[address] Liliam Alaniz Work Phone: [facility] Work Phone: Start: 08-29-2023 Documentation procedure Mammog jessica Coordinator [facility] Start: 08-29-2023 Letter encounter Mammography Coordinator [facility] Department Start: 04-13-2023 End: 04-13-2023 Emergency department patient visit Dr. Liliam Alaniz Work Phone: [facility]-Emergency Department Work Phone: Start: 03-07-2023 End: 03-07-[address] Liliam Alaniz Work Phone: [facility] Work Phone: Start: 03-07-2023 End: 03-07-[address] Liliam Alaniz Work Phone: [facility]-Pulmonary Services/Neurology Work Phone: Start: 02-22-2023 End: 02-22-[address] Liliam Alaniz Work Phone: [facility] Work Phone: Start: 12-16-2022 ambulatory Liliam ingram MD Work Phone: Internal Medicine [place] Comment on above: BLOODWORK Start: 12-14-2022 End: 12-14-2022 Patient encounter procedure Tuyet Golden DO Work Phone: Vascular Surgery Comment on above: Symptomatic spider v aricose vein (Primary Dx) Start: 12-12-2022 Refill Liliam ingram MD Work Phone: [facility] [place] Comment on above: Refill Request Start: 11-14-2022 Refill Liliam ingram MD Work Phone: [facility] [place] Comment on above: Refill Request Start: 11-11-2022 End: 11-11-2022 Patient encounter procedure Tuyte Golden DO Work Phone: Vascular Surgery Comment on above: Symptomatic spider v aricose vein (Primary Dx) Start: 09-21-2022 ambulatory Tuyet nieves DO Work Phone: Vascular Surgery Comment on above: RECENT APPT. Start: 09-16-2022 Telephone encounter Tuyet Golden DO Work Phone: Vascular Surgery Comment on above: Patient Question Start: 09-06-2022 End: 09-06-2022 Office outpatient visit 15 minutes Liliam Alaniz MD Work Phone: [facility] [place] Comment on above: Elevated TSH (Primar y Dx); Essential hypertension; Paroxysmal atrial fibrillation (HCC) Start: 08-22-2022 ambulatory Liliam ingram MD Work Phone: [facility] [place] Comment on above: thyroid test results Start: 08-18-2022 ambulatory Liliam ingram MD Work Phone: [facility] [place] Comment on above: results from thyroid blood work Start: 07-28-2022 End: 07-28-2022 Subsequent hospital visit by physician Screen Mammo [facility] Mammogram Comment on above: Encounter for screen ing mammogram for breast cancer [Z12.31] Start: 07-08-2022 Telephone encounter Liliam shelton MD Work Phone: [facility] Medicine [place] Comment on above: Patient Update Start: 06-25-2022 End: 06-25-2022 ambulatory Liliam Alaniz MD Work Phone: [facility] Medicine [place] Comment on above: COVID-19 virus infec tion (Primary Dx) Start: 06-25-2022 End: 06-25-2022 Telephone encounter Liliam Alaniz MD Work Phone: [facility] Start: 06-22-2022 End: 06-22-2022 Office outpatient visit 40 minutes Liliam Alaniz MD Work Phone: [facility] [place] Comment on above: Psychophysiological insomnia (Primary Dx); Essential hypertension; Elevated TSH; Paroxysmal atrial fibrillation (HCC); Vitamin D deficiency; Generalized anxiety disorder; Encounter for long-term current use of medication; Encounter for screening mammogram for breast cancer Start: 05-18-2022 Refill Liliam ingram MD Work Phone: [facility] [place] Comment on above: Refill Request Start: 03-15-2022 End: 03-15-2022 Subsequent hospital visit by physician Diagnostic Mammo [facility] Mammogram Comment on above: Mammographic microca lcification [R92.0] Start: 02-22-2022 End: 02-22-2022 Office outpatient visit 25 minutes Liliam Alaniz MD Work Phone: [facility] Medicine [place] Comment on above: Elevated TSH (Primar y Dx); Paroxysmal atrial fibrillation (HCC); Hot flashes; Vitamin D deficiency; Essential hypertension; Encounter for long-term current use of medication Start: 02-07-2022 End: 02-07-2022 Patient encounter procedure Katey Stanton APRN.LAWN MOWER OPERATOR Work Phone: Internal Medicine [place] Comment on above: Paroxysmal atrial fi brillation (HCC) (Primary Dx); Palpitations; Elevated TSH Start: 01-31-2022 Telephone encounter Liliam shelton MD Work Phone: Internal Medicine [place] Comment on above: question regarding t hyroid (ER follow up scheduled); Appointment Start: 01-26-2022 End: 01-27-2022 Emergency department patient visit [facility]-Emergency Department Start: 11-08-2021 Telephone encounter Jake Boyle MD Work Phone: General Surgery Comment on above: Results Results (colonoscopy ); Opened In Error Start: 11-02-2021 End: 11-02-2021 Subsequent hospital visit by physician Jake Boyle MD Work Phone: Ambulatory Surgery Comment on above: Personal history of colonic polyps [Z86.010] Start: 09-03-2021 End: 09-03-[address] Liliam Alaniz Work Phone: [facility]-Breast Imaging - Biopsy/Stero Start: 08-19-2021 Telephone encounter Jake Boyle MD Work Phone: General Surgery Comment on above: 11/02/2021 Colonosco py Start: 06-08-2021 End: 06-08-[address] Liliam Alaniz Work Phone: [facility] Procedures Date Procedure Procedure Detail Performing Clinician Start: 03-31-2025 Cardiovascular stres s test using pharmacologic stress agent Dr. Liliam Alaniz MD Work Phone: Start: 02-10-[address] Liliam Alaniz MD Work Phone: Start: 02-07-2025 Plain chest X-ray Dr. Johann Alaniz MD Work Phone: Start: 02-07-[address] Liliam Alaniz MD Work Phone: Start: 01-13-[address] Liliam Alaniz MD Work Phone: Start: 12-23-2024 Lipid 1996 panel - S jim or Plasma Liliam Alaniz MD Work Phone: Start: 09-16-2024 Plain chest X-ray Dr. Johann Alaniz MD Work Phone: Start: 09-16-[address] Liliam Alaniz MD Work Phone: Start: 09-16-2024 Evaluation of diagno stic study results Dr. Liliam Alaniz MD Work Phone: Start: 06-14-2024 Adult depression screening assessment Liliam Alaniz MD Work Phone: Start: 06-10-2024 Lipid 1996 panel - S jim or Plasma Liliam Alaniz MD Work Phone: Start: 12-18-2023 Lipid 1996 panel - S jim or Plasma Liliam Alaniz MD Work Phone: Start: 06-05-2023 Lipid 1996 panel - S jim or Plasma Mammography Coordinator Start: 04-13-2023 Plain chest X-ray Dr. Johann Alaniz Work Phone: Start: 07-28-2022 End: 07-28-2022 Mammography Liliam Alaniz MD Work Phone: Start: 06-10-2022 Lipid 1996 panel - S jim or Plasma Screen Wstr Start: 03-15-2022 Diagnostic [...] Activity Detail Author Start: 11-03-2031 Colonoscopy COLONOSCOPY [facility] Start: 11-03-2031 COLORECTAL CANCER SCREENING COLORECTAL CANCER SCREENING [facility] Start: 11-03-2031 Screening for malign ant neoplasm of colon [facility] Start: 12-23-2029 Lipid panel Lipid Screening [facility] Start: 06-10-2029 Lipid panel Lipid Screening [facility] Start: 12-17-2028 Lipid panel Lipid Screening [facility] Start: 06-05-2028 Lipid panel Lipid Screening [facility] Start: 12-24-2027 Diabetes Screening Diabetes Screenin g [facility] Start: 06-10-2027 Diabetes Screening Diabetes Screenin g [facility] Start: 06-10-2027 Lipid 1996 panel - S jim or Plasma Lipid Screening [facility] Start: 06-10-2027 LIPID SCREEN LIPID SCREEN [facility] Start: 2027 RSV Vaccine (1 - 1-d ose 75+ series) RSV Vaccine (1 - 1-dose 75+ series) [facility] Start: 12-21-2026 LIPID SCREEN LIPID SCREEN [facility] Start: 12-17-2026 Diabetes Screening Diabetes Screenin g [facility] Start: 11-02-2026 Colonoscopy COLONOSCOPY [facility] Start: 11-02-2026 COLORECTAL CANCER SCREENING COLORECTAL CANCER SCREENING [facility] Start: 06-05-2026 Diabetes Screening Diabetes Screenin g [facility] Start: 06-01-2026 LIPID SCREEN LIPID SCREEN [facility] Start: 02-17-2026 Annual PCP Team Gandy Dancer richy Disease Visit Annual PCP Team Chronic Disease Visit [facility] Start: 12-29-2025 End: 12-29-2025 Patient encounter procedure 12/29/2025 11:00 AM EDT Office Visit [facility] [address] [place] [address] Liliam Alaniz MD [address] [place], [place] [id number] 6 niki f/up [facility] Comment on above: 6 niki f/up Start: 12-26-2025 Annual PCP Team Gandy Dancer richy Disease Visit Annual PCP Team Chronic Disease Visit [facility] Start: 12-26-2025 Shingrix Vaccine (1 of 2) Gay grix Vaccine (1 of 2) [facility] Comment on above: Postponed from 04/07 (Declined at this time) Start: 12-26-2025 Urine microalbumin profile DTa P,Tdap,Td Vaccine (3 - Td or Tdap) [facility] Comment on above: Postponed from 11/20 (Declined at this time) Start: 09-23-2025 Screening for malign ant neoplasm of breast Mammogram Screening [facility] Start: 06-18-2025 End: 06-18-2025 Patient encounter procedure 06/18/2025 10:40 AM EST Office Visit [facility] [address] [place] [address] Liliam Alaniz MD [address] [place], [place] [address] medicare wellness [facility] Comment on above: medicare wellness Start: 06-14-2025 Annual PCP Team Gandy Dancer richy Disease Visit Annual PCP Team Chronic Disease Visit [facility] Start: 06-14-2025 Depression Screening Depression Scre ening [facility] Start: 06-14-2025 Medicare Annual Well ness Visit Medicare Annual Wellness Visit [facility] Start: 06-10-2025 DIABETES SCREEN DIABETES SCREEN [facility] Start: 06-10-2025 Diabetes Screening Diabetes Screenin g [facility] Start: 04-17-2025 ambulatory Ambulatory Facility:[facility] Start: 04-08-2025 Catheterization of l eft heart [facility] Start: 04-08-2025 Partial thromboplast in time, activated [facility] Start: 04-08-2025 Prothrombin time [facility] Start: 04-08-2025 End: 04-08-2025 Evaluation of diagnostic study results [facility] Start: 03-24-2025 End: 03-24-2025 Patient encounter procedure 03/24/2025 2:20 PM EDT Office Visit [facility] [address] [place] [address] Mikaela Mcdonald MD [address] [place] [id number] Referral per [facility] for a-flutter, discuss catheter ablation EKG dlm [facility] Comment on above: Referral per [facility] for a-flutter, discuss catheter ablation EKG dlm Start: 03-03-2025 Influenza vaccination [facility] Start: 02-10-2025 Care planning and pr oblem solving actions [facility] Start: 02-10-2025 Patient discharge [facility] Start: 02-10-2025 [facility] Start: 02-09-2025 [facility] Start: 02-07-2025 Following clinical p athway protocol [facility] Start: 02-07-2025 Assessment of risk o f venous thromboembolism [facility] Start: 02-07-2025 Insertion of cathete r into peripheral vein [facility] Start: 02-07-2025 Measuring intake and output [facility] Start: 02-07-2025 Notification of physician [facility] Start: 02-07-2025 Providing care accor ding to standard [facility] Start: 02-07-2025 Provision of activit y privileges [facility] Start: 02-07-2025 Referral to flower grader [facility] Start: 02-07-2025 [facility] Start: 02-07-2025 Care planning and pr oblem solving actions [facility] Start: 02-07-2025 Verification routine [facility] Start: 02-07-2025 Hospital admission, emergency, from emergency room, medical nature [facility] Start: 02-07-2025 Admission procedure [facility] Start: 02-07-2025 End: 02-08-2025 [facility] Start: 02-07-2025 End: 02-07-2025 Evaluation of diagnostic study results [facility] Start: 02-07-2025 [facility] Start: 01-31-2025 End: 01-31-2025 Evaluation of diagnostic study results [facility] Start: 01-20-2025 End: 01-20-2025 Evaluation of diagnostic study results [facility] Start: 01-15-2025 End: 01-15-2025 Evaluation of diagnostic study results [facility] Start: 01-13-2025 Patient discharge [facility] Start: 01-10-2025 End: 01-10-2025 Evaluation of diagnostic study results [facility] Start: 12-30-2024 Influenza vaccination Influenza Vacc ine (#1) [facility] Comment on above: Postponed from 03/03 (Declined at this time) Start: 12-27-2024 End: 12-27-2024 Patient encounter procedure 12/27/2024 1:40 PM EDT Office Visit [facility] [address] [place] [address] Liliam Alaniz MD [address] [place] [address] 6 month follow up [facility] Comment on above: 6 month follow up Start: 12-21-2024 DIABETES SCREEN DIABETES SCREEN [facility] Start: 12-19-2024 Annual PCP Team Gandy Dancer richy Disease Visit Annual PCP Team Chronic Disease Visit [facility] Start: 12-19-2024 BP Controlled (<130/80) BP Controlle d (<130/80) [facility] Start: 09-18-2024 End: 09-18-2024 Patient encounter procedure 09/18/2024 12:50 PM EDT Appointment Mammogram [address] [place] [address] Mammogram Start: 09-16-2024 End: 09-16-2024 [facility] Start: 09-16-2024 End: 09-16-2024 [facility] Start: 09-16-2024 Evaluation of diagno stic study results 12 Lead EKG performed by [facility] Start: 09-02-2024 End: 09-02-2024 Patient encounter procedure 09/02/2024 1:30 PM EST Appointment Mammogram [address] [place] [address] Encounter for screening mammogram for breast cancer [Z12.31] Mammogram Comment on above: Encounter for screen ing mammogram for breast cancer [Z12.31] Start: 08-28-2024 Screening for malign ant neoplasm of breast Mammogram Screening [facility] Start: 07-03-2024 Advance Directive Discussion Advance Directive Discussion [facility] Start: 06-14-2024 End: 06-14-2024 Patient encounter procedure [facility] Comment on above: 6 month follow up Medicare Wellness Start: 06-05-2024 Annual PCP Team Gandy Dancer richy Disease Visit Annual PCP Team Chronic Disease Visit [facility] Start: 06-05-2024 RSV Vaccine (1 - 1-d ose 60+ series) RSV Vaccine (1 - 1-dose 60+ series) [facility] Comment on above: Postponed from 04/07 (Declined at this time) Start: 06-01-2024 DIABETES SCREEN DIABETES SCREEN [facility] Start: 03-03-2024 Influenza vaccination C [facility] Start: 12-31-2023 Influenza vaccination Influenza Vacc ine (#1) [facility] Comment on above: Postponed from 03/03 (Declined at this time) Start: 12-24-2023 Annual PCP Team Gandy Dancer richy Disease Visit Annual PCP Team Chronic Disease Visit [facility] Start: 12-24-2023 BP Controlled (<130/80) BP Controlle d (<130/80) [facility] Start: 12-24-2023 Urine microalbumin profile DTa P,Tdap,Td Vaccine (3 - Td or Tdap) [facility] Comment on above: Postponed from 11/20 (Declined at this time) Start: 12-20-2023 End: 12-20-2023 Patient encounter procedure 12/20/2023 9:00 AM EDT Office Visit [facility] [address] [place] [address] Liliam Alaniz MD [address] [place] [address] 6 month follow up [facility] Comment on above: 6 month follow up Start: 12-15-2023 BP CONTROLLED (<130/80) BP CONTROLLE D (<130/80) [facility] Start: 12-15-2023 End: 12-15-2023 ambulatory 12/15/2023 1:15 PM EDT Results Only [facility] Draw Station [address] [place] [address] [facility] Station Start: 12-14-2023 End: 03-14-2024 25-hydroxyvitamin D3 [Mass/volume] in Serum or Plasma VITAMIN D 25 HYDROXY Lab Routine Vitamin D deficiency Expected: 12/14/2023, Expires: 03/14/2024 [facility] Comment on above: Expected: 12/14/2023 , Expires: 03/14/2024 Start: 12-14-2023 End: 03-14-2024 CBC W Auto Differential panel - Blood COMPLETE BLOOD COUNT AND DIFFERENTIAL Lab Routine Encounter for therapeutic drug monitoring Expected: 12/14/2023, Expires: 03/14/2024 [facility] Work Phone: Comment on above: Expected: 12/14/2023 , Expires: 03/14/2024 Start: 12-14-2023 End: 03-14-2024 Comprehensive metabolic 2000 panel - Serum or Plasma COMPREHENSIVE METABOLIC PANEL Lab Routine Encounter for therapeutic drug monitoring Expected: 12/14/2023, Expires: 03/14/2024 [facility] Comment on above: Expected: 12/14/2023 , Expires: 03/14/2024 Start: 12-14-2023 End: 03-14-2024 LIPID PANEL, NONFASTING LIPID PANEL, NONFASTING Lab Routine Dyslipidemia Expected: 12/14/2023, Expires: 03/14/2024 [facility] Comment on above: Expected: 12/14/2023 , Expires: 03/14/2024 Start: 09-14-2023 BP CONTROLLED (<130/80) BP CONTROLLE D (<130/80) [facility] Start: 09-07-2023 ANNUAL PCP TEAM SUBSCRIPTION CREW LEADER RICHY DISEASE VISIT ANNUAL PCP TEAM CHRONIC DISEASE VISIT [facility] Start: 09-07-2023 BP CONTROLLED (<130/80) BP CONTROLLE D (<130/80) [facility] Start: 07-28-2023 Mammography [facility] Start: 07-03-2023 Advance Directive Discussion Advance Directive Discussion [facility] Start: 07-03-2023 Behavioral Health Screening Behavioral Health Screening [facility] Start: 07-03-2023 Depression Assessment Depression Ass essment [facility] Start: 06-25-2023 ANNUAL PCP TEAM SUBSCRIPTION CREW LEADER RICHY DISEASE VISIT ANNUAL PCP TEAM CHRONIC DISEASE VISIT [facility] Start: 06-22-2023 SHINGRIX VACCINE (1 of 2) GAY GRIX VACCINE (1 of 2) [facility] Comment on above: Postponed from 04/07 (Declined at this time) Start: 04-13-2023 [facility] Start: 03-03-2023 Covid-19 Vaccine ( season) Covid-19 Vaccine ( season) [facility] Start: 03-03-2023 Influenza vaccination C [facility] Start: 02-22-2023 ANNUAL PCP TEAM SUBSCRIPTION CREW LEADER RICHY DISEASE VISIT ANNUAL PCP TEAM CHRONIC DISEASE VISIT [facility] Start: 02-07-2023 BP CONTROLLED (<130/80) BP CONTROLLE D (<130/80) [facility] Start: 12-30-2022 Influenza vaccination INFLUENZA (#1) [facility] Comment on above: Postponed from 03/03 (Declined at this time) Start: 12-22-2022 Adult depression scr eening assessment DEPRESSION SCREENING [facility] Start: 12-22-2022 ANNUAL PCP TEAM SUBSCRIPTION CREW LEADER RICHY DISEASE VISIT ANNUAL PCP TEAM CHRONIC DISEASE VISIT [facility] Start: 12-22-2022 BP CONTROLLED (<130/80) BP CONTROLLE D (<130/80) [facility] Start: 12-22-2022 COVID-19 VACCINE (3 - Booster for Pfizer series) COVID-19 VACCINE (3 - Booster for Pfizer series) [facility] Comment on above: Postponed from 03/04 (Declined at this time) Postponed from 11/27 (Declined at this time) Start: 12-22-2022 PNEUMOCOCCAL: 65+ (1 - PCV) PNEUMOCOCCAL: 65+ (1 - PCV) [facility] Comment on above: Postponed from 04/07 (Declined at this time) Start: 12-22-2022 Urine microalbumin profile DTA P,TDAP,TD (3 - Td or Tdap) [facility] Comment on above: Postponed from 11/20 (Declined at this time) Start: 07-06-2022 Mammography MAMMOGRAM [facility] Start: 07-03-2022 ADVANCE DIRECTIVE DISCUSSION ADVANCE DIRECTIVE DISCUSSION [facility] Start: 07-03-2022 DEPRESSION ASSESSMENT DEPRESSION ASS ESSMENT [facility] Start: 06-21-2022 ANNUAL PCP TEAM SUBSCRIPTION CREW LEADER RICHY DISEASE VISIT ANNUAL PCP TEAM CHRONIC DISEASE VISIT [facility] Start: 06-21-2022 SHINGRIX VACCINE (1 of 2) GAY GRIX VACCINE (1 of 2) [facility] Comment on above: Postponed from 04/07 (Declined at this time) Start: 05-25-2022 End: 07-25-2022 25-hydroxyvitamin D3 [Mass/volume] in Serum or Plasma VITAMIN D 25 HYDROXY Lab Routine Vitamin D deficiency Expected: 05/25/2022 (Approximate), Expires: 07/25/2022 [facility] Work Phone: Comment on above: Expected: 05/25/2022 (Approximate), Expires: 07/25/2022 Start: 05-25-2022 End: 07-25-2022 CBC panel - Blood by Automated count CBC Lab Routine Essential hypertension Encounter for long-term current use of medication Expected: 05/25/2022 (Approximate), Expires: 07/25/2022 [facility] Work Phone: Comment on above: Expected: 05/25/2022 (Approximate), Expires: 07/25/2022 Start: 05-25-2022 End: 07-25-2022 Comprehensive metabolic 2000 panel - Serum or Plasma COMP METABOLIC PANEL Lab Routine Essential hypertension Encounter for long-term current use of medication Expected: 05/25/2022 (Approximate), Expires: 07/25/2022 [facility] Work Phone: Comment on above: Expected: 05/25/2022 (Approximate), Expires: 07/25/2022 Start: 05-25-2022 End: 07-25-2022 Hemoglobin A1c in Blood HGB A1C Lab Routine Encounter for long-term current use of medication Expected: 05/25/2022 (Approximate), Expires: 07/25/2022 [facility] Work Phone: Comment on above: Expected: 05/25/2022 (Approximate), Expires: 07/25/2022 Start: 05-25-2022 End: 07-25-2022 Lipid 1996 panel - Serum or Plasma LIPID PANEL BASIC Lab Routine Essential hypertension Expected: 05/25/2022 (Approximate), Expires: 07/25/2022 [facility] Work Phone: Comment on above: Expected: 05/25/2022 (Approximate), Expires: 07/25/2022 Start: 05-25-2022 End: 07-25-2022 Thyrotropin [Units/volume] in Serum or Plasma TSH BLD Lab Routine Elevated TSH Paroxysmal atrial fibrillation (HCC) Expected: 05/25/2022 (Approximate), Expires: 07/25/2022 [facility] Work Phone: Comment on above: Expected: 05/25/2022 (Approximate), Expires: 07/25/2022 Start: 05-25-2022 End: 07-25-2022 Thyroxine (T4) free [Mass/volume] in Serum or Plasma T4 FREE/FREE THYROX Lab Routine Elevated TSH Paroxysmal atrial fibrillation (HCC) Expected: 05/25/2022 (Approximate), Expires: 07/25/2022 [facility] Work Phone: Comment on above: Expected: 05/25/2022 (Approximate), Expires: 07/25/2022 Start: 05-25-2022 End: 07-25-2022 Triiodothyronine (T3) Free [Mass/volume] in Serum or Plasma T3 FREE BLD Lab Routine Elevated TSH Paroxysmal atrial fibrillation (HCC) Expected: 05/25/2022 (Approximate), Expires: 07/25/2022 [facility] Work Phone: Comment on above: Expected: 05/25/2022 (Approximate), Expires: 07/25/2022 Start: 05-10-2022 End: 07-10-2022 Thyrotropin [Units/volume] in Serum or Plasma TSH BLD Lab Routine Palpitations Expected: 05/10/2022 (Approximate), Expires: 07/10/2022 [facility] Work Phone: Comment on above: Expected: 05/10/2022 (Approximate), Expires: 07/10/2022 Start: 03-03-2022 Influenza vaccination C [facility] Start: 02-07-2022 End: 04-09-2022 THYROID PEROXIDASE ANTIBODY BLOOD THYROID PEROXIDASE ANTIBODY BLOOD Lab Routine Paroxysmal atrial fibrillation (HCC) Palpitations Elevated TSH Expected: 02/07/2022, Expires: 04/09/2022 [facility] Work Phone: Comment on above: Expected: 02/07/2022 , Expires: 04/09/2022 Start: 01-31-2022 End: 04-02-2022 Thyrotropin [Units/volume] in Serum or Plasma TSH BLD Lab Routine Thyroid cyst Expected: 01/31/2022, Expires: 04/02/2022 [facility] Work Phone: Comment on above: Expected: 01/31/2022 , Expires: 04/02/2022 Start: 01-31-2022 End: 04-02-2022 Thyroxine (T4) free [Mass/volume] in Serum or Plasma T4 FREE/FREE THYROX Lab Routine Thyroid cyst Expected: 01/31/2022, Expires: 04/02/2022 [facility] Work Phone: Comment on above: Expected: 01/31/2022 , Expires: 04/02/2022 Start: 12-13-2021 Adult depression scr eening assessment DEPRESSION SCREENING [facility] Start: 11-20-2021 Urine microalbumin profile [facility] Start: 09-03-2021 Bx breast w/device 1 st lesion stereotactic guid BX BREAST 1ST LESION STRTCTC [facility] Work Phone: Start: 07-03-2021 ADVANCE DIRECTIVE DISCUSSION ADVANCE DIRECTIVE DISCUSSION [facility] Start: 07-03-2021 DEPRESSION ASSESSMENT DEPRESSION ASS ESSMENT [facility] Start: 03-04-2021 COVID-19 VACCINE (3 - Booster for Pfizer series) COVID-19 VACCINE (3 - Booster for Pfizer series) [facility] Start: 2012 RSV Vaccine (1 - 1-d ose 60+ series) RSV Vaccine (1 - 1-dose 60+ series) [facility] Start: 2002 Shingrix Vaccine (1 of 2) Gay grix Vaccine (1 of 2) [facility] Start: 1997 COLOGUARD (FIT-DNA) COLOGUARD (FIT-D NA) [facility] Start: [address] COLONOGRAPHY [facility] Start: 1997 FECAL OCCULT BLOOD FECAL OCCULT BLOO D [facility] Start: 1997 Screening for malign ant neoplasm of colon [facility] Start: 1997 SIGMOIDOSCOPY SIGMOIDOSCOPY [facility] Start: 1970 BP CONTROLLED (<130/80) BP CONTROLLE D (<130/80) [facility] Start: 1970 Depression Screening Depression Scre ening [facility] End: 12-19-2024 25-hydroxyvitamin D3 [Mass/volume] in Serum or Plasma VITAMIN D 25 HYDROXY Lab Routine Vitamin D deficiency Every 6 months for 90 Occurrences starting 12/20/2023 until 12/19/2024 [facility] Comment on above: Every 6 months for 9 0 Occurrences starting 12/20/2023 until 12/19/2024 End: 12-19-2024 Basic metabolic 2000 panel - Serum or Plasma BASIC METABOLIC PANEL Lab Routine Essential hypertension Encounter for long-term current use of medication 60 Occurrences starting 12/20/2023 until 12/19/2024 [facility] Comment on above: 60 Occurrences start ing 12/20/2023 until 12/19/2024 Basic metabolic 2008 panel with ionized calcium - Serum or Plasma [facility] Basic metabolic 2008 panel with ionized calcium - Serum or Plasma [facility] End: 12-19-2024 CBC panel - Blood by Automated count COMPLETE BLOOD COUNT Lab Routine Essential hypertension Every 6 months for 90 Occurrences starting 12/20/2023 until 12/19/2024 [facility] Comment on above: Every 6 months for 9 0 Occurrences starting 12/20/2023 until 12/19/2024 CBC W Auto Different ial panel - Blood [facility] End: 12-19-2024 Comprehensive metabolic 2000 panel - Serum or Plasma COMPREHENSIVE METABOLIC PANEL Lab Routine Essential hypertension Every 6 months for 90 Occurrences starting 12/20/2023 until 12/19/2024 [facility] Work Phone: Comment on above: Every 6 months for 9 0 Occurrences starting 12/20/2023 until 12/19/2024 End: 07-14-2025 DBT Breast - bilateral screening [facility] Routine Encounter for screening mammogram for breast cancer 1 Occurrences starting 06/14/2024 until 07/14/2025 [facility] Work Phone: Comment on above: 1 Occurrences starti ng 06/14/2024 until 07/14/2025 DBT Breast - bilater al screening [facility] Radiology Routine Encounter for screening mammogram for breast cancer 09/23/2024 1:32 PM EDT [facility] Work Phone: Evaluation of diagno stic study results [facility] End: 12-19-2024 Lipid 1996 panel - Serum or Plasma LIPID PANEL BASIC Lab Routine Essential hypertension Every 6 months for 90 Occurrences starting 12/20/2023 until 12/19/2024 [facility] Comment on above: Every 6 months for 9 0 Occurrences starting 12/20/2023 until 12/19/2024 End: 12-19-2024 LIPID PANEL, NONFASTING LIPID PANEL, NONFASTING Lab Routine Essential hypertension Every 6 months for 90 Occurrences starting 12/20/2023 until 12/19/2024 [facility] Comment on above: Every 6 months for 9 0 Occurrences starting 12/20/2023 until 12/19/2024 End: 07-22-2023 [facility] SCREENING [facility] Radiology Routine Encounter for screening mammogram for breast cancer 1 Occurrences starting 06/22/2022 until 07/22/2023 [facility] Work Phone: Comment on above: 1 Occurrences starti ng 06/22/2022 until 07/22/2023 NM Heart Views W str ess and W radionuclide IV [facility] Patient Education [facility] Work Phone: Patient referral [facility] Work Phone: SURGICAL PATHOLOGY [facility] Work Phone: Comment on above: Release Upon Orderin g for 1 Occurrences starting 11/02/2021, 1 completed Thyrotropin [Units/v olume] in Serum or Plasma TSH BLD Lab Routine Thyroid cyst 02/02/2022 12:57 PM EDT [facility] Work Phone: End: 06-22-2023 Thyrotropin [Units/volume] in Serum or Plasma TSH BLD Lab Routine Elevated TSH Paroxysmal atrial fibrillation (HCC) Essential hypertension Encounter for long-term current use of medication Generalized anxiety disorder Every 2 months for 6 Occurrences starting 06/22/2022 until 06/22/2023 [facility] Work Phone: Comment on above: Every 2 months for 6 Occurrences starting 06/22/2022 until 06/22/2023 Thyroxine (T4) free [Mass/volume] in Serum or Plasma T4 FREE/FREE THYROX Lab Routine Thyroid cyst 02/02/2022 12:57 PM EDT [facility] Work Phone: End: 06-22-2023 Thyroxine (T4) free [Mass/volume] in Serum or Plasma T4 FREE/FREE THYROX Lab Routine Elevated TSH Paroxysmal atrial fibrillation (HCC) Essential hypertension Encounter for long-term current use of medication Generalized anxiety disorder Every 2 months for 6 Occurrences starting 06/22/2022 until 06/22/2023 [facility] Work Phone: Comment on above: Every 2 months for 6 Occurrences starting 06/22/2022 until 06/22/2023 End: 06-22-2023 Triiodothyronine (T3) Free [Mass/volume] in Serum or Plasma T3 FREE BLD Lab Routine Elevated TSH Paroxysmal atrial fibrillation (HCC) Essential hypertension Encounter for long-term current use of medication Generalized anxiety disorder Every 2 months for 6 Occurrences starting 06/22/2022 until 06/22/2023 [facility] Work Phone: Comment on above: Every 2 months for 6 Occurrences starting 06/22/2022 until 06/22/2023 Troponin T.cardiac [Mass/volume] in Serum or Plasma by High sensitivity method [facility] End: 03-02-2023 Us soft tissue head & neck real time imge docm US THYROID/PARATHYROID Radiology Routine Thyroid cyst Elevated TSH 1 Occurrences starting 01/31/2022 until 03/02/2023 [facility] Work Phone: Comment on above: 1 Occurrences starti ng 01/31/2022 until 03/02/2023 [facility] Immunizations Immunization Date Immunization Notes Care Provider Fa cility 10-02-2020 Covid (Pfizer) Dr. Liliam pandey Work Phone: [facility] 09-11-2020 Covid (Pfizer) Dr. Liliam pandey Work Phone: [facility] 06-16-2020 influenza, high-dose , quadrivalent vaccine (FLUZONE HIGH DOSE QUADRIVALENT) Jake Boyle MD Work Phone: [facility] 06-16-2020 influenza virus vaccine, unspecified formulation Screen Wstr [facility] 11-21-2011 tetanus toxoid, redu krystina diphtheria toxoid, and acellular pertussis vaccine, adsorbed Jake Boyle MD Work Phone: [facility] Work Phone: 04-08-2009 influenza virus vaccine, unspecified formulation Jake Boyle MD Work Phone: [facility] Work Phone: 08-31-1996 diphtheria and tetan us toxoids, adsorbed for pediatric use Jake Boyle MD Work Phone: [facility] Work Phone: Payers Date Payer Category Payer Self-pay [id number] 2017 [facility] DICARE SUPPLEMENT [id number] 2017 Medicare MEDICARE MEDICAR E A AND B [id number] 2017-Present [phone] [place] [address] Medicare [id number] 2017 Medicare [id number] 2017 Unknown ANTHEM ANTHEM ME DICARE SUPPLEMENT [id number] 2017-Present [phone] [address] Indemnity [id number] 2017 Unknown ANTHEM ANTHEM ME DICARE SUPPLEMENT [id number] 2017- [phone] [place] [address] Indemnity [id number] 2017 Medicare [id number] 2017 Unknown [id number] 2009 Unknown [id number] Unknown [id number] .[id number]. 2.462 Unknown [id number]. 2.462 Unknown [id number] .840.1.851176.3.579. 2.462 Unknown [id number] .16840.1.649545.3.579. 2.462 Unknown [id number] 2.840.1.797139.3.579. 2.462 Unknown [id number] 2.840.1.366622.3.579. 2.462 Unknown [id number] 2.16.840.1.589062.3.579. 2.462 Unknown [id number] 2.16.840.1.313438.3.579. 2.462 Unknown [id number] 2.16.840.1.432082.3.579. 2.462 Unknown [id number] 2.16.840.1.170425.3.579. 2.462 Unknown [id number] 2.16.840.1.152765.3.579. 2.462 Unknown [id number] 2.16840.1.342151.3.579. 2.462 Unknown [id number] 2.16.840.1.370741.3.579. 2.462 Unknown [id number] 2.840.1.201031.3.579. 2.462 Unknown [id number] 2.840.1.057123.3.579. 2.462 Unknown [id number] 2.840.1.237794.3.579. 2.462 Unknown [id number] 2.16.840.1.402519.3.579. 2.462 Unknown [id number] 2.16840.1.100949.3.579. 2.462 Unknown [id number] 2.840.1.759712.3.579. 2.462 Unknown [id number] 2.16.840.1.986744.3.579. 2.462 Unknown [id number] 2.16.840.1.622810.3.579. 2.462 Unknown [id number] 2.16.840.1.095827.3.579. 2.462 Unknown [id number] 2.16.840.1.356403.3.579. 2.462 Unknown [id number] 2.16840.1.909453.3.579. 2.462 Unknown [id number] 2.16.840.1.680733.3.579. 2.462 Unknown [id number] 2.16.840.1.549843.3.579. 2.462 Unknown [id number] 2.16.840.1.397337.3.579. 2.462 Unknown [id number] 2.16.840.1.618748.3.579. 2.462 Social History Date Type Detail Facility Start: 06-08-2021 End: 09-26-2023 Tobacco smoking status AZIS Unknown if ever smoked [facility] Start: 10-19-2017 None [facility] Start: 10-19-2017 Spouse/ Significant Other [facility] Start: 11-11-2020 Non-smoker [facility] Start: 1950 Sex Assigned At Female [facility] Start: 02-07-2022 End: 02-07-2025 Tobacco smoking status NHIS Ex-smoker [facility] Start: 07-03-1971 End: 07-03-1986 History of tobacco use Current smoker [facility] Work Phone: Start: 07-03-1971 End: 07-03-1986 History of tobacco use Cigarette Smoker [facility] Work Phone: Start: 11-02-2021 End: 02-17-2025 Alcohol intake Current non-drinker of alcohol (finding) [facility] Start: 06-15-2021 History SDOH Alcohol Frequency 1 [facility] Start: 06-15-2021 History SDOH Alcohol Std Drinks 98 [facility] Start: 06-15-2021 History SDOH Social Connections Phone 4 [facility] Start: 06-15-2021 End: 06-18-2022 History SDOH Social Connections Membership 2 [facility] Start: 06-15-2021 End: 06-18-2022 History SDOH Social Connections Living 3 [facility] Start: 06-15-2021 History SDOH Physical Activity DPW 7 [facility] Start: 06-15-2021 History SDOH Financial 5 [facility] Start: 10-06-2019 Education 21 [facility] Start: 11-28-2012 End: 02-07-2022 Tobacco Comment Quit 1986 [facility] Start: 10-23-2021 End: 03-15-2022 Exposure to SARS-CoV-2 (event) Not sure [facility] Work Phone: Start: 02-07-2022 End: 11-11-2022 Cigarettes smoked current (pack per day) - Reported 1 [facility] Start: 02-07-2022 End: 06-14-2024 Tobacco use and exposure Smokeless tobacco non-user [facility] Work Phone: Start: 06-17-2022 End: 11-11-2022 Social connection and isolation panel [facility] Start: 06-03-2012 In a typical week, how many times do you talk on the telephone with family, friends, or neighbors? Patient refused [facility] Are you now , , , , never or living with a partner? Refused [facility] Do you feel stress - tense, restless, nervous, or anxious, or unable to sleep at night because your mind is troubled all the time - these days [OSQ] Only a little [facility] (I/We) worried richelle er (my/our) food would run out before (I/we) got money to buy more. DK or Refused [facility] Start: 10-07-2019 Gender identity Identifies as female gender (finding) [facility] Start: 10-07-2019 Sexual orientation Heterosexual (finding) [facility] How often to you hav e a drink containing alcohol? Never [facility] Start: 09-16-2024 Sex Female (finding) [facility] Do you belong to any clubs or organizations such as mormon groups, unions, fraternal or athletic groups, or school groups? No [facility] Are you now , , , , never or living with a partner? [facility] Do you feel stress - tense, restless, nervous, or anxious, or unable to sleep at night because your mind is troubled all the time - these days [OSQ] Not at all [facility] Medical Equipment Procedure Code Equipment Code Equipment Origin al Text Equipment Identifier Dates CEMENT,BONE SHLOMO H 1/2 BATCH FDA Start: 02-03-2021 TRIATH CRUC MERY INING FEMORAL FDA Start: 02-03-2021 ([id number]) Coated knee tibi a prosthesis [id number] FDA Start: 02-03-2021 ([id number]) Polyethylene pat juan m prosthesis [id number] FDA Start: 02-03-2021 ([id number]) Tibial insert [id number] FDA Start: 02-03-2021 CEMENT,BONE SHLOMO H 1/2 [...] TRIATH CRUC MERY INING FEMORAL FDA Start: 08-04-2021 CEMENT,BONE SHLOMO H 1/2 BATCH FDA Start: [...] CRUC MERY INING FEMORAL FDA Start: 02-03-2021 Goals Date Patient Goal Desired Activity /State Functional Status Date Assessment Result Facility 02-10-2025 Functional status Ambulates;Bath room Privilege [facility] Work Phone: 01-05-2015 Are you deaf, or do you have serious difficulty hearing No 01/05/2015 1:28 PM Jessica Waggoner LPN No [facility] 01-05-2015 Are you blind, or do you have serious difficulty seeing, even when wearing glasses No 01/05/2015 1:28 PM Jessica Waggoner LPN No [facility] 01-05-2015 Do you have serious difficulty walking or climbing stairs No 01/05/2015 1:28 PM Jessica Waggoner LPN No [facility] 01-05-2015 Do you have difficul ty dressing or bathing No 01/05/2015 1:28 PM Jessica Waggoner LPN No [facility] 01-05-2015 Because of a physica l, mental, or emotional condition, do you have difficulty doing errands alone such as visiting a physician's office or shopping No 01/05/2015 1:28 PM Jessica Waggoner LPN No [facility] Mental Status Date Assessment Result Facility 02-10-2025 Cognitive function Voice/Name [facility] Work Phone: 02-07-2025 Cognitive function Voice/Name [facility] Work Phone: 09-16-2024 Cognitive function Awake;Alert;A ppropriate; Follows Commands [facility] Work Phone: 09-16-2024 Cognitive function Arousable To Voice/Nam e [facility] Work Phone: 04-13-2023 Cognitive function Awake;Alert;A ppropriate; Follows Commands [facility] Work Phone: 01-05-2015 Because of a physica l, mental, or emotional condition, do you have serious difficulty concentrating, remembering, or making decisions No 01/05/2015 1:28 PM EDT Jessica Benoit LPN No [facility] Clinical Notes 04-26-2010 to 03-24-2025 Liliam Alaniz MD - 02/17/2025 2:39 PM Hattie Mendes APRN.SOLE INKER - 02/11/2025 5:15 PM EDTPatient Instructions Note Date & Type Note Facility 03-24-2025 Note HNO ID: [id number] Author: MIKAELA MCDONALD MD Service: ? Author Type: Physician Type: Progress Notes Filed: 03/24/2025 18:36 Note Text: PRIMARY CARE PHYSICIAN: Liliam Alaniz [address] [place] [address] REFERRING PHYSICIAN: Teofilo Dobson ([facility]) [address] [facility] [address] Patient Care Team: Liliam Alaniz MD as PCP - General Katey Stanton APRN.LAWN MOWER OPERATOR as Server Systems Administrator (Internal Medicine) Teofilo Dobson PA-C as Physician Archivist Military History (Cardiology) Sterling [facility] MD as Specialty Hand Trimmer (Cardiology) Recording using ambient Zivity software for draft documentation of the visit was discussed with the patient/authorized car sales representative; all questions welcomed and answered. Patient/authorized car sales representative agreed to proceed CHIEF COMPLAINT: Evaluation of arrhythmia HISTORY OF PRESENT ILLNESS: Mrs. Ohara is a 74 year old female who presents today for evaluation of atrial arrhythmia, referred by [facility]. Ms. Ohara was first diagnosed with atrial fibrillation or atrial flutter in 2017. This has generally been persistent form, she [...] without mention of complication Irritable bowel syndrome [facility] current use of amiodarone 03/23/2025 [facility] current use of antiarrhythmic drug 03/23/2025 Malignant neoplasm of breast (female), unspecified site family history breast cancer Nasal bone fracture 2013 Other acne 05/03/2005 Palpitations 10/05/2006 controlled with atenolol; does not have HTN Paroxysmal atrial fibrillation (HCC) 10/2017 Dr. Alanis Masterson (more content not included)... [facility] 02-17-2025 Note HNO ID: [id number] Author: LILIAM ALANIZ MD Service: ? Author [...] stable in the 50s, and she feels normal for once, without episodes of tachycardia. However, she expresses [...] Winston has an upcoming appointment with Dr. Mcdonald on March 24 to discuss the possibility [...] TID. She notes that the area is coke still cleaner but is improving. PAST MEDICAL HISTORY Diagnosis [...] (5' 4). Weight as of this encounter: 68.8 kg (151 lb 10.8 oz). Last 5 Encounter BP Readings: Date: BP: 02/17/2025 128/72 02/11/2025 130/70 12/26/2024 136/62 08/29/2024 141 (more content not included)... [facility] 02-17-2025 History of Presen t illness Narrative Subjective Winston Ohara is a 74 year [...] stable in the 50s, and she feels normal for once, without episodes of tachycardia. However, she expresses [...] Winston has an upcoming appointment with Dr. Mcdonald on March 24 to discuss the possibility [...] TID. She notes that the area is coke still cleaner but is improving. PAST MEDICAL HISTORY Diagnosis [...] oz) LMP 08/31/2009 SpO2 98% BMI 26.04 kg/m Last 5 Encounter Wt Readings: Date: Wt: 02/17/2025 68.8 kg (151 lb 10.8 oz) 02/11/2025 71.1 kg (156 lb 12 oz) 12/26/2024 70.1 kg (154 lb 8.7 oz) 06/14/2024 69 kg (152 lb 1.9 oz) 12/20/2023 69.9 kg (154 lb) No waist measurement recorded Estimated body mass index is 26.04 kg/m as calculated from the following: Height as of 06/14/24: 162.6 cm (5' 4). Weight as of this encounter: 68.8 kg [...] helps prevent recurrence. - Referred to Dr. Mcdonald (EP) for ablation evaluation; appointment scheduled for [...] further intervention needed at this time. Liliam Alaniz MD Recording using Quotefish software for draft documentation of the visit was discussed with the patient/authorized car sales representative; all questions welcomed and answered. Patient/authorized car sales representative agreed to proceed documented in this encounter [facility] 02-11-2025 Note HNO ID: [id number] Author: HATTIE GARCIA APRN.SOLE INKER Service: ? Author Type: Nurse Practitioner Type: Progress Notes Filed: 02/11/2025 17:21 Note Text: URGENT CARE CATHYZOE Ohara is a 74 year old female. [...] bacitracin and soft sleeve then wrapped with KIM lightly to compress. Education given with marking of wound, if any extension beyond the border marked occurs, she is to call PCP or GO TO ED. Winston Verbalized understanding and agreement with plan of care. Will seek further treatment if any worsening of symptoms occurs. Recording using Quotefish software for draft documentation of the visit was discussed with the patient/authorized car sales representative; all questions welcomed and answered. Patient/authorized car sales representative agreed to proceed Patient given educational [...] Patient agreeable with treatment plan. Hattie Garcia APRN.SOLE INKER History and Record Review Clinical information obtained from an independent historian. History obtained from or confirmed by: family member. External record(s) reviewed: prior inpatient record. Findings from review of inpatient records: Recent admission for A Fib Differential Diagnoses - Cellulitis/Phlebitis is more likely for the following reason(s): Recent IV sites and hospitalization, suggested by HANDP Disposition The patient was discharged. [facility] 02-11-2025 History of Presen t illness Narrative Images from the original note were not included. URGENT CARE CATHY Subjective Winston Ohara is [...] Objective BP 130/70 Pulse 60 Temp 37.8 C (100 F) (Tympanic) Resp 18 Wt 71.1 kg (156 lb 12 oz) LMP 08/31/2009 SpO2 97% BMI 26.91 kg/m Physical Exam Vitals reviewed. Constitutional: General: She [...] bacitracin and soft sleeve then wrapped with KIM lightly to compress. Education given with marking of wound, if any extension beyond the border marked occurs, she is to call PCP or GO TO ED. Winston Verbalized understanding and agreement with plan of care. Will seek further treatment if any worsening of symptoms occurs. Recording using Quotefish software for draft documentation of the visit was discussed with the patient/authorized car sales representative; all questions welcomed and answered. Patient/authorized car sales representative agreed to proceed Patient given educational [...] Patient agreeable with treatment plan. Hattie Garcia APRN.CNP History and Record Review Clinical information obtained from an independent historian. History obtained from or confirmed by: family member. External record(s) reviewed: prior inpatient record. Findings from review of inpatient records: Recent admission for A Fib Differential Diagnoses - Cellulitis/Phlebitis is more likely for the following reason(s): Recent IV sites and hospitalization, suggested by H&P Disposition The patient was discharged. documented in this encounter [facility] 02-11-2025 Instructions Hattie Garcia APRN.CNP - 02/11/2025 5:05 PM EDT R.I.C.E. The general care of your injury includes the following: Resting, Icing, Compressing and Elevating the injured area. Remember this as RICE. REST: Limit the use of the injured [...] as with a splint, cast or an kim bandage. Compression decreases swelling and improves comfort. [...] it up on pillows when lying down. documented in this encounter [facility] 02-10-2025 Discharge summary [facility] 02-10-2025 Note [facility] Medical Records Department [address] [place] [address] Discharge Summary 02/10/25 1500 MR#: [id number] Acct: [id number] Name: WINSTON OHARA Rep #: [id number] : 1950 74 From: Roxana Valerio MD PCP: Dr. Liliam Alaniz MD Status:DIS IN Location: [place] [address] Providers Date of Admission: 02/07/25 Date of Discharge: 02/10/25 Primary Care Physician: Dr. Liliam Alaniz MD Consultations 02/07/25 18:27 Consult: Cardiology Routine Consulting Provider: Enrico Rendon Reason for Consult: aflutter w RVR EMERGENT Consult: No MD Notified: Yes Date Notified: 02/07/25 Time Notified: 16:57 Method of Notification: Verbal Reason For Visit: AFIB Diagnosis Discharge Diagnosis (1) Atrial flutter with rapid ventricular response: Status: Acute Code(s): I48.92 - Unspecified atrial flutter Plan #Atrial flutter with RVR * still tachyardic, with HR in the 110s-120s * on amiodarone drip. Cardiology on board * Received digoxin yesterday. For cardioversion today by cardiology. * Metoprolol increased to 100 mg per cardiology. Continue Xarelto. * has had multiple cardioversions in the past DVT prophylaxis: not indicated as is already on xarelto. Code status: full code # Medications at Discharge Home Medications fluticasone propionate 50 mcg/actuation nasal spray,suspension 15.8 ml NS DAILY PRN ALLERGIES 10/19/17 bismuth subsalicylate 262 mg tablet (Pepto-Bismol) 2 tablet PO Q30-60M PRN Diarrhea 10/08/20 cholecalciferol (vitamin D3) 25 mcg (1,000 unit) tablet (Vitamin D3) 50 mcg PO DAILY Supplement 01/20/21 sertraline 25 mg tablet 25 mg PO DAILY anxiety 08/09/22 acetaminophen 500 mg tablet 1,000 mg PO Q8 PRN pain 09/26/23 zolpidem 5 mg tablet 5 mg PO QHS Sleep 09/26/23 furosemide 40 mg tablet 40 mg PO DAILY PRN edema #30 tabs 12/04/23 rivaroxaban 20 mg tablet 20 mg PO DAILY afib #90 tabs 10/04/24 amiodarone 200 mg tablet 200 mg PO DAILY #30 tabs 02/10/25 metoprolol tartrate 50 mg tablet 50 mg PO BID #60 tabs 02/10/25 Hospital Course Operations None Procedures 2-D Echocardiogram and Cardioversion Summary of Care Provided Minutes Spent on Discharge: 48 Hospital Course: Patient is a 74 y/o F with a PMH as outlined who was admitted via the ED On 02/10/2025 with a complaitn of dizziness. 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 She was told to go to the emergency room. She did have a history of A-fib has been poorly controlled and she had had multiple cardioversions in the past. In the ED she was noted to be in atrial flutter with RVR. She was given a bolus of Cardizem and started on Cardizem drip. She had not been tolerating sotalol 120 mg twice daily on outpatient basis so this had been decreased to 80 mg twice daily and metoprolol succinate 50 mg daily added on. She had cardioversion on January 14, 2024 but lasted only about 5 days before she went back into A-fib. On admission EKG showed atrial flutter with RVR and chest x-ray showed no acute cardiopulmonary pathology. She was admitted to be managed for atrial flutter and A-fib with RVR. She was placed on amiodarone drip and cardiology was consulted. Her heart rate still remained poorly controlled. She therefore had DC cardioversion done on 02/10/2025 by cardiology. During the admission she did receive a dose of digoxin also due to the poorly controlled blood pressure. Her metoprolol was initially increased to 100 mg daily but at time of discharge it was decreased to metoprolol tartrate 50 mg twice daily. She also was discharged on p.o. amiodarone 200 mg daily and her sotalol was discontinued. Per cardiology she is to follow-up with the EP as scheduled for evaluation for ablation. Patient seen and examined prior to discharge. She had no active complaints. Review of systems otherwise negative. Labs and vitals reviewed. Home medication reviewed and reconciled. Physical Exam Const alert, oriented x3 and no apparent distress General Appearance: cooperative and comfortable HEENT normocephalic, head/scalp atraumatic, hearing grossly normal bilaterally, moist oral mucous membranes and oropharynx normal Mouth: oral and palatal mucosa normal Eyes PERRL Neck no lymphadenopathy and supple Lymph Lymphatic: no lymphadenopathy noted Resp normal respiratory effort, normal air movement and clear to auscultation bilaterally Cardio regular rhythm, S1 normal heart sound, S2 normal heart sound and no murmurs Cardio Narrative: mild bradycardia GI normal to inspection, nondistended, normoactive bowel sounds, soft to palpation, non-tender and non- distended Extremity normal to inspection, full ROM, normal capillary refill, no clubbing, cyanosis or edema and no calf tenderness General Extremity: no tenderness to palpation of joints or extremities Skin no rashes (more content not included)... [facility] 02-10-2025 Progress note Note Date/Time February 10, 2025 10:42am [facility] Medical Records Department [address] [place] [address] Progress Note - Cardiology 02/10/25 1037 MR#: [id number] Acct: [id number] Name: WINSTON OHARA Rep #:[id number] : 1950 74 From: Sterling Thapa MD PCP: Dr. Liliam Alaniz MD Status:AD M IN Location: [address] 1 Subjective Subjective Patient seen and evaluated Objective Data Vital Signs: Vital Signs Temp Pulse Resp BP Pulse Ox O2 Del Method O2 Flow Rate 96.1 F L 113 H 14 99/79 94 Room Air 2 02/10/25 09:00 02/10/25 09:00 02/10/25 09:00 02/10/25 09:00 02/10/25 09:00 02/10/25 09:00 02/10/25 07:00 Oxygen Flow Rate (L/min) 2 Oxygen Delivery Method Room Air Weight: 157 lb 6.561 oz Body Mass Index (BMI) 27.0 Intake & Output: Intake and Output for Last 24 Hours 02/08/25 02/09/25 02/10/25 23:59 23:59 23:59 Intake Total 668.02 / 884.72 1405.25 / 1421.95 167.00 / 167.00 Output Total 3 / 3 Balance 668.02 / 884.72 1402.25 / 1418.95 167.00 / 167.00 Lab / Micro Data 02/10/25 05:17 02/10/25 05:17 Labs: Laboratory Results - last 24 hr 02/10/25 05:17: WBC 8.9, RBC 4.00 L, Hgb 12.2, Hct 37.4, MCV 93.5, MCH 30.5, MCHC 32.6, RDW Std Deviation 48.6 H, RDW Coeff of Priscilla 14.4, Plt Count 181, MPV 10.0, Immature Gran % (Auto) 0.400, Neut % (Auto) 73.4 H, Lymph % (Auto) 15.7 L,[place] % (Auto) 9.0, Eos % (Auto) 0.9, Baso % (Auto) 0.6, Absolute Neuts (auto) 6.5, Absolute Lymphs (auto) 1.40, Nucleated RBC % 0, Sodium 139, Potassium 3.8, Chloride 103, Carbon Dioxide 24.9, Anion Gap 11, BUN 17, Creatinine 0.94, Estim Creat Clear Calc 52.42, Est GFR (MDRD) Non-Af 64, BUN/Creatinine Ratio 18.1, Glucose 96, Calcium 9.2 Cardiology Labs/Tests 02/10/25 05:17: WBC 8.9, RBC 4.00 L, Hgb 12.2, Hct 37.4, MCV 93.5, MCH 30.5, MCHC 32.6, Plt Count 181, MPV 10.0, Immature Gran % (Auto) 0.400, Neut % (Auto) 73.4 H, Lymph % (Auto) 15.7 L, [place] % (Auto) 9.0, Eos % (Auto) 0.9, Baso % (Auto) 0.6, Absolute Neuts (auto) 6.5, Nucleated RBC % 0, Sodium 139, Potassium 3.8, Chloride 103, Carbon Dioxide 24.9, Anion Gap 11, BUN 17, Creatinine 0.94, Est GFR (MDRD) Non-Af 64, BUN/Creatinine Ratio 18.1, Glucose 96, Calcium 9.2 Rhythm: EKG: ECHO: Stress Test: Cardiac Cath: PCI: CT Surgery: Holter monitor: EPS: PPM: CXR: Chest CT Scan: Physical Exam Const alert, oriented x3 and no apparent distress General Appearance: cooperative HEENT hearing grossly normal bilaterally Head and Scalp: atraumatic Eyes EOMs intact bilaterally Neck General: normal visual inspection Chest inspection of chest normal and palpation of chest normal Resp normal respiratory effort Auscultation: clear to auscultation bilaterally Cardio S1 normal heart sound and S2 normal heart sound Jugular Venous Distention: JVD Rhythm: abnormal rhythm irregularly irregular GI normal to inspection, nondistended, normoactive bowel sounds Extremity normal capillary refill and no pedal edema Peripheral Pulses: Yes pulses 2+ throughout and femoral pulses present Skin no rashes or lesions noted Neuro oriented x3 and CN's II-XII intact bilaterally Psych Appearance: grossly normal and appropriate Assessment & Plan Assessment/Plan (1) Atrial flutter with rapid ventricular response: PLAN: Atrial flutter with a rapid ventricular response rate. The patient was started on intravenous amiodarone and we did attempt to DC cardioversion today and patient converted to sinus rhythm. The plan will be to try and see whether she would continue on IV amiodarone, switch over to p.o. amiodarone together with metoprolol. Eventually she will need to see battery plate assembler was scheduled for March 25. * She will continue anticoagulation. (2) Essential (primary) hypertension: PLAN: Blood pressure appears to be under good control at this time will switch over to p.o. metoprolol 50 mg twice a day. 02/10/25 1042 <Electronically signed by Sterling Thapa MD> Cosigner Signature (if applicable): CC: ~ Signed [facility] Work Phone: 1(221) 772-188408-11-2025 Procedure note [facility] Medical Records Department [address] [place] [address] [place] [address] Procedure Report 02/10/25 1103 MR#: [id number] Acct: [id number] Name: WINSTON OHARA Rep #:[id number] : 1950 74 From: Gage Zuñiga DO PCP: Dr. Liliam Alaniz MD Status:AD M IN Location: [facility] [id number] Procedures Pulmonary Pulmonary Procedures /Diagnostic Testin Con Sedation Non-invasive Procedural Procedure Information Date of Procedure: 02/10/25 Description of procedure: CONSCIOUS SEDATION REPORT DATE OF SERVICE: February 10, 2025 BRIEF HISTORY OF PRESENT ILLNESS: The patient is a 74-year-old female currently admitted to the hospital with atrial fibrillation with RVR. The patient did undergo a prior cardioversion in December 2024, during which time, propofol was utilized to achieve an appropriate level of sedation. The patient denied any prior anesthetic complications. She is systemically anticoagulated on Xarelto. Her last surface echocardiogram demonstrated an ejection fraction of 35%. PHYSICAL EXAMINATION: VITAL SIGNS: Reviewed and were acceptable. GENERAL: The patient is a female, in no apparent distress, speaking infull sentences. HEENT: Normocephalic, atraumatic. Mucous membranes are moist and pink. Good mouth opening noted. Trachea is midline. Good neck mobility. CHEST: S1, S2 irregularly irregular. No murmurs, rubs or gallops were noted. LUNGS: Clear to auscultation bilaterally without appreciable wheezes, rales or rhonchi. ABDOMEN: Soft, nontender, nondistended. Positive bowel sounds. EXTREMITIES: There is no clubbing, cyanosis or edema. ASA Class: II DESCRIPTION OF PROCEDURE: After confirmation of informed consent, the patient's anesthesia plan was reviewed in detail. Etomidate was chosen. Risks and benefits were reviewed andthe patient agreed to proceed. At 1025, the patient was given 6 mg of etomidate. The patient achieved an appropriate level of sedation and was given a 200 joule synchronized cardioversion by Dr. Thapa at the bedside. This was successful in achieving normal sinus rhythm. The patient was monitored until 1038, at which time she reached her baselinemental status and function. The patient tolerated the procedure well. COMPLICATIONS: None ESTIMATED BLOOD LOSS: None RECOMMENDATIONS: Okay to recover in usual fashion. 02/10/25 1105 Cosigner Signature (if applicable): CC: Dr. Gage Zuñiga DO; Dr. Liliam Alaniz MD~ Signed [facility]08-11-2025 Progress note [facility] Medical Records Department [address] [place] [address] Progress Note - Cardiology 02/10/25 1037 MR#: [id number] Acct: [id number] Name: WINSTON OHARA Rep #:[id number] : 1950 74 From: Sterling Thapa MD PCP: Dr. Liliam Alaniz MD Status:AD M IN Location: [place] [address] Subjective Subjective Patient seen and evaluated Objective Data Vital Signs: Vital Signs Temp Pulse Resp BP Pulse Ox O2 Del Method O2 Flow Rate 96.1 F L 113 H 14 99/79 94 Room Air 2 02/10/25 09:00 02/10/25 09:00 02/10/25 09:00 02/10/25 09:00 02/10/25 09:00 02/10/25 09:00 02/10/25 07:00 Oxygen Flow Rate (L/min) 2 Oxygen Delivery Method Room Air Weight: 157 lb 6.561 oz Body Mass Index (BMI) 27.0 Intake & Output: Intake and Output for Last 24 Hours 02/08/25 02/09/25 02/10/25 23:59 23:59 23:59 Intake Total 668.02 / 884.72 1405.25 / 1421.95 167.00 / 167.00 Output Total 3 / 3 Balance 668.02 / 884.72 1402.25 / 1418.95 167.00 / 167.00 Lab / Micro Data 02/10/25 05:17 02/10/25 05:17 Labs: Laboratory Results - last 24 hr 02/10/25 05:17: WBC 8.9, RBC 4.00 L, Hgb 12.2, Hct 37.4, MCV 93.5, MCH 30.5, MCHC 32.6, RDW Std Deviation 48.6 H, RDW Coeff of Priscilla 14.4, Plt Count 181, MPV 10.0, Immature Gran % (Auto) 0.400, Neut % (Auto) 73.4 H, Lymph % (Auto) 15.7 L,[place] % (Auto) 9.0, Eos % (Auto) 0.9, Baso % (Auto) 0.6, Absolute Neuts (auto) 6.5, Absolute Lymphs (auto) 1.40, Nucleated RBC % 0, Sodium 139, Potassium 3.8, Chloride 103, Carbon Dioxide 24.9, Anion Gap 11, BUN 17, Creatinine 0.94, Estim Creat Clear Calc 52.42, Est GFR (MDRD) Non-Af 64, BUN/Creatinine Ratio 18.1, Glucose 96, Calcium 9.2 Cardiology Labs/Tests 02/10/25 05:17: WBC 8.9, RBC 4.00 L, Hgb 12.2, Hct 37.4, MCV 93.5, MCH 30.5, MCHC 32.6, Plt Count 181, MPV 10.0, Immature Gran % (Auto) 0.400, Neut % (Auto) 73.4 H, Lymph % (Auto) 15.7 L, [place] % (Auto) 9.0, Eos % (Auto) 0.9, Baso % (Auto) 0.6, Absolute Neuts (auto) 6.5, Nucleated RBC % 0, Sodium 139, Potassium 3.8, Chloride 103, Carbon Dioxide 24.9, Anion Gap 11, BUN 17, Creatinine 0.94, Est GFR (MDRD) Non-Af 64, BUN/Creatinine Ratio 18.1, Glucose 96, Calcium 9.2 Rhythm: EKG: ECHO: Stress Test: Cardiac Cath: PCI: CT Surgery: Holter monitor: EPS: PPM: CXR: Chest CT Scan: Physical Exam Const alert, oriented x3 and no apparent distress General Appearance: cooperative HEENT hearing grossly normal bilaterally Head and Scalp: atraumatic Eyes EOMs intact bilaterally Neck General: normal visual inspection Chest inspection of chest normal and palpation of chest normal Resp normal respiratory effort Auscultation: clear to auscultation bilaterally Cardio S1 normal heart sound and S2 normal heart sound Jugular Venous Distention: JVD Rhythm: abnormal rhythm irregularly irregular GI normal to inspection, nondistended, normoactive bowel sounds Extremity normal capillary refill and no pedal edema Peripheral Pulses: Yes pulses 2+ throughout and femoral pulses present Skin no rashes or lesions noted Neuro oriented x3 and CN's II-XII intact bilaterally Psych Appearance: grossly normal and appropriate Assessment & Plan Assessment/Plan (1) Atrial flutter with rapid ventricular response: PLAN: Atrial flutter with a rapid ventricular response rate. The patient was started on intravenousamiodarone and we did attempt to DC cardioversion today and patient converted to sinus rhythm. The plan will be to try and see whether she would continue on IV amiodarone, switch over to p.o. amiodarone together with metoprolol. Eventually she will need to see battery plate assembler was scheduled for March 25. * She will continue anticoagulation. (2) Essential (primary) hypertension: PLAN: Blood pressure appears to be under good control at this time will switch over to p.o. metoprolol 50 mg twice a day. 02/10/25 1042 Cosigner Signature (if applicable): CC: ~ Signed [facility]08-11-2025 Procedure note [facility] Medical Records Department [address] [place] [address] Procedure Report 02/10/25 1030 MR#: [id number] Acct: [id number] Name: WINSTON HOARA Rep #:[id number] : 1950 74 From: Sterling Thapa MD PCP: Dr. Liliam Alaniz MD Status:AD M IN Location: [place] [address] Non-invasive Procedural Procedure Information Date of Procedure: 02/10/25 Pre-Procedure Diagnosis: Atrial fibrillation Post-Procedure Diagnosis: Same Procedure Performed:: DC cardioversion inseam leveler: No Procedure Time Out: 10:14 Procedure Start Time: 10:16 Procedure Stop Time: 10:30 Special Medications: Intravenous etomidate 6 mg Description of procedure: Patient was brought to the cardiac catheterization lab in the postabsorptive nonsedated state. Patient was seen by Dr. Zuñiga of the critical care division. Anterior-posterior pads were applied. Patient was administered 6 mg of intravenous etomidate. 200 J of synchronized DC cardioversion biphasic energy were applied with prompt reversal to sinus rhythm. Premature atrial complexes were noted. Procedure findings: Successful DC cardioversion from atrial fibrillation to sinus rhythm. Plan to be to continue intravenous amiodarone temporarily Consider switching over to oral amiodarone and metoprolol. 02/10/25 1036 Cosigner Signature (if applicable): CC: Dr. Sterling Thapa MD; Dr. Liliam Alaniz MD~ Signed [facility]08-10-2025 Progress note Author Roxana Valerio [facility] Note Date/Time February 09, 2025 3: 57pm [facility] Medical Records Department [address] [place] [address] Progress Note 02/09/25 1042 MR#: [id number] Acct: [id number] Name: WINSTON OHARA Rep #:[id number] : 1950 74 From: Roxana Valerio MD PCP: Dr. Liliam Alaniz MD Status:AD M IN Location: [place] [address] Subjective Subjective Patient seen and examined. She complained of not feeling well. Her heart rate still remains poorly controlled and is in the 120s systolic today. Review of systems is otherwise negative. Objective Data Objective Data Vital Signs: Vital Signs Temp Pulse Resp BP Pulse Ox O2 Del Method O2 Flow Rate 98.2 F 127 H 19 H 104/83 H 95 Nasal Cannula 2 02/09/25 04:00 02/09/25 10:00 02/09/25 10:00 02/09/25 10:00 02/09/25 10:00 02/09/25 10:00 02/09/25 10:00 Oxygen Flow Rate (L/min) 2 Oxygen Delivery Method Nasal Cannula Weight: 157 lb 6.561 oz Body Mass Index (BMI) 27.0 Intake & Output: Intake and Output for Last 24 Hours 02/07/25 02/08/25 02/09/25 23:59 23:59 23:59 Intake Total 230.49 / 383.79 668.02 / 884.72 383.58 / 383.58 Balance 230.49 / 383.79 668.02 / 884.72 383.58 / 383.58 Lab / Micro Data 02/09/25 05:05 02/09/25 05:05 Labs: Laboratory Results - last 24 hr 02/09/25 05:05: WBC 9.3, RBC 4.18 L, Hgb 12.8, Hct 39.1, MCV 93.5, MCH 30.6, MCHC 32.7, RDW Std Deviation 47.4 H, RDW Coeff of Priscilla 14.1, Plt Count 202, MPV 10.6, Immature Gran % (Auto) 0.400, Neut % (Auto) 82.9 H, Lymph % (Auto) 9.6 L, [place] % (Auto) 6.5, Eos % (Auto) 0.4, Baso % (Auto) 0.2, Absolute Neuts (auto) 7.7, Absolute Lymphs (auto) 0.89, Nucleated RBC % 0, Sodium 138, Potassium 3.9, Chloride 102, Carbon Dioxide 21.9, Anion Gap 13, BUN 20 H, Creatinine 0.92, Estim Creat Clear Calc 53.56, Est GFR (MDRD) Non-Af 67, BUN/Creatinine Ratio 21.6 H, Glucose 120 H, Calcium 9.4 Radiography Diagnostic Testing: Radiology Impression Echocardiogram 02/07/25 18:27 Interpretation Summary The 3D full volume ejection fraction is 35-40 %. Ordering Physician: George Nichole Referring Physician: SHOAIB PIZANO Performed By: Cindy Simon RCS Physical Exam Const alert, oriented x3 and no apparent distress General Appearance: cooperative HEENT head/scalp atraumatic, moist oral mucous membranes and oropharynx normal Eyes PERRL Neck no lymphadenopathy and supple Lymph Lymphatic: no lymphadenopathy noted Resp normal respiratory effort, normal air movement and clear to auscultation bilaterally Cardio S1 normal heart sound, S2 normal heart sound and no murmurs Cardio Narrative: afib with RVR. HR still poorly controlled. GI normal to inspection, nondistended, normoactive bowel sounds, soft to palpation and non-tender Extremity normal capillary refill, no clubbing, cyanosis or edema and no calf tenderness General Extremity: no tenderness to palpation of joints or extremities Skin General Skin Exam: no breakdown Neuro CN's II-XII intact bilaterally and no focal motor deficits Motor Exam: general weakness Psych thought process normal and cooperative Appearance: appropriate Assessment & Plan Assessment/Plan (1) Atrial flutter with rapid ventricular response: PLAN: Plan #Atrial flutter with RVR * still tachyardic, with HR in the 110s-120s * on amiodarone drip. Cardiology on board * management as per cardiology. Discussed with cardiology this morning and her flower grader gave her 0.25mg of digoxin IV x 1 today. Cardiology will review her and determine what further adjustments to make. * on xarelto * has had multiple cardioversions which have all failed. Metoprolol and sotalol on hold * DVT prophylaxis: not indicated as is already on xarelto. COde status: full code # Charges/Coding Visit Charges Inpatient E&M: 13061 Subs Hosp L2 02/09/25 1557 <Electronically signed by Roxana Valerio MD> Roxana Valerio MD Cosigner Signature (if applicable): CC: ~ Signed [facility] Work Phone: 1(347) 953-371908-10-2025 Progress note [facility] Medical Records Department [address] [place] [address] Progress Note 02/09/25 1042 MR#: [id number] Acct: [id number] Name: WINSTON OHARA Rep #:[id number] : 1950 74 From: Roxana Valerio MD PCP: Dr. Liliam Alaniz MD Status:AD M IN Location: [place] [address] Subjective Subjective Patient seen and examined. She complained of not feeling well. Her heart rate still remains poorly controlled and is in the 120s systolic today. Review of systems is otherwise negative. Objective Data Objective Data Vital Signs: Vital Signs Temp Pulse Resp BP Pulse Ox O2 Del Method O2 Flow Rate 98.2 F 127 H 19 H 104/83 H 95 Nasal Cannula 2 02/09/25 04:00 02/09/25 10:00 02/09/25 10:00 02/09/25 10:00 02/09/25 10:02/09/25 10:02/09/25 10:00 Oxygen Flow Rate (L/min) 2 Oxygen Delivery Method Nasal Cannula Weight: 157 lb 6.561 oz Body Mass Index (BMI) 27.0 Intake & Output: Intake and Output for Last 24 Hours 02/07/25 02/08/25 02/09/25 23:59 23:59 23:59 Intake Total 230.49 / 383.79 668.02 / 884.72 383.58 / 383.58 Balance 230.49 / 383.79 668.02 / 884.72 383.58 / 383.58 Lab / Micro Data 02/09/25 05:05 02/09/25 05:05 Labs: Laboratory Results - last 24 hr 02/09/25 05:05: WBC 9.3, RBC 4.18 L, Hgb 12.8, Hct 39.1, MCV 93.5, MCH 30.6, MCHC 32.7, RDW Std Deviation 47.4 H, RDW Coeff of Priscilla 14.1, Plt Count 202, MPV 10.6, Immature Gran % (Auto) 0.400, Neut % (Auto) 82.9 H, Lymph % (Auto) 9.6 L, [place] % (Auto) 6.5, Eos % (Auto) 0.4, Baso % (Auto) 0.2, Absolute Neuts (auto) 7.7, Absolute Lymphs (auto) 0.89, Nucleated RBC % 0, Sodium 138, Potassium 3.9, Chloride 102, Carbon Dioxide 21.9, Anion Gap 13, BUN 20 H, Creatinine 0.92, Estim Creat Clear Calc 53.56,Est GFR (MDRD) Non-Af 67, BUN/Creatinine Ratio 21.6 H, Glucose 120 H, Calcium 9.4 Radiography Diagnostic Testing: Radiology Impression Echocardiogram 02/07/25 18:27 Interpretation Summary The 3D full volume ejection fraction is 35-40 %. Ordering Physician: George Nichole Referring Physician: SHOAIB PIZANO Performed By: Cindy Simon RCS Physical Exam Const alert, oriented x3 and no apparent distress General Appearance: cooperative HEENT head/scalp atraumatic, moist oral mucous membranes and oropharynx normal Eyes PERRL Neck no lymphadenopathy and supple Lymph Lymphatic: no lymphadenopathy noted Resp normal respiratory effort, normal air movement and clear to auscultation bilaterally Cardio S1 normal heart sound, S2 normal heart sound and no murmurs Cardio Narrative: afib with RVR. HR still poorly controlled. GI normal to inspection, nondistended, normoactive bowel sounds, soft to palpation and non-tender Extremity normal capillary refill, no clubbing, cyanosis or edema and no calf tenderness General Extremity: no tenderness to palpation of joints or extremities Skin General Skin Exam: no breakdown Neuro CN's II-XII intact bilaterally and no focal motor deficits Motor Exam: general weakness Psych thought process normal and cooperative Appearance: appropriate Assessment & Plan Assessment/Plan (1) Atrial flutter with rapid ventricular response: PLAN: Plan #Atrial flutter with RVR * still tachyardic, with HR in the 110s-120s * on amiodarone drip. Cardiology on board * management as per cardiology. Discussed with cardiology this morning and her flower grader gave her 0.25mg of digoxin IV x 1 today. Cardiology will review her and determine what further adjustments to make. * on xarelto * has had multiple cardioversions which have all failed. Metoprolol and sotalol on hold * DVT prophylaxis: not indicated as is already on xarelto. COde status: full code # Charges/Coding Visit Charges Inpatient E&M: 39258 Subs Hosp L2 02/09/25 7742 Roxana Valerio MD Cosigner Signature (if applicable): CC: ~ Signed [facility]08-10-2025 Progress note Author Enrico Rendon [facility] Note Date/Time February 09, 2025 12 :40pm [facility] Medical Records Department [address] [place] [address] Progress Note - Cardiology 02/09/25 1230 MR#: [id number] Acct: [id number] Name: WINSTON OHARA Rep #:[id number] : 1950 74 From: Enrico Rendon MD PCP: Dr. Liliam Alaniz MD Status:AD M IN Location: [place] [address] Subjective Subjective Patient seen and evaluated today at bedside Comfortable no symptoms of chest pain Mild symptoms of shortness of breath. Objective Data Vital Signs: Vital Signs Temp Pulse Resp BP Pulse Ox O2 Del Method O2 Flow Rate 98.2 F 131 H 19 H 104/83 H 95 Nasal Cannula 2 02/09/25 04:00 02/09/25 11:26 02/09/25 10:00 02/09/25 10:00 02/09/25 10:00 02/09/25 10:00 02/09/25 10:00 Oxygen Flow Rate (L/min) 2 Oxygen Delivery Method Nasal Cannula Weight: 157 lb 6.561 oz Body Mass Index (BMI) 27.0 Intake & Output: Intake and Output for Last 24 Hours 02/07/25 02/08/25 02/09/25 23:59 23:59 23:59 Intake Total 230.49 / 383.79 668.02 / 884.72 383.58 / 383.58 Balance 230.49 / 383.79 668.02 / 884.72 383.58 / 383.58 Lab / Micro Data 02/09/25 05:05 02/09/25 05:05 Labs: Laboratory Results - last 24 hr 02/09/25 05:05: WBC 9.3, RBC 4.18 L, Hgb 12.8, Hct 39.1, MCV 93.5, MCH 30.6, MCHC 32.7, RDW Std Deviation 47.4 H, RDW Coeff of Priscilla 14.1, Plt Count 202, MPV 10.6, Immature Gran % (Auto) 0.400, Neut % (Auto) 82.9 H, Lymph % (Auto) 9.6 L, [place] % (Auto) 6.5, Eos % (Auto) 0.4, Baso % (Auto) 0.2, Absolute Neuts (auto) 7.7, Absolute Lymphs (auto) 0.89, Nucleated RBC % 0, Sodium 138, Potassium 3.9, Chloride 102, Carbon Dioxide 21.9, Anion Gap 13, BUN 20 H, Creatinine 0.92, Estim Creat Clear Calc 53.56, Est GFR (MDRD) Non-Af 67, BUN/Creatinine Ratio 21.6 H, Glucose 120 H, Calcium 9.4 Cardiology Labs/Tests 02/09/25 05:05: WBC 9.3, RBC 4.18 L, Hgb 12.8, Hct 39.1, MCV 93.5, MCH 30.6, MCHC 32.7, Plt Count 202, MPV 10.6, Immature Gran % (Auto) 0.400, Neut % (Auto) 82.9 H, Lymph % (Auto) 9.6 L, [place] % (Auto) 6.5, Eos % (Auto) 0.4, Baso % (Auto)0.2, Absolute Neuts (auto) 7.7, Nucleated RBC % 0, Sodium 138, Potassium 3.9, Chloride 102, Carbon Dioxide 21.9, Anion Gap 13, BUN 20 H, Creatinine 0.92, Est GFR (MDRD) Non-Af 67, BUN/Creatinine Ratio 21.6 H, Glucose 120 H, Calcium 9.4 Rhythm: EKG: ECHO: Stress Test: Cardiac Cath: PCI: CT Surgery: Holter monitor: EPS: PPM: CXR: Chest CT Scan: Radiography Diagnostic Testing: Radiology Impression Echocardiogram 02/07/25 18:27 Interpretation Summary The 3D full volume ejection fraction is 35-40 %. Ordering Physician: George Nichole Referring Physician: SHOAIB PIZANO Performed By: Cindy Simon RCS Physical Exam Cardio Cardio Narrative: Patient seen and evaluated today at bedside Comfortable in bed Still had A-fib with better ventricular rate control Cardiac exam S1-S2 is regular Chest exam clear to auscultation bilateral Examination lower extremity no lower extremity edema. Assessment & Plan Assessment/Plan (1) Atrial flutter with rapid ventricular response: (2) History of cardioversion: (3) Elevated brain natriuretic peptide (BNP) level: (4) Shortness of breath: (5) Essential (primary) hypertension: (6) Single kidney: PLAN: Cardiac care plan recommendation; 75-year-old patient, with history of atrial flutter/A-fib for the last 7 years. Has multiple previous synchronized cardioversions x 4 And she been seen and followed by the cardiology team here at [facility] She is scheduled to see battery plate assembler to discuss possible atrial flutter ablation an appointment was given for March 29. On this admission she came with the palpitation shortness of breath evidently she was in the office and was evaluated by EKG in the office and was sent over to the ED where she was admitted for rate control. She will need to be on anticoagulation with Xarelto. And she could not respond very well to beta-magnolia sotalol/metoprolol Will start the patient on amiodarone. And will continue on the low-dose beta-magnolia metoprolol tartrate 25 twice daily and we added digoxin IV today. For better rate control Repeat echocardiogram showed reduced LV systolic function ejection fraction in the range of 35-40% With moderate LV systolic dysfunction. From cardiac standpoint we will continue rate control with the current medication and consider to DC the amiodarone IV tomorrow and start on amiodaronep.o. With the plan of follow-up with the EP for atrial flutter/A-fib ablation Enrico Rendon MD,FAC,[facility]. billposting supervisor 02/09/25 1240 <Electronically signed by Enrico Rendon MD> Cosigner Signature (if applicable): CC: ~ Signed [facility] Work Phone: 1(766) 950-114208-10-2025 Progress note [facility] Medical Records Department [address] [place] [address] Progress Note - Cardiology 02/09/25 1230 MR#: [id number] Acct: [id number] Name: WINSTON OHARA Rep #:[id number] : 1950 74 From: Enrico Rendon MD PCP: Dr. Liliam Alaniz MD Status:AD M IN Location: [place] [address] Subjective Subjective Patient seen and evaluated today at bedside Comfortable no symptoms of chest pain Mild symptoms of shortness of breath. Objective Data Vital Signs: Vital Signs Temp Pulse Resp BP Pulse Ox O2 Del Method O2 Flow Rate 98.2 F 131 H 19 H 104/83 H 95 Nasal Cannula 2 02/09/25 04:00 02/09/25 11:26 02/09/25 10:00 02/09/25 10:00 02/09/25 10:00 02/09/25 10:00 02/09/25 10:00 Oxygen Flow Rate (L/min) 2 Oxygen Delivery Method Nasal Cannula Weight: 157 lb 6.561 oz Body Mass Index (BMI) 27.0 Intake & Output: Intake and Output for Last 24 Hours 02/07/25 02/08/25 02/09/25 23:59 23:59 23:59 Intake Total 230.49 / 383.79 668.02 / 884.72 383.58 / 383.58 Balance 230.49 / 383.79 668.02 / 884.72 383.58 / 383.58 Lab / Micro Data 02/09/25 05:05 02/09/25 05:05 Labs: Laboratory Results - last 24 hr 02/09/25 05:05: WBC 9.3, RBC 4.18 L, Hgb 12.8, Hct 39.1, MCV 93.5, MCH 30.6, MCHC 32.7, RDW Std Deviation 47.4 H, RDW Coeff of Priscilla 14.1, Plt Count 202, MPV 10.6, Immature Gran % (Auto) 0.400, Neut % (Auto) 82.9 H, Lymph % (Auto) 9.6 L, [place] % (Auto) 6.5, Eos % (Auto) 0.4, Baso % (Auto) 0.2, Absolute Neuts (auto) 7.7, Absolute Lymphs (auto) 0.89, Nucleated RBC % 0, Sodium 138, Potassium 3.9, Chloride 102, Carbon Dioxide 21.9, Anion Gap 13, BUN 20 H, Creatinine 0.92, Estim Creat Clear Calc 53.56,Est GFR (MDRD) Non-Af 67, BUN/Creatinine Ratio 21.6 H, Glucose 120 H, Calcium 9.4 Cardiology Labs/Tests 02/09/25 05:05: WBC 9.3, RBC 4.18 L, Hgb 12.8, Hct 39.1, MCV 93.5, MCH 30.6, MCHC 32.7, Plt Count 202, MPV 10.6, Immature Gran % (Auto) 0.400, Neut % (Auto) 82.9 H, Lymph % (Auto) 9.6 L, [place] % (Auto) 6.5, Eos % (Auto) 0.4, Baso % (Auto)0.2, Absolute Neuts (auto) 7.7, Nucleated RBC % 0, Sodium 138,Potassium 3.9, Chloride 102, Carbon Dioxide 21.9, Anion Gap 13, BUN 20 H, Creatinine 0.92, Est GFR (MDRD) Non-Af 67, BUN/Creatinine Ratio 21.6 H, Glucose 120 H, Calcium 9.4 Rhythm: EKG: ECHO: Stress Test: Cardiac Cath: PCI: CT Surgery: Holter monitor: EPS: PPM: CXR: Chest CT Scan: Radiography Diagnostic Testing: Radiology Impression Echocardiogram 02/07/25 18:27 Interpretation Summary The 3D full volume ejection fraction is 35-40 %. Ordering Physician: George Nichole Referring Physician: SHOAIB PIZANO Performed By: Cindy Simon RCS Physical Exam Cardio Cardio Narrative: Patient seen and evaluated today at bedside Comfortable in bed Still had A-fib with better ventricular rate control Cardiac exam S1-S2 is regular Chest exam clear to auscultation bilateral Examination lower extremity no lower extremity edema. Assessment & Plan Assessment/Plan (1) Atrial flutter with rapid ventricular response: (2) History of cardioversion: (3) Elevated brain natriuretic peptide (BNP) level: (4) Shortness of breath: (5) Essential (primary) hypertension: (6) Single kidney: PLAN: Cardiac care plan recommendation; 75-year-old patient, with history of atrial flutter/A-fib for the last 7 years. Has multiple previous synchronized cardioversions x 4 And she been seen and followed by the cardiology team here at [facility] She is scheduled to see battery plate assembler to discuss possible atrial flutter ablation an appointment was given for March 29. On this admission she came with the palpitation shortness of breath evidently she was in the officeand was evaluated by EKG in the office and was sent over to the ED where she was admitted for rate control. She will need to be on anticoagulation with Xarelto. And she could not respond very well to beta-magnolia sotalol/metoprolol Will start the patient on amiodarone. And will continue on the low-dose beta-magnolia metoprolol tartrate 25 twice daily and we added digoxin IV today. For better rate control Repeat echocardiogram showed reduced LV systolic function ejection fraction in the range of 35-40% With moderate LV systolic dysfunction. From cardiac standpoint we will continue rate control with the current medication and consider to DC the amiodarone IV tomorrow and start on amiodaronep.o. With the plan of follow-up with the EP for atrial flutter/A-fib ablation Enrico Rendon MD,[facility]. billposting supervisor 02/09/25 1240 Cosigner Signature (if applicable): CC: ~ Signed [facility]08-09-2025 Progress note Author Roxana Valerio [facility] Note Date/Time February 08, 2025 4:2 3pm [facility] Medical Records Department [address] [place] [address] Progress Note 02/08/25 1219 MR#: [id number] Acct: [id number] Name: WINSTON OHARA Rep #:[id number] : 1950 74 From: Roxana Valerio MD PCP: Dr. Liliam Alaniz MD Status:AD IN Location: [place] [address] Subjective Subjective Patient seen and examined. She was admitted with a complaint of A-fib with RVR. She had went to her flower grader and was found to be in A-fib so was brought into the ED. I saw her with her meds by her bedside. She still remains tachycardic. She is on amiodarone drip. She denies any chest pain, shortness of breath, dizziness or lightheadedness. Review of systems is otherwise negative. She still remains tachycardic. Objective Data Objective Data Vital Signs: Vital Signs Temp Pulse Resp BP Pulse Ox O2 Del Method 97.8 F 118 H 18 213/78 H 98 Room Air 02/07/25 20:30 02/08/25 11:33 02/08/25 11:33 02/08/25 11:33 02/08/25 11:33 02/08/25 11:33 Oxygen Delivery Method Room Air Weight: 157 lb 6.561 oz Body Mass Index (BMI) 27.0 Intake & Output: Intake and Output for Last 24 Hours 02/06/25 02/07/25 02/08/25 23:59 23:59 23:59 Intake Total 230.49 / 383.79 476.81 / 476.81 Balance 230.49 / 383.79 476.81 / 476.81 Lab / Micro Data 02/08/25 05:20 02/08/25 05:20 Labs: Laboratory Results - last 24 hr 02/07/25 14:13: WBC 7.4, RBC 4.26, Hgb 13.1, Hct 39.4, MCV 92.5, MCH 30.8, MCHC 33.2, RDW Std Deviation 46.4 H, RDW Coeff of Priscilla 14.0, Plt Count 224, MPV 10.8, Immature Gran % (Auto) 0.300, Neut % (Auto) 73.7 H, Lymph % (Auto) 15.7 L, [place] % (Auto) 8.3, Eos % (Auto) 1.5, Baso % (Auto) 0.5, Absolute Neuts (auto) 5.4, Absolute Lymphs (auto) 1.16, Nucleated RBC % 0, Sodium 137, Potassium 3.9, Chloride 101, Carbon Dioxide 23.2, Anion Gap 13, BUN 28 H, Creatinine 1.03, Estim Creat Clear Calc 48.28 L, Est GFR (MDRD) Non-Af 58 L, BUN/Creatinine Ratio 27.6 H, Glucose 147 H, Calcium 9.6, Magnesium 2.2, Troponin T High Sens 12 D, TSH 2.870 02/07/25 16:15: Troponin T Hi Sens 2 Hr 8 02/07/25 20:36: Troponin T Hi Sens 4Hr 7 02/08/25 05:20: WBC 7.5, RBC 3.85 L, Hgb 11.7 L, Hct 35.8 L, MCV 93.0, MCH 30.4,MCHC 32.7, RDW Std Deviation 47.1 H, RDW Coeff of Priscilla 14.1, Plt Count 183, MPV 10.1, Immature Gran % (Auto) 0.300, Neut % (Auto) 79.5 H, Lymph % (Auto) 12.5 L,[place] % (Auto) 6.2, Eos % (Auto) 1.2, Baso % (Auto) 0.3, Absolute Neuts (auto) 6.0, Absolute Lymphs (auto) 0.94, Nucleated RBC % 0, Sodium 138, Potassium 3.9, Chloride 102, Carbon Dioxide 24.8, Anion Gap 11, BUN 22 H, Creatinine 0.94, Estim Creat Clear Calc 52.42, Est GFR (MDRD) Non-Af 64, BUN/Creatinine Ratio 23.8 H, Glucose 116 H, Calcium 9.2 Radiography Diagnostic Testing: Radiology Impression Chest X-Ray 02/07/25 14:50 IMPRESSION: No Acute Findings. Reading Location: [facility] Physical Exam Const alert, oriented x3 and no apparent distress General Appearance: cooperative HEENT head/scalp atraumatic, moist oral mucous membranes and oropharynx normal Neck no lymphadenopathy and supple Lymph Lymphatic: no lymphadenopathy noted Resp normal respiratory effort, normal air movement and clear to auscultation bilaterally Cardio S1 normal heart sound, S2 normal heart sound and no murmurs Cardio Narrative: afib with RVR. HR is up at 110. GI normal to inspection, nondistended, normoactive bowel sounds, soft to palpation and non-tender Extremity normal capillary refill, no clubbing, cyanosis or edema and no calf tenderness General Extremity: no tenderness to palpation of joints or extremities Skin General Skin Exam: no breakdown Neuro CN's II-XII intact bilaterally and no focal motor deficits Motor Exam: general weakness Psych thought process normal and cooperative Appearance: appropriate Assessment & Plan Assessment/Plan (1) Atrial flutter with rapid ventricular response: PLAN: Plan #Atrial flutter with RVR * still tachyardic, with HR in the 110s-120s * on amiodarone drip. Cardiology on board * management as per cardiology. * on xarelto * has had multiple cardioversions which have all failed. Metoprolol and sotalol on hold * DVT prophylaxis: not indicated as is already on xarelto. COde status: full code # Charges/Coding Visit Charges Inpatient E&M: 08413 Subs Hosp L2 02/08/25 1623 <Electronically signed by Roxana Valerio MD> Roxana Valerio MD Cosigner Signature (if applicable): CC: ~ Signed [facility] Work Phone: 1(131) 833-561508-09-2025 Progress note Author Enrico Rendon [facility] Note Date/Time February 08, 2025 3:4 0pm [facility] Medical Records Department [address] [place] [address] Progress Note - Cardiology 02/08/25 1515 MR#: [id number] Acct: [id number] Name: WINSTON OHARA Rep #:[id number] : 1950 74 From: Enrico Rendon MD PCP: Dr. Liliam Alaniz MD Status:AD M IN Location: [place] [address] Subjective Subjective No symptoms reported patient still in A-fib with RVR Objective Data Vital Signs: Vital Signs Temp Pulse Resp BP Pulse Ox O2 Del Method 97.8 F 116 H 18 118/87 H 94 Room Air 02/07/25 20:30 02/08/25 13:00 02/08/25 13:00 02/08/25 13:00 02/08/25 13:00 02/08/25 13:00 Oxygen Delivery Method Room Air Weight: 157 lb 6.561 oz Body Mass Index (BMI) 27.0 Intake & Output: Intake and Output for Last 24 Hours 02/06/25 02/07/25 02/08/25 23:59 23:59 23:59 Intake Total 230.49 / 383.79 504.92 / 504.92 Balance 230.49 / 383.79 504.92 / 504.92 Lab / Micro Data 02/08/25 05:20 02/08/25 05:20 Labs: Laboratory Results - last 24 hr 02/07/25 14:13: Sodium 137, Potassium 3.9, Chloride 101, Carbon Dioxide 23.2, Anion Gap 13, BUN 28 H, Creatinine 1.03, Estim Creat Clear Calc 48.28 L, Est GFR(MDRD) Non-Af 58 L, BUN/Creatinine Ratio 27.6 H, Glucose 147 H, Calcium 9.6, Magnesium 2.2, Troponin T High Sens 12 D, TSH 2.870 02/07/25 16:15: Troponin T Hi Sens 2 Hr 8 02/07/25 20:36: Troponin T Hi Sens 4Hr 7 02/08/25 05:20: WBC 7.5, RBC 3.85 L, Hgb 11.7 L, Hct 35.8 L, MCV 93.0, MCH 30.4,MCHC 32.7, RDW Std Deviation 47.1 H, RDW Coeff of Priscilla 14.1, Plt Count 183, MPV 10.1, Immature Gran % (Auto) 0.300, Neut % (Auto) 79.5 H, Lymph % (Auto) 12.5 L,[place] % (Auto) 6.2, Eos % (Auto) 1.2, Baso % (Auto) 0.3, Absolute Neuts (auto) 6.0, Absolute Lymphs (auto) 0.94, Nucleated RBC % 0, Sodium 138, Potassium 3.9, Chloride 102, Carbon Dioxide 24.8, Anion Gap 11, BUN 22 H, Creatinine 0.94, Estim Creat Clear Calc 52.42, Est GFR (MDRD) Non-Af 64, BUN/Creatinine Ratio 23.8 H, Glucose 116 H, Calcium 9.2 Cardiology Labs/Tests 02/07/25 14:13: Sodium 137, Potassium 3.9, Chloride 101, Carbon Dioxide 23.2, Anion Gap 13, BUN 28 H, Creatinine 1.03, Est GFR (MDRD) Non-Af 58 L, BUN/Creatinine Ratio 27.6 H, Glucose 147 H, Calcium 9.6, Magnesium 2.2 02/08/25 05:20: WBC 7.5, RBC 3.85 L, Hgb 11.7 L, Hct 35.8 L, MCV 93.0, MCH 30.4,MCHC 32.7, Plt Count 183, MPV 10.1, Immature Gran % (Auto) 0.300, Neut % (Auto) 79.5 H, Lymph % (Auto) 12.5 L, [place] % (Auto) 6.2, Eos % (Auto) 1.2, Baso % (Auto) 0.3, Absolute Neuts (auto) 6.0, Nucleated RBC % 0, Sodium 138, Potassium 3.9, Chloride 102, Carbon Dioxide 24.8, Anion Gap 11, BUN 22 H, Creatinine 0.94,Est GFR (MDRD) Non-Af 64, BUN/Creatinine Ratio 23.8 H, Glucose 116 H, Calcium 9.2 Rhythm: EKG: ECHO: Stress Test: Cardiac Cath: PCI: CT Surgery: Holter monitor: EPS: PPM: CXR: Chest CT Scan: Radiography Diagnostic Testing: Radiology Impression Echocardiogram 02/07/25 18:27 Interpretation Summary The 3D full volume ejection fraction is 35-40 %. Ordering Physician: George Nichole Referring Physician: SHOAIB PIZANO Performed By: Cindy Simon RCS Physical Exam Cardio Cardio Narrative: Cardiac exam S1-S2 with regular Cardiac rhythm showed A-fib with RVR Chest exam mildly diminished air entry bilateral. Assessment & Plan Assessment/Plan (1) Elevated brain natriuretic peptide (BNP) level: (2) History of cardioversion: (3) Atrial flutter with rapid ventricular response: (4) Single kidney: PLAN: Cardiac care plan recommendations; 74-year-old patient admitted with symptoms of palpitation Has atrial flutter with RVR while visiting the cardiology as an outpatient Admitted through the ED and started on amiodarone and continued on beta-magnolia He still had A-fib with RVR Echocardiographic evaluation showed moderate LV systolic dysfunction Ejection fraction in the range of 35-40% significant change from previous echocardiogram where the EF was normal She had a history of mild pulmonary hypertension with mild to moderate TR on previous echo. I discussed cardiac care plan with the nursing staff Will continue amiodarone increase the dose of beta-blockers to metoprolol 25 mg twice daily. Patient already on anticoagulation with Xarelto. To discuss guideline-directed medical therapy Added Aldactone 25 g to the current treatment To monitor electrolytes and renal function patient had a single kidney. And to discuss long-term treatment which can be set up as an outpatient including Entresto/Jardiance or Farxiga. And she is scheduled to see her EP physician at [facility] in March To discuss plan of atrial flutter/A-fib ablation Enrico Rendon MD,[facility] billposting supervisor 02/08/25 1540 <Electronically signed by Enrico Rendon MD> Cosigner Signature (if applicable): CC: ~ Signed [facility] Work Phone: 1(321) 175-723908-09-2025 Progress note [facility] Medical Records Department [address] [place] [address] Progress Note 02/08/25 1219 MR#: [id number] Acct: [id number] Name: WINSTON OHARA Rep #:[id number] : 1950 74 From: Roxnaa Valerio MD PCP: Dr. Liliam Alaniz MD Status:AD IN Location: [place] [address] Subjective Subjective Patient seen and examined. She was admitted with a complaint of A-fib with RVR. She had went to hercardiologist and was found to be in A-fib so was brought into the ED. I saw her with her meds by her bedside. She still remains tachycardic. She is on amiodarone drip. She denies any chest pain, shortness of breath, dizziness or lightheadedness. Review of systems is otherwise negative. She still remains tachycardic. Objective Data Objective Data Vital Signs: Vital Signs Temp Pulse Resp BP Pulse Ox O2 Del Method 97.8 F 118 H 18 213/78 H 98 Room Air 02/07/25 20:30 02/08/25 11:33 02/08/25 11:33 02/08/25 11:33 02/08/25 11:33 02/08/25 11:33 Oxygen Delivery Method Room Air Weight: 157 lb 6.561 oz Body Mass Index (BMI) 27.0 Intake & Output: Intake and Output for Last 24 Hours 02/06/25 02/07/25 02/08/25 23:59 23:59 23:59 Intake Total 230.49 / 383.79 476.81 / 476.81 Balance 230.49 / 383.79 476.81 / 476.81 Lab / Micro Data 02/08/25 05:20 02/08/25 05:20 Labs: Laboratory Results - last 24 hr 02/07/25 14:13: WBC 7.4, RBC 4.26, Hgb 13.1, Hct 39.4, MCV 92.5, MCH 30.8, MCHC 33.2, RDW Std Deviation 46.4 H, RDW Coeff of Priscilla 14.0, Plt Count 224, MPV 10.8, Immature Gran % (Auto) 0.300, Neut % (Auto) 73.7 H, Lymph % (Auto) 15.7 L, [place] % (Auto) 8.3, Eos % (Auto) 1.5, Baso % (Auto) 0.5, AbsoluteNeuts (auto) 5.4, Absolute Lymphs (auto) 1.16, Nucleated RBC % 0, Sodium 137, Potassium 3.9, Chloride 101, Carbon Dioxide 23.2, Anion Gap 13, BUN 28 H, Creatinine 1.03, Estim Creat Clear Calc 48.28 L, Est GFR (MDRD) Non-Af 58 L, BUN/Creatinine Ratio 27.6 H, Glucose 147 H, Calcium 9.6, Magnesium 2.2, Troponin T High Sens 12 D, TSH 2.870 02/07/25 16:15: Troponin T Hi Sens 2 Hr 8 02/07/25 20:36: Troponin T Hi Sens 4Hr 7 02/08/25 05:20: WBC 7.5, RBC 3.85 L, Hgb 11.7 L, Hct 35.8 L, MCV 93.0, MCH 30.4,MCHC 32.7, RDW Std Deviation 47.1 H, RDW Coeff of Priscilla 14.1, Plt Count 183, MPV 10.1, Immature Gran % (Auto) 0.300, Neut% (Auto) 79.5 H, Lymph % (Auto) 12.5 L,[place] % (Auto) 6.2, Eos % (Auto) 1.2, Baso % (Auto) 0.3, Absolute Neuts (auto) 6.0, Absolute Lymphs (auto) 0.94, Nucleated RBC % 0, Sodium 138, Potassium 3.9, Chloride 102, Carbon Dioxide 24.8, Anion Gap 11, BUN 22 H, Creatinine 0.94, Estim Creat Clear Calc 52.42, Est GFR (MDRD) Non-Af 64, BUN/Creatinine Ratio 23.8 H, Glucose 116 H, Calcium 9.2 Radiography Diagnostic Testing: Radiology Impression Chest X-Ray 02/07/25 14:50 IMPRESSION: No Acute Findings. Reading Location: [facility] Physical Exam Const alert, oriented x3 and no apparent distress General Appearance: cooperative HEENT head/scalp atraumatic, moist oral mucous membranes and oropharynx normal Neck no lymphadenopathy and supple Lymph Lymphatic: no lymphadenopathy noted Resp normal respiratory effort, normal air movement and clear to auscultation bilaterally Cardio S1 normal heart sound, S2 normal heart sound and no murmurs Cardio Narrative: afib with RVR. HR is up at 110. GI normal to inspection, nondistended, normoactive bowel sounds, soft to palpation and non-tender Extremity normal capillary refill, no clubbing, cyanosis or edema and no calf tenderness General Extremity: no tenderness to palpation of joints or extremities Skin General Skin Exam: no breakdown Neuro CN's II-XII intact bilaterally and no focal motor deficits Motor Exam: general weakness Psych thought process normal and cooperative Appearance: appropriate Assessment & Plan Assessment/Plan (1) Atrial flutter with rapid ventricular response: PLAN: Plan #Atrial flutter with RVR * still tachyardic, with HR in the 110s-120s * on amiodarone drip. Cardiology on board * management as per cardiology. * on xarelto * has had multiple cardioversions which have all failed. Metoprolol and sotalol on hold * DVT prophylaxis: not indicated as is already on xarelto. COde status: full code # Charges/Coding Visit Charges Inpatient E&M: 73141 Subs Hosp L2 02/08/25 1620 Roxana Valerio MD Cosigner Signature (if applicable): CC: ~ Signed [facility]08-09-2025 Progress note [facility] Medical Records Department [address] [place] [address] Progress Note - Cardiology 02/08/25 4235 MR#: [id number] Acct: [id number] Name: WINSTON OHARA Rep #:[id number] : 1950 74 From: Enrico Rendon MD PCP: Dr. Liliam Alaniz MD Status:AD M IN Location: [place] [address]- [id number] Subjective Subjective No symptoms reported patient still in A-fib with RVR Objective Data Vital Signs: Vital Signs Temp Pulse Resp BP Pulse Ox O2 Del Method 97.8 F 116 H 18 118/87 H 94 Room Air 02/07/25 20:30 02/08/25 13:00 02/08/25 13:00 02/08/25 13:00 02/08/25 13:00 02/08/25 13:00 Oxygen Delivery Method Room Air Weight: 157 lb 6.561 oz Body Mass Index (BMI) 27.0 Intake & Output: Intake and Output for Last 24 Hours 02/06/25 02/07/25 02/08/25 23:59 23:59 23:59 Intake Total 230.49 / 383.79 504.92 / 504.92 Balance 230.49 / 383.79 504.92 / 504.92 Lab / Micro Data 02/08/25 05:20 02/08/25 05:20 Labs: Laboratory Results - last 24 hr 02/07/25 14:13: Sodium 137, Potassium 3.9, Chloride 101, Carbon Dioxide 23.2, Anion Gap 13, BUN 28 H, Creatinine 1.03, Estim Creat Clear Calc 48.28 L, Est GFR(MDRD) Non-Af 58 L, BUN/Creatinine Ratio 27.6 H, Glucose 147 H, Calcium 9.6, Magnesium 2.2, Troponin T High Sens 12 D, TSH 2.870 02/07/25 16:15: Troponin T Hi Sens 2 Hr 8 02/07/25 20:36: Troponin T Hi Sens 4Hr 7 02/08/25 05:20: WBC 7.5, RBC 3.85 L, Hgb 11.7 L, Hct 35.8 L, MCV 93.0, MCH 30.4,MCHC 32.7, RDW Std Deviation 47.1 H, RDW Coeff of Priscilla 14.1, Plt Count 183, MPV 10.1, Immature Gran % (Auto) 0.300, Neut% (Auto) 79.5 H, Lymph % (Auto) 12.5 L,[place] % (Auto) 6.2, Eos % (Auto) 1.2, Baso % (Auto) 0.3, Absolute Neuts (auto) 6.0, Absolute Lymphs (auto) 0.94, Nucleated RBC % 0, Sodium 138, Potassium 3.9, Chloride 102, Carbon Dioxide 24.8, Anion Gap 11, BUN 22 H, Creatinine 0.94, Estim Creat Clear Calc 52.42, Est GFR (MDRD) Non-Af 64, BUN/Creatinine Ratio 23.8 H, Glucose 116 H, Calcium 9.2 Cardiology Labs/Tests 02/07/25 14:13: Sodium 137, Potassium 3.9, Chloride 101, Carbon Dioxide 23.2, Anion Gap 13, BUN 28 H, Creatinine 1.03, Est GFR (MDRD) Non-Af 58 L, BUN/Creatinine Ratio 27.6 H, Glucose 147 H, Calcium 9.6, Magnesium 2.2 02/08/25 05:20: WBC 7.5, RBC 3.85 L, Hgb 11.7 L, Hct 35.8 L, MCV 93.0, MCH 30.4,MCHC 32.7, Plt Count 183, MPV 10.1, Immature Gran % (Auto) 0.300, Neut % (Auto) 79.5 H, Lymph % (Auto) 12.5 L, [place] % (Auto) 6.2, Eos % (Auto) 1.2, Baso % (Auto) 0.3, Absolute Neuts (auto) 6.0, Nucleated RBC % 0, [id number], Potassium 3.9, Chloride 102, Carbon Dioxide 24.8, Anion Gap 11, BUN 22 H, Creatinine 0.94,Est GFR (MDRD) Non-Af 64, BUN/Creatinine Ratio 23.8 H, Glucose 116 H, Calcium 9.2 Rhythm: EKG: ECHO: Stress Test: Cardiac Cath: PCI: CT Surgery: Holter monitor: EPS: PPM: CXR: Chest CT Scan: Radiography Diagnostic Testing: Radiology Impression Echocardiogram 02/07/25 18:27 Interpretation Summary The 3D full volume ejection fraction is 35-40 %. Ordering Physician: George Nichole Referring Physician: SHOAIB PIZANO Performed By: Cindy Simon RCS Physical Exam Cardio Cardio Narrative: Cardiac exam S1-S2 with regular Cardiac rhythm showed A-fib with RVR Chest exam mildly diminished air entry bilateral. Assessment & Plan Assessment/Plan (1) Elevated brain natriuretic peptide (BNP) level: (2) History of cardioversion: (3) Atrial flutter with rapid ventricular response: (4) Single kidney: PLAN: Cardiac care plan recommendations; 74-year-old patient admitted with symptoms of palpitation Has atrial flutter with RVR while visiting the cardiology as an outpatient Admitted through the ED and started on amiodarone and continued on beta-magnolia He still had A-fib with RVR Echocardiographic evaluation showed moderate LV systolic dysfunction Ejection fraction in the range of 35-40% significant change from previous echocardiogram where the EF was normal She had a history of mild pulmonary hypertension with mild to moderate TR on previous echo. I discussed cardiac care plan with the nursing staff Will continue amiodarone increase the dose of beta-blockers to metoprolol 25 mg twice daily. Patient already on anticoagulation with Xarelto. To discuss guideline-directed medical therapy Added Aldactone 25 g to the current treatment To monitor electrolytes and renal function patient had a single kidney. And to discuss long-term treatment which can be set up as an outpatient including Entresto/Jardiance or Farxiga. And she is scheduled to see her EP physician at [facility] in March To discuss plan of atrial flutter/A-fib ablation Enrico Rendon MD,[facility] billposting supervisor 02/08/25 1750 Cosigner Signature (if applicable): CC: ~ Signed [facility]08-08-2025 Consult note Author Enrico Rendon [facility] Note Date/Time February 07, 2025 6:5 9pm [facility] Medical Records Department [address] [place] [address] [place] [address] Consultation - Cardiology 02/07/25 3991 MR#: [id number] Acct: [id number] Name: WINSTON OHARA Rep #:[id number] : 1950 74 From: Enrico Rendon MD PCP: Dr. Liliam Alaniz MD Status:AD M IN Location: [place] [address]- 1 Assessment & Plan Assessment/Plan (1) Paroxysmal atrial fibrillation: (2) Essential (primary) hypertension: (3) Shortness of breath: (4) History of cardioversion: (5) Atrial flutter with rapid ventricular response: PLAN: 74-year-old patient who was seen and evaluated at the cardiology clinic today and was sent over to the ED at [facility] with atrial flutter with variable ventricular rate She had symptoms of dizziness. And noted her rate was 130s 3. And she was started in the ED on treatment with Cardizem. IV iron was sent overto the progressive care unit where patient continued to have atrial flutter withvariable ventricular rate. Patient has multiple previous synchronized cardioversions for atrial flutter/A- fib Currently she been on treatment with sotalol/metoprolol in addition to anticoagulation with Xarelto. Other medical problem include history of hypertension History of depression. Cardiac care plan; Discussed the cardiac care plan with the medical team will start on amiodarone and will continue on anticoagulation. 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 Will review her echocardiogram and we will follow-up clinically. HPI Consult Data Date of Consult: 02/07/25 HPI Narrative Reason for Consultation: Atrial flutter with variable ventricular rate HPI Narrative: WINSTON OHARA, is a 74 F who presents [facility] Medical History Dyspnea Wears glasses Post-menopausal Arthritis History of diverticulitis Former smoker History of pain when walking History of edema Normal stress echocardiogram Hx of thyroid cyst Persistent atrial fibrillation (11/02/20) Paroxysmal atrial flutter (10/2017) Paroxysmal atrial fibrillation (10/2017) Essential (primary) hypertension Single kidney Insomnia Anxiety Atrial fibrillation with RVR Home Medications ?Medication ?Instructions ?Recorded ?Last Taken ?Type fluticasone propionate 50 15.8 ml NS DAILY PRN ALLERGI ES 10/19/17 02/02/21 History mcg/actuation nasal spray,suspension bismuth subsalicylate 262 mg 2 tablet PO Q30-60M PRN D iarrhea 10/08/20 02/02/21 History tablet (Pepto-Bismol) cholecalciferol (vitamin D3) 25 50 mcg PO DAILY Supple ment 01/20/21 02/05/21 17:00 History mcg (1,000 unit) tablet (Vitamin D3) sertraline 25 mg tablet 25 mg PO DAILY anxiety 08/0901/13/25 History acetaminophen 500 mg tablet 1,000 mg PO Q8 PRN pain Unknown History zolpidem 5 mg tablet 5 mg PO QHS Sleep 09/26/23 U nknown History furosemide 40 mg tablet 40 mg PO DAILY PRN edema #30 tabs 12/04/23 Unknown Rx rivaroxaban 20 mg tablet 20 mg PO DAILY afib #90 tabs 10/04/24 01/13/25 Rx metoprolol succinate 50 mg 50 mg PO QDAY afib #90 tabs 01/31/25 Unknown Rx tablet,extended release 24 hr sotalol 80 mg tablet 80 mg PO BID heart #180 tabs 01/31/25 Unknown Rx Allergy/AdvReac Type Severity Reaction Status Date / Time flecainide Allergy Left Verified 01/10/25 09:27 Bundle Branch Block/BUE tingling/leg weakness aspirin (ASA) AdvReac ONLY HAS Verified 01/10/25 09:27 ONE KIDNEY, TOLD TO AVOID cortisone AdvReac CHEST HOT Verified 01/10/25 09:27 & WEIRD NSAIDS (Non-Steroidal AdvReac ONLY HAS Verified 01/10/25 09:27 Anti-Inflamma ONE KIDNEY, TOLD TO AVOID Family [...] do you participate in: walking frequency: daily Physical Exam Cardio Cardio Narrative: Patient seen evaluated at bedside Still complaining of shortness of breath with palpitation child monitor showed atrial flutter with variable ventricular rate Cardiac exam S1-S2 is irregular Chest exam clear to auscultation bilaterally Examination lower extremity no lower extremity edema. Risk Stratification Risk Stratification Applicable: No Objective Data Vital Signs: Vital Signs Temp Pulse Resp BP Pulse Ox O2 Del Method 97.7 F L 105 H 14 111/66 97 Room Air 02/07/25 17:02 02/07/25 18:00 02/07/25 18:00 02/07/25 18:00 02/07/25 18:00 02/07/25 18:00 Oxygen Delivery Method Room Air Weight: 157 lb 6.561 oz Body Mass Index (BMI) 27.0 Intake & Output: Intake and Output for Last 24 Hours 02/05/25 02/06/25 02/07/25 23:59 23:59 23:59 Intake Total 4.25 / 4.25 Balance 4.25 / 4.25 Lab / Micro Data 02/07/25 14:13 02/07/25 14:13 Labs: Laboratory Results - last 24 hr 02/07/25 14:13: WBC 7.4, RBC 4.26, Hgb 13.1, Hct 39.4, MCV 92.5, MCH 30.8, MCHC 33.2, RDW Std Deviation 46.4 H, RDW Coeff of Priscilla 14.0, Plt Count 224, MPV 10.8, Immature Gran % (Auto) 0.300, Neut % (Auto) 73.7 H, Lymph % (Auto) 15.7 L, [place] % (Auto) 8.3, Eos % (Auto) 1.5, Baso % (Auto) 0.5, Absolute Neuts (auto) 5.4, Absolute Lymphs (auto) 1.16, Nucleated RBC % 0, Sodium 137, Potassium 3.9, Chloride 101, Carbon Dioxide 23.2, Anion Gap 13, BUN 28 H, Creatinine 1.03, Estim Creat Clear Calc 48.28 L, Est GFR (MDRD) Non-Af 58 L, BUN/Creatinine Ratio 27.6 H, Glucose 147 H, Calcium 9.6, Magnesium 2.2, Troponin T High Sens 12 D, TSH 2.870 02/07/25 16:15: Troponin T Hi Sens 2 Hr 8 Cardiology Labs/Tests 02/07/25 14:13: WBC 7.4, RBC 4.26, Hgb 13.1, Hct 39.4, MCV 92.5, MCH 30.8, MCHC 33.2, Plt Count 224, MPV 10.8, Immature Gran % (Auto) 0.300, Neut % (Auto) 73.7 H, Lymph % (Auto) 15.7 L, [place] % (Auto) 8.3, Eos % (Auto) 1.5, Baso % (Auto) 0.5, Absolute Neuts (auto) 5.4, Nucleated RBC % 0, Sodium 137, Potassium 3.9, Chloride 101, Carbon Dioxide 23.2, Anion Gap 13, BUN 28 H, Creatinine 1.03, Est GFR (MDRD) Non-Af 58 L, BUN/Creatinine Ratio 27.6 H, Glucose 147 H, Calcium 9.6,Magnesium 2.2 Rhythm: EKG: ECHO: Stress Test: Cardiac Cath: PCI: CT Surgery: Holter monitor: EPS: PPM: CXR: Chest CT Scan: Radiography Diagnostic Testing: Radiology Impression Chest X-Ray 02/07/25 14:50 IMPRESSION: No Acute Findings. Reading Location: [facility] 02/07/25 9201 <Electronically signed by Enrico Rendon MD> Cosigner Signature (if applicable): CC: Dr. Liliam Alaniz MD~ Signed [facility] Work Phone: 1(326) 125-794108-08-2025 History and physical note Author George Nichole [facility] Note Date/Time February 07, 2025 6:2 0pm [facility] Medical Records Department [address] [place] [address] H&P Exam - Hospitalist 02/07/25 1712 MR#: [id number] Acct: [id number] Name: OHARAWINSTON AILEEN Rep #:[id number] : 1950 74 From: George Nichole DO PCP: Dr. Liliam Alaniz MD Status:AD M IN Location: [facility] [id number] HPI - General General Date of Admission: 02/07/25 Date of Service: 02/07/25 Chief Complaint: Dizziness HPI Narrative WINSTON OHARA, is a 74 F who presents with dizziness. She was at her cardiologyoffice today and was noted to have a heart rate of 133. Patient was started to go to the emergency room. In the emergency room, patient has a history of A-fibbut was actually noted to be in atrial flutter. Patient received a total of 40 mg IV diltiazem bolus and then was placed on a diltiazem drip. Since initiationof the diltiazem drip it has not been infusing and her heart rate still been in the 120s to 130s. Patient's IV is currently small gauge IV in her lateral left wrist. Patient is experiencing some chest tightness and palpitations. This is consistent with her history of atrial fib with RVR. Patient was not tolerating sotalol 120 twice daily and so that was decreased to 80 twice daily and then wasadded on metoprolol succinate 50 daily. Patient underwent a cardioversion (her fourth) on January 13 and was in sinus rhythm but she stated that that lasted only for about 5 days before she was back into her A-fib. She states at home that her heart rate is typically in the 90s. [facility] Medical History Dyspnea Wears glasses Post-menopausal Arthritis History of diverticulitis Former smoker History of pain when walking History of edema Normal stress echocardiogram Hx of thyroid cyst Persistent atrial fibrillation (11/02/20) Paroxysmal atrial flutter (10/2017) Paroxysmal atrial fibrillation (10/2017) Essential (primary) hypertension Single kidney Insomnia Anxiety Atrial fibrillation with RVR Home Medications ?Medication ?Instructions ?Recorded ?Last Taken ?Type fluticasone propionate 50 15.8 ml NS DAILY PRN ALLERGI ES 10/19/17 02/02/21 History mcg/actuation nasal spray,suspension bismuth subsalicylate 262 mg 2 tablet PO Q30-60M PRN D iarrhea 10/08/20 02/02/21 History tablet (Pepto-Bismol) cholecalciferol (vitamin D3) 25 50 mcg PO DAILY Supple ment 01/20/21 02/05/21 17:00 History mcg (1,000 unit) tablet (Vitamin D3) sertraline 25 mg tablet 25 mg PO DAILY anxiety 08/0901/13/25 History acetaminophen 500 mg tablet 1,000 mg PO Q8 PRN pain Unknown History zolpidem 5 mg tablet 5 mg PO QHS Sleep 09/26/23 U nknown History furosemide 40 mg tablet 40 mg PO DAILY PRN edema #30 tabs 12/04/23 Unknown Rx rivaroxaban 20 mg tablet 20 mg PO DAILY afib #90 tabs 10/04/24 01/13/25 Rx metoprolol succinate 50 mg 50 mg PO QDAY afib #90 tabs 01/31/25 Unknown Rx tablet,extended release 24 hr sotalol 80 mg tablet 80 mg PO BID #180 tabs 01/31 Unknown Rx Allergy/AdvReac Type Severity Reaction Status Date / Time flecainide Allergy Left Verified 01/10/25 09:27 Bundle Branch Block/BUE tingling/leg weakness aspirin (ASA) AdvReac ONLY HAS Verified 01/10/25 09:27 ONE KIDNEY, TOLD TO AVOID cortisone AdvReac CHEST HOT Verified 01/10/25 09:27 & WEIRD NSAIDS (Non-Steroidal AdvReac ONLY HAS Verified 01/10/25 09:27 Anti-Inflamma ONE KIDNEY, TOLD TO AVOID Family [...] participate in: walking frequency: daily ROS ROS Narrative All review of systems were negative except as mentioned above in the history of present illness and the other review of systems. Vital Signs Vital Signs Vital Signs: 02/07/25 14:13 02/07/25 14:14 02/07/25 14:17 Temperature 36.5 C L Temperature Source Oral Pulse Rate 133 H 140 H Respiratory Rate 15 Respiratory Effort Short of Breath Blood Pressure 140/103 H Blood Pressure Mean 115 Pulse Ox 99 Oxygen Delivery Method Room Air 02/07/25 14:38 02/07/25 15:13 02/07/25 16:00 Temperature Temperature Source Pulse Rate 138 H 93 Respiratory Rate 13 15 Respiratory Effort Blood Pressure 128/110 H 114/81 H Blood Pressure Mean 116 92 Pulse Ox 95 95 95 Oxygen Delivery Method Room Air Room Air Room Air 02/07/25 16:54 02/07/25 17:00 02/07/25 17:02 Temperature 36.5 C L Temperature Source Pulse Rate 114 H 107 H 107 H Respiratory Rate 11 L 21 H 21 H Respiratory Effort Blood Pressure 95/68 95/68 95/68 Blood Pressure Mean 77 77 77 Pulse Ox 94 96 96 Oxygen Delivery Method Room Air Weight Weight: 72.8 kg Body Mass Index (BMI) 27.5 Physical Exam Narrative - Physical Exam General: Alert, Oriented x3, Cooperative. Sitting up in bed. Nontoxic no respiratory distress. On room air. HEENT: Atraumatic, PERRLA, EOMI, Normocephalic Oral: Moist Mucosa, No Gingival or Mucosal Lesions/ Ulcerations Neck: Supple, No JVD, Negative Carotid Bruits Lungs: Clear to auscultation, Normal air movement Cardiovascular: Irregularly irregular. Abdomen: Bowel Sounds Present, Soft, Non Tender, Non-Distended, No Hepato-splenomegaly Extremities: No clubbing, No cyanosis, No edema, Capillary Refill Less than 3 Seconds Skin: No rashes, No breakdown Musculoskeletal: No Tenderness to Palpation of Joints or Extremities Neurological: Neuro grossly intact Psych/Mental Status: Normal Affect, Appropriate Results Lab / Micro Data Attestation: I reviewed the patient's lab results. 02/07/25 14:13 02/07/25 14:13 Labs: Laboratory Results - last 24 hr 02/07/25 14:13: WBC 7.4, RBC 4.26, Hgb 13.1, Hct 39.4, MCV 92.5, MCH 30.8, MCHC 33.2, RDW Std Deviation 46.4 H, RDW Coeff of Priscilla 14.0, Plt Count 224, MPV 10.8, Immature Gran % (Auto) 0.300, Neut % (Auto) 73.7 H, Lymph % (Auto) 15.7 L, [place] % (Auto) 8.3, Eos % (Auto) 1.5, Baso % (Auto) 0.5, Absolute Neuts (auto) 5.4, Absolute Lymphs (auto) 1.16, Nucleated RBC % 0, Sodium 137, Potassium 3.9, Chloride 101, Carbon Dioxide 23.2, Anion Gap 13, BUN 28 H, Creatinine 1.03, Estim Creat Clear Calc 48.28 L, Est GFR (MDRD) Non-Af 58 L, BUN/Creatinine Ratio 27.6 H, Glucose 147 H, Calcium 9.6, Magnesium 2.2, Troponin T High Sens 12 D, TSH 2.870 02/07/25 16:15: Troponin T Hi Sens 2 Hr 8 EKG Initial EKG: Attestation: I personally reviewed and interpreted this EKG as follows: Prior EKG tracings: available for review (Atrial flutter with RVR) Imaging Radiology Impression Chest X-Ray 02/07/25 14:50 IMPRESSION: No Acute Findings. Reading Location: [id number] Assessment & Plan Assessment/Plan (1) Atrial flutter with rapid ventricular response: PLAN: Breakthrough despite being on sotalol 80 mg twice daily and metoprolol succinate 50 daily. Received total of 40 mg IV of diltiazem and has been placedon diltiazem drip. Currently the diltiazem drip is actually not infusing as it is in a very small gauge IV in her left wrist. Nursing to evaluate. But if it is infusing and patient still having RVR then consideration would be to initiateamiodarone. I have called Dr. Rendon, cardiology but he is not been accessible after 2 attempts. Consult to cardiology will be placed. Continue with rivaroxaban Cannot rule out need for another cardioversion Check echocardiogram. Check troponin series PLAN: Plan Depression: Continue with sertraline VTE prophylaxis: Not indicated as patient is already anticoagulated CODE STATUS: Verified with the patient that she wishes to be full code. Charges/Coding Visit Charges Inpatient E&M: 64843 Init Hosp L3 02/07/25 1719 <Electronically signed by George Nichole DO> Cosigner Signature (if applicable): CC: Dr. George Nichole DO; Dr. Liliam Alaniz MD~ Signed ADDENDUM by Dr. George Nichole DO on 02/07/25 at [address] Rendon. He recommends dc diltiazem, hold sotalol and start amiodarone. Bolus and infusion ordered. 02/07/25 1820<Electronically signed by George Nichole DO> Cosigner Signature (if applicable): cc: Dr. George Nichole DO; Dr. Liliam Alaniz MD ~* Signed [facility] Work Phone: 1(262) 617-365308-08-2025 Discharge summary Author Denisha Chapa [facility] Note Date/Time February 07, 2025 5:0 2pm [facility] Medical Records Department [address] [place] [address] Emergency Department Summary 02/07/25 MR#: [id number] Acct: [id number] Name: WINSTON OHARA Rep #:[id number] : 1950 74 From: Denisha FLETCHER PCP: Dr. 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 She had cardioversion in August 2024 that lasted 4 months then another cardioversion in December 2024 then only lasted 5 days. Cardiology has been adjusting her medications to try and treat [facility] week ago they stopped losartan, started metoprolol 50 mg once in the a.m., and she still on Xarelto and sotalol 80 mg twice a day and is compliant with all of these. She feels palpitations but denies chest pain. She has exertional dyspnea and over the last week has had bilateral ankle edema. She takes Lasix as needed and took it over last 3 days. [facility] <CHANCE English - Last Filed: 02/07/25 16:49> [facility] Medical History (Updated 02/07/25 @ 16:44 by CHANCE English) Dyspnea Wears glasses Post-menopausal Arthritis History of diverticulitis Former smoker History of pain when walking History of edema Normal stress echocardiogram Hx of thyroid cyst Persistent atrial fibrillation (11/02/20) Paroxysmal atrial flutter (10/2017) Paroxysmal atrial fibrillation (10/2017) Essential (primary) hypertension Single kidney Insomnia Anxiety Atrial fibrillation with RVR Home Medications ?Medication ?Instructions ?Recorded ?Last Taken ?Type fluticasone propionate 50 15.8 ml NS DAILY PRN ALLERGI ES 10/19/17 02/02/21 History mcg/actuation nasal spray,suspension bismuth subsalicylate 262 mg 2 tablet PO Q30-60M PRN D iarrhea 10/08/20 02/02/21 History tablet (Pepto-Bismol) cholecalciferol (vitamin D3) 25 50 mcg PO DAILY Supple ment 01/20/21 02/05/21 17:00 History mcg (1,000 unit) tablet (Vitamin D3) sertraline 25 mg tablet 25 mg PO DAILY 08/09/2212/31 History acetaminophen 500 mg tablet 1,000 mg PO Q8 PRN pain Unknown History zolpidem 5 mg tablet 5 mg PO QHS Sleep 09/26/23 U nknown History furosemide 40 mg tablet 40 mg PO DAILY PRN edema #30 tabs 12/04/23 Unknown Rx rivaroxaban 20 mg tablet 20 mg PO DAILY #90 tabs 10/2501/13/25 Rx metoprolol succinate 50 mg 50 mg PO QDAY #90 tabs 07/27 Unknown Rx tablet,extended release 24 hr sotalol 80 mg tablet 80 mg PO BID #180 tabs 01/31 Unknown Rx Allergy/AdvReac Type Severity Reaction Status Date / Time flecainide Allergy Left Verified 01/10/25 09:27 Bundle Branch Block/BUE tingling/leg weakness aspirin (ASA) AdvReac ONLY HAS Verified 01/10/25 09:27 ONE KIDNEY, TOLD TO AVOID cortisone AdvReac CHEST HOT Verified 01/10/25 09:27 & WEIRD NSAIDS (Non-Steroidal AdvReac ONLY HAS Verified 01/10/25 09:27 Anti-Inflamma ONE KIDNEY, TOLD TO AVOID Family [...] you participate in: walking frequency: daily ROS <CHANCE English - Last Filed: 02/07/25 16:49> ROS ED ROS Narrative Constitutional: Negative for fever, chills, malaise. CVS: Positive for palpitations. No chest pain or syncope. Respiratory: Positive for exertional shortness of breath. GI: Negative for abdominal pain, nausea, vomiting. EXAM <CHANCE English - Last Filed: 02/07/25 16:49> Physical Exam Narrative Exam Narrative: CONST: Patient sitting in no acute distress. EYES: Normal inspection. NECK: Normal inspection. RESP: No respiratory distress, CTAB. CVS: Tachycardic irregularly irregular, no murmur, no gallop. ABD: Soft and nontender, no guarding or rebound, nondistended. SKIN: Color normal, no rash, warm, dry, intact. EXTREMITIES: Normal appearance, no pedal edema. NEURO: Alert and answering questions appropriately. PSYCH: Normal affect. Const Vital Signs: 02/07/25 14:13 02/07/25 14:14 02/07/25 14:17 Temperature 97.7 F L Temperature Source Oral Pulse Rate 133 H 140 H Respiratory Rate 15 Respiratory Effort Short of Breath Blood Pressure 140/103 H Blood Pressure Mean 115 Pulse Ox 99 Oxygen Delivery Method Room Air 02/07/25 14:38 02/07/25 15:13 02/07/25 16:00 Temperature Temperature Source Pulse Rate 138 H 93 Respiratory Rate 13 15 Respiratory Effort Blood Pressure 128/110 H 114/81 H Blood Pressure Mean 116 92 Pulse Ox 95 95 95 Oxygen Delivery Method Room Air Room Air Room Air 02/07/25 16:54 02/07/25 17:00 Temperature Temperature Source Pulse Rate 114 H 107 H Respiratory Rate 11 L 21 H Respiratory Effort Blood Pressure 95/68 95/68 Blood Pressure Mean 77 77 Pulse Ox 94 96 Oxygen Delivery Method Room Air <Dr. David Hartman MD - Last Filed: 02/07/25 17:02> Physical Exam Const Vital Signs: 02/07/25 14:13 02/07/25 14:14 02/07/25 14:17 Temperature 97.7 F L Temperature Source Oral Pulse Rate 133 H 140 H Respiratory Rate 15 Respiratory Effort Short of Breath Blood Pressure 140/103 H Blood Pressure Mean 115 Pulse Ox 99 Oxygen Delivery Method Room Air 02/07/25 14:38 02/07/25 15:13 02/07/25 16:00 Temperature Temperature Source Pulse Rate 138 H 93 Respiratory Rate 13 15 Respiratory Effort Blood Pressure 128/110 H 114/81 H Blood Pressure Mean 116 92 Pulse Ox 95 95 95 Oxygen Delivery Method Room Air Room Air Room Air 02/07/25 16:54 02/07/25 17:00 Temperature Temperature Source Pulse Rate 114 H 107 H Respiratory Rate 11 L 21 H Respiratory Effort Blood Pressure 95/68 95/68 Blood Pressure Mean 77 77 Pulse Ox 94 96 Oxygen Delivery Method Room Air MDM <CHANCE English - Last Filed: 02/07/25 16:49> [facility] MDM Narrative Medical decision making narrative: History gathered from: Patient and spouse Differential: A-fib, a flutter, electrolyte derangement 74-year-old female with history of A-fib/flutter currently managed on multiple medications including Xarelto, sotalol, and metoprolol was sent down from the cardiology office for atrial flutter with RVR. She has had 4 prior cardioversions, the last one and December only lasted a couple days. She is awake alert no distress. She is in atrial flutter about 130-140, BP 140/100, and otherwise stable vital signs. Lungs are clear to auscultation bilaterally. There is trace bilateral ankle edema. Overall labs look good including CBC, BMP, TSH and magnesium all unremarkable. Troponin is 12. CXR shows no acute process. She was given IV Cardizem 20 mg boluses x 2 and she still persistentlyin atrial flutter around 120 bpm so was ordered Cardizem drip. I will discuss the case with the hospitalist for admission. I have personally performed a face to face assessment of the patient and have reviewed the KANIKA Note. I performed a substantive portion of the visit including all aspects of the following. My deleon findings include: History is [74-year-old female known history of A-fib/flutter. Currently on the blood thinner Xarelto. Presents today with a flutter with rapid rate. Has had 4 prior cardioversions the last one only lasted several days. She is set up to have a cardioversion done at [facility] But that is not till at least March.] Exam is [72-year-old female sitting upright in bed she is in atrial flutter rate about 130 she is tolerating it well. at bedside. H EENT exam pupils are round react light. Moist mucous members. Neck nontender. Lungs clear to auscultation bilaterally. Heart A-fib flutter rate about 130. Chest wall nontender. Abdomen soft nontender. Moving all 4 extremities. Nontender no edema. Normal document clerk strength. Normal dorsi plantarflexion. Neurologically she is awake alert. Answering questions following commands.] Medical Decision Making [74-year-old known A-fib flutter and atrial flutter rate 130 will given IV Cardizem have a cardiac workup.] Other additions or changes: [None] Lab Data Attestation: I reviewed the patient's lab results. Labs: Laboratory Results - last 24 hr 02/07/25 02/07/25 14:13 16:15 WBC 7.4 RBC 4.26 Hgb 13.1 Hct 39.4 MCV 92.5 MCH 30.8 MCHC 33.2 RDW Std Deviation 46.4 H RDW Coeff of Priscilla 14.0 Plt Count 224 MPV 10.8 Immature Gran % (Auto) 0.300 Neut % (Auto) 73.7 H Lymph % (Auto) 15.7 L [place] % (Auto) 8.3 Eos % (Auto) 1.5 Baso % (Auto) 0.5 Absolute Neuts (auto) 5.4 Absolute Lymphs (auto) 1.16 Nucleated RBC % 0 Sodium 137 Potassium 3.9 Chloride 101 Carbon Dioxide 23.2 Anion Gap 13 BUN 28 H Creatinine 1.03 Estim Creat Clear Calc 48.28 L Est GFR (MDRD) Non-Af 58 L BUN/Creatinine Ratio 27.6 H Glucose 147 H Calcium 9.6 Magnesium 2.2 Troponin T High Sens 12 D Troponin T Hi Sens 2 Hr 8 TSH 2.870 Radiography Diagnostic Testing: Clinical Impression(s) from Imaging Studies Chest X-Ray 02/07/25 14:50 IMPRESSION: No Acute Findings. Reading Location: [id number] ED attending interpretation two-view chest x-ray shows normal heart size, no acute infiltrate or effusion, EKG Initial EKG: Attestation: I personally reviewed and interpreted this EKG as follows: Interpretation: Atrial Flutter Comments: Atrial flutter with RVR at 125 bpm <Dr. David Hartman MD - Last Filed: 02/07/25 17:02> [facility] Narrative Medical decision making narrative: I have personally performed a face to face assessment of the patient and have reviewed the KANIKA Note. I performed a substantive portion of the visit including all aspects of the following. My deleon findings include: History is [74-year-old female known history of A-fib/flutter. Currently on the blood thinner Xarelto. Presents today with a flutter with rapid rate. Has had 4 prior cardioversions the last one only lasted several days. She is set up to have a cardioversion done at [facility] But that is not till at least March.] Exam is [72-year-old female sitting upright in bed she is in atrial flutter rate about 130 she is tolerating it well. at bedside. H EENT exam pupils are round react light. Moist mucous members. Neck nontender. Lungs clear to auscultation bilaterally. Heart A-fib flutter rate about 130. Chest wall nontender. Abdomen soft nontender. Moving all 4 extremities. Nontender no edema. Normal document clerk strength. Normal dorsi plantarflexion. Neurologically she is awake alert. Answering questions following commands.] Medical Decision Making [74-year-old known A-fib flutter and atrial flutter rate 130 will given IV Cardizem have a cardiac workup.] Other additions or changes: [None] History & Record Review Discussion w/independent historian: Patient and Family Additional record(s) reviewed:: Prior inpatient record, Prior outpatient record, Prior ED visit and Prior labs Lab Data Lab results narrative: CBC shows a white count of 7. H&H 13-39. Platelets 224. Labs: Laboratory Results - last 24 hr 02/07/25 02/07/25 14:13 16:15 WBC 7.4 RBC 4.26 Hgb 13.1 Hct 39.4 MCV 92.5 MCH 30.8 MCHC 33.2 RDW Std Deviation 46.4 H RDW Coeff of Priscilla 14.0 Plt Count 224 MPV 10.8 Immature Gran % (Auto) 0.300 Neut % (Auto) 73.7 H Lymph % (Auto) 15.7 L [place] % (Auto) 8.3 Eos % (Auto) 1.5 Baso % (Auto) 0.5 Absolute Neuts (auto) 5.4 Absolute Lymphs (auto) 1.16 Nucleated RBC % 0 Sodium 137 Potassium 3.9 Chloride 101 Carbon Dioxide 23.2 Anion Gap 13 BUN 28 H Creatinine 1.03 Estim Creat Clear Calc 48.28 L Est GFR (MDRD) Non-Af 58 L BUN/Creatinine Ratio 27.6 H Glucose 147 H Calcium 9.6 Magnesium 2.2 Troponin T High Sens 12 D Troponin T Hi Sens 2 Hr 8 TSH 2.870 Radiography Diagnostic Testing: Clinical Impression(s) from Imaging Studies Chest X-Ray 02/07/25 14:50 IMPRESSION: No Acute Findings. Reading Location: [id number] <Dr. David Hartman MD - Last Filed: 02/07/25 17:02> Critical Care Time Critical Care Time: Yes Critical care time (excluding procedures): 30-74 minutes, Including time spent:, Discussing w/Patient &/or Family/[employer], Discussing w/Consultants, Arranging Admission or Transfer, Performing Direct Patient Care at Bedside and - (35 minutes.) Discharge Plan Triage Chief Complaint: Chest Other ED Midlevel Provider: Denisha Chapa ED Provider: David Hartman Dx/Rx/DC Orders Clinical Impression: Atrial flutter with rapid ventricular response Prescriptions: No Action Pepto-Bismol 262 mg tablet 2 tablet PO Q30-60M PRN (Reason: Diarrhea) Rx Instructions: do not exceed 16 tabs per 24 hrs acetaminophen 500 mg tablet 1,000 mg PO Q8 PRN (Reason: pain) Rx Instructions: Do not take more than 3000 mg Tylenol in a 24-hour period. rivaroxaban 20 mg tablet 20 mg PO DAILY Qty: 90 3RF Patient Comments: LAST DOSE 01/28/21 metoprolol succinate 50 mg tablet extended release 24 hr 50 mg PO QDAY Qty: 90 3RF sotalol 80 mg tablet 80 mg PO BID Qty: 180 3RF zolpidem 5 mg tablet 5 mg PO QHS fluticasone propionate 9.9 ML spray,suspension 15.8 ml NS DAILY PRN (Reason: ALLERGIES) cholecalciferol (vitamin D3) [Vitamin D3] 25 mcg (1,000 unit) Tablet 50 mcg PO DAILY sertraline 25 mg tablet 25 mg PO DAILY Patient Comments: take 1 tablet by mouth once daily furosemide 40 mg tablet 40 mg PO DAILY PRN (Reason: edema) Qty: 30 11RF Primary Care Provider: Liliam Alaniz Referrals: Liliam Alaniz MD [Primary Care Provider] - Print Language: Ethiopian Disposition Disposition: Acute Care Hospital [facility] What to do if you have Problems For any increased pain, shortness of breath, bleeding, nausea or vomiting, chestpain, or any unexpected problems, contact your Primary Care Provider. Call [facility] ([phone]) or report to the closest Emergency Room. Call 911 if necessary. 02/07/25 1649 <Electronically signed by Denisha FLETCHER> Cosigner Signature (if applicable): 02/07/25 1702 <Electronically signed by David Hartman MD> CC: Dr. Liliam Alaniz MD ~ Signed [facility] Work Phone: [phone]) 695-851508-08-2025 Consult note [facility] Medical Records Department [address] [place] [id number] Consultation - Cardiology 02/07/25 1854 MR#: [id number] Acct: [id number] Name: WINSTON OHARA Rep #:[id number] : 1950 74 From: Enrico Rendon MD PCP: Dr. Liliam Alaniz MD Status:AD M IN Location: [place] [address] Assessment & Plan Assessment/Plan (1) Paroxysmal atrial fibrillation: (2) Essential (primary) hypertension: (3) Shortness of breath: (4) History of cardioversion: (5) Atrial flutter with rapid ventricular response: PLAN: 74-year-old patient who was seen and evaluated at the cardiology clinic today and was sent over to the ED at [facility] with atrial flutter with variable ventricular rate She had symptoms of dizziness. And noted her rate was 130s 3. And she was started in the ED on treatment with Cardizem. IV iron was sent overto the progressive care unit where patient continued to have atrial flutter withvariable ventricular rate. Patient has multiple previous synchronized cardioversions for atrial flutter/A-fib Currently she been on treatment with sotalol/metoprolol in addition to anticoagulation with Xarelto. Other medical problem include history of hypertension History of depression. Cardiac care plan; Discussed the cardiac care plan with the medical team will start on amiodarone and will continue onanticoagulation. 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 Will review her echocardiogram and we will follow-up clinically. HPI Consult Data Date of Consult: 02/07/25 HPI Narrative Reason for Consultation: Atrial flutter with variable ventricular rate HPI Narrative: WINSTON OHARA, is a 74 F who presents [facility] Medical History Dyspnea Wears glasses Post-menopausal Arthritis History of diverticulitis Former smoker History of pain when walking History of edema Normal stress echocardiogram Hx of thyroid cyst Persistent atrial fibrillation (11/02/20) Paroxysmal atrial flutter (10/2017) Paroxysmal atrial fibrillation (10/2017) Essential (primary) hypertension Single kidney Insomnia Anxiety Atrial fibrillation with RVR Home Medications ?Medication ?Instructions ?Recorded ?Last Taken ?Type fluticasone propionate 50 15.8 ml NS DAILY PRN ALLERGI ES 10/19/17 02/02/21 History mcg/actuation nasal spray,suspension bismuth subsalicylate 262 mg 2 tablet PO Q30-60M PRN D iarrhea 10/08/20 02/02/21 History tablet (Pepto-Bismol) cholecalciferol (vitamin D3) 25 50 mcg PO DAILY Supple ment 01/20/21 02/05/21 17:00 History mcg (1,000 unit) tablet (Vitamin D3) sertraline 25 mg tablet 25 mg PO DAILY anxiety 08/0901/13/25 History acetaminophen 500 mg tablet 1,000 mg PO Q8 PRN pain Unknown History zolpidem 5 mg tablet 5 mg PO QHS Sleep 09/26/23 U nknown History furosemide 40 mg tablet 40 mg PO DAILY PRN edema #30 tabs 12/04/23 Unknown Rx rivaroxaban 20 mg tablet 20 mg PO DAILY afib #90 tabs 10/04/24 01/13/25 Rx metoprolol succinate 50 mg 50 mg PO QDAY afib #90 tabs 01/31/25 Unknown Rx tablet,extended release 24 hr sotalol 80 mg tablet 80 mg PO BID heart #180 tabs 01/31/25 Unknown Rx Allergy/AdvReac Type Severity Reaction Status Date / Time flecainide Allergy Left Verified 01/10/25 09:27 Bundle Branch Block/BUE tingling/leg weakness aspirin (ASA) AdvReac ONLY HAS Verified 01/10/25 09:27 ONE KIDNEY, TOLD TO AVOID cortisone AdvReac CHEST HOT Verified 01/10/25 09:27 & WEIRD NSAIDS (Non-Steroidal AdvReac ONLY HAS Verified 01/10/25 09:27 Anti-Inflamma ONE KIDNEY, TOLD TO AVOID Family [...] do you participate in: walking frequency: daily Physical Exam Cardio Cardio Narrative: Patient seen evaluated at bedside Still complaining of shortness of breath with palpitation child monitor showed atrial flutter with variable ventricular rate Cardiac exam S1-S2 is irregular Chest exam clear to auscultation bilaterally Examination lower extremity no lower extremity edema. Risk Stratification Risk Stratification Applicable: No Objective Data Vital Signs: Vital Signs Temp Pulse Resp BP Pulse Ox O2 Del Method 97.7 F L 105 H 14 111/66 97 Room Air 02/07/25 17:02 02/07/25 18:00 02/07/25 18:00 02/07/25 18:00 02/07/25 18:00 02/07/25 18:00 Oxygen Delivery Method Room Air Weight: 157 lb 6.561 oz Body Mass Index (BMI) 27.0 Intake & Output: Intake and Output for Last 24 Hours 02/05/25 02/06/25 02/07/25 23:59 23:59 23:59 Intake Total 4.25 / 4.25 Balance 4.25 / 4.25 Lab / Micro Data 02/07/25 14:13 02/07/25 14:13 Labs: Laboratory Results - last 24 hr 02/07/25 14:13: WBC 7.4, RBC 4.26, Hgb 13.1, Hct 39.4, MCV 92.5, MCH 30.8, MCHC 33.2, RDW Std Deviation 46.4 H, RDW Coeff of Priscilla 14.0, Plt Count 224, MPV 10.8, Immature Gran % (Auto) 0.300, Neut % (Auto) 73.7 H, Lymph % (Auto) 15.7 L, [place] % (Auto) 8.3, Eos % (Auto) 1.5, Baso % (Auto) 0.5, AbsoluteNeuts (auto) 5.4, Absolute Lymphs (auto) 1.16, Nucleated RBC % 0, Sodium 137, Potassium 3.9, Chloride 101, Carbon Dioxide 23.2, Anion Gap 13, BUN 28 H, Creatinine 1.03, Estim Creat Clear Calc 48.28 L, Est GFR (MDRD) Non-Af 58 L, BUN/Creatinine Ratio 27.6 H, Glucose 147 H, Calcium 9.6, Magnesium 2.2, Troponin T High Sens 12 D, TSH 2.870 02/07/25 16:15: Troponin T Hi Sens 2 Hr 8 Cardiology Labs/Tests 02/07/25 14:13: WBC 7.4, RBC 4.26, Hgb 13.1, Hct 39.4, MCV 92.5, MCH 30.8, MCHC 33.2, Plt Count 224, MPV 10.8, Immature Gran % (Auto) 0.300, Neut % (Auto) 73.7 H, Lymph % (Auto) 15.7 L, [place] % (Auto)8.3, Eos % (Auto) 1.5, Baso % (Auto) 0.5, Absolute Neuts (auto) 5.4, Nucleated RBC % 0, Sodium 137,Potassium 3.9, Chloride 101, Carbon Dioxide 23.2, Anion Gap 13, BUN 28 H, Creatinine 1.03, Est GFR ( MDRD) Non-Af 58 L, BUN/Creatinine Ratio 27.6 H, Glucose 147 H, Calcium 9.6,Magnesium 2.2 Rhythm: EKG: ECHO: Stress Test: Cardiac Cath: PCI: CT Surgery: Holter monitor: EPS: PPM: CXR: Chest CT Scan: Radiography Diagnostic Testing: Radiology Impression Chest X-Ray 02/07/25 14:50 IMPRESSION: No Acute Findings. Reading Location: [facility] 02/07/25 7069 Cosigner Signature (if applicable): CC: Dr. Liliam Alaniz MD~ Signed [facility]08-08-2025 History and physical note [facility] Medical Records Department [address] [place] [address] H&P Exam - Hospitalist 02/07/25 1712 MR#: [id number] Acct: [id number] Name: WINSTON OHARA Rep #:[id number] : 1950 74 From: George Nichole DO PCP: Dr. Liliam Alaniz MD Status:AD M IN Location: [address] HPI - General General Date of Admission: 02/07/25 Date of Service: 02/07/25 Chief Complaint: Dizziness HPI Narrative WINSTON OHARA, is a 74 F who presents with dizziness. She was at her cardiologyoffice today and wasnoted to have a heart rate of 133. Patient was started to go to the emergency room. In the emergency room, patient has a history of A-fibbut was actually noted to be in atrial flutter. Patient received a total of 40 mg IV diltiazem bolus and then was placed on a diltiazem drip. Since initiationof the diltiazem drip it has not been infusing and her heart rate still been in the 120s to 130s. Patient's IV is currently small gauge IV in her lateral left wrist. Patient is experiencing some chest tightness and palpitations. This is consistent with her history of atrial fib with RVR. Patient was nottolerating sotalol 120 twice daily and so that was decreased to 80 twice daily and then wasadded onmetoprolol succinate 50 daily. Patient underwent a cardioversion (her fourth) on January 13 and was insinus rhythm but she stated that that lasted only for about 5 days before she was back into her A-fi b. She states at home that her heart rate is typically in the 90s. [facility] Medical History Dyspnea Wears glasses Post-menopausal Arthritis History of diverticulitis Former smoker History of pain when walking History of edema Normal stress echocardiogram Hx of thyroid cyst Persistent atrial fibrillation (11/02/20) Paroxysmal atrial flutter (10/2017) Paroxysmal atrial fibrillation (10/2017) Essential (primary) hypertension Single kidney Insomnia Anxiety Atrial fibrillation with RVR Home Medications ?Medication ?Instructions ?Recorded ?Last Taken ?Type fluticasone propionate 50 15.8 ml NS DAILY PRN ALLERGI ES 10/19/17 02/02/21 History mcg/actuation nasal spray,suspension bismuth subsalicylate 262 mg 2 tablet PO Q30-60M PRN D iarrhea 10/08/20 02/02/21 History tablet (Pepto-Bismol) cholecalciferol (vitamin D3) 25 50 mcg PO DAILY Supple ment 01/20/21 02/05/21 17:00 History mcg (1,000 unit) tablet (Vitamin D3) sertraline 25 mg tablet 25 mg PO DAILY anxiety 08/0901/13/25 History acetaminophen 500 mg tablet 1,000 mg PO Q8 PRN pain Unknown History zolpidem 5 mg tablet 5 mg PO QHS Sleep 09/26/23 U nknown History furosemide 40 mg tablet 40 mg PO DAILY PRN edema #30 tabs 12/04/23 Unknown Rx rivaroxaban 20 mg tablet 20 mg PO DAILY afib #90 tabs 10/04/24 01/13/25 Rx metoprolol succinate 50 mg 50 mg PO QDAY afib #90 tabs 01/31/25 Unknown Rx tablet,extended release 24 hr sotalol 80 mg tablet 80 mg PO BID #180 tabs 01/31 Unknown Rx Allergy/AdvReac Type Severity Reaction Status Date / Time flecainide Allergy Left Verified 01/10/25 09:27 Bundle Branch Block/BUE tingling/leg weakness aspirin (ASA) AdvReac ONLY HAS Verified 01/10/25 09:27 ONE KIDNEY, TOLD TO AVOID cortisone AdvReac CHEST HOT Verified 01/10/25 09:27 & WEIRD NSAIDS (Non-Steroidal AdvReac ONLY HAS Verified 01/10/25 09:27 Anti-Inflamma ONE KIDNEY, TOLD TO AVOID Family [...] participate in: walking frequency: daily ROS ROS Narrative All review of systems were negative except as mentioned above in the history of present illness andthe other review of systems. Vital Signs Vital Signs Vital Signs: 02/07/25 14:13 02/07/25 14:14 02/07/25 14:17 Temperature 36.5 C L Temperature Source Oral Pulse Rate 133 H 140 H Respiratory Rate 15 Respiratory Effort Short of Breath Blood Pressure 140/103 H Blood Pressure Mean 115 Pulse Ox 99 Oxygen Delivery Method Room Air 02/07/25 14:38 02/07/25 15:13 02/07/25 16:00 Temperature Temperature Source Pulse Rate 138 H 93 Respiratory Rate 13 15 Respiratory Effort Blood Pressure 128/110 H 114/81 H Blood Pressure Mean 116 92 Pulse Ox 95 95 95 Oxygen Delivery Method Room Air Room Air Room Air 02/07/25 16:54 02/07/25 17:00 02/07/25 17:02 Temperature 36.5 C L Temperature Source Pulse Rate 114 H 107 H 107 H Respiratory Rate 11 L 21 H 21 H Respiratory Effort Blood Pressure 95/68 95/68 95/68 Blood Pressure Mean 77 77 77 Pulse Ox 94 96 96 Oxygen Delivery Method Room Air Weight Weight: 72.8 kg Body Mass Index (BMI) 27.5 Physical Exam Narrative - Physical Exam General: Alert, Oriented x3, Cooperative. Sitting up in bed. Nontoxic no respiratory distress. On room air. HEENT: Atraumatic, PERRLA, EOMI, Normocephalic Oral: Moist Mucosa, No Gingival or Mucosal Lesions/ Ulcerations Neck: Supple, No JVD, Negative Carotid Bruits Lungs: Clear to auscultation, Normal air movement Cardiovascular: Irregularly irregular. Abdomen: Bowel Sounds Present, Soft, Non Tender, Non-Distended, No Hepato-splenomegaly Extremities: No clubbing, No cyanosis, No edema, Capillary Refill Less than 3 Seconds Skin: No rashes, No breakdown Musculoskeletal: No Tenderness to Palpation of Joints or Extremities Neurological: Neuro grossly intact Psych/Mental Status: Normal Affect, Appropriate Results Lab / Micro Data Attestation: I reviewed the patient's lab results. 02/07/25 14:13 02/07/25 14:13 Labs: Laboratory Results - last 24 hr 02/07/25 14:13: WBC 7.4, RBC 4.26, Hgb 13.1, Hct 39.4, MCV 92.5, MCH 30.8, MCHC 33.2, RDW Std Deviation 46.4 H, RDW Coeff of Priscilla 14.0, Plt Count 224, MPV 10.8, Immature Gran % (Auto) 0.300, Neut % (Auto) 73.7 H, Lymph % (Auto) 15.7 L, [place] % (Auto) 8.3, Eos % (Auto) 1.5, Baso % (Auto) 0.5, AbsoluteNeuts (auto) 5.4, Absolute Lymphs (auto) 1.16, Nucleated RBC % 0, Sodium 137, Potassium 3.9, Chloride 101, Carbon Dioxide 23.2, Anion Gap 13, BUN 28 H, Creatinine 1.03, Estim Creat Clear Calc 48.28 L, Est GFR (MDRD) Non-Af 58 L, BUN/Creatinine Ratio 27.6 H, Glucose 147 H, Calcium 9.6, Magnesium 2.2, Troponin T High Sens 12 D, TSH 2.870 02/07/25 16:15: Troponin T Hi Sens 2 Hr 8 EKG Initial EKG: Attestation: I personally reviewed and interpreted this EKG as follows: Prior EKG tracings: available for review (Atrial flutter with RVR) Imaging Radiology Impression Chest X-Ray 02/07/25 14:50 IMPRESSION: No Acute Findings. Reading Location: [id number] Assessment & Plan Assessment/Plan (1) Atrial flutter with rapid ventricular response: PLAN: Breakthrough despite being on sotalol 80 mg twice daily and metoprolol succinate 50 daily. Received total of 40 mg IV of diltiazem and has been placedon diltiazem drip. Currently the diltiazem drip is actually not infusing as it is in a very small gauge IV in her left wrist. Nursing to evaluate. But if it is infusing and patient still having RVR then consideration would be to initiateamiodarone. I have called Dr. Rendon, cardiology but he is not been accessible after 2 attempts. Consult tocardiology will be placed. Continue with rivaroxaban Cannot rule out need for another cardioversion Check echocardiogram. Check troponin series PLAN: Plan Depression: Continue with sertraline VTE prophylaxis: Not indicated as patient is already anticoagulated CODE STATUS: Verified with the patient that she wishes to be full code. Charges/Coding Visit Charges Inpatient E&M: 86964 Init Hosp L3 02/07/25 1719 Cosigner Signature (if applicable): CC: Dr. George Nichole DO; Dr. Liliam Alaniz MD~ Signed ADDENDUM by Dr. George Nichole DO on 02/07/25 at [address] Rendon. He recommends dc diltiazem, hold sotalol and start amiodarone. Bolus and infusion ordered. 02/07/25 1820 Cosigner Signature (if applicable): cc: Dr. George Nichole DO; Dr. Liliam Alaniz MD ~* Signed [facility]08-08-2025 History and physical note [facility] Medical Records Department [address] [place] [address] H&P Exam - Hospitalist 02/07/251711 MR#: [id number] Acct: [id number] Name: WINSTON OHARA Rep #:[id number] : 1950 74 From: George Nichole DO PCP: Dr. Liliam Alaniz MD Status:AD M IN Location: [facility] [id number] HPI - General General Date of Admission: 02/07/25 Date of Service: 02/07/25 Chief Complaint: Dizziness HPI Narrative WINSTON OHARA, is a 74 F who presents with dizziness. She was at her cardiologyoffice today and wasnoted to have a heart rate of 133. Patient was started to go to the emergency room. In the emergency room, patient has a history of A-fibbut was actually noted to be in atrial flutter. Patient received a total of 40 mg IV diltiazem bolus and then was placed on a diltiazem drip. Since initiationof the diltiazem drip it has not been infusing and her heart rate still been in the 120s to 130s. Patient's IV is currently small gauge IV in her lateral left wrist. Patient is experiencing some chest tightness and palpitations. This is consistent with her history of atrial fib with RVR. Patient was nottolerating sotalol 120 twice daily and so that was decreased to 80 twice daily and then wasadded onmetoprolol succinate 50 daily. Patient underwent a cardioversion (her fourth) on January 13 and was insinus rhythm but she stated that that lasted only for about 5 days before she was back into her A- b. She states at home that her heart rate is typically in the 90s. [facility] Medical History Dyspnea Wears glasses Post-menopausal Arthritis History of diverticulitis Former smoker History of pain when walking History of edema Normal stress echocardiogram Hx of thyroid cyst Persistent atrial fibrillation (11/02/20) Paroxysmal atrial flutter (10/2017) Paroxysmal atrial fibrillation (10/2017) Essential (primary) hypertension Single kidney Insomnia Anxiety Atrial fibrillation with RVR Home Medications ?Medication ?Instructions ?Recorded ?Last Taken ?Type fluticasone propionate 50 15.8 ml NS DAILY PRN ALLERGI ES 10/19/17 02/02/21 History mcg/actuation nasal spray,suspension bismuth subsalicylate 262 mg 2 tablet PO Q30-60M PRN D iarrhea 10/08/20 02/02/21 History tablet (Pepto-Bismol) cholecalciferol (vitamin D3) 25 50 mcg PO DAILY Supple ment 01/20/21 02/05/21 17:00 History mcg (1,000 unit) tablet (Vitamin D3) sertraline 25 mg tablet 25 mg PO DAILY anxiety 08/0901/13/25 History acetaminophen 500 mg tablet 1,000 mg PO Q8 PRN pain Unknown History zolpidem 5 mg tablet 5 mg PO QHS Sleep 09/26/23 U nknown History furosemide 40 mg tablet 40 mg PO DAILY PRN edema #30 tabs 12/04/23 Unknown Rx rivaroxaban 20 mg tablet 20 mg PO DAILY afib #90 tabs 10/04/24 01/13/25 Rx metoprolol succinate 50 mg 50 mg PO QDAY afib #90 tabs 01/31/25 Unknown Rx tablet,extended release 24 hr sotalol 80 mg tablet 80 mg PO BID #180 tabs 01/31 Unknown Rx Allergy/AdvReac Type Severity Reaction Status Date / Time flecainide Allergy Left Verified 01/10/25 09:27 Bundle Branch Block/BUE tingling/leg weakness aspirin (ASA) AdvReac ONLY HAS Verified 01/10/25 09:27 ONE KIDNEY, TOLD TO AVOID cortisone AdvReac CHEST HOT Verified 01/10/25 09:27 & WEIRD NSAIDS (Non-Steroidal AdvReac ONLY HAS Verified 01/10/25 09:27 Anti-Inflamma ONE KIDNEY, TOLD TO AVOID Family [...] participate in: walking frequency: daily ROS ROS Narrative All review of systems were negative except as mentioned above in the history of present illness andthe other review of systems. Vital Signs Vital Signs Vital Signs: 02/07/25 14:13 02/07/25 14:14 02/07/25 14:17 Temperature 36.5 C L Temperature Source Oral Pulse Rate 133 H 140 H Respiratory Rate 15 Respiratory Effort Short of Breath Blood Pressure 140/103 H Blood Pressure Mean 115 Pulse Ox 99 Oxygen Delivery Method Room Air 02/07/25 14:38 02/07/25 15:13 02/07/25 16:00 Temperature Temperature Source Pulse Rate 138 H 93 Respiratory Rate 13 15 Respiratory Effort Blood Pressure 128/110 H 114/81 H Blood Pressure Mean 116 92 Pulse Ox 95 95 95 Oxygen Delivery Method Room Air Room Air Room Air 02/07/25 16:54 02/07/25 17:00 02/07/25 17:02 Temperature 36.5 C L Temperature Source Pulse Rate 114 H 107 H 107 H Respiratory Rate 11 L 21 H 21 H Respiratory Effort Blood Pressure 95/68 95/68 95/68 Blood Pressure Mean 77 77 77 Pulse Ox 94 96 96 Oxygen Delivery Method Room Air Weight Weight: 72.8 kg Body Mass Index (BMI) 27.5 Physical Exam Narrative - Physical Exam General: Alert, Oriented x3, Cooperative. Sitting up in bed. Nontoxic no respiratory distress. On room air. HEENT: Atraumatic, PERRLA, EOMI, Normocephalic Oral: Moist Mucosa, No Gingival or Mucosal Lesions/ Ulcerations Neck: Supple, No JVD, Negative Carotid Bruits Lungs: Clear to auscultation, Normal air movement Cardiovascular: Irregularly irregular. Abdomen: Bowel Sounds Present, Soft, Non Tender, Non-Distended, No Hepato-splenomegaly Extremities: No clubbing, No cyanosis, No edema, Capillary Refill Less than 3 Seconds Skin: No rashes, No breakdown Musculoskeletal: No Tenderness to Palpation of Joints or Extremities Neurological: Neuro grossly intact Psych/Mental Status: Normal Affect, Appropriate Results Lab / Micro Data Attestation: I reviewed the patient's lab results. 02/07/25 14:13 02/07/25 14:13 Labs: Laboratory Results - last 24 hr 02/07/25 14:13: WBC 7.4, RBC 4.26, Hgb 13.1, Hct 39.4, MCV 92.5, MCH 30.8, MCHC 33.2, RDW Std Deviation 46.4 H, RDW Coeff of Priscilla 14.0, Plt Count 224, MPV 10.8, Immature Gran % (Auto) 0.300, Neut % (Auto) 73.7 H, Lymph % (Auto) 15.7 L, [place] % (Auto) 8.3, Eos % (Auto) 1.5, Baso % (Auto) 0.5, AbsoluteNeuts (auto) 5.4, Absolute Lymphs (auto) 1.16, Nucleated RBC % 0, Sodium 137, Potassium 3.9, Chloride 101, Carbon Dioxide 23.2, Anion Gap 13, BUN 28 H, Creatinine 1.03, Estim Creat Clear Calc 48.28 L, Est GFR (MDRD) Non-Af 58 L, BUN/Creatinine Ratio 27.6 H, Glucose 147 H, Calcium 9.6, Magnesium 2.2, Troponin T High Sens 12 D, TSH 2.870 02/07/25 16:15: Troponin T Hi Sens 2 Hr 8 EKG Initial EKG: Attestation: I personally reviewed and interpreted this EKG as follows: Prior EKG tracings: available for review (Atrial flutter with RVR) Imaging Radiology Impression Chest X-Ray 02/07/25 14:50 IMPRESSION: No Acute Findings. Reading Location: [id number] Assessment & Plan Assessment/Plan (1) Atrial flutter with rapid ventricular response: PLAN: Breakthrough despite being on sotalol 80 mg twice daily and metoprolol succinate 50 daily. Received total of 40 mg IV of diltiazem and has been placedon diltiazem drip. Currently the diltiazem drip is actually not infusing as it is in a very small gauge IV in her left wrist. Nursing to evaluate. But if it is infusing and patient still having RVR then consideration would be to initiateamiodarone. I have called Dr. Rendon, cardiology but he is not been accessible after 2 attempts. Consult tocardiology will be placed. Continue with rivaroxaban Cannot rule out need for another cardioversion Check echocardiogram. Check troponin series PLAN: Plan Depression: Continue with sertraline VTE prophylaxis: Not indicated as patient is already anticoagulated CODE STATUS: Verified with the patient that she wishes to be full code. Charges/Coding Visit Charges Inpatient E&M: 69790 Init Hosp L3 02/07/25 3929 Cosigner Signature (if applicable): CC: Dr. George Nichole DO; Dr. Liliam Alaniz MD~ Signed [facility]08-08-2025 Discharge summary [facility] Medical Records Department [address] [place] [address] Emergency Department Summary 02/07/25 MR#: [id number] Acct: [id number] Name: WINSTON OHARA Rep #:[id number] : 1950 74 From: Denisha FLETCHER PCP: Dr. 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 She had cardioversion in August 2024 that lasted 4 months then another cardioversion in December 2024 then only lasted 5 days. Cardiology has been adjusting her medications to try and treat it [facility] 1 week agothey stopped losartan, started metoprolol 50 mg once in the a.m., and she still on Xarelto and sotalol 80 mg twice a day and is compliant with all of these. She feels palpitations but denies chest pain. She has exertional dyspnea and over the last week has had bilateral ankle edema. She takes Lasixas needed and took it over last 3 days. [facility] Medical History (Updated 02/07/25 @ 16:44 by CHANCE English) Dyspnea Wears glasses Post-menopausal Arthritis History of diverticulitis Former smoker History of pain when walking History of edema Normal stress echocardiogram Hx of thyroid cyst Persistent atrial fibrillation (11/02/20) Paroxysmal atrial flutter (10/2017) Paroxysmal atrial fibrillation (10/2017) Essential (primary) hypertension Single kidney Insomnia Anxiety Atrial fibrillation with RVR Home Medications ?Medication ?Instructions ?Recorded ?Last Taken ?Type fluticasone propionate 50 15.8 ml NS DAILY PRN ALLERGI ES 10/19/17 02/02/21 History mcg/actuation nasal spray,suspension bismuth subsalicylate 262 mg 2 tablet PO Q30-60M PRN D iarrhea 10/08/20 02/02/21 History tablet (Pepto-Bismol) cholecalciferol (vitamin D3) 25 50 mcg PO DAILY Supple ment 01/20/21 02/05/21 17:00 History mcg (1,000 unit) tablet (Vitamin D3) sertraline 25 mg tablet 25 mg PO DAILY 08/09/2212/31 History acetaminophen 500 mg tablet 1,000 mg PO Q8 PRN pain Unknown History zolpidem 5 mg tablet 5 mg PO QHS Sleep 09/26/23 U nknown History furosemide 40 mg tablet 40 mg PO DAILY PRN edema #30 tabs 12/04/23 Unknown Rx rivaroxaban 20 mg tablet 20 mg PO DAILY #90 tabs 10/2501/13/25 Rx metoprolol succinate 50 mg 50 mg PO QDAY #90 tabs 07/27 Unknown Rx tablet,extended release 24 hr sotalol 80 mg tablet 80 mg PO BID #180 tabs 01/31 Unknown Rx Allergy/AdvReac Type Severity Reaction Status Date / Time flecainide Allergy Left Verified 01/10/25 09:27 Bundle Branch Block/BUE tingling/leg weakness aspirin (ASA) AdvReac ONLY HAS Verified 01/10/25 09:27 ONE KIDNEY, TOLD TO AVOID cortisone AdvReac CHEST HOT Verified 01/10/25 09:27 & WEIRD NSAIDS (Non-Steroidal AdvReac ONLY HAS Verified 01/10/25 09:27 Anti-Inflamma ONE KIDNEY, TOLD TO AVOID Family [...] in: walking frequency: daily ROS ROS ED ROS Narrative Constitutional: Negative for fever, chills, malaise. CVS: Positive for palpitations. No chest pain or syncope. Respiratory: Positive for exertional shortness of breath. GI: Negative for abdominal pain, nausea, vomiting. EXAM Physical Exam Narrative Exam Narrative: CONST: Patient sitting in no acute distress. EYES: Normal inspection. NECK: Normal inspection. RESP: No respiratory distress, CTAB. CVS: Tachycardic irregularly irregular, no murmur, no gallop. ABD: Soft and nontender, no guarding or rebound, nondistended. SKIN: Color normal, no rash, warm, dry, intact. EXTREMITIES: Normal appearance, no pedal edema. NEURO: Alert and answering questions appropriately. PSYCH: Normal affect. Const Vital Signs: 02/07/25 14:13 02/07/25 14:14 02/07/25 14:17 Temperature 97.7 F L Temperature Source Oral Pulse Rate 133 H 140 H Respiratory Rate 15 Respiratory Effort Short of Breath Blood Pressure 140/103 H Blood Pressure Mean 115 Pulse Ox 99 Oxygen Delivery Method Room Air 02/07/25 14:38 02/07/25 15:13 02/07/25 16:00 Temperature Temperature Source Pulse Rate 138 H 93 Respiratory Rate 13 15 Respiratory Effort Blood Pressure 128/110 H 114/81 H Blood Pressure Mean 116 92 Pulse Ox 95 95 95 Oxygen Delivery Method Room Air Room Air Room Air 02/07/25 16:54 02/07/25 17:00 Temperature Temperature Source Pulse Rate 114 H 107 H Respiratory Rate 11 L 21 H Respiratory Effort Blood Pressure 95/68 95/68 Blood Pressure Mean 77 77 Pulse Ox 94 96 Oxygen Delivery Method Room Air Physical Exam Const Vital Signs: 02/07/25 14:13 02/07/25 14:14 02/07/25 14:17 Temperature 97.7 F L Temperature Source Oral Pulse Rate 133 H 140 H Respiratory Rate 15 Respiratory Effort Short of Breath Blood Pressure 140/103 H Blood Pressure Mean 115 Pulse Ox 99 Oxygen Delivery Method Room Air 02/07/25 14:38 02/07/25 15:13 02/07/25 16:00 Temperature Temperature Source Pulse Rate 138 H 93 Respiratory Rate 13 15 Respiratory Effort Blood Pressure 128/110 H 114/81 H Blood Pressure Mean 116 92 Pulse Ox 95 95 95 Oxygen Delivery Method Room Air Room Air Room Air 02/07/25 16:54 02/07/25 17:00 Temperature Temperature Source Pulse Rate 114 H 107 H Respiratory Rate 11 L 21 H Respiratory Effort Blood Pressure 95/68 95/68 Blood Pressure Mean 77 77 Pulse Ox 94 96 Oxygen Delivery Method Room Air MDM MDM MDM Narrative Medical decision making narrative: History gathered from: Patient and spouse Differential: A-fib, a flutter, electrolyte derangement 74-year-old female with history of A-fib/flutter currently managed on multiple medications including Xarelto, sotalol, and metoprolol was sent down from the cardiology office for atrial flutter with RVR. She has had 4 prior cardioversions, the last one and December only lasted a couple days. She is awake alert no distress. She is in atrial flutter about 130-140, BP 140/100, and otherwise stable vitalsigns. Lungs are clear to auscultation bilaterally. There is trace bilateral ankle edema. Overall labs look good including CBC, BMP, TSH and magnesium all unremarkable. Troponin is 12. CXR shows no acute process. She was given IV Cardizem 20 mg boluses x 2 and she still persistentlyin atrial flutter around 120 bpm so was ordered Cardizem drip. I will discuss the case with the hospitalist for admission. I have personally performed a face to face assessment of the patient and have reviewed the KANIKA Note. I performed a substantive portion of the visit including all aspects of the following. My deleon findings include: History is [74-year-old female known history of A-fib/flutter. Currently on the blood thinner Xarelto. Presents today with a flutter with rapid rate. Has had 4 prior cardioversions the last one only lasted several days. She is set up to have a cardioversion done at [facility] But that is not till at least March.] Exam is [72-year-old female sitting upright in bed she is in atrial flutter rate about 130 she is tolerating it well. at bedside. H EENT exam pupils are round react light. Moist mucous members. Neck nontender. Lungs clear to auscultation bilaterally. Heart A-fib flutter rate about 130. Chest wall nontender. Abdomen soft nontender. Moving all 4 extremities. Nontender no edema. Normal document clerk strength. Normal dorsi plantarflexion. Neurologically she is awake alert. Answering questions following commands.] Medical Decision Making [74-year-old known A-fib flutter and atrial flutter rate 130 will given IV Cardizem have a cardiac workup.] Other additions or changes: [None] Lab Data Attestation: I reviewed the patient's lab results. Labs: Laboratory Results - last 24 hr 02/07/25 02/07/25 14:13 16:15 WBC 7.4 RBC 4.26 Hgb 13.1 Hct 39.4 MCV 92.5 MCH 30.8 MCHC 33.2 RDW Std Deviation 46.4 H RDW Coeff of Priscilla 14.0 Plt Count 224 MPV 10.8 Immature Gran % (Auto) 0.300 Neut % (Auto) 73.7 H Lymph % (Auto) 15.7 L [place] % (Auto) 8.3 Eos % (Auto) 1.5 Baso % (Auto) 0.5 Absolute Neuts (auto) 5.4 Absolute Lymphs (auto) 1.16 Nucleated RBC % 0 Sodium 137 Potassium 3.9 Chloride 101 Carbon Dioxide 23.2 Anion Gap 13 BUN 28 H Creatinine 1.03 Estim Creat Clear Calc 48.28 L Est GFR (MDRD) Non-Af 58 L BUN/Creatinine Ratio 27.6 H Glucose 147 H Calcium 9.6 Magnesium 2.2 Troponin T High Sens 12 D Troponin T Hi Sens 2 Hr 8 TSH 2.870 Radiography Diagnostic Testing: Clinical Impression(s) from Imaging Studies Chest X-Ray 02/07/25 14:50 IMPRESSION: No Acute Findings. Reading Location: [id number] ED attending interpretation two-view chest x-ray shows normal heart size, no acute infiltrate or effusion, EKG Initial EKG: Attestation: I personally reviewed and interpreted this EKG as follows: Interpretation: Atrial Flutter Comments: Atrial flutter with RVR at 125 bpm [facility] MDM Narrative Medical decision making narrative: I have personally performed a face to face assessment of the patient and have reviewed the KANIKA Note. I performed a substantive portion of the visit including all aspects of the following. My deleon findings include: History is [74-year-old female known history of A-fib/flutter. Currently on the blood thinner Xarelto. Presents today with a flutter with rapid rate. Has had 4 prior cardioversions the last one only lasted several days. She is set up to have a cardioversion done at [facility] But that is not till at least March.] Exam is [72-year-old female sitting upright in bed she is in atrial flutter rate about 130 she is tolerating it well. at bedside. H EENT exam pupils are round react light. Moist mucous members. Neck nontender. Lungs clear to auscultation bilaterally. Heart A-fib flutter rate about 130. Chest wall nontender. Abdomen soft nontender. Moving all 4 extremities. Nontender no edema. Normal document clerk strength. Normal dorsi plantarflexion. Neurologically she is awake alert. Answering questions following commands.] Medical Decision Making [74-year-old known A-fib flutter and atrial flutter rate 130 will given IV Cardizem have a cardiac workup.] Other additions or changes: [None] History & Record Review Discussion w/independent historian: Patient and Family Additional record(s) reviewed:: Prior inpatient record, Prior outpatient record, Prior ED visit andPrior labs Lab Data Lab results narrative: CBC shows a white count of 7. H&H 13-39. Platelets 224. Labs: Laboratory Results - last 24 hr 02/07/25 02/07/25 14:13 16:15 WBC 7.4 RBC 4.26 Hgb 13.1 Hct 39.4 MCV 92.5 MCH 30.8 MCHC 33.2 RDW Std Deviation 46.4 H RDW Coeff of Priscilla 14.0 Plt Count 224 MPV 10.8 Immature Gran % (Auto) 0.300 Neut % (Auto) 73.7 H Lymph % (Auto) 15.7 L [place] % (Auto) 8.3 Eos % (Auto) 1.5 Baso % (Auto) 0.5 Absolute Neuts (auto) 5.4 Absolute Lymphs (auto) 1.16 Nucleated RBC % 0 Sodium 137 Potassium 3.9 Chloride 101 Carbon Dioxide 23.2 Anion Gap 13 BUN 28 H Creatinine 1.03 Estim Creat Clear Calc 48.28 L Est GFR (MDRD) Non-Af 58 L BUN/Creatinine Ratio 27.6 H Glucose 147 H Calcium 9.6 Magnesium 2.2 Troponin T High Sens 12 D Troponin T Hi Sens 2 Hr 8 TSH 2.870 Radiography Diagnostic Testing: Clinical Impression(s) from Imaging Studies Chest X-Ray 02/07/25 14:50 IMPRESSION: No Acute Findings. Reading Location: [facility] Critical Care Time Critical Care Time: Yes Critical care time (excluding procedures): 30-74 minutes, Including time spent:, Discussing w/Patient &/or Family/[employer], Discussing w/Consultants, Arranging Admission or Transfer, PerformingDirect Patient Care at Bedside and - (35 minutes.) Discharge Plan Triage Chief Complaint: Chest Other ED Midlevel Provider: Denisha Chapa ED Provider: David Hartman Dx/Rx/DC Orders Clinical Impression: Atrial flutter with rapid ventricular response Prescriptions: No Action Pepto-Bismol 262 mg tablet 2 tablet PO Q30-60M PRN (Reason: Diarrhea) Rx Instructions: do not exceed 16 tabs per 24 hrs acetaminophen 500 mg tablet 1,000 mg PO Q8 PRN (Reason: pain) Rx Instructions: Do not take more than 3000 mg Tylenol in a 24-hour period. rivaroxaban 20 mg tablet 20 mg PO DAILY Qty: 90 3RF Patient Comments: LAST DOSE 01/28/21 metoprolol succinate 50 mg tablet extended release 24 hr 50 mg PO QDAY Qty: 90 3RF sotalol 80 mg tablet 80 mg PO BID Qty: 180 3RF zolpidem 5 mg tablet 5 mg PO QHS fluticasone propionate 9.9 ML spray,suspension 15.8 ml NS DAILY PRN (Reason: ALLERGIES) cholecalciferol (vitamin D3) [Vitamin D3] 25 mcg (1,000 unit) Tablet 50 mcg PO DAILY sertraline 25 mg tablet 25 mg PO DAILY Patient Comments: take 1 tablet by mouth once daily furosemide 40 mg tablet 40 mg PO DAILY PRN (Reason: edema) Qty: 30 11RF Primary Care Provider: Liliam Alaniz Referrals: Liliam Alaniz MD [Primary Care Provider] - Print Language: Ethiopian Disposition Disposition: Acute Care Hospital [facility] What to do if you have Problems For any increased pain, shortness of breath, bleeding, nausea or vomiting, chestpain, or any unexpected problems, contact your Primary Care Provider. Call [facility] ([phone]) or report tothe closest Emergency Room. Call 911 if necessary. 02/07/25 1649 Cosigner Signature (if applicable): 02/07/25 1702 CC: Dr. Liliam Alaniz MD ~ Signed [facility]08-08-2025 Radiology Diagnostic study note [facility] Imaging Services [address] [place], [place] [address] Chest 1 View (Portable) MR#: [id number] Acct: [id number] Name: WINSTON OHARA Rep #: [id number] : 1950 F 74 From: Graham Castellon MD PCP: Dr. Liliam Alaniz MD Status: RE G ER Study:Chest 1 View (Portable) Date of Exam: 02/07/25 Exam# [id number] Ordering Dr: Denisha Luke PROCEDURE: CHEST 1 VIEW (PORTABLE) 02/07/2025 REASON FOR EXAM: CHEST PAIN TECHNIQUE: Frontal view of the chest. COMPARISON: Prior study dated September 16, 2024. FINDINGS: Hardware: EKG electrodes are seen. Heart: Heart size upper limits of normal. Lungs: The lungs are clear. Bones: Degenerative changes are identified within the thoracic spine. Other: RAD/Chest 1 View (Portable) IMPRESSION: No Acute Findings. Reading Location: [id number] CC: Dr. Liliam Alaniz MD; CHANCE English ~ Manager Multimedia: Signed [facility]08-08-2025 Discharge summary Author Denisha Chapa [facility] Note Date/Time February 07, 2025 5:0 2pm [facility] Medical Records Department [address] [facility] [place] [address] Emergency Department Summary 02/07/25 MR#: [id number] Acct: [id number] Name: WINSTON OHARA Rep #:[id number] : 1950 74 From: Denisha FLETCHER PCP: Dr. 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 She had cardioversion in August 2024 that lasted 4 months then another cardioversion in December 2024 then only lasted 5 days. Cardiology has been adjusting her medications to try and treat it [facility]. 1 week ago they stopped losartan, started metoprolol 50 mg once in the a.m., and she still on Xarelto and sotalol 80 mg twice a day and is compliant with all of these. She feels palpitations but denies chest pain. She has exertional dyspnea and over the last week has had bilateral ankle edema. She takes Lasix as needed and took it over last 3 days. [facility] <CHANCE English - Last Filed: 02/07/25 16:49> [facility] Medical History (Updated 02/07/25 @ 16:44 by CHANCE English) Dyspnea Wears glasses Post-menopausal Arthritis History of diverticulitis Former smoker History of pain when walking History of edema Normal stress echocardiogram Hx of thyroid cyst Persistent atrial fibrillation (11/02/20) Paroxysmal atrial flutter (10/2017) Paroxysmal atrial fibrillation (10/2017) Essential (primary) hypertension Single kidney Insomnia Anxiety Atrial fibrillation with RVR Home Medications ?Medication ?Instructions ?Recorded ?Last Taken ?Type fluticasone propionate 50 15.8 ml NS DAILY PRN ALLERGI ES 10/19/17 02/02/21 History mcg/actuation nasal spray,suspension bismuth subsalicylate 262 mg 2 tablet PO Q30-60M PRN D iarrhea 10/08/20 02/02/21 History tablet (Pepto-Bismol) cholecalciferol (vitamin D3) 25 50 mcg PO DAILY Supple ment 01/20/21 02/05/21 17:00 History mcg (1,000 unit) tablet (Vitamin D3) sertraline 25 mg tablet 25 mg PO DAILY 08/09/2212/31 History acetaminophen 500 mg tablet 1,000 mg PO Q8 PRN pain Unknown History zolpidem 5 mg tablet 5 mg PO QHS Sleep 09/26/23 U nknown History furosemide 40 mg tablet 40 mg PO DAILY PRN edema #30 tabs 12/04/23 Unknown Rx rivaroxaban 20 mg tablet 20 mg PO DAILY #90 tabs 10/2501/13/25 Rx metoprolol succinate 50 mg 50 mg PO QDAY #90 tabs 07/27 Unknown Rx tablet,extended release 24 hr sotalol 80 mg tablet 80 mg PO BID #180 tabs 01/31 Unknown Rx Allergy/AdvReac Type Severity Reaction Status Date / Time flecainide Allergy Left Verified 01/10/25 09:27 Bundle Branch Block/BUE tingling/leg weakness aspirin (ASA) AdvReac ONLY HAS Verified 01/10/25 09:27 ONE KIDNEY, TOLD TO AVOID cortisone AdvReac CHEST HOT Verified 01/10/25 09:27 & WEIRD NSAIDS (Non-Steroidal AdvReac ONLY HAS Verified 01/10/25 09:27 Anti-Inflamma ONE KIDNEY, TOLD TO AVOID Family [...] you participate in: walking frequency: daily ROS <HCANCE English - Last Filed: 02/07/25 16:49> ROS ED ROS Narrative Constitutional: Negative for fever, chills, malaise. CVS: Positive for palpitations. No chest pain or syncope. Respiratory: Positive for exertional shortness of breath. GI: Negative for abdominal pain, nausea, vomiting. EXAM <CHANCE English - Last Filed: 02/07/25 16:49> Physical Exam Narrative Exam Narrative: CONST: Patient sitting in no acute distress. EYES: Normal inspection. NECK: Normal inspection. RESP: No respiratory distress, CTAB. CVS: Tachycardic irregularly irregular, no murmur, no gallop. ABD: Soft and nontender, no guarding or rebound, nondistended. SKIN: Color normal, no rash, warm, dry, intact. EXTREMITIES: Normal appearance, no pedal edema. NEURO: Alert and answering questions appropriately. PSYCH: Normal affect. Const Vital Signs: 02/07/25 14:13 02/07/25 14:14 02/07/25 14:17 Temperature 97.7 F L Temperature Source Oral Pulse Rate 133 H 140 H Respiratory Rate 15 Respiratory Effort Short of Breath Blood Pressure 140/103 H Blood Pressure Mean 115 Pulse Ox 99 Oxygen Delivery Method Room Air 02/07/25 14:38 02/07/25 15:13 02/07/25 16:00 Temperature Temperature Source Pulse Rate 138 H 93 Respiratory Rate 13 15 Respiratory Effort Blood Pressure 128/110 H 114/81 H Blood Pressure Mean 116 92 Pulse Ox 95 95 95 Oxygen Delivery Method Room Air Room Air Room Air 02/07/25 16:54 02/07/25 17:00 Temperature Temperature Source Pulse Rate 114 H 107 H Respiratory Rate 11 L 21 H Respiratory Effort Blood Pressure 95/68 95/68 Blood Pressure Mean 77 77 Pulse Ox 94 96 Oxygen Delivery Method Room Air <Dr. David Hartman MD - Last Filed: 02/07/25 17:02> Physical Exam Const Vital Signs: 02/07/25 14:13 02/07/25 14:14 02/07/25 14:17 Temperature 97.7 F L Temperature Source Oral Pulse Rate 133 H 140 H Respiratory Rate 15 Respiratory Effort Short of Breath Blood Pressure 140/103 H Blood Pressure Mean 115 Pulse Ox 99 Oxygen Delivery Method Room Air 02/07/25 14:38 02/07/25 15:13 02/07/25 16:00 Temperature Temperature Source Pulse Rate 138 H 93 Respiratory Rate 13 15 Respiratory Effort Blood Pressure 128/110 H 114/81 H Blood Pressure Mean 116 92 Pulse Ox 95 95 95 Oxygen Delivery Method Room Air Room Air Room Air 02/07/25 16:54 02/07/25 17:00 Temperature Temperature Source Pulse Rate 114 H 107 H Respiratory Rate 11 L 21 H Respiratory Effort Blood Pressure 95/68 95/68 Blood Pressure Mean 77 77 Pulse Ox 94 96 Oxygen Delivery Method Room Air MDM <CHANCE English - Last Filed: 02/07/25 16:49> [facility] MDM Narrative Medical decision making narrative: History gathered from: Patient and spouse Differential: A-fib, a flutter, electrolyte derangement 74-year-old female with history of A-fib/flutter currently managed on multiple medications including Xarelto, sotalol, and metoprolol was sent down from the cardiology office for atrial flutter with RVR. She has had 4 prior cardioversions, the last one and December only lasted a couple days. She is awake alert no distress. She is in atrial flutter about 130-140, BP 140/100, and otherwise stable vital signs. Lungs are clear to auscultation bilaterally. There is trace bilateral ankle edema. Overall labs look good including CBC, BMP, TSH and magnesium all unremarkable. Troponin is 12. CXR shows no acute process. She was given IV Cardizem 20 mg boluses x 2 and she still persistentlyin atrial flutter around 120 bpm so was ordered Cardizem drip. I will discuss the case with the hospitalist for admission. I have personally performed a face to face assessment of the patient and have reviewed the KANIKA Note. I performed a substantive portion of the visit including all aspects of the following. My deleon findings include: History is [74-year-old female known history of A-fib/flutter. Currently on the blood thinner Xarelto. Presents today with a flutter with rapid rate. Has had 4 prior cardioversions the last one only lasted several days. She is set up to have a cardioversion done at [facility] But that is not till at least March.] Exam is [72-year-old female sitting upright in bed she is in atrial flutter rate about 130 she is tolerating it well. at bedside. H EENT exam pupils are round react light. Moist mucous members. Neck nontender. Lungs clear to auscultation bilaterally. Heart A-fib flutter rate about 130. Chest wall nontender. Abdomen soft nontender. Moving all 4 extremities. Nontender no edema. Normal document clerk strength. Normal dorsi plantarflexion. Neurologically she is awake alert. Answering questions following commands.] Medical Decision Making [74-year-old known A-fib flutter and atrial flutter rate 130 will given IV Cardizem have a cardiac workup.] Other additions or changes: [None] Lab Data Attestation: I reviewed the patient's lab results. Labs: Laboratory Results - last 24 hr 02/07/25 02/07/25 14:13 16:15 WBC 7.4 RBC 4.26 Hgb 13.1 Hct 39.4 MCV 92.5 MCH 30.8 MCHC 33.2 RDW Std Deviation 46.4 H RDW Coeff of Priscilla 14.0 Plt Count 224 MPV 10.8 Immature Gran % (Auto) 0.300 Neut % (Auto) 73.7 H Lymph % (Auto) 15.7 L [place] % (Auto) 8.3 Eos % (Auto) 1.5 Baso % (Auto) 0.5 Absolute Neuts (auto) 5.4 Absolute Lymphs (auto) 1.16 Nucleated RBC % 0 Sodium 137 Potassium 3.9 Chloride 101 Carbon Dioxide 23.2 Anion Gap 13 BUN 28 H Creatinine 1.03 Estim Creat Clear Calc 48.28 L Est GFR (MDRD) Non-Af 58 L BUN/Creatinine Ratio 27.6 H Glucose 147 H Calcium 9.6 Magnesium 2.2 Troponin T High Sens 12 D Troponin T Hi Sens 2 Hr 8 TSH 2.870 Radiography Diagnostic Testing: Clinical Impression(s) from Imaging Studies Chest X-Ray 02/07/25 14:50 IMPRESSION: No Acute Findings. Reading Location: [facility] ED attending interpretation two-view chest x-ray shows normal heart size, no acute infiltrate or effusion, EKG Initial EKG: Attestation: I personally reviewed and interpreted this EKG as follows: Interpretation: Atrial Flutter Comments: Atrial flutter with RVR at 125 bpm <Dr. David Hartman MD - Last Filed: 02/07/25 17:02> [facility] Narrative Medical decision making narrative: I have personally performed a face to face assessment of the patient and have reviewed the KANIKA Note. I performed a substantive portion of the visit including all aspects of the following. My deleon findings include: History is [74-year-old female known history of A-fib/flutter. Currently on the blood thinner Xarelto. Presents today with a flutter with rapid rate. Has had 4 prior cardioversions the last one only lasted several days. She is set up to have a cardioversion done at [facility] But that is not till at least March.] Exam is [72-year-old female sitting upright in bed she is in atrial flutter rate about 130 she is tolerating it well. at bedside. H EENT exam pupils are round react light. Moist mucous members. Neck nontender. Lungs clear to auscultation bilaterally. Heart A-fib flutter rate about 130. Chest wall nontender. Abdomen soft nontender. Moving all 4 extremities. Nontender no edema. Normal document clerk strength. Normal dorsi plantarflexion. Neurologically she is awake alert. Answering questions following commands.] Medical Decision Making [74-year-old known A-fib flutter and atrial flutter rate 130 will given IV Cardizem have a cardiac workup.] Other additions or changes: [None] History & Record Review Discussion w/independent historian: Patient and Family Additional record(s) reviewed:: Prior inpatient record, Prior outpatient record, Prior ED visit and Prior labs Lab Data Lab results narrative: CBC shows a white count of 7. H&H 13-39. Platelets 224. Labs: Laboratory Results - last 24 hr 02/07/25 02/07/25 14:13 16:15 WBC 7.4 RBC 4.26 Hgb 13.1 Hct 39.4 MCV 92.5 MCH 30.8 MCHC 33.2 RDW Std Deviation 46.4 H RDW Coeff of Priscilla 14.0 Plt Count 224 MPV 10.8 Immature Gran % (Auto) 0.300 Neut % (Auto) 73.7 H Lymph % (Auto) 15.7 L [place] % (Auto) 8.3 Eos % (Auto) 1.5 Baso % (Auto) 0.5 Absolute Neuts (auto) 5.4 Absolute Lymphs (auto) 1.16 Nucleated RBC % 0 Sodium 137 Potassium 3.9 Chloride 101 Carbon Dioxide 23.2 Anion Gap 13 BUN 28 H Creatinine 1.03 Estim Creat Clear Calc 48.28 L Est GFR (MDRD) Non-Af 58 L BUN/Creatinine Ratio 27.6 H Glucose 147 H Calcium 9.6 Magnesium 2.2 Troponin T High Sens 12 D Troponin T Hi Sens 2 Hr 8 TSH 2.870 Radiography Diagnostic Testing: Clinical Impression(s) from Imaging Studies Chest X-Ray 02/07/25 14:50 IMPRESSION: No Acute Findings. Reading Location: [id number] <Dr. David Hartman MD - Last Filed: 02/07/25 17:02> Critical Care Time Critical Care Time: Yes Critical care time (excluding procedures): 30-74 minutes, Including time spent:, Discussing w/Patient &/or Family/Silk Screen Printer Machine, Discussing w/Consultants, Arranging Admission or Transfer, Performing Direct Patient Care at Bedside and - (35 minutes.) Discharge Plan Triage Chief Complaint: Chest Other ED Midlevel Provider: Denisha Chapa ED Provider: David Hartman Dx/Rx/DC Orders Clinical Impression: Atrial flutter with rapid ventricular response Prescriptions: No Action Pepto-Bismol 262 mg tablet 2 tablet PO Q30-60M PRN (Reason: Diarrhea) Rx Instructions: do not exceed 16 tabs per 24 hrs acetaminophen 500 mg tablet 1,000 mg PO Q8 PRN (Reason: pain) Rx Instructions: Do not take more than 3000 mg Tylenol in a 24-hour period. rivaroxaban 20 mg tablet 20 mg PO DAILY Qty: 90 3RF Patient Comments: LAST DOSE 01/28/21 metoprolol succinate 50 mg tablet extended release 24 hr 50 mg PO QDAY Qty: 90 3RF sotalol 80 mg tablet 80 mg PO BID Qty: 180 3RF zolpidem 5 mg tablet 5 mg PO QHS fluticasone propionate 9.9 ML spray,suspension 15.8 ml NS DAILY PRN (Reason: ALLERGIES) cholecalciferol (vitamin D3) [Vitamin D3] 25 mcg (1,000 unit) Tablet 50 mcg PO DAILY sertraline 25 mg tablet 25 mg PO DAILY Patient Comments: take 1 tablet by mouth once daily furosemide 40 mg tablet 40 mg PO DAILY PRN (Reason: edema) Qty: 30 11RF Primary Care Provider: Liliam Alaniz Referrals: Liliam Alaniz MD [Primary Care Provider] - Print Language: Ethiopian Disposition Disposition: Acute Care Hospital [facility] What to do if you have Problems For any increased pain, shortness of breath, bleeding, nausea or vomiting, chestpain, or any unexpected problems, contact your Primary Care Provider. Call [facility] ([phone]) or report to the closest Emergency Room. Call 911 if necessary. 02/07/25 1649 <Electronically signed by Denisha FLETCHER> Cosigner Signature (if applicable): 02/07/25 1702 <Electronically signed by David Hartman MD> CC: Dr. Liliam Alaniz MD ~ Signed [facility] Work Phone: 1(853) 216-462307-14-2025 Procedure note [facility] Medical Records Department [address] [place] [address] Procedure Report 01/13/25 1312 MR#: [id number] Acct: [id number] Name: WINSTON OHARA Rep #:[id number] : 1950 74 From: Gage Zuñiga DO PCP: Dr. Liliam Alaniz MD Status:RE G [facility] Location: [facility] Procedures Pulmonary Pulmonary Procedures /Diagnostic Testin Con Sedation Non-invasive Procedural Procedure Information Date of Procedure: 01/13/25 Description of procedure: CONSCIOUS SEDATION REPORT DATE OF SERVICE: January 13, 2025 BRIEF HISTORY OF PRESENT ILLNESS: The patient is a 74-year-old female who presented to [facility] to undergo an elective outpatient cardioversion due [...] a female, in no apparent distress, speaking infull sentences. HEENT: Normocephalic, atraumatic. Mucous membranes are [...] appropriate level of sedation and was given a200 joule synchronized cardioversion by Dr. Thapa at [...] Dr. Gage Zuñiga DO; Dr. Liliam Alaniz MD~ Signed [facility]07-14-2025 Procedure note [facility] Medical Records Department [address] [place] [address] Procedure Report 01/13/25 1212 MR#: [id number] Acct: [id number] Name: WINSTON OHARA Rep #:[id number] : 1950 74 From: Sterling Thapa MD PCP: Dr. Liliam Alaniz MD Status:[facility] Location: [facility] Problems Associated Problem List Diagnoses (1) Paroxysmal atrial flutter: Non-invasive Procedural Procedure Information Date of Procedure: 01/13/25 Pre-Procedure Diagnosis: Atrial flutter Post-Procedure Diagnosis: Same Procedure Performed:: DC cardioversion inseam leveler: No Procedure Time Out: 12:01 Procedure Start Time: 12:04 Procedure Stop Time: 12:10 Special Medications: 40 mg of intravenous propofol Description of procedure: Patient was brought to cardiac catheterization lab in the postabsorptive nonsedated state. Informedconsent was obtained. Patient was seen by Dr. Zuñigaof the critical care division. Anterior posterior pads [...] Dr. Sterling Thapa MD; Dr. Liliam Alaniz MD~ Signed [facility]06-26-2025 Instructions* Patient Instructions* Liliam Alaniz MD - 12/26/2024 11:24 AM EDT - Continue taking sertraline at your current dose; refill has been sent to [facility] and will auto-refill in May. - Fill your new zolpidem (Ambien) prescription--90 tablets with refills--at [facility]; you maypick up a 30-day supply once your previous fill is 30 days old. - Stop taking Lasix; it has been removed from your active medications. - Discontinue Bactroban (mupirocin) cream; you no longer need this. - Continue sotalol twice daily as prescribed; do not adjust your dose without approval from your flower grader. - Keep taking your vitamin D supplement [...] while you watch TV. - Eat more qyvbf-4-ryjv foods--such as fatty fish, flaxseed, edamame, and walnuts--to support your good cholesterol levels. - Schedule a consultation with an battery plate assembler (EP) to discuss AFib ablation. Once you [...] cardiology clearance before surgery. documented in this encounterOhio[facility]06-26-[facility]25 History of Present illness Narrative* Liliam Alaniz MD - 12/26/2024 10:20 AM EDT This note was created using [employer]. Subjective Winston Ohara is a 74 year [...] undergoing an ablation procedure recommended by her flower grader, Dr. Ling, and seeks advice on whether to prioritize the ablation or knee surgery. She also mentions a history of COVID-19, which she believes may have triggered her atrial fibrillation episodes. She is currently taking sertraline for anxiety and depression, which she reports helpsmanage her emotions. She also takes losartan for [...] Abs Lymph 1.00 - 4.00 k/uL 1.00 [place]% % 7.8 Abs [place] <0.87 k/uL 0.40 Eosin% % 3.3 Abs [...] Zolpidem; reordered 90-day supply with refill to [facility]. - Continue current regimen. # Paroxysmal atrial fibrillation (HCC) (I48.0) - Recent episode post-COVID; currently in normal sinus rhythm with occasional ectopic beats. - Managed with Sotalol; advised against altering dosage without cardiology consultation. - Discussed potential benefits of ablation to maintain sinus rhythm and reduce medication dependency. - Consider referral to Dr. Gil, learning specialist at [facility], or other [facility] provider, for evaluation and second opinion. - Advised to schedule an appointment with learning specialist to discuss ablation and obtain surgical [...] current supplementation. Liliam Alaniz MD Recording using Quotefish software for draft documentation of the visit was discussed with the patient/authorized car sales representative; all questions welcomed and answered. Patient/authorized car sales representative agreed to proceed documented in this encounterOhiohealth Doctors Hospital06-26-2025 NoteHNO ID: [id number] Author: LILIAM ALANIZ MD Service: ? Author Type: Physician Type: Progress Notes Filed: 12/26/2024 11:24 Note Text: This note was created using [employer]. Subjective Winston Ohara is a 74 year [...] undergoing an ablation procedure recommended by her flower grader, Dr. Ling, and seeks advice on whether [...] lower leg: No edema (more content not included)...[facility]06-09-2025 Telephone encounter Note* Telephone Encounter - Liliam Alaniz MD - 12/09/2024 6:33 PM EDT The following approved medication requests have been transmitted electronically. Requested Prescriptions Signed Prescriptions Disp Refills zolpidem (AMBIEN) 5 mg tablet 90 tablet 1 Sig: Take 1 tablet by mouth at bedtime as needed for sedation for up to 180 days. Patient should start on December 15, 2024. Authorizing Provider: LILIAM ALANIZ MD [facility]06-09-2025 Miscellaneous Notes* Telephone Encounter - Liliam Alaniz MD - 12/09/2024 6:33 PM EDT The following approved medication requests have been transmitted electronically. Requested Prescriptions Signed Prescriptions Disp Refills zolpidem (AMBIEN) 5 mg tablet 90 tablet 1 Sig: Take 1 tablet by mouth at bedtime as needed for sedation for up to 180 days. Patient should start on December 15, 2024. Authorizing Provider: LILIAM ALANIZ, MD * Telephone Encounter - Jessica Benoit LPN - 12/09/2024 1:50 PM EDT Prescription Refill Information The patient has been [...] 09, 2024 1:51 PM documented in this encounterOhiohealth Doctors Hospital06-09-2025 Telephone encounter Note * Telephone Encounter - Jessica Benoit LPN - 12/09/2024 1:50 PM EDT Prescription Refill Information The patient has been [...] Benoit LPN December 09, 2024 1:51 PM [facility]04-04-2025 Progress note* Result Encounter Note - Katey Stanton APRN.LAWN MOWER OPERATOR - 10/04/2024 4:17 PM EDT Benign findings, 1 year screening mammogram advised. [facility]04-04-2025 Miscellaneous Notes* Result Encounter Note - Katey Stanton APRN.CNS - 10/04/2024 4:17 PM EDT Benign findings, 1 year screening mammogram advised. documented in this encounterOhiohealth Doctors Hospital04-04-2025 Evaluation note* Diagnosis Onset Date Resolution Status Admit Date Essential (primary) hypertension chronic October 04, 2024 1:39pm Paroxysmal atrial fibrillation October, outfitter cabin richy October 04, 2024 1:39pm Paroxysmal atrial flutter October, chronic January 10, 2025 9:23am [facility] Work Phone: 1(294) 177-680904-04-2025 Evaluation note* Diagnosis Onset Date Resolution Status Admit Date Essential (primary) hypertension chronic October 04, 2024 1:39pm Paroxysmal atrial fibrillation October, outfitter cabin richy October 04, 2024 1:39pm Paroxysmal atrial flutter October, chronic January 10, 2025 9:23am Paroxysmal atrial flutter October, chronic January 13, 2025 10:24am [facility] Work Phone: 1(299) 769-144503-24-2025 History of Present illness Narrative* Dena Bravo [...] PATIENT PRESENTS WITH AN IMPLANTABLE OR ATTACHED HARNESS REPAIRER: No RADIOLOGY DEPARTMENT: Mammography PERIPHERAL IV DATA: Not applicable SIGNED BY: Sean Gutierrez September 23, 2024 1:44 PM documented in this encounterOhiohealth Doctors Hospital03-24-2025 NoteHNO ID: [id number] Author: DENA BRAVO Mammo Tech Service: ? Author Type: Meat Curer Type: Progress Notes Filed: 09/23/2024 13:44 Note [...] PATIENT PRESENTS WITH AN IMPLANTABLE OR ATTACHED HARNESS REPAIRER: No RADIOLOGY DEPARTMENT: Mammography PERIPHERAL IV DATA: Not applicable SIGNED BY: Sean Gutierrez September 23, 2024 1:44 [facility]03-17-2025 Radiology Diagnostic study note [facility] Imaging Services [address] [place] [address] [id number] Chest 1 View (Portable) MR#: [id number] Acct: [id number] Name: WINSTON OHARA Rep #: [id number] : 1950 F 74 From: Gerard Vaca MD PCP: Dr. Liliam Alaniz MD Status: RE G ER Study:Chest 1 View (Portable) Date of Exam: 09/16/24 Exam# [id number] Ordering Dr: Audie Nieves DO PROCEDURE: CHEST 1 VIEW (PORTABLE) 09/16/2024 REASON FOR EXAM: CHEST PAIN TECHNIQUE: Frontal view of the chest. COMPARISON: 06 February 2021 FINDINGS: The heart size is normal. The lungs are clear. Demineralization of the bones. Stable examination when compared to prior. RAD/Chest 1 View (Portable) IMPRESSION: No measurable change. Reading Location: [id number] CC: Dr. Liliam Alaniz MD; Dr. Audie Nieves, DO ~ Manager Multimedia: Signed [facility]02-27-2025 Instructions* Patient Instructions* Reji Thomason APRN.SOLE INKER - 08/29/2024 7:56 PM EST Fact Sheet [...] of LAGEVRIO during to this registry at https://covid-pr.Emailage.DP7 Digital or . For individuals who are sexually [...] virus. COVID-19 illnesses have ranged from very sfwg-bz-gtpkbj, including illness resulting in . While information [...] serious illnesses Take any medicines including prescription, pdlw-vmg-fjrawvs medicines, vitamins, and herbal products. How do [...] NG or OG that is size 12 Cymro (FR) or larger. If you miss a [...] to treat people with COVID-19. Go to https://www.fda.gov/vzibzyehr-tyhxrzbvudoj-xes-response/dnl-ymfhkfcbnzyiowt-osr- policy-framework/ttkodopfx-wbs-kqhmooyugdaxn for more information. It is your choice [...] to FDA MedWatch at www.fda.gov/medwatch or call 9-669-KNW-2034 (1335.644.6840). How should I store LAGEVRIO? Store LAGEVRIO capsules at room temperature between 68 F to 77 F (20 C to 25 C). Keep LAGEVRIO and all medicines out of the reach of children. How can I learn more about COVID-19? Ask your healthcare provider. Visit www.cdc.gov/COVID19 Contact your local or state public health department. Call [employer] at (toll free in the [place] Visit wwwRaNA Therapeutics What Is an Emergency Use Authorization (EUA)? The [place] FDA has made LAGEVRIO available under an emergency access mechanism called an Emergency Use Authorization (EUA) The EUA is supported by a Manager Distribution of Health and Human Service (HHS)declaration that circumstances exist to justify emergency use of drugs and biological products during the COVID-19 pandemic. LAGEVRIO for the treatment of adults with a current diagnosis of wvbu-iz-rwczloae COVID-19 who are at high risk for [...] be used under the EUA). Mario. for: [employer] [address] For patent information: www.Tagora/research/patent Copyright [employer] [place], [place], [facility] and its affiliates. All rights reserved. [id number] Revised: August 2022 documented in this encounterOhiohealth Doctors Hospital02-27-2025 NoteHNO ID: [id number] Author: REJI THOMASON APRN.MECHE Service: ? Author Type: Nurse Practitioner Type: Progress Notes Filed: 08/29/2024 20:09 Note Text: Molnupiravir Eligibility and Patient Discussion [facility] Formulary Restriction Criteria: Adult outpatients 18 [...] to proceeding with molnupiravir treatment. Reji Thomason APRN.MECHE August 29, 2024 7:57 PM CC: Patient presents with: Covid Positive: Tested today + for Covid, after exposure on Sat, fever, achy, eyes watery, runny nose, slight cough, stomach ache, diarrhea, ear pain x yesterda (more content not included)...[facility]02-27-2025 History of Present illness Narrative* Reji Thomason APRN.SOLE INKER - 08/29/2024 7:49 PM EST Molnupiravir Eligibility and Patient Discussion [facility] Formulary Restriction Criteria: Adult outpatients 18 [...] to proceeding with molnupiravir treatment. Reji Thomason APRN.SOLE INKER August 29, 2024 7:57 PM CC: Patient [...] Patient agreeable to treatment plan. Reji Thomason APRN.SOLE INKER documented in this encounterOhiohealth Doctors Hospital02-27-2025 Telephone encounter Note * Telephone Encounter - Chica Sapp RN - 08/29/2024 6:46 PM EST Please see phone encounter from today. Pt did not read MyChart msg and states she is unable to do VV. Pt and her [facility]. [facility]02-27-[facility] Miscellaneous Notes* Telephone Encounter - Chica Sapp RN - 08/29/2024 6:46 PM EST Please see phone encounter from today. Pt did not read MyChart msg and states she is unable to do VV. Pt and her are going to [facility] to [facility] this evening. documented in this encounterOhiohealth [facility] Hospital02-27-2025 Telephone encounter Note * Telephone Encounter [...] be seen in [facility]. [facility]02-27-2025 Miscellaneous Notes* Telephone Encounter - Chica [...] be seen in [facility] this evening. * Telephone Encounter - Juilano Jenkins RN - 08/29/2024 11:46 AM EST [...] masksand will wear them. documented in this encounterOhiohealth [facility] Hospital02-27-2025 Telephone encounter Note * Telephone Encounter [...] able to wear masksand will wear them. [facility]12-13-2024 Instructions* Patient Instructions* Liliam Alaniz MD - 06/14/2024 3:11 PM EST - Continue taking Losartan 100 mg daily as prescribed. - Take Sotalol as prescribed; monitor for any episodes of atrial fibrillation (AFib) and report them to your flower grader. - Use Lasix as needed for swelling. [...] the readings. - Follow up with your flower grader in August. - Get a tetanus shot [...] review all the medicines you take, even umxl-scl-mevzftb medicines. As you get older, the way [...] have certain medical conditions. documented in this encounterOhiohealth Doctors Hospital12-13-2024 NoteHNO ID: [id number] Author: LILIAM ALANIZ MD Service: ? Author Type: Physician Type: Progress Notes Filed: 06/14/2024 16:09 Note Text: This note was created using [facility] [facility]. Subjective Winston Ohara is a 74 year [...] ALLERGIES Allergen Reactions Flagy (more content not included)...[facility]12-13-2024 History of Present illness Narrative* Liliam Alaniz MD - 06/14/2024 3:10 PM EST Images from the original note were not included. This note was created using [facility]. Subjective Winston Ohara is a 74 year [...] Abs Lymph 1.00 - 4.00 k/uL 1.00 [place]% % 7.8 Abs [place] <0.87 k/uL 0.40 Eosin% % 3.3 Abs [...] medical record. Outside specialists seen: Dr. Thapa ([facility]); Dr. Pond (hand former helper) Medical/Family history review Reviewed and updated problem [...] optometry/ophthalmology Assessment/Plan Medicare annual wellness visit, subsequent (Z00.00) - Counseled on healthy diet and regular [...] August. Liliam Alaniz MD documented in this encounterOhiohealth Doctors Hospital11-26-2024 Telephone encounter Note * Telephone Encounter [...] 19, 2024. Authorizing Provider: LILIAM ALANIZ MD [facility]11-26-[facility]24 Miscellaneous Notes* Telephone Encounter - Liliam [...] you. Lidia Marinelli LPN. documented in this encounterOhiohealth Doctors Hospital11-26-2024 Telephone encounter Note * Telephone Encounter [...] Please advise. Thank you. Lidia Marinelli LPN. [facility]06-19-2024 Instructions* Patient Instructions* Liliam Alaniz MD [...] losartan. Consider valsartan (Diovan). documented in this encounterOhiohealth Doctors Hospital06-19-2024 History of Present illness Narrative* Liliam Alaniz MD - 12/20/2023 9:29 AM EDT This note was created using NoteWriter. Subjective Winston Ohara is a 73 year [...] Wt 69.9 kg (154 lb) LMP 08/31/2009 IwE227% BMI 26.43 kg/m Last 5 Encounter Wt [...] Abs Lymph 1.00 - 4.00 k/uL 1.00 [place]% % 7.8 Abs [place] <0.87 k/uL 0.40 Eosin% % 3.3 Abs [...] sleep. Liliam Alaniz MD documented in this encounterOhiohealth Doctors Hospital02-27-2024 Miscellaneous Notes* Letter - Coordinator, Mammography - 08/29/2023 10:31 AM EST August 29, 2023 PID: [id number] Winston [address] [place] [address] Dear Lev, We are pleased to inform you that [...] report will be kept on file at [facility] as part of your permanent medical record and are available for your continuing care. Thank you for allowing us to help in meeting your health care needs. Sincerely, Dr. Mendenhall Interpreting Radiologist [facility] (Normal over 40) documented in this encounterOhiohealth Doctors Hospital10-12-2023 Discharge summary Author Jf Gallegos [facility] April 13, 2023 4:44pm Note Date/Time April 13, 2023 1 :10pm [facility] Medical Records Department [address] [place] [address] Emergency Department Summary 04/13/23 MR#: [id number] Acct: [id number] Name: WINSTON OHARA Rep #:[id number] : 1950 73 From: Jf Sinclair PCP: [...] that showed dilated left and right atrium. [facility] Medical History Anxiety Arthritis Atrial fibrillation with [...] (Initial Baseline)] Oxygen Flow Rate (L/min) [4] 04/13/23 14:54 04/13/23 15:03 04/13/23 15:08 Temperature Temperature [...] I discussed the case with the patient's flower grader Dr. Thapa. We are both in agreement [...] 71.9 H Lymph % (Auto) 17.7 L [place] % (Auto) 6.8 Eos % (Auto) 2.3 [...] Signed: Lyssa Coleman MD at 13:49 EDT Reading Location ID and State: [facility] [place] Tel , Service support , EKG Initial EKG: Attestation: I personally reviewed and interpreted this EKG as follows: Comments: Atrial fibrillation with rapid ventricular response of 141 bpm. Follow-up EKG: Attestation: I personally reviewed and interpreted this EKG as follows: Comments: Sinus bradycardia with ventricular rate of 56 bpm. No concerning features of ACS noted. Management Discussion w/another healthcare provider: Hand Trimmer (Cardiology (Dr. Thapa)) Procedures Procedural Sedation 1 [...] your Primary Care Provider. Call [facility] ([phone]) or report to the closest Emergency Room. Call 911 if necessary. 04/13/23 1644 <Electronically signed by Jf Gallegos DO> Cosigner Signature (if applicable): CC: Dr. Liliam Alaniz MD ~ Signed [facility] Work Phone: 1(355) 458-378806-14-2023 Instructions* Patient Instructions* Swetha Gupta - 12/14/2022 [...] please call the office. documented in this encounterOhiohealth Doctors Hospital06-14-2023 History of Present illness Narrative* Tuyet Golden, - 12/14/2022 1:30 PM EDT S: Winston [...] A/P: Symptomatic varicose veins documented in this encounterOhiohealth Doctors Hospital06-12-2023 Miscellaneous Notes* Telephone Encounter - Jessica Benoit LPN - 12/12/2022 4:40 PM EDT Last office visit: 09/06/22 Next appointment scheduled: 12/23/22 Patient phones requesting refills as follows: Requested Prescriptions Pending Prescriptions Disp Refills sertraline (ZOLOFT) 25 mg tablet 90 tablet 1 Sig: Take 1 tablet by mouth once daily. Jessica Benoit LPN documented in this encounterOhiohealth Doctors Hospital05-15-2023 Miscellaneous Notes* Telephone Encounter - Liliam Alaniz MD - 11/14/2022 1:08 PM EDT RX written so may give 6 month RX at December follow up appointment to last till the [...] you. Lyssa Ortiz LPN documented in this encounterOhiohealth Doctors Hospital05-12-2023 History of Present illness Narrative* Tuyet Golden DO - 11/11/2022 12:06 PM EDT Images from the original note were not included. [facility] V[facility] DEPARTMENT OF VASCULAR SURGERY OUTPATIENT VISIT DATE [...] 2022 TIME: 2:31 PM documented in this encounterOhiohealth Doctors Hospital05-12-2023 Instructions* Patient Instructions* Swetha Gupta - [...] please call the office. documented in this encounterOhiohealth Doctors Hospital03-23-2023 Miscellaneous Notes* Telephone Encounter - Janessa [...] call back. Please advise documented in this encounterOhiohealth Doctors Hospital03-23-2023 Miscellaneous Notes* Telephone Encounter - Swetha Gupta - 09/22/2022 10:12 AM EDT Temptstert message sent to the patient documented in this encounterOhiohealth Doctors Hospital03-07-2023 Instructions* Patient Instructions* Liliam Alaniz MD - 09/06/2022 11:33 AM EST r Surgeon--Dr. Tuyet Golden documented in this encounterOhiohealth Doctors Hospital03-07-2023 History of Present illness Narrative* Liliam Alaniz MD - 09/06/2022 11:08 AM EST This note was created using [employer]. Subjective Winston Ohara is a 72 year [...] the date of the service which included vnjh-so-qfuk patient care, completing clinical documentation, obtaining and/or reviewing separately obtained history, performing a medically appropriate examination, and ordering medications, tests, or procedures. Liliam Alaniz MD documented in this encounterOhiohealth Doctors Hospital03-02-2023 Miscellaneous Notes* Telephone Encounter - Kelin [...] taking thyroid medication? Patient phone number is [phone]. Please advise documented in this encounterOhiohealth Doctors Hospital02-20-2023 Miscellaneous Notes* Telephone Encounter - Jessica Benoit LPN - 08/22/2022 3:07 PM EST Being addressed in another My Chart encounter dated 08/18/22. documented in this encounterOhiohealth Doctors Hospital01-26-2023 History of Present illness Narrative* Bita Gagnon RT(R) - 07/28/2022 1:30 PM EST Radiology [...] 28, 2022 1:31 PM documented in this encounterOhiohealth Doctors Hospital01-06-2023 Miscellaneous Notes* Telephone Encounter - Barbra [...] states that provider can send response through LayerVault. Please review and advise, Terri Henley RN documented in this encounterOhiohealth Doctors Hospital12-24-2022 History of Present illness Narrative* Liliam Alaniz MD - 06/25/2022 12:30 PM EST Telemedicine Evaluation for COVID-19 Infection Audio only was used for evaluation of this patient. Location of patient: [facility] Winston Ohara is a 72 year [...] (Xarelto) and that molnupiravir is available at [facility] retail pharmacy ( needed to get from there due to his renal function). Closed today--not sure if will be open t omorrow or Monday, but has until Monday to start med wit be within 5 days of onset of illness. This patient encounter involved the screening or treatment of novel coronavirus infection (COVID-19). Molnupiravir Eligibility and Patient Discussion [facility] Formulary Restriction Criteria: Adult outpatients 18 years [...] medications, tests, or procedures. documented in this encounterOhiohealth Doctors Hospital12-24-2022 Instructions* Patient Instructions* Liliam Alaniz MD - 06/25/2022 12:30 PM EST Resources for Managing Anxiety During COVID Crisis https://www.virusWallStrip.DP7 Digital https://www.cdc.gov/coronavirus/2019-ncov/prepare/kgzsmokk-taextg-cwxbmmr.html https://coronavirus.[place].gov/wps/portal/gov/covid-19/home/resources/resources-fo p-kuxcqe-roznpi-yqol-dpy-bghpm-19-pandemic www.Lost My Name/us/blog/pnn-rwdby-iprgleuoqabm//hca-ucivvp-tpcdktt irus-anxiety https://www.Lost My Name/us/blog/uqf-czoqn-xaqbylw//33-vand-augzpdq ru-aymw-bcwmxabhfi-now https://www.Lost My Name/us/blog/experimentations//4-waqjhvirwwj-jk tuknattkp-dwlmbgskya-rdfqyzxei How to Protect Yourself & Others from COVID-19 Wash your hands often Wash your hands often with soap and water for at least 20 seconds especially after you have been lea public place, or after blowing your nose, coughing, or sneezing. If soap and water are not readily available, use a hand pit recorder that contains at least 60% alcohol. Cover [...] large groups of people (sporting events, concerts, [place] marrufo, etc). Avoid unnecessary domestic and international travel, including travel through large international airports. If traveling, wipe down your airplane seat (and tray) with a disinfecting wipe. Office Visits If you have a fever, cough or shortness of breath, or are otherwise concerned you have COVID-19, weask that you do not come to any [facility] facility without calling your primary care physician or speaking to a provider using a virtual visit using [facility]. You will be evaluated to determine if you require being seen in person or if you meet CDC guidelines for testing for COVID-19 based on symptoms, travel and exposures. If you meet criteria for testing, your [employer] provider or primary care physician will [...] at least 30 days of prescription medications, woat-aeq-gnwwfdy medicines, and supplies on hand in case [...] youwant to harm yourself or others: Call 481 if you feel like you want to harm yourself or others Visit the Disaster Distress Helpline call , [place] [address] Visit the National Domestic Violence Hotline or call and TTY Visit the National Suicide Prevention Lifeline or call and TTY or text Most importantly, don't panic. By following basic prevention measures such as hand hygiene and cover your cough, you are helping to keep yourself and others healthy. Additional information can be found on the CDC and [facility] web sites: https://www.cdc.gov/coronavirus/2019-nCoV/index.html https://[facility].org/coronavirus Beginning Home Isolation Isolation is used [...] to your local emergency facility: Notify the rotary drill rig operator that you are seeking care for [...] healthcare provider to share your information with [employer] & DoAliveCor,then your healthcare provider will report your use of molnupiravir during to [employer]WebPesados. by calling or Pregnancyreporting.Tagora. For individuals who are sexually active with [...] molnupiravir for the treatment of adults with ezin-pt-hpqymlew coronavirus disease 2019 (COVID-19) with positive results [...] virus. COVID-19 illnesses have ranged from very dulz-yz-unemvb, including illness resulting in . While information [...] is an investigational medicine used to treat nxxs-oa-giapxkgs COVID-19 in adults: with positive results of [...] serious illnesses Are taking any medicines (prescription, ijka-nqw-rtyahsj, vitamins, or herbal products). How do I [...] to treat people with COVID-19. Go to https://www.fda.gov/cgdaimcqd-ovrgdlkieyzy-oel-response/pjw-heihbzvlzjquqka-zpf- policy-framework/dtnwgshhu-jvg-dawlyvoezdiye for more information. It is your choice [...] to FDA MedWatch at www.fda.gov/medwatch or call 5-735-KEM-9550 ( ). How should I store molnupiravir? Store molnupiravir capsules at room temperature between 68 F to 77 F (20 C to 25 C). Keep molnupiravir and all medicines out of the reach of children and pets. How can I learn more about COVID-19? Ask your healthcare provider. Visit www.cdc.gov/COVID19 Contact your local or state public health department. Call [employer]aCome at (toll free in the [place] Visit www.[place] What Is an Emergency Use Authorization (EUA)? The [place] FDA has made molnupiravir available under an emergency access mechanism called an Emergency Use Authorization (EUA) The EUA is supported by a Manager Distribution of Health and Human Service (HHS) declaration that circumstances exist to justify emergency use of drugs and biological products during the COVID-19 pandemic. Molnupiravir for the treatment of atzr-uc-wqkuqztu COVID-19 in adults with positive results of [...] used under the EUA). For patent information: www.Open Utility.com/research/patent Copyright 2020 [employer]ck & [employer] [place], [place] and its affiliates. All rights reserved. [id number] Issued: 06/24/2021 documented in this encounterOhiohealth Doctors Hospital12-21-2022 History of Present illness Narrative* Liliam Alaniz MD - 06/22/2022 1:11 PM EST This note was created using [facility]. Subjective Winston Ohara is a 72 year [...] 3.1 The 10-year ASCVD risk score (Dinorah LUCAS, et al., 2019) is: 14.4% Values used [...] for screening mammogram for breast cancer Z12.31 [facility] SCREENING Patient here for yearly exam [...] management. Liliam Alaniz MD documented in this encounterOhiohealth Doctors Hospital11-17-2022 Miscellaneous Notes* Telephone Encounter - Liliam [...] ALANIZ MD * Telephone Encounter - Sylvia Jennifer Keith LPN - 05/19/2022 8:29 AM EST [...] you. Sylvia Keith LPN documented in this encounterOhiohealth Doctors Hospital09-13-2022 History of Present illness Narrative* RT [...] 15, 2022 10:58 AM documented in this encounterOhiohealth Doctors Hospital08-23-2022 History of Present illness Narrative* Liliam Alaniz MD - 02/22/2022 11:33 AM EDT This note was created using [employer]. Subjective Winston Ohara is a 71 year old female. Patient presents with: Follow Up: Thyroid SUBJECTIVE:lady Winston Ohara is a 71 year old year old lady here today for follow up appointment for review of medical conditions. Back in December had hot feeling and shortness of breath. Scribner unusually hot. Scribner flushing sensation over upper chest to shoulders [...] PANEL Liliam Alaniz MD documented in this encounterOhiohealth Doctors Hospital08-08-2022 Instructions* Patient Instructions* Katey Stanton APRN.CNS - 02/07/2022 8:42 AM EDT Let us know if any problems be fore your next visit. Check thyroid labs in June before your visit documented in this encounterOhiohealth Doctors Hospital08-08-2022 History of Present illness Narrative* Katey Stanton APRN.CNS - 02/07/2022 8:20 AM EDT SUBJECTIVE: There are no preventive care reminders to display for this patient. HPI Winston Ohara is a 71 year old [...] OSH records reviewed. She was seen at [facility] emergency department on January 27, 2022 for shortness of breath, intermittent hot flashes and flushing. She went to the emergency department to check for cardiac source of symptoms. Her heart rhythm was noted to be normal sinus rhythm. Impression was low concern for pulmonary embolus. Chest x-ray with no concerning findings. Labs show elevated TSH otherwise in acceptable range. Subsequently seen at [facility] 01/31/2022. Noted to have atrial fibrillation with [...] Level: 4 - Moderate documented in this encounterOhiohealth Doctors Hospital08-01-2022 Miscellaneous Notes* Telephone Encounter - Kelin [...] 01/31/2022 3:57 PM EDT Report printed from Health Informatics and at nurse desk for review * Telephone Encounter - Katey Stanton APRN.CNS - 01/31/2022 3:41 PM EDT Obtain ER records please so can address the question posed * Telephone Encounter - Sylvia Keith LPN - 01/31/2022 3:11 PM EDT Pt called and states she was to [facility] ER on 01-26-22 with flushing in the chest and short of breath. Pt states she just saw her flower grader and he told her the lab work showed elevated thyroid at 6.39.Pt states she feel warm and tired also. Pt asking if there is something she should be doing regarding her thyroid. Pt scheduled for a ER follow up visit 02/07/22. Please advise pt. Sylvia Keith LPN documented in this encounterOhiohealth Doctors Hospital05-09-2022 Miscellaneous Notes* Telephone Encounter - Jake [...] but my opinion is if you are [facility] and physiologically given at 72 colonoscopy for screening purposes is reasonable. documented in this encounterOhiohealth Doctors Hospital05-09-2022 Miscellaneous Notes* Telephone Encounter - Mariama Abernathy LPN - 11/08/2021 4:50 PM EDT This encounter was opened in error. @CCPLOCNSCANCEL@ documented in this encounterOhiohealth Doctors Hospital05-03-2022 Nurse Note* Aurea Gonzalez RN - 11/02/2021 9:47 AM EDT VITALS:Blood pressure 142/68 & pulse 79, from last office visit to compare for preanesthesia values before today. * Aurea Gonzalez RN - 11/02/2021 9:25 AM EDT Abdomen soft non-distended. Will continue to monitor. documented in this encounterOhiohealth Doctors Hospital05-03-2022 History and physical note * Jake [...] SIGNATURE: Jake Boyle MD PATIENT NAME: Winston Ohaar DATE: November 02, 2021 TIME: 8:52 AM [...] entered by the nurse and reviewed by ok Nursing Notes: Mariama Abernathy LPN 08/19/2021 12:10 [...] completed. Jake Boyle MD documented in this encounterOhiohealth Doctors Hospital02-17-2022 Miscellaneous Notes* Telephone Encounter - Jaqui Mahendra - 08/19/2021 1:54 PM EST 11/02/[address] Boyle with Miralax/dulcolax prep at the [facility] Left side Stereotatic breast bx with Dr Penn 09-03-2021 arrival time 1230 documented in this encounterOhiohealth Doctors Hospital04-01-2018 Evaluation note* Diagnosis Onset Date Resolution Status Essential (primary) hypertension chronic Paroxysmal atrial fibrillation October, chronic Mammographic microcalcification acute [facility] Work Phone: 1(921) 876-928304-01-2018 Evaluation note* Diagnosis Onset Date Resolution Status Sinus bradycardia acute Essential (primary) hypertension chronic Paroxysmal atrial fibrillation October, [facility] Work Phone: 1(626) 277-442404-01-2018 Evaluation note* Diagnosis Onset Date Resolution Status Admit Date Paroxysmal atrial flutter October, chronic January 10, 2025 9:23am Paroxysmal atrial flutter October,January 13, 2025 10:24am Paroxysmal atrial fibrillation October, [employer] January 31, 2025 1:33pm Paroxysmal atrial flutter October, [facility] January 31, 2025 1:33pm [facility] Work Phone: [phone] Evaluation note* Diagnosis Onset Date Resolution Status Admit Date Paroxysmal atrial flutter October, chronic January 10, 2025 9:23am Paroxysmal atrial flutter October, chronic January 13, 2025 10:24am Paroxysmal atrial fibrillation October, outf[employer]y January 31, 2025 1:33pm Paroxysmal atrial flutter October, chronic January 31, 2025 1:33pm Atrial flutter with rapid ventricular response acute February 07, 2025 4:47pm [facility] Work Phone: 1(538) 457-341204-01-2018 Evaluation note* Diagnosis Onset Date Resolution Status Admit Date Paroxysmal atrial flutter October,January 10, 2025 9:23am Paroxysmal atrial flutter October,January 13, 2025 10:24am Paroxysmal atrial fibrillation October, chronic January 31, 2025 1:33pm Paroxysmal atrial flutter October, chronic January 31, 2025 1:33pm Atrial flutter with rapid ventricular response acute February 07, 2025 4:47pm Elevated brain natriuretic peptide (BNP) level acute February 07, 2025 4:47pm History of cardioversion November 11, 2020 acute February 07, 2025 4:47pm Shortness of breath acute 2024 4:47pm Essential (primary) hypertension chronic February 07, 2025 4:47pm Paroxysmal atrial fibrillation October, chronic February 07, 2025 4:47pm Single kidney chronic February 07, 2025 4:47pm [facility] Work Phone: 1(513) 543-544204-01-2018 Evaluation note* Diagnosis Onset Date Resolution Status Admit Date Paroxysmal atrial flutter October, chronic January 10, 2025 9:23am Paroxysmal atrial flutter October, chronic January 13, 2025 10:24am Paroxysmal atrial flutter October, chronic January 31, 2025 1:33pm Paroxysmal atrial fibrillation October, inactive January 31, 2025 1:33pm Atrial flutter with rapid ventricular response inactive February 07, 2025 4:47pm Elevated brain natriuretic peptide (BNP) level inactive February 07, 2025 4:47pm Essential (primary) hypertension inactive February 07, 2025 4:47pm History of cardioversion November 11, 2020 inactiv e February 07, 2025 4:47pm Paroxysmal atrial fibrillation October, inactive February 07, 2025 4:47pm Shortness of breath inactive 2024 4:47pm Single kidney inactive February 07, 2025 4:47pm Decreased left ventricular systolic function acute February 26, 2 025 12:59pm Sinus bradycardia acute February 26, 2025 12:59pm Paroxysmal atrial flutter October, chronic February 26, 2025 12:59pm [place] [employer] [facility] Work Phone: 1(976) 559-836204-01-2018 Evaluation note* Diagnosis Onset Date Resolution Status Admit Date Paroxysmal atrial flutter October, chronic January 10, 2025 9:23am Paroxysmal atrial flutter October, chronic January 13, 2025 10:24am Paroxysmal atrial flutter October, chronic January 31, 2025 1:33pm Paroxysmal atrial fibrillation October, inactive January 31, 2025 1:33pm Atrial flutter with rapid ventricular response acute February 07, 2025 4:47pm Elevated brain natriuretic peptide (BNP) level inactive February 07, 2025 4:47pm Essential (primary) hypertension inactive February 07, 2025 4:47pm History of cardioversion November 11, 2020 inactiv e February 07, 2025 4:47pm Paroxysmal atrial fibrillation October, inactive February 07, 2025 4:47pm Shortness of breath inactive 2024 4:47pm Single kidney inactive February 07, 2025 4:47pm Decreased left ventricular systolic function acute February 26, 2 025 12:59pm Sinus bradycardia acute February 26, 2025 12:59pm Paroxysmal atrial flutter October, chronic February 26, 2025 12:59pm Abnormal cardiovascular stress test acute April 08 1:01pm Atrial flutter with rapid ventricular response acute April 1:01pm Decreased left ventricular systolic function acute April 08 2 025 1:01pm Sinus bradycardia acute April 08, 2025 1:01pm Paroxysmal atrial flutter October, chronic April 08, 2025 1:01pm [place] [facility] [facility] Work Phone: 1(394) 613-350710-25-2010 History of Past illness Narrative* Problem Noted [...] of this encounter (statuses as of 11/03/2021) [facility] History of Past illness Narrative* Problem [...] of this encounter (statuses as of 11/08/2021) [facility] History of Past illness Narrative* Problem [...] of this encounter (statuses as of 12/28/2021) [facility] History of Past illness Narrative* Problem [...] of this encounter (statuses as of 12/29/2021) [facility] History of Past illness Narrative* Problem [...] of this encounter (statuses as of 02/02/2022) [facility] History of Past illness Narrative* Problem [...] of this encounter (statuses as of 02/07/2022) [facility] History of Past illness Narrative* Problem [...] of this encounter (statuses as of 03/16/2022) [facility] History of Past illness Narrative* Problem [...] of this encounter (statuses as of 04/24/2022) [facility] History of Past illness Narrative* Problem [...] of this encounter (statuses as of 05/19/2022) [facility] History of Past illness Narrative* Problem [...] of this encounter (statuses as of 06/27/2022) [facility] History of Past illness Narrative* Problem [...] of this encounter (statuses as of 07/09/2022) [facility] History of Past illness Narrative* Problem [...] of this encounter (statuses as of 07/25/2022) [facility] History of Past illness Narrative* Problem [...] of this encounter (statuses as of 08/22/2022) [facility] History of Past illness Narrative* Problem [...] of this encounter (statuses as of 09/01/2022) [facility] History of Past illness Narrative* Problem [...] of this encounter (statuses as of 09/07/2022) [facility] History of Past illness Narrative* Problem [...] of this encounter (statuses as of 09/22/2022) [facility] History of Past illness Narrative* Problem [...] of this encounter (statuses as of 09/22/2022) [facility] History of Past illness Narrative* Problem [...] of this encounter (statuses as of 11/11/2022) [facility] History of Past illness Narrative* Problem [...] of this encounter (statuses as of 11/15/2022) [facility] History of Past illness Narrative* Problem [...] of this encounter (statuses as of 12/13/2022) [facility] History of Past illness Narrative* Problem [...] of this encounter (statuses as of 12/21/2022) [facility] History of Past illness Narrative* Problem [...] of this encounter (statuses as of 12/22/2022) [facility] History of Past illness Narrative* Problem [...] of this encounter (statuses as of 05/07/2023) [facility] History of Past illness Narrative* Problem [...] of this encounter (statuses as of 08/31/2023) [facility] Roxana Valerio [facility] Note Date/Time February 10, 2025 4: 08pm [facility] Medical Records Department [address] [place] [address] Instructions for Home/Discharge Instructions 02/10/25 1500 MR#: [id number] Acct: [id number] Name: WINSTON OHARA Rep #:[id number] : 1950 74 From: Roxana Valerio MD PCP: Dr. Liliam Alaniz MD Status:AD M IN Discharge Instructions DC O2, CPAP, BIPAP needs Home O2 Discharge instructions: No Dressing / Incision Discharge Activity: Return to Normal Activity Weight Bearing Status: Weight bearing as tolerated Dressing / Incision Call your doctor if you observe: Fever of 101 or Higher, Shortness of breath, Dizziness, Swelling in the ankles and Chest pain Follow Up Care Test Results: Test results from this visit will be discussed in further detail at your follow- up appointment, if applicable. Discharge Plan Admission Admit Date/Time: 02/07/25 16:47 Primary Reason for Your Visit: afib with RVR Attending Provider: Roxana Valerio Primary Care Provider: Liliam Alaniz Consulting Providers: Enrico Rendon; George Nichole Instructions Patient Instructions: AFib Dc, Cardioversion Dc Discharge Orders/Prescriptions Prescriptions: New metoprolol tartrate 50 mg tablet 50 mg PO BID Qty: 60 2RF amiodarone 200 mg tablet 200 mg PO DAILY Qty: 30 2RF Continued Pepto-Bismol 262 mg tablet 2 tablet PO Q30-60M PRN (Reason: Diarrhea) Rx Instructions: do not exceed 16 tabs per 24 hrs acetaminophen 500 mg tablet 1,000 mg PO Q8 PRN (Reason: pain) Rx Instructions: Do not take more than 3000 mg Tylenol in a 24-hour period. rivaroxaban 20 mg tablet 20 mg PO DAILY Qty: 90 3RF Patient Comments: LAST DOSE 01/28/21 zolpidem 5 mg tablet 5 mg PO QHS fluticasone propionate 9.9 ML spray,suspension 15.8 ml NS DAILY PRN (Reason: ALLERGIES) cholecalciferol (vitamin D3) [Vitamin D3] 25 mcg (1,000 unit) Tablet 50 mcg PO DAILY sertraline 25 mg tablet 25 mg PO DAILY Patient Comments: take 1 tablet by mouth once daily furosemide 40 mg tablet 40 mg PO DAILY PRN (Reason: edema) Qty: 30 11RF Discontinued metoprolol succinate 50 mg tablet extended release 24 hr 50 mg PO QDAY Qty: 90 3RF sotalol 80 mg tablet 80 mg PO BID Qty: 180 3RF Referrals / Follow Up: Sterling Thapa MD [Med Staff - Active Staff] - Within 2 Weeks Liliam Alaniz MD [Primary Care Provider] - Within 1 Week Disposition Disposition (needs filled in before D/C Order can be placed): Home, Self Care 02/10/25 1500<Electronically signed by Roxana Valerio MD>Roxana Valerio MD CC: Dr. George Nichole DO; Dr. Enrico Rendon MD; Dr. Liliam Alaniz MD ~ Signed [facility] Work Phone: Evaluation note* Diagnosis Personal history of colonic polyps [facility] Diagnosis OPENED IN ERROR- Primary To allow closing an encounter opened in error (used in SmartSet) documented [facility] noteNo assessment information availableWAdena [facility] Work Phone: Evaluation note* Diagnosis Thyroid cyst- Primary Cyst of thyroid Elevated TSH Nonspecific abnormal results of thyroid function study [facility]* Diagnosis Paroxysmal atrial fibrillation (HCC)- Primary Atrial fibrillation Palpitations Elevated TSH Nonspecific abnormal results of thyroid function study documented [facility]* Diagnosis Mammographic microcalcification [facility]* Diagnosis Elevated TSH- Primary Nonspecific abnormal results of thyroid function study Paroxysmal atrial fibrillation (HCC) Atrial fibrillation Hot flashes Symptomatic menopausal or female climacteric states Vitamin D deficiency Unspecified vitamin D deficiency Essential hypertension Unspecified essential hypertension Encounter for long-term current use of medication [facility] Diagnosis Psychophysiological insomnia Persistent disorder of initiating or maintaining sleep [facility]* Diagnosis COVID-19 virus infection- Primary [facility]* Diagnosis Psychophysiological insomnia- Primary Persistent disorder of initiating or maintaining sleep Essential hypertension Unspecified essential hypertension Elevated TSH Nonspecific abnormal results of thyroid function study Paroxysmal atrial fibrillation (HCC) Atrial fibrillation Vitamin D deficiency Unspecified vitamin D deficiency Generalized anxiety disorder Encounter for long-term current use of medication Encounter for screening mammogram for breast cancer [facility]* Diagnosis Elevated TSH- Primary Nonspecific abnormal results of thyroid function study Essential hypertension Unspecified essential hypertension Paroxysmal atrial fibrillation (HCC) Atrial fibrillation [facility]* Diagnosis 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 [facility] Diagnosis Psychophysiological insomnia Persistent disorder of initiating or maintaining sleep [facility] Diagnosis 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 [facility]* Diagnosis Encounter for screening mammogram for breast cancer [facility]* Diagnosis Encounter for therapeutic drug monitoring- Primary Vitamin D deficiency Unspecified vitamin D deficiency Dyslipidemia Other and unspecified hyperlipidemia [facility]* Diagnosis Essential hypertension- Primary Unspecified essential hypertension Ankle edema, bilateral Psychophysiological insomnia Persistent disorder of initiating or maintaining sleep Vitamin D deficiency Unspecified vitamin D deficiency Encounter for immunization Need for other specified prophylactic vaccination against single bacterial disease Encounter for long-term current use of medication [facility] Diagnosis Psychophysiological insomnia Persistent disorder of initiating or maintaining sleep [facility]* Diagnosis Medicare annual wellness visit, subsequent- [...] for breast cancer [facility]* Diagnosis COVID- Primary [facility]* Diagnosis Encounter for screening mammogram for breast cancer [facility] Diagnosis Psychophysiological insomnia Persistent disorder of initiating or maintaining sleep [facility] Diagnosis Psychophysiological insomnia- Primary Persistent disorder of initiating or maintaining sleep Paroxysmal atrial fibrillation (HCC) Atrial fibrillation Hypercholesterolemia Pure hypercholesterolemia Chronic pain of right knee Primary osteoarthritis of right knee Primary localized osteoarthrosis, lower leg Essential hypertension Unspecified essential hypertension Vitamin D deficiency Unspecified vitamin D deficiency [facility]* Diagnosis Cellulitis of other specified site- Primary [facility]* Diagnosis Paroxysmal atrial fibrillation (HCC)- Primary Atrial fibrillation Essential hypertension Unspecified essential hypertension Swelling of both ankles Swelling of limb IV site infection, sequela documented in this [facility] Author George Nichole [facility] Note Date/Time February 07, 2025 5:1 9pm [facility] Medical Records Department [address] [place] [address] H&P Exam - Hospitalist 02/07/25 1712 MR#: [id number] Acct: [id number] Name: IWNSTON OHARA Rep #:[id number] : 1950 74 From: George Nichole DO PCP: Dr. Liliam Alaniz MD Status:AD M IN Location: [facility] [id number]- 1 HPI - General General Date of Admission: 02/07/25 Date of Service: 02/07/25 Chief Complaint: Dizziness HPI Narrative WINSTON OHARA, is a 74 F who presents with dizziness. She was at her cardiologyoffice today and was noted to have a heart rate of 133. Patient was started to go to the emergency room. In the emergency room, patient has a history of A-fibbut was actually noted to be in atrial flutter. Patient received a total of 40 mg IV diltiazem bolus and then was placed on a diltiazem drip. Since initiationof the diltiazem drip it has not been infusing and her heart rate still been in the 120s to 130s. Patient's IV is currently small gauge IV in her lateral left wrist. Patient is experiencing some chest tightness and palpitations. This is consistent with her history of atrial fib with RVR. Patient was not tolerating sotalol 120 twice daily and so that was decreased to 80 twice daily and then wasadded on metoprolol succinate 50 daily. Patient underwent a cardioversion (her fourth) on January 13 and was in sinus rhythm but she stated that that lasted only for about 5 days before she was back into her A-fib. She states at home that her heart rate is typically in the 90s. [facility] Medical History Dyspnea Wears glasses Post-menopausal Arthritis History of diverticulitis Former smoker History of pain when walking History of edema Normal stress echocardiogram Hx of thyroid cyst Persistent atrial fibrillation (11/02/20) Paroxysmal atrial flutter (10/2017) Paroxysmal atrial fibrillation (10/2017) Essential (primary) hypertension Single kidney Insomnia Anxiety Atrial fibrillation with RVR Home Medications ?Medication ?Instructions ?Recorded ?Last Taken ?Type fluticasone propionate 50 15.8 ml NS DAILY PRN ALLERGI ES 10/19/17 02/02/21 History mcg/actuation nasal spray,suspension bismuth subsalicylate 262 mg 2 tablet PO Q30-60M PRN D iarrhea 10/08/20 02/02/21 History tablet (Pepto-Bismol) cholecalciferol (vitamin D3) 25 50 mcg PO DAILY Supple ment 01/20/21 02/05/21 17:00 History mcg (1,000 unit) tablet (Vitamin D3) sertraline 25 mg tablet 25 mg PO DAILY anxiety 08/0901/13/25 History acetaminophen 500 mg tablet 1,000 mg PO Q8 PRN pain Unknown History zolpidem 5 mg tablet 5 mg PO QHS Sleep 09/26/23 U nknown History furosemide 40 mg tablet 40 mg PO DAILY PRN edema #30 tabs 12/04/23 Unknown Rx rivaroxaban 20 mg tablet 20 mg PO DAILY afib #90 tabs 10/04/24 01/13/25 Rx metoprolol succinate 50 mg 50 mg PO QDAY afib #90 tabs 01/31/25 Unknown Rx tablet,extended release 24 hr sotalol 80 mg tablet 80 mg PO BID #180 tabs 01/31 Unknown Rx Allergy/AdvReac Type Severity Reaction Status Date / Time flecainide Allergy Left Verified 01/10/25 09:27 Bundle Branch Block/BUE tingling/leg weakness aspirin (ASA) AdvReac ONLY HAS Verified 01/10/25 09:27 ONE KIDNEY, TOLD TO AVOID cortisone AdvReac CHEST HOT Verified 01/10/25 09:27 & WEIRD NSAIDS (Non-Steroidal AdvReac ONLY HAS Verified 01/10/25 09:27 Anti-Inflamma ONE KIDNEY, TOLD TO AVOID Family [...] participate in: walking frequency: daily ROS ROS Narrative All review of systems were negative except as mentioned above in the history of present illness and the other review of systems. Vital Signs Vital Signs Vital Signs: 02/07/25 14:13 02/07/25 14:14 02/07/25 14:17 Temperature 36.5 C L Temperature Source Oral Pulse Rate 133 H 140 H Respiratory Rate 15 Respiratory Effort Short of Breath Blood Pressure 140/103 H Blood Pressure Mean 115 Pulse Ox 99 Oxygen Delivery Method Room Air 02/07/25 14:38 02/07/25 15:13 02/07/25 16:00 Temperature Temperature Source Pulse Rate 138 H 93 Respiratory Rate 13 15 Respiratory Effort Blood Pressure 128/110 H 114/81 H Blood Pressure Mean 116 92 Pulse Ox 95 95 95 Oxygen Delivery Method Room Air Room Air Room Air 02/07/25 16:54 02/07/25 17:00 02/07/25 17:02 Temperature 36.5 C L Temperature Source Pulse Rate 114 H 107 H 107 H Respiratory Rate 11 L 21 H 21 H Respiratory Effort Blood Pressure 95/68 95/68 95/68 Blood Pressure Mean 77 77 77 Pulse Ox 94 96 96 Oxygen Delivery Method Room Air Weight Weight: 72.8 kg Body Mass Index (BMI) 27.5 Physical Exam Narrative - Physical Exam General: Alert, Oriented x3, Cooperative. Sitting up in bed. Nontoxic no respiratory distress. On room air. HEENT: Atraumatic, PERRLA, EOMI, Normocephalic Oral: Moist Mucosa, No Gingival or Mucosal Lesions/ Ulcerations Neck: Supple, No JVD, Negative Carotid Bruits Lungs: Clear to auscultation, Normal air movement Cardiovascular: Irregularly irregular. Abdomen: Bowel Sounds Present, Soft, Non Tender, Non-Distended, No Hepato-splenomegaly Extremities: No clubbing, No cyanosis, No edema, Capillary Refill Less than 3 Seconds Skin: No rashes, No breakdown Musculoskeletal: No Tenderness to Palpation of Joints or Extremities Neurological: Neuro grossly intact Psych/Mental Status: Normal Affect, Appropriate Results Lab / Micro Data Attestation: I reviewed the patient's lab results. 02/07/25 14:13 02/07/25 14:13 Labs: Laboratory Results - last 24 hr 02/07/25 14:13: WBC 7.4, RBC 4.26, Hgb 13.1, Hct 39.4, MCV 92.5, MCH 30.8, MCHC 33.2, RDW Std Deviation 46.4 H, RDW Coeff of Priscilla 14.0, Plt Count 224, MPV 10.8, Immature Gran % (Auto) 0.300, Neut % (Auto) 73.7 H, Lymph % (Auto) 15.7 L, [place] % (Auto) 8.3, Eos % (Auto) 1.5, Baso % (Auto) 0.5, Absolute Neuts (auto) 5.4, Absolute Lymphs (auto) 1.16, Nucleated RBC % 0, Sodium 137, Potassium 3.9, Chloride 101, Carbon Dioxide 23.2, Anion Gap 13, BUN 28 H, Creatinine 1.03, Estim Creat Clear Calc 48.28 L, Est GFR (MDRD) Non-Af 58 L, BUN/Creatinine Ratio 27.6 H, Glucose 147 H, Calcium 9.6, Magnesium 2.2, Troponin T High Sens 12 D, TSH 2.870 02/07/25 16:15: Troponin T Hi Sens 2 Hr 8 EKG Initial EKG: Attestation: I personally reviewed and interpreted this EKG as follows: Prior EKG tracings: available for review (Atrial flutter with RVR) Imaging Radiology Impression Chest X-Ray 02/07/25 14:50 IMPRESSION: No Acute Findings. Reading Location: [id number] Assessment & Plan Assessment/Plan (1) Atrial flutter with rapid ventricular response: PLAN: Breakthrough despite being on sotalol 80 mg twice daily and metoprolol succinate 50 daily. Received total of 40 mg IV of diltiazem and has been placedon diltiazem drip. Currently the diltiazem drip is actually not infusing as it is in a very small gauge IV in her left wrist. Nursing to evaluate. But if it is infusing and patient still having RVR then consideration would be to initiateamiodarone. I have called Dr. Rendon, cardiology but he is not been accessible after 2 attempts. Consult to cardiology will be placed. Continue with rivaroxaban Cannot rule out need for another cardioversion Check echocardiogram. Check troponin series PLAN: Plan Depression: Continue with sertraline VTE prophylaxis: Not indicated as patient is already anticoagulated CODE STATUS: Verified with the patient that she wishes to be full code. Charges/Coding Visit Charges Inpatient E&M: 18376 Init Hosp L3 02/07/25 1719 <Electronically signed by George Nichole DO> Cosigner Signature (if applicable): CC: Dr. George Nichole DO; Dr. Liliam Alaniz MD~ Signed [facility] Work Phone: Hospital Discharge instructions Additional Instructions You cardioverted with synchronized 150 J. EKG back in sinus rhythm rate in the 50s. Continue home medications. Follow-up with Dr. Thapa.[facility] Work Phone: Hospital Discharge instructionsAmbulatory Orders* Electrophysiology Location: None Selected [facility] Work Phone: Reason for referral (narrative)* Outpatient Procedure (Routine) - Closed Specialty Diagnoses / Procedures Referred By Tino simons Referred To Contact [facility] Diagnoses Personal history of colonic polyps Procedures COLONOSCOPY SCREENING COLONOSCOPY FLX DX W/COLLJ SPEC WHEN PFJake Shore MD [address] [facility] [place] [address] [facility] [address] [place] [address] Referral ID Status Reason Start Date Expiration Date V isits Requested Visits Authorized [id number] Closed Auto-Generate d Referral 08/19/2021 08/19/2022 1 1 [facility] for referral (narrative)* Diagnostic Procedure Only (Routine) - Pending Review Specialty Diagnoses / Procedures Referred By Tino simons Referred To Contact [facility] Diagnoses Thyroid cyst Elevated TSH Procedures US THYROID/PARATHYROID US SOFT TISSUE HEAD & NECK REAL TIME IMGE Katey Ruiz, NATALIE.[employer] OPERATOR [address] [place] [address] [facility] Referral ID Status Reason Start Date Expiration Date Visits Requested Visits Authorized [id number] Pending Review Auto-Generat ed Referral 01/31/2022 03/02/2023 1 1 [facility] for referral (narrative)* Diagnostic Procedure Only (Routine) - Closed Specialty Diagnoses / Procedures Referred By Tino t Referred To Contact [facility] Diagnoses Mammographic microcalcification Procedures [facility] DI[facility] DIAGNOSTIC MAMMOGRAPHY COMPUTER-AIDED DETCJ Jf Sierra MD [address] [place] [address] [facility] [address] [place] [address] Referral ID Status Reason Start Date Expiration Date V isits Requested Visits Authorized [id number] Closed Auto-Generate d Referral 10/08/2021 10/27/2022 1 1 [facility] for referral (narrative)* Diagnostic Procedure Only (Routine) - Authorized Specialty Diagnoses / Procedures Referred By Contleif t Referred To Contact [facility] Diagnoses Encounter for screening mammogram for breast cancer Procedures [facility] SCREENING SCREENING MAMMOGRAPHY BI 2-VIEW BREAST INC Liliam Villavicencio MD [address] [place] [address] [facility] [address] [place] [address] Referral ID Status Reason Start Date Expiration Date Visits Requested Visits Authorized [id number] Authorized Auto-Generat ed Referral 07/22/2023 1 1 [facility] for referral (narrative)* Diagnostic Procedure Only (Routine) - Closed Specialty Diagnoses / Procedures Referred By Contac t Referred To Contact [facility] Diagnoses Encounter for screening mammogram for breast cancer Procedures [facility] SCREENING SCREENING MAMMOGRAPHY BI 2-VIEW BREAST INC Liliam Villavicencio MD [address] [place] [address] [facility] [address] [place] [address] Referral ID Status Reason Start Date Expiration Date V isits Requested Visits Authorized [id number] Closed Auto-Generate d Referral 06/22/2022 07/22/2023 1 1 [facility] for referral (narrative)* Diagnostic Procedure Only (Routine) - Authorized Specialty Diagnoses / Procedures Referred By Tino simons Referred To Contact [facility] Diagnoses Encounter for screening mammogram for breast cancer Procedures [facility] SCREENING W BRITTANEY SCREENING DIGITAL BREAST TOMOSYNTHESIS BI SCREENING MAMMOGRAPHY BI 2-VIEW BREAST INC CAD Liliam Alaniz MD [address] [place] [address] [facility] [address] [facility] [address] Referral ID Status Reason Start Date Expiration Date Visits Requested Visits Authorized [id number] Authorized Auto-Generat ed Referral 07/14/2025 1 1 [facility] for referral (narrative)No reason for referral information availableWAdena Pike [facility] Work Phone: Ressm rehab for visit Narrative* Outpatient Procedure (Routine) - Closed Specialty Diagnoses / Procedures Referred By Tino simons Referred To Contact [facility] Diagnoses Personal history of colonic polyps Procedures COLONOSCOPY SCREENING COLONOSCOPY FLX DX W/COLLJ SPEC WHEN Jake Correa MD [address] [place] [address] [facility] [address] [place] [address] Referral ID Status Reason Start Date Expiration Date V isits Requested Visits Authorized [id number] Closed Auto-Generate d Referral 08/19/2021 08/19/2022 1 1 [facility] for visit Narrative* Diagnostic Procedure Only (Routine) - Closed Specialty Diagnoses / Procedures Referred By Tino simons Referred To Contact [facility] Diagnoses Mammographic microcalcification Procedures [facility] DIAGNOSTIC MAMMOGRAPHY COMPUTER-AIDED DETCJ Jf Sierra MD [address] [place] [address] [facility] [address] [place] [id number] Referral ID Status Reason Start Date Expiration Date V isits Requested Visits Authorized [id number] Closed Auto-Generate d Referral 10/08/2021 10/27/2022 1 1 [facility] for visit Narrative* Diagnostic Procedure Only (Routine) - Closed Specialty Diagnoses / Procedures Referred By Tino t Referred To Contact [facility] Diagnoses Encounter for screening mammogram for breast cancer Procedures LOUIS SCREENING SCREENING MAMMOGRAPHY BI 2-VIEW BREAST INC Liliam Villavicencio MD [address] [place] [address] [facility] [address] [place] [address] Referral ID Status Reason Start Date Expiration Date V isits Requested Visits Authorized [id number] Closed Auto-Generate d Referral 06/22/2022 07/22/2023 1 1 [facility] for visit Narrative* Diagnostic Procedure Only (Routine) - Closed Specialty Diagnoses / Procedures Referred By Tino simons Referred To Contact [facility] Diagnoses Encounter for screening mammogram for breast cancer Procedures LOUIS SCREENING W BRITTANEY SCREENING DIGITAL BREAST TOMOSYNTHESIS BI SCREENING MAMMOGRAPHY BI 2-VIEW BREAST INC Liliam Villavicencio MD [address] [place] [address] Phone: tel: fax: [facility] [address] [place] [address] Referral ID Status Reason Start Date Expiration Date V isits Requested Visits Authorized [id number] Closed Auto-Generate d Referral 06/14/2024 07/14/2025 1 1 [facility] Chief Complaint and Reason for Visit [...] Atrial fibrillation January 13, 2025 1:12 pm CONFERENCE CONCIERGE TO SEE/PER SP January 15, 2025 10:0 9am Chief Complaint Admit Date 6 M FU October 04, 2024 1:39 pm a fib, see clinical notes January 10 9:23am AFIB January 13, 2025 10:2 4am Atrial fibrillation January 13, 2025 12:1 2pm Atrial fibrillation January 13, 2025 1:12 pm CONFERENCE CONCIERGE TO SEE/PER SP January 15, 2025 10:0 9am 1 WK DCCV January 20, 2025 1:06 pm Chief Complaint Admit Date 6 M FU October 04, 2024 1:39 pm a fib, see clinical notes January 10 9:23am AFIB January 13, 2025 10:2 4am Atrial fibrillation January 13, 2025 12:1 2pm Atrial fibrillation January 13, 2025 1:12 pm CONFERENCE CONCIERGE TO SEE/PER SP January 15, 2025 10:0 9am 1 WK DCCV January 20, 2025 1:06 pm Blood pressure check January 31, 2025 1: 33pm Chief Complaint Admit Date a fib, see clinical notes January 10 9:23am AFIB January 13, 2025 10:2 4am Atrial fibrillation January 13, 2025 12:1 2pm Atrial fibrillation January 13, 2025 1:12 pm CONFERENCE CONCIERGE TO SEE/PER SP January 15, 2025 10:0 9am 1 WK DCCV January 20, 2025 1:06 pm Blood pressure check January 31, 2025 1: 33pm EKG February 07, 2025 1:3 9pm Reason for Visit Admit Date Paroxysmal atrial flutter January 10 9:23am Paroxysmal atrial flutter January 13 10:24am Paroxysmal atrial fibrillation January 1:33pm Paroxysmal atrial flutter January 31 1:33pm Chief Complaint Admit Date a fib, see clinical notes January 10 9:23am AFIB January 13, 2025 10:2 4am Atrial fibrillation January 13, 2025 12:1 2pm Atrial fibrillation January 13, 2025 1:12 pm CONFERENCE CONCIERGE TO SEE/PER SP January 15, 2025 10:0 9am 1 WK DCCV January 20, 2025 1:06 pm Blood pressure check January 31, 2025 1: 33pm EKG February 07, 2025 1:3 9pm AFIB February 07, 2025 4:4 7pm Atrial fibrillation February 07, 2025 5:1 2pm Reason for Visit Admit Date Paroxysmal atrial flutter January 10 9:23am Paroxysmal atrial flutter January 13 10:24am Paroxysmal atrial fibrillation January 1:33pm Paroxysmal atrial flutter January 31 1:33pm Atrial flutter with rapid ventricular re sponse February 07, 2025 4:47pm Chief Complaint Admit Date a fib, see clinical notes January 10 9:23am AFIB January 13, 2025 10:2 4am Atrial fibrillation January 13, 2025 12:1 2pm Atrial fibrillation January 13, 2025 1:12 pm CONFERENCE CONCIERGE TO SEE/PER SP January 15, 2025 10:0 9am 1 WK DCCV January 20, 2025 1:06 pm Blood pressure check January 31, 2025 1: 33pm EKG February 07, 2025 1:3 9pm AFIB February 07, 2025 4:4 7pm Atrial fibrillation February 07, 2025 5:1 2pm Atrial fibrillation February 07, 2025 6:5 4pm Atrial fibrillation February 08, 2025 12: 19pm Atrial fibrillation February 09, 2025 10 :42am Atrial fibrillation February 09, 2025 12 :30pm Atrial fibrillation February 10, 2025 10 :30am Atrial fibrillation February 10, 2025 11 :03am Reason for Visit Admit Date Paroxysmal atrial flutter January 10 9:23am Paroxysmal atrial flutter January 13 10:24am Paroxysmal atrial fibrillation January 1:33pm Paroxysmal atrial flutter January 31 1:33pm Atrial flutter with rapid ventricular re sponse February 07, 2025 4:47pm Elevated brain natriuretic peptide (BNP) level February 07, 2025 4:47pm History of cardioversion February 07 4:47pm Shortness of breath February 07, 2025 4:4 7pm Essential (primary) hypertension February 07, 2025 4:47pm Paroxysmal atrial fibrillation January 4:47pm Single kidney February 07, 2025 4:4 7pm Chief Complaint Admit Date a fib, see clinical notes January 10 9:23am AFIB January 13, 2025 10:2 4am Atrial fibrillation January 13, 2025 12:1 2pm Atrial fibrillation January 13, 2025 1:12 pm CONFERENCE CONCIERGE TO SEE/PER SP January 15, 2025 10:0 9am 1 WK DCCV January 20, 2025 1:06 pm Blood pressure check January 31, 2025 1: 33pm EKG February 07, 2025 1:3 9pm AFIB February 07, 2025 4:4 7pm Atrial fibrillation February 07, 2025 5:1 2pm Atrial fibrillation February 07, 2025 6:5 4pm Atrial fibrillation February 08, 2025 12: 19pm Atrial fibrillation February 09, 2025 10 :42am Atrial fibrillation February 09, 2025 12 :30pm Atrial fibrillation February 10, 2025 10 :30am Atrial fibrillation February 10, 2025 11 :03am Atrial fibrillation February 10, 2025 3: 00pm S/P [facility] 02/10February 26, 2025 12 :59pm Reason for Visit Admit Date Paroxysmal atrial flutter January 10 9:23am Paroxysmal atrial flutter January 13 10:24am Paroxysmal atrial flutter January 31 1:33pm Paroxysmal atrial fibrillation January 1:33pm Atrial flutter with rapid ventricular re sponse February 07, 2025 4:47pm Elevated brain natriuretic peptide (BNP) level February 07, 2025 4:47pm Essential (primary) hypertension February 07, 2025 4:47pm History of cardioversion February 07 4:47pm Paroxysmal atrial fibrillation January 4:47pm Shortness of breath February 07, 2025 4:4 7pm Single kidney February 07, 2025 4:4 7pm Decreased left ventricular systolic func tion February 26, 2025 12:59pm Sinus bradycardia February 26, 2025 12 :59pm Paroxysmal atrial flutter February 26, 025 12:59pm Chief Complaint Admit Date a fib, see clinical notes January 10 9:23am AFIB January 13, 2025 10:2 4am Atrial fibrillation January 13, 2025 12:1 2pm Atrial fibrillation January 13, 2025 1:12 pm CONFERENCE CONCIERGE TO SEE/PER SP January 15, 2025 10:0 9am 1 WK DCCV January 20, 2025 1:06 pm Blood pressure check January 31, 2025 1: 33pm EKG February 07, 2025 1:3 9pm AFIB February 07, 2025 4:4 7pm Atrial fibrillation February 07, 2025 5:1 2pm Atrial fibrillation February 07, 2025 6:5 4pm Atrial fibrillation February 08, 2025 12: 19pm Atrial fibrillation February 09, 2025 10 :42am Atrial fibrillation February 09, 2025 12 :30pm Atrial fibrillation February 10, 2025 10 :30am Atrial fibrillation February 10, 2025 11 :03am Atrial fibrillation February 10, 2025 3: 00pm S/[facility] 02/10February 26, 2025 12 :59pm BRADYCARDIA March 31, 2025 6:59am BRADYCARDIA March 31, 2025 3:10pm Chief Complaint Admit Date a fib, see clinical notes January 10 9:23am AFIB January 13, 2025 10:2 4am Atrial fibrillation January 13, 2025 12:1 2pm Atrial fibrillation January 13, 2025 1:12 pm CONFERENCE CONCIERGE TO SEE/PER SP January 15, 2025 10:0 9am 1 WK DCCV January 20, 2025 1:06 pm Blood pressure check January 31, 2025 1: 33pm EKG February 07, 2025 1:3 9pm AFIB February 07, 2025 4:4 7pm Atrial fibrillation February 07, 2025 5:1 2pm Atrial fibrillation February 07, 2025 6:5 4pm Atrial fibrillation February 08, 2025 12: 19pm Atrial fibrillation February 09, 2025 10 :42am Atrial fibrillation February 09, 2025 12 :30pm Atrial fibrillation February 10, 2025 10 :30am Atrial fibrillation February 10, 2025 11 :03am Atrial fibrillation February 10, 2025 3: 00pm S/[facility] 02/10February 26, 2025 12 :59pm BRADYCARDIA March 31, 2025 6:59am BRADYCARDIA March 31, 2025 3:10pm PER MMM April 08, 2025 1: 01pm Reason for Visit Admit Date Paroxysmal atrial flutter January 10 9:23am Paroxysmal atrial flutter January 13 10:24am Paroxysmal atrial flutter January 31 1:33pm Paroxysmal atrial fibrillation January 1:33pm Atrial flutter with rapid ventricular re sponse February 07, 2025 4:47pm Elevated brain natriuretic peptide (BNP) level February 07, 2025 4:47pm Essential (primary) hypertension February 07, 2025 4:47pm History of cardioversion February 07 4:47pm Paroxysmal atrial fibrillation January 4:47pm Shortness of breath February 07, 2025 4:4 7pm Single kidney February 07, 2025 4:4 7pm Decreased left ventricular systolic func tion February 26, 2025 12:59pm Sinus bradycardia February 26, 2025 12 :59pm Paroxysmal atrial flutter February 26, 2 025 12:59pm Abnormal cardiovascular stress test Octo 2024 1:01pm Atrial flutter with rapid ventricular re sponse April 08, 2025 1:01pm Decreased left ventricular systolic func tion April 08, 2025 1:01pm Sinus bradycardia April 08, 2025 1: 01pm Paroxysmal atrial flutter April 08 025 1:01pm Family History No Family History Records Found Relationship Condition Age at Onset Recorded Date/T jade mother Hypertension Unknown father Hypertension Unknown Malignant neoplasm of prostate Unknown Leukemia Unknown sister Unknown Deep vein thrombosis (DVT) Unknown Hypertension Unknown Advance Directives No Advanced Directives Records Found Advance Directive Response Recorded Date/ Time Advance Directives Yes November 11 10:42am Living Will Yes February 06, 2021 5:12pm Power of Registered Representative Yes February 06 5:12pm Documents on File Type Date Recorded Patient Manager Language Expl anation Advance Directive(s) 11/02/2021 7:31 AM Advance Directive(s) 09/22/2016 10:45 AM Advance Directive(s) 09/14/2016 3:12 PM Advance Directive(s) 04/10/2013 2:33 PM Advance Directive(s) 04/10/2013 2:34 PM Advance Directive(s) 05/10/2010 9:21 PM Documents on File Type Date Recorded Patient Manager Language Expl anation Advance Directive(s) 11/02/2021 7:31 AM Advance Directive(s) 09/22/2016 10:45 AM Advance Directive(s) 09/14/2016 3:12 PM Advance Directive(s) 04/10/2013 2:33 PM Advance Directive(s) 04/10/2013 2:34 PM Advance Directive(s) 05/10/2010 9:21 PM Advance Directive Response Recorded Date/ Time Advance Directives Yes November 11 10:42am Living Will Yes January 26, 2022 10:40pm Power of Registered Representative Yes January 26 10:40pm Name of Medical Power of Registered Representative January 26, 2022 10:40pm Documents on File Type Date Recorded Patient Manager Language Expl anation Advance Directive(s) 04/10/2013 2:33 PM Advance Directive(s) 04/10/2013 2:34 PM Advance Directive(s) 05/10/2010 9:21 PM Documents on File Type Date Recorded Patient Manager Language Expl anation Advance Directive(s) 04/10/2013 2:33 PM Advance Directive(s) 04/10/2013 2:34 PM Advance Directive(s) 05/10/2010 9:21 PM Advance Directive Response Recorded Date/ Time Advance Directives Yes November 11 10:42am Living Will Yes January 26, 2022 10:40pm Power of Registered Representative Yes January 26 10:40pm Advance Directive Response Recorded Date/ Time Name of Medical Power of Registered Representative JOZEF OHARA April 13, 2023 12:53pm Advance Directives Yes November 11 10:42am Living Will Yes April 13 12:53pm Power of Registered Representative Yes April 13, 2023 12:53pm Documents on File Type Date Recorded Patient Manager Language Expl anation Advance Directive(s) 04/10/2013 2:34 PM Advance Directive(s) 04/10/2013 2:33 PM Advance Directive(s) 05/10/2010 9:21 PM Documents on File Type Date Recorded Patient Manager Language Expl anation Advance Directive(s) 04/10/2013 2:34 PM Advance Directive(s) 04/10/2013 2:33 PM Advance Directive(s) 05/10/2010 9:21 PM Advance Directive Response Recorded Date/ Time Advance Directives Yes November 11 10:42am Living Will Yes April 13 12:53pm Power of Registered Representative Yes April 13, 2023 12:53pm Advance Directive Response Recorded Date/ Time Living Will Yes September 16, 2024 2:56pm Power of Registered Representative Yes September 16 2:56pm Name of Medical Power of Registered Representative [facility], 2024 2:56pm Advance Directives Yes November 11 10:42am Advance Directive Response Recorded Date/ Time Living Will Yes April 13 12:53pm Do you have a Healthcare Pow er of Registered Representative? Yes April 13, 2023 12:53pm Living Will Yes September 16, 2024 2:56pm Do you have a Healthcare Pow er of Registered Representative? Yes September 16, 2024 2:56pm Name of Medical Power of Registered Representative Jozef chadwick September 16, 2024 2:56pm Advance Directives Yes November 11 10:42am Advance Directive Response Recorded Date/ Time Living Will Yes April 13 12:53pm Do you have a Healthcare Pow er of Registered Representative? Yes April 13, 2023 12:53pm Living Will Yes September 16, 2024 2:56pm Do you have a Healthcare Pow er of Registered Representative? Yes September 16, 2024 2:56pm Name of Medical Power of Registered Representative Jozef chadwick September 16, 2024 2:56pm Advance Directives on File Yes January 13, 2025 11:13am Living Will Yes January 13, 2025 11:13am Do you have a Healthcare Pow er of Registered Representative? Yes January 13, 2025 11:13am Name of Medical Power of Registered Representative osvaldo anaya n January 13, 2025 11:13am Advance Directives Yes January 13 11:13am Advance Directive Response Recorded Date/ Time Living Will Yes April 13 12:53pm Do you have a Healthcare Pow er of Registered Representative? Yes April 13, 2023 12:53pm Advance Directives on File Yes January 13, 2025 11:13am Living Will Yes January 13, 2025 11:13am Do you have a Healthcare Pow er of Registered Representative? Yes January 13, 2025 11:13am Name of Medical Power of Registered Representative osvaldo anaya n January 13, 2025 11:13am Advance Directives Yes January 13 11:13am Advance Directive Response Recorded Date/ Time Advance Directives on File Yes January 13, 2025 11:13am Living Will Yes January 13, 2025 11:13am Do you have a Healthcare Power of Registered Representative? Yes January 13, 2025 11:13am Name of Medical Power of Registered Representative osvaldo anaya n January 13, 2025 11:13am Advance Directives Yes January 13 11:13am Advance Directive Response Recorded Date/ Time Advance Directives on File Yes January 13, 2025 11:13am Living Will Yes January 13, 2025 11:13am Do you have a Healthcare Power of Registered Representative? Yes January 13, 2025 11:13am Name of Medical Power of Registered Representative osvaldo anaya n January 13, 2025 11:13am Advance Directives Yes January 13 11:13am Do you have a Healthcare Power of Registered Representative? Yes February 07, 2025 3:25pm Advance Directive Response Recorded Date/ Time Advance Directives on File Yes January 13, 2025 11:13am Living Will Yes January 13, 2025 11:13am Do you have a Healthcare Power of Registered Representative? Yes January 13, 2025 11:13am Name of Medical Power of Registered Representative osvaldo anaya n January 13, 2025 11:13am Advance Directives Yes January 13 11:13am Do you have a Healthcare Power of Registered Representative? Yes February 07, 2025 6:33pm Medications Administered Section Inactive Administered Medications - [...] or prosecute any alcohol or drug abuse patient.[facility] Hospital[facility] the event this information is protected by the Federal Confidentiality of Alcohol and Drug Abuse Patient Records regulations: The Federal rules restrict any use of the information to criminally investigate or prosecute any alcohol or drug abuse patient.[facility] HospitalIn the event this information is protected by the Federal Confidentiality of Alcohol and Drug Abuse Patient Records regulations: The Federal rules restrict any use of the information to criminally investigate or prosecute any alcohol or drug abuse patient.[facility] HospitalIn the event this information is protected by the Federal Confidentiality of Alcohol and Drug Abuse Patient Records regulations: The Federal rules restrict any use of the information to criminally investigate or prosecute any alcohol or drug abuse patient.[facility] HospitalIn the event this information is protected by the Federal Confidentiality of Alcohol and Drug Abuse Patient Records regulations: The Federal rules restrict any use of the information to criminally investigate or prosecute any alcohol or drug abuse patient.[facility] HospitalIn the event this information is protected by the Federal Confidentiality of Alcohol and Drug Abuse Patient Records regulations: The Federal rules restrict any use of the information to criminally investigate or prosecute any alcohol or drug abuse patient.[facility] HospitalIn the event this information is protected by the Federal Confidentiality of Alcohol and Drug Abuse Patient Records regulations: The Federal rules restrict any use of the information to criminally investigate or prosecute any alcohol or drug abuse patient.[facility] HospitalIn the event this information is protected by the Federal Confidentiality of Alcohol and Drug Abuse Patient Records regulations: The Federal rules restrict any use of the information to criminally investigate or prosecute any alcohol or drug abuse patient.[facility] HospitalIn the event this information is protected by the Federal Confidentiality of Alcohol and Drug Abuse Patient Records regulations: The Federal rules restrict any use of the information to criminally investigate or prosecute any alcohol or drug abuse patient.[facility] HospitalIn the event this information is protected by the Federal Confidentiality of Alcohol and Drug Abuse Patient Records regulations: The Federal rules restrict any use of the information to criminally investigate or prosecute any alcohol or drug abuse patient.[facility] HospitalIn the event this information is protected by the Federal Confidentiality of Alcohol and Drug Abuse Patient Records regulations: The Federal rules restrict any use of the information to criminally investigate or prosecute any alcohol or drug abuse patient.[facility] HospitalIn the event this information is protected by the Federal Confidentiality of Alcohol and Drug Abuse Patient Records regulations: The Federal rules restrict any use of the information to criminally investigate or prosecute any alcohol or drug abuse patient.[facility] HospitalIn the event this information is protected by the Federal Confidentiality of Alcohol and Drug Abuse Patient Records regulations: The Federal rules restrict any use of the information to criminally investigate or prosecute any alcohol or drug abuse patient.[facility] HospitalIn the event this information is protected by the Federal Confidentiality of Alcohol and Drug Abuse Patient Records regulations: The Federal rules restrict any use of the information to criminally investigate or prosecute any alcohol or drug abuse patient.[facility] HospitalIn the event this information is protected by the Federal Confidentiality of Alcohol and Drug Abuse Patient Records regulations: The Federal rules restrict any use of the information to criminally investigate or prosecute any alcohol or drug abuse patient.[facility] HospitalIn the event this information is protected by the Federal Confidentiality of Alcohol and Drug Abuse Patient Records regulations: The Federal rules restrict any use of the information to criminally investigate or prosecute any alcohol or drug abuse patient.[facility] HospitalIn the event this information is protected by the Federal Confidentiality of Alcohol and Drug Abuse Patient Records regulations: The Federal rules restrict any use of the information to criminally investigate or prosecute any alcohol or drug abuse patient.[facility] HospitalIn the event this information is protected by the Federal Confidentiality of Alcohol and Drug Abuse Patient Records regulations: The Federal rules restrict any use of the information to criminally investigate or prosecute any alcohol or drug abuse patient.[facility] HospitalIn the event this information is protected by the Federal Confidentiality of Alcohol and Drug Abuse Patient Records regulations: The Federal rules restrict any use of the information to criminally investigate or prosecute any alcohol or drug abuse patient.[facility] HospitalIn the event this information is protected by the Federal Confidentiality of Alcohol and Drug Abuse Patient Records regulations: The Federal rules restrict any use of the information to criminally investigate or prosecute any alcohol or drug abuse patient.[facility] HospitalIn the event this information is protected by the Federal Confidentiality of Alcohol and Drug Abuse Patient Records regulations: The Federal rules restrict any use of the information to criminally investigate or prosecute any alcohol or drug abuse patient.[facility] HospitalIn the event this information is protected by the Federal Confidentiality of Alcohol and Drug Abuse Patient Records regulations: The Federal rules restrict any use of the information to criminally investigate or prosecute any alcohol or drug abuse patient.[facility] HospitalIn the event this information is protected by the Federal Confidentiality of Alcohol and Drug Abuse Patient Records regulations: The Federal rules restrict any use of the information to criminally investigate or prosecute any alcohol or drug abuse patient.[facility] HospitalIn the event this information is protected by the Federal Confidentiality of Alcohol and Drug Abuse Patient Records regulations: The Federal rules restrict any use of the information to criminally investigate or prosecute any alcohol or drug abuse patient.[facility] HospitalIn the event this information is protected by the Federal Confidentiality of Alcohol and Drug Abuse Patient Records regulations: The Federal rules restrict any use of the information to criminally investigate or prosecute any alcohol or drug abuse patient.[facility] HospitalIn the event this information is protected by the Federal Confidentiality of Alcohol and Drug Abuse Patient Records regulations: The Federal rules restrict any use of the information to criminally investigate or prosecute any alcohol or drug abuse patient.[facility] HospitalIn the event this information is protected by the Federal Confidentiality of Alcohol and Drug Abuse Patient Records regulations: The Federal rules restrict any use of the information to criminally investigate or prosecute any alcohol or drug abuse patient.[facility] HospitalIn the event this information is protected by the Federal Confidentiality of Alcohol and Drug Abuse Patient Records regulations: The Federal rules restrict any use of the information to criminally investigate or prosecute any alcohol or drug abuse patient.[facility] HospitalIn the event this information is protected by the Federal Confidentiality of Alcohol and Drug Abuse Patient Records regulations: The Federal rules restrict any use of the information to criminally investigate or prosecute any alcohol or drug abuse patient.[facility] HospitalIn the event this information is protected by the Federal Confidentiality of Alcohol and Drug Abuse Patient Records regulations: The Federal rules restrict any use of the information to criminally investigate or prosecute any alcohol or drug abuse patient.[facility] HospitalIn the event this information is protected by the Federal Confidentiality of Alcohol and Drug Abuse Patient Records regulations: The Federal rules restrict any use of the information to criminally investigate or prosecute any alcohol or drug abuse patient.[facility] HospitalIn the event this information is protected by the Federal Confidentiality of Alcohol and Drug Abuse Patient Records regulations: The Federal rules restrict any use of the information to criminally investigate or prosecute any alcohol or drug abuse patient.[facility] HospitalIn the event this information is protected by the Federal Confidentiality of Alcohol and Drug Abuse Patient Records regulations: The Federal rules restrict any use of the information to criminally investigate or prosecute any alcohol or drug abuse patient.[facility] HospitalIn the event this information is protected by the Federal Confidentiality of Alcohol and Drug Abuse Patient Records regulations: The Federal rules restrict any use of the information to criminally investigate or prosecute any alcohol or drug abuse patient.[facility] HospitalIn the event this information is protected by the Federal Confidentiality of Alcohol and Drug Abuse Patient Records regulations: The Federal rules restrict any use of the information to criminally investigate or prosecute any alcohol or drug abuse patient.[facility] HospitalIn the event this information is protected by the Federal Confidentiality of Alcohol and Drug Abuse Patient Records regulations: The Federal rules restrict any use of the information to criminally investigate or prosecute any alcohol or drug abuse patient.[facility] HospitalIn the event this information is protected by the Federal Confidentiality of Alcohol and Drug Abuse Patient Records regulations: The Federal rules restrict any use of the information to criminally investigate or prosecute any alcohol or drug abuse patient.[facility] Care Teams (unrecognized sec tion and content) Nursing Home Assistant Administrator Relationship Specialty Start Date End Date Liliam Alaniz MD [address] [place] [address] PCP - General 11/08/02 Nursing Home Assistant Administrator Relationship Specialty Start Date End Date Liliam Alaniz MD [address] [facility] [place] [address] PCP - General 11/08/02 Nursing Home Assistant Administrator Relationship Specialty Start Date End Date Liliam Alaniz MD [address] [facility] [place] [address] PCP - General 11/08/02 Nursing Home Assistant Administrator Relationship Specialty Start Date End Date Liliam Alaniz MD [facility] [place] [address] PCP - General 11/08/02 Nursing Home Assistant Administrator Relationship Specialty Start Date End Date Liliam Alaniz MD [address] [place] [address], [place] [address] PCP - General 11/08/02 Nursing Home Assistant Administrator Relationship Specialty Start Date End Date Liliam Alaniz MD [address] [place] [address], [place] [address] PCP - General 11/08/02 Nursing Home Assistant Administrator Relationship Specialty Start Date End Date Liliam Alaniz MD [facility] [place] [address] PCP - General 11/08/02 Nursing Home Assistant Administrator Relationship Specialty Start Date End Date Liliam Alaniz MD [address] [place] [address], [place] [address] PCP - General 11/08/02 Nursing Home Assistant Administrator Relationship Specialty Start Date End Date Liliam Alaniz MD [address] [place] [address], [place] [address] PCP - General 11/08/02 Nursing Home Assistant Administrator Relationship Specialty Start Date End Date Liliam Alaniz MD [address] [place] [address], [place] [address] PCP - General 11/08/02 Nursing Home Assistant Administrator Relationship Specialty Start Date End Date Liliam Alaniz MD [address] [place] [address] PCP - General 11/08/02 Nursing Home Assistant Administrator Relationship Specialty Start Date End Date Liliam Alaniz MD [address] [place] [address] PCP - General 11/08/02 Team Status: Active Member Role Status Dates Dr. Liliam Alaniz MD Family Provider Active Dr. Liliam Alaniz MD Primary Care Provider Active Team Status: Inactive Member Role Status Dates Dr. Liliam Alaniz MD Primary Care Provider, Referr ing Provider Active Rea Campbell METAL CONTAINER MAKER, METAL CONTAINER MAKER-C Attending Provider Active Team Status: Inactive Member Role Status Dates Dr. Liliam Alaniz MD Primary Care Provider Active Rea Campbell METAL CONTAINER MAKER, METAL CONTAINER MAKER-C Attending Provider, Referring P geovanna Active Team Status: Inactive Member Role Status Dates Dr. Liliam Alaniz MD Primary Care Provider Active Dr. Jf Gallegos DO Emergency Provider Active Nursing Home Assistant Administrator Relationship Specialty Start Date End Date Liliam Alaniz MD [address] [place] [address] PCP - General 11/08/02 Nursing Home Assistant Administrator Relationship Specialty Start Date End Date Liliam Alaniz MD [address] [place] [address] PCP - General 11/08/02 Team Status: Inactive Member Role Status Dates Dr. Liliam Alaniz MD Primary Care Provider, Referr ing Provider Active Dr. Sterling Thapa MD Attending Provider Active Team Status: Inactive Member Role Status Dates Dr. Liliam Alaniz MD Primary Care Provider Active Dr. Sterling Thapa MD Attending Provider, Referring Pro vider Active Nursing Home Assistant Administrator Relationship Specialty Start Date End Date Liliam Alaniz MD [address] [place] [address] PCP - General 11/08/02 Nursing Home Assistant Administrator Relationship Specialty Start Date End Date Liliam Alaniz MD [address] [place] [address] PCP - General 11/08/02 Nursing Home Assistant Administrator Relationship Specialty Start Date End Date Liliam Alaniz MD [address] [place] [address] PCP - General 11/08/02 Nursing Home Assistant Administrator Relationship Specialty Start Date End Date Liliam Alaniz MD [address] [place] [address] PCP - General 11/08/02 Katey Stanton, POSSUM TRAPPER.LAWN MOWER OPERATOR [address] [place] [address] Server Systems Administrator Internal Medicine 06/10/24 Barbra Daniels POSSUM TRAPPER.SOLE INKER [address] [place] [address] Server Systems Administrator Internal Medicine 06/10/24 Nursing Home Assistant Administrator Relationship Specialty Start Date End Date Liliam Alaniz MD [address] [place] [address] PCP - General 11/08/02 Katey Stanton, POSSUM TRAPPER.LAWN MOWER OPERATOR [address] [place] [address] Server Systems Administrator Internal Medicine 06/10/24 Barbra Daniels POSSUM TRAPPER.SOLE INKER [address] [place] [address] Server Systems Administrator Internal Medicine 06/10/24 Nursing Home Assistant Administrator Relationship Specialty Start Date End Date Liliam Alaniz MD [address] [place] [address] PCP - General 11/08/02 Katey Stanton, POSSUM TRAPPER.LAWN MOWER OPERATOR [address] [facility] [place] [address] Server Systems Administrator Internal Medicine 06/10/24 Barbra Daniels POSSUM TRAPPER.SOLE INKER [address] [facility] [place] [address] [facility] Internal Medicine 06/10/24 Nursing Home Assistant Administrator Relationship Specialty Start Date End Date Liliam Alaniz MD [address] [facility] [place] [address] PCP - General 11/08/02 Katey Stanton, POSSUM TRAPPER.LAWN MOWER OPERATOR [address] [facility] [place] [address] Formerly [facility] Internal Medicine 06/10/24 Barbra Daniels, POSSUM TRAPPER.SOLE INKER [address] [place] [address] [facility]ly [facility] Internal Medicine 06/10/24 Nursing Home Assistant Administrator Relationship Specialty Start Date End Date Liliam Alaniz MD [address] [place] [address] PCP - General 11/08/02 Katey Stanton, POSSUM TRAPPER.LAWN MOWER OPERATOR [address] [place] [address] [facility] Internal Medicine 06/10/24 Team Status: Active Member Role Status Dates Dr. Liliam Alaniz MD Primary Care Provider Active Team Status: Inactive Member Role Status Dates Dr. Liliam Alaniz MD Primary Care Provider Active Start: September 16, 2024 End: September 16, 2024 Dr. Liliam Alaniz MD Referring Provider Active Start: September 16, 2024 End: September 16, 2024 Jozef Carr METAL CONTAINER MAKER, METAL CONTAINER MAKER-C Attending Provider Active S tart: September 16, 2024 End: September 16, 2024 Team Status: Inactive Member Role Status Dates Dr. Liliam Alaniz MD Primary Care Provider Active Start: September 16, 2024 End: September 16, 2024 Dr. Audie Nieves DO Emergency Provider Active Start : September 16, 2024 End: September 16, 2024 Nursing Home Assistant Administrator Relationship Specialty Start Date End Date Liliam Alaniz MD [address] [facility] [place] [address] PCP - General 11/08/02 Barbra Daniels POSSUM TRAPPER.SOLE INKER [address] [facility] [place] [address] Server Systems Administrator Internal Medicine 09/24/24 Katey Stanton POSSUM TRAPPER.LAWN MOWER OPERATOR [address] [facility] [place] [address] Server Systems Administrator Internal Medicine 11/20/24 Nursing Home Assistant Administrator Relationship Specialty Start Date End Date Liliam Alaniz MD [address] [facility] [place] [address] PCP - General 11/08/02 Katey Stanton POSSUM TRAPPER.LAWN MOWER OPERATOR [address] [facility] [place] [address] Server Systems Administrator Internal Medicine 06/10/24 11/19/24 Barbra Daniels POSSUM TRAPPER.SOLE INKER [address] [place] [address] Server Systems Administrator Internal Medicine 09/24/24 Katey Stanton, POSSUM TRAPPER.LAWN MOWER OPERATOR [address] [place] [address] [facility]ly [facility] Internal Medicine 11/20/24 Nursing Home Assistant Administrator Relationship Specialty Start Date End Date Liliam Alaniz MD [address] [place] [address] PCP - General 11/08/02 Barbra Daniels, POSSUM TRAPPER.SOLE INKER [address] [place] [address] [facility] Internal Medicine 09/24/24 Katey Stanton, POSSUM TRAPPER.LAWN MOWER OPERATOR [address] [place] [address] [facility] Internal Medicine 11/20/24 Team Status: Active Member Role/Relationship Status Dates Dr. Liliam Alaniz MD Primary Care Provider Active Team Status: Inactive Member Role/Relationship Status Dates Dr. Liliam Alaniz MD Primary Care Provider Active Start: September 16, 2024 End: September 16, 2024 Dr. Liliam Alaniz MD Referring Provider Active Start: September 16, 2024 End: September 16, 2024 Jozef Carr METAL CONTAINER MAKER, METAL CONTAINER MAKER-C Attending Provider Active S tart: September 16, [...] January 10, 2025 End: January 10, 2025 Teofilo Dobson PA, PA Attending Provider Active Start: [...] January 10, 2025 End: January 10, 2025 Teofilo Dobson PA, PA Attending Provider Active Start: [...] January 20, 2025 End: January 20, 2025 Teofilo FLETCHER PA Attending Provider Active Start: January 20, 2025 End: January 20, 2025 Team Status: Inactive Member Role/Relationship Status Dates Dr. Liliam Alaniz MD Primary Care Provider Active Start: January 31, 2025 End: January 31, 2025 Dr. Liliam Alaniz MD Referring Provider Active Start: January 31, 2025 End: January 31, 2025 Jozef Carr METAL CONTAINER MAKER, METAL CONTAINER MAKER-C Attending Provider Active S tart: January 31, 2025 End: January 31, 2025 Team Status: Inactive Member Role/Relationship Status Dates Dr. Liliam Alaniz MD Primary Care Provider Active Start: January 10, 2025 End: January 10, 2025 Dr. Liliam Alaniz MD Referring Provider Active Start: January 10, 2025 End: January 10, 2025 Teofilo FLETCHER PA Attending Provider Active Start: January [...] January 20, 2025 End: January 20, 2025 Teofilo Dobson PA, PA Attending Provider Active Start: January 20, 2025 End: January 20, 2025 Team Status: Inactive Member Role/Relationship Status Dates Dr. Liliam Alaniz MD Primary Care Provider Active Start: January 31, 2025 End: January 31, 2025 Dr. Liliam Alaniz MD Referring Provider Active Start: January 31, 2025 End: January 31, 2025 Jozef Carr METAL CONTAINER MAKER, METAL CONTAINER MAKER-C Attending Provider Active S tart: January 31, [...] February 07, 2025 End: February 07, 2025 Team Status: Active Member Role/Relationship Status Dates Dr. Liliam Alaniz MD Primary Care Provider Active Start: February 07, 2025 Dr. David Hartman MD Emergency Provider Active S tart: February 07, 2025 Dr. George Nichole DO Admit Provider Active Star t: February 07, 2025 Dr. George Nichole DO Attending Provider Active Start: February 07, 2025 Team Status: Active Member Role/Relationship Status Dates Dr. Liliam Alaniz MD Primary Care Provider Active Start: February 07, 2025 Dr. David Hartman MD Emergency Provider Active S tart: February 07, 2025 Dr. George Nichole DO Admit Provider Active Star t: February 07, 2025 Dr. George Nichole DO Attending Provider Active Start: February 07, 2025 Dr. George Nichole DO Other Provider Active Star t: February 07, 2025 Team Status: Inactive Member Role/Relationship Status Dates Dr. Liliam Alaniz MD Primary Care Provider Active Start: February 07, 2025 End: February 10, 2025 Dr. David Hartman MD Emergency Provider Active S tart: February 07, 2025 End: February 10, 2025 Dr. George Nichole DO Admit Provider Active Star t: February 07, 2025 End: February 10, 2025 Dr. George Nichole DO Other Provider Active Star t: February 07, 2025 End: February 10, 2025 Dr. Enrico Rendon MD Other Provider Active Star t: February 07, 2025 End: February 10, 2025 Dr. Roxana Valerio MD Attending Provider Active Start: February 07, 2025 End: February 10, 2025 Team Status: Active Member Role/Relationship Status Dates Dr. Liliam Alaniz MD Primary Care Provider Active Start: February 07, 2025 Dr. David Hartman MD Emergency Provider Active S tart: February 07, 2025 Dr. George Nichole DO Admit Provider Active Star t: February 07, 2025 Dr. George Nichole DO Other Provider Active Star t: February 07, 2025 Dr. Enrico Rendon MD Attending Provider Active Start: February 07, 2025 Dr. Enrico Rendon MD Other Provider Active Star t: February 07, 2025 Team Status: Active Member Role/Relationship Status Dates Dr. Liliam Alaniz MD Primary Care Provider Active Start: February 08, 2025 Dr. Enrico Rendon MD Attending Provider Active Start: February 08, 2025 Team Status: Active Member Role/Relationship Status Dates Dr. Liliam Alaniz MD Primary Care Provider Active Start: February 08, 2025 Dr. David Hartman MD Emergency Provider Active S tart: February 08, 2025 Dr. George Nichole DO Admit Provider Active Star t: February 08, 2025 Dr. George Nichole DO Other Provider Active Star t: February 08, 2025 Dr. Enrico Rendon MD Other Provider Active Star t: February 08, 2025 Dr. Roxana Valerio MD Attending Provider Active Start: February 08, 2025 Dr. Roxana Valerio MD Other Provider Active St art: February 08, 2025 Team Status: Active Member Role/Relationship Status Dates Dr. Liliam Alaniz MD Primary Care Provider Active Start: February 09, 2025 Dr. David Hartman MD Emergency Provider Active S tart: February 09, 2025 Dr. George Nichole DO Admit Provider Active Star t: February 09, 2025 Dr. George Nichole DO Other Provider Active Star t: February 09, 2025 Dr. Enrico Rendon MD Other Provider Active Star t: February 09, 2025 Dr. Roxana Valerio MD Attending Provider Active Start: February 09, 2025 Dr. Roxana Valerio MD Other Provider Active St art: February 09, 2025 Team Status: Active Member Role/Relationship Status Dates Dr. Liliam Alaniz MD Primary Care Provider Active Start: February 09, 2025 Dr. David Hartman MD Emergency Provider Active S tart: February 09, 2025 Dr. George Nichole DO Admit Provider Active Star t: February 09, 2025 Dr. George Nichole DO Other Provider Active Star t: February 09, 2025 Dr. Enrico Rendon MD Attending Provider Active Start: February 09, 2025 Dr. Enrico Rendon MD Other Provider Active Star t: February 09, 2025 Dr. Roxana Valerio MD Other Provider Active St art: February 09, 2025 Team Status: Active Member Role/Relationship Status Dates Dr. Liliam Alaniz MD Primary Care Provider Active Start: February 10, 2025 Dr. David Hartman MD Emergency Provider Active S tart: February 10, 2025 Dr. George Nichole DO Admit Provider Active Star t: February 10, 2025 Dr. George Nichole DO Other Provider Active Star t: February 10, 2025 Dr. Enrico Rendon MD Other Provider Active Star t: February 10, 2025 Dr. Roxana Valerio MD Other Provider Active St art: February 10, 2025 Dr. Sterling Thapa MD Attending Provider Active S tart: February 10, 2025 Team Status: Active Member Role/Relationship Status Dates Dr. Liliam Alaniz MD Primary Care Provider Active Start: February 10, 2025 Dr. David Hartman MD Emergency Provider Active S tart: February 10, 2025 Dr. George Nichole DO Admit Provider Active Star t: February 10, 2025 Dr. George Nichole DO Other Provider Active Star t: February 10, 2025 Dr. Enrico Rendon MD Other Provider Active Star t: February 10, 2025 Dr. Roxana Valerio MD Other Provider Active St art: February 10, 2025 Dr. Gage Zuñiga DO Attending Provider Active S tart: February 10, 2025 Nursing Home Assistant Administrator Relationship Specialty Start Date End Date Liliam Alaniz MD [address] [place], [place] [id number] PCP - General 11/08/02 Barbra Daniels, POSSUM TRAPPER.SOLE INKER [address] [place], [place] [id number] Server Systems Administrator Internal Medicine 09/24/24 Katey Stanton, POSSUM TRAPPER.LAWN MOWER OPERATOR [address] [place], [place] [id number] Server Systems Administrator Internal Medicine 11/20/24 Nursing Home Assistant Administrator Relationship Specialty Start Date End Date Liliam Alaniz MD [address] [facility] [place], [place] [address] PCP - General 11/08/02 Barbra Daniels, POSSUM TRAPPER.SOLE INKER [address] [place], [place] [address] Server Systems Administrator Internal Medicine 09/24/24 Katey Stanton, POSSUM TRAPPER.LAWN MOWER OPERATOR [address] [facility] [place] [address] Server Systems Administrator Internal Medicine 11/20/24 Team Status: Active Member Role/Relationship Status Dates Dr. Liliam Alaniz MD Primary Care Provider Active Start: February 10, 2025 Dr. David Hartman MD Emergency Provider Active S tart: February 10, 2025 Dr. George Nichole DO Admit Provider Active Star t: February 10, 2025 Dr. George Nichole DO Other Provider Active Star t: February 10, 2025 Dr. Enrico Rendon MD Other Provider Active Star t: February 10, 2025 Dr. Roxana Valerio MD Attending Provider Active Start: February 10, 2025 Dr. Roxana Valerio MD Other Provider Active St art: February 10, 2025 Team Status: Inactive Member Role/Relationship Status Dates Dr. Lilima Alaniz MD Primary Care Provider Active Start: February 26, 2025 End: February 26, 2025 Dr. Liliam Alaniz MD Referring Provider Active Start: February 26, 2025 End: February 26, 2025 Teofilo Dobson PA, PA Attending Provider Active Start: February 26, 2025 End: February 26, 2025 Team Status: Active Member Role/Relationship Status Dates Dr. Liliam Alaniz MD Primary care physician Active Team Status: Inactive Member Role/Relationship Status Dates Dr. Liliam Alaniz MD Primary care physician Active Start: January 10, 2025 End: January 10, 2025 Dr. Liliam Alaniz MD Referring Provider Active Start: January 10, 2025 End: January 10, 2025 Teofilo Dobson PA, PA Attending physician Active Start: January 10, 2025 End: January 10, 2025 Team Status: Inactive Member Role/Relationship Status Dates Dr. Liliam Alaniz MD Primary care physician Active Start: January 13, 2025 End: January 13, 2025 Dr. Sterling Thapa MD Attending physician Active Start: January 13, 2025 End: January 13, 2025 Dr. Sterling Thapa MD Referring Provider Active S tart: January 13, 2025 End: January 13, 2025 Team Status: Active Member Role/Relationship Status Dates Dr. Liliam Alaniz MD Primary care physician Active Start: January 13, 2025 Dr. Sterling Thapa MD Attending physician Active Start: January 13, 2025 Dr. Sterling Thapa MD Referring Provider Active S tart: January 13, 2025 Dr. Sterling Thapa MD Nurse Practitioner Active S tart: January 13, 2025 Team Status: Active Member Role/Relationship Status Dates Dr. Liliam Alaniz MD Primary care physician Active Start: January 13, 2025 Dr. Sterling Thapa MD Referring Provider Active S tart: January 13, 2025 Dr. Sterling Thapa MD Nurse Practitioner Active S tart: January 13, 2025 Dr. Gage Zuñiga DO Attending physician Active Start: January 13, 2025 Team Status: Inactive Member Role/Relationship Status Dates Dr. Liliam Alaniz MD Primary care physician Active Start: January 15, 2025 End: January 15, 2025 Dr. Liliam Alaniz MD Referring Provider Active Start: January 15, 2025 End: January 15, 2025 Dr. Sterling Thapa MD Attending physician Active Start: January 15, 2025 End: January 15, 2025 Team Status: Inactive Member Role/Relationship Status Dates Dr. Liliam Alaniz MD Primary care physician Active Start: January 20, 2025 End: January 20, 2025 Dr. Liliam Alaniz MD Referring Provider Active Start: January 20, 2025 End: January 20, 2025 Teofilo Dobson PA, PA Attending physician Active Start: January 20, 2025 End: January 20, 2025 Team Status: Inactive Member Role/Relationship Status Dates Dr. Liliam Alaniz MD Primary care physician Active Start: January 31, 2025 End: January 31, 2025 Dr. Liliam Alaniz MD Referring Provider Active Start: January 31, 2025 End: January 31, 2025 Jozef Carr METAL CONTAINER MAKER, METAL CONTAINER MAKER-C Attending physician Active Start: January 31, 2025 End: January 31, 2025 Team Status: Inactive Member Role/Relationship Status Dates Dr. Liliam Alaniz MD Primary care physician Active Start: February 07, 2025 End: February 07, 2025 Dr. Liliam Alaniz MD Referring Provider Active Start: February 07, 2025 End: February 07, 2025 Dr. Sterling Thapa MD Attending physician Active Start: February 07, 2025 End: February 07, 2025 Team Status: Inactive Member Role/Relationship Status Dates Dr. Liliam Alaniz MD Primary care physician Active Start: February 07, 2025 End: February 10, 2025 Dr. David Hartman MD Emergency Department Physician Ac tive Start: February 07, 2025 End: February 10, 2025 Dr. George Nichole DO Admitting physician Active Start: February 07, 2025 End: February 10, 2025 Dr. George Nichole DO Nurse Practitioner Active Start: February 07, 2025 End: February 10, 2025 Dr. Enrico Rendon MD Nurse Practitioner Active Start: February 07, 2025 End: February 10, 2025 Dr. Roxana Valerio MD Attending physician Active Start: February 07, 2025 End: February 10, 2025 Team Status: Active Member Role/Relationship Status Dates Dr. Liliam Alaniz MD Primary care physician Active Start: February 07, 2025 Dr. David Hartman MD Emergency Department Physician Ac tive Start: February 07, 2025 Dr. George Nihcole DO Admitting physician Active Start: February 07, 2025 Dr. George Nichole DO Attending physician Active Start: February 07, 2025 Dr. George Nichole DO Nurse Practitioner Active Start: February 07, 2025 Team Status: Active Member Role/Relationship Status Dates Dr. Liliam Alaniz MD Primary care physician Active Start: February 07, 2025 Dr. David Hartman MD Emergency Department Physician Ac tive Start: February 07, 2025 Dr. George Nichole DO Admitting physician Active Start: February 07, 2025 Dr. George Nichole DO Nurse Practitioner Active Start: February 07, 2025 Dr. Enrico Rendon MD Attending physician Active Start: February 07, 2025 Dr. Enrico Rendon MD Nurse Practitioner Active Start: February 07, 2025 Team Status: Active Member Role/Relationship Status Dates Dr. Liliam Alaniz MD Primary care physician Active Start: February 08, 2025 Dr. Enrico Rendon MD Attending physician Active Start: February 08, 2025 Team Status: Active Member Role/Relationship Status Dates Dr. Liliam Alaniz MD Primary care physician Active Start: February 08, 2025 Dr. David Hartman MD Emergency Department Physician Ac tive Start: February 08, 2025 Dr. George Nichole DO Admitting physician Active Start: February 08, 2025 Dr. George Nichole DO Nurse Practitioner Active Start: February 08, 2025 Dr. Enrico Rendon MD Nurse Practitioner Active Start: February 08, 2025 Dr. Roxana Valerio MD Attending physician Active Start: February 08, 2025 Dr. Roxana Valerio MD Nurse Practitioner Active Start: February 08, 2025 Team Status: Active Member Role/Relationship Status Dates Dr. Liliam Alaniz MD Primary care physician Active Start: February 09, 2025 Dr. David Hartman MD Emergency Department Physician Ac tive Start: February 09, 2025 Dr. George Nichole DO Admitting physician Active Start: February 09, 2025 Dr. George Nichole DO Nurse Practitioner Active Start: February 09, 2025 Dr. Enrico Rendon MD Nurse Practitioner Active Start: February 09, 2025 Dr. Roxana Valerio MD Attending physician Active Start: February 09, 2025 Dr. Roxana Valerio MD Nurse Practitioner Active Start: February 09, 2025 Team Status: Active Member Role/Relationship Status Dates Dr. Liliam Alaniz MD Primary care physician Active Start: February 09, 2025 Dr. David Hartman MD Emergency Department Physician Ac tive Start: February 09, 2025 Dr. George Nichole DO Admitting physician Active Start: February 09, 2025 Dr. George Nichole DO Nurse Practitioner Active Start: February 09, 2025 Dr. Enrico Rendon MD Attending physician Active Start: February 09, 2025 Dr. Enrico Rendon MD Nurse Practitioner Active Start: February 09, 2025 Dr. Roxana Valerio MD Nurse Practitioner Active Start: February 09, 2025 Team Status: Active Member Role/Relationship Status Dates Dr. Liliam Alaniz MD Primary care physician Active Start: February 10, 2025 Dr. David Hartman MD Emergency Department Physician Ac tive Start: February 10, 2025 Dr. George Nichole DO Admitting physician Active Start: February 10, 2025 Dr. George Nichole DO Nurse Practitioner Active Start: February 10, 2025 Dr. Enrico Rendon MD Nurse Practitioner Active Start: February 10, 2025 Dr. Roxana Valerio MD Nurse Practitioner Active Start: February 10, 2025 Dr. Sterling Thapa MD Attending physician Active Start: February 10, 2025 Team Status: Active Member Role/Relationship Status Dates Dr. Liliam Alaniz MD Primary care physician Active Start: February 10, 2025 Dr. David Hartman MD Emergency Department Physician Ac tive Start: February 10, 2025 Dr. George Nichole DO Admitting physician Active Start: February 10, 2025 Dr. George Nichole DO Nurse Practitioner Active Start: February 10, 2025 Dr. Enrico Rendon MD Nurse Practitioner Active Start: February 10, 2025 Dr. Roxana Valerio MD Nurse Practitioner Active Start: February 10, 2025 Dr. Gage Zuñiga DO Attending physician Active Start: February 10, 2025 Dr. Sterling Thapa MD Referring Provider Active S tart: February 10, 2025 Team Status: Active Member Role/Relationship Status Dates Dr. Liliam Alaniz MD Primary care physician Active Start: February 10, 2025 Dr. David Hartman MD Emergency Department Physician Ac tive Start: February 10, 2025 Dr. George Nichole DO Admitting physician Active Start: February 10, 2025 Dr. George Nichole DO Nurse Practitioner Active Start: February 10, 2025 Dr. Enrico Rendon MD Nurse Practitioner Active Start: February 10, 2025 Dr. Roxana Valerio MD Attending physician Active Start: February 10, 2025 Dr. Roxana Valerio MD Nurse Practitioner Active Start: February 10, 2025 Team Status: Inactive Member Role/Relationship Status Dates Dr. Liliam Alaniz MD Primary care physician Active Start: February 26, 2025 End: February 26, 2025 Dr. Liliam Alaniz MD Referring Provider Active Start: February 26, 2025 End: February 26, 2025 Teofilo FLETCHER, PA Attending physician Active Start: February 26, 2025 End: February 26, 2025 Team Status: Inactive Member Role/Relationship Status Dates Dr. Liliam Alaniz MD Primary care physician Active Start: March 11, 2025 End: March 11, 2025 Teofilo FLETCHER, PA Attending physician Active Start: March 11, 2025 End: March 11, 2025 Teofilo Dobson PA, PA Referring Provider Active Start: March 11, 2025 End: March 11, 2025 Team Status: Inactive Member Role/Relationship Status Dates Dr. Liliam Alaniz MD Primary care physician Active Start: March 31, 2025 End: March 31, 2025 Teofilo Dobson PA, PA Attending physician Active Start: March 31, 2025 End: March 31, 2025 Teofilo Dobson PA, PA Referring Provider Active Start: March 31, 2025 End: March 31, 2025 Team Status: Active Member Role/Relationship Status Dates Dr. Liliam Alaniz MD Primary care physician Active Start: March 31, 2025 Teofilo Dobson PA, PA Referring Provider Active Start: March 31, 2025 Teofilo Dobson PA, PA Nurse Practitioner Active Start: March 31, 2025 Dr. Sterling Thapa MD Attending physician Active Start: March 31, 2025 Team Status: Inactive Member Role/Relationship Status Dates Dr. Liliam Alaniz MD Primary care physician Active Start: April 08, 2025 End: April 08, 2025 Dr. Liliam Alaniz MD Referring Provider Active Start: April 08, 2025 End: April 08, 2025 Teofilo Dobson PA, PA Attending physician Active Start: April 08, 2025 End: April 08, 2025 Reason for Visit (unrecogniz ed section [...] INCMPTNT VEINS SCLEROTHERAPY Tuyet Golden, DO [address] [id number] Tuyet Golden, DO [address] [place] [address] Referral ID Status Reason Start Date Expiration Date Visits Re quested Visits Authorized [id number] Closed 11/11/2022 02/09/2023 1 1 Reason Onset [...] Request 12/09/2024 Reason Comments 6 month f/up Reason Comments IV site pain Left forearm x 2 day s with fever Reason Comments Hospital Follow Up INFORMATION SOURCE (unrecogn ized section and content) DATE CREATED AUTHOR 02/23/2025 [facility] DATE CREATED AUTHOR AUTHOR'S ORGANIZ ATION 04/09/2025 [facility] DATE CREATED AUTHOR AUTHOR'S ORGANSHARON ATION 04/11/2025 [facility] FOR RECORDS PERTAINING TO PATIENTS WHO ARE [...] BE BASED ON THE PRIMARY CLINICAL RECORDS. [employer] [facility]. provides no warranty or guarantee of the accuracy or completeness of information in this document.
--- NOTE | 2025-04-17 08:59 | CL.D_ITS ---
Patient Name: WINSTON OHARA Study Date: 04/17/2025 Performing: Sterling Thapa MD Ht: 64 inches 162.56 cm : 1950 Wt: 152.01 lbs 68.95 kg Age: 75 Gender: female BSA: 1.74 PROCEDURE(S) PERFORMED [id number])[facility] CLINICAL PROFILE AND INDICATIONS Indications: Suspected CAD Heart Failure: None Stress/Imaging Date: 03/24/25 CAD Presentations: Symptom unlikely to be ischemic. CONCLUSIONS Normal coronary arteries RECOMMENDATIONS Proceed with Afib ablation DESCRIPTION OF PROCEDURE The patient arrived to the procedure lab. The risks and benefits of the procedure as well as a full description of our services here and current unavailability of surgical backup were fully explained to the patient and/or their significant other prior to the catheterization. The Timeout was completed, verifying the correct patient and procedure. The patient's procedural site was prepped and draped in the usual fashion. Local anesthetic was given subcutaneously to right radial region with Lidocaine 2%. Using a modified Seldinger technique, arterial access was obtained via the right radial artery, a 6Fr sheath was inserted. Left Coronary Artery selective angiography was performed in multiple views using a 5 Fr. 4.0 [place] catheter. Right Coronary Artery selective angiography was then performed in multiple views using a 5 Fr. 4.0 [place] catheter.The arterial sheath was pulled and manual compression applied until hemostasis is achieved. - 10cc air CORONARY ANGIOGRAPHY DOMINANCE: Right Dominant LEFT MAIN: Angiographically normal LEFT ANTERIOR DESCENDING ARTERY: Angiographically normal CIRCUMFLEX ARTERY: Angiographically normal RIGHT CORONARY ARTERY: Angiographically normal COMPLICATIONS No Complications PROCEDURE MEDICATIONS Versed 1 mg IV Fentanyl 50 mcg IV Versed 1 mg IV Oxygen: 2 L/min via nasal cannula SUMMARY OF HEMODYNAMIC DATA Time AIR REST ECG 07:24:33 AO 99/56 (76) SA 08:46:29 Signed By Sterling Thapa MD On 04/17/2025 08:58:32 Sterling Thapa MD
== END 2025-04-17 14:10 | disposition home or self-care (01) ==
PROVIDERS: Physician Assistant Medical; PCP Internal Medicine; Referring Provider Internal Medicine Cardiovascular Disease; Visit Provider Internal Medicine Cardiovascular Disease
DX: I48.92 Unspecified atrial flutter (principal); I48.19 Other persistent atrial fibrillation; I48.0 Paroxysmal atrial fibrillation; I10 Essential (primary) hypertension; Z90.5 Acquired absence of kidney; Z79.01 Long term (current) use of anticoagulants; Z79.899 Other long term (current) drug therapy; Z87.891 Personal history of nicotine dependence; R94.39 Abnormal result of other cardiovascular function study; R00.1 Bradycardia, unspecified
CPT/HCPCS: 36415; 80048; 85025; 85610; 85730; 93454; 99152; 99153; Q9967; C1894